=== PATIENT | female | born 1955 | race Caucasian/White ===

== ENCOUNTER 2016-07-02 12:37 | Observation (INO) | payer BC ==
[2016-07-02] MEDS ORDERED: METOCLOPRAMIDE 5 MG/ML 2 ML VIAL IVP STA (13:13)
[2016-07-02] MEDS ORDERED: SODIUM CHLORIDE 0.9% 500 ML IV STA (13:13)
[2016-07-02] MEDS ORDERED: SODIUM CHLORIDE 0.9% 1,000 ML IV STA (13:13)
[2016-07-02] MEDS ORDERED: HYDROmorphone 1 MG/ML 1 ML SYRINGE IVP STA (13:13)
--- NOTE | 2016-07-02 13:25 | ED ---
General Adult HPI - General Chief complaint: Headache Stated complaint: Headache Time Seen by Provider: 07/02/16 13:03 Source: patient, family, RN notes reviewed, old records reviewed Mode of arrival: wheelchair Limitations: no limitations - History of Present Illness Initial comments: If complaint and history of present illness a 16-year-old female with complaint of nausea vomiting headache for 2 days. A lot of pain to the left mastoid region. She reports she has had surgery on that ear in the past. States the headache started at the same time ears started hurting. No drainage. Denies fever. She does have mildly increased headache when she flexes her neck. Patient states she is to have migraine headaches 30 years ago but none since then. No injuries. - Related Data Home Medications Medication Instructions Recorded Confirmed Lisinopril-Hctz 10-12.5 mg 1 tab PO DAILY 11/24/14 07/02/16 [Zestoretic 10-12.5] Previous Rx's Medication Instructions Recorded Atorvastatin [Lipitor] 80 mg PO HS #30 tab 04/26/16 Metoprolol Succinate (ER) [Toprol 25 mg PO DAILY #30 tab.er.24h 04/26/16 XL] Allergies Allergy/AdvReac Type Severity Reaction Status Date / Time Iodinated Contrast Media - Allergy Severe Anaphylaxis Verified 07/02/16 13:27 Oral and [Iodinated Contrast Media - IV Dye] Review of Systems ROS Statement: Those systems with pertinent positive or pertinent negative responses have been documented in the HPI. Review of systems. Photophobia with headache and significant discomfort to the left mastoid region. No shortness of breath or difficulty breathing nausea and vomiting with the headache. No diarrhea. No neuro deficits but being dizzy with the headache and movement. All systems reviewed Past medical problems significant for coronary disease with cardiac catheterization but no stents placed. Hypertension, osteoarthritis, sleep apnea , she reports is ALLERGIC to iodine contrast but has had it after being pretreated. Surgeries glucose ectopy, left ear surgery several times. Hysterectomy, arthroscopic surgery to the knees. Family history father had throat cancer. She does not smoke does not drink. ROS Other: All systems not noted in ROS Statement are negative. Past Medical History Past Medical History: Coronary Artery Disease (CAD), Hypertension, Osteoarthritis (OA), Sleep Apnea/CPAP/BIPAP Additional Past Medical History / Comment(s): States she is allergic to smoke, also states she has 50% heart blockage. History of Any Multi-Drug Resistant Organisms: None Reported Past Surgical History: Cholecystectomy, Ear Surgery, Heart Catheterization, Hysterectomy, Orthopedic Surgery Additional Past Surgical History / Comment(s): R knee surgery, colonoscopy. Past Anesthesia/Blood Transfusion Reactions: Postoperative Nausea & Vomiting ( PONV) Past Psychological History: No Psychological Hx Reported Smoking Status: Never smoker Past Alcohol Use History: None Reported Past Drug Use History: None Reported - Past Family History Father Family Medical History: Cancer Additional Family Medical History / Comment(s): Throat Mother Family Medical History: Liver Disease General Exam - General Exam Comments Initial Comments: General: The patient is awake and alert, appears uncomfortable because of painheadache and left mastoid any which started 2 days ago. Nausea vomiting and dizziness with movement. Vital signs shows temperature 97.8 pulse 98 her story rate 18 pulse ox 99% room air blood pressure 100/52Eye: Pupils are equal, round and reactive to light, extra-ocular movements are intact ; there is normal conjunctiva bilaterally. No signs of icterus. Patient does have photophobia with her headache. Ears, nose, mouth and throat: There are moist mucous membranes and no oral lesions. Left mastoid pain. No evidence of any bruising to the skin. Neck: The neck is supple, there is no tenderness or JVD. Patient has pain to the left mastoid area and left ear. Left and right ear examined no evidence of any drainage or infection. Tenderness with palpation of the left mastoid. Cardiovascular: There is a regular rate and rhythm. No murmur, rub or gallop is appreciated. Respiratory: Lungs are clear to auscultation, respirations are non-labored, breath sounds are equal. No wheezes, stridor, rales, or rhonchi. Gastrointestinal: Soft, non-distended, non-tender abdomen without masses or organomegaly noted. There is no rebound or guarding present. No CVA tenderness. Bowel sounds are unremarkable. Back: There is no tenderness to palpation in the midline. There is no obvious deformity. No rashes noted. Musculoskeletal: Normal ROM, no tenderness, There is no pedal edema. There is no calf tenderness or swelling. Sensation intact. Pulses equal bilaterally 2+. Neurological: CN II-XII intact, There are no obvious motor or sensory deficits. Coordination appears grossly intact. Speech is normal. no focal or lateralizing deficits. She does have migraine type headache with photophobia. Nausea and vomiting. Skin: Skin is warm and dry and no rashes or lesions are noted. Limitations: no limitations Course Vital Signs 07/02/16 07/02/16 12:58 14:53 Temperature 97.8 F Pulse Rate 98 91 Respiratory 18 18 Rate Blood Pressure 100/52 90/48 O2 Sat by Pulse 99 95 Oximetry Medical Decision Making - Medical Decision Making Medical decision making; patient's white count is 4.6 hemoglobin 12 hematocrit of 36, potassium 4.1 with a BUN 30 creatinine 1.7 and GFR of only 30. Glucose is 118. Patient states she is feeling better with IV fluids and pain medication. Patient had dedicated CAT scan of the mastoid air cells because of left ear pain and previous surgery and area discomfort behind the left ear. The radiologist's final impression is no evidence of a CP angle mass lesion on this noncontrast study as read by Dr. Stone CT of the brain was done as well entire report was reviewed his final impression is no acute intracranial abnormality. Mild, chronic white matter ischemic change. Chronic mucoperiosteal thickening involving the anterior ethmoidal air cells. As read by Dr. Stone - Lab Data Result diagrams: 07/02/16 13:40 07/02/16 13:40 Lab Results 07/02/16 07/02/16 Range/Units 13:40 13:40 WBC 4.6 (3.8-10.6) k/uL RBC 3.95 (3.80-5.40) m/uL Hgb 12.1 (11.4-16.0) gm/dL Hct 36.6 (34.0-46.0) % MCV 92.6 (80.0-100.0) fL MCH 30.7 (25.0-35.0) pg MCHC 33.1 (31.0-37.0) g/dL RDW 13.6 (11.5-15.5) % Plt Count 198 (150-450) k/uL Neutrophils % 55 % Lymphocytes % 30 % Monocytes % 7 % Eosinophils % 4 % Basophils % 1 % Neutrophils # 2.5 (1.3-7.7) k/uL Lymphocytes # 1.4 (1.0-4.8) k/uL Monocytes # 0.3 (0-1.0) k/uL Eosinophils # 0.2 (0-0.7) k/uL Basophils # 0.0 (0-0.2) k/uL Sodium 142 (137-145) mmol/L Potassium 4.1 (3.5-5.1) mmol/L Chloride 103 (98-107) mmol/L Carbon Dioxide 25 (22-30) mmol/L Anion Gap 14 mmol/L BUN 30 H (7-17) mg/dL Creatinine 1.74 H (0.52-1.04) mg/dL Est GFR (MDRD) Af Amer 36 (>60 ml/min/1.73 sqM) Est GFR (MDRD) Non-Af 30 (>60 ml/min/1.73 sqM) Glucose 118 H (74-99) mg/dL Calcium 9.7 (8.4-10.2) mg/dL Total Bilirubin 0.7 (0.2-1.3) mg/dL AST 38 H (14-36) U/L ALT 48 (9-52) U/L Alkaline Phosphatase 68 (38-126) U/L Total Protein 7.1 (6.3-8.2) g/dL Albumin 4.1 (3.5-5.0) g/dL Disposition Clinical Impression: Status migrainosus Disposition: ADMITTED IP TO THIS [facility] Condition: Stable
--- NOTE | 2016-07-02 14:06 | CT ---
EXAMINATION TYPE: CT brain wo con DATE OF EXAM: 07/02/2016 1:58 PM COMPARISON: NONE HISTORY: Severe WORRELL, Lt ear pain CT DLP: 1222.3 mGycm Automated exposure control for dose reduction was used. FINDINGS: Central structures are midline. There is no evidence of hydrocephalus. There is mild, diffuse periven tricular white matter lucency, compatible with chronic white matter ischemic change. There is no acut e focal lesion, mass effect or midline shift identified. I do not see evidence of intracranial blood There is chronic mucoperiosteal thickening involving the anterior ethmoidal air cells. No depressed s kull fracture is seen. IMPRESSION: 1. NO ACUTE INTRACRANIAL ABNORMALITY. 2. MILD, CHRONIC WHITE MATTER ISCHEMIC CHANGE. 3. CHRONIC MUCOPERIOSTEAL THICKENING INVOLVING THE ANTERIOR ETHMOIDAL AIR CELLS.
[2016-07-02 14:10] LABS: Basophils % (A) 1 %; CH 31.5; CHCM 34.2; Eosinophils # (A) 0.2 k/uL (0-0.7); Eosinophils % (A) 4 %; HCT 36.6 % (34.0-46.0); HDW 3.14; HGB 12.1 gm/dL (11.4-16.0); Luc # (Auto) 0.19; Luc % (Auto) 4; Lymphocytes # (A) 1.4 k/uL (1.0-4.8); Lymphocytes % (A) 30 %; MCH 30.7 pg (25.0-35.0); MCHC 33.1 g/dL (31.0-37.0); MCV 92.6 fL (80.0-100.0); Mean Platelet Volume 7.9; Monocytes # (A) 0.3 k/uL (0-1.0); Monocytes % (A) 7 %; Neutrophils # (A) 2.5 k/uL (1.3-7.7); Neutrophils % (A) 55 %; RBC 3.95 m/uL (3.80-5.40); RDW 13.6 % (11.5-15.5); WBC 4.6 k/uL (3.8-10.6); WBC (Perox) 4.89
--- NOTE | 2016-07-02 14:10 | CT ---
EXAMINATION TYPE: CT lac wo con DATE OF EXAM: 07/02/2016 1:58 PM COMPARISON: NONE HISTORY: Severe WORRELL, Lt ear pain CT DLP: 1222.3mGycm Automated exposure control for dose reduction was used. FINDINGS: Visualized portions of the paranasal sinuses and mastoids are clear. Middle and inner ear s tructures appear normal. There is no widening of the porus acusticus on either side. No bony destruct rosemarie lesion is seen. No soft tissue CP angle mass lesion is identified on this noncontrast study. IMPRESSION: NO EVIDENCE OF A CP ANGLE MASS LESION ON THIS NONCONTRAST STUDY.
[2016-07-02 14:31] LABS: Calcium 9.7 mg/dL (8.4-10.2); Potassium 4.1 mmol/L (3.5-5.1); Total Bilirubin 0.7 mg/dL (0.2-1.3); Total Protein 7.1 g/dL (6.3-8.2)
[2016-07-02] MEDS ORDERED: ONDANSETRON 4 MG/2 ML VIAL IVP PRN (16:06)
[2016-07-02] MEDS ORDERED: NALOXONE 0.4 MG/ML 1 ML VIAL IV PRN (16:06)
[2016-07-02] MEDS ORDERED: HYDROmorphone 1 MG/ML 1 ML SYRINGE IV PRN (16:06)
[2016-07-02] MEDS: SODIUM CHLORIDE 0.9% 1,000 ML IV SCH (17:06)
[2016-07-02] MEDS: ACETAMINOPHEN TAB 325 MG TAB PO PRN (18:26)
[2016-07-03 07:21] LABS: Basophils % (A) 1 %; CH 31.2; CHCM 33.3; Eosinophils # (A) 0.3 k/uL (0-0.7); Eosinophils % (A) 6 %; HCT 34.3 % (34.0-46.0); HDW 3.21; HGB 11.3 gm/dL (11.4-16.0); Luc # (Auto) 0.12; Luc % (Auto) 3; Lymphocytes # (A) 1.9 k/uL (1.0-4.8); Lymphocytes % (A) 43 %; MCH 31.2 pg (25.0-35.0); MCHC 33.1 g/dL (31.0-37.0); MCV 94.3 fL (80.0-100.0); Mean Platelet Volume 7.5; Monocytes # (A) 0.2 k/uL (0-1.0); Monocytes % (A) 5 %; Neutrophils # (A) 1.9 k/uL (1.3-7.7); Neutrophils % (A) 43 %; RBC 3.63 m/uL (3.80-5.40); RDW 13.6 % (11.5-15.5); WBC 4.4 k/uL (3.8-10.6); WBC (Perox) 4.34
[2016-07-03 07:38] LABS: Calcium 8.9 mg/dL (8.4-10.2); Potassium 3.8 mmol/L (3.5-5.1); Total Bilirubin 0.5 mg/dL (0.2-1.3); Total Protein 6.4 g/dL (6.3-8.2)
[2016-07-03 08:42] VITALS: RESP 16
[2016-07-03] MEDS ORDERED: PANTOPRAZOLE 40 MG/10 ML VIAL IV SCH (09:00)
[2016-07-03] MEDS ORDERED: LISINOPRIL-HCTZ 10-12.5 MG 1 EACH TAB PO SCH (09:00)
[2016-07-03] MEDS ORDERED: METOPROLOL SUCCINATE (ER) 25 MG TAB.ER.24H PO SCH (09:00)
--- NOTE | 2016-07-03 09:59 | P.NPCON ---
History of Present Illness - Reason for Consult acute renal failure - Chief Complaint worrell - History of Present Illness came in with severe WORRELL Left occipital radiating to front of head. Associated with n/v x 3 days. Last migrane was 30 years ago. Imaging negative. Creat was 1.7 and has been getting IVFs and creat improved to 1.2. Her baseline is 1.0. Migranes are better. Review of Systems All systems: negative Constitutional: Reports as per HPI Past Medical History Past Medical History: Coronary Artery Disease (CAD), Deep Vein Thrombosis (DVT) , GERD/Reflux, Hyperlipidemia, Hypertension, Osteoarthritis (OA), Sleep Apnea/ CPAP/BIPAP Additional Past Medical History / Comment(s): States she is allergic to smoke, also states she has 50% heart blockage.stress test , diverticular disease ,kidney stone, pt stated decreased appetite,has lost approx 50# over last 4 months. History of Any Multi-Drug Resistant Organisms: None Reported Past Surgical History: Cholecystectomy, Ear Surgery, Heart Catheterization, Hysterectomy, Orthopedic Surgery Additional Past Surgical History / Comment(s): R knee surgery, colonoscopy. Past Anesthesia/Blood Transfusion Reactions: Postoperative Nausea & Vomiting ( PONV) Past Psychological History: No Psychological Hx Reported Smoking Status: Never smoker Past Alcohol Use History: None Reported Past Drug Use History: None Reported - Past Family History Father Family Medical History: Cancer Additional Family Medical History / Comment(s): Throat Mother Family Medical History: Liver Disease Medications and Allergies Home Medications Medication Instructions Recorded Confirmed Type Lisinopril-Hctz 10-12.5 mg 1 tab PO DAILY 11/24/14 07/02/16 History [Zestoretic 10-12.5] Allergies Allergy/AdvReac Type Severity Reaction Status Date / Time Iodinated Contrast Media - Allergy Severe Anaphylaxis Verified 07/02/16 13:27 Oral and [Iodinated Contrast Media - IV Dye] Physical Exam Vitals: Vital Signs Temp Pulse Pulse Resp BP BP BP 07/03/16 07:50 98.2 F 54 L 16 113/57 07/03/16 04:00 97.9 F 85 18 97/61 07/03/16 00:00 18 07/02/16 21:30 94/53 07/02/16 20:00 18 07/02/16 19:45 98.5 F 94 18 78/52 83/51 07/02/16 18:00 98.2 F 96 18 94/40 07/02/16 17:42 97.6 F 88 20 105/56 07/02/16 17:07 98 18 97/68 Pulse Ox 07/03/16 07:50 97 07/03/16 04:00 97 07/03/16 00:00 07/02/16 21:30 07/02/16 20:00 07/02/16 19:45 94 L 07/02/16 18:00 99 07/02/16 17:42 95 07/02/16 17:07 95 Intake and Output 07/02/16 07/03/16 07/03/16 22:59 06:59 14:59 Intake Total 500 Balance 500 Intake: Amount of Fluid Infused ( 500 ml) Other: # Voids 1 Weight 87.9 kg - Constitutional General appearance: cooperative, no acute distress - Respiratory Respiratory: bilateral: CTA - Cardiovascular Rhythm: regular Heart sounds: normal: S1, S2 leg Peripheral Edema: bilateral: None - Gastrointestinal General gastrointestinal: soft Results - Lab Results Most recent lab results Calcium 8.9 mg/dL (8.4-10.2) 07/03/16 06:28 07/03/16 06:28 07/03/16 06:28 Assessment and Plan Plan: 1. Nonoliguric LARISSA due to volume depletion --improving. 2. Acute Migranes 3. HTN Plan: 1. OK for discharge. 2. OK to continue lisinopril/HCTZ
[2016-07-03] MEDS: ACETAMINOPHEN TAB 325 MG TAB PO PRN (10:19)
[2016-07-03 15:34] VITALS: BMI 37.8
[2016-07-03] MEDS ORDERED: guaiFENesin SYRUP 100MG/5ML 200 MG/10 ML CUP PO PRN (16:50)
[2016-07-03 17:02] VITALS: BP 103/62; PULSE 75; TEMP 99.1
[2016-07-03] MEDS: SODIUM CHLORIDE 0.9% 1,000 ML IV SCH (17:17)
--- NOTE | 2016-07-04 13:12 | HP ---
DATE OF ADMISSION: Migraine headache about 30 years ago, came to the hospital with complaints of headache, along with nausea and vomiting for the past 2 days. Patient apparently has been congested and nasal congestion as well. No associated fever or chills. No recent illness. Patient denied any sick contacts at home. No recent travel. Patient, otherwise, denied any complaints of chest pain, short of breath. Headache is mainly in the frontal area. Patient does have some photophobia when she came to the hospital. No ( ) observed as per the patient. Denied any recent illnesses. Patient did have migraine headaches about 30 years ago but since then she is not taking any medications now. Patient does high blood pressure medications. Patient was also found to have acute kidney injury, most likely prerenal with elevated creatinine level to 1.7 which improved with IV hydration. Nephrology has been consulted as well. Otherwise, the patient symptomatically improved today. REVIEW OF SYSTEMS: CONSTITUTIONAL: No fever. No chills. No weakness or malaise. RESPIRATORY: No cough or sputum production. Patient does have chest condition. No short of breath. CARDIOVASCULAR: No chest pain. No leg swelling. ABDOMEN: No nausea, vomiting or abdominal pain. GENITOURINARY: Negative. ENDOCRINE: Negative. NEUROLOGIC: Patient does have frontal headache, no neck stiffness. No numbness, tingling, no weakness. PSYCHIATRIC: Negative. SKIN: Negative. MUSCULOSKELETAL: Negative. All other all other 14-point review of systems negative except as above. PAST MEDICAL HISTORY: Coronary artery disease, hypertension, osteoarthritis, sleep apnea on CPAP. Patient is allergic to SMOKE, states that she has a 50% heart blockage. PAST SURGICAL HISTORY: Cardiac catheterization, ( ) cholecystectomy, ear surgery, hysterectomy, right knee surgery, colonoscopy. SOCIAL HISTORY: Never a smoker. Denied any alcohol. Denied any drugs or IVDU. FAMILY HISTORY: Father had throat cancer and mother had liver disease. Allergies include IODINATED CONTRAST. HOME MEDICATION: 1. Atorvastatin. 2. Metoprolol. 3. Lisinopril-hydrochlorothiazide. PHYSICAL EXAMINATION: A 60-year-old female lying in bed comfortably. Awake, alert, oriented x3, appears to be in no apparent distress. VITALS: Blood pressure is 97/61, pulse is 85, respirations 18, temperature afebrile, pulse ox 97% on room air. HEENT: Atraumatic, normocephalic. Neck is supple. No JVD. CVS EXAM: S1, S2 heard. No murmurs, no gallop, no rub. LUNGS: Bilateral air entry is present, no wheeze, no crackles. Abdomen is soft, nontender, bowel sounds present. NEURO: Patient is awake, alert, oriented x3. No focal deficits. Cranial nerves are grossly intact. EXTREMITIES: No edema. Pulses are palpable bilaterally, no clubbing or cyanosis. PSYCHIATRIC: Cooperative. LABORATORY DATA: WBC 4.6, hemoglobin 12.1, platelets of 198. Sodium 142, potassium 4.1, chloride 103, bicarb is 25. BUN 30, creatinine 1.74. GFR is 36, AST 38, ALT is 48, total protein is 7.1, albumin 4.1. Internal artery canal CT, no evidence of CP angle mass lesion on this noncontrast study. CT head no acute intracranial abnormality, mild chronic white matter ischemic change. Chronic mucoperiosteal thickening involving anterior ethmoidal air cells. IMPRESSION: 1. Headache most likely sinus headache, unlikely migrainous headache at this time. 2. Acute kidney injury, most likely prerenal. 3. Acute on chronic kidney disease stage III. 4. Hypertension. 5. History of migraine headache 30 years ago. 6. Morbid obesity with a body mass index of 37.8. 7. Deep venous thrombosis prophylaxis. DISCUSSION AND PLAN: A 60-year-old female admitted to the hospital with headache, nausea, vomiting. Will continue with the same medication for nausea, vomiting, will continue with IV fluids and continue with the pain management for headache. Patient will be given nasal decongestants and follow up closely. Nephrology has been consulted for evaluation for acute kidney injury. Will continue current management and further recommendations based on the clinical course.
--- NOTE | 2016-07-05 10:16 | DS ---
DATE OF ADMISSION: 07/02/2016 DATE OF DISCHARGE: 07/03/2016 DISCHARGE DIAGNOSES: 1. Sinus headache, improved at this time. 2. Intractable nausea and vomiting, improved now. 3. Acute kidney injury. 4. Acute on chronic kidney disease Stage III. 5. Hypertension. Blood pressure is controlled at this time. 6. History of migraine headaches ( ) years ago. 7. Morbid obesity with body mass index of 37.8. HOSPITAL COURSE: Ms. Smalls is a 60-year-old female with known history of hypertension, was admitted to the hospital with headache. Patient did have work-up including CT head in ( ) auditory canal CT showed no evidence of acute changes or mass noted. Patient was ( ) for nausea and vomiting. Patient was continued on nasal decongestants. The patient symptomatically improved today. Able to tolerate p.o. diet and headache is much improved now. No nausea or vomiting at this time. The patient was seen by nephrology for acute on chronic kidney disease. The patient hydrated well and renal functions improved with creatinine improved from 1.7 to 1.2. Since the patient is clinically improved as well, patient will be discharged home and follow with primary care physician as an outpatient. Patient was taking hydrochlorothiazide and Lisinopril combination. Hydrochlorothiazide will be discontinued at this time and follow with primary care physician. We will continue with Lisinopril only. Discharge physical examination: 60 -year-old female lying in bed comfortably, awake, alert, oriented, x3. Appears to be in no apparent distress. VITAL SIGNS: Blood pressure is 103/62, pulse is 75, respiratory rate 16, temperature afebrile, pulse ox 97% on room air. LABORATORY DATA: Reviewed. Discharge physical examination done. Discharge medications include: 1. Atorvastatin 80 mg p.o. at bedtime. 2. Metoprolol Toprol-XL 20 mg p.o. daily. 3. Lisinopril 10 mg p.o. daily. The patient will be discharge home in stable condition. Activity as tolerated. Heart healthy diet. Follow with Dr. Frederic North in one to two days.
== END 2016-07-03 19:00 | disposition home or self-care (01) ==
LOC: EC 12:37 → 3OBS 16:06
PROVIDERS: ADMIT Family Medicine; ATTEND Family Medicine
DX: R51 Headache (principal); I12.9 Hypertensive chronic kidney disease with stage 1 through stage 4 chronic kidney disease, or unspecified chronic kidney disease; N18.3 Chronic kidney disease, stage 3 (moderate); N17.9 Acute kidney failure, unspecified; E86.9 Volume depletion, unspecified; E66.01 Morbid (severe) obesity due to excess calories; Z68.37 Body mass index [BMI] 37.0-37.9, adult; R09.81 Nasal congestion; R11.2 Nausea with vomiting, unspecified; M19.90 Unspecified osteoarthritis, unspecified site; G47.30 Sleep apnea, unspecified; K21.9 Gastro-esophageal reflux disease without esophagitis; I25.10 Atherosclerotic heart disease of native coronary artery without angina pectoris; Z86.718 Personal history of other venous thrombosis and embolism; Z79.899 Other long term (current) drug therapy; Z91.041 Radiographic dye allergy status; Z99.89 Dependence on other enabling machines and devices; Z80.8 Family history of malignant neoplasm of other organs or systems
CPT/HCPCS: 36415; 80053 ×2; 85025 ×2; 70450; 70480; 99285; 96374; 96375; 96361 ×3; G0378 ×2; J2765; J1170; C9113

== ENCOUNTER → 2016-08-13 | Outpatient (CLI) | payer BC ==
--- NOTE | 2016-08-13 14:23 | XR ---
EXAMINATION TYPE: XR cervical spine comp DATE OF EXAM: 08/13/2016 1:50 PM COMPARISON: NONE HISTORY: Osteoarthritis. Left-sided head and neck TECHNIQUE: 5 view cervical spine FINDINGS: Foramen are patent. Prevertebral space is normal. Disc heights are preserved. Vertebral bod y heights are preserved. Tip of the odontoid is limited due to overlying occiput. IMPRESSION: 1. Cervical spine is visualized appears normal
== END ==
LOC: RADXRMAIN 13:37
PROVIDERS: ATTEND Otolaryngology
DX: M47.812 Spondylosis without myelopathy or radiculopathy, cervical region (principal)
CPT/HCPCS: 72050

== ENCOUNTER → 2017-04-28 | Outpatient (CLI) | payer BC | END | disposition home or self-care (01) | LOC: LABPAT 12:45 | PROVIDERS: ATTEND Orthopaedic Surgery | DX: Z01.812 Encounter for preprocedural laboratory examination (principal) | CPT/HCPCS: 87070 ==

== ENCOUNTER 2017-08-08 19:18 | Emergency (ER) | payer BC ==
[2017-08-08] MEDS ORDERED: IBUPROFEN 600 MG TAB PO STA (20:13)
[2017-08-08] MEDS ORDERED: ACETAMINOPHEN TAB 500 MG TAB PO STA (20:13)
[2017-08-08 20:43] LABS: Basophils # (A) 0.1 k/uL (0-0.2); Basophils % (A) 1 %; Eosinophils # (A) 0.4 k/uL (0-0.7); Eosinophils % (A) 5 %; HCT 36.1 % (34.0-46.0); Lymphocytes # (A) 2.5 k/uL (1.0-4.8); Lymphocytes % (A) 33 %; MCH 30.2 pg (25.0-35.0); MCHC 33.4 g/dL (31.0-37.0); MCV 90.4 fL (80.0-100.0); Mean Platelet Volume 7.8; Monocytes # (A) 0.5 k/uL (0-1.0); Monocytes % (A) 6 %; Neutrophils # (A) 4.2 k/uL (1.3-7.7); Neutrophils % (A) 54 %; Platelet Count 248 k/uL (150-450); RBC 3.99 m/uL (3.80-5.40); WBC 7.7 k/uL (3.8-10.6)
--- NOTE | 2017-08-08 20:44 | ED ---
General Adult HPI - General Chief complaint: Recheck/Abnormal Lab/Rx Stated complaint: poss infection Time Seen by Provider: 08/08/17 19:40 Source: patient, RN notes reviewed Mode of arrival: wheelchair Limitations: no limitations - History of Present Illness Initial comments: This is a 61-year-old female presents emergency department stating that she had a knee replacement in May. Patient comes in today because she states her right knee is bent much worse painful than normal over the last week she states it is so in full when she tries to move it. Patient states earlier in the day she felt as though her right knee was very hot though wasn't red. Patient states currently she feels like the temperature is gone down. Patient also complains of a sore throat. Patient denies any difficulty breathing shortness of breath per patient denies any cough. Patient denies any chest pain or palpitations per patient denies headache patient denies numbness weakness. Patient denies any abdominal pain patient denies nausea vomiting diarrhea. Patient denies any fevers or chills. - Related Data Home Medications Medication Instructions Recorded Confirmed Celecoxib [CeleBREX] 200 mg PO DAILY 05/13/17 05/25/17 Furosemide [Lasix] 20 mg PO DAILY 05/13/17 05/25/17 Lisinopril-Hctz 10-12.5 mg 1 tab PO QAM 05/13/17 05/25/17 [Zestoretic 10-12.5] traMADol HCL [Ultram] 50 mg PO Q6HR PRN 05/13/17 05/25/17 HYDROcodone/APAP 7.5-325MG [[place] 1 - 2 tab PO Q6HR PRN 05/25/17 05/25/17 7.5] Previous Rx's Medication Instructions Recorded Aspirin 325 mg PO BID #60 tab 05/17/17 Docusate [Colace] 100 mg PO DAILY #30 capsule 05/17/17 Famotidine [Pepcid] 20 mg PO DAILY #30 tablet 05/17/17 Lactulose 20 gm PO DAILY 2 Days 05/25/17 Allergies Allergy/AdvReac Type Severity Reaction Status Date / Time Iodinated Contrast- Oral and Allergy Severe Anaphylaxis Verified 08/08/17 19:47 IV Dye [Iodinated Contrast Media - IV Dye] Review of Systems ROS Statement: Those systems with pertinent positive or pertinent negative responses have been documented in the HPI. ROS Other: All systems not noted in ROS Statement are negative. Past Medical History Past Medical History: Coronary Artery Disease (CAD), Deep Vein Thrombosis (DVT) , GERD/Reflux, Hyperlipidemia, Hypertension, Osteoarthritis (OA), Sleep Apnea/ CPAP/BIPAP Additional Past Medical History / Comment(s): no cpap, diverticular disease, kidney stone,no cpap History of Any Multi-Drug Resistant Organisms: None Reported Past Surgical History: Cholecystectomy, Ear Surgery, Heart Catheterization, Hysterectomy, Orthopedic Surgery Additional Past Surgical History / Comment(s): R knee surgery, colonoscopy. Past Anesthesia/Blood Transfusion Reactions: Postoperative Nausea & Vomiting ( PONV) Past Psychological History: No Psychological Hx Reported Smoking Status: Never smoker Past Alcohol Use History: None Reported Past Drug Use History: None Reported - Past Family History Father Family Medical History: Cancer Additional Family Medical History / Comment(s): Throat,brain Mother Family Medical History: Liver Disease General Exam - General Exam Comments Initial Comments: GENERAL: Patient is well-developed and well-nourished. Patient is nontoxic and well- hydrated and is in no acute distress. ENT: Neck is soft and supple. No significant lymphadenopathy is noted. Oropharynx is clear. Moist mucous membranes. Neck has full range of motion without eliciting any pain. EYES: The sclera were anicteric and conjunctiva were pink and moist. Extraocular movements were intact and pupils were equal round and reactive to light. Eyelids were unremarkable. PULMONARY: Unlabored respirations. Good breath sounds bilaterally. No audible rales rhonchi or wheezing was noted. CARDIOVASCULAR: There is a regular rate and rhythm without any murmurs gallops or rubs. Femoral pulses are equal bilaterally ABDOMEN: Soft and nontender with normal bowel sounds. No palpable organomegaly was noted. There is no palpable pulsatile mass. SKIN: Skin is clear with no lesions or rashes and otherwise unremarkable. NEUROLOGIC: Patient is alert and oriented x3. Cranial nerves II through XII are grossly intact. Motor and sensory are also intact. Normal speech, volume and content. Symmetrical smile. Cerebellar exam grossly intact. MUSCULOSKELETAL: Normal extremities with adequate strength and full range of motion. No lower extremity swelling or edema. No calf tenderness. LYMPHATICS: No significant lymphadenopathy is noted PSYCHIATRIC: Normal psychiatric evaluation. Normal interpersonal interactions appears functionally intact in deals appropriately with others. No signs of depression. No signs of anxiety. No delusions. No hallucinations. Limitations: no limitations Course Vital Signs 08/08/17 08/08/17 08/08/17 19:42 20:30 21:36 Temperature 98.4 F 99.2 F Pulse Rate 97 98 Respiratory 16 18 Rate Blood Pressure 124/60 119/59 O2 Sat by Pulse 97 99 Oximetry Medical Decision Making - Medical Decision Making EKG shows sinus tachycardia 102 bpm LA interval is 138 QRSs 84 QT interval 352 QTC is 458. Patient's EKG shows no ST segment elevation or depression. X-ray of the knee shows no acute abnormality. - Lab Data Result diagrams: 08/08/17 20:32 08/08/17 20:32 Lab Results 08/08/17 08/08/17 08/08/17 Range/Units 20:32 20:32 20:32 WBC 7.7 (3.8-10.6) k/uL RBC 3.99 (3.80-5.40) m/uL Hgb 12.0 (11.4-16.0) gm/dL Hct 36.1 (34.0-46.0) % MCV 90.4 (80.0-100.0) fL MCH 30.2 (25.0-35.0) pg MCHC 33.4 (31.0-37.0) g/dL RDW 14.0 (11.5-15.5) % Plt Count 248 (150-450) k/uL Neutrophils % 54 % Lymphocytes % 33 % Monocytes % 6 % Eosinophils % 5 % Basophils % 1 % Neutrophils # 4.2 (1.3-7.7) k/uL Lymphocytes # 2.5 (1.0-4.8) k/uL Monocytes # 0.5 (0-1.0) k/uL Eosinophils # 0.4 (0-0.7) k/uL Basophils # 0.1 (0-0.2) k/uL PT (9.0-12.0) sec INR (<1.2) APTT (22.0-30.0) sec Sodium 140 (137-145) mmol/L Potassium 3.7 (3.5-5.1) mmol/L Chloride 101 (98-107) mmol/L Carbon Dioxide 27 (22-30) mmol/L Anion Gap 12 mmol/L BUN 23 H (7-17) mg/dL Creatinine 1.30 H (0.52-1.04) mg/dL Est GFR (MDRD) Af Amer 50 (>60 ml/min/1.73 sqM) Est GFR (MDRD) Non-Af 42 (>60 ml/min/1.73 sqM) Glucose 174 H (74-99) mg/dL Plasma Lactic Acid Woody 1.7 (0.7-2.0) mmol/L Calcium 10.4 H (8.4-10.2) mg/dL Total Bilirubin 0.5 (0.2-1.3) mg/dL AST 24 (14-36) U/L ALT 22 (9-52) U/L Alkaline Phosphatase 73 (38-126) U/L Total Protein 7.4 (6.3-8.2) g/dL Albumin 4.4 (3.5-5.0) g/dL Urine Color Urine Appearance (Clear) Urine pH (5.0-8.0) Ur Specific [place] (1.001-1.035) Urine Protein (Negative) Urine Glucose (UA) (Negative) Urine Ketones (Negative) Urine Blood (Negative) Urine Nitrite (Negative) Urine Bilirubin (Negative) Urine Urobilinogen (<2.0) mg/dL Ur Leukocyte Esterase (Negative) Urine RBC (0-5) /hpf Urine WBC (0-5) /hpf Ur Squamous Epith Cells (0-4) /hpf Urine Bacteria (None) /hpf Hyaline Casts (0-2) /lpf Urine Mucus (None) /hpf Group A Strep Rapid (Negative) 08/08/17 08/08/17 08/08/17 Range/Units 20:32 20:33 21:33 WBC (3.8-10.6) k/uL RBC (3.80-5.40) m/uL Hgb (11.4-16.0) gm/dL Hct (34.0-46.0) % MCV (80.0-100.0) fL MCH (25.0-35.0) pg MCHC (31.0-37.0) g/dL RDW (11.5-15.5) % Plt Count (150-450) k/uL Neutrophils % % Lymphocytes % % Monocytes % % Eosinophils % % Basophils % % Neutrophils # (1.3-7.7) k/uL Lymphocytes # (1.0-4.8) k/uL Monocytes # (0-1.0) k/uL Eosinophils # (0-0.7) k/uL Basophils # (0-0.2) k/uL PT 10.5 (9.0-12.0) sec INR 1.1 (<1.2) APTT 24.0 (22.0-30.0) sec Sodium (137-145) mmol/L Potassium (3.5-5.1) mmol/L Chloride (98-107) mmol/L Carbon Dioxide (22-30) mmol/L Anion Gap mmol/L BUN (7-17) mg/dL Creatinine (0.52-1.04) mg/dL Est GFR (MDRD) Af Amer (>60 ml/min/1.73 sqM) Est GFR (MDRD) Non-Af (>60 ml/min/1.73 sqM) Glucose (74-99) mg/dL Plasma Lactic Acid Woody (0.7-2.0) mmol/L Calcium (8.4-10.2) mg/dL Total Bilirubin (0.2-1.3) mg/dL AST (14-36) U/L ALT (9-52) U/L Alkaline Phosphatase (38-126) U/L Total Protein (6.3-8.2) g/dL Albumin (3.5-5.0) g/dL Urine Color Yellow Urine Appearance Cloudy H (Clear) Urine pH 5.0 (5.0-8.0) Ur Specific [place] 1.015 (1.001-1.035) Urine Protein Negative (Negative) Urine Glucose (UA) Negative (Negative) Urine Ketones Negative (Negative) Urine Blood Negative (Negative) Urine Nitrite Negative (Negative) Urine Bilirubin Negative (Negative) Urine Urobilinogen <2.0 (<2.0) mg/dL Ur Leukocyte Esterase Large H (Negative) Urine RBC 2 (0-5) /hpf Urine WBC 36 H (0-5) /hpf Ur Squamous Epith Cells 19 H (0-4) /hpf Urine Bacteria Rare H (None) /hpf Hyaline Casts 26 H (0-2) /lpf Urine Mucus Occasional H (None) /hpf Group A Strep Rapid Negative (Negative) Disposition Clinical Impression: Right knee pain Disposition: HOME SELF-CARE Condition: Good Referrals: Bar Vázquez MD [STAFF PHYSICIAN] - 1-2 days Time of Disposition: 22:23
[2017-08-08 20:51] LABS: INR 1.1 (<1.2); Prothrombin Time 10.5 sec (9.0-12.0)
[2017-08-08 20:56] LABS: Albumin 4.4 g/dL (3.5-5.0); Calcium 10.4 mg/dL (8.4-10.2); Potassium 3.7 mmol/L (3.5-5.1); Total Bilirubin 0.5 mg/dL (0.2-1.3); Total Protein 7.4 g/dL (6.3-8.2)
--- NOTE | 2017-08-08 21:00 | XR ---
EXAMINATION TYPE: XR knee complete RT DATE OF EXAM: 08/08/2017 COMPARISON: 05/16/2017 HISTORY: Knee pain TECHNIQUE: 3 views FINDINGS: There is a right knee prosthesis. Components are in anatomic position. I see no fracture. T here is subcutaneous edema anteriorly. IMPRESSION: Anterior soft tissue swelling. No fracture. No change in position of the prosthesis mark red to last exam.
[2017-08-08 21:51] LABS: Appearance,Urine Cloudy (Clear); Bacteria,Urine Rare /hpf; Bilirubin,Urine Negative (Negative); Blood,Urine Negative (Negative); Color,Urine Yellow; Glucose,Urine (UA) Negative (Negative); Hyaline Casts,Urine 26 /lpf (0-2); Ketones,Urine Negative (Negative); Leukocyte Esterase,Urine Large (Negative); Mucus,Urine Occasional /hpf; Nitrite,Urine Negative (Negative); Protein,Urine Negative (Negative); RBC,Urine 2 /hpf (0-5); Specific Gravity,Urine 1.015 (1.001-1.035); Squamous Epithelial Cell,Urine 19 /hpf (0-4); Urobilinogen,Urine <2.0 mg/dL (<2.0); WBC,Urine 36 /hpf (0-5)
[2017-08-08 22:48] VITALS: BP 109/55; PULSE 100; RESP 16; TEMP 98.6
== END 2017-08-08 22:48 | disposition home or self-care (01) ==
LOC: EC 19:18
DX: M25.561 Pain in right knee (principal); I25.10 Atherosclerotic heart disease of native coronary artery without angina pectoris; I10 Essential (primary) hypertension; M19.90 Unspecified osteoarthritis, unspecified site; G47.30 Sleep apnea, unspecified; Z99.89 Dependence on other enabling machines and devices; Z79.899 Other long term (current) drug therapy; Z91.041 Radiographic dye allergy status; Z96.651 Presence of right artificial knee joint
CPT/HCPCS: 36415; 80053; 81001; 83605; 85025; 85610; 85730; 87040; 87081; 87086; 87430; 93005; 99284

== ENCOUNTER 2017-08-15 14:32 | Inpatient (IN) | payer BC ==
[2017-08-12 11:03] VITALS: BMI 46.8
--- NOTE | 2017-08-14 14:19 | HP ---
HISTORY AND PHYSICAL REASON FOR ADMISSION: Surgery scheduled for 08/15/2017 HISTORY OF PRESENT ILLNESS: Shalonda Smalls is a 61-year-old patient who had previously undergone right total knee arthroplasty on 05/16/2017. She was doing well, but a couple weeks ago she slipped on some ice injuring the knee. She was seen in the office recently and there was a clinical suspicion for patellar tendon rupture as well as abnormal radiographs. I recommended open repair of the probable patellar tendon rupture. I discussed the procedure, risks, complications, benefits, and recovery all in simple layman's terms. Patient agreed to the procedure. Consent was obtained. She had previously been cleared for her total knee arthroplasty by Dr. North. PAST MEDICAL HISTORY: Hypertension, osteoarthritis. PAST SURGICAL HISTORY: Knee arthroscopy, right total knee arthroplasty, hysterectomy. MEDICATIONS ARE: Furosemide, lisinopril, Celebrex. ALLERGIES: IV DYE. SOCIAL HISTORY: Patient denies tobacco use. PHYSICAL EXAMINATION: Physical evaluation of the right knee shows a well-healed anterior incision. Range of motion is -15 to 90 degrees. There is no effusion appreciated. The previous incision is well healed with no evidence an infective process. Her collateral ligaments are stable. Homans and John are negative. Her distal neurovascular exam is intact. Right knee radiographs revealed stable appearing total knee arthroplasty. The patella appears to be an or elevated position. She had previous labs done, which appeared normal. IMPRESSION: 1. Right knee patellar tendon rupture. 2. History of right total knee arthroplasty. 3. Hypertension. PLAN: Right knee patellar tendon repair. Surgery scheduled for 08/15/2017. MMODL / IJN: [id number] /
[~2017-08-15 14:32] MED LIST: ACETAMINOPHEN TAB 500 MG TAB PO ONE; LIDOCAINE 1% 20 ML VIAL (10MG/ML) FOR IV START INTRADERMA PRN; MELOXICAM 7.5 MG TAB PO ONE; MORPHINE SULFATE 2 MG/ML SYRINGE IV PRN; ONDANSETRON 4 MG/2 ML VIAL IVP ONE; TRANEXAMIC ACID 1,000 MG in SODIUM CHLORIDE 0.9% 50 ML IVPB ONE; ceFAZolin IN SWFI 2 GM/20 ML SYRINGE IVP ONE
[2017-08-15] MEDS: LACTATED RINGERS 1,000 ML IV SCH (15:39)
[2017-08-15] MEDS ORDERED: MIDAZOLAM 2 MG/2 ML VIAL IV ONE (15:51)
[2017-08-15] MEDS ORDERED: ROPIVACAINE 246.25 MG, EPINEPHrine 0.5 MG, KETOROLAC 30 MG, cloNIDine HCL/PF 80 MCG, WA... MISCELLANE ONE ×5 (16:18)
[2017-08-15] MEDS ORDERED: fentaNYL (PF) 50 MCG/ML 2 ML AMP IV ONE (16:36)
[2017-08-15] MEDS ORDERED: SUCCINYLCHOLINE CHLORIDE 100 MG/5 ML SYR IV ONE (16:55)
[2017-08-15] MEDS ORDERED: LIDOCAINE 1% INJ 10MG/ML (20 ML MDV) ONE (16:55)
[2017-08-15] MEDS ORDERED: HYDROmorphone (PF) 1 MG/ML ONE (16:55)
[2017-08-15] MEDS ORDERED: PROPOFOL 10 MG/ML 20 ML VIAL IV ONE (16:55)
[2017-08-15] MEDS ORDERED: KETAMINE 10 MG/ML 20 ML VIAL ONE (16:55)
[2017-08-15] MEDS ORDERED: fentaNYL (PF) 50 MCG/ML 2 ML AMP ONE (16:55)
[2017-08-15] MEDS ORDERED: MIDAZOLAM 2 MG/2 ML VIAL ONE (16:55)
[2017-08-15] MEDS ORDERED: ceFAZolin 3,000 MG in SODIUM CHLORIDE 0.9% IRRIGATIO 3,000 ML IRRIGATION ONE (17:24)
[2017-08-15] MEDS ORDERED: MORPHINE SULFATE 4 MG/ML SYRINGE IVP PRN ×2 (18:07)
[2017-08-15] MEDS ORDERED: ONDANSETRON 4 MG/2 ML VIAL IVP PRN (18:07)
[2017-08-15] MEDS ORDERED: NALOXONE 0.4 MG/ML 1 ML VIAL IV PRN (18:07)
[2017-08-15] MEDS ORDERED: MAGNESIUM HYDROXIDE 2,400 MG/10 ML CUP PO PRN (18:07)
[2017-08-15] MEDS ORDERED: HYDROcodone/APAP 7.5-325MG 1 EACH TAB PO PRN (18:07)
[2017-08-15] MEDS ORDERED: traMADol 50 MG TAB PO PRN (18:07)
[2017-08-15] MEDS ORDERED: ACETAMINOPHEN TAB 325 MG TAB PO PRN (18:07)
--- NOTE | 2017-08-15 18:09 | P.OP ---
Date of Procedure: 08/15/17 Preoperative Diagnosis: Right knee patellar tendon tear Postoperative Diagnosis: Right knee medial retinacular/capsular tear Procedure(s) Performed: Repair right knee medial retinacular/capsular tear Implants: None Anesthesia: phuong GONZALEZ Surgeon: Felice Zendejas [employer] Specialist #1: Jon Logan Estimated Blood Loss (ml): 25 Pathology: none sent Condition: stable Disposition: PACU Indications for Procedure: 61-year-old patient seen with a right knee injury after previously having undergone total knee arthroplasty. Clinically was suspicious for a patellar tendon tear. I recommended repair. Patient was agreeable and consent was obtained. Operative Findings: see description of procedure Description of Procedure: The patient was taken to the operative suite. The patient underwent a general anesthetic by the department of anesthesia. A well-padded tourniquet placed proximal right lower extremity. The patient received preoperative IV antibiotics. The right lower extremity was now prepped and draped in the normal sterile orthopedic fashion. The tourniquet was insufflated to 300. An incision was made over the previous cicatrix sharply through skin. I dissected down to the capsule. I immediately noted a defect/tear in the medial retinaculum/capsule. We evacuated some synovial fluid. We examine the patellar tendon and it appeared intact. We now irrigated the wound and joint with pulse lavage mechanical irrigation. We now repaired that medial retinacular/capsular tear with Ethibond. This was reinforced with Vicryl suture. The knee was taken through range of motion with a good stable medial capsular/retinacular repair noted. We again irrigated the wound with pulse lavage mechanical irrigation. We infiltrated the subcutaneous soft tissues with local analgesic. The subcu cutaneous soft tissues and our repair with 2-0 Vicryl in layers. The skin was approximated with skin gemma followed by Dermabond. Sterile dressings were applied. Tourniquet was released with immediate capillary refill of all digits noted. We applied a sterile web bone Joshua bandage. The patient was awakened, transferred to a bed and recovery stable condition. Jaspreet HACKETT assisted with the procedure.
[2017-08-15] MEDS: HYDROcodone/APAP 7.5-325MG 1 EACH TAB PO PRN (20:24)
[2017-08-15] MEDS ORDERED: SENNOSIDES-DOCUSATE SODIUM 1 EACH TAB PO SCH (21:00)
[2017-08-15] MEDS: ceFAZolin IN SWFI 2 GM/20 ML SYRINGE IVP SCH (23:18)
[2017-08-16] MEDS: HYDROcodone/APAP 7.5-325MG 1 EACH TAB PO PRN ×3 (02:03→13:02)
[2017-08-16 07:19] LABS: Basophils % (A) 0 %; Eosinophils % (A) 0 %; HCT 32.9 % (34.0-46.0); HGB 10.8 gm/dL (11.4-16.0); Lymphocytes # (A) 0.9 k/uL (1.0-4.8); Lymphocytes % (A) 11 %; MCHC 32.9 g/dL (31.0-37.0); MCV 91.2 fL (80.0-100.0); Mean Platelet Volume 8.2; Monocytes # (A) 0.2 k/uL (0-1.0); Monocytes % (A) 3 %; Neutrophils # (A) 6.8 k/uL (1.3-7.7); Neutrophils % (A) 86 %; Platelet Count 209 k/uL (150-450); RBC 3.61 m/uL (3.80-5.40); RDW 13.6 % (11.5-15.5)
[2017-08-16] MEDS ORDERED: FAMOTIDINE 20 MG TAB PO SCH (09:00)
[2017-08-16] MEDS ORDERED: ENOXAPARIN 30 MG/0.3 ML SYRINGE SQ SCH (09:00)
[2017-08-16] MEDS: LACTATED RINGERS 1,000 ML IV SCH (09:08)
[2017-08-16] MEDS: ceFAZolin IN SWFI 2 GM/20 ML SYRINGE IVP SCH (09:09)
--- NOTE | 2017-08-16 10:26 | P.CONS ---
History of Present Illness - Reason for Consult Consult date: 08/16/17 Medical management - Chief Complaint s/p right knee patellar tendon rupture repair - History of Present Illness 61-year-old female who originally underwent right total knee arthroplasty on 05/16/2017. The patient did not have any complications postoperatively until she slipped and fell on the ice. She was seen by her orthopedic surgeon and was found to have suspicion for patellar tendon rupture. The patient underwent elective open repair of patellar tendon rupture of the right knee. Dr. North was consulted for medical management. The patient is a history of osteoarthritis, right total knee arthroplasty, hyperlipidemia, hypertension, and gastroesophageal reflux disease. The patient has a history of obstructive sleep apnea but does not wear a CPAP due to severe claustrophobia. The patient was seen and examined at the bedside on rounds with Dr. North. Patient is awake and alert. She states her pain is tolerable. Denies shortness of breath or chest pain. Tolerating oral intake. She is afebrile. Blood pressure is stable with a last reading of 117/72. She remains on 3 L nasal cannula with oxygen saturations greater than 92%. Review of Systems GENERAL: Patient denies fever. Denies chills. EYES: Denies blurred vision. Denies vision changes. Denies eye pain. EARS, NOSE, MOUTH, & THROAT: Denies headache. Denies sore throat. Denies ear pain. RESPIRATORY: Denies cough. Denies shortness of breath. Denies sputum production. Denies hemoptysis. CARDIOVASCULAR: Denies chest pain or pressure. Denies palpitations. Denies arrhythmias. GASTROINTESTINAL: Denies abdominal pain. Denies diarrhea. Denies constipation. Denies nausea. Denies vomiting. Denies heartburn. Denies blood in the stool. GENITOURINARY: Denies urinary frequency. Denies burning. Denies dysuria. Denies cloudy urine. Denies blood in the urine. MUSCULOSKELETAL: Denies myalgias. Denies joint swelling. Denies decreased range of motion beyond patients baseline. INTEGUMENTARY: Denies pruitis. Denies rash. PSYCHIATRIC: Denies suicidal or homicial ideations. ENDOCRINE: Denies weight change. Denies polydipsia. Denies polyuria. HEMATOLOGIC: Denies bleeding disorders. Past Medical History Past Medical History: Deep Vein Thrombosis (DVT), GERD/Reflux, Hyperlipidemia, Hypertension, Osteoarthritis (OA), Sleep Apnea/CPAP/BIPAP Additional Past Medical History / Comment(s): no cpap, diverticular disease, HX kidney stone, History of Any Multi-Drug Resistant Organisms: None Reported Past Surgical History: Cholecystectomy, Ear Surgery, Heart Catheterization, Hysterectomy, Joint Replacement, Orthopedic Surgery Additional Past Surgical History / Comment(s): RT TOTAL KNEE, R knee SCOPE, LEFT EAR PATCH colonoscopy. Past Anesthesia/Blood Transfusion Reactions: Postoperative Nausea & Vomiting ( PONV) Past Psychological History: No Psychological Hx Reported Smoking Status: Never smoker Past Alcohol Use History: None Reported Past Drug Use History: None Reported - Past Family History Father Family Medical History: Cancer Additional Family Medical History / Comment(s): Throat,brain Mother Family Medical History: Liver Disease Medications and Allergies Home Medications Medication Instructions Recorded Confirmed Type Furosemide [Lasix] 20 mg PO DAILY 05/13/17 08/15/17 History Lisinopril-Hctz 10-12.5 mg 1 tab PO QAM 05/13/17 08/15/17 History [Zestoretic 10-12.5] Allergies Allergy/AdvReac Type Severity Reaction Status Date / Time Iodinated Contrast- Oral and Allergy Severe Anaphylaxis Verified 08/15/17 15:07 IV Dye [Iodinated Contrast Media - IV Dye] [id number] Reductase Allergy THROAT Verified 08/15/17 15:07 Inhibitor Swelling hydrocodone [From [place]] AdvReac Nausea & Verified 08/15/17 15:07 Vomiting Physical Exam Vitals: Vital Signs Temp Pulse Pulse Pulse Resp BP BP 08/16/17 08:51 96 F L 100 16 117/72 08/16/17 01:27 97.8 F 99 19 136/64 08/15/17 20:30 114 H 100/64 08/15/17 20:15 116 H 104/61 08/15/17 20:00 114 H 105/63 08/15/17 19:45 118 H 103/64 08/15/17 19:30 113 H 114/70 08/15/17 19:15 111 H 111/74 08/15/17 19:00 98.0 F 115 H 17 110/78 08/15/17 18:50 116 H 18 146/65 08/15/17 18:35 117 H 18 136/58 08/15/17 18:20 115 H 18 140/58 08/15/17 18:05 96.8 F L 109 H 18 149/75 08/15/17 15:18 98.3 F 99 16 141/65 Pulse Ox 08/16/17 08:51 96 08/16/17 01:27 97 08/15/17 20:30 08/15/17 20:15 08/15/17 20:00 08/15/17 19:45 08/15/17 19:30 08/15/17 19:15 08/15/17 19:00 97 08/15/17 18:50 94 L 08/15/17 18:35 95 08/15/17 18:20 96 08/15/17 18:05 98 08/15/17 15:18 96 Intake and Output 08/15/17 08/16/17 08/16/17 22:59 06:59 14:59 Intake Total 801 320 220 Output Total 25 Balance 776 320 220 Intake: IV 801 Intake, IV Titration 320 Amount Lactated Ringers 1,000 ml 320 @ 40 mls/hr IV .Q24H AMPARO Rx#:[id number] Oral 220 Output: Estimated Blood Loss 25 Other: Voiding Method Toilet # Voids 1 2 GENERAL: This is a 61-year-old female in no apparent distress at the time of examination. Pleasant and cooperative. HEENT: Head is atraumatic, normocephalic. Pupils are equal, round, and reactive to light. Sclerae anicteric. Conjunctivae are clear. Mucus membranes of the mouth are moist. Neck is supple. RESPIRATORY: Clear to ausculation, diminished at the bases. No wheezes, rales, or rhonchi. No use of accessory muscles. Patient maintaining oxygen saturation greater than 92% on 3 L nasal cannula. No chest wall tenderness is noted on palpation or with deep breathing. CARDIOVASCULAR: Regular rate and rhythm. S1 and S2 noted. No systolic or diastolic murmur auscultated. No JVD noted. No S3 or S4 noted. GASTROINTESTINAL: No distention noted. Abdomen soft and round. Normal active bowel sounds auscultated x 4 quadrants. No pain or tenderness noted upon palpation. INTEGUMENTARY: Dressing to right knee noted. Clean dry and intact. No drainage noted. No cyanosis. No jaundice. No rashes noted. No cellulitis noted. EXTREMITIES: 2+ peripheral pulses. Bilateral trace lower extremity edema. No calf tenderness noted. NEUROLOGIC: Cranial nerves II-XII intact. PSYCHIATRIC: Awake, alert, and oriented X 3. Appropriate affect. Intact judgement and insight. Results CBC & Chem 7: 08/16/17 06:29 Labs: Abnormal Lab Results - Last 24 Hours (Table) 08/16/17 Range/Units 06:29 RBC 3.61 L (3.80-5.40) m/uL Hgb 10.8 L (11.4-16.0) gm/dL Hct 32.9 L (34.0-46.0) % Lymphocytes # 0.9 L (1.0-4.8) k/uL Assessment and Plan Plan: ASSESSMENT: S/P right knee patellar tendon repair, POD #1 Osteoarthritis, s/p right total knee arthroplasty in May 2017 Hypoxia, requiring supplemental oxygen via nasal cannula at 3 L History of sleep apnea, patient unable to wear CPAP secondary to severe claustrophobia Essential hypertension Hyperlipidemia Morbid obesity: BMI 46.9 PLAN: Continue postoperative care per orthopedics Patient is requesting home oxygen since she is unable to tolerate CPAP and states that she has worn home oxygen in the past Perform home oxygen assessment Wean oxygen as tolerated Home meds as appropriate Pain control Activity as tolerated Incentive spirometer 10 times hour while awake Monitor labs GI prophylaxis: Pepcid 20 mg by mouth daily DVT prophylaxis: Lovenox 30 mg subcu every 12 hours Monitor vital signs and address as appropriate Patient is cleared for discharge from a medical standpoint when cleared with orthopedics Patient may require home oxygen at the time of discharge depending on home oxygen assessment Nurse practitioner note has been reviewed by physician. Signing provider agrees with the documented findings, assessment, and plan of care.
--- NOTE | 2017-08-16 10:53 | P.PN ---
Subjective Progress Note Date: 08/16/17 Principal diagnosis: Status post open repair medial retinacular right knee Patient seen today resting in her hospital bed, she appears comfortable. She has ambulated well with physical therapy, her pain is well-controlled. She denies any headaches, lightheadedness, chest pain or shortness of breath. Objective - Vital Signs Vital signs: Vital Signs Temp 96 F L 08/16/17 08:51 Pulse 100 08/16/17 08:51 Resp 16 08/16/17 08:51 BP 117/72 08/16/17 08:51 Pulse Ox 96 08/16/17 08:51 Intake & Output 08/15/17 08/16/17 08/16/17 18:59 06:59 18:59 Intake Total 801 320 220 Output Total 25 Balance 776 320 220 Intake: IV 801 Intake, IV Titration 320 Amount Lactated Ringers 1,000 ml 320 @ 40 mls/hr IV .Q24H AMPARO Rx#:[id number] Oral 220 Output: Estimated Blood Loss 25 Other: Voiding Method Toilet # Voids 2 - Exam Right lower extremity: Incision is clean, dry, and intact. The gemma are in good condition. There is minimal soft tissue swelling and ecchymosis surrounding the medial and lateral aspects of the incision. Calf is soft, no tenderness with palpation. Plantar flexion, dorsiflexion, EHL, FHL are intact. Sensory exam to light touch throughout the extremity is intact, dorsal pedis pulses 2+. - Labs CBC & Chem 7: 08/16/17 06:29 Labs: Abnormal Lab Results - Last 24 Hours (Table) 08/16/17 Range/Units 06:29 RBC 3.61 L (3.80-5.40) m/uL Hgb 10.8 L (11.4-16.0) gm/dL Hct 32.9 L (34.0-46.0) % Lymphocytes # 0.9 L (1.0-4.8) k/uL Assessment and Plan Plan: Assessment: 1. Postop day #1 status post open repair medial retinacular tear right knee Plan: 1. Pain control, we'll discharge home on oral medication 2. GI and DVT prophylaxis, discharged home on aspirin 325 mg twice a day and absent 20 mg 3. Patient's history of constipation, we'll discharge on Colace and milk of magnesia 4. Medical recommendations 5. Home therapy and nursing after discharge 6. Discharge planning: Patient will likely be discharged home today Time with Patient: Less than 30
--- NOTE | 2017-08-16 10:59 | P.DS ---
Providers Date of admission: 08/15/17 14:32 Expected date of discharge: 08/16/17 Attending physician: Felice Zendejas Consults: 08/15/17 18:11 Consult Physician Routine Consulting Provider: Frederic North Reason/Comments: Medical Management Do you want consulting provider notified?: Yes Primary care physician: Frederic North [facility] Course: Date of admission: 08/15/2017 Date of discharge: 08/16/2017 Admission diagnosis: Status post open repair right knee medial retinacular tear Discharge diagnosis: Same Attending physician: Dr. Zendejas Surgical procedures: Open repair right knee medial retinacular tear Brief history: Patient is a 61-year-old female who is a history of a previous right total knee arthroplasty done in May [address] Zendejas. Patient had been seen in the outpatient setting with regards to increasing pain and swelling in the right knee and difficulty with extension. There is concern over injury to the right knee patellar tendon, she is booked for a elective repair of the right patellar tendon. Hospital course: Details of patient's surgery can be found in operative report. Patient tolerated the procedure well and was subsequently transported to orthopedic floor. Patient's orthopeidc and medical care was provided daily. Patient had daily laboratory tests performed for evaluation of overall blood counts. Patient had daily physical therapy to include strengthening range of motion as well as education with walker ambulation. Patient was treated with Lovenox for their postoperative DVT prophylaxis during their inpatient stay. Patient was noted to have a relatively uneventful postoperative course. Patient reported satisfactory pain control with oral pain medications by postoperative day 0. Patient showed satisfactory progress with physical therapy. Patient moved steadily through the program and had no difficulty meeting the goals by postoperative day 1. Given patient's otherwise satisfactory course and having met physical therapy goals, plan is to discharge patient home on postoperative day 1. Discharge condition/disposition: Patient will be discharged home in stable condition. Discharge medications: Instructions are given on resumption of patient's normal daily medications per primary care recommendation, in addition patient will be prescribed Baker 7.5mg/325mg, Milk of Magnesia 400mg/5mL, aspirin 325mg, pepcid 20mg. Discharge instructions: 1. Wound care and infection precautions, keep incision dry and covered while showering, no lotions, creams, moisturizers. No soaking, tubs, pools, hottubs. Do not scrub over the incision. 2. Weight-bear as tolerated with walker / cane until follow-up. 3. Ice and elevate when necessary. Do not exceed 20 minutes per hour with ice pack. 4. Utilize compression sleeve until seen at first follow up appointment. 5. Visiting nursing care. 6. Home physical therapy. 7. Pain meds and anticoagulants per prescription. 8. Pain medication has potential to cause constipation. Increase oral fluid and fiber intake. Contact primary care provider if you have not had a bowel movement within 48 hours after discharge 9. No anti-inflammatory medication until discussed at first post operative visit, this including Motrin, Aleve, Mobic, Diclofenac. 10. Follow up in office at 2 weeks postop with Jaspreet Logan PA-C 11. Follow up with your primary care doctor 7-10 days after discharge. 12. Contact [facility] with any questions, . Procedures: Open repair medial retinacular tear right knee Patient Condition at Discharge: Good Plan - Discharge Summary Discharge Rx Participant: No New Discharge Prescriptions: New Magnesium Hydroxide [Milk of Magnesia] 400 mg PO Q6HR 14 Days #500 ml Aspirin 325 mg PO BID #30 tab Famotidine [Pepcid] 20 mg PO DAILY #30 tablet HYDROcodone/APAP 7.5-325MG [Baker 7.5] 1 each PO Q6HR PRN #40 tab PRN Reason: Pain No Action Lisinopril-Hctz 10-12.5 mg [Zestoretic 10-12.5] 1 tab PO QAM Furosemide [Lasix] 20 mg PO DAILY Discharge Medication List Furosemide [Lasix] 20 mg PO DAILY 05/13/17 [History] Lisinopril-Hctz 10-12.5 mg [Zestoretic 10-12.5] 1 tab PO QAM 05/13/17 [History] Aspirin 325 mg PO BID #30 tab 08/16/17 [Rx] Famotidine [Pepcid] 20 mg PO DAILY #30 tablet 08/16/17 [Rx] HYDROcodone/APAP 7.5-325MG [Baker 7.5] 1 each PO Q6HR PRN #40 tab 08/16/17 [Rx] Magnesium Hydroxide [Milk of Magnesia] 400 mg PO Q6HR 14 Days #500 ml 08/16/17 [ Rx] Follow up Appointment(s)/Referral(s): Frederic North DO [Primary Care Provider] - 09/01/17 1:40 pm Jon Logan PAC [PHYSICIAN PAYROLL EXAMINER] - 08/31/17 2:10 pm Activity/Diet/Wound Care/Special Instructions: Orthopedic Discharge Instructions: 1. Wound care and infection precautions, keep incision dry and covered while showering, no lotions, creams, moisturizers. No soaking, pools, hot tubs. Do not scrub over incision. 2. Weight-bear as tolerated with walker / cane until follow-up. 3. Ice and elevate when necessary. Do not exceed 20 minutes per hour with ice pack. 4. Utilize compression sleeve until seen at first follow up appointment. 5. Visiting nursing care. 6. Home physical therapy. 7. Pain meds and anticoagulants per prescription. 8. Pain medication has potential to cause constipation. Increase oral fluid and fiber intake. Contact primary care provider if you have not had a bowel movement within 48 hours after discharge. 9. No anti-inflammatory medication until discussed at first post operative visit, this including Motrin, Aleve, Mobic, Diclofenac. 10. Follow up in office at 2 weeks postop with Jaspreet Logan PA-C 11. Follow up with your primary care doctor 7-10 days after discharge. 12. Contact [facility] with any questions, . Discharge Disposition: HOME WITH HOME HEALTH SERVICES
[2017-08-16 14:33] VITALS: BP 111/71; PULSE 85; RESP 15; TEMP 98.2
== END 2017-08-16 16:53 | disposition home health service (06) | DRG 502 ==
LOC: 2ORMAIN 14:32 → 3SUR 18:00
PROVIDERS: ADMIT Orthopaedic Surgery; ATTEND Orthopaedic Surgery
PROC: 0LQQ0ZZ Repair Right Knee Tendon, Open Approach (ICD-10-PCS; principal; 2017-08-15 18:30)
DX: S76.111A Strain of right quadriceps muscle, fascia and tendon, initial encounter (principal); E66.01 Morbid (severe) obesity due to excess calories; E78.5 Hyperlipidemia, unspecified; F40.240 Claustrophobia; G47.33 Obstructive sleep apnea (adult) (pediatric); I10 Essential (primary) hypertension; K21.9 Gastro-esophageal reflux disease without esophagitis; Z96.651 Presence of right artificial knee joint; M19.90 Unspecified osteoarthritis, unspecified site; Z90.710 Acquired absence of both cervix and uterus; Z88.5 Allergy status to narcotic agent; Z91.041 Radiographic dye allergy status; W00.0XXA Fall on same level due to ice and snow, initial encounter; R09.02 Hypoxemia
CPT/HCPCS: 85025

== ENCOUNTER 2017-11-25 21:01 | Observation (INO) | payer BC ==
[2017-11-25] MEDS ORDERED: KETOROLAC 60 MG/2 ML VIAL IVP STA (21:21)
--- NOTE | 2017-11-25 21:24 | ED ---
General Adult HPI - General Chief complaint: Abdominal Pain Stated complaint: Abd pain Time Seen by Provider: 11/25/17 21:01 Source: patient, RN notes reviewed Mode of arrival: wheelchair Limitations: no limitations - History of Present Illness Initial comments: This is a 61-year-old female presents emergency Department with a past medical history significant for diverticulitis. Patient comes in today stating she's been having abdominal pain in the middle of her abdomen for a week. Patient states she got much worse today. Patient states she's also experiencing some bilateral back pain in the area of her kidneys. Patient denies any nausea or vomiting. Patient states she is eating some. Patient states she has had some episodes of diarrhea however. Patient denies any fever or chills. Patient denies any significant abdominal surgeries. Patient denies any chest pain difficulty breathing or shortness of breath. Patient denies any recent cough. Patient denies headache patient denies numbness weakness patient denies lightheadedness dizziness or near syncopal episode. - Related Data Home Medications Medication Instructions Recorded Confirmed Furosemide [Lasix] 20 mg PO DAILY 05/13/17 11/25/17 Lisinopril-Hctz 10-12.5 mg 1 tab PO QAM 05/13/17 11/25/17 [Zestoretic 10-12.5] Acetaminophen Tab [Tylenol Tab] 500 - 1,000 mg PO Q6HR PRN 11/25/17 11/25/17 Allergies Allergy/AdvReac Type Severity Reaction Status Date / Time Iodinated Contrast- Oral and Allergy Severe Anaphylaxis Verified 11/25/17 22:36 IV Dye [Iodinated Contrast Media - IV Dye] Mgvyfpc-Nye-Xjx Reductase Allergy THROAT Verified 11/25/17 22:36 Inhibitor Swelling hydrocodone [From [place]] AdvReac Nausea & Verified 11/25/17 22:36 Vomiting Review of Systems ROS Statement: Those systems with pertinent positive or pertinent negative responses have been documented in the HPI. ROS Other: All systems not noted in ROS Statement are negative. Past Medical History Past Medical History: Deep Vein Thrombosis (DVT), GERD/Reflux, Hyperlipidemia, Hypertension, Osteoarthritis (OA), Sleep Apnea/CPAP/BIPAP Additional Past Medical History / Comment(s): no cpap, diverticular disease, HX kidney stone, History of Any Multi-Drug Resistant Organisms: None Reported Past Surgical History: Cholecystectomy, Ear Surgery, Heart Catheterization, Hysterectomy, Joint Replacement, Orthopedic Surgery Additional Past Surgical History / Comment(s): RT TOTAL KNEE, R knee SCOPE, left knee. LEFT EAR PATCH colonoscopy. Past Anesthesia/Blood Transfusion Reactions: Postoperative Nausea & Vomiting ( PONV) Past Psychological History: No Psychological Hx Reported Smoking Status: Never smoker Past Alcohol Use History: None Reported Past Drug Use History: None Reported - Past Family History Father Family Medical History: Cancer Additional Family Medical History / Comment(s): Throat,brain Mother Family Medical History: Liver Disease General Exam - General Exam Comments Initial Comments: GENERAL: Patient is well-developed and well-nourished. Patient is nontoxic and well- hydrated and is in mild distress. ENT: Neck is soft and supple. No significant lymphadenopathy is noted. Oropharynx is clear. Moist mucous membranes. Neck has full range of motion without eliciting any pain. EYES: The sclera were anicteric and conjunctiva were pink and moist. Extraocular movements were intact and pupils were equal round and reactive to light. Eyelids were unremarkable. PULMONARY: Unlabored respirations. Good breath sounds bilaterally. No audible rales rhonchi or wheezing was noted. CARDIOVASCULAR: There is a regular rate and rhythm without any murmurs gallops or rubs. ABDOMEN: Patient has some slight tenderness in the epigastric area no rebound or guarding.. No palpable organomegaly was noted. There is no palpable pulsatile mass. SKIN: Skin is clear with no lesions or rashes and otherwise unremarkable. NEUROLOGIC: Patient is alert and oriented x3. Cranial nerves II through XII are grossly intact. Motor and sensory are also intact. Normal speech, volume and content. Symmetrical smile. MUSCULOSKELETAL: Normal extremities with adequate strength and full range of motion. No lower extremity swelling or edema. No calf tenderness. Patient has minimal CVA tenderness PSYCHIATRIC: Normal psychiatric evaluation. Limitations: no limitations Course Vital Signs 11/25/17 11/25/17 11/26/17 21:12 22:13 00:00 Temperature 98.8 F 98.1 F Pulse Rate 88 73 78 Respiratory 20 34 H 18 Rate Blood Pressure 129/83 137/63 O2 Sat by Pulse 99 94 L 98 Oximetry Medical Decision Making - Medical Decision Making CAT scan of the abdomen showed no findings that would explain the patient's pain. I went back into reevaluate the patient she continued to have left upper epigastric abdominal pain there were no signs of rebound or guarding I spoke with the [facility] hospitalist and admitted the patient to them and consult to Dr. Alfonso - Lab Data Result diagrams: 11/25/17 22:15 11/25/17 22:15 Lab Results 11/25/17 11/25/17 11/25/17 Range/Units 21:58 22:15 22:15 WBC 7.8 (3.8-10.6) k/uL RBC 4.14 (3.80-5.40) m/uL Hgb 12.7 (11.4-16.0) gm/dL Hct 37.5 (34.0-46.0) % MCV 90.4 (80.0-100.0) fL MCH 30.6 (25.0-35.0) pg MCHC 33.9 (31.0-37.0) g/dL RDW 13.6 (11.5-15.5) % Plt Count 192 (150-450) k/uL Neutrophils % 58 % Lymphocytes % 33 % Monocytes % 5 % Eosinophils % 3 % Basophils % 0 % Neutrophils # 4.5 (1.3-7.7) k/uL Lymphocytes # 2.6 (1.0-4.8) k/uL Monocytes # 0.4 (0-1.0) k/uL Eosinophils # 0.2 (0-0.7) k/uL Basophils # 0.0 (0-0.2) k/uL Sodium 140 (137-145) mmol/L Potassium 4.1 (3.5-5.1) mmol/L Chloride 104 (98-107) mmol/L Carbon Dioxide 25 (22-30) mmol/L Anion Gap 11 mmol/L BUN 36 H (7-17) mg/dL Creatinine 1.40 H (0.52-1.04) mg/dL Est GFR (CKD-EPI)AfAm 47 (>60 ml/min/1.73 sqM) Est GFR (CKD-EPI)NonAf 41 (>60 ml/min/1.73 sqM) Glucose 153 H (74-99) mg/dL Calcium 9.5 (8.4-10.2) mg/dL Total Bilirubin 0.4 (0.2-1.3) mg/dL AST 17 (14-36) U/L ALT 27 (9-52) U/L Alkaline Phosphatase 88 (38-126) U/L Total Protein 6.6 (6.3-8.2) g/dL Albumin 4.2 (3.5-5.0) g/dL Amylase 70 (30-110) U/L Lipase 210 (23-300) U/L Urine Color Light Yellow Urine Appearance Clear (Clear) Urine pH 5.0 (5.0-8.0) Ur Specific [place] 1.011 (1.001-1.035) Urine Protein Negative (Negative) Urine Glucose (UA) Negative (Negative) Urine Ketones Negative (Negative) Urine Blood Negative (Negative) Urine Nitrite Negative (Negative) Urine Bilirubin Negative (Negative) Urine Urobilinogen <2.0 (<2.0) mg/dL Ur Leukocyte Esterase Large H (Negative) Urine RBC 1 (0-5) /hpf Urine WBC 18 H (0-5) /hpf Ur Squamous Epith Cells 5 H (0-4) /hpf Amorphous Sediment Rare H (None) /hpf Hyaline Casts 7 H (0-2) /lpf Urine Mucus Rare H (None) /hpf Disposition Clinical Impression: Abdominal pain Disposition: ADMITTED IP TO THIS HOSP Referrals: Frederic North DO [Primary Care Provider] - 1-2 days Time of Disposition: 00:40
[2017-11-25 22:19] LABS: Basophils % (A) 0 %; Eosinophils # (A) 0.2 k/uL (0-0.7); Eosinophils % (A) 3 %; HCT 37.5 % (34.0-46.0); HGB 12.7 gm/dL (11.4-16.0); Lymphocytes # (A) 2.6 k/uL (1.0-4.8); Lymphocytes % (A) 33 %; MCH 30.6 pg (25.0-35.0); MCHC 33.9 g/dL (31.0-37.0); MCV 90.4 fL (80.0-100.0); Mean Platelet Volume 8.1; Monocytes # (A) 0.4 k/uL (0-1.0); Monocytes % (A) 5 %; Neutrophils # (A) 4.5 k/uL (1.3-7.7); Neutrophils % (A) 58 %; Platelet Count 192 k/uL (150-450); RBC 4.14 m/uL (3.80-5.40); RDW 13.6 % (11.5-15.5); WBC 7.8 k/uL (3.8-10.6)
[2017-11-25 22:31] LABS: Albumin 4.2 g/dL (3.5-5.0); Calcium 9.5 mg/dL (8.4-10.2); Potassium 4.1 mmol/L (3.5-5.1); Total Bilirubin 0.4 mg/dL (0.2-1.3); Total Protein 6.6 g/dL (6.3-8.2)
[2017-11-25 22:35] LABS: Amorphous Sediment,Urine Rare /hpf; Appearance,Urine Clear (Clear); Bilirubin,Urine Negative (Negative); Blood,Urine Negative (Negative); Color,Urine Light Yellow; Glucose,Urine (UA) Negative (Negative); Hyaline Casts,Urine 7 /lpf (0-2); Ketones,Urine Negative (Negative); Leukocyte Esterase,Urine Large (Negative); Mucus,Urine Rare /hpf; Nitrite,Urine Negative (Negative); Protein,Urine Negative (Negative); RBC,Urine 1 /hpf (0-5); Specific Gravity,Urine 1.011 (1.001-1.035); Squamous Epithelial Cell,Urine 5 /hpf (0-4); Urobilinogen,Urine <2.0 mg/dL (<2.0); WBC,Urine 18 /hpf (0-5)
--- NOTE | 2017-11-26 00:27 | CT ---
EXAMINATION TYPE: CT abdomen pelvis wo con DATE OF EXAM: 11/25/2017 COMPARISON: 04/24/2016 HISTORY: Right flank pain, Mid abd pain, back pain, r/o stones CT DLP: 871.00 mGycm Automated exposure control for dose reduction was used. TECHNIQUE: Helical acquisition of images was performed from the lung bases through the pelvis. FINDINGS: Lung bases are clear. There is no pleural effusion. There is no pericardial effusion. Heart size is n ormal. Liver spleen pancreas appear normal. There are clips from cholecystectomy. Bile ducts are not dilated . There is no adrenal mass. Kidneys have normal size and contour. There is a 1 cm calculus in the low er pole right kidney. Ureters are not dilated. Bladder distends smoothly. There are a few sigmoid div erticula. There is no sign of diverticulitis. There is no ascites. I see no intestinal wall thickenin g. There is no retroperitoneal adenopathy. Bony structures are intact. Hysterectomy is noted. There i s low-density rounded 2.5 cm area in the left adnexal region consistent with left ovary. IMPRESSION: RIGHT RENAL CALCULUS. NO SIGN OF RENAL OBSTRUCTION. MILD SIGMOID DIVERTICULOSIS. LEFT OVARY AND CYST. NO SIGN OF ACUTE ABDOMEN AND PELVIS. NO ADVERSE CHANGE COMPARED TO OLD EXAM.
[2017-11-26] MEDS ORDERED: SODIUM CHLORIDE 0.9% 1,000 ML IV ONE (00:40)
[2017-11-26] MEDS: MORPHINE SULFATE 2 MG/ML SYRINGE IVP PRN ×5 (00:59→22:07)
[2017-11-26 01:37] VITALS: BMI 92.1
--- NOTE | 2017-11-26 09:38 | P.GSCN ---
History of Present Illness Consult date: 11/26/17 Reason for Consult: Epigastric abdominal pain History of present illness: This is a 61-year-old female who is admitted through the emergency room with complaints of severe epigastric abdominal pain. She states pain is mainly in the epigastric. There is no radiation to her back. She's had a previous cholecystectomy. Her CAT scan was essentially normal. Past Medical History Past Medical History: Deep Vein Thrombosis (DVT), GERD/Reflux, Hyperlipidemia, Hypertension, Osteoarthritis (OA), Sleep Apnea/CPAP/BIPAP Additional Past Medical History / Comment(s): no cpap, diverticular disease, HX kidney stone, History of Any Multi-Drug Resistant Organisms: None Reported Past Surgical History: Cholecystectomy, Ear Surgery, Heart Catheterization, Hysterectomy, Joint Replacement, Orthopedic Surgery Additional Past Surgical History / Comment(s): RT TOTAL KNEE, R knee SCOPE, left knee. LEFT EAR PATCH colonoscopy. Past Anesthesia/Blood Transfusion Reactions: Postoperative Nausea & Vomiting ( PONV) Past Psychological History: No Psychological Hx Reported Smoking Status: Never smoker Past Alcohol Use History: None Reported Past Drug Use History: None Reported - Past Family History Father Family Medical History: Cancer Additional Family Medical History / Comment(s): Throat,brain Mother Family Medical History: Liver Disease Medications and Allergies Home Medications Medication Instructions Recorded Confirmed Type Furosemide [Lasix] 20 mg PO DAILY 05/13/17 11/25/17 History Lisinopril-Hctz 10-12.5 mg 1 tab PO QAM 05/13/17 11/25/17 History [Zestoretic 10-12.5] Acetaminophen Tab [Tylenol Tab] 500 - 1,000 mg PO Q6HR PRN 11/25/17 11/25/17 History Allergies Allergy/AdvReac Type Severity Reaction Status Date / Time Iodinated Contrast- Oral and Allergy Severe Anaphylaxis Verified 11/25/17 22:36 IV Dye [Iodinated Contrast Media - IV Dye] Fkyhzuk-Jjp-Kdz Reductase Allergy THROAT Verified 11/25/17 22:36 Inhibitor Swelling hydrocodone [From [place]] AdvReac Nausea & Verified 11/25/17 22:36 Vomiting Surgical - Exam Vital Signs Temp Pulse Resp BP Pulse Ox 98.8 F 88 20 129/83 99 11/25/17 21:12 11/25/17 21:12 11/25/17 21:12 11/25/17 21:12 11/25/17 21:12 - General well developed, no distress - Eyes PERRL - ENT normal pinna - Neck no masses - Respiratory normal expansion - Cardiovascular Rhythm: regular - Abdomen Mild epigastric tenderness. There is no rebound or guarding. Abdomen: soft Results - Labs 11/25/17 22:15 11/25/17 22:15 Abnormal Lab Results - Last 24 Hours (Table) 11/25/17 11/25/17 Range/Units 21:58 22:15 BUN 36 H (7-17) mg/dL Creatinine 1.40 H (0.52-1.04) mg/dL Glucose 153 H (74-99) mg/dL Ur Leukocyte Esterase Large H (Negative) Urine WBC 18 H (0-5) /hpf Ur Squamous Epith Cells 5 H (0-4) /hpf Amorphous Sediment Rare H (None) /hpf Hyaline Casts 7 H (0-2) /lpf Urine Mucus Rare H (None) /hpf Diabetes panel 11/25/17 Range/Units 22:15 Sodium 140 (137-145) mmol/L Potassium 4.1 (3.5-5.1) mmol/L Chloride 104 (98-107) mmol/L Carbon Dioxide 25 (22-30) mmol/L BUN 36 H (7-17) mg/dL Creatinine 1.40 H (0.52-1.04) mg/dL Glucose 153 H (74-99) mg/dL Calcium 9.5 (8.4-10.2) mg/dL AST 17 (14-36) U/L ALT 27 (9-52) U/L Alkaline Phosphatase 88 (38-126) U/L Total Protein 6.6 (6.3-8.2) g/dL Albumin 4.2 (3.5-5.0) g/dL Calcium panel 11/25/17 Range/Units 22:15 Calcium 9.5 (8.4-10.2) mg/dL Albumin 4.2 (3.5-5.0) g/dL Pituitary panel 11/25/17 Range/Units 22:15 Sodium 140 (137-145) mmol/L Potassium 4.1 (3.5-5.1) mmol/L Chloride 104 (98-107) mmol/L Carbon Dioxide 25 (22-30) mmol/L BUN 36 H (7-17) mg/dL Creatinine 1.40 H (0.52-1.04) mg/dL Glucose 153 H (74-99) mg/dL Calcium 9.5 (8.4-10.2) mg/dL Adrenal panel 11/25/17 Range/Units 22:15 Sodium 140 (137-145) mmol/L Potassium 4.1 (3.5-5.1) mmol/L Chloride 104 (98-107) mmol/L Carbon Dioxide 25 (22-30) mmol/L BUN 36 H (7-17) mg/dL Creatinine 1.40 H (0.52-1.04) mg/dL Glucose 153 H (74-99) mg/dL Calcium 9.5 (8.4-10.2) mg/dL Total Bilirubin 0.4 (0.2-1.3) mg/dL AST 17 (14-36) U/L ALT 27 (9-52) U/L Alkaline Phosphatase 88 (38-126) U/L Total Protein 6.6 (6.3-8.2) g/dL Albumin 4.2 (3.5-5.0) g/dL Assessment and Plan Assessment: Severe epigastric pain. Patient also has gastritis. She'll be scheduled for EGD in the a.m.
[2017-11-26] MEDS: PANTOPRAZOLE 40 MG/10 ML VIAL IVP SCH ×2 (14:19→22:02)
--- NOTE | 2017-11-26 16:05 | P.HPIM ---
History of Present Illness 61-year-old female presents emergency Department with a past medical history significant for diverticulitis. Patient comes in today stating she's been having abdominal pain in the middle of her abdomen for a week. Patient states she got much worse today. Patient states she's also experiencing some bilateral back pain in the area of her kidneys. Patient denies any nausea or vomiting. Patient states she is eating some. Patient states she has had some episodes of diarrhea however. Patient denies any fever or chills. Patient denies any significant abdominal surgeries. Patient denies any chest pain difficulty breathing or shortness of breath. Patient denies any recent cough. Patient denies headache patient denies numbness weakness patient denies lightheadedness dizziness or near syncopal episode. Patient's pain is 9/10 in severity. Next Patient was evaluated by general surgery and he wanted an upper GI endoscopy. Patient had a cholecystectomy in the past. Patient was started on Protonix discontinue nonsteroidal anti-inflammatory medications. Review of Systems REVIEW OF SYSTEMS: CONSTITUTIONAL: No fever, no malaise, no fatigue. HEENT: No recent visual problems or hearing problems. Denied any sore throat. CARDIOVASCULAR: No chest pain, orthopnea, PND, no palpitations, no syncope. PULMONARY: No shortness of breath, no cough, no hemoptysis. GASTROINTESTINAL: As mentioned in HPI NEUROLOGICAL: No headaches, no weakness, no numbness. HEMATOLOGICAL: Denies any bleeding or petechiae. GENITOURINARY: Denies any burning micturition, frequency, or urgency. MUSCULOSKELETAL/RHEUMATOLOGICAL: Denies any joint pain, swelling, or any muscle pain. ENDOCRINE: Denies any polyuria or polydipsia. The rest of the 14-point review of systems is negative. Past Medical History Past Medical History: Deep Vein Thrombosis (DVT), GERD/Reflux, Hyperlipidemia, Hypertension, Osteoarthritis (OA), Sleep Apnea/CPAP/BIPAP Additional Past Medical History / Comment(s): no cpap, diverticular disease, HX kidney stone, History of Any Multi-Drug Resistant Organisms: None Reported Past Surgical History: Cholecystectomy, Ear Surgery, Heart Catheterization, Hysterectomy, Joint Replacement, Orthopedic Surgery Additional Past Surgical History / Comment(s): RT TOTAL KNEE, R knee SCOPE, left knee. LEFT EAR PATCH colonoscopy. Past Anesthesia/Blood Transfusion Reactions: Postoperative Nausea & Vomiting ( PONV) Past Psychological History: No Psychological Hx Reported Smoking Status: Never smoker Past Alcohol Use History: None Reported Past Drug Use History: None Reported - Past Family History Father Family Medical History: Cancer Additional Family Medical History / Comment(s): Throat,brain Mother Family Medical History: Liver Disease Medications and Allergies Home Medications Medication Instructions Recorded Confirmed Type Furosemide [Lasix] 20 mg PO DAILY 05/13/17 11/26/17 History Lisinopril-Hctz 10-12.5 mg 1 tab PO QAM 05/13/17 11/26/17 History [Zestoretic 10-12.5] Acetaminophen Tab [Tylenol Tab] 500 - 1,000 mg PO Q6HR PRN 11/25/17 11/26/17 History Allergies Allergy/AdvReac Type Severity Reaction Status Date / Time Iodinated Contrast- Oral and Allergy Severe Anaphylaxis Verified 11/26/17 12:05 IV Dye [Iodinated Contrast Media - IV Dye] Myzzpfb-Qfd-Tex Reductase Allergy THROAT Verified 11/26/17 12:05 Inhibitor Swelling hydrocodone [From [place]] AdvReac Nausea & Verified 11/26/17 12:05 Vomiting Physical Exam Vitals: Vital Signs Temp Pulse Pulse Resp BP BP BP 11/26/17 15:00 98.4 F 77 20 119/62 11/26/17 08:00 77 17 11/26/17 06:20 97.1 F L 77 17 118/56 11/26/17 01:48 97.9 F 80 18 136/76 11/26/17 01:07 98.4 F 11/26/17 01:03 85 21 135/70 11/26/17 00:00 98.1 F 78 18 137/63 11/25/17 22:13 73 34 H 11/25/17 21:12 98.8 F 88 20 129/83 Pulse Ox 11/26/17 15:00 95 11/26/17 08:00 11/26/17 06:20 96 11/26/17 01:48 99 11/26/17 01:07 11/26/17 01:03 98 11/26/17 00:00 98 11/25/17 22:13 94 L 11/25/17 21:12 99 Intake and Output 11/26/17 11/26/17 11/26/17 06:59 14:59 22:59 Intake Total 0 320 Balance 0 320 Intake: Oral 0 320 Other: # Voids 1 2 Weight 214 kg Results CBC & Chem 7: 11/25/17 22:15 11/25/17 22:15 Labs: Abnormal Lab Results - Last 24 Hours (Table) 11/25/17 11/25/17 Range/Units 21:58 22:15 BUN 36 H (7-17) mg/dL Creatinine 1.40 H (0.52-1.04) mg/dL Glucose 153 H (74-99) mg/dL Ur Leukocyte Esterase Large H (Negative) Urine WBC 18 H (0-5) /hpf Ur Squamous Epith Cells 5 H (0-4) /hpf Amorphous Sediment Rare H (None) /hpf Hyaline Casts 7 H (0-2) /lpf Urine Mucus Rare H (None) /hpf Thrombosis Risk Factor Assmnt - Choose All That Apply Any of the Below Risk Factors Present?: Yes Each Factor Represents 1 point: Obesity (BMI >25) Other Risk Factors: Yes Each Risk Factor Represents 2 Points: Age 61-74 years Other congenital or acquired thrombophilia - If yes, enter type in comment: No Thrombosis Risk Factor Assessment Total Risk Factor Score: 3 Thrombosis Risk Factor Assessment Level: Moderate Risk Assessment and Plan Plan: -Epigastric abdominal pain probably secondary to peptic ulcer disease, patient was started on Protonix will undergo upper GI endoscopy. -Acute renal failure on chronic kidney disease stage II: Acute renal failure is probably secondary to lisinopril and diuretic combination which will be held and will monitor kidney function tomorrow -Hypertension hold off antihypertensive medications for above-mentioned reason -Hyperlipidemia: Patient does not appear to be in any medications for that -History of DVT in the past not on anti-correlation presently -Sleep apnea: Continue with CPAP machine
[2017-11-27] MEDS: HEPARIN SODIUM,PORCINE 5,000 UNIT/ML 1 ML VIAL SQ SCH ×2 (00:41→08:04)
[2017-11-27 01:26] VITALS: PULSE 84
[2017-11-27] MEDS: MORPHINE SULFATE 2 MG/ML SYRINGE IVP PRN ×2 (03:43→10:30)
[2017-11-27 04:57] LABS: Calcium 8.6 mg/dL (8.4-10.2)
[2017-11-27 07:26] VITALS: BP 124/63; RESP 18; TEMP 98.2
[2017-11-27] MEDS: PANTOPRAZOLE 40 MG/10 ML VIAL IVP SCH (08:04)
[2017-11-27] MEDS ORDERED: IV FLUID CONTINUATION 500 ML IV ONE (09:04)
[2017-11-27] MEDS ORDERED: LIDOCAINE 1% INJ 10MG/ML (20 ML MDV) ONE ×2 (09:40)
[2017-11-27] MEDS ORDERED: PROPOFOL 10 MG/ML 20 ML VIAL IV ONE ×2 (09:40)
--- NOTE | 2017-11-27 09:59 | P.OP ---
Date of Procedure: 11/27/17 Preoperative Diagnosis: Epigastric pain Postoperative Diagnosis: Gastritis Esophagitis Procedure(s) Performed: EGD Anesthesia: MAC Surgeon: Morgan Alfonso Pathology: other (Antrum, esophagus) Condition: stable Disposition: PACU Description of Procedure: The patient's placed on the operative table in the supine position. She received IV sedation. The gastric was placed oropharynx passed in the esophagus and into the stomach. The scope was then placed through the pylorus. The first and second portion of the duodenum appeared normal. Scope was then brought back the antrum and this appeared mildly inflamed. A biopsies performed. The scope was then retroflexed and the remainder stomach appeared normal. The GE junction was at 39 cm. There is no significant hiatal hernia. The distal esophagus appeared inflamed with evidence of esophagitis and a biopsy was performed. The proximal esophagus appeared normal. Scope was withdrawn for patient.
--- NOTE | 2017-11-27 10:01 | P.PN ---
Progress Note - Text Progress Note Date: 11/27/17 Patient went EGD this a.m. She's had an evidence of esophagitis. Biopsies were performed. The patient is stable for discharge. She'll follow-up as of 1 week. She is placed on Carafate and omeprazole.
--- NOTE | 2017-11-27 12:53 | P.DS ---
Providers Date of admission: 11/26/17 00:40 Attending physician: Hussein Najera Consults: 11/26/17 00:40 Consult Physician Urgent Consulting Provider: Morgan Alfonso Consult Reason/Comments: Abdominal pain Do you want consulting provider notified?: Yes Primary care physician: Frederic North Hospital Course: Patient is admitted with abdominal pain found to have esophagitis and patient is being discharged on her omeprazole and simethicone and the patient will follow Dr. North as an outpatient. Patient blood pressure is stable without the her diuretic therapy and GET inhibitor and kidney function did improve without these medications because of which these medications will be discontinued can be restarted as an outpatient if needed. PHYSICAL EXAMINATION: GENERAL: The patient is alert and oriented x3, not in any acute distress. Well developed, well nourished. HEENT: Pupils are round and equally reacting to light. EOMI. No scleral icterus. No conjunctival pallor. Normocephalic, atraumatic. No pharyngeal erythema. No thyromegaly. CARDIOVASCULAR: S1 and S2 present. No murmurs, rubs, or gallops. PULMONARY: Chest is clear to auscultation, no wheezing or crackles. ABDOMEN: Soft, nontender, nondistended, normoactive bowel sounds. No palpable organomegaly. MUSCULOSKELETAL: No joint swelling or deformity. EXTREMITIES: No cyanosis, clubbing, or pedal edema. NEUROLOGICAL: Gross neurological examination did not reveal any focal deficits. SKIN: No rashes. For rest of her chronic medical problems and hospitalization course please refer to my HPI from yesterday Plan - Discharge Summary New Discharge Prescriptions: New Omeprazole 40 mg PO DAILY #60 capsule. Sucralfate [Carafate] 1 gm PO BID #60 tablet Discontinued Lisinopril-Hctz 10-12.5 mg [Zestoretic 10-12.5] 1 tab PO QAM Furosemide [Lasix] 20 mg PO DAILY No Action Acetaminophen Tab [Tylenol Tab] 500 - 1,000 mg PO Q6HR PRN PRN Reason: Pain Discharge Medication List Acetaminophen Tab [Tylenol Tab] 500 - 1,000 mg PO Q6HR PRN 11/25/17 [History] Omeprazole 40 mg PO DAILY #60 capsule. 11/27/17 [Rx] Sucralfate [Carafate] 1 gm PO BID #60 tablet 11/27/17 [Rx] Follow up Appointment(s)/Referral(s): Frederic North DO [Primary Care Provider] - 3 Days (please call for appointment, office closed.) Morgan Alfonso MD [STAFF PHYSICIAN] - 1 Week (please call for appointment, office closed.) Patient Instructions/Handouts: Esophagitis (DC) Activity/Diet/Wound Care/Special Instructions: regular diet activity as tolerated Discharge Disposition: HOME SELF-CARE
== END 2017-11-27 13:45 | disposition home or self-care (01) ==
LOC: EC 21:01 → 4MS4W 11-26 00:40
PROVIDERS: ADMIT Hospitalist; ATTEND Hospitalist
DX: K21.0 Gastro-esophageal reflux disease with esophagitis (principal); K29.50 Unspecified chronic gastritis without bleeding; I12.9 Hypertensive chronic kidney disease with stage 1 through stage 4 chronic kidney disease, or unspecified chronic kidney disease; N18.2 Chronic kidney disease, stage 2 (mild); N17.9 Acute kidney failure, unspecified; G47.30 Sleep apnea, unspecified; Z86.718 Personal history of other venous thrombosis and embolism; Z88.5 Allergy status to narcotic agent; Z91.041 Radiographic dye allergy status; M54.9 Dorsalgia, unspecified; Z90.49 Acquired absence of other specified parts of digestive tract; Z99.89 Dependence on other enabling machines and devices; E78.5 Hyperlipidemia, unspecified; Z90.710 Acquired absence of both cervix and uterus; Z79.899 Other long term (current) drug therapy
CPT/HCPCS: 96376 ×2; 96361 ×2; 96372; 96375 ×2; 96374; 99285; 36415; 93005; 88305; 80053; 80048; 82150; 83690; 84484 ×2; 85025; 81001; 88312; 74176; 43239; G0378 ×2; J1644; J2001; J1885; J2270 ×2; J2704; C9113 ×2

== ENCOUNTER 2018-03-02 10:37 | Emergency (ER) | payer BC ==
[2018-03-02 11:01] VITALS: RESP 18
[2018-03-02] MEDS ORDERED: ONDANSETRON 4 MG/2 ML VIAL IVP STA (11:22)
[2018-03-02] MEDS ORDERED: Acetaminophen-Codeine 300-30mg TAB PO STA (11:22)
[2018-03-02] MEDS ORDERED: SODIUM CHLORIDE 0.9% 1,000 ML IV ONE (11:22)
[2018-03-02 11:38] LABS: Appearance,Urine Cloudy (Clear); Bilirubin,Urine Negative (Negative); Blood,Urine Negative (Negative); Color,Urine Yellow; Glucose,Urine (UA) Negative (Negative); Hyaline Casts,Urine 2 /lpf (0-2); Ketones,Urine Negative (Negative); Leukocyte Esterase,Urine Negative (Negative); Mucus,Urine Rare /hpf; Nitrite,Urine Negative (Negative); PH, Urine 5.5 (5.0-8.0); Protein,Urine Negative (Negative); Specific Gravity,Urine 1.022 (1.001-1.035); Squamous Epithelial Cell,Urine 9 /hpf (0-4); Urobilinogen,Urine <2.0 mg/dL (<2.0)
--- NOTE | 2018-03-02 11:45 | ED ---
Abdominal Pain HPI - General Chief Complaint: Abdominal Pain Stated Complaint: Bladder infection Time Seen by Provider: 03/02/18 11:14 Source: patient, RN notes reviewed Mode of arrival: ambulatory Limitations: no limitations - History of Present Illness Initial Comments: 62-year-old female presents emergency Department chief complaint of abdominal pain, left flank pain. Patient states started last couple days. Patient states she feels like she has a urinary tract infection or kidney infection. Though she is concern as she's had recent renal failure. Patient states that she's had some nausea no vomiting no diarrhea no constipation. She states pain radiates from her flank down her left leg and into her abdomen. - Related Data Home Medications Medication Instructions Recorded Confirmed Furosemide [Lasix] 20 mg PO DAILY 03/02/18 03/02/18 Lisinopril-Hctz 10-12.5 mg 1 tab PO DAILY 03/02/18 03/02/18 [Zestoretic 10-12.5] Losartan-Hctz 50-12.5 mg [Hyzaar 1 tab PO DAILY 03/02/18 03/02/18 50-12.5] Montelukast [Singulair] 10 mg PO DAILY 03/02/18 03/02/18 Ranitidine HCl 150 mg PO DAILY 03/02/18 03/02/18 Previous Rx's Medication Instructions Recorded Sucralfate [Carafate] 1 gm PO BID #60 tablet 11/27/17 Allergies Allergy/AdvReac Type Severity Reaction Status Date / Time Iodinated Contrast- Oral and Allergy Severe Anaphylaxis Verified 03/02/18 11:29 IV Dye [Iodinated Contrast Media - IV Dye] [id number] Reductase Allergy THROAT Verified 03/02/18 11:29 Inhibitor Swelling hydrocodone [From [place]] AdvReac Nausea & Verified 03/02/18 11:29 Vomiting Review of Systems ROS Statement: Those systems with pertinent positive or pertinent negative responses have been documented in the HPI. ROS Other: All systems not noted in ROS Statement are negative. Past Medical History Past Medical History: Deep Vein Thrombosis (DVT), GERD/Reflux, Hyperlipidemia, Hypertension, Osteoarthritis (OA), Sleep Apnea/CPAP/BIPAP Additional Past Medical History / Comment(s): no cpap, diverticular disease, HX kidney stone, History of Any Multi-Drug Resistant Organisms: None Reported Past Surgical History: Cholecystectomy, Ear Surgery, Heart Catheterization, Hysterectomy, Joint Replacement, Orthopedic Surgery Additional Past Surgical History / Comment(s): RT TOTAL KNEE, R knee SCOPE, left knee. LEFT EAR PATCH colonoscopy. Past Anesthesia/Blood Transfusion Reactions: Postoperative Nausea & Vomiting ( PONV) Past Psychological History: No Psychological Hx Reported Smoking Status: Never smoker Past Alcohol Use History: None Reported Past Drug Use History: None Reported - Past Family History Father Family Medical History: Cancer Additional Family Medical History / Comment(s): Throat,brain Mother Family Medical History: Liver Disease General Exam Limitations: no limitations General appearance: alert, in no apparent distress Head exam: Present: atraumatic, normocephalic, normal inspection Neck exam: Present: normal inspection, full ROM. Absent: tenderness, meningismus, lymphadenopathy Respiratory exam: Present: normal lung sounds bilaterally. Absent: respiratory distress, wheezes, rales, rhonchi, stridor Cardiovascular Exam: Present: regular rate, normal rhythm, normal heart sounds. Absent: systolic murmur, diastolic murmur, rubs, gallop, clicks GI/Abdominal exam: Present: soft, tenderness (Moderate suprapubic tenderness, left-sided abdominal tenderness), normal bowel sounds. Absent: distended, guarding, rebound, rigid Back exam: Present: CVA tenderness (L). Absent: CVA tenderness (R) Skin exam: Present: warm, dry, intact, normal color. Absent: rash Course Vital Signs 03/02/18 10:56 Temperature 98.2 F Pulse Rate 91 Respiratory 18 Rate Blood Pressure 132/77 O2 Sat by Pulse 98 Oximetry Medical Decision Making - Medical Decision Making 62-year-old female presented emergency department for abdominal pain, flank pain back pain. Patient had lab work, CT which shows no acute abnormality. Patient's pain may relate to her back pain. Patient will be given pain medication with close follow-up. There is no evidence of urinary tract infection or evidence of diverticulitis. Return parameters were discussed. - Lab Data Result diagrams: 03/02/18 11:59 03/02/18 11:59 Lab Results 03/02/18 03/02/18 03/02/18 Range/Units 11:00 11:59 11:59 WBC 5.4 (3.8-10.6) k/uL RBC 4.01 (3.80-5.40) m/uL Hgb 12.0 (11.4-16.0) gm/dL Hct 36.8 (34.0-46.0) % MCV 91.9 (80.0-100.0) fL MCH 29.9 (25.0-35.0) pg MCHC 32.5 (31.0-37.0) g/dL RDW 13.6 (11.5-15.5) % Plt Count 167 (150-450) k/uL Neutrophils % 58 % Lymphocytes % 32 % Monocytes % 5 % Eosinophils % 4 % Basophils % 0 % Neutrophils # 3.1 (1.3-7.7) k/uL Lymphocytes # 1.7 (1.0-4.8) k/uL Monocytes # 0.3 (0-1.0) k/uL Eosinophils # 0.2 (0-0.7) k/uL Basophils # 0.0 (0-0.2) k/uL Sodium 143 (137-145) mmol/L Potassium 4.1 (3.5-5.1) mmol/L Chloride 107 (98-107) mmol/L Carbon Dioxide 27 (22-30) mmol/L Anion Gap 9 mmol/L BUN 16 (7-17) mg/dL Creatinine 0.90 (0.52-1.04) mg/dL Est GFR (CKD-EPI)AfAm 80 (>60 ml/min/1.73 sqM) Est GFR (CKD-EPI)NonAf 69 (>60 ml/min/1.73 sqM) Glucose 137 H (74-99) mg/dL Calcium 9.2 (8.4-10.2) mg/dL Total Bilirubin 0.6 (0.2-1.3) mg/dL AST 21 (14-36) U/L ALT 21 (9-52) U/L Alkaline Phosphatase 65 (38-126) U/L Total Protein 6.4 (6.3-8.2) g/dL Albumin 3.8 (3.5-5.0) g/dL Lipase 72 (23-300) U/L Urine Color Yellow Urine Appearance Cloudy H (Clear) Urine pH 5.5 (5.0-8.0) Ur Specific [place] 1.022 (1.001-1.035) Urine Protein Negative (Negative) Urine Glucose (UA) Negative (Negative) Urine Ketones Negative (Negative) Urine Blood Negative (Negative) Urine Nitrite Negative (Negative) Urine Bilirubin Negative (Negative) Urine Urobilinogen <2.0 (<2.0) mg/dL Ur Leukocyte Esterase Negative (Negative) Ur Squamous Epith Cells 9 H (0-4) /hpf Hyaline Casts 2 (0-2) /lpf Urine Mucus Rare H (None) /hpf Disposition Clinical Impression: Abdominal pain, Back pain Disposition: HOME SELF-CARE Condition: Stable Instructions: Abdominal Pain (ED), Back Pain (ED) Additional Instructions: Please return to the Emergency Department if symptoms worsen or any other concerns. Is patient prescribed a controlled substance at d/c from ED?: No Referrals: None,Stated [REFERRING] - 1-2 days Time of Disposition: 13:12
[2018-03-02 12:23] LABS: Basophils % (A) 0 %; Eosinophils # (A) 0.2 k/uL (0-0.7); Eosinophils % (A) 4 %; HCT 36.8 % (34.0-46.0); Lymphocytes # (A) 1.7 k/uL (1.0-4.8); Lymphocytes % (A) 32 %; MCH 29.9 pg (25.0-35.0); MCHC 32.5 g/dL (31.0-37.0); MCV 91.9 fL (80.0-100.0); Mean Platelet Volume 7.9; Monocytes # (A) 0.3 k/uL (0-1.0); Monocytes % (A) 5 %; Neutrophils # (A) 3.1 k/uL (1.3-7.7); Neutrophils % (A) 58 %; Platelet Count 167 k/uL (150-450); RBC 4.01 m/uL (3.80-5.40); RDW 13.6 % (11.5-15.5); WBC 5.4 k/uL (3.8-10.6)
[2018-03-02 12:37] LABS: Albumin 3.8 g/dL (3.5-5.0); Calcium 9.2 mg/dL (8.4-10.2); Potassium 4.1 mmol/L (3.5-5.1); Total Bilirubin 0.6 mg/dL (0.2-1.3); Total Protein 6.4 g/dL (6.3-8.2)
--- NOTE | 2018-03-02 13:08 | CT ---
EXAMINATION TYPE: CT abdomen pelvis wo con DATE OF EXAM: 03/02/2018 HISTORY: pain not further specified. CT DLP: 1016 mGycm. Automated Exposure Control for Dose Reduction was Utilized. TECHNIQUE: CT scan of the abdomen and pelvis is performed without oral or IV contrast. COMPARISON: CT abdomen and pelvis November 25, 2017 FINDINGS: Within the limitations of a non-contrast study, the following observations are made. LUNG BASES: Coronary artery calcification is redemonstrated which is noted marker for coronary artery disease. There is patchy right basilar linear scarring and/or atelectasis. LIVER/GB: Cholecystectomy clips are redemonstrated. Visualized liver remains diffusely hypodense rela tive to spleen consistent with fatty infiltration. PANCREAS: No significant abnormality is seen. SPLEEN: No significant abnormality is seen. ADRENALS: No significant abnormality is seen. KIDNEYS: There is redemonstration of 9 mm calculus lower pole level right kidney coronal image 56. No hydronephrosis or obstructing ureter calculi are seen bilaterally. No intraluminal calculi are seen in poorly distended bladder. BOWEL: There is low-lying cecum into the right pelvis redemonstrated. There are scattered colonic div erticula most prominent in the sigmoid colon. There is no CT evidence for acute diverticulitis. There is no suspicious small or large bowel dilatation. Surgical clips anterior left pelvis are redemonstr ated. GENITAL ORGANS: Uterus is surgically absent. There are persistent 2 adjacent low dense lesions in the left adnexal region of left ovary, largest measures 2.3 x 2.1 cm axial image 106. These are diminish ed in size from older study April 23, 2016 and older study 2011. This is still abnormal finding in postmenopausal female and at minimum annual ultrasound surveillance to document stability is advised . LYMPH NODES: No greater than 1cm abdominal or pelvic lymph nodes are appreciated. Prominent but subce ntimeter left periaortic vessel probable tortuous draining left ovarian vein is redemonstrated not si gnificantly changed from older studies. OSSEOUS STRUCTURES: There is multilevel spurring in the visualized thoracic spine. There is facet art hropathy in the lower lumbar spine. There is mild multilevel anterior spurring in the lumbar spine. OTHER: Mild calcified plaque of aorta extending into branch vessels is redemonstrated. IMPRESSION: No new or acute finding is seen to account for patient's symptoms.
[2018-03-02] MEDS ORDERED: ACET/COD 300 MG/30 MG STARTER PACK 6 TAB BTL PO STA (13:12)
[2018-03-02] MEDS ORDERED: ONDANSETRON 4 MG ODT STARTER PACK 2 TAB BTL PO STA (13:12)
[2018-03-02 13:35] VITALS: BP 134/87; PULSE 87; TEMP 98.7
== END 2018-03-02 13:34 | disposition home or self-care (01) ==
LOC: EC 10:37
DX: M54.9 Dorsalgia, unspecified (principal); R10.32 Left lower quadrant pain; R11.0 Nausea; K21.9 Gastro-esophageal reflux disease without esophagitis; I10 Essential (primary) hypertension; G47.30 Sleep apnea, unspecified; Z99.89 Dependence on other enabling machines and devices; Z90.49 Acquired absence of other specified parts of digestive tract; Z90.710 Acquired absence of both cervix and uterus; Z95.818 Presence of other cardiac implants and grafts; Z96.651 Presence of right artificial knee joint; Z87.19 Personal history of other diseases of the digestive system; Z87.442 Personal history of urinary calculi; Z79.899 Other long term (current) drug therapy; Z91.041 Radiographic dye allergy status; Z88.8 Allergy status to other drugs, medicaments and biological substances; Z88.5 Allergy status to narcotic agent
CPT/HCPCS: 36415; 74176; 80053; 81001; 83690; 85025; 87040; 87086; 96361; 96374; 99284

== ENCOUNTER 2018-09-07 09:26 | Inpatient (IN) | payer BC, OTHER ==
[2018-09-07 12:58] LABS: Basophils % (A) 0 %; Eosinophils # (A) 0.1 k/uL (0-0.7); Eosinophils % (A) 1 %; HCT 37.4 % (34.0-46.0); HGB 12.3 gm/dL (11.4-16.0); Lymphocytes # (A) 1.9 k/uL (1.0-4.8); Lymphocytes % (A) 15 %; MCH 29.2 pg (25.0-35.0); MCHC 32.8 g/dL (31.0-37.0); Mean Platelet Volume 7.9; Monocytes # (A) 0.6 k/uL (0-1.0); Monocytes % (A) 5 %; Neutrophils # (A) 10.4 k/uL (1.3-7.7); Neutrophils % (A) 79 %; Platelet Count 205 k/uL (150-450); RDW 13.9 % (11.5-15.5); WBC 13.1 k/uL (3.8-10.6)
[2018-09-07 13:09] LABS: Albumin 3.9 g/dL (3.5-5.0); Calcium 9.9 mg/dL (8.4-10.2); Potassium 4.2 mmol/L (3.5-5.1); Total Bilirubin 0.5 mg/dL (0.2-1.3); Total Protein 6.5 g/dL (6.3-8.2)
--- NOTE | 2018-09-07 13:42 | ECHOF ---
Referral Reason:dyspnea MEASUREMENTS -------- HEIGHT: 152.4 cm WEIGHT: 95.7 kg BP: RVIDd: 3.0 cm (< 3.3) IVSd: 1.2 cm (0.6 - 1.1) LVIDd: 4.3 cm (3.9 - 5.3) LVPWd: 1.2 cm (0.6 - 1.1) IVSs: 1.7 cm LVIDs: 2.9 cm LVPWs: 1.7 cm LA Diam: 4.2 cm (2.7 - 3.8) LAESV Index (A-L): 19.53 ml/m Ao Diam: 3.2 cm (2.0 - 3.7) AV Cusp: 2.0 cm (1.5 - 2.6) MV EXCURSION: 13.189 mm (> 18.000) MV EF SLOPE: 56 mm/s (70 - 150) EPSS: 0.4 cm MV E Héctor: 0.89 m/s MV DecT: 269 ms MV A Héctor: 1.04 m/s MV E/A Ratio: 0.86 AV maxP.16 mmHg AV maxP.16 mmHg AV meanP.10 mmHg RAP: 5.00 mmHg RVSP: 29.24 mmHg FINDINGS -------- Sinus rhythm. This was a technically adequate study. The left ventricular size is normal. There is borderline concentric left ventricular hypertrophy. Overall left ventricular systolic function is normal with, an EF between 60 - 65 %. The right ventricle is normal in size. Normal LA size by volume 22+/-6 ml/m2. The right atrium is normal in size. There is mild aortic valve sclerosis. The mitral valve leaflets are mildly thickened. Mild mitral regurgitation is present. Mild tricuspid regurgitation present. Right ventricular systolic pressure is normal at < 35 mmHg. The pulmonic valve was not well visualized. The aortic root size is normal. IVC Not well visulized. There is no pericardial effusion. CONCLUSIONS -------- 1. Sinus rhythm. 2. This was a technically adequate study. 3. The left ventricular size is normal. 4. There is borderline concentric left ventricular hypertrophy. 5. Overall left ventricular systolic function is normal with, an EF between 60 - 65 %. 6. The right ventricle is normal in size. 7. Normal LA size by volume 22+/-6 ml/m2. 8. The right atrium is normal in size. 9. There is mild aortic valve sclerosis. 10. The mitral valve leaflets are mildly thickened. 11. Mild mitral regurgitation is present. 12. Mild tricuspid regurgitation present. 13. Right ventricular systolic pressure is normal at < 35 mmHg. 14. The pulmonic valve was not well visualized. 15. The aortic root size is normal. 16. IVC Not well visulized. 17. There is no pericardial effusion. DEPUTY SHERIFF LIEUTENANT: Reina Reno RDCS
--- NOTE | 2018-09-07 14:16 | XR ---
EXAMINATION TYPE: XR chest 2V DATE OF EXAM: 09/07/2018 COMPARISON: 04/24/2016 HISTORY: 62 year-old female COPD, difficulty breathing, shortness of breath. TECHNIQUE: Frontal and lateral views FINDINGS: Heart normal size. Aorta and pulmonary vasculature are within normal limits. Mild central peribronchi al cuffing. No consolidation or pleural effusion. IMPRESSION: Mild central peribronchial cuffing could reflect bronchitis or asthma. Otherwise, no acute process se en.
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
--- NOTE | 2018-09-07 16:17 | CT ---
EXAMINATION TYPE: CT chest wo con DATE OF EXAM: 09/07/2018 COMPARISON: 02/23/2012 HISTORY: 62-year-old female Shortness of breath, cough and wheezing. TECHNIQUE: Contiguous axial scanning of the chest without IV contrast. Coronal and sagittal reconstru ctions performed. CT DLP: 484.7 mGycm Automated exposure control for dose reduction was used. FINDINGS: Heart normal size with trace anterior basilar pericardial fluid. Coronary vessel calcifications are p resent. Aorta normal caliber with conventional arch vessel branching anatomy. Stable few scattered nonenlarged mediastinal lymph nodes. No thoracic lymphadenopathy by CT size crit eria. There may be very mild generalized bronchial wall thickening. Some minimal strandy atelectasis at the lung bases. No consolidation or pleural effusion Visualized upper abdomen shows cholecystectomy clips. Tiny inferior splenule. Endplate spondylosis mid to lower thoracic spine. IMPRESSION: 1. VERY MILD DIFFUSE BRONCHIAL WALL THICKENING COULD REFLECT BRONCHITIS OR ASTHMA. 2. CAD. 3. OTHERWISE, NO ACUTE PULMONARY PROCESS SEEN.
[2018-09-07] MEDS: HYDROcodone/APAP 5-325MG 1 EACH TAB PO PRN ×2 (16:25→22:19)
[2018-09-07] MEDS: methylPREDNISolone SOD SUCCI 125 MG/2 ML VIAL IV SCH ×2 (16:27→23:28)
[2018-09-07] MEDS: HEPARIN SODIUM,PORCINE 5,000 UNIT/ML 1 ML VIAL SQ SCH ×2 (16:27→23:28)
[2018-09-07] MEDS: SODIUM CHLORIDE 0.9% 1,000 ML IV SCH (16:31)
[2018-09-07] MEDS: IPRATROPIUM-ALBUTEROL 3 ML NEB INHALATION SCH ×2 (16:32→21:18)
[2018-09-07 17:14] LABS: Glucose,Whole Blood 169 mg/dL (75-99)
--- NOTE | 2018-09-07 17:40 | CT ---
EXAMINATION TYPE: CT soft tissue neck wo con DATE OF EXAM: 09/07/2018 HISTORY: Left sided neck pain and swelling. BB placed on region of interest. COMPARISON: 05/02/2013 CT DLP: 539.7 mGycm. Automated Exposure Control for Dose Reduction was Utilized. TECHNIQUE: Exam performed with oral contrast from the aortic arch to the mid orbits. FINDINGS: There is normal branching pattern of the great vessels on the aortic arch. Thyroid gland is small and symmetric. There is no mediastinal adenopathy. Epiglottis appears normal. Prevertebral soft tissues appear normal. The trachea appears normal. There is no evidence of pharyngeal mass. Exam is limited s lightly by artifact from the dental work. There is no evidence of a tongue mass. There is some thicke gillian of the soft palate that is probably normal variation. The parotid glands are symmetric. The submandibular salivary glands are fairly symmetric. There is a BB placed on the skin at the area of concern on the left side of the anterior neck that is at the level of the vocal cords and glottis. I see no discrete neck mass. Soft tissues are symmetric . I see no cervical adenopathy. Mandibular ring is intact. Maxilla is intact. Visualized orbits appear normal. The cervical vertebra have fairly normal spacing and alignment. Posterior elements are intact. The sk ull base is intact. I see no bony destructive process. IMPRESSION: There is some thickening of the posterior soft palate that is a change compared to old exam and narro wing of the nasopharyngeal airway. A mass in this location cannot be entirely excluded. This could be further evaluated with laryngoscopy. No neck mass identified in the area of concern on the left side of the neck.
[2018-09-07] MEDS ORDERED: traMADol 50 MG TAB PO SCH (18:00)
[2018-09-07] MEDS: INSULIN ASPART (NovoLOG) 100 UNIT/ML VIAL SQ SCH ×2 (18:23→21:12)
[2018-09-07] MEDS: SUCRALFATE 1 GM TAB PO SCH (18:26)
[2018-09-07 19:49] LABS: Appearance,Urine Clear (Clear); Bilirubin,Urine Negative (Negative); Blood,Urine Negative (Negative); Color,Urine Yellow; Glucose,Urine (UA) 1+ (Negative); Ketones,Urine Negative (Negative); Leukocyte Esterase,Urine Negative (Negative); Nitrite,Urine Negative (Negative); Protein,Urine Negative (Negative); Specific Gravity,Urine 1.022 (1.001-1.035); Urobilinogen,Urine <2.0 mg/dL (<2.0)
[2018-09-07 20:44] LABS: Glucose,Whole Blood 189 mg/dL (75-99)
[2018-09-07] MEDS: MONTELUKAST 10 MG TAB PO SCH (21:12)
[2018-09-07] MEDS: BUDESONIDE 0.5 MG/2 ML NEBU INHALATION SCH (21:18)
[2018-09-07] MEDS: traMADol 50 MG TAB PO PRN (23:31)
--- NOTE | 2018-09-07 23:43 | HP ---
HISTORY AND PHYSICAL CHIEF COMPLAINT: This is a 62-year-old white female who was admitted to the hospital due to shortness of breath, cough, congestion, failed antibiotics with steroids as an outpatient as well as updraft treatments, including Ventolin. She has a history of allergies, 3 cats at her house, seasonal allergies. No difficulty with breathing before, except with exertion. She gets extremely short of breath. REVIEW OF SYSTEMS: Fourteen-point review of systems. She is complaining of neck pain, swelling and shortness of breath through her neck area, history of asthma, DVT, GERD, hypertension, osteoarthritis, renal disease, sleep apnea, type 2 diabetes mellitus, esophagitis, colitis, colon polyps, migraines, obstructive sleep apnea, noncompliant with CPAP, right kidney stones, chronic kidney disease, stage II, vertigo. SURGERIES: 1. Appendectomy. 2. Cholecystectomy. 3. Heart catheterization. 4. Hysterectomy. 5. Joint replacement. 6. Orthopedic surgery. 7. Tonsillectomy. 8. Right knee arthroscopy. FAMILY HISTORY: Cancer. Father was an alcoholic. Mother with liver disease, alcoholic. HOME MEDICINES: 1. Glucotrol. 2. Norvasc. 3. Augmentin. 4. Carafate. 5. Ventolin HFA. 6. Medrol Dosepak. 7. Ventolin HFA. 8. Tramadol. ALLERGIES: 1. IODINE. 2. STATINS. 3. NORCO. PHYSICAL EXAMINATION: VITAL SIGNS: Temperature 98, pulse 82, respiratory rate 16 to 18, blood pressure 160s over 80s, oxygen 96%. Lungs are diminished. No rales or rhonchi. Scattered wheeze. GENERAL: Alert and oriented x3. CARDIOVASCULAR: S1, S2. EXTREMITIES: Trace edema. LABS: White count 13.1. ASSESSMENT: 1. Asthma exacerbation, acute. 2. Acute hypoxemic respiratory distress. 3. Questionable neck mass. 4. Obstructive sleep apnea. 5. Hypertension. 6. Uncontrolled gastroesophageal reflux disease. 7. Dyslipidemia. 8. Failed outpatient treatments. Continue with IV steroids, updraft, empiric antibiotics. CT of the chest and neck will be done. Solu-Medrol taper. Continue Rocephin and Zithromax. MMODL / IJN: [id number] /
[2018-09-08] MEDS: HYDROcodone/APAP 5-325MG 1 EACH TAB PO PRN ×2 (04:50→19:32)
[2018-09-08] MEDS: SODIUM CHLORIDE 0.9% 1,000 ML IV SCH ×2 (05:07→18:00)
[2018-09-08 06:59] LABS: Glucose,Whole Blood 268 mg/dL (75-99)
[2018-09-08] MEDS: BUDESONIDE 0.5 MG/2 ML NEBU INHALATION SCH ×2 (07:51→19:29)
[2018-09-08] MEDS: IPRATROPIUM-ALBUTEROL 3 ML NEB INHALATION SCH ×4 (07:51→19:29)
[2018-09-08 08:19] LABS: Basophils % (A) 0 %; Eosinophils # (A) 0.1 k/uL (0-0.7); Eosinophils % (A) 1 %; HCT 36.8 % (34.0-46.0); HGB 12.2 gm/dL (11.4-16.0); Lymphocytes # (A) 0.9 k/uL (1.0-4.8); Lymphocytes % (A) 11 %; MCH 30.2 pg (25.0-35.0); MCHC 33.1 g/dL (31.0-37.0); MCV 91.3 fL (80.0-100.0); Mean Platelet Volume 8.4; Monocytes # (A) 0.2 k/uL (0-1.0); Monocytes % (A) 2 %; Neutrophils % (A) 86 %; Platelet Count 201 k/uL (150-450); RBC 4.03 m/uL (3.80-5.40); RDW 14.5 % (11.5-15.5); WBC 8.1 k/uL (3.8-10.6)
[2018-09-08] MEDS: INSULIN ASPART (NovoLOG) 100 UNIT/ML VIAL SQ SCH ×4 (08:20→21:19)
[2018-09-08] MEDS: SUCRALFATE 1 GM TAB PO SCH ×2 (08:22→17:59)
[2018-09-08] MEDS: HEPARIN SODIUM,PORCINE 5,000 UNIT/ML 1 ML VIAL SQ SCH ×3 (08:23→23:57)
[2018-09-08] MEDS: glipiZIDE 5 MG TAB PO SCH (08:24)
[2018-09-08] MEDS: methylPREDNISolone SOD SUCCI 125 MG/2 ML VIAL IV SCH (08:24)
[2018-09-08 08:42] LABS: Albumin 3.9 g/dL (3.5-5.0); Calcium 9.1 mg/dL (8.4-10.2); Potassium 4.4 mmol/L (3.5-5.1); Total Bilirubin 0.4 mg/dL (0.2-1.3); Total Protein 6.4 g/dL (6.3-8.2)
[2018-09-08] MEDS: traMADol 50 MG TAB PO PRN ×2 (08:55→23:57)
[2018-09-08] MEDS ORDERED: glipiZIDE 5 MG TAB PO SCH (09:00)
[2018-09-08] MEDS ORDERED: AZITHROMYCIN 500 MG in SODIUM CHLORIDE 0.9% 250 ML IVPB SCH (09:00)
[2018-09-08 09:48] VITALS: BMI 41.2
[2018-09-08] MEDS: PANTOPRAZOLE 40 MG TABLET PO SCH (10:03)
[2018-09-08] MEDS: amLODIPine 5 MG TAB PO SCH (10:04)
[2018-09-08] MEDS ORDERED: RACEPINEPHRINE 2.25% NEB 0.5 ML NEBU INHALATION STA (10:27)
[2018-09-08] MEDS ORDERED: FAMOTIDINE 20 MG/2 ML VIAL IV STA (10:27)
[2018-09-08] MEDS ORDERED: diphenhydrAMINE 50 MG/ML 1 ML VIAL IVP STA (10:27)
[2018-09-08] MEDS: ALPRAZolam 0.25 MG TAB PO PRN ×2 (11:45→21:18)
[2018-09-08 11:57] LABS: Glucose,Whole Blood 253 mg/dL (75-99)
--- NOTE | 2018-09-08 15:54 | P.PN ---
Subjective Progress Note Date: 09/08/18 09/08/2017: Patient seen and examined. Patient states that when she received her breathing treatments this morning she felt like her throat was closing up. The patient received a racemic epinephrine updraft, Benadryl, Pepcid. She states she feels much better now. The patient did have a CT of the chest and neck which showed some thickening of the posterior soft palate with narrowing of the nasopharyngeal airway, mass cannot be excluded. CT of the chest shows peribronchial thickening consistent with bronchitis or asthma, coronary artery disease, no acute pulmonary process. Objective - Vital Signs Vital signs: Vital Signs Temp 97.9 F 09/08/18 13:09 Pulse 105 H 09/08/18 13:09 Resp 16 09/08/18 13:09 BP 122/74 09/08/18 13:09 Pulse Ox 94 L 09/08/18 13:09 Intake & Output 09/07/18 09/08/18 09/08/18 18:59 06:59 18:59 Intake Total 540 600 Balance 540 600 Weight 95.708 kg 95.708 kg Intake: Oral 540 600 Other: Voiding Method Toilet # Voids 1 1 2 - Exam Gen.: Patient is alert and oriented 3, no acute distress, obese Cardiovascular: Regular rate and rhythm, S1/S2 Lungs: Diminished breath sounds bilaterally no wheezes rales or rhonchi Abdomen: Soft nontender nondistended positive bowel sounds Extremities: Trace edema - Labs CBC & Chem 7: 09/08/18 07:09 09/08/18 07:09 Labs: Abnormal Lab Results - Last 24 Hours (Table) 09/07/18 09/07/18 09/07/18 Range/Units 17:12 19:33 20:34 Lymphocytes # (1.0-4.8) k/uL Glucose (74-99) mg/dL POC Glucose (mg/dL) 169 H 189 H (75-99) mg/dL Urine Glucose (UA) 1+ H (Negative) 09/08/18 09/08/18 09/08/18 Range/Units 06:58 07:09 07:09 Lymphocytes # 0.9 L (1.0-4.8) k/uL Glucose 267 H (74-99) mg/dL POC Glucose (mg/dL) 268 H (75-99) mg/dL Urine Glucose (UA) (Negative) 09/08/18 Range/Units 11:56 Lymphocytes # (1.0-4.8) k/uL Glucose (74-99) mg/dL POC Glucose (mg/dL) 253 H (75-99) mg/dL Urine Glucose (UA) (Negative) Microbiology - Last 24 Hours (Table) 09/07/18 19:33 Urine Culture - Preliminary Urine,Voided Assessment and Plan Assessment: Acute exacerbation of asthma, unknown type, new diagnosis Lifelong never smoker History of peripheral eosinophilia, likely masked this admission due to steroids Seasonal and environmental allergies Obesity, question obstructive sleep apnea Hypertension uncontrolled History of DVT GERD Dyslipidemia O2 to maintain saturation greater than or equal to 90%, patient currently on room air Pulmicort and duo nebs Singulair Pending IgE, hypersensitivity and allergy panel is Incentive spirometry and pulmonary hygiene Outpatient pulmonary function test and pulmonary follow-up CT of the chest reviewed Solumedrol taper Agree with ENT evaluation Monitor peak flows ABX: Azithro and Rocephin GI and DVT prophylaxis
[2018-09-08 16:58] LABS: Glucose,Whole Blood 315 mg/dL (75-99)
[2018-09-08] MEDS: methylPREDNISolone SOD SUCCI 40 MG/ML 1 ML VIAL IV SCH (17:59)
[2018-09-08 20:23] LABS: Glucose,Whole Blood 301 mg/dL (75-99)
[2018-09-08] MEDS: MONTELUKAST 10 MG TAB PO SCH (21:18)
[2018-09-09] MEDS: methylPREDNISolone SOD SUCCI 40 MG/ML 1 ML VIAL IV SCH (00:12)
[2018-09-09 01:56] LABS: Glucose,Whole Blood 223 mg/dL (75-99)
[2018-09-09] MEDS: SODIUM CHLORIDE 0.9% 1,000 ML IV SCH ×2 (02:17→17:27)
--- NOTE | 2018-09-09 02:36 | P.PN ---
Subjective Progress Note Date: 09/09/18 09/09/2018: Patient seen and examined. Patient is sleeping and has witnessed apnea. This is discussed with the patient and she will need outpatient pulmonary function test as well as polysomnogram. The patient had breathing treatments after her episode yesterday of feeling like her throat was closing u p. She states that she was able to tolerate the breathing treatments and she has not since had that feeling. ENT has been consulted due to abnormal CT neck. Objective - Vital Signs Vital signs: Vital Signs Temp 97.4 F L 09/08/18 20:51 Pulse 70 09/08/18 22:50 Resp 18 09/08/18 20:51 BP 157/66 09/08/18 22:50 Pulse Ox 97 09/08/18 20:51 Intake & Output 09/08/18 09/08/18 09/09/18 06:59 18:59 06:59 Intake Total 540 600 Balance 540 600 Weight 95.708 kg Intake: Oral 540 600 Other: Voiding Method Toilet # Voids 1 2 - Exam Gen.: Patient is alert and oriented 3, no acute distress, obese Cardiovascular: Regular rate and rhythm, S1/S2 Lungs: Diminished breath sounds bilaterally no wheezes rales or rhonchi Abdomen: Soft nontender nondistended positive bowel sounds Extremities: Trace edema - Labs CBC & Chem 7: 09/08/18 07:09 09/08/18 07:09 Labs: Abnormal Lab Results - Last 24 Hours (Table) 09/08/18 09/08/18 09/08/18 Range/Units 06:58 07:09 07:09 Lymphocytes # 0.9 L (1.0-4.8) k/uL Glucose 267 H (74-99) mg/dL POC Glucose (mg/dL) 268 H (75-99) mg/dL 09/08/18 09/08/18 09/08/18 Range/Units 11:56 16:57 20:22 Lymphocytes # (1.0-4.8) k/uL Glucose (74-99) mg/dL POC Glucose (mg/dL) 253 H 315 H 301 H (75-99) mg/dL 09/09/18 Range/Units 01:52 Lymphocytes # (1.0-4.8) k/uL Glucose (74-99) mg/dL POC Glucose (mg/dL) 223 H (75-99) mg/dL Microbiology - Last 24 Hours (Table) 09/07/18 19:33 Urine Culture - Final Urine,Voided Assessment and Plan Assessment: Acute exacerbation of asthma, unknown type, new diagnosis Lifelong never smoker History of peripheral eosinophilia, likely masked this admission due to steroids Seasonal and environmental allergies Obesity, question obstructive sleep apnea Hypertension uncontrolled History of DVT GERD Dyslipidemia Witness apnea Abnormal CT neck with thickening of the posterior soft palate and narrowing of the nasopharyngeal airway O2 to maintain saturation greater than or equal to 90%, patient currently on room air Pulmicort and duo nebs Singulair Pending IgE, hypersensitivity and allergy panel is Incentive spirometry and pulmonary hygiene Outpatient pulmonary function test and pulmonary follow-up, outpatient PSG CT of the chest reviewed Change to PO Prednisone taper Agree with ENT evaluation Monitor peak flows ABX: Azithro and Rocephin GI and DVT prophylaxis Discharge planning
[2018-09-09] MEDS: HYDROcodone/APAP 5-325MG 1 EACH TAB PO PRN ×2 (05:17→12:12)
[2018-09-09 06:51] LABS: Glucose,Whole Blood 260 mg/dL (75-99)
[2018-09-09] MEDS: BUDESONIDE 0.5 MG/2 ML NEBU INHALATION SCH ×2 (07:23→20:57)
[2018-09-09] MEDS: IPRATROPIUM-ALBUTEROL 3 ML NEB INHALATION SCH ×4 (07:23→20:57)
[2018-09-09] MEDS: traMADol 50 MG TAB PO PRN ×3 (08:36→23:25)
[2018-09-09] MEDS: predniSONE 20 MG TAB PO SCH (08:36)
[2018-09-09] MEDS: ALPRAZolam 0.25 MG TAB PO PRN ×2 (08:36→21:50)
[2018-09-09] MEDS: PANTOPRAZOLE 40 MG TABLET PO SCH (08:36)
[2018-09-09] MEDS: HEPARIN SODIUM,PORCINE 5,000 UNIT/ML 1 ML VIAL SQ SCH ×3 (08:38→23:29)
[2018-09-09] MEDS: SUCRALFATE 1 GM TAB PO SCH ×2 (08:39→17:23)
[2018-09-09] MEDS: AZITHROMYCIN 500 MG TAB PO SCH (08:39)
[2018-09-09] MEDS: glipiZIDE 5 MG TAB PO SCH (08:39)
[2018-09-09] MEDS: amLODIPine 5 MG TAB PO SCH (08:39)
[2018-09-09] MEDS: INSULIN ASPART (NovoLOG) 100 UNIT/ML VIAL SQ SCH ×4 (08:40→21:50)
[2018-09-09 11:33] LABS: Glucose,Whole Blood 202 mg/dL (75-99)
[2018-09-09 16:59] LABS: Glucose,Whole Blood 220 mg/dL (75-99)
[2018-09-09 20:44] LABS: Glucose,Whole Blood 210 mg/dL (75-99)
[2018-09-09] MEDS: MONTELUKAST 10 MG TAB PO SCH (21:48)
--- NOTE | 2018-09-09 23:00 | PN ---
PROGRESS NOTE SUBJECTIVE: This is a 62-year-old white female with COPD exacerbation, tracheobronchitis, asthma exacerbation, acute hypoxemic respiratory distress, anxiety; much improved with Xanax to go along with her updraft treatments and antibiotics. She has improved, possible discharge home tomorrow. Cardiovascular: S1-S2. Lungs: Scattered rhonchi and wheeze. Hematology: Negative Homans. Psych: Fair mood and affect. ASSESSMENT: COPD/asthma exacerbation, tracheobronchitis, acute hypoxemic respiratory distress. Continue current treatments. Follow up next 24-48 hours for possible discharge. Follow up with Ear, Nose, and Throat doctor as an outpatient for possible posterior pharyngeal obstruction. MMODL / IJN: [id number] /
[2018-09-10 06:57] LABS: Glucose,Whole Blood 106 mg/dL (75-99)
[2018-09-10] MEDS: IPRATROPIUM-ALBUTEROL 3 ML NEB INHALATION SCH ×4 (07:13→20:32)
[2018-09-10] MEDS: BUDESONIDE 0.5 MG/2 ML NEBU INHALATION SCH ×2 (07:13→20:32)
[2018-09-10] MEDS: amLODIPine 5 MG TAB PO SCH (07:44)
[2018-09-10] MEDS: PANTOPRAZOLE 40 MG TABLET PO SCH (07:44)
[2018-09-10] MEDS: predniSONE 20 MG TAB PO SCH (07:44)
[2018-09-10] MEDS: ALPRAZolam 0.25 MG TAB PO PRN ×2 (07:45→23:00)
[2018-09-10] MEDS: traMADol 50 MG TAB PO PRN ×3 (07:45→20:42)
[2018-09-10] MEDS: HEPARIN SODIUM,PORCINE 5,000 UNIT/ML 1 ML VIAL SQ SCH ×3 (07:45→23:50)
[2018-09-10] MEDS: SUCRALFATE 1 GM TAB PO SCH ×2 (07:48→17:19)
[2018-09-10] MEDS: AZITHROMYCIN 500 MG TAB PO SCH (07:49)
[2018-09-10] MEDS: glipiZIDE 5 MG TAB PO SCH (07:49)
[2018-09-10] MEDS: INSULIN ASPART (NovoLOG) 100 UNIT/ML VIAL SQ SCH ×4 (07:49→21:53)
[2018-09-10] MEDS: SODIUM CHLORIDE 0.9% 1,000 ML IV SCH ×2 (07:49→19:27)
[2018-09-10 11:25] LABS: Glucose,Whole Blood 57 mg/dL (75-99)
[2018-09-10 11:46] LABS: Glucose,Whole Blood 87 mg/dL (75-99)
[2018-09-10 17:11] LABS: Glucose,Whole Blood 109 mg/dL (75-99)
[2018-09-10 20:09] LABS: Glucose,Whole Blood 86 mg/dL (75-99)
--- NOTE | 2018-09-10 20:37 | PN ---
PROGRESS NOTE DATE OF SERVICE: September 10, 2018. She is less short of breath. Her sugars continue to remain high. PHYSICAL EXAMINATION: Respiratory rate is 17, pulse rate of 92, temperature 98.1, blood pressure 147/68, O2 saturation on room air is 97%. HEENT: Unremarkable. Chest reveals expiratory wheeze. Cardiovascular system is S1, S2. Abdomen is soft. There is no pedal edema. Sugar is 210 last night, 109 this morning. IMPRESSION: 1. Asthma with chronic obstructive pulmonary disease with acute exacerbation. 2. Elevated blood sugars in part due to steroids. 3. Obesity, possible obstructive sleep apnea. Increase activity level. Follow sugars closely. Keep her on systemic steroids. Await allergen and allergy associated labs on her. MMODL / IJN: [id number] /
[2018-09-10] MEDS: MONTELUKAST 10 MG TAB PO SCH (21:57)
[2018-09-11 07:06] LABS: Glucose,Whole Blood 93 mg/dL (75-99)
[2018-09-11] MEDS: INSULIN ASPART (NovoLOG) 100 UNIT/ML VIAL SQ SCH ×2 (08:02→11:24)
[2018-09-11] MEDS: ALPRAZolam 0.25 MG TAB PO PRN (08:07)
[2018-09-11] MEDS: SUCRALFATE 1 GM TAB PO SCH (08:07)
[2018-09-11] MEDS: PANTOPRAZOLE 40 MG TABLET PO SCH (08:07)
[2018-09-11] MEDS: AZITHROMYCIN 500 MG TAB PO SCH (08:07)
[2018-09-11] MEDS: predniSONE 20 MG TAB PO SCH (08:07)
[2018-09-11] MEDS: glipiZIDE 5 MG TAB PO SCH (08:07)
[2018-09-11] MEDS: amLODIPine 5 MG TAB PO SCH (08:07)
[2018-09-11] MEDS: HEPARIN SODIUM,PORCINE 5,000 UNIT/ML 1 ML VIAL SQ SCH (08:09)
[2018-09-11] MEDS: IPRATROPIUM-ALBUTEROL 3 ML NEB INHALATION SCH ×2 (08:53→13:04)
[2018-09-11] MEDS: BUDESONIDE 0.5 MG/2 ML NEBU INHALATION SCH (08:53)
[2018-09-11] MEDS: traMADol 50 MG TAB PO PRN (10:25)
[2018-09-11 11:18] LABS: Glucose,Whole Blood 103 mg/dL (75-99)
[2018-09-11] MEDS: SODIUM CHLORIDE 0.9% 1,000 ML IV SCH (11:26)
[2018-09-11 11:32] VITALS: BP 157/82; RESP 18; TEMP 97.7
[2018-09-11 13:09] VITALS: PULSE 84
--- NOTE | 2018-09-11 16:00 | PN ---
PROGRESS NOTE DATE OF SERVICE: 09/11/2018 Patient is a 62-year-old female who is seen sitting up in bed, is awake and alert, does feel better. Does state that her breathing has somewhat improved. Patient is planning to go home later on today. Patient is hemodynamically stable, afebrile, in no acute distress. PHYSICAL EXAMINATION: VITAL SIGNS: Temperature 97.7, heart rate 84, respiratory rate 18, blood pressure 157/82, oxygen saturation 95% on room air. HEENT: Head is normocephalic, atraumatic. Neck is supple. Trachea is midline. LUNGS: Decreased breath sounds. No clear rales or wheezes. HEART: S1 and S2 are heard. Not tachycardic. ABDOMEN: Soft. Bowel sounds are positive. Patient with trace pedal edema bilaterally. NEUROLOGIC: Patient is awake, alert and oriented. No new labs to review. No new imaging to review. IMPRESSION: 1. Asthma with chronic obstructive pulmonary disease with acute exacerbation. 2. Hyperglycemia related to steroid use. 3. Obesity; possible obstructive sleep apnea. PLAN: Continue current medications, which have been reviewed. Continue oral steroids on a tapering dose. Patient should follow up in the pulmonary clinic for further workup of asthma and COPD, including PFT and possible sleep study for obstructive sleep apnea. Plan was shared with the patient with understanding verbalized. MMODL / IJN: [id number] /
[2018-09-13 17:55] LABS: Alternaria Alternata IgG 10.5 mcg/mL (< 13.6); Aspergillus fumigatus IgG Not detected (Not detected); Aureobasidium pullulans IgG 11.3 mcg/mL (< 13.6); Cladosporium herbarium IgG 18.3 mcg/mL (< 14.7); Phoma ssp. IgG 9.1 mcg/mL (< 6.6); Saccaharomospora viridis Not detected (Not detected); Saccaharopoly. rectivirgula Not detected (Not detected)
[2018-09-14 14:56] LABS: Alt. alternata IgE Class CLASS 0; Alternaria alternata IgE <0.35 kU/L (<0.35); Asperg. fumagatus IgE <0.35 kU/L (<0.35); Asperg. fumagatus IgE Class CLASS 0; Bermuda Grass IgE <0.35 kU/L (<0.35); Birch(Com.Silvr) IgE <0.35 kU/L (<0.35); Birch(Com.Silvr) IgE Class CLASS 0; Cat Epith & Dander IgE <0.35 kU/L (<0.35); Cat Epith & Dander IgE Class CLASS 0; Clad herbarum IgE <0.35 kU/L (<0.35); Cockroach IgE <0.35 kU/L (<0.35); Cottonwood IgE <0.35 kU/L (<0.35); Dermato. Pteronyssinus IgE <0.35 kU/L (<0.35); Dermato. farinae IgE <0.35 kU/L (<0.35); Dermato. farinae IgE Class CLASS 0; Dog Dander IgE <0.35 kU/L (<0.35); Elm IgE <0.35 kU/L (<0.35); Maple (Box Elder) IgE <0.35 kU/L (<0.35); Maple (Box Elder) IgE Class CLASS 0; Mountain Cedar IgE <0.35 kU/L (<0.35); Mountain Cedar IgE Class CLASS 0; Mouse Urine IgE Class CLASS 0; Nettle IgE <0.35 kU/L (<0.35); Nettle IgE Class CLASS 0; Oak IgE <0.35 kU/L (<0.35); Penicillium notatum IgE Class CLASS 0; Rough Marshelder IgE <0.35 kU/L (<0.35); Rough Marshelder IgE Class CLASS 0; Timothy Grass IgE <0.35 kU/L (<0.35); White Ash IgE Class CLASS 0
== END 2018-09-11 16:20 | disposition home or self-care (01) | DRG 202 ==
LOC: 3NMEDONC 10:38
PROVIDERS: ADMIT Family Medicine; ATTEND Family Medicine
DX: J45.901 Unspecified asthma with (acute) exacerbation (principal); J44.1 Chronic obstructive pulmonary disease with (acute) exacerbation; Z68.41 Body mass index [BMI] 40.0-44.9, adult; R09.02 Hypoxemia; E11.65 Type 2 diabetes mellitus with hyperglycemia; E66.9 Obesity, unspecified; E78.5 Hyperlipidemia, unspecified; F41.9 Anxiety disorder, unspecified; G47.33 Obstructive sleep apnea (adult) (pediatric); I10 Essential (primary) hypertension; K21.9 Gastro-esophageal reflux disease without esophagitis; T38.0X5A Adverse effect of glucocorticoids and synthetic analogues, initial encounter; Z79.84 Long term (current) use of oral hypoglycemic drugs; Z79.899 Other long term (current) drug therapy; Z81.1 Family history of alcohol abuse and dependence; Z80.8 Family history of malignant neoplasm of other organs or systems; Z86.010 Personal history of colon polyps; Z86.718 Personal history of other venous thrombosis and embolism; Z87.11 Personal history of peptic ulcer disease; Z90.710 Acquired absence of both cervix and uterus; Z96.651 Presence of right artificial knee joint; Z88.5 Allergy status to narcotic agent; Z88.8 Allergy status to other drugs, medicaments and biological substances; Z91.041 Radiographic dye allergy status; I12.9 Hypertensive chronic kidney disease with stage 1 through stage 4 chronic kidney disease, or unspecified chronic kidney disease; E11.22 Type 2 diabetes mellitus with diabetic chronic kidney disease; N18.2 Chronic kidney disease, stage 2 (mild); M16.0 Bilateral primary osteoarthritis of hip; M17.0 Bilateral primary osteoarthritis of knee; R06.03 Acute respiratory distress; Z91.19 Patient's noncompliance with other medical treatment and regimen; G43.909 Migraine, unspecified, not intractable, without status migrainosus; Z87.442 Personal history of urinary calculi; H66.92 Otitis media, unspecified, left ear; D72.1 Eosinophilia
CPT/HCPCS: 70490; 71046; 71250; 80053; 81003; 82103; 82785; 83880; 84484; 85025; 85379; 86001; 86003; 86606; 86609; 87086; 93005; 93306; 94640

== ENCOUNTER → 2019-01-01 | Day surgery (SDC) | payer OTHER ==
[2018-12-29 11:35] VITALS: BMI 46.8
--- NOTE | 2018-12-31 11:26 | HP ---
HISTORY AND PHYSICAL REASON FOR ADMISSION: Surgery 01/01/2019 HISTORY OF PRESENT ILLNESS: Shalonda Smalls is a 63-year-old patient seen with persistent right knee adhesions and stiffness after previously having undergone right total knee arthroplasty. After options were discussed, she elected to proceed with manipulation under anesthesia right knee with steroid injection. Consent was obtained. PAST MEDICAL HISTORY: Hypertension, ijr-jnrsqkw-umdudkesp diabetes, asthma. PAST SURGICAL HISTORY: Hysterectomy, total knee arthroplasty. MEDICATIONS: Amlodipine, glipizide, tramadol, Ventolin. ALLERGIES: IV DYE. SOCIAL HISTORY: She denies current tobacco use. PHYSICAL EXAMINATION: Evaluation of the right knee: She has a well-healed anterior incision. Range of motion is -7/8 to 100 degrees. Her ligaments are stable. Hip rotation is without pain. Distal neurovascular exam is intact. RADIOGRAPHS: Radiographs of the right knee revealed a stable appearing total knee arthroplasty. IMPRESSION: 1. Right knee adhesions. 2. History of right total knee arthroplasty. 3. Hypertension. 4. Asthma. 5. Dhd-jikpqjp-qefpqndxr diabetes. PLAN: Manipulation under anesthesia right knee with steroid injection. Surgery scheduled 01/01/2019. MMODL / IJN: [id number] /
[~2019-01-01] MED LIST changes: -ACETAMINOPHEN TAB 500 MG TAB PO ONE; +HYDROcodone/APAP 7.5-325MG 1 EACH TAB PO ONE; +HYDROmorphone 1 MG/ML 1 ML SYRINGE IVP ONE; +LACTATED RINGERS 1,000 ML IV SCH; +LIDOCAINE 1% INJ 10MG/ML (20 ML MDV) ONE; -MELOXICAM 7.5 MG TAB PO ONE; +MIDAZOLAM 2 MG/2 ML VIAL ONE; -MORPHINE SULFATE 2 MG/ML SYRINGE IV PRN; -ONDANSETRON 4 MG/2 ML VIAL IVP ONE; +PROPOFOL 10 MG/ML 20 ML VIAL IV ONE; +Pre Op ABX Message 1 EACH MISC MISCELLANE ONE; -TRANEXAMIC ACID 1,000 MG in SODIUM CHLORIDE 0.9% 50 ML IVPB ONE; +ceFAZolin 1,000 MG VIAL IVPB ONE; -ceFAZolin IN SWFI 2 GM/20 ML SYRINGE IVP ONE; +fentaNYL (PF) 50 MCG/ML 2 ML AMP ONE
[2019-01-01 09:12] LABS: Glucose,Whole Blood 151 mg/dL (75-99)
[2019-01-01 09:13] VITALS: TEMP 97.7
--- NOTE | 2019-01-01 10:38 | P.OP ---
Date of Procedure: 01/01/19 Preoperative Diagnosis: Right knee adhesions Postoperative Diagnosis: Right knee adhesions Procedure(s) Performed: Manipulation under anesthesia right knee with steroid injection Anesthesia: MAC, local Surgeon: Felice Zendejas Estimated Blood Loss (ml): 0 Pathology: none sent Condition: stable Disposition: PACU Indications for Procedure: 63-year-old patient seen with persistent right knee adhesions after previously having undergone total knee arthroplasty. After having options regarding treatment discussed, she elected to proceed with manipulation under anesthesia right knee with intra-articular steroid injection Operative Findings: She description of procedure Description of Procedure: Patient was taken to monitored anesthesia area. The patient received preoperative IV antibiotics. The patient underwent IV sedation by the department of anesthesia. Once sufficient anesthesia was noted I performed a manipulation of the right knee achieving -3 extension and 130 of flexion with audible tearing of the adhesions. The superior lateral aspect of the right knee was prepped and draped in the normal sterile orthopedic fashion. I injected a mixture 1 mL Depo-Medrol and 3 mL quarter percent Marcaine intra-articular under sterile technique. The knee was again taken through range of motion. Sterile Band-Aid was applied. The patient was awakened having tolerated procedure well.
[2019-01-01 11:03] VITALS: RESP 16
[2019-01-01 11:38] VITALS: BP 138/81; PULSE 86
== END | disposition home or self-care (01) ==
LOC: OR 08:33
PROVIDERS: ATTEND Orthopaedic Surgery
DX: T84.89XA Other specified complication of internal orthopedic prosthetic devices, implants and grafts, initial encounter (principal); M25.661 Stiffness of right knee, not elsewhere classified; Z96.651 Presence of right artificial knee joint; I10 Essential (primary) hypertension; E11.9 Type 2 diabetes mellitus without complications; J44.9 Chronic obstructive pulmonary disease, unspecified; K21.9 Gastro-esophageal reflux disease without esophagitis; Z87.11 Personal history of peptic ulcer disease; Z90.710 Acquired absence of both cervix and uterus; Z79.84 Long term (current) use of oral hypoglycemic drugs; Z79.899 Other long term (current) drug therapy; Z79.891 Long term (current) use of opiate analgesic; Z91.041 Radiographic dye allergy status
CPT/HCPCS: 27570; J2250; J0690; J2001; J3010; J1170; J2704

== ENCOUNTER 2019-01-16 11:49 | Emergency (ER) | payer OTHER ==
[2019-01-16] MEDS ORDERED: MORPHINE SULFATE 4 MG/ML SYRINGE IV STA (12:22)
[2019-01-16] MEDS ORDERED: SODIUM CHLORIDE 0.9% 1,000 ML IV STA (12:22)
[2019-01-16 12:46] LABS: Basophils % (A) 1 %; Eosinophils # (A) 0.2 k/uL (0-0.7); Eosinophils % (A) 2 %; HCT 39.8 % (34.0-46.0); HGB 13.4 gm/dL (11.4-16.0); Lymphocytes # (A) 1.8 k/uL (1.0-4.8); Lymphocytes % (A) 28 %; MCH 30.6 pg (25.0-35.0); MCHC 33.8 g/dL (31.0-37.0); MCV 90.5 fL (80.0-100.0); Mean Platelet Volume 8.3; Monocytes # (A) 0.3 k/uL (0-1.0); Monocytes % (A) 5 %; Neutrophils % (A) 62 %; Platelet Count 200 k/uL (150-450); RBC 4.39 m/uL (3.80-5.40); RDW 15.1 % (11.5-15.5); WBC 6.4 k/uL (3.8-10.6)
[2019-01-16 12:58] LABS: Albumin 4.1 g/dL (3.5-5.0); Calcium 9.9 mg/dL (8.4-10.2); Potassium 3.6 mmol/L (3.5-5.1); Total Bilirubin 0.8 mg/dL (0.2-1.3); Total Protein 6.9 g/dL (6.3-8.2)
[2019-01-16 13:01] LABS: Appearance,Urine Cloudy (Clear); Bacteria,Urine Rare /hpf; Bilirubin,Urine Negative (Negative); Blood,Urine Trace (Negative); Color,Urine Yellow; Glucose,Urine (UA) Negative (Negative); Ketones,Urine Negative (Negative); Leukocyte Esterase,Urine Small (Negative); Mucus,Urine Occasional /hpf; Nitrite,Urine Negative (Negative); Protein,Urine Negative (Negative); RBC,Urine 2 /hpf (0-5); Specific Gravity,Urine 1.023 (1.001-1.035); Squamous Epithelial Cell,Urine 7 /hpf (0-4); Urobilinogen,Urine <2.0 mg/dL (<2.0); WBC,Urine 4 /hpf (0-5)
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
--- NOTE | 2019-01-16 13:35 | XR ---
EXAMINATION TYPE: XR KUB DATE OF EXAM: 01/16/2019 1:27 PM CLINICAL HISTORY: Abdominal pain TECHNIQUE: Single supine KUB image of the abdomen is obtained. COMPARISON: 05/25/2017 FINDINGS: No dilated large or small bowel is seen. Postsurgical change of in the left hemipelvis. Sta ble calculus overlying the right renal shadow exam of no additional suspicious calculi in the abdomen or pelvis. Cholecystectomy clips are partially visualized. Osseous structures appear intact. IMPRESSION: Nonobstructive bowel gas pattern. Stable right renal calculus in comparison to exam of 2017.
[2019-01-16] MEDS ORDERED: HYDROmorphone 1 MG/ML 1 ML SYRINGE IVP STA (14:31)
[2019-01-16] MEDS ORDERED: DIAZEPAM 5 MG/ML 2 ML INJ IVP STA (14:31)
[2019-01-16 15:52] VITALS: BP 136/63; PULSE 71; RESP 16; TEMP 98.3
== END 2019-01-16 15:51 | disposition home or self-care (01) ==
LOC: EC 11:49
DX: M62.830 Muscle spasm of back (principal); J45.909 Unspecified asthma, uncomplicated; I12.9 Hypertensive chronic kidney disease with stage 1 through stage 4 chronic kidney disease, or unspecified chronic kidney disease; E11.22 Type 2 diabetes mellitus with diabetic chronic kidney disease; N18.2 Chronic kidney disease, stage 2 (mild); M19.90 Unspecified osteoarthritis, unspecified site; G47.33 Obstructive sleep apnea (adult) (pediatric); Z99.89 Dependence on other enabling machines and devices; Z95.818 Presence of other cardiac implants and grafts; Z96.651 Presence of right artificial knee joint; Z79.84 Long term (current) use of oral hypoglycemic drugs; Z79.899 Other long term (current) drug therapy; Z91.041 Radiographic dye allergy status; Z88.8 Allergy status to other drugs, medicaments and biological substances
CPT/HCPCS: 36415; 80053; 82150; 83690; 85025; 81001; 87086; 74018; 99284; 96374; 96375 ×2; 96361; J2270; J3360; J1170

== ENCOUNTER → 2019-03-06 | Outpatient (CLI) | payer OTHER ==
--- NOTE | 2019-03-08 10:50 | MM ---
Reason for exam: screening (asymptomatic). Last mammogram was performed 3 years and 10 months ago. History: Patient is postmenopausal. Took estrogen for 18 years. Physical Findings: A clinical breast exam by your physician is recommended on an annual basis and results should be correlated with mammographic findings. MG Screening Mammo w CAD Bilateral CC and MLO view(s) were taken. Prior study comparison: May 16, 2015, bilateral MG 3d diag mammo w/cad ANDRAE. February 15, 2012, [facility] DIGITAL LEFT BREAST MAMMOGRAM w/CAD. There are benign appearing vascular calcifications bilaterally. There is no discrete abnormality. ASSESSMENT: Benign, BI-RAD 2 RECOMMENDATION: Routine screening mammogram of both breasts in 1 year.
== END | disposition home or self-care (01) ==
LOC: RADMAMWWP 07:32
PROVIDERS: ATTEND Family Medicine
DX: Z12.31 Encounter for screening mammogram for malignant neoplasm of breast (principal)
CPT/HCPCS: 77067

== ENCOUNTER 2019-06-07 11:38 | Emergency (ER) | payer OTHER ==
[2019-06-07] MEDS ORDERED: HYDROcodone/APAP 10-325MG 1 EACH TAB PO ONE (13:09)
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
--- NOTE | 2019-06-07 14:03 | XR ---
EXAMINATION TYPE: XR lumbar spine 2 or 3V DATE OF EXAM: 06/07/2019 Comparison: 09/09/2013 Clinical History: 63-year-old female lumbar back pain Findings: 5 lumbar type vertebral bodies. Cholecystectomy clips. Ymaa-kw-gvisjnxh endplate spondylosis especial ly L2-L4 levels. Facet arthropathy throughout. Vertebral body heights are preserved. Trace grade 1 re trolisthesis at L2-L3 unchanged from 2013. Impression: Mild to moderate degenerative disc disease L2-L4 levels. Facet arthropathy throughout. Unchanged trac e grade 1 retrolisthesis at L2-L3. No vertebral compression collapse.
--- NOTE | 2019-06-07 14:05 | XR ---
EXAMINATION TYPE: AP view pelvis and 2 views right hip DATE OF EXAM: 06/07/2019 COMPARISON: NONE HISTORY: 63 year-old female right hip pain with movement and palpation FINDINGS: Mild degenerative change at the hips. SI joints appear symmetric and intact as does the pubic symphys is. There is osteopenia but no displaced fracture seen. IMPRESSION: Mild bilateral hip OA. There is osteopenia without displaced fracture seen.
[2019-06-07 14:53] VITALS: BP 136/70; PULSE 94; RESP 17; TEMP 98.3
== END 2019-06-07 14:53 | disposition home or self-care (01) ==
LOC: EC 11:38
DX: M25.551 Pain in right hip (principal); M54.5 Low back pain; J45.909 Unspecified asthma, uncomplicated; N18.2 Chronic kidney disease, stage 2 (mild); E11.22 Type 2 diabetes mellitus with diabetic chronic kidney disease; I12.9 Hypertensive chronic kidney disease with stage 1 through stage 4 chronic kidney disease, or unspecified chronic kidney disease; M19.90 Unspecified osteoarthritis, unspecified site; Z88.8 Allergy status to other drugs, medicaments and biological substances; Z91.041 Radiographic dye allergy status; Z79.84 Long term (current) use of oral hypoglycemic drugs; Z79.899 Other long term (current) drug therapy; Z87.11 Personal history of peptic ulcer disease; Z86.010 Personal history of colon polyps; Z96.651 Presence of right artificial knee joint; Z98.890 Other specified postprocedural states; W54.1XXA Struck by dog, initial encounter
CPT/HCPCS: 72100; 73502; 99283

== ENCOUNTER → 2019-06-18 | Outpatient (CLI) | payer OTHER ==
--- NOTE | 2019-06-18 13:07 | XR ---
EXAMINATION TYPE: XR chest 2V DATE OF EXAM: 06/18/2019 COMPARISON: 09/07/2018 HISTORY: 63 year-old female shortness of breath and dyspnea, congestion. TECHNIQUE: Frontal and lateral views FINDINGS: The cardiomediastinal silhouette, aorta, and pulmonary vasculature are within normal limits. Mild int erstitial prominence is unchanged. No consolidation or pleural effusion. IMPRESSION: Chronic changes without acute cardiopulmonary process.
== END | disposition home or self-care (01) ==
LOC: RADXRMAIN 11:51
PROVIDERS: ATTEND Family Medicine
DX: R06.00 Dyspnea, unspecified (principal)
CPT/HCPCS: 71046

== ENCOUNTER → 2019-06-19 | Outpatient (CLI) | payer OTHER | END | disposition home or self-care (01) | LOC: CPPFTMAIN 13:01 | PROVIDERS: ATTEND Family Medicine | DX: R06.00 Dyspnea, unspecified (principal) | CPT/HCPCS: 94060; 94726; 94729 ==

== ENCOUNTER → 2019-07-18 | Day surgery (SDC) | payer OTHER ==
[2019-07-16 11:07] VITALS: BMI 39.6
[~2019-07-18] MED LIST changes: +ALPRAZolam 0.25 MG TAB PO PRN; +ALPRAZolam 0.5 MG TAB PO PRN; +ASPIRIN 325 MG TAB PO ONE; -HYDROcodone/APAP 7.5-325MG 1 EACH TAB PO ONE; +HYDROmorphone 0.5 MG/0.5 ML SYRINGE IVP STA; +HYDROmorphone 1 MG/ML 1 ML SYRINGE ONE; +IOPAMIDOL-370 125ML BTL INJ ONE; -LACTATED RINGERS 1,000 ML IV SCH; -LIDOCAINE 1% 20 ML VIAL (10MG/ML) FOR IV START INTRADERMA PRN; +LIDOCAINE 1% INJ 10MG/ML (20 ML MDV) SQ ONE; +MIDAZOLAM 2 MG/2 ML VIAL IVP ONE; -MIDAZOLAM 2 MG/2 ML VIAL ONE; +NITROGLYCERIN SL TABS 0.4 MG TAB SUBLINGUAL PRN; -PROPOFOL 10 MG/ML 20 ML VIAL IV ONE; -Pre Op ABX Message 1 EACH MISC MISCELLANE ONE; +RX INFO: IV CONTRAST WAS GIVEN 1 EACH MISC MISCELLANE PRN; +SODIUM CHLORIDE 0.9% 1,000 ML IV SCH; +SODIUM CHLORIDE 0.9% 1,000 ML in EMPTY BAG 1 BAG IV ONE; -ceFAZolin 1,000 MG VIAL IVPB ONE; +fentaNYL (PF) 50 MCG/ML 2 ML AMP IVP ONE
[2019-07-18 10:03] LABS: Glucose,Whole Blood 161 mg/dL (75-99)
[2019-07-18 10:05] VITALS: RESP 18; TEMP 97.8
[2019-07-18 15:39] VITALS: PULSE 61
[2019-07-18 17:29] VITALS: BP 137/80
--- NOTE | 2019-07-18 18:41 | CC ---
CARDIAC CATHETERIZATION REPORT INDICATION: Unstable angina. REFERRING PHYSICIAN: Dr. Tavo Lisa. PROCEDURE NOTE: After obtaining informed consent, left heart catheterization, coronary angiogram are performed via the right femoral artery using standard [place] catheters. The patient tolerated the procedure well without any obvious immediate complications. A femoral angiogram was performed and Angio-Seal was deployed for hemostasis. Patient received moderate conscious sedation. Total sedation time was 15 minutes. FINDINGS: HEMODYNAMICS: Left ventricular end-diastolic pressure is 18 mm. There is no significant gradient across the aortic valve. LEFT VENTRICULOGRAM: Left ventriculogram is not performed. ANGIOGRAPHIC DATA: LEFT MAIN CORONARY ARTERY: Left main coronary artery is a normal-sized vessel appears calcified but is free of significant stenosis. Divides into left anterior descending coronary artery and circumflex coronary artery. Both the LAD and circ appears calcified. There is a mild atherosclerotic heart in the proximal part of the LAD. CIRCUMFLEX CORONARY ARTERY: Circumflex coronary artery is a codominant vessel and is free of significant stenosis. RIGHT CORONARY ARTERY: Right coronary artery is a codominant system and is free of stenosis. CONCLUSION: Mild nonobstructive coronary artery disease involving LAD. PLAN: I reviewed angiographic data with the patient and told her that her symptoms are noncardiac in origin and her management is going to be in the form of risk factor modification. SHE IS ALLERGIC TO STATIN. I asked her to take an aspirin and continue the Cozaar along with the medications for diabetes that she is currently on. MMODL / IJN: [id number] /
--- NOTE | 2019-07-18 18:44 | LTR ---
DATE OF SERVICE: 07/18/[address] Lisa I performed cardiac catheterization on Shalonda Smalls. A detailed cardiac catheterization note is enclosed for your records. In brief, the cardiac catheterization reveals mild nonobstructive coronary artery disease involving LAD and patient's management is going to be in the form of risk factor modification and optimal medical therapy. Thank you for giving us the privilege to participate in the care of this pleasant lady. Sincerely, JOSÉ / CORTEZN: [id number] /
== END ==
LOC: CATHCVL 09:28
PROVIDERS: ATTEND Internal Medicine Cardiovascular Disease
DX: I25.110 Atherosclerotic heart disease of native coronary artery with unstable angina pectoris (principal); E11.9 Type 2 diabetes mellitus without complications; I10 Essential (primary) hypertension; M19.90 Unspecified osteoarthritis, unspecified site; Z79.2 Long term (current) use of antibiotics; Z79.84 Long term (current) use of oral hypoglycemic drugs; Z79.899 Other long term (current) drug therapy; Z91.048 Other nonmedicinal substance allergy status; Z90.710 Acquired absence of both cervix and uterus; Z90.49 Acquired absence of other specified parts of digestive tract; Z90.89 Acquired absence of other organs
CPT/HCPCS: 93458; C1769 ×2; C1760; C1894; J2250; J2001; J3010; J1170; Q9967

== ENCOUNTER 2019-07-20 18:41 | Inpatient (IN) | payer OTHER ==
[2019-07-20] MEDS ORDERED: MORPHINE SULFATE 4 MG/ML SYRINGE IV STA (19:11)
[2019-07-20] MEDS ORDERED: ASPIRIN 81 MG PO STA (19:11)
[2019-07-20] MEDS ORDERED: ONDANSETRON 4 MG/2 ML VIAL IVP STA ×2 (19:11→21:36)
[2019-07-20] MEDS ORDERED: PANTOPRAZOLE 40 MG/10 ML VIAL IVP STA (19:11)
[2019-07-20] MEDS ORDERED: SODIUM CHLORIDE 0.9% 1,000 ML IV STA (19:11)
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
[2019-07-20 20:02] LABS: Basophils # (A) 0.3 k/uL (0-0.2); Basophils % (A) 3 %; Eosinophils # (A) 0.2 k/uL (0-0.7); Eosinophils % (A) 2 %; HCT 41.6 % (34.0-46.0); HGB 13.6 gm/dL (11.4-16.0); Lymphocytes # (A) 2.4 k/uL (1.0-4.8); Lymphocytes % (A) 26 %; MCHC 32.7 g/dL (31.0-37.0); MCV 88.8 fL (80.0-100.0); Monocytes # (A) 0.6 k/uL (0-1.0); Monocytes % (A) 7 %; Neutrophils # (A) 5.7 k/uL (1.3-7.7); Neutrophils % (A) 62 %; Platelet Count 172 k/uL (150-450); RBC 4.69 m/uL (3.80-5.40); WBC 9.3 k/uL (3.8-10.6)
[2019-07-20 20:19] LABS: Calcium 9.4 mg/dL (8.4-10.2); Magnesium 1.7 mg/dL (1.6-2.3); Potassium 3.1 mmol/L (3.5-5.1); Total Bilirubin 0.7 mg/dL (0.2-1.3); Total Protein 6.5 g/dL (6.3-8.2)
[2019-07-20] MEDS ORDERED: diphenhydrAMINE 50 MG/ML 1 ML VIAL IVP STA (20:28)
[2019-07-20] MEDS ORDERED: HYDROmorphone 1 MG/ML 1 ML SYRINGE IVP STA (20:28)
[2019-07-20] MEDS ORDERED: FAMOTIDINE 20 MG TAB PO STA (20:29)
[2019-07-20] MEDS ORDERED: methylPREDNISolone SOD SUCCI 125 MG/2 ML VIAL IV STA (20:29)
[2019-07-20 21:10] LABS: Partial Thromboplastin Time 23.3 sec (22.0-30.0); Prothrombin Time 10.6 sec (9.0-12.0)
[2019-07-20 21:18] LABS: D-Dimer 0.74 mg/L FEU (<0.60)
--- NOTE | 2019-07-20 21:23 | CT ---
EXAMINATION TYPE: CT abdomen pelvis w con DATE OF EXAM: 07/20/2019 COMPARISON: 03/02/2018 HISTORY: abdominal pain, blood in stool CT DLP: 1354 mGycm Automated exposure control for dose reduction was used. CONTRAST: Performed with IV Contrast, patient injected with 80cc mL of Isovue 300. Multiple axial sections were obtained from the diaphragm to the pelvis with intravenous contrast. Lung bases are clear. There is no pleural effusion. Liver and spleen appear normal. Bile ducts are no t dilated. There is no pancreatic mass. There are clips from cholecystectomy. There is no adrenal mass. Stomach is intact. Kidneys show satisfactory contrast opacification. There is 7 mm calculus right kidney. There is no hydronephrosis. Ureters are not dilated. No retroperitonea l adenopathy. Bladder distends smoothly. There is no inguinal hernia. There are scattered sigmoid div erticula. There is no sign of diverticulitis. There is no evidence of a pelvic mass. Cecum is low in the pelvis. Appendix is not definitely seen. T here is no sign of thickened appendix. There is no mesenteric edema. There is no ascites or free air. Lumbar vertebra have normal alignment. There is no compression fracture. Bony pelvis is intact. Ther e is no evidence of a bowel obstruction. IMPRESSION: Mild sigmoid diverticulosis. No sign of diverticulitis. Nonobstructing right renal calculus no change compared to old exam.
[2019-07-20] MEDS ORDERED: DEXTROSE 50% SYRINGE 50 ML IVP STA (21:35)
[2019-07-20 21:44] LABS: Glucose,Whole Blood 78 mg/dL (75-99)
[2019-07-20] MEDS ORDERED: POTASSIUM CHLORIDE 20 MEQ in WATER FOR INJECTION 1 100ML.BAG IVPB ONE (22:00)
[2019-07-20 23:26] LABS: Appearance,Urine Clear (Clear); Bacteria,Urine Rare /hpf; Bilirubin,Urine Negative (Negative); Blood,Urine Negative (Negative); Color,Urine Yellow; Glucose,Urine (UA) Negative (Negative); Ketones,Urine Negative (Negative); Leukocyte Esterase,Urine Moderate (Negative); Mucus,Urine Rare /hpf; Nitrite,Urine Negative (Negative); PH, Urine 5.5 (5.0-8.0); Protein,Urine Negative (Negative); RBC,Urine <1 /hpf (0-5); Squamous Epithelial Cell,Urine <1 /hpf (0-4); Urobilinogen,Urine <2.0 mg/dL (<2.0); WBC,Urine 7 /hpf (0-5)
[2019-07-20 23:27] LABS: Specific Gravity,Urine >1.050 (1.001-1.035)
[2019-07-21] MEDS ORDERED: HYDROmorphone 1 MG/ML 1 ML SYRINGE IVP STA (00:24)
[2019-07-21] MEDS ORDERED: NALOXONE 0.4 MG/ML 1 ML VIAL IV PRN (01:21)
[2019-07-21] MEDS: SODIUM CHLORIDE 0.9% 1,000 ML IV SCH ×2 (02:00→11:30)
[2019-07-21] MEDS: HYDROmorphone 1 MG/ML 1 ML SYRINGE IVP PRN ×5 (02:38→21:45)
[2019-07-21 02:41] LABS: Glucose,Whole Blood 214 mg/dL (75-99)
[2019-07-21 05:58] LABS: Glucose,Whole Blood 234 mg/dL (75-99)
[2019-07-21 12:17] LABS: Glucose,Whole Blood 143 mg/dL (75-99)
[2019-07-21] MEDS ORDERED: PANTOPRAZOLE 40 MG/10 ML VIAL IVP SCH (14:45)
[2019-07-21 15:04] LABS: Basophils # (A) 0.1 k/uL (0-0.2); Basophils % (A) 1 %; Eosinophils # (A) 0.1 k/uL (0-0.7); Eosinophils % (A) 1 %; HCT 38.8 % (34.0-46.0); HGB 12.6 gm/dL (11.4-16.0); Lymphocytes % (A) 12 %; MCH 29.5 pg (25.0-35.0); MCHC 32.4 g/dL (31.0-37.0); MCV 90.9 fL (80.0-100.0); Mean Platelet Volume 8.3; Monocytes # (A) 0.3 k/uL (0-1.0); Monocytes % (A) 4 %; Neutrophils # (A) 6.6 k/uL (1.3-7.7); Neutrophils % (A) 81 %; Platelet Count 188 k/uL (150-450); RBC 4.27 m/uL (3.80-5.40); RDW 13.9 % (11.5-15.5); WBC 8.2 k/uL (3.8-10.6)
[2019-07-21 17:03] LABS: Glucose,Whole Blood 139 mg/dL (75-99)
[2019-07-21] MEDS: diphenhydrAMINE 50 MG/ML 1 ML VIAL IVP PRN (18:31)
[2019-07-21 20:54] LABS: Glucose,Whole Blood 147 mg/dL (75-99)
[2019-07-21] MEDS ORDERED: SUCRALFATE 1 GM TAB PO SCH (21:00)
[2019-07-21] MEDS: FAMOTIDINE 20 MG/2 ML VIAL IV SCH (21:44)
[2019-07-22] MEDS: SODIUM CHLORIDE 0.9% 1,000 ML IV SCH ×3 (01:16→17:59)
[2019-07-22] MEDS: HYDROmorphone 1 MG/ML 1 ML SYRINGE IVP PRN ×2 (02:17→21:41)
[2019-07-22 05:40] LABS: Glucose,Whole Blood 148 mg/dL (75-99)
[2019-07-22 07:39] LABS: Calcium 8.5 mg/dL (8.4-10.2); Potassium 4.2 mmol/L (3.5-5.1)
[2019-07-22] MEDS: FAMOTIDINE 20 MG/2 ML VIAL IV SCH ×2 (08:49→21:47)
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
[2019-07-22] MEDS: HYDROmorphone 0.5 MG/0.5 ML SYRINGE IVP PRN ×2 (10:47→17:58)
[2019-07-22] MEDS: LOSARTAN 50 MG TAB PO SCH (10:47)
[2019-07-22 12:28] LABS: Glucose,Whole Blood 90 mg/dL (75-99)
[2019-07-22] MEDS: INSULIN ASPART (NovoLOG) 100 UNIT/ML VIAL SQ SCH ×3 (12:43→21:39)
--- NOTE | 2019-07-22 13:00 | CONS ---
CONSULTATION DATE OF SERVICE: July 22, 2019. REASON FOR CONSULTATION: Abdominal pain. No nausea, vomiting, and rectal bleeding. HISTORY OF PRESENT ILLNESS: The patient is a 63-year-old pleasant white female who came into the emergency room yesterday complaining of diffuse abdominal pain, chest pain, rectal bleeding for the last few days duration. The patient has been having ongoing chronic abdominal pain almost a year. She describes the pain mostly in the epigastric area in the left lower quadrant area and occasionally in the periumbilical area. Symptoms are worse with eating. She has occasional nausea and vomiting. Last week she was admitted to the hospital with chest pain, underwent cardiac catheterization and was diagnosed with mild occlusive in the LAD. She was discharged home. For the last 3 days, she started noticing bright red blood per rectum. She had about 3 bowel movements 2 days ago that were bright red blood in nature. Yesterday, had 2 of them and today she had one episode. She came to the emergency room yesterday, had a CT of the abdomen and pelvis which showed mild sigmoid diverticulosis and nonobstructing renal calculi. She had an EGD and colonoscopy more than 5 years ago. PAST MEDICAL HISTORY: Significant for anxiety, degenerative joint disease, diabetes mellitus or hypertension. MEDICATIONS: At home, Cozaar, hydrochlorothiazide, Glucotrol, Carafate, Xanax, Ultram. PAST SURGICAL HISTORY: Appendectomy, cholecystectomy, cardiac catheterization, left knee arthroscopy. SOCIAL HISTORY: No smoking or alcohol use. FAMILY HISTORY: Father had brain cancer. Mother had liver disease. REVIEW OF SYSTEMS: CARDIOPULMONARY: She does have chest pain, but no shortness of breath. GENITOURINARY: No dysuria or hematuria. MUSCULOSKELETAL: Chronic back pain. NEUROLOGY: Unremarkable. PSYCHIATRIC anxiety. ENT/vision unremarkable. CONSTITUTIONAL: Weight loss of 60 pounds. No fever, chills, night sweats. HEMATOLOGY unremarkable. ENDOCRINE unremarkable. PHYSICAL EXAMINATION: She appears comfortable. No apparent distress. Vital signs stable. Blood pressure is 169/72, pulse 88, temperature 98.1. HEENT examination unremarkable. Conjunctivae pink. Sclerae anicteric. Oral cavity no lesions. NECK: No JVD or lymph node enlargement. CHEST: Clear to auscultation. HEART: Regular rate and rhythm. ABDOMEN: Soft. There was mild diffuse tenderness all over the abdomen. EXTREMITIES: No pedal edema. SKIN no rashes. NEUROLOGIC: Alert and oriented x3. No focal deficits. LABS: Done at the time of admission to the hospital: WBC 8.2, hemoglobin 12.6, platelets normal. Basic metabolic panel is within normal limits. BUN and creatinine are 22 and 0.92 respectively. AST, ALT, T-bilirubin and alkaline phosphatase are normal. Amylase and lipase are normal. Stool occult blood was positive. IMPRESSION: 1. This is a lady who presents to the hospital with diffuse abdominal pain mostly in the epigastric area, left lower quadrant abdominal area associated with nausea, vomiting, and intermittent rectal bleeding for the last few days duration. The abdominal pain has been ongoing for more than a year. CT of the abdomen was unremarkable other than sigmoid diverticulosis. 2. History of anxiety. 3. Coronary artery disease. 4. Hypertension and diabetes mellitus. RECOMMENDATIONS: we will proceed with an EGD and colonoscopy tomorrow. I discussed with the patient risks, benefits, and complications of the procedure and she is agreeable to it. In the meantime, she will be on clear liquid diet today. Continue with Protonix 40 mg daily and repeat CBC in the morning. Thank you for this consultation. MMODL / IJN: [id number] /
[2019-07-22] MEDS ORDERED: PEG 3350-NA SULF,BICARB,CL/KCL 4,000 ML BOTTLE PO ONE (16:00)
--- NOTE | 2019-07-22 17:26 | P.PN ---
Subjective Progress Note Date: 07/22/19 Principal diagnosis: Chest pain rule out acute coronary syndrome Abdominal pain/GI bleed Hypokalemia 63-year-old female patient with history of known coronary artery disease and di verticulosis who presents to ED with chest and abdominal pain along with rectal bleed; patient did have heart catheterization performed 2 days ago at which time she was diagnosed with mild occlusive blockage in the LAD 07/22/2019 Patient is seen and evaluated in room at bedside; continues to complain of epigastric pain; CT of abdomen and pelvis has been unremarkable except for mild sigmoid diverticulosis and nonobstructing renal calculi; patient remains on IV Protonix 40 mg every 12 hours; last EGD and colonoscopy was more than 5 years ago; patient has been evaluated by GI and recommendations are to proceed with EGD and colonoscopy tomorrow morning; we will continue to monitor CBC and type crossmatch and transfuse his hemoglobin is less than 8 Objective - Vital Signs Vital signs: Vital Signs Temp 98.1 F 07/22/19 08:00 Pulse 80 07/22/19 08:00 Resp 18 07/22/19 08:00 BP 169/72 07/22/19 08:00 Pulse Ox 95 07/22/19 08:00 Intake & Output 07/21/19 07/22/19 07/22/19 18:59 06:59 18:59 Intake Total 1717 1200 0 Output Total 100 Balance 1717 1100 0 Weight 93.9 kg Intake: Intake, IV Titration 800 800 Amount Sodium Chloride 0.9% 1, 800 800 000 ml @ 100 mls/hr IV . Q10H [facility] Rx#:[id number] Oral 917 400 0 Output: Urine 100 Other: Voiding Method Toilet Toilet Toilet - Exam - Constitutional General appearance: Present: average body habitus, cooperative, no acute di stress - EENT Eyes: Present: anicteric sclerae, EOMI, PERRLA, normal appearance ENT: Present: hearing grossly normal, normal oropharynx Ears: bilateral: normal - Neck Neck: Present: normal ROM. Absent: lymphadenopathy, rigidity, thyromegaly Carotids: negative: bruit present Thyroid: bilateral: normal size, negative: enlarged, nodule - Respiratory Respiratory: bilateral: CTA, negative: rales, rhonchi, wheezing - Cardiovascular Rhythm: regular Heart sounds: normal: S1, S2 Abnormal Heart Sounds: Absent: systolic murmur, diastolic murmur - Gastrointestinal General gastrointestinal: Present: normal bowel sounds, soft. Absent: distended, organomegaly, tenderness - Genitourinary Genitourinary Comment(s): deferred - Integumentary Integumentary: Present: normal turgor. Absent: jaundiced, rash, ulcer - Neurologic Neurologic: Present: CNII-XII intact. Absent: focal deficits - Musculoskeletal Musculoskeletal: Present: gait normal, strength equal bilaterally - Psychiatric Psychiatric: Present: A&O x's 3, appropriate affect, intact judgment & insight - Labs CBC & Chem 7: 07/21/19 14:49 07/22/19 06:29 Labs: Abnormal Lab Results - Last 24 Hours (Table) 07/21/19 07/21/19 07/21/19 Range/Units 12:08 17:02 20:53 Chloride (98-107) mmol/L BUN (7-17) mg/dL Glucose (74-99) mg/dL POC Glucose (mg/dL) 143 H 139 H 147 H (75-99) mg/dL 07/22/19 07/22/19 Range/Units 05:39 06:29 Chloride 109 H (98-107) mmol/L BUN 22 H (7-17) mg/dL Glucose 121 H (74-99) mg/dL POC Glucose (mg/dL) 148 H (75-99) mg/dL Assessment and Plan Assessment: 1. Chest pain rule out acute coronary syndrome; patient is status post recent cardiac catheterization - we will trend troponin every 43; monitor EKG; patient had recent cardiac catheterization done with apical; we will hold off on repeating echo and consult cardiology for further recommendations 2. GI bleed; Monitor H&H every 12 hours; Protonix 40 mg IV daily; monitor strict occult blood; we will hold off on aspirin; consult cardiology 3. Hypokalemia; Supplemented in ED; we will monitor electrolytes closely and supplement as needed 4. Hypertension; Patient's blood pressures have been softer; we will hold off on losartan 50 mg daily and hydrochlorothiazide 12.5 mg daily; monitor blood pressure closely and restart home medications once blood pressures improved 5. Diabetes mellitus type 2; Hold home dose of glipizide 5 mg by mouth daily at bedtime; we will monitor Accu-Cheks every before meals and at bedtime with insulin sliding scale DVT prophylaxis SCDs CODE STATUS; full code
[2019-07-22 17:56] LABS: Glucose,Whole Blood 73 mg/dL (75-99)
[2019-07-22 21:44] LABS: Glucose,Whole Blood 85 mg/dL (75-99)
[2019-07-23] MEDS: HYDROmorphone 1 MG/ML 1 ML SYRINGE IVP PRN ×3 (01:15→09:01)
[2019-07-23] MEDS: SODIUM CHLORIDE 0.9% 1,000 ML IV SCH ×2 (05:22→12:58)
[2019-07-23 07:15] LABS: Glucose,Whole Blood 82 mg/dL (75-99)
[2019-07-23] MEDS: INSULIN ASPART (NovoLOG) 100 UNIT/ML VIAL SQ SCH ×2 (07:26→11:48)
[2019-07-23 08:27] LABS: Basophils % (A) 1 %; Eosinophils # (A) 0.1 k/uL (0-0.7); Eosinophils % (A) 3 %; HCT 35.2 % (34.0-46.0); HGB 11.6 gm/dL (11.4-16.0); Lymphocytes # (A) 1.6 k/uL (1.0-4.8); Lymphocytes % (A) 32 %; MCH 30.3 pg (25.0-35.0); MCHC 32.9 g/dL (31.0-37.0); MCV 92.1 fL (80.0-100.0); Mean Platelet Volume 8.2; Monocytes # (A) 0.3 k/uL (0-1.0); Monocytes % (A) 6 %; Neutrophils # (A) 2.9 k/uL (1.3-7.7); Neutrophils % (A) 58 %; Platelet Count 143 k/uL (150-450); RBC 3.82 m/uL (3.80-5.40); RDW 14.2 % (11.5-15.5); WBC 5.1 k/uL (3.8-10.6)
[2019-07-23 08:47] LABS: African American GFR (CKD) >90 (>60 ml/min/1.73 sqM); Anion Gap 4 mmol/L; Blood Urea Nitrogen 15 mg/dL (7-17); Calcium 8.2 mg/dL (8.4-10.2); Carbon Dioxide 24 mmol/L (22-30); Chloride 107 mmol/L (98-107); Glucose 82 mg/dL (74-99); Non-African American GFR(CKD) 78 (>60 ml/min/1.73 sqM); Potassium 3.6 mmol/L (3.5-5.1); Sodium 135 mmol/L (137-145)
[2019-07-23] MEDS: LOSARTAN 50 MG TAB PO SCH (09:00)
[2019-07-23] MEDS ORDERED: HYDROCHLOROTHIAZIDE 12.5 MG CAP PO SCH (09:00)
[2019-07-23] MEDS: diphenhydrAMINE 50 MG/ML 1 ML VIAL IVP PRN (09:01)
[2019-07-23] MEDS: FAMOTIDINE 20 MG/2 ML VIAL IV SCH (09:01)
[2019-07-23] MEDS ORDERED: PROPOFOL 10 MG/ML 20 ML VIAL IV ONE (12:10)
[2019-07-23] MEDS ORDERED: LIDOCAINE 1% INJ 10MG/ML (20 ML MDV) ONE (12:10)
[2019-07-23] MEDS ORDERED: IV FLUID CONTINUATION 1,000 ML IV ONE (12:13)
[2019-07-23] MEDS ORDERED: PANTOPRAZOLE 40 MG TABLET PO SCH (12:30)
--- NOTE | 2019-07-23 12:32 | P.PCN ---
Date of Procedure: 07/23/19 Description of Procedure: BRIEF HISTORY: Patient is a 63-year-old female with a history of abdominal pain chronically over the past year. Describes pain diffusely across her abdomen in the epigastric region, left upper quadrant and with associated nausea and vomiting. She is also had some intermittent rectal bleeding. She previously had EGD and colonoscopy 5 years ago. She had computed tomography scan of the abdomen which was unremarkable other than sigmoid diverticulosis. Hemoglobin has remained stable. PROCEDURE PERFORMED: Esophagogastroduodenoscopy with biopsy. PREOPERATIVE DIAGNOSIS: Abdominal pain, epigastric abdominal pain, blood per rectum. ESTIMATED BLOOD LOSS: Minimal. IV sedation per anesthesia. PROCEDURE: After informed consent was obtained, the patient was brought into the endoscopy unit. IV sedation was administered by Anesthesia under continuous monitoring. Initially the Olympus GIF-190 video endoscope was inserted into the mouth. Esophagus intubated without any difficulty. It was gradually advanced into the stomach and duodenum and carefully examined. The bulb and the second part of the duodenum appeared normal, with biopsies taken to rule out celiac sprue. The scope at this time was withdrawn to the stomach, adequately insufflated with air, and upon careful examination, mucosa of the antrum, body, cardia and the fundus appeared normal, except for some mild erythema in the antrum and body suggestive of mild gastritis. The scope was then withdrawn into the esophagus. The GE junction was located at 40 cm from the incisors. The esophagus appeared normal. There were no erosions or ulcerations seen and the patient tolerated the procedure well. IMPRESSION: 1. Mild gastritis antrum body, biopsied . 2. Biopsies of the duodenum and GE junction. 3. No other pathology to explain patient's symptoms of persistent epigastric abdominal pain. RECOMMENDATIONS: The findings of this examination were discussed with the patient. Okay for full liquid diet, and to advance as tolerated. Protonix daily added to medical regimen. Dicyclomine [id number] also added, and can be switched to as needed when pain improved. Patient refused to do bowel prep and has had a normal hemoglobin, recommendations are that the patient follow up after discharge for colonoscopy which has been discussed with her at length. Okay for discharge when otherwise medically stable.
--- NOTE | 2019-07-23 12:53 | CONS ---
CONSULTATION CHIEF COMPLAINT: Chest pain. HISTORY OF PRESENT ILLNESS: Shalonda is a 63-year-old lady with history of diabetes, hypertension who was in the hospital just a week ago when she presented with symptoms of unstable angina, underwent cardiac catheterization that did not reveal significant obstructive coronary artery disease. She comes back in complaining of upper abdominal pain and vague chest pain. I have been consulted for chest discomfort. Her predominant symptom really is abdominal pain and her chest pain is sharp, atypical and nondescript. EKG on this admission showed sinus rhythm with nonspecific ST-T wave changes and poor R-wave progression. Cardiac enzymes have been negative. PAST MEDICAL HISTORY: Significant for mild nonobstructive CAD, hypertension, diabetes. MEDICATIONS: Medications at home include Xanax, hydrochlorothiazide, Cozaar 50 daily, Glucotrol, and tramadol. ALLERGIES: TO STATINS AND IV DYE. FAMILY HISTORY: Negative for premature coronary artery disease. SOCIAL HISTORY: Denies current smoking. REVIEW OF SYSTEMS: HEENT is unremarkable. CARDIOVASCULAR: As described above. RESPIRATORY as described above. GI negative. Genitourinary: Negative. ALLERGY/IMMUNOLOGY: Negative. SKIN negative. MUSCULOSKELETAL significant for arthritis. PSYCHOSOCIAL negative. ENDOCRINE negative. CONSTITUTIONAL negative. ONCOLOGICAL negative. COMMUNITY EDUCATOR negative. Rest of the system review is not relevant. PHYSICAL EXAMINATION: On exam, patient is afebrile. Vital signs are stable. There is no jugular venous distention. Carotid upstroke is normal. There is no bruit. Chest exam reveals good air entry bilaterally. Heart exam reveals first and second heart sounds. No gallop. Has a systolic murmur at the left lower sternal border. Abdomen is soft. Exam of the extremities did not reveal any edema. Peripheral pulses are felt. LAB: Show a creatinine of 0.9, hemoglobin is 12.6, platelet count is 188. ASSESSMENT: 1. Chest pain, atypical. 2. Abdominal pain, workup in progress. 3. Status post recent cardiac cath. The patient is doing well from cardiac standpoint. A CT scan of the abdomen showed a concern for diverticulitis, but was otherwise normal. Her groin is free of bleeding or hematoma. No further cardiac workup at this time and whenever the GI workup is done, she can be discharged home. She does not need telemetry. We will see the patient on an as-needed basis. MMODL / IJN: [id number] /
[2019-07-23] MEDS ORDERED: DICYCLOMINE 20 MG TAB PO SCH (13:00)
[2019-07-23 13:56] VITALS: BP 167/81; RESP 16; TEMP 97.7
[2019-07-23 14:59] VITALS: PULSE 85
[2019-07-23] MEDS ORDERED: ALPRAZolam 0.25 MG TAB PO PRN (15:02)
[2019-07-23] MEDS ORDERED: traMADol 50 MG TAB PO PRN (15:03)
[2019-07-23] MEDS ORDERED: Potassium Replacement Protocol 1 EACH MISC MISCELLANE PRN (16:08)
--- NOTE | 2019-07-23 16:24 | P.DS ---
Providers Date of admission: 07/23/19 09:36 Expected date of discharge: 07/23/19 Attending physician: Tavo Lisa Consults: 07/21/19 14:27 Consult Physician Routine Consulting Provider: Musa Chavez Consult Reason/Comments: chest pain Do you want consulting provider notified?: Yes 07/21/19 14:28 Consult Physician Routine Consulting Provider: Trang Chavez Consult Reason/Comments: GIB Do you want consulting provider notified?: Yes Primary care physician: [facility] Course: Final Diagnoses Chest pain, atypical as per cardiology in a patient with recent cardiac catheterization Abdominal pain, mild gastritis as per EGD. Biopsies obtained. Patient declined a colonoscopy at this time. Recommend outpatient colonoscopy. Peptic ulcer disease Diabetes mellitus Gastroesophageal reflux disease Hypertension Chronic kidney disease, stage II Obstructive sleep apnea does not use CPAP at home Anxiety Hospital course: This is a 63-year-old female admitted with chest pain, abdominal pain and multiple other medical issues. Evaluated by both cardiology and GI. Completed EGD reporting mild gastritis, with biopsies obtained, declined colonoscopy at this time. Bentyl and Protonix added to med regime as per GI. Significant clinical improvement. Cleared by GI for discharge. 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 States they have an appointment with the oncologist tomorrow regarding her 's diagnoses and that she needs to be discharged tonight. Patient being discharged home in a stable condition with guarded prognosis. The impression and plan of care has been dictated as directed. : I performed a history and examination of this patient, discussed the same with the dictator. I agree with the dictator's note ,documented as a scribe. Any additional findings or plans will be noted. Patient Condition at Discharge: Stable Plan - Discharge Summary Discharge Rx Participant: Yes New Discharge Prescriptions: New Dicyclomine [Bentyl] 20 mg PO QID #40 tab Pantoprazole [Protonix] 40 mg PO AC-BRKFST #30 tablet.dr Dumont traMADol HCL [Ultram] 50 mg PO TID PRN PRN Reason: Pain Sucralfate [Carafate] 1 gm PO BID ALPRAZolam [Xanax] 0.25 mg PO BID PRN PRN Reason: Anxiety glipiZIDE [Glucotrol] 5 mg PO HS Losartan [Cozaar] 50 mg PO DAILY Hydrochlorothiazide 12.5 mg PO DAILY Discharge Medication List traMADol HCL [Ultram] 50 mg PO TID PRN 09/07/18 [History] ALPRAZolam [Xanax] 0.25 mg PO BID PRN 12/29/18 [History] Sucralfate [Carafate] 1 gm PO BID 12/29/18 [History] glipiZIDE [Glucotrol] 5 mg PO HS 01/16/19 [History] Hydrochlorothiazide 12.5 mg PO DAILY 07/16/19 [History] Losartan [Cozaar] 50 mg PO DAILY 07/16/19 [History] Dicyclomine [Bentyl] 20 mg PO QID #40 tab 07/23/19 [Rx] Pantoprazole [Protonix] 40 mg PO AC-BRKFST #30 tablet. 07/23/19 [Rx] Follow up Appointment(s)/Referral(s): Tavo Lisa MD [Primary Care Provider] - 07/26/19 9:30 am (`) Cyrus Estrella MD [STAFF PHYSICIAN] - 08/09/19 1:30 pm Activity/Diet/Wound Care/Special Instructions: Liquid diet until symptoms resolve
[2019-07-23] MEDS ORDERED: glipiZIDE 5 MG TAB PO SCH (21:00)
== END 2019-07-23 16:53 | disposition home or self-care (01) | DRG 379 ==
LOC: EC 18:41 → 3SCARD 07-21 01:01 → 6NMEDSUR 07-22 13:53 → OBSVTOIN 07-23 09:36
PROVIDERS: ADMIT Family Medicine; ATTEND Family Medicine
PROC: 0DB98ZX Excision of Duodenum, Via Natural or Artificial Opening Endoscopic, Diagnostic (ICD-10-PCS; principal; 2019-07-23 08:35)
DX: K29.71 Gastritis, unspecified, with bleeding (principal); E11.22 Type 2 diabetes mellitus with diabetic chronic kidney disease; E87.6 Hypokalemia; F41.9 Anxiety disorder, unspecified; E66.9 Obesity, unspecified; G47.33 Obstructive sleep apnea (adult) (pediatric); G89.29 Other chronic pain; I12.9 Hypertensive chronic kidney disease with stage 1 through stage 4 chronic kidney disease, or unspecified chronic kidney disease; I25.10 Atherosclerotic heart disease of native coronary artery without angina pectoris; J45.909 Unspecified asthma, uncomplicated; K21.9 Gastro-esophageal reflux disease without esophagitis; K57.30 Diverticulosis of large intestine without perforation or abscess without bleeding; N18.2 Chronic kidney disease, stage 2 (mild); N20.0 Calculus of kidney; G43.909 Migraine, unspecified, not intractable, without status migrainosus; K64.9 Unspecified hemorrhoids; M19.90 Unspecified osteoarthritis, unspecified site; R07.89 Other chest pain; Z79.84 Long term (current) use of oral hypoglycemic drugs; Z79.899 Other long term (current) drug therapy; Z96.651 Presence of right artificial knee joint; Z90.710 Acquired absence of both cervix and uterus; Z87.442 Personal history of urinary calculi; Z87.11 Personal history of peptic ulcer disease; Z86.010 Personal history of colon polyps; Z90.49 Acquired absence of other specified parts of digestive tract; Z88.8 Allergy status to other drugs, medicaments and biological substances; Z86.718 Personal history of other venous thrombosis and embolism; Z87.820 Personal history of traumatic brain injury; Z91.041 Radiographic dye allergy status; Z68.39 Body mass index [BMI] 39.0-39.9, adult; Z81.1 Family history of alcohol abuse and dependence; Z83.79 Family history of other diseases of the digestive system; Z80.8 Family history of malignant neoplasm of other organs or systems
CPT/HCPCS: 36415; 43239; 74177; 80048; 80053; 81001; 82150; 82272; 83605; 83690; 83735; 84484; 85025; 85379; 85610; 85730; 88305; 93005

== ENCOUNTER → 2020-03-26 | Outpatient (CLI) | payer OTHER ==
--- NOTE | 2020-03-27 11:19 | MM ---
Reason for exam: screening (asymptomatic). Last mammogram was performed 1 year and 1 month ago. History: Patient is postmenopausal. Took estrogen for 18 years. Physical Findings: A clinical breast exam by your physician is recommended on an annual basis and results should be correlated with mammographic findings. MG Screening Mammo w CAD Bilateral CC and MLO view(s) were taken. Prior study comparison: March 06, 2019, bilateral MG screening mammo w CAD. May 16, 2015, bilateral MG 3d diag mammo w/cad ANDRAE. There are scattered fibroglandular densities. There are benign appearing vascular calcifications bilaterally. No significant changes when compared with prior studies. ASSESSMENT: Benign, BI-RAD 2 RECOMMENDATION: Routine screening mammogram of both breasts in 1 year.
== END | disposition home or self-care (01) ==
LOC: RADMAMWWP 07:20
PROVIDERS: ATTEND Family Medicine
DX: Z12.31 Encounter for screening mammogram for malignant neoplasm of breast (principal)
CPT/HCPCS: 77067

== ENCOUNTER → 2020-09-23 | Outpatient (CLI) | payer OTHER ==
--- NOTE | 2020-09-23 17:51 | XR ---
EXAMINATION TYPE: XR lumbar spine 2 or 3V DATE OF EXAM: 09/23/2020 COMPARISON: 06/07/2019 HISTORY: Back pain TECHNIQUE: 3 views FINDINGS: Lumbar vertebra have normal alignment. There is mild narrowing and spur formation at L2-3 a nd L3-4. The abdominal aorta is atheromatous. Posterior elements are intact. There is no compression fracture. Sacroiliac joints are intact. IMPRESSION: Mild spondylotic changes. No significant change compared to old exam. No fracture.
--- NOTE | 2020-09-23 17:52 | XR ---
EXAMINATION TYPE: XR wrist complete RT DATE OF EXAM: 09/23/2020 COMPARISON: NONE HISTORY: Pain TECHNIQUE: 4 views FINDINGS: There is some spurring at the radiocarpal joint. There is spurring at the scaphoid trapeziu m joint and the first carpometacarpal joint. I see no fracture nor dislocation. There are no erosions . IMPRESSION: Mild osteoarthritis. No fracture seen.
== END | disposition home or self-care (01) ==
LOC: RADXRMAIN 16:45
PROVIDERS: ATTEND Family Medicine
DX: M19.031 Primary osteoarthritis, right wrist (principal); M47.816 Spondylosis without myelopathy or radiculopathy, lumbar region
CPT/HCPCS: 72100

== ENCOUNTER 2020-09-28 08:47 | Emergency (ER) | payer OTHER ==
[2020-09-28 08:55] VITALS: BP 147/100; PULSE 87; RESP 20; TEMP 98
[2020-09-28] MEDS ORDERED: diazePAM 2 MG TAB PO STA (09:14)
[2020-09-28] MEDS ORDERED: KETOROLAC 15 MG/ML 1 ML VIAL IM STA (09:14)
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
== END 2020-09-28 09:43 | disposition home or self-care (01) ==
LOC: EC 08:47
DX: M54.42 Lumbago with sciatica, left side (principal); E11.9 Type 2 diabetes mellitus without complications; J45.909 Unspecified asthma, uncomplicated; K21.9 Gastro-esophageal reflux disease without esophagitis; G47.30 Sleep apnea, unspecified; I12.9 Hypertensive chronic kidney disease with stage 1 through stage 4 chronic kidney disease, or unspecified chronic kidney disease; N18.9 Chronic kidney disease, unspecified; M19.90 Unspecified osteoarthritis, unspecified site; F41.9 Anxiety disorder, unspecified; Z86.718 Personal history of other venous thrombosis and embolism; Z96.651 Presence of right artificial knee joint; Z79.899 Other long term (current) drug therapy; Z79.84 Long term (current) use of oral hypoglycemic drugs; Z91.041 Radiographic dye allergy status; Z88.8 Allergy status to other drugs, medicaments and biological substances
CPT/HCPCS: 99283; 96372; J1885

== ENCOUNTER 2020-10-17 08:57 | Emergency (ER) | payer OTHER ==
[2020-10-17 09:05] VITALS: RESP 18; TEMP 98.2
[2020-10-17] MEDS ORDERED: HYDROmorphone 1 MG/ML 1 ML SYRINGE IM STA (09:37)
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
--- NOTE | 2020-10-17 10:34 | US ---
EXAMINATION TYPE: US venous doppler duplex LE LT DATE OF EXAM: 10/17/2020 10:23 AM COMPARISON: Left lower extremity venous ultrasound February 26, 2012 CLINICAL HISTORY: pain. Pain SIDE PERFORMED: Left TECHNIQUE: The lower extremity deep venous system is examined utilizing real time linear array sonog caroline with graded compression, doppler sonography and color-flow sonography. VESSELS IMAGED: Common Femoral Vein Deep Femoral Vein Greater Saphenous Vein * Femoral Vein Popliteal Vein Small Saphenous Vein * Proximal Calf Veins (* superficial vessels) Left Leg: Negative for DVT Grayscale, color doppler, spectral doppler imaging performed of the deep veins of the left lower extr emity. There is normal flow, compressibility, vascular waveforms. IMPRESSION: No ultrasound evidence for acute DVT in the left lower extremity. No significant change f rom prior.
--- NOTE | 2020-10-17 11:24 | XR ---
EXAMINATION TYPE: XR lumbosacral spine min 4V DATE OF EXAM: 10/17/2020 CLINICAL HISTORY: Back pain down into left leg. TECHNIQUE: Frontal, lateral, and oblique images of the lumbar spine are obtained. COMPARISON: Lumbar spine x-ray September 23, 2020 FINDINGS: There are 5 lumbar type vertebral bodies redemonstrated. The lumbar spine shows straighte snow alignment without evidence of acute fracture or dislocation. Mild to moderate disc space narrowin g and anterior spurring L2-L3 and L3-L4 levels. Vertebral body heights are maintained. The oblique i mages appear within normal limits. Mild vascular calcification overlying the aorta. Cholecystectomy c lips noted. Stable 1.1 cm lower pole right renal calculus at L2-L3 disc space level. IMPRESSION: As above.
[2020-10-17 11:30] VITALS: BP 142/82; PULSE 96
[2020-10-17] MEDS ORDERED: DIAZEPAM 5 MG/ML 2 ML INJ IM STA (11:35)
[2020-10-17] MEDS ORDERED: HYDROcodone/APAP 5-325MG 1 EACH TAB PO STA (11:35)
== END 2020-10-17 12:10 | disposition home or self-care (01) ==
LOC: EC 08:57
DX: M54.17 Radiculopathy, lumbosacral region (principal); M79.662 Pain in left lower leg; J45.909 Unspecified asthma, uncomplicated; E11.22 Type 2 diabetes mellitus with diabetic chronic kidney disease; I12.9 Hypertensive chronic kidney disease with stage 1 through stage 4 chronic kidney disease, or unspecified chronic kidney disease; N18.2 Chronic kidney disease, stage 2 (mild); M19.90 Unspecified osteoarthritis, unspecified site; G47.33 Obstructive sleep apnea (adult) (pediatric); G43.909 Migraine, unspecified, not intractable, without status migrainosus; F41.9 Anxiety disorder, unspecified; Z79.84 Long term (current) use of oral hypoglycemic drugs; Z79.899 Other long term (current) drug therapy; Z86.718 Personal history of other venous thrombosis and embolism
CPT/HCPCS: 72110; 93971; 99284; 96372 ×2; J3360; J1170; 99283

== ENCOUNTER 2020-11-09 21:14 | Emergency (ER) | payer OTHER ==
[2020-11-09 21:20] VITALS: TEMP 97.9
[2020-11-09] MEDS ORDERED: KETOROLAC 15 MG/ML 1 ML VIAL IM STA (21:30)
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
[2020-11-09 21:53] LABS: Appearance,Urine Clear (Clear); Bilirubin,Urine Negative (Negative); Blood,Urine Negative (Negative); Color,Urine Yellow; Glucose,Urine (UA) 3+ (Negative); Hyaline Casts,Urine 3 /lpf (0-2); Ketones,Urine Negative (Negative); Leukocyte Esterase,Urine Large (Negative); Mucus,Urine Rare /hpf; Nitrite,Urine Negative (Negative); PH, Urine 5.5 (5.0-8.0); Protein,Urine Negative (Negative); RBC,Urine 1 /hpf (0-5); Specific Gravity,Urine 1.022 (1.001-1.035); Squamous Epithelial Cell,Urine <1 /hpf (0-4); Urobilinogen,Urine <2.0 mg/dL (<2.0); WBC,Urine 17 /hpf (0-5)
[2020-11-09] MEDS ORDERED: HYDROmorphone 1 MG/ML 1 ML SYRINGE IM STA (22:07)
--- NOTE | 2020-11-09 23:25 | CT ---
EXAMINATION TYPE: CT lumbar spine wo con DATE OF EXAM: 11/09/2020 COMPARISON: CT abdomen 03/02/2018 HISTORY: back pain CT DLP: 948.7 mGycm Automated exposure control for dose reduction was used. Images obtained from the level of T12-S3 vertebra without contrast. There is normal alignment of the lumbar vertebra. There is mild spurring of the endplates anteriorly at L2-3 and L3-4. There is no compression fracture. Posterior elements are intact. I see no focal bon e destruction. Abdominal aorta is atheromatous. There is no lumbar paraspinal mass. There is some mil d hypertrophic facet arthropathy and minimal lateral recess stenosis at L4-5. There is evidence of a large broad-based posterior disc herniation at L3-4 with narrowing of the spinal canal. There is mode rate spinal stenosis at L3-4. There is mild posterior left side disc herniation at L2-3. There is 1 c m calculus lower pole of the right kidney. Unchanged. The sacroiliac joints are intact. I see no bony destructive process. Sacrum appears intact. IMPRESSION: Multilevel spondylotic changes. There is some spinal stenosis at L3-4 and L4-5. This appears worse at L3-4 compared to old exam. There is posterior lateral left side disc herniation at L2-3 similar to o ld exam. No fracture. No acute bony abnormality.
[2020-11-09] MEDS ORDERED: ACET/COD 300 MG/30 MG STARTER PACK 6 TAB BTL PO STA (23:55)
[2020-11-09] MEDS ORDERED: CEPHALEXIN 500MG STARTER PACK 4 CAP BTL PO STA (23:56)
[2020-11-10 00:32] VITALS: BP 154/67; PULSE 74; RESP 18
== END 2020-11-10 00:32 | disposition home or self-care (01) ==
LOC: EC 21:14
DX: M54.9 Dorsalgia, unspecified (principal); N39.0 Urinary tract infection, site not specified; E11.22 Type 2 diabetes mellitus with diabetic chronic kidney disease; I12.9 Hypertensive chronic kidney disease with stage 1 through stage 4 chronic kidney disease, or unspecified chronic kidney disease; J45.909 Unspecified asthma, uncomplicated; N18.2 Chronic kidney disease, stage 2 (mild); Z88.8 Allergy status to other drugs, medicaments and biological substances; Z87.442 Personal history of urinary calculi; Z91.041 Radiographic dye allergy status; Z79.84 Long term (current) use of oral hypoglycemic drugs; Z79.899 Other long term (current) drug therapy
CPT/HCPCS: 99284 ×2; 96372; 51798; 81001; 87086; 72131; J1170; J1885; 99283

== ENCOUNTER 2020-11-19 21:16 | Emergency (ER) | payer OTHER ==
[2020-11-19 21:25] VITALS: RESP 18; TEMP 98.4
[2020-11-19] MEDS ORDERED: SODIUM CHLORIDE 0.9% 500 ML 500 ML IV STA (21:40)
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
--- NOTE | 2020-11-19 22:02 | CT ---
EXAMINATION TYPE: CT brain wo con DATE OF EXAM: 11/19/2020 COMPARISON: 07/02/2016 HISTORY: Left arm weakness, headache and confusion. CT DLP: 1056.4 mGycm Automated exposure control for dose reduction was used. Ventricles and sulci appear normal. There is no mass effect nor midline shift. There is no sign of in tracranial hemorrhage. Calvarium is intact. IMPRESSION: Negative unenhanced head CT scan.
[2020-11-19 22:05] LABS: Basophils % (A) 1 %; Eosinophils # (A) 0.2 k/uL (0-0.7); Eosinophils % (A) 4 %; HCT 36.8 % (34.0-46.0); HGB 12.8 gm/dL (11.4-16.0); Lymphocytes % (A) 36 %; MCH 31.8 pg (25.0-35.0); MCHC 34.9 g/dL (31.0-37.0); MCV 91.3 fL (80.0-100.0); Mean Platelet Volume 8.3; Monocytes # (A) 0.3 k/uL (0-1.0); Monocytes % (A) 6 %; Neutrophils # (A) 2.9 k/uL (1.3-7.7); Neutrophils % (A) 53 %; Platelet Count 199 k/uL (150-450); RBC 4.03 m/uL (3.80-5.40); WBC 5.5 k/uL (3.8-10.6)
--- NOTE | 2020-11-19 22:08 | XR ---
EXAMINATION TYPE: XR chest 2V DATE OF EXAM: 11/19/2020 COMPARISON: 06/18/2019 HISTORY: Altered mental status TECHNIQUE: FINDINGS: Heart and mediastinum are normal. Lungs are clear. Diaphragm is normal. Bony thorax is inta ct. IMPRESSION: Normal chest. No change.
[2020-11-19 22:15] LABS: Partial Thromboplastin Time 24.4 sec (22.0-30.0); Prothrombin Time 10.8 sec (9.0-12.0)
[2020-11-19 22:31] LABS: Calcium 9.8 mg/dL (8.4-10.2); Potassium 3.4 mmol/L (3.5-5.1); Total Bilirubin 0.5 mg/dL (0.2-1.3); Total Protein 6.5 g/dL (6.3-8.2)
[2020-11-19 23:47] LABS: Appearance,Urine Cloudy (Clear); Bilirubin,Urine Negative (Negative); Blood,Urine Negative (Negative); Color,Urine Yellow; Glucose,Urine (UA) Negative (Negative); Hyaline Casts,Urine 1 /lpf (0-2); Ketones,Urine Negative (Negative); Leukocyte Esterase,Urine Large (Negative); Mucus,Urine Occasional /hpf; Nitrite,Urine Negative (Negative); Protein,Urine Negative (Negative); RBC,Urine 8 /hpf (0-5); Specific Gravity,Urine 1.023 (1.001-1.035); Squamous Epithelial Cell,Urine 5 /hpf (0-4); Urobilinogen,Urine <2.0 mg/dL (<2.0); WBC,Urine 117 /hpf (0-5)
[2020-11-20 00:10] VITALS: BP 123/68; PULSE 88
[2020-11-20] MEDS ORDERED: ASPIRIN 81 MG PO STA (00:38)
[2020-11-20] MEDS ORDERED: cefTRIAXone IN SWFI 1,000 MG/10 ML SYRINGE IVP STA (00:38)
== END 2020-11-20 00:55 | disposition home or self-care (01) ==
LOC: EC 21:16
DX: N39.0 Urinary tract infection, site not specified (principal); R41.0 Disorientation, unspecified; R53.1 Weakness; R51.9 Headache, unspecified; I12.9 Hypertensive chronic kidney disease with stage 1 through stage 4 chronic kidney disease, or unspecified chronic kidney disease; E11.22 Type 2 diabetes mellitus with diabetic chronic kidney disease; N18.2 Chronic kidney disease, stage 2 (mild); J45.909 Unspecified asthma, uncomplicated; M19.90 Unspecified osteoarthritis, unspecified site; K21.9 Gastro-esophageal reflux disease without esophagitis; F41.9 Anxiety disorder, unspecified; G47.33 Obstructive sleep apnea (adult) (pediatric); Z86.718 Personal history of other venous thrombosis and embolism; Z87.11 Personal history of peptic ulcer disease; Z87.442 Personal history of urinary calculi; Z79.82 Long term (current) use of aspirin; Z79.84 Long term (current) use of oral hypoglycemic drugs; Z79.1 Long term (current) use of non-steroidal anti-inflammatories (NSAID); Z79.899 Other long term (current) drug therapy; Z96.651 Presence of right artificial knee joint
CPT/HCPCS: 36415; 80053; 83605; 84484; 85025; 85610; 85730; 81001; 87086; 71046; 70450; 99285; 96374; J0696

== ENCOUNTER → 2020-11-20 | Outpatient (CLI) | payer OTHER ==
--- NOTE | 2020-11-20 08:53 | MR ---
EXAMINATION TYPE: MR lumbar spine wo con DATE OF EXAM: 11/20/2020 COMPARISON: CT lumbar spine November 09, 2020 HISTORY: Low back pain into left leg for 3 months per patient. TECHNIQUE: Multiplanar, multisequence imaging of the lumbar spine is performed without IV contrast. FINDINGS: Sagittal images of the lumbar spine show vertebral body heights to remain satisfactory. Sli ght grade 1 retrolisthesis L2 on L3 and to lesser degree L3 on L4 redemonstrated. Multilevel disc morenita iccation. And mild to moderate disc space narrowing and anterior spurring L2-L3 and L3-L4 levels The conus medullaris is normal in position and signal ending at mid L1 level. The bone marrow signal in tensity is within normal limits. Axial images show T12-L1 and L1-L2 levels to appear within normal limits. Axial images at L2-L3 level show spondylolisthesis with mild/moderate broad-based posterior disc prot rusion mildly effacing the anterior thecal sac, there is mild bilateral anterior inferior neural fora noah narrowing. Axial images at L3-L4 level shows spondylolisthesis with moderate broad disc bulge and focal left par acentral/foraminal disc protrusion component, this effaces the lateral recess in the central left L4 nerve seen best on axial image 12. [id number] bilateral inferior neural foraminal narrowing. Axial images at the L4-L5 level show mild/moderate facet arthropathy bilaterally. There is smaller le ss focal left paracentral disc protrusion effacing the lateral recess. Spinal canal preserved. Patent bilateral neural foramina. Axial images at L5-S1 level mild/moderate facet arthropathy bilaterally. Tiny central disc protrusion without spinal canal is preserved as is increased epidural fat at this level. Patent bilateral neura l foramina. Paraspinal muscle bulk is maintained. IMPRESSION: Multilevel degenerative changes in the lumbar spine greatest at L3-L4 level with encroach ment on the central left L4 nerve thought Present. Findings correlate with patient's symptoms. Furthe r details as discussed above.
== END | disposition home or self-care (01) ==
LOC: RADMRIMAIN 07:36
PROVIDERS: ATTEND Orthopaedic Surgery
DX: M47.816 Spondylosis without myelopathy or radiculopathy, lumbar region (principal); M51.27 Other intervertebral disc displacement, lumbosacral region; M43.16 Spondylolisthesis, lumbar region
CPT/HCPCS: 72148

== ENCOUNTER 2020-11-24 18:29 | Emergency (ER) | payer OTHER ==
[2020-11-24 18:43] VITALS: TEMP 98.5
[2020-11-24] MEDS ORDERED: MORPHINE SULFATE 4 MG/ML SYRINGE IVP STA (18:54)
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
[2020-11-24 19:20] LABS: Basophils % (A) 1 %; Eosinophils # (A) 0.2 k/uL (0-0.7); Eosinophils % (A) 4 %; HCT 37.8 % (34.0-46.0); HGB 13.3 gm/dL (11.4-16.0); Lymphocytes # (A) 1.3 k/uL (1.0-4.8); Lymphocytes % (A) 26 %; MCH 31.8 pg (25.0-35.0); MCHC 35.2 g/dL (31.0-37.0); MCV 90.2 fL (80.0-100.0); Mean Platelet Volume 7.7; Monocytes # (A) 0.3 k/uL (0-1.0); Monocytes % (A) 6 %; Neutrophils # (A) 3.1 k/uL (1.3-7.7); Neutrophils % (A) 62 %; Platelet Count 191 k/uL (150-450); RDW 14.2 % (11.5-15.5); WBC 4.9 k/uL (3.8-10.6)
[2020-11-24 19:39] LABS: Albumin 4.2 g/dL (3.5-5.0); Calcium 9.7 mg/dL (8.4-10.2); Potassium 3.1 mmol/L (3.5-5.1); Total Bilirubin 0.9 mg/dL (0.2-1.3); Total Protein 6.8 g/dL (6.3-8.2)
[2020-11-24 20:13] LABS: Appearance,Urine Clear (Clear); Color,Urine Yellow
[2020-11-24 20:14] LABS: Bilirubin,Urine Negative (Negative); Blood,Urine Negative (Negative); Glucose,Urine (UA) Negative (Negative); Ketones,Urine 1+ (Negative); Nitrite,Urine Negative (Negative); PH, Urine 5.5 (5.0-8.0); Protein,Urine Negative (Negative); Specific Gravity,Urine >1.030 (1.001-1.035); Urobilinogen,Urine <2.0 mg/dL (<2.0)
[2020-11-24 20:15] LABS: Leukocyte Esterase,Urine Large (Negative)
--- NOTE | 2020-11-24 20:23 | XR ---
EXAMINATION TYPE: XR lumbar spine 2 or 3V DATE OF EXAM: 11/24/2020 COMPARISON: 10/17/2020 HISTORY: Low back pain TECHNIQUE: 3 views lumbar spine FINDINGS: 5 lumbar-type vertebral bodies. Pedicles are intact. Disc space narrowing is present at L3- 4 and L2-3. Spondylosis is present t2-3 and L3-4. IMPRESSION: 1. Degenerative disc changes present at L2-3 and L3-4. 2. Findings are stable from comparison.
[2020-11-24 20:29] LABS: Bacteria,Urine Rare /hpf; Hyaline Casts,Urine 11 /lpf (0-2); Mucus,Urine Occasional /hpf; RBC,Urine 2 /hpf (0-5); Squamous Epithelial Cell,Urine 6 /hpf (0-4); WBC,Urine 60 /hpf (0-5)
[2020-11-24] MEDS ORDERED: POTASSIUM CHLORIDE ER 20 MEQ TAB.ER PO STA (20:31)
[2020-11-24 21:27] VITALS: BP 137/64; PULSE 90; RESP 16
== END 2020-11-24 21:26 | disposition home or self-care (01) ==
LOC: EC 18:29
DX: N39.0 Urinary tract infection, site not specified (principal); M54.42 Lumbago with sciatica, left side; I12.9 Hypertensive chronic kidney disease with stage 1 through stage 4 chronic kidney disease, or unspecified chronic kidney disease; E11.22 Type 2 diabetes mellitus with diabetic chronic kidney disease; N18.2 Chronic kidney disease, stage 2 (mild); J45.909 Unspecified asthma, uncomplicated; K21.9 Gastro-esophageal reflux disease without esophagitis; G43.909 Migraine, unspecified, not intractable, without status migrainosus; M19.90 Unspecified osteoarthritis, unspecified site; G47.33 Obstructive sleep apnea (adult) (pediatric); F41.9 Anxiety disorder, unspecified; Z86.711 Personal history of pulmonary embolism; Z86.718 Personal history of other venous thrombosis and embolism; Z79.82 Long term (current) use of aspirin; Z79.84 Long term (current) use of oral hypoglycemic drugs
CPT/HCPCS: 36415; 80053; 85025; 81001; 87086; 72100; 99283; 96374; J2270

== ENCOUNTER 2020-11-28 13:13 | Inpatient (IN) | payer MEDICARE, OTHER ==
[2020-11-28 16:37] LABS: Glucose,Whole Blood 157 mg/dL (75-99)
[2020-11-28] MEDS: methylPREDNISolone SOD SUCCI 40 MG/ML 1 ML VIAL IV SCH (18:00)
[2020-11-28] MEDS: HYDROmorphone 0.5 MG/0.5 ML SYRINGE IVP PRN ×2 (18:02→22:30)
[2020-11-28 18:15] LABS: HCT 38.2 % (34.0-46.0); HGB 12.6 gm/dL (11.4-16.0); MCH 30.7 pg (25.0-35.0); MCHC 33.1 g/dL (31.0-37.0); Mean Platelet Volume 7.8; Platelet Count 211 k/uL (150-450); RBC 4.11 m/uL (3.80-5.40); RDW 14.8 % (11.5-15.5); WBC 5.8 k/uL (3.8-10.6)
[2020-11-28] MEDS: SODIUM CHLORIDE 0.9% 1,000 ML IV SCH (18:25)
--- NOTE | 2020-11-28 18:27 | CT ---
EXAMINATION TYPE: CT brain wo con DATE OF EXAM: 11/28/2020 COMPARISON: 11/19/2020 HISTORY: Left sided weakness. CT DLP: 1043.4 mGycm Automated exposure control for dose reduction was used. Ventricles have normal size. There is no mass effect nor midline shift. There is no sign of intracran ial hemorrhage. Skull base is intact. There is normal aeration of the right side mastoid sinus. There is incomplete aeration left mastoid sinus. Calvarium is intact. IMPRESSION: Negative unenhanced head CT scan. No change.
[2020-11-28] MEDS ORDERED: LORATADINE 10 MG TAB PO PRN (20:27)
[2020-11-28] MEDS ORDERED: ALPRAZolam 0.25 MG TAB PO PRN (20:27)
[2020-11-28 20:30] LABS: Glucose,Whole Blood 122 mg/dL (75-99)
[2020-11-28] MEDS: GABAPENTIN 100 MG CAP PO SCH (20:49)
[2020-11-28] MEDS: CYCLOBENZAPRINE 10 MG TAB PO SCH (20:49)
[2020-11-28 22:10] LABS: Appearance,Urine Cloudy (Clear); Bacteria,Urine Rare /hpf; Bilirubin,Urine Negative (Negative); Blood,Urine Negative (Negative); Color,Urine Yellow; Glucose,Urine (UA) Negative (Negative); Ketones,Urine Negative (Negative); Leukocyte Esterase,Urine Large (Negative); Mucus,Urine Rare /hpf; Nitrite,Urine Negative (Negative); Protein,Urine Trace (Negative); RBC,Urine 2 /hpf (0-5); Specific Gravity,Urine 1.015 (1.001-1.035); Squamous Epithelial Cell,Urine 4 /hpf (0-4); Urobilinogen,Urine <2.0 mg/dL (<2.0); WBC,Urine 55 /hpf (0-5)
[2020-11-29] MEDS: methylPREDNISolone SOD SUCCI 40 MG/ML 1 ML VIAL IV SCH ×3 (02:38→17:10)
[2020-11-29 04:28] LABS: African American GFR (CKD) 28.1 (60.0-200.0); Albumin 4.3 g/dL (3.80-4.90); Albumin/Globulin Ratio 2.05 (1.60-3.17); Anion Gap 11.8 mmol/L (4.00-12.00); BUN/Creat Ratio 16.67 Ratio (12.00-20.00); Calcium 9.3 mg/dL (8.7-10.3); Carbon Dioxide 25.2 mmol/L (21.6-31.8); Globulin 2.1 g/dL (1.6-3.3); Non-African American GFR(CKD) 24.3 (60.0-200.0); Potassium 3.5 mmol/L (3.5-5.5); Total Bilirubin 0.8 mg/dL (0.2-1.2); Total Protein 6.4 g/dL (6.2-8.2)
[2020-11-29 06:56] LABS: Glucose,Whole Blood 346 mg/dL (75-99)
[2020-11-29] MEDS: CYCLOBENZAPRINE 10 MG TAB PO SCH ×2 (07:10→20:27)
[2020-11-29] MEDS: MONTELUKAST 10 MG TAB PO SCH (07:10)
[2020-11-29] MEDS: GLIMEPIRIDE 1 MG TAB PO SCH (07:10)
[2020-11-29] MEDS: GABAPENTIN 100 MG CAP PO SCH (07:10)
[2020-11-29] MEDS: ASPIRIN 81 MG PO SCH (07:10)
[2020-11-29] MEDS: LOSARTAN 50 MG TAB PO SCH (07:10)
[2020-11-29] MEDS: hydroCHLOROthiazide 12.5 MG CAP PO SCH (07:10)
[2020-11-29] MEDS: SODIUM CHLORIDE 0.9% 1,000 ML IV SCH ×2 (09:04→17:12)
--- NOTE | 2020-11-29 11:17 | HP ---
HISTORY AND PHYSICAL HISTORY: A 64-year-old white female with altered mental status in and out of severe confusion where she does not know where she is at, failing two antibiotics for UTI with a lot of burning back pain, dysuria, frequency, urgency, urinary hesitancy, was admitted for possible dehydration, urosepsis. She has also had severe lumbar radiculopathy. She is failing physical therapy, Dr. Bowers is saying possibly back surgery in the future. We are waiting to start on Rocephin, rehydrating, with worsening acute tubular necrosis and acute renal insufficiency and fluid rehydration. MEDICATIONS: Home medicines Xanax 0.25 b.i.d. p.r.n., aspirin 81 mg daily, Rocephin 1 g every 24 hours, Flexeril 10 b.i.d., Neurontin 100 t.i.d., Amaryl 1 mg a.c. breakfast, HydroDIURIL 12.5 mg daily, [place] 5/325 every 8 hours p.r.n., Claritin 10 mg daily, Cozaar 50 daily, Solu-Medrol 40 IV q.8, Singulair 10 mg daily. PHYSICAL EXAM: She appears weak and disheveled. SKIN: Dry skin turgor dry. Dry mucous membranes. Poor skin turgor. CARDIOVASCULAR: S1, S2. LUNGS: Mild wheeze x4. HEMATOLOGY: Negative Homans. PSYCH: Flat mood and affect. MUSCULOSKELETAL: She has limited motion of her left leg. Positive straight leg raising test to 30 degrees right leg, 45-50 degree straight leg raise test with palpation lumbar spinal muscles. ENDOCRINE: BMI is over 40. ASSESSMENT: 1. Suspect severe dehydration. 2. Acute tubular necrosis. 3. UTI with sepsis. 4. Retractable lumbar sciatica. PLAN: Await neurology to see her for further confusion secondary to possible dehydration UTI, delirium versus possible TIA. We will see how she does overnight. Prognosis guarded. Neurology consult. Urine culture pending. Start Rocephin for antibiotics. MMODL / IJN: [id number] /
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
[2020-11-29 11:57] LABS: Glucose,Whole Blood 392 mg/dL (75-99)
--- NOTE | 2020-11-29 12:08 | US ---
EXAMINATION TYPE: US renals and bladder DATE OF EXAM: 11/29/2020 COMPARISON: CT 2019. MRI lumbar spine November 20, 2020. CT lumbar spine November 09, 2020 CLINICAL HISTORY: crf. Exam done portable. EXAM MEASUREMENTS: Right Kidney: 10.7 x 5.4 x 4.7 cm Left Kidney: 10.2 x 5.1 x 4.1 cm Right Kidney: No hydronephrosis or masses seen Left Kidney: No hydronephrosis or masses seen Bladder: wnl Bilateral Jets seen: no Suboptimal study due to body habitus. Kidneys symmetric and normal in size. No gross hydronephrosis. Known 9 mm nonobstructing calculus lower pole right kidney on recent CT Not clearly seen on ultrasound images saved. IMPRESSION: As above. Suboptimal study. No hydronephrosis noted bilaterally.
[2020-11-29] MEDS: INSULIN ASPART (NovoLOG) 100 UNIT/ML VIAL SQ SCH ×3 (12:53→20:22)
[2020-11-29 16:37] LABS: Glucose,Whole Blood 387 mg/dL (75-99)
[2020-11-29] MEDS ORDERED: INSULIN ASPART (NovoLOG) 100 UNIT/ML VIAL SQ SCH (17:30)
[2020-11-29 20:13] LABS: Glucose,Whole Blood 402 mg/dL (75-99)
[2020-11-29] MEDS ORDERED: INSULIN ASPART (NovoLOG) 100 UNIT/ML VIAL SQ ONE (20:21)
[2020-11-29] MEDS: GABAPENTIN 300 MG CAP PO SCH (20:28)
[2020-11-29] MEDS: HYDROmorphone 0.5 MG/0.5 ML SYRINGE IVP PRN (20:36)
[2020-11-30] MEDS: methylPREDNISolone SOD SUCCI 40 MG/ML 1 ML VIAL IV SCH ×3 (01:17→16:44)
[2020-11-30 06:49] LABS: Glucose,Whole Blood 256 mg/dL (75-99)
[2020-11-30] MEDS: MONTELUKAST 10 MG TAB PO SCH (07:01)
[2020-11-30] MEDS: GABAPENTIN 300 MG CAP PO SCH (07:01)
[2020-11-30] MEDS: CYCLOBENZAPRINE 10 MG TAB PO SCH ×2 (07:01→20:39)
[2020-11-30] MEDS: LOSARTAN 50 MG TAB PO SCH (07:01)
[2020-11-30] MEDS: ASPIRIN 81 MG PO SCH (07:01)
[2020-11-30] MEDS: GLIMEPIRIDE 1 MG TAB PO SCH (07:02)
[2020-11-30] MEDS: hydroCHLOROthiazide 12.5 MG CAP PO SCH (07:02)
[2020-11-30] MEDS: INSULIN ASPART (NovoLOG) 100 UNIT/ML VIAL SQ SCH ×4 (07:02→20:30)
[2020-11-30] MEDS: HYDROcodone/APAP 5-325MG 1 EACH TAB PO PRN (07:04)
[2020-11-30 11:38] LABS: Glucose,Whole Blood 253 mg/dL (75-99)
[2020-11-30] MEDS: SODIUM CHLORIDE 0.9% 1,000 ML IV SCH (12:12)
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
[2020-11-30] MEDS ORDERED: DEXAMETHASONE SOD PHOSPHATE 4 MG/ML 1 ML VIAL IV PRN (15:10)
[2020-11-30 16:33] LABS: Glucose,Whole Blood 334 mg/dL (75-99)
[2020-11-30 20:26] LABS: Glucose,Whole Blood 403 mg/dL (75-99)
[2020-11-30] MEDS ORDERED: INSULIN ASPART (NovoLOG) 100 UNIT/ML VIAL SQ ONE (20:28)
--- NOTE | 2020-11-30 21:18 | XR ---
EXAMINATION TYPE: XR chest 1V DATE OF EXAM: 11/30/2020 COMPARISON: 11/19/2020. HISTORY: Difficulty breathing. TECHNIQUE: Single frontal view of the chest is obtained. FINDINGS: There is new small right basilar platelike opacity. No pleural effusion, or pneumothorax s een. The cardiac silhouette size is within normal limits. The osseous structures are intact. IMPRESSION: Right basilar atelectasis versus developing infiltrate.
--- NOTE | 2020-12-01 00:24 | CT ---
EXAMINATION TYPE: CT chest wo con DATE OF EXAM: 11/30/2020 COMPARISON: 09/07/2018 HISTORY: sob CT DLP: 424.20 mGycm Automated exposure control for dose reduction was used. Images obtained from the thoracic inlet to the diaphragm without contrast. There is some mild atelectasis at the lung bases and more on the right side. There is no pleural effu farheen. There is no pericardial effusion. Heart size is normal. There is some coronary artery calcifica tion. There are no hilar masses. There is no mediastinal adenopathy. There is no pneumothorax. There is no evidence of a pulmonary mass. There is some spurring in the thoracic spine. There is no compression fracture. Upper abdominal soft tissues are intact. There are clips from cholecystectomy. IMPRESSION: Mild atelectasis at the lung bases. No suspicious pulmonary mass. No pneumothorax.
[2020-12-01] MEDS: SODIUM CHLORIDE 0.9% 1,000 ML IV SCH ×2 (01:05→12:19)
[2020-12-01] MEDS: GABAPENTIN 300 MG CAP PO SCH ×3 (01:05→22:59)
[2020-12-01] MEDS: HYDROcodone/APAP 5-325MG 1 EACH TAB PO PRN (05:13)
[2020-12-01 06:49] LABS: Glucose,Whole Blood 161 mg/dL (75-99)
[2020-12-01] MEDS: IPRATROPIUM-ALBUTEROL 3 ML NEB INHALATION PRN ×3 (07:26→15:12)
[2020-12-01] MEDS: hydroCHLOROthiazide 12.5 MG CAP PO SCH (07:47)
[2020-12-01] MEDS: INSULIN ASPART (NovoLOG) 100 UNIT/ML VIAL SQ SCH ×4 (07:47→20:46)
[2020-12-01] MEDS: GLIMEPIRIDE 1 MG TAB PO SCH (07:47)
[2020-12-01] MEDS: ASPIRIN 81 MG PO SCH ×2 (07:47→20:46)
[2020-12-01] MEDS: LOSARTAN 50 MG TAB PO SCH (07:48)
[2020-12-01] MEDS: MONTELUKAST 10 MG TAB PO SCH (07:48)
[2020-12-01] MEDS: CYCLOBENZAPRINE 10 MG TAB PO SCH ×2 (07:48→20:46)
--- NOTE | 2020-12-01 08:08 | P.PN ---
Subjective Progress Note Date: 12/01/20 Patient seen and examined she is having a breathing treatment this morning. She states is difficult to breathe her longer having issues area complains of pain in her left lower extremity still she has not been out of bed. She denies any bowel or bladder issues denies any perineal numbness or tingling at this time. States is painful to move her left leg. She is no pain with passive motion which she does have positive tension signs. Objective - Vital Signs Vital signs: Vital Signs Temp 97.8 F 12/01/20 07:06 Pulse 102 H 12/01/20 07:40 Resp 14 12/01/20 07:06 BP 152/126 12/01/20 07:06 Pulse Ox 98 12/01/20 07:30 Intake & Output 11/30/20 12/01/20 12/01/20 18:59 06:59 18:59 Intake Total 1000 Balance 1000 Intake: Intake, IV Titration 800 Amount Sodium Chloride 0.9% 1, 750 000 ml @ 75 mls/hr IV . [id number] AMPARO Rx#:[id number] cefTRIAXone 1 gm In 50 Sodium Chloride 0.9% 50 ml @ 100 mls/hr IVPB Q24H AMPARO Rx#:[id number] Oral 200 Other: Voiding Method Bedside Commode # Voids 4 3 - Exam Patient is alert and oriented 3 appears well-nourished well-hydrated is in no acute distress. They does not appear septic. On exam the patient has no tenderness to palpation of her thoracic or lumbar spine. There is no edema or ballottement sign. Lower extremities with 5 out of 5 strength in all major muscle groups. Left lower extremity does have strength and she is able to move it however does increase her pain. She has 4+ out of 5 strength in hip flexion secondary to this pain. Knee flexion extension is still maintained as well as dorsiflexion plantar flexion. Upper extremities show 5/5 strength in all major muscle groups. There is FROM that is painless of the b/l UE and LE in all major joints. They are intact to light touch sensation in L2 to S1 nerve distribution. DTR 2/4 all Patient has palpable dorsalis pedis was posterior tibial pulses. Compartments are soft and compressible. Patient shows a negative Homans, Mathur's, negative Babinski's negative clonus bilaterally. negative straight leg raise bilaterally. No tensioning signs. Cranial nerves II through XII are grossly intact. Overall alignment is well-maintained in the sagittal coronal planes. She does not positive straight leg raise on the left with pain in tensioning. - Labs CBC & Chem 7: 11/28/20 17:50 11/28/20 17:50 Labs: Abnormal Lab Results - Last 24 Hours (Table) 11/30/20 11/30/20 11/30/20 Range/Units 11:36 16:31 20:16 D-Dimer (<0.60) mg/L FEU POC Glucose (mg/dL) 253 H 334 H 403 H (75-99) mg/dL 11/30/20 12/01/20 Range/Units 21:31 06:47 D-Dimer 2.88 H (<0.60) mg/L FEU POC Glucose (mg/dL) 161 H (75-99) mg/dL Microbiology - Last 24 Hours (Table) 11/28/20 21:47 Urine Culture - Final Urine,Voided Assessment and Plan Assessment: 64-year-old female low back pain UTI with sepsis shortness of breath and respiratory failure Left lower extremity radiculopathy L3-L4 stenosis foraminal and centrally secondary to disc bulge L4-L5 left foraminal stenosis Plan: -Appreciate applications development consultant and team management. -Activity: Ambulate QID, OOB all meals, up and about, limit lifting bending twisting to less than 5 lbs. Use walker or cane if needed for stability. -Daily PT/OT, increase ambulation strength and balance. -Pain control: Will increase gabapentin -Meds: [reviewed] -GI ppx: senna, Miralax -DC garcia when up and about, bedside commode if needed -DVT PPX: Teds and SCDs -Hygiene: Shower daily. -We will consult anesthesia services for MARY ELLEN L3-L4 -Encourage IS 10x/hr -Continue with supportive care and symptomatically treatment. Patient is a poor surgical candidate at this time due to her UTI sepsis and respiratory failure -Dispo: [Pending]
--- NOTE | 2020-12-01 12:05 | PN ---
PROGRESS NOTE DATE OF SERVICE: 11/30/2020. A 64-year-old white female came with UTI with sepsis, dehydration, lumbar disc disease with inability to ambulate and some delirium. She had a CT of the chest for elevated D-dimer, was negative for any pulmonary mass. Treated with IV antibiotics. She is feeling better as the days go on, rehydrated and treating for infection. Await for possible epidural shot prior to discharge. Cardiovascular S1, S2. Lungs clear. GI soft. Hematology negative Homans. ASSESSMENT: 1. History retractable back pain. 2. UTI. 3. Lumbar radiculopathy. 4. Elevated D-dimer. 5. COPD exacerbation. 6. Elevated blood sugars. She is up in bed. She is painful to move her left leg. She is seen by Dr. Alvarez who hopefully will do an epidural shot. Blood pressures been well elevated. Pulse 102, blood pressure 150s/120s, temp 97.8, O2 98, BUN 35, creatinine 2.1. Possible Anesthesia Services epidural shot prior to discharge. Continue with diabetic medication but continue current treatments. Follow up after epidural shot. MMODL / IJN: [id number] /
[2020-12-01 12:06] LABS: Glucose,Whole Blood 212 mg/dL (75-99)
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
[2020-12-01 16:57] LABS: Glucose,Whole Blood 229 mg/dL (75-99)
--- NOTE | 2020-12-01 17:24 | PN ---
PROGRESS NOTE 64-year-old white female, still complaining of severe pain discussed UTI is mostly improving. She is supposed to get an epidural tomorrow and some physical therapy to see if she can walk. Otherwise, she will have to go to rehab center. Her sugars have been high due to steroids. We cut down on her steroids. She is on Accu-Chek protocol, started on 20 Lantus. Cardiovascular: S1-S2. Lungs clear. GI soft. Musculoskeletal: Tenderness to palpation lumbar spine. Straight leg raise test positive 45 degrees on the left. ASSESSMENT: 1. Lumbar radiculopathy. 2. Uncontrolled diabetes mellitus. 3. Hypertension. 4. Chronic obstructive pulmonary disease. Prognosis guarded. Epidural shot in the morning and the PT/OT. Control diabetes. Possible discharge home. Treat her asthma and COPD. Please see further orders. MMODL / IJN: [id number] /
[2020-12-01 20:25] LABS: Glucose,Whole Blood 309 mg/dL (75-99)
[2020-12-02] MEDS: HYDROcodone/APAP 5-325MG 1 EACH TAB PO PRN (01:07)
[2020-12-02] MEDS: SODIUM CHLORIDE 0.9% 1,000 ML IV SCH ×2 (04:06→16:08)
[2020-12-02 07:23] LABS: Glucose,Whole Blood 84 mg/dL (75-99)
[2020-12-02] MEDS: IPRATROPIUM-ALBUTEROL 3 ML NEB INHALATION PRN ×3 (07:40→19:49)
[2020-12-02] MEDS: LOSARTAN 50 MG TAB PO SCH (08:43)
[2020-12-02] MEDS: hydroCHLOROthiazide 12.5 MG CAP PO SCH (08:43)
[2020-12-02] MEDS: INSULIN DETEMIR (LEVEMIR) 100 UNIT/ML SYR SQ SCH (08:47)
[2020-12-02] MEDS: INSULIN ASPART (NovoLOG) 100 UNIT/ML VIAL SQ SCH ×4 (08:49→21:28)
[2020-12-02] MEDS: GLIMEPIRIDE 1 MG TAB PO SCH (08:49)
[2020-12-02] MEDS: MONTELUKAST 10 MG TAB PO SCH (08:51)
[2020-12-02] MEDS: GABAPENTIN 300 MG CAP PO SCH ×2 (08:51→21:28)
[2020-12-02] MEDS: CYCLOBENZAPRINE 10 MG TAB PO SCH ×2 (08:51→21:28)
[2020-12-02] MEDS ORDERED: LACTATED RINGERS 1,000 ML IV ONE (10:50)
[2020-12-02] MEDS ORDERED: TRIAMCINOLONE ACETONIDE 40 MG/ML 1 ML VIAL ONE (11:19)
[2020-12-02] MEDS ORDERED: fentaNYL (PF) 50 MCG/ML 2 ML AMP ONE (11:19)
--- NOTE | 2020-12-02 11:37 | P.PCN ---
Date of Procedure: 12/02/20 Surgeon: Bart Murcia Pathology: none sent Condition: stable Disposition: PACU Description of Procedure: 1-Lumbar radiculopathy 2- Lumber Degenerative Disc Diseases. POSTOPERATIVE DIAGNOSIS: 1-Lumbar radiculopathy 2-Lumbar Degenerative Disc Diseases 3-myofascial pain PROCEDURE 1. Lumbar epidural steroid injection under fluoroscopic guidance at the L4-5 level in the left paramedian approach. 2-trigger point injection in the lumbar paravertebral musculature bilaterally ANESTHESIA: Local with 1% lidocaine; and IV moderate conscious sedation with fentanyl EBL: Minimal PROCEDURE INDICATION: The patient with low back pain and radiculitis symptoms unresponsive to conservative treatment. Fluoroscopy was used to optimize visualization of the needle placement and to maximize safety. PROCEDURE DESCRIPTION / TECHNIQUE: The patient was seen and identified in the preoperative area. Risks, benefits, complications including but not limited to infections ,bleeding ,allergic reaction to the medications ,nerve damage and not complete pain relief , and alternatives were discussed with the patient. The patient agreed to proceed with the procedure and signed the consent. IV was started, and vital signs were stable. No contrast dye was used today due to the patient is ALLERGIC to it with hives. Patient was taken to the OR and time out was completed. The patient was placed in the prone position on procedure table and a pillow was placed under the abdomen to reduce lumbar lordosis. The lumbosacral area was prepped and draped in the usual sterile fashion with ChloraPrep.Patient was closely monitored during the procedure. Conscious sedation was used during the procedure to decrease patients anxiety. Vital signs were monitered during the entire procedure. Using anterior-posterior fluoroscopy, the L4-5 interlaminar space was identified and the skin over this site was marked and then infiltrated with 1% lidocaine subcutaneously. Subsequently, a 20-gauge Tuohy epidural needle was inserted and advanced toward the epidural space using the Loss of resistance to air technique and guided by AP and lateral fluoroscopy. The correct needle position in the epidural space was verified with the injection of 1 mL of the water soluble contrast dye Omnipaque 180 contrast and observing an excellent epidurogram with the epidural spread of the dye, after negative aspiration for blood and CSF and in the absence of paresthesias. Again after negative aspiration, a 4 ml mixture containing 40 mg of Kenalog and 3 ml of preservative free Normal Saline, and 2 ml of preservative free ropivacaine 0.5% solution was injected and a washout of epidurogram was seen. Needle was withdrawn intact, skin was cleansed, and bandages were applied. patient tolerated procedure well and was transferred to PACU in stable condition.A copy of the needle placement picture was saved to the fluoroscopy machine. Trigger point injection: Skin was prepped with alcohol swabs and then 25-gauge 1-1/2 inch needle was used to go through the skin and into the paravertebral musculature on both sides of the spine and injected 1 mL of ropivacaine 0.5% at 1points on each side of the spine with total of 2 mils injected. COMPLICATIONS: None DISPOSITION / PLANS: The patient was placed in a supine position and transferred to the recovery area in a stable condition for observation. There was no evidence of lower extremity motor or sensory deficit after the procedure. Patient was discharged from the recovery room after meeting discharge criteria. Home discharge instructions were given to the patient by the staff. The patient was reexamined prior to discharge. The patient will schedule a follow up in the clinic in 2-4 weeks.
--- NOTE | 2020-12-02 11:45 | FL ---
EXAMINATION TYPE: FL guided pain mgmt statistic DATE OF EXAM: 12/02/2020 HISTORY: Pain 2 images to PACS 5sec fluoro time
[2020-12-02 12:04] LABS: Glucose,Whole Blood 74 mg/dL (75-99)
--- NOTE | 2020-12-02 15:53 | P.PN ---
Subjective Progress Note Date: 12/02/20 We are covering for Dr. Lisa This is a 64-year-old female who was recently admitted with acute urinary tract infection along with lumbar radiculopathy and is being closely monitored. She has been maintained on IV ceftriaxone with negative cultures and will discontinue IV antibiotics. Discussed with pharmacy. Patient also being evaluated by orthopedics along with pain management and is scheduled to receive an epidural injection today with Dr. Shah. Patient continues to be short of breath and lethargic and does have history of COPD with acute exacerbation. She will continue with breathing inhalational treatments and is being started on BiPAP per respiratory. Patient denies any chest pains or palpitations. No reports of nausea or vomiting and patient tolerating diet. Patient was on high- dose steroids and recommend to continue monitoring Accu-Cheks before meals and at bedtime and as needed as blood sugars were elevated. Blood sugars have been on the lower side today as patient was nothing by mouth and long-acting and sliding scale were held. Review of systems: Constitutional: No reports of fatigue, fever, or chills Cardiovascular: No reports of chest pain or palpitations Respiratory: reports of shortness of breath with cough GI: No reports of nausea, vomiting, or diarrhea : No reports of dysuria or retention Neurovascular: reports generalized weakness All medications have been reviewed Active Medications Hydrocodone Bitart/Acetaminophen (Hydrocodone/Apap 5-325mg 1 Each Tab) 1 each PO Q8H PRN PRN Reason: Pain Last Admin: 12/02/20 01:07 Dose: 1 each Documented by: Albuterol/Ipratropium (Ipratropium-Albuterol 3 Ml Neb) 3 ml INHALATION RT-QID PRN PRN Reason: Shortness Of Breath Or Wheezing Last Admin: 12/02/20 07:40 Dose: 3 ml Documented by: Alprazolam (Alprazolam 0.25 Mg Tab) 0.25 mg PO BID PRN PRN Reason: Anxiety Aspirin (Aspirin 81 Mg) 81 mg PO [facility] Last Admin: 12/01/20 20:46 Dose: 81 mg Documented by: Cyclobenzaprine HCl (Cyclobenzaprine 10 Mg Tab) 10 mg PO BID [facility] Last Admin: 12/02/20 08:51 Dose: Not Given Documented by: Dexamethasone Sodium Phosphate (Dexamethasone Sod Phosphate 4 Mg/Ml 1 Ml Vial) 4 mg IV Q6HR PRN PRN Reason: Nausea And Vomiting Gabapentin (Gabapentin 300 Mg Cap) 300 mg PO BID [facility] Last Admin: 12/02/20 08:51 Dose: Not Given Documented by: Glimepiride (Glimepiride 1 Mg Tab) 1 mg PO [id number] [facility] Last Admin: 12/02/20 08:49 Dose: Not Given Documented by: Hydrochlorothiazide (Hydrochlorothiazide 12.5 Mg Cap) 12.5 mg PO DAILY [facility] Last Admin: 12/02/20 08:43 Dose: 12.5 mg Documented by: Hydromorphone HCl (Hydromorphone 0.5 Mg/0.5 Ml Syringe) 0.5 mg IVP Q4HR PRN PRN Reason: Pain Last Admin: 11/29/20 20:36 Dose: 0.5 mg Documented by: Sodium Chloride (Saline 0.9%) 1,000 mls @ 75 mls/hr IV .[id number] [facility] Last Admin: 12/02/20 04:06 Dose: Not Given Documented by: Ceftriaxone Sodium 1 gm/ (Sodium Chloride) 50 mls @ 100 mls/hr IVPB Q24H [facility] Last Admin: 12/01/20 23:58 Dose: 100 mls/hr Documented by: Insulin Aspart (Insulin Aspart (Novolog) 100 Unit/Ml Vial) 0 unit SQ ACHS [facility]; Protocol Last Admin: 12/02/20 12:48 Dose: Not Given Documented by: Insulin Detemir (Insulin Detemir (Levemir) 100 Unit/Ml Syr) 20 unit SQ DAILY@0700 [facility] Last Admin: 12/02/20 08:47 Dose: Not Given Documented by: Loratadine (Loratadine 10 Mg Tab) 10 mg PO DAILY PRN PRN Reason: Allergy Symptoms Losartan Potassium (Losartan 50 Mg Tab) 50 mg PO DAILY [facility] Last Admin: 12/02/20 08:43 Dose: 50 mg Documented by: Montelukast Sodium (Montelukast 10 Mg Tab) 10 mg PO DAILY [facility] Last Admin: 12/02/20 08:51 Dose: Not Given Documented by: Objective - Vital Signs Vital signs: Vital Signs Temp 97.7 F 12/02/20 10:44 Pulse 92 12/02/20 10:44 Resp 18 12/02/20 10:44 BP 143/71 12/02/20 10:44 Pulse Ox 96 12/02/20 10:44 Intake & Output 12/01/20 12/02/20 12/02/20 18:59 06:59 18:59 Intake Total 50 50 Balance 50 50 Intake: IV 50 Intake, IV Titration 50 Amount cefTRIAXone 1 gm In 50 Sodium Chloride 0.9% 50 ml @ 100 mls/hr IVPB Q24H [facility] Rx#:[id number] Other: Voiding Method Bedside Commode # Voids 3 1 - Exam Gen: This is a 64-year-old female lying in bed lethargic although arousable. Well-developed, well-nourished, obese. Temp is 97.7F, pulse is 92, respirations are 18, blood pressure is 143/71, oxygen saturation is 96% on room air. HEENT: Head is atraumatic, normocephalic. Pupils equal, round. Sclerae is anicteric. NECK: Supple. No JVD. No lymphadenopathy. No thyromegaly. LUNGS: Diminished breath sounds bilaterally with some scattered rhonchi noted No intercostal retractions. HEART: S1, S2 are muffled ABDOMEN: Soft. Bowel sounds are present. No masses. No tenderness. EXTREMITIES: No pedal edema. No calf tenderness. NEUROLOGICAL: Patient is lethargic although arousable and oriented x3. Cranial nerves 2 through 12 are grossly intact. - Labs CBC & Chem 7: 11/28/20 17:50 11/28/20 17:50 Labs: Abnormal Lab Results - Last 24 Hours (Table) 12/01/20 12/01/20 12/01/20 Range/Units 12:05 16:56 20:23 POC Glucose (mg/dL) 212 H 229 H 309 H (75-99) mg/dL Assessment and Plan Assessment: Lumbar radiculopathy status post epidural injections with pain management High-dose steroids Uncontrolled diabetes mellitus Hypertension Chronic obstructive pulmonary disease History of DVT Gastroesophageal reflux disease History of osteoarthritis History of sleep apnea requiring CPAP outpatient Recommendations and discussion: Recommend to continue with current medications and current management. Discussed with Pharmacy as patient has received adequate dosing of IV antibiotic therapy and urine cultures reveal no growth and will discontinue IV ceftriaxone. Patient received epidural injections with pain management today and quite lethargic status post procedure although arousable. Respiratory starting BiPAP as she does have a history of COPD along with sleep apnea and will continue to monitor closely. PT/OT to reevaluate the patient tomorrow to determine if patient will require rehab for continued PT/OT therapy or home with home care. Case management and social work following. Patient is afebrile. Recommend continue with breathing inhalational treatments and also recommend to continue to monitor blood sugars before meals and at bedtime and as needed as blood sugars have been on the lower side today possibly due to patient being nothing by mouth for epidural injections this morning. Encourage oral intake and will add incentive spirometer as well. Prognosis is guarded.
--- NOTE | 2020-12-02 16:06 | P.PN ---
Subjective Progress Note Date: 12/02/20 Principal diagnosis: Left lower extremity radiculopathy Patient was seen at bedside this afternoon. Patient says she is feeling a little better as she had recently been given injection from pain management in her back. She says this did help with her pain. Patient denies any chest pain, fever, shortness of breath, nausea, vomiting, change in vision. Patient denies any saddle anesthesia. Patient denies loss of bowel/bladder control. Objective - Vital Signs Vital signs: Vital Signs Temp 98.0 F 12/02/20 14:00 Pulse 100 12/02/20 15:50 Resp 17 12/02/20 14:00 BP 146/74 12/02/20 14:00 Pulse Ox 90 L 12/02/20 14:00 Intake & Output 12/01/20 12/02/20 12/02/20 18:59 06:59 18:59 Intake Total 50 50 Balance 50 50 Intake: IV 50 Intake, IV Titration 50 Amount cefTRIAXone 1 gm In 50 Sodium Chloride 0.9% 50 ml @ 100 mls/hr IVPB Q24H [facility] Rx#:[id number] Other: Voiding Method Bedside Commode # Voids 3 1 - Exam Inspection: Scarring over the right knee evident of previous right total knee arthroplasty. Rest exam negative Palpation: Significant tenderness to palpation along the midline lumbar spine. Mild tenderness to palpation of lower thoracic spine. Rest of exam negative Sensation: Sensation intact throughout bilateral upper and lower extremities. Sensation equal, symmetric throughout exam. Range of motion: Full range of motion bilateral upper extremities. Full range of motion of right leg. Limited flexion of left hip due to significant pain while elevating left leg Full range of motion in flexion and extension of left knee Motor: Bilateral upper extremities 5/5 in ui engineer strength elbow flexion extension and resisted external and internal rotation of shoulder. Right leg 5 out of 5 in resisted knee flexion, extension and hip flexion extension. Left leg: Plantar flexion 4/5; knee flexion/extension 4/5; hip flexion/extension 4/5 Neurovascular status/tensioning signs: Negative Homans bilaterally. Negative clonus upon dorsiflexing feet. Negative Seth's bilaterally. Cap refill below 3 seconds bilaterally and digits of foot and hand. Dorsalis pedis pulses present, intact, 2+. Radial pulse present, intact, 2+ bilaterally. - Labs CBC & Chem 7: 11/28/20 17:50 11/28/20 17:50 Labs: Abnormal Lab Results - Last 24 Hours (Table) 12/01/20 12/01/20 12/02/20 Range/Units 16:56 20:23 12:02 POC Glucose (mg/dL) 229 H 309 H 74 L (75-99) mg/dL Assessment and Plan Assessment: 1. Low back pain 2. Left lower extremity radiculopathy 3. Multiple medical comorbidities Plan: 1. Low back pain; left lower extremity radiculopathy - pain management has given lumbar MARY ELLEN at L4 to L5. Patient has gotten some relief from pain. At this time there is no urgent surgical intervention needed. We recommend patient to follow-up in the outpatient setting with us in about 2 weeks. At this time patient is orthopedically stable and stable for discharge from an orthopedic standpoint. 2. Appreciate medical management 3. Multiple medical comorbidities 4. Pain management - stable at this time. On Kingsley and gabapentin. 5. GI prophylaxis/DVT prophylaxis - aspirin 6. PT/OT - weightbearing as tolerated with walker for assistance. Up and out of bed during all meals Time with Patient: Less than 30
[2020-12-02 16:41] LABS: Glucose,Whole Blood 113 mg/dL (75-99)
[2020-12-02 20:34] LABS: Glucose,Whole Blood 256 mg/dL (75-99)
[2020-12-02] MEDS: ASPIRIN 81 MG PO SCH (21:28)
[2020-12-03] MEDS: SODIUM CHLORIDE 0.9% 1,000 ML IV SCH ×2 (04:19→19:46)
[2020-12-03 07:21] LABS: Glucose,Whole Blood 187 mg/dL (75-99)
[2020-12-03] MEDS: INSULIN ASPART (NovoLOG) 100 UNIT/ML VIAL SQ SCH ×4 (08:16→21:05)
[2020-12-03] MEDS: INSULIN DETEMIR (LEVEMIR) 100 UNIT/ML SYR SQ SCH (08:16)
[2020-12-03] MEDS: MONTELUKAST 10 MG TAB PO SCH (08:16)
[2020-12-03] MEDS: CYCLOBENZAPRINE 10 MG TAB PO SCH (08:16)
[2020-12-03] MEDS: hydroCHLOROthiazide 12.5 MG CAP PO SCH (08:16)
[2020-12-03] MEDS: LOSARTAN 50 MG TAB PO SCH (08:16)
[2020-12-03] MEDS: GABAPENTIN 300 MG CAP PO SCH ×2 (08:16→21:05)
[2020-12-03] MEDS: GLIMEPIRIDE 1 MG TAB PO SCH ×2 (08:19→21:06)
[2020-12-03 09:03] LABS: Basophils % (A) 0 %; Eosinophils # (A) 0.1 k/uL (0-0.7); Eosinophils % (A) 1 %; HCT 39.6 % (34.0-46.0); HGB 13.5 gm/dL (11.4-16.0); Lymphocytes # (A) 1.6 k/uL (1.0-4.8); Lymphocytes % (A) 16 %; MCH 31.1 pg (25.0-35.0); MCV 91.4 fL (80.0-100.0); Mean Platelet Volume 7.9; Monocytes # (A) 0.4 k/uL (0-1.0); Monocytes % (A) 4 %; Neutrophils # (A) 7.6 k/uL (1.3-7.7); Neutrophils % (A) 78 %; Platelet Count 210 k/uL (150-450); RBC 4.33 m/uL (3.80-5.40); WBC 9.7 k/uL (3.8-10.6)
[2020-12-03 09:12] LABS: African American GFR (CKD) 51 (>60 ml/min/1.73 sqM); Anion Gap 8 mmol/L; Blood Urea Nitrogen 37 mg/dL (7-17); Calcium 9.2 mg/dL (8.4-10.2); Carbon Dioxide 28 mmol/L (22-30); Chloride 105 mmol/L (98-107); Glucose 192 mg/dL (74-99); Magnesium 1.9 mg/dL (1.6-2.3); Non-African American GFR(CKD) 45 (>60 ml/min/1.73 sqM); Potassium 4.4 mmol/L (3.5-5.1); Sodium 141 mmol/L (137-145)
[2020-12-03 11:36] LABS: Glucose,Whole Blood 238 mg/dL (75-99)
[2020-12-03 12:00] LABS: Glucose,Whole Blood 234 mg/dL (75-99)
--- NOTE | 2020-12-03 12:31 | CT ---
EXAMINATION TYPE: CODE STROKE: CT brain wo contr DATE OF EXAM: 12/03/2020 COMPARISON: None INDICATION: Code stroke DLP: 1139.4 mGycm, Automated exposure control for dose reduction was used. CONTRAST: None CT of the brain is performed utilizing 3 mm thick sections through the posterior fossa and 3 mm thick sections through the remaining calvarium. Study is performed within 24 hours of arrival to the hosp ital. No abnormal hyperdensity is present to suggest an acute intracranial hemorrhage. No mass lesion is evident. No acute infarcts are evident. Ventricles and sulci are appropriate for the patient age. Paranasal sinuses and mastoid air cells within the [id number] are clear. IMPRESSIONS: 1. No acute intracranial process. If symptoms persist, MRI could be performed.
[2020-12-03 13:00] LABS: Basophils % (A) 0 %; Eosinophils # (A) 0.1 k/uL (0-0.7); Eosinophils % (A) 1 %; HCT 36.9 % (34.0-46.0); HGB 12.7 gm/dL (11.4-16.0); Lymphocytes # (A) 1.3 k/uL (1.0-4.8); Lymphocytes % (A) 16 %; MCH 31.6 pg (25.0-35.0); MCHC 34.3 g/dL (31.0-37.0); MCV 91.9 fL (80.0-100.0); Mean Platelet Volume 7.9; Monocytes # (A) 0.4 k/uL (0-1.0); Monocytes % (A) 5 %; Neutrophils # (A) 6.3 k/uL (1.3-7.7); Neutrophils % (A) 77 %; Platelet Count 180 k/uL (150-450); RBC 4.02 m/uL (3.80-5.40); RDW 14.2 % (11.5-15.5); WBC 8.2 k/uL (3.8-10.6)
[2020-12-03 13:07] LABS: INR 1.1 (<1.2); Partial Thromboplastin Time 22.5 sec (22.0-30.0); Prothrombin Time 11.5 sec (9.0-12.0)
[2020-12-03 13:20] LABS: ALT 23 U/L (4-34); AST 22 U/L (14-36); African American GFR (CKD) 49 (>60 ml/min/1.73 sqM); Albumin 3.6 g/dL (3.5-5.0); Albumin/Globulin Ratio 1.5; Alkaline Phosphatase 57 U/L (38-126); Anion Gap 7 mmol/L; Blood Urea Nitrogen 38 mg/dL (7-17); Calcium 9.1 mg/dL (8.4-10.2); Carbon Dioxide 30 mmol/L (22-30); Chloride 105 mmol/L (98-107); Globulin 2.4 g/dL; Glucose 212 mg/dL (74-99); Non-African American GFR(CKD) 42 (>60 ml/min/1.73 sqM); Potassium 3.9 mmol/L (3.5-5.1); Sodium 142 mmol/L (137-145); Total Bilirubin 0.5 mg/dL (0.2-1.3)
[2020-12-03 13:34] LABS: Creatine Kinase 44 U/L (30-135)
[2020-12-03 13:47] LABS: Creatine Kinase MB 2.1 ng/mL (0.0-2.4); Troponin I <0.012 ng/mL (0.000-0.034)
--- NOTE | 2020-12-03 15:14 | P.PN ---
Subjective Progress Note Date: 12/03/20 We are covering for Dr. Lisa This is a 64-year-old female who was recently admitted with acute urinary tract infection along with lumbar radiculopathy and is being closely monitored. She has been maintained on IV ceftriaxone with negative cultures and will discontinue IV antibiotics. Discussed with pharmacy. Patient also being evaluated by orthopedics along with pain management and is scheduled to receive an epidural injection today with Dr. Shah. Patient continues to be short of breath and lethargic and does have history of COPD with acute exacerbation. She will continue with breathing inhalational treatments and is being started on BiPAP per respiratory. Patient denies any chest pains or palpitations. No reports of nausea or vomiting and patient tolerating diet. Patient was on high- dose steroids and recommend to continue monitoring Accu-Cheks before meals and at bedtime and as needed as blood sugars were elevated. Blood sugars have been on the lower side today as patient was nothing by mouth and long-acting and sliding scale were held. 12/03/2020 Patient is seen this morning continues to be lethargic although arousable and follows asleep multiple times throughout conversation. Patient continues to have some lower back discomfort although states is slightly improved since the epidural injections yesterday. Patient using CPAP at night and will need outpatient follow-up with the [facility] to receive adequate sized facemask as she recently has just got new dentures and her old mask does not fit properly. Patient is on Flexeril, Xanax, Neurontin, [place], and Dilaudid as needed and will decrease these medications as she is continued to be extremely lethargic. Patient will follow-up with pain management outpatient. Upon attempting to discharge the patient nursing staff states the patient was having slight altered mental status with visual disturbances and claiming she did not know where she was or how to use her telephone. Code stroke was called. Neurology following and ordered a stat MRI is pending. CT of the brain is negative for any acute intracranial process with no mass lesion or acute infarcts evident. Review of systems: Constitutional: No reports of fatigue, fever, or chills Cardiovascular: No reports of chest pain or palpitations Respiratory: reports of shortness of breath with cough GI: No reports of nausea, vomiting, or diarrhea : No reports of dysuria or retention Neurovascular: reports generalized weakness, reported dizziness the nursing staff with visual disturbances All medications have been reviewed Objective - Vital Signs Vital signs: Vital Signs Temp 98.5 F 12/03/20 07:49 Pulse 102 H 12/03/20 08:00 Resp 18 12/03/20 08:00 BP 124/85 12/03/20 07:49 Pulse Ox 94 L 12/03/20 07:49 Intake & Output 12/02/20 12/03/20 12/03/20 18:59 06:59 18:59 Intake Total 50 480 Balance 50 480 Intake: IV 50 Oral 480 Other: Voiding Method Bedside Commode Bedside Commode Toilet # Voids 2 1 - Exam Gen: This is a 64-year-old female lying in the chair lethargic although arousable. Well-developed, well-nourished, obese HEENT: Head is atraumatic, normocephalic. Pupils equal, round. Sclerae is anicteric. NECK: Supple. No JVD. No lymphadenopathy. No thyromegaly. LUNGS: Diminished breath sounds bilaterally with some scattered rhonchi noted No intercostal retractions. HEART: S1, S2 are muffled ABDOMEN: Soft. Bowel sounds are present. No masses. No tenderness. EXTREMITIES: No pedal edema. No calf tenderness. NEUROLOGICAL: Patient is lethargic although arousable and oriented x3. Cranial nerves 2 through 12 are grossly intact. - Labs CBC & Chem 7: 12/03/20 12:28 12/03/20 12:28 Labs: Abnormal Lab Results - Last 24 Hours (Table) 12/02/20 12/02/20 12/03/20 Range/Units 16:39 20:33 07:20 BUN (7-17) mg/dL Creatinine (0.52-1.04) mg/dL Glucose (74-99) mg/dL POC Glucose (mg/dL) 113 H 256 H 187 H (75-99) mg/dL 12/03/20 12/03/20 12/03/20 Range/Units 08:40 11:35 11:58 BUN 37 H (7-17) mg/dL Creatinine 1.28 H (0.52-1.04) mg/dL Glucose 192 H (74-99) mg/dL POC Glucose (mg/dL) 238 H 234 H (75-99) mg/dL Assessment and Plan Assessment: Lumbar radiculopathy status post epidural injections with pain management Visual disturbances and acute altered mental status with dizziness with possible TIA High-dose steroids Uncontrolled diabetes mellitus Hypertension Chronic obstructive pulmonary disease History of DVT Gastroesophageal reflux disease History of osteoarthritis History of sleep apnea requiring CPAP outpatient Recommendations and discussion: Recommend to continue with current medications and current management. Patient received epidural injections with pain management yesterday and continues to be lethargic throughout most the day and during conversation falling asleep multiple times. Continue CPAP. PT/OT reevaluated the patient today with no difficulties and safe to return home with spouse. Patient had an episode of visual disturbance and altered mental status and code stroke was called and CT was negative and neurology evaluated the patient ordered MRI which is pending. Patient is afebrile. Recommend continue with breathing inhalational treatments and also recommend to continue to monitor blood sugars before meals and at bedtime and as needed. Limit narcotic use as patient continues to be extremely lethargic and falls asleep multiple times during conversation. Encourage oral intake and will add incentive spirometer as well. Prognosis is guarded. Possible discharge in 24 hours
[2020-12-03] MEDS ORDERED: CYCLOBENZAPRINE 5 MG TAB PO PRN (15:15)
--- NOTE | 2020-12-03 15:36 | MR ---
EXAMINATION TYPE: MR brain wo con DATE OF EXAM: 12/03/2020 COMPARISON: CT brain 12/03/2020 HISTORY: Blurry vision, left sided weakness. Rule out stroke. CONTRAST: Performed utilizing mL intravenous gadolinium contrast. TECHNIQUE: Multiplanar, multiecho imaging on a 3.0 Sofia magnet is performed through the brain. Stud y is performed within 24 hours of arrival to the hospital. The craniovertebral junction is normal. The pituitary is normal. Diffusion-weighted imaging is performed. No abnormal hyperintensity is present to suggest an acute i ntracranial infarct or acute ischemic change. There is some diffuse periventricular white matter hyperintensity on inversion recovery sequences. N o corresponding abnormality on diffusion-weighted imaging is evident. Findings nonspecific and can be related to some mild ischemic type change Ventricles and sulci are appropriate for the patient age. IMPRESSIONS: 1. No suspicious abnormality to account for patient symptoms. No acute infarcts identified. 2. Some mild diffuse white matter changes may be present bilaterally
--- NOTE | 2020-12-03 15:46 | P.PN ---
Subjective Progress Note Date: 12/03/20 Principal diagnosis: Left lower extremity radiculopathy Patient was seen at bedside this afternoon. Patient seems to be extremely lethargic throughout the encounter. However, patient says she is feeling a little better as she had recently been given injection from pain management in her back. She says this did help with her pain. Patient says she still is having pain and points to the left buttock region. She says she did get up with physical therapy and walk to the hallway earlier today and she says she's been up to chair. Patient denies any chest pain, fever, shortness of breath, nausea, vomiting, change in vision. Patient denies any saddle anesthesia. Patient den ies loss of bowel/bladder control. Objective - Vital Signs Vital signs: Vital Signs Temp 96.6 F L 12/03/20 14:00 Pulse 105 H 12/03/20 14:00 Resp 18 12/03/20 14:00 BP 121/74 12/03/20 14:00 Pulse Ox 92 L 12/03/20 14:00 Intake & Output 12/02/20 12/03/20 12/03/20 18:59 06:59 18:59 Intake Total 50 480 Balance 50 480 Intake: IV 50 Oral 480 Other: Voiding Method Bedside Commode Bedside Commode Toilet # Voids 2 1 - Exam Inspection: Scarring over the right knee evident of previous right total knee arthroplasty. Rest exam negative Palpation: Significant tenderness to palpation along the midline lumbar spine. Mild tenderness to palpation of lower thoracic spine. Rest of exam negative Sensation: Sensation intact throughout bilateral upper and lower extremities. Sensation equal, symmetric throughout exam. Range of motion: Full range of motion bilateral upper extremities. Full range of motion of right leg. Limited flexion of left hip due to significant pain while elevating left leg Full range of motion in flexion and extension of left knee Motor: Bilateral upper extremities 5/5 in steel estimator strength elbow flexion extension and resisted external and internal rotation of shoulder. Right leg 5 out of 5 in resisted knee flexion, extension and hip flexion extension. Left leg: Plantar flexion 4/5; knee flexion/extension 4/5; hip flexion/extension 4/5 Neurovascular status/tensioning signs: Negative Homans bilaterally. Negative clonus upon dorsiflexing feet. Negative Seth's bilaterally. Cap refill below 3 seconds bilaterally and digits of foot and hand. Dorsalis pedis pulses present, intact, 2+. Radial pulse present, intact, 2+ bilaterally. - Labs CBC & Chem 7: 12/03/20 12:28 12/03/20 12:28 Labs: Abnormal Lab Results - Last 24 Hours (Table) 12/02/20 12/02/20 12/03/20 Range/Units 16:39 20:33 07:20 BUN (7-17) mg/dL Creatinine (0.52-1.04) mg/dL Glucose (74-99) mg/dL POC Glucose (mg/dL) 113 H 256 H 187 H (75-99) mg/dL Total Protein (6.3-8.2) g/dL 12/03/20 12/03/20 12/03/20 Range/Units 08:40 11:35 11:58 BUN 37 H (7-17) mg/dL Creatinine 1.28 H (0.52-1.04) mg/dL Glucose 192 H (74-99) mg/dL POC Glucose (mg/dL) 238 H 234 H (75-99) mg/dL Total Protein (6.3-8.2) g/dL 12/03/20 Range/Units 12:28 BUN 38 H (7-17) mg/dL Creatinine 1.33 H (0.52-1.04) mg/dL Glucose 212 H (74-99) mg/dL POC Glucose (mg/dL) (75-99) mg/dL Total Protein 6.0 L (6.3-8.2) g/dL Assessment and Plan Assessment: 1. Low back pain 2. Left lower extremity radiculopathy 3. Multiple medical comorbidities Plan: 1. Low back pain; left lower extremity radiculopathy - pain management has given lumbar MARY ELLEN at L4 to L5. Patient has gotten some relief from pain. At this time there is no urgent surgical intervention needed. We recommend patient to follow-up in the outpatient setting with us in about 1 week. At this time patient is orthopedically stable and stable for discharge from an orthopedic standpoint. 2. Appreciate medical management 3. Multiple medical comorbidities 4. Pain management - stable at this time. On [place]. 5. GI prophylaxis/DVT prophylaxis - aspirin 6. PT/OT - weightbearing as tolerated with walker for assistance. Up and out of bed during all meals Time with Patient: Less than 30
[2020-12-03 16:53] LABS: Glucose,Whole Blood 107 mg/dL (75-99)
--- NOTE | 2020-12-03 17:27 | P.PN ---
Subjective Progress Note Date: 12/03/20 The patient was seen at bedside and per the patient nurse and she stated that the at 11:45 in the morning today the patient complained that she could not see out of both eyes having blurry vision and having difficulty calling her daughter. As a result stroke code was activated and it was possibly felt the NIH was 13 and per the patient's nurse she had generalized weakness but patient complained mostly of left leg. Per the patient's nurse her symptoms has been improving. No IV TPA and the stroke attending recommended MRI of the brain. Upon seeing the patient and she was sleeping and she was snoring heavily. She has sleep apnea and not using CPAP since does not fit and refusing to using it the hospital. During her hospital stay yesterday she received epidural for her lower back pain. She continues to have left leg pain and that's limited that because of the hip and lower back pain. MR the brain is reported as no suspicious abnormality to account for the patient's symptoms. No acute infarct identified. Some mild diffuse white matter changes may be present bilaterally. Objective - Vital Signs Vital signs: Vital Signs Temp 96.6 F L 12/03/20 14:00 Pulse 105 H 12/03/20 14:00 Resp 18 12/03/20 14:00 BP 121/74 12/03/20 14:00 Pulse Ox 92 L 12/03/20 14:00 Intake & Output 12/02/20 12/03/20 12/03/20 18:59 06:59 18:59 Intake Total 50 480 Balance 50 480 Intake: IV 50 Oral 480 Other: Voiding Method Bedside Commode Bedside Commode Toilet # Voids 2 1 - Exam GENERAL: The patient is lying in bed and is not in acute distress. She was severely snoring. NEUROLOGICAL: Higher mental function: The patient is drowsy but awakeable to voice, She is oriented to self, place and time. Patient is following simple commands. No aphasia and no neglect. Cranial nerves: The pupils are round, equal and reactive to light and acc ommodation. Visual rowe are full to confrontation throughout. Extraocular movement is intact no nystagmus is noted. Facial sensation is normal to touch throughout. The facial strength is normal throughout. Hearing is mildly bilaterally to hand rub. Mild dysarthria is noted. Motor: Gait is deferred because of her pain. The strength in the left lower extremity proximally is lift above gravity but is limited because of pain. Otherwise lifting all extremities above gravity without difficulty and drift. Normal tone and bulk. Cerebellum: Normal finger to nose bilaterally. Sensation: Sensation is tender to touch over anterior thigh region. Otherwise normal to touch throughout. Reflexes (right/left): 2+ throughout upper while 1+ in lowers. Plantars are mute bilaterally. - Labs CBC & Chem 7: 12/03/20 12:28 12/03/20 12:28 Labs: Abnormal Lab Results - Last 24 Hours (Table) 12/02/20 12/03/20 12/03/20 Range/Units 20:33 07:20 08:40 BUN 37 H (7-17) mg/dL Creatinine 1.28 H (0.52-1.04) mg/dL Glucose 192 H (74-99) mg/dL POC Glucose (mg/dL) 256 H 187 H (75-99) mg/dL Total Protein (6.3-8.2) g/dL 12/03/20 12/03/20 12/03/20 Range/Units 11:35 11:58 12:28 BUN 38 H (7-17) mg/dL Creatinine 1.33 H (0.52-1.04) mg/dL Glucose 212 H (74-99) mg/dL POC Glucose (mg/dL) 238 H 234 H (75-99) mg/dL Total Protein 6.0 L (6.3-8.2) g/dL 12/03/20 Range/Units 16:52 BUN (7-17) mg/dL Creatinine (0.52-1.04) mg/dL Glucose (74-99) mg/dL POC Glucose (mg/dL) 107 H (75-99) mg/dL Total Protein (6.3-8.2) g/dL Assessment and Plan Assessment: This is a 64-year-old woman who has been having left lower back pain rating down the anterior thigh all the way to the left large toe and the onset started after picking up her grandchild. She had multiple ED visit as result of her back pain. * Transient episode of blurry vision, confusion, slurring speech: Seems T ransient ischemic attack. Other possibility is encephalopathy, metabolic, medication use and component Seems severe obstructive sleep apnea and not using CPAP machine. * Left Lumbar radiculopathy (L4 and L5 region). presented to the ED multiple times for this (MRI Lumbar shows degenerative changes in the lumbar spine greatest at the L3-L4 level with encroachments on the cervical left L4 nerve) who received epidural injection yesterday. * Altered mental status due to metabolic encephalopathy (acute on chronic kidney insuffiency), septic encephalopathy (from recurrent UTI) and medication effect * Recurrent UTI * Diabetes mellitus * Acute on chronic Kidney insuffiency * Hypertension * History of DVT * Sleep apnea * Osteoarthritis of hips and knees Plan: Patient had MRI of the lumbar spine on 11/20/2020 and it's reported as multilevel degenerative changes in the lumbar spine greatest at the L3-L4 level with encroachments on the cervical left L4 nerve throughout. Findings correlate with the patient's symptoms. Prior Vitamin B12 is 702 in the TSH is 2.92 which is considered within normal limits. MR the brain is reported as no suspicious abnormality to account for the patient's symptoms. No acute infarct identified. Some mild diffuse white matter changes may be present bilaterally. * Patient is on aspirin 81 and this to be continued. Patient is a little ALLER GIC to statins therefore I'll not place the patient on any statins. * I ordered repeat TSH, vitamin B12 and folate level. I also ordered lipid panel. Ordered 2D echo. * Orthopedic team is on board. * Physical therapy and occupational therapy are consulted. * Recommend EMG with [facility] as outpatient. * On Gabapentin 300mg bid. Will consider tapering it since more sleepy. * Please avoid opiates, narcotics or twice a date of that would affect the patient's mentation. * Upon discharge the patient needs to follow-up with a neurologist as outpatient with 1-2 weeks (She stated she has an appointment Dr. Lugo to her knowledge). * Will defer the rest of medical management to the primary team. The plan is discussed with the patient's nurse. Matt Chavarria MD Neuro-Hospitalist Time with Patient: Less than 30
[2020-12-03] MEDS: IPRATROPIUM-ALBUTEROL 3 ML NEB INHALATION PRN (19:40)
[2020-12-03 20:27] LABS: Glucose,Whole Blood 179 mg/dL (75-99)
[2020-12-03] MEDS: ASPIRIN 81 MG PO SCH (21:05)
[2020-12-04 05:29] LABS: Chol/HDL Ratio 3.78; LDL Cholesterol,Calculated 99.4 mg/dL (0.0-131.0); VLDL Calculation 28.6 mg/dL (5.00-40.00)
[2020-12-04 06:47] LABS: African American GFR (CKD) 74 (>60 ml/min/1.73 sqM); Anion Gap 6 mmol/L; Blood Urea Nitrogen 38 mg/dL (7-17); Calcium 8.7 mg/dL (8.4-10.2); Carbon Dioxide 28 mmol/L (22-30); Chloride 103 mmol/L (98-107); Glucose 109 mg/dL (74-99); Non-African American GFR(CKD) 64 (>60 ml/min/1.73 sqM); Sodium 137 mmol/L (137-145)
[2020-12-04 06:49] LABS: Potassium 3.8 mmol/L (3.5-5.1)
[2020-12-04 07:07] LABS: Glucose,Whole Blood 104 mg/dL (75-99)
[2020-12-04] MEDS: SODIUM CHLORIDE 0.9% 1,000 ML IV SCH (07:09)
[2020-12-04] MEDS: INSULIN ASPART (NovoLOG) 100 UNIT/ML VIAL SQ SCH ×2 (07:10→12:35)
[2020-12-04] MEDS: MONTELUKAST 10 MG TAB PO SCH (07:21)
[2020-12-04] MEDS: LOSARTAN 50 MG TAB PO SCH (07:22)
[2020-12-04] MEDS: GABAPENTIN 300 MG CAP PO SCH (07:22)
[2020-12-04] MEDS: GLIMEPIRIDE 1 MG TAB PO SCH (07:22)
[2020-12-04] MEDS: INSULIN DETEMIR (LEVEMIR) 100 UNIT/ML SYR SQ SCH (07:23)
[2020-12-04 08:18] VITALS: BP 135/72; PULSE 95; RESP 18; TEMP 97.3
[2020-12-04 08:43] LABS: Folate, Serum 5.6 ng/mL
[2020-12-04 11:32] LABS: Glucose,Whole Blood 67 mg/dL (75-99)
[2020-12-04 12:08] LABS: Glucose,Whole Blood 89 mg/dL (75-99)
--- NOTE | 2020-12-04 12:11 | ECHOF ---
Referral Reason:stroke MEASUREMENTS -------- HEIGHT: 152.4 cm WEIGHT: 103.9 kg BP: 121/80 RVIDd: 2.8 cm (< 3.3) IVSd: 1.2 cm (0.6 - 1.1) LVIDd: 4.1 cm (3.9 - 5.3) LVPWd: 1.2 cm (0.6 - 1.1) IVSs: 1.7 cm LVIDs: 2.7 cm LVPWs: 1.8 cm LA Diam: 3.3 cm (2.7 - 3.8) Ao Diam: 3.2 cm (2.0 - 3.7) AV Cusp: 2.1 cm (1.5 - 2.6) MV EXCURSION: 13.362 mm (> 18.000) MV EF SLOPE: 61 mm/s (70 - 150) EPSS: 0.2 cm MV E Héctor: 0.55 m/s MV DecT: 229 ms MV A Héctor: 0.76 m/s MV E/A Ratio: 0.72 RAP: 5.00 mmHg RVSP: 24.64 mmHg FINDINGS -------- Sinus rhythm. This was a technically adequate study. The left ventricular size is normal. There is borderline concentric left ventricular hypertrophy. Overall left ventricular systolic function is normal with, an EF between 60 - 65 %. The right ventricle is normal in size. The left atrial size is normal. The right atrium is normal in size. The aortic valve is trileaflet, and appears structurally normal. No aortic stenosis or regurgitation. Mild mitral annular calcification present. Mild tricuspid regurgitation present. Right ventricular systolic pressure is normal at < 35 mmHg. The pulmonic valve was not well visualized. The aortic root size is normal. IVC Not well visulized. There is no pericardial effusion. CONCLUSIONS -------- 1. The left ventricular size is normal. 2. There is borderline concentric left ventricular hypertrophy. 3. Overall left ventricular systolic function is normal with, an EF between 60 - 65 %. 4. Mild mitral annular calcification present. 5. Mild tricuspid regurgitation present. 6. There is no pericardial effusion. BARREL CLEANER: Reina Reno [facility]
[2020-12-04 14:27] VITALS: BMI 44.7
--- NOTE | 2020-12-04 16:02 | P.DS ---
Providers Date of admission: 11/28/20 14:55 Expected date of discharge: 12/04/20 Attending physician: Tavo Lisa Consults: 11/28/20 17:38 Consult Physician Routine Consulting Provider: Aleena Moore Consult Reason/Comments: SCIATICA, LEFT SIDE WEAKNESS Do you want consulting provider notified?: Yes 11/29/20 11:39 Consult Physician Routine Consulting Provider: Vikram Alvarez Consult Reason/Comments: Lumbar radiculopathy. Known to you Do you want consulting provider notified?: Yes 11/30/20 20:26 Consult to Anesthesia Routine Consulting Provider: Anesthesia,Services Consult Reason/Comments: Lumbar epidural injection 12/01/20 08:08 Consult Physician Routine Consulting Provider: Pierce Shah Consult Reason/Comments: L3-4 MARY ELLEN Do you want consulting provider notified?: Yes Primary care physician: [facility] Course: Final diagnosis Lumbar radiculopathy status post epidural injections with pain management Visual disturbances and acute altered mental status with dizziness with possible TIA High-dose steroids Uncontrolled diabetes mellitus Hypertension Chronic obstructive pulmonary disease History of DVT Gastroesophageal reflux disease History of osteoarthritis History of sleep apnea requiring CPAP outpatient Discharge disposition Patient is being discharged in a stable condition with guarded prognosis to home. Patient will follow-up with Dr. Olivares in the outpatient setting upon discharge. Patient is to follow-up with orthopedics and pain management in the outpatient setting. Total time taken is greater than 35 minutes. Hospital course We are covering for Dr. Lisa This is a 64-year-old female who was recently admitted with acute urinary tract infection along with lumbar radiculopathy and is being closely monitored. She has been maintained on IV ceftriaxone with negative cultures and will discontinue IV antibiotics. Discussed with pharmacy. Patient also being evaluated by orthopedics along with pain management and is scheduled to receive an epidural injection today with Dr. Shah. Patient continues to be short of breath and lethargic and does have history of COPD with acute exacerbation. She will continue with breathing inhalational treatments and is being started on BiPAP per respiratory. Patient denies any chest pains or palpitations. No reports of nausea or vomiting and patient tolerating diet. Patient was on high- dose steroids and recommend to continue monitoring Accu-Cheks before meals and at bedtime and as needed as blood sugars were elevated. Blood sugars have been on the lower side today as patient was nothing by mouth and long-acting and sliding scale were held. 12/03/2020 Patient is seen this morning continues to be lethargic although arousable and follows asleep multiple times throughout conversation. Patient continues to have some lower back discomfort although states is slightly improved since the epidural injections yesterday. Patient using CPAP at night and will need outpatient follow-up with the [facility] to receive adequate sized facemask as she recently has just got new dentures and her old mask does not fit properly. Patient is on Flexeril, Xanax, Neurontin, Swisher, and Dilaudid as needed and will decrease these medications as she is continued to be extremely lethargic. Patient will follow-up with pain management out patient. Upon attempting to discharge the patient nursing staff states the patient was having slight altered mental status with visual disturbances and claiming she did not know where she was or how to use her telephone. Code stroke was called. Neurology following and ordered a stat MRI is pending. CT of the brain is negative for any acute intracranial process with no mass lesion or acute infarcts evident. 12/04/2020 Patient is seen and evaluated in follow-up this morning with no acute overnight issues. Patient continues to be lethargic although more arousable today. Patient was awake all morning eating breakfast and playing games on her phone and states she became more drowsy after taking her morning medications which included gabapentin and will decrease the dose that she continues to be drowsy throughout most of the day. Patient underwent MRI which was negative and also instructed the patient to closely follow up with neurology this week. Patient worked with physical therapy and was able to walk over 80 feet with standby assistance. Started the patient to follow-up with orthopedics in the next 1-2 weeks to discuss possible surgical intervention along with pain management as she is on multiple narcotics needing adjustments. Patient to follow-up with [facility] as well to get a proper fitting CPAP mask. To follow-up with primary care provider by Tuesday. Currently no reports of chest pain, shortness of breath, or palpitations. Patient is afebrile. No reports of nausea or vomiting and patient is tolerating diet. Patient will be discharged home today. On exam vital signs are stable. Cardio S1, S2 are muffled. Respiratory system shows diminished breath sounds at the bases with no wheezing or rhonchi noted. Abdomen is soft and obese, and nontender. Nervous system shows no focal deficits. Please refer to medication reconciliation sheet for a list of medications. Patient Condition at Discharge: Fair Plan - Discharge Summary Discharge Rx Participant: No New Discharge Prescriptions: New Cyclobenzaprine [Flexeril] 5 mg PO BID PRN tab PRN Reason: Spasms Continue traMADol HCL [Ultram] 50 mg PO BID ALPRAZolam [Xanax] 0.25 mg PO BID PRN PRN Reason: Anxiety Losartan [Cozaar] 50 mg PO DAILY Montelukast [Singulair] 10 mg PO DAILY Glimepiride [Amaryl] 1 mg PO AC-BRKFST Loratadine 10 mg PO DAILY PRN PRN Reason: Allergy Symptoms HYDROcodone/APAP 5-325MG [Swisher 5-325] 1 tab PO Q8H PRN PRN Reason: Pain Aspirin EC [Ecotrin Low Dose] 81 mg PO DAILY #30 tablet. Changed Gabapentin [Neurontin] 100 mg PO BID #0 Discontinued Hydrochlorothiazide [hydroCHLOROthiazide] 12.5 mg PO DAILY Cephalexin [Keflex] 500 mg PO BID 7 Days #14 cap Nitrofurantoin Monohyd/M-Cryst [Macrobid] 100 mg PO Q12HR #14 cap Ciprofloxacin HCl 500 mg PO BID 5 Days #10 tab Ibuprofen [Motrin] 600 mg PO DAILY PRN PRN Reason: Pain Cyclobenzaprine [Flexeril] 10 mg PO BID Discharge Medication List traMADol HCL [Ultram] 50 mg PO BID 09/07/18 [History] ALPRAZolam [Xanax] 0.25 mg PO BID PRN 12/29/18 [History] Losartan [Cozaar] 50 mg PO DAILY 07/16/19 [History] Glimepiride [Amaryl] 1 mg PO AC-BRKFST 10/17/20 [History] HYDROcodone/APAP 5-325MG [Swisher 5-325] 1 tab PO Q8H PRN 10/17/20 [History] Montelukast [Singulair] 10 mg PO DAILY 10/17/20 [History] Loratadine 10 mg PO DAILY PRN 11/19/20 [History] Aspirin EC [Ecotrin Low Dose] 81 mg PO DAILY #30 tablet. 11/20/20 [Rx] Cyclobenzaprine [Flexeril] 5 mg PO BID PRN tab 12/04/20 [Rx] Gabapentin [Neurontin] 100 mg PO BID #0 12/04/20 [Rx] Follow up Appointment(s)/Referral(s): Tavo Lisa MD [Primary Care Provider] - 12/10/20 8:45 am Pierce Shah MD [STAFF PHYSICIAN] - 1 Week Violet Lugo MD [Medical Doctor] - 1 Week Vikram Alvarez DO [Doctor of Osteopathic Medicine] - 12/19/20 8:30 am Ambulatory/Diagnostic Orders: Basic Metabolic Panel [LAB.AMB] Time Frame: 3 Days, Location: None Selected Patient Instructions/Handouts: Urinary Tract Infection in Women (DC) Activity/Diet/Wound Care/Special Instructions: Activity Limited until follow-up Follow-up with primary care provider early next week Follow-up with orthopedics in 1-2 weeks outpatient Follow-up with pain management in one week outpatient Recommend repeat labs in 2-3 days Continue current diet Work with [facility] about receiving proper fitting CPAP mask as soon as possible Discharge/Stand Alone Forms: Anes Pain/[place] Instructions Discharge Disposition: HOME SELF-CARE
--- NOTE | 2020-12-04 17:13 | P.PN ---
Subjective Progress Note Date: 12/04/20 Patient was seen at bedside and she feels she is back to baseline. Denies of any neurological deficits. She continues to snore very heavily and not use a CPAP machine. Per the patient nurse no further neurological deficits. Objective - Vital Signs Vital signs: Vital Signs Temp 97.3 F L 12/04/20 08:00 Pulse 95 12/04/20 08:00 Resp 18 12/04/20 08:00 BP 135/72 12/04/20 08:00 Pulse Ox 93 L 12/04/20 08:00 Intake & Output 12/03/20 12/04/20 12/04/20 18:59 06:59 18:59 Intake Total 480 Balance 480 Weight 103.873 kg Intake: Oral 480 Other: Voiding Method Toilet Toilet # Voids 2 1 1 - Exam GENERAL: The patient is lying in bed and is not in acute distress. She was severely snoring. NEUROLOGICAL: Higher mental function: The patient is awake, oriented to self, place and time. Patient is following simple commands. No aphasia and no neglect. Cranial nerves: The pupils are round, equal and reactive to light and accommodation. Visual rowe are full to confrontation throughout. Extraocular movement is intact no nystagmus is noted. Facial sensation is normal to touch throughout. The facial strength is normal throughout. Hearing is mildly bilaterally to hand rub. Slight hoarse voice (she said that is her baseline). Motor: Gait is deferred because of her pain. The strength in the left lower extremity proximally is lift above gravity but is limited because of pain. Otherwise lifting all extremities above gravity without difficulty and drift. Normal tone and bulk. Cerebellum: Normal finger to nose bilaterally. Sensation: Sensation is tender to touch over anterior thigh region. Otherwise normal to touch throughout. Reflexes (right/left): 2+ throughout upper while 1+ in lowers. Plantars are mute bilaterally. - Labs CBC & Chem 7: 12/03/20 12:28 12/04/20 06:10 Labs: Abnormal Lab Results - Last 24 Hours (Table) 12/03/20 12/03/20 12/04/20 Range/Units 17:09 20:26 06:10 BUN 38 H (7-17) mg/dL Glucose 109 H (74-99) mg/dL POC Glucose (mg/dL) 179 H (75-99) mg/dL TSH 0.330 L (0.350-5.500) uIU/mL 12/04/20 12/04/20 Range/Units 07:05 11:31 BUN (7-17) mg/dL Glucose (74-99) mg/dL POC Glucose (mg/dL) 104 H 67 L (75-99) mg/dL TSH (0.350-5.500) uIU/mL Assessment and Plan Assessment: This is a 64-year-old woman who has been having left lower back pain rating down the anterior thigh all the way to the left large toe and the onset started after picking up her grandchild. She had multiple ED visit as result of her back pain. * Transient episode of ?blurry vision, confusion, slurring speech: Possibly Transient ischemic attack. Other possibility is encephalopathy, metabolic, medication use and component Seems severe obstructive sleep apnea and not using CPAP machine. * Left Lumbar radiculopathy (L4 and L5 region). presented to the ED multiple times for this (MRI Lumbar shows degenerative changes in the lumbar spine greatest at the L3-L4 level with encroachments on the cervical left L4 nerve) who received epidural injection yesterday. * Altered mental status due to metabolic encephalopathy (acute on chronic kidney insuffiency), septic encephalopathy (from recurrent UTI) and medication effect * Recurrent UTI * Diabetes mellitus * Acute on chronic Kidney insuffiency * Hypertension * History of DVT * Sleep apnea * Osteoarthritis of hips and knees Plan: Patient had MRI of the lumbar spine on 11/20/2020 and it's reported as multilevel degenerative changes in the lumbar spine greatest at the L3-L4 level with encroachments on the cervical left L4 nerve throughout. Findings correlate with the patient's symptoms. Prior Vitamin B12 is 702 in the TSH is 2.92 which is considered within normal limits. MR the brain is reported as no suspicious abnormality to account for the patient's symptoms. No acute infarct identified. Some mild diffuse white matter changes may be present bilaterally. 2-D echo was reported as borderline consider ventricular hypertrophy. Ejection fraction of 60-65%. Repeat the vitamin B12 is 420, folate is 5.6, TSH is 0.330 and a free T4 is 1.30. * Patient is on aspirin 81 and this to be continued. Patient is a little ALLERGIC to statins therefore I'll not place the patient on any statins. * Orthopedic team is on board. * Recommend repeating the vitamin B12 and folate levels as outpatient since there is a discrepancy in accurate levels on two different times. * Physical therapy and occupational therapy are consulted. * Recommend EMG with [facility] as outpatient. * On Gabapentin 300mg bid. Will consider tapering it if she continues to be more sleepy. * Please avoid opiates, narcotics or twice a date of that would affect the patient's mentation. * Upon discharge the patient needs to follow-up with a neurologist as outpatient with 1-2 weeks (She stated she has an appointment Dr. Lugo to her knowledge). * Will defer the rest of medical management to the primary team. There is no further neurological work-up. The plan is discussed with the patient's nurse. Matt Chavarria MD Neuro-Hospitalist Time with Patient: Less than 30
== END 2020-12-04 15:35 | disposition home or self-care (01) | DRG 871 ==
LOC: 4SSUR 14:55
PROVIDERS: ADMIT Family Medicine; ATTEND Family Medicine
PROC: 3E0S33Z Introduction of Anti-inflammatory into Epidural Space, Percutaneous Approach (ICD-10-PCS; principal; 2020-12-02 11:30)
PROC: 3E0S3BZ Introduction of Anesthetic Agent into Epidural Space, Percutaneous Approach (ICD-10-PCS; principal; 2020-12-02 11:30)
PROC: 3E023BZ Introduction of Anesthetic Agent into Muscle, Percutaneous Approach (ICD-10-PCS; principal; 2020-12-02 11:30)
PROC: 5A09457 Assistance with Respiratory Ventilation, 24-96 Consecutive Hours, Continuous Positive Airway Pressure (ICD-10-PCS; 2020-12-04)
DX: A41.9 Sepsis, unspecified organism (principal); G93.41 Metabolic encephalopathy; N17.0 Acute kidney failure with tubular necrosis; J44.1 Chronic obstructive pulmonary disease with (acute) exacerbation; N39.0 Urinary tract infection, site not specified; Z68.41 Body mass index [BMI] 40.0-44.9, adult; G45.9 Transient cerebral ischemic attack, unspecified; E11.22 Type 2 diabetes mellitus with diabetic chronic kidney disease; E11.65 Type 2 diabetes mellitus with hyperglycemia; R65.20 Severe sepsis without septic shock; E66.01 Morbid (severe) obesity due to excess calories; I12.9 Hypertensive chronic kidney disease with stage 1 through stage 4 chronic kidney disease, or unspecified chronic kidney disease; N18.2 Chronic kidney disease, stage 2 (mild); E86.0 Dehydration; M51.16 Intervertebral disc disorders with radiculopathy, lumbar region; M48.061 Spinal stenosis, lumbar region without neurogenic claudication; M43.16 Spondylolisthesis, lumbar region; M47.26 Other spondylosis with radiculopathy, lumbar region; M79.18 Myalgia, other site; G47.33 Obstructive sleep apnea (adult) (pediatric); M26.609 Unspecified temporomandibular joint disorder, unspecified side; M16.0 Bilateral primary osteoarthritis of hip; M17.0 Bilateral primary osteoarthritis of knee; F41.9 Anxiety disorder, unspecified; K21.9 Gastro-esophageal reflux disease without esophagitis; T38.0X5A Adverse effect of glucocorticoids and synthetic analogues, initial encounter; N39.41 Urge incontinence; Z79.82 Long term (current) use of aspirin; Z79.84 Long term (current) use of oral hypoglycemic drugs; Z79.891 Long term (current) use of opiate analgesic; Z79.899 Other long term (current) drug therapy; Z86.718 Personal history of other venous thrombosis and embolism; Z87.11 Personal history of peptic ulcer disease; Z87.442 Personal history of urinary calculi; Z86.69 Personal history of other diseases of the nervous system and sense organs; Z87.820 Personal history of traumatic brain injury; Z90.49 Acquired absence of other specified parts of digestive tract; Z87.19 Personal history of other diseases of the digestive system; Z87.42 Personal history of other diseases of the female genital tract; Z90.710 Acquired absence of both cervix and uterus; Z90.89 Acquired absence of other organs; Z96.651 Presence of right artificial knee joint; Z87.440 Personal history of urinary (tract) infections; Z98.890 Other specified postprocedural states; Z71.3 Dietary counseling and surveillance; Z91.041 Radiographic dye allergy status; Z88.8 Allergy status to other drugs, medicaments and biological substances; Z80.8 Family history of malignant neoplasm of other organs or systems; Z81.1 Family history of alcohol abuse and dependence; Z83.79 Family history of other diseases of the digestive system
CPT/HCPCS: 20552; 62323; 70450; 70551; 71045; 71250; 76770; 80048; 80053; 80061; 81001; 82550; 82553; 82607; 82746; 83605; 83735; 84439; 84443; 84484; 85025; 85027; 85379; 85610; 85730; 87086; 93306; 94640; 94660; 94760

== ENCOUNTER → 2020-12-22 | Outpatient (CLI) | payer OTHER ==
--- NOTE | 2020-12-22 15:01 | US ---
EXAMINATION TYPE: US bladder DATE OF EXAM: 12/22/2020 COMPARISON: NONE CLINICAL HISTORY: R33.9 Urinary retention. patient cannot feel the urgency to void but she also does not void a large amount when she does. EXAM MEASUREMENTS: Post Void Residual Volume: 23 mL Normal Post Void Residual (less than 50ml): yes Prevoid urinary bladder is small in volume at 131 mL. Bilateral ureteral jets were not seen. IMPRESSION: Post void residual volume 23 mL.
== END | disposition home or self-care (01) ==
LOC: RADUSWWP 13:12
PROVIDERS: ATTEND Orthopaedic Surgery
DX: R33.9 Retention of urine, unspecified (principal)
CPT/HCPCS: 76857

== ENCOUNTER → 2020-12-22 | Outpatient (CLI) | payer OTHER | END | disposition home or self-care (01) | LOC: LABPAT 13:14 | PROVIDERS: ATTEND Orthopaedic Surgery | DX: Z01.812 Encounter for preprocedural laboratory examination (principal); M48.061 Spinal stenosis, lumbar region without neurogenic claudication; Z22.322 Carrier or suspected carrier of Methicillin resistant Staphylococcus aureus | CPT/HCPCS: 36415; 86850; 86900; 86901; 87070 ==

== ENCOUNTER 2020-12-30 06:31 | Inpatient (IN) | payer MEDICARE, OTHER ==
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
[2020-12-29 11:39] VITALS: BMI 41.0
[~2020-12-30 06:31] MED LIST changes: +ACETAMINOPHEN TAB 500 MG TAB PO PRN; -ALPRAZolam 0.25 MG TAB PO PRN; -ALPRAZolam 0.5 MG TAB PO PRN; -ASPIRIN 325 MG TAB PO ONE; +GABAPENTIN 300 MG CAP PO PRN; -HYDROmorphone 0.5 MG/0.5 ML SYRINGE IVP STA; -HYDROmorphone 1 MG/ML 1 ML SYRINGE IVP ONE; -HYDROmorphone 1 MG/ML 1 ML SYRINGE ONE; -IOPAMIDOL-370 125ML BTL INJ ONE; -LIDOCAINE 1% INJ 10MG/ML (20 ML MDV) ONE; -LIDOCAINE 1% INJ 10MG/ML (20 ML MDV) SQ ONE; -MIDAZOLAM 2 MG/2 ML VIAL IVP ONE; -NITROGLYCERIN SL TABS 0.4 MG TAB SUBLINGUAL PRN; +ONDANSETRON 4 MG/2 ML VIAL IVP PRN; -RX INFO: IV CONTRAST WAS GIVEN 1 EACH MISC MISCELLANE PRN; -SODIUM CHLORIDE 0.9% 1,000 ML IV SCH; -SODIUM CHLORIDE 0.9% 1,000 ML in EMPTY BAG 1 BAG IV ONE; +TRANEXAMIC ACID 1,000 MG in SODIUM CHLORIDE 0.9% 100 ML IVPB PRN; +VANCOMYCIN 1,500 MG in SODIUM CHLORIDE 0.9% 250 ML IVPB PRN; -fentaNYL (PF) 50 MCG/ML 2 ML AMP IVP ONE; -fentaNYL (PF) 50 MCG/ML 2 ML AMP ONE
[2020-12-30] MEDS ORDERED: LIDOCAINE 1% (10MG/ML) FOR IV START INTRADERMA ONE (07:00)
[2020-12-30] MEDS ORDERED: MIDAZOLAM 2 MG/2 ML VIAL IV PRN (07:00)
[2020-12-30] MEDS ORDERED: HYDROmorphone 0.5 MG/0.5 ML SYRINGE IVP PRN (07:00)
[2020-12-30] MEDS: LACTATED RINGERS 1,000 ML IV SCH (07:15)
[2020-12-30 07:24] LABS: Glucose,Whole Blood 148 mg/dL (75-99)
[2020-12-30] MEDS ORDERED: NEOSTIGMINE 1 MG/ML 10 ML VIAL ONE (07:25)
[2020-12-30] MEDS ORDERED: fentaNYL (PF) 50 MCG/ML 2 ML AMP ONE (07:25)
[2020-12-30] MEDS ORDERED: SODIUM CHLORIDE 0.9% 100 ML BAG ONE (07:25)
[2020-12-30] MEDS ORDERED: MIDAZOLAM 2 MG/2 ML VIAL ONE (07:25)
[2020-12-30] MEDS ORDERED: TRANEXAMIC ACID 1,000 MG/10 ML VIAL ONE (07:25)
[2020-12-30] MEDS ORDERED: PHENYLEPHRINE-0.9% NACL SYG 1,000 MCG/10 ML SYRINGE ONE (07:25)
[2020-12-30] MEDS ORDERED: KETOROLAC 15 MG/ML 1 ML VIAL ONE (07:25)
[2020-12-30] MEDS ORDERED: ROCURONIUM 10 MG/ML (5 ML VIAL) IV ONE (07:25)
[2020-12-30] MEDS ORDERED: GLYCOPYRROLATE 0.2 MG/ML 2 ML VIAL ONE (07:25)
[2020-12-30] MEDS ORDERED: SUCCINYLCHOLINE CHLORIDE 100 MG/5 ML SYR IV ONE (07:25)
[2020-12-30] MEDS ORDERED: KETAMINE 10 MG/ML 20 ML VIAL ONE (07:25)
[2020-12-30] MEDS ORDERED: PROPOFOL 10 MG/ML 20 ML VIAL IV ONE (07:25)
[2020-12-30] MEDS ORDERED: LIDOCAINE 1% INJ 10MG/ML (20 ML MDV) ONE (07:25)
[2020-12-30] MEDS ORDERED: GELATIN SPONGE,ABSORB (LARGE) 1 EACH SPONGE TOPICAL ONE (07:30)
[2020-12-30] MEDS ORDERED: VANCOMYCIN 1,000 MG VIAL MISCELLANE ONE (07:30)
[2020-12-30] MEDS ORDERED: BUPIVACAINE (PF) 0.25% 30 ML VIAL SQ ONE (07:30)
[2020-12-30] MEDS ORDERED: THROMBIN (BOVINE) 5,000 UNIT VIAL TOPICAL ONE (07:30)
[2020-12-30] MEDS ORDERED: ceFAZolin 3,000 MG in SODIUM CHLORIDE 0.9% IRRIGATIO 3,000 ML IRRIGATION ONE (08:51)
[2020-12-30] MEDS ORDERED: LACTATED RINGERS 1,000 ML IV ONE (09:42)
--- NOTE | 2020-12-30 11:03 | FL ---
Fluoroscopy INDICATION: Pain FINDINGS: Fluoroscopy time: 6 seconds. Images obtained: 6. IMPRESSIONS: 1. Documentation of fluoroscopy.
[2020-12-30 11:08] LABS: Glucose,Whole Blood 158 mg/dL (75-99)
[2020-12-30] MEDS ORDERED: CYCLOBENZAPRINE 10 MG TAB PO PRN (11:27)
[2020-12-30] MEDS ORDERED: ONDANSETRON 4 MG/2 ML VIAL IVP PRN (11:27)
[2020-12-30] MEDS ORDERED: VANCOMYCIN IV PER PHARMACY 1 EACH MISC MISCELLANE PRN (11:29)
--- NOTE | 2020-12-30 11:31 | P.PN ---
Progress Note - Text Progress Note Date: 12/30/20 Post op: Pt s/e. Doing OK. Still sleepy. Pain controlled. Drain in place. Moving all 4 ext. No issues. VSS at this time. TF to floor per anesthesia and PACU team.
[2020-12-30] MEDS: LABETALOL SYRINGE 5 MG/ML IVP ONE ×2 (12:39→14:46)
--- NOTE | 2020-12-30 14:57 | OP ---
OPERATIVE REPORT DATE OF SERVICE: 12/30/2020 PREOPERATIVE DIAGNOSES: 1. L3 through L5 stenosis with L3-L4 disk herniation and L4-L5 disk herniation. 2. Spondylosis L3 to S1. 3. Morbid obesity. 4. Complex medical patient. POSTOPERATIVE DIAGNOSES: 1. L3 through L5 stenosis with L3-L4 disk herniation and L4-L5 disk herniation. 2. Spondylosis L3 to S1. 3. Morbid obesity. 4. Complex medical patient. PROCEDURES PERFORMED: 1. Bilateral laminectomy with partial medial facetectomy and foraminotomy, L3 to L5. 2. Microdiskectomy L3-L4 and L4-L5. 3. Use of intraoperative microscope. 4. Use of intraoperative fluoroscopy. ANESTHESIA: General endotracheal intubation. BLOOD LOSS: 100 cc. FLUIDS: 2000 LR. COMPLICATIONS: None. DISPOSITION: Stable to PACU. INDICATION FOR PROCEDURE: This 66-year-old female who was recently hospitalized for UTI and possible CVA, followed up for her low back pain, her left lower extremity pain and weakness. She was worked up in the hospital at the time for her back pain but she did not have surgery secondary to her medical state. She did undergo an MARY ELLEN in the hospital, which did help some of her symptoms but they are gradually coming back and she has continued to have weakness in her left lower extremity. She presented with this continuous pain and low back pain. Following her discharge to the hospital she did state she had an incidence of bowel and bladder incontinence, but that has only happened once and not again. She states that her bowel movements, however, feel somewhat incomplete and that when she voids she feels that there is still some left in her bladder. She denies any perineal numbness or tingling. She denies any other bowel or bladder symptoms other than what is stated. She again continues to have left lower extremity pain and ambulates with a cane secondary to the weakness. The patient was seen and examined in the preoperative area and all preop protocols followed. The patient was given a weight based dose of vancomycin. She was given tranexamic acid. We discussed the risks and benefits of the procedure including risk of bleeding, infection, damage to surrounding tissue, risk of reoperation, risk of anesthesia up to and including . She was willing to assume these risks and all the risks of surgery as outlined in the risk review. She was willing to proceed with the procedure. The site was marked. She was cleared by anesthesia and she was ready to proceed. OPERATIVE REPORT: The patient was transferred to the operative suite by the department of anesthesia. She was then drifted off to sleep by the department of anesthesia and general endotracheal intubation was performed. Once adequate anesthesia had been obtained, the patient was transferred very carefully from her hospital bed to a prone position on a [employer] table. Her arms were placed up and out in the 90/90 position. We paid special attention to her wrists, elbows, axilla, chest, hips, thighs, knees, and ankles as well as genitalia to make sure that they were properly padded. Prior to the flip a Pete was placed. This was done by the nursing staff and was atraumatic. Once in the flipped position we confirmed that the patient could ventilate and that her lines were running. Her arms were again placed in the up and out position in the 90/90 position. The table was placed in some reverse Trendelenburg to decrease intraabdominal pressure. We then used intraoperative fluoroscopy for bio marking of the patient. We bio marked the areas from L3 to L5 for our incision posterior midline. This was then outlined with a 1000 drapes and cleaned with alcohol. Once in position and all parties in agreement, the patient's lumbar spine was prepped and draped in the normal sterile fashion. Time-out was performed and all parties in agreement with the procedure to be performed. A skin incision was made after infiltration with 1% Marcaine without epinephrine over the previously by marked area of her lumbar spine. This midline incision was taken down with electrocautery with meticulous hemostasis to the lumbar fascia. This was identified and cleaned with a Jefferson. A midline fasciotomy was then made over the spinous process of L3 through L5. This was then taken subperiosteal down over the lamina into the facet joints. The facet capsules were taken care not to disrupt the capsules of the facets and the facet joints. We then used electrocautery to clean the area and magda off our laminotomy sites. A Milaca was then placed at the pars of L3 and a lateral fluoroscopic image was taken to confirm our levels. This was then saved. We then proceeded with laminectomy first with a rongeur removing the spinous processes of L3 through the top of L5. We then performed bilateral laminotomies of L3, L4 and the top of L5 to achieve a bilateral laminectomy from L3 to L5. Once in the lamina was loose, we then cleaned this with a 2-0 up-biting curette. The 2-0 up-biting curette was then used to remove the ligamentum flavum and a rongeur was used to remove the "lobster tail" of bone. Meticulous hemostasis was then performed with FloSeal and patties. The dura was inspected and there was no injury. We then proceeded to widen our laminotomies and laminectomies slightly in order to visualize the lateral aspect of the dura and to perform foraminotomies from an inside-out approach of L3-4 and L4-5 bilaterally. Once this was accomplished we then turned our attention to the L3- 4 disk space where there was a large disk herniation that protruded into the foramen. We carefully teased the dura off of this which was extremely scarred on to the disk herniation, and we removed the portions of this that we could that were protruding in this area causing impingement on the exiting nerve root. Meticulous hemostasis was again performed with electrocautery bipolar as well as FloSeal and patties. Once this was accomplished, a Abbott ball probe was passed through the foramen from L3 to L5 and they were free and there was plenty of room for the nerves to exit. The dura had been decompressed completely in this area. We then took a lateral fluoroscopic image to confirm our decompressed levels. We then irrigated the wound copiously with first 3 L of sterile saline with antibiotic irrigation followed by 3 L of normal sterile saline irrigation. Once this was accomplished, meticulous hemostasis again performed using FloSeal and patties. We then placed Surgicel over the exposed dura. A drain was then placed deep to the fascia on the right-hand side and sewn in place. We then proceeded with fascial closure with first #1 Vicryl in a simple fashion followed by a running unidirectional Stratafix. 0 Vicryl was placed in the deep Camper's and No layers to allow for approximation and decrease space. We then placed 2-0 Vicryl in the subcu region followed by 2-0 nylon in a horizontal mattress fashion. The wound edges approximated very well. The drain was connected and was holding good suction. Before closure vancomycin was placed deep within the wound. Once the wound was closed it was then clean sterilely and dressed with an Aquacel dressing as well as Tegaderms and drain sponge. The patient was then transferred back to her bed atraumatically and the drain continued to hold suction. She was then extubated by the department of anesthesia having tolerated the procedure very well with no complications. She was then transferred to postoperative care unit in stable condition. JOSÉ / MINOR: [id number] / MTDD
[2020-12-30] MEDS: 0.9% NACL WITH KCL 20 MEQ/L 1,000 ML IV SCH ×2 (15:32→23:14)
[2020-12-30] MEDS: ACETAMINOPHEN TAB 500 MG TAB PO SCH ×2 (15:32→20:48)
[2020-12-30] MEDS: GABAPENTIN 300 MG CAP PO SCH ×2 (15:32→20:49)
[2020-12-30] MEDS: KETOROLAC 15 MG/ML 1 ML VIAL IVP SCH ×2 (17:03→23:12)
[2020-12-30] MEDS: HYDROmorphone 0.5 MG/0.5 ML SYRINGE IVP PRN (21:01)
[2020-12-30] MEDS ORDERED: LORATADINE 10 MG TAB PO PRN (23:41)
[2020-12-31] MEDS: methylPREDNISolone SOD SUCCI 40 MG/ML 1 ML VIAL IV SCH ×3 (01:43→16:26)
[2020-12-31] MEDS: ACETAMINOPHEN TAB 500 MG TAB PO SCH ×4 (01:44→21:08)
[2020-12-31] MEDS ORDERED: VANCOMYCIN 1,500 MG in SODIUM CHLORIDE 0.9% 250 ML IVPB SCH (02:00)
[2020-12-31] MEDS: KETOROLAC 15 MG/ML 1 ML VIAL IVP SCH ×3 (05:52→16:26)
[2020-12-31] MEDS: HYDROmorphone 0.5 MG/0.5 ML SYRINGE IVP PRN ×3 (06:18→13:20)
--- NOTE | 2020-12-31 06:41 | CONS ---
CONSULTATION A 65-year-old white female for medical consult, status post lumbar surgery, Dr. Alvarez. The patient was saturating 88 postoperative with a high blood pressure in the 190 systolic, was given some medication. Her oxygen level went from 89 to 99 on 2 L postop. She is holding my hand, giving appropriate answers after surgery at this time. REVIEW OF SYSTEMS: Fourteen-point review of systems negative except for mentioned in HPI. MEDICATIONS: Reviewed. Orthopedic notes reviewed PHYSICAL EXAMINATION: Temperature 99.3, pulse 96, blood pressure 123/79, O2 is 98 on BiPAP, FiO2 40%. CARDIOVASCULAR: S1, S2. LUNGS: Clear. Decreased breath sounds. Hematology negative Homans. Psych fair mood and affect. ASSESSMENT: 1. Status post lumbar surgery. 2. Chronic neuropathy. 3. Chronic pain syndrome. Vancomycin is being given. Continue to wean her and restart home medications. Please see further orders. Possible chest x-ray will be done and breathing treatments will be done. She has history of COPD, nicotine addiction, possible postop hypoxemia. Please see further orders. MMODL / IJN: [id number] /
--- NOTE | 2020-12-31 06:54 | XR ---
EXAMINATION TYPE: XR chest 1V portable DATE OF EXAM: 12/31/2020 COMPARISON: 11/30/2020 HISTORY: Shortness of breath TECHNIQUE: Frontal and lateral views of the chest are obtained. FINDINGS: Scattered senescent parenchymal changes noted. Hyperinflation compatible with COPD. No evidence for infiltrate. No evidence for atelectasis. Heart size is stable. Mediastinal structures are stable and grossly unremarkable. No evidence for hilar prominence. Degenerative changes dorsal spine. IMPRESSION: 1. No evidence for acute pulmonary disease.
[2020-12-31] MEDS: LACTATED RINGERS 1,000 ML IV SCH (06:58)
[2020-12-31] MEDS: INSULIN ASPART (NovoLOG) 100 UNIT/ML VIAL SQ SCH ×4 (08:18→21:09)
[2020-12-31] MEDS: POTASSIUM CHLORIDE ER 10 MEQ TAB.ER.PRT PO SCH (08:26)
[2020-12-31] MEDS: LOSARTAN 50 MG TAB PO SCH (08:27)
[2020-12-31] MEDS: GABAPENTIN 300 MG CAP PO SCH ×3 (08:27→21:08)
[2020-12-31] MEDS: BUMETANIDE 0.5 MG TABLET PO SCH (08:28)
[2020-12-31] MEDS: IPRATROPIUM-ALBUTEROL 3 ML NEB INHALATION SCH ×4 (08:37→20:08)
--- NOTE | 2020-12-31 11:22 | P.PN ---
Subjective Progress Note Date: 12/31/20 Principal diagnosis: L3-L5 stenosis; L3-L4 disc hernation; L4-L5 disc herniation Spondylosis L3-S1 Patient seen at bedside this morning. Patient is lying semirecumbent in bed. Patient has SCDs on bilaterally. Patient not on any O2 this morning. Patient says she has not had bladder movement since surgery. She says will usually urinate every morning upon waking, however, she has not urinated since surgery yesterday. patient does say over the past couple days her urine has been whitish in color. She denies any odor to this urine. Patient says both legs do feel weak. However, she does say some numbness/tingling is resolving in the right leg. The left leg still seems to be numb and tingling to her. Patient denies chest pain, fever, shortness of breath, nausea, vomiting, loss of bowel control. Objective - Vital Signs Vital signs: Vital Signs Temp 98.8 F 12/31/20 06:55 Pulse 96 12/31/20 06:55 Resp 17 12/31/20 06:55 BP 124/71 12/31/20 06:55 Pulse Ox 93 L 12/31/20 06:55 Intake & Output 12/30/20 12/31/20 12/31/20 18:59 06:59 18:59 Intake Total 2000 Output Total 150 Balance 1851 Intake: IV 2000 Output: Urine 50 Estimated Blood Loss 100 Other: Voiding Method External Catheter # Voids 0 - Exam SHAMA drain in place with minimal serosanguineous drainage. Patient able to wiggle toes bilaterally. Patient is not able to lift legs off of bed due to weakness in legs post-surgery. However patient does mention that there is resolving numbness/tingling in the right leg. Sensation is symmetric, equal and intact bilaterally in lower extremities. Negative Homans bilaterally. Negative Seth's bilaterally. Negative clonus upon dorsiflexing feet bilaterally. There is some suprapubic tenderness on palpation. - Labs Labs: Abnormal Lab Results - Last 24 Hours (Table) 12/30/20 Range/Units 11:06 POC Glucose (mg/dL) 158 H (75-99) mg/dL Assessment and Plan Assessment: Postoperative day #1 1. L3-L5 stenosis; L3-L4 disc hernation; L4-L5 disc herniation 2. Spondylosis L3-S1 Plan: 1. L3-L5 stenosis; L3-L4 disc hernation; L4-L5 disc herniation; Spondylosis L3- S1 - surgery performed yesterday, 12/30/2020. Bilateral laminectomy with partial medial facetectomy and foraminotomy, L3 to L5. Microdiscectomy L3 to L4 and L4-L5. Patient stable this morning. numbness/tingling in right leg is resolving. Left leg sterile presenting with numbness/tingling. Bilateral legs are weak. We will continue follow patient while in hospital 2. Appreciate medical management 3. Pain management - stable at this time 4. GI ppx 5. PT/OT - weightbearing as tolerated with assistance needed 6. Encourage incentive spirometer use 7. Urinary retention - repeat bladder scan; 0.4 mg Flomax ordered 8. Discharge planning Time with Patient: Less than 30
[2020-12-31 11:27] LABS: Glucose,Whole Blood 357 mg/dL (75-99)
[2020-12-31] MEDS: TAMSULOSIN 0.4 MG CAP.ER.24H PO SCH (12:17)
[2020-12-31 13:15] LABS: HCT 35.1 % (37.2-46.3); MCH 30.7 pg (27.0-32.0); MCHC 31.3 g/dL (32.0-37.0); Mean Platelet Volume 11.6 fL (9.5-12.2); Platelet Count 171 X 10*3/uL (140-440); RBC 3.58 X 10*6/uL (4.10-5.20); RDW 13.2 % (11.5-14.5); WBC 7.26 X 10*3/uL (4.50-10.00)
[2020-12-31 15:09] LABS: Basophils # (A) 0.03 X 10*3/uL (0.00-0.10); Basophils % (A) 0.4 %; Eosinophils # (A) 0.02 X 10*3/uL (0.04-0.35); Eosinophils % (A) 0.3 %; Lymphocytes # (A) 0.54 X 10*3/uL (0.90-5.00); Lymphocytes % (A) 7.4 %; Monocytes # (A) 0.12 X 10*3/uL (0.20-1.00); Monocytes % (A) 1.7 %; Neutrophils # (A) 6.53 X 10*3/uL (1.80-7.70); Neutrophils % (A) 89.9 %
[2020-12-31 15:28] LABS: Albumin 3.8 g/dL (3.80-4.90); Albumin/Globulin Ratio 1.73 (1.60-3.17); Anion Gap 12.3 mmol/L (4.00-12.00); BUN/Creat Ratio 13.53 Ratio (12.00-20.00); Calcium 8.9 mg/dL (8.7-10.3); Carbon Dioxide 22.7 mmol/L (21.6-31.8); Globulin 2.2 g/dL (1.6-3.3); Non-African American GFR(CKD) 31.1 (60.0-200.0); Total Bilirubin 0.6 mg/dL (0.2-1.2)
[2020-12-31] MEDS: 0.9% NACL WITH KCL 20 MEQ/L 1,000 ML IV SCH (16:27)
[2020-12-31 16:30] LABS: Glucose,Whole Blood 283 mg/dL (75-99)
[2020-12-31 20:41] LABS: Glucose,Whole Blood 266 mg/dL (75-99)
[2020-12-31] MEDS: ASPIRIN 81 MG PO SCH (21:08)
[2020-12-31] MEDS: MONTELUKAST 10 MG TAB PO SCH (21:08)
[2021-01-01] MEDS: KETOROLAC 15 MG/ML 1 ML VIAL IVP SCH ×5 (00:39→21:57)
[2021-01-01] MEDS: 0.9% NACL WITH KCL 20 MEQ/L 1,000 ML IV SCH ×2 (00:39→17:48)
[2021-01-01] MEDS: methylPREDNISolone SOD SUCCI 40 MG/ML 1 ML VIAL IV SCH ×3 (00:39→16:30)
[2021-01-01] MEDS: ACETAMINOPHEN TAB 500 MG TAB PO SCH ×4 (01:58→21:59)
--- NOTE | 2021-01-01 02:50 | PN ---
PROGRESS NOTE Status post L3-L5 stenosis with lumbar laminectomy. The patient is breathing normal now. She is in the high 90s on room air. Cardiovascular: S1, S2. Lungs clear. GI soft. Hematology negative Homans. Urinary retention 650 in the Pete on a bladder scan. She will have to have a Pete put in for a couple days. Started on Flomax for urinary retention. Continue current breathing treatments. Lungs clear. GI soft. Hematology negative Homans. Psych: Fair mood and affect. Neurologic: Alert and orient x3. ASSESSMENT: 1. Status post lumbar laminectomy. 2. Urinary retention. 3. Chronic obstructive pulmonary disease. 4. Hypertension. Continue current treatments, Flomax, Pete catheter. Prognosis guarded. MMODL / IJN: [id number] /
[2021-01-01] MEDS: LACTATED RINGERS 1,000 ML IV SCH (05:48)
[2021-01-01] MEDS: VANCOMYCIN 1,500 MG in SODIUM CHLORIDE 0.9% 250 ML IVPB SCH (05:48)
[2021-01-01 07:05] LABS: Glucose,Whole Blood 261 mg/dL (75-99)
[2021-01-01 07:29] LABS: African American GFR (CKD) 36 (>60 ml/min/1.73 sqM); Anion Gap 6 mmol/L; Blood Urea Nitrogen 33 mg/dL (7-17); Calcium 9.1 mg/dL (8.4-10.2); Carbon Dioxide 24 mmol/L (22-30); Chloride 108 mmol/L (98-107); Glucose 232 mg/dL (74-99); Non-African American GFR(CKD) 31 (>60 ml/min/1.73 sqM); Potassium 5.2 mmol/L (3.5-5.1); Sodium 138 mmol/L (137-145)
[2021-01-01] MEDS: IPRATROPIUM-ALBUTEROL 3 ML NEB INHALATION SCH ×4 (07:31→20:09)
[2021-01-01] MEDS: INSULIN ASPART (NovoLOG) 100 UNIT/ML VIAL SQ SCH ×3 (07:39→17:48)
[2021-01-01] MEDS: GABAPENTIN 300 MG CAP PO SCH ×3 (08:51→21:59)
[2021-01-01] MEDS: TAMSULOSIN 0.4 MG CAP.ER.24H PO SCH (08:52)
[2021-01-01] MEDS: LOSARTAN 50 MG TAB PO SCH (08:56)
[2021-01-01] MEDS: BUMETANIDE 0.5 MG TABLET PO SCH (08:57)
[2021-01-01] MEDS: POTASSIUM CHLORIDE ER 10 MEQ TAB.ER.PRT PO SCH (09:05)
--- NOTE | 2021-01-01 09:51 | P.PN ---
Subjective Progress Note Date: 01/01/21 Principal diagnosis: Lumbar stenosis Patient seen and examined this morning she is doing fairly well. She was up in the chair yesterday for a brief period of time. She still having some weakness in her left lower extremity however it seems to be improving she states that the pain in her legs is much better than it was preoperatively. She denies any bowel or bladder issues denies any perineal numbness or tingling. PT is in the room and they are planning on getting her up again and working on ambulation as well as to the chair. Her drain is in place and will likely be removed later today. Objective - Vital Signs Vital signs: Vital Signs Temp 99.3 F 01/01/21 07:03 Pulse 98 01/01/21 07:44 Resp 17 01/01/21 07:03 BP 137/70 01/01/21 07:03 Pulse Ox 94 L 01/01/21 07:03 Intake & Output 12/31/20 01/01/21 01/01/21 18:59 06:59 18:59 Output Total 1375 400 Balance -1375 -400 Weight 96.9 kg Output: Drainage 0 Back 0 Urine 1375 400 Uretheral (Garcia) 525 Other: Voiding Method External Catheter - Exam Patient is alert and oriented 3 appears well-nourished well-hydrated is in no acute distress. They does not appear septic. On exam the patient has no tenderness to palpation of her thoracic or lumbar spine. There is no edema or ballottement sign. Lower extremities with 4 out of 5 strength in all major muscle groups. She does have 3-4 minus strength in hip flexion on the left she has 4 minus strength in dorsiflexion on the left. Upper extremities show 5/5 strength in all major muscle groups. There is FROM that is painless of the b/l UE and LE in all major joints. They are intact to light touch sensation in L2 to S1 nerve distribution as well as C5 to T1. Patient has palpable dorsalis pedis was posterior tibial pulses. Compartments are soft and compressible. Patient shows a negative Homans, Mathur's, negative Babinski's negative clonus bilaterally. negative straight leg raise bilaterally. No tensioning signs. Cranial nerves II through XII are grossly intact. Overall alignment is well-maintained in the sagittal coronal planes. Incision clean dry and intact dressing clean dry and intact drain is in place will be removed today. No output. No erythema or ecchymosis or edema no drainage - Labs CBC & Chem 7: 12/31/20 06:46 01/01/21 05:20 Labs: Abnormal Lab Results - Last 24 Hours (Table) 12/31/20 12/31/20 12/31/20 Range/Units 06:46 06:46 11:24 RBC 3.58 L (4.10-5.20) X 10*6/uL Hgb 11.0 L (12.0-15.0) g/dL Hct 35.1 L (37.2-46.3) % MCV 98.0 H (80.0-97.0) fL MCHC 31.3 L (32.0-37.0) g/dL Lymphocytes # 0.54 L (0.90-5.00) X 10*3/uL Monocytes # 0.12 L (0.20-1.00) X 10*3/uL Eosinophils # 0.02 L (0.04-0.35) X 10*3/uL Potassium (3.5-5.1) mmol/L Chloride (98-107) mmol/L Anion Gap 12.30 H (4.00-12.00) mmol/L BUN (7-17) mg/dL Creatinine 1.7 H (0.6-1.5) mg/dL Est GFR (CKD-EPI)AfAm 36.0 L (60.0-200.0) Est GFR (CKD-EPI)NonAf 31.1 L (60.0-200.0) Glucose 229 H (70-110) mg/dL POC Glucose (mg/dL) 357 H (75-99) mg/dL AST 41 H (13-35) U/L Total Protein 6.0 L (6.2-8.2) g/dL 12/31/20 12/31/20 01/01/21 Range/Units 16:27 20:39 05:20 RBC (4.10-5.20) X 10*6/uL Hgb (12.0-15.0) g/dL Hct (37.2-46.3) % MCV (80.0-97.0) fL MCHC (32.0-37.0) g/dL Lymphocytes # (0.90-5.00) X 10*3/uL Monocytes # (0.20-1.00) X 10*3/uL Eosinophils # (0.04-0.35) X 10*3/uL Potassium 5.2 H (3.5-5.1) mmol/L Chloride 108 H (98-107) mmol/L Anion Gap (4.00-12.00) mmol/L BUN 33 H (7-17) mg/dL Creatinine 1.72 H (0.6-1.5) mg/dL Est GFR (CKD-EPI)AfAm (60.0-200.0) Est GFR (CKD-EPI)NonAf (60.0-200.0) Glucose 232 H (70-110) mg/dL POC Glucose (mg/dL) 283 H 266 H (75-99) mg/dL AST (13-35) U/L Total Protein (6.2-8.2) g/dL 01/01/21 Range/Units 06:48 RBC (4.10-5.20) X 10*6/uL Hgb (12.0-15.0) g/dL Hct (37.2-46.3) % MCV (80.0-97.0) fL MCHC (32.0-37.0) g/dL Lymphocytes # (0.90-5.00) X 10*3/uL Monocytes # (0.20-1.00) X 10*3/uL Eosinophils # (0.04-0.35) X 10*3/uL Potassium (3.5-5.1) mmol/L Chloride (98-107) mmol/L Anion Gap (4.00-12.00) mmol/L BUN (7-17) mg/dL Creatinine (0.6-1.5) mg/dL Est GFR (CKD-EPI)AfAm (60.0-200.0) Est GFR (CKD-EPI)NonAf (60.0-200.0) Glucose (70-110) mg/dL POC Glucose (mg/dL) 261 H (75-99) mg/dL AST (13-35) U/L Total Protein (6.2-8.2) g/dL Assessment and Plan Assessment: 65-year-old female postop day 2 L3 to 5 laminectomy decompression 1. L3-4 severe stenosis 2.L4-5 Moderate stenosis 3. L3-4 HNP 4. LLE weakness 5. LLE radiculopathy 6. Intermittent bowel bladder issues 7. Morbid obesity I outlined the natural course history without intervention and various interventional options. Plan: -Appreciate it solutions sales consultant and team management. -Activity: Ambulate QID, OOB all meals, up and about, limit lifting bending twisting to less than 5 lbs. Use walker or cane if needed for stability. -Daily PT/OT, increase ambulation strength and balance. -No braces needed -Pain control: [Adequate at this time] -Meds: [reviewed] -GI ppx: senna, Miralax -DC garcia when up and about, bedside commode if needed -DVT PPX: [OK to restart Heparin -Hygiene: Shower today. Maintain dressing clean and dry. Meticulous cleaning after BMs away from incision site -Drains: Will be discontinued today -Encourage IS 10x/hr -Dispo: [facility]RESSA likely tomorrow
[2021-01-01 10:26] LABS: Glucose,Whole Blood 241 mg/dL (75-99)
[2021-01-01 11:32] LABS: Glucose,Whole Blood 248 mg/dL (75-99)
--- NOTE | 2021-01-01 13:32 | CDI ---
Documentation Clarification Form Date: 01/01/2021 01:19:38 PM From: Lindsey SimonTapiaDESIREE collins, CCDS Admit Date: 12/31/2020 02:45:00 PM Patient Name: Shalonda Smalls Visit Number: [id number] Discharge Date: ATTENTION: The Clinical Documentation Specialists (CDI) and [facility] Coding Staff appreciate your assistance in clarifying documentation. Please respond to the clarification below the line at the bottom and electronically sign. The CDI & [facility] Coding staff will review the response and follow-up if needed. Please note: Queries are made part of the Legal Health Record. If you have any questions, please contact the author of this message via ITS. Dr. Vikram Alvarez: Per the 12/31 Orthopedic Surgeon Progress Note: Some POUR noted and Pete replaced due to high PVR. She was started on Flomax and we will get Urology Consult as well. Urine Retention, started on Flomax. Additional clarification is requested regarding the relationship, if any, that exists between the diagnosis and the procedure. Patients Admitting Diagnosis per the 12/30 Operative Note: L3 through L5 Stenosis with L3-L4 disk herniation & L4-L5 disk herniation. Spondylosis L3 to S1. Morbid Obesity. Per the 12/29 H/P: Leg weakness and bladder retention. Post-Operative Diagnosis: L3 through L5 stenosis with L3-L4 disk herniation and L4-L5 disk herniation. Spondylosis L3 to S1. Morbid obesity. Complex medical patient. Procedure performed 12/30: Bilateral laminectomy with partial medial facetectomy and foraminotomy, L3 to L5. Microdiskectomy L3-L4 and L4-L5. Use of intraoperative microscope. Use of intraoperative fluoroscopy. History/Risk Factors per the 12/29 H/P: Leg weakness, bladder retention, Low back pain, Morbid Obesity w/BMI 44.72. Recent admit with UTI and possible CVA. Asthma, DM II, DVT, GERD, Hypertension, Osteoarthritis, CKD II, ANDREW, PUD, Colitis, Benign colon polyp, Migraines, Kidney Stones, Vertigo. Clinical Indicators: Presented 12/30 for elective back surgery as above. Per physician documentation in 12/31 Progress Note & Nursing Note on 12/31: Pete catheter placed for Retention. 01/01 Medical Management Progress Note: Urinary retention 650 in the Pete on a bladder scan. Treatment: Pete catheter replaced, Flomax ordered: 0.4 mg po: scheduled. Consults: Pending Urology Consult. What relationship, if any, exists between the diagnosis of Urinary Retention and the procedure: [ ] Urinary Retention is a complication of surgical procedure [ ] Urinary Retention is an expected outcome of the surgical procedure [ ] Urinary Retention is related to patients co-morbid condition(s) of (please specify: ) & is not a complication of the procedure [ ] Other please specify: [ ] Unable to determine (Template Last Revised: August 2020) Urinary retention is related to the patient's comorbid conditions including her previous history of urinary retention which was likely exacerbated post procedure. It is hard to determine whether or not this was directly related to the procedure as the patient does have a history of this. It was treated appropriately however with Pete placement Flomax and urology consult. MATEO
[2021-01-01 16:19] LABS: Glucose,Whole Blood 444 mg/dL (75-99)
[2021-01-01] MEDS ORDERED: INSULIN REGULAR BOLUS (FROM DRIP BAG) IV ONE ×2 (16:51→17:00)
[2021-01-01 17:34] LABS: Glucose,Whole Blood 372 mg/dL (75-99)
[2021-01-01] MEDS: INSULIN REGULAR 100 UNIT in SODIUM CHLORIDE 0.9% 100 ML IV SCH ×2 (17:38→21:18)
[2021-01-01 19:05] LABS: Glucose,Whole Blood 336 mg/dL (75-99)
[2021-01-01 19:35] LABS: Glucose,Whole Blood 360 mg/dL (75-99)
[2021-01-01 20:12] LABS: Glucose,Whole Blood 441 mg/dL (75-99)
[2021-01-01 20:39] LABS: Glucose,Whole Blood 274 mg/dL (75-99)
[2021-01-01 21:13] LABS: Glucose,Whole Blood 229 mg/dL (75-99)
[2021-01-01 21:40] LABS: Glucose,Whole Blood 207 mg/dL (75-99)
[2021-01-01] MEDS: MONTELUKAST 10 MG TAB PO SCH (21:59)
[2021-01-01] MEDS: ASPIRIN 81 MG PO SCH (21:59)
[2021-01-01 23:57] LABS: Glucose,Whole Blood 168 mg/dL (75-99)
[2021-01-02] MEDS: methylPREDNISolone SOD SUCCI 40 MG/ML 1 ML VIAL IV SCH ×2 (00:40→10:57)
[2021-01-02 01:33] LABS: Glucose,Whole Blood 149 mg/dL (75-99)
[2021-01-02] MEDS: ACETAMINOPHEN TAB 500 MG TAB PO SCH ×4 (01:51→21:17)
[2021-01-02 03:32] LABS: Glucose,Whole Blood 164 mg/dL (75-99)
[2021-01-02] MEDS ORDERED: VANCOMYCIN TROUGH DUE 1 EACH MISC MISCELLANE ONE (05:00)
[2021-01-02] MEDS: KETOROLAC 15 MG/ML 1 ML VIAL IVP SCH ×4 (05:11→22:52)
[2021-01-02 05:24] LABS: Glucose,Whole Blood 147 mg/dL (75-99)
--- NOTE | 2021-01-02 06:34 | PN ---
PROGRESS NOTE The patient is a 65-year-old, status post lumbar laminectomy. Breathing better saturating in the high 90s on room air. Cardiovascular S1, S2. Lungs clear. GI is soft. Hematology negative Homans. ASSESSMENT: 1. Status post lumbar laminectomy. 2. Chronic obstructive pulmonary disease. 3. Hypertension. 4. Neuropathy. Continue current treatment. PT OT. Possibly go to rehab at [facility] tomorrow. MMODL / IJN: [id number] /
[2021-01-02 06:55] LABS: Glucose,Whole Blood 187 mg/dL (75-99)
[2021-01-02] MEDS: IPRATROPIUM-ALBUTEROL 3 ML NEB INHALATION SCH ×4 (07:16→21:17)
[2021-01-02 07:44] LABS: Glucose,Whole Blood 199 mg/dL (75-99)
[2021-01-02 08:56] LABS: Glucose,Whole Blood 187 mg/dL (75-99)
--- NOTE | 2021-01-02 09:26 | P.PN ---
Subjective Principal diagnosis: L3-L5 stenosis; L3-L4 disc hernation; L4-L5 disc herniation Spondylosis L3-S1 Patient seen at bedside this morning. Patient is lying semirecumbent in bed. Patient has SCDs on bilaterally. Patient not on any O2 this morning. Patient says she is feeling nauseous this morning. She says she did have bowel movement about 5:30 this morning. She says she is regaining some strength in her lower legs. She says the numbness/tingling is getting better and both legs and she is happy because she is able to move her left foot with minimal numbness/tingling. Patient denies chest pain, fever, shortness of breath, nausea, vomiting, loss of bowel control. Objective - Vital Signs Vital signs: Vital Signs Temp 98.0 F 01/02/21 08:18 Pulse 111 H 01/02/21 08:18 Resp 17 01/02/21 08:18 BP 141/78 01/02/21 08:18 Pulse Ox 97 01/02/21 08:18 Intake & Output 01/01/21 01/02/21 01/02/21 18:59 06:59 18:59 Intake Total 111.806 5.976 Output Total 1600 1350 Balance -1600 -1238.194 5.976 Intake: Intake, IV Titration 111.806 5.976 Amount Insulin Regular 100 unit 111.806 5.976 In Sodium Chloride 0.9% 100 ml @ Titrate IV .Q0M [facility] Rx#:[id number] Output: Urine 1600 1350 Other: Voiding Method Indwelling Catheter Indwelling Catheter # Voids 0 - Exam Patient able to wiggle toes bilaterally. Dressing is clean, dry, intact. Patient is able to elevate right leg off bed about 25. Patient is able to elevate left leg off bed about 10. Sensation is symmetric, equal and intact bilaterally in lower extremities. Negative Homans bilaterally. Negative Seth's bilaterally. Negative clonus upon dorsiflexing feet bilaterally. DP pulses intact, 2+. - Labs CBC & Chem 7: 12/31/20 06:46 01/02/21 05:59 Labs: Abnormal Lab Results - Last 24 Hours (Table) 01/01/21 01/01/21 01/01/21 Range/Units 10:24 11:25 16:11 Creatinine (0.52-1.04) mg/dL POC Glucose (mg/dL) 241 H 248 H 444 H (75-99) mg/dL 01/01/21 01/01/21 01/01/21 Range/Units 17:32 19:03 19:33 Creatinine (0.52-1.04) mg/dL POC Glucose (mg/dL) 372 H 336 H 360 H (75-99) mg/dL 01/01/21 01/01/21 01/01/21 Range/Units 20:10 20:36 21:10 Creatinine (0.52-1.04) mg/dL POC Glucose (mg/dL) 441 H 274 H 229 H (75-99) mg/dL 01/01/21 01/01/21 01/02/21 Range/Units 21:37 23:55 01:31 Creatinine (0.52-1.04) mg/dL POC Glucose (mg/dL) 207 H 168 H 149 H (75-99) mg/dL 01/02/21 01/02/21 01/02/21 Range/Units 03:31 05:22 05:59 Creatinine 1.75 H (0.52-1.04) mg/dL POC Glucose (mg/dL) 164 H 147 H (75-99) mg/dL 01/02/21 01/02/21 Range/Units 06:41 07:43 Creatinine (0.52-1.04) mg/dL POC Glucose (mg/dL) 187 H 199 H (75-99) mg/dL Assessment and Plan Assessment: Postoperative day #3 1. L3-L5 stenosis; L3-L4 disc hernation; L4-L5 disc herniation 2. Spondylosis L3-S1 Plan: 1. L3-L5 stenosis; L3-L4 disc hernation; L4-L5 disc herniation; Spondylosis L3- S1 - surgery performed 12/30/2020. Bilateral laminectomy with partial medial facetectomy and foraminotomy, L3 to L5. Microdiscectomy L3 to L4 and L4- L5. Patient stable this morning. numbness/tingling in legs is resolving. Planning to discharge to [facility] today 2. Appreciate medical management 3. Pain management - stable at this time. Going to [facility] with Gabapentin, Flexeril, Oxycodone. 4. GI ppx - going to rehab with [facility] 5. PT/OT - weightbearing as tolerated with assistance needed 6. Encourage incentive spirometer use 7. Discharge planning - planning to discharge to [facility] rehab today. Time with Patient: Less than 30
[2021-01-02] MEDS: INSULIN ASPART (NovoLOG) 100 UNIT/ML VIAL SQ SCH ×4 (09:37→21:19)
[2021-01-02] MEDS: LACTATED RINGERS 1,000 ML IV SCH (09:37)
[2021-01-02] MEDS: VANCOMYCIN 1,500 MG in SODIUM CHLORIDE 0.9% 250 ML IVPB SCH (09:41)
[2021-01-02] MEDS: TAMSULOSIN 0.4 MG CAP.ER.24H PO SCH (10:13)
[2021-01-02] MEDS: GABAPENTIN 300 MG CAP PO SCH ×3 (10:14→21:18)
[2021-01-02] MEDS: BUMETANIDE 0.5 MG TABLET PO SCH (10:16)
[2021-01-02] MEDS: POTASSIUM CHLORIDE ER 10 MEQ TAB.ER.PRT PO SCH (10:17)
[2021-01-02] MEDS: LOSARTAN 50 MG TAB PO SCH (10:20)
--- NOTE | 2021-01-02 10:23 | P.DS ---
Providers Date of admission: 12/31/20 14:45 Expected date of discharge: 01/02/21 Attending physician: Vikram Alvarez, Consults: 12/30/20 14:23 Consult Physician Routine Consulting Provider: Tavo Lisa Reason/Comments: medical management Do you want consulting provider notified?: Yes 01/01/21 09:32 Consult Physician Routine Consulting Provider: Dion Cervantes Consult Reason/Comments: urinary retention Do you want consulting provider notified?: Yes Primary care physician: Tavo Lisa [facility] Course: Date of admission: 11/30/2020 Date of discharge: 12/03/2020 Admission diagnosis: L3-L5 stenosis; L3-L4 disc hernation; L4-L5 disc herniation Spondylosis L3-S1 Discharge diagnosis: Same Attending physician: Dr. Alvarez Surgical procedures: Bilateral laminectomy with partial medial facetectomy and foraminotomy, L3 to L5. Microdiscectomy L3 to L4 and L4-L5 Brief history: Patient is a 65-year-old female with a history of chronic back pain, bilateral leg weakness, radiculopathy. At this point patient has failed conservative treatment measures and has opted to proceed with a elective Bilateral laminectomy with partial medial facetectomy and foraminotomy, L3 to L5. Microdiscectomy L3 to L4 and L4-L5. Hospital course: Details of patient's surgery can be found in operative report. Patient tolerated the procedure well and was subsequently transported to orthopedic floor. Patient's orthopeidc and medical care was provided daily. Patient had daily laboratory tests performed for evaluation of overall blood counts. Patient had daily physical therapy to include strengthening range of motion as well as education with walker ambulation. Patient was noted to have a relatively uneventful postoperative course. Patient reported satisfactory pain control with oral pain medications by postoperative day 3. Patient showed satisfactory progress with physical therapy. Patient moved steadily through the program and had no difficulty meeting the goals by postoperative day 3. Given patient's otherwise satisfactory course and having met physical therapy goals, plan is to discharge patient to [facility] rehab on postoperative day 3. Discharge condition/disposition: Patient will be discharged to [facility] rehab in stable condition. Discharge medications: Instructions are given on resumption of patient's normal daily medications per primary care recommendation, in addition patient will be prescribed gabapentin; senna; Flexeril; oxycodone. Spine Discharge and Recovery Instructions Medications: See medication list All medication refills should be obtained through your primary care doctor or your clinic spine surgeon. Please discuss prescription refills at your follow up appointment. Do not call the hospital for medication refills. Dressing: Leave your dressing in place for a total of 5 days post operatively. Then you may remove your dressing and leave open to air. Keep the area clean and if not able to keep area clean, then cover with sterile gauze and tape. Showering: You may shower 3 days after your procedure allowing soap and water to run over incision. Do not scrub. Do not soak. Blot dry. Follow up: Please confirm a follow up appointment with your surgeon 3 weeks post operative ly. Please make an appointment to follow up with your PCP in 1-2 weeks after surgery for evaluation 3 phase, 3-week plan POST OP WEEKS 1-3 1. Lifting/carrying/pushing/pulling limited to less than 5 pounds. 2. Do not sit for longer than 15 minutes at one time. Get up and walk around. Prolonged sitting is NOT advised. If you lay down, see if you can tolerate laying down on you front (belly side) 3. Walk for periods of 15 minutes = 1 mile but no longer; do it multiple times times each day. 4. Ice your low back after activity. POST OP WEEKS 3-6 1. Lifting limited to less than 20 pounds. 2. Do not sit for longer than 30 minutes at a time. Frequently change positions. Use a sit-to stand workstation or take frequent breaks from sitting if you have returned to work. 3. Walk for 30 minutes each day. If possible, do these three or more times a day POST OP WEEKS 6+ At your 6-week appointment we will give you a physical therapy referral to focus on a core stabilization and strengthening program. You should also work on leg & buttock strengthening, hamstring & quadriceps stretching, and continue a low impact aerobic activity program such as swimming, walking, or riding a stationary bicycle. During the initial 6 weeks after your surgery, you are at the highest risk of re-injuring your spine. You should generally avoid BLTs (bending, lifting and twisting combination motions) and follow the above guidelines to reduce the chance of reinjury. You can anticipate post op appointments in our office at approximately 3 weeks and 6 weeks after your surgery. INCISION CARE: If your incision is not draining you do NOT need to cover it with a dressing. Keep your incision clean, dry and intact. In most cases, we apply skin glue, gemma or sutures to the incision at the time of surgery. This will be like a crust or have the appearance of a scab and will fall off in time on its own. The stitches or gemma need to be removed at 3 weeks post op appointment. You may begin to shower 3 days after surgery (this allows the glue to elizabeth well). However, please avoid scrubbing the incision site or peeling off any of the skin glue. This will ensure optimal healing of your incision. Also, during this time avoid soaking the incision area in water - this includes swimming pools, hot tubs or baths. No ointments, lotions or oils on the incision until your surgeon allows. Leave gemma, sutures or glue in place. Neurological dysfunction that comes on suddenly can also be a sign of a stroke. Below some common symptoms of a stroke are listed: B - balance difficulty such as sudden onset walking or leaning to one side - NEW E - eye problem such as sudden double vision or trouble seeing on one side - NEW F - Facial weakness or numbness on one side - NEW A - Arm or leg weakness or numbness on one side - NEW S - Slurred speech or difficulty with word finding - NEW T - Time is BRAIN! Call 911 as soon as you recognize these symptoms Diet: Consume a regular diet rich in vegetables and lean protein such as chicken or fish. You should consume in a ratio of approximately 20% fats|40% carbohydrates|40%protein. Vegetables, sweet potatoes, brown rice or quinoa are examples of good carbohydrates. Chips, white bread, cookies and sweets/sugar are examples of bad carbohydrates. Limit your bad carbs, go wild with good carbs. "Life's Simple 7" Guidelines as per [place] [employer] These will help you reclaim your life after surgery and overhauler helper in your recovery, keeping in mind your restrictions. (1) Get Active. Physical activity can help people lose weight, control high b lood pressure and cholesterol, feel emotionally better, and sleep better. (2) Control Cholesterol. Avoid a diet high in saturated fat, trans fat, & cholesterol. Limit whole milk & cream, ice cream, butter, egg yolks, processed meats (like sausage and hot dogs), and fatty meats. Choose healthy foods that are low in saturated fat, trans fat and cholesterol which include: Fruits and vegetables, fiber rich grain products (like whole grain pasta and brown rice), lean meat such as chicken, fish, nuts, seeds, and legumes. (3) Eat Better. Eat small portions. Shop at the grocery with a list and do not stray from it. Tips for a healthy diet include: Limit sodium intake to less than 1500mg daily, avoid prepackaged, processed, and fast foods, choose a diet rich in fruits, vegetables, and whole grain, high fiber foods, and limit saturated & cholesterol in your diet. (4) Manage Blood Pressure. If you have high blood pressure, you should have a cuff at home so that you can check your blood pressure regularly. Be sure you have a good cuff. An arm one is generally better than a wrist one. Bring the cuff to a doctor's appointment to validate that the measurements that your cuff are taking are accurate. Take your blood pressure twice daily when you are sitting down and relaxing. Record the numbers in a log and bring this log with you to your doctors' appointments. (5) Lose Weight if your BMI is above 25. A healthy BMI is between 19-25. To calculate Your BMI, you may use a Standard BMI Calculator on the NIH BMI website: <www.nhlbi.nih.gov/guidelines/obesity/BMI/bmicalc.htm>. Weigh oneself daily. If you are overweight, set a goal to lose weight. A pound a week loss if needed is a good target. (6) Reduce Blood Sugar. Limit foods and liquids with "added sugars." (Added sugars include sucrose, fructose, glucose, maltose, dextrose, high fructose corn syrup, corn syrup, concentrated fruit juice and honey). (7) Stop Smoking. If you smoke, quitting smoking is one of the best things that you can do for your health. Smoking increases your risk of heart attack, stroke, and peripheral vascular disease, which is a build-up of plaque in your arteries. Please discard all the cigarettes and lighters in your house. Have a plan for what you will do when you have the urge to smoke. Direct and second- hand smoke shortens your life as well as the lives of your family, friends and others around you. For your health and the health of those around you, please consider quitting! Proper Bending Body Mechanics: Maintain a wide stance with one foot slightly in front of the other. Keep your back straight. Bend utilizing the strength in your hips and knees. Do not bend at the waist. Maintain the lifted object at your waist-level close to your body. Avoid lifting weight that causes immediately pain or pain anywhere in the body afterwards. Smoking/Nicotine If there was ever one thing that you could do to increase your overall health, decrease your risk of cardiovascular problems by about 39% the second you make the choice, it is to STOP SMOKING. Your body's most instant gratification is the second you stop smoking. We have all heard the studies, read the articles but it is true, smoking is extremely bad for your overall health, and moreover it is detrimental to your bone health. Nicotine, IN ANY FORM, kills bone cells, prevents your body from healing fractures, and significantly prolongs healing after surgery. In spine surgery specifically, it increases your risk of not healing your bones to create a fusion and increases your risk of having a revision surgery due to this up to 60%. I know it is hard. I know it feels impossible. But there are ways. Take control of your life. We are here to help you through it. And when you are ready, ask us and we can direct you to help if you desire. Use the START Plan to Quit Smoking (please visit the Helpguide.org website listed below for more information): S = Set a quit date. Choose a date within the next 2 weeks, so you have enough time to prepare without losing your motivation to quit. If you mainly smoke at work, quit on the weekend, so you have a few days to adjust to the change. T = Tell family, friends, and co-workers that you plan to quit. Let your friends and family in on your plan to quit smoking and tell them you need their support and encouragement to stop. Look for a quit raffi who wants to stop smoking as well. You can help each other get through the rough times. A = Anticipate and plan for the challenges you'll face while quitting. Most people who begin smoking again do so within the first 3 months. You can help yourself make it through by preparing ahead for common challenges, such as nicotine withdrawal and cigarette cravings. R = Remove cigarettes and other tobacco products from your home, car, and work. Throw away all your cigarettes (no emergency pack!), lighters, ashtrays, and matches. Wash your clothes and freshen up anything that smells like smoke. Shampoo your car, clean your drapes and carpet, and steam your furniture. T = Talk to your doctor about getting help to quit. Your doctor can prescribe medication to help with withdrawal and suggest other alternatives. If you can't see a doctor, you can get many products over the counter at your local pharmacy or grocery store, including the nicotine patch, nicotine lozenges, and nicotine gum. Resources for Quitting Smoking: <https://www.[place].gov/document s/[facility]/Quit_Tobacco_Resources_for_patients_313480_7.pdf> Supplementation: Take recommended dosages of Vitamin D and Calcium to help fortify your bones and help them to heal. See your health maintenance packet for dosages and recommended levels. DVT/VTE prophylaxis: You will be given compression stockings from the hospital. Wear these daily for the first two weeks after surgery. You may take them off at night. You may be prescribed a medication to help thin your blood. Take this as directed. If you are not prescribed this medication, early and frequent ambulation has been shown to be the best prophylaxis to deep vein thrombosis and sequelae related to this event. Assessment: 1. L3-L5 stenosis; L3-L4 disc hernation; L4-L5 disc herniation 2. Spondylosis L3-S1 Procedures: Bilateral laminectomy with partial medial facetectomy and foraminotomy, L3 to L5. Microdiscectomy L3 to L4 and L4-L5 Patient Condition at Discharge: Good Plan - Discharge Summary Discharge Rx Participant: No New Discharge Prescriptions: No Action traMADol HCL [Ultram] 50 mg PO BID Losartan [Cozaar] 50 mg PO DAILY Montelukast [Singulair] 10 mg PO HS Glimepiride [Amaryl] 1 mg PO BID Loratadine 10 mg PO DAILY PRN PRN Reason: Allergy Symptoms Gabapentin [Neurontin] 300 mg PO HS HYDROcodone/APAP 5-325MG [[place] 5-325] 1 tab PO BID PRN PRN Reason: Pain Bumetanide [BUMEX] 0.5 mg PO DAILY Potassium Chloride [K-Tab ER] 8 meq PO DAILY Aspirin EC [Ecotrin Low Dose] 81 mg PO HS Discharge Medication List traMADol HCL [Ultram] 50 mg PO BID 09/07/18 [History] Losartan [Cozaar] 50 mg PO DAILY 07/16/19 [History] Glimepiride [Amaryl] 1 mg PO BID 10/17/20 [History] HYDROcodone/APAP 5-325MG [[place] 5-325] 1 tab PO BID PRN 10/17/20 [History] Montelukast [Singulair] 10 mg PO HS 10/17/20 [History] Loratadine 10 mg PO DAILY PRN 11/19/20 [History] Aspirin EC [Ecotrin Low Dose] 81 mg PO HS 12/29/20 [History] Bumetanide [BUMEX] 0.5 mg PO DAILY 12/29/20 [History] Gabapentin [Neurontin] 300 mg PO HS 12/29/20 [History] Potassium Chloride [K-Tab ER] 8 meq PO DAILY 12/29/20 [History] Follow up Appointment(s)/Referral(s): Vikram Alvarez DO [Doctor of Osteopathic Medicine] - 2 Weeks Activity/Diet/Wound Care/Special Instructions: Spine Discharge and Recovery Instructions Date of Surgery:12/30/2020 Diagnosis: 1. L3-L5 stenosis; L3-L4 disc hernation; L4-L5 disc herniation 2. Spondylosis L3-S1 Procedure: Bilateral laminectomy with partial medial facetectomy and foraminotomy, L3 to L5. Microdiscectomy L3 to L4 and L4-L5 Medications: See medication list All medication refills should be obtained through your primary care doctor or your clinic spine surgeon. Please discuss prescription refills at your follow up appointment. Do not call the hospital for medication refills. Dressing: Leave your dressing in place for a total of 5 days post operatively. Then you may remove your dressing and leave open to air. Keep the area clean and if not able to keep area clean, then cover with sterile gauze and tape. Showering: You may shower 3 days after your procedure allowing soap and water to run over incision. Do not scrub. Do not soak. Blot dry. Follow up: Please confirm a follow up appointment with your surgeon 3 weeks post operatively. Please make an appointment to follow up with your PCP in 1-2 weeks after surgery for evaluation 3 phase, 3-week plan POST OP WEEKS 1-3 1. Lifting/carrying/pushing/pulling limited to less than 5 pounds. 2. Do not sit for longer than 15 minutes at one time. Get up and walk around. Prolonged sitting is NOT advised. If you lay down, see if you can tolerate laying down on you front (belly side) 3. Walk for periods of 15 minutes = 1 mile but no longer; do it multiple times times each day. 4. Ice your low back after activity. POST OP WEEKS 3-6 1. Lifting limited to less than 20 pounds. 2. Do not sit for longer than 30 minutes at a time. Frequently change positions. Use a sit-to stand workstation or take frequent breaks from sitting if you have returned to work. 3. Walk for 30 minutes each day. If possible, do these three or more times a day POST OP WEEKS 6+ At your 6-week appointment we will give you a physical therapy referral to focus on a core stabilization and strengthening program. You should also work on leg & buttock strengthening, hamstring & quadriceps stretching, and continue a low impact aerobic activity program such as swimming, walking, or riding a stationary bicycle. During the initial 6 weeks after your surgery, you are at the highest risk of re-injuring your spine. You should generally avoid BLTs (bending, lifting and twisting combination motions) and follow the above guidelines to reduce the chance of reinjury. You can anticipate post op appointments in our office at approximately 3 weeks and 6 weeks after your surgery. INCISION CARE: If your incision is not draining you do NOT need to cover it with a dressing. Keep your incision clean, dry and intact. In most cases, we apply skin glue, gemma or sutures to the incision at the time of surgery. This will be like a crust or have the appearance of a scab and will fall off in time on its own. The stitches or gemma need to be removed at 3 weeks post op appointment. You may begin to shower 3 days after surgery (this allows the glue to elizabeth well). However, please avoid scrubbing the incision site or peeling off any of the skin glue. This will ensure optimal healing of your incision. Also, during this time avoid soaking the incision area in water - this includes swimming pools, hot tubs or baths. No ointments, lotions or oils on the incision until your surgeon allows. Leave gemma, sutures or glue in place. Neurological dysfunction that comes on suddenly can also be a sign of a stroke. Below some common symptoms of a stroke are listed: B - balance difficulty such as sudden onset walking or leaning to one side - NEW E - eye problem such as sudden double vision or trouble seeing on one side - NEW F - Facial weakness or numbness on one side - NEW A - Arm or leg weakness or numbness on one side - NEW S - Slurred speech or difficulty with word finding - NEW T - Time is BRAIN! Call 911 as soon as you recognize these symptoms Diet: Consume a regular diet rich in vegetables and lean protein such as chicken or fish. You should consume in a ratio of approximately 20% fats|40% carbohydrates|40%protein. Vegetables, sweet potatoes, brown rice or quinoa are examples of good carbohydrates. Chips, white bread, cookies and sweets/sugar are examples of bad carbohydrates. Limit your bad carbs, go wild with good carbs. "Life's Simple 7" Guidelines as per [place] [employer] These will help you reclaim your life after surgery and overhauler helper in your recovery, keeping in mind your restrictions. (1) Get Active. Physical activity can help people lose weight, control high blood pressure and cholesterol, feel emotionally better, and sleep better. (2) Control Cholesterol. Avoid a diet high in saturated fat, trans fat, & cholesterol. Limit whole milk & cream, ice cream, butter, egg yolks, processed meats (like sausage and hot dogs), and fatty meats. Choose healthy foods that are low in saturated fat, trans fat and cholesterol which include: Fruits and vegetables, fiber rich grain products (like whole grain pasta and brown rice), lean meat such as chicken, fish, nuts, seeds, and legumes. (3) Eat Better. Eat small portions. Shop at the grocery with a list and do not stray from it. Tips for a healthy diet include: Limit sodium intake to less than 1500mg daily, avoid prepackaged, processed, and fast foods, choose a diet rich in fruits, vegetables, and whole grain, high fiber foods, and limit saturated & cholesterol in your diet. (4) Manage Blood Pressure. If you have high blood pressure, you should have a cuff at home so that you can check your blood pressure regularly. Be sure you have a good cuff. An arm one is generally better than a wrist one. Bring the cuff to a doctor's appointment to validate that the measurements that your cuff are taking are accurate. Take your blood pressure twice daily when you are sitting down and relaxing. Record the numbers in a log and bring this log with you to your doctors' appointments. (5) Lose Weight if your BMI is above 25. A healthy BMI is between 19-25. To calculate Your BMI, you may use a Standard BMI Calculator on the NIH BMI website: <www.nhlbi.nih.gov/guidelines/obesity/BMI/bmicalc.htm>. Weigh oneself daily. If you are overweight, set a goal to lose weight. A pound a week loss if needed is a good target. (6) Reduce Blood Sugar. Limit foods and liquids with "added sugars." (Added sugars include sucrose, fructose, glucose, maltose, dextrose, high fructose corn syrup, corn syrup, concentrated fruit juice and honey). (7) Stop Smoking. If you smoke, quitting smoking is one of the best things that you can do for your health. Smoking increases your risk of heart attack, stroke, and peripheral vascular disease, which is a build-up of plaque in your arteries. Please discard all the cigarettes and lighters in your house. Have a plan for what you will do when you have the urge to smoke. Direct and second- hand smoke shortens your life as well as the lives of your family, friends and o thers around you. For your health and the health of those around you, please consider quitting! Proper Bending Body Mechanics: Maintain a wide stance with one foot slightly in front of the other. Keep your back straight. Bend utilizing the strength in your hips and knees. Do not bend at the waist. Maintain the lifted object at your waist-level close to your body. Avoid lifting weight that causes immediately pain or pain anywhere in the body afterwards. Smoking/Nicotine If there was ever one thing that you could do to increase your overall health, decrease your risk of cardiovascular problems by about 39% the second you make the choice, it is to STOP SMOKING. Your body's most instant gratification is the second you stop smoking. We have all heard the studies, read the articles but it is true, smoking is extremely bad for your overall health, and moreover it is detrimental to your bone health. Nicotine, IN ANY FORM, kills bone cells, prevents your body from healing fractures, and significantly prolongs healing after surgery. In spine surgery specifically, it increases your risk of not healing your bones to create a fusion and increases your risk of having a revision surgery due to this up to 60%. I know it is hard. I know it feels impossible. But there are ways. Take control of your life. We are here to help you through it. And when you are ready, ask us and we can direct you to help if you desire. Use the START Plan to Quit Smoking (please visit the Helpguide.org website listed below for more information): S = Set a quit date. Choose a date within the next 2 weeks, so you have enough time to prepare without losing your motivation to quit. If you mainly smoke at work, quit on the weekend, so you have a few days to adjust to the change. T = Tell family, friends, and co-workers that you plan to quit. Let your friends and family in on your plan to quit smoking and tell them you need their support and encouragement to stop. Look for a quit raffi who wants to stop smoking as well. You can help each other get through the rough times. A = Anticipate and plan for the challenges you'll face while quitting. Most people who begin smoking again do so within the first 3 months. You can help yourself make it through by preparing ahead for common challenges, such as nicotine withdrawal and cigarette cravings. R = Remove cigarettes and other tobacco products from your home, car, and work. Throw away all your cigarettes (no emergency pack!), lighters, ashtrays, and matches. Wash your clothes and freshen up anything that smells like smoke. Shampoo your car, clean your drapes and carpet, and steam your furniture. T = Talk to your doctor about getting help to quit. Your doctor can prescribe medication to help with withdrawal and suggest other alternatives. If you can't see a doctor, you can get many products over the counter at your local pharmacy or grocery store, including the nicotine patch, nicotine lozenges, and nicotine gum. Resources for Quitting Smoking: <https://www.[place].gov/documents/[facility]/Quit_Tobacco_Resources_for_ patients_313480_7.pdf> Supplementation: Take recommended dosages of Vitamin D and Calcium to help fortify your bones and help them to heal. See your health maintenance packet for dosages and recommended levels. DVT/VTE prophylaxis: You will be given compression stockings from the hospital. Wear these daily for the first two weeks after surgery. You may take them off at night. You may be prescribed a medication to help thin your blood. Take this as directed. If you are not prescribed this medication, early and frequent ambulation has been shown to be the best prophylaxis to deep vein thrombosis and sequelae related to this event. Discharge Disposition: TRANSFER TO SNF/ECF
[2021-01-02 10:59] LABS: Glucose,Whole Blood 172 mg/dL (75-99)
[2021-01-02 13:41] LABS: Glucose,Whole Blood 161 mg/dL (75-99)
[2021-01-02 15:33] LABS: Glucose,Whole Blood 242 mg/dL (75-99)
[2021-01-02] MEDS: 0.9% NACL WITH KCL 20 MEQ/L 1,000 ML IV SCH ×2 (15:46→16:24)
[2021-01-02 16:41] LABS: Glucose,Whole Blood 230 mg/dL (75-99)
[2021-01-02] MEDS ORDERED: VANCOMYCIN 1,500 MG in SODIUM CHLORIDE 0.9% 250 ML IVPB SCH (18:00)
[2021-01-02 20:39] LABS: Glucose,Whole Blood 278 mg/dL (75-99)
[2021-01-02] MEDS: MONTELUKAST 10 MG TAB PO SCH (21:17)
[2021-01-02] MEDS: ASPIRIN 81 MG PO SCH (21:18)
[2021-01-03] MEDS: ACETAMINOPHEN TAB 500 MG TAB PO SCH ×3 (02:28→13:20)
[2021-01-03] MEDS: LACTATED RINGERS 1,000 ML IV SCH (06:01)
[2021-01-03] MEDS: KETOROLAC 15 MG/ML 1 ML VIAL IVP SCH ×2 (06:02→10:00)
--- NOTE | 2021-01-03 06:47 | PN ---
PROGRESS NOTE This is a 65-year-old white female with abdominal pain, possible constipation. Weaned off the insulin drip. Accu-Chek protocol. Get her off steroids which raised her sugar. She is status post lumbar laminectomy. Wait for [place] tomorrow. Cardiovascular S1-S2. Lungs are clear. GI is diffuse tenderness, mild. Hematologic negative Homans. ASSESSMENT: 1. Chronic obstructive pulmonary disease. 2. Status post lumbar laminectomy. 3. Hypertension. 4. . Continue current treatments. Possible rehab placement tomorrow. MMODL / IJN: [id number] /
[2021-01-03 06:55] LABS: Glucose,Whole Blood 141 mg/dL (75-99)
[2021-01-03 07:57] VITALS: BP 166/87; RESP 20; TEMP 98.6
[2021-01-03] MEDS: INSULIN ASPART (NovoLOG) 100 UNIT/ML VIAL SQ SCH ×2 (08:07→12:25)
[2021-01-03] MEDS: LOSARTAN 50 MG TAB PO SCH (08:07)
[2021-01-03] MEDS: BUMETANIDE 0.5 MG TABLET PO SCH (08:07)
[2021-01-03] MEDS: POTASSIUM CHLORIDE ER 10 MEQ TAB.ER.PRT PO SCH (08:07)
[2021-01-03] MEDS: 0.9% NACL WITH KCL 20 MEQ/L 1,000 ML IV SCH (08:07)
[2021-01-03] MEDS: TAMSULOSIN 0.4 MG CAP.ER.24H PO SCH (08:07)
[2021-01-03] MEDS: GABAPENTIN 300 MG CAP PO SCH (08:07)
[2021-01-03] MEDS: IPRATROPIUM-ALBUTEROL 3 ML NEB INHALATION SCH ×2 (08:49→12:32)
--- NOTE | 2021-01-03 10:48 | P.PN ---
Progress Note - Text Progress Note Date: 01/03/21 Patient seen and examined doing well no issues on discharge paperwork has been done and she was just waiting on a cobra test in the bed for her rehab. They plan on getting her there today. She is ready to go. She has been up in the chair walking however with much assistance her left lower extremity is still slightly weak however she is able to move in dorsiflexion plantar flexion EHL FHL hip flexion extension E flexion-extension without really any issues is just slightly weak at this time. She states that the pain in her left lower extremity is much better than it used to be. Her incision is clean dry and intact her dressing can be removed and reinforced as needed. Would favor bharat devora in 2 days anyways. Her medications as well as discharge instructions are completed. She is orthopedically stable for discharge to [facility].
[2021-01-03 11:30] LABS: Glucose,Whole Blood 145 mg/dL (75-99)
--- NOTE | 2021-01-03 11:55 | P.GSCN ---
History of Present Illness Consult date: 01/03/21 Reason for Consult: Postop urinary retention Requesting physician: Vikram Alvarez History of present illness: The patient is a 65-year-old white female who underwent a L3-5 decompressive laminectomy on 12/30/2020. Postoperative postvoid residuals were elevated, so a Pete catheter was placed with return of 525 mL. I am consulted for this reason. The patient is a vague historian. She underwent ESWL for a kidney stone many years ago. She states that she was treated for her first UTI approximately 3 weeks ago. She reports preoperatively not being able to determine when she needs to void. She was also experiencing urge incontinence. She denied nocturia and nocturnal enuresis. Review of Systems - Constitutional Denies chills, Denies fever - Genitourinary Genitourinary: Reports as per HPI Past Medical History Past Medical History: Asthma, Coronary Artery Disease (CAD), COPD, Diabetes Mellitus, Deep Vein Thrombosis (DVT), GERD/Reflux, Hyperlipidemia, Hypertension, Musculoskeletal Disorder, Osteoarthritis (OA), Renal Disease, Sleep Apnea/CPAP/BIPAP Additional Past Medical History / Comment(s): PUD, colitis, benign colon polyps, DVT L leg, migraines, ANDREW - uses cpap. kidney stones, CKD stage II, vertigo, recurrent L ear infections/ruptured eardrum, TMJ, mild CAD, back prob - NT Lt arm, leg. Edema BLE. History of Any Multi-Drug Resistant Organisms: None Reported Past Surgical History: Appendectomy, Cholecystectomy, Ear Surgery, Heart Catheterization, Hysterectomy, Joint Replacement, Orthopedic Surgery, Tonsillectomy Additional Past Surgical History / Comment(s): R/L knee arthroscopies, L ear patch/graft, EGD, colonoscopy/polypectomy, throat abscess. Right knee replacement Past Anesthesia/Blood Transfusion Reactions: Postoperative Nausea & Vomiting (PONV) Smoking Status: Never smoker - Past Family History Father Family Medical History: Cancer Additional Family Medical History / Comment(s): Throat, brain cancer. Father was an alcoholic. Mother Family Medical History: Liver Disease Additional Family Medical History / Comment(s): Mother is . She was an alcoholic. Medications and Allergies Home Medications Medication Instructions Recorded Confirmed Type Losartan [Cozaar] 50 mg PO DAILY 07/16/19 12/30/20 History Glimepiride [Amaryl] 1 mg PO BID 10/17/20 12/30/20 History Montelukast [Singulair] 10 mg PO HS 10/17/20 12/30/20 History Loratadine 10 mg PO DAILY PRN 11/19/20 12/30/20 History Aspirin EC [Ecotrin Low Dose] 81 mg PO HS 12/29/20 12/29/20 History Bumetanide [BUMEX] 0.5 mg PO DAILY 12/29/20 12/30/20 History Gabapentin [Neurontin] 300 mg PO HS 12/29/20 12/30/20 History Potassium Chloride [K-Tab ER] 8 meq PO DAILY 12/29/20 12/30/20 History Cyclobenzaprine [Flexeril] 10 mg PO BID #30 tab 01/02/21 Rx Gabapentin 300 mg PO TID #42 cap 01/02/21 Rx Sennosides/Docusate Sodium [Senna 1 each PO DAILY #20 capsule 01/02/21 Rx Plus 8.6-50 mg Softgel] oxyCODONE HCL [OxyIR] 5 mg PO Q6H PRN #28 tab 01/02/21 Rx Allergies Allergy/AdvReac Type Severity Reaction Status Date / Time Iodinated Contrast Media Allergy Severe Anaphylaxis Verified 11/28/20 18:36 [Iodinated Contrast Media - IV Dye] iodine Allergy Anaphylaxis Verified 11/28/20 18:36 Fwexahe-Yvc-Vrr Reductase Allergy THROAT Verified 11/28/20 18:36 Inhibitor Swelling Surgical - Exam Vital Signs Temp Pulse Resp BP Pulse Ox 98.0 F 88 18 137/63 93 L 12/30/20 06:57 12/30/20 06:57 12/30/20 06:57 12/30/20 06:57 12/30/20 06:57 - General well developed, well nourished, no distress - Respiratory normal respiratory effort - Abdomen Abdomen: soft, non tender, no guarding, no rigid, no rebound - Psychiatric oriented to time, oriented to person, oriented to place, speech is normal, memory intact Results - Labs 12/31/20 06:46 01/03/21 05:28 Abnormal Lab Results - Last 24 Hours (Table) 01/02/21 01/02/21 01/02/21 Range/Units 08:53 10:57 13:38 Creatinine (0.52-1.04) mg/dL POC Glucose (mg/dL) 187 H 172 H 161 H (75-99) mg/dL 01/02/21 01/02/21 01/02/21 Range/Units 15:31 16:35 20:38 Creatinine (0.52-1.04) mg/dL POC Glucose (mg/dL) 242 H 230 H 278 H (75-99) mg/dL 01/03/21 01/03/21 Range/Units 05:28 06:48 Creatinine 1.63 H (0.52-1.04) mg/dL POC Glucose (mg/dL) 141 H (75-99) mg/dL Diabetes panel 01/03/21 Range/Units 05:28 Creatinine 1.63 H (0.52-1.04) mg/dL Pituitary panel 01/03/21 Range/Units 05:28 Creatinine 1.63 H (0.52-1.04) mg/dL Adrenal panel 01/03/21 Range/Units 05:28 Creatinine 1.63 H (0.52-1.04) mg/dL Assessment and Plan (1) Retention of urine, unspecified Current Visit: Yes Status: Acute Code(s): R33.9 - RETENTION OF URINE, UNSPECIFIED SNOMED Code(s): 705637263 Plan: Postoperative urinary retention. The patient, as stated, is a vague historian but was clearly experiencing voiding difficulty preoperatively. She is being discharged to [facility] for rehab, and I have suggested that the Pete catheter remain in place. She was given my card and was advised to contact my office when she is ambulatory to schedule urodynamic testing to evaluate her bladder function. Please notify me if I can be of any further assistance. Time with Patient: Greater than 30
[2021-01-03 12:43] VITALS: PULSE 86
== END 2021-01-03 13:36 | DRG 519 ==
LOC: OR 06:31 → 4SSUR 10:27 → OR 12-31 14:45 → 4SSUR 12-31 14:45
PROVIDERS: ADMIT Orthopaedic Surgery; ATTEND Orthopaedic Surgery
PROC: 0SB20ZZ Excision of Lumbar Vertebral Disc, Open Approach (ICD-10-PCS; principal; 2020-12-31)
DX: M51.16 Intervertebral disc disorders with radiculopathy, lumbar region (principal); Z68.41 Body mass index [BMI] 40.0-44.9, adult; E66.01 Morbid (severe) obesity due to excess calories; E11.22 Type 2 diabetes mellitus with diabetic chronic kidney disease; E11.40 Type 2 diabetes mellitus with diabetic neuropathy, unspecified; J44.9 Chronic obstructive pulmonary disease, unspecified; Z20.822 Contact with and (suspected) exposure to COVID-19; M47.26 Other spondylosis with radiculopathy, lumbar region; M48.061 Spinal stenosis, lumbar region without neurogenic claudication; M47.27 Other spondylosis with radiculopathy, lumbosacral region; E78.5 Hyperlipidemia, unspecified; I12.9 Hypertensive chronic kidney disease with stage 1 through stage 4 chronic kidney disease, or unspecified chronic kidney disease; N18.2 Chronic kidney disease, stage 2 (mild); R33.9 Retention of urine, unspecified; N39.41 Urge incontinence; G47.33 Obstructive sleep apnea (adult) (pediatric); I25.10 Atherosclerotic heart disease of native coronary artery without angina pectoris; G89.4 Chronic pain syndrome; K21.9 Gastro-esophageal reflux disease without esophagitis; M19.90 Unspecified osteoarthritis, unspecified site; M26.609 Unspecified temporomandibular joint disorder, unspecified side; Z79.82 Long term (current) use of aspirin; Z79.84 Long term (current) use of oral hypoglycemic drugs; Z79.899 Other long term (current) drug therapy; Z86.718 Personal history of other venous thrombosis and embolism; Z87.11 Personal history of peptic ulcer disease; Z86.010 Personal history of colon polyps; Z87.442 Personal history of urinary calculi; Z86.69 Personal history of other diseases of the nervous system and sense organs; Z87.820 Personal history of traumatic brain injury; Z90.49 Acquired absence of other specified parts of digestive tract; Z87.19 Personal history of other diseases of the digestive system; Z90.710 Acquired absence of both cervix and uterus; Z96.651 Presence of right artificial knee joint; Z86.59 Personal history of other mental and behavioral disorders; Z87.42 Personal history of other diseases of the female genital tract; Z87.891 Personal history of nicotine dependence; Z87.448 Personal history of other diseases of urinary system; Z87.440 Personal history of urinary (tract) infections; Z98.890 Other specified postprocedural states; Z88.8 Allergy status to other drugs, medicaments and biological substances; Z91.041 Radiographic dye allergy status; Z80.8 Family history of malignant neoplasm of other organs or systems; Z81.1 Family history of alcohol abuse and dependence; Z83.79 Family history of other diseases of the digestive system
CPT/HCPCS: 36415; 71045; 72020; 80048; 80053; 80202; 82565; 85025; 86850; 86900; 86901; 87635; 94640; 94660

== ENCOUNTER 2021-01-14 12:27 | Inpatient (IN) | payer MEDICARE, OTHER ==
[2021-01-14] MEDS ORDERED: IBUPROFEN 600 MG TAB PO STA (12:41)
[2021-01-14] MEDS ORDERED: ACETAMINOPHEN TAB 500 MG TAB PO STA (12:41)
--- NOTE | 2021-01-14 12:46 | ED ---
General Adult HPI - General Chief complaint: Back Pain/Injury Stated complaint: Post Op Complications Time Seen by Provider: 01/14/21 12:30 Source: patient, RN notes reviewed, old records reviewed Mode of arrival: ambulatory Limitations: no limitations - History of Present Illness Initial comments: This is a 65-year-old female presents emergency Department with a recent past medical history of a laminectomy about 2 weeks ago. Patient states her since his surgery she has been unable to him tonight and the pain in her back is excruciating. Patient states earlier today during physical therapy they try to get her up to walk on paralumbar the pain was so great going down her left leg she was unable to. Patient states they informed her that she would be going to the hospital because of her lack of progression and increased pain. Patient also was diagnosed yesterday with urinary tract infection. Patient denies any fever chills or she knows of. Patient denies any difficulty breathing or chest pain. Patient states she feels as though her upper extremities are also weak bilaterally even though her surgery was in the low lumbar area. - Related Data Home Medications Medication Instructions Recorded Confirmed Losartan [Cozaar] 50 mg PO DAILY@0800 07/16/19 01/14/21 Glimepiride [Amaryl] 1 mg PO BID@0800,1700 10/17/20 01/14/21 Montelukast [Singulair] 10 mg PO HS 10/17/20 01/14/21 Loratadine 10 mg PO DAILY PRN 11/19/20 01/14/21 Aspirin EC [Ecotrin Low Dose] 81 mg PO HS 12/29/20 01/14/21 Bumetanide [BUMEX] 0.5 mg PO DAILY@0800 12/29/20 01/14/21 Potassium Chloride [K-Tab ER] 8 meq PO DAILY@1700 12/29/20 01/14/21 Cyclobenzaprine [Flexeril] 10 mg PO BID@0800,1700 01/14/21 01/14/21 Gabapentin 300 mg PO TID@0600,1400,2200 01/14/21 01/14/21 Magnesium Hydroxide [Milk of 7,200 mg PO Q48H PRN 01/14/21 01/14/21 Magnesia Concentrate] Na Phos,M-B/Na Phos,Di-Ba [Fleet 133 ml RECTAL DAILY PRN 01/14/21 01/14/21 Adult] Sennosides/Docusate Sodium [Senna 1 cap PO DAILY@0800 01/14/21 01/14/21 Plus 8.6-50 mg Softgel] bisacodyL [Bisacodyl] 10 mg RECTAL DAILY PRN 01/14/21 01/14/21 oxyCODONE HCL [OxyIR] 5 mg PO Q6H PRN 01/14/21 01/14/21 Allergies Allergy/AdvReac Type Severity Reaction Status Date / Time Iodinated Contrast Media Allergy Severe Anaphylaxis Verified 01/14/21 16:23 [Iodinated Contrast Media - IV Dye] iodine Allergy Anaphylaxis Verified 01/14/21 16:23 Icmyyth-Qky-Vxa Reductase Allergy Anaphylaxis Verified 01/14/21 16:23 Inhibitor Review of Systems ROS Statement: Those systems with pertinent positive or pertinent negative responses have been documented in the HPI. ROS Other: All systems not noted in ROS Statement are negative. Past Medical History Past Medical History: Asthma, Coronary Artery Disease (CAD), COPD, Diabetes Mellitus, Deep Vein Thrombosis (DVT), GERD/Reflux, Hyperlipidemia, Hypertension, Musculoskeletal Disorder, Osteoarthritis (OA), Renal Disease, Sleep Apnea/CPAP/BIPAP Additional Past Medical History / Comment(s): PUD, colitis, benign colon polyps, DVT L leg, migraines, ANDREW - uses cpap. kidney stones, CKD stage II, vertigo, recurrent L ear infections/ruptured eardrum, TMJ, mild CAD, back prob - NT Lt arm, leg. Edema BLE. History of Any Multi-Drug Resistant Organisms: None Reported Past Surgical History: Appendectomy, Cholecystectomy, Ear Surgery, Heart Catheterization, Hysterectomy, Joint Replacement, Orthopedic Surgery, Tonsillectomy Additional Past Surgical History / Comment(s): R/L knee arthroscopies, L ear patch/graft, EGD, colonoscopy/polypectomy, throat abscess. Right knee replacement Past Anesthesia/Blood Transfusion Reactions: Postoperative Nausea & Vomiting (PONV) Past Psychological History: Anxiety Smoking Status: Never smoker Past Alcohol Use History: None Reported Past Drug Use History: None Reported - Past Family History Father Family Medical History: Cancer Additional Family Medical History / Comment(s): Throat, brain cancer. Father was an alcoholic. Mother Family Medical History: Liver Disease Additional Family Medical History / Comment(s): Mother is . She was an alcoholic. General Exam - General Exam Comments Initial Comments: GENERAL: Patient is well-developed and well-nourished. Patient is nontoxic and well- hydrated and is in moderate distress EYES: The sclera were anicteric and conjunctiva were pink and moist. Extraocular movements were intact and pupils were equal round and reactive to light. Eyelids were unremarkable. PULMONARY: Unlabored respirations. Good breath sounds bilaterally. No audible rales rhonchi or wheezing was noted. CARDIOVASCULAR: There is a regular rate and rhythm without any murmurs gallops or rubs. ABDOMEN: Soft and nontender with normal bowel sounds. No palpable organomegaly was noted. There is no palpable pulsatile mass. SKIN: Skin is clear with no lesions or rashes and otherwise unremarkable. NEUROLOGIC: Patient is alert and oriented x3. Cranial nerves II through XII are grossly intact. She was left leg was significantly weaker when trying to bend her knee or with dorsi and plantar flexion. Normal speech, volume and content. Symmetrical smile. His straight leg test was positive at about 20 on the left leg and 40 on the right leg. MUSCULOSKELETAL: Normal extremities with adequate strength and full range of motion. LYMPHATICS: No significant lymphadenopathy is noted PSYCHIATRIC: Normal psychiatric evaluation. Limitations: no limitations Course Vital Signs 01/14/21 01/14/21 01/14/21 12:30 13:09 13:30 Temperature 100.3 F H Pulse Rate 102 H 98 Respiratory 18 Rate Blood Pressure 126/71 105/66 O2 Sat by Pulse 95 91 L 96 Oximetry 01/14/21 15:30 Temperature Pulse Rate 92 Respiratory Rate Blood Pressure O2 Sat by Pulse 94 L Oximetry Medical Decision Making - Medical Decision Making EKG shows normal sinus rhythm at 96 bpm UT interval is 158 QRSs 112 QT interval 366 QTC is 462. Patient's EKG shows no ST segment elevation or depression. Dr. Alvarez came to the emergency department to see the patient he did not believe the low-grade fever was due to the surgery he felt the surgical site looked good and he did not believe the patient this point time he had any further evaluation for the recent surgery and he felt from his perspective the patient could [facility] to the [facility] Patient did have urinary tract infectious I started the patient Rocephin here also patient had a drop in hemoglobin from her last stay so I spoke with Dr. Lisa he agreed to admit the patient and the patient I followed the hemoglobin and I treated the urinary tract infection. - Lab Data Result diagrams: 01/14/21 15:44 01/14/21 15:44 Lab Results 01/14/21 01/14/21 01/14/21 Range/Units 12:54 15:44 15:44 WBC 8.1 (3.8-10.6) k/uL RBC 2.78 L (3.80-5.40) m/uL Hgb 9.1 L D (11.4-16.0) gm/dL Hct 26.2 L (34.0-46.0) % MCV 94.2 (80.0-100.0) fL MCH 32.9 (25.0-35.0) pg MCHC 34.9 (31.0-37.0) g/dL RDW 13.0 (11.5-15.5) % Plt Count 209 (150-450) k/uL MPV 8.5 Neutrophils % 66 % Lymphocytes % 20 % Monocytes % 7 % Eosinophils % 5 % Basophils % 1 % Neutrophils # 5.3 (1.3-7.7) k/uL Lymphocytes # 1.6 (1.0-4.8) k/uL Monocytes # 0.5 (0-1.0) k/uL Eosinophils # 0.4 (0-0.7) k/uL Basophils # 0.0 (0-0.2) k/uL PT (9.0-12.0) sec INR (<1.2) APTT (22.0-30.0) sec Sodium (137-145) mmol/L Potassium (3.5-5.1) mmol/L Chloride (98-107) mmol/L Carbon Dioxide (22-30) mmol/L Anion Gap mmol/L BUN (7-17) mg/dL Creatinine (0.52-1.04) mg/dL Est GFR (CKD-EPI)AfAm (>60 ml/min/1.73 sqM) Est GFR (CKD-EPI)NonAf (>60 ml/min/1.73 sqM) Glucose (74-99) mg/dL Plasma Lactic Acid Woody 0.7 (0.7-2.0) mmol/L Calcium (8.4-10.2) mg/dL Total Bilirubin (0.2-1.3) mg/dL AST (14-36) U/L ALT (4-34) U/L Alkaline Phosphatase (38-126) U/L Total Protein (6.3-8.2) g/dL Albumin (3.5-5.0) g/dL Urine Color Yellow Urine Appearance Cloudy H (Clear) Urine pH 5.5 (5.0-8.0) Ur Specific Altus 1.008 (1.001-1.035) Urine Protein Trace H (Negative) Urine Glucose (UA) Negative (Negative) Urine Ketones Negative (Negative) Urine Blood Large H (Negative) Urine Nitrite Positive H (Negative) Urine Bilirubin Negative (Negative) Urine Urobilinogen <2.0 (<2.0) mg/dL Ur Leukocyte Esterase Large H (Negative) Urine RBC 7 H (0-5) /hpf Urine WBC 64 H (0-5) /hpf Urine WBC Clumps Few H (None) /hpf Urine Bacteria Occasional H (None) /hpf Urine Mucus Rare H (None) /hpf 01/14/21 01/14/21 Range/Units 15:44 15:44 WBC (3.8-10.6) k/uL RBC (3.80-5.40) m/uL Hgb (11.4-16.0) gm/dL Hct (34.0-46.0) % MCV (80.0-100.0) fL MCH (25.0-35.0) pg MCHC (31.0-37.0) g/dL RDW (11.5-15.5) % Plt Count (150-450) k/uL MPV Neutrophils % % Lymphocytes % % Monocytes % % Eosinophils % % Basophils % % Neutrophils # (1.3-7.7) k/uL Lymphocytes # (1.0-4.8) k/uL Monocytes # (0-1.0) k/uL Eosinophils # (0-0.7) k/uL Basophils # (0-0.2) k/uL PT 11.0 (9.0-12.0) sec INR 1.0 (<1.2) APTT 25.8 (22.0-30.0) sec Sodium 134 L (137-145) mmol/L Potassium 3.7 (3.5-5.1) mmol/L Chloride 102 (98-107) mmol/L Carbon Dioxide 26 (22-30) mmol/L Anion Gap 6 mmol/L BUN 23 H (7-17) mg/dL Creatinine 1.35 H (0.52-1.04) mg/dL Est GFR (CKD-EPI)AfAm 48 (>60 ml/min/1.73 sqM) Est GFR (CKD-EPI)NonAf 41 (>60 ml/min/1.73 sqM) Glucose 117 H (74-99) mg/dL Plasma Lactic Acid Woody (0.7-2.0) mmol/L Calcium 8.9 (8.4-10.2) mg/dL Total Bilirubin 0.3 (0.2-1.3) mg/dL AST 19 (14-36) U/L ALT 15 (4-34) U/L Alkaline Phosphatase 59 (38-126) U/L Total Protein 5.6 L (6.3-8.2) g/dL Albumin 3.1 L (3.5-5.0) g/dL Urine Color Urine Appearance (Clear) Urine pH (5.0-8.0) Ur Specific Altus (1.001-1.035) Urine Protein (Negative) Urine Glucose (UA) (Negative) Urine Ketones (Negative) Urine Blood (Negative) Urine Nitrite (Negative) Urine Bilirubin (Negative) Urine Urobilinogen (<2.0) mg/dL Ur Leukocyte Esterase (Negative) Urine RBC (0-5) /hpf Urine WBC (0-5) /hpf Urine WBC Clumps (None) /hpf Urine Bacteria (None) /hpf Urine Mucus (None) /hpf Disposition Clinical Impression: Urinary tract infection, Anemia Disposition: ADMITTED IP TO THIS HOSP Referrals: Tavo Lisa MD [Primary Care Provider] - 1-2 days Time of Disposition: 16:43
[2021-01-14] MEDS: SODIUM CHLORIDE 0.9% 500 ML 500 ML IV SCH (13:21)
--- NOTE | 2021-01-14 14:16 | XR ---
EXAMINATION TYPE: XR chest 1V portable DATE OF EXAM: 01/14/2021 Comparison: 12/31/2020 Clinical History: 65-year-old female Fever Findings: Heart normal size. Aorta and pulmonary vasculature are within normal limits. Mild interstitial promin ence is unchanged. No consolidation or pleural effusion. Impression: Chronic changes. No acute cardiopulmonary process.
--- NOTE | 2021-01-14 14:55 | P.CNOR ---
History of Present Illness - HPI Consult date: 01/14/21 History of present illness: 65-year-old female presents from her care facility and subacute rehab for evaluation after adequate they state is failure to progress. Patient had a laminectomy L3 to L5 on 12/30/2020. She recovered in the hospital and then was sent to subacute rehab after this. She has been there ever since. We were message by the care facilities physician who stated that the patient was failing to move forward in her therapy that she is having upper and lower extremity weakness that she was exhibiting strokelike symptoms that she had a urinary tract infection and was uroseptic with fevers and chills. He stated at this point that he was given a sent her back to the emergency room for evaluation. The patient arrived at the emergency department was evaluated by the emergency department physicians who contacted myself. I was able to personally go and see the patient in the emergency department today. Upon evaluation the patient is lying in her bed she is comfortable at this time she states some pain in her back. She complains of pain in her left lower extremity as well. She is able to answer all questions appropriately with no evidence of any mental distortion at this time. She states that she has been doing okay over her care facility however she does not like it there. She states that they dropped her twice since she has been there. She continues to have a Pete catheter in place and she has not had her trial voids as scheduled. She states she has had several bowel movements since surgery. She denies any perineal numbness or tingling she denies any bowel or bladder incontinence at this time. She does also have a Pete she does complain of left lower extremity weakness which was present after surgery. She states that it is hard for her to move her ankle however in bed she is able to roll over or under her own power with her legs. She states no numbness or tingling in her legs but more pain it seems. Eyes any fevers or chills she denies any shortness of breath or chest pain at this time. Review of Systems 14 points review of systems completed and as stated in HPI, all other systems reviewed are negative. Past Medical History Past Medical History: Asthma, Coronary Artery Disease (CAD), COPD, Diabetes Mellitus, Deep Vein Thrombosis (DVT), GERD/Reflux, Hyperlipidemia, Hypertension, Musculoskeletal Disorder, Osteoarthritis (OA), Renal Disease, Sleep Apnea/CPAP/BIPAP Additional Past Medical History / Comment(s): PUD, colitis, benign colon polyps, DVT L leg, migraines, ANDREW - uses cpap. kidney stones, CKD stage II, vertigo, recurrent L ear infections/ruptured eardrum, TMJ, mild CAD, back prob - NT Lt arm, leg. Edema BLE. History of Any Multi-Drug Resistant Organisms: None Reported Past Surgical History: Appendectomy, Cholecystectomy, Ear Surgery, Heart Catheterization, Hysterectomy, Joint Replacement, Orthopedic Surgery, Tonsillectomy Additional Past Surgical History / Comment(s): R/L knee arthroscopies, L ear patch/graft, EGD, colonoscopy/polypectomy, throat abscess. Right knee replacement Past Anesthesia/Blood Transfusion Reactions: Postoperative Nausea & Vomiting (PONV) Past Psychological History: Anxiety Smoking Status: Never smoker Past Alcohol Use History: None Reported Past Drug Use History: None Reported - Past Family History Father Family Medical History: Cancer Additional Family Medical History / Comment(s): Throat, brain cancer. Father w as an alcoholic. Mother Family Medical History: Liver Disease Additional Family Medical History / Comment(s): Mother is . She was an alcoholic. Medications and Allergies Home Medications Medication Instructions Recorded Confirmed Type Losartan [Cozaar] 50 mg PO DAILY 07/16/19 12/30/20 History Glimepiride [Amaryl] 1 mg PO BID 10/17/20 12/30/20 History Montelukast [Singulair] 10 mg PO HS 10/17/20 12/30/20 History Loratadine 10 mg PO DAILY PRN 11/19/20 12/30/20 History Aspirin EC [Ecotrin Low Dose] 81 mg PO HS 12/29/20 12/29/20 History Bumetanide [BUMEX] 0.5 mg PO DAILY 12/29/20 12/30/20 History Gabapentin [Neurontin] 300 mg PO HS 12/29/20 12/30/20 History Potassium Chloride [K-Tab ER] 8 meq PO DAILY 12/29/20 12/30/20 History Cyclobenzaprine [Flexeril] 10 mg PO BID #30 tab 01/02/21 Rx Gabapentin 300 mg PO TID #42 cap 01/02/21 Rx Sennosides/Docusate Sodium [Senna 1 each PO DAILY #20 capsule 01/02/21 Rx Plus 8.6-50 mg Softgel] oxyCODONE HCL [OxyIR] 5 mg PO Q6H PRN #28 tab 01/02/21 Rx Allergies Allergy/AdvReac Type Severity Reaction Status Date / Time Iodinated Contrast Media Allergy Severe Anaphylaxis Verified 01/14/21 12:30 [Iodinated Contrast Media - IV Dye] iodine Allergy Anaphylaxis Verified 01/14/21 12:30 [id number]-Scb-Vwu Reductase Allergy THROAT Verified 01/14/21 12:30 Inhibitor Swelling Physical Examination Osteopathic Statement: *. No significant issues noted on an osteopathic structural exam other than those noted in the History and Physical/Consult. PHYSICAL EXAMINATION: Vitals: Stable at this time there was one record of 100.4 Fahrenheit fever General: Awake, alert, appropriate for age, in no acute distress. HEENT: No unusual neck masses around region of lateral neck triangle, thyroid, supraclavicular groove. Heart: Regular rate and rhythm, normal S1, S2 and no murmur/gallop. Lungs: Clear to auscultation bilaterally with no use of accessory muscles. Extremities: Skin warm and dry without no acute lesions, coloration, temperature, skin intact, no tenderness or erythema. Integument: Hairy patches: Absent Dorsal skin dimples: Absent Cafe au lait spots: Absent Surgical incisions: Her posterior midline lumbar incision is well-healed at this time sutures are still in place. There is no erythema or ecchymosis or edema there is no purulence there is no drainage there is no tenderness to palpation around this area. There is no evidence of infection in this area and it is well healing at this time Palpation: There is no tenderness to palpation around the incision there is no fluctuance felt. There is no tenderness to palpation of her cervical thoracic or lumbar spine midline or paralumbar at this time.] POSTURAL and MUSCULO-SKELETAL EVALUATION: Neck ROM: Unrestricted in six directions Lumbar ROM: Unrestricted in six directions Shoulder ROM: Symmetric in abduction, ER/IR Hip ROM: Symmetric in abduction, adduction, ER/IR Knee ROM: Symmetric and intact in Flexion / extension Hands: Normal appearing structure L and R Feet: Normal appearing structure L and R VASCULAR STATUS : Wrist Pulses: 2/4 bilateral radial and ulnar Pedal Pulses: 2/4 bilateral DP and PT Color: Normal Edema: None NEUROLOGIC EXAMINATION: Mental Status: Awake and alert, fully oriented, with normal attention, concentration and memory, and fluent, appropriate speech. Cranial Nerves: I: Olfactory not tested. II: Visual acuity normal, no visual field deficit noted with confrontation. III,IV: Normal pupillary reflexes & intact extraocular movements without nystagmus. V,: Intact symmetrical facial sensation. VII: Intact symmetrical facial motor movement VIII: Hearing intact. IX,X: Intact gag, swallow, & normal voice. XI: Sternocleidomastoid, trapezius function intact. XII: Tongue midline with normal movements. Special Tests: L'hermitte's Sign: Absent Spurling'Sign: Absent Bilateral Cubital percussion test: Absent Bilateral Frank-Tinel sign - Carpal region: Absent Bilateral Straight Leg Raising: Absent Bilateral Motor Exam (0-5/5, N/T) STRENGTH UPPER EXTREMITY Shoulder Abd (Not part of GERALD Motor score): RIGHT 4+ LEFT 4+ Elbow Flexors: RIGHT 4+ LEFT 4+ Elbow Extensor: RIGHT 4+ LEFT 4+ Wrrist Dorsiflexors: RIGHT 4+ LEFT 4+ Finger Abductor: RIGHT 4+ LEFT 4+ Funeral Director/Embalmer/Owner: RIGHT 4+ LEFT 4+ LOWER EXTREMITY Hip Flexor (Not part of GERALD Motor Score): RIGHT 4+ LEFT 4- Knee Flexor: RIGHT 4+ LEFT 4+ Knee Extensor: RIGHT 4+ LEFT 4- Ankle Dorsiflexion: RIGHT 4+ LEFT 2 Ankle Plantarflexion: RIGHT 4+ LEFT 4+ EHL: RIGHT 4+ LEFT 3 FHL: RIGHT 4+ LEFT 4+ The patient does have a degree of weakness overall however this is likely sec ondary to her medical stay deconditioning as well as current medical state. The patient has left lower extremity weakness in dorsiflexion and EHL however this been present since before surgery. I do not feel it has gotten significantly worse since after surgery. She is able to fire EHL as well as tibialis anterior tibialis anterior is weak EHL is stronger on the left-hand side. When prompted the patient can roll to the side and without any help and under her own power with really no issues. REFLEXES Biecp: RIGHT 2 LEFT 2 Tricep: RIGHT 2 LEFT 2 Brachioradialis: RIGHT 2 LEFT 2 Patellar: RIGHT 2 LEFT 2 Achilles: RIGHT 2 LEFT 2 No hyperreflexia noted Pathological Reflexes Mathur's: RIGHT Absent LEFT Absent Babinski: RIGHT Absent LEFT Absent Clonus: RIGHT None LEFT None No myelopathy signs noted SENSORY Joint Position: Intact bilaterally Vibration Intact bilaterally Pain and LT sense Intact C5-T1 and L2-S1 Dermatomal deficit mild L5 dermatomal deficit on the left-hand side still able to feel pressure however fine touch is difficult and she has some tingling to the touch in this area. Gait and Functional Evaluation: Ambulatory aids: Walker Romberg's test: Intact bilaterally. Hand and finger dexterity intact bilaterally. Disdiadochokinesis examination negative bilaterally. Results Laboratory results pending at this time Assessment and Plan Assessment: 65-year-old female status post L3 L5 laminectomy decompression and discectomy on 12/30/2020 with left lower extremity weakness and left foot drop, chronic in nature. Multiple medical comorbidities Complex medical patient with history of CVA TIA Left lower extremity radiculopathy Plan: I personally evaluated the patient and discussed with her her clinical signs and symptoms. At this time the patient does not appear to have any sort of infective process going on from her lumbar spine. The incision is healing very well no evidence of erythema or purulence drainage or other infective processes. The patient is not exhibiting any upper motor neuron signs which would suggest myelopathy or acute changes in her strength of her upper extremities or lower extremities. Most of the changes that she is experiencing are chronic in nature. She does have weakness in her left lower extremity she had weakness in her left lower skin preoperatively and I do not feel that her strength is changed significantly since postoperatively on her evaluations. She does have a footdrop on the left-hand side her dorsiflexion is weak. We would recommend an AFO for this and she was provided a prescription for this. I discussed at length with the emergency department physician and the patient at this time I do not feel that she needs to be admitted for our evaluation as her changes are more chronic in nature and postoperative. We will see what her labs show as far as her possible UTI. I would favor heard having trialed voids sooner than later as this needs to be set up with her care facility as they have not done this with her as of yet she states that she has had a Pete this whole time. She needs to follow-up with urology for this. She stated that if she can get some pain control she feels that she can actually go home and she has help at home with her her daughter and grandchildren. She states she would like to check out of her care facility at some point in soon. I encouraged her to heed their warnings and to have them help her get stronger before she leaves however she is not progressing there than maybe she would progress better at home with home care but she needs to make sure to discuss this with them and to set it up with them before she leaves. We did change her dressing and put a new OptiForm dressing on her wound. She can remove this after 3 days and then she does not need anything over the incision as it is well healing. This is simply for protection at this time. I discussed this plan of care with Dr. Olea in the emergency department as well as with the patient. She is comfortable with this at this time. No emergent orthopedic surgical needs. Time with Patient: Greater than 30
[2021-01-14 16:03] LABS: Partial Thromboplastin Time 25.8 sec (22.0-30.0)
[2021-01-14 16:07] LABS: Basophils % (A) 1 %; Eosinophils # (A) 0.4 k/uL (0-0.7); Eosinophils % (A) 5 %; HCT 26.2 % (34.0-46.0); Lymphocytes # (A) 1.6 k/uL (1.0-4.8); Lymphocytes % (A) 20 %; MCH 32.9 pg (25.0-35.0); MCHC 34.9 g/dL (31.0-37.0); MCV 94.2 fL (80.0-100.0); Mean Platelet Volume 8.5; Monocytes # (A) 0.5 k/uL (0-1.0); Monocytes % (A) 7 %; Neutrophils # (A) 5.3 k/uL (1.3-7.7); Neutrophils % (A) 66 %; Platelet Count 209 k/uL (150-450); RBC 2.78 m/uL (3.80-5.40); WBC 8.1 k/uL (3.8-10.6)
[2021-01-14 16:08] LABS: Albumin 3.1 g/dL (3.5-5.0); Calcium 8.9 mg/dL (8.4-10.2); HGB 9.1 gm/dL (11.4-16.0); Potassium 3.7 mmol/L (3.5-5.1); Total Bilirubin 0.3 mg/dL (0.2-1.3); Total Protein 5.6 g/dL (6.3-8.2)
[2021-01-14 16:18] LABS: Appearance,Urine Cloudy (Clear); Bacteria,Urine Occasional /hpf; Bilirubin,Urine Negative (Negative); Blood,Urine Large (Negative); Color,Urine Yellow; Glucose,Urine (UA) Negative (Negative); Ketones,Urine Negative (Negative); Leukocyte Esterase,Urine Large (Negative); Mucus,Urine Rare /hpf; Nitrite,Urine Positive (Negative); PH, Urine 5.5 (5.0-8.0); Protein,Urine Trace (Negative); RBC,Urine 7 /hpf (0-5); Specific Gravity,Urine 1.008 (1.001-1.035); Urobilinogen,Urine <2.0 mg/dL (<2.0); WBC,Urine 64 /hpf (0-5)
[2021-01-14] MEDS ORDERED: HYDROmorphone 0.5 MG/0.5 ML SYRINGE IVP STA ×2 (16:31→16:38)
[2021-01-14] MEDS ORDERED: cefTRIAXone IN SWFI 1,000 MG/10 ML SYRINGE IVP STA (16:43)
[2021-01-14] MEDS ORDERED: SODIUM CHLORIDE 0.9% 1,000 ML IV ONE (16:44)
[2021-01-14] MEDS: HYDROmorphone 0.5 MG/0.5 ML SYRINGE IVP PRN (19:58)
[2021-01-14] MEDS ORDERED: LORATADINE 10 MG TAB PO PRN (21:27)
[2021-01-14] MEDS ORDERED: bisacodyL 10 MG SUPP RECTAL PRN (22:00)
[2021-01-14] MEDS: ASPIRIN 81 MG PO SCH (22:52)
[2021-01-14] MEDS: GLIMEPIRIDE 1 MG TAB PO SCH (22:53)
[2021-01-14] MEDS: MONTELUKAST 10 MG TAB PO SCH (22:53)
[2021-01-14] MEDS: POTASSIUM CHLORIDE ER 10 MEQ TAB.ER.PRT PO SCH (22:53)
[2021-01-14] MEDS: GABAPENTIN 300 MG CAP PO SCH (22:53)
[2021-01-14] MEDS: CYCLOBENZAPRINE 10 MG TAB PO SCH (22:53)
[2021-01-15] MEDS: HYDROmorphone 0.5 MG/0.5 ML SYRINGE IVP PRN ×2 (04:13→13:53)
[2021-01-15] MEDS: GABAPENTIN 300 MG CAP PO SCH ×3 (06:00→19:18)
[2021-01-15 07:32] LABS: Glucose,Whole Blood 88 mg/dL (75-99)
--- NOTE | 2021-01-15 07:48 | P.PN ---
Subjective Progress Note Date: 01/15/21 Principal diagnosis: 65-year-old female status post L3 L5 laminectomy decompression and discectomy on 12/30/2020 with left lower extremity weakness and left foot drop, chronic in na ture. Multiple medical comorbidities Complex medical patient with history of CVA TIA Left lower extremity radiculopathy Patient was seen at bedside this morning. Patient says she is feeling about the same as she was yesterday when we saw her in the emergency room. She is still feeling some weakness in her left leg on plantar flexion. She is able to move her legs and turn to her side in bed with ease. Patient denies chest pain, fever, shortness breath, nausea, vomiting, change in vision, loss of bowel/bladder control. Objective - Vital Signs Vital signs: Vital Signs Temp 97.7 F 01/15/21 01:31 Pulse 90 01/15/21 01:31 Resp 16 01/15/21 01:31 BP 128/77 01/15/21 01:31 Pulse Ox 97 01/15/21 07:34 Intake & Output 01/14/21 01/15/21 01/15/21 18:59 06:59 18:59 Output Total 1000 Balance -1000 Weight 96.162 kg 96.162 kg Output: Urine 1000 Other: Voiding Method Indwelling Catheter - Exam Focused: Lumbar spine incision is clean, dry, intact. Dressing was changed yesterday. Negative for ecchymosis, erythema, ukcers. Negative for any fluctuance/purulence. Sutures are in good place Weakness 2/5 in dorsiflexion of the left foot. Patient is able to elevate legs bilaterally Neurovascular: Refill under 3 seconds bilaterally and hands. Radial pulses intact, 2+. DP pulses intact, 2+. Special tests: Negative Seth's bilaterally. Negative Homans bilaterally. Negative clonus upon dorsiflexing feet bilaterally. - Labs CBC & Chem 7: 01/14/21 15:44 01/14/21 15:44 Labs: Abnormal Lab Results - Last 24 Hours (Table) 01/14/21 01/14/21 01/14/21 Range/Units 12:54 15:44 15:44 RBC 2.78 L (3.80-5.40) m/uL Hgb 9.1 L D (11.4-16.0) gm/dL Hct 26.2 L (34.0-46.0) % Sodium 134 L (137-145) mmol/L BUN 23 H (7-17) mg/dL Creatinine 1.35 H (0.52-1.04) mg/dL Glucose 117 H (74-99) mg/dL Total Protein 5.6 L (6.3-8.2) g/dL Albumin 3.1 L (3.5-5.0) g/dL Urine Appearance Cloudy H (Clear) Urine Protein Trace H (Negative) Urine Blood Large H (Negative) Urine Nitrite Positive H (Negative) Ur Leukocyte Esterase Large H (Negative) Urine RBC 7 H (0-5) /hpf Urine WBC 64 H (0-5) /hpf Urine WBC Clumps Few H (None) /hpf Urine Bacteria Occasional H (None) /hpf Urine Mucus Rare H (None) /hpf Microbiology - Last 24 Hours (Table) 01/14/21 12:42 Urine Culture - Preliminary Urine,Voided Assessment and Plan Assessment: 65-year-old female status post L3 L5 laminectomy decompression and discectomy on 12/30/2020 with left lower extremity weakness and left foot drop, chronic in nature. Multiple medical comorbidities Complex medical patient with history of CVA TIA Left lower extremity radiculopathy Plan: 1. left lower extremity weakness and left foot drop, chronic - AFO brace has been ordered. At this time after discussion with my attending, there is no urgent orthopedic surgical intervention needed. We'll continue to follow patient while in hospital 2. Appreciate medical management 3. Pain management - stable at this time 4. GI prophylaxis/DVT prophylaxis 5. PT/OT - weightbearing as tolerated /with walker for assistance Time with Patient: Less than 30
[2021-01-15] MEDS ORDERED: MAGNESIUM HYDROXIDE 2,400 MG/10 ML CUP PO PRN (08:00)
[2021-01-15] MEDS ORDERED: NA PHOS,M-B/NA PHOS,DI-BA 133 ML ENEMA RECTAL PRN (09:00)
[2021-01-15] MEDS: LOSARTAN 50 MG TAB PO SCH (09:07)
[2021-01-15] MEDS: CYCLOBENZAPRINE 10 MG TAB PO SCH ×2 (09:07→16:49)
[2021-01-15] MEDS: SENNOSIDES-DOCUSATE SODIUM 1 EACH TAB PO SCH (09:07)
[2021-01-15] MEDS: BUMETANIDE 0.5 MG TABLET PO SCH (09:08)
[2021-01-15] MEDS: GLIMEPIRIDE 1 MG TAB PO SCH ×2 (09:08→16:49)
[2021-01-15 11:35] LABS: Glucose,Whole Blood 83 mg/dL (75-99)
[2021-01-15 16:44] LABS: Glucose,Whole Blood 105 mg/dL (75-99)
[2021-01-15] MEDS: POTASSIUM CHLORIDE ER 10 MEQ TAB.ER.PRT PO SCH (16:49)
--- NOTE | 2021-01-15 18:23 | HP ---
HISTORY AND PHYSICAL HISTORY OF PRESENT ILLNESS: She came complaining of progressive weakness, unable to move her arms and legs, was treated for UTI with possible urosepsis, admitted to the hospital. She is status post laminectomy L3-L5 on 12/12/2020. She was having physical therapy at [facility]. They though she was having upper and lower extremity weakness, extremities, stroke-like symptoms and when they sent her to the hospital, she was found to have a UTI, urosepsis, fever, chills for which she was admitted to the hospital at this time. PAST MEDICAL HISTORY: Asthma, coronary artery disease, diabetes mellitus, DVT, GERD, dyslipidemia, hypertension, musculoskeletal disorder, osteoarthritis, renal disease, sleep apnea. PAST SURGICAL HISTORY: Bilateral knee arthroscopies, left ear patch, EGD, colonoscopy, polypectomy, throat abscess, right knee replacement. FAMILY HISTORY: Father cancer, . Mother liver disease. MEDICATIONS: Home medicines: Cozaar 50 daily, Amaryl 1 mg b.i.d., Singulair 10 mg daily, loratadine 10 mg daily, Ecotrin 81 mg daily, Bumex 0.5 daily, Neurontin 300 daily, potassium chloride 8 mEq daily, Flexeril 10 mg b.i.d., gabapentin 300 t.i.d., Oxy IR 5 mg q.6h p.r.n. ALLERGIES: TO IODINE, STATINS. PHYSICAL EXAM: T-max 100.4. PSYCH: Alert oriented x3. HEENT: Normocephalic, atraumatic. CARDIOVASCULAR: Regular rate and rhythm. LUNGS: Clear. EXTREMITIES: No cyanosis, clubbing, edema. Her lumbar incision is well healed. No erythema, ecchymosis over this area. Extremities are 2/4 strength. ASSESSMENT: 1. Status post L3-L5 laminectomy. 2. Urinary tract infection. 3. Possible urosepsis. 4. History of prior cerebrovascular accident, transient ischemic attack. 5. No signs of infection from the wound. saw her and does not think her weakness is any different from when she was admitted to the hospital. She is going to get AFO brace, treat her UTI, possible discharge her back to the alf. Prognosis guarded. MMODL / IJN: [id number] /
--- NOTE | 2021-01-15 18:43 | CONS ---
01/15/2021 CONSULTATION REASON FOR CONSULTATION: Fever and UTI. HISTORY OF PRESENT ILLNESS: The patient is a 65-year-old female who is status post laminectomy L2- L5 on January 08, 2021. Postoperatively, the patient did have evidence of urinary retention requiring Pete catheter placed, which apparently was supposed to be discontinued. However, the patient did not have any weaning trials done. The patient was subsequently sent to the [facility] for rehabilitation. The patient has been brought to the [facility] ER yesterday for evaluation of weakness and the patient having more lumbar area pain going down her left leg. The patient describes the pain to be more of a dull aching to sharp intensity, almost 5-6 out of 10, no radiation. The patient also noticed to have UTI diagnosed by the [facility] physician and was started on antibiotic. However, not sure what the antibiotic. The patient on presentation to hospital, denies any fever or any chills. However, she did have a low- grade fever of 100.3 on presentation to the hospital. The patient was not tachycardic. She did have a normal white count. The patient did have mildly elevated BUN and creatinine. Did have a positive UA. The patient was started on Rocephin and has been admitted to the hospital. Infectious Disease was consulted for further management of antibiotic therapy. The patient did have a chest x-ray that was negative for any acute cardiopulmonary process. REVIEW OF SYSTEMS: Positive points have been mentioned in HPI. Rest of systems are negative. PAST MEDICAL HISTORY: Asthma, coronary artery disease, COPD, diabetes mellitus, DVT, GERD, hypertension, hyperlipidemia, renal insufficiency. PAST SURGICAL HISTORY: Appendectomy, cholecystectomy, heart catheterization, tonsillectomy, recent laminectomy. SOCIAL HISTORY: Denies smoking, drinking or drug use. FAMILY HISTORY: Father with history of throat and brain cancer. Mother with history of lung and liver disease from alcoholism. ALLERGIES: TO IODINATED CONTRAST DYE AND STATINS. MEDICATIONS: Include the patient is currently on aspirin, Dulcolax, Rocephin 2 grams daily, Flexeril, Neurontin, Amaryl, Dilaudid, Claritin, Cozaar, Singulair, Oxy, K-Dur, Senokot. PHYSICAL EXAMINATION: Her blood pressure is 118/74 with a pulse of 90, temperature 98.3, T-max 100.4. She is 97% on 2 L nasal cannula. General description is an elderly female up in the chair in no distress. No tachypnea or accessory muscles of respiration use. HEENT: Examination shows slight pallor. No scleral icterus. Oral mucosal membranes dry. NECK: Trachea central. No thyromegaly. LUNGS: Unlabored breathing, decreased breath sounds in the base. No wheeze or crackles. HEART S1, S2. Regular rate and rhythm. ABDOMEN: Soft, no tenderness. EXTREMITIES: No edema of the feet. SKIN examination: The lumbar incision is currently clean. No swelling. No redness. No drainage. NEUROLOGIC: The patient is awake, alert and oriented times three. Mood and affect normal. LAB DATA: Hemoglobin 9.1, white count 8.1. BUN of 23, creatinine 1.35. Liver enzymes were normal. Urine was positive. DIAGNOSTIC IMPRESSION AND PLAN: Patient admitted to the hospital with weakness, more pain to the low back area in this patient who did have a recent history of lumbar laminectomy. The patient did have a positive UA and low-grade fever, concern for possible catheter associated urinary tract infection, likely from enteric Gram-negative pathogen. Lumbar incision currently looks clean and no signs of infection . PLAN: 1. Change Pete catheter. Obtain urine culture from new Pete. 2. Rocephin 2 g to continue. 3. We will follow on clinical condition and culture to further adjust medication if needed. Thank you for this consultation. We will follow this patient along with you. MMODL / IJN: [id number] / MTDD
[2021-01-15] MEDS: ASPIRIN 81 MG PO SCH (19:18)
[2021-01-15] MEDS: MONTELUKAST 10 MG TAB PO SCH (19:18)
[2021-01-15 20:16] LABS: Glucose,Whole Blood 94 mg/dL (75-99)
[2021-01-16] MEDS: HYDROmorphone 0.5 MG/0.5 ML SYRINGE IVP PRN ×2 (00:46→23:21)
[2021-01-16] MEDS: GABAPENTIN 300 MG CAP PO SCH ×3 (05:48→21:30)
[2021-01-16 07:12] LABS: Glucose,Whole Blood 80 mg/dL (75-99)
[2021-01-16] MEDS: CYCLOBENZAPRINE 10 MG TAB PO SCH ×2 (08:23→17:00)
[2021-01-16] MEDS: LOSARTAN 50 MG TAB PO SCH (08:23)
[2021-01-16] MEDS: GLIMEPIRIDE 1 MG TAB PO SCH ×2 (08:23→17:00)
[2021-01-16] MEDS: BUMETANIDE 0.5 MG TABLET PO SCH (08:23)
[2021-01-16] MEDS: SENNOSIDES-DOCUSATE SODIUM 1 EACH TAB PO SCH (08:23)
--- NOTE | 2021-01-16 10:47 | P.CNNES ---
History of Present Illness Consult date: 01/16/21 Requesting physician: Tavo Lisa Reason for Consult: weakness History of Present Illness: This is a 65-year-old woman with medical history of laminectomy of L3 to L5 on 12/30/2020, questionable transient ischemic attack for blurry vision in November 2020, diabetes mellitus, chronic kidney insufficiency, hypertension, history of DVT, sleep apnea, osteoarthritis of the hips and knees presented the to the emergency department because of generalized weakness, and a concern of strokes because of her weakness of upper and lower extremity weakness. Patient was found to have urosepsis during this hospital stay. Neurology is consulted for weakness. According to the patient nurse since the patient had been in rehab after her lower back surgery she had episodes of falls and has some confusion. Patient has chronic left foot drop. Regarding the confusion the or the nurse she stated that she has urosepsis, she is on Dilaudid and she is on the Flexeril. As well as her hemoglobin is 9.1 which is below her baseline usually it ranges between 11-13. Patient is on gabapentin 300 mg 1 tablet twice a day, Dilaudid 0.5 Tushar 1 tablet every 6 hours as needed, oxycodone on 5 mg every 6 hours as needed, Flexeril 10 mg 1 tablet twice a day scheduled. Upon seeing the patient's she stated that the she is having the pain over the left anterior thigh otherwise she denies of any other weakness numbness, visual disturbance, headache, difficulty getting her words out. I personally saw the patient last on 12/04/2020 because of lower back pain. I felt her transient episode blurry vision or confusion slurring the speech was possible transient ischemic attack and other possibilities metabolic, medication and component of severe obstructive sleep apnea and not using the CPAP machine. I felt her altered mental status was due to metabolic encephalopathy as well as septic which she had urinated tract infection as well as medication. Patient had MRI of the brain did not show any acute stroke. It shows some mild diffuse white matter changes may be present bilaterally. She had stroke workup which was negative. Vitamin B12 was 702 in the repeated was 420 which is normal the thyroid was normal and the folate level was within normal limits. The echocardiogram ejection fraction was 60-65%. Patient was on aspirin 81mg and that can be on statin since she is ALLERGIC to it. Please refer to my previous note for further details. Some other workup in the hospital consisted of: On initial presentation the patient the blood pressure is 126/71, heart rate of 102, temperature of 100.3 Fahrenheit oral, pulse ox of 95% room air. Otherwise the patient has not had any further elevated temperature. Patient white blood cell on presentation is 8.1 which is considered within normal limits. Hemoglobin on presentation is 9.1 as stated above and it's below her the normal baseline. Chemistry panel is the sodium is 134 slightly low creatinine is 1.35 which is elevated. Glucose is 117 which is just slightly low but not remarkable. Otherwise rest of the chemistry panel is within normal limits. The calcium is 8.9, AST of 19 and ALTs of 15. Urinalysis is positive for urinary tract infection. The urine culture is p ositive for gram-negative bacilli. She has getting ceftriaxone and infection disease is on board. Review of Systems Review of system: The 12 point system was reviewed and apparent positive and negative per HPI. Past Medical History Past Medical History: Asthma, Coronary Artery Disease (CAD), COPD, Diabetes Marisol itus, Deep Vein Thrombosis (DVT), GERD/Reflux, Hyperlipidemia, Hypertension, Musculoskeletal Disorder, Osteoarthritis (OA), Renal Disease, Sleep Apnea/CPAP/BIPAP Additional Past Medical History / Comment(s): PUD, colitis, benign colon polyps, DVT L leg, migraines, ANDREW - uses cpap. kidney stones, CKD stage II, vertigo, recurrent L ear infections/ruptured eardrum, TMJ, mild CAD, back prob - NT Lt arm, leg. Edema BLE. History of Any Multi-Drug Resistant Organisms: None Reported Past Surgical History: Appendectomy, Cholecystectomy, Ear Surgery, Heart Catheterization, Hysterectomy, Joint Replacement, Orthopedic Surgery, T onsillectomy Additional Past Surgical History / Comment(s): R/L knee arthroscopies, L ear patch/graft, EGD, colonoscopy/polypectomy, throat abscess. Right knee replacement Past Anesthesia/Blood Transfusion Reactions: Postoperative Nausea & Vomiting ( PONV) Past Psychological History: Anxiety Additional Psychological History / Comment(s): Spouse has cancer Smoking Status: Never smoker Past Alcohol Use History: None Reported Past Drug Use History: None Reported - Past Family History Father Family Medical History: Cancer Additional Family Medical History / Comment(s): Throat, brain cancer. Father was an alcoholic. Mother Family Medical History: Liver Disease Additional Family Medical History / Comment(s): Mother is . She was an alcoholic. Medications and Allergies Home Medications Medication Instructions Recorded Confirmed Type Losartan [Cozaar] 50 mg PO DAILY@0800 07/16/19 01/14/21 History Glimepiride [Amaryl] 1 mg PO BID@0800,1700 10/17/20 01/14/21 History Montelukast [Singulair] 10 mg PO HS 10/17/20 01/14/21 History Loratadine 10 mg PO DAILY PRN 11/19/20 01/14/21 History Aspirin EC [Ecotrin Low Dose] 81 mg PO HS 12/29/20 01/14/21 History Bumetanide [BUMEX] 0.5 mg PO DAILY@0800 12/29/20 01/14/21 History Potassium Chloride [K-Tab ER] 8 meq PO DAILY@1700 12/29/20 01/14/21 History Cyclobenzaprine [Flexeril] 10 mg PO BID@0800,1700 01/14/21 01/14/21 History Gabapentin 300 mg PO TID@0600,1400,2200 01/14/21 01/14/21 History Magnesium Hydroxide [Milk of 7,200 mg PO Q48H PRN 01/14/21 01/14/21 History Magnesia Concentrate] Na Phos,M-B/Na Phos,Di-Ba [Fleet 133 ml RECTAL DAILY PRN 01/14/21 01/14/21 History Adult] Sennosides/Docusate Sodium [Senna 1 cap PO DAILY@0800 01/14/21 01/14/21 History Plus 8.6-50 mg Softgel] bisacodyL [Bisacodyl] 10 mg RECTAL DAILY PRN 01/14/21 01/14/21 History oxyCODONE HCL [OxyIR] 5 mg PO Q6H PRN 01/14/21 01/14/21 History Allergies Allergy/AdvReac Type Severity Reaction Status Date / Time Iodinated Contrast Media Allergy Severe Anaphylaxis Verified 01/14/21 16:23 [Iodinated Contrast Media - IV Dye] iodine Allergy Anaphylaxis Verified 01/14/21 16:23 [id number] Reductase Allergy Anaphylaxis Verified 01/14/21 16:23 Inhibitor Physical Examination - Vital Signs Vital Signs: Vital Signs Temp Pulse Resp BP Pulse Ox 01/16/21 08:00 98 F 95 18 129/85 94 L 01/16/21 02:00 98.1 F 98 18 128/76 93 L 01/15/21 19:02 98.7 F 98 16 102/70 98 01/15/21 13:35 98.3 F 91 10 L 118/74 97 01/15/21 09:08 89 10 L Intake and Output 01/15/21 01/16/21 01/16/21 22:59 06:59 14:59 Intake Total 950 Output Total 450 650 Balance 500 -650 Intake: Intake, IV Titration 950 Amount Sodium Chloride 0.9% 1, 900 000 ml @ 75 mls/hr IV . [id number] ONE Rx#:[id number] cefTRIAXone 2 gm In 50 Sodium Chloride 0.9% 50 ml @ 100 mls/hr IVPB Q24HR [facility] Rx#:[id number] Output: Urine 450 650 Uretheral (Pete) 25 Other: Voiding Method Indwelling Catheter GENERAL: The patient is lying in bed and is moderate distress acute distress. CHEST: The heart rate is regular rate rhythm. No murmurs to auscultation. No carotid bruit bilaterally.. LUNG: Clear to auscultation bilaterally no wheezing noted throughout. Not labored breathing. ABDOMEN/GI: Bowel sounds present in all 4 quadrants. No tenderness to palpation throughout. NEUROLOGICAL: Higher mental function: The patient is awake, alert, oriented to self, place. She correctly stated the year is 2020 but month is December. She is able to name objects correctly (pen, watch). Patient is following commands. No aphasia and no neglect. Cranial nerves: The pupils are round, equal and reactive to light and accommodation. Visual rowe are full to confrontation throughout. Extraocular movement is intact no nystagmus is noted. Facial sensation is normal to touch throughout. The facial strength is normal throughout. Hearing is normal bilaterally to hand rub. Tongue is midline and moved [id number] without any difficulty. No dysarthria is noted. Shoulder shrug is normal bilaterally. Motor: The strength in the left lower extremity is limited because of pain but is able to somewhat bend her knee and with lift her thigh she was able to extend her knee, had left foot plantar flexion 2-3 while dorsiflexion is 0/5. Otherwise 5/5 throughout. Normal tone and bulk. Cerebellum: Normal finger to nose. Could not do heel to cyr since her back pain. Sensation: Sensation is decreased to touch over the left lower extremity. Otherwise normal. . Reflexes (right/left): 2+ in uppers. While lowers are 0-1 bilaterally. Plantars are downgoing bilaterally. Results - Laboratory Findings CBC and BMP: 01/14/21 15:44 01/14/21 15:44 Abnormal Lab Findings: Abnormal Labs 01/14/21 01/14/21 01/14/21 12:54 15:44 15:44 RBC 2.78 L Hgb 9.1 L D Hct 26.2 L Sodium 134 L BUN 23 H Creatinine 1.35 H Glucose 117 H POC Glucose (mg/dL) Total Protein 5.6 L Albumin 3.1 L Urine Appearance Cloudy H Urine Protein Trace H Urine Blood Large H Urine Nitrite Positive H Ur Leukocyte Esterase Large H Urine RBC 7 H Urine WBC 64 H Urine WBC Clumps Few H Urine Bacteria Occasional H Urine Mucus Rare H 01/15/21 16:43 RBC Hgb Hct Sodium BUN Creatinine Glucose POC Glucose (mg/dL) 105 H Total Protein Albumin Urine Appearance Urine Protein Urine Blood Urine Nitrite Ur Leukocyte Esterase Urine RBC Urine WBC Urine WBC Clumps Urine Bacteria Urine Mucus Assessment and Plan Assessment: Patient altered mental status and generalized weakness is due to septic encpehalopathy-urosepsis, anemia and medication effect (opiates/narcotics)--mentation improved. This is not acute stroke. Laminectomy of L3 to L5 on 12/30/2020 with current examination having left lower extremity pain (mostly proximally) patient has chronic lower extremity/back pain. History of left drop and per Orthopedic team (chronic) Acute anemia Acute on chronic kidney insufficiency History of old transient ischemic attack and November 2020 for blurry vision, slurred speech Diabetes mellitus Hypertension History of sleep apnea Plan: * A CT head and EEG are not needed from neurological stand point since this is not acute ischemia or seizure. * Initially ordered MRI Lumbar spine w/o (cannot get w/ since allergic to contrast and has acute on chronic kidney insufficiency) but upon speaking with Orthopedic team they stated it will show post-surgical changes and this can hold. I will defer decision of getting MRI Lumbar spine to Orthopedic team. * Continue aspirin 81 mg and patient can be on statin since is ALLERGIC. * Please avoid any narcotic/opiate and any sick sedative drugs that can affect the patient neurological examination. * PT and OT are consulted * Orthopedic team is on board. * Infection disease on board. * We'll defer the rest of the medical management to the primary team. * Upon discharge recommend the patient follow up with a neurologist within 12 weeks and recommend EMG with nerve conduction as an outpatient. The plan is discussed with the patient's nurse. Thank you for the consultation. There is no further neurological work-up. Neurology will sign off. Please reconsult if needed. Matt Chavarria M.D. Neuro-Hospitalist Time with Patient: Greater than 30
[2021-01-16] MEDS ORDERED: diazePAM 2 MG TAB PO STA (11:19)
[2021-01-16 11:46] LABS: Glucose,Whole Blood 85 mg/dL (75-99)
--- NOTE | 2021-01-16 13:35 | P.PN ---
Subjective Progress Note Date: 01/16/21 Principal diagnosis: Left lower extremity weakness, recent L3-L5 laminectomy with decompression, urinary tract infection Patient was examined today at bedside, Dr. Alvarez was available to the patient. Patient is resting in bed, she seems rather comfortable at this time. Patient states that she is having a lot of pain in the left lower extremity, she was somewhat of a poor historian when asked to describe the pain was located. She points down the anterior aspect of the leg and also trending into her left foot. Patient's been at rehab since her recent surgery, she underwent an L3-L5 laminectomy and decompression by Dr. Alvarez about 2 weeks ago. At rehab she was having a lot of difficulty with ambulation over the last day or so, and she was recently diagnosed with a urinary tract infection. Patient currently denies any headaches, lightheadedness, chest pain, shortness of breath. She denies any numbness or tingling of the lower extremities at this time. She denies any loss of bowel or bladder function. She denies any genital or peroneal numbness or tingling. Objective - Vital Signs Vital signs: Vital Signs Temp 98 F 01/16/21 08:00 Pulse 95 01/16/21 08:00 Resp 18 01/16/21 08:00 BP 129/85 01/16/21 08:00 Pulse Ox 94 L 01/16/21 08:00 Intake & Output 01/15/21 01/16/21 01/16/21 18:59 06:59 18:59 Intake Total 950 Output Total 1850 650 Balance -900 -650 Intake: Intake, IV Titration 950 Amount Sodium Chloride 0.9% 1, 900 000 ml @ 75 mls/hr IV . [id number] ONE Rx#:[id number] cefTRIAXone 2 gm In 50 Sodium Chloride 0.9% 50 ml @ 100 mls/hr IVPB Q24HR [facility] Rx#:[id number] Output: Urine 1850 650 Uretheral (Pete) 25 Other: Voiding Method Indwelling Catheter Indwelling Catheter Indwelling Catheter # Voids 800 # Bowel Movements 1 - Exam Gen: AOx3, NAD VSS stable at this time Integument: Incision is well healing, sutures are all in good position and condition. There is no erythema noted. There are no areas of fluctuance. Palpation: Patient has minimal tenderness with palpation of the lower lumbar spine both midline and paraspinal region. She is nontender with palpation throughout the cervical thoracic spine ROM: Range of motion all major muscle groups in the right lower extremity intact Range of motion in all major muscle groups of the left lower extremity are intact Sensory Exam: Senory exam to light touch is intact C5-T1 Senosry exam to light touch is intact L2-S1 Motor: 4 out of 5 strength is appreciated in the right lower extremity with hip flexion, knee extension, knee flexion, plantarflexion, dorsiflexion, EHL, FHL 4/5 strength is appreciated in the left lower extremity with hip flexion, extension, knee flexion, plantar flexion, FHL 3/5 strength is appreciated the left lower extremity with EHL, 2 out of 5 strength is appreciated with dorsiflexion Reflexes: 2/4 in all UE and LE Negative Seth's bilaterally, negative Babinski bilaterally Negative clonus right side, positive clonus noted left side for 5 beats - Labs CBC & Chem 7: 01/14/21 15:44 01/14/21 15:44 Labs: Abnormal Lab Results - Last 24 Hours (Table) 01/15/21 Range/Units 16:43 POC Glucose (mg/dL) 105 H (75-99) mg/dL Microbiology - Last 24 Hours (Table) 01/14/21 12:42 Urine Culture - Preliminary Urine,Voided Gram Neg Bacilli 01/14/21 12:54 Blood Culture - Preliminary Blood No Growth after 24 hours 01/14/21 15:44 Blood Culture - Preliminary Blood No Growth after 24 hours Assessment and Plan Assessment: Left lower extremity weakness History of L3-L5 lumbar laminectomy with decompression UTI Multiple medical comorbidities Plan: Dr. Alvarez was available today to examine the patient and discuss further treatment. At this time no emergent orthopedic surgical intervention teddy mmended at this time Recommend continuation of all oral medications as he's been taking, this to in clude Flexeril, gabapentin and her oral pain medication. I did order 4 mg of IV Decadron every 6 hours to aid in symptoms Dr. Alvarez did speak with Dr. Chavarria regarding the patient. There is little concern if any for stroke at this time. A discussed the initial MRI order of the lumbar spine, and with her recent surgery and the way the patient's presenting with physical exam findings, this would likely present no acute process of infection. MRI was canceled at this time. Recommend weight-bear as tolerated with walker, recommend use of the AFO brace when ambulating PT/OT evaluation GI and DVT prophylaxis per primary medical service Will continue to follow during inpatient stay Time with Patient: Less than 30
[2021-01-16] MEDS: DEXAMETHASONE SOD PHOSPHATE 4 MG/ML 1 ML VIAL IV SCH ×3 (14:05→23:20)
[2021-01-16 16:55] LABS: Glucose,Whole Blood 153 mg/dL (75-99)
[2021-01-16] MEDS: POTASSIUM CHLORIDE ER 10 MEQ TAB.ER.PRT PO SCH (17:00)
[2021-01-16] MEDS: MONTELUKAST 10 MG TAB PO SCH (21:30)
[2021-01-16] MEDS: ASPIRIN 81 MG PO SCH (21:30)
[2021-01-16 22:03] LABS: Glucose,Whole Blood 413 mg/dL (75-99)
[2021-01-16] MEDS ORDERED: INSULIN ASPART (NovoLOG) 100 UNIT/ML VIAL SQ ONE (22:23)
--- NOTE | 2021-01-16 23:48 | PN ---
PROGRESS NOTE DATE OF SERVICE: 01/16/2021 REASON FOR FOLLOWUP: Catheter associated urinary tract infection. INTERVAL HISTORY: Patient is afebrile. The patient is breathing comfortably. The patient denies having any chest pain. No shortness of breath or cough. No abdominal pain or worsening pain to the back area. No diarrhea. PHYSICAL EXAMINATION: Blood pressure 136/89 with a pulse of 90, temperature 98.2. She is 91% on room air. General description is an elderly female lying in bed in no distress. Respiratory system: Unlabored breathing, clear to auscultation anteriorly. Heart S1, S2. Regular rate and rhythm. LABS: Urine has been finalized with E coli sensitive pathogen. DIAGNOSTIC IMPRESSION AND PLAN: Patient with E coli urinary tract infection, catheter associated. The patient Pete has been changed. Patient at this time to continue with IV Rocephin, transition to oral antibiotic on discharge, continue supportive care. MMODL / IJN: [id number] /
[2021-01-17] MEDS: GABAPENTIN 300 MG CAP PO SCH ×3 (05:31→21:37)
[2021-01-17] MEDS: DEXAMETHASONE SOD PHOSPHATE 4 MG/ML 1 ML VIAL IV SCH ×3 (05:31→21:38)
[2021-01-17 06:58] LABS: Glucose,Whole Blood 271 mg/dL (75-99)
[2021-01-17] MEDS: SENNOSIDES-DOCUSATE SODIUM 1 EACH TAB PO SCH (08:01)
[2021-01-17] MEDS: LOSARTAN 50 MG TAB PO SCH (08:01)
[2021-01-17] MEDS: INSULIN ASPART (NovoLOG) 100 UNIT/ML VIAL SQ SCH ×4 (08:02→21:35)
[2021-01-17] MEDS: CYCLOBENZAPRINE 10 MG TAB PO SCH ×2 (08:02→17:53)
[2021-01-17] MEDS: BUMETANIDE 0.5 MG TABLET PO SCH (08:02)
[2021-01-17] MEDS: GLIMEPIRIDE 1 MG TAB PO SCH ×2 (08:03→19:15)
[2021-01-17 11:52] LABS: Basophils # (A) 0.02 X 10*3/uL (0.00-0.10); Basophils % (A) 0.3 %; Eosinophils # (A) 0.18 X 10*3/uL (0.04-0.35); Eosinophils % (A) 2.7 %; HGB 9.3 g/dL (12.0-15.0); Lymphocytes # (A) 0.98 X 10*3/uL (0.90-5.00); Lymphocytes % (A) 14.8 %; MCH 30.9 pg (27.0-32.0); MCHC 33.2 g/dL (32.0-37.0); Mean Platelet Volume 10.9 fL (9.5-12.2); Monocytes # (A) 0.09 X 10*3/uL (0.20-1.00); Monocytes % (A) 1.4 %; Neutrophils # (A) 5.27 X 10*3/uL (1.80-7.70); Neutrophils % (A) 79.9 %; Platelet Count 259 X 10*3/uL (140-440); RBC 3.01 X 10*6/uL (4.10-5.20); RDW 12.3 % (11.5-14.5)
[2021-01-17 11:55] LABS: Glucose,Whole Blood 318 mg/dL (75-99)
[2021-01-17 12:07] LABS: African American GFR (CKD) 54.9 (60.0-200.0); Albumin 3.9 g/dL (3.80-4.90); Albumin/Globulin Ratio 1.56 (1.60-3.17); Anion Gap 9.4 mmol/L (4.00-12.00); Calcium 9.4 mg/dL (8.7-10.3); Carbon Dioxide 24.6 mmol/L (21.6-31.8); Globulin 2.5 g/dL (1.6-3.3); Non-African American GFR(CKD) 47.4 (60.0-200.0); Potassium 4.3 mmol/L (3.5-5.5); Total Bilirubin 0.3 mg/dL (0.3-1.2); Total Protein 6.4 g/dL (6.2-8.2)
[2021-01-17] MEDS: INSULIN DETEMIR (LEVEMIR) 100 UNIT/ML SYR SQ SCH (14:02)
--- NOTE | 2021-01-17 14:38 | P.PN ---
Subjective Progress Note Date: 01/17/21 pt s/e. she is doing better today. States pain in leg is much better. States she has been up to chair and to bed and for a small walk around room. She has her AFO in room now. Denies any new numbness/tingling. Denies any f/c/sob/cp at this time. Objective - Vital Signs Vital signs: Vital Signs Temp 97.8 F 01/17/21 08:00 Pulse 96 01/17/21 08:00 Resp 18 01/17/21 08:00 BP 146/82 01/17/21 08:00 Pulse Ox 94 L 01/17/21 08:00 Intake & Output 01/16/21 01/17/21 01/17/21 18:59 06:59 18:59 Intake Total 540 1080 Output Total 1000 900 Balance -460 -900 1080 Intake: Oral 540 1080 Output: Urine 1000 900 Other: Voiding Method Indwelling Catheter Indwelling Catheter Indwelling Catheter # Voids 800 - Exam Gen: AOx3, NAD VSS stable at this time Integument: Incision is well healing, sutures are all in good position and condition. There is no erythema noted. There are no areas of fluctuance. Palpation: Patient has minimal tenderness with palpation of the lower lumbar spine both midline and paraspinal region. She is nontender with palpation throughout the cervical thoracic spine ROM: Range of motion all major muscle groups in the right lower extremity intact Range of motion in all major muscle groups of the left lower extremity are intact Sensory Exam: Senory exam to light touch is intact C5-T1 Senosry exam to light touch is intact L2-S1 Motor: 4 out of 5 strength is appreciated in the right lower extremity with hip flexion, knee extension, knee flexion, plantarflexion, dorsiflexion, EHL, FHL 4/5 strength is appreciated in the left lower extremity with hip flexion, extension, knee flexion, plantar flexion, FHL 3/5 strength is appreciated the left lower extremity with EHL, 2 out of 5 strength is appreciated with dorsiflexion Reflexes: 2/4 in all UE and LE Negative Seth's bilaterally, negative Babinski bilaterally Negative clonus right side, positive clonus noted left side for 5 beats - Labs CBC & Chem 7: 01/17/21 07:17 01/17/21 07:17 Labs: Abnormal Lab Results - Last 24 Hours (Table) 01/16/21 01/16/21 01/17/21 Range/Units 16:53 21:51 06:55 RBC (4.10-5.20) X 10*6/uL Hgb (12.0-15.0) g/dL Hct (37.2-46.3) % Immature Gran # (0.00-0.04) X 10*3/uL Monocytes # (0.20-1.00) X 10*3/uL Est GFR (CKD-EPI)AfAm (60.0-200.0) Est GFR (CKD-EPI)NonAf (60.0-200.0) Glucose (70-110) mg/dL POC Glucose (mg/dL) 153 H 413 H 271 H (75-99) mg/dL Albumin/Globulin Ratio (1.60-3.17) g/dL 01/17/21 01/17/21 01/17/21 Range/Units 07:17 07:17 11:52 RBC 3.01 L (4.10-5.20) X 10*6/uL Hgb 9.3 L (12.0-15.0) g/dL Hct 28.0 L (37.2-46.3) % Immature Gran # 0.06 H (0.00-0.04) X 10*3/uL Monocytes # 0.09 L (0.20-1.00) X 10*3/uL Est GFR (CKD-EPI)AfAm 54.9 L (60.0-200.0) Est GFR (CKD-EPI)NonAf 47.4 L (60.0-200.0) Glucose 239 H (70-110) mg/dL POC Glucose (mg/dL) 318 H (75-99) mg/dL Albumin/Globulin Ratio 1.56 L (1.60-3.17) g/dL Microbiology - Last 24 Hours (Table) 01/14/21 12:42 Urine Culture - Final Urine,Voided Escherichia coli 01/14/21 12:54 Blood Culture - Preliminary Blood No Growth after 48 hours 01/14/21 15:44 Blood Culture - Preliminary Blood No Growth after 48 hours Assessment and Plan Assessment: 65-year-old female status post L3 L5 laminectomy decompression and discectomy on 12/30/2020 with left lower extremity weakness and left foot drop, chronic in nature. Multiple medical comorbidities Complex medical patient with history of CVA TIA Left lower extremity radiculopathy Plan: Cont with incrased activity as tolerated. Pain control GI/DVT ppx Cont with PT/OT AFO when up and about Walker for ambulation Remove stitches tomorrow
--- NOTE | 2021-01-17 16:50 | P.PN ---
Progress Note - Text Progress Note Date: 01/17/21 Presenting complaint: Lower back pain Interval history: I'm rounding today for Dr. Tavo Lisa On December 30/2021 patient underwent bilateral laminectomy with medial facetectomy, foraminotomy L3-L5, by Dr. Alvarez. Patient now presents with weakness in the left leg numbness below the left knee and pain with lower back. January 17: Sitting up in a chair. Back pain is better controlled. Has not really walked. [facility] not [facility] and was to go home. Before by PT OT. Had a BM. Review of systems: Was done for constitutional, cardiovascular, GI, pulmonary. relevant finding as above Active Medications Aspirin (Aspirin 81 Mg) 81 mg PO HS [facility] Last Admin: 01/16/21 21:30 Dose: 81 mg Documented by: Bisacodyl (Bisacodyl 10 Mg Supp) 10 mg RECTAL DAILY PRN PRN Reason: Constipation Bumetanide (Bumetanide 0.5 Mg Tablet) 0.5 mg PO DAILY@0800 [facility] Last Admin: 01/17/21 08:02 Dose: 0.5 mg Documented by: Cyclobenzaprine HCl (Cyclobenzaprine 10 Mg Tab) 10 mg PO BID@0800,1700 [facility] Last Admin: 01/17/21 08:02 Dose: 10 mg Documented by: Dexamethasone Sodium Phosphate (Dexamethasone Sod Phosphate 4 Mg/Ml 1 Ml Vial) 4 mg IV Q6HR [facility] Last Admin: 01/17/21 12:49 Dose: 4 mg Documented by: Gabapentin (Gabapentin 300 Mg Cap) 300 mg PO TID@0600,1400,2200 [facility] Last Admin: 01/17/21 14:02 Dose: 300 mg Documented by: Glimepiride (Glimepiride 1 Mg Tab) 1 mg PO BID@0800,1700 [facility] Last Admin: 01/17/21 08:03 Dose: 1 mg Documented by: Hydromorphone HCl (Hydromorphone 0.5 Mg/0.5 Ml Syringe) 0.5 mg IVP Q6HR PRN PRN Reason: Pain Last Admin: 01/16/21 23:21 Dose: 0.5 mg Documented by: Ceftriaxone Sodium 2 gm/ (Sodium Chloride) 50 mls @ 100 mls/hr IVPB Q24HR [facility] Last Admin: 01/17/21 08:02 Dose: 100 mls/hr Documented by: Insulin Aspart (Insulin Aspart (Novolog) 100 Unit/Ml Vial) [address] [facility]; Protocol Last Admin: 01/17/21 12:49 Dose: 5 unit Documented by: Insulin Detemir (Insulin Detemir (Levemir) 100 Unit/Ml Syr) 20 unit SQ DAILY@0700 [facility] Last Admin: 01/17/21 14:02 Dose: 20 unit Documented by: Loratadine (Loratadine 10 Mg Tab) 10 mg PO DAILY PRN PRN Reason: Allergy Symptoms Losartan Potassium (Losartan 50 Mg Tab) 50 mg PO DAILY@0800 [facility] Last Admin: 01/17/21 08:01 Dose: 50 mg Documented by: Magnesium Hydroxide (Magnesium Hydroxide 2,400 Mg/10 Ml Cup) 2,400 mg PO Q48H PRN PRN Reason: Constipation Montelukast Sodium (Montelukast 10 Mg Tab) 10 mg PO [facility] Last Admin: 01/16/21 21:30 Dose: 10 mg Documented by: Oxycodone HCl (Oxycodone Hcl 5 Mg Tab) 5 mg PO Q6H PRN PRN Reason: Moderate to Severe Pain Last Admin: 01/17/21 14:02 Dose: 5 mg Documented by: Potassium Chloride (Potassium Chloride Er 10 Meq Tab.Er.Prt) 10 meq PO DAILY@1700 [facility] Last Admin: 01/16/21 17:00 Dose: 10 meq Documented by: Senna/Docusate Sodium (Sennosides-Docusate Sodium 1 Each Tab) 1 each PO DAILY@0800 [facility] Last Admin: 01/17/21 08:01 Dose: 1 each Documented by: Sodium Biphosphate/Sodium Phosphate (Na Phos,M-B/Na Phos,Di-Ba 133 Ml Enema) 133 ml RECTAL DAILY PRN PRN Reason: Chest Pain On examination: VITAL SIGNS: 97.9, 87, 18, 111/71, 96% room air GENERAL APPEARANCE: BMI 41.4, sitting up in a reclining chair. HEENT: Normal external appearance of nose and ear. Oral cavity normal EYES: Pupils equal. Conjunctiva normal. NECK: JVD not raised. Mass not palpable. RESPIRATORY: Respiratory effort normal. Lungs clear to auscultation. CARDIOVASCULAR: First and second sounds normal. No edema. ABDOMEN: Soft. Liver and spleen not palpable. No tenderness. No mass palpable. MUSCULAR skeletal: Decreased range of motion left leg. PSYCHIATRY: Alert and oriented x3. Mood and affect normal. INVESTIGATIONS, reviewed in the clinical context: WBC 6.6 hemoglobin 9.3 potassium 4.3 creatinine 1.2 Accu-Cheks 318 Assessment and plan: -Increased lower back pain and left leg radiculopathy some weakness following L3 L5 surgery. Patient started IV Decadron 4 mg every 6. We will cut back to every 12 today. Causing significant hypoglycemia. -Diabetes mellitus type 2, uncontrolled with hyperglycemia secondary to steroids Continue with oral hypoglycemic. Accu-Cheks. Had Levemir -Obstructive sleep apnea Continue CPAP -Morbid obesity BMI 41.4 Weight loss measures and follow-up with PCP -GERD -Hyperlipidemia Diet controlled. 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 Cutback Solu-Medrol to every 12. Patient was to go home. Did tell her she is not stable for discharge yet. PTOT's working with the patient. Supervising increase in activity.
--- NOTE | 2021-01-17 16:55 | PN ---
PROGRESS NOTE DATE OF SERVICE: 01/17/2021 REASON FOR FOLLOWUP: Catheter associated urinary tract infection. INTERVAL HISTORY: The patient is afebrile. The patient is breathing comfortably. The patient denies having any chest pain. No shortness of breath or cough. No abdominal pain or diarrhea. PHYSICAL EXAMINATION: Blood pressure 111/71 with a pulse of 87, temperature 97.9. She is 96% on room air. General description is an elderly female lying in bed in no distress. Respiratory system: Unlabored breathing, clear to auscultation anteriorly. Heart S1, S2. Regular rate and rhythm. Abdomen soft, no tenderness. Extremities: No edema of the feet. LABS: Hemoglobin is 9.1, white count 6.0, BUN of 18, creatinine is 1.2. DIAGNOSTIC IMPRESSION AND PLAN: Patient with E coli urinary tract infection, catheter associated. Pete catheter has been changed already. The patient is covered with Rocephin, to continue. Transition to oral antibiotic on discharge and monitor clinical course closely. MMODL / IJN: [id number] /
[2021-01-17 17:26] LABS: Glucose,Whole Blood 289 mg/dL (75-99)
[2021-01-17] MEDS: POTASSIUM CHLORIDE ER 10 MEQ TAB.ER.PRT PO SCH (17:53)
[2021-01-17] MEDS: ENOXAPARIN 40 MG/0.4 ML SYRINGE SQ SCH (17:53)
[2021-01-17] MEDS: diazePAM 5 MG TAB PO PRN (19:15)
[2021-01-17 20:36] LABS: Glucose,Whole Blood 340 mg/dL (75-99)
[2021-01-17] MEDS: MONTELUKAST 10 MG TAB PO SCH (21:37)
[2021-01-17] MEDS: ASPIRIN 81 MG PO SCH (21:44)
[2021-01-18] MEDS: HYDROmorphone 0.5 MG/0.5 ML SYRINGE IVP PRN (00:08)
[2021-01-18] MEDS: GABAPENTIN 300 MG CAP PO SCH ×3 (05:24→20:49)
[2021-01-18 06:46] LABS: Glucose,Whole Blood 239 mg/dL (75-99)
[2021-01-18] MEDS: LOSARTAN 50 MG TAB PO SCH (08:02)
[2021-01-18] MEDS: INSULIN DETEMIR (LEVEMIR) 100 UNIT/ML SYR SQ SCH (08:02)
[2021-01-18] MEDS: CYCLOBENZAPRINE 10 MG TAB PO SCH ×2 (08:02→17:21)
[2021-01-18] MEDS: SENNOSIDES-DOCUSATE SODIUM 1 EACH TAB PO SCH (08:02)
[2021-01-18] MEDS: ENOXAPARIN 40 MG/0.4 ML SYRINGE SQ SCH (08:03)
[2021-01-18] MEDS: INSULIN ASPART (NovoLOG) 100 UNIT/ML VIAL SQ SCH ×4 (08:03→21:03)
[2021-01-18] MEDS: GLIMEPIRIDE 1 MG TAB PO SCH ×2 (08:03→17:20)
[2021-01-18] MEDS: DEXAMETHASONE SOD PHOSPHATE 4 MG/ML 1 ML VIAL IV SCH ×2 (08:04→20:50)
[2021-01-18] MEDS: BUMETANIDE 0.5 MG TABLET PO SCH (08:04)
[2021-01-18] MEDS: diazePAM 5 MG TAB PO PRN ×2 (08:12→20:49)
[2021-01-18 11:24] LABS: Glucose,Whole Blood 252 mg/dL (75-99)
--- NOTE | 2021-01-18 11:45 | P.PN ---
Subjective Progress Note Date: 01/18/21 Patient seen and examined. Resting comfortably no new complaints today. She has been up in the chair. Nursing at bedside states that she is doing fairly well. She discussed her dose of medication. She plans on going to rehab soon. Objective - Vital Signs Vital signs: Vital Signs Temp 97.8 F 01/18/21 08:00 Pulse 73 01/18/21 08:00 Resp 19 01/18/21 08:00 BP 126/80 01/18/21 08:00 Pulse Ox 92 L 01/18/21 08:00 Intake & Output 01/17/21 01/18/21 01/18/21 18:59 06:59 18:59 Intake Total 1080 540 Output Total 1000 Balance 1080 -1000 540 Intake: Oral 1080 540 Output: Urine 1000 Other: Voiding Method Indwelling Catheter # Voids 3 - Exam Exam is stable today and no changes Gen: AOx3, NAD VSS stable at this time Integument: Incision is well healing, sutures are all in good position and condition. There is no erythema noted. There are no areas of fluctuance. Palpation: Patient has minimal tenderness with palpation of the lower lumbar spine both midline and paraspinal region. She is nontender with palpation throughout the cervical thoracic spine ROM: Range of motion all major muscle groups in the right lower extremity intact Range of motion in all major muscle groups of the left lower extremity are intact Sensory Exam: Senory exam to light touch is intact C5-T1 Senosry exam to light touch is intact L2-S1 Motor: 4 out of 5 strength is appreciated in the right lower extremity with hip flexion, knee extension, knee flexion, plantarflexion, dorsiflexion, EHL, FHL 4/5 strength is appreciated in the left lower extremity with hip flexion, extension, knee flexion, plantar flexion, FHL 3/5 strength is appreciated the left lower extremity with EHL, 2 out of 5 strength is appreciated with dorsiflexion Reflexes: 2/4 in all UE and LE Negative Seth's bilaterally, negative Babinski bilaterally Negative clonus right side, positive clonus noted left side for 5 beats - Labs CBC & Chem 7: 01/17/21 07:17 01/17/21 07:17 Labs: Abnormal Lab Results - Last 24 Hours (Table) 08/07/21 08/07/21 08/07/21 Range/Units 07:17 07:17 11:52 RBC 3.01 L (4.10-5.20) X 10*6/uL Hgb 9.3 L (12.0-15.0) g/dL Hct 28.0 L (37.2-46.3) % Immature Gran # 0.06 H (0.00-0.04) X 10*3/uL Monocytes # 0.09 L (0.20-1.00) X 10*3/uL Est GFR (CKD-EPI)AfAm 54.9 L (60.0-200.0) Est GFR (CKD-EPI)NonAf 47.4 L (60.0-200.0) Glucose 239 H (70-110) mg/dL POC Glucose (mg/dL) 318 H (75-99) mg/dL Albumin/Globulin Ratio 1.56 L (1.60-3.17) g/dL 01/17/21 01/17/21 01/18/21 Range/Units 17:24 20:29 06:45 RBC (4.10-5.20) X 10*6/uL Hgb (12.0-15.0) g/dL Hct (37.2-46.3) % Immature Gran # (0.00-0.04) X 10*3/uL Monocytes # (0.20-1.00) X 10*3/uL Est GFR (CKD-EPI)AfAm (60.0-200.0) Est GFR (CKD-EPI)NonAf (60.0-200.0) Glucose (70-110) mg/dL POC Glucose (mg/dL) 289 H 340 H 239 H (75-99) mg/dL Albumin/Globulin Ratio (1.60-3.17) g/dL 01/18/21 Range/Units 11:22 RBC (4.10-5.20) X 10*6/uL Hgb (12.0-15.0) g/dL Hct (37.2-46.3) % Immature Gran # (0.00-0.04) X 10*3/uL Monocytes # (0.20-1.00) X 10*3/uL Est GFR (CKD-EPI)AfAm (60.0-200.0) Est GFR (CKD-EPI)NonAf (60.0-200.0) Glucose (70-110) mg/dL POC Glucose (mg/dL) 252 H (75-99) mg/dL Albumin/Globulin Ratio (1.60-3.17) g/dL Microbiology - Last 24 Hours (Table) 01/14/21 12:54 Blood Culture - Preliminary Blood No Growth after 72 hours 01/14/21 15:44 Blood Culture - Preliminary Blood No Growth after 72 hours Assessment and Plan Assessment: 65-year-old female status post L3 L5 laminectomy decompression and discectomy on 12/30/2020 with left lower extremity weakness and left foot drop, chronic in nature. Multiple medical comorbidities Complex medical patient with history of CVA TIA Left lower extremity radiculopathy Plan: Cont with incrased activity as tolerated. Pain control GI/DVT ppx Cont with PT/OT AFO when up and about Walker for ambulation Remove stitches tomorrow
--- NOTE | 2021-01-18 16:40 | P.PN ---
Progress Note - Text Progress Note Date: 01/18/21 Presenting complaint: Lower back pain Interval history: I'm rounding today for Dr. Tavo Lisa On December 30/2021 patient underwent bilateral laminectomy with medial facetectomy, foraminotomy L3-L5, by Dr. Alvarez. Patient now presents with weakness in the left leg numbness below the left knee and pain with lower back. January 17: Sitting up in a chair. Back pain is better controlled. Has not really walked. Does not want to return to the [facility] and was to go home. Following PT OT. Had a BM. January 18: No new issues. Weakness of the left leg. Oral intake good. Review of systems: Was done for constitutional, cardiovascular, GI, pulmonary. relevant finding as above Active Medications Aspirin (Aspirin 81 Mg) 81 mg PO HS [facility] Last Admin: 01/17/21 21:44 Dose: 81 mg Documented by: Bisacodyl (Bisacodyl 10 Mg Supp) 10 mg RECTAL DAILY PRN PRN Reason: Constipation Bumetanide (Bumetanide 0.5 Mg Tablet) 0.5 mg PO DAILY@0800 [facility] Last Admin: 01/18/21 08:04 Dose: 0.5 mg Documented by: Cyclobenzaprine HCl (Cyclobenzaprine 10 Mg Tab) 10 mg PO BID@0800,1700 [facility] Last Admin: 01/18/21 08:02 Dose: 10 mg Documented by: Dexamethasone Sodium Phosphate (Dexamethasone Sod Phosphate 4 Mg/Ml 1 Ml Vial) 4 mg IV Q12H [facility] Last Admin: 01/18/21 08:04 Dose: 4 mg Documented by: Diazepam (Diazepam 5 Mg Tab) 5 mg PO BID PRN PRN Reason: Anxiety Last Admin: 01/18/21 08:12 Dose: 5 mg Documented by: Enoxaparin Sodium (Enoxaparin 40 Mg/0.4 Ml Syringe) 40 mg SQ DAILY [facility] Last Admin: 01/18/21 08:03 Dose: 40 mg Documented by: Gabapentin (Gabapentin 300 Mg Cap) 300 mg PO TID@0600,1400,2200 [facility] Last Admin: 01/18/21 12:48 Dose: 300 mg Documented by: Glimepiride (Glimepiride 1 Mg Tab) 1 mg PO BID@0800,1700 [facility] Last Admin: 01/18/21 08:03 Dose: 1 mg Documented by: Hydromorphone HCl (Hydromorphone 0.5 Mg/0.5 Ml Syringe) 0.5 mg IVP Q6HR PRN PRN Reason: Pain Last Admin: 01/18/21 00:08 Dose: 0.5 mg Documented by: Ceftriaxone Sodium 2 gm/ (Sodium Chloride) 50 mls @ 100 mls/hr IVPB Q24HR [facility] Last Admin: 01/18/21 08:03 Dose: 100 mls/hr Documented by: Insulin Aspart (Insulin Aspart (Novolog) 100 Unit/Ml Vial) [address] [facility]; Protocol Last Admin: 01/18/21 12:48 Dose: 4 unit Documented by: Insulin Detemir (Insulin Detemir (Levemir) 100 Unit/Ml Syr) 20 unit SQ DAILY@0700 [facility] Last Admin: 01/18/21 08:02 Dose: 20 unit Documented by: Loratadine (Loratadine 10 Mg Tab) 10 mg PO DAILY PRN PRN Reason: Allergy Symptoms Losartan Potassium (Losartan 50 Mg Tab) 50 mg PO DAILY@0800 [facility] Last Admin: 01/18/21 08:02 Dose: 50 mg Documented by: Magnesium Hydroxide (Magnesium Hydroxide 2,400 Mg/10 Ml Cup) 2,400 mg PO Q48H PRN PRN Reason: Constipation Montelukast Sodium (Montelukast 10 Mg Tab) 10 mg PO [facility] Last Admin: 01/17/21 21:37 Dose: 10 mg Documented by: Oxycodone HCl (Oxycodone Hcl 5 Mg Tab) 5 mg PO Q6H PRN PRN Reason: Moderate to Severe Pain Last Admin: 01/18/21 10:30 Dose: 5 mg Documented by: Potassium Chloride (Potassium Chloride Er 10 Meq Tab.Er.Prt) 10 meq PO DAILY@1700 [facility] Last Admin: 01/17/21 17:53 Dose: 10 meq Documented by: Senna/Docusate Sodium (Sennosides-Docusate Sodium 1 Each Tab) 1 each PO DAILY@0800 [facility] Last Admin: 01/18/21 08:02 Dose: 1 each Documented by: Sodium Biphosphate/Sodium Phosphate (Na Phos,M-B/Na Phos,Di-Ba 133 Ml Enema) 133 ml RECTAL DAILY PRN PRN Reason: Chest Pain On examination: VITAL SIGNS: 98.2, then 10, 17, and 15 x 73, 96% GENERAL APPEARANCE: up in a reclining chair. HEENT: Normal external appearance of nose and ear. Oral cavity normal EYES: Pupils equal. Conjunctiva normal. NECK: JVD not raised. Mass not palpable. RESPIRATORY: Respiratory effort normal. Lungs clear to auscultation. CARDIOVASCULAR: First and second sounds normal. No edema. ABDOMEN: Soft. Liver and spleen not palpable. No tenderness. No mass palpable. MUSCULAR skeletal: Decreased range of motion left leg. PSYCHIATRY: Alert and oriented x3. Mood and affect normal. INVESTIGATIONS, reviewed in the clinical context: WBC 6.6 hemoglobin 9.3 potassium 4.3 creatinine 1.2 Accu-Cheks 318 Assessment and plan: -Increased lower back pain and left leg radiculopathy some weakness following L3 L5 surgery. Patient started IV Decadron 4 mg every 6. We will cut back to every 12 today. Causing significant hypoglycemia. -Diabetes mellitus type 2, uncontrolled with hyperglycemia secondary to steroids Continue with oral hypoglycemic. Accu-Cheks. Had Levemir -Obstructive sleep apnea Continue CPAP -Morbid obesity BMI 41.4 Weight loss measures and follow-up with PCP -GERD -Hyperlipidemia Diet controlled. 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 Discussed with patient. Recheck with orthopedics if patient can be switched over to oral steroids. PTOT and liaison planner determine if patient can go home versus rehab. Patient is more inclined to go home.
[2021-01-18 16:59] LABS: Glucose,Whole Blood 225 mg/dL (75-99)
[2021-01-18] MEDS: POTASSIUM CHLORIDE ER 10 MEQ TAB.ER.PRT PO SCH (17:21)
[2021-01-18] MEDS: ASPIRIN 81 MG PO SCH (20:49)
[2021-01-18] MEDS: MONTELUKAST 10 MG TAB PO SCH (20:49)
[2021-01-18 20:55] LABS: Glucose,Whole Blood 237 mg/dL (75-99)
[2021-01-19] MEDS: GABAPENTIN 300 MG CAP PO SCH ×2 (05:35→12:40)
--- NOTE | 2021-01-19 06:25 | PN ---
PROGRESS NOTE DATE OF SERVICE: 01/18/2021. REASON FOR FOLLOWUP: E. coli catheter associated urinary tract infection. INTERVAL HISTORY: Patient is afebrile. The patient is breathing comfortably. No chest pain, shortness of breath or cough. No nausea, vomiting, abdominal pain and no diarrhea. PHYSICAL EXAMINATION: Blood pressure 134/89 with a pulse of 87, temperature 98.3, she is 95% on room air. General description is an elderly female lying in bed in no distress. Respiratory system: Unlabored breathing. Clear to auscultation anteriorly. Heart S1, S2. Regular rate and rhythm. Abdomen: Soft, no tenderness. LABS: No new labs have been obtained today. DIAGNOSTIC IMPRESSION AND PLAN: Patient with E coli catheter associated urinary tract infection. Patient's Pete catheter has been changed. Patient is covered with Rocephin, transition to oral Ceftin on discharge and close outpatient followup. MMODL / IJN: [id number] /
[2021-01-19 06:47] LABS: Glucose,Whole Blood 180 mg/dL (75-99)
[2021-01-19 07:50] VITALS: BP 158/78; PULSE 69; RESP 17; TEMP 98.8
[2021-01-19] MEDS: LOSARTAN 50 MG TAB PO SCH (08:47)
[2021-01-19] MEDS: DEXAMETHASONE SOD PHOSPHATE 4 MG/ML 1 ML VIAL IV SCH (08:47)
[2021-01-19] MEDS: CYCLOBENZAPRINE 10 MG TAB PO SCH (08:47)
[2021-01-19] MEDS: BUMETANIDE 0.5 MG TABLET PO SCH (08:47)
[2021-01-19] MEDS: diazePAM 5 MG TAB PO PRN (08:47)
[2021-01-19] MEDS: SENNOSIDES-DOCUSATE SODIUM 1 EACH TAB PO SCH (08:47)
[2021-01-19] MEDS: ENOXAPARIN 40 MG/0.4 ML SYRINGE SQ SCH (08:47)
[2021-01-19] MEDS: GLIMEPIRIDE 1 MG TAB PO SCH (08:47)
[2021-01-19] MEDS: INSULIN ASPART (NovoLOG) 100 UNIT/ML VIAL SQ SCH ×2 (08:48→12:40)
[2021-01-19] MEDS: INSULIN DETEMIR (LEVEMIR) 100 UNIT/ML SYR SQ SCH (08:49)
[2021-01-19 11:12] LABS: Glucose,Whole Blood 267 mg/dL (75-99)
--- NOTE | 2021-01-19 13:33 | PN ---
PROGRESS NOTE DATE OF SERVICE: 01/19/2021 REASON FOR FOLLOWUP: Catheter associated urinary tract infection. INTERVAL HISTORY: Patient is afebrile. The patient is breathing comfortably. The patient denies having any chest pain, shortness of breath or cough. No nausea, vomiting. No abdominal pain or diarrhea. PHYSICAL EXAMINATION: Blood pressure 158/78 with a pulse of 69, temperature 98.8. She is 97% on room air. General description is an elderly female lying in bed in no distress. Respiratory system: Unlabored breathing, clear to auscultation anteriorly. Heart S1, S2. Regular rate and rhythm. Abdomen soft, no tenderness. LABS: No new labs have been obtained today. Blood culture negative. DIAGNOSTIC IMPRESSION AND PLAN: Patient with an E coli catheter associated urinary tract infection. Patient's Pete catheter has been changed. Plan is to finish therapy with oral Ceftin and close outpatient followup. MMODL / IJN: [id number] /
--- NOTE | 2021-01-19 14:39 | P.PN ---
Subjective Progress Note Date: 01/19/21 Principal diagnosis: 65-year-old female status post L3 L5 laminectomy decompression and discectomy on 12/30/2020 with left lower extremity weakness and left foot drop, chronic in na ture. Multiple medical comorbidities Complex medical patient with history of CVA TIA Left lower extremity radiculopathy Patient was seen at bedside this morning. Patient says she is feeling better than she had over the weekend. She says she is ready to go home for rehab. She says she is feeling stronger and air left foot on dorsiflexion however, She is still feeling some weakness in her left leg on dorsiflexion. She is able to move her legs and turn to her side in bed with ease. Patient denies chest pain, fever, shortness breath, nausea, vomiting, change in vision, loss of bowel/bladd er control. Objective - Vital Signs Vital signs: Vital Signs Temp 98.8 F 01/19/21 07:49 Pulse 69 01/19/21 07:49 Resp 17 01/19/21 07:49 BP 158/78 01/19/21 07:49 Pulse Ox 97 01/19/21 07:49 Intake & Output 01/18/21 01/19/21 01/19/21 18:59 06:59 18:59 Intake Total 1080 600 600 Output Total 650 Balance 1080 -50 600 Intake: Oral 1080 600 600 Output: Urine 650 Other: Voiding Method Indwelling Catheter Indwelling Catheter - Exam Focused: Lumbar spine incision is clean, dry, intact. Dressing was changed yesterday. Negative for ecchymosis, erythema, ukcers. Negative for any fluctuance/purulence. Sutures are in good place. Sutures removed Weakness 3/5 in dorsiflexion of the left foot. Patient is able to elevate legs bilaterally Neurovascular: Refill under 3 seconds bilaterally and hands. Radial pulses intact, 2+. DP pulses intact, 2+. Special tests: Negative Seth's bilaterally. Negative Homans bilaterally. - Labs CBC & Chem 7: 01/17/21 07:17 01/17/21 07:17 Labs: Abnormal Lab Results - Last 24 Hours (Table) 01/18/21 01/18/21 01/19/21 Range/Units 16:57 20:53 06:44 POC Glucose (mg/dL) 225 H 237 H 180 H (75-99) mg/dL 01/19/21 Range/Units 11:10 POC Glucose (mg/dL) 267 H (75-99) mg/dL Microbiology - Last 24 Hours (Table) 01/14/21 12:54 Blood Culture - Preliminary Blood No Growth after 96 hours 01/14/21 15:44 Blood Culture - Preliminary Blood No Growth after 96 hours Assessment and Plan Assessment: 65-year-old female status post L3 L5 laminectomy decompression and discectomy on 12/30/2020 with left lower extremity weakness and left foot drop, chronic in nature. Multiple medical comorbidities Complex medical patient with history of CVA TIA Left lower extremity radiculopathy Plan: 1. left lower extremity weakness and left foot drop, chronic - Patient has been using AFO brace. We'll continue to follow patient while in hospital 2. Appreciate medical management 3. Pain management - stable at this time 4. GI prophylaxis/DVT prophylaxis 5. PT/OT - weightbearing as tolerated /with walker for assistance Time with Patient: Less than 30
--- NOTE | 2021-03-11 15:12 | CDI ---
Documentation Clarification Form Date: 03/11/2021 02:34:13 PM From: Charissa Friedman Rn, CCDS Admit Date: 01/16/2021 08:54:00 AM Patient Name: Shalonda Smalls Visit Number: [id number] Discharge Date: 01/19/2021 03:08:00 PM ATTENTION: The Clinical Documentation Specialists (CDI) and [facility] Coding Staff appreciate your assistance in clarifying documentation. Please respond to the clarification below the line at the bottom and electronically sign. The CDI & [facility] Coding staff will review the response and follow-up if needed. Please note: Queries are made part of the Legal Health Record. If you have any questions, please contact the author of this message via ITS. Dr. Tavo Lisa The patient has had a recent positive COVID-19 test result 01/19 at 1442 and requires acknowledgment and documentation in the medical record. Hx: From a [facility], UTI with Sepsis, CVA, COPD, DVT, HTN, PUD, CKD stage 2 Clinical Indicators: Documented infection: Catheter related UTI Documented end Organ Damage: Metabolic encephalopathy, Acute on chronic kidney disease stage 2 Treatment No Covid directed treatment or RX found Please clarify the current status of the patients COVID-19 infection in the discharge summary such as: [ ] COVID-19 current active infection during this admission (please specify if condition was POA or NOT POA and all Covid associated conditions.) [ ] Other explanation of clinical findings (please specify): [ ] Clinically unable to determine the current status of the patients COVID- 19 infection [ ] Unknown MTDD
--- NOTE | 2021-03-14 14:17 | PN ---
PROGRESS NOTE ADDENDUM TO HER DIAGNOSIS: COVID-19, probably there on admission. Not sure if she caught it at the hospital or not. I would say probably not prior to admission and it was the source of her delirium and some encephalopathy while with at the hospital, active infection with COVID pneumonia probably while she was admitted. JOSÉ / MINOR: [id number] /
== END 2021-01-19 15:08 | DRG 698 ==
LOC: EC 12:27 → 6NMEDSUR 16:54 → 4SSUR 20:08 → OBSVTOIN 01-16 08:54
PROVIDERS: ADMIT Family Medicine; ATTEND Family Medicine
DX: T83.518A Infection and inflammatory reaction due to other urinary catheter, initial encounter (principal); G93.41 Metabolic encephalopathy; U07.1 COVID-19; J12.82 Pneumonia due to coronavirus disease 2019; Z68.41 Body mass index [BMI] 40.0-44.9, adult; N39.0 Urinary tract infection, site not specified; N17.9 Acute kidney failure, unspecified; Z79.4 Long term (current) use of insulin; Z79.899 Other long term (current) drug therapy; Z80.8 Family history of malignant neoplasm of other organs or systems; Z81.1 Family history of alcohol abuse and dependence; Z86.718 Personal history of other venous thrombosis and embolism; Z86.73 Personal history of transient ischemic attack (TIA), and cerebral infarction without residual deficits; Y84.6 Urinary catheterization as the cause of abnormal reaction of the patient, or of later complication, without mention of misadventure at the time of the procedure; Z87.11 Personal history of peptic ulcer disease; T38.0X5A Adverse effect of glucocorticoids and synthetic analogues, initial encounter; Z96.651 Presence of right artificial knee joint; Z90.710 Acquired absence of both cervix and uterus; Z88.8 Allergy status to other drugs, medicaments and biological substances; Z87.442 Personal history of urinary calculi; Z87.19 Personal history of other diseases of the digestive system; N18.2 Chronic kidney disease, stage 2 (mild); M54.10 Radiculopathy, site unspecified; M21.372 Foot drop, left foot; M17.0 Bilateral primary osteoarthritis of knee; M16.0 Bilateral primary osteoarthritis of hip; K21.9 Gastro-esophageal reflux disease without esophagitis; J44.9 Chronic obstructive pulmonary disease, unspecified; I25.10 Atherosclerotic heart disease of native coronary artery without angina pectoris; I12.9 Hypertensive chronic kidney disease with stage 1 through stage 4 chronic kidney disease, or unspecified chronic kidney disease; G47.33 Obstructive sleep apnea (adult) (pediatric); E78.5 Hyperlipidemia, unspecified; E66.01 Morbid (severe) obesity due to excess calories; E11.65 Type 2 diabetes mellitus with hyperglycemia; E11.649 Type 2 diabetes mellitus with hypoglycemia without coma; E11.22 Type 2 diabetes mellitus with diabetic chronic kidney disease; D64.9 Anemia, unspecified; B96.20 Unspecified Escherichia coli [E. coli] as the cause of diseases classified elsewhere; F41.9 Anxiety disorder, unspecified; G43.909 Migraine, unspecified, not intractable, without status migrainosus; K52.9 Noninfective gastroenteritis and colitis, unspecified; M19.90 Unspecified osteoarthritis, unspecified site; M54.5 Low back pain; Z79.84 Long term (current) use of oral hypoglycemic drugs
CPT/HCPCS: 36415; 71045; 80053; 81001; 83605; 85025; 85610; 85730; 87040; 87077; 87086; 87186; 87635; 93005; 94660; 94760; 96365; 96375; 99285

== ENCOUNTER 2021-01-19 16:21 | Observation (INO) | payer MEDICARE, OTHER ==
--- NOTE | 2021-01-19 19:24 | ED ---
General Adult HPI - General Chief complaint: Upper Respiratory Infection Stated complaint: revisit - Covid+ Time Seen by Provider: 01/19/21 17:30 Source: patient, RN notes reviewed, old records reviewed Mode of arrival: wheelchair Limitations: no limitations - History of Present Illness Initial comments: This is a 65-year-old female who was in the hospital for a back surgery. Patient was discharged today to go back to the [facility] however prior to discharge they did a COVID swab on her incentive before the results were back. Results came back positive. Patient was brought back immediately before she was admitted to the [facility]. Patient states she is asymptomatic. Patient denies any loss of taste or smell. Patient denies any difficulty breathing shortness of breath or cough. Patient denies any chest pain. Patient denies any diarrhea. Patient denies any abdominal pain. - Related Data Home Medications Medication Instructions Recorded Confirmed Losartan [Cozaar] 50 mg PO DAILY@0800 07/16/19 01/14/21 Glimepiride [Amaryl] 1 mg PO BID@0800,1700 10/17/20 01/14/21 Montelukast [Singulair] 10 mg PO HS 10/17/20 01/14/21 Loratadine 10 mg PO DAILY PRN 11/19/20 01/14/21 Aspirin EC [Ecotrin Low Dose] 81 mg PO HS 12/29/20 01/14/21 Bumetanide [BUMEX] 0.5 mg PO DAILY@0800 12/29/20 01/14/21 Potassium Chloride [K-Tab ER] 8 meq PO DAILY@1700 12/29/20 01/14/21 Cyclobenzaprine [Flexeril] 10 mg PO BID@0800,1700 01/14/21 01/14/21 Magnesium Hydroxide [Milk of 7,200 mg PO Q48H PRN 01/14/21 01/14/21 Magnesia Concentrate] Na Phos,M-B/Na Phos,Di-Ba [Fleet 133 ml RECTAL DAILY PRN 01/14/21 01/14/21 Adult] Sennosides/Docusate Sodium [Senna 1 cap PO DAILY@0800 01/14/21 01/14/21 Plus 8.6-50 mg Softgel] bisacodyL [Bisacodyl] 10 mg RECTAL DAILY PRN 01/14/21 01/14/21 Previous Rx's Medication Instructions Recorded Diazepam [Valium] 5 mg PO BID PRN 3 Days #6 tab 01/19/21 Enoxaparin [Lovenox] 40 mg SQ DAILY syringe 01/19/21 Gabapentin 300 mg PO TID@0600,1400,2200 #9 cap 01/19/21 INSULIN ASPART (NovoLOG) [NovoLOG 0 unit SQ ACHS vial 01/19/21 (formulary)] Insulin Detemir (Levemir) [Levemir] 20 unit SQ DAILY@0700 syr 01/19/21 oxyCODONE HCL [OxyIR] 5 mg PO Q6H PRN #12 tab 01/19/21 Allergies Allergy/AdvReac Type Severity Reaction Status Date / Time Iodinated Contrast Media Allergy Severe Anaphylaxis Verified 01/19/21 17:37 [Iodinated Contrast Media - IV Dye] iodine Allergy Anaphylaxis Verified 01/19/21 17:37 [id number] Reductase Allergy Anaphylaxis Verified 01/19/21 17:37 Inhibitor Review of Systems ROS Statement: Those systems with pertinent positive or pertinent negative responses have been documented in the HPI. ROS Other: All systems not noted in ROS Statement are negative. Past Medical History Past Medical History: Asthma, Coronary Artery Disease (CAD), COPD, Diabetes Mellitus, Deep Vein Thrombosis (DVT), GERD/Reflux, Hyperlipidemia, Hypertension, Musculoskeletal Disorder, Osteoarthritis (OA), Renal Disease, Sleep Apnea/CPAP/BIPAP Additional Past Medical History / Comment(s): PUD, colitis, benign colon polyps, DVT L leg, migraines, ANDREW - uses cpap. kidney stones, CKD stage II, vertigo, recurrent L ear infections/ruptured eardrum, TMJ, mild CAD, back prob - NT Lt arm, leg. Edema BLE. covid + 01/19/2021 History of Any Multi-Drug Resistant Organisms: None Reported Past Surgical History: Appendectomy, Cholecystectomy, Ear Surgery, Heart Catheterization, Hysterectomy, Joint Replacement, Orthopedic Surgery, Tonsillectomy Additional Past Surgical History / Comment(s): R/L knee arthroscopies, L ear patch/graft, EGD, colonoscopy/polypectomy, throat abscess. Right knee replacement, back surgery, Past Anesthesia/Blood Transfusion Reactions: Postoperative Nausea & Vomiting (PONV) Past Psychological History: Anxiety Smoking Status: Never smoker Past Alcohol Use History: None Reported Past Drug Use History: None Reported - Past Family History Father Family Medical History: Cancer Additional Family Medical History / Comment(s): Throat, brain cancer. Father was an alcoholic. Mother Family Medical History: Liver Disease Additional Family Medical History / Comment(s): Mother is . She was an alcoholic. General Exam - General Exam Comments Initial Comments: GENERAL: Patient is well-developed and well-nourished. Patient is nontoxic and well- hydrated and is in no acute distress. ENT: Neck is soft and supple. No significant lymphadenopathy is noted. Oropharynx is clear. Moist mucous membranes. Neck has full range of motion without eliciting any pain. EYES: The sclera were anicteric and conjunctiva were pink and moist. Extraocular movements were intact and pupils were equal round and reactive to light. Eyelids were unremarkable. PULMONARY: Unlabored respirations. Good breath sounds bilaterally. No audible rales rhonchi or wheezing was noted. CARDIOVASCULAR: There is a regular rate and rhythm without any murmurs gallops or rubs. ABDOMEN: Soft and nontender with normal bowel sounds. SKIN: Skin is clear with no lesions or rashes and otherwise unremarkable. NEUROLOGIC: Patient is alert and oriented x3. Cranial nerves II through XII are grossly intact. Motor and sensory are also intact. Normal speech, volume and content. Symmetrical smile. MUSCULOSKELETAL: Normal extremities with adequate strength and full range of motion. No lower extremity swelling or edema. No calf tenderness. LYMPHATICS: No significant lymphadenopathy is noted PSYCHIATRIC: Normal psychiatric evaluation. Limitations: no limitations Course Vital Signs 01/19/21 17:32 Temperature 98.6 F Pulse Rate 78 Respiratory 18 Rate Blood Pressure 136/84 O2 Sat by Pulse 97 Oximetry Disposition Clinical Impression: COVID-19 Disposition: ADMITTED IP TO THIS HOSP Referrals: Tavo Lisa MD [Primary Care Provider] - 1-2 days Time of Disposition: 19:24
[2021-01-19] MEDS ORDERED: SODIUM CHLORIDE 0.9% 50 ML IVPB ONE (19:30)
[2021-01-19] MEDS ORDERED: CASIRIVIMAB (REGN10933) (EUA) 600 MG, IMDEVIMAB (REGN10987) (EUA) 600 MG in SODIUM CHLO... IVPB ONE (19:45)
[2021-01-19] MEDS ORDERED: HYDROmorphone 0.5 MG/0.5 ML SYRINGE IVP STA (21:06)
--- NOTE | 2021-01-19 22:08 | XR ---
EXAMINATION TYPE: XR chest 2V DATE OF EXAM: 01/19/2021 COMPARISON: 01/14/2021 HISTORY: Difficulty breathing TECHNIQUE: 2 views FINDINGS: There is no heart failure nor confluent pneumonic infiltrate. Costophrenic angles are clear . Bony thorax is intact. IMPRESSION: No active cardiopulmonary disease. Normal heart. No change.
[2021-01-19] MEDS ORDERED: bisacodyL 10 MG SUPP RECTAL PRN (23:22)
[2021-01-19] MEDS ORDERED: diazePAM 5 MG TAB PO PRN (23:22)
[2021-01-19] MEDS ORDERED: LORATADINE 10 MG TAB PO PRN (23:22)
[2021-01-19] MEDS ORDERED: MAGNESIUM HYDROXIDE 2,400 MG/10 ML CUP PO PRN (23:22)
[2021-01-19] MEDS ORDERED: NA PHOS,M-B/NA PHOS,DI-BA 133 ML ENEMA RECTAL PRN (23:22)
[2021-01-19] MEDS ORDERED: AZITHROMYCIN 500 MG in SODIUM CHLORIDE 0.9% 250 ML IVPB SCH (23:30)
[2021-01-20] MEDS: DEXAMETHASONE SOD PHOSPHATE 10 MG/ML 1 ML VIAL IV SCH ×2 (02:09→08:53)
[2021-01-20] MEDS ORDERED: GABAPENTIN 300 MG CAP PO SCH (06:00)
[2021-01-20] MEDS ORDERED: INSULIN DETEMIR (LEVEMIR) 100 UNIT/ML SYR SQ SCH (07:00)
[2021-01-20 07:04] VITALS: RESP 18
[2021-01-20] MEDS ORDERED: BUMETANIDE 0.5 MG TABLET PO SCH (08:00)
[2021-01-20] MEDS ORDERED: SENNOSIDES-DOCUSATE SODIUM 1 EACH TAB PO SCH (08:00)
[2021-01-20] MEDS ORDERED: GLIMEPIRIDE 1 MG TAB PO SCH (08:00)
[2021-01-20] MEDS ORDERED: LOSARTAN 50 MG TAB PO SCH (08:00)
--- NOTE | 2021-01-20 08:49 | P.CNPUL ---
History of Present Illness Consult date: 01/20/21 Reason for consult: pneumonia, other Chief complaint: covid infection History of present illness: This is a 65-year-old female with the history of back pain and problems associated with that, patient underwent back surgery and was discharged to extended care facility prior to discharge: Weight swab was done results were not available at the time of discharge however they came back positive while she was just [facility], [facility] patient seen and evaluated examined the ER on specific questioning she denies any chest pain shortness of breath denies any headache denies any fever or chills, no history of loss of taste or smell denies any diarrhea or abdominal pain, patient has been vaccinated for COVID-19 pneumonia with J&J, left-sided pending, chest x-ray unremarkable, patient has been started on Decadron in the emergency department, patient has been given a dose of monoclonal antibody Review of Systems All systems: negative Past Medical History Past Medical History: Asthma, Coronary Artery Disease (CAD), COPD, Diabetes Mellitus, Deep Vein Thrombosis (DVT), GERD/Reflux, Hyperlipidemia, Hypertension, Musculoskeletal Disorder, Osteoarthritis (OA), Renal Disease, Sleep Apnea/CPAP/BIPAP Additional Past Medical History / Comment(s): PUD, colitis, benign colon polyps, DVT L leg, migraines, ANDREW - uses cpap. kidney stones, CKD stage II, vertigo, recurrent L ear infections/ruptured eardrum, TMJ, mild CAD, back prob - NT Lt arm, leg. Edema BLE. covid + 01/19/2021 History of Any Multi-Drug Resistant Organisms: None Reported Past Surgical History: Appendectomy, Cholecystectomy, Ear Surgery, Heart Catheterization, Hysterectomy, Joint Replacement, Orthopedic Surgery, Tonsillectomy Additional Past Surgical History / Comment(s): R/L knee arthroscopies, L ear patch/graft, EGD, colonoscopy/polypectomy, throat abscess. Right knee replacement, back surgery, Past Anesthesia/Blood Transfusion Reactions: Postoperative Nausea & Vomiting (PONV) Past Psychological History: Anxiety Smoking Status: Never smoker Past Alcohol Use History: None Reported Past Drug Use History: None Reported - Past Family History Father Family Medical History: Cancer Additional Family Medical History / Comment(s): Throat, brain cancer. Father was an alcoholic. Mother Family Medical History: Liver Disease Additional Family Medical History / Comment(s): Mother is . She was an alcoholic. Medications and Allergies Home Medications Medication Instructions Recorded Confirmed Type Losartan [Cozaar] 50 mg PO DAILY@0800 07/16/19 01/19/21 History Glimepiride [Amaryl] 1 mg PO BID@0800,1700 10/17/20 01/19/21 History Montelukast [Singulair] 10 mg PO HS 10/17/20 01/19/21 History Loratadine 10 mg PO DAILY PRN 11/19/20 01/19/21 History Aspirin EC [Ecotrin Low Dose] 81 mg PO HS 12/29/20 01/19/21 History Bumetanide [BUMEX] 0.5 mg PO DAILY@0800 12/29/20 01/19/21 History Potassium Chloride [K-Tab ER] 8 meq PO DAILY@1700 12/29/20 01/19/21 History Cyclobenzaprine [Flexeril] 10 mg PO BID@0800,1700 01/14/21 01/19/21 History Magnesium Hydroxide [Milk of 7,200 mg PO Q48H PRN 01/14/21 01/19/21 History Magnesia Concentrate] Na Phos,M-B/Na Phos,Di-Ba [Fleet 133 ml RECTAL DAILY PRN 01/14/21 01/19/21 History Adult] Sennosides/Docusate Sodium [Senna 1 cap PO DAILY@0800 01/14/21 01/19/21 History Plus 8.6-50 mg Softgel] bisacodyL [Bisacodyl] 10 mg RECTAL DAILY PRN 01/14/21 01/19/21 History Diazepam [Valium] 5 mg PO BID PRN 3 Days #6 tab 01/19/21 01/19/21 Rx Enoxaparin [Lovenox] 40 mg SQ DAILY syringe 01/19/21 01/19/21 Rx Gabapentin 300 mg PO TID@0600,1400,2200 #9 cap 01/19/21 01/19/21 Rx INSULIN ASPART (NovoLOG) [NovoLOG See Protocol SQ ACHS 01/19/21 01/19/21 History (formulary)] Insulin Detemir (Levemir) [Levemir] 20 unit SQ DAILY@0700 syr 01/19/21 01/19/21 Rx oxyCODONE HCL [OxyIR] 5 mg PO Q6H PRN #12 tab 01/19/21 01/19/21 Rx Allergies Allergy/AdvReac Type Severity Reaction Status Date / Time Iodinated Contrast Media Allergy Severe Anaphylaxis Verified 01/19/21 21:38 [Iodinated Contrast Media - IV Dye] iodine Allergy Anaphylaxis Verified 01/19/21 21:38 Wozjnnl-Vjc-Mif Reductase Allergy Anaphylaxis Verified 01/19/21 21:38 Inhibitor Physical Exam Vitals: Vital Signs Temp Pulse Resp BP Pulse Ox 01/20/21 07:02 97.1 F L 64 18 164/86 97 01/20/21 04:00 88 16 128/79 98 01/19/21 22:13 95 20 146/84 97 01/19/21 17:37 18 01/19/21 17:32 98.6 F 78 18 136/84 97 Intake and Output 01/19/21 01/20/21 01/20/21 22:59 06:59 14:59 Other: Weight 50.802 kg - Constitutional General appearance: average body habitus, cooperative, disheveled - EENT Eyes: PERRLA Ears: bilateral: normal - Neck Neck: normal ROM Carotids: bilateral: upstroke normal Thyroid: bilateral: normal size - Respiratory Respiratory: bilateral: CTA - Cardiovascular Rhythm: regular Heart sounds: normal: S1, S2 - Gastrointestinal General gastrointestinal: normal bowel sounds, soft - Integumentary Integumentary: normal turgor - Musculoskeletal Musculoskeletal: gait normal, generalized weakness, strength equal bilaterally - Psychiatric Psychiatric: A&O x's 3, appropriate affect, intact judgment & insight Results - Diagnostic Findings Chest x-ray: report reviewed, image reviewed (Finding as noted above) Assessment and Plan Assessment: COVID-19 infection status post monoclonal antibody Type 2 diabetes mellitus Hypertension hypertensive cardiovascular disease Status post monoclonal antibody Plan: Patient has been admitted medications and has been resumed patient on burst and antibiotics will follow clinical course closely repeat chest x-ray tomorrow
--- NOTE | 2021-01-20 08:55 | HP ---
HISTORY AND PHYSICAL HISTORY OF PRESENT ILLNESS: 65-year-old white female admitted with Covid-19, back from the [facility] because positive for Covid. Results are positive. Came back to [facility]. They were unable to keep her there. She denies any symptoms. No loss of taste or smell. No chest pain, shortness of breath, abdominal pain. She is 2 person assist due to severe lumbar radiculopathy. HOME MEDICATIONS: Cozaar 50 daily, Amaryl 1 mg b.i.d., Singulair 10 mg daily, loratadine 10 mg daily, aspirin 81 mg daily, Bumex 0.5 mg daily, Klor-Con 8 mEq daily, Flexeril 10 mg b.i.d., milk of magnesia, fleets enema p.r.n., senna p.r.n., bisacodyl p.r.n. ALLERGIES: IODINE. STATINS. PAST MEDICAL HISTORY: Asthma, coronary artery disease, diabetes mellitus, COPD, DVT, GERD, hypertension, musculoskeletal disorder, renal disease, osteoarthritis, sleep apnea, benign colon polyps, migraine, coronary artery disease. Ear infections. SURGERIES: Appendectomy cholecystectomy, ear surgery, heart catheterization, hysterectomy, joint replacement orthopedic surgery, tonsillectomy. FAMILY HISTORY: Father cancer brain. Father was alcoholic. Mother, liver disease, alcoholic. EXAM: Well-developed, well-nourished. ENT: External ear canals within normal limits. Pupils equal, round, reactive. LUNGS: Clear. CARDIOVASCULAR: S1, S2. ABDOMEN: Soft. EXTREMITIES: Negative Homans. NEUROLOGIC: Cranial nerves are intact. PSYCH: Fair mood and affect. ASSESSMENT: 1. Covid 19. 2. Chronic obstructive pulmonary disease. 3. Status post lumbar radiculopathy. Prognosis guarded. Continue with PT, OT, Decadron, azithromycin, zinc. Prognosis guarded, Lovenox subcu. MMODL / IJN: [id number] /
[2021-01-20] MEDS ORDERED: ENOXAPARIN 40 MG/0.4 ML SYRINGE SQ SCH (09:00)
[2021-01-20 09:38] LABS: Basophils # (A) 0.02 X 10*3/uL (0.00-0.10); Basophils % (A) 0.2 %; Eosinophils # (A) 0.03 X 10*3/uL (0.04-0.35); Eosinophils % (A) 0.3 %; HCT 31.4 % (37.2-46.3); Lymphocytes # (A) 1.48 X 10*3/uL (0.90-5.00); Lymphocytes % (A) 14.6 %; MCH 30.4 pg (27.0-32.0); MCHC 31.8 g/dL (32.0-37.0); MCV 95.4 fL (80.0-97.0); Mean Platelet Volume 10.6 fL (9.5-12.2); Monocytes # (A) 0.63 X 10*3/uL (0.20-1.00); Monocytes % (A) 6.2 %; Neutrophils # (A) 7.63 X 10*3/uL (1.80-7.70); Neutrophils % (A) 75.2 %; Platelet Count 286 X 10*3/uL (140-440); RBC 3.29 X 10*6/uL (4.10-5.20); RDW 12.9 % (11.5-14.5); WBC 10.14 X 10*3/uL (4.50-10.00)
[2021-01-20 11:44] VITALS: BP 142/70; PULSE 66; TEMP 98
[2021-01-20 13:04] LABS: African American GFR (CKD) 54.9 (60.0-200.0); Albumin 3.8 g/dL (3.80-4.90); Albumin/Globulin Ratio 1.52 (1.60-3.17); Calcium 8.8 mg/dL (8.7-10.3); Globulin 2.5 g/dL (1.6-3.3); Non-African American GFR(CKD) 47.4 (60.0-200.0); Total Bilirubin 0.2 mg/dL (0.3-1.2); Total Protein 6.3 g/dL (6.2-8.2)
[2021-01-20] MEDS ORDERED: POTASSIUM CHLORIDE ER 10 MEQ TAB.ER.PRT PO SCH (17:00)
[2021-01-20] MEDS ORDERED: ASPIRIN 81 MG PO SCH (21:00)
[2021-01-20] MEDS ORDERED: MONTELUKAST 10 MG TAB PO SCH (21:00)
[2021-01-21] MEDS ORDERED: AZITHROMYCIN 500 MG TAB PO SCH (06:00)
== END 2021-01-20 11:41 ==
LOC: EC 16:21 → 4SSUR 19:24
PROVIDERS: ADMIT Family Medicine; ATTEND Family Medicine
DX: U07.1 COVID-19 (principal); M54.16 Radiculopathy, lumbar region; I25.10 Atherosclerotic heart disease of native coronary artery without angina pectoris; M17.0 Bilateral primary osteoarthritis of knee; M16.0 Bilateral primary osteoarthritis of hip; K21.9 Gastro-esophageal reflux disease without esophagitis; I13.10 Hypertensive heart and chronic kidney disease without heart failure, with stage 1 through stage 4 chronic kidney disease, or unspecified chronic kidney disease; E11.22 Type 2 diabetes mellitus with diabetic chronic kidney disease; N18.2 Chronic kidney disease, stage 2 (mild); M19.90 Unspecified osteoarthritis, unspecified site; F41.9 Anxiety disorder, unspecified; M54.9 Dorsalgia, unspecified; J44.9 Chronic obstructive pulmonary disease, unspecified; E78.5 Hyperlipidemia, unspecified; G47.33 Obstructive sleep apnea (adult) (pediatric); Z79.899 Other long term (current) drug therapy; Z79.4 Long term (current) use of insulin; Z79.82 Long term (current) use of aspirin; Z91.041 Radiographic dye allergy status; Z88.8 Allergy status to other drugs, medicaments and biological substances; Z90.710 Acquired absence of both cervix and uterus; Z90.49 Acquired absence of other specified parts of digestive tract; Z96.651 Presence of right artificial knee joint; Z87.19 Personal history of other diseases of the digestive system; Z87.442 Personal history of urinary calculi; Z87.11 Personal history of peptic ulcer disease; Z98.890 Other specified postprocedural states; Z86.73 Personal history of transient ischemic attack (TIA), and cerebral infarction without residual deficits; Z86.718 Personal history of other venous thrombosis and embolism; Z86.14 Personal history of Methicillin resistant Staphylococcus aureus infection; Z81.1 Family history of alcohol abuse and dependence; Z80.8 Family history of malignant neoplasm of other organs or systems; Z80.1 Family history of malignant neoplasm of trachea, bronchus and lung
CPT/HCPCS: 99285; 96376; 96365; 96366 ×2; 96367; 96375 ×2; 96368; 80053; 85025; 71046; G0378 ×2; J1100; J0456; J1170; Q0243

== ENCOUNTER 2021-02-02 05:14 | Inpatient (IN) | payer MEDICARE, OTHER ==
--- NOTE | 2021-02-02 05:38 | ED ---
Back Pain HPI - General Chief Complaint: Back Pain/Injury Stated Complaint: Fall, Back Pain Time Seen by Provider: 02/02/21 05:15 Source: EMS, RN notes reviewed, old records reviewed Mode of arrival: EMS Limitations: no limitations - History of Present Illness Initial Comments: This is a 65-year-old female to the emergency department for evaluation. Ebenezer moreno presents today for evaluation regards to acute on chronic severe back pain. Patient has a complicated recent medical history including back surgery 1 month ago and has not succeeded for her. Patient is presenting today for pain. She left her extended care facility to be with her dying including family and was unable to return. Patient tried to go home was unable to ambulate and bear weight on her feet and does not have the facilities to make that a possible living arrangement for self. Even with the help of her sons MD Complaint: back pain, fall -: hour(s) Similar Symptoms Previously: Yes Place: home Radiation: buttocks, left leg, right leg Severity: severe Severity scale (1-10): 10 Quality: sharp Consistency: constant Improves With: none Worsens With: movement, walking Associated Symptoms: denies other symptoms - Related Data Home Medications Medication Instructions Recorded Confirmed Losartan [Cozaar] 50 mg PO DAILY@0800 07/16/19 01/19/21 Glimepiride [Amaryl] 1 mg PO BID@0800,1700 10/17/20 01/19/21 Montelukast [Singulair] 10 mg PO HS 10/17/20 01/19/21 Loratadine 10 mg PO DAILY PRN 11/19/20 01/19/21 Aspirin EC [Ecotrin Low Dose] 81 mg PO 12/29/20 01/19/21 Bumetanide [BUMEX] 0.5 mg PO DAILY@0800 12/29/20 01/19/21 Potassium Chloride [K-Tab ER] 8 meq PO DAILY@1700 12/29/20 01/19/21 Cyclobenzaprine [Flexeril] 10 mg PO BID@0800,1700 01/14/21 01/19/21 Magnesium Hydroxide [Milk of 7,200 mg PO Q48H PRN 01/14/21 01/19/21 Magnesia Concentrate] Na Phos,M-B/Na Phos,Di-Ba [Fleet 133 ml RECTAL DAILY PRN 01/14/21 01/19/21 Adult] Sennosides/Docusate Sodium [Senna 1 cap PO DAILY@0800 01/14/21 01/19/21 Plus 8.6-50 mg Softgel] bisacodyL 10 mg RECTAL DAILY PRN 01/14/21 01/19/21 INSULIN ASPART (NovoLOG) [NovoLOG See Protocol SQ ACHS 01/19/21 01/19/21 (formulary)] Previous Rx's Medication Instructions Recorded Diazepam [Valium] 5 mg PO BID PRN 3 Days #6 tab 01/19/21 Enoxaparin [Lovenox] 40 mg SQ DAILY syringe 01/19/21 Gabapentin 300 mg PO TID@0600,1400,2200 #9 cap 01/19/21 Insulin Detemir (Levemir) [Levemir] 20 unit SQ DAILY@0700 syr 01/19/21 oxyCODONE HCL [OxyIR] 5 mg PO Q6H PRN #12 tab 01/19/21 Allergies Allergy/AdvReac Type Severity Reaction Status Date / Time Iodinated Contrast Media Allergy Severe Anaphylaxis Verified 02/02/21 05:22 [Iodinated Contrast Media - IV Dye] iodine Allergy Anaphylaxis Verified 02/02/21 05:22 Imgpwyi-Frm-Blo Reductase Allergy Anaphylaxis Verified 02/02/21 05:22 Inhibitor Review of Systems ROS Statement: Those systems with pertinent positive or pertinent negative responses have been documented in the HPI. ROS Other: All systems not noted in ROS Statement are negative. Past Medical History Past Medical History: Asthma, Coronary Artery Disease (CAD), COPD, Diabetes Mellitus, Deep Vein Thrombosis (DVT), GERD/Reflux, Hyperlipidemia, Hypertension, Musculoskeletal Disorder, Osteoarthritis (OA), Renal Disease, Sleep Apnea/CPAP/BIPAP Additional Past Medical History / Comment(s): PUD, colitis, benign colon polyps, DVT L leg, migraines, ANDREW - uses cpap. kidney stones, CKD stage II, vertigo, recurrent L ear infections/ruptured eardrum, TMJ, mild CAD, back prob - NT Lt arm, leg. Edema BLE. covid + 01/19/2021 History of Any Multi-Drug Resistant Organisms: None Reported Past Surgical History: Appendectomy, Cholecystectomy, Ear Surgery, Heart Catheterization, Hysterectomy, Joint Replacement, Orthopedic Surgery, Tonsillectomy Additional Past Surgical History / Comment(s): R/L knee arthroscopies, L ear patch/graft, EGD, colonoscopy/polypectomy, throat abscess. Right knee replacement, back surgery, Past Anesthesia/Blood Transfusion Reactions: Postoperative Nausea & Vomiting (PONV) Past Psychological History: Anxiety Smoking Status: Never smoker Past Alcohol Use History: None Reported Past Drug Use History: None Reported - Past Family History Father Family Medical History: Cancer Additional Family Medical History / Comment(s): Throat, brain cancer. Father was an alcoholic. Mother Family Medical History: Liver Disease Additional Family Medical History / Comment(s): Mother is . She was an alcoholic. General Exam General appearance: alert, anxious, in distress Head exam: Present: atraumatic, normocephalic, normal inspection Eye exam: Present: normal appearance, PERRL, EOMI. Absent: scleral icterus, conjunctival injection, periorbital swelling ENT exam: Present: normal exam, mucous membranes moist Neck exam: Present: normal inspection. Absent: tenderness, meningismus, lymphadenopathy Respiratory exam: Present: normal lung sounds bilaterally. Absent: respiratory distress, wheezes, rales, rhonchi, stridor Cardiovascular Exam: Present: regular rate, normal rhythm, normal heart sounds. Absent: systolic murmur, diastolic murmur, rubs, gallop, clicks GI/Abdominal exam: Present: soft, normal bowel sounds. Absent: distended, tende rness, guarding, rebound, rigid Extremities exam: Present: normal inspection, full ROM, normal capillary refill. Absent: tenderness, pedal edema, joint swelling, calf tenderness Back exam: Present: normal inspection Neurological exam: Present: alert, oriented X3, CN II-XII intact Psychiatric exam: Present: normal affect, normal mood Skin exam: Present: warm, dry, intact, normal color. Absent: rash Course Vital Signs 02/02/21 05:18 Temperature 98.9 F Pulse Rate 109 H Respiratory 19 Rate Blood Pressure 111/85 O2 Sat by Pulse 96 Oximetry - Reevaluation(s) Reevaluation #1: 02/02/21 05:47 Medical record is reviewed Reevaluation #2: 02/02/21 06:47 Patient has adequate pain control currently Reevaluation #3: 02/02/21 06:48 Patient is informed of results and questions are answered Medical Decision Making - Medical Decision Making 65 female to be admitted for pain control of acute on chronic back pain emotional support and possible placement issues unfit to live by herself Disposition Clinical Impression: Lumbar stenosis, Mechanical back pain, Mid back pain, Intractable back pain Disposition: ADMITTED IP TO THIS HOSP Condition: Fair Is patient prescribed a controlled substance at d/c from ED?: No Referrals: Tavo Lisa MD [Primary Care Provider] - 1-2 days
[2021-02-02] MEDS ORDERED: SODIUM CHLORIDE 0.9% 1,000 ML IV STA (05:42)
[2021-02-02] MEDS ORDERED: LORazepam 2 MG/ML INJ IV STA (05:43)
[2021-02-02] MEDS ORDERED: KETOROLAC 15 MG/ML 1 ML VIAL IVP STA (05:43)
[2021-02-02] MEDS ORDERED: diphenhydrAMINE 50 MG/ML 1 ML VIAL IVP PRN (05:43)
[2021-02-02] MEDS ORDERED: HYDROmorphone 1 MG/ML 1 ML SYRINGE IVP STA (05:43)
[2021-02-02] MEDS ORDERED: LORazepam 2 MG/ML INJ IV PRN (05:43)
[2021-02-02 06:15] LABS: Basophils % (A) 1 %; Eosinophils # (A) 0.4 k/uL (0-0.7); Eosinophils % (A) 6 %; HGB 10.8 gm/dL (11.4-16.0); Hypochromasia Slight; Lymphocytes # (A) 1.2 k/uL (1.0-4.8); Lymphocytes % (A) 17 %; MCH 31.1 pg (25.0-35.0); MCHC 32.7 g/dL (31.0-37.0); MCV 94.9 fL (80.0-100.0); Monocytes # (A) 0.5 k/uL (0-1.0); Monocytes % (A) 8 %; Neutrophils # (A) 4.6 k/uL (1.3-7.7); Neutrophils % (A) 66 %; Platelet Count 208 k/uL (150-450); Poikilocytosis Slight; RBC 3.48 m/uL (3.80-5.40); RDW 14.4 % (11.5-15.5); WBC 6.9 k/uL (3.8-10.6)
[2021-02-02 06:32] LABS: Calcium 9.9 mg/dL (8.4-10.2); Total Bilirubin 0.8 mg/dL (0.2-1.3)
[2021-02-02 06:37] LABS: Magnesium 1.6 mg/dL (1.6-2.3); Phosphorus 4.2 mg/dL (2.5-4.5); Potassium 4.7 mmol/L (3.5-5.1)
[2021-02-02 06:38] LABS: Albumin 3.7 g/dL (3.5-5.0); Total Protein 6.5 g/dL (6.3-8.2)
[2021-02-02] MEDS ORDERED: guaiFENesin SYRUP 100MG/5ML 200 MG/10 ML CUP PO PRN (12:07)
[2021-02-02] MEDS ORDERED: LORATADINE 10 MG TAB PO PRN (12:07)
[2021-02-02] MEDS: HYDROmorphone 1 MG/ML 1 ML SYRINGE IVP PRN (16:24)
--- NOTE | 2021-02-02 16:56 | P.CNPUL ---
History of Present Illness Consult date: 02/02/21 Reason for consult: COPD Chief complaint: Back pain History of present illness: This is a 65-year-old female with history of chronic back pain history of recent COVID-19 pneumonia, patient has been recently positive a she came into the hospital to visit as he was made comfort care due to severe back pain and decided to stay in the hospital, currently patient is being evaluated for back pain with a history of recent surgery, past medical history significant for COPD, recent COVID-19 infection, hypertension hypertensive cardiovascular disease, type 2 diabetes mellitus, congestive heart failure related to diastolic heart failure chronic, chronic back pain, insulin-requiring type 2 diabetes mellitus,, patient denies any chest pain shortness of breath denies any cough or sputum production denies any fever or chills, denies any diarrhea and loose stool, denies any other bladder related problem, in emergency department CBC within normal limit, sodium was 136 BUN/creatinine 21.9, sugar is 193, chest x- ray are not done Review of Systems All systems: negative Past Medical History Past Medical History: Asthma, Coronary Artery Disease (CAD), COPD, Diabetes Mellitus, Deep Vein Thrombosis (DVT), GERD/Reflux, Hyperlipidemia, Hypertension, Musculoskeletal Disorder, Osteoarthritis (OA), Renal Disease, Sleep Apnea/CPAP/BIPAP Additional Past Medical History / Comment(s): PUD, colitis, benign colon polyps, DVT L leg, migraines, ANDREW - uses cpap. kidney stones, CKD stage II, vertigo, recurrent L ear infections/ruptured eardrum, TMJ, mild CAD, back prob - NT Lt arm, leg. Edema BLE. covid + 01/19/2021 History of Any Multi-Drug Resistant Organisms: None Reported Past Surgical History: Appendectomy, Cholecystectomy, Ear Surgery, Heart Catheterization, Hysterectomy, Joint Replacement, Orthopedic Surgery, Tonsillectomy Additional Past Surgical History / Comment(s): R/L knee arthroscopies, L ear patch/graft, EGD, colonoscopy/polypectomy, throat abscess. Right knee replacement, back surgery, Past Anesthesia/Blood Transfusion Reactions: Postoperative Nausea & Vomiting (PONV) Past Psychological History: Anxiety Smoking Status: Never smoker Past Alcohol Use History: None Reported Past Drug Use History: None Reported - Past Family History Father Family Medical History: Cancer Additional Family Medical History / Comment(s): Throat, brain cancer. Father was an alcoholic. Mother Family Medical History: Liver Disease Additional Family Medical History / Comment(s): Mother is . She was an alcoholic. Medications and Allergies Home Medications Medication Instructions Recorded Confirmed Type Losartan [Cozaar] 50 mg PO DAILY 07/16/19 02/02/21 History Glimepiride [Amaryl] 1 mg PO BID 10/17/20 02/02/21 History Montelukast [Singulair] 10 mg PO HS 10/17/20 02/02/21 History Loratadine 10 mg PO DAILY PRN 11/19/20 02/02/21 History Aspirin EC [Ecotrin Low Dose] 81 mg PO HS 12/29/20 02/02/21 History Bumetanide [BUMEX] 0.5 mg PO DAILY 12/29/20 02/02/21 History Potassium Chloride [K-Tab ER] 8 meq PO DAILY 12/29/20 02/02/21 History Cyclobenzaprine [Flexeril] 10 mg PO BID 01/14/21 02/02/21 History Sennosides/Docusate Sodium [Senna 1 cap PO DAILY 01/14/21 02/02/21 History Plus 8.6-50 mg Softgel] Enoxaparin [Lovenox] 40 mg SQ DAILY syringe 01/19/21 02/02/21 Rx INSULIN ASPART (NovoLOG) [NovoLOG See Protocol SQ ACHS 01/19/21 02/02/21 History (formulary)] oxyCODONE HCL [OxyIR] 5 mg PO Q6H PRN #12 tab 01/19/21 02/02/21 Rx Gabapentin 300 mg PO TID 02/02/21 02/02/21 History Insulin Detemir (Levemir) [Levemir] 20 unit SQ DAILY 02/02/21 02/02/21 History guaiFENesin [guaiFENesin Oral 100 mg PO Q4H PRN 02/02/21 02/02/21 History Solution] Allergies Allergy/AdvReac Type Severity Reaction Status Date / Time Iodinated Contrast Media Allergy Severe Anaphylaxis Verified 02/02/21 10:14 [Iodinated Contrast Media - IV Dye] iodine Allergy Anaphylaxis Verified 02/02/21 10:14 Ozwkuvq-Ozx-Lyc Reductase Allergy Anaphylaxis Verified 02/02/21 10:14 Inhibitor Physical Exam Vitals: Vital Signs Temp Pulse Resp BP Pulse Ox 02/02/21 16:00 96 20 130/64 99 02/02/21 12:00 98 20 112/76 98 02/02/21 08:04 112 H 18 146/68 97 02/02/21 05:18 98.9 F 109 H 19 111/85 96 Intake and Output 02/02/21 02/02/21 02/02/21 06:59 14:59 22:59 Other: Weight 95.254 kg - Constitutional General appearance: average body habitus, mild distress - EENT Eyes: EOMI, PERRLA ENT: hearing grossly normal Ears: bilateral: normal - Neck Carotids: bilateral: upstroke normal Thyroid: bilateral: normal size - Respiratory Respiratory: bilateral: CTA - Cardiovascular Rhythm: regular Heart sounds: normal: S1, S2 - Gastrointestinal General gastrointestinal: normal bowel sounds, soft - Integumentary Integumentary: normal - Neurologic Neurologic: CNII-XII intact - Musculoskeletal Musculoskeletal: generalized weakness, strength equal bilaterally - Psychiatric Psychiatric: A&O x's 3, appropriate affect, intact judgment & insight Results - Laboratory Findings CBC and BMP: 02/02/21 06:00 02/02/21 06:00 Abnormal lab findings: Abnormal Labs 02/02/21 02/02/21 06:00 06:00 RBC 3.48 L Hgb 10.8 L Hct 33.0 L Sodium 136 L Carbon Dioxide 21 L BUN 21 H Glucose 193 H Assessment and Plan Assessment: Baseline COPD appear not to be an exacerbation Back pain chronic in nature awaiting further evaluation Recent COVID-19 infection Recent back surgery Type 2 diabetes mellitus Hypertension hypertensive cardiovascular disease Plan: Continue back pain management and pain meds and Bronchodilators as needed We'll order a chest x-ray Further recommendations pending plan of care as per clinical response of the patient Time with Patient: Greater than 30
--- NOTE | 2021-02-02 18:21 | XR ---
EXAMINATION TYPE: XR chest 1V DATE OF EXAM: 02/02/2021 COMPARISON: 01/19/2021 HISTORY: Difficulty breathing TECHNIQUE: 2 views FINDINGS: Heart and mediastinum are normal. There is a 1 cm poorly marginated area of increased densi ty over the left upper lobe laterally. This is superimposed on the scapula. There is no pleural effus ion there is slight elevation of the right diaphragm. There are no hilar masses. There is small linea r density left lung base. IMPRESSION: There is subsegmental atelectasis left lung base. Slight elevated right diaphragm. Small infiltrate left upper lobe. Lung abnormalities essentially new compared to old exam.
[2021-02-02] MEDS: GABAPENTIN 300 MG CAP PO SCH ×2 (19:08→22:15)
[2021-02-02] MEDS: IPRATROPIUM-ALBUTEROL 3 ML NEB INHALATION SCH (19:43)
[2021-02-02] MEDS ORDERED: CYCLOBENZAPRINE 10 MG TAB PO SCH (21:00)
[2021-02-02 21:02] LABS: Glucose,Whole Blood 204 mg/dL (75-99)
[2021-02-02] MEDS: MONTELUKAST 10 MG TAB PO SCH (22:15)
[2021-02-02] MEDS: ASPIRIN 81 MG PO SCH (22:15)
[2021-02-02] MEDS: GLIMEPIRIDE 1 MG TAB PO SCH (22:15)
[2021-02-03] MEDS: AZITHROMYCIN 500 MG in SODIUM CHLORIDE 0.9% 250 ML IVPB SCH ×2 (00:39→22:57)
--- NOTE | 2021-02-03 02:56 | HP ---
HISTORY AND PHYSICAL HISTORY OF PRESENT ILLNESS: 65-year-old white female, chronic back pain, recent Covid 19 pneumonia. She came to the hospital. She was in the residential for the back pain. She signed out AMA because her was dying in the Hospital. She fell getting out of a car. She is complaining of left hip pain, COPD, Covid 19, cardiovascular disease, diabetes mellitus, congestive heart failure, diastolic heart failure, type 2 diabetes mellitus. Denies any diarrhea and loose stool. She was admitted. Sodium was 136, BUN and creatinine was 21 and 0.9, sugar 193. Chest x-ray is negative. REVIEW OF SYMPTOMS: 14 point review of system is negative. PAST MEDICAL HISTORY: Coronary artery disease, asthma, COPD, diabetes mellitus, DVT, GERD, hypertension, dyslipidemia, osteoarthritis, renal disease, sleep apnea, colitis, benign polyps, DVT of the leg, chronic kidney disease, vertigo. PAST SURGICAL HISTORY: Appendectomy, cholecystectomy, ear surgery, heart catheterization, joint replacement, orthopedic surgery, tonsillectomy. FAMILY HISTORY: Father with cancer, brain, cancer of the throat. Father alcoholic. Mother liver disease. HOME MEDICATIONS: Cozaar 50 daily, Amaryl 1 mg b.i.d., singular 10 mg daily, loratadine 10 mg daily, aspirin 81 mg daily, potassium chloride 8 mEq daily, Oxy IR 5 mg q.6h p.r.n., gabapentin 300 t.i.d., insulin 20 units daily, Levemir, Flexeril 10 mg b.i.d. PHYSICAL EXAMINATION: Vital signs: Pulse is 112 to 90s, respiratory 18-20, temp 98.9, blood pressure 110 to 140 over 60s to 70s, O2 96 to 98%. Cardiovascular S1, S2. GI soft. Hematology negative Homans. Psych: Fair mood and affect. Neurologic: Alert and orient x3. Ophthalmologic: Pupils equal, round, reactive. Integument: No rash. Labs reviewed. ASSESSMENT: 1. Baseline chronic obstructive pulmonary disease. 2. Chronic thoracic back pain, hip pain. 3. Covid 19 infection. 4. Recent back surgery. 5. Type 2 diabetes mellitus. 6. Hypertensive heart disease, possible diastolic heart failure with increased edema. We will rehydrate her, get diuretics, work on bronchodilators. Prognosis is guarded. MMODL / IJN: [id number] /
[2021-02-03] MEDS: IPRATROPIUM-ALBUTEROL 3 ML NEB INHALATION SCH ×4 (07:30→20:38)
[2021-02-03] MEDS: GABAPENTIN 300 MG CAP PO SCH ×3 (07:38→22:57)
[2021-02-03] MEDS: POTASSIUM CHLORIDE ER 10 MEQ TAB.ER.PRT PO SCH (07:39)
[2021-02-03] MEDS: GLIMEPIRIDE 1 MG TAB PO SCH ×2 (07:39→22:57)
[2021-02-03] MEDS: SENNOSIDES-DOCUSATE SODIUM 1 EACH TAB PO SCH (07:39)
[2021-02-03] MEDS: ENOXAPARIN 40 MG/0.4 ML SYRINGE SQ SCH (07:41)
[2021-02-03] MEDS: BUMETANIDE 1 MG TAB PO SCH ×2 (07:41→17:46)
[2021-02-03] MEDS: INSULIN DETEMIR (LEVEMIR) 100 UNIT/ML SYR SQ SCH (07:42)
[2021-02-03 07:44] LABS: Glucose,Whole Blood 118 mg/dL (75-99)
[2021-02-03] MEDS: LOSARTAN 50 MG TAB PO SCH (07:44)
[2021-02-03] MEDS ORDERED: BUMETANIDE 0.5 MG TABLET PO SCH (09:00)
[2021-02-03 09:19] LABS: Glucose,Whole Blood 121 mg/dL (75-99)
[2021-02-03 09:27] LABS: Basophils # (A) 0.03 X 10*3/uL (0.00-0.10); Basophils % (A) 0.4 %; Eosinophils # (A) 0.42 X 10*3/uL (0.04-0.35); Eosinophils % (A) 6.1 %; HGB 9.3 g/dL (12.0-15.0); Lymphocytes # (A) 1.47 X 10*3/uL (0.90-5.00); Lymphocytes % (A) 21.5 %; MCH 30.1 pg (27.0-32.0); MCV 97.1 fL (80.0-97.0); Mean Platelet Volume 11.2 fL (9.5-12.2); Monocytes # (A) 0.62 X 10*3/uL (0.20-1.00); Monocytes % (A) 9.1 %; Neutrophils # (A) 4.27 X 10*3/uL (1.80-7.70); Neutrophils % (A) 62.3 %; Platelet Count 198 X 10*3/uL (140-440); RBC 3.09 X 10*6/uL (4.10-5.20); RDW 13.3 % (11.5-14.5); WBC 6.85 X 10*3/uL (4.50-10.00)
--- NOTE | 2021-02-03 10:09 | CT ---
EXAMINATION TYPE: CT brain wo con for TPA DATE OF EXAM: 02/03/2021 COMPARISON: 11/28/2020 HISTORY: TIA CT DLP: [address] of the brain was performed. The ventricles, basal cisterns and sulci overlying the cerebral convexities demonstrate mild enlargem ent. There is no evidence for intracranial hemorrhage or sulcal effacement. There is decreased attenuation about the periventricular white matter and deep white matter of both c erebral hemispheres, compatible with chronic small vessel ischemia. Differential diagnosis does inclu de demyelination. No mass effects are seen.No midline shift. Osseous calvarium is intact. If symptoms persist consider MRI. IMPRESSION: 1. Age related atrophic and chronic small vessel ischemic change without acute intracranial process s een at this time.
--- NOTE | 2021-02-03 10:21 | CT ---
EXAMINATION TYPE: CT hip LT wo con DATE OF EXAM: 02/03/2021 COMPARISON: None HISTORY: Lt hip CT DLP: 347 mGycm Automated exposure control for dose reduction was used. Unenhanced CT of the left hip was performed w ith bone and soft tissue window settings submitted. Images are reviewed in the axial coronal and sagi ttal planes. FINDINGS: There is no evidence for displaced or impacted fracture of the left hip. No evidence for dislocation. No osseous lesion evident. Visualized pelvis is grossly unremarkable. Soft tissues are within normal limits. IMPRESSION: NO EVIDENCE FOR DISPLACED FRACTURE OR DISLOCATION.
--- NOTE | 2021-02-03 11:12 | CDI ---
Documentation Clarification Form Date: 02/03/2021 10:54:57 AM From: Evette Reyna RN CCDS Admit Date: 02/02/2021 02:30:00 PM Patient Name: Shalonda Smalls Visit Number: [id number] Discharge Date: ATTENTION: The Clinical Documentation Specialists (CDI) and [facility] Coding Staff appreciate your assistance in clarifying documentation. Please respond to the clarification below the line at the bottom and electronically sign. The CDI & [facility] Coding staff will review the response and follow-up if needed. Please note: Queries are made part of the Legal Health Record. If you have any questions, please contact the author of this message via ITS. Dr. Tavo Lisa Your patient has the documented diagnosis of unspecified CHF 02/02, H&P. Additional information regarding the acuity of CHF is requested. History/Risk Factors: 65-year-old female presents to the ED after she fell out of a car, having left hip pain. Medical history: COPD, COVID 19, CAD, DM and CHF. 02/02 H&P. Clinical Indicators: 02/02, H&P Hypertensive heart disease, possible diastolic heart failure with increased edema. VS/Pulse OX: 02/02 B/P 111/85; HR 109; Temp 98.9 F Oral; RR 19; SpO2 96% ra Echocardiogram Results: 12/01/2020 Borderline concentric left ventricular hypertrophy. Overall left ventricular systolic function is normal with, an EF 60-65%. Mild mitral annular calcification. Mild tricuspid regurgitation. Chest X Ray: 02/02 Subsegmental atelectasis left lung base. Slight elevated right diaphragm. Small infiltrate left upper lobe. Treatment: 02/03 to current Bumex 1mg PO BID AMPARO. In your professional opinion, can you please clarify the [acuity and type] of CHF if known? [ ] Chronic Diastolic Heart Failure (preserved EF) [ ] Acute on Chronic Diastolic Heart Failure (preserved EF) [ ] Other, please specify [ ] Unable to determine (Template Last Revised: July 2020) MTDD
--- NOTE | 2021-02-03 11:12 | US ---
EXAMINATION TYPE: US carotid duplex BILAT DATE OF EXAM: 02/03/2021 COMPARISON: NONE CLINICAL HISTORY: Acute stroke. EXAM MEASUREMENTS: RIGHT: Peak Systolic Velocity (PSV) cm/sec ----- Right CCA: 120.0 ----- Right ICA: 121.0 ----- Right ECA: 106.0 ICA/CCA ratio: 1.01 RIGHT: End Diastole cm/sec ----- Right CCA: 33.8 ----- Right ICA: 40.9 ----- Right ECA: 16.2 LEFT: Peak Systolic Velocity (PSV) cm/sec ----- Left CCA: 125.0 ----- Left ICA: 125.0 ----- Left ECA: 125.0 ICA/CCA ratio: 1.00 LEFT: End Diastole cm/sec ----- Left CCA: 31.2 ----- Left ICA: 27.3 ----- Left ECA: 11.0 VERTEBRALS (direction of flow): Right Vertebral: Antegrade Left Vertebral: Antegrade Rhythm: Normal No significant stenosis seen. IMPRESSION: No evidence for hemodynamically significant stenosis. NASCET criteria was used in interpretation of this exam? Criteria for Assigning % of Stenosis / Diameter reduction (Estimation based on the indirect measurements of the internal carotid artery velocities (ICA PSV). 1. Normal (no stenosis)=ICA PSV < 125 cm/s: ratio < 2.0: ICA EDV<40 cm/s. 2. Less than 50% stenosis=ICA PSV < 125 cm/s: ratio < 2.0: ICA EDV<40 cm/s. 3. 50 to 69% stenosis=ICA PSV of 125 to 230 cm/s: ration 2.0 ? 4.0: ICA EDV 40-100 cm/s. 4. Greater than 70% stenosis to near occlusion= ICA PSV > 230 cm/s: ratio > 4.0: ICA EDV > 100 cm/s. 5. Near occlusion= ICA PSV velocities may be low or undetectable: variable ratio and ICA EDV. 6. Total occlusion=unable to detect flow.
[2021-02-03 11:14] LABS: Basophils % (A) 1 %; Eosinophils # (A) 0.4 k/uL (0-0.7); Eosinophils % (A) 6 %; HCT 30.9 % (34.0-46.0); HGB 10.1 gm/dL (11.4-16.0); Hypochromasia Slight; Lymphocytes # (A) 1.2 k/uL (1.0-4.8); Lymphocytes % (A) 19 %; MCH 31.1 pg (25.0-35.0); MCHC 32.8 g/dL (31.0-37.0); MCV 94.8 fL (80.0-100.0); Mean Platelet Volume 8.2; Monocytes # (A) 0.4 k/uL (0-1.0); Monocytes % (A) 5 %; Neutrophils # (A) 4.3 k/uL (1.3-7.7); Neutrophils % (A) 67 %; Platelet Count 200 k/uL (150-450); Poikilocytosis Slight; RBC 3.26 m/uL (3.80-5.40); RDW 14.2 % (11.5-15.5); WBC 6.4 k/uL (3.8-10.6)
[2021-02-03 11:28] LABS: ALT 18 U/L (4-34); AST 21 U/L (14-36); African American GFR (CKD) 74 (>60 ml/min/1.73 sqM); Albumin 3.2 g/dL (3.5-5.0); Albumin/Globulin Ratio 1.2; Alkaline Phosphatase 87 U/L (38-126); Anion Gap 7 mmol/L; Blood Urea Nitrogen 25 mg/dL (7-17); Calcium 9.5 mg/dL (8.4-10.2); Carbon Dioxide 27 mmol/L (22-30); Chloride 103 mmol/L (98-107); Globulin 2.7 g/dL; Glucose 114 mg/dL (74-99); Non-African American GFR(CKD) 64 (>60 ml/min/1.73 sqM); Potassium 4.1 mmol/L (3.5-5.1); Sodium 137 mmol/L (137-145); Total Bilirubin 0.7 mg/dL (0.2-1.3); Total Protein 5.9 g/dL (6.3-8.2)
--- NOTE | 2021-02-03 11:37 | P.CNNES ---
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 Patient has acute on chronic severe back pain. Patient has recent medical history including back surgery a month ago. Patient left her extended care facility to be with her dying including family and was unable to return to the rehab facility. Patient tried to go home was unable to ambulate and bear her weight on her feet. Patient states that they were trying to get her out of the car and she fell. Therefore she was brought to the hospital. Patient was admitted for pain control of acute on chronic back pain, emotional support and possible placement issues. Patient had a stroke code activated today, when she was noted to have left-sided weakness. I spoke to the nurse, who states that when she came this morning, patient was sleeping. Patient does have obstructive sleep apnea, was not using her CPAP machine here in the hospital. When the nurse returned back to check on her and to give medication, patient was lethargic, slurring her words, and was not able to get up with significant left leg weakness. She was not able to hold her trunk and was falling back. The nurse also noticed some possible left-sided arm drift and some sensory change. Because of constellation of the symptoms, stroke code was initiated. Stat computed tomography scan of the head was done, which revealed age-related atrophic and chronic small vessel ischemic changes without acute intracranial process. CTA could not be performed because of iodinated contrast media ALLERGY. Patient also ALLERGY to statins it appears. Stat carotid Doppler was performed, which revealed no significant stenosis, with antegrade flow in both vertebral arteries. Patient seen by me, has no focal deficits. Her left leg weakness is likely from back surgery. Patient admits to having headache involving bifrontal region which she believes is from sinus problem. Patient states that she has felt a few times. She believes that she does not have a stroke. Patient states that she was able to take 8 steps and transfer to bed, but not able to do that at this point. She cannot move her left leg, has to manually move it. Patient had been seen by Dr. Matt Chavarria in the past. The last time in November 2020 she had an episode of blurred vision, confusion, slurred speech. Possible TIA was suspected. Other possibility included encephalopathy, metabolic, medication use and from severe obstructive sleep apnea not using CPAP machine. Patient does have diabetes, hypertension, history of DVT. Patient had an MRI of the brain without contrast recently on 12/03/2020 which showed no suspicious abnormality to account for patient's symptoms. No acute infarcts. Some mild diffuse white matter changes may be present. Patient was placed on aspirin regimen. At present patient is also on Lovenox 40 mg subcu daily for DVT prophy laxis. Review of Systems As above in detail. Has chronic back pain. Has some shortness of breath. No double vision, loss of vision. No slurred speech at this time. No facial droop. No chest pain. Patient has arthritis, back pain. Leg weakness. No problems with control of urine. Past Medical History Past Medical History: Asthma, Coronary Artery Disease (CAD), COPD, Diabetes Mellitus, Deep Vein Thrombosis (DVT), GERD/Reflux, Hyperlipidemia, Hypertension, Musculoskeletal Disorder, Osteoarthritis (OA), Renal Disease, Sleep Apnea/CPAP/BIPAP Additional Past Medical History / Comment(s): PUD, colitis, benign colon polyps, DVT L leg, migraines, ANDREW - uses cpap. kidney stones, CKD stage II, vertigo, recurrent L ear infections/ruptured eardrum, TMJ, mild CAD, back prob - NT Lt arm, leg. Edema BLE. covid + 01/19/2021 History of Any Multi-Drug Resistant Organisms: None Reported Past Surgical History: Appendectomy, Cholecystectomy, Ear Surgery, Heart Catheterization, Hysterectomy, Joint Replacement, Orthopedic Surgery, Tonsillectomy Additional Past Surgical History / Comment(s): R/L knee arthroscopies, L ear patch/graft, EGD, colonoscopy/polypectomy, throat abscess. Right knee replacement, back surgery, Past Anesthesia/Blood Transfusion Reactions: Postoperative Nausea & Vomiting (PONV) Past Psychological History: Anxiety Smoking Status: Never smoker Past Alcohol Use History: None Reported Past Drug Use History: None Reported - Past Family History Father Family Medical History: Cancer Additional Family Medical History / Comment(s): Throat, brain cancer. Father was an alcoholic. Mother Family Medical History: Liver Disease Additional Family Medical History / Comment(s): Mother is . She was an alcoholic. Medications and Allergies Home Medications Medication Instructions Recorded Confirmed Type Losartan [Cozaar] 50 mg PO DAILY 07/16/19 02/02/21 History Glimepiride [Amaryl] 1 mg PO BID 10/17/20 02/02/21 History Montelukast [Singulair] 10 mg PO HS 10/17/20 02/02/21 History Loratadine 10 mg PO DAILY PRN 11/19/20 02/02/21 History Aspirin EC [Ecotrin Low Dose] 81 mg PO HS 12/29/20 02/02/21 History Bumetanide [BUMEX] 0.5 mg PO DAILY 12/29/20 02/02/21 History Potassium Chloride [K-Tab ER] 8 meq PO DAILY 12/29/20 02/02/21 History Cyclobenzaprine [Flexeril] 10 mg PO BID 01/14/21 02/02/21 History Sennosides/Docusate Sodium [Senna 1 cap PO DAILY 01/14/21 02/02/21 History Plus 8.6-50 mg Softgel] Enoxaparin [Lovenox] 40 mg SQ DAILY syringe 01/19/21 02/02/21 Rx INSULIN ASPART (NovoLOG) [NovoLOG See Protocol SQ ACHS 01/19/21 02/02/21 History (formulary)] oxyCODONE HCL [OxyIR] 5 mg PO Q6H PRN #12 tab 01/19/21 02/02/21 Rx Gabapentin 300 mg PO TID 02/02/21 02/02/21 History Insulin Detemir (Levemir) [Levemir] 20 unit SQ DAILY 02/02/21 02/02/21 History guaiFENesin [guaiFENesin Oral 100 mg PO Q4H PRN 02/02/21 02/02/21 History Solution] Allergies Allergy/AdvReac Type Severity Reaction Status Date / Time Iodinated Contrast Media Allergy Severe Anaphylaxis Verified 02/02/21 10:14 [Iodinated Contrast Media - IV Dye] iodine Allergy Anaphylaxis Verified 02/02/21 10:14 Chtpeir-Ygm-Cte Reductase Allergy Anaphylaxis Verified 02/02/21 10:14 Inhibitor Physical Examination - Vital Signs Vital Signs: Vital Signs Temp Pulse Pulse Resp BP BP Pulse Ox 02/03/21 07:40 104 H 02/03/21 07:30 104 H 02/03/21 07:00 98.6 F 77 16 120/76 97 02/03/21 02:00 97.7 F 97 16 92/63 97 02/02/21 21:11 97.6 F 103 H 18 89/56 94 L 02/02/21 19:54 102 H 02/02/21 19:43 110 H 02/02/21 16:00 96 20 130/64 99 02/02/21 12:00 98 20 112/76 98 Intake and Output 02/02/21 02/03/21 02/03/21 22:59 06:59 14:59 Other: Voiding Method Toilet # Voids 1 1 On examination patient is an elderly female, in no acute distress. She is slightly groggy. She is fully oriented. She knows it is January 2021 and that she is in [place] in [place]. She states the current president is "idiot", the "puppet".. She was able to tell it is Mr. Mehta. Speech is mildly slurred, probably obturation of dry mouth, and her baseline speech because of relatively large tongue, with high Mallampati score from sleep apnea. Patient was able to name all objects, repeat. No aphasia and no dysarthria. Attention, concentration and fund of knowledge is adequate. On cranial examination, pupils are round and reacting to light, visual rowe are full on confrontation, extraocular muscles are intact with no nystagmus. Face is symmetric, tongue protrudes to the midline. Palatal elevation and sensation normal, hearing and shoulder shrug normal, facial sensation normal. Shoulder shrug normal. On muscle strength testing, there is no pronator drift and the strength is normal in arms distally and proximally. In the lower extremities, her hip flexion is about 3+ to 4 on the right, cannot perform on the left because of pain. Ankle is normal on the right, she has a footdrop on the left. Deep tendon reflexes are 1 in the upper limbs, 0 in the lower limbs and plantars downgoing. Sensory to touch is equal with no neglect on double simultaneous stimulation in the arms and legs. Cerebellar function showed no ataxia for [id number] testing. No dysdiadochokinesia. Tone and bulk of muscles normal. Gait not checked. On general examination, there is no carotid bruit or murmur, S1-S2 audible. Abdomen is soft nontender. Chest is clear. Peripheral pulses are present. No edema. Results - Laboratory Findings CBC and BMP: 02/03/21 10:38 02/03/21 10:38 Abnormal Lab Findings: Abnormal Labs 02/02/21 02/02/21 02/02/21 06:00 06:00 21:01 RBC 3.48 L Hgb 10.8 L Hct 33.0 L MCV MCHC Eosinophils # Sodium 136 L Carbon Dioxide 21 L BUN 21 H Glucose 193 H POC Glucose (mg/dL) 204 H 02/03/21 02/03/21 02/03/21 06:17 07:42 09:15 RBC 3.09 L Hgb 9.3 L Hct 30.0 L MCV 97.1 H MCHC 31.0 L Eosinophils # 0.42 H Sodium Carbon Dioxide BUN Glucose POC Glucose (mg/dL) 118 H 121 H Assessment and Plan Assessment: * Episode of possible TIA, versus lethargic state due to waking up from sleep, with sleep apnea not using CPAP machine. Current NIH stroke scale is 3, mainly related to left leg weakness. Her left leg weakness is significant, but probably related to her back surgery and radiculopathy. * Diabetes * Hypertension * Obesity * Sleep apnea, on CPAP machine. Plan: * MRI of the brain, rule out acute stroke. MRA of the head, rule out intracranial vascular stenosis. * Carotid Doppler was performed, which revealed no significant stenosis with antegrade flow in both vertebral arteries. * 2-D echo from 12/04/2020 shows normal left-ventricular size. Borderline concentric LVH. EF between 60-65%. Mild mitral annular calcification. * MRI of the lumbar spine from 11/20/2020 shows multilevel degenerative changes in the lumbar spine, greatest at L3 L4 level with encroachment on the central left L4 nerve though present. Findings correlate with patient's symptoms. * Patient feels her left leg is getting weaker. Agree with initiating consultation with orthopedics spine. * Suggest starting telemetry monitoring. * Hemoglobin A1c 6.3 on 01/05/2021 * Lipid panel with cholesterol 174, LDL 99.4, HDL 46 and triglycerides 143. * B12 420, folate 5.6, on replacement. * We will follow.
[2021-02-03 11:48] LABS: INR 1.1 (<1.2); Partial Thromboplastin Time 28.2 sec (22.0-30.0); Prothrombin Time 11.3 sec (9.0-12.0)
[2021-02-03 12:02] LABS: Glucose,Whole Blood 98 mg/dL (75-99)
[2021-02-03 14:09] LABS: Appearance,Urine Clear (Clear); Bilirubin,Urine Negative (Negative); Blood,Urine Negative (Negative); Color,Urine Yellow; Glucose,Urine (UA) Negative (Negative); Ketones,Urine Negative (Negative); Leukocyte Esterase,Urine Negative (Negative); Nitrite,Urine Negative (Negative); Protein,Urine Negative (Negative); Specific Gravity,Urine 1.017 (1.001-1.035); Urobilinogen,Urine <2.0 mg/dL (<2.0)
--- NOTE | 2021-02-03 14:36 | MR ---
EXAMINATION TYPE: MR brain wo con DATE OF EXAM: 02/03/2021 2:27 PM COMPARISON: 12/03/2020 HISTORY: Recurrent CVA, weakness FINDINGS: The ventricles, basal cisterns and sulci overlying the cerebral convexities are mildly enlarged. There is evidence of mild periventricular white matter ischemic demyelination. Remote deep white matter insults are also noted. No acute edema is seen on diffusion weighted imaging. There is no evidence for midline shift or mass effect. Acute intracranial hemorrhage or extra-axial collection is not evident. The paranasal sinuses and mastoid air cells are well-aerated. IMPRESSION: Age-related atrophic and chronic small vessel ischemic change. No acute intracranial process at this time.
--- NOTE | 2021-02-03 14:39 | MR ---
EXAMINATION TYPE: MR angio head wo con DATE OF EXAM: 02/03/2021 2:27 PM COMPARISON: NONE HISTORY: Recurrent CVA, weakness Three-dimensional [id number] intracranial MRA was performed with multiple intensity projection im ages submitted and source data reviewed at the workstation. The vertebrobasilar system as well as intracranial portions of the internal carotid arteries and thei r major tributaries are patent. I do not see evidence for sizable aneurysm or vascular malformation. IMPRESSION: Normal study.
--- NOTE | 2021-02-03 15:54 | P.CNOR ---
History of Present Illness - [facility] Consult date: 02/03/21 Consult reason: low back pain History of present illness: Miss Hicks is well-known to me she presents with complaints of left lower extremity pain as well as low back pain. She recently had surgery in the form of a laminectomy was performed. She has had weakness since before surgery as well as after surgery and her left lower extremity and this continues. She is also having some radiculopathy related to this. She remains of some hip pain as well. Of note said leaving her is passed through had a long standing history of cancer and she is very sad about this understandably. She is having other symptoms are now no bowel or bladder issues no peroneal numbness or tingling. She has good strength in her right lower extremity. She has good strength in her left lower extremity except for dorsiflexion and EHL which are weak and have been. There is really no other changes at this time. Review of Systems 14 points review of systems completed and as stated in HPI, all other systems reviewed are negative. Past Medical History Past Medical History: Asthma, Coronary Artery Disease (CAD), COPD, Diabetes Mellitus, Deep Vein Thrombosis (DVT), GERD/Reflux, Hyperlipidemia, Hypertension, Musculoskeletal Disorder, Osteoarthritis (OA), Renal Disease, Sleep Apnea/CPAP/BIPAP Additional Past Medical History / Comment(s): PUD, colitis, benign colon polyps, DVT L leg, migraines, ANDREW - uses cpap. kidney stones, CKD stage II, vertigo, recurrent L ear infections/ruptured eardrum, TMJ, mild CAD, back prob - NT Lt arm, leg. Edema BLE. covid + 01/19/2021 History of Any Multi-Drug Resistant Organisms: None Reported Past Surgical History: Appendectomy, Cholecystectomy, Ear Surgery, Heart Catheterization, Hysterectomy, Joint Replacement, Orthopedic Surgery, Tonsillectomy Additional Past Surgical History / Comment(s): R/L knee arthroscopies, L ear patch/graft, EGD, colonoscopy/polypectomy, throat abscess. Right knee replacement, back surgery, Past Anesthesia/Blood Transfusion Reactions: Postoperative Nausea & Vomiting (PONV) Past Psychological History: Anxiety Smoking Status: Never smoker Past Alcohol Use History: None Reported Past Drug Use History: None Reported - Past Family History Father Family Medical History: Cancer Additional Family Medical History / Comment(s): Throat, brain cancer. Father was an alcoholic. Mother Family Medical History: Liver Disease Additional Family Medical History / Comment(s): Mother is . She was an alcoholic. Medications and Allergies Home Medications Medication Instructions Recorded Confirmed Type Losartan [Cozaar] 50 mg PO DAILY 07/16/19 02/02/21 History Glimepiride [Amaryl] 1 mg PO BID 10/17/20 02/02/21 History Montelukast [Singulair] 10 mg PO HS 10/17/20 02/02/21 History Loratadine 10 mg PO DAILY PRN 11/19/20 02/02/21 History Aspirin EC [Ecotrin Low Dose] 81 mg PO HS 12/29/20 02/02/21 History Bumetanide [BUMEX] 0.5 mg PO DAILY 12/29/20 02/02/21 History Potassium Chloride [K-Tab ER] 8 meq PO DAILY 12/29/20 02/02/21 History Cyclobenzaprine [Flexeril] 10 mg PO BID 01/14/21 02/02/21 History Sennosides/Docusate Sodium [Senna 1 cap PO DAILY 01/14/21 02/02/21 History Plus 8.6-50 mg Softgel] Enoxaparin [Lovenox] 40 mg SQ DAILY syringe 01/19/21 02/02/21 Rx INSULIN ASPART (NovoLOG) [NovoLOG See Protocol SQ ACHS 01/19/21 02/02/21 History (formulary)] oxyCODONE HCL [OxyIR] 5 mg PO Q6H PRN #12 tab 01/19/21 02/02/21 Rx Gabapentin 300 mg PO TID 02/02/21 02/02/21 History Insulin Detemir (Levemir) [Levemir] 20 unit SQ DAILY 02/02/21 02/02/21 History guaiFENesin [guaiFENesin Oral 100 mg PO Q4H PRN 02/02/21 02/02/21 History Solution] Allergies Allergy/AdvReac Type Severity Reaction Status Date / Time Iodinated Contrast Media Allergy Severe Anaphylaxis Verified 02/02/21 10:14 [Iodinated Contrast Media - IV Dye] iodine Allergy Anaphylaxis Verified 02/02/21 10:14 [id number] Reductase Allergy Anaphylaxis Verified 02/02/21 10:14 Inhibitor Physical Examination Osteopathic Statement: *. No significant issues noted on an osteopathic structural exam other than those noted in the History and Physical/Consult. PHYSICAL EXAMINATION: Vitals: Stable at this time there was one record of 100.4 Fahrenheit fever General: Awake, alert, appropriate for age, in no acute distress. HEENT: No unusual neck masses around region of lateral neck triangle, thyroid, supraclavicular groove. Heart: Regular rate and rhythm, normal S1, S2 and no murmur/gallop. Lungs: Clear to auscultation bilaterally with no use of accessory muscles. Extremities: Skin warm and dry without no acute lesions, coloration, temperature, skin intact, no tenderness or erythema. Integument: Hairy patches: Absent Dorsal skin dimples: Absent Cafe au lait spots: Absent Surgical incisions: Her posterior midline lumbar incision is well-healed at this time. Palpation: There is no tenderness to palpation around the incision there is no fluctuance felt. There is no tenderness to palpation of her cervical thoracic or lumbar spine midline or paralumbar at this time.] POSTURAL and MUSCULO-SKELETAL EVALUATION: Neck ROM: Unrestricted in six directions Lumbar ROM: Unrestricted in six directions Shoulder ROM: Symmetric in abduction, ER/IR Hip ROM: Symmetric in abduction, adduction, ER/IR Knee ROM: Symmetric and intact in Flexion / extension Hands: Normal appearing structure L and R Feet: Normal appearing structure L and R VASCULAR STATUS : Wrist Pulses: 2/4 bilateral radial and ulnar Pedal Pulses: 2/4 bilateral DP and PT Color: Normal Edema: None NEUROLOGIC EXAMINATION: Mental Status: Awake and alert, fully oriented, with normal attention, concentration and memory, and fluent, appropriate speech. Cranial Nerves: I: Olfactory not tested. II: Visual acuity normal, no visual field deficit noted with confrontation. III,IV: Normal pupillary reflexes & intact extraocular movements without nystagmus. V,: Intact symmetrical facial sensation. VII: Intact symmetrical facial motor movement VIII: Hearing intact. IX,X: Intact gag, swallow, & normal voice. XI: Sternocleidomastoid, trapezius function intact. XII: Tongue midline with normal movements. Special Tests: L'hermitte's Sign: Absent Spurling'Sign: Absent Bilateral Cubital percussion test: Absent Bilateral Frank-Tinel sign - Carpal region: Absent Bilateral Straight Leg Raising: Absent Bilateral Motor Exam (0-5/5, N/T) STRENGTH UPPER EXTREMITY Shoulder Abd (Not part of GERALD Motor score): RIGHT 4+ LEFT 4+ Elbow Flexors: RIGHT 4+ LEFT 4+ Elbow Extensor: RIGHT 4+ LEFT 4+ Wrrist Dorsiflexors: RIGHT 4+ LEFT 4+ Finger Abductor: RIGHT 4+ LEFT 4+ Health Workers: RIGHT 4+ LEFT 4+ LOWER EXTREMITY Hip Flexor (Not part of GERALD Motor Score): RIGHT 4+ LEFT 4- Knee Flexor: RIGHT 4+ LEFT 4+ Knee Extensor: RIGHT 4+ LEFT 4- Ankle Dorsiflexion: RIGHT 4+ LEFT 2 Ankle Plantarflexion: RIGHT 4+ LEFT 4+ EHL: RIGHT 4+ LEFT 2 FHL: RIGHT 4+ LEFT 4+ The patient does have a degree of weakness overall however this is likely secondary to her medical stay deconditioning as well as current medical state. The patient has left lower extremity weakness in dorsiflexion and EHL however this been present since before surgery. I do not feel it has gotten significantly worse since after surgery. She is able to fire EHL as well as tibialis anterior tibialis anterior is weak EHL is stronger on the left-hand side. When prompted the patient can roll to the side and without any help and under her own power with really no issues. REFLEXES Biecp: RIGHT 2 LEFT 2 Tricep: RIGHT 2 LEFT 2 Brachioradialis: RIGHT 2 LEFT 2 Patellar: RIGHT 2 LEFT 2 Achilles: RIGHT 2 LEFT 2 No hyperreflexia noted Pathological Reflexes Mathur's: RIGHT Absent LEFT Absent Babinski: RIGHT Absent LEFT Absent Clonus: RIGHT None LEFT None No myelopathy signs noted SENSORY Joint Position: Intact bilaterally Vibration Intact bilaterally Pain and LT sense Intact C5-T1 and L2-S1 Dermatomal deficit mild L5 dermatomal deficit on the left-hand side still able to feel pressure however fine touch is difficult and she has some tingling to the touch in this area. Gait and Functional Evaluation: Ambulatory aids: Walker Romberg's test: Intact bilaterally. Hand and finger dexterity intact bilaterally. Disdiadochokinesis examination negative bilaterally. Results No new imaging for spine at this time. - Labs Labs: Abnormal Lab Results - Last 24 Hours (Table) 02/02/21 02/03/21 02/03/21 Range/Units 21:01 06:17 07:42 RBC 3.09 L (4.10-5.20) X 10*6/uL Hgb 9.3 L (12.0-15.0) g/dL Hct 30.0 L (37.2-46.3) % MCV 97.1 H (80.0-97.0) fL MCHC 31.0 L (32.0-37.0) g/dL Eosinophils # 0.42 H (0.04-0.35) X 10*3/uL BUN (7-17) mg/dL Glucose (74-99) mg/dL POC Glucose (mg/dL) 204 H 118 H (75-99) mg/dL Total Protein (6.3-8.2) g/dL Albumin (3.5-5.0) g/dL 02/03/21 02/03/21 02/03/21 Range/Units 09:15 10:38 10:38 RBC 3.26 L (4.10-5.20) X 10*6/uL Hgb 10.1 L (12.0-15.0) g/dL Hct 30.9 L (37.2-46.3) % MCV (80.0-97.0) fL MCHC (32.0-37.0) g/dL Eosinophils # (0.04-0.35) X 10*3/uL BUN 25 H (7-17) mg/dL Glucose 114 H (74-99) mg/dL POC Glucose (mg/dL) 121 H (75-99) mg/dL Total Protein 5.9 L (6.3-8.2) g/dL Albumin 3.2 L (3.5-5.0) g/dL H & H 02/02/21 02/03/21 02/03/21 Range/Units 06:00 06:17 10:38 Hgb 10.8 L 9.3 L 10.1 L (11.4-16.0) gm/dL Hct 33.0 L 30.0 L 30.9 L (34.0-46.0) % Coagulation 02/03/21 Range/Units 10:38 INR 1.1 (<1.2) Result Diagrams: 02/03/21 10:38 02/03/21 10:38 Assessment and Plan Assessment: 1. 65 yo female s/p lumbar laminectomy with continued LLE weakness 2. Possible TIA 3. Complex medical history, history of recent family loss Plan: -Appreciate rewards consultant and team management. -Activity: Ambulate QID, OOB all meals, up and about, limit lifting bending twisting to less than 5 lbs. Use walker or cane if needed for stability. -Daily PT/OT, increase ambulation strength and balance. -Pain control: [Adequate at this time] -Meds: [reviewed] -GI ppx: senna, Miralax -DVT PPX: Per primary -Hygiene: Daily showers -Encourage IS 10x/hr -No orthopedic surgical intervention warranted at this time. Defer primary management to medical team as well as neurology
--- NOTE | 2021-02-03 16:38 | P.PN ---
Subjective Progress Note Date: 02/03/21 Principal diagnosis: Baseline COPD appear not to be an exacerbation Back pain chronic in nature awaiting further evaluation Recent COVID-19 infection Recent back surgery Type 2 diabetes mellitus Hypertension hypertensive cardiovascular disease 02/03/2021, patient seen eval examined during the rounds, back pain slightly stable orthotics have been evaluating the patient, patient had extensive imaging studies including head CT which is normal, brain MRI some age-related atrophic changes were seen no acute intracranial process identified, cataract duplex is negative for significant stenosis, mild subsegmental atelectasis seen elevated right diaphragm infiltration upper lobe F site Objective - Vital Signs Vital signs: Vital Signs Temp 98.2 F 02/03/21 14:48 Pulse 102 H 02/03/21 14:48 Resp 18 02/03/21 14:48 BP 119/80 02/03/21 14:48 Pulse Ox 97 02/03/21 14:48 Intake & Output 02/02/21 02/03/21 02/03/21 18:59 06:59 18:59 Output Total 900 Balance -900 Output: Urine 900 Other: Voiding Method Toilet Bedpan # Voids 1 - Exam - Constitutional General appearance: average body habitus, mild distress - EENT Eyes: EOMI, PERRLA ENT: hearing grossly normal Ears: bilateral: normal - Neck Carotids: bilateral: upstroke normal Thyroid: bilateral: normal size - Respiratory Respiratory: bilateral: CTA - Cardiovascular Rhythm: regular Heart sounds: normal: S1, S2 - Gastrointestinal General gastrointestinal: normal bowel sounds, soft - Integumentary Integumentary: normal - Neurologic Neurologic: CNII-XII intact - Musculoskeletal Musculoskeletal: generalized weakness, strength equal bilaterally - Psychiatric Psychiatric: A&O x's 3, appropriate affect, intact judgment & insight - Labs CBC & Chem 7: 02/03/21 10:38 02/03/21 10:38 Labs: Abnormal Lab Results - Last 24 Hours (Table) 02/02/21 02/03/21 02/03/21 Range/Units 21:01 06:17 07:42 RBC 3.09 L (4.10-5.20) X 10*6/uL Hgb 9.3 L (12.0-15.0) g/dL Hct 30.0 L (37.2-46.3) % MCV 97.1 H (80.0-97.0) fL MCHC 31.0 L (32.0-37.0) g/dL Eosinophils # 0.42 H (0.04-0.35) X 10*3/uL BUN (7-17) mg/dL Glucose (74-99) mg/dL POC Glucose (mg/dL) 204 H 118 H (75-99) mg/dL Total Protein (6.3-8.2) g/dL Albumin (3.5-5.0) g/dL 02/03/21 02/03/21 02/03/21 Range/Units 09:15 10:38 10:38 RBC 3.26 L (4.10-5.20) X 10*6/uL Hgb 10.1 L (12.0-15.0) g/dL Hct 30.9 L (37.2-46.3) % MCV (80.0-97.0) fL MCHC (32.0-37.0) g/dL Eosinophils # (0.04-0.35) X 10*3/uL BUN 25 H (7-17) mg/dL Glucose 114 H (74-99) mg/dL POC Glucose (mg/dL) 121 H (75-99) mg/dL Total Protein 5.9 L (6.3-8.2) g/dL Albumin 3.2 L (3.5-5.0) g/dL Assessment and Plan Assessment: Left upper lobe pneumonia Baseline COPD appear not to be an exacerbation Back pain chronic in nature awaiting further evaluation Recent COVID-19 infection Recent back surgery Type 2 diabetes mellitus Hypertension hypertensive cardiovascular disease Plan: Patient on bronchodilator and Zithromax follow closely Continue back pain management and pain meds and Bronchodilators as needed Reviewed chest x-ray Further recommendations pending plan of care as per clinical response of the patient Time with Patient: Greater than 30
--- NOTE | 2021-02-03 17:21 | CONS ---
CONSULTATION HISTORY OF PRESENT ILLNESS: I was asked to see the patient mainly because of concern that she may have atrial fibrillation. This lady was admitted to the hospital because of having had a fall at home. About a month ago she had a back surgery and was recovering in rehab, then went home to see her who was not doing well and then had difficulty moving around and had a fall and was brought into the hospital. While she was here, the nurse noted that her left upper extremity was somewhat weaker and she was having some slurred speech and a CODE STROKE was called. She was seen and evaluated by Dr. Moore from Neurology and it appears that there is no clear-cut neurological deficit. She has weakness in both her lower extremities, but that has been there since her surgery. I do not appreciate any left upper extremity weakness. There is a question of TIA, but patient appears to be more lethargic than anything else. She has underlying sleep apnea as well. She has diabetes, hypertension, hyperlipidemia. On evaluating on clinical axis, her rhythm has been sinus throughout. There is no evidence of any atrial fibrillation. She is resting comfortably. Answers questions. Complains of weakness in both lower extremities since her back surgery that was performed about a month ago. Patient is well oriented. Does not have any weakness of left upper extremity on my brief examination. She does not have facial droop either. On questioning, she has no evidence of any prior myocardial infarction or CVA. She does have diabetes, insulin-requiring and had a recent echocardiogram about 2 months ago, which was unremarkable and LV systolic function was normal. PAST MEDICAL HISTORY: Past medical history is remarkable for hypertension, diabetes, hyperlipidemia, laminectomy of the lumbar spine about a month ago with some weakness in both lower extremities. She is status post appendectomy and cholecystectomy. She had a cardiac catheterization performed in 2019 with mild disease in LAD, but no other significant disease. MEDICATIONS: Medications at home include: Insulin, glimepiride, Flexeril, Bumex, aspirin, oxycodone, losartan 50 mg daily and also takes subcu heparin at home. EXAMINATION: Blood pressure is normal at 120/70, pulse rate is 70 per minute, sinus. HEENT unremarkable. Fundus was not examined by me. NECK is supple. There is no JVD. I do not hear a carotid bruit. HEART exam reveals S1, S2. No significant murmurs. Clear LUNGS. ABDOMEN is soft, nontender. Lower EXTREMITIES reveal diminished pulses. CENTRAL NERVOUS SYSTEM assessment was not performed in detail, but there are no focal deficits in the left upper extremity or lower extremity. Both legs are weak and she is lethargic. EKG has been ordered. Echo has been ordered to be repeated. No evidence to suggest any atrial fibrillation so far. IMPRESSION: 1. Questionable transient ischemic attack. 2. History of back surgery. 3. Lethargy. 4. Diabetes. 5. Hypertension. 6. History of chronic back pain with back surgery about a month ago. RECOMMENDATIONS: I am recommending an echo and EKG. Continue telemetry. Based on clinical course, we will make further recommendations. Await further evaluation from Neurology. MRI is pending at this time. CT scan is unremarkable and there is no evidence of any significant disease in carotid arteries based on the Doppler. We will continue to follow. MMPRABHUL / IJN: [id number] /
--- NOTE | 2021-02-03 17:37 | PN ---
PROGRESS NOTE ADDENDUM: Chronic diastolic heart failure with preserved ejection fraction. MMPRABHUL / IJN: [id number] /
[2021-02-03 17:45] LABS: Glucose,Whole Blood 172 mg/dL (75-99)
[2021-02-03] MEDS: FOLIC ACID 1 MG TAB PO SCH (17:45)
[2021-02-03 17:48] LABS: Albumin 3.7 g/dL (3.80-4.90); Albumin/Globulin Ratio 1.85 (1.60-3.17); Anion Gap 9.6 mmol/L (4.00-12.00); BUN/Creat Ratio 24.55 Ratio (12.00-20.00); Calcium 9.3 mg/dL (8.7-10.3); Carbon Dioxide 26.4 mmol/L (21.6-31.8); Non-African American GFR(CKD) 52.6 (60.0-200.0); Potassium 4.3 mmol/L (3.5-5.5); Total Bilirubin 0.7 mg/dL (0.3-1.2); Total Protein 5.7 g/dL (6.2-8.2)
[2021-02-03 22:42] LABS: Glucose,Whole Blood 112 mg/dL (75-99)
[2021-02-03] MEDS: MONTELUKAST 10 MG TAB PO SCH (22:57)
[2021-02-03] MEDS: ASPIRIN 81 MG PO SCH (22:57)
--- NOTE | 2021-02-04 06:58 | PN ---
PROGRESS NOTE 65-year-old white female, COPD. She slid to the floor today and with a near fall. She had recent Covid 19 infection. She had some encephalopathy since then, recent back surgery, type 2 diabetes mellitus, hypertensive cardiovascular disease. They did A- team on her. MRI/MRA were normal. She is acting stable at this time. Her leg swelling is decreased on increased Bumex. Cardiovascular: S1-S2, lungs clear. Psych: Alert and oriented x3. She has had debridement. LABORATORY DATA: Labs reviewed. ASSESSMENT: 1. Left upper lobe pneumonia. 2. Chronic obstructive pulmonary disease. 3. Status post lumbar surgery. 4. Covid 19 infection with encephalopathy. 5. Recent back surgery. 6. Type 2 diabetes mellitus. 7. Hypertensive cardiovascular disease. 8. Protein calorie malnutrition. 9. Gait imbalance. Continue current treatments per Orthopedics, bronchodilators, Azithromycin for pneumonia, PT/OT, possible rehab center placement. MMODL / IJN: [id number] /
[2021-02-04 07:16] LABS: Glucose,Whole Blood 88 mg/dL (75-99)
[2021-02-04] MEDS: IPRATROPIUM-ALBUTEROL 3 ML NEB INHALATION SCH ×4 (07:30→21:10)
--- NOTE | 2021-02-04 07:45 | ECHOF ---
Referral Reason:LV function? Thrombus, CVA MEASUREMENTS -------- HEIGHT: 152.4 cm WEIGHT: 95.3 kg BP: RVIDd: 2.8 cm (< 3.3) IVSd: 1.4 cm (0.6 - 1.1) LVIDd: 3.8 cm (3.9 - 5.3) LVPWd: 1.3 cm (0.6 - 1.1) IVSs: 1.8 cm LVIDs: 2.5 cm LVPWs: 1.7 cm LA Diam: 3.2 cm (2.7 - 3.8) Ao Diam: 3.2 cm (2.0 - 3.7) AV Cusp: 2.5 cm (1.5 - 2.6) MV EXCURSION: 14.230 mm (> 18.000) MV EF SLOPE: 38 mm/s (70 - 150) EPSS: 0.2 cm MV E Héctor: 0.61 m/s MV DecT: 359 ms MV A Héctor: 0.77 m/s MV E/A Ratio: 0.78 RAP: 5.00 mmHg RVSP: 27.00 mmHg FINDINGS -------- Sinus rhythm. This was a technically adequate study. The left ventricular size is normal. There is moderate concentric left ventricular hypertrophy. O verall left ventricular systolic function is normal with, an EF between 60 - 65 %. The right ventricle is normal in size. The left atrium is normal in size. The right atrium is normal in size. Interatrial and interventricular septum intact. The aortic valve is trileaflet, and appears structurally normal. No aortic stenosis or regurgitation. Mild mitral annular calcification present. Mild tricuspid regurgitation present. Right ventricular systolic pressure is normal at < 35 mmHg. Trace/mild (physiologic) pulmonic regurgitation. The aortic root size is normal. Normal inferior vena cava with normal inspiratory collapse consistent with estimated right atrial pre ssure of 5 mmHg. There is no pericardial effusion. CONCLUSIONS -------- 1. The left ventricular size is normal. 2. There is moderate concentric left ventricular hypertrophy. 3. Overall left ventricular systolic function is normal with, an EF between 60 - 65 %. 4. The aortic valve is trileaflet, and appears structurally normal. No aortic stenosis or regurgitati on. 5. Mild mitral annular calcification present. 6. Mild tricuspid regurgitation present. 7. Trace/mild (physiologic) pulmonic regurgitation. 8. There is no pericardial effusion. RICE DRIER: Reina Reno RDCS
--- NOTE | 2021-02-04 08:27 | P.PN ---
Subjective Progress Note Date: 02/04/21 Pt s/e. Resting comfortably. No issues overnight. No new symptoms at this time in her back. Objective - Vital Signs Vital signs: Vital Signs Temp 98.3 F 02/04/21 07:00 Pulse 98 02/04/21 07:00 Resp 16 02/04/21 07:00 BP 132/75 02/04/21 07:00 Pulse Ox 95 02/04/21 07:00 Intake & Output 02/03/21 02/04/21 02/04/21 18:59 06:59 18:59 Output Total 900 871 Balance -900 -871 Output: Urine 900 600 Uretheral (Pete) 600 Post Void Residual 271 Other: Voiding Method Bedpan Diaper Self-Catheterization External Catheter # Voids 0 - Exam Exam is stable. No changes today. PHYSICAL EXAMINATION: Vitals: Stable at this time there was one record of 100.4 Fahrenheit fever General: Awake, alert, appropriate for age, in no acute distress. HEENT: No unusual neck masses around region of lateral neck triangle, thyroid, supraclavicular groove. Heart: Regular rate and rhythm, normal S1, S2 and no murmur/gallop. Lungs: Clear to auscultation bilaterally with no use of accessory muscles. Extremities: Skin warm and dry without no acute lesions, coloration, temperature, skin intact, no tenderness or erythema. Integument: Hairy patches: Absent Dorsal skin dimples: Absent Cafe au lait spots: Absent Surgical incisions: Her posterior midline lumbar incision is well-healed at this time. Palpation: There is no tenderness to palpation around the incision there is no fluctuance felt. There is no tenderness to palpation of her cervical thoracic or lumbar spine midline or paralumbar at this time.] POSTURAL and MUSCULO-SKELETAL EVALUATION: Neck ROM: Unrestricted in six directions Lumbar ROM: Unrestricted in six directions Shoulder ROM: Symmetric in abduction, ER/IR Hip ROM: Symmetric in abduction, adduction, ER/IR Knee ROM: Symmetric and intact in Flexion / extension Hands: Normal appearing structure L and R Feet: Normal appearing structure L and R VASCULAR STATUS : Wrist Pulses: 2/4 bilateral radial and ulnar Pedal Pulses: 2/4 bilateral DP and PT Color: Normal Edema: None NEUROLOGIC EXAMINATION: Mental Status: Awake and alert, fully oriented, with normal attention, concentration and memory, and fluent, appropriate speech. Cranial Nerves: I: Olfactory not tested. II: Visual acuity normal, no visual field deficit noted with confrontation. III,IV: Normal pupillary reflexes & intact extraocular movements without nystagmus. V,: Intact symmetrical facial sensation. VII: Intact symmetrical facial motor movement VIII: Hearing intact. IX,X: Intact gag, swallow, & normal voice. XI: Sternocleidomastoid, trapezius function intact. XII: Tongue midline with normal movements. Special Tests: L'hermitte's Sign: Absent Spurling'Sign: Absent Bilateral Cubital percussion test: Absent Bilateral Frank-Tinel sign - Carpal region: Absent Bilateral Straight Leg Raising: Absent Bilateral Motor Exam (0-5/5, N/T) STRENGTH UPPER EXTREMITY Shoulder Abd (Not part of GERALD Motor score): RIGHT 4+ LEFT 4+ Elbow Flexors: RIGHT 4+ LEFT 4+ Elbow Extensor: RIGHT 4+ LEFT 4+ Wrrist Dorsiflexors: RIGHT 4+ LEFT 4+ Finger Abductor: RIGHT 4+ LEFT 4+ Steel Placer: RIGHT 4+ LEFT 4+ LOWER EXTREMITY Hip Flexor (Not part of GERALD Motor Score): RIGHT 4+ LEFT 4- Knee Flexor: RIGHT 4+ LEFT 4+ Knee Extensor: RIGHT 4+ LEFT 4- Ankle Dorsiflexion: RIGHT 4+ LEFT 2 Ankle Plantarflexion: RIGHT 4+ LEFT 4+ EHL: RIGHT 4+ LEFT 2 FHL: RIGHT 4+ LEFT 4+ The patient does have a degree of weakness overall however this is likely secondary to her medical stay deconditioning as well as current medical state. The patient has left lower extremity weakness in dorsiflexion and EHL however this been present since before surgery. I do not feel it has gotten signif icantly worse since after surgery. She is able to fire EHL as well as tibialis anterior tibialis anterior is weak EHL is stronger on the left-hand side. When prompted the patient can roll to the side and without any help and under her own power with really no issues. REFLEXES Biecp: RIGHT 2 LEFT 2 Tricep: RIGHT 2 LEFT 2 Brachioradialis: RIGHT 2 LEFT 2 Patellar: RIGHT 2 LEFT 2 Achilles: RIGHT 2 LEFT 2 No hyperreflexia noted Pathological Reflexes Mathur's: RIGHT Absent LEFT Absent Babinski: RIGHT Absent LEFT Absent Clonus: RIGHT None LEFT None No myelopathy signs noted SENSORY Joint Position: Intact bilaterally Vibration Intact bilaterally Pain and LT sense Intact C5-T1 and L2-S1 Dermatomal deficit mild L5 dermatomal deficit on the left-hand side still able to feel pressure however fine touch is difficult and she has some tingling to the touch in this area. Gait and Functional Evaluation: Ambulatory aids: Walker Romberg's test: Intact bilaterally. Hand and finger dexterity intact bilaterally. Disdiadochokinesis examination negative bilaterally. - Labs CBC & Chem 7: 02/03/21 10:38 02/03/21 10:38 Labs: Abnormal Lab Results - Last 24 Hours (Table) 02/03/21 02/03/21 02/03/21 Range/Units 06:17 06:17 09:15 RBC 3.09 L (4.10-5.20) X 10*6/uL Hgb 9.3 L (12.0-15.0) g/dL Hct 30.0 L (37.2-46.3) % MCV 97.1 H (80.0-97.0) fL MCHC 31.0 L (32.0-37.0) g/dL Eosinophils # 0.42 H (0.04-0.35) X 10*3/uL BUN (7-17) mg/dL Est GFR (CKD-EPI)NonAf 52.6 L (60.0-200.0) BUN/Creatinine Ratio 24.55 H (12.00-20.00) Ratio Glucose 126 H (70-110) mg/dL POC Glucose (mg/dL) 121 H (75-99) mg/dL Total Protein 5.7 L (6.2-8.2) g/dL Albumin 3.70 L (3.80-4.90) g/dL 02/03/21 02/03/21 02/03/21 Range/Units 10:38 10:38 17:42 RBC 3.26 L (4.10-5.20) X 10*6/uL Hgb 10.1 L (12.0-15.0) g/dL Hct 30.9 L (37.2-46.3) % MCV (80.0-97.0) fL MCHC (32.0-37.0) g/dL Eosinophils # (0.04-0.35) X 10*3/uL BUN 25 H (7-17) mg/dL Est GFR (CKD-EPI)NonAf (60.0-200.0) BUN/Creatinine Ratio (12.00-20.00) Ratio Glucose 114 H (70-110) mg/dL POC Glucose (mg/dL) 172 H (75-99) mg/dL Total Protein 5.9 L (6.2-8.2) g/dL Albumin 3.2 L (3.80-4.90) g/dL 02/03/21 Range/Units 22:41 RBC (4.10-5.20) X 10*6/uL Hgb (12.0-15.0) g/dL Hct (37.2-46.3) % MCV (80.0-97.0) fL MCHC (32.0-37.0) g/dL Eosinophils # (0.04-0.35) X 10*3/uL BUN (7-17) mg/dL Est GFR (CKD-EPI)NonAf (60.0-200.0) BUN/Creatinine Ratio (12.00-20.00) Ratio Glucose (70-110) mg/dL POC Glucose (mg/dL) 112 H (75-99) mg/dL Total Protein (6.2-8.2) g/dL Albumin (3.80-4.90) g/dL Assessment and Plan Assessment: 1. 65 yo female s/p lumbar laminectomy with continued LLE weakness 2. Possible TIA 3. Complex medical history, history of recent family loss Plan: -Appreciate economics consultant and team management. -Activity: Ambulate QID, OOB all meals, up and about, limit lifting bending twisting to less than 5 lbs. Use walker or cane if needed for stability. -Daily PT/OT, increase ambulation strength and balance. -Pain control: [Adequate at this time] -Meds: [reviewed] -GI ppx: senna, Miralax -DVT PPX: Per primary -Hygiene: Daily showers -Encourage IS 10x/hr -No orthopedic surgical intervention warranted at this time. Defer primary management to medical team as well as neurology
[2021-02-04] MEDS: GABAPENTIN 300 MG CAP PO SCH ×3 (09:08→22:05)
[2021-02-04] MEDS: BUMETANIDE 1 MG TAB PO SCH ×2 (09:09→16:49)
[2021-02-04] MEDS: GLIMEPIRIDE 1 MG TAB PO SCH ×2 (09:09→22:05)
[2021-02-04] MEDS: FOLIC ACID 1 MG TAB PO SCH (09:09)
[2021-02-04] MEDS: LOSARTAN 50 MG TAB PO SCH (09:09)
[2021-02-04] MEDS: POTASSIUM CHLORIDE ER 10 MEQ TAB.ER.PRT PO SCH (09:09)
[2021-02-04] MEDS: INSULIN DETEMIR (LEVEMIR) 100 UNIT/ML SYR SQ SCH (09:09)
[2021-02-04] MEDS: ENOXAPARIN 40 MG/0.4 ML SYRINGE SQ SCH (09:09)
[2021-02-04] MEDS: SENNOSIDES-DOCUSATE SODIUM 1 EACH TAB PO SCH (09:09)
--- NOTE | 2021-02-04 09:46 | P.PN ---
Subjective Progress Note Date: 02/04/21 Principal diagnosis: Baseline COPD appear not to be an exacerbation Back pain chronic in nature awaiting further evaluation Recent COVID-19 infection Recent back surgery Type 2 diabetes mellitus Hypertension hypertensive cardiovascular disease 02/04/2021, patient seen eval examined on 2 L breathing comfortably patient remains on antibiotics and bronchodilators, temperature spike 100.4 complaining of lower extremity weakness 02/03/2021, patient seen eval examined during the rounds, back pain slightly stable orthotics have been evaluating the patient, patient had extensive imaging studies including head CT which is normal, brain MRI some age-related atrophic changes were seen no acute intracranial process identified, cataract duplex is negative for significant stenosis, mild subsegmental atelectasis seen elevated right diaphragm infiltration upper lobe F site Objective - Vital Signs Vital signs: Vital Signs Temp 98.3 F 02/04/21 07:00 Pulse 98 02/04/21 07:00 Resp 16 02/04/21 07:00 BP 132/75 02/04/21 07:00 Pulse Ox 95 02/04/21 07:00 Intake & Output 02/03/21 02/04/21 02/04/21 18:59 06:59 18:59 Output Total 900 871 Balance -900 -871 Output: Urine 900 600 Uretheral (Pete) 600 Post Void Residual 271 Other: Voiding Method Bedpan Diaper Self-Catheterization External Catheter # Voids 0 - Exam - Constitutional General appearance: average body habitus, mild distress - EENT Eyes: EOMI, PERRLA ENT: hearing grossly normal Ears: bilateral: normal - Neck Carotids: bilateral: upstroke normal Thyroid: bilateral: normal size - Respiratory Respiratory: bilateral: CTA - Cardiovascular Rhythm: regular Heart sounds: normal: S1, S2 - Gastrointestinal General gastrointestinal: normal bowel sounds, soft - Integumentary Integumentary: normal - Neurologic Neurologic: CNII-XII intact - Musculoskeletal Musculoskeletal: generalized weakness, strength equal bilaterally - Psychiatric Psychiatric: A&O x's 3, appropriate affect, intact judgment & insight - Labs CBC & Chem 7: 02/03/21 10:38 02/03/21 10:38 Labs: Abnormal Lab Results - Last 24 Hours (Table) 02/03/21 02/03/21 02/03/21 Range/Units 06:17 10:38 10:38 RBC 3.26 L (3.80-5.40) m/uL Hgb 10.1 L (11.4-16.0) gm/dL Hct 30.9 L (34.0-46.0) % BUN 25 H (7-17) mg/dL Est GFR (CKD-EPI)NonAf 52.6 L (60.0-200.0) BUN/Creatinine Ratio 24.55 H (12.00-20.00) Ratio Glucose 126 H 114 H (70-110) mg/dL POC Glucose (mg/dL) (75-99) mg/dL Total Protein 5.7 L 5.9 L (6.2-8.2) g/dL Albumin 3.70 L 3.2 L (3.80-4.90) g/dL 02/03/21 02/03/21 Range/Units 17:42 22:41 RBC (3.80-5.40) m/uL Hgb (11.4-16.0) gm/dL Hct (34.0-46.0) % BUN (7-17) mg/dL Est GFR (CKD-EPI)NonAf (60.0-200.0) BUN/Creatinine Ratio (12.00-20.00) Ratio Glucose (70-110) mg/dL POC Glucose (mg/dL) 172 H 112 H (75-99) mg/dL Total Protein (6.2-8.2) g/dL Albumin (3.80-4.90) g/dL Assessment and Plan Assessment: Left upper lobe pneumonia Baseline COPD appear not to be an exacerbation Back pain chronic in nature awaiting further evaluation Recent COVID-19 infection Recent back surgery Type 2 diabetes mellitus Hypertension hypertensive cardiovascular disease Plan: Patient on bronchodilator and Zithromax follow closely Continue back pain management and pain meds and Bronchodilators as needed Reviewed chest x-ray Further recommendations pending plan of care as per clinical response of the patient Time with Patient: Greater than 30
--- NOTE | 2021-02-04 11:12 | P.PN ---
Subjective This is a pleasant 65-year-old female past medical history significant for hypertension, diabetes, dyslipidemia, chronic back pain status post laminectomy last month. She has seen and examined resting comfortably lying flat in bed in no acute distress. She continues to complain of ongoing lower extremity weakness. She has had no symptoms of chest discomfort or shortness of breath. Telemetry tracings have been unremarkable for an arrhythmia. Blood pressure 132/75 heart rate 98 afebrile maintaining oxygen saturation on nasal cannula. Echocardiogram obtained reveals preserved LV systolic function with ejection fraction 60-65%. GENERAL: Well-appearing, well-nourished and in no acute distress. NECK: Supple without JVD or thyromegaly. LUNGS: Breath sounds clear to auscultation bilaterally. Respiration equal and unlabored. No wheezes, rales or rhonchi. HEART: Regular rate and rhythm without murmurs, rubs or gallops. S1 and S2 heard. EXTREMITIES: Normal range of motion, no edema. No clubbing or cyanosis. Peripheral pulses intact. ASSESSMENT Questionable TIA Lower extremity weakness Hypertension Dyslipidemia Diabetes mellitus Chronic back bun status post laminectomy PLAN Patient is stable from a cardiac perspective. Evidence of underlying arrhythmia. Ongoing medical management, we will follow along as needed. Nurse Practitioner note has been reviewed, I agree with a documented findings and plan of care. Patient was seen and examined. Objective - Vital Signs Vital signs: Vital Signs Temp 98.3 F 02/04/21 07:00 Pulse 98 02/04/21 08:00 Resp 18 02/04/21 08:00 BP 132/75 02/04/21 07:00 Pulse Ox 95 02/04/21 07:00 Intake & Output 02/03/21 02/04/21 02/04/21 18:59 06:59 18:59 Output Total 900 871 Balance -900 -871 Output: Urine 900 600 Uretheral (Pete) 600 Post Void Residual 271 Other: Voiding Method Bedpan Diaper Diaper Self-Catheterization Self-Catheterization External Catheter External Catheter # Voids 0 - Labs CBC & Chem 7: 02/03/21 10:38 02/03/21 10:38 Labs: Abnormal Lab Results - Last 24 Hours (Table) 02/03/21 02/03/21 02/03/21 Range/Units 06:17 10:38 10:38 RBC 3.26 L (3.80-5.40) m/uL Hgb 10.1 L (11.4-16.0) gm/dL Hct 30.9 L (34.0-46.0) % BUN 25 H (7-17) mg/dL Est GFR (CKD-EPI)NonAf 52.6 L (60.0-200.0) BUN/Creatinine Ratio 24.55 H (12.00-20.00) Ratio Glucose 126 H 114 H (70-110) mg/dL POC Glucose (mg/dL) (75-99) mg/dL Total Protein 5.7 L 5.9 L (6.2-8.2) g/dL Albumin 3.70 L 3.2 L (3.80-4.90) g/dL 02/03/21 02/03/21 Range/Units 17:42 22:41 RBC (3.80-5.40) m/uL Hgb (11.4-16.0) gm/dL Hct (34.0-46.0) % BUN (7-17) mg/dL Est GFR (CKD-EPI)NonAf (60.0-200.0) BUN/Creatinine Ratio (12.00-20.00) Ratio Glucose (70-110) mg/dL POC Glucose (mg/dL) 172 H 112 H (75-99) mg/dL Total Protein (6.2-8.2) g/dL Albumin (3.80-4.90) g/dL
[2021-02-04 13:04] LABS: Glucose,Whole Blood 106 mg/dL (75-99)
--- NOTE | 2021-02-04 16:13 | P.PN ---
Subjective Progress Note Date: 02/04/21 Patient was seen for a follow-up. Patient still complains of leg weakness. States she went to the bathroom, and her foot gave out and she sat on the floor. He did not hurt herself. Patient states she has been diagnosed with pneumonia, started on antibiotics. No new concerns otherwise. Objective - Vital Signs Vital signs: Vital Signs Temp 97.8 F 02/04/21 15:00 Pulse 101 H 02/04/21 15:00 Resp 18 02/04/21 15:00 BP 106/65 02/04/21 15:00 Pulse Ox 90 L 02/04/21 15:00 Intake & Output 02/03/21 02/04/21 02/04/21 18:59 06:59 18:59 Output Total 900 871 Balance -900 -871 Output: Urine 900 600 Uretheral (Pete) 600 Post Void Residual 271 Other: Voiding Method Bedpan Diaper Diaper Self-Catheterization Self-Catheterization External Catheter External Catheter # Voids 0 3 - Exam Patient's mental status, speech and language functions are normal. Cranial nerves are normal. Muscle strength is no drift and the strength is normal in arms and right leg. Her left leg is weak, particularly distally in the ankle. Sensations are equal. No ataxia for [id number]. Patient still has some myoclonic/metabolic jerks of outstretched hands. - Labs CBC & Chem 7: 02/03/21 10:38 02/03/21 10:38 Labs: Abnormal Lab Results - Last 24 Hours (Table) 02/03/21 02/03/21 02/03/21 Range/Units 06:17 17:42 22:41 Est GFR (CKD-EPI)NonAf 52.6 L (60.0-200.0) BUN/Creatinine Ratio 24.55 H (12.00-20.00) Ratio Glucose 126 H (70-110) mg/dL POC Glucose (mg/dL) 172 H 112 H (75-99) mg/dL Total Protein 5.7 L (6.2-8.2) g/dL Albumin 3.70 L (3.80-4.90) g/dL 02/04/21 Range/Units 13:02 Est GFR (CKD-EPI)NonAf (60.0-200.0) BUN/Creatinine Ratio (12.00-20.00) Ratio Glucose (70-110) mg/dL POC Glucose (mg/dL) 106 H (75-99) mg/dL Total Protein (6.2-8.2) g/dL Albumin (3.80-4.90) g/dL Assessment and Plan Assessment: * Episode of possible TIA, versus lethargic state due to waking up from sleep, with sleep apnea not using CPAP machine. Current NIH stroke scale is 3, mainly related to left leg weakness. Her left leg weakness is significant, but probably related to her back surgery and radiculopathy. * Diabetes * Hypertension * Obesity * Sleep apnea, on CPAP machine. Plan: * MRI of the brain revealed age-related atrophic and chronic small vessel ischemic change. No acute intracranial process. * MRA of the head was normal, with no intracranial vascular stenosis or aneurysm reported. * Carotid Doppler was performed, which revealed no significant stenosis with antegrade flow in both vertebral arteries. * 2-D echo from 12/04/2020 shows normal left-ventricular size. Borderline concentric LVH. EF between 60-65%. Mild mitral annular calcification. * MRI of the lumbar spine from 11/20/2020 shows multilevel degenerative changes in the lumbar spine, greatest at L3 L4 level with encroachment on the central left L4 nerve though present. Findings correlate with patient's symptoms. * Patient feels her left leg is getting weaker. Orthopedic spine following closely. * Suggest starting telemetry monitoring. * Hemoglobin A1c 6.3 on 01/05/2021 * Lipid panel with cholesterol 174, LDL 99.4, HDL 46 and triglycerides 143. Patient ALLERGIC to statins. Lipids are fairly well controlled. * B12 420, folate 5.6, on replacement. * Continue aspirin 81 mg daily. * Neurology will sign off. Please reconsult neurology if any other concerns.
--- NOTE | 2021-02-04 16:26 | CDI ---
Documentation Clarification Form Date: 02/04/2021 04:00:28 PM From: Evette Reyna RN CCDS Admit Date: 02/02/2021 02:30:00 PM Patient Name: Shalonda Smalls Visit Number: [id number] Discharge Date: ATTENTION: The Clinical Documentation Specialists (CDI) and [facility] Coding Staff appreciate your assistance in clarifying documentation. Please respond to the clarification below the line at the bottom and electronically sign. The CDI & [facility] Coding staff will review the response and follow-up if needed. Please note: Queries are made part of the Legal Health Record. If you have any questions, please contact the author of this message via ITS. Dr. Tavo Lisa Protein calorie malnutrition is documented 02/03, Medicine progress note. Additional clarification regarding the severity of malnutrition is requested. History/Risk Factors: 65-year-old female presents to the ED via EMS with left hip and back pain. Recent admission to [facility]. Medical History: Recent COVID 19, CHF, DM2 and Recent Laminectomy. The patient was admitted to [facility] for rehabilitation and left AMA because was dying. 02/02, H&P. Clinical Indicators: Protein calorie malnutrition Gait imbalance, recent COVID 19.02/03, medicine progress note Current BMI: 41.0kg/ Treatment: Regular diet Please clarify the type of malnutrition, if known: [ ] Mild Protein-Calorie Malnutrition [ ] Moderate Protein-Calorie Malnutrition [ ] Other condition, please specify [ ] Unable to Determine (Template Last Revised: August 2020) MTDD
[2021-02-04 17:49] LABS: Glucose,Whole Blood 140 mg/dL (75-99)
[2021-02-04] MEDS ORDERED: AZITHROMYCIN 500 MG TAB PO SCH (21:00)
[2021-02-04] MEDS: ASPIRIN 81 MG PO SCH (22:05)
[2021-02-04] MEDS: MONTELUKAST 10 MG TAB PO SCH (22:05)
[2021-02-04 23:00] LABS: Glucose,Whole Blood 100 mg/dL (75-99)
[2021-02-05] MEDS: HYDROmorphone 1 MG/ML 1 ML SYRINGE IVP PRN (01:38)
[2021-02-05 07:09] LABS: Glucose,Whole Blood 149 mg/dL (75-99)
--- NOTE | 2021-02-05 07:19 | PN ---
PROGRESS NOTE 65-year-old white female, irretractable pain, depression, anxiety, up, unhappy because her , being treated for pneumonia. Cardiovascular: S1, S2. Lungs clear. GI soft. Psych is depressed. Musculoskeletal: Limited motion of the legs. ASSESSMENT: 1. Status post lumbar surgery. 2. Frequent falls. 3. Hip contusion. 4. Hospital acquired pneumonia. Continue with treatment for pneumonia, PT/OT, possible long term placement. MMODL / IJN: [id number] /
[2021-02-05] MEDS: INSULIN DETEMIR (LEVEMIR) 100 UNIT/ML SYR SQ SCH (08:55)
[2021-02-05] MEDS: POTASSIUM CHLORIDE ER 10 MEQ TAB.ER.PRT PO SCH (08:55)
[2021-02-05] MEDS: ENOXAPARIN 40 MG/0.4 ML SYRINGE SQ SCH (08:55)
[2021-02-05] MEDS: GABAPENTIN 300 MG CAP PO SCH ×3 (08:55→20:29)
[2021-02-05] MEDS: FOLIC ACID 1 MG TAB PO SCH (08:55)
[2021-02-05] MEDS: GLIMEPIRIDE 1 MG TAB PO SCH ×2 (08:55→20:29)
[2021-02-05] MEDS: BUMETANIDE 1 MG TAB PO SCH ×2 (08:55→15:15)
[2021-02-05] MEDS: SENNOSIDES-DOCUSATE SODIUM 1 EACH TAB PO SCH (08:56)
--- NOTE | 2021-02-05 08:59 | P.PN ---
Subjective Progress Note Date: 02/05/21 Pt s/e resting comfortably, no new complaints. Was up in chair yesterday with assist. Denies any new numbness/tingling. Denies any f/c/sob/cp at this time. Still having some labored breathing, but seems better today. Denies any other issues. Objective - Vital Signs Vital signs: Vital Signs Temp 98.5 F 02/05/21 07:00 Pulse 129 H 02/05/21 07:00 Resp 21 02/05/21 07:00 BP 118/67 02/05/21 07:00 Pulse Ox 91 L 02/05/21 07:00 Intake & Output 02/04/21 02/05/21 02/05/21 18:59 06:59 18:59 Other: Voiding Method Diaper Self-Catheterization External Catheter # Voids 3 1 # Bowel Movements 1 - Exam Exam remains stable today, no new findings no new focal deficits. PHYSICAL EXAMINATION: Vitals: Stable at this time there was one record of 100.4 Fahrenheit fever General: Awake, alert, appropriate for age, in no acute distress. HEENT: No unusual neck masses around region of lateral neck triangle, thyroid, supraclavicular groove. Heart: Regular rate and rhythm, normal S1, S2 and no murmur/gallop. Lungs: Clear to auscultation bilaterally with no use of accessory muscles. Extremities: Skin warm and dry without no acute lesions, coloration, temperature, skin intact, no tenderness or erythema. Integument: Hairy patches: Absent Dorsal skin dimples: Absent Cafe au lait spots: Absent Surgical incisions: Her posterior midline lumbar incision is well-healed at this time. Palpation: There is no tenderness to palpation around the incision there is no fluctuance felt. There is no tenderness to palpation of her cervical thoracic or lumbar spine midline or paralumbar at this time.] POSTURAL and MUSCULO-SKELETAL EVALUATION: Neck ROM: Unrestricted in six directions Lumbar ROM: Unrestricted in six directions Shoulder ROM: Symmetric in abduction, ER/IR Hip ROM: Symmetric in abduction, adduction, ER/IR Knee ROM: Symmetric and intact in Flexion / extension Hands: Normal appearing structure L and R Feet: Normal appearing structure L and R VASCULAR STATUS : Wrist Pulses: 2/4 bilateral radial and ulnar Pedal Pulses: 2/4 bilateral DP and PT Color: Normal Edema: None NEUROLOGIC EXAMINATION: Mental Status: Awake and alert, fully oriented, with normal attention, concentration and memory, and fluent, appropriate speech. Cranial Nerves: I: Olfactory not tested. II: Visual acuity normal, no visual field deficit noted with confrontation. III,IV: Normal pupillary reflexes & intact extraocular movements without nystagmus. V,: Intact symmetrical facial sensation. VII: Intact symmetrical facial motor movement VIII: Hearing intact. IX,X: Intact gag, swallow, & normal voice. XI: Sternocleidomastoid, trapezius function intact. XII: Tongue midline with normal movements. Special Tests: L'hermitte's Sign: Absent Spurling'Sign: Absent Bilateral Cubital percussion test: Absent Bilateral Frank-Tinel sign - Carpal region: Absent Bilateral Straight Leg Raising: Absent Bilateral Motor Exam (0-5/5, N/T) STRENGTH UPPER EXTREMITY Shoulder Abd (Not part of GERALD Motor score): RIGHT 4+ LEFT 4+ Elbow Flexors: RIGHT 4+ LEFT 4+ Elbow Extensor: RIGHT 4+ LEFT 4+ Wrrist Dorsiflexors: RIGHT 4+ LEFT 4+ Finger Abductor: RIGHT 4+ LEFT 4+ Registered Dietitian: RIGHT 4+ LEFT 4+ LOWER EXTREMITY Hip Flexor (Not part of GERALD Motor Score): RIGHT 4+ LEFT 4- Knee Flexor: RIGHT 4+ LEFT 4+ Knee Extensor: RIGHT 4+ LEFT 4- Ankle Dorsiflexion: RIGHT 4+ LEFT 2 Ankle Plantarflexion: RIGHT 4+ LEFT 4+ EHL: RIGHT 4+ LEFT 2 FHL: RIGHT 4+ LEFT 4+ The patient does have a degree of weakness overall however this is likely secondary to her medical stay deconditioning as well as current medical state. The patient has left lower extremity weakness in dorsiflexion and EHL however this been present since before surgery. I do not feel it has gotten significantly worse since after surgery. She is able to fire EHL as well as tibialis anterior tibialis anterior is weak EHL is stronger on the left-hand side. When prompted the patient can roll to the side and without any help and under her own power with really no issues. REFLEXES Biecp: RIGHT 2 LEFT 2 Tricep: RIGHT 2 LEFT 2 Brachioradialis: RIGHT 2 LEFT 2 Patellar: RIGHT 2 LEFT 2 Achilles: RIGHT 2 LEFT 2 No hyperreflexia noted Pathological Reflexes Mathur's: RIGHT Absent LEFT Absent Babinski: RIGHT Absent LEFT Absent Clonus: RIGHT None LEFT None No myelopathy signs noted SENSORY Joint Position: Intact bilaterally Vibration Intact bilaterally Pain and LT sense Intact C5-T1 and L2-S1 Dermatomal deficit mild L5 dermatomal deficit on the left-hand side still able to feel pressure however fine touch is difficult and she has some tingling to the touch in this area. Gait and Functional Evaluation: Ambulatory aids: Walker Romberg's test: Intact bilaterally. Hand and finger dexterity intact bilaterally. Disdiadochokinesis examination negative bilaterally. - Labs CBC & Chem 7: 02/03/21 10:38 02/03/21 10:38 Labs: Abnormal Lab Results - Last 24 Hours (Table) 02/04/21 02/04/21 02/04/21 Range/Units 13:02 17:47 22:59 POC Glucose (mg/dL) 106 H 140 H 100 H (75-99) mg/dL 02/05/21 Range/Units 07:08 POC Glucose (mg/dL) 149 H (75-99) mg/dL Assessment and Plan Assessment: 1. 65 yo female s/p lumbar laminectomy with continued LLE weakness 2. Possible TIA 3. Complex medical history, history of recent family loss Plan: -Appreciate field consultant and team management. -Activity: Ambulate QID, OOB all meals, up and about, limit lifting bending twisting to less than 5 lbs. Use walker or cane if needed for stability. -Daily PT/OT, increase ambulation strength and balance. -Pain control: [Adequate at this time] -Meds: [reviewed] -GI ppx: senna, Miralax -DVT PPX: Per primary -Hygiene: Daily showers -Encourage IS 10x/hr -No orthopedic surgical intervention warranted at this time. Defer primary management to medical team as well as neurology
--- NOTE | 2021-02-05 09:00 | P.PN ---
Subjective Progress Note Date: 02/05/21 Principal diagnosis: Baseline COPD appear not to be an exacerbation Back pain chronic in nature awaiting further evaluation Recent COVID-19 infection Recent back surgery Type 2 diabetes mellitus Hypertension hypertensive cardiovascular disease 02/05/2021, patient seen eval reexamined during the rounds labs reviewed medications reviewed care plan discussed, respiratory status remained stable and continued to improve and denies any chest pain or shortness of breath however lower extremity weakness continue been there for last PT OT to evaluate this patient as well with spine surgery has been following, patient is afebrile now heart rate is slightly fast saturation is 91-94% on 2 L oxygen 02/04/2021, patient seen eval examined on 2 L breathing comfortably patient rem ains on antibiotics and bronchodilators, temperature spike 100.4 complaining of lower extremity weakness 02/03/2021, patient seen eval examined during the rounds, back pain slightly stable orthotics have been evaluating the patient, patient had extensive imaging studies including head CT which is normal, brain MRI some age-related atrophic changes were seen no acute intracranial process identified, cataract duplex is negative for significant stenosis, mild subsegmental atelectasis seen elevated right diaphragm infiltration upper lobe F site Objective - Vital Signs Vital signs: Vital Signs Temp 98.5 F 02/05/21 07:00 Pulse 129 H 02/05/21 07:00 Resp 21 02/05/21 07:00 BP 118/67 02/05/21 07:00 Pulse Ox 91 L 02/05/21 07:00 Intake & Output 02/04/21 02/05/21 02/05/21 18:59 06:59 18:59 Other: Voiding Method Diaper Self-Catheterization External Catheter # Voids 3 1 # Bowel Movements 1 - Exam - Constitutional General appearance: average body habitus, mild distress - EENT Eyes: EOMI, PERRLA ENT: hearing grossly normal Ears: bilateral: normal - Neck Carotids: bilateral: upstroke normal Thyroid: bilateral: normal size - Respiratory Respiratory: bilateral: CTA - Cardiovascular Rhythm: regular Heart sounds: normal: S1, S2 - Gastrointestinal General gastrointestinal: normal bowel sounds, soft - Integumentary Integumentary: normal - Neurologic Neurologic: CNII-XII intact - Musculoskeletal Musculoskeletal: generalized weakness, strength equal bilaterally - Psychiatric Psychiatric: A&O x's 3, appropriate affect, intact judgment & insight - Labs CBC & Chem 7: 02/03/21 10:38 02/03/21 10:38 Labs: Abnormal Lab Results - Last 24 Hours (Table) 02/04/21 02/04/21 02/04/21 Range/Units 13:02 17:47 22:59 POC Glucose (mg/dL) 106 H 140 H 100 H (75-99) mg/dL 02/05/21 Range/Units 07:08 POC Glucose (mg/dL) 149 H (75-99) mg/dL Assessment and Plan Assessment: Left upper lobe pneumonia Baseline COPD appear not to be an exacerbation Back pain chronic in nature awaiting further evaluation Recent COVID-19 infection Recent back surgery Type 2 diabetes mellitus Hypertension hypertensive cardiovascular disease Plan: Patient on bronchodilator and Zithromax follow closely Continue back pain management and pain meds and Bronchodilators as needed Reviewed chest x-ray Further recommendations pending plan of care as per clinical response of the patient Time with Patient: Greater than 30
[2021-02-05] MEDS: IPRATROPIUM-ALBUTEROL 3 ML NEB INHALATION SCH ×4 (09:05→20:58)
[2021-02-05 12:03] LABS: Glucose,Whole Blood 141 mg/dL (75-99)
[2021-02-05] MEDS: LOSARTAN 50 MG TAB PO SCH (12:13)
[2021-02-05] MEDS: TAMSULOSIN 0.4 MG CAP.ER.24H PO SCH (15:15)
[2021-02-05 16:01] LABS: Basophils % (A) 1 %; Eosinophils # (A) 0.6 k/uL (0-0.7); Eosinophils % (A) 11 %; HCT 28.4 % (34.0-46.0); HGB 9.6 gm/dL (11.4-16.0); Lymphocytes # (A) 1.4 k/uL (1.0-4.8); Lymphocytes % (A) 27 %; MCH 31.8 pg (25.0-35.0); MCHC 33.6 g/dL (31.0-37.0); MCV 94.4 fL (80.0-100.0); Mean Platelet Volume 8.4; Monocytes # (A) 0.3 k/uL (0-1.0); Monocytes % (A) 5 %; Neutrophils % (A) 55 %; Platelet Count 193 k/uL (150-450); Poikilocytosis Slight; RBC 3.01 m/uL (3.80-5.40); RDW 14.5 % (11.5-15.5); WBC 5.4 k/uL (3.8-10.6)
--- NOTE | 2021-02-05 16:05 | XR ---
EXAMINATION TYPE: XR chest 1V portable DATE OF EXAM: 02/05/2021 Comparison: 02/02/2021 Clinical History: 65-year-old female fever Findings: Heart upper limits of normal in size. Patchy peripheral interstitial densities on the left. Pulmonary vasculature within normal limits. No pleural effusion. Impression: Some patchy interstitial densities in the periphery of the left lung. Correlate to exclude early atyp ical pneumonia.
[2021-02-05] MEDS: ACETAMINOPHEN TAB 325 MG TAB PO PRN (16:24)
[2021-02-05 17:24] LABS: Glucose,Whole Blood 156 mg/dL (75-99)
[2021-02-05] MEDS: PIPERACILLIN-TAZOBACTAM 3.375 GM in SODIUM CHLORIDE 0.9% 100 ML IVPB SCH (19:20)
--- NOTE | 2021-02-05 19:42 | PN ---
PROGRESS NOTE Mild protein-calorie malnutrition. MMODL / IJN: [id number] /
[2021-02-05 20:28] LABS: Glucose,Whole Blood 167 mg/dL (75-99)
[2021-02-05] MEDS: MONTELUKAST 10 MG TAB PO SCH (20:29)
[2021-02-05] MEDS: AZITHROMYCIN 500 MG TAB PO SCH (20:29)
[2021-02-05] MEDS: ASPIRIN 81 MG PO SCH (20:29)
[2021-02-06] MEDS: PIPERACILLIN-TAZOBACTAM 3.375 GM in SODIUM CHLORIDE 0.9% 100 ML IVPB SCH ×3 (03:37→20:59)
[2021-02-06 07:36] LABS: Glucose,Whole Blood 105 mg/dL (75-99)
[2021-02-06] MEDS: IPRATROPIUM-ALBUTEROL 3 ML NEB INHALATION SCH ×4 (08:32→19:53)
--- NOTE | 2021-02-06 09:00 | PN ---
PROGRESS NOTE The patient is feeling little bit better today. He had a low-grade fever, though, switched antibiotics IV Zosyn and azithromycin to treat for pneumonia. A chest x-ray on Mrs. Smalls showed patchy interstitial densities particularly of the left lung for atypical pneumonias. We switched antibiotics. Mentally she is improving, her vital signs are better. She had tachycardia this morning at which time I gave her extra beta arlene, but this was not given despite being ordered. Pulse currently is in the 70s, temp 97.7, respiratory 18-20, blood pressure 101/65, 93 on 2 L. Cardiovascular S1, S2. Lungs scattered wheeze x4. Psych alert oriented x3. Musculoskeletal some tenderness to palpation over the left hip, lumbar spine. ASSESSMENT: Status post lumbar laminectomy, left lower lobe pneumonia, acute hypoxemic respiratory failure, bronchospasm, generalized weakness, delirium. Continue current treatment, switched antibiotics to azithromycin, Zosyn. PROGNOSIS: Guarded. Possible discharge home once the pneumonia clears up, or back to the rehab center for physical therapy. MMODL / IJN: [id number] /
--- NOTE | 2021-02-06 10:00 | P.PN ---
Subjective This is a pleasant 65-year-old female past medical history significant for hypertension, diabetes, dyslipidemia, chronic back pain status post laminectomy last month. She has seen and examined resting comfortably lying flat in bed in no acute distress. She continues to complain of ongoing lower extremity weakness. She has had no symptoms of chest discomfort or shortness of breath. Telemetry tracings have been unremarkable for an arrhythmia. Blood pressure 132/75 heart rate 98 afebrile maintaining oxygen saturation on nasal cannula. Echocardiogram obtained reveals preserved LV systolic function with ejection fraction 60-65%. 02/06/2021 We have been asked to re-evaluate the patient this morning due to a complaint of chest pain. She states her chest hurts over the left breath when she is coughing. The pain is reproducible on palpation as well. She is lethargic at the time of our exam but does arouse when spoken too. She has been receiving both dilaudid and oxycodone for pain control. Blood pressure 130/75 heart rate 72 afebrile and maintaining oxygen saturation on nasal cannula. Repeat EKG requested revealing no acute changes from previous EKG on admission. Laboratory data reviewed, STAT troponin negative. Chest xray yesterday reveals possible atypical pneumonia on the left. GENERAL: Well-appearing, well-nourished and in no acute distress. NECK: Supple without JVD or thyromegaly. LUNGS: Breath sounds clear to auscultation bilaterally. Respiration equal and unlabored. No wheezes, rales or rhonchi. HEART: Regular rate and rhythm without murmurs, rubs or gallops. S1 and S2 heard. EXTREMITIES: Normal range of motion, no edema. No clubbing or cyanosis. Peripheral pulses intact. ASSESSMENT Questionable TIA Possible pneumonia Chest pain, pleuritic Lower extremity weakness Hypertension Dyslipidemia Diabetes mellitus Chronic back bun status post laminectomy PLAN Pain is atypical for angina. Reproducible with cough and palpation. Not suggestive of cardiac pain. No further cardiac work-up. Ongoing medical management, we will follow along as needed. Nurse Practitioner note has been reviewed, I agree with a documented findings and plan of care. Patient was seen and examined. Objective - Vital Signs Vital signs: Vital Signs Temp 98.6 F 02/06/21 07:00 Pulse 72 02/06/21 08:41 Resp 20 02/06/21 07:00 BP 130/75 02/06/21 07:00 Pulse Ox 96 02/06/21 07:00 Intake & Output 02/05/21 02/06/21 02/06/21 18:59 06:59 18:59 Intake Total 420 Output Total 900 800 Balance -480 -800 Intake: Oral 420 Output: Urine 900 800 Straight 900 Other: Voiding Method Diaper Diaper External Catheter External Catheter # Bowel Movements 1 - Labs CBC & Chem 7: 02/05/21 15:50 02/03/21 10:38 Labs: Abnormal Lab Results - Last 24 Hours (Table) 02/05/21 02/05/21 02/05/21 Range/Units 12:00 15:50 17:22 RBC 3.01 L (3.80-5.40) m/uL Hgb 9.6 L (11.4-16.0) gm/dL Hct 28.4 L (34.0-46.0) % POC Glucose (mg/dL) 141 H 156 H (75-99) mg/dL 02/05/21 02/06/21 Range/Units 20:27 07:07 RBC (3.80-5.40) m/uL Hgb (11.4-16.0) gm/dL Hct (34.0-46.0) % POC Glucose (mg/dL) 167 H 105 H (75-99) mg/dL Microbiology - Last 24 Hours (Table) 02/05/21 18:05 Urine Culture - Preliminary Urine,Catheterized
[2021-02-06] MEDS: ENOXAPARIN 40 MG/0.4 ML SYRINGE SQ SCH (10:21)
[2021-02-06] MEDS: INSULIN DETEMIR (LEVEMIR) 100 UNIT/ML SYR SQ SCH (10:21)
[2021-02-06] MEDS: SENNOSIDES-DOCUSATE SODIUM 1 EACH TAB PO SCH (10:21)
[2021-02-06] MEDS: LOSARTAN 25 MG TAB PO SCH (10:22)
[2021-02-06] MEDS: GABAPENTIN 300 MG CAP PO SCH ×3 (10:22→20:59)
[2021-02-06] MEDS: FOLIC ACID 1 MG TAB PO SCH (10:22)
[2021-02-06] MEDS: POTASSIUM CHLORIDE ER 10 MEQ TAB.ER.PRT PO SCH (10:22)
[2021-02-06] MEDS: GLIMEPIRIDE 1 MG TAB PO SCH ×2 (10:23→20:59)
[2021-02-06] MEDS: BUMETANIDE 1 MG TAB PO SCH ×2 (10:23→15:57)
--- NOTE | 2021-02-06 12:22 | P.PN ---
Subjective Progress Note Date: 02/06/21 Pt s/e. Resting comfortably. No new issues. Nursing states no other issues overnight. Objective - Vital Signs Vital signs: Vital Signs Temp 98.6 F 02/06/21 07:00 Pulse 72 02/06/21 08:41 Resp 20 02/06/21 08:00 BP 130/75 02/06/21 07:00 Pulse Ox 96 02/06/21 07:00 Intake & Output 02/05/21 02/06/21 02/06/21 18:59 06:59 18:59 Intake Total 420 Output Total 900 800 Balance -480 -800 Intake: Oral 420 Output: Urine 900 800 Straight 900 Other: Voiding Method Diaper Diaper External Catheter External Catheter External Catheter # Bowel Movements 1 - Exam No new exam findings today. Continues to have DF weakness in Lt. PHYSICAL EXAMINATION: Vitals: Stable at this time there was one record of 100.4 Fahrenheit fever General: Awake, alert, appropriate for age, in no acute distress. HEENT: No unusual neck masses around region of lateral neck triangle, thyroid, supraclavicular groove. Heart: Regular rate and rhythm, normal S1, S2 and no murmur/gallop. Lungs: Clear to auscultation bilaterally with no use of accessory muscles. Extremities: Skin warm and dry without no acute lesions, coloration, temperature, skin intact, no tenderness or erythema. Integument: Hairy patches: Absent Dorsal skin dimples: Absent Cafe au lait spots: Absent Surgical incisions: Her posterior midline lumbar incision is well-healed at this time. Palpation: There is no tenderness to palpation around the incision there is no flu ctuance felt. There is no tenderness to palpation of her cervical thoracic or lumbar spine midline or paralumbar at this time.] POSTURAL and MUSCULO-SKELETAL EVALUATION: Neck ROM: Unrestricted in six directions Lumbar ROM: Unrestricted in six directions Shoulder ROM: Symmetric in abduction, ER/IR Hip ROM: Symmetric in abduction, adduction, ER/IR Knee ROM: Symmetric and intact in Flexion / extension Hands: Normal appearing structure L and R Feet: Normal appearing structure L and R VASCULAR STATUS : Wrist Pulses: 2/4 bilateral radial and ulnar Pedal Pulses: 2/4 bilateral DP and PT Color: Normal Edema: None NEUROLOGIC EXAMINATION: Mental Status: Awake and alert, fully oriented, with normal attention, con centration and memory, and fluent, appropriate speech. Cranial Nerves: I: Olfactory not tested. II: Visual acuity normal, no visual field deficit noted with confrontation. III,IV: Normal pupillary reflexes & intact extraocular movements without nystagmus. V,: Intact symmetrical facial sensation. VII: Intact symmetrical facial motor movement VIII: Hearing intact. IX,X: Intact gag, swallow, & normal voice. XI: Sternocleidomastoid, trapezius function intact. XII: Tongue midline with normal movements. Special Tests: L'hermitte's Sign: Absent Spurling'Sign: Absent Bilateral Cubital percussion test: Absent Bilateral Frank-Tinel sign - Carpal region: Absent Bilateral Straight Leg Raising: Absent Bilateral Motor Exam (0-5/5, N/T) STRENGTH UPPER EXTREMITY Shoulder Abd (Not part of GERALD Motor score): RIGHT 4+ LEFT 4+ Elbow Flexors: RIGHT 4+ LEFT 4+ Elbow Extensor: RIGHT 4+ LEFT 4+ Wrrist Dorsiflexors: RIGHT 4+ LEFT 4+ Finger Abductor: RIGHT 4+ LEFT 4+ Bobbin Sorter: RIGHT 4+ LEFT 4+ LOWER EXTREMITY Hip Flexor (Not part of GERALD Motor Score): RIGHT 4+ LEFT 4- Knee Flexor: RIGHT 4+ LEFT 4+ Knee Extensor: RIGHT 4+ LEFT 4- Ankle Dorsiflexion: RIGHT 4+ LEFT 2 Ankle Plantarflexion: RIGHT 4+ LEFT 4+ EHL: RIGHT 4+ LEFT 2 FHL: RIGHT 4+ LEFT 4+ The patient does have a degree of weakness overall however this is likely secondary to her medical stay deconditioning as well as current medical state. The patient has left lower extremity weakness in dorsiflexion and EHL however this been present since before surgery. I do not feel it has gotten significantly worse since after surgery. She is able to fire EHL as well as tibialis anterior tibialis anterior is weak EHL is stronger on the left-hand side. When prompted the patient can roll to the side and without any help and under her own power with really no issues. REFLEXES Biecp: RIGHT 2 LEFT 2 Tricep: RIGHT 2 LEFT 2 Brachioradialis: RIGHT 2 LEFT 2 Patellar: RIGHT 2 LEFT 2 Achilles: RIGHT 2 LEFT 2 No hyperreflexia noted Pathological Reflexes Mathur's: RIGHT Absent LEFT Absent Babinski: RIGHT Absent LEFT Absent Clonus: RIGHT None LEFT None No myelopathy signs noted SENSORY Joint Position: Intact bilaterally Vibration Intact bilaterally Pain and LT sense Intact C5-T1 and L2-S1 Dermatomal deficit mild L5 dermatomal deficit on the left-hand side still able to feel pressure however fine touch is difficult and she has some tingling to the touch in this area. Gait and Functional Evaluation: Ambulatory aids: Walker Romberg's test: Intact bilaterally. Hand and finger dexterity intact bilaterally. Disdiadochokinesis examination negative bilaterally. - Labs CBC & Chem 7: 02/05/21 15:50 02/03/21 10:38 Labs: Abnormal Lab Results - Last 24 Hours (Table) 02/05/21 02/05/21 02/05/21 Range/Units 15:50 17:22 20:27 RBC 3.01 L (3.80-5.40) m/uL Hgb 9.6 L (11.4-16.0) gm/dL Hct 28.4 L (34.0-46.0) % POC Glucose (mg/dL) 156 H 167 H (75-99) mg/dL 02/06/21 Range/Units 07:07 RBC (3.80-5.40) m/uL Hgb (11.4-16.0) gm/dL Hct (34.0-46.0) % POC Glucose (mg/dL) 105 H (75-99) mg/dL Microbiology - Last 24 Hours (Table) 02/05/21 18:05 Urine Culture - Preliminary Urine,Catheterized Assessment and Plan Assessment: 1. 65 yo female s/p lumbar laminectomy with continued LLE weakness 2. Possible TIA 3. Complex medical history, history of recent family loss Plan: -Appreciate recruiting consultant and team management. -Activity: Ambulate QID, OOB all meals, up and about, limit lifting bending twisting to less than 5 lbs. Use walker or cane if needed for stability. -Daily PT/OT, increase ambulation strength and balance. -Pain control: [Adequate at this time] -Meds: [reviewed] -GI ppx: senna, Miralax -DVT PPX: Per primary -Hygiene: Daily showers -Encourage IS 10x/hr -No orthopedic surgical intervention Follow up in 2 weeks in office.
[2021-02-06 12:27] LABS: Glucose,Whole Blood 114 mg/dL (75-99)
--- NOTE | 2021-02-06 16:29 | P.PN ---
Subjective Progress Note Date: 02/06/21 Principal diagnosis: Pneumonia Baseline COPD appear not to be an exacerbation Back pain chronic in nature awaiting further evaluation Recent COVID-19 infection Recent back surgery Type 2 diabetes mellitus Hypertension hypertensive cardiovascular disease 02/06/2021, patient seen eval examined during rounds. Medications the Patient Has a Spiking Fever Yesterday However Today He Is Afebrile, S x-ray performed the February 05 shows a patchy infiltrate on the midlung rowe, currently patient is on Zosyn 02/05/2021, patient seen eval reexamined during the rounds labs reviewed medications reviewed care plan discussed, respiratory status remained stable and continued to improve and denies any chest pain or shortness of breath however lower extremity weakness continue been there for last PT OT to evaluate this patient as well with spine surgery has been following, patient is afebrile now heart rate is slightly fast saturation is 91-94% on 2 L oxygen 02/04/2021, patient seen eval examined on 2 L breathing comfortably patient remains on antibiotics and bronchodilators, temperature spike 100.4 complaining of lower extremity weakness 02/03/2021, patient seen eval examined during the rounds, back pain slightly stable orthotics have been evaluating the patient, patient had extensive imaging studies including head CT which is normal, brain MRI some age-related atrophic changes were seen no acute intracranial process identified, cataract duplex is negative for significant stenosis, mild subsegmental atelectasis seen elevated right diaphragm infiltration upper lobe F site Objective - Vital Signs Vital signs: Vital Signs Temp 98.1 F 02/06/21 15:00 Pulse 100 02/06/21 15:42 Resp 21 02/06/21 15:00 BP 133/61 02/06/21 15:00 Pulse Ox 95 02/06/21 15:00 Intake & Output 02/05/21 02/06/21 02/06/21 18:59 06:59 18:59 Intake Total 420 417 Output Total 900 800 Balance -480 -800 417 Intake: Oral 420 417 Output: Urine 900 800 Straight 900 Other: Voiding Method Diaper Diaper External Catheter External Catheter External Catheter # Bowel Movements 1 - Exam - Constitutional General appearance: average body habitus, mild distress - EENT Eyes: EOMI, PERRLA ENT: hearing grossly normal Ears: bilateral: normal - Neck Carotids: bilateral: upstroke normal Thyroid: bilateral: normal size - Respiratory Respiratory: bilateral: CTA - Cardiovascular Rhythm: regular Heart sounds: normal: S1, S2 - Gastrointestinal General gastrointestinal: normal bowel sounds, soft - Integumentary Integumentary: normal - Neurologic Neurologic: CNII-XII intact - Musculoskeletal Musculoskeletal: generalized weakness, strength equal bilaterally - Psychiatric Psychiatric: A&O x's 3, appropriate affect, intact judgment & insight - Labs CBC & Chem 7: 02/05/21 15:50 02/03/21 10:38 Labs: Abnormal Lab Results - Last 24 Hours (Table) 02/05/21 02/05/21 02/06/21 Range/Units 17:22 20:27 07:07 POC Glucose (mg/dL) 156 H 167 H 105 H (75-99) mg/dL 02/06/21 Range/Units 12:25 POC Glucose (mg/dL) 114 H (75-99) mg/dL Microbiology - Last 24 Hours (Table) 02/05/21 18:05 Urine Culture - Preliminary Urine,Catheterized Assessment and Plan Assessment: Left upper lobe pneumonia Baseline COPD appear not to be an exacerbation Back pain chronic in nature awaiting further evaluation Recent COVID-19 infection Recent back surgery Type 2 diabetes mellitus Hypertension hypertensive cardiovascular disease Very depressed due to recent demise of her spouse Plan: Continue Zosyn Patient on bronchodilator and Zithromax follow closely Continue back pain management and pain meds and Bronchodilators as needed Reviewed chest x-ray Further recommendations pending plan of care as per clinical response of the patient Time with Patient: Greater than 30
--- NOTE | 2021-02-06 17:28 | PN ---
PROGRESS NOTE 65-year-old white female having left-sided chest pain today. She has a left lower lobe pneumonia. It is more of a pleuritic pain, worse with coughing. I suspect this is from her left lower lobe pneumonia with pleuritic type pain but Cardiology is consulted since she had tachycardia yesterday but is improved. She has lower extremity weakness. PLAN: Cardiology says pain is atypical for angina. Reproducible with cough and palpation is suggestive of pleuritic pain due to left lower lobe pneumonia. Continue current treatments, PT/OT. Dr. Alvarez saw her, cleared her for her back, possibly need to be placed in the rehab center. Awaiting discharge care plan with the patient and family. Continued left lower extremity weakness, possible TIA, which I highly doubt. Recent memory loss. Continue with PT, OT, and back to the rehab center. JOSÉ / CORTEZN: [id number] /
[2021-02-06 17:29] LABS: Glucose,Whole Blood 168 mg/dL (75-99)
[2021-02-06] MEDS: TAMSULOSIN 0.4 MG CAP.ER.24H PO SCH (18:13)
[2021-02-06 20:24] LABS: Glucose,Whole Blood 199 mg/dL (75-99)
[2021-02-06] MEDS: ASPIRIN 81 MG PO SCH (20:59)
[2021-02-06] MEDS: MONTELUKAST 10 MG TAB PO SCH (20:59)
[2021-02-06] MEDS: AZITHROMYCIN 500 MG TAB PO SCH (20:59)
[2021-02-07] MEDS: PIPERACILLIN-TAZOBACTAM 3.375 GM in SODIUM CHLORIDE 0.9% 100 ML IVPB SCH ×3 (03:38→20:34)
[2021-02-07 07:01] LABS: ALT 12 U/L (4-34); AST 19 U/L (14-36); African American GFR (CKD) 73 (>60 ml/min/1.73 sqM); Albumin 3.2 g/dL (3.5-5.0); Albumin/Globulin Ratio 1.3; Alkaline Phosphatase 62 U/L (38-126); Anion Gap 7 mmol/L; Blood Urea Nitrogen 15 mg/dL (7-17); Carbon Dioxide 30 mmol/L (22-30); Chloride 102 mmol/L (98-107); Globulin 2.4 g/dL; Glucose 69 mg/dL (74-99); Non-African American GFR(CKD) 63 (>60 ml/min/1.73 sqM); Potassium 3.1 mmol/L (3.5-5.1); Sodium 139 mmol/L (137-145); Total Bilirubin 0.4 mg/dL (0.2-1.3); Total Protein 5.6 g/dL (6.3-8.2)
[2021-02-07 07:13] LABS: Glucose,Whole Blood 84 mg/dL (75-99)
[2021-02-07] MEDS: GABAPENTIN 300 MG CAP PO SCH ×3 (08:08→20:34)
[2021-02-07] MEDS: SENNOSIDES-DOCUSATE SODIUM 1 EACH TAB PO SCH (08:08)
[2021-02-07] MEDS: POTASSIUM CHLORIDE ER 10 MEQ TAB.ER.PRT PO SCH (08:08)
[2021-02-07] MEDS: LOSARTAN 25 MG TAB PO SCH (08:08)
[2021-02-07] MEDS: INSULIN DETEMIR (LEVEMIR) 100 UNIT/ML SYR SQ SCH (08:08)
[2021-02-07] MEDS: FOLIC ACID 1 MG TAB PO SCH (08:08)
[2021-02-07] MEDS: BUMETANIDE 1 MG TAB PO SCH ×2 (08:09→16:32)
[2021-02-07] MEDS: GLIMEPIRIDE 1 MG TAB PO SCH ×2 (08:09→20:35)
[2021-02-07] MEDS: ENOXAPARIN 40 MG/0.4 ML SYRINGE SQ SCH (08:11)
[2021-02-07] MEDS: IPRATROPIUM-ALBUTEROL 3 ML NEB INHALATION SCH ×4 (08:34→19:13)
[2021-02-07 08:51] LABS: Basophils # (A) 0.03 X 10*3/uL (0.00-0.10); Basophils % (A) 0.6 %; Eosinophils # (A) 0.57 X 10*3/uL (0.04-0.35); Eosinophils % (A) 11.2 %; HGB 8.8 g/dL (12.0-15.0); Lymphocytes # (A) 1.86 X 10*3/uL (0.90-5.00); Lymphocytes % (A) 36.5 %; MCHC 32.6 g/dL (32.0-37.0); MCV 95.1 fL (80.0-97.0); Mean Platelet Volume 10.6 fL (9.5-12.2); Monocytes # (A) 0.34 X 10*3/uL (0.20-1.00); Monocytes % (A) 6.7 %; Neutrophils # (A) 2.26 X 10*3/uL (1.80-7.70); Neutrophils % (A) 44.2 %; Platelet Count 179 X 10*3/uL (140-440); RBC 2.84 X 10*6/uL (4.10-5.20); RDW 13.2 % (11.5-14.5)
--- NOTE | 2021-02-07 12:05 | PN ---
PROGRESS NOTE A 65-year-old white female seen by Cardiology and stabilized. She is given physical therapy for the left leg immobility status post back surgery, recent Covid 19 infection with some encephalopathy, COPD, chronic back pain, hypertension, improving left lower lobe pneumonia causing some pleuritic-type chest pain which is improving with IV Zosyn and azithromycin. PHYSICAL EXAMINATION: Temperature 98.1, pulse 100, respiratory 18 to 21, blood pressure 130s over 50s O2 95. Cardiovascular S1-S2. Lungs scattered wheeze x4. GI soft. Integument normal. Neurologic cranial nerves are intact. Psych fair mood and affect. ASSESSMENT: 1. Left upper lobe pneumonia. 2. Baseline COPD. 3. Chronic back pain. 4. Recent Covid 19 infection. 5. Recent back surgery. 6. Type 2 diabetes mellitus. 7. Hypertensive cardiovascular disease. 8. Very depressed. PLAN: Continue Zosyn, bronchodilators, back pain management. Treat for pneumonia. Continue with the treatments for pneumonia. We will see how she does by Tuesday and possibly rehab center will be needed. MMODL / IJN: [id number] /
[2021-02-07 12:31] LABS: Glucose,Whole Blood 154 mg/dL (75-99)
[2021-02-07] MEDS: ESCITALOPRAM 10 MG TAB PO SCH (13:16)
--- NOTE | 2021-02-07 15:17 | P.PN ---
Subjective Progress Note Date: 02/06/21 Patient was seen for a follow-up. Patient is laying comfortably in the bed. Offers no new complaints. Patient states her left leg is still weak. She usually uses leg brace. No further focal symptoms. Denies headache. Patient states that she is being treated for pneumonia. No new concerns otherwise. Objective - Vital Signs Vital signs: Vital Signs Temp 98.1 F 02/06/21 15:00 Pulse 100 02/06/21 15:42 Resp 21 02/06/21 15:00 BP 133/61 02/06/21 15:00 Pulse Ox 95 02/06/21 15:00 Intake & Output 02/05/21 02/06/21 02/06/21 18:59 06:59 18:59 Intake Total 420 517 Output Total 900 800 Balance -480 -800 517 Intake: IV 100 Piperacillin-Tazobactam 3 100 .375 gm In Sodium Chloride 0.9% 100 ml @ 25 mls/hr IVPB Q8H [facility] Rx#: [id number] Oral 420 417 Output: Urine 900 800 Straight 900 Other: Voiding Method Diaper Diaper External Catheter External Catheter External Catheter # Bowel Movements 1 - Exam Patient's mental status, speech and language functions are normal. Cranial nerves are normal. Muscle strength, there is no drift and the strength is normal in arms and right leg. Her left leg is weak, particularly distally in the ankle, with the foot drop. Patient can lift her right leg off the bed easily, but cannot lift the left leg off the bed. Sensations are equal. No ataxia for [id number]. - Labs CBC & Chem 7: 02/07/21 06:16 02/07/21 06:16 Labs: Abnormal Lab Results - Last 24 Hours (Table) 02/05/21 02/05/21 02/06/21 Range/Units 17:22 20:27 07:07 POC Glucose (mg/dL) 156 H 167 H 105 H (75-99) mg/dL 02/06/21 Range/Units 12:25 POC Glucose (mg/dL) 114 H (75-99) mg/dL Microbiology - Last 24 Hours (Table) 02/05/21 18:05 Urine Culture - Preliminary Urine,Catheterized Assessment and Plan Assessment: * Episode of possible TIA, versus lethargic state due to waking up from sleep, with sleep apnea not using CPAP machine. Current NIH stroke scale is 3, mainly related to left leg weakness. Her left leg weakness is significant, but probably related to her back surgery and radiculopathy. * Diabetes * Hypertension * Obesity * Sleep apnea, on CPAP machine. Plan: * MRI of the brain revealed age-related atrophic and chronic small vessel ischemic change. No acute intracranial process. * MRA of the head was normal, with no intracranial vascular stenosis or aneurysm reported. * Carotid Doppler was performed, which revealed no significant stenosis with ant egrade flow in both vertebral arteries. * 2-D echo from 12/04/2020 shows normal left-ventricular size. Borderline concentric LVH. EF between 60-65%. Mild mitral annular calcification. * MRI of the lumbar spine from 11/20/2020 shows multilevel degenerative changes in the lumbar spine, greatest at L3 L4 level with encroachment on the central left L4 nerve though present. Findings correlate with patient's symptoms. * Patient feels her left leg is getting weaker. Orthopedic spine following closely. * Hemoglobin A1c 6.3 on 01/05/2021 * Lipid panel with cholesterol 174, LDL 99.4, HDL 46 and triglycerides 143. Patient ALLERGIC to statins. Lipids are fairly well controlled. * B12 420, folate 5.6, on replacement. * Continue aspirin 81 mg daily. * Recommend EMG and nerve conduction of left lower extremity as outpatient. * Neurology will sign off. Please reconsult neurology if any other concerns.
[2021-02-07] MEDS: TAMSULOSIN 0.4 MG CAP.ER.24H PO SCH (16:32)
[2021-02-07 17:33] LABS: Glucose,Whole Blood 222 mg/dL (75-99)
[2021-02-07] MEDS: ASPIRIN 81 MG PO SCH (20:34)
[2021-02-07] MEDS: MONTELUKAST 10 MG TAB PO SCH (20:34)
[2021-02-07] MEDS: AZITHROMYCIN 500 MG TAB PO SCH (20:35)
[2021-02-07 21:06] LABS: Glucose,Whole Blood 249 mg/dL (75-99)
--- NOTE | 2021-02-08 01:10 | P.PN ---
Subjective Progress Note Date: 02/08/21 Principal diagnosis: Pneumonia Baseline COPD appear not to be an exacerbation Back pain chronic in nature awaiting further evaluation Recent COVID-19 infection Recent back surgery Type 2 diabetes mellitus Hypertension hypertensive cardiovascular disease 02/08/2021, patient seen eval examined during the rounds labs reviewed medications reviewed history status slightly better on 2 L oxygen, less cough congestion is present, urine culture results negative for growth has been seen, she has been continued on IV Zosyn for pneumonia tolerating well has been afebrile now is still on 2 L oxygen 02/06/2021, patient seen eval examined during rounds. Medications the Patient Has a Spiking Fever Yesterday However Today He Is Afebrile, S x-ray performed the February 05 shows a patchy infiltrate on the midlung rowe, currently patient is on Zosyn 02/05/2021, patient seen eval reexamined during the rounds labs reviewed medications reviewed care plan discussed, respiratory status remained stable and continued to improve and denies any chest pain or shortness of breath however lower extremity weakness continue been there for last PT OT to evaluate this patient as well with spine surgery has been following, patient is afebrile now heart rate is slightly fast saturation is 91-94% on 2 L oxygen 02/04/2021, patient seen eval examined on 2 L breathing comfortably patient re torrey on antibiotics and bronchodilators, temperature spike 100.4 complaining of lower extremity weakness 02/03/2021, patient seen eval examined during the rounds, back pain slightly stable orthotics have been evaluating the patient, patient had extensive imaging studies including head CT which is normal, brain MRI some age-related atrophic changes were seen no acute intracranial process identified, cataract duplex is negative for significant stenosis, mild subsegmental atelectasis seen elevated right diaphragm infiltration upper lobe F site Objective - Vital Signs Vital signs: Vital Signs Temp 98.0 F 02/07/21 18:59 Pulse 99 02/07/21 19:24 Resp 17 02/07/21 18:59 BP 112/68 02/07/21 18:59 Pulse Ox 94 L 02/07/21 18:59 Intake & Output 02/07/21 02/07/21 02/08/21 06:59 18:59 06:59 Intake Total 540 Output Total 1300 1400 Balance -760 -1400 Intake: Oral 540 Output: Urine 1300 1400 Other: Voiding Method Indwelling Catheter Indwelling Catheter # Voids 1 0 - Exam - Constitutional General appearance: average body habitus, mild distress - EENT Eyes: EOMI, PERRLA ENT: hearing grossly normal Ears: bilateral: normal - Neck Carotids: bilateral: upstroke normal Thyroid: bilateral: normal size - Respiratory Respiratory: bilateral: CTA - Cardiovascular Rhythm: regular Heart sounds: normal: S1, S2 - Gastrointestinal General gastrointestinal: normal bowel sounds, soft - Integumentary Integumentary: normal - Neurologic Neurologic: CNII-XII intact - Musculoskeletal Musculoskeletal: generalized weakness, strength equal bilaterally - Psychiatric Psychiatric: A&O x's 3, appropriate affect, intact judgment & insight - Labs CBC & Chem 7: 02/07/21 06:16 02/07/21 06:16 Labs: Abnormal Lab Results - Last 24 Hours (Table) 02/07/21 02/07/21 02/07/21 Range/Units 06:16 06:16 12:30 RBC 2.84 L (4.10-5.20) X 10*6/uL Hgb 8.8 L (12.0-15.0) g/dL Hct 27.0 L (37.2-46.3) % Eosinophils # 0.57 H (0.04-0.35) X 10*3/uL Potassium 3.1 L (3.5-5.1) mmol/L Glucose 69 L (74-99) mg/dL POC Glucose (mg/dL) 154 H (75-99) mg/dL Total Protein 5.6 L (6.3-8.2) g/dL Albumin 3.2 L (3.5-5.0) g/dL 02/07/21 02/07/21 Range/Units 17:32 21:05 RBC (4.10-5.20) X 10*6/uL Hgb (12.0-15.0) g/dL Hct (37.2-46.3) % Eosinophils # (0.04-0.35) X 10*3/uL Potassium (3.5-5.1) mmol/L Glucose (74-99) mg/dL POC Glucose (mg/dL) 222 H 249 H (75-99) mg/dL Total Protein (6.3-8.2) g/dL Albumin (3.5-5.0) g/dL Assessment and Plan Assessment: Left upper lobe pneumonia Baseline COPD appear not to be an exacerbation Back pain chronic in nature awaiting further evaluation Recent COVID-19 infection Recent back surgery Type 2 diabetes mellitus Hypertension hypertensive cardiovascular disease Very depressed due to recent demise of her spouse Plan: Continue Zosyn Patient on bronchodilator and Zithromax follow closely Continue back pain management and pain meds and Bronchodilators as needed Reviewed chest x-ray Further recommendations pending plan of care as per clinical response of the patient Time with Patient: Greater than 30
[2021-02-08] MEDS: PIPERACILLIN-TAZOBACTAM 3.375 GM in SODIUM CHLORIDE 0.9% 100 ML IVPB SCH ×3 (03:50→20:05)
[2021-02-08 07:27] LABS: Glucose,Whole Blood 116 mg/dL (75-99)
[2021-02-08] MEDS: GABAPENTIN 300 MG CAP PO SCH ×3 (07:33→20:06)
[2021-02-08] MEDS: LOSARTAN 25 MG TAB PO SCH (07:33)
[2021-02-08] MEDS: POTASSIUM CHLORIDE ER 10 MEQ TAB.ER.PRT PO SCH (07:33)
[2021-02-08] MEDS: ENOXAPARIN 40 MG/0.4 ML SYRINGE SQ SCH (07:33)
[2021-02-08] MEDS: SENNOSIDES-DOCUSATE SODIUM 1 EACH TAB PO SCH (07:33)
[2021-02-08] MEDS: ESCITALOPRAM 10 MG TAB PO SCH (07:34)
[2021-02-08] MEDS: GLIMEPIRIDE 1 MG TAB PO SCH ×2 (07:34→20:05)
[2021-02-08] MEDS: BUMETANIDE 1 MG TAB PO SCH ×2 (07:34→17:23)
[2021-02-08] MEDS: FOLIC ACID 1 MG TAB PO SCH (07:35)
[2021-02-08] MEDS: INSULIN DETEMIR (LEVEMIR) 100 UNIT/ML SYR SQ SCH (07:35)
[2021-02-08] MEDS: IPRATROPIUM-ALBUTEROL 3 ML NEB INHALATION SCH ×4 (07:55→19:49)
[2021-02-08 12:13] LABS: Glucose,Whole Blood 201 mg/dL (75-99)
[2021-02-08 17:07] LABS: Glucose,Whole Blood 165 mg/dL (75-99)
[2021-02-08] MEDS: TAMSULOSIN 0.4 MG CAP.ER.24H PO SCH (17:23)
[2021-02-08] MEDS: AZITHROMYCIN 500 MG TAB PO SCH (20:05)
[2021-02-08] MEDS: ASPIRIN 81 MG PO SCH (20:05)
[2021-02-08] MEDS: MONTELUKAST 10 MG TAB PO SCH (20:06)
[2021-02-08 20:23] LABS: Glucose,Whole Blood 183 mg/dL (75-99)
[2021-02-09] MEDS: PIPERACILLIN-TAZOBACTAM 3.375 GM in SODIUM CHLORIDE 0.9% 100 ML IVPB SCH ×3 (02:58→21:06)
[2021-02-09 07:13] LABS: Glucose,Whole Blood 83 mg/dL (75-99)
[2021-02-09] MEDS: GABAPENTIN 300 MG CAP PO SCH ×3 (08:03→20:49)
[2021-02-09] MEDS: FOLIC ACID 1 MG TAB PO SCH (08:03)
[2021-02-09] MEDS: POTASSIUM CHLORIDE ER 10 MEQ TAB.ER.PRT PO SCH (08:03)
[2021-02-09] MEDS: LOSARTAN 25 MG TAB PO SCH (08:03)
[2021-02-09] MEDS: SENNOSIDES-DOCUSATE SODIUM 1 EACH TAB PO SCH (08:03)
[2021-02-09] MEDS: ESCITALOPRAM 10 MG TAB PO SCH (08:04)
[2021-02-09] MEDS: GLIMEPIRIDE 1 MG TAB PO SCH ×2 (08:04→20:48)
[2021-02-09] MEDS: ENOXAPARIN 40 MG/0.4 ML SYRINGE SQ SCH (08:04)
[2021-02-09] MEDS: BUMETANIDE 1 MG TAB PO SCH ×2 (08:04→16:12)
[2021-02-09] MEDS: INSULIN DETEMIR (LEVEMIR) 100 UNIT/ML SYR SQ SCH (08:05)
[2021-02-09] MEDS: IPRATROPIUM-ALBUTEROL 3 ML NEB INHALATION SCH ×4 (09:30→19:08)
[2021-02-09 12:07] LABS: Glucose,Whole Blood 210 mg/dL (75-99)
[2021-02-09 14:35] VITALS: BMI 41.0
--- NOTE | 2021-02-09 15:32 | P.PN ---
Subjective Progress Note Date: 02/09/21 Patient seen this morning. Resting comfortably in no acute events overnight. No issues over the weekend. She continues to have some back and left lower extremity pain. No acute changes. No acute bowel or bladder issues. Objective - Vital Signs Vital signs: Vital Signs Temp 98.6 F 02/09/21 07:00 Pulse 68 02/09/21 15:16 Resp 18 02/09/21 14:00 BP 117/81 02/09/21 07:00 Pulse Ox 95 02/09/21 11:04 Intake & Output 02/08/21 02/09/21 02/09/21 18:59 06:59 18:59 Intake Total 350 118 Output Total 350 Balance 0 118 Weight 95.254 kg Intake: Oral 350 118 Output: Urine 350 Other: Voiding Method Indwelling Catheter Indwelling Catheter Indwelling Catheter # Voids 1 1 1 - Exam Exam is stable today. PHYSICAL EXAMINATION: Vitals: Stable at this time there was one record of 100.4 Fahrenheit fever General: Awake, alert, appropriate for age, in no acute distress. HEENT: No unusual neck masses around region of lateral neck triangle, thyroid, supraclavicular groove. Heart: Regular rate and rhythm, normal S1, S2 and no murmur/gallop. Lungs: Clear to auscultation bilaterally with no use of accessory muscles. Extremities: Skin warm and dry without no acute lesions, coloration, temperature, skin intact, no tenderness or erythema. Integument: Hairy patches: Absent Dorsal skin dimples: Absent Cafe au lait spots: Absent Surgical incisions: Her posterior midline lumbar incision is well-healed at this time. Palpation: There is no tenderness to palpation around the incision there is no fluctuance felt. There is no tenderness to palpation of her cervical thoracic or lumbar spine midline or paralumbar at this time.] POSTURAL and MUSCULO-SKELETAL EVALUATION: Neck ROM: Unrestricted in six directions Lumbar ROM: Unrestricted in six directions Shoulder ROM: Symmetric in abduction, ER/IR Hip ROM: Symmetric in abduction, adduction, ER/IR Knee ROM: Symmetric and intact in Flexion / extension Hands: Normal appearing structure L and R Feet: Normal appearing structure L and R VASCULAR STATUS : Wrist Pulses: 2/4 bilateral radial and ulnar Pedal Pulses: 2/4 bilateral DP and PT Color: Normal Edema: None NEUROLOGIC EXAMINATION: Mental Status: Awake and alert, fully oriented, with normal attention, concentration and memory, and fluent, appropriate speech. Cranial Nerves: I: Olfactory not tested. II: Visual acuity normal, no visual field deficit noted with confrontation. III,IV: Normal pupillary reflexes & intact extraocular movements without nystagmus. V,: Intact symmetrical facial sensation. VII: Intact symmetrical facial motor movement VIII: Hearing intact. IX,X: Intact gag, swallow, & normal voice. XI: Sternocleidomastoid, trapezius function intact. XII: Tongue midline with normal movements. Special Tests: L'hermitte's Sign: Absent Spurling'Sign: Absent Bilateral Cubital percussion test: Absent Bilateral Frank-Tinel sign - Carpal region: Absent Bilateral Straight Leg Raising: Absent Bilateral Motor Exam (0-5/5, N/T) STRENGTH UPPER EXTREMITY Shoulder Abd (Not part of GERALD Motor score): RIGHT 4+ LEFT 4+ Elbow Flexors: RIGHT 4+ LEFT 4+ Elbow Extensor: RIGHT 4+ LEFT 4+ Wrrist Dorsiflexors: RIGHT 4+ LEFT 4+ Finger Abductor: RIGHT 4+ LEFT 4+ Store Product Demonstrator: RIGHT 4+ LEFT 4+ LOWER EXTREMITY Hip Flexor (Not part of GERALD Motor Score): RIGHT 4+ LEFT 4- Knee Flexor: RIGHT 4+ LEFT 4+ Knee Extensor: RIGHT 4+ LEFT 4- Ankle Dorsiflexion: RIGHT 4+ LEFT 2 Ankle Plantarflexion: RIGHT 4+ LEFT 4+ EHL: RIGHT 4+ LEFT 2 FHL: RIGHT 4+ LEFT 4+ The patient does have a degree of weakness overall however this is likely secondary to her medical stay deconditioning as well as current medical state. The patient has left lower extremity weakness in dorsiflexion and EHL however this been present since before surgery. I do not feel it has gotten significantly worse since after surgery. She is able to fire EHL as well as tibialis anterior tibialis anterior is weak EHL is stronger on the left-hand side. When prompted the patient can roll to the side and without any help and under her own power with really no issues. REFLEXES Biecp: RIGHT 2 LEFT 2 Tricep: RIGHT 2 LEFT 2 Brachioradialis: RIGHT 2 LEFT 2 Patellar: RIGHT 2 LEFT 2 Achilles: RIGHT 2 LEFT 2 No hyperreflexia noted Pathological Reflexes Mathur's: RIGHT Absent LEFT Absent Babinski: RIGHT Absent LEFT Absent Clonus: RIGHT None LEFT None No myelopathy signs noted SENSORY Joint Position: Intact bilaterally Vibration Intact bilaterally Pain and LT sense Intact C5-T1 and L2-S1 Dermatomal deficit mild L5 dermatomal deficit on the left-hand side still able to feel pressure however fine touch is difficult and she has some tingling to the touch in this area. Gait and Functional Evaluation: Ambulatory aids: Walker Romberg's test: Intact bilaterally. Hand and finger dexterity intact bilaterally. Disdiadochokinesis examination negative bilaterally. - Labs CBC & Chem 7: 02/07/21 06:16 02/07/21 06:16 Labs: Abnormal Lab Results - Last 24 Hours (Table) 02/08/21 02/08/21 02/09/21 Range/Units 17:06 20:21 11:56 POC Glucose (mg/dL) 165 H 183 H 210 H (75-99) mg/dL Assessment and Plan Assessment: 1. 65 yo female s/p lumbar laminectomy with continued LLE weakness 2. Possible TIA 3. Complex medical history, history of recent family loss Plan: -Appreciate plan consultant and team management. -Activity: Ambulate QID, OOB all meals, up and about, limit lifting bending twisting to less than 5 lbs. Use walker or cane if needed for stability. -Daily PT/OT, increase ambulation strength and balance. -Pain control: [Adequate at this time] -Meds: [reviewed] -GI ppx: senna, Miralax -DVT PPX: Per primary -Hygiene: Daily showers -Encourage IS 10x/hr -No orthopedic surgical intervention Follow up in 2 weeks in office.
[2021-02-09] MEDS: TAMSULOSIN 0.4 MG CAP.ER.24H PO SCH (16:14)
--- NOTE | 2021-02-09 16:47 | P.PN ---
Subjective Progress Note Date: 02/09/21 Principal diagnosis: Pneumonia Baseline COPD appear not to be an exacerbation Back pain chronic in nature awaiting further evaluation Recent COVID-19 infection Recent back surgery Type 2 diabetes mellitus Hypertension hypertensive cardiovascular disease 02/09/2021, patient seen eval examined during the rounds labs reviewed medications reviewed, patient remains sad intermittent cries, hemodynamic status stable patient currently on room air breathing comfortably 02/08/2021, patient seen eval examined during the rounds labs reviewed medications reviewed history status slightly better on 2 L oxygen, less cough congestion is present, urine culture results negative for growth has been seen, she has been continued on IV Zosyn for pneumonia tolerating well has been afebri le now is still on 2 L oxygen 02/06/2021, patient seen eval examined during rounds. Medications the Patient Has a Spiking Fever Yesterday However Today He Is Afebrile, S x-ray performed the February 05 shows a patchy infiltrate on the midlung rowe, currently patient is on Zosyn 02/05/2021, patient seen eval reexamined during the rounds labs reviewed medications reviewed care plan discussed, respiratory status remained stable and continued to improve and denies any chest pain or shortness of breath however lower extremity weakness continue been there for last PT OT to evaluate this patient as well with spine surgery has been following, patient is afebrile now heart rate is slightly fast saturation is 91-94% on 2 L oxygen 02/04/2021, patient seen eval examined on 2 L breathing comfortably patient remains on antibiotics and bronchodilators, temperature spike 100.4 complaining of lower extremity weakness 02/03/2021, patient seen eval examined during the rounds, back pain slightly stable orthotics have been evaluating the patient, patient had extensive imaging studies including head CT which is normal, brain MRI some age-related atrophic changes were seen no acute intracranial process identified, cataract duplex is negative for significant stenosis, mild subsegmental atelectasis seen elevated right diaphragm infiltration upper lobe F site Objective - Vital Signs Vital signs: Vital Signs Temp 98.6 F 02/09/21 15:00 Pulse 68 02/09/21 15:16 Resp 16 02/09/21 15:00 BP 122/62 02/09/21 15:00 Pulse Ox 92 L 02/09/21 15:00 Intake & Output 02/08/21 02/09/21 02/09/21 18:59 06:59 18:59 Intake Total 350 118 Output Total 350 300 Balance 0 -182 Weight 95.254 kg Intake: Oral 350 118 Output: Urine 350 300 Other: Voiding Method Indwelling Catheter Indwelling Catheter Indwelling Catheter # Voids 1 1 1 - Exam - Constitutional General appearance: average body habitus, mild distress - EENT Eyes: EOMI, PERRLA ENT: hearing grossly normal Ears: bilateral: normal - Neck Carotids: bilateral: upstroke normal Thyroid: bilateral: normal size - Respiratory Respiratory: bilateral: CTA - Cardiovascular Rhythm: regular Heart sounds: normal: S1, S2 - Gastrointestinal General gastrointestinal: normal bowel sounds, soft - Integumentary Integumentary: normal - Neurologic Neurologic: CNII-XII intact - Musculoskeletal Musculoskeletal: generalized weakness, strength equal bilaterally - Psychiatric Psychiatric: A&O x's 3, appropriate affect, intact judgment & insight - Labs CBC & Chem 7: 02/07/21 06:16 02/07/21 06:16 Labs: Abnormal Lab Results - Last 24 Hours (Table) 02/08/21 02/08/21 02/09/21 Range/Units 17:06 20:21 11:56 POC Glucose (mg/dL) 165 H 183 H 210 H (75-99) mg/dL Assessment and Plan Assessment: Left upper lobe pneumonia Baseline COPD appear not to be an exacerbation Back pain chronic in nature awaiting further evaluation Recent COVID-19 infection Recent back surgery Type 2 diabetes mellitus Hypertension hypertensive cardiovascular disease Very depressed due to recent demise of her spouse Plan: Continue Zosyn, can be switched to oral Patient on bronchodilator and Zithromax follow closely Continue back pain management and pain meds and Bronchodilators as needed Reviewed chest x-ray Further recommendations pending plan of care as per clinical response of the patient Time with Patient: Greater than 30
[2021-02-09 17:19] LABS: Glucose,Whole Blood 120 mg/dL (75-99)
--- NOTE | 2021-02-09 19:08 | PN ---
PROGRESS NOTE DATE OF SERVICE: 02/08/2021 65-year-old white female with left lower lobe pneumonia. She has responded to IV Zosyn and azithromycin. She is down to 2 L of oxygen. Her breathing is improving. Urine culture results for growth have been seen. Continue on IV Zosyn for pneumonia. Cardiovascular: S1, S2. Lungs clear. GI soft. Hematology: Negative Homans. Psych: Fair mood and affect. ASSESSMENT: 1. Left upper lobe pneumonia. 2. Baseline chronic obstructive pulmonary disease. 3. Chronic back pain. 4. Recent COVID-19 infection with some encephalopathy. 5. Recent back surgery. 6. Type 2 diabetes mellitus. 7. Hypertensive heart disease. 8. Very depressed. I started her on Lexapro 20 mg daily, possibly switch to oral antibiotics and go to rehab center in the next 24 to 48 hours. Continue with PT OT.. JOSÉ / MINOR: [id number] /
[2021-02-09 20:39] LABS: Glucose,Whole Blood 174 mg/dL (75-99)
[2021-02-09] MEDS: MONTELUKAST 10 MG TAB PO SCH (20:49)
[2021-02-09] MEDS: ASPIRIN 81 MG PO SCH (20:49)
[2021-02-09] MEDS: AZITHROMYCIN 500 MG TAB PO SCH (20:49)
[2021-02-10 07:19] LABS: Glucose,Whole Blood 74 mg/dL (75-99)
[2021-02-10] MEDS: IPRATROPIUM-ALBUTEROL 3 ML NEB INHALATION SCH ×4 (08:25→20:10)
[2021-02-10] MEDS: ESCITALOPRAM 10 MG TAB PO SCH (09:07)
[2021-02-10] MEDS: ENOXAPARIN 40 MG/0.4 ML SYRINGE SQ SCH (09:07)
[2021-02-10] MEDS: POTASSIUM CHLORIDE ER 10 MEQ TAB.ER.PRT PO SCH (09:07)
[2021-02-10] MEDS: FOLIC ACID 1 MG TAB PO SCH (09:07)
[2021-02-10] MEDS: BUMETANIDE 1 MG TAB PO SCH ×2 (09:07→15:30)
[2021-02-10] MEDS: GABAPENTIN 300 MG CAP PO SCH ×3 (09:08→20:40)
[2021-02-10] MEDS: GLIMEPIRIDE 1 MG TAB PO SCH ×2 (09:08→20:39)
[2021-02-10] MEDS: SENNOSIDES-DOCUSATE SODIUM 1 EACH TAB PO SCH (09:08)
[2021-02-10] MEDS: LOSARTAN 25 MG TAB PO SCH (09:08)
--- NOTE | 2021-02-10 09:14 | P.PN ---
Subjective Progress Note Date: 02/10/21 Principal diagnosis: Pneumonia Baseline COPD appear not to be an exacerbation Back pain chronic in nature awaiting further evaluation Recent COVID-19 infection Recent back surgery Type 2 diabetes mellitus Hypertension hypertensive cardiovascular disease 02/10/2021, patient seen eval examined during rounds labs reviewed medications reviewed, patient has been on bronchodilators along with oral antibiotics tolerating well, continued to be on insulin as well, still intermittently broke into tears started crying, vitals are stable temperature is 97.9 blood pressure and 60/66 respiratory rate is 18, saturation is 97% on 2 L nasal cannula, patient has been using CPAP machine at nighttime seems to be helping her 02/09/2021, patient seen eval examined during the rounds labs reviewed medications reviewed, patient remains sad intermittent cries, hemodynamic status stable patient currently on room air breathing comfortably 02/08/2021, patient seen eval examined during the rounds labs reviewed medications reviewed history status slightly better on 2 L oxygen, less cough congestion is present, urine culture results negative for growth has been seen, she has been continued on IV Zosyn for pneumonia tolerating well has been afebrile now is still on 2 L oxygen 02/06/2021, patient seen eval examined during rounds. Medications the Patient Has a Spiking Fever Yesterday However Today He Is Afebrile, S x-ray performed the February 05 shows a patchy infiltrate on the midlung rowe, currently patient is on Zosyn 02/05/2021, patient seen eval reexamined during the rounds labs reviewed medications reviewed care plan discussed, respiratory status remained stable and continued to improve and denies any chest pain or shortness of breath however lower extremity weakness continue been there for last PT OT to evaluate this patient as well with spine surgery has been following, patient is afebrile now heart rate is slightly fast saturation is 91-94% on 2 L oxygen 02/04/2021, patient seen eval examined on 2 L breathing comfortably patient remains on antibiotics and bronchodilators, temperature spike 100.4 complaining of lower extremity weakness 02/03/2021, patient seen eval examined during the rounds, back pain slightly stable orthotics have been evaluating the patient, patient had extensive imaging studies including head CT which is normal, brain MRI some age-related atrophic changes were seen no acute intracranial process identified, cataract duplex is negative for significant stenosis, mild subsegmental atelectasis seen elevated right diaphragm infiltration upper lobe F site Objective - Vital Signs Vital signs: Vital Signs Temp 97.9 F 02/10/21 07:00 Pulse 90 02/10/21 08:39 Resp 18 02/10/21 07:00 BP 116/66 02/10/21 07:00 Pulse Ox 97 02/10/21 08:29 Intake & Output 02/09/21 02/10/21 02/10/21 18:59 06:59 18:59 Intake Total 118 Output Total 300 Balance -182 Weight 95.254 kg Intake: Oral 118 Output: Urine 300 Other: Voiding Method Indwelling Catheter # Voids 1 1 - Exam - Constitutional General appearance: average body habitus, mild distress - EENT Eyes: EOMI, PERRLA ENT: hearing grossly normal Ears: bilateral: normal - Neck Carotids: bilateral: upstroke normal Thyroid: bilateral: normal size - Respiratory Respiratory: bilateral: CTA - Cardiovascular Rhythm: regular Heart sounds: normal: S1, S2 - Gastrointestinal General gastrointestinal: normal bowel sounds, soft - Integumentary Integumentary: normal - Neurologic Neurologic: CNII-XII intact - Musculoskeletal Musculoskeletal: generalized weakness, strength equal bilaterally - Psychiatric Psychiatric: A&O x's 3, appropriate affect, intact judgment & insight - Labs CBC & Chem 7: 02/07/21 06:16 02/07/21 06:16 Labs: Abnormal Lab Results - Last 24 Hours (Table) 02/09/21 02/09/21 02/09/21 Range/Units 11:56 17:17 20:37 POC Glucose (mg/dL) 210 H 120 H 174 H (75-99) mg/dL 02/10/21 Range/Units 07:02 POC Glucose (mg/dL) 74 L (75-99) mg/dL Assessment and Plan Assessment: Left upper lobe pneumonia Baseline COPD appear not to be an exacerbation Back pain chronic in nature awaiting further evaluation Recent COVID-19 infection Recent back surgery Type 2 diabetes mellitus Hypertension hypertensive cardiovascular disease Very depressed due to recent demise of her spouse Plan: Continue Zithromax Patient on bronchodilator Supplemental oxygen as needed Continue back pain management and pain meds and physical therapy Further recommendations pending plan of care as per clinical response of the patient Time with Patient: Greater than 30
[2021-02-10 12:20] LABS: Glucose,Whole Blood 129 mg/dL (75-99)
[2021-02-10] MEDS: INSULIN DETEMIR (LEVEMIR) 100 UNIT/ML SYR SQ SCH (13:02)
[2021-02-10] MEDS: TAMSULOSIN 0.4 MG CAP.ER.24H PO SCH (15:30)
[2021-02-10 17:50] LABS: Glucose,Whole Blood 131 mg/dL (75-99)
--- NOTE | 2021-02-10 19:44 | DS ---
DISCHARGE SUMMARY DISCHARGE DIAGNOSIS: 1. back pain. 2. Lumbar stenosis. 3. Mechanical back pain. 4. Mid back pain. 5. Left upper lobe pneumonia. 6. Encephalopathy secondary to acute hypoxemic respiratory distress secondary to pneumonia. 7. Covid encephalopathy. 8. Recent lumbar surgery. 9. Left leg hemiparesis. DISCHARGE MEDICINES: 1. Cozaar 25 mg daily. 2. Flomax 0.4 mg daily. 3. Folic acid 1 mg daily. 4. Potassium chloride 10 mEq daily. 5. Bumex 1 mg b.i.d. 6. DuoNeb updraft q.i.d. 7. Lexapro 10 mg daily. 8. Azithromycin 500 mg daily for 5 days. 9. Singulair 10 mg daily. 10.Amaryl 1 mg b.i.d. 11.Loratadine 10 mg daily. 12.Senna 1 tablet daily. 13.Oxycodone HCL 5 mg q.6 hours. 14.Gabapentin 300 t.i.d. 15.Aspirin 81 mg daily. 16.Lovenox 40 mg subcutaneously daily. 17.Accu-Chek protocol. 18.Levemir 20 units daily. CONDITION: Stable. PROGNOSIS: Guarded. Ambulate as tolerated. White female as mentioned above came into the hospital with left upper lobe pneumonia, altered mental status secondary to encephalopathy due to left upper lobe pneumonia, was treated with multiple antibiotics, improved with Zosyn and azithromycin, switched to azithromycin on discharge. Physical therapy, status post lumbar surgery showed her legs improving. She was also going through some bereavement with her just dying. She was started on Lexapro 10 mg a day for depression, which is improving. Patient will continue with this medicine and follow up with Dr. Lisa in the long term. Follow with pneumonia and physical therapy on her left leg and her gait imbalance prior to going home. Diet will be as tolerated. Condition stable. Prognosis guarded. MMODL / IJN: [id number] /
[2021-02-10] MEDS: MONTELUKAST 10 MG TAB PO SCH (20:39)
[2021-02-10] MEDS: ASPIRIN 81 MG PO SCH (20:39)
[2021-02-10] MEDS: AZITHROMYCIN 500 MG TAB PO SCH (20:40)
[2021-02-10 20:49] LABS: Glucose,Whole Blood 187 mg/dL (75-99)
[2021-02-11 07:53] LABS: Glucose,Whole Blood 80 mg/dL (75-99)
[2021-02-11 08:39] VITALS: RESP 16
[2021-02-11] MEDS: IPRATROPIUM-ALBUTEROL 3 ML NEB INHALATION SCH ×2 (09:20→12:09)
[2021-02-11] MEDS: FOLIC ACID 1 MG TAB PO SCH (09:41)
[2021-02-11] MEDS: GABAPENTIN 300 MG CAP PO SCH (09:41)
[2021-02-11] MEDS: POTASSIUM CHLORIDE ER 10 MEQ TAB.ER.PRT PO SCH (09:41)
[2021-02-11] MEDS: LOSARTAN 25 MG TAB PO SCH (09:41)
[2021-02-11] MEDS: ENOXAPARIN 40 MG/0.4 ML SYRINGE SQ SCH (09:42)
[2021-02-11] MEDS: SENNOSIDES-DOCUSATE SODIUM 1 EACH TAB PO SCH (09:42)
[2021-02-11] MEDS: INSULIN DETEMIR (LEVEMIR) 100 UNIT/ML SYR SQ SCH (09:54)
[2021-02-11] MEDS: ESCITALOPRAM 10 MG TAB PO SCH (09:55)
[2021-02-11] MEDS: GLIMEPIRIDE 1 MG TAB PO SCH (09:56)
[2021-02-11] MEDS: BUMETANIDE 1 MG TAB PO SCH (09:56)
[2021-02-11] MEDS: ACETAMINOPHEN TAB 325 MG TAB PO PRN ×2 (10:04→14:30)
[2021-02-11 12:22] LABS: Glucose,Whole Blood 114 mg/dL (75-99)
[2021-02-11 15:20] VITALS: BP 125/63; PULSE 96; TEMP 98.4
--- NOTE | 2021-02-11 17:28 | PN ---
PROGRESS NOTE White female is kept one more night as she has found a new group home to go to, [facility] [place]. Home medicines were went over with the nurses and the patient. Cardiovascular: S1-S2. Lungs clear. Psych: Fair mood and affect. Neurologic: Alert and orient x3. Musculoskeletal: Limited motion due to left leg pain and swelling. ASSESSMENT: 1. Pneumonia, left lower lobe. 2. Acute hypoxemic respiratory failure. 3. Status post lumbar surgery. 4. Insulin-dependent diabetes mellitus. 5. Hypertension. 6. Dyslipidemia. 7. Urinary retention, improved with Flomax. Prognosis guarded. Follow up in the group home. MMODL / IJN: [id number] /
== END 2021-02-11 15:04 | DRG 193 ==
LOC: EC 05:14 → 1SOBS 05:43 → 6NMEDSUR 14:25 → OBSVTOIN 14:30 → 6NMEDSUR 18:12
PROVIDERS: ADMIT Family Medicine; ATTEND Family Medicine
DX: J18.9 Pneumonia, unspecified organism (principal); J96.01 Acute respiratory failure with hypoxia; G93.41 Metabolic encephalopathy; I50.32 Chronic diastolic (congestive) heart failure; I13.0 Hypertensive heart and chronic kidney disease with heart failure and stage 1 through stage 4 chronic kidney disease, or unspecified chronic kidney disease; J44.0 Chronic obstructive pulmonary disease with (acute) lower respiratory infection; E44.1 Mild protein-calorie malnutrition; G81.94 Hemiplegia, unspecified affecting left nondominant side; M25.552 Pain in left hip; Z86.16 Personal history of COVID-19; E11.22 Type 2 diabetes mellitus with diabetic chronic kidney disease; N18.2 Chronic kidney disease, stage 2 (mild); M54.6 Pain in thoracic spine; J44.9 Chronic obstructive pulmonary disease, unspecified; F32.9 Major depressive disorder, single episode, unspecified; E78.5 Hyperlipidemia, unspecified; G47.33 Obstructive sleep apnea (adult) (pediatric); E66.9 Obesity, unspecified; K52.9 Noninfective gastroenteritis and colitis, unspecified; M19.90 Unspecified osteoarthritis, unspecified site; N28.9 Disorder of kidney and ureter, unspecified; M54.16 Radiculopathy, lumbar region; R29.6 Repeated falls; M48.061 Spinal stenosis, lumbar region without neurogenic claudication; F41.9 Anxiety disorder, unspecified; Y95 Nosocomial condition; S70.00XA Contusion of unspecified hip, initial encounter; R42 Dizziness and giddiness; J98.01 Acute bronchospasm; G89.29 Other chronic pain; I25.10 Atherosclerotic heart disease of native coronary artery without angina pectoris; H72.90 Unspecified perforation of tympanic membrane, unspecified ear; R41.0 Disorientation, unspecified; V48.4XXA Person boarding or alighting a car injured in noncollision transport accident, initial encounter; Y92.009 Unspecified place in unspecified non-institutional (private) residence as the place of occurrence of the external cause; G43.909 Migraine, unspecified, not intractable, without status migrainosus; Z87.11 Personal history of peptic ulcer disease; Z87.19 Personal history of other diseases of the digestive system; Z87.442 Personal history of urinary calculi; Z88.8 Allergy status to other drugs, medicaments and biological substances; Z90.49 Acquired absence of other specified parts of digestive tract; Z86.010 Personal history of colon polyps; Z99.89 Dependence on other enabling machines and devices; Z81.1 Family history of alcohol abuse and dependence; Z80.8 Family history of malignant neoplasm of other organs or systems; Z83.79 Family history of other diseases of the digestive system; Z98.890 Other specified postprocedural states; Z90.89 Acquired absence of other organs; Z90.710 Acquired absence of both cervix and uterus; Z63.4 Disappearance and death of family member; Z79.4 Long term (current) use of insulin; Z79.82 Long term (current) use of aspirin; Z79.899 Other long term (current) drug therapy; Z86.718 Personal history of other venous thrombosis and embolism; Z91.041 Radiographic dye allergy status; Z96.651 Presence of right artificial knee joint
CPT/HCPCS: 70450; 70544; 70551; 71045; 80053; 81003; 83605; 83735; 84100; 84484; 85025; 85610; 85730; 87086; 93306; 93880; 94640; 94760; 99284

== ENCOUNTER → 2021-08-06 | Outpatient (CLI) | payer MEDICARE, OTHER ==
--- NOTE | 2021-08-06 16:26 | MR ---
EXAMINATION TYPE: MR lumbar spine wo con DATE OF EXAM: 08/06/2021 COMPARISON: Prior lumbar MRI dated 11/20/2020 HISTORY: LBP, BLE radiculopathy, prior surgery. TECHNIQUE: Multiplanar, multisequence images of the lumbar spine were acquired without IV contrast. T11-T12 shows a posterior disc herniation contacting the anterior cervical cord as on prior, sagittal image 9, axial image #33, possible mass effect on the cord at this level. Nerve sheaths diverticulum is present on the left at this level. L1-L2: Normal disc appearance without desiccation. No herniation, protrusion or disc bulging. No ca nal stenosis is present. Foramina are patent bilaterally. L2-L3: Posterior broad-based disc bulge is noted effacing the anterior thecal sac as on prior. Minima l encroachment on the inferior neural foramina is similar to prior exam. L3-L4: Left posterior paracentral disc herniation causing anterolateral mass effect on the thecal sac , encroachment on the lateral recess is again noted circumferential extension of endplate disc comple x encroaches on the inferior aspect of the foramina similar to prior. There is likely encroachment on the left L4 nerve root as on prior. L4-L5: Marked facet arthropathy changes are present. No evident foraminal encroachment. Small left po sterior paracentral disc protrusion at the level of the lateral recess shows a similar appearance. L5-S1: No interval change. No significant foraminal encroachment. Facet arthropathy changes are prese nt. Minimal posterior disc protrusion is stable. Lumbar segments show preserved height, stable alignment, minimal retrolisthesis grade 1 L2-3. Postop changes are present status post posterior laminectomies L3-L5. No paraspinal masses are identified. Conus medullaris has a normal appearance. Multilevel spondylosis is present, there is loss of disc h eight signal greatest at L2-3, L3-4. No significant spinal stenosis. IMPRESSION: Degenerative disc disease at multiple levels as described. Multilevel facet arthropathy. Interval demar hannah.
== END | disposition home or self-care (01) ==
LOC: RADMRIMAIN 15:22
PROVIDERS: ATTEND Orthopaedic Surgery
DX: M51.16 Intervertebral disc disorders with radiculopathy, lumbar region (principal); M47.26 Other spondylosis with radiculopathy, lumbar region
CPT/HCPCS: 72148

== ENCOUNTER 2021-08-29 11:57 | Emergency (ER) | payer MEDICARE, OTHER ==
[2021-08-29] MEDS ORDERED: HYDROmorphone 1 MG/ML 1 ML SYRINGE IM STA (12:37)
--- NOTE | 2021-08-29 13:16 | XR ---
EXAMINATION TYPE: XR knee complete LT DATE OF EXAM: 08/29/2021 CLINICAL HISTORY: Pain after fall injury. TECHNIQUE: Three views of the left knee are obtained. COMPARISON: None. FINDINGS: There is no acute fracture/dislocation evident in the left knee. Meniscal calcification. A t least moderate-compartment joint space loss greatest medial tibiofemoral compartment with mild to m oderate spurring patellofemoral and medial tibiofemoral compartments. Overlying soft tissue is unrema rkable. IMPRESSION: There is no acute fracture or dislocation in the left knee.
--- NOTE | 2021-08-29 13:17 | XR ---
EXAMINATION TYPE: XR ankle complete LT, XR foot complete LT DATE OF EXAM: 08/29/2021 CLINICAL HISTORY: Pain after fall injury TECHNIQUE: Frontal, lateral and oblique images of the left ankle and foot are obtained. COMPARISON: None. FINDINGS: Osseous structures are somewhat demineralized. There is no acute fracture/dislocation evid ent in the left ankle. The ankle mortise appears within normal limits. The overlying soft tissue ap pears unremarkable. There is no acute fracture or dislocation evident in the left foot. The joint spaces in the left kendra t are preserved. Overlying soft tissue is unremarkable. IMPRESSION: There is no acute fracture or dislocation in the left ankle or foot.
[2021-08-29] MEDS ORDERED: ACET/COD 300 MG/30 MG STARTER PACK 6 TAB BTL PO STA (13:27)
--- NOTE | 2021-08-29 13:29 | ED ---
Lower Extremity Injury HPI - General Chief Complaint: Extremity Injury, Lower Stated Complaint: left foot injury Time Seen by Provider: 08/29/21 12:27 Source: patient, RN notes reviewed Mode of arrival: wheelchair Limitations: no limitations - History of Present Illness Initial Comments: This is a 65-year-old female presents emergency department with chief complaint of trip and fall. Patient states she has left foot drop states this is caused by her back fusion. Patient states that she got up and walk without her brace that she drank her toe causing her to fall she winds of toe pain, left knee pain, syncope pain. No injury no loss conscious to other injuries noted. - Related Data Home Medications Medication Instructions Recorded Confirmed Glimepiride [Amaryl] 1 mg PO BID 10/17/20 02/02/21 Montelukast [Singulair] 10 mg PO HS 10/17/20 02/02/21 Loratadine 10 mg PO DAILY PRN 11/19/20 02/02/21 Aspirin EC [Ecotrin Low Dose] 81 mg PO HS 12/29/20 02/02/21 Sennosides/Docusate Sodium [Senna 1 cap PO DAILY 01/14/21 02/02/21 Plus 8.6-50 mg Softgel] INSULIN ASPART (NovoLOG) [NovoLOG See Protocol SQ ACHS 01/19/21 02/02/21 (formulary)] Insulin Detemir (Levemir) [Levemir] 20 unit SQ DAILY 02/02/21 02/02/21 Previous Rx's Medication Instructions Recorded Enoxaparin [Lovenox] 40 mg SQ DAILY syringe 01/19/21 Azithromycin [Zithromax] 500 mg PO HS 5 Days #5 tab 02/10/21 Bumetanide [BUMEX] 1 mg PO BID@0900,1600 tab 02/10/21 Escitalopram [Lexapro] 10 mg PO DAILY tab 02/10/21 Folic Acid 1 mg PO DAILY tab 02/10/21 Ipratropium-Albuterol Nebulize 3 ml INHALATION RT-QID ml 02/10/21 [Duoneb 0.5 mg-3 mg/3 ml Soln] Losartan [Cozaar] 25 mg PO DAILY tab 02/10/21 Potassium Chloride ER [K-Dur 10] 10 meq PO DAILY 02/10/21 Tamsulosin [Flomax] 0.4 mg PO PC-SUPPER 02/10/21 Gabapentin 300 mg PO TID #9 cap 02/11/21 oxyCODONE HCL [OxyIR] 5 mg PO Q6H PRN #12 tab 02/11/21 Allergies Allergy/AdvReac Type Severity Reaction Status Date / Time Iodinated Contrast Media Allergy Severe Anaphylaxis Verified 08/29/21 12:20 [Iodinated Contrast Media - IV Dye] iodine Allergy Anaphylaxis Verified 08/29/21 12:20 [place]-[id number]-ZsT Reductase Allergy Anaphylaxis Verified 08/29/21 12:20 Inhibitor [Wzrsssf-Lqx-Idz Reductase Inhibitor] Review of Systems ROS Statement: Those systems with pertinent positive or pertinent negative responses have been documented in the HPI. ROS Other: All systems not noted in ROS Statement are negative. Past Medical History Past Medical History: Asthma, Coronary Artery Disease (CAD), COPD, Diabetes Mellitus, Deep Vein Thrombosis (DVT), GERD/Reflux, Hyperlipidemia, Hypertension, Musculoskeletal Disorder, Osteoarthritis (OA), Renal Disease, Sleep Apnea/CPAP/BIPAP Additional Past Medical History / Comment(s): PUD, colitis, benign colon polyps, DVT L leg, migraines, ANDREW - uses cpap. kidney stones, CKD stage II, vertigo, recurrent L ear infections/ruptured eardrum, TMJ, mild CAD, back prob - NT Lt arm, leg. Edema BLE. covid + 01/19/2021 History of Any Multi-Drug Resistant Organisms: None Reported Past Surgical History: Appendectomy, Cholecystectomy, Ear Surgery, Heart Catheterization, Hysterectomy, Joint Replacement, Orthopedic Surgery, Tonsillectomy Additional Past Surgical History / Comment(s): R/L knee arthroscopies, L ear patch/graft, EGD, colonoscopy/polypectomy, throat abscess. Right knee replacement, back surgery, Past Anesthesia/Blood Transfusion Reactions: Postoperative Nausea & Vomiting (PONV) Past Psychological History: Anxiety Smoking Status: Never smoker Past Alcohol Use History: None Reported Past Drug Use History: None Reported - Past Family History Father Family Medical History: Cancer Additional Family Medical History / Comment(s): Throat, brain cancer. Father was an alcoholic. Mother Family Medical History: Liver Disease Additional Family Medical History / Comment(s): Mother is . She was an alcoholic. General Exam Limitations: no limitations General appearance: alert, in no apparent distress Head exam: Present: atraumatic, normocephalic, normal inspection Eye exam: Present: normal appearance, PERRL, EOMI. Absent: scleral icterus, conjunctival injection, periorbital swelling ENT exam: Present: normal exam, normal oropharynx, mucous membranes moist Neck exam: Present: normal inspection, full ROM. Absent: tenderness, meningismus, lymphadenopathy Respiratory exam: Present: normal lung sounds bilaterally. Absent: respiratory distress, wheezes, rales, rhonchi, stridor Cardiovascular Exam: Present: regular rate, normal rhythm, normal heart sounds. Absent: systolic murmur, diastolic murmur, rubs, gallop, clicks Extremities exam: Present: other (Left knee mild tenderness, swelling, left ankle tenderness left foot tenderness primarily over the first MTP region with ecchymosis noted neurovascular intact) Course Vital Signs 08/29/21 08/29/21 12:18 14:03 Temperature 98.6 F 98 F Pulse Rate 74 78 Respiratory 18 16 Rate Blood Pressure 108/63 128/78 O2 Sat by Pulse 95 98 Oximetry Medical Decision Making - Medical Decision Making X-ray does not reveal any significant findings, dry changes, no fracture. Disposition Clinical Impression: Contusion of left foot, Left knee sprain Disposition: HOME SELF-CARE Condition: Stable Instructions (If sedation given, give patient instructions): Knee Sprain (ED), Foot Contusion (ED) Additional Instructions: Please return to the Er for any concerns Is patient prescribed a controlled substance at d/c from ED?: No Referrals: Tavo Lisa MD [Primary Care Provider] - 1-2 days Time of Disposition: 13:29
[2021-08-29 14:03] VITALS: BP 128/78; PULSE 78; RESP 16; TEMP 98
== END 2021-08-29 14:03 | disposition home or self-care (01) ==
LOC: EC 11:57
DX: S83.92XA Sprain of unspecified site of left knee, initial encounter (principal); S90.32XA Contusion of left foot, initial encounter; J44.9 Chronic obstructive pulmonary disease, unspecified; I12.9 Hypertensive chronic kidney disease with stage 1 through stage 4 chronic kidney disease, or unspecified chronic kidney disease; N18.2 Chronic kidney disease, stage 2 (mild); E11.22 Type 2 diabetes mellitus with diabetic chronic kidney disease; Z91.040 Latex allergy status; Z88.8 Allergy status to other drugs, medicaments and biological substances; Z79.899 Other long term (current) drug therapy; Z79.4 Long term (current) use of insulin; Z79.82 Long term (current) use of aspirin; Z86.16 Personal history of COVID-19; Z79.84 Long term (current) use of oral hypoglycemic drugs; W01.0XXA Fall on same level from slipping, tripping and stumbling without subsequent striking against object, initial encounter
CPT/HCPCS: 73562; 73610; 73630; 99283; 96372; J1170

== ENCOUNTER 2021-09-04 14:56 | Emergency (ER) | payer MEDICARE, OTHER ==
--- NOTE | 2021-09-04 15:55 | ED ---
General Adult HPI - General Chief complaint: Fall Stated complaint: Fall/head injury Time Seen by Provider: 09/04/21 15:46 Source: patient Mode of arrival: wheelchair Limitations: no limitations - History of Present Illness Initial comments: Patient presents to the ED (patient states that her grandson drove her here) stating that she accidentally spilled some hot Ramen noodles on herself 3 days ago, which caused her to jump and accidentally fall down. Patient states that she landed on her left knee and left hip at that time. Patient also states that she hit the back of her head on the ground at that time, but she denies LOC. Patient states that she has been having left knee, left hip and head pain since then. Patient denies suffering any weaver. Patient denies anticoagulant medication use. Patient states that she has been ambulatory since her injury, but she states that it hurts at times to ambulate on her left leg. Patient denies any other injury or site of pain, focal numbness/weakness/neuro deficit, neck/back pain, upper extremity pain, chest pain, dyspnea, dizziness, abdominal pain, nausea or vomiting, or any other symptoms or complaints. - Related Data Home Medications Medication Instructions Recorded Confirmed Glimepiride [Amaryl] 1 mg PO BID 10/17/20 09/04/21 Montelukast [Singulair] 10 mg PO HS 10/17/20 09/04/21 ARIPiprazole [Abilify] 2 mg PO HS 09/04/21 09/04/21 Bumetanide [BUMEX] 1 mg PO BID 09/04/21 09/04/21 Escitalopram [Lexapro] 20 mg PO HS 09/04/21 09/04/21 Meloxicam 15 mg PO HS 09/04/21 09/04/21 Potassium Chloride ER [K-Dur 20] 20 meq PO HS 09/04/21 09/04/21 Tamsulosin [Flomax] 0.4 mg PO HS 09/04/21 09/04/21 atenoloL [Tenormin] 25 mg PO BID 09/04/21 09/04/21 Previous Rx's Medication Instructions Recorded Gabapentin 300 mg PO TID #9 cap 02/11/21 Allergies Allergy/AdvReac Type Severity Reaction Status Date / Time Iodinated Contrast Media Allergy Severe Anaphylaxis Verified 09/04/21 16:47 [Iodinated Contrast Media - IV Dye] iodine Allergy Anaphylaxis Verified 09/04/21 16:47 Iqzjvbf-MWJ-OwJ Reductase Allergy Anaphylaxis Verified 09/04/21 16:47 Inhibitor [Pecjysh-Lte-Mas Reductase Inhibitor] Review of Systems ROS Statement: Those systems with pertinent positive or pertinent negative responses have been documented in the HPI. ROS Other: All systems not noted in ROS Statement are negative. Past Medical History Past Medical History: Asthma, Coronary Artery Disease (CAD), COPD, Diabetes Mellitus, Deep Vein Thrombosis (DVT), GERD/Reflux, Hyperlipidemia, Hypertension, Musculoskeletal Disorder, Osteoarthritis (OA), Renal Disease, Sleep Apnea/CPAP/BIPAP Additional Past Medical History / Comment(s): PUD, colitis, benign colon polyps, DVT L leg, migraines, ANDREW - uses cpap. kidney stones, CKD stage II, vertigo, recurrent L ear infections/ruptured eardrum, TMJ, mild CAD, back prob - NT Lt arm, leg. Edema BLE. covid + 01/19/2021 History of Any Multi-Drug Resistant Organisms: None Reported Past Surgical History: Appendectomy, Cholecystectomy, Ear Surgery, Heart Catheterization, Hysterectomy, Joint Replacement, Orthopedic Surgery, Tonsillectomy Additional Past Surgical History / Comment(s): R/L knee arthroscopies, L ear patch/graft, EGD, colonoscopy/polypectomy, throat abscess. Right knee replacement, back surgery, Past Anesthesia/Blood Transfusion Reactions: Postoperative Nausea & Vomiting (PONV) Past Psychological History: Anxiety Smoking Status: Never smoker Past Alcohol Use History: None Reported Past Drug Use History: None Reported - Past Family History Father Family Medical History: Cancer Additional Family Medical History / Comment(s): Throat, brain cancer. Father was an alcoholic. Mother Family Medical History: Liver Disease Additional Family Medical History / Comment(s): Mother is . She was an alcoholic. General Exam Limitations: no limitations General appearance: alert, in no apparent distress Head exam: Present: atraumatic, normocephalic Eye exam: Present: normal appearance, PERRL, EOMI ENT exam: Present: mucous membranes moist Neck exam: Present: normal inspection, other (Trachea is in midline). Absent: tenderness Respiratory exam: Present: normal lung sounds bilaterally. Absent: respiratory distress, wheezes, rales, rhonchi, stridor Cardiovascular Exam: Present: regular rate, normal rhythm, normal heart sounds, other (Normal radial pulses bilaterally; normal left dorsalis pedis pulse) GI/Abdominal exam: Present: soft. Absent: distended, tenderness, guarding Extremities exam: Present: other (Left lateral hip tenderness; left anterior knee tenderness; pelvis is stable and nontender; no deformity or joint laxity is appreciated). Absent: pedal edema, calf tenderness Back exam: Present: normal inspection. Absent: tenderness Neurological exam: Present: alert, oriented X3, CN II-XII intact. Absent: motor sensory deficit Psychiatric exam: Present: normal affect, normal mood Skin exam: Present: warm, dry, intact, normal color Course Vital Signs 09/04/21 14:57 Temperature 98.9 F Pulse Rate 105 H Respiratory 18 Rate Blood Pressure 115/68 O2 Sat by Pulse 94 L Oximetry - Reevaluation(s) Reevaluation #1: 09/04/21 18:15 Patient remains alert and breathing comfortably. Patient is aware of her negative imaging studies, and she feels comfortable being discharged home at this time. Patient was counseled about head injuries and lower extremity contusions. Patient was clearly explained return and follow-up instructions, and she was instructed to follow up closely with her primary care provider. Patient feels comfortable with this plan. Medical Decision Making - Medical Decision Making Patient's imaging studies are negative for acute findings. Patient remains alert and breathing comfortably in the ED. I do not suspect an emergent medical condition at this time. Will discharge patient home at this time. - Radiology Data Noncontrast head CT: No acute intracranial process. Left hip x-rays: No acute osseous pathology. Mild osteoarthritic changes with o sandeep hanging acetabulum which could suggest pincher impingement. Left knee x-rays: No acute osseous pathology. Moderate tricompartmental osteoarthritic changes, not significantly changed from prior. Meniscal chondrocalcinosis. Left foot x-rays: No evidence of acute fracture. Scattered mild osteophytic changes throughout the foot. Disposition Clinical Impression: Fall, Contusion of left knee, Contusion of left hip, Head injury Disposition: HOME SELF-CARE Condition: Stable Instructions (If sedation given, give patient instructions): Fall Prevention (ED), Contusion in Adults (ED), Head Injury (ED) Additional Instructions: Return to the ER immediately should you develop new or worsening pain, feeling dizzy or faint, shortness of breath, or new or worsening symptoms. Follow up closely with your primary care provider. Is patient prescribed a controlled substance at d/c from ED?: No Referrals: Tavo Lisa MD [Primary Care Provider] - 1-2 days Time of Disposition: 18:16
--- NOTE | 2021-09-04 16:23 | XR ---
EXAMINATION TYPE: XR knee complete LT DATE OF EXAM: 09/04/2021 4:09 PM INDICATION: Patient age:Female; 65 years old; Reason for study: pain; COMPARISON: Right knee 08/29/2021 TECHNIQUE: The Left knee(s) was examined in 3 projections. FINDINGS: Chondrocalcinosis is present. Tricompartmental osteoarthritic changes with osteophyte form ation. No evidence of any acute osseous pathology. Mild joint space narrowing suggested. , No signifi cant soft tissue swelling. No joint effusion identified. IMPRESSION: 1. No acute osseous pathology. 2. Moderate tricompartmental osteoarthritic changes, not significantly changed from prior. 3. Meniscal chondrocalcinosis.
--- NOTE | 2021-09-04 16:44 | XR ---
EXAMINATION TYPE: XR Hip Complete LT DATE OF EXAM: 09/04/2021 4:09 PM INDICATION: Patient age:Female; 65 years old; Reason for study: pain; COMPARISON: CT left hip 02/03/2021 TECHNIQUE: The left hip was examined in the frontal and lateral projections FINDINGS: No evidence of any acute osseous pathology, joint dislocation, or soft tissue swelling. Mil d degenerative changes are seen involving the acetabulum. IMPRESSION: 1. No acute osseous pathology. 2. Mild osteoarthritic changes with overhanging acetabulum which could suggest pincher impingement.
--- NOTE | 2021-09-04 16:47 | XR ---
EXAMINATION TYPE: XR foot complete LT DATE OF EXAM: 09/04/2021 4:10 PM INDICATION: Patient age:Female; 65 years old; Reason for study: Left foot pain; COMPARISON: Foot radiographs 08/29/2021. TECHNIQUE: The left foot was examined in the AP, oblique, and lateral projections. FINDINGS: No evidence of any acute osseous pathology. No evidence of soft tissue swelling. Joints are preserve d. Os peroneum is noted. Scattered degenerative changes are seen throughout the joints of the foot. IMPRESSION: 1. No evidence of acute fracture. 2. Scattered mild osteophytic changes throughout the foot.
--- NOTE | 2021-09-04 16:57 | CT ---
EXAMINATION TYPE: CT brain wo con CT DLP: 1129.4 mGycm, Automated exposure control for dose reduction was used. DATE OF EXAM: 09/04/2021 4:38 PM COMPARISON: MRI brain 02/03/2021. CLINICAL INDICATION:Female, 65 years old with history of head injury, WORRELL, Head injury. No LOC TECHNIQUE: Brain: Multiple axial CT images of the brain were obtained without IV contrast. FINDINGS: Brain: Extra-axial spaces: No abnormal extra-axial fluid collections. Ventricular system: Within normal limits Cerebral parenchyma: No acute intraparenchymal hemorrhage or mass effect. The anderson-white junction is well differentiated. Cerebellum: Unremarkable. Mass effect: No evidence of midline shift. Intracranial vasculature: Atherosclerotic calcifications of the intracranial vessels. Soft tissues: Normal. Calvarium/osseous structures: No depressed skull fracture. Paranasal sinuses and mastoid air cells: Mild scattered paranasal sinus disease. Right aubrie bullosa . Antrostomy changes bilaterally. Visualized orbits: Orbital contents are intact. IMPRESSION: No acute intracranial process.
[2021-09-04 18:20] VITALS: PULSE 78; RESP 16
[2021-09-04] MEDS ORDERED: HYDROcodone/APAP 5-325MG 1 EACH TAB PO STA (18:49)
[2021-09-04 19:21] VITALS: BP 122/78; TEMP 98.4
== END 2021-09-04 19:20 | disposition home or self-care (01) ==
LOC: EC 14:56
DX: S80.02XA Contusion of left knee, initial encounter (principal); S70.02XA Contusion of left hip, initial encounter; S09.90XA Unspecified injury of head, initial encounter; E11.22 Type 2 diabetes mellitus with diabetic chronic kidney disease; I12.9 Hypertensive chronic kidney disease with stage 1 through stage 4 chronic kidney disease, or unspecified chronic kidney disease; N18.2 Chronic kidney disease, stage 2 (mild); J44.9 Chronic obstructive pulmonary disease, unspecified; I25.10 Atherosclerotic heart disease of native coronary artery without angina pectoris; E78.5 Hyperlipidemia, unspecified; K21.9 Gastro-esophageal reflux disease without esophagitis; M19.90 Unspecified osteoarthritis, unspecified site; F41.9 Anxiety disorder, unspecified; Z79.84 Long term (current) use of oral hypoglycemic drugs; Z79.899 Other long term (current) drug therapy; W01.0XXA Fall on same level from slipping, tripping and stumbling without subsequent striking against object, initial encounter
CPT/HCPCS: 70450; 73502; 99284

== ENCOUNTER → 2021-10-22 | Outpatient (CLI) | payer MEDICARE, OTHER ==
--- NOTE | 2021-10-23 05:26 | XR ---
EXAMINATION TYPE: XR ankle complete RT DATE OF EXAM: 10/22/2021 COMPARISON: None available INDICATION: Severe pain after stepping in a hole TECHNIQUE: Standard 3 views of the right ankle FINDINGS: No definite acute fracture line identified. Preserved ankle mortise with a smooth talar dome. No siza ble ankle joint effusion. Tiny posterior calcaneal enthesophytosis at the insertion of the Achilles t endon with inferior calcaneal spur. IMPRESSION: No definite acute fracture or dislocation identified.
== END | disposition home or self-care (01) ==
LOC: RADXRMAIN 13:01
PROVIDERS: ATTEND Family Medicine
DX: M25.571 Pain in right ankle and joints of right foot (principal)

== ENCOUNTER → 2021-11-11 | Outpatient (CLI) | payer MEDICARE ==
--- NOTE | 2021-11-11 12:54 | CT ---
EXAMINATION TYPE: CT lumbar spine wo con DATE OF EXAM: 11/11/2021 COMPARISON: 11/09/2020 HISTORY: Lumbar spondylosis CT DLP: 1225.9 mGycm CONTRAST: None TECHNIQUE: CT of the lumbar spine is performed on a spiral scan at 3 mm thick sections. Reconstructed images are performed in the coronal and sagittal planes. FINDINGS: Sacroiliac joint vacuum phenomenon is present. T12-L1: No focal disc herniation or significant disc bulge is evident. No spinal canal stenosis or neural foraminal stenosis is present. L1-L2: No focal disc herniation or significant disc bulge is evident. No spinal canal stenosis or n eural foraminal stenosis is present L2-L3: Broad-based disc bulge is present with moderate anterior thecal sac compression. No AP spinal canal stenosis is present. Moderate bilateral foraminal stenosis is present. L3-L4: There is narrowing of the disc height. No significant disc bulge is evident. No spinal canal s tenosis or neural foraminal stenosis present. Laminectomies at L3 and L4 present. L4-L5: Mild disc bulge is present with anterior thecal sac flattening. Ligamentum flavum laxity is pr esent. There is been a laminectomy. AP spinal canal stenosis is not identified. Facet hypertrophy i s present. L5-S1: No focal disc herniation or significant disc bulge is evident. No spinal canal stenosis or n eural foraminal stenosis is present. Facet hypertrophy is present. Vertebral alignment appears normal. Previous disc bulges L3-4 and L4-5 are not evident on the current exam. IMPRESSION: Post laminectomy L3 and L4. 2. Disc bulge L4-5 with anterior thecal sac flattening. Broad-based disc bulge at L2-3 also has moder ate anterior thecal sac impression.
== END | disposition home or self-care (01) ==
LOC: RADCTMAIN 07:01
PROVIDERS: ATTEND Orthopaedic Surgery
DX: M51.26 Other intervertebral disc displacement, lumbar region (principal); M96.1 Postlaminectomy syndrome, not elsewhere classified
CPT/HCPCS: 72131

== ENCOUNTER 2022-02-25 13:39 | Emergency (ER) | payer MEDICARE, OTHER ==
--- NOTE | 2022-02-25 15:44 | XR ---
EXAMINATION TYPE: XR knee complete LT DATE OF EXAM: 02/25/2022 COMPARISON: 09/04/2021 HISTORY: 66-year-old female pain after fall TECHNIQUE: AP, oblique, and lateral views FINDINGS: Redemonstrated meniscal chondrocalcinosis. Redemonstrated moderate narrowing of medial compartment ca rtilage and joint space. Tricompartmental degenerative spurring. Mild joint space narrowing lateral c ompartment on this nonweightbearing view. Trace knee joint effusion. Extensor mechanism appears intac t. There is osteopenia. No acute fracture, subluxation, or dislocation is seen. IMPRESSION: Redemonstrated tricompartmental osteoarthrosis, moderate in the medial compartment. Trace knee joint effusion may be reactive. No acute osseous abnormality seen.
[2022-02-25] MEDS ORDERED: ACETAMINOPHEN TAB 500 MG TAB PO STA (19:09)
[2022-02-25] MEDS ORDERED: SODIUM CHLORIDE 0.9% 1,000 ML IV STA (19:09)
[2022-02-25] MEDS ORDERED: traMADol 50 MG TAB PO STA (19:11)
--- NOTE | 2022-02-25 19:17 | ED ---
General Adult HPI - General Chief complaint: Extremity Injury, Lower Stated complaint: fall, knee pain Time Seen by Provider: 02/25/22 19:03 Source: patient, RN notes reviewed Mode of arrival: wheelchair Limitations: no limitations - History of Present Illness Initial comments: This is a pleasant 66-year-old female presents to emergency department after a fall. Patient states she felt lightheaded and then fell to her left landing on her left side. She injured her left knee and hit her left parietal scalp on pavement. She did not lose consciousness. She is denying any nausea or vomiting but complains of a rather severe headache. Denying any vision or hearing disturbance. Patient had no vertiginous symptoms. Denied any preceding chest pain or abdominal pain. There were no symptoms of syncope. Patient not on blood thinners. Patient was unable get up on her own. Patient arrived via EMS. Patient also complaining of some mild pain in her lower back and right chest wall after the injury. LIGHTHEADEDNESS, no fever or chills, no changes in vision or hearing, no sore throat or difficulty with speech, no neck pain, no chest pain or shortness of breath, no abdominal pain, no nausea or vomiting, no changes in urination or bowel movements, no numbness or tingling, no skin rashes or lesions. Past medical, surgical, social, and family history reviewed. - Related Data Home Medications Medication Instructions Recorded Confirmed Glimepiride [Amaryl] 1 mg PO BID 10/17/20 09/04/21 Montelukast [Singulair] 10 mg PO HS 10/17/20 09/04/21 ARIPiprazole [Abilify] 2 mg PO HS 09/04/21 09/04/21 Bumetanide [BUMEX] 1 mg PO BID 09/04/21 09/04/21 Escitalopram [Lexapro] 20 mg PO HS 09/04/21 09/04/21 Meloxicam 15 mg PO HS 09/04/21 09/04/21 Potassium Chloride ER [K-Dur 20] 20 meq PO HS 09/04/21 09/04/21 Tamsulosin [Flomax] 0.4 mg PO HS 09/04/21 09/04/21 atenoloL [Tenormin] 25 mg PO BID 09/04/21 09/04/21 Previous Rx's Medication Instructions Recorded Gabapentin 300 mg PO TID #9 cap 02/11/21 Nitrofurantoin Monohyd/M-Cryst 100 mg PO Q12HR #14 cap 02/25/22 [Macrobid] Allergies Allergy/AdvReac Type Severity Reaction Status Date / Time Iodinated Contrast Media Allergy Severe Anaphylaxis Verified 02/25/22 14:57 [Iodinated Contrast Media - IV Dye] iodine Allergy Anaphylaxis Verified 02/25/22 14:57 Jswhjxe-FDI-UaH Reductase Allergy Anaphylaxis Verified 02/25/22 14:57 Inhibitor [Ewrmphu-Gxd-Gud Reductase Inhibitor] Review of Systems ROS Statement: Those systems with pertinent positive or pertinent negative responses have been documented in the HPI. ROS Other: All systems not noted in ROS Statement are negative. Past Medical History Past Medical History: Asthma, Coronary Artery Disease (CAD), COPD, Diabetes Mellitus, Deep Vein Thrombosis (DVT), GERD/Reflux, Hyperlipidemia, Hypertension, Musculoskeletal Disorder, Osteoarthritis (OA), Renal Disease, Sleep Apnea/CPAP/ BIPAP Additional Past Medical History / Comment(s): PUD, colitis, benign colon polyps, DVT L leg, migraines, ANDREW - uses cpap. kidney stones, CKD stage II, vertigo, recurrent L ear infections/ruptured eardrum, TMJ, mild CAD, back prob - NT Lt arm, leg. Edema BLE. covid + 01/19/2021 History of Any Multi-Drug Resistant Organisms: None Reported Past Surgical History: Appendectomy, Cholecystectomy, Ear Surgery, Heart Catheterization, Hysterectomy, Joint Replacement, Orthopedic Surgery, Tonsillectomy Additional Past Surgical History / Comment(s): R/L knee arthroscopies, L ear patch/graft, EGD, colonoscopy/polypectomy, throat abscess. Right knee replacement, back surgery, Past Anesthesia/Blood Transfusion Reactions: Postoperative Nausea & Vomiting (PONV) Past Psychological History: Anxiety Smoking Status: Never smoker Past Alcohol Use History: None Reported Past Drug Use History: None Reported - Past Family History Father Family Medical History: Cancer Additional Family Medical History / Comment(s): Throat, brain cancer. Father was an alcoholic. Mother Family Medical History: Liver Disease Additional Family Medical History / Comment(s): Mother is . She was an alcoholic. General Exam - General Exam Comments Initial Comments: Vital signs reviewed, patient does not appear to be ill or toxic. No overt evidence of head trauma. Cranial nerves II through XII are intact. No focal deficits. Alert and oriented 4, cerebellar testing is normal Limitations: no limitations General appearance: alert, in distress, obese Head exam: Present: atraumatic, normocephalic, normal inspection Eye exam: Present: normal appearance, PERRL, EOMI. Absent: scleral icterus, conjunctival injection, periorbital swelling ENT exam: Present: normal exam, mucous membranes moist Neck exam: Present: normal inspection, tenderness (Patient has some tenderness to posterior neck. However no bony point tenderness. Range of motion essentially full but creates some pain.). Absent: meningismus, full ROM, lymphadenopathy Respiratory exam: Present: normal lung sounds bilaterally, chest wall tenderness (Minimal tenderness to the right chest wall, no crepitus, no break in skin integrity). Absent: respiratory distress, wheezes, rales, rhonchi, stridor, accessory muscle use, decreased breath sounds, prolonged expiratory Cardiovascular Exam: Present: regular rate, normal rhythm, normal heart sounds. Absent: systolic murmur, diastolic murmur, rubs, gallop, clicks GI/Abdominal exam: Present: soft, normal bowel sounds. Absent: distended, tenderness, guarding, rebound, rigid Extremities exam: Present: normal inspection, full ROM, normal capillary refill. Absent: tenderness, pedal edema, joint swelling, calf tenderness Back exam: Present: normal inspection, tenderness, paraspinal tenderness, vertebral tenderness (Patient has mild lumbar paraspinal tenderness with some tenderness in midline. No erythema. No crepitus. No rash or lesion). Absent: full ROM (Range was not fully tested as the patient is initially seen in the triage gage.), muscle spasm, rash noted Neurological exam: Present: alert, oriented X3, CN II-XII intact. Absent: altered, motor sensory deficit Psychiatric exam: Present: normal affect, normal mood Skin exam: Present: warm, dry, intact, normal color. Absent: rash, cyanosis, diaphoretic Course Vital Signs 02/25/22 14:49 Temperature 98.0 F Pulse Rate 74 Respiratory 18 Rate Blood Pressure 140/124 O2 Sat by Pulse 95 Oximetry - Reevaluation(s) Reevaluation #1: 02/25/22 22:13 Medical record is reviewed Symptoms are improved here in the emergency department Patient is informed of results and questions answered Patient in no distress Patient's imaging shows no evidence of acute process. Possible redemonstrated left knee effusion. Normal CT of the brain and cervical spine as far as for acute processes. Reevaluation #2: 02/26/22 01:27 Due to staffing issues patient spent an extended period of time in the waiting room. Patient was given first dose of antibiotic for urinary tract infection. All other testing was essentially normal. EKG Findings - EKG Comments: EKG Findings:: EKG done at 2030 and read by the ED attending physician reveals sinus rhythm with a left anterior fascicular block by computer interpretation. Assessment pulmonary disease. Left axis deviation. Normal intervals. Rate is 70. No acute ST or T wave changes. When compared to the previous study no significant change. Medical Decision Making - Medical Decision Making Patient requires a computed tomography scan of the head due to her age of 66 years. Patient also has some neck tenderness. Patient had lightheadedness prior to symptomology. No loss of consciousness, no blood thinners, we'll do a general cardiac workup. It sounds like the patient and relates with a cane normally. This may certainly be the patient's baseline as she is prone to some lightheadedness at times. Patient had no preceding symptomology such as chest pain, no preceding headache. No focal neurologic deficits. Patient informed of all findings. Patient informed of urinary tract infection. Macrobid 100 mg twice a day for 7 days ordered. Urine culture was sent. Patient follow-up with her regular physician. She will plan discussed. All questions answered. Patient was told to return to the ER for any signs or symptoms worsen. Told to return immediately if any other problems arise. All questions answered. Treatment plan discussed. Patient in agreement Every effort has been made to ensure accuracy of this dictation. However, due to the limitations of electronic medical records and dictation devices, errors in charting still occur. The case was discussed in detail with ED attending physician. Presentation, findings, treatment plan discussed in detail. Supervising physician Dr. Lomeli - Lab Data Result diagrams: 02/26/22 00:15 02/26/22 00:15 Lab Results 02/25/22 02/26/22 02/26/22 Range/Units 20:27 00:15 00:15 WBC 10.0 (3.8-10.6) k/uL RBC 4.98 (3.80-5.40) m/uL Hgb 14.5 (11.4-16.0) gm/dL Hct 45.2 (34.0-46.0) % MCV 90.9 (80.0-100.0) fL MCH 29.1 (25.0-35.0) pg MCHC 32.0 (31.0-37.0) g/dL RDW 13.8 (11.5-15.5) % Plt Count 204 (150-450) k/uL MPV 8.8 Neutrophils % 56 % Lymphocytes % 33 % Monocytes % 6 % Eosinophils % 4 % Basophils % 1 % Neutrophils # 5.7 (1.3-7.7) k/uL Lymphocytes # 3.3 (1.0-4.8) k/uL Monocytes # 0.6 (0-1.0) k/uL Eosinophils # 0.4 (0-0.7) k/uL Basophils # 0.1 (0-0.2) k/uL Sodium 142 (137-145) mmol/L Potassium 3.9 (3.5-5.1) mmol/L Chloride 107 (98-107) mmol/L Carbon Dioxide 25 (22-30) mmol/L Anion Gap 10 mmol/L BUN 15 (7-17) mg/dL Creatinine 0.81 (0.52-1.04) mg/dL Est GFR (CKD-EPI)AfAm 88 (>60 ml/min/1.73 sqM) Est GFR (CKD-EPI)NonAf 76 (>60 ml/min/1.73 sqM) Glucose 80 (74-99) mg/dL Calcium 8.9 (8.4-10.2) mg/dL Magnesium 1.9 (1.6-2.3) mg/dL Total Bilirubin 0.7 (0.2-1.3) mg/dL AST 27 (14-36) U/L ALT 15 (4-34) U/L Alkaline Phosphatase 72 (38-126) U/L Troponin I (0.000-0.034) ng/mL Total Protein 6.4 (6.3-8.2) g/dL Albumin 3.9 (3.5-5.0) g/dL Urine Color Yellow Urine Appearance Cloudy H (Clear) Urine pH 6.5 (5.0-8.0) Ur Specific [place] 1.025 (1.001-1.035) Urine Protein Trace H (Negative) Urine Glucose (UA) Negative (Negative) Urine Ketones Negative (Negative) Urine Blood Negative (Negative) Urine Nitrite Negative (Negative) Urine Bilirubin Negative (Negative) Urine Urobilinogen <2.0 (<2.0) mg/dL Ur Leukocyte Esterase Large H (Negative) Urine RBC 5 (0-5) /hpf Urine WBC 34 H (0-5) /hpf Ur Squamous Epith Cells 2 (0-4) /hpf Urine Mucus Occasional H (None) /hpf 02/26/22 Range/Units 00:15 WBC (3.8-10.6) k/uL RBC (3.80-5.40) m/uL Hgb (11.4-16.0) gm/dL Hct (34.0-46.0) % MCV (80.0-100.0) fL MCH (25.0-35.0) pg MCHC (31.0-37.0) g/dL RDW (11.5-15.5) % Plt Count (150-450) k/uL MPV Neutrophils % % Lymphocytes % % Monocytes % % Eosinophils % % Basophils % % Neutrophils # (1.3-7.7) k/uL Lymphocytes # (1.0-4.8) k/uL Monocytes # (0-1.0) k/uL Eosinophils # (0-0.7) k/uL Basophils # (0-0.2) k/uL Sodium (137-145) mmol/L Potassium (3.5-5.1) mmol/L Chloride (98-107) mmol/L Carbon Dioxide (22-30) mmol/L Anion Gap mmol/L BUN (7-17) mg/dL Creatinine (0.52-1.04) mg/dL Est GFR (CKD-EPI)AfAm (>60 ml/min/1.73 sqM) Est GFR (CKD-EPI)NonAf (>60 ml/min/1.73 sqM) Glucose (74-99) mg/dL Calcium (8.4-10.2) mg/dL Magnesium (1.6-2.3) mg/dL Total Bilirubin (0.2-1.3) mg/dL AST (14-36) U/L ALT (4-34) U/L Alkaline Phosphatase (38-126) U/L Troponin I <0.012 (0.000-0.034) ng/mL Total Protein (6.3-8.2) g/dL Albumin (3.5-5.0) g/dL Urine Color Urine Appearance (Clear) Urine pH (5.0-8.0) Ur Specific [place] (1.001-1.035) Urine Protein (Negative) Urine Glucose (UA) (Negative) Urine Ketones (Negative) Urine Blood (Negative) Urine Nitrite (Negative) Urine Bilirubin (Negative) Urine Urobilinogen (<2.0) mg/dL Ur Leukocyte Esterase (Negative) Urine RBC (0-5) /hpf Urine WBC (0-5) /hpf Ur Squamous Epith Cells (0-4) /hpf Urine Mucus (None) /hpf Disposition Clinical Impression: Urinary tract infection, Lightheadedness, Closed head injury, Contusion of left knee, Low back strain Disposition: HOME SELF-CARE Condition: Stable Instructions (If sedation given, give patient instructions): Knee Sprain (ED), Urinary Tract Infection in Women (ED), Head Injury (ED), Low Back Strain (ED) Additional Instructions: Take the antibiotic as directed. Call at 8 AM in the morning to make a follow- up appointment with your regular doctor. Review the head injury instructions. Follow-up with your regular physician as directed. Return to the ER immediately if any symptoms worsen, new symptoms arise, or any other problems develop. Prescriptions: Nitrofurantoin Monohyd/M-Cryst [Macrobid] 100 mg PO Q12HR #14 cap Is patient prescribed a controlled substance at d/c from ED?: No Referrals: None,Stated [REFERRING] - 1-2 days
--- NOTE | 2022-02-25 20:22 | CT ---
EXAMINATION TYPE: CT cervical spine wo con DATE OF EXAM: 02/25/2022 COMPARISON: None available HISTORY: pain after fall CT DLP: 497.4 mGycm Automated exposure control for dose reduction was used. TECHNIQUE: CT scan of the cervical spine is obtained without contrast, axial images are obtained, sa gittal and coronal reformatted images are also reviewed. FINDINGS: Cervical spine is visualized in its entirety from C1 through upper thoracic levels, demonst rates satisfactory alignment without evidence of acute fracture or dislocation. There is mild cervica l spondylosis. Prevertebral soft tissue appears within normal limits. The C1-C2 articulation is with in normal limits on the coronal images. IMPRESSION: No acute abnormality of the cervical spine.
--- NOTE | 2022-02-25 20:23 | XR ---
EXAMINATION TYPE: XR chest 1V portable DATE OF EXAM: 02/25/2022 COMPARISON: NONE HISTORY: Dizziness TECHNIQUE: Single frontal view of the chest is obtained. FINDINGS: There is no focal air space opacity, pleural effusion, or pneumothorax seen. The cardiac silhouette size is within normal limits. The osseous structures are intact. IMPRESSION: No acute process.
--- NOTE | 2022-02-25 20:25 | XR ---
Result: History: Low back pain status post fall. Comparison: None available. Technique: Frontal and lateral views of the lumbar spine. Findings: The bone mineralization is normal. Images of the lumbar spine demonstrate 5 lumbar-type vertebrae. There is no acute fracture or sublux ation. The vertebral body heights are preserved. There is moderate to severe disc height narrowing a t L2-L3 with grade 1 retrolisthesis. There is also moderate disc height narrowing at L3-L4. There is moderate facet arthropathy in the lower lumbar spine. Cholecystectomy clips seen. Impression: Degenerative changes without acute osseous abnormality.
[2022-02-25 21:08] LABS: Appearance,Urine Cloudy (Clear); Bilirubin,Urine Negative (Negative); Blood,Urine Negative (Negative); Color,Urine Yellow; Glucose,Urine (UA) Negative (Negative); Ketones,Urine Negative (Negative); Leukocyte Esterase,Urine Large (Negative); Mucus,Urine Occasional /hpf; Nitrite,Urine Negative (Negative); PH, Urine 6.5 (5.0-8.0); Protein,Urine Trace (Negative); RBC,Urine 5 /hpf (0-5); Specific Gravity,Urine 1.025 (1.001-1.035); Squamous Epithelial Cell,Urine 2 /hpf (0-4); Urobilinogen,Urine <2.0 mg/dL (<2.0); WBC,Urine 34 /hpf (0-5)
--- NOTE | 2022-02-25 22:09 | CT ---
EXAMINATION TYPE: CT brain wo con DATE OF EXAM: 02/25/2022 COMPARISON: 09/04/2021 HISTORY: head injury CT DLP: 1185.4 mGycm Automated exposure control for dose reduction was used. Ventricles have normal size. There is no mass effect or midline shift. No sign of intracranial hemorr phyllis. The calvarium is intact. Skull base is intact. IMPRESSION: Negative unenhanced head CT scan. No change.
[2022-02-25] MEDS ORDERED: NITROFURANTOIN MONOHYD/M-CRYST 100 MG CAP PO STA (22:14)
[2022-02-26 00:37] LABS: Basophils # (A) 0.1 k/uL (0-0.2); Basophils % (A) 1 %; Eosinophils # (A) 0.4 k/uL (0-0.7); Eosinophils % (A) 4 %; HCT 45.2 % (34.0-46.0); HGB 14.5 gm/dL (11.4-16.0); Lymphocytes # (A) 3.3 k/uL (1.0-4.8); Lymphocytes % (A) 33 %; MCH 29.1 pg (25.0-35.0); MCV 90.9 fL (80.0-100.0); Mean Platelet Volume 8.8; Monocytes # (A) 0.6 k/uL (0-1.0); Monocytes % (A) 6 %; Neutrophils # (A) 5.7 k/uL (1.3-7.7); Neutrophils % (A) 56 %; Platelet Count 204 k/uL (150-450); RBC 4.98 m/uL (3.80-5.40); RDW 13.8 % (11.5-15.5)
[2022-02-26 00:50] LABS: Albumin 3.9 g/dL (3.5-5.0); Calcium 8.9 mg/dL (8.4-10.2); Magnesium 1.9 mg/dL (1.6-2.3); Potassium 3.9 mmol/L (3.5-5.1); Total Bilirubin 0.7 mg/dL (0.2-1.3); Total Protein 6.4 g/dL (6.3-8.2)
[2022-02-26 01:46] VITALS: BP 126/71; PULSE 81; RESP 16
[2022-02-26 01:48] VITALS: TEMP 98.3
== END 2022-02-26 02:19 | disposition home or self-care (01) ==
LOC: EC 13:39
DX: S09.90XA Unspecified injury of head, initial encounter (principal); S80.02XA Contusion of left knee, initial encounter; S39.012A Strain of muscle, fascia and tendon of lower back, initial encounter; N39.0 Urinary tract infection, site not specified; R42 Dizziness and giddiness; J45.909 Unspecified asthma, uncomplicated; I25.10 Atherosclerotic heart disease of native coronary artery without angina pectoris; J44.9 Chronic obstructive pulmonary disease, unspecified; I82.409 Acute embolism and thrombosis of unspecified deep veins of unspecified lower extremity; K21.9 Gastro-esophageal reflux disease without esophagitis; E78.5 Hyperlipidemia, unspecified; G47.33 Obstructive sleep apnea (adult) (pediatric); F41.9 Anxiety disorder, unspecified; E11.22 Type 2 diabetes mellitus with diabetic chronic kidney disease; I12.9 Hypertensive chronic kidney disease with stage 1 through stage 4 chronic kidney disease, or unspecified chronic kidney disease; N18.2 Chronic kidney disease, stage 2 (mild); Z91.041 Radiographic dye allergy status; Z88.8 Allergy status to other drugs, medicaments and biological substances; Z79.899 Other long term (current) drug therapy; Z79.810 Long term (current) use of selective estrogen receptor modulators (SERMs); W18.30XA Fall on same level, unspecified, initial encounter; Z86.16 Personal history of COVID-19
CPT/HCPCS: 36415; 70450; 71045; 72100; 72125; 80053; 81001; 83735; 84484; 85025; 87086; 93005; 99284

== ENCOUNTER → 2022-03-05 | Outpatient (CLI) | payer MEDICARE, OTHER ==
--- NOTE | 2022-03-05 10:01 | CT ---
EXAMINATION TYPE: CT lumbar spine wo con DATE OF EXAM: 03/05/2022 9:46 AM COMPARISON: 11/11/2021 HISTORY: M47.26 Spondylosis with stenosis Automated exposure control for dose reduction was used. Unenhanced CT of the lumbar spine was performed. Bone and soft tissue window settings are submitted as well as coronal and sagittal reconstructions. L1-L2: Normal disc space height. No disc herniation protrusion or central stenosis. No facet joint arthropathy. No evidence for foraminal encroachment. L2-L3: There is vacuum disc noted with severe degenerative disc space narrowing. Broad-based posterio r disc bulge noted with effacement of the ventral thecal sac with mild stenosis present. Bilateral fo raminal encroachment mild in degree. Ventral spondylosis. L3-L4: Decompressive laminectomy change seen. Mild degenerative disc space narrowing noted. No defini te recurrent or residual disease. Normal postoperative alignment. L4-L5: Decompressive laminectomy change seen. Mild degenerative disc space narrowing noted. No defini te recurrent or residual disease. Normal postoperative alignment. L5-S1: Normal disc space height. No disc herniation protrusion or central stenosis. No facet joint arthropathy. No evidence for foraminal encroachment. IMPRESSION: 1. Degenerative disc disease with posterior disc bulge at L2-3 and mild central stenosis seen. 2. Decompressive laminectomy at L3-4 and L4-5 without evidence for recurrent or residual disease.
== END | disposition home or self-care (01) ==
LOC: RADCTMAIN 09:08
PROVIDERS: ATTEND Orthopaedic Surgery
DX: M48.061 Spinal stenosis, lumbar region without neurogenic claudication (principal); M51.16 Intervertebral disc disorders with radiculopathy, lumbar region
CPT/HCPCS: 72131

== ENCOUNTER → 2022-03-08 | Outpatient (CLI) | payer MEDICARE, OTHER | END | disposition home or self-care (01) | LOC: LABPAT 12:25 | PROVIDERS: ATTEND Orthopaedic Surgery | DX: Z01.812 Encounter for preprocedural laboratory examination (principal); M48.061 Spinal stenosis, lumbar region without neurogenic claudication; M47.816 Spondylosis without myelopathy or radiculopathy, lumbar region; Z22.322 Carrier or suspected carrier of Methicillin resistant Staphylococcus aureus | CPT/HCPCS: 87070 ==

== ENCOUNTER 2022-04-23 10:29 | Inpatient (IN) | payer MEDICARE, OTHER ==
[2022-04-21 09:32] VITALS: BMI 41.0
[~2022-04-23 10:29] MED LIST changes: -ONDANSETRON 4 MG/2 ML VIAL IVP PRN; -TRANEXAMIC ACID 1,000 MG in SODIUM CHLORIDE 0.9% 100 ML IVPB PRN; +TRANEXAMIC ACID IN NACL,ISO-OS 1,000 MG in SALINE 1 100ML.BAG IVPB PRN; -VANCOMYCIN 1,500 MG in SODIUM CHLORIDE 0.9% 250 ML IVPB PRN
[2022-04-23 11:04] LABS: Glucose,Whole Blood 83 mg/dL (70-110)
[2022-04-23] MEDS ORDERED: LACTATED RINGERS 1,000 ML IV ONE ×3 (11:06→16:05)
[2022-04-23] MEDS ORDERED: ACETAMINOPHEN TAB 500 MG TAB ONE (11:19)
[2022-04-23] MEDS: ONDANSETRON 4 MG/2 ML VIAL IVP PRN ×2 (11:20→16:57)
[2022-04-23] MEDS: MIDAZOLAM 2 MG/2 ML VIAL IV PRN ×2 (11:50→12:19)
[2022-04-23] MEDS: LACTATED RINGERS 1,000 ML IV SCH ×3 (12:21→19:57)
--- NOTE | 2022-04-23 12:26 | P.HPOR ---
History of Present Illness H&P Date: 04/23/22 Chief Complaint: Low back and LLE pain .D:Date: 03/03/22 : 09:49am .T:Title: [facility] Date of :[birth year] R14 Allergies: Age: 66 year Height: 5' Weight: 225 lbs BP:126/74 BMI: 43.94 kg/m2 VAS: 8 CHIEF COMPLAINT: S/P L3-L5 Laminectomy DOS:12/30/2020 SUBJECTIVE: Patient presents today for a follow up appointment regarding her lumbar spine pain. The patient reports low back pain that radiates into her lower extremities. She notes weakness. The patient states that her lumbar spine pain has increased since her fall. Patient denies any lasting improvements to her symptoms with all conservative modalities trialed thus far and wishes to discuss operative intervention. Patient continues to deny any f/c/sob/cp, no incision concerns, no bladder or bowel retention/incontinence, no perineal numbness/ti ngling, and ambulates with the use of her wheeled walker. HISTORY: HPI: The patient was last seen in the office on 11/16/2021. Since the time of the last appointment the patient reports that she has seen no improvements to her symptoms. Patient reports continued debility and cannot complete most of her daily functions due to the severity of her symptoms. Patient reports continued pain about the low back radiating into the left lower extremity with weakness and has had continued weakness. Overall she notes that she is still a significant fall risk but denies having any falls since the time of her last appointment. She has continued to use her walker and AFO brace with improvements to her stability. Otherwise she notes that she has recently been put on Prednisone by her PCP, Dr. Lisa, and has found some mild relief of her symptoms with this. Patient denies any lasting improvements to her symptoms with all conservative modalities trialed thus far and wishes to discuss operative intervention. Patient continues to deny any f/c/sob/cp, no incision concerns, no bladder or bowel retention/incontinence, no perineal numbness/tingling, and ambulates with the use of her wheeled walker. Patient last returned to the office on 11/06/2021 for a recheck of her lumbar spine and to review her MRI obtained after the time of the last appointment. Since the time of the last appointment the patient reports no notable changes to her symptoms. She continues to complain of severe low back pain and left lower extremity weakness and radiculopathy. Patient also continues to complain of bladder incontinence as well which has worsened since a FFS on 07/23/2021. She is aware that she needs to urinate but cannot control the flow, she does note that she is currently taking water pills as well prescribed through her PCP Dr. Lisa. She notes that she has fallen frequently over the years and notes that she has been a fall risk for some time now. Overall she notes continued debility due to the severity of her symptoms. Otherwise she reports trialing no new treatment modalities since the time of the last appointment, noting that she has continued with her previously listed medications. Patient denies any significant improvements with all conservative modalities. She denies any f/c/sob/cp, no bowel retention/incontinence, no perineal numbness/tingling, and ambulating with the use of her left AFO brace and a wheeled walker. Patient last presented to the office on 07/23/2021 for a recheck of her lumbar spine. Since the time of the last appointment the patient reports that her pain has decreased but she has seen continued left lower extremity weakness with left foot drop. She has been more ambulatory despite this but this having continued issues with this. Additionally she has seen an increase in bladder incontinence, noting that she has not had good control recently. Patient denies any known mechanism of this onset. She has been doing home exercises with good improvements to her strength but is overall continuing to have radiculopathic symptoms. Otherwise she denies any perineal numbness/tingling, and ambulates with the use of a wheeled walker. Patient last presented to the office on 04/20/2021 for a follow up evaluation of her low back. Since the time of the patients last appointment she notes that she has had an increase in pain. This has comes after sustaining 2 falls recently (date not specified). Since this she has noticed in increase 1 week ago in low back pain as well as bilateral lower extremity radiculopathy, left worse than right. With this she notes that she has had a left foot drop which is increasingly concerning her. Along with the pain, she notes left lower extremity numbness that is worse in the morning but improves throughout the day. 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 Regarding treatments, she notes that she is taking Ibuprofen PRN with mild relief of her symptoms. Otherwise she notes that she discontinued the Gabapentin she was given 1 week ago. This correlates with her recent increase in radiculopathic symptoms. Otherwise, the patient denies any bladder or bowel issues, perineal numbness/tingling, and presents to the office with the use of a wheelchair. Patient last presented on 02/23/2021 for a follow up appointment regarding being S/P L3-L5 laminectomy. To review, at the time of the last appointment she was a resident at [facility] and doing okay. She did test positive for COVID and subsequently got pneumonia after this. Since this she notes that she has made strides regarding her recovery. The patient states that since the last appointment she has been discharged and is at home. Patient notes improvements to her pain and improvements to her left lower extremity radiculopathy. She still notes continued bilateral lower extremity weakness and left lower extremity "tingling" but Shalonda states improvements regarding strength and numbness about the left lower extremities compared to previous visits. Otherwise the patient is doing well and presents to the office in a wheelchair and accompanied by her granddaughter. The patient's past medical history; past surgical history; family history; medicines; allergies and social history have been reviewed and are as stated elsewhere in the chart. 14 points review of systems completed and as stated in HPI, all other systems reviewed are negative. PHYSICAL EXAM: Patient is alert and oriented 3 appears well-nourished well-hydrated is in no acute distress. They does not appear septic. On exam the patient has no tenderness to palpation of her thoracic or lumbar spine. There is no edema or ballottement sign. Lower extremities with 4 out of 5 strength in all major muscle groups except for Left foot in DF and EHL where she has 3/5 strength. She is able to fire TA and EHL however they are still weak. She is able to walk however, and some of her weakness seems projectional as when she is distracted she can do more. Pt has been wearing her AFO brace as well. Upper extremities show 4/5 strength in all major muscle groups. no focal deficits, weakness secondary to her overall medical state There is FROM that is painless of the b/l UE and LE in all major joints. They are intact to light touch sensation in L2 to S1 nerve distribution as well as the C5-T1 distribution. DTRs 2/4 all upper and lower Patient has palpable dorsalis pedis was posterior tibial pulses. Compartments are soft and compressible. Patient shows a negative Homans, Mathur's, negative Babinski's negative clonus bilaterally. negative straight leg raise bilaterally. No tensioning signs. Cranial nerves II through XII are grossly intact. Overall alignment is well-maintained in the sagittal coronal planes. Lumbar back: Incisions look good, no sign of infection Patient is weightbearing in the office today with a wheeled walker No pain or tenderness to palpation about the surgical sites Good strength about the left lower extremity upon testing. Positive drop foot about the left lower extremity RADIOGRAPHS: MRI from 08/06/2021 of the lumbar spine: IMages reviewed show post surgical changes with laminectomy from L3-L5 effective decompression. There is disc height loss L2-3 and L3-4. There is likely recurrent HNP left paracentral at L3-4 which is causing foraminal stenosis. There is no severe central stenosis. This disc extends far lateral in this area. There is L2-3 HNP that is left paracentral as well w/o far lateral extension and does cause some mild foraminal stenosis, no severe central stenosis. No lesions. No fractures. flattening of the normal lumbar lordosis secondary to disc collapse and spondylosis. No fracture. CT scan without contrast from 11/11/2021 of the lumbar spine: Images Reviewed in office with the patient. L1-2 Maintained alignment, Disc height VB height. L2-3 Spondylosis, segmental kyphosis with disc height collapse and bulge noted L3-4 s/p laminectomy posteriorly. Anterior disc shows spondylosis as well as facet hypertrophy and overgrowth L4-5 Spondylosis. S/p laminectomy posteriorly. Facet overgrowth L5-S1 s/p laminectomy, partial, spondylosis, some retrolisthesis, mild, disc bulging related, facet hypertrophy, mild. Alignment: PI: NA LL: 30 Coronal alignment: Maintained Fracture: None Lesion: None Large body habitus on CT noted. ASSESSMENT: 1. S/P L3-L5 Laminectomy 2. Continued weakness LLE with DF/EHL 3. Recurrent L3-4 Left paracentral disc herniation 4. T11-T12 HNP with stenosis 5. LLE weakness 6. Right ankle fx 7. LLE radiculopathy 8. L2-L4 spondylosis with stenosis PLAN: All options were reviewed today, we decided the best course of action would be: - Continue with the use of the AFO brace for continued support -Advised patient to continue with supplements, health maintenance, and home exercise programs. Patient expressed understanding and will continue with these modalities. -We reviewed her advanced imaging, physical examination, and severe debility I discussed treatment options with the patient, including operative and non- operative options, and they have elected to proceed with the following surgical procedure: lumbar L2-L4 Revision Decompression and Fusion The indications, risks, benefits, and alternatives to surgery were discussed with the patient at length. Specifically (but not limited to) the risks of infection, stiffness, recurrence of symptoms, need for revision surgery, local numbness, neurovascular injury, and blood clots were discussed. The patient's questions were answered. The decision to proceed was made. Consent will be obtained for the procedure. - Follow up 1 week pre-op -Ambulate daily -Take medications as directed -Ice and rest for pain and swelling control. - Continue with activities as tolerated. No lifting, bending, twisting no lifting greater than 30 lbs. Wear back brace as needed. Take pain medications and post op medications as needed and as directed Ice and rest for pain and swelling control. Surgical Procedure Risk Review Shalonda Smalls is a 66 year old female presenting for evaluation of sudden onset of low back , leg pain and inability to ambulate. She recently now has had a fall related to this and continues to have back and leg pain that is now worsened. It was my pleasure to have seen and examined Ms. Smalls. In our visit today we have had a chance to go over subjective complaints, physical examination findings and treatments, including the natural course history without intervention and various interventional options. The imaging demonstrates . MRI from 08/06/2021 of the lumbar spine: IMages reviewed show post surgical changes with laminectomy from L3-L5 effective decompression. There is disc height loss L2-3 and L3-4. There is likely recurrent HNP left paracentral at L3-4 which is causing foraminal stenosis. There is no severe central stenosis. This disc extends far lateral in this area. There is L2-3 HNP that is left paracentral as well w/o far lateral extension and does cause some mild foraminal stenosis, no severe central stenosis. No lesions. No fractures. flattening of the normal lumbar lordosis secondary to disc collapse and spondylosis. No fracture. CT scan without contrast from 11/11/2021 of the lumbar spine: Images Reviewed in office with the patient. L1-2 Maintained alignment, Disc height VB height. L2-3 Spondylosis, segmental kyphosis with disc height collapse and bulge noted L3-4 s/p laminectomy posteriorly. Anterior disc shows spondylosis as well as facet hypertrophy and overgrowth L4-5 Spondylosis. S/p laminectomy posteriorly. Facet overgrowth L5-S1 s/p laminectomy, partial, spondylosis, some retrolisthesis, mild, disc bulging related, facet hypertrophy, mild. Alignment: PI: NA LL: 30 Coronal alignment: Maintained Fracture: None Lesion: None Large body habitus on CT noted. On physical exam, Ms. Smalls demonstrates . Foot drop on the LLE, LLE weakness, paresthesias. Low back pain, limited motion secondary to pain as well as inability recently to ambulate due to pain in her back and knee I explained to the patient that as her condition progresses it could cause continued sx, worsening sx or debility. At this time, based on the patients imaging and physical exam, I recommend surgery in the form or a: L2-S1 decompression and fusion . I discussed the risk and benefits of this procedure at length with Ms. Smalls. The patient and her sisteragreed to consider pursuing the procedure mentioned above. Plan: 1. L2-S1 decompression and fusion 2. Follow up with PCP for surgical clearance 3. Review of surgical risks and benefits as well as an educational packet on the proposed surgical procedure. Risks: All surgical procedures come with inherent risks, including those related to positioning, anesthesia, intraoperative findings, and postoperative complications. It is important to understand that surgery does not come with any guarantee of a successful outcome as complications and adverse events are always possible. The patient was given a handout in office today discussing the surgical procedure and risks associated with the intervention, both of which were discussed with the patient. These risks include but are not limited to the following: ? Experiencing same, different or even worse symptoms in back, neck, arms, or legs compared to before surgery. ? Requiring further surgery or other forms of treatment presently or at some time in the future at same or other levels of the intended spine surgery. ? On an extreme but fortunately relatively rare basis severe complication such as blindness, stroke, heart attack, temporary and/or permanent nerve injury, paralysis, coma, or may occur, sometimes without known explanation. ? Surgical complications may include but are not limited to risk of infection, fluid accumulation in the surgical dissection site, including a se sayra or hematoma, that requires additional surgery, wound drainage, bleeding, new numbness or weakness, vision changes/loss, spinal fluid leakage, non-healing and/or infected incision, headaches, difficulty or inability to swallow, hoarseness, hemopneumothorax, pneumothorax, impotence, retrograde ejaculation, vaginal dryness; injury to nerves, spinal cord, blood vessels, lymphatics or other vital organs (i.e., bowel injury, injury to the great vessels); heterotopic bone formation; complications related to the hardware such as screws, rods, cages including misplaced hardware, device failure, in strumentation at the wrong spine level, hardware fracture/breakage, or hardware loosening; vertebral failure of the spinal column above or below the newly placed hardware; retained surgical instrumentations or devices and the need for further surgery. ? Medical risks of the planned spine surgery include but are not limited to generalized Infections to the whole body or local areas outside of the surgical site (sepsis), heart attack, bleeding, anaphylaxis, meningitis, seizure, epilepsy, hearing loss, burn link, laceration of the head or other areas of the body, bruising, hypersensitivity of the skin, bladder over distension; allergic reaction; shoulder injury related to positioning; fat, blood and air clots to other areas of the body like heart, lungs, brain; failure of internal organs such as lungs, kidneys, liver and excessive bleeding. If blood transfusions are necessary, note that transfusions may cause intolerance reactions such as anaphylaxis or other complex reactions. Despite best efforts, the results of spine surgery might not heal in terms of bone, soft tissues such as skin, fascia, ligaments, and joints. Additionally, in order to achieve best possible results, spine surgery may be carried out beyond the initially planned levels and involve decompression, fusion including insertion of hardware at levels other than the original intended area of surgical interest change some portions of the procedure in order to ensure the best possible outcomes. With spine surgery and spinal fusion, there are different off label uses of instrumentation (devices, implants and hardware) as well as biological substances (bone morphogenic proteins, demineralized bone matrix) as well as using extra bone from allograft sources (i.e. cadaver bone) or autograft (iliac crest bone, ribs, or the spine itself). The patient has been given information about these practices and their inherent risks and benefits. [facility] Physician Assistants are medically trained surgical providers who function in the outpatient, inpatient, and operating room setting under the direct supervision of the attending surgeon.They assist in the operating room with direct supervision of the attending surgeons. The patient has had a chance to review all the listed information, has been given print outs detailing this information, and has had all his/her questions answered to their satisfaction. It was my pleasure to have seen and examined Ms. Smalls. In our visit today we have had a chance to go over my understanding of our patient's current condition, the natural course history without intervention and various interventional options. Questions were invited and answered, and the patient wishes to proceed as outlined above. I have seen and examined the patient for 25 minutes and we have spent more than 50% of the time in repeat and detailed counseling about the patient's condition, its natural course history with out and as much as can be predicted with surgery and re-review of various surgical treatment options. In conclusion,Ms. Smalls and her spouse/partner requested we proceed with the above suggested surgery and are willing to accept risks and limitations of the suggested surgery as nature of the disease process and our best attempts at treatment for the condition. Thank you again for allowing us to be part of your patient's care. Please don't hesitate to contact me if you have any further questions. Signed and authenticated by: Vikram Alvarez DO [facility] [address] [address] Attestation: In our visit today Ms. Smalls and I have had a chance to go over my understanding of the patient's current condition, the natural course history without intervention and various interventional options. Questions were invited and answered, and the patient wishes to proceed as outlined above. I will be sure to keep you updated afterMs. mSalls returns here for further follow-up. Thank you again for your referral. Please do not hesitate to contact me if you have any further questions. The above note was initiated by Zoie Pérez, physician recording judicial assistant for Dr. Vikram Alvarez. This note has been reviewed by Dr. Alvarez, who has made his personal changes and impressions for this document. CC: Tavo Lisa M.D. #Orders: CT Scan # SIGNED BY Vikram Alvarez (GOO)03/03/2022 10:54A Past Medical History Past Medical History: Asthma, Coronary Artery Disease (CAD), COPD, Diabetes Mellitus, Deep Vein Thrombosis (DVT), GERD/Reflux, Hyperlipidemia, Hypertension, Myocardial Infarction (LA), Musculoskeletal Disorder, Osteoarthritis (OA), Renal Disease, Sleep Apnea/CPAP/BIPAP Additional Past Medical History / Comment(s): Colitis, hx benign colon polyps, peptic ulcer disease. Hx DVT left leg. Migraines. CPAP use. Hx kidney stones, CKD stage II. Vertigo, recurrent left ear infections/ruptured eardrum. TMJ. Chronic back pain, numbness and tingling in left arm and leg. Edema bilateral lower extremities. Hx Covid + 01/19/2021. Hx LA 12 yrs ago, "showed up on EKG". "Trouble hearing out of right ear if lying on that ear". Last Myocardial Infarction Date:: 2009 History of Any Multi-Drug Resistant Organisms: None Reported Past Surgical History: Appendectomy, Back Surgery, Cholecystectomy, Ear Surgery, Heart Catheterization, Hysterectomy, Joint Replacement, Orthopedic Surgery, Tonsillectomy Additional Past Surgical History / Comment(s): Bilateral knee arthroscopies, left ear patch/graft, EGD, colonoscopy/polypectomy, throat abscess, right knee replacement, bilateral cataracts removed. Past Anesthesia/Blood Transfusion Reactions: Postoperative Nausea & Vomiting (PONV) Past Psychological History: Anxiety Smoking Status: Never smoker Past Alcohol Use History: None Reported Past Drug Use History: None Reported - Past Family History Sister(s) Family Medical History: Cancer Father Family Medical History: Cancer Additional Family Medical History / Comment(s): Throat and brain cancer. Father was an alcoholic. Mother Family Medical History: Liver Disease Additional Family Medical History / Comment(s): Mother is . She was an alcoholic. Medications and Allergies Home Medications Medication Instructions Recorded Confirmed Type Glimepiride [Amaryl] 1 mg PO BID 10/17/20 04/23/22 History Montelukast [Singulair] 10 mg PO HS 10/17/20 04/23/22 History Gabapentin 300 mg PO TID #9 cap 02/11/21 04/23/22 Rx Aspirin [Adult Low Dose Aspirin EC] 81 mg PO DAILY 04/21/22 04/23/22 History Loratadine [Claritin] 10 mg PO DAILY 04/21/22 04/23/22 History Magnesium Oxide 400 mg PO DAILY 04/21/22 04/23/22 History atenoloL [Tenormin] 50 mg PO BID 04/21/22 04/23/22 History diazePAM [Diazepam] 2 mg PO BID 04/21/22 04/23/22 History Allergies Allergy/AdvReac Type Severity Reaction Status Date / Time Iodinated Contrast Media Allergy Severe Anaphylaxis Verified 04/23/22 10:44 [Iodinated Contrast Media - IV Dye] iodine Allergy Anaphylaxis Verified 04/23/22 10:44 Kcgsupi-NBE-JjM Reductase Allergy Anaphylaxis Verified 04/23/22 10:44 Inhibitor [Tuojmwh-Aid-Gwo Reductase Inhibitor] Physical Examination Osteopathic Statement: *. No significant issues noted on an osteopathic structural exam other than those noted in the History and Physical/Consult.
[2022-04-23 12:42] LABS: Glucose,Whole Blood 73 mg/dL (70-110)
[2022-04-23] MEDS ORDERED: DEXTROSE 50% SYRINGE 50 ML IVP ONE (12:48)
[2022-04-23] MEDS ORDERED: NEOSTIGMINE 1 MG/ML 10 ML VIAL ONE (12:50)
[2022-04-23] MEDS ORDERED: PROPOFOL 10 MG/ML 20 ML VIAL IV ONE (12:50)
[2022-04-23] MEDS ORDERED: ROCURONIUM 10 MG/ML (5 ML VIAL) IV ONE (12:50)
[2022-04-23] MEDS ORDERED: GLYCOPYRROLATE 0.2 MG/ML 2 ML VIAL ONE (12:50)
[2022-04-23] MEDS ORDERED: SUCCINYLCHOLINE CHLORIDE 200 MG/10 ML VIAL IV ONE (12:50)
[2022-04-23] MEDS ORDERED: ePHEDrine 50 MG/ML 1 ML VIAL ONE (12:50)
[2022-04-23] MEDS ORDERED: fentaNYL (PF) 50 MCG/ML 2 ML AMP ONE (12:50)
[2022-04-23] MEDS ORDERED: LIDOCAINE 2% INJ 20 MG/ML (2 ML VIAL) ONE (12:50)
[2022-04-23] MEDS ORDERED: MIDAZOLAM 2 MG/2 ML VIAL ONE (12:50)
[2022-04-23] MEDS ORDERED: TRANEXAMIC ACID IN NACL,ISO-OS 1,000 MG/100 ML BAG ONE (12:50)
[2022-04-23] MEDS ORDERED: WATER FOR INJECTION, STERILE 10 ML VIAL IV ONE (12:50)
[2022-04-23] MEDS ORDERED: THROMBIN (BOVINE) 5,000 UNIT VIAL TOPICAL ONE (12:55)
[2022-04-23] MEDS ORDERED: GENTAMICIN 40 MG/ML 2 ML VIAL IRRIGATION ONE (12:55)
[2022-04-23] MEDS ORDERED: GELATIN SPONGE,ABSORB (LARGE) 1 EACH SPONGE TOPICAL ONE (12:55)
[2022-04-23] MEDS ORDERED: BUPIVACAIN-EPI 0.25%-1:200,000 30 ML VIAL SQ ONE (12:55)
[2022-04-23] MEDS ORDERED: ceFAZolin 3,000 MG in SODIUM CHLORIDE 0.9% IRRIGATIO 3,000 ML IRRIGATION ONE (13:59)
[2022-04-23] MEDS ORDERED: VANCOMYCIN 1,000 MG VIAL MISCELLANE ONE (14:08)
[2022-04-23] MEDS ORDERED: TOBRAMYCIN SULFATE 1.2 GM VIAL MISCELLANE ONE (14:09)
[2022-04-23 14:39] LABS: Glucose,Whole Blood 85 mg/dL (70-110)
--- NOTE | 2022-04-23 16:22 | XR ---
Fluoroscopy INDICATION: Pain FINDINGS: Fluoroscopy time: 1 minute and 34 seconds. Images obtained: 7. IMPRESSIONS: 1. Documentation of fluoroscopy.
--- NOTE | 2022-04-23 16:31 | FL ---
Fluoroscopy INDICATION: Pain FINDINGS: Fluoroscopy time: 34 seconds. Images obtained: 7. IMPRESSIONS: 1. Documentation of fluoroscopy.
[2022-04-23 17:00] LABS: Glucose,Whole Blood 109 mg/dL (70-110)
[2022-04-23] MEDS: HYDROmorphone 0.5 MG/0.5 ML SYRINGE IVP PRN ×2 (17:05→17:46)
[2022-04-23] MEDS ORDERED: HYDROmorphone 0.5 MG/0.5 ML SYRINGE IVP PRN (17:07)
[2022-04-23] MEDS ORDERED: bisacodyL 10 MG SUPP RECTAL PRN (17:07)
[2022-04-23] MEDS ORDERED: NA PHOS,M-B/NA PHOS,DI-BA 133 ML ENEMA RECTAL PRN (17:07)
[2022-04-23] MEDS ORDERED: MAGNESIUM HYDROXIDE 2,400 MG/10 ML CUP PO PRN (17:07)
[2022-04-23] MEDS ORDERED: MAG HYDROX/AL HYDROX/SIMETH 30 ML CUP PO PRN (17:07)
[2022-04-23] MEDS ORDERED: HYDROcodone/APAP 10-325MG 1 EACH TAB PO PRN (17:07)
[2022-04-23] MEDS ORDERED: ONDANSETRON 4 MG/2 ML VIAL IVP PRN (17:07)
[2022-04-23] MEDS ORDERED: HYDROmorphone 1 MG/ML 1 ML SYRINGE IVP PRN (17:07)
[2022-04-23] MEDS ORDERED: hydrALAZINE HCL 20 MG/ML 1 ML VIAL IVP ONE ×2 (17:31→17:56)
[2022-04-23] MEDS: ACETAMINOPHEN TAB 325 MG TAB PO SCH (19:15)
[2022-04-23 20:33] LABS: Glucose,Whole Blood 165 mg/dL (70-110)
[2022-04-23] MEDS: CYCLOBENZAPRINE 5 MG TAB PO SCH (21:04)
[2022-04-23] MEDS: HYDROcodone/APAP 7.5-325MG 1 EACH TAB PO PRN (21:04)
[2022-04-23] MEDS: GABAPENTIN 300 MG CAP PO SCH (21:05)
--- NOTE | 2022-04-23 23:17 | CT ---
EXAMINATION TYPE: CT lumbar spine wo con DATE OF EXAM: 04/23/2022 COMPARISON: 03/05/2022 HISTORY: post op lumbar fusion CT DLP: 1639.50 mGycm Automated exposure control for dose reduction was used. Images obtained from the level of T12-S3 vertebra with no contrast. The lumbar vertebrae have normal alignment. There is some degenerative disc space narrowing at L2-3 a nd L3-4 with spurring. There is metal artifact from posterior fusion surgery from L2 to L4. There is multilevel laminectomy defect. There is no lumbar paraspinal mass. Sacroiliac joints are intact. Ther e is disc prosthesis at L3-4 and L2-3. There are posterior skin gemma. No evidence of a significant posterior fluid collection. IMPRESSION: Posterior fusion surgery. No pathologic fluid collection. No complicating process seen.
[2022-04-24] MEDS: ACETAMINOPHEN TAB 325 MG TAB PO SCH ×4 (00:41→18:16)
[2022-04-24] MEDS ORDERED: NALOXONE 0.4 MG/ML 1 ML VIAL ONE (04:25)
[2022-04-24] MEDS ORDERED: NALOXONE 0.4 MG/ML 1 ML VIAL IVP STA (04:26)
[2022-04-24 04:28] LABS: Glucose,Whole Blood 220 mg/dL (70-110)
[2022-04-24] MEDS ORDERED: FUROSEMIDE 10 MG/ML 4 ML VIAL IV STA (04:33)
--- NOTE | 2022-04-24 05:10 | XR ---
EXAMINATION TYPE: XR chest 1V portable DATE OF EXAM: 04/24/2022 COMPARISON: 02/25/2022 HISTORY: Respiratory distress TECHNIQUE: FINDINGS: There is some mild coarse interstitial infiltrate left lower lobe. The right lung is fairly clear. Heart size is normal. No heart failure. Bony thorax is intact. IMPRESSION: There is a left-sided interstitial pneumonia which is mostly new compared to the old exam . Normal heart.
[2022-04-24] MEDS ORDERED: methylPREDNISolone SOD SUCCI 125 MG/2 ML VIAL IV STA (07:11)
[2022-04-24 07:24] LABS: Glucose,Whole Blood 152 mg/dL (70-110)
[2022-04-24 08:41] LABS: Basophils # (A) 0.06 X 10*3/uL (0.00-0.10); Basophils % (A) 0.4 %; Eosinophils # (A) 0.12 X 10*3/uL (0.04-0.35); Eosinophils % (A) 0.7 %; HCT 38.4 % (37.2-46.3); HGB 12.1 g/dL (12.0-15.0); Immature Grans, Automated 1.1 %; Lymphocytes # (A) 2.79 X 10*3/uL (0.90-5.00); Lymphocytes % (A) 16.4 %; MCH 30.8 pg (27.0-32.0); MCHC 31.5 g/dL (32.0-37.0); MCV 97.7 fL (80.0-97.0); Mean Platelet Volume 12.2 fL (9.5-12.2); Monocytes # (A) 1.02 X 10*3/uL (0.20-1.00); NRBC Per 100 WBC 0 /100 WBCS (0.0-0.0); Neutrophils # (A) 12.82 X 10*3/uL (1.80-7.70); Neutrophils % (A) 75.4 %; Platelet Count 282 X 10*3/uL (140-440); RBC 3.93 X 10*6/uL (4.10-5.20); RDW 13.9 % (11.5-14.5)
[2022-04-24] MEDS: CYCLOBENZAPRINE 5 MG TAB PO SCH ×2 (08:41→20:31)
[2022-04-24] MEDS: GABAPENTIN 300 MG CAP PO SCH ×3 (08:41→20:31)
[2022-04-24] MEDS ORDERED: DEXAMETHASONE SOD PHOSPHATE 4 MG/ML 1 ML VIAL IVP SCH (09:00)
--- NOTE | 2022-04-24 09:09 | P.CNPUL ---
History of Present Illness Consult date: 04/24/22 Reason for consult: dyspnea, cough, hypoxemia, obstructive sleep apnea Chief complaint: Shortness of breath History of present illness: Patient admitted electively for L2 to L5 revision patient for severe low back pain, patient has a prior L3 to L5 laminectomy has a past medical history of hypertension and diabetes asthma and sleepers disorder breathing and sleep apnea, preop stress test was stable no stress-induced ischemia was seen EKG revealed normal sinus rhythm left anterior fascicular block, postoperatively p atient started having issues associated with pain increased blood pressure restless in agitation was given 5 mg of hydralazine her chest x-ray shows left- sided interstitial pneumonia involving left lower lobe. Patient did good overnight with BiPAP 05/18 with 40% oxygen. Labs are significant for white cell count of 70,000 hemoglobin and hematocrit 12/38 and platelet count of 282, d- dimer is mildly elevated 0.89, patient is on Solu-Medrol 40 IV every 8 Review of Systems All systems: negative Past Medical History Past Medical History: Asthma, Coronary Artery Disease (CAD), COPD, Diabetes Mellitus, Deep Vein Thrombosis (DVT), GERD/Reflux, Hyperlipidemia, Hypertension, Myocardial Infarction (AL), Musculoskeletal Disorder, Osteoarthritis (OA), Renal Disease, Sleep Apnea/CPAP/BIPAP Additional Past Medical History / Comment(s): Colitis, hx benign colon polyps, peptic ulcer disease. Hx DVT left leg. Migraines. CPAP use. Hx kidney stones, CKD stage II. Vertigo, recurrent left ear infections/ruptured eardrum. TMJ. Chronic back pain, numbness and tingling in left arm and leg. Edema bilateral lower extremities. Hx Covid + 01/19/2021. Hx AL 12 yrs ago, "showed up on EKG". "Trouble hearing out of right ear if lying on that ear". Last Myocardial Infarction Date:: 2009 History of Any Multi-Drug Resistant Organisms: None Reported Past Surgical History: Appendectomy, Back Surgery, Cholecystectomy, Ear Surgery, Heart Catheterization, Hysterectomy, Joint Replacement, Orthopedic Surgery, Tonsillectomy Additional Past Surgical History / Comment(s): Bilateral knee arthroscopies, left ear patch/graft, EGD, colonoscopy/polypectomy, throat abscess, right knee replacement, bilateral cataracts removed. Past Anesthesia/Blood Transfusion Reactions: Postoperative Nausea & Vomiting (PONV) Past Psychological History: Anxiety Smoking Status: Never smoker Past Alcohol Use History: None Reported Past Drug Use History: None Reported - Past Family History Sister(s) Family Medical History: Cancer Father Family Medical History: Cancer Additional Family Medical History / Comment(s): Throat and brain cancer. Father was an alcoholic. Mother Family Medical History: Liver Disease Additional Family Medical History / Comment(s): Mother is . She was an alcoholic. Medications and Allergies Home Medications Medication Instructions Recorded Confirmed Type Glimepiride [Amaryl] 1 mg PO BID 10/17/20 04/23/22 History Montelukast [Singulair] 10 mg PO HS 10/17/20 04/23/22 History Gabapentin 300 mg PO TID #9 cap 02/11/21 04/23/22 Rx Aspirin [Adult Low Dose Aspirin EC] 81 mg PO DAILY 04/21/22 04/23/22 History Loratadine [Claritin] 10 mg PO DAILY 04/21/22 04/23/22 History Magnesium Oxide 400 mg PO DAILY 04/21/22 04/23/22 History atenoloL [Tenormin] 50 mg PO BID 04/21/22 04/23/22 History diazePAM [Diazepam] 2 mg PO BID 04/21/22 04/23/22 History Allergies Allergy/AdvReac Type Severity Reaction Status Date / Time Iodinated Contrast Media Allergy Severe Anaphylaxis Verified 04/23/22 10:44 [Iodinated Contrast Media - IV Dye] iodine Allergy Anaphylaxis Verified 04/23/22 10:44 Ugvgmdo-EFS-WtI Reductase Allergy Anaphylaxis Verified 04/23/22 10:44 Inhibitor [Bvnhzsc-Ldv-Edy Reductase Inhibitor] Physical Exam Vitals: Vital Signs Temp Pulse Pulse Pulse Resp BP BP 04/24/22 08:05 04/24/22 06:01 73 18 130/71 04/24/22 05:00 98.1 F 78 18 130/71 04/24/22 04:42 04/24/22 04:41 04/24/22 04:30 10 L 04/23/22 23:06 97.7 F 64 20 126/76 04/23/22 19:44 04/23/22 19:07 80 16 135/78 04/23/22 18:15 64 16 169/76 04/23/22 18:00 65 16 177/81 04/23/22 17:45 49 L 16 191/83 04/23/22 17:35 47 L 16 173/81 04/23/22 17:30 47 L 16 187/63 04/23/22 17:15 48 L 16 187/63 04/23/22 17:00 53 L 16 184/78 04/23/22 16:49 96.9 F L 59 L 16 187/87 04/23/22 12:22 62 16 175/81 04/23/22 11:04 97.5 F L 67 15 150/65 Pulse Ox FiO2 04/24/22 08:05 40 04/24/22 06:01 97 04/24/22 05:00 99 04/24/22 04:42 40 04/24/22 04:41 40 04/24/22 04:30 04/23/22 23:06 99 04/23/22 19:44 98 04/23/22 19:07 97 04/23/22 18:15 96 04/23/22 18:00 100 04/23/22 17:45 100 04/23/22 17:35 100 04/23/22 17:30 100 04/23/22 17:15 100 04/23/22 17:00 95 04/23/22 16:49 97 04/23/22 12:22 100 04/23/22 11:04 96 Intake and Output 04/23/22 04/24/22 04/24/22 22:59 06:59 14:59 Intake Total 900 Output Total 475 805 Balance 425 -805 Intake: IV 900 Output: Drainage 305 Back 305 Urine 225 500 Estimated Blood Loss 250 Other: Voiding Method Indwelling Catheter - Constitutional General appearance: average body habitus, cooperative, disheveled - EENT Eyes: EOMI, PERRLA Ears: bilateral: normal - Neck Neck: normal ROM Carotids: bilateral: upstroke normal Thyroid: bilateral: normal size - Respiratory Respiratory: bilateral: CTA - Cardiovascular Rhythm: regular Heart sounds: normal: S1, S2 - Gastrointestinal General gastrointestinal: normal bowel sounds - Neurologic Neurologic: CNII-XII intact - Musculoskeletal Musculoskeletal: gait normal, generalized weakness, strength equal bilaterally - Psychiatric Psychiatric: A&O x's 3, appropriate affect, intact judgment & insight Results - Laboratory Findings CBC and BMP: 04/24/22 04:29 PT/INR, D-dimer D-Dimer 0.89 mg/L FEU (<0.60) H 04/24/22 07:17 Abnormal lab findings: Abnormal Labs 04/23/22 04/24/22 04/24/22 20:32 04:26 04:29 WBC 17.00 H RBC 3.93 L MCV 97.7 H MCHC 31.5 L Immature Gran # 0.19 H Neutrophils # 12.82 H Monocytes # 1.02 H D-Dimer POC Glucose (mg/dL) 165 H 220 H 04/24/22 04/24/22 07:17 07:22 WBC RBC MCV MCHC Immature Gran # Neutrophils # Monocytes # D-Dimer 0.89 H POC Glucose (mg/dL) 152 H - Diagnostic Findings Chest x-ray: report reviewed, image reviewed Assessment and Plan Assessment: Left lower lobe pneumonia aspiration likely Acute hypoxic respiratory failure secondary due to pneumonia Sleep disorder breathing and sleep apnea has been on CPAP machine at home 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
[2022-04-24 09:10] LABS: Anion Gap 9.8 mmol/L (10.00-18.00); BUN/Creat Ratio 19.7 Ratio (12.00-20.00); Blood Urea Nitrogen 19.7 mg/dL (9.0-27.0); Calcium 9.1 mg/dL (8.7-10.3); Carbon Dioxide 23.2 mmol/L (20.0-27.5); Non-African American GFR(CKD) 58.7 (60.0-200.0); Potassium 5.3 mmol/L (3.5-5.5)
[2022-04-24 11:13] LABS: Glucose,Whole Blood 166 mg/dL (70-110)
[2022-04-24] MEDS: PIPERACILLIN-TAZOBACTAM 3.375 GM in SODIUM CHLORIDE 0.9% 100 ML IVPB SCH ×2 (11:36→18:27)
--- NOTE | 2022-04-24 12:53 | US ---
EXAMINATION TYPE: US venous doppler duplex LE BI DATE OF EXAM: 04/24/2022 12:40 PM COMPARISON: NONE CLINICAL HISTORY: dvt. Pain SIDE PERFORMED: Bilateral TECHNIQUE: The lower extremity deep venous system is examined utilizing real time linear array sonog caroline with graded compression, doppler sonography and color-flow sonography. VESSELS IMAGED: Common Femoral Vein Deep Femoral Vein Greater Saphenous Vein * Femoral Vein Popliteal Vein Small Saphenous Vein * Proximal Calf Veins (* superficial vessels) Right Leg: Negative for DVT Left Leg: Negative for DVT IMPRESSION: No evidence for DVT.
[2022-04-24] MEDS ORDERED: traMADol 50 MG TAB PO PRN (13:45)
--- NOTE | 2022-04-24 13:54 | P.PN ---
Subjective Progress Note Date: 04/24/22 Principal diagnosis: Status post revision L2-L4 posterior lateral interbody fusion Patient was examined today at bedside, she is resting in her hospital bed. Patient was placed on BiPAP overnight due to a respiratory issue, pulmonology is following. Patient normally uses a CPAP at night, she states that she wasn't using it initially last night. Patient was able to get to the side of the bed this morning with therapy with assistance. She states that there is generalized pain but not too severe. They have limited the narcotics due to the pulmonary issue. Currently denies any headaches, chest pain, general peroneal numbness, bilateral lower extremity numbness or tingling Objective - Vital Signs Vital signs: Vital Signs Temp 99.9 F H 04/24/22 11:37 Pulse 77 04/24/22 11:37 Resp 13 04/24/22 11:37 BP 104/59 04/24/22 11:37 Pulse Ox 94 L 04/24/22 11:37 FiO2 40 04/24/22 08:05 Intake & Output 04/23/22 04/24/22 04/24/22 18:59 06:59 18:59 Intake Total 3251 Output Total 893 588 1245 Balance 2776 -805 -1200 Weight 94.9 kg Intake: IV 3251 Output: Drainage 305 Back 305 Urine 483 713 5591 Estimated Blood Loss 250 Other: Voiding Method Indwelling Catheter - Exam Gen: AOx3, NAD VSS stable at this time Integument: Postop bandage is in good position and condition, placed serosanguineous drainage and drain noted Palpation: Mild tenderness with palpation of the lower lumbar spine ROM: Full range of motion all major muscle groups of bilateral upper extremities. Full range of motion in all major muscle bilateral lower extremity is, she does have limitations with dorsiflexion and EHL on the left foot are well known history of foot drop Sensory Exam: Senory exam to light touch is intact C5-T1 Senosry exam to light touch is intact L2-S1 Motor: Lower extremities with 4 out of 5 strength in all major muscle groups except for Left foot in DF and EHL where she has 3/5 strength. She is able to fire TA and EHL however they are still weak. Upper extremities show 4/5 strength in all major muscle groups. no focal deficits, weakness secondary to her overall medical state Reflexes: 2/4 in all UE and LE Negative clonus, Seth's, Babinski bilaterally - Labs CBC & Chem 7: 04/24/22 04:29 04/24/22 04:29 Labs: Abnormal Lab Results - Last 24 Hours (Table) 04/23/22 04/24/22 04/24/22 Range/Units 20:32 04:26 04:29 WBC 17.00 H (4.50-10.00) X 10*3/uL RBC 3.93 L (4.10-5.20) X 10*6/uL MCV 97.7 H (80.0-97.0) fL MCHC 31.5 L (32.0-37.0) g/dL Immature Gran # 0.19 H (0.00-0.04) X 10*3/uL Neutrophils # 12.82 H (1.80-7.70) X 10*3/uL Monocytes # 1.02 H (0.20-1.00) X 10*3/uL D-Dimer (<0.60) mg/L FEU Anion Gap (10.00-18.00) mmol/L Est GFR (CKD-EPI)NonAf (60.0-200.0) Glucose (70-110) mg/dL POC Glucose (mg/dL) 165 H 220 H (70-110) mg/dL 04/24/22 04/24/22 04/24/22 Range/Units 04:29 07:17 07:22 WBC (4.50-10.00) X 10*3/uL RBC (4.10-5.20) X 10*6/uL MCV (80.0-97.0) fL MCHC (32.0-37.0) g/dL Immature Gran # (0.00-0.04) X 10*3/uL Neutrophils # (1.80-7.70) X 10*3/uL Monocytes # (0.20-1.00) X 10*3/uL D-Dimer 0.89 H (<0.60) mg/L FEU Anion Gap 9.80 L (10.00-18.00) mmol/L Est GFR (CKD-EPI)NonAf 58.7 L (60.0-200.0) Glucose 226 H (70-110) mg/dL POC Glucose (mg/dL) 152 H (70-110) mg/dL 04/24/ Range/Units 11:12 WBC (4.50-10.00) X 10*3/uL RBC (4.10-5.20) X 10*6/uL MCV (80.0-97.0) fL MCHC (32.0-37.0) g/dL Immature Gran # (0.00-0.04) X 10*3/uL Neutrophils # (1.80-7.70) X 10*3/uL Monocytes # (0.20-1.00) X 10*3/uL D-Dimer (<0.60) mg/L FEU Anion Gap (10.00-18.00) mmol/L Est GFR (CKD-EPI)NonAf (60.0-200.0) Glucose (70-110) mg/dL POC Glucose (mg/dL) 166 H (70-110) mg/dL Assessment and Plan Assessment: Postoperative day #1 status post revision L2-L4 decompression with posterior lateral interbody fusion Sleep apnea Recent respiratory distress Other medical comorbidities Plan: Pain control, discussed with patient we will limit some of the narcotics really help with her overall O2 status and breathing. We'll taper up on the medications as need be DVT prophylaxis, utilized MARYANN hose and compression stockings. Heparin also fine at this time Wound care, continue to monitor both dressing and drain, we'll likely change dressing when we remove drain in the next 2-3 days Weight-bear as tolerated with walker,PT and OT evaluation Other medical specialty recommendations appreciated Continue to follow patient during inpatient stay
[2022-04-24] MEDS ORDERED: GABAPENTIN 300 MG CAP PO SCH (16:00)
[2022-04-24] MEDS: HYDROcodone/APAP 5-325MG 1 EACH TAB PO PRN ×2 (16:05→22:25)
[2022-04-24] MEDS: methylPREDNISolone SOD SUCCI 40 MG/ML 1 ML VIAL IV SCH ×2 (16:07→22:25)
[2022-04-24 17:21] LABS: Glucose,Whole Blood 290 mg/dL (70-110)
[2022-04-24] MEDS ORDERED: DEXTROSE 50% SYRINGE 50 ML IVP PRN ×2 (18:35)
[2022-04-24] MEDS: INSULIN ASPART (NovoLOG) 100 UNIT/ML VIAL SQ SCH (18:56)
[2022-04-24 20:21] LABS: Glucose,Whole Blood 313 mg/dL (70-110)
[2022-04-24] MEDS: MONTELUKAST 10 MG TAB PO SCH (20:31)
[2022-04-24] MEDS: atenoloL 50 MG TAB PO SCH (20:31)
[2022-04-25] MEDS: ACETAMINOPHEN TAB 325 MG TAB PO SCH ×5 (00:30→23:58)
[2022-04-25] MEDS: PIPERACILLIN-TAZOBACTAM 3.375 GM in SODIUM CHLORIDE 0.9% 100 ML IVPB SCH ×3 (01:26→18:44)
[2022-04-25] MEDS: HYDROcodone/APAP 5-325MG 1 EACH TAB PO PRN ×2 (05:13→10:23)
[2022-04-25] MEDS: LACTATED RINGERS 1,000 ML IV SCH (06:32)
[2022-04-25 07:20] LABS: Glucose,Whole Blood 201 mg/dL (70-110)
[2022-04-25] MEDS: GABAPENTIN 300 MG CAP PO SCH ×3 (08:20→22:48)
[2022-04-25] MEDS: INSULIN ASPART (NovoLOG) 100 UNIT/ML VIAL SQ SCH ×4 (08:20→20:31)
[2022-04-25] MEDS: CYCLOBENZAPRINE 5 MG TAB PO SCH ×2 (08:20→20:31)
[2022-04-25] MEDS: MAGNESIUM OXIDE 400 MG TAB PO SCH (08:20)
[2022-04-25] MEDS: LORATADINE 10 MG TAB PO SCH (08:20)
[2022-04-25] MEDS: atenoloL 50 MG TAB PO SCH ×2 (08:20→20:31)
[2022-04-25] MEDS: ASPIRIN 81 MG PO SCH (08:20)
[2022-04-25] MEDS: methylPREDNISolone SOD SUCCI 40 MG/ML 1 ML VIAL IV SCH ×3 (08:20→22:48)
[2022-04-25] MEDS: SENNOSIDES-DOCUSATE SODIUM 1 EACH TAB PO PRN (10:24)
[2022-04-25 11:16] LABS: Glucose,Whole Blood 212 mg/dL (70-110)
--- NOTE | 2022-04-25 12:26 | PN ---
PROGRESS NOTE SUBJECTIVE: The patient is doing better today status post treatment for aspiration pneumonia, on CPAP at night, now she is on 4 L oxygen sat in the mid 90s. Her V/Q scan has not been done. OBJECTIVE: VITAL SIGNS: Temp 99, pulse 77, respiratory rate 12 to 16, blood pressure is 110 over 60s to 80s. CARDIOVASCULAR: S1, S2. LUNGS: Transmitted upper sounds. HEMATOLOGY: Negative for Homans. PSYCH: Fair mood and affect. She is more alert. EXTREMITIES: Movement in her legs bilaterally. LABORATORY DATA: White count 17, hemoglobin 12.1, sodium 141, potassium 5.3, BUN and creatinine are 19 and 1. Postoperative day 1, posterior lumbar, posterior lateral interbody fusion of L2-L4, sleep apnea, hypoxic respiratory distress, aspiration pneumonia, metabolic encephalopathy. She is improved. Continue with broad-spectrum antibiotics. Continue PT, OT, possibly rehab placement. MMODL / IJN: [id number] /
--- NOTE | 2022-04-25 12:55 | CONS ---
CONSULTATION HISTORY: A 66-year-old white female status post lumbar fusion per Dr. Alvarez, had respiratory distress. They reversed her with Narcan and with treatment for aspiration pneumonia with IV antibiotics. All labs and consult were reviewed. Vital signs were reviewed. Medical care reviewed. She is sitting up. She is lethargic, but she is giving appropriate answers. She is able to move her legs. PHYSICAL EXAMINATION: CARDIOVASCULAR: S1, S2. LUNGS: Scattered rhonchi and wheeze. HEMATOLOGY: Negative for Homans. ASSESSMENT: 1. Status post lumbar fusion. 2. Aspiration pneumonia. 3. Altered mental status secondary to pneumonia, anesthesia and pain medicine. 4. Metabolic encephalopathy secondary to the above, continue broad-spectrum antibiotics. 5. Rule out DVT. Please see further orders. Continue with IV Zosyn. MMODL / IJN: [id number] /
--- NOTE | 2022-04-25 13:25 | P.PN ---
Subjective Progress Note Date: 04/25/22 Principal diagnosis: Status post revision L2-L4 posterior lateral interbody fusion Patient was examined today at bedside, she is resting in her hospital bed. Patient is doing a lot better today, she is more awake and alert. She is moving the extremities better at this time. She still has not been out of bed at this time, urinary catheter remains in place. She does note some increasing pain today, we have cut back to narcotics. Currently denies any headaches, chest pain, general peroneal numbness, bilateral lower extremity numbness or tingling Objective - Vital Signs Vital signs: Vital Signs Temp 97.9 F 04/25/22 11:36 Pulse 64 04/25/22 11:36 Resp 14 04/25/22 11:36 BP 126/66 04/25/22 11:36 Pulse Ox 96 04/25/22 11:36 FiO2 40 04/25/22 03:31 Intake & Output 04/24/22 04/25/22 04/25/22 18:59 06:59 18:59 Output Total 1280 1060 40 Balance -1280 -1060 -40 Output: Drainage 80 60 40 Back 80 60 40 Urine 1200 1000 Other: Voiding Method Indwelling Catheter Indwelling Catheter - Exam Gen: AOx3, NAD VSS stable at this time Integument: Postop bandage is in good position and condition, placed serosanguineous drainage and drain noted Palpation: Mild tenderness with palpation of the lower lumbar spine ROM: Full range of motion all major muscle groups of bilateral upper extremities. Full range of motion in all major muscle bilateral lower extremity is, she does have limitations with dorsiflexion and EHL on the left foot are well known history of foot drop Sensory Exam: Senory exam to light touch is intact C5-T1 Senosry exam to light touch is intact L2-S1 Motor: Lower extremities with 4/5 strength in all major muscle groups except for Left foot in DF and EHL where she has 3/5 strength. She is able to fire TA and EHL however they are still weak. Upper extremities show 4/5 strength in all major muscle groups. no focal deficits, weakness secondary to her overall medical state Reflexes: 2/4 in all UE and LE Negative clonus, Seth's, Babinski bilaterally - Labs CBC & Chem 7: 04/24/22 04:29 04/24/22 04:29 Labs: Abnormal Lab Results - Last 24 Hours (Table) 04/24/22 04/24/22 04/25/22 Range/Units 17:20 20:19 06:25 POC Glucose (mg/dL) 290 H 313 H (70-110) mg/dL Hemoglobin A1c 6.5 H (0.0-6.0) % 04/25/22 04/25/22 Range/Units 07:18 11:14 POC Glucose (mg/dL) 201 H 212 H (70-110) mg/dL Hemoglobin A1c (0.0-6.0) % Assessment and Plan Assessment: Postoperative day #2 status post revision L2-L4 decompression with posterior lateral interbody fusion Sleep apnea Recent respiratory distress Other medical comorbidities Plan: Pain control, patient seems to be more awake and alert with the lower dose of narcotics. Discussed the patient we will continue to try to limit the narcotics to help with her overall medical state. DVT prophylaxis, utilized MARYANN hose and compression stockings. Heparin also fine at this time Wound care, continue to monitor both dressing and drain possibly remove the drain tomorrow morning and change dressing Discontinue urinary catheter today Weight-bear as tolerated with walker,PT and OT evaluation Other medical specialty recommendations appreciated Discussion with the patient today regarding her ambulatory status that she needs to get up out of bed with the use of a walker. Her goal today is to get the patient chair. Continue to follow patient during inpatient stay Time with Patient: Less than 30
[2022-04-25 17:05] LABS: Glucose,Whole Blood 248 mg/dL (70-110)
[2022-04-25] MEDS: HYDROcodone/APAP 7.5-325MG 1 EACH TAB PO PRN ×2 (17:22→22:48)
[2022-04-25 20:15] LABS: Glucose,Whole Blood 274 mg/dL (70-110)
[2022-04-25] MEDS: MONTELUKAST 10 MG TAB PO SCH (20:31)
[2022-04-26] MEDS: PIPERACILLIN-TAZOBACTAM 3.375 GM in SODIUM CHLORIDE 0.9% 100 ML IVPB SCH ×3 (02:32→17:43)
[2022-04-26] MEDS: LACTATED RINGERS 1,000 ML IV SCH (05:33)
[2022-04-26] MEDS: ACETAMINOPHEN TAB 325 MG TAB PO SCH ×3 (06:04→17:43)
[2022-04-26] MEDS: methylPREDNISolone SOD SUCCI 40 MG/ML 1 ML VIAL IV SCH ×3 (06:11→23:52)
[2022-04-26] MEDS: HYDROcodone/APAP 7.5-325MG 1 EACH TAB PO PRN ×2 (06:12→13:29)
[2022-04-26 07:28] LABS: Glucose,Whole Blood 178 mg/dL (70-110)
--- NOTE | 2022-04-26 08:10 | P.PN ---
Subjective Progress Note Date: 04/26/22 Principal diagnosis: Status post revision L2-L4 posterior lateral inter-body fusion Patient seen and examined at bedside. Patient is resting in bed. She reports that she has been ambulatory within room to restroom with no difficulty utilizing the walker. She states she is voiding without difficulty and just started passing gas, no BM. She states her pain is controlled on current regimen. Surgical dressing CDI with drain present, this will be discontinued at lunchtime. Patient is trying to decide if she should be going home with homecare vs rehab, explained to patient she needs to be safe and to follow instructions with PT/OT. She currently denies any fever/chills, nausea/vomiting, or chest pain. She denies any numbness or tingling to bilateral lower extremities. Objective - Vital Signs Vital signs: Vital Signs Temp 98.2 F 04/26/22 04:10 Pulse 66 04/26/22 04:10 Resp 18 04/26/22 04:10 BP 159/69 04/26/22 04:10 Pulse Ox 97 04/26/22 04:10 FiO2 40 04/26/22 04:52 Intake & Output 04/25/22 04/26/22 04/26/22 18:59 06:59 18:59 Intake Total 700 Output Total 550 685 Balance -550 15 Intake: Intake, IV Titration 100 Amount Piperacillin-Tazobactam 3 100 .375 gm In Sodium Chloride 0.9% 100 ml @ 25 mls/hr IVPB Q8H COUNT INCLUDES THE [facility] Rx#: [id number] Oral 600 Output: Drainage 75 85 Back 75 85 Urine 475 600 Other: Voiding Method Indwelling Catheter # Voids 1 - Exam Physical Examination General: The patient is awake and alert, in no acute distress Skin: Skin is warm and dry with no obvious rashes or lesions. Hairy patches absent, no dorsal skin dimples, no cafe au lait spots, surgical incision to lumbar region. Hemovac present. Eye: Pupils are equal, round and reactive to light, extra-ocular movements are intact; there is normal conjunctiva bilaterally. Neck: The neck is supple, there is no tenderness and ROM intact. Cardiovascular: There is a regular rate and rhythm. No murmur, rub or gallop is appreciated. Respiratory: Lungs are clear to auscultation, respirations are non-labored, breath sounds are equal. Gastrointestinal: Soft, non-distended, non-tender abdomen . Back: There is no tenderness to palpation in the midline, paralumbar, parathoracic or buttocks region. There is no obvious deformity . Musculoskeletal: ROM limited secondary to pain and stiffness from surgical procedure. Muscle strength in all major muscle groups 4/5 in bilateral upper extremities. 4/5 in bilateral lower extremities, she does have limitations with dorsiflexion and EHL on the left foot are well known history of foot drop. Neurological: CN 2-12 intact. There are no obvious motor or sensory deficits. Movement and coordination equal and intact. Sensory exam to light touch intact C5-T1 and intact from L2-S1. Reflexes 2/4 in bilateral upper and lower extremities. Negative Hoffmans, babinski, and clonus signs. Psychiatric: Cooperative, appropriate mood & affect, normal judgment. - Labs CBC & Chem 7: 04/24/22 04:29 04/24/22 04:29 Labs: Abnormal Lab Results - Last 24 Hours (Table) 04/25/22 04/25/22 04/25/22 Range/Units 06:25 11:14 17:04 POC Glucose (mg/dL) 212 H 248 H (70-110) mg/dL Hemoglobin A1c 6.5 H (0.0-6.0) % 04/25/22 04/26/22 Range/Units 20:13 07:26 POC Glucose (mg/dL) 274 H 178 H (70-110) mg/dL Hemoglobin A1c (0.0-6.0) % Assessment and Plan Assessment: Post-Op day 3: revision L2-L4 posterior lateral inter-body fusion Plan: Plan: -Appreciate bus info consultant and team management. -Activity: Ambulate QID, OOB all meals, up and about, limit lifting bending twisting to less than 5 lbs. Use walker or cane if needed for stability. -Daily PT/OT, increase ambulation strength and balance. -Brace when up and about, not needed in bed or chair -Pain control: Adequate at this time -Meds: reviewed -GI ppx: senna, Miralax -DVT PPX: Heparin, scds, teds -Hygiene: Shower today. Maintain dressing clean and dry. Meticulous cleaning after BMs away from the incision site -Drains: Maintain for now, will d/c later today. -Encourage IS 10x/hr -Dispo: Anticipate discharge home with homecare vs rehab *I reviewed and discussed this case with my attending Dr. Alvarez, whom has reviewed this chart and films and is in agreement with assessment and plan of care as outlined above. I have personally seen and examined the patient, performed the documentation and the assessment and plan as written. Number of minutes spent on the visit:20m.
[2022-04-26] MEDS: ASPIRIN 81 MG PO SCH (09:13)
[2022-04-26] MEDS: INSULIN ASPART (NovoLOG) 100 UNIT/ML VIAL SQ SCH ×4 (09:13→20:29)
[2022-04-26] MEDS: GABAPENTIN 300 MG CAP PO SCH ×3 (09:14→20:29)
[2022-04-26] MEDS: MAGNESIUM OXIDE 400 MG TAB PO SCH (09:14)
[2022-04-26] MEDS: LORATADINE 10 MG TAB PO SCH (09:14)
[2022-04-26] MEDS: CYCLOBENZAPRINE 5 MG TAB PO SCH ×2 (09:14→20:29)
[2022-04-26] MEDS: atenoloL 50 MG TAB PO SCH ×2 (09:14→20:29)
[2022-04-26 09:17] LABS: Basophils # (A) 0.01 X 10*3/uL (0.00-0.10); Basophils % (A) 0.1 %; Eosinophils # (A) 0 X 10*3/uL (0.04-0.35); Eosinophils % (A) 0 %; HGB 10.1 g/dL (12.0-15.0); Immature Grans, Automated 0.9 %; Lymphocytes % (A) 11.4 %; MCHC 32.6 g/dL (32.0-37.0); Mean Platelet Volume 11.9 fL (9.5-12.2); Monocytes % (A) 3.1 %; NRBC Per 100 WBC 0 /100 WBCS (0.0-0.0); Neutrophils # (A) 8.19 X 10*3/uL (1.80-7.70); Neutrophils % (A) 84.5 %; Platelet Count 170 X 10*3/uL (140-440); RBC 3.37 X 10*6/uL (4.10-5.20); RDW 13.6 % (11.5-14.5); WBC 9.69 X 10*3/uL (4.50-10.00)
[2022-04-26 09:43] LABS: African American GFR (CKD) 60.6 (60.0-200.0); Albumin 3.4 g/dL (3.8-4.9); Albumin/Globulin Ratio 1.7 (1.60-3.17); Anion Gap 7.4 mmol/L (10.00-18.00); BUN/Creat Ratio 23.82 Ratio (12.00-20.00); Blood Urea Nitrogen 26.2 mg/dL (9.0-27.0); Calcium 9.5 mg/dL (8.7-10.3); Carbon Dioxide 27.6 mmol/L (20.0-27.5); Non-African American GFR(CKD) 52.3 (60.0-200.0); Potassium 4.7 mmol/L (3.5-5.5); Total Bilirubin 0.2 mg/dL (0.30-1.20); Total Protein 5.4 g/dL (6.2-8.2)
[2022-04-26 12:07] LABS: Glucose,Whole Blood 249 mg/dL (70-110)
--- NOTE | 2022-04-26 12:58 | NM ---
EXAMINATION TYPE: NM pul perfusion DATE OF EXAM: 04/26/2022 COMPARISON: 04/25/2016. HISTORY: 66-year-old female shortness of breath, pulmonary embolus Technique: Following administration of 5.14 mCi Tc 99m MAA. Images obtained post injection. FINDINGS: There is normal perfusion seen throughout both lungs. No discrete perfusion defect. Similar appearanc e compared to 2015. IMPRESSION: Very low probability for pulmonary embolus.
[2022-04-26 17:46] LABS: Glucose,Whole Blood 215 mg/dL (70-110)
[2022-04-26 20:24] LABS: Glucose,Whole Blood 289 mg/dL (70-110)
[2022-04-26] MEDS: MONTELUKAST 10 MG TAB PO SCH (20:29)
--- NOTE | 2022-04-26 21:25 | PN ---
PROGRESS NOTE SUBJECTIVE: A white female. She had a V/Q scan, which showed low probability for PE. She has been treated for postop community-acquired pneumonia. She is deciding whether she wants to go to rehab or not. She denies any numbness or tingling to her lower extremities. OBJECTIVE: VITAL SIGNS: Blood pressure 150s over 60s, O2 of 97% on room air, temp 98.2, pulse 66, respiratory rate 18. HEART: S1, S2. LUNGS: Essentially mild wheeze. GI: Soft. EXTREMITIES: No cyanosis, clubbing, or edema. She has can move her legs. HEENT: Pupils equal, round, reactive. NEUROLOGIC: Cranial nerves are intact. LABORATORY DATA: White count is now normal. Labs reviewed. She is improving. ASSESSMENT: Status post L2-L4 posterior lateral interbody fusion, healthcare acquired pneumonia versus aspiration pneumonia, diabetes mellitus, chronic obstructive pulmonary disease, asthma, hypertension. Continue current medications. Possible discharge home or to a jail in the next day or 2. She appears to be improving medically. MMODL / IJN: [id number] /
[2022-04-26] MEDS: HYDROcodone/APAP 5-325MG 1 EACH TAB PO PRN (22:21)
[2022-04-27] MEDS: ACETAMINOPHEN TAB 325 MG TAB PO SCH ×5 (01:09→23:43)
[2022-04-27] MEDS: LACTATED RINGERS 1,000 ML IV SCH (01:10)
[2022-04-27] MEDS: PIPERACILLIN-TAZOBACTAM 3.375 GM in SODIUM CHLORIDE 0.9% 100 ML IVPB SCH ×3 (02:16→17:55)
[2022-04-27] MEDS: methylPREDNISolone SOD SUCCI 40 MG/ML 1 ML VIAL IV SCH ×2 (06:10→15:49)
--- NOTE | 2022-04-27 06:50 | P.PN ---
Progress Note - Text Progress Note Date: 04/27/22 Patient seen and examined, I reviewed the note, discussed the case with the PHOTO RETOUCHER first hand and agree with the assessment and plan of Ana Richter NP. Please see my notes below for any additional recommendations. patient seen and examined she is resting comfortably she is using CPAP at night. She denies fevers chills shortness of breath or chest pain she complains of back pain. States no leg pain at this time. Denies any other symptoms. Garcia is in place. She has not had a bowel movement yet. Physical Exam: -Patient is alert and oriented 3 appears well-nourished well-hydrated is in no acute distress. They do not appear septic. -There is TTP About the incision [-Incision is CDI, no EEE, no drainage] -Upper extremities show 4+ out of 5 strength in all major muscle groups. normal deconditioning -Lower extremities with 4+ out of 5 strength in all major muscle groups left lower extremity exhibits foot drop still -There is [FROM] that is [painless] of the b/l UE and LE in all major joints. [log roll] [SLR] [EXCEPT] -They are intact to light touch sensation in C5 to T1 and L2 to S1 nerve distribution. -DTR [2]/4 all upper and lower extremities -Patient has palpable distal pulses all 4 ext -Compartments are soft and compressible. -Patient shows a negative Prasanna's [-Neg Hoffmans b/l] [-Neg Clonus b/l] [-Neg babinski b/l] Cranial nerves II through XII are grossly intact. 66-year-old female postoperative day 4 from a revision decompression fusion L2 L4 plan: -Appreciate commercial sales consultant and team management. -Activity: Ambulate QID, OOB all meals, up and about, limit lifting bending twisting to less than 5 lbs. Use walker or cane if needed for stability. -Daily PT/OT, increase ambulation strength and balance. -[Brace when up and about, not needed in bed or chair] -Pain control: [Adequate at this time] -Meds: [reviewed] -GI ppx: senna, Miralax -DC garcia when up and about, bedside commode if needed -DVT PPX: [OK to restart Heparin tonight] -Hygiene: Shower today. Maintain dressing clean and dry. Meticulous cleaning after BMs away from incision site -Drains: [Maintain for now. Record output] -Encourage IS 10x/hr -Dispo: [Pending]
[2022-04-27 07:27] LABS: Glucose,Whole Blood 125 mg/dL (70-110)
[2022-04-27] MEDS: INSULIN ASPART (NovoLOG) 100 UNIT/ML VIAL SQ SCH ×4 (07:53→21:33)
[2022-04-27] MEDS: ASPIRIN 81 MG PO SCH (08:28)
[2022-04-27] MEDS: MAGNESIUM OXIDE 400 MG TAB PO SCH (08:29)
[2022-04-27] MEDS: CYCLOBENZAPRINE 5 MG TAB PO SCH ×2 (08:29→21:33)
[2022-04-27] MEDS: LORATADINE 10 MG TAB PO SCH (08:29)
[2022-04-27] MEDS: atenoloL 50 MG TAB PO SCH ×2 (08:29→21:33)
[2022-04-27] MEDS: GABAPENTIN 300 MG CAP PO SCH ×3 (08:29→21:33)
[2022-04-27] MEDS: HYDROcodone/APAP 7.5-325MG 1 EACH TAB PO PRN ×2 (08:29→15:50)
[2022-04-27] MEDS: SENNOSIDES-DOCUSATE SODIUM 1 EACH TAB PO PRN (08:35)
[2022-04-27 11:19] LABS: Glucose,Whole Blood 129 mg/dL (70-110)
[2022-04-27 17:16] LABS: Glucose,Whole Blood 154 mg/dL (70-110)
--- NOTE | 2022-04-27 19:07 | P.PN ---
Progress Note - Text Progress Note Date: 04/27/22 Patient is need of a LSO brace due to recent lumbar surgery. Prescription has been placed in chart. Patient to wear brace when up and about, not needed when sitting in chair or in bed.
[2022-04-27 20:36] LABS: Glucose,Whole Blood 247 mg/dL (70-110)
[2022-04-27] MEDS: MONTELUKAST 10 MG TAB PO SCH (21:33)
[2022-04-28] MEDS: LACTATED RINGERS 1,000 ML IV SCH (02:36)
[2022-04-28] MEDS: PIPERACILLIN-TAZOBACTAM 3.375 GM in SODIUM CHLORIDE 0.9% 100 ML IVPB SCH ×3 (02:36→17:58)
[2022-04-28] MEDS: ACETAMINOPHEN TAB 325 MG TAB PO SCH ×3 (06:45→17:53)
--- NOTE | 2022-04-28 07:01 | PN ---
PROGRESS NOTE SUBJECTIVE: A 66-year-old white female remains on Solu-Medrol for her back. We are going to cut it down to try to get her on oral steroids prior to discharge. She is feeling better at this time. She is on IV Zosyn for aspiration pneumonia. She continues to improve. Sugars are mid 200s. Hemoglobin is 10.1, white count was 9.69. ASSESSMENT: Aspiration pneumonia, status post lumbar fusion, multiple medical problems. Switch to oral steroids. Possible discharge to the rehab center next day or 2 for more physical therapy. MMODL / IJN: [id number] /
[2022-04-28 07:15] LABS: Glucose,Whole Blood 109 mg/dL (70-110)
--- NOTE | 2022-04-28 08:38 | P.OP ---
Date of Procedure: 04/23/22 Preoperative Diagnosis: 1. L2-4 spondylosis with stenosis 2. LLE weakness 3. Low back pain, mechanical 4. s/p L3-5 decompression Postoperative Diagnosis: 1. L2-4 spondylosis with stenosis 2. LLE weakness 3. Low back pain, mechanical 4. s/p L3-5 decompression Procedure(s) Performed: 1. L2-3 and L3-4 posteriolateral and interbody fusion (45116, 31355) 2. Insertion of biomechanical device [id number] 3. L2-3 and L3-4 bilateral laminectomy, complete facetectomy and foraminotomy (25109, 00184) 4. Segmental instrumentation L2-4 87094 Use of IONM Implants: -[place] Jay[place] and screw system [place] -GLobus Sable and Banana cage x1 each -iFactor -MagnatOs -Autograft -Allograft Anesthesia: LISA Surgeon: Vikram Alvarez Rail Filler #1: Jon Logan (Was present and assisted with all aspects of the case from positioning to closure and dressing placement) Estimated Blood Loss (ml): 250 IV fluids (ml): 1,800 Urine output (ml): 350 Pathology: none sent Condition: stable Disposition: PACU Indications for Procedure: Shalonda Smalls is a 66 year old female presenting for evaluation of sudden onset of low back , leg pain and inability to ambulate. She recently now has had a fall related to this and continues to have back and leg pain that is now worsened. It was my pleasure to have seen and examined Ms. Smalls. In our visit today we have had a chance to go over subjective complaints, physical examination findings and treatments, including the natural course history without intervention and various interventional options. The imaging demonstrates . MRI from 08/06/2021 of the lumbar spine: IMages reviewed show post surgical changes with laminectomy from L3-L5 effective decompression. There is disc height loss L2-3 and L3-4. There is likely recurrent HNP left paracentral at L3-4 which is causing foraminal stenosis. There is no severe central stenosis. This disc extends far lateral in this area. There is L2-3 HNP that is left paracentral as well w/o far lateral extension and does cause some mild foraminal stenosis, no severe central stenosis. No lesions. No fractures. flattening of the normal lumbar lordosis secondary to disc collapse and spondylosis. No fracture. CT scan without contrast from 11/11/2021 of the lumbar spine: Images Reviewed in office with the patient. L1-2 Maintained alignment, Disc height VB height. L2-3 Spondylosis, segmental kyphosis with disc height collapse and bulge noted L3-4 s/p laminectomy posteriorly. Anterior disc shows spondylosis as well as facet hypertrophy and overgrowth L4-5 Spondylosis. S/p laminectomy posteriorly. Facet overgrowth L5-S1 s/p laminectomy, partial, spondylosis, some retrolisthesis, mild, disc bulging related, facet hypertrophy, mild. Alignment: PI: NA LL: 30 Coronal alignment: Maintained Fracture: None Lesion: None Large body habitus on CT noted. On physical exam, Ms. Smalls demonstrates . Foot drop on the LLE, LLE weakness, paresthesias. Low back pain, limited motion secondary to pain as well as inability recently to ambulate due to pain in her back and knee I explained to the patient that as her condition progresses it could cause continued sx, worsening sx or debility. At this time, based on the patients imaging and physical exam, I recommend surgery in the form or a: L2-S1 decompression and fusion . I discussed the risk and benefits of this procedure at length with Ms. mSalls. The patient and her sisteragreed to consider pursuing the procedure mentioned above. Plan: 1. L2-L4 decompression and fusion Description of Procedure: The patient was seen and examined in the preoperative area. All preoperative protocols were followed. Informed consent was obtained risks and benefits of the procedure were discussed at length. Risks including bleeding infection damage to the surrounding tissue and risk of reoperation were discussed with the patient. Risk of anesthesia up to and including was a discussed with the patient. These are outlined in the risk review. They were willing to accept these risks and all of the risks of surgery. The patient was given a weight- based dose of antibiotics in the form of 2 g Ancef. The patient was seen and evaluated by the anesthesia team who deemed them fit for surgery. The site was marked, the patient was willing to proceed with the procedure. The patient was transferred to the operative suite by the Department of anesthesia. They were then drifted off to sleep by the department anesthesia and GETA was performed. The patient tolerated this well. [Pete catheter was placed by nursing staff, atraumatically]. Once confirmation of lines and ventilation the patient was transferred to a [prone Rikcy table very carefully]. All bony prominences including wrists, elbows, axilla, chest, hips, and thighs, and feet were padded very well. Special attention was paid to the genitalia and these were padded accordingly. SCDs were placed on bilateral lower extremities and were connected. Arms were well padded and placed [on arm boards up and out in the 90/90 position]. Once in position, again we confirmed good ventilation capabilities and that lines were running appropriately. The patient's lumbar spine was then exposed. 1010s were placed outlining the incision site. Standard alcohol was used to clean the incision site and allowed to dry. C-arm was used to biomark the patient and confirm level for incision which was marked with a skin marker. Operative briefing was performed with all teams and everyone in agreement to proceed. The patient was then prepped and draped in a normal sterile fashion. Timeout was then performed and all parties were in agreement with the procedure to be performed. skin incision was made over the previous eval marked area in line with the previous skin incision made. Dissection was taken down until the fascia was identified. This was then split midline. Spinous processes of L1 through L5 were palpated. We then connected between these as there was midline defect from her previous laminectomy. Once this was identified we took the dissection out laterally subperiosteally over L2 through L4 identifying facet joints at each level as well as the midline defect. We dissected out over transverse processes which were identified and then decorticated with high-speed bur L2 through L4. Once this was accomplished and there was good excursion you are able to proceed with hardware placement. Screws were then placed bilaterally into pedicles L2- L3 and L4 respectively using a freehand technique. High-speed bur was used with lateral fluoroscopy to obtain a starting point once this was obtained a pedicle finder was then passed into the vertebral body and the screw length was then measured using a feeler probe this also ensured within the 4 boo of the pedicle. Screws measured it was then placed under lateral fluoroscopic imaging. We repeated this at L2 to 3 as well as L4 AP imaging confirmed screws to be in good position. once this was accomplished and then proceeded with placement of interbody cages. Bilateral laminectomy complete facetectomy and foraminotomies were performed at L2-3 and L3 4. L3 4 we accessed the disc space using an osteotome protecting neural elements after meticulous hemostasis. We then performed a complete discectomy at L3-L4 using teena and curettes down biting pituitary and bear claws. Once we had good bleeding end plates and a complete discectomy a globus Altera Cage was selected the cages then impacted into position under lateral fluoroscopy once in position was expanded and achieved good reduction of lordosis and height. We then back filled the cage DBM and I factor as well as packs the disc space with autograft and allograft. Surgicel was placed over this. Meticulous hemostasis performed. We then proceeded to interbody at the L2-L3 level. Disc space was accessed after mobilization of neural elements and protection. Osteotome was placed into the disc space followed by sequential teena. Once we achieved the height sikh we wan belle with teena a globus Sabal cage was selected. This was then impacted into position under lateral fluoroscopy. Prior to this we had placed anteriorly within the disc space autograft allograft and I factor. Once cages and position was expanded and then back filled with DBM. The cage was stable. Therefore meticulous hemostasis and irrigated the area thoroughly. We then sized and selected rods for the area but them accordingly and placed them once they are placed setscrews were placed and were final tightened. We then selected 2 cross-links and place these final tightened them. We then copiously irrigated the wound with 3 L of Ancef irrigation 3 L of gentamicin irrigation and 3 L of normal sterile saline. We then placed negative cross and bone graft in the posterior lateral gutters and impacted into position. Surgicel was placed on the dura. 2 g of vancomycin powder placed deep. Deep drain was placed and we then proceeded with closure. Layered closure consisted of #1 PDS in the deep fascial layer followed by 0 Vicryl in the deep subcu layer 2-0 Vicryl was placed in the superficial subcu layer and skin gemma placed in the skin. The wound edges approximated very well. The wound was then cleaned with alcohol and dried and dressed sterilely with an operative foam dressing 4 x 4 and Tegaderm. The drain was sewn into position. The patient was transferred back to their hospital bed atraumatically. [Drain continued to hold suction and were in good position]. Patient was then awakened and extubated by the department of anesthesia having tolerated the procedure very well with no complications. They were transferred to the postoperative care unit in stable condition.
[2022-04-28] MEDS: CYCLOBENZAPRINE 5 MG TAB PO SCH ×2 (09:00→20:24)
[2022-04-28] MEDS: LORATADINE 10 MG TAB PO SCH (09:00)
[2022-04-28] MEDS: predniSONE 20 MG TAB PO SCH (09:00)
[2022-04-28] MEDS: GABAPENTIN 300 MG CAP PO SCH ×3 (09:00→20:25)
[2022-04-28] MEDS: MAGNESIUM OXIDE 400 MG TAB PO SCH (09:00)
[2022-04-28] MEDS: INSULIN ASPART (NovoLOG) 100 UNIT/ML VIAL SQ SCH ×4 (09:00→20:28)
[2022-04-28] MEDS: atenoloL 50 MG TAB PO SCH ×2 (09:00→20:24)
[2022-04-28] MEDS: ASPIRIN 81 MG PO SCH (09:01)
[2022-04-28] MEDS: HYDROcodone/APAP 5-325MG 1 EACH TAB PO PRN (09:02)
--- NOTE | 2022-04-28 09:05 | P.PN ---
Subjective Progress Note Date: 04/28/22 Principal diagnosis: Status post revision L2-L4 posterior lateral inter-body fusion Patient seen and examined at bedside. Patient is resting in bed. Patient has been working with PT and sitting up in chair. She is tolerating this well. Surgical dressing CDI. She currently denies any fever/chills, nausea/vomiting, or chest pain. She denies any numbness or tingling to bilateral lower extremities. Objective - Vital Signs Vital signs: Vital Signs Temp 98.6 F 04/28/22 05:12 Pulse 64 04/28/22 05:12 Resp 16 04/28/22 05:12 BP 179/89 04/28/22 05:12 Pulse Ox 99 04/28/22 05:12 FiO2 40 04/28/22 03:11 Intake & Output 04/27/22 04/28/22 04/28/22 18:59 06:59 18:59 Intake Total 100 Balance 100 Intake: Intake, IV Titration 100 Amount Piperacillin-Tazobactam 3 100 .375 gm In Sodium Chloride 0.9% 100 ml @ 25 mls/hr IVPB Q8H [facility] Rx#: [id number] Other: Voiding Method Bedside Commode Bedside Commode # Voids 1 - Exam Physical Examination General: The patient is awake and alert, in no acute distress Skin: Skin is warm and dry with no obvious rashes or lesions. Hairy patches absent, no dorsal skin dimples, no cafe au lait spots, surgical incision to lumbar region, dressing CDI Eye: Pupils are equal, round and reactive to light, extra-ocular movements are intact; there is normal conjunctiva bilaterally. Neck: The neck is supple, there is no tenderness and ROM intact. Cardiovascular: There is a regular rate and rhythm. No murmur, rub or gallop is appreciated. Respiratory: Lungs are clear to auscultation, respirations are non-labored, breath sounds are equal. Gastrointestinal: Soft, non-distended, non-tender abdomen . Back: There is no tenderness to palpation in the midline, paralumbar, parathora cic or buttocks region. There is no obvious deformity . Musculoskeletal: ROM limited secondary to pain and stiffness from surgical procedure. Muscle strength in all major muscle groups 4/5 in bilateral upper extremities. 4/5 in bilateral lower extremities, she does have limitations with dorsiflexion and EHL on the left foot are well known history of foot drop. Neurological: CN 2-12 intact. There are no obvious motor or sensory deficits. Movement and coordination equal and intact. Sensory exam to light touch intact C5-T1 and intact from L2-S1. Reflexes 2/4 in bilateral upper and lower extrem ities. Negative Hoffmans, babinski, and clonus signs. Psychiatric: Cooperative, appropriate mood & affect, normal judgment. - Labs CBC & Chem 7: 04/26/22 06:11 04/26/22 06:11 Labs: Abnormal Lab Results - Last 24 Hours (Table) 04/27/22 04/27/22 04/27/22 Range/Units 11:17 17:15 20:35 POC Glucose (mg/dL) 129 H 154 H 247 H (70-110) mg/dL Assessment and Plan Assessment: Post-Op day 5: revision L2-L4 posterior lateral inter-body fusion Plan: -Appreciate professional housing consultant and team management. -Activity: Ambulate QID, OOB all meals, up and about, limit lifting bending twisting to less than 5 lbs. Use walker or cane if needed for stability. -Daily PT/OT, increase ambulation strength and balance. -Brace when up and about, not needed in bed or chair, script left in chart. -Pain control: Adequate at this time -Meds: reviewed -GI ppx: senna, Miralax -DVT PPX: Heparin, scds, teds -Hygiene: Shower today. Maintain dressing clean and dry. Meticulous cleaning after BMs away from the incision site -Encourage IS 10x/hr -Dispo: Anticipate discharge home with homecare vs rehab *I reviewed and discussed this case with my attending Dr. Alvarez, whom has reviewed this chart and films and is in agreement with assessment and plan of care as outlined above. I have personally seen and examined the patient, performed the documentation and the assessment and plan as written. Number of minutes spent on the visit: 20m.
[2022-04-28 11:05] LABS: Glucose,Whole Blood 115 mg/dL (70-110)
[2022-04-28] MEDS: HYDROcodone/APAP 7.5-325MG 1 EACH TAB PO PRN (14:38)
[2022-04-28 17:14] LABS: Glucose,Whole Blood 291 mg/dL (70-110)
[2022-04-28] MEDS: MONTELUKAST 10 MG TAB PO SCH (20:24)
[2022-04-28 20:25] LABS: Glucose,Whole Blood 206 mg/dL (70-110)
[2022-04-29] MEDS: ACETAMINOPHEN TAB 325 MG TAB PO SCH ×4 (00:36→17:26)
[2022-04-29] MEDS: HYDROcodone/APAP 7.5-325MG 1 EACH TAB PO PRN ×3 (00:37→17:40)
--- NOTE | 2022-04-29 01:48 | PN ---
PROGRESS NOTE SUBJECTIVE: She actually is doing better today. She got up and walked to the commode or bathroom. Status post lumbar fusion. She is going to need rehab placement. Waiting for rehab placement. OBJECTIVE: CARDIOVASCULAR: S1, S2. LUNGS: Clear. GI: Soft. HEMATOLOGY: Negative for Homans. PSYCH: Fair mood and affect. VITAL SIGNS: Reviewed. Temperature 97.5, pulse 60s, respiratory rate 14 to 16, blood pressure , 97% on room air. ASSESSMENT AND PLAN: Status post lumbar fusion, chronic obstructive pulmonary disease, metabolic encephalopathy , hypertension, hypothyroidism. Continue current treatment. Possible discharge home tomorrow to rehab center. wait for rehab placement. MMODL / IJN: [id number] /
[2022-04-29] MEDS: PIPERACILLIN-TAZOBACTAM 3.375 GM in SODIUM CHLORIDE 0.9% 100 ML IVPB SCH ×3 (02:36→17:28)
[2022-04-29] MEDS: LACTATED RINGERS 1,000 ML IV SCH (06:19)
[2022-04-29 07:15] LABS: Glucose,Whole Blood 98 mg/dL (70-110)
--- NOTE | 2022-04-29 08:48 | P.PN ---
Subjective Progress Note Date: 04/29/22 Principal diagnosis: Status post revision L2-L4 posterior lateral inter-body fusion Patient seen and examined at bedside. Patient is resting in bed, with eyes closed. Attempted to wake patient, she seems lethargic this morning. Patient has been working with PT and sitting up in chair for meals. Awaiting LSO brace to be delivered. She currently denies any fever/chills, nausea/vomiting, or chest pain. She denies any numbness or tingling to bilateral lower extremities. Objective - Vital Signs Vital signs: Vital Signs Temp 98.7 F 04/29/22 05:00 Pulse 60 04/29/22 05:00 Resp 20 04/29/22 05:00 BP 178/76 04/29/22 05:00 Pulse Ox 94 L 04/29/22 05:00 FiO2 40 04/28/22 22:55 Intake & Output 04/28/22 04/29/22 04/29/22 18:59 06:59 18:59 Intake Total 100 590 Output Total 300 Balance 100 290 Intake: IV 100 Piperacillin-Tazobactam 3 100 .375 gm In Sodium Chloride 0.9% 100 ml @ 25 mls/hr IVPB Q8H [facility] Rx#: [id number] Oral 590 Output: Urine 300 Other: Voiding Method Bedside Commode Bedside Commode # Voids 1 2 - Exam Physical Examination General: The patient is awake and alert, in no acute distress Skin: Skin is warm and dry with no obvious rashes or lesions. Hairy patches absent, no dorsal skin dimples, no cafe au lait spots, surgical incision to lumbar region, dressing CDI Eye: Pupils are equal, round and reactive to light, extra-ocular movements are intact; there is normal conjunctiva bilaterally. Neck: The neck is supple, there is no tenderness and ROM intact. Cardiovascular: There is a regular rate and rhythm. No murmur, rub or gallop is appreciated. Respiratory: Lungs are clear to auscultation, respirations are non-labored, breath sounds are equal. Gastrointestinal: Soft, non-distended, non-tender abdomen . Back: There is no tenderness to palpation in the midline, paralumbar, parathoracic or buttocks region. There is no obvious deformity . Musculoskeletal: ROM limited secondary to pain and stiffness from surgical procedure. Muscle strength in all major muscle groups 4/5 in bilateral upper extremities. 4/5 in bilateral lower extremities, she does have limitations with dorsiflexion and EHL on the left foot are well known history of foot drop. Neurological: CN 2-12 intact. There are no obvious motor or sensory deficits. Movement and coordination equal and intact. Sensory exam to light touch intact C5-T1 and intact from L2-S1. Reflexes 2/4 in bilateral upper and lower extremities. Negative Hoffmans, babinski, and clonus signs. Psychiatric: Cooperative, appropriate mood & affect, normal judgment. - Labs CBC & Chem 7: 04/26/22 06:11 04/26/22 06:11 Labs: Abnormal Lab Results - Last 24 Hours (Table) 04/28/22 04/28/22 04/28/22 Range/Units 11:03 17:13 20:23 POC Glucose (mg/dL) 115 H 291 H 206 H (70-110) mg/dL Assessment and Plan Assessment: Post-Op day 6: revision L2-L4 posterior lateral inter-body fusion Plan: -Appreciate it solutions sales consultant and team management. -Activity: Ambulate QID, OOB all meals, up and about, limit lifting bending twisting to less than 5 lbs. Use walker or cane if needed for stability. -Daily PT/OT, increase ambulation strength and balance. -Brace when up and about, not needed in bed or chair -Pain control: Adequate at this time -Meds: reviewed -GI ppx: senna, Miralax -DVT PPX: Heparin, scds, teds -Hygiene: Shower today. Maintain dressing clean and dry. Meticulous cleaning after BMs away from the incision site -Encourage IS 10x/hr -Dispo: Anticipate discharge home with homecare vs rehab *I reviewed and discussed this case with my attending Dr. Alvarez, whom has reviewed this chart and films and is in agreement with assessment and plan of care as outlined above. I have personally seen and examined the patient, performed the documentation and the assessment and plan as written. Number of minutes spent on the visit: 20m.
[2022-04-29] MEDS: INSULIN ASPART (NovoLOG) 100 UNIT/ML VIAL SQ SCH ×4 (09:47→20:29)
[2022-04-29] MEDS: predniSONE 20 MG TAB PO SCH (09:57)
[2022-04-29] MEDS: atenoloL 50 MG TAB PO SCH ×2 (09:57→20:30)
[2022-04-29] MEDS: LORATADINE 10 MG TAB PO SCH (09:58)
[2022-04-29] MEDS: CYCLOBENZAPRINE 5 MG TAB PO SCH ×2 (09:58→20:30)
[2022-04-29] MEDS: ASPIRIN 81 MG PO SCH (09:58)
[2022-04-29] MEDS: MAGNESIUM OXIDE 400 MG TAB PO SCH (09:58)
[2022-04-29] MEDS: GABAPENTIN 300 MG CAP PO SCH ×3 (09:58→20:30)
[2022-04-29 10:39] LABS: Basophils # (A) 0.02 X 10*3/uL (0.00-0.10); Basophils % (A) 0.3 %; Eosinophils # (A) 0.18 X 10*3/uL (0.04-0.35); Eosinophils % (A) 2.7 %; HCT 33.1 % (37.2-46.3); HGB 10.6 g/dL (12.0-15.0); Immature Grans, Automated 1.8 %; Lymphocytes # (A) 2.62 X 10*3/uL (0.90-5.00); Lymphocytes % (A) 38.8 %; MCH 29.6 pg (27.0-32.0); MCV 92.5 fL (80.0-97.0); Mean Platelet Volume 10.9 fL (9.5-12.2); Monocytes # (A) 0.49 X 10*3/uL (0.20-1.00); Monocytes % (A) 7.3 %; NRBC Per 100 WBC 0 /100 WBCS (0.0-0.0); Neutrophils # (A) 3.32 X 10*3/uL (1.80-7.70); Neutrophils % (A) 49.1 %; Platelet Count 178 X 10*3/uL (140-440); RBC 3.58 X 10*6/uL (4.10-5.20); RDW 13.3 % (11.5-14.5); WBC 6.75 X 10*3/uL (4.50-10.00)
[2022-04-29 11:06] LABS: African American GFR (CKD) 77.2 (60.0-200.0); Albumin 3.3 g/dL (3.8-4.9); Albumin/Globulin Ratio 1.65 (1.60-3.17); Anion Gap 7.6 mmol/L (10.00-18.00); BUN/Creat Ratio 20.33 Ratio (12.00-20.00); Blood Urea Nitrogen 18.3 mg/dL (9.0-27.0); Calcium 9.5 mg/dL (8.7-10.3); Carbon Dioxide 32.4 mmol/L (20.0-27.5); Non-African American GFR(CKD) 66.6 (60.0-200.0); Potassium 3.9 mmol/L (3.5-5.5); Total Bilirubin 0.4 mg/dL (0.30-1.20); Total Protein 5.3 g/dL (6.2-8.2)
[2022-04-29 12:09] LABS: Glucose,Whole Blood 130 mg/dL (70-110)
--- NOTE | 2022-04-29 13:56 | P.DS ---
Providers Date of admission: 04/25/22 13:00 Expected date of discharge: 04/29/22 Attending physician: Vikram Alvarez, Consults: 04/24/22 05:19 Consult Physician Routine Consulting Provider: Tavo Lisa Reason/Comments: medical management Do you want consulting provider notified?: Yes 04/24/22 05:53 Consult Physician Routine Consulting Provider: Terry Powers Consult Reason/Comments: bipap Do you want consulting provider notified?: Yes, Notify in am [facility] Course: Date of admission: 04/23/2022 Date of discharge: 04/29/2022 Admission diagnosis: 1. L2-4 spondylosis with stenosis 2. LLE weakness 3. Low back pain, mechanical 4. s/p L3-5 decompression Discharge diagnosis: Same Attending physician: Dr. Alvarez Surgical procedures: L2-3 and L3-4 posteriolateral and interbody fusion; L2-3 and L3-4 bilateral laminectomy, complete facetectomy and foraminotomy Brief history: Patient is a 66-year-old female with a history of L2-L4 spondylosis with stenosis; left large any weakness; low back pain. At this point patient has failed conservative treatment measures and has opted to proceed with a elective L2-3 and L3-4 posteriolateral and interbody fusion; L2-3 and L3-4 bilateral laminectomy, complete facetectomy and foraminotomy. Hospital course: Details of patient's surgery can be found in operative report. Patient tolerated the procedure well and was subsequently transported to orthopedic floor. Patient's orthopeidc and medical care was provided daily. Patient had daily laboratory tests performed for evaluation of overall blood counts. Patient had daily physical therapy to include strengthening range of motion as well as education with walker ambulation. Patient was noted to have a relatively uneventful postoperative course. Patient reported satisfactory pain control with oral pain medications by postoperative day 6. Patient showed satisfactory progress with physical therapy. Patient moved steadily through the program and had no difficulty meeting the goals by postoperative day 6. Given patient's otherwise satisfactory course and having met physical therapy goals, plan is to discharge patient to rehab on postoperative day 6. Discharge condition/disposition: Patient will be discharged to rehab in stable condition. Discharge medications: Instructions are given on resumption of patient's normal daily medications per primary care recommendation, in addition patient will be prescribed Dryden; gabapentin; Flexeril; there is a; senna. Spine Discharge and Recovery Instructions Date of Surgery: 04/23/2022 Diagnosis: 1. L2-4 spondylosis with stenosis 2. LLE weakness 3. Low back pain, mechanical 4. s/p L3-5 decompression Procedure: L2-3 and L3-4 posteriolateral and interbody fusion; L2-3 and L3-4 bilateral laminectomy, complete facetectomy and foraminotomy Medications: See medication list All medication refills should be obtained through your primary care doctor or your clinic spine surgeon. Please discuss prescription refills at your follow up appointment. Do not call the hospital for medication refills. Dressing: Leave your dressing in place for a total of 5 days post operatively. Then you may remove your dressing and leave open to air. Keep the area clean and if not able to keep area clean, then cover with sterile gauze and tape. Showering: You may shower 3 days after your procedure allowing soap and water to run over incision. Do not scrub. Do not soak. Blot dry. Follow up: Please confirm a follow up appointment with your surgeon 3 weeks post operatively. Please make an appointment to follow up with your PCP in 1-2 weeks after lr rgery for evaluation 3 phase, 3-week plan POST OP WEEKS 1-3 1. Lifting/carrying/pushing/pulling limited to less than 5 pounds. 2. Do not sit for longer than 15 minutes at one time. Get up and walk around. Prolonged sitting is NOT advised. If you lay down, see if you can tolerate laying down on you front (belly side) 3. Walk for periods of 15 minutes = 1 mile but no longer; do it multiple times times each day. 4. Ice your low back after activity. POST OP WEEKS 3-6 1. Lifting limited to less than 20 pounds. 2. Do not sit for longer than 30 minutes at a time. Frequently change positions. Use a sit-to stand workstation or take frequent breaks from sitting if you have returned to work. 3. Walk for 30 minutes each day. If possible, do these three or more times a day POST OP WEEKS 6+ At your 6-week appointment we will give you a physical therapy referral to focus on a core stabilization and strengthening program. You should also work on leg & buttock strengthening, hamstring & quadriceps stretching, and continue a low impact aerobic activity program such as swimming, walking, or riding a stationary bicycle. During the initial 6 weeks after your surgery, you are at the highest risk of re-injuring your spine. You should generally avoid BLTs (bending, lifting and twisting combination motions) and follow the above guidelines to reduce the chance of reinjury. You can anticipate post op appointments in our office at approximately 3 weeks and 6 weeks after your surgery. INCISION CARE: If your incision is not draining you do NOT need to cover it with a dressing. Keep your incision clean, dry and intact. In most cases, we apply skin glue, gemma or sutures to the incision at the time of surgery. This will be like a crust or have the appearance of a scab and will fall off in time on its own. The stitches or gemma need to be removed at 3 weeks post op appointment. You may begin to shower 3 days after surgery (this allows the glue to elizabeth well). However, please avoid scrubbing the incision site or peeling off any of the skin glue. This will ensure optimal healing of your incision. Also, during this time avoid soaking the incision area in water - this includes swimming pools, hot tubs or baths. No ointments, lotions or oils on the incision until your surgeon allows. Leave gemma, sutures or glue in place. Neurological dysfunction that comes on suddenly can also be a sign of a stroke. Below some common symptoms of a stroke are listed: B - balance difficulty such as sudden onset walking or leaning to one side - NEW E - eye problem such as sudden double vision or trouble seeing on one side - NEW F - Facial weakness or numbness on one side - NEW A - Arm or leg weakness or numbness on one side - NEW S - Slurred speech or difficulty with word finding - NEW T - Time is BRAIN! Call 911 as soon as you recognize these symptoms Diet: Consume a regular diet rich in vegetables and lean protein such as chicken or fish. You should consume in a ratio of approximately 20% fats|40% carbohydrates|40%protein. Vegetables, sweet potatoes, brown rice or quinoa are examples of good carbohydrates. Chips, white bread, cookies and sweets/sugar are examples of bad carbohydrates. Limit your bad carbs, go wild with good carbs. "Life's Simple 7" Guidelines as per [place] [employer] These will help you reclaim your life after surgery and hot tar roofer helper in your recovery, keeping in mind your restrictions. (1) Get Active. Physical activity can help people lose weight, control high blood pressure and cholesterol, feel emotionally better, and sleep better. (2) Control Cholesterol. Avoid a diet high in saturated fat, trans fat, & cholesterol. Limit whole milk & cream, ice cream, butter, egg yolks, processed meats (like sausage and hot dogs), and fatty meats. Choose healthy foods that are low in saturated fat, trans fat and cholesterol which include: Fruits and vegetables, fiber rich grain products (like whole grain pasta and brown rice), lean meat such as chicken, fish, nuts, seeds, and legumes. (3) Eat Better. Eat small portions. Shop at the grocery with a list and do not stray from it. Tips for a healthy diet include: Limit sodium intake to less than 1500mg daily, avoid prepackaged, processed, and fast foods, choose a diet rich in fruits, vegetables, and whole grain, high fiber foods, and limit saturated & cholesterol in your diet. (4) Manage Blood Pressure. If you have high blood pressure, you should have a cuff at home so that you can check your blood pressure regularly. Be sure you have a good cuff. An arm one is generally better than a wrist one. Bring the cuff to a doctor's appointment to validate that the measurements that your cuff are taking are accurate. Take your blood pressure twice daily when you are sitting down and relaxing. Record the numbers in a log and bring this log with you to your doctors' appointments. (5) Lose Weight if your BMI is above 25. A healthy BMI is between 19-25. To calculate Your BMI, you may use a Standard BMI Calculator on the NIH BMI website: <www.nhlbi.nih.gov/guidelines/obesity/BMI/bmicalc.htm>. Weigh oneself daily. If you are overweight, set a goal to lose weight. A pound a week loss if needed is a good target. (6) Reduce Blood Sugar. Limit foods and liquids with "added sugars." (Added sugars include sucrose, fructose, glucose, maltose, dextrose, high fructose corn syrup, corn syrup, concentrated fruit juice and honey). (7) Stop Smoking. If you smoke, quitting smoking is one of the best things that you can do for your health. Smoking increases your risk of heart attack, stroke, and peripheral vascular disease, which is a build-up of plaque in your arteries. Please discard all the cigarettes and lighters in your house. Have a plan for what you will do when you have the urge to smoke. Direct and second- hand smoke shortens your life as well as the lives of your family, friends and others around you. For your health and the health of those around you, please consider quitting! Proper Bending Body Mechanics: Maintain a wide stance with one foot slightly in front of the other. Keep your back straight. Bend utilizing the strength in your hips and knees. Do not bend at the waist. Maintain the lifted object at your waist-level close to your body. Avoid lifting weight that causes immediately pain or pain anywhere in the body afterwards. Smoking/Nicotine If there was ever one thing that you could do to increase your overall health, decrease your risk of cardiovascular problems by about 39% the second you make the choice, it is to STOP SMOKING. Your body's most instant gratification is the second you stop smoking. We have all heard the studies, read the articles but it is true, smoking is extremely bad for your overall health, and moreover it is detrimental to your bone health. Nicotine, IN ANY FORM, kills bone cells, prevents your body from healing fractures, and significantly prolongs healing after surgery. In spine surgery specifically, it increases your risk of not healing your bones to create a fusion and increases your risk of having a revision surgery due to this up to 60%. I know it is hard. I know it feels impossible. But there are ways. Take control of your life. We are here to help you through it. And when you are ready, ask us and we can direct you to help if you desire. Use the START Plan to Quit Smoking (please visit the [email or web address] website listed below for more information): S = Set a quit date. Choose a date within the next 2 weeks, so you have enough time to prepare without losing your motivation to quit. If you mainly smoke at work, quit on the weekend, so you have a few days to adjust to the change. T = Tell family, friends, and co-workers that you plan to quit. Let your friends and family in on your plan to quit smoking and tell them you need their support and encouragement to stop. Look for a quit raffi who wants to stop smoking as well. You can help each other get through the rough times. A = Anticipate and plan for the challenges you'll face while quitting. Most people who begin smoking again do so within the first 3 months. You can help yourself make it through by preparing ahead for common challenges, such as nicotine withdrawal and cigarette cravings. R = Remove cigarettes and other tobacco products from your home, car, and work. Throw away all your cigarettes (no emergency pack!), lighters, ashtrays, and matches. Wash your clothes and freshen up anything that smells like smoke. Shampoo your car, clean your drapes and carpet, and steam your furniture. T = Talk to your doctor about getting help to quit. Your doctor can prescribe medication to help with withdrawal and suggest other alternatives. If you can't see a doctor, you can get many products over the counter at your local pharmacy or grocery store, including the nicotine patch, nicotine lozenges, and nicotine gum. Resources for Quitting Smoking: <https://www.[place].gov/documents/[facility]/Quit_Tobacco_Resources_for_patients_313 480_7.pdf> Supplementation: Take recommended dosages of Vitamin D and Calcium to help fortify your bones and help them to heal. See your health maintenance packet for dosages and recommended levels. DVT/VTE prophylaxis: You will be given compression stockings from the hospital. Wear these daily for the first two weeks after surgery. You may take them off at night. You may be prescribed a medication to help thin your blood. Take this as directed. If you are not prescribed this medication, early and frequent ambulation has been shown to be the best prophylaxis to deep vein thrombosis and sequelae related to this event. Assessment: 1. L2-4 spondylosis with stenosis 2. LLE weakness 3. Low back pain, mechanical 4. s/p L3-5 decompression Procedures: - L2-3 and L3-4 posteriolateral and interbody fusion - L2-3 and L3-4 bilateral laminectomy, complete facetectomy and foraminotomy Patient Condition at Discharge: Good Plan - Discharge Summary Discharge Rx Participant: Yes New Discharge Prescriptions: New Sennosides/Docusate Sodium [Senna Plus 8.6-50 mg Tablet] 1 each PO DAILY #20 tablet cefaDROXiL [Duricef] 500 mg PO Q12HR 5 Days #10 cap Cyclobenzaprine [Flexeril] 5 mg PO BID #20 tablet Gabapentin 300 mg PO TID #24 cap HYDROcodone/APAP 7.5-325MG [Dryden 7.5] 1 each PO Q6HR PRN #28 tab PRN Reason: Pain No Action Montelukast [Singulair] 10 mg PO HS Glimepiride [Amaryl] 1 mg PO BID Gabapentin 300 mg PO TID #9 cap atenoloL [Tenormin] 50 mg PO BID Magnesium Oxide 400 mg PO DAILY Aspirin [Adult Low Dose Aspirin EC] 81 mg PO DAILY Loratadine [Claritin] 10 mg PO DAILY diazePAM [Diazepam] 2 mg PO BID Discharge Medication List Glimepiride [Amaryl] 1 mg PO BID 10/17/20 [History] Montelukast [Singulair] 10 mg PO HS 10/17/20 [History] Gabapentin 300 mg PO TID #9 cap 02/11/21 [Rx] Aspirin [Adult Low Dose Aspirin EC] 81 mg PO DAILY 04/21/22 [History] Loratadine [Claritin] 10 mg PO DAILY 04/21/22 [History] Magnesium Oxide 400 mg PO DAILY 04/21/22 [History] atenoloL [Tenormin] 50 mg PO BID 04/21/22 [History] diazePAM [Diazepam] 2 mg PO BID 04/21/22 [History] Cyclobenzaprine [Flexeril] 5 mg PO BID #20 tablet 04/29/22 [Rx] Gabapentin 300 mg PO TID #24 cap 04/29/22 [Rx] HYDROcodone/APAP 7.5-325MG [Dryden 7.5] 1 each PO Q6HR PRN #28 tab 04/29/22 [Rx] Sennosides/Docusate Sodium [Senna Plus 8.6-50 mg Tablet] 1 each PO DAILY #20 tablet 04/29/22 [Rx] cefaDROXiL [Duricef] 500 mg PO Q12HR 5 Days #10 cap 04/29/22 [Rx] Follow up Appointment(s)/Referral(s): Vikram Alvarez DO [Doctor of Osteopathic Medicine] - 2 Weeks Johanny Lopez [NON-STAFF] - 1 Week Activity/Diet/Wound Care/Special Instructions: LSO Back brace ordered - and your insurance company requires an authorization process, the process was started on 04/26/22 - the process can take up to 5 days, if you do not get your brace in the hospital call [facility] and make arrangements to get brace fitted. Spine Discharge and Recovery Instructions Date of Surgery: 04/23/2022 Diagnosis: 1. L2-4 spondylosis with stenosis 2. LLE weakness 3. Low back pain, mechanical 4. s/p L3-5 decompression Procedure: L2-3 and L3-4 posteriolateral and interbody fusion; L2-3 and L3-4 bilateral laminectomy, complete facetectomy and foraminotomy Medications: See medication list All medication refills should be obtained through your primary care doctor or your clinic spine surgeon. Please discuss prescription refills at your follow up appointment. Do not call the hospital for medication refills. Dressing: Leave your dressing in place for a total of 5 days post operatively. Then you may remove your dressing and leave open to air. Keep the area clean and if not able to keep area clean, then cover with sterile gauze and tape. Showering: You may shower 3 days after your procedure allowing soap and water to run over incision. Do not scrub. Do not soak. Blot dry. Follow up: Please confirm a follow up appointment with your surgeon 3 weeks post operatively. Please make an appointment to follow up with your PCP in 1-2 weeks after surgery for evaluation 3 phase, 3-week plan POST OP WEEKS 1-3 1. Lifting/carrying/pushing/pulling limited to less than 5 pounds. 2. Do not sit for longer than 15 minutes at one time. Get up and walk around. Prolonged sitting is NOT advised. If you lay down, see if you can tolerate laying down on you front (belly side) 3. Walk for periods of 15 minutes = 1 mile but no longer; do it multiple times times each day. 4. Ice your low back after activity. POST OP WEEKS 3-6 1. Lifting limited to less than 20 pounds. 2. Do not sit for longer than 30 minutes at a time. Frequently change positions. Use a sit-to stand workstation or take frequent breaks from sitting if you have returned to work. 3. Walk for 30 minutes each day. If possible, do these three or more times a day POST OP WEEKS 6+ At your 6-week appointment we will give you a physical therapy referral to focus on a core stabilization and strengthening program. You should also work on leg & buttock strengthening, hamstring & quadriceps stretching, and continue a low impact aerobic activity program such as swimming, walking, or riding a stationary bicycle. During the initial 6 weeks after your surgery, you are at the highest risk of re-injuring your spine. You should generally avoid BLTs (bending, lifting and twisting combination motions) and follow the above guidelines to reduce the chance of reinjury. You can anticipate post op appointments in our office at approximately 3 weeks and 6 weeks after your surgery. INCISION CARE: If your incision is not draining you do NOT need to cover it with a dressing. Keep your incision clean, dry and intact. In most cases, we apply skin glue, gemma or sutures to the incision at the time of surgery. This will be like a crust or have the appearance of a scab and will fall off in time on its own. The stitches or gemma need to be removed at 3 weeks post op appointment. You may begin to shower 3 days after surgery (this allows the glue to elizabeth well). However, please avoid scrubbing the incision site or peeling off any of the skin glue. This will ensure optimal healing of your incision. Also, during this time avoid soaking the incision area in water - this includes swimming pools, hot tubs or baths. No ointments, lotions or oils on the incision until your surgeon allows. Leave gemma, sutures or glue in place. Neurological dysfunction that comes on suddenly can also be a sign of a stroke. Below some common symptoms of a stroke are listed: B - balance difficulty such as sudden onset walking or leaning to one side - NEW E - eye problem such as sudden double vision or trouble seeing on one side - NEW F - Facial weakness or numbness on one side - NEW A - Arm or leg weakness or numbness on one side - NEW S - Slurred speech or difficulty with word finding - NEW T - Time is BRAIN! Call 911 as soon as you recognize these symptoms Diet: Consume a regular diet rich in vegetables and lean protein such as chicken or fish. You should consume in a ratio of approximately 20% fats|40% carbohydrates|40%protein. Vegetables, sweet potatoes, brown rice or quinoa are examples of good carbohydrates. Chips, white bread, cookies and sweets/sugar are examples of bad carbohydrates. Limit your bad carbs, go wild with good carbs. "Life's Simple 7" Guidelines as per [place] [employer] These will help you reclaim your life after surgery and hot tar roofer helper in your recovery, keeping in mind your restrictions. (1) Get Active. Physical activity can help people lose weight, control high blood pressure and cholesterol, feel emotionally better, and sleep better. (2) Control Cholesterol. Avoid a diet high in saturated fat, trans fat, & cholesterol. Limit whole milk & cream, ice cream, butter, egg yolks, processed meats (like sausage and hot dogs), and fatty meats. Choose healthy foods that are low in saturated fat, trans fat and cholesterol which include: Fruits and vegetables, fiber rich grain products (like whole grain pasta and brown rice), lean meat such as chicken, fish, nuts, seeds, and legumes. (3) Eat Better. Eat small portions. Shop at the grocery with a list and do not stray from it. Tips for a healthy diet include: Limit sodium intake to less than 1500mg daily, avoid prepackaged, processed, and fast foods, choose a diet rich in fruits, vegetables, and whole grain, high fiber foods, and limit saturated & cholesterol in your diet. (4) Manage Blood Pressure. If you have high blood pressure, you should have a cuff at home so that you can check your blood pressure regularly. Be sure you have a good cuff. An arm one is generally better than a wrist one. Bring the cuff to a doctor's appointment to validate that the measurements that your cuff are taking are accurate. Take your blood pressure twice daily when you are sitting down and relaxing. Record the numbers in a log and bring this log with you to your doctors' appointments. (5) Lose Weight if your BMI is above 25. A healthy BMI is between 19-25. To calculate Your BMI, you may use a Standard BMI Calculator on the NIH BMI website: <www.nhlbi.nih.gov/guidelines/obesity/BMI/bmicalc.htm>. Weigh oneself daily. If you are overweight, set a goal to lose weight. A pound a week loss if needed is a good target. (6) Reduce Blood Sugar. Limit foods and liquids with "added sugars." (Added sugars include sucrose, fructose, glucose, maltose, dextrose, high fructose corn syrup, corn syrup, concentrated fruit juice and honey). (7) Stop Smoking. If you smoke, quitting smoking is one of the best things that you can do for your health. Smoking increases your risk of heart attack, stroke, and peripheral vascular disease, which is a build-up of plaque in your arteries. Please discard all the cigarettes and lighters in your house. Have a plan for what you will do when you have the urge to smoke. Direct and second- hand smoke shortens your life as well as the lives of your family, friends and others around you. For your health and the health of those around you, please consider quitting! Proper Bending Body Mechanics: Maintain a wide stance with one foot slightly in front of the other. Keep your back straight. Bend utilizing the strength in your hips and knees. Do not bend at the waist. Maintain the lifted object at your waist-level close to your body. Avoid lifting weight that causes immediately pain or pain anywhere in the body afterwards. Smoking/Nicotine If there was ever one thing that you could do to increase your overall health, decrease your risk of cardiovascular problems by about 39% the second you make the choice, it is to STOP SMOKING. Your body's most instant gratification is the second you stop smoking. We have all heard the studies, read the articles but it is true, smoking is extremely bad for your overall health, and moreover it is detrimental to your bone health. Nicotine, IN ANY FORM, kills bone cells, prevents your body from healing fractures, and significantly prolongs healing after surgery. In spine surgery specifically, it increases your risk of not healing your bones to create a fusion and increases your risk of having a revision surgery due to this up to 60%. I know it is hard. I know it feels impossible. But there are ways. Take control of your life. We are here to help you through it. And when you are ready, ask us and we can direct you to help if you desire. Use the START Plan to Quit Smoking (please visit the [employer] website listed below for more information): S = Set a quit date. Choose a date within the next 2 weeks, so you have enough time to prepare without losing your motivation to quit. If you mainly smoke at work, quit on the weekend, so you have a few days to adjust to the change. T = Tell family, friends, and co-workers that you plan to quit. Let your friends and family in on your plan to quit smoking and tell them you need their support and encouragement to stop. Look for a quit raffi who wants to stop smoking as well. You can help each other get through the rough times. A = Anticipate and plan for the challenges you'll face while quitting. Most people who begin smoking again do so within the first 3 months. You can help yourself make it through by preparing ahead for common challenges, such as nicotine withdrawal and cigarette cravings. R = Remove cigarettes and other tobacco products from your home, car, and work. Throw away all your cigarettes (no emergency pack!), lighters, ashtrays, and matches. Wash your clothes and freshen up anything that smells like smoke. Shampoo your car, clean your drapes and carpet, and steam your furniture. T = Talk to your doctor about getting help to quit. Your doctor can prescribe medication to help with withdrawal and suggest other alternatives. If you can't see a doctor, you can get many products over the counter at your local pharmacy or grocery store, including the nicotine patch, nicotine lozenges, and nicotine gum. Resources for Quitting Smoking: <https://www.[place].gov/documents/[facility]/Quit_Tobacco_Resources_for_patients_313 480_7.pdf> Supplementation: Take recommended dosages of Vitamin D and Calcium to help fortify your bones and help them to heal. See your health maintenance packet for dosages and recommended levels. DVT/VTE prophylaxis: You will be given compression stockings from the hospital. Wear these daily for the first two weeks after surgery. You may take them off at night. You may be prescribed a medication to help thin your blood. Take this as directed. If you are not prescribed this medication, early and frequent ambulation has been shown to be the best prophylaxis to deep vein thrombosis and sequelae related to this event. Discharge Disposition: TRANSFER TO SNF/ECF
--- NOTE | 2022-04-29 13:56 | P.PN ---
Progress Note - Text Progress Note Date: 04/29/22 Date of Surgery: 04/23/2022 Diagnosis: 1. L2-4 spondylosis with stenosis 2. LLE weakness 3. Low back pain, mechanical 4. s/p L3-5 decompression Procedure: L2-3 and L3-4 posteriolateral and interbody fusion; L2-3 and L3-4 bilateral laminectomy, complete facetectomy and foraminotomy Prescription for back brace ordered. It is okay for the patient to work with physical therapy without the brace until it arrives
[2022-04-29 17:22] LABS: Glucose,Whole Blood 188 mg/dL (70-110)
[2022-04-29 20:10] LABS: Glucose,Whole Blood 223 mg/dL (70-110)
[2022-04-29] MEDS: SENNOSIDES-DOCUSATE SODIUM 1 EACH TAB PO PRN (20:29)
[2022-04-29] MEDS: MONTELUKAST 10 MG TAB PO SCH (20:30)
[2022-04-30] MEDS: ACETAMINOPHEN TAB 325 MG TAB PO SCH ×2 (01:10→05:44)
[2022-04-30] MEDS: PIPERACILLIN-TAZOBACTAM 3.375 GM in SODIUM CHLORIDE 0.9% 100 ML IVPB SCH ×2 (01:11→12:15)
--- NOTE | 2022-04-30 04:28 | PN ---
PROGRESS NOTE SUBJECTIVE: A 66-year-old white female status post lumbar fusion, aspiration pneumonia, abdominal pain, anemia, asthma. She is up walking to the door and back. She is going to go to rehab center tomorrow. taken care of. OBJECTIVE: VITAL SIGNS: Stable, afebrile. CARDIOVASCULAR: S1, S2. LUNGS: Transmitted upper sounds. HEMATOLOGY: Negative Homans. PSYCH: Fair mood and affect. ASSESSMENT: Status post lumbar fusion, neuropathy, aspiration pneumonia, constipation postop lumbar fusion PT, OT, send to rehab tomorrow under Dr. Lisa's service. MMODL / IJN: [id number] /
[2022-04-30 04:43] VITALS: RESP 16; TEMP 98.8
[2022-04-30] MEDS: HYDROcodone/APAP 7.5-325MG 1 EACH TAB PO PRN (04:49)
[2022-04-30 05:41] VITALS: BP 154/84; PULSE 64
[2022-04-30 07:31] LABS: Glucose,Whole Blood 99 mg/dL (70-110)
[2022-04-30] MEDS: INSULIN ASPART (NovoLOG) 100 UNIT/ML VIAL SQ SCH (08:05)
[2022-04-30] MEDS: LACTATED RINGERS 1,000 ML IV SCH (08:05)
[2022-04-30] MEDS: GABAPENTIN 300 MG CAP PO SCH (08:50)
[2022-04-30] MEDS: atenoloL 50 MG TAB PO SCH (08:50)
[2022-04-30] MEDS: MAGNESIUM OXIDE 400 MG TAB PO SCH (08:50)
[2022-04-30] MEDS: predniSONE 20 MG TAB PO SCH (08:50)
[2022-04-30] MEDS: CYCLOBENZAPRINE 5 MG TAB PO SCH (08:50)
[2022-04-30] MEDS: ASPIRIN 81 MG PO SCH (08:50)
[2022-04-30] MEDS: LORATADINE 10 MG TAB PO SCH (08:51)
--- NOTE | 2022-05-03 15:55 | CDI ---
Documentation Clarification Form Date: 05/03/2022 03:42:00 PM From: Yeny Painter Phone: Admit Date: 04/25/2022 01:00:00 PM Patient Name: Shalonda Smalls Visit Number: [id number] Discharge Date: 04/30/2022 01:05:00 PM ATTENTION: The Clinical Documentation Specialists (CDI) and [facility] Coding Staff appreciate your assistance in clarifying documentation. Please respond to the clarification below the line at the bottom and electronically sign. The CDI & [facility] Coding staff will review the response and follow-up if needed. Please note: Queries are made part of the Legal Health Record. If you have any questions, please contact the author of this message via ITS. Dr. Vikram Alvarez Unspecified anemia is documented per Progress Note 04/29/22. Additional specificity regarding the type and acuity of anemia is requested. History/Risk Factors: 66yo F, L2-4 spondylosis with stenosis & radiculopathy, COPD, HTN, DMII w CKD II, Hx peptic ulcer disease Clinical indicators: Hemoglobin: 12.1 04/24/22 10.1 04/26/22 10.6 04/29/21 Hematocrit: 38.4 04/24/22 31.0 04/26/22 33.1 04/29/22 Treatment: She is up walking to the door and back. She is going to go to rehab center tomorrow. taken care of. Please clarify the type(s) and acuity (ies) of anemia: [ ] Acute blood loss anemia [ ] Acute on chronic blood loss anemia [ ] Anemia of chronic kidney disease [ ] Unable to determine [ ] Other, please specify (Template Last Revised: July 2020) Unable to determine Query Medicine Provider EMILYD
--- NOTE | 2022-05-04 17:06 | CDI ---
Documentation Clarification Form Date: 05/04/2022 05:03 PM From: Yeny Painter Phone: Admit Date: 04/25/2022 01:00:00 PM Patient Name: Shalonda Smalls Visit Number: [id number] Discharge Date: 04/30/2022 01:05:00 PM ATTENTION: The Clinical Documentation Specialists (CDI) and [facility] Coding Staff appreciate your assistance in clarifying documentation. Please respond to the clarification below the line at the bottom and electronically sign. The CDI & [facility] Coding staff will review the response and follow-up if needed. Please note: Queries are made part of the Legal Health Record. If you have any questions, please contact the author of this message via ITS. Dr. Tavo Lisa Unspecified anemia is documented per Progress Note 04/29/22. Additional specificity regarding the type and acuity of anemia is requested. History/Risk Factors: 66yo F, L2-4 spondylosis with stenosis & radiculopathy, COPD, HTN, DMII w CKD II, Hx peptic ulcer disease Clinical indicators: Hemoglobin: 12.1 04/24/22 10.1 04/26/22 10.6 04/29/21 Hematocrit: 38.4 04/24/22 31.0 04/26/22 33.1 04/29/22 Treatment: She is up walking to the door and back. She is going to go to rehab center tomorrow. taken care of. Please clarify the type(s) and acuity (ies) of anemia: [ ] Acute blood loss anemia [ ] Acute on chronic blood loss anemia [ ] Anemia of chronic kidney disease [ ] Unable to determine [ ] Other, please specify (Template Last Revised: July 2020) MTDD
--- NOTE | 2022-05-10 07:33 | PN ---
PROGRESS NOTE Acute on chronic blood loss anemia. DICTATION ENDS HERE MMODL / IJN: [id number] /
== END 2022-04-30 13:05 | DRG 981 ==
LOC: OR 10:29 → 5NMEDONC 17:33 → OR 04-25 13:00 → 5NMEDONC 04-25 13:00
PROVIDERS: ADMIT Orthopaedic Surgery; ATTEND Orthopaedic Surgery
PROC: 01NB0ZZ Release Lumbar Nerve, Open Approach (ICD-10-PCS; 2022-04-23)
PROC: 0SG1071 Fusion of 2 or more Lumbar Vertebral Joints with Autologous Tissue Substitute, Posterior Approach, Posterior Column, Open Approach (ICD-10-PCS; principal; 2022-04-23 12:30)
PROC: 5A09357 Assistance with Respiratory Ventilation, Less than 24 Consecutive Hours, Continuous Positive Airway Pressure (ICD-10-PCS; 2022-04-24)
DX: J69.0 Pneumonitis due to inhalation of food and vomit (principal); G93.41 Metabolic encephalopathy; J96.01 Acute respiratory failure with hypoxia; J44.0 Chronic obstructive pulmonary disease with (acute) lower respiratory infection; D62 Acute posthemorrhagic anemia; I13.10 Hypertensive heart and chronic kidney disease without heart failure, with stage 1 through stage 4 chronic kidney disease, or unspecified chronic kidney disease; E11.22 Type 2 diabetes mellitus with diabetic chronic kidney disease; E03.9 Hypothyroidism, unspecified; M51.24 Other intervertebral disc displacement, thoracic region; M47.26 Other spondylosis with radiculopathy, lumbar region; J84.9 Interstitial pulmonary disease, unspecified; E78.5 Hyperlipidemia, unspecified; M48.061 Spinal stenosis, lumbar region without neurogenic claudication; M40.209 Unspecified kyphosis, site unspecified; M51.16 Intervertebral disc disorders with radiculopathy, lumbar region; R32 Unspecified urinary incontinence; M21.372 Foot drop, left foot; R29.6 Repeated falls; S82.891A Other fracture of right lower leg, initial encounter for closed fracture; I25.10 Atherosclerotic heart disease of native coronary artery without angina pectoris; N18.2 Chronic kidney disease, stage 2 (mild); R53.81 Other malaise; G47.30 Sleep apnea, unspecified; K59.00 Constipation, unspecified; G62.9 Polyneuropathy, unspecified; G89.29 Other chronic pain; R60.0 Localized edema; Y95 Nosocomial condition; Z96.651 Presence of right artificial knee joint; Z86.16 Personal history of COVID-19; Z87.01 Personal history of pneumonia (recurrent); Z91.81 History of falling; Z79.82 Long term (current) use of aspirin; Z79.84 Long term (current) use of oral hypoglycemic drugs; Z79.899 Other long term (current) drug therapy; Z86.718 Personal history of other venous thrombosis and embolism; I25.2 Old myocardial infarction; Z91.041 Radiographic dye allergy status; Z88.8 Allergy status to other drugs, medicaments and biological substances
CPT/HCPCS: 71045; 72100; 72131; 78580; 80048; 80053; 85025; 85379; 86850; 86900; 86901; 87635; 93005; 93970; 94660; 94760

== ENCOUNTER → 2022-06-10 | Outpatient (CLI) | payer MEDICARE, OTHER ==
--- NOTE | 2022-06-10 14:39 | CT ---
EXAMINATION TYPE: CT lumbar spine wo con CT DLP: 1334.3 mGycm, Automated exposure control for dose reduction was used. DATE OF EXAM: 06/10/2022 2:18 PM COMPARISON: 04/23/2022. CLINICAL INDICATION:Female, 66 years old with history of M54.50 LOW BACK PAIN, pain. pt had surgery t o lower back recently and fell 06/05 TECHNIQUE: Multiple axial images were obtained from the midportion of T11 through the sacroiliac lena nts. Soft tissue and bone windows in coronal and sagittal planes were obtained and reviewed. Contrast used: none. Oral contrast used: none. FINDINGS: Alignment: There are 5 lumbar type vertebral bodies within normal alignment. Bone: There is a curvilinear lucency through the L2 superior posterior vertebral body with 22 mm disp lacement no evidence of retropulsion or significant spinal canal or neural foraminal stenosis. Post s urgical changes to the lumbar spine including L2-L4 with discectomy at L2-L3 and L3-L4. Hardware appe ars intact. There is laminectomy changes from L2 to L4. Discs: T12-L1: No spinal canal or neural foraminal stenosis is identified. L1-L2: No spinal canal or neural foraminal stenosis is identified. L2-L3: Post surgical changes which limits evaluation. No gross spinal canal or neural foraminal steno sis identified. L3-L4: Post surgical changes which limits evaluation. No gross spinal canal or neural foraminal steno sis identified. L4-L5: Post surgical changes which limits evaluation. No gross spinal canal or neural foraminal sten osis identified. L5-S1: No spinal canal or neural foraminal stenosis is identified. Other: None IMPRESSION: Acute fracture of the L2 vertebral body superior/posterior corner. 1 to 2 mm displacement. No evidenc e for significant spinal canal stenosis. New from 04/23/2022.
== END | disposition home or self-care (01) ==
LOC: RADCTMAIN 13:56
PROVIDERS: ATTEND Orthopaedic Surgery
DX: S32.029A Unspecified fracture of second lumbar vertebra, initial encounter for closed fracture (principal); R29.6 Repeated falls
CPT/HCPCS: 72131

== ENCOUNTER 2022-06-17 13:35 | Inpatient (IN) | payer MEDICARE, OTHER ==
[2022-06-17] MEDS ORDERED: SODIUM CHLORIDE 0.9% 1,000 ML IV ONE (13:44)
[2022-06-17 13:49] LABS: Glucose,Whole Blood 103 mg/dL (70-110)
[2022-06-17] MEDS ORDERED: diphenhydrAMINE 50 MG/ML 1 ML VIAL IVP STA (13:50)
[2022-06-17] MEDS ORDERED: FAMOTIDINE 20 MG/2 ML VIAL IV STA (13:50)
[2022-06-17] MEDS ORDERED: methylPREDNISolone SOD SUCCI 125 MG/2 ML VIAL IV STA (13:50)
[2022-06-17 14:26] LABS: Basophils % (A) 1 %; Eosinophils # (A) 0.3 k/uL (0-0.7); Eosinophils % (A) 5 %; HCT 34.4 % (34.0-46.0); Lymphocytes # (A) 1.7 k/uL (1.0-4.8); Lymphocytes % (A) 33 %; MCH 32.1 pg (25.0-35.0); MCHC 34.9 g/dL (31.0-37.0); Mean Platelet Volume 8.7; Monocytes # (A) 0.3 k/uL (0-1.0); Monocytes % (A) 6 %; Neutrophils # (A) 2.7 k/uL (1.3-7.7); Neutrophils % (A) 53 %; Platelet Count 194 k/uL (150-450); Poikilocytosis Slight; RBC 3.74 m/uL (3.80-5.40); RDW 14.8 % (11.5-15.5); WBC 5.1 k/uL (3.8-10.6)
[2022-06-17 14:27] LABS: MCV 92.1 fL (80.0-100.0)
[2022-06-17 14:57] LABS: Partial Thromboplastin Time 25.4 sec (22.0-30.0); Prothrombin Time 10.9 sec (9.0-12.0)
[2022-06-17 15:12] LABS: ALT 18 U/L (4-34); AST 21 U/L (14-36); African American GFR (CKD) >90 (>60 ml/min/1.73 sqM); Albumin 3.4 g/dL (3.5-5.0); Alcohol <10 mg/dL; Alkaline Phosphatase 80 U/L (38-126); Anion Gap 6 mmol/L; Blood Urea Nitrogen 17 mg/dL (7-17); Calcium 8.7 mg/dL (8.4-10.2); Carbon Dioxide 26 mmol/L (22-30); Chloride 109 mmol/L (98-107); Glucose 91 mg/dL (74-99); Non-African American GFR(CKD) 83 (>60 ml/min/1.73 sqM); Potassium 3.8 mmol/L (3.5-5.1); Sodium 141 mmol/L (137-145); Total Bilirubin 0.9 mg/dL (0.2-1.3); Total Protein 5.8 g/dL (6.3-8.2)
[2022-06-17 15:13] LABS: Lactic Acid, Venous 1.4 mmol/L (0.7-2.0)
[2022-06-17] MEDS ORDERED: MORPHINE SULFATE 4 MG/ML SYRINGE IVP STA (15:25)
--- NOTE | 2022-06-17 16:04 | XR ---
EXAMINATION TYPE: XR chest 2V DATE OF EXAM: 06/17/2022 4:00 PM COMPARISON: Chest radiographs from 04/24/2022 TECHNIQUE: XR chest 2V Frontal and lateral views of the chest. CLINICAL INDICATION:Female, 66 years old with history of altered mental status; FINDINGS: Lungs/Pleura: There is no evidence of pleural effusion, focal consolidation, or pneumothorax. Pulmonary vascularity: Unremarkable. Heart/mediastinum: Cardiomediastinal silhouette is unremarkable. Musculoskeletal: No acute osseous pathology. IMPRESSION: No acute cardiopulmonary disease/process.
--- NOTE | 2022-06-17 16:07 | CT ---
EXAMINATION TYPE: CT brain wo con CT DLP: 1854 mGycm, Automated exposure control for dose reduction was used. DATE OF EXAM: 06/17/2022 4:00 PM COMPARISON: CT brain 02/25/2022 CLINICAL INDICATION:Female, 66 years old with history of altered mental status, gen weak, AMS TECHNIQUE: Brain: Multiple axial CT images of the brain were obtained without IV contrast. Coronal and sagittal reformats reviewed. FINDINGS: Brain: Extra-axial spaces: No abnormal extra-axial fluid collections. Ventricular system: Within normal limits Cerebral parenchyma: No acute intraparenchymal hemorrhage or mass effect. The anderson-white junction is well differentiated. Cerebellum: Unremarkable. Mass effect: No evidence of midline shift. Intracranial vasculature: unremarkable Soft tissues: Normal. Calvarium/osseous structures: No depressed skull fracture. Paranasal sinuses and mastoid air cells: Mild scattered paranasal sinus disease. Visualized orbits: Bilateral aphakia IMPRESSION: No acute intracranial process or significant change from prior.
--- NOTE | 2022-06-17 16:23 | CT ---
EXAMINATION TYPE: CT abdomen pelvis w con CT DLP: 1255.4 mGycm, Automated exposure control for dose reduction was used. DATE OF EXAM: 06/17/2022 4:00 PM COMPARISON: CT abdomen pelvis most recent from 04/24/2016. CLINICAL INDICATION:Female, 66 years old with history of abd pain; Pain TECHNIQUE: Standard CT of the abdomen and pelvis following the administration of 100 cc of Isovue 3 70 IV contrast material. Coronal and sagittal reformats were performed. FINDINGS: LOWER CHEST: Respiratory motion artifact evaluation. Mild cardiomegaly. ABDOMEN LIVER: Unremarkable GALLBLADDER AND BILE DUCTS: The gallbladder is surgically absent. No biliary ductal dilatation. PANCREAS: Unremarkable. SPLEEN: Unremarkable. ADRENAL GLANDS: Unremarkable. KIDNEYS AND URETERS: No hydronephrosis. Contrast is demonstrated within both collecting systems and e valuation for renal calculus. Bilateral subcentimeter hypodense foci which likely represent cysts. Th e kidneys enhance symmetrically. PELVIS BLADDER: Layering contrast identified from prior study. No filling defect. REPRODUCTIVE: The uterus is surgically absent. Stable left adnexal cystic lesion measuring up to 3 cm dating back to 2015 and considered benign (series 201, image 76). ABDOMEN & PELVIS STOMACH AND BOWEL: Stomach and duodenum are unremarkable. No focal wall thickening. The appendix is not definitively visualized however there is no significant inflammatory changes within the right low er quadrant. No evidence of bowel obstruction. PERITONEUM: No evidence of pneumoperitoneum or free fluid. VASCULATURE: Mild atherosclerotic calcifications are present throughout the abdominal aorta and its b ranches. No evidence of aortic aneurysm. MUSCULOSKELETAL: No acute osseous abnormalities . Postsurgical changes from lumbar fusion/laminectomi es. LYMPH NODES: No gross evidence for lymphadenopathy. SOFT TISSUE/ABDOMINAL WALL: Unremarkable IMPRESSION: 1. No acute dominant/pelvic process. 2. Stable left adnexal cystic lesion measuring up to 3 cm dating back to 2015 and considered benign.
--- NOTE | 2022-06-17 16:30 | CT ---
EXAMINATION TYPE: CT angio head neck CT DLP: 1854 mGycm, Automated exposure control for dose reduction was used. DATE OF EXAM: 06/17/2022 4:15 PM COMPARISON: CT brain 06/17/2022 MRA HEAD 02/03/2021. CLINICAL INDICATION:Female, 66 years old with history of AMS, weakness; PHH, AMS TECHNIQUE: Axially acquired helical CT angiogram of the head and neck was obtained with contrast util izing 75 cc of Isovue-370 administered intravenously. Axial images are supplemented with 3D reconstru ctions which were post-processed at an independent workstation. NASCET criteria used. FINDINGS: CTA HEAD: No evidence of acute intracranial hemorrhage, mass effect, or midline shift. The ventricles, sulci, a nd cisterns are unremarkable. The visualized portions of the internal carotid arteries, middle cerebral arteries, anterior cerebral arteries, and posterior cerebral arteries are patent. The basilar and vertebral arteries are patent. CTA NECK: Right Carotid System: The common carotid artery and external carotid artery are patent. The carotid bifurcation demonstrate s mild atherosclerotic calcification without evidence of hemodynamically significant stenosis. The re maining portions of the internal carotid artery demonstrate normal size without significant narrowing . Left Carotid System: The common carotid artery and external carotid artery are patent. The carotid bifurcation demonstrate s no evidence of hemodynamically significant stenosis. The remaining portions of the internal carotid artery demonstrate normal size without significant narrowing. Vertebral arteries are patent without evidence hemodynamically significant stenosis. There is a three-vessel aortic arch. The origins of the great vessels are patent. No evidence of hemo dynamically significant stenosis. Multifocal patchy airspace opacities throughout the lungs. IMPRESSION: 1. No evidence of dissection of the cervical internal carotid arteries or vertebral arteries or any e vidence of significant stenosis at the carotid bifurcations. 2. No evidence of high-grade stenosis or intracranial aneurysm. 3. Multifocal patchy airspace opacities throughout the lungs which may represent pulmonary edema vers us pneumonia.
[2022-06-17] MEDS ORDERED: bisacodyL 10 MG SUPP RECTAL PRN (17:36)
[2022-06-17] MEDS ORDERED: CYCLOBENZAPRINE 5 MG TAB PO PRN (17:36)
[2022-06-17] MEDS ORDERED: DEXTROSE 50% SYRINGE 50 ML IVP PRN (17:37)
[2022-06-17] MEDS ORDERED: ASPIRIN 325 MG TAB PO STA (18:23)
[2022-06-17] MEDS: AZITHROMYCIN 500 MG in SODIUM CHLORIDE 0.9% 250 ML IVPB SCH (19:22)
--- NOTE | 2022-06-17 21:32 | ED ---
General Adult HPI - General Chief complaint: Neuro Symptoms/Deficit Stated complaint: Poss Stroke Time Seen by Provider: 06/17/22 13:44 Source: patient, family, EMS, RN notes reviewed, old records reviewed Mode of arrival: EMS Limitations: no limitations - History of Present Illness Initial comments: Patient is a 66-year-old female with past medical history remarkable for prior strokes, CAD, COPD, diabetes, hypertension who presents emergency Department complaining of altered mental status, weakness, as well as increased work of breathing for the last 5 days. Yesterday patient noticed symptoms Somewhat worse. At some mild right-sided facial droop per home health nurse as well as slurred speech. Symptoms started around lunchtime yesterday. She is also having difficulty spoon feeding herself with the right hand. Endorses some increased work of breathing. Denies any chest pain. Does endorse a productive cough. Endorses nonspecific abdominal pain. Denies nausea or vomiting. No lower extremity edema that is worse baseline. No fevers, sick contacts. No other acute complaints at this time. Presents for further evaluation at this ti ca. Is not on blood thinners. Denies falls. - Related Data Home Medications Medication Instructions Recorded Confirmed Montelukast [Singulair] 10 mg PO HS 10/17/20 06/17/22 Aspirin [Adult Low Dose Aspirin EC] 81 mg PO DAILY 04/21/22 06/17/22 Loratadine [Claritin] 10 mg PO DAILY 04/21/22 06/17/22 Magnesium Oxide 400 mg PO DAILY 04/21/22 06/17/22 atenoloL [Tenormin] 50 mg PO BID 04/21/22 06/17/22 Cyclobenzaprine [Flexeril] 5 mg PO BID PRN 06/17/22 06/17/22 HYDROcodone/APAP 7.5-325MG [Franklin 1 tab PO Q6HR PRN 06/17/22 06/17/22 7.5] INSULIN ASPART (NovoLOG) [NovoLOG See Protocol SQ ACHS 06/17/22 06/17/22 (formulary)] Sennosides/Docusate Sodium [Senna 1 tab PO DAILY PRN 06/17/22 06/17/22 Plus 8.6-50 mg Tablet] Previous Rx's Medication Instructions Recorded Gabapentin [Neurontin] 300 mg PO TID cap 04/29/22 Mag Hydrox/Al Hydrox/Simeth 30 ml PO Q4HR PRN ml 04/29/22 [Maalox] bisacodyL [Dulcolax] 10 mg RECTAL DAILY PRN suppositor 04/29/22 Allergies Allergy/AdvReac Type Severity Reaction Status Date / Time Iodinated Contrast Media Allergy Severe Anaphylaxis Verified 06/17/22 16:30 [Iodinated Contrast Media - IV Dye] iodine Allergy Anaphylaxis Verified 06/17/22 16:30 Lynczag-JFX-ZbO Reductase Allergy Anaphylaxis Verified 06/17/22 16:30 Inhibitor [Ctgciww-Yke-Owq Reductase Inhibitor] Review of Systems ROS Statement: Those systems with pertinent positive or pertinent negative responses have been documented in the HPI. Review of Systems: CONST: Denies fever EYES: Denies blurry vision ENT: Denies nasal congestion C/V: Denies Chest pain RESP: Endorses cough GI: Endorses nonspecific abdominal pain : Denies dysuria SKIN: Denies rash. MSK: Denies joint pain. NEURO: Endorses generalized weakness ROS Other: All systems not noted in ROS Statement are negative. Past Medical History Past Medical History: Asthma, Coronary Artery Disease (CAD), COPD, Diabetes Mellitus, Deep Vein Thrombosis (DVT), GERD/Reflux, Hyperlipidemia, Hypertension, Musculoskeletal Disorder, Osteoarthritis (OA), Renal Disease, Sleep Apnea/CPAP/BIPAP Additional Past Medical History / Comment(s): PUD, colitis, benign colon polyps, DVT L leg, migraines, ANDREW - uses cpap. kidney stones, CKD stage II, vertigo, recurrent L ear infections/ruptured eardrum, TMJ, mild CAD, back prob - NT Lt arm, leg. Edema BLE. covid + 01/19/2021 Last Myocardial Infarction Date:: 2009 History of Any Multi-Drug Resistant Organisms: None Reported Past Surgical History: Appendectomy, Cholecystectomy, Ear Surgery, Heart Catheterization, Hysterectomy, Joint Replacement, Orthopedic Surgery, Tonsillectomy Additional Past Surgical History / Comment(s): R/L knee arthroscopies, L ear patch/graft, EGD, colonoscopy/polypectomy, throat abscess. Right knee replacement, back surgery, Past Anesthesia/Blood Transfusion Reactions: Postoperative Nausea & Vomiting (PONV) Past Psychological History: Anxiety Smoking Status: Never smoker Past Alcohol Use History: None Reported Past Drug Use History: None Reported - Past Family History Sister(s) Family Medical History: Cancer Father Family Medical History: Cancer Additional Family Medical History / Comment(s): Throat and brain cancer. Father was an alcoholic. Mother Family Medical History: Liver Disease Additional Family Medical History / Comment(s): Mother is . She was an alcoholic. General Exam - General Exam Comments Initial Comments: General: Appears weak. Audible nasal congestion. HEAD: Normal with no signs of head trauma. EYES: PERRLA, EOMI, conjunctiva normal, no discharge. ENT: Hearing grossly intact, normal oropharynx. RESPIRATORY: Somewhat rhonchorous breath sounds bilaterally. Hypoxia present when sleeping. Likely a component of sleep apnea. C/V: Regular rate and rhythm. S1 and S2 auscultated, no edema, peripheral pulses 2+ and intact throughout ABD: Abdomen is soft, nondistended. Mildly tender to palpation in the epigastric region. No guarding. No peritoneal signs. No rebound tenderness. EXT: Normal range of motion, no obvious deformity SKIN: No rashes or lesions observed on exposed skin. NEURO: Alert and oriented 4. NIH of 2 for right upper extremity weakness as well as for depression the ataxia. Last known well was at baseline 5 days ago, in terms of the ataxia over 24 hours ago. No other focal deficits at this time. Chronic lower extremity weakness from chronic back pain. No bowel or urinary incontinence. No saddle anesthesias. Limitations: no limitations Course Vital Signs 06/17/22 06/17/22 06/17/22 13:39 14:00 15:00 Temperature 97.9 F Pulse Rate 66 69 Respiratory 13 20 Rate Blood Pressure 126/76 O2 Sat by Pulse 94 L 100 Oximetry 06/17/22 06/17/22 16:00 21:20 Temperature Pulse Rate 69 Respiratory 22 Rate Blood Pressure 173/79 106/83 O2 Sat by Pulse 100 Oximetry Medical Decision Making - Medical Decision Making Was pt. sent in by a medical professional or institution (, PA, SHOP DIRECTOR, urgent care, hospital, or penitentiary...) When possible be specific @ -Home health nurse sent the patient in. Did you speak to anyone other than the patient for history (EMS, parent, family, police, friend...)? What history was obtained from this source @ -Yes, patient's daughter. Provided timeline of patient's symptoms. Did you review nursing and triage notes (agree or disagree)? Why? @ -I reviewed and agree with nursing and triage notes Were old charts reviewed (outside hosp., previous admission, EMS record, old EKG, old radiological studies, urgent care reports/EKG's, penitentiary records)? Report findings @ -Yes, prior EKGs, admissions. Differential Diagnosis (chest pain, altered mental status, abdominal pain women, abdominal pain men, vaginal bleeding, weakness, fever, dyspnea, syncope, headache, dizziness, GI bleed, back pain, seizure, CVA, palpatations, mental health)? @ -Differential Altered Mental Status: Hypoglycemia, DKA, hypercapnia, ETOH, overdose, CO poisoning, trauma, myxedema coma, HTN encephalopathy, infection, encephalitis, psychosis, intercranial hemorrhage, hepatic encephalopathy, meningitis, CVA, this is not meant to be an all-inclusive list EKG interpreted by me (3pts min.). @ -As above X-rays interpreted by me (1pt min.). @ -Chest x-ray reveals Possible bilateral infiltrates, radiology reads it is no acute cardiopulmonary process. CT interpreted by me (1pt min.). @ -T brain revealed no evidence of acute intracranial process. CT angiogram of the head and neck revealed no acute significant stenosis or occlusion. CT abdomen and pelvis with contrast revealed no acute intra-abdominal process. There does appear to be possible respiratory infiltrates and bilateral lower lung rowe. U/S interpreted by me (1pt. min.). @ -None done What testing was considered but not performed or refused? (CT, X-rays, U/S, labs)? Why? @ -None What meds were considered but not given or refused? Why? @ -None Did you discuss the management of the patient with other professionals (professionals i.e. , PA, SHOP DIRECTOR, lab, RT, psych nurse, director of social media marketing, milk receiver, teacher, chief knowledge officer, behavioral health case manager)? Give summary @ -No Was smoking cessation discussed for >3mins.? @ -No Was critical care preformed (if so, how long)? @ -No Were there social determinants of health that impacted care today? How? (Homelessness, low income, unemployed, alcoholism, drug addiction, transportation, low edu. Level, literacy, decrease access to med. care, senior care, rehab)? @ -No Was there de-escalation of care discussed even if they declined (Discuss DNR or withdrawal of care, Hospice)? DNR status @ -No What co-morbidities impacted this encounter? (DM, HTN, Smoking, COPD, CAD, Cancer, CVA, ARF, Chemo, Hep., AIDS, mental health diagnosis, sleep apnea, morbid obesity)? @ -COPD, morbid obesity Was patient admitted / discharged? Hospital course, mention meds given and route, prescriptions, significant lab abnormalities, going to OR and other pertinent info. @ -Based on the patient's presentation and physical exam, patient has had neuro symptoms for the last greater than 24 hours. Has had altered mental status for the last 5 days. We'll obtain altered mental status workup. Appears to be having a respiratory illness as well. Vital signs within acceptable limits. NIH is 2 with last known well greater than 24 hours ago. Primary concern is right upper extremity ataxia which appears acute starting yesterday at lunch. Imaging was unremarkable. EKG was unremarkable. Laboratory studies was remarkable for negative troponin, BNP within normal limits. UDS and urinalysis are still pending at this time. Covid, flu, RSV negative. On reevaluation, patient's symptoms remained minimally changed/improved. I did discuss the workup with her. I like to start her on antibiotics at this time. She was in agreement this plan. She'll be given an aspirin 325 mg over concern for possible stroke. She is placed on Rocephin as well as azithromycin. We will restart home medications. I would like to admitted to the hospital for evaluation by neurology. Urinalysis is still pending. There were no agreement this plan. TPA was not administered for this patient as risks far outweigh the benefits his last known well was greater than [address] Chavarria of neurology was consulted. I spoke with the admitting physician, Dr. Lisa who was in agreement with the admission. Patient was admitted in stable condition. Undiagnosed new problem with uncertain prognosis? @ -No Drug Therapy requiring intensive monitoring for toxicity (Heparin, Nitro, Insulin, Cardizem)? @ -No Were any procedures done? @ -No Diagnosis/symptom? @ -Acute neurological deficits the right upper extremity Acute, or Chronic, or Acute on Chronic? @ -Acute Uncomplicated (without systemic symptoms) or Complicated (systemic symptoms)? @ -Uncomplicated Side effects of treatment? @ -No Exacerbation, Progression, or Severe Exacerbation? @ -No Poses a threat to life or bodily function? How? (Chest pain, USA, SD, pneumonia, PE, COPD, DKA, ARF, appy, cholecystitis, CVA, Diverticulitis, Homicidal, Suicidal, threat to staff... and all critical care pts) @ -Yes, could result in significant morbidity and mortality. Diagnosis/symptom? @ -Community acquired pneumonia Acute, or Chronic, or Acute on Chronic? @ -Acute Uncomplicated (without systemic symptoms) or Complicated (systemic symptoms)? @ -Complicated Side effects of treatment? @ -none Exacerbation, Progression, or Severe Exacerbation] @ -no Poses a threat to life or bodily function? @ -Yes. Worsening status could result in significant morbidity or mortality. Diagnosis/symptom? @ -Weakness Acute, or Chronic, or Acute on Chronic? @ -Acute Uncomplicated (without systemic symptoms) or Complicated (systemic symptoms)? @ -Complicated Side effects of treatment? @ -none Exacerbation, Progression, or Severe Exacerbation] @ -no Poses a threat to life or bodily function? @ -no - Lab Data Result diagrams: 06/17/22 13:56 06/17/22 13:56 Lab Results 06/17/22 06/17/22 06/17/22 Range/Units 13:44 13:56 13:56 WBC 5.1 (3.8-10.6) k/uL RBC 3.74 L (3.80-5.40) m/uL Hgb 12.0 (11.4-16.0) gm/dL Hct 34.4 (34.0-46.0) % MCV 92.1 D (80.0-100.0) fL MCH 32.1 (25.0-35.0) pg MCHC 34.9 (31.0-37.0) g/dL RDW 14.8 (11.5-15.5) % Plt Count 194 (150-450) k/uL MPV 8.7 Neutrophils % 53 % Lymphocytes % 33 % Monocytes % 6 % Eosinophils % 5 % Basophils % 1 % Neutrophils # 2.7 (1.3-7.7) k/uL Lymphocytes # 1.7 (1.0-4.8) k/uL Monocytes # 0.3 (0-1.0) k/uL Eosinophils # 0.3 (0-0.7) k/uL Basophils # 0.0 (0-0.2) k/uL Poikilocytosis Slight PT (9.0-12.0) sec INR (<1.2) APTT (22.0-30.0) sec Sodium 141 (137-145) mmol/L Potassium 3.8 (3.5-5.1) mmol/L Chloride 109 H (98-107) mmol/L Carbon Dioxide 26 (22-30) mmol/L Anion Gap 6 mmol/L BUN 17 (7-17) mg/dL Creatinine 0.75 (0.52-1.04) mg/dL Est GFR (CKD-EPI)AfAm >90 (>60 ml/min/1.73 sqM) Est GFR (CKD-EPI)NonAf 83 (>60 ml/min/1.73 sqM) Glucose 91 (74-99) mg/dL POC Glucose (mg/dL) 103 (70-110) mg/dL POC Glu Picking Tech ID [place], [place] Plasma Lactic Acid Woody (0.7-2.0) mmol/L Calcium 8.7 (8.4-10.2) mg/dL Total Bilirubin 0.9 (0.2-1.3) mg/dL AST 21 (14-36) U/L ALT 18 (4-34) U/L Alkaline Phosphatase 80 (38-126) U/L Ammonia (<30) umol/L Troponin I (0.000-0.034) ng/mL NT-Pro-B Natriuret Pep pg/mL Total Protein 5.8 L (6.3-8.2) g/dL Albumin 3.4 L (3.5-5.0) g/dL Serum Alcohol <10 mg/dL Influenza Type A (PCR) (Not Detectd) Influenza Type B (PCR) (Not Detectd) RSV (PCR) (Not Detectd) SARS-CoV-2 (PCR) (Not Detectd) 06/17/22 06/17/22 06/17/22 Range/Units 13:56 14:04 14:04 WBC (3.8-10.6) k/uL RBC (3.80-5.40) m/uL Hgb (11.4-16.0) gm/dL Hct (34.0-46.0) % MCV (80.0-100.0) fL MCH (25.0-35.0) pg MCHC (31.0-37.0) g/dL RDW (11.5-15.5) % Plt Count (150-450) k/uL MPV Neutrophils % % Lymphocytes % % Monocytes % % Eosinophils % % Basophils % % Neutrophils # (1.3-7.7) k/uL Lymphocytes # (1.0-4.8) k/uL Monocytes # (0-1.0) k/uL Eosinophils # (0-0.7) k/uL Basophils # (0-0.2) k/uL Poikilocytosis PT 10.9 (9.0-12.0) sec INR 1.0 (<1.2) APTT 25.4 (22.0-30.0) sec Sodium (137-145) mmol/L Potassium (3.5-5.1) mmol/L Chloride (98-107) mmol/L Carbon Dioxide (22-30) mmol/L Anion Gap mmol/L BUN (7-17) mg/dL Creatinine (0.52-1.04) mg/dL Est GFR (CKD-EPI)AfAm (>60 ml/min/1.73 sqM) Est GFR (CKD-EPI)NonAf (>60 ml/min/1.73 sqM) Glucose (74-99) mg/dL POC Glucose (mg/dL) (70-110) mg/dL POC Glu Picking Tech ID Plasma Lactic Acid Woody 1.4 (0.7-2.0) mmol/L Calcium (8.4-10.2) mg/dL Total Bilirubin (0.2-1.3) mg/dL AST (14-36) U/L ALT (4-34) U/L Alkaline Phosphatase (38-126) U/L Ammonia <9 (<30) umol/L Troponin I (0.000-0.034) ng/mL NT-Pro-B Natriuret Pep 187 pg/mL Total Protein (6.3-8.2) g/dL Albumin (3.5-5.0) g/dL Serum Alcohol mg/dL Influenza Type A (PCR) (Not Detectd) Influenza Type B (PCR) (Not Detectd) RSV (PCR) (Not Detectd) SARS-CoV-2 (PCR) (Not Detectd) 06/17/22 06/17/22 Range/Units 14:04 14:24 WBC (3.8-10.6) k/uL RBC (3.80-5.40) m/uL Hgb (11.4-16.0) gm/dL Hct (34.0-46.0) % MCV (80.0-100.0) fL MCH (25.0-35.0) pg MCHC (31.0-37.0) g/dL RDW (11.5-15.5) % Plt Count (150-450) k/uL MPV Neutrophils % % Lymphocytes % % Monocytes % % Eosinophils % % Basophils % % Neutrophils # (1.3-7.7) k/uL Lymphocytes # (1.0-4.8) k/uL Monocytes # (0-1.0) k/uL Eosinophils # (0-0.7) k/uL Basophils # (0-0.2) k/uL Poikilocytosis PT (9.0-12.0) sec INR (<1.2) APTT (22.0-30.0) sec Sodium (137-145) mmol/L Potassium (3.5-5.1) mmol/L Chloride (98-107) mmol/L Carbon Dioxide (22-30) mmol/L Anion Gap mmol/L BUN (7-17) mg/dL Creatinine (0.52-1.04) mg/dL Est GFR (CKD-EPI)AfAm (>60 ml/min/1.73 sqM) Est GFR (CKD-EPI)NonAf (>60 ml/min/1.73 sqM) Glucose (74-99) mg/dL POC Glucose (mg/dL) (70-110) mg/dL POC Glu Picking Tech ID Plasma Lactic Acid Woody (0.7-2.0) mmol/L Calcium (8.4-10.2) mg/dL Total Bilirubin (0.2-1.3) mg/dL AST (14-36) U/L ALT (4-34) U/L Alkaline Phosphatase (38-126) U/L Ammonia (<30) umol/L Troponin I <0.012 (0.000-0.034) ng/mL NT-Pro-B Natriuret Pep pg/mL Total Protein (6.3-8.2) g/dL Albumin (3.5-5.0) g/dL Serum Alcohol mg/dL Influenza Type A (PCR) Not Detected (Not Detectd) Influenza Type B (PCR) Not Detected (Not Detectd) RSV (PCR) Not Detected (Not Detectd) SARS-CoV-2 (PCR) Not Detected (Not Detectd) - EKG Data -: EKG Interpreted by Me EKG Comments: 12-lead Electrocardiogram Interpretation Note EKG was reviewed and interpreted by myself. 12-lead ECG performed at 1340 is interpreted by me as revealing normal sinus rhythm at a rate of 66 beats per minute. Left axis deviation. UT interval is 145 ms, QRS duration is 110 ms, QTc is 423 ms.. There were no ST or T wave abnormalities to suggest myocardial ischemia or injury. R wave progression across the precordium was satisfactory. By my interpretation this EKG is non-diagnostic for acute ischemia. No significant change when compared with EKG from April 2022. Disposition Clinical Impression: Neurological deficit present, Weakness, Community acquired pneumonia, Altered mental status Disposition: ADMITTED IP TO THIS HOSP Condition: Stable Time of Disposition: 17:15
[2022-06-17] MEDS: atenoloL 50 MG TAB PO SCH (21:51)
[2022-06-17] MEDS: GABAPENTIN 300 MG CAP PO SCH (21:52)
[2022-06-17] MEDS: MONTELUKAST 10 MG TAB PO SCH (21:52)
[2022-06-17] MEDS: HYDROcodone/APAP 7.5-325MG 1 EACH TAB PO PRN (21:52)
[2022-06-18] MEDS: HEPARIN SODIUM,PORCINE/PF 5,000 UNIT/0.5 ML SYRINGE SQ SCH ×3 (00:06→17:20)
[2022-06-18] MEDS ORDERED: DEXAMETHASONE SOD PHOSPHATE 10 MG/ML 1 ML VIAL IVP STA (00:58)
[2022-06-18] MEDS ORDERED: RACEPINEPHRINE 2.25% NEB 0.5 ML NEBU INHALATION STA (00:58)
[2022-06-18 01:22] LABS: ABG Base Excess -1.2 mmol/L; ABG HCO3 27 mmol/L (21-25); ABG Oxygen Saturation 96.5 % (94-97); ABG PCO2 69 mmHg (35-45); ABG PO2 91 mmHg (83-108); ABG TCO2 29 mmol/L (19-24); Allen Test Performed? Yes
[2022-06-18] MEDS ORDERED: NALOXONE 0.4 MG/ML 1 ML VIAL IV PRN (01:39)
[2022-06-18] MEDS ORDERED: ETOMIDATE 2 MG/ML 10 ML VIAL IVP STA (01:45)
--- NOTE | 2022-06-18 01:45 | XR ---
EXAMINATION TYPE: XR chest 1V portable DATE OF EXAM: 06/18/2022 COMPARISON: Yesterday HISTORY: Short of breath TECHNIQUE: FINDINGS: There is pulmonary vascular congestion. There is poor inspiration. There is mild elevation of the right diaphragm. There are chest leads. IMPRESSION: There is some pulmonary interstitial edema and poor inspiration which is a change compare d to the old exam and could be acute heart failure.
[2022-06-18] MEDS ORDERED: SUCCINYLCHOLINE CHLORIDE 200 MG/10 ML VIAL IV STA (02:22)
[2022-06-18 02:24] LABS: ABG Base Excess -0.8 mmol/L; ABG HCO3 25 mmol/L (21-25); ABG PCO2 47 mmHg (35-45); ABG PH 7.33 (7.35-7.45); ABG PO2 286 mmHg (83-108); ABG TCO2 27 mmol/L (19-24); Allen Test Performed? Yes
[2022-06-18 02:40] LABS: Glucose,Whole Blood 291 mg/dL (70-110)
--- NOTE | 2022-06-18 03:00 | XR ---
EXAMINATION TYPE: XR chest 1V portable DATE OF EXAM: 06/18/2022 COMPARISON: 06/18/2022 HISTORY: Check tube placement TECHNIQUE: FINDINGS: The endotracheal tube is 3.5 cm from the evelyn. There is some mild pulmonary interstitial edema. There is more noticeable pulmonary interstitial and airspace density in the left lower lobe. T here are chest leads. There are no hilar masses. Mediastinum is normal. IMPRESSION: Endotracheal tube in good position. There is improvement in the pulmonary airspace edema compared to exam one hour ago.
--- NOTE | 2022-06-18 03:35 | XR ---
EXAMINATION TYPE: XR chest 1V portable DATE OF EXAM: 06/18/2022 COMPARISON: NONE HISTORY: Tube placement TECHNIQUE: 2 views FINDINGS: Endotracheal tube is 2.5 cm from the evelyn. There is nasogastric tube in the stomach. There is some minimal infiltrate atelectasis left lung base. There are chest leads. Bony thorax is in tact. IMPRESSION: Interstitial and airspace infiltrate in the left lower lobe without change. No obvious he art failure. Endotracheal tube in good position.
--- NOTE | 2022-06-18 04:14 | P.EN ---
A- team: Indication: Altered mental status, shortness of breath Arrived on Scene to find: Patient with hypoxia and apneic episodes Vital signs reviewed: BP 168/105, pulse 83, SpO2 95% on 4 L nasal cannula oxygen Patient seen and examined at bedside. Patient with upper airway compromise, waxing and waning levels of consciousness, with apneic episodes. General: Lethargic appearing female, mild to moderate respiratory distress, [appears at stated age] Derm: [warm], [dry] Head: [atraumatic], [normocephalic], [symmetric] Eyes: [EOMI], [no lid lag], [anicteric sclera] Mouth: [no lip lesion], [mucus membranes moist] Cardiovascular: [S1S2 reg], [no murmur], [positive posterior tibial pulse bilateral], Lungs: [CTA bilateral], [no rhonchi, no rales] , [no accessory muscle use] Abdominal: [soft], [ nontender to palpation], [no guarding], [no appreciable organomegaly] Ext: [no gross muscle atrophy], [no edema], [no contractures] Neuro: [no focal neuro deficits], patient moving all extremities, Psych: Lethargic, not answering any questions, although following directions Assessment: Upper airway compromise with altered mentation and respiratory distress, unclear etiology -Low suspicion for angioedema -Although patient was maintaining her SpO2, she continued to have upper airway collapse causing stridor -ABG revealed mild hypercapnea with CXR with possible CHF -Code stroke was initially activated due to concerns for central apnea -Case was discussed in detail with neuro pelletizer tender on-call who recommended that this was unlikely to be an acute CVA -Case subsequently discussed with pelletizer tender who was in agreement with intubating the patient if needed for airway protection Plan: The patient was subsequently intubated by the ED provider and transferred to the ICU Primary team was notified Disposition: Transferred to medical ICU A Total of 45 minutes of critical care time was spent on the complex care of this patient.
[2022-06-18 04:16] LABS: Chloride 108 mmol/L (98-107)
[2022-06-18 04:17] LABS: African American GFR (CKD) >90 (>60 ml/min/1.73 sqM); Anion Gap 7 mmol/L; Blood Urea Nitrogen 21 mg/dL (7-17); Calcium 8.6 mg/dL (8.4-10.2); Carbon Dioxide 24 mmol/L (22-30); Glucose 264 mg/dL (74-99); Magnesium 1.8 mg/dL (1.6-2.3); Non-African American GFR(CKD) 83 (>60 ml/min/1.73 sqM); Potassium 4.8 mmol/L (3.5-5.1); Sodium 139 mmol/L (137-145)
[2022-06-18 04:38] LABS: Appearance,Urine Clear (Clear); Bacteria,Urine Rare /hpf; Bilirubin,Urine Negative (Negative); Blood,Urine Negative (Negative); Color,Urine Yellow; Glucose,Urine (UA) 2+ (Negative); Hyaline Casts,Urine 1 /lpf (0-2); Leukocyte Esterase,Urine Negative (Negative); Mucus,Urine Few /hpf; Nitrite,Urine Negative (Negative); PH, Urine 5.5 (5.0-8.0); Protein,Urine 1+ (Negative); RBC,Urine 2 /hpf (0-5); Squamous Epithelial Cell,Urine <1 /hpf (0-4); Urobilinogen,Urine <2.0 mg/dL (<2.0); WBC,Urine 1 /hpf (0-5)
[2022-06-18 04:40] LABS: Amphetamine Screen,Urine Not Detected (NotDetected); Barbiturate Screen,Urine Not Detected (NotDetected); Benzodiazepines Screen,Urine Detected (NotDetected); Cocaine Screen,Urine Not Detected (NotDetected); Methadone Screen, Urine Not Detected (NotDetected); Opiate Screen,Urine Detected (NotDetected); Oxycodone Screen, Urine Not Detected (NotDetected); Phencyclidine Screen,Urine Not Detected (NotDetected); Tricyclic Antidepressant,Urine Detected (NotDetected); Urn Cannabinoid Scrn Not Detected (NotDetected)
[2022-06-18 04:44] LABS: Basophils % (A) 0 %; Eosinophils % (A) 0 %; HCT 33.7 % (34.0-46.0); HGB 11.2 gm/dL (11.4-16.0); Hypochromasia Slight; Lymphocytes # (A) 0.7 k/uL (1.0-4.8); Lymphocytes % (A) 13 %; MCH 30.9 pg (25.0-35.0); MCHC 33.1 g/dL (31.0-37.0); MCV 93.2 fL (80.0-100.0); Mean Platelet Volume 8.9; Monocytes # (A) 0.1 k/uL (0-1.0); Monocytes % (A) 2 %; Neutrophils # (A) 4.3 k/uL (1.3-7.7); Neutrophils % (A) 84 %; Platelet Count 224 k/uL (150-450); Poikilocytosis Slight; RBC 3.61 m/uL (3.80-5.40); RDW 14.7 % (11.5-15.5); WBC 5.1 k/uL (3.8-10.6)
[2022-06-18 06:23] LABS: Glucose,Whole Blood 265 mg/dL (70-110)
[2022-06-18 06:45] LABS: Specific Gravity,Urine >1.050 (1.001-1.035)
[2022-06-18 06:48] LABS: Ketones,Urine 2+ (Negative)
[2022-06-18 07:29] LABS: Glucose,Whole Blood 262 mg/dL (70-110)
--- NOTE | 2022-06-18 07:40 | P.CNPUL ---
History of Present Illness Consult date: 06/18/22 Reason for consult: dyspnea History of present illness: 66-year-old female patient who came into the emergency department yesterday because of altered mental status. The patient was also having shortness of breath for the past 5 days. Apparently, her symptoms got worse on the day of admission. The patient had mild right sided facial droop per home health nurse as well as slurred speech. Symptoms started at around noon yesterday. She also had difficulties in feeding herself and she was unable to use her right hand. Based on that, the patient was brought into the emergency department. In the ED, her mentation was altered and she had an NIH of 2 and her last known mental status assessment was more than 24 hours ago. Her cardiac rhythm was sinus. Her labs are unremarkable. Urine drug screen was positive for opiates and benzodiazepines. Her Covid 19 testing flu and RSV were negative. At that point, a CAT scan of the brain was done and it showed no acute abnormalities. This was discussed with neurology after the CT angiogram. The CT angiogram showed no evidence of any dissection or any high-grade stenosis within the bra in. There was some multifocal patchy airspace opacity throughout the lungs as noted in the CT angiogram. The case was discussed with neurology. The patient was not found to be a candidate for TPA administration. While in the emergency, the patient's stroke was evaluated by our nursing staff. She was apparently following simple commands. Nevertheless, her rest or status was worse and she was having more labored breathing and air and she was quite limited bilaterally. At that point, a blood gas was done that showed a pH of 7.19 with a pCO2 of 69 and pO2 of 91. There was a concern that the patient was unable to protect her airways and for that reason the, the patient was intubated and placed on a mechanical ventilator. Post intubation chest x-ray shows adequate positioning of the orotracheal tube. The patient has also and orogastric tube in place. No significant airspace disease or opacities seen on the chest x-ray. The lung volumes are essentially small. Some limited bibasilar pulmonary infiltrates cannot be completely excluded. This morning, the patient is on propofol at 20 mg/kg/m pH is calm and comfortable and hemodynamically stable. She is on assist-control mode of mechanical ventilation at the rate of 18 with a tidal volume of 350 and FiO2 of 50% with a PEEP of 5. Most recent blood gas from this morning shows a a pH of 7.33 with a pCO2 of 47 and pO2 of 286 and this was done on FiO2 of 100% post intubation. Rest of the labs that essentially within normal limits. Her UA was positive for glucose, +2 ketones and negative for infection. Her proBNP level was 187. Troponins were all negative. WBC count was at 5.1 with a hemoglobin of 11.2. Currently on IV fluids at 20 mL an hour. Pete catheter is in place. An output is adequate.the patient also has a history of L2-L4 spondylosis with stenosis; left large any weakness; low back pain. At this point patient has failed conservative treatment measures and has opted to proceed with a elective L2-3 and L3-4 posteriolateral and interbody fusion; L2-3 and L3-4 bilateral laminectomy, complete facetectomy and foraminotomy. She has other comorbidities including coronary artery disease, diabetes mellitus, previous history of CVA which was not seen on the CAT scan of the brain, COPD, obstructive sleep apnea/asthma, previous history of DVTs and osteoarthritis. She was also infected with Covid 19 back in . Review of Systems ROS unobtainable: due to endotracheal tube Past Medical History Past Medical History: Asthma, Coronary Artery Disease (CAD), COPD, Diabetes Mellitus, Deep Vein Thrombosis (DVT), GERD/Reflux, Hyperlipidemia, Hypertension, Musculoskeletal Disorder, Osteoarthritis (OA), Renal Disease, Sleep Apnea/CPAP/BIPAP Additional Past Medical History / Comment(s): PUD, colitis, benign colon polyps, DVT L leg, migraines, ANDREW - uses cpap. kidney stones, CKD stage II, vertigo, recurrent L ear infections/ruptured eardrum, TMJ, mild CAD, back prob - NT Lt arm, leg. Edema BLE. covid + 01/19/2021 Last Myocardial Infarction Date:: 2009 History of Any Multi-Drug Resistant Organisms: None Reported Past Surgical History: Appendectomy, Cholecystectomy, Ear Surgery, Heart Catheterization, Hysterectomy, Joint Replacement, Orthopedic Surgery, Tonsillectomy Additional Past Surgical History / Comment(s): R/L knee arthroscopies, L ear patch/graft, EGD, colonoscopy/polypectomy, throat abscess. Right knee replacement, back surgery, Past Anesthesia/Blood Transfusion Reactions: Postoperative Nausea & Vomiting (PONV) Past Psychological History: Anxiety Smoking Status: Never smoker Past Alcohol Use History: None Reported Past Drug Use History: None Reported - Past Family History Sister(s) Family Medical History: Cancer Father Family Medical History: Cancer Additional Family Medical History / Comment(s): Throat and brain cancer. Father was an alcoholic. Mother Family Medical History: Liver Disease Additional Family Medical History / Comment(s): Mother is . She was an alcoholic. Medications and Allergies Home Medications Medication Instructions Recorded Confirmed Type Montelukast [Singulair] 10 mg PO HS 10/17/20 06/17/22 History Aspirin [Adult Low Dose Aspirin EC] 81 mg PO DAILY 04/21/22 06/17/22 History Loratadine [Claritin] 10 mg PO DAILY 04/21/22 06/17/22 History Magnesium Oxide 400 mg PO DAILY 04/21/22 06/17/22 History atenoloL [Tenormin] 50 mg PO BID 04/21/22 06/17/22 History Gabapentin [Neurontin] 300 mg PO TID cap 04/29/22 06/17/22 Rx Mag Hydrox/Al Hydrox/Simeth 30 ml PO Q4HR PRN ml 04/29/22 06/17/22 Rx [Maalox] bisacodyL [Dulcolax] 10 mg RECTAL DAILY PRN suppositor 04/29/22 06/17/22 Rx Cyclobenzaprine [Flexeril] 5 mg PO BID PRN 06/17/22 06/17/22 History HYDROcodone/APAP 7.5-325MG [[place] 1 tab PO Q6HR PRN 06/17/22 06/17/22 History 7.5] INSULIN ASPART (NovoLOG) [NovoLOG See Protocol SQ ACHS 06/17/22 06/17/22 History (formulary)] Sennosides/Docusate Sodium [Senna 1 tab PO DAILY PRN 06/17/22 06/17/22 History Plus 8.6-50 mg Tablet] Allergies Allergy/AdvReac Type Severity Reaction Status Date / Time Iodinated Contrast Media Allergy Severe Anaphylaxis Verified 06/17/22 16:30 [Iodinated Contrast Media - IV Dye] iodine Allergy Anaphylaxis Verified 06/17/22 16:30 [id number]-[id number] Reductase Allergy Anaphylaxis Verified 06/17/22 16:30 Inhibitor [Wgtbwzq-Ypw-Rfb Reductase Inhibitor] Physical Exam Vitals: Vital Signs Temp Pulse Resp BP Pulse Ox FiO2 06/18/22 06:00 55 L 16 106/58 93 L 06/18/22 05:00 57 L 16 108/58 93 L 06/18/22 04:00 59 L 16 113/60 93 L 50 06/18/22 03:13 50 06/18/22 03:00 97.8 F 62 16 152/83 94 L 50 06/18/22 01:43 100 06/18/22 01:00 78 10 L 110/55 85 L 06/17/22 21:20 74 106/83 95 06/17/22 16:00 69 22 173/79 100 06/17/22 15:00 69 20 100 06/17/22 14:00 97.9 F 06/17/22 13:39 66 13 126/76 94 L Intake and Output 06/17/22 06/18/22 06/18/22 22:59 06:59 14:59 Intake Total 28.287 Output Total 217 Balance -188.713 Intake: IV 20 0.9 @ KVO 20 Intake, IV Titration 8.287 Amount propofoL 1,000 mg In 8.287 Empty Bag 1 bag @ 15 MCG/ KG/MIN 8.287 mls/hr IV . Q12H5M [facility] Rx#:[id number] Output: Urine 217 Other: Voiding Method Indwelling Catheter Gen. appearance the patient is calm and comfortable and she is currently adequately sedated, intubated on a mechanical ventilator with an orotracheal and orogastric tube being both in place. No tachycardia. She is quite successful mechanical ventilator at this point in time. Head exam was generally normal. There was no scleral icterus or corneal arcus. Mucous membranes were moist. Neck was supple and without jugular venous distension, thyromegaly, or carotid bruits. Carotids were easily palpable bilaterally. There was no adenopathy. Lungs were clear to auscultation and percussion, and with normal diaphragmatic excursion. No wheezes or rales were noted. Cardiac exam revealed the PMI to be normally situated and sized. The rhythm was regular and no extrasystoles were noted during several minutes of auscultation. The first and second heart sounds were normal and physiologic splitting of the second heart sound was noted. There were no murmurs, rubs, clicks, or gallops. Abdominal exam revealed normal bowel sounds. The abdomen was soft, non-tender, and without masses, organomegaly, or appreciable enlargement of the abdominal a christina. Examination of the extremities revealed easily palpable radial, femoral and pedal pulses. There was no cyanosis, clubbing or edema. Examination of the skin revealed no evidence of significant rashes, suspicious appearing nevi or other concerning lesions. Neurologically the patient is sedated. No seizure activity has been noted. Pupils are equal and reactive to light. No facial asymmetry. She grimaces to deep painful stimulation. Sensory and motor functions cannot be adequately assessed. There is a positive cough and a gag reflex at this point in time. No facial asymmetry. Results - Laboratory Findings CBC and BMP: 06/18/22 03:33 06/18/22 03:33 ABG WBC 5.1 k/uL (3.8-10.6) 06/18/22 03:33 RBC 3.61 m/uL (3.80-5.40) L 06/18/22 03:33 Hgb 11.2 gm/dL (11.4-16.0) L 06/18/22 03:33 Hct 33.7 % (34.0-46.0) L 06/18/22 03:33 MCV 93.2 fL (80.0-100.0) 06/18/22 03:33 MCH 30.9 pg (25.0-35.0) 06/18/22 03:33 MCHC 33.1 g/dL (31.0-37.0) 06/18/22 03:33 RDW 14.7 % (11.5-15.5) 06/18/22 03:33 Plt Count 224 k/uL (150-450) 06/18/22 03: MPV 8.9 06/18/22 03:33 Neutrophils % 84 % 06/18/22 03:33 Lymphocytes % 13 % 06/18/22 03:33 Monocytes % 2 % 06/18/22 03:33 Eosinophils % 0 % 06/18/22 03:33 Basophils % 0 % 06/18/22 03:33 Neutrophils # 4.3 k/uL (1.3-7.7) 06/18/22 03:33 Lymphocytes # 0.7 k/uL (1.0-4.8) L 06/18/22 03:33 Monocytes # 0.1 k/uL (0-1.0) 06/18/22 03:33 Eosinophils # 0.0 k/uL (0-0.7) 06/18/22 03:33 Basophils # 0.0 k/uL (0-0.2) 06/18/22 03:33 Hypochromasia Slight 06/18/22 03:33 Poikilocytosis Slight 06/18/22 03:33 PT 10.9 sec (9.0-12.0) 06/17/22 14:04 INR 1.0 (<1.2) 06/17/22 14:04 APTT 25.4 sec (22.0-30.0) 06/17/22 14:04 Sample Site Left Brachial 06/18/22 02:20 ABG pH 7.33 (7.35-7.45) L 06/18/22 02:20 ABG pCO2 47 mmHg (35-45) H 06/18/22 02:20 ABG pO2 286 mmHg (83-108) H 06/18/22 02:20 ABG HCO3 25 mmol/L (21-25) 06/18/22 02:20 ABG Total CO2 27 mmol/L (19-24) H 06/18/22 02:20 ABG O2 Saturation 100.0 % (94-97) H 06/18/22 02:20 ABG Base Excess -0.8 mmol/L 06/18/22 02:20 Jonnathan Test Yes 06/18/22 02:20 FiO2 100 % 06/18/22 02:20 Sodium 139 mmol/L (137-145) 06/18/22 03:33 Potassium 4.8 mmol/L (3.5-5.1) 06/18/22 03:33 Chloride 108 mmol/L (98-107) H 06/18/22 03:33 Carbon Dioxide 24 mmol/L (22-30) 06/18/22 03:33 Anion Gap 7 mmol/L 06/18/22 03:33 BUN 21 mg/dL (7-17) H 06/18/22 03:33 Creatinine 0.76 mg/dL (0.52-1.04) 06/18/22 03:33 Est GFR (CKD-EPI)AfAm >90 (>60 ml/min/1.73 sqM) 06/18/22 03:33 Est GFR (CKD-EPI)NonAf 83 (>60 ml/min/1.73 sqM) 06/18/22 03:33 Glucose 264 mg/dL (74-99) H 06/18/22 03:33 POC Glucose (mg/dL) 265 mg/dL (70-110) H 06/18/22 06:21 POC Glu Health Data Analyst MARGUERITE Melchor Renteria 06/18/22 06:[address] Glu mg/dL 151 06/17/22 18:00 Hemoglobin A1c 6.9 % (0.0-6.0) H 06/17/22 18:00 Plasma Lactic Acid Woody 1.4 mmol/L (0.7-2.0) 06/17/22 14:04 Calcium 8.6 mg/dL (8.4-10.2) 06/18/22 03:33 Magnesium 1.8 mg/dL (1.6-2.3) 06/18/22 03:33 Total Bilirubin 0.9 mg/dL (0.2-1.3) 06/17/22 13:56 AST 21 U/L (14-36) 06/17/22 13:56 ALT 18 U/L (4-34) 06/17/22 13:56 Alkaline Phosphatase 80 U/L (38-126) 06/17/22 13:56 Ammonia <9 umol/L (<30) 06/17/22 14:04 Troponin I <0.012 ng/mL (0.000-0.034) 06/17/22 20:32 NT-Pro-B Natriuret Pep 187 pg/mL 06/17/22 13:56 Total Protein 5.8 g/dL (6.3-8.2) L 06/17/22 13:56 Albumin 3.4 g/dL (3.5-5.0) L 06/17/22 13:56 Urine Color Yellow 06/18/22 03:50 Urine Appearance Clear (Clear) 06/18/22 03:50 Urine pH 5.5 (5.0-8.0) 06/18/22 03:50 Ur Specific [place] >1.050 (1.001-1.035) H 06/18/22 03:50 Urine Protein 1+ (Negative) H 06/18/22 03:50 Urine Glucose (UA) 2+ (Negative) H 06/18/22 03:50 Urine Ketones 2+ (Negative) H 06/18/22 03:50 Urine Blood Negative (Negative) 06/18/22 03:50 Urine Nitrite Negative (Negative) 06/18/22 03:50 Urine Bilirubin Negative (Negative) 06/18/22 03:50 Urine Urobilinogen <2.0 mg/dL (<2.0) 06/18/22 03:50 Ur Leukocyte Esterase Negative (Negative) 06/18/22 03:50 Urine RBC 2 /hpf (0-5) 06/18/22 03:50 Urine WBC 1 /hpf (0-5) 06/18/22 03:50 Ur Squamous Epith Cells <1 /hpf (0-4) 06/18/22 03:50 Urine Bacteria Rare /hpf (None) H 06/18/22 03:50 Hyaline Casts 1 /lpf (0-2) 06/18/22 03:50 Urine Mucus Few /hpf (None) H 06/18/22 03:50 Urine Opiates Screen Detected (NotDetected) H 06/18/22 03:50 Ur Oxycodone Screen Not Detected (NotDetected) 06/18/22 03:50 Urine Methadone Screen Not Detected (NotDetected) 06/18/22 03:50 Ur Propoxyphene Screen Not Detected (NotDetected) 06/18/22 03:50 Ur Barbiturates Screen Not Detected (NotDetected) 06/18/22 03:50 U Tricyclic Antidepress Detected (NotDetected) H 06/18/22 03:50 Ur Phencyclidine Scrn Not Detected (NotDetected) 06/18/22 03:50 Ur Amphetamines Screen Not Detected (NotDetected) 06/18/22 03:50 U Methamphetamines Scrn Not Detected (NotDetected) 06/18/22 03:50 U Benzodiazepines Scrn Detected (NotDetected) H 06/18/22 03:50 Urine Cocaine Screen Not Detected (NotDetected) 06/18/22 03:50 U Marijuana (THC) Screen Not Detected (NotDetected) 06/18/22 03:50 Serum Alcohol <10 mg/dL 06/17/22 13:56 Influenza Type A (PCR) Not Detected (Not Detectd) 06/17/22 14:24 Influenza Type B (PCR) Not Detected (Not Detectd) 06/17/22 14:24 RSV (PCR) Not Detected (Not Detectd) 06/17/22 14:24 SARS-CoV-2 (PCR) Not Detected (Not Detectd) 06/17/22 14:24 PT/INR, D-dimer PT 10.9 sec (9.0-12.0) 06/17/22 14:04 INR 1.0 (<1.2) 06/17/22 14:04 Abnormal lab findings: Abnormal Labs 06/17/22 06/17/22 06/17/22 13:56 13:56 18:00 RBC 3.74 L Hgb Hct Lymphocytes # ABG pH ABG pCO2 ABG pO2 ABG HCO3 ABG Total CO2 ABG O2 Saturation Chloride 109 H BUN Glucose POC Glucose (mg/dL) Hemoglobin A1c 6.9 H Total Protein 5.8 L Albumin 3.4 L Ur Specific [place] Urine Protein Urine Glucose (UA) Urine Ketones Urine Bacteria Urine Mucus Urine Opiates Screen U Tricyclic Antidepress U Benzodiazepines Scrn 06/18/22 06/18/22 06/18/22 01:18 02:20 02:38 RBC Hgb Hct Lymphocytes # ABG pH 7.20 L 7.33 L ABG pCO2 69 H 47 H ABG pO2 286 H ABG HCO3 27 H ABG Total CO2 29 H 27 H ABG O2 Saturation 100.0 H Chloride BUN Glucose POC Glucose (mg/dL) 291 H Hemoglobin A1c Total Protein Albumin Ur Specific [place] Urine Protein Urine Glucose (UA) Urine Ketones Urine Bacteria Urine Mucus Urine Opiates Screen U Tricyclic Antidepress U Benzodiazepines Scrn 06/18/22 06/18/22 06/18/22 03:33 03:33 03:50 RBC 3.61 L Hgb 11.2 L Hct 33.7 L Lymphocytes # 0.7 L ABG pH ABG pCO2 ABG pO2 ABG HCO3 ABG Total CO2 ABG O2 Saturation Chloride 108 H BUN 21 H Glucose 264 H POC Glucose (mg/dL) Hemoglobin A1c Total Protein Albumin Ur Specific [place] >1.050 H Urine Protein 1+ H Urine Glucose (UA) 2+ H Urine Ketones 2+ H Urine Bacteria Rare H Urine Mucus Few H Urine Opiates Screen Detected H U Tricyclic Antidepress Detected H U Benzodiazepines Scrn Detected H 06/18/22 06:21 RBC Hgb Hct Lymphocytes # ABG pH ABG pCO2 ABG pO2 ABG HCO3 ABG Total CO2 ABG O2 Saturation Chloride BUN Glucose POC Glucose (mg/dL) 265 H Hemoglobin A1c Total Protein Albumin Ur Specific [place] Urine Protein Urine Glucose (UA) Urine Ketones Urine Bacteria Urine Mucus Urine Opiates Screen U Tricyclic Antidepress U Benzodiazepines Scrn - Diagnostic Findings Chest x-ray: image reviewed Assessment and Plan Plan: Altered mental status, under investigation. The exact cause is not clear. There was concern that the patient may have had a stroke as there was description of a facial droop and right arm weakness. Nevertheless, the exact timing was not accurately documented and the patient had a CAT scan of the brain and a CT angiogram that were negative and the patient did not receive any thrombolytics. Possibility of hypercapnic respiratory failure and CO2 narcosis need to be considered especially with a history of obstructive sleep apnea and narcotic intake. Her blood gas was consistent with acute respiratory acidosis in the emergency department. Currently intubated on a mechanical ventilator. Intubation was done to protect her airways Acute hypoxic/hypercapnic respiratory failure, currently intubated on mechanical ventilator. History of obstructive sleep apnea History of lumbar spine surgery with multilevel fusion performed in April 2022 maintained on narcotics on outpatient basis and the patient was receiving [place] 7.5 and her urine drug screen is positive for opiates and benzodiazepines. Diabetes mellitus COPD Previous history of CVA Severe degenerative arthritis and chronic back pain Obesity Coronary artery disease Previous history of DVT Hyperlipidemia Hypertension Colonic polyps Previous history of Covid 19 infection back in Plan Continue ventilator support, no changes IV fluids with normal saline at rate of 75 mL an hour Give the patient has sedation holiday and assess the mental status Repeat a 24-hour CAT scan of the brain Obtain a neurology consultation Avoid narcotic medications for now Continue empiric Antibiotic coverage although there is no clear indication for an underlying pneumonia Heparin subcu portably prophylaxis Resume all medication including a NovoLog size, coverage We'll continue to follow Time with Patient: Greater than 30
[2022-06-18] MEDS: PANTOPRAZOLE 40 MG/10 ML VIAL IVP SCH (08:34)
[2022-06-18] MEDS: ASPIRIN 81 MG PO SCH (08:34)
[2022-06-18] MEDS: GABAPENTIN 300 MG CAP PO SCH ×3 (08:34→21:53)
[2022-06-18] MEDS: MAGNESIUM OXIDE 400 MG TAB PO SCH (08:34)
[2022-06-18] MEDS: LORATADINE 10 MG TAB PO SCH (08:34)
[2022-06-18] MEDS: CHLORHEXIDINE GLUCONATE 15 ML CUP MUCOUS MEM SCH ×2 (08:34→21:53)
[2022-06-18 09:28] LABS: Chol/HDL Ratio 5.87 Ratio; LDL Cholesterol,Calculated 156.2 mg/dL (0.0-131.0)
[2022-06-18 11:41] LABS: Glucose,Whole Blood 221 mg/dL (70-110)
[2022-06-18] MEDS: INSULIN ASPART (NovoLOG) 100 UNIT/ML VIAL SQ SCH ×3 (12:04→17:18)
[2022-06-18] MEDS: atenoloL 50 MG TAB PO SCH ×2 (12:04→21:58)
--- NOTE | 2022-06-18 12:16 | P.CNNES ---
History of Present Illness Consult date: 06/18/22 Requesting physician: Robinson Monge Reason for Consult: neuro deficits, concern for cva History of Present Illness: This is a 66-year-old old stroke without any residual deficit, coronary artery disease, diabetes, hypertension who presented emergency department because of shortness of breath, right facial weakness and some slurred speech. Some of the history is obtained from the patient daughter was at bedside as well as the medical record. According to the daughter is seems the patient has been having of facial droop and some slurred speech and unsure exactly time of onset but per the ED note it stated that happened yesterday around lunchtime and was having difficulty feeding herself with the right hand with increased shortness of breath. Anterior and she was having cough. Patient is not on any blood thinner. Patient is on aspirin 81 mg daily at home. According to the daughter patient has a history of old stroke in the past and it was discovered on imaging but she did not have any residual weakness. Also during his hospital visit and per the ED is seems that the she was having confusion but was having worsening respiratory distress. According to the daughter the patient does not smoke or use alcohol or any illicit drug use. In the 2 medical record the seems that the patient had the recent back surgery in April 2022 over the lumbar area and the patient is on [place] 7.5 mg 1 tablet every 6 hours, Flexeril 5 mg 1 tablet twice a day, gabapentin 300 mg 1 tablet 3 times a day Because of her worsening shortness of breath the patient was intubated and placed on the sedation or airway protection. Then was transferred to ICU. Some of the workup during this hospital visit consisted of: Patient is afebrile. Serum glucose is 91. Ammonia level is less than 9. Hemoglobin A1c 6.9 Lipid panel: Triglyceride is 115, cholesterol is 216, LDL is 156 and HDL is 36. Urine drug screen is positive for opiates, tricyclic and benzoyl. Rest is noninfected and serum alcohol was less than 10 Navarro virus PCR was not detected RSV is not detected Influenza A/B PCR was not detected CT of the head is reported as no acute intracranial process or significant change from prior. CT angiography of the head and neck was reported as no evidence of dissection of the cervical internal carotid arteries or vertebral arteries or any evidence of significant stenosis at the carotid bifurcation. No evidence of high-grade stenosis or intracranial aneurysm. Multifocal patchy airspace opacity throughout the lung which may represent pulmonary edema versus pneumonia. Her NIH stroke scale ED is 2. No IV TPA since the last normal state is more than 24 hours. According to the ED the patient has right upper extremity ataxia which appears acute Review of Systems Review of system is limited by the prone positive and negative as per HPI. Past Medical History Past Medical History: Asthma, Coronary Artery Disease (CAD), COPD, Diabetes Marisol itus, Deep Vein Thrombosis (DVT), GERD/Reflux, Hyperlipidemia, Hypertension, Musculoskeletal Disorder, Osteoarthritis (OA), Renal Disease, Sleep Apnea/CPAP/BIPAP Additional Past Medical History / Comment(s): PUD, colitis, benign colon polyps, DVT L leg, migraines, ANDREW - uses cpap. kidney stones, CKD stage II, vertigo, recurrent L ear infections/ruptured eardrum, TMJ, mild CAD, back prob - NT Lt arm, leg. Edema BLE. covid + 01/19/2021 Last Myocardial Infarction Date:: 2009 History of Any Multi-Drug Resistant Organisms: None Reported Past Surgical History: Appendectomy, Cholecystectomy, Ear Surgery, Heart Catheterization, Hysterectomy, Joint Replacement, Orthopedic Surgery, Tonsillectomy Additional Past Surgical History / Comment(s): R/L knee arthroscopies, L ear patch/graft, EGD, colonoscopy/polypectomy, throat abscess. Right knee replacement, back surgery, Past Anesthesia/Blood Transfusion Reactions: Postoperative Nausea & Vomiting (PONV) Past Psychological History: Anxiety Smoking Status: Never smoker Past Alcohol Use History: None Reported Past Drug Use History: None Reported - Past Family History Sister(s) Family Medical History: Cancer Father Family Medical History: Cancer Additional Family Medical History / Comment(s): Throat and brain cancer. Father was an alcoholic. Mother Family Medical History: Liver Disease Additional Family Medical History / Comment(s): Mother is . She was an alcoholic. Medications and Allergies Home Medications Medication Instructions Recorded Confirmed Type Montelukast [Singulair] 10 mg PO HS 10/17/20 06/17/22 History Aspirin [Adult Low Dose Aspirin EC] 81 mg PO DAILY 04/21/22 06/17/22 History Loratadine [Claritin] 10 mg PO DAILY 04/21/22 06/17/22 History Magnesium Oxide 400 mg PO DAILY 04/21/22 06/17/22 History atenoloL [Tenormin] 50 mg PO BID 04/21/22 06/17/22 History Gabapentin [Neurontin] 300 mg PO TID cap 04/29/22 06/17/22 Rx Mag Hydrox/Al Hydrox/Simeth 30 ml PO Q4HR PRN ml 04/29/22 06/17/22 Rx [Maalox] bisacodyL [Dulcolax] 10 mg RECTAL DAILY PRN suppositor 04/29/22 06/17/22 Rx Cyclobenzaprine [Flexeril] 5 mg PO BID PRN 06/17/22 06/17/22 History HYDROcodone/APAP 7.5-325MG [[place] 1 tab PO Q6HR PRN 06/17/22 06/17/22 History 7.5] INSULIN ASPART (NovoLOG) [NovoLOG See Protocol SQ ACHS 06/17/22 06/17/22 History (formulary)] Sennosides/Docusate Sodium [Senna 1 tab PO DAILY PRN 06/17/22 06/17/22 History Plus 8.6-50 mg Tablet] Allergies Allergy/AdvReac Type Severity Reaction Status Date / Time Iodinated Contrast Media Allergy Severe Anaphylaxis Verified 06/17/22 16:30 [Iodinated Contrast Media - IV Dye] iodine Allergy Anaphylaxis Verified 06/17/22 16:30 Stmvzgp-[id number]-FrQ Reductase Allergy Anaphylaxis Verified 06/17/22 16:30 Inhibitor [Ykuxnfd-Umi-Ovq Reductase Inhibitor] Physical Examination - Vital Signs Vital Signs: Vital Signs Temp Pulse Resp BP Pulse Ox FiO2 06/18/22 11:00 55 L 16 95/49 95 50 06/18/22 10:00 58 L 16 160/127 95 50 06/18/22 09:49 50 06/18/22 09:00 97.5 F L 63 12 112/57 97 50 06/18/22 08:00 54 L 16 106/55 94 L 50 06/18/22 07:00 55 L 16 94 L 06/18/22 06:00 55 L 16 106/58 93 L 06/18/22 05:00 57 L 16 108/58 93 L 06/18/22 04:00 59 L 16 113/60 93 L 50 06/18/22 03:13 50 06/18/22 03:00 97.8 F 62 16 152/83 94 L 50 06/18/22 01:43 100 06/18/22 01:00 78 10 L 110/55 85 L 06/17/22 21:20 74 106/83 95 06/17/22 16:00 69 22 173/79 100 06/17/22 15:00 69 20 100 06/17/22 14:00 97.9 F 06/17/22 13:39 66 13 126/76 94 L Intake and Output 06/17/22 06/18/22 06/18/22 22:59 06:59 14:59 Intake Total 38.287 336.713 Output Total 247 160 Balance -208.713 176.713 Intake: IV 30 245 0.9 @ KVO 30 245 Intake, IV Titration 8.287 91.713 Amount propofoL 1,000 mg In 8.287 91.713 Empty Bag 1 bag @ 15 MCG/ KG/MIN 8.287 mls/hr IV . Q12H5M [facility] Rx#:[id number] Output: Urine 247 160 Other: Voiding Method Indwelling Catheter GENERAL: The patient is lying in bed and is not in acute distress. CHEST: The heart rate is regular rate rhythm. No murmurs to auscultation. LUNG: Clear to auscultation bilaterally no wheezing noted throughout. Not labored breathing. Intubated on ventilator. ABDOMEN/GI: Bowel sounds present in all 4 quadrants. No tenderness to palpation throughout. NEUROLOGICAL: Limited because of her condition. She is intubated on vent and is on IV Propofol 40mcg/kg/min. Higher mental function: Patient is comatose. GCS 6 (E1, VT1, M4). Not following command. Cranial nerves: The pupils are round, equal and reactive to light. Primary gaze is midline. No facial weakness. Intact gag/cough reflex. Is breathing over the vent. Rest is limited. Motor: The strength is hard to assess because of her condition. But withdrawing to uppers (mostly more Left > right withdrawaling). Decrease tone throughout. Normal bulk. Cerebellum: Unable to assess. Sensation: Unable to assess light touch. Reflexes (right/left): 1+ Plantars are mute bilaterally. Results - Laboratory Findings CBC and BMP: 06/18/22 03:33 06/18/22 03:33 Abnormal Lab Findings: Abnormal Labs 06/17/22 06/17/22 06/17/22 13:56 13:56 18:00 RBC 3.74 L Hgb Hct Lymphocytes # ABG pH ABG pCO2 ABG pO2 ABG HCO3 ABG Total CO2 ABG O2 Saturation Chloride 109 H BUN Glucose POC Glucose (mg/dL) Hemoglobin A1c 6.9 H Total Protein 5.8 L Albumin 3.4 L Cholesterol LDL Cholesterol, Calc HDL Cholesterol Ur Specific [place] Urine Protein Urine Glucose (UA) Urine Ketones Urine Bacteria Urine Mucus Urine Opiates Screen U Tricyclic Antidepress U Benzodiazepines Scrn 06/18/22 06/18/22 06/18/22 01:09 01:18 02:20 RBC Hgb Hct Lymphocytes # ABG pH 7.20 L 7.33 L ABG pCO2 69 H 47 H ABG pO2 286 H ABG HCO3 27 H ABG Total CO2 29 H 27 H ABG O2 Saturation 100.0 H Chloride BUN Glucose POC Glucose (mg/dL) 262 H Hemoglobin A1c Total Protein Albumin Cholesterol LDL Cholesterol, Calc HDL Cholesterol Ur Specific [place] Urine Protein Urine Glucose (UA) Urine Ketones Urine Bacteria Urine Mucus Urine Opiates Screen U Tricyclic Antidepress U Benzodiazepines Scrn 06/18/22 06/18/22 06/18/22 02:38 03:33 03:33 RBC 3.61 L Hgb 11.2 L Hct 33.7 L Lymphocytes # 0.7 L ABG pH ABG pCO2 ABG pO2 ABG HCO3 ABG Total CO2 ABG O2 Saturation Chloride BUN Glucose POC Glucose (mg/dL) 291 H Hemoglobin A1c Total Protein Albumin Cholesterol 216.00 H LDL Cholesterol, Calc 156.2 H HDL Cholesterol 36.80 L Ur Specific [place] Urine Protein Urine Glucose (UA) Urine Ketones Urine Bacteria Urine Mucus Urine Opiates Screen U Tricyclic Antidepress U Benzodiazepines Scrn 06/18/22 06/18/22 06/18/22 03:33 03:50 06:21 RBC Hgb Hct Lymphocytes # ABG pH ABG pCO2 ABG pO2 ABG HCO3 ABG Total CO2 ABG O2 Saturation Chloride 108 H BUN 21 H Glucose 264 H POC Glucose (mg/dL) 265 H Hemoglobin A1c Total Protein Albumin Cholesterol LDL Cholesterol, Calc HDL Cholesterol Ur Specific [place] >1.050 H Urine Protein 1+ H Urine Glucose (UA) 2+ H Urine Ketones 2+ H Urine Bacteria Rare H Urine Mucus Few H Urine Opiates Screen Detected H U Tricyclic Antidepress Detected H U Benzodiazepines Scrn Detected H 06/18/22 11:39 RBC Hgb Hct Lymphocytes # ABG pH ABG pCO2 ABG pO2 ABG HCO3 ABG Total CO2 ABG O2 Saturation Chloride BUN Glucose POC Glucose (mg/dL) 221 H Hemoglobin A1c Total Protein Albumin Cholesterol LDL Cholesterol, Calc HDL Cholesterol Ur Specific [place] Urine Protein Urine Glucose (UA) Urine Ketones Urine Bacteria Urine Mucus Urine Opiates Screen U Tricyclic Antidepress U Benzodiazepines Scrn Assessment and Plan Assessment: Acute right facial droop and slurred speech: Per ED he had ataxia of right upper. Probable Acute ischemic stroke Encephalopathy of unknown etiology. Possibly due to stroke versus hypercapnic respiratory failure. Also possibly due to medication effect narcotic/ Also due to component of sedation (Propofol) Acute hypercapneic Respiratory failure as a result patient is intubated on mechanical ventilatory History of lumbar spine surgery status post a fusion in April 2022. Diabetes mellitus History of chronic lower back pain status post lumbar fusion in April 2022 Previous history of stroke without residual weakness History of coronary artery disease She of obstructive sleep apnea Hypertension Hyperlipidemia Previous history of DVT Plan: I agree with a repeat CT of the head today. Once the patient was extubated recommend MRI the brain to rule out any acute or subacute ischemia 2-D echo was ordered and is pending Continue aspirin 81 mg daily (home dose). Will consider adding Plavix 75mg daily if patient imaging reveal stroke. Patient is not on any statins since the wilbert ent has ALLERGIES to statins according to the chart. I ordered TSH. I will pursue with a routine EEG. Continue neuro checks On cardiac monitoring PT OT and [employer] WALL[employer]ARD INSPECTOR are consulted Avoid any necrotic as much as possible. We'll defer the rest of the medical management to primary team For DVT prophylaxis the patient is on subcu heparin 5000 units every 8 hours Plan was discussed with the patient's daughter was at bedside as well as the patient nurse. Thank you for the consultation Time with Patient: Greater than 30
[2022-06-18 17:00] LABS: Glucose,Whole Blood 184 mg/dL (70-110)
--- NOTE | 2022-06-18 17:10 | CA ---
Transthoracic Echo Report Name: Shalonda Smalls Age: 66 Gender: F : 1955 Exam Date: 06/18/2022 15:32 Exam Location: [facility] Ht (in): 66 Wt (lb): 203 Ordering Physician: Robinson Monge MD Attending/Referring Phys: Sales Order Specialist Katt Ch RDCS Procedure CPT: Indications: dyspnea Cardiac Hx: Technical Quality: Fair Contrast 1: Total Dose (mL): Contrast 2: Total Dose (mL): MEASUREMENTS (Male / Female) Normal Values 2D ECHO LV Diastolic Diameter PLAX 3.4 cm 4.2 - 5.9 / 3.9 - 5.3 cm LV Systolic Diameter PLAX 2.6 cm IVS Diastolic Thickness 1.5 cm 0.6 - 1.0 / 0.6 - 0.9 cm LVPW Diastolic Thickness 1.7 cm 0.6 - 1.0 / 0.6 - 0.9 cm LV Relative Wall Thickness 0.9 RV Internal Dim ED PLAX 2.9 cm LA Volume 41.2 cm??? 18 - 58 / 22 - 52 cm??? M-MODE Aortic Root Diameter MM 3.2 cm LA Systolic Diameter MM 3.9 cm LA Ao Ratio MM 1.2 AV Cusp Separation MM 1.9 cm DOPPLER AV Peak Velocity 166.0 cm/s AV Peak Gradient 11.0 mmHg AV Mean Velocity 115.4 cm/s AV Mean Gradient 5.9 mmHg AV Velocity Time Integral 40.0 cm AI Peak Velocity 335.8 cm/s AI Peak Gradient 45.1 mmHg AI Pressure Half Time 665.9 ms LVOT Peak Velocity 97.4 cm/s LVOT Peak Gradient 3.8 mmHg LVOT Velocity Time Integral 22.9 cm MV Area PHT 2.3 cm??? Mitral E Point Velocity 60.1 cm/s Mitral A Point Velocity 85.6 cm/s Mitral E to A Ratio 0.7 MV Deceleration Time 333.6 ms TR Peak Velocity 235.5 cm/s TR Peak Gradient 22.2 mmHg Right Ventricular Systolic Press 27.1 mmHg FINDINGS Left Ventricle Moderately increased left ventricular wall thickness. Normal left ventricular systolic function with no obvious regional wall motion abnormalities. Left ventricular ejection fraction 55% Right Ventricle Normal right ventricular size. Right ventricular systolic pressure within normal limits. Right Atrium Normal right atrial size. Left Atrium Normal left atrial size. Mitral Valve Mild mitral regurgitation. Aortic Valve Mild aortic regurgitation. Tricuspid Valve Mild tricuspid regurgitation. Pulmonic Valve Trace pulmonic regurgitation. Pericardium No pericardial effusion. Aorta Normal size aortic root and proximal ascending aorta. CONCLUSIONS Left ventricular ejection fraction 55% Moderate increased left ventricular wall thickness RVSP 27 Mild mitral regurgitation Mild aortic regurgitation Mild tricuspid regurgitation No pericardial effusion Previewed by: Dr. Juan Luis Swanson DO (Electronically Signed) Final Date: 18 June 2022 17:09
--- NOTE | 2022-06-18 18:22 | CT ---
EXAMINATION TYPE: CT brain wo con DATE OF EXAM: 06/18/2022 COMPARISON: 06/17/2022 HISTORY: ams CT DLP: 1247.4 mGycm Automated exposure control for dose reduction was used. Ventricles have normal size. There is no mass effect nor midline shift. No sign of intracranial hemor rhage. The calvarium is intact. No evidence of cerebral edema. IMPRESSION: Negative CT scan of the brain. No change.
[2022-06-18] MEDS: AZITHROMYCIN 500 MG in SODIUM CHLORIDE 0.9% 250 ML IVPB SCH (18:26)
[2022-06-18] MEDS: MONTELUKAST 10 MG TAB PO SCH (21:53)
[2022-06-19] MEDS: HEPARIN SODIUM,PORCINE/PF 5,000 UNIT/0.5 ML SYRINGE SQ SCH ×3 (00:25→18:25)
[2022-06-19 05:59] LABS: ABG Base Excess 1.1 mmol/L; ABG HCO3 26 mmol/L (21-25); ABG Oxygen Saturation 99.4 % (94-97); ABG PCO2 41 mmHg (35-45); ABG PO2 111 mmHg (83-108); ABG TCO2 27 mmol/L (19-24); Allen Test Performed? Yes
--- NOTE | 2022-06-19 06:15 | HP ---
HISTORY AND PHYSICAL HISTORY OF PRESENT ILLNESS: A 66-year-old white female came to the emergency room with possible stroke-type symptoms for the past 24 to 48 hours. She was evaluated in the emergency room. Angiography CT of the brain showed patent common carotid system, no significant stenosis in the ER, patchy areas of opacities throughout the lungs, pulmonary edema versus pneumonia, treated with broad-spectrum antibiotics for pneumonia and altered mental status secondary to pneumonia versus TIA versus stroke. Pulmonary and Neurology were consulted. HOME MEDICATIONS: 1. Singulair 10 mg daily. 2. Aspirin 81 mg daily. 3. Claritin 10 mg daily. 4. Mag oxide 400 daily. 5. Tenormin 50 b.i.d. 6. Flexeril 5 t.i.d. 7. NovoLog before meals and at bedtime. 8. [place] 7.5 every 6 p.r.n. 9. Senna p.r.n. ALLERGIES: Iodine, statins. REVIEW OF SYSTEMS: A 14-point review of systems garbled speech, weakness, fatigue, generalized weakness, cough, congestion, shortness of breath. PAST MEDICAL HISTORY: Asthma, coronary artery disease, diabetes mellitus, COPD, DVT, GERD, hypertension, dyslipidemia, osteoarthritis, renal disease, sleep apnea, migraines, vertigo. PAST SURGICAL HISTORY: Appendectomy, cholecystectomy, heart catheterization, hysterectomy, joint replacement, orthopedic surgery, tonsillectomy. FAMILY HISTORY: Father cancer of the brain and throat. Mother, liver disease. PHYSICAL EXAMINATION: VITAL SIGNS: Temperature 97.9, pulse 66 to 69, respiratory rate 13 to 16, blood pressure 120s over 70s, O2 of 94 to 100. CARDIOVASCULAR: S1, S2. LUNGS: Scattered rhonchi and wheeze. HEMATOLOGY: Negative Homans. PSYCH: Altered mental status. Pleasantly confused. She mumbles a lot of her answers. MUSCULOSKELETAL: She has 3 to 4/5 extremity range of motion. I do not see any focal weakness. No facial slurring or atrophy or paresthesias seen. SKIN: No rash, excoriation, bruising. CARDIOVASCULAR: S1, S2. LUNGS: Scattered rhonchi and wheeze. Satting was like 94% on room air. EXTREMITIES: 2+ edema. Negative Homans. ASSESSMENT: Probable bilateral pneumonia, altered mental status, metabolic encephalopathy, rule out cerebrovascular accident versus transient ischemic attack. Prognosis guarded. I have evaluated her in the emergency room on 06/17/2022 in the ER. MMMONAE / MINOR: [id number] /
--- NOTE | 2022-06-19 06:17 | XR ---
EXAMINATION TYPE: XR chest 1V portable DATE OF EXAM: 06/19/2022 CLINICAL HISTORY: Difficulty breathing progress study. TECHNIQUE: Single AP portable semiupright view of the chest is obtained. COMPARISON: Chest x-ray from one day earlier and older studies. FINDINGS: Stable endotracheal and orogastric tubes. Low lung volumes redemonstrated. Persistent left greater than right bibasilar opacities. Cardiac silh ouette size stable and upper limits of normal. Multilevel spurring in the spine redemonstrated. IMPRESSION: Low lung volumes with left greater than right bibasilar acute infiltrate and/or atelectas is redemonstrated. No significant change from one day earlier.
[2022-06-19 07:02] LABS: Glucose,Whole Blood 130 mg/dL (70-110)
[2022-06-19] MEDS: INSULIN ASPART (NovoLOG) 100 UNIT/ML VIAL SQ SCH ×3 (07:02→16:37)
[2022-06-19 07:50] LABS: Basophils % (A) 0 %; Eosinophils % (A) 1 %; HCT 30.2 % (34.0-46.0); HGB 10.2 gm/dL (11.4-16.0); Hypochromasia Moderate; Lymphocytes # (A) 1.1 k/uL (1.0-4.8); Lymphocytes % (A) 19 %; MCH 32.4 pg (25.0-35.0); MCHC 33.9 g/dL (31.0-37.0); MCV 95.6 fL (80.0-100.0); Monocytes # (A) 0.5 k/uL (0-1.0); Monocytes % (A) 10 %; Neutrophils # (A) 3.8 k/uL (1.3-7.7); Neutrophils % (A) 69 %; Platelet Count 181 k/uL (150-450); Poikilocytosis Slight; RBC 3.16 m/uL (3.80-5.40); RDW 14.4 % (11.5-15.5); WBC 5.5 k/uL (3.8-10.6)
--- NOTE | 2022-06-19 07:57 | P.PN ---
Subjective Progress Note Date: 06/19/22 66-year-old female patient who came into the emergency department yesterday bec ause of altered mental status. The patient was also having shortness of breath for the past 5 days. Apparently, her symptoms got worse on the day of admission. The patient had mild right sided facial droop per home health nurse as well as slurred speech. Symptoms started at around noon yesterday. She also had difficulties in feeding herself and she was unable to use her right hand. Based on that, the patient was brought into the emergency department. In the ED, her mentation was altered and she had an NIH of 2 and her last known mental status assessment was more than 24 hours ago. Her cardiac rhythm was sinus. Her labs are unremarkable. Urine drug screen was positive for opiates and benzodiazepines. Her Covid 19 testing flu and RSV were negative. At that point, a CAT scan of the brain was done and it showed no acute abnormalities. This was discussed with neurology after the CT angiogram. The CT angiogram showed no evidence of any dissection or any high-grade stenosis within the brain. There was some multifocal patchy airspace opacity throughout the lungs as noted in the CT angiogram. The case was discussed with neurology. The patient was not found to be a candidate for TPA administration. While in the emergency, the patient's stroke was evaluated by our nursing staff. She was apparently following simple commands. Nevertheless, her rest or status was worse and she was having more labored breathing and air and she was quite limited bilaterally. At that point, a blood gas was done that showed a pH of 7.19 with a pCO2 of 69 and pO2 of 91. There was a concern that the patient was unable to protect her airways and for that reason the, the patient was intubated and placed on a mechanical ventilator. Post intubation chest x-ray shows adequate positioning of the orotracheal tube. The patient has also and orogastric tube in place. No significant airspace disease or opacities seen on the chest x-ray. The lung volumes are essentially small. Some limited bibasilar pulmonary infiltrates cannot be completely excluded. This morning, the patient is on propofol at 20 mg/kg/m pH is calm and comfortable and hemodynamically stable. She is on assist-control mode of mechanical ventilation at the rate of 18 with a tidal volume of 350 and FiO2 of 50% with a PEEP of 5. Most recent blood gas from this morning shows a a pH of 7.33 with a pCO2 of 47 and pO2 of 286 and this was done on FiO2 of 100% post intubation. Rest of the labs that essentially within normal limits. Her UA was positive for glucose, +2 ketones and negative for infection. Her proBNP level was 187. Troponins were all negative. WBC count was at 5.1 with a hemoglobin of 11.2. Currently on IV fluids at 20 mL an hour. Pete catheter is in place. An output is adequate.the patient also has a history of L2-L4 spondylosis with stenosis; left large any weakness; low back pain. At this point patient has failed conservative treatment measures and has opted to proceed with a elective L2-3 and L3-4 posteriolateral and interbody fusion; L2-3 and L3-4 bilateral laminectomy, complete facetectomy and foraminotomy. She has other comorbidities including coronary artery disease, diabetes mellitus, previous history of CVA which was not seen on the CAT scan of the brain, COPD, obstructive sleep apnea/asthma, previous history of DVTs and osteoarthritis. She was also infected with Covid 19 back in . On 06/19/2022, the patient is still intubated on a mechanical ventilator. Note that I give the patient agrees sedation holiday yesterday. I was informed by the nursing staff that the patient didn't arouse and she was not following any commands and she was not purposeful. At that point, the holiday was discontinued and the patient was placed again on propofol and she is currently on 45 mcg/kg/m of propofol infusion. She is resting comfortably in bed. She is on assist-control mechanical ventilation and currently she is on a rate of 16, tidal volume of 350, FiO2 of 50% and a PEEP of 5. Current pulse ox is 99%. The blood gas from today showed a pH of 7.4 with a pCO2 of 41 and pO2 111 and this was on FiO2 of 50%. Repeat chest x-ray from today shows adequate expansion of both lungs. ET tube is in a good location. Lung volumes are low and there may be some right basilar atelectasis/infiltrate. Essentially, no major interval change compared to yesterday. Meanwhile, repeat CAT scan of the brain was done yesterday and the patient was seen by neurology. CAT scan of the brain was negative and neurology consultation was appreciated and based on their opinion, the encephalopathy caused remains unclear. Stroke cannot be completely ruled out. Seizure is felt to be less likely. The patient was kept on aspirin and EEG was ordered. The echocardiogram was also completed yesterday and the patient had a preserved LV function, moderate LV wall thickness, no significant valvular abnormalities. Right ventricular systolic pressure was around 27 mmHg. Labs from today are still pending. Objective - Vital Signs Vital signs: Vital Signs Temp 97.6 F 06/18/22 16:00 Pulse 51 L 06/19/22 07:00 Resp 16 06/19/22 07:00 BP 125/53 06/19/22 07:00 Pulse Ox 98 06/19/22 07:00 FiO2 50 06/19/22 07:08 Intake & Output 06/18/22 06/19/22 06/19/22 18:59 06:59 18:59 Intake Total 985.824 4009.715 Output Total 370 495 Balance 569.335 736.715 Weight 92.079 kg Intake: IV 770 900 0.9 @ 75 770 900 Intake, IV Titration 169.335 331.715 Amount propofoL 1,000 mg In 169.335 331.715 Empty Bag 1 bag @ 15 MCG/ KG/MIN 8.287 mls/hr IV . Q12H5M [facility] Rx#:[id number] Output: Urine 370 495 Other: Voiding Method Indwelling Catheter Indwelling Catheter - Exam Gen. appearance the patient is calm and comfortable and she is currently adequately sedated, intubated on a mechanical ventilator with an orotracheal and orogastric tube being both in place. No tachycardia. She is quite successful mechanical ventilator at this point in time. Head exam was generally normal. There was no scleral icterus or corneal arcus. Mucous membranes were moist. Neck was supple and without jugular venous distension, thyromegaly, or carotid bruits. Carotids were easily palpable bilaterally. There was no adenopathy. Lungs were clear to auscultation and percussion, and with normal diaphragmatic excursion. No wheezes or rales were noted. Cardiac exam revealed the PMI to be normally situated and sized. The rhythm was regular and no extrasystoles were noted during several minutes of auscultation. The first and second heart sounds were normal and physiologic splitting of the second heart sound was noted. There were no murmurs, rubs, clicks, or gallops. Abdominal exam revealed normal bowel sounds. The abdomen was soft, non-tender, and without masses, organomegaly, or appreciable enlargement of the abdominal aorta. Examination of the extremities revealed easily palpable radial, femoral and pedal pulses. There was no cyanosis, clubbing or edema. Examination of the skin revealed no evidence of significant rashes, suspicious appearing nevi or other concerning lesions. Neurologically the patient is sedated. No seizure activity has been noted. Pupils are equal and reactive to light. No facial asymmetry. She grimaces to deep painful stimulation. Sensory and motor functions cannot be adequately assessed. There is a positive cough and a gag reflex at this point in time. No facial asymmetry. - Labs CBC & Chem 7: 06/18/22 03:33 06/18/22 03:33 Labs: Abnormal Lab Results - Last 24 Hours (Table) 06/18/22 06/18/22 06/18/22 Range/Units 03:33 11:39 16:59 ABG pO2 (83-108) mmHg ABG HCO3 (21-25) mmol/L ABG Total CO2 (19-24) mmol/L ABG O2 Saturation (94-97) % POC Glucose (mg/dL) 221 H 184 H (70-110) mg/dL Cholesterol 216.00 H (0.00-200.00) mg/dL LDL Cholesterol, Calc 156.2 H (0.0-131.0) mg/dL HDL Cholesterol 36.80 L (40.00-60.00) mg/dL 06/19/22 06/19/22 Range/Units 05:54 07:00 ABG pO2 111 H (83-108) mmHg ABG HCO3 26 H (21-25) mmol/L ABG Total CO2 27 H (19-24) mmol/L ABG O2 Saturation 99.4 H (94-97) % POC Glucose (mg/dL) 130 H (70-110) mg/dL Cholesterol (0.00-200.00) mg/dL LDL Cholesterol, Calc (0.0-131.0) mg/dL HDL Cholesterol (40.00-60.00) mg/dL Microbiology - Last 24 Hours (Table) 06/17/22 14:04 Blood Culture - Preliminary Blood No Growth after 24 hours 06/17/22 14:21 Blood Culture - Preliminary Blood No Growth after 24 hours Assessment and Plan Plan: Altered mental status, under investigation. The exact cause is not clear. There was concern that the patient may have had a stroke as there was description of a facial droop and right arm weakness. Nevertheless, the exact timing was not accurately documented and the patient had a CAT scan of the brain and a CT angiogram that were negative and the patient did not receive any thrombolytics. Possibility of hypercapnic respiratory failure and CO2 narcosis need to be considered especially with a history of obstructive sleep apnea and narcotic intake. Her blood gas was consistent with acute respiratory acidosis in the emergency department. Currently intubated on a mechanical ventilator. Intubation was done to protect her airways Acute hypoxic/hypercapnic respiratory failure, currently intubated on mechanical ventilator. History of obstructive sleep apnea History of lumbar spine surgery with multilevel fusion performed in April 2022 maintained on narcotics on outpatient basis and the patient was receiving Donnelly 7.5 and her urine drug screen is positive for opiates and benzodiazepines. Diabetes mellitus COPD Previous history of CVA Severe degenerative arthritis and chronic back pain Obesity Coronary artery disease Previous history of DVT Hyperlipidemia Hypertension Colonic polyps Previous history of Covid 19 infection back in Plan Continue ventilator support, and dropped FiO2 down to 40% IV fluids with normal saline at rate of 75 mL an hour Give the patient another sedation holiday and assess the mental status Repeat a 24-hour CAT scan of the brain showed no acute abnormalities Obtain a neurology consultation is appreciated Avoid narcotic medications for now Continue empiric Antibiotic coverage although there is no clear indication for an underlying pneumonia Heparin subcu portably prophylaxis Resume all medication including a NovoLog size, coverage We'll continue to follow May potentially extubate the patient as long as the patient arouses adequately and she is able to give us adequate weaning parameters and she is able to pass spontaneous breathing trial. She has remained hemodynamically stable over the past 24 hours. Awaiting labs from today. Chest x-ray remains unchanged. No new onset neurological symptoms at this point in time. No witnessed seizure activity. We'll continue to follow. Critical care evaluation, more than 30 minutes Time with Patient: Greater than 30
[2022-06-19 08:07] LABS: ALT 15 U/L (4-34); AST 18 U/L (14-36); African American GFR (CKD) >90 (>60 ml/min/1.73 sqM); Albumin 2.8 g/dL (3.5-5.0); Alkaline Phosphatase 70 U/L (38-126); Anion Gap 4 mmol/L; Blood Urea Nitrogen 17 mg/dL (7-17); Calcium 8.5 mg/dL (8.4-10.2); Carbon Dioxide 25 mmol/L (22-30); Chloride 112 mmol/L (98-107); Glucose 109 mg/dL (74-99); Non-African American GFR(CKD) >90 (>60 ml/min/1.73 sqM); Potassium 3.7 mmol/L (3.5-5.1); Sodium 141 mmol/L (137-145); Total Bilirubin 0.3 mg/dL (0.2-1.3)
[2022-06-19] MEDS: PANTOPRAZOLE 40 MG/10 ML VIAL IVP SCH (08:08)
[2022-06-19] MEDS: CHLORHEXIDINE GLUCONATE 15 ML CUP MUCOUS MEM SCH (08:08)
[2022-06-19] MEDS: LORATADINE 10 MG TAB PO SCH (08:09)
[2022-06-19] MEDS: ASPIRIN 81 MG PO SCH (08:09)
[2022-06-19] MEDS: GABAPENTIN 300 MG CAP PO SCH ×3 (08:09→21:59)
[2022-06-19] MEDS: MAGNESIUM OXIDE 400 MG TAB PO SCH (08:09)
[2022-06-19] MEDS: atenoloL 50 MG TAB PO SCH ×2 (08:09→21:58)
--- NOTE | 2022-06-19 11:32 | P.PN ---
Subjective Progress Note Date: 06/19/22 The patient is seen at bedside and she is about the same. She continues to be intubated on ventilator. Objective - Vital Signs Vital signs: Vital Signs Temp 98.4 F 06/19/22 08:00 Pulse 65 06/19/22 11:00 Resp 15 06/19/22 11:00 BP 137/78 06/19/22 11:00 Pulse Ox 97 06/19/22 11:00 FiO2 40 06/19/22 11:00 Intake & Output 06/18/22 06/19/22 06/19/22 18:59 06:59 18:59 Intake Total 952.762 6618.715 432.135 Output Total 370 495 365 Balance 569.335 736.715 67.135 Weight 92.079 kg 95 kg Intake: IV 770 900 375 0.9 @ 75 770 900 375 Intake, IV Titration 169.335 331.715 57.135 Amount propofoL 1,000 mg In 169.335 331.715 57.135 Empty Bag 1 bag @ 15 MCG/ KG/MIN 8.287 mls/hr IV . Q12H5M [facility] Rx#:[id number] Output: Urine 370 495 365 Other: Voiding Method Indwelling Catheter Indwelling Catheter - Exam GENERAL: The patient is lying in bed and is not in acute distress. LUNG: Clear to auscultation bilaterally no wheezing noted throughout. Not labored breathing. Intubated on ventilator. NEUROLOGICAL: Limited because of her condition. She is intubated on vent and is on IV Propofol 35mcg/kg/min. Higher mental function: Patient is comatose. GCS 6 (E1, VT1, M4). Not follo wing command. Cranial nerves: The pupils are round, equal and reactive to light. Primary gaze is lowing downward. No facial weakness. Intact gag/cough reflex. Is breathing over the vent. Rest is limited. Motor: The strength is hard to assess because of her condition. But withdrawing lowers and appears symmetrical. Decrease tone throughout. Normal bulk. Cerebellum: Unable to assess. Sensation: Unable to assess light touch. Reflexes (right/left): 1+ Plantars are mute bilaterally. Some of the workup during this hospital visit consisted of: Patient is afebrile. Serum glucose is 91. Ammonia level is less than 9. Hemoglobin A1c 6.9 TSH: 0.940 Lipid panel: Triglyceride is 115, cholesterol is 216, LDL is 156 and HDL is 36. Urine drug screen is positive for opiates, tricyclic and benzoyl. Rest is noninfected and serum alcohol was less than 10 Navarro virus PCR was not detected RSV is not detected Influenza A/B PCR was not detected CT of the head is reported as no acute intracranial process or significant change from prior. CT angiography of the head and neck was reported as no evidence of dissection of the cervical internal carotid arteries or vertebral arteries or any evidence of significant stenosis at the carotid bifurcation. No evidence of high-grade stenosis or intracranial aneurysm. Multifocal patchy airspace opacity throughout the lung which may represent pulmonary edema versus pneumonia. Repeat CT head is negative CT scan of the brain. No change. 2-D echo was reported left ventricle ejection fraction 55. Moderately increased left ventricular wall thickness. - Labs CBC & Chem 7: 06/19/22 07:17 06/19/22 07:17 Labs: Abnormal Lab Results - Last 24 Hours (Table) 06/18/22 06/18/22 06/19/22 Range/Units 11:39 16:59 05:54 RBC (3.80-5.40) m/uL Hgb (11.4-16.0) gm/dL Hct (34.0-46.0) % ABG pO2 111 H (83-108) mmHg ABG HCO3 26 H (21-25) mmol/L ABG Total CO2 27 H (19-24) mmol/L ABG O2 Saturation 99.4 H (94-97) % Chloride (98-107) mmol/L Glucose (74-99) mg/dL POC Glucose (mg/dL) 221 H 184 H (70-110) mg/dL Total Protein (6.3-8.2) g/dL Albumin (3.5-5.0) g/dL 06/19/22 06/19/22 06/19/22 Range/Units 07:00 07:17 07:17 RBC 3.16 L (3.80-5.40) m/uL Hgb 10.2 L (11.4-16.0) gm/dL Hct 30.2 L (34.0-46.0) % ABG pO2 (83-108) mmHg ABG HCO3 (21-25) mmol/L ABG Total CO2 (19-24) mmol/L ABG O2 Saturation (94-97) % Chloride 112 H (98-107) mmol/L Glucose 109 H (74-99) mg/dL POC Glucose (mg/dL) 130 H (70-110) mg/dL Total Protein 5.0 L (6.3-8.2) g/dL Albumin 2.8 L (3.5-5.0) g/dL Microbiology - Last 24 Hours (Table) 06/17/22 14:04 Blood Culture - Preliminary Blood No Growth after 24 hours 06/17/22 14:21 Blood Culture - Preliminary Blood No Growth after 24 hours Assessment and Plan Assessment: Acute right facial droop and slurred speech: Per ED he had ataxia of right upper. Probable Acute ischemic stroke Encephalopathy of unknown etiology. Possibly due to stroke versus hypercapnic respiratory failure. Also possibly due to medication effect narcotic/ Also due to component of sedation (Propofol) Acute hypercapneic Respiratory failure as a result patient is intubated on mechanical ventilatory History of lumbar spine surgery status post a fusion in April 2022. Diabetes mellitus History of chronic lower back pain status post lumbar fusion in April 2022 Previous history of stroke without residual weakness History of coronary artery disease She of obstructive sleep apnea Hypertension Hyperlipidemia Previous history of DVT Plan: Once the patient was extubated recommend MRI the brain to rule out any acute or subacute ischemia Continue aspirin 81 mg daily (home dose). Will consider adding Plavix 75mg daily if patient imaging reveal stroke. Patient is not on any statins since the patient has ALLERGIES to statins according to the chart. I will pursue with a routine EEG. Continue neuro checks On cardiac monitoring PT OT and [employer] are consulted Avoid any necrotic as much as possible. We'll defer the rest of the medical management to primary team For DVT prophylaxis the patient is on subcu heparin 5000 units every 8 hours Will continue to follow. Time with Patient: Less than 30
[2022-06-19 12:09] LABS: Glucose,Whole Blood 76 mg/dL (70-110)
[2022-06-19 16:30] LABS: Glucose,Whole Blood 61 mg/dL (70-110)
--- NOTE | 2022-06-19 16:39 | EEG ---
ELECTROENCEPHALOGRAM REPORT CLINICAL HISTORY: This is a 66-year-old woman with altered mental status. The video EEG is obtained to evaluate for seizure and epileptiform activity. RELEVANT MEDICATION: Propofol. EEG TYPE: This is a routine 21-channel EEG performed with video using the 10/20 electrode placement system. DESCRIPTION: The patient is intubated on the ventilator. The background consists of diffuse low-to- moderate voltage of 6 to 7 Hz activity alternating with diffuse nonrhythmic delta activity. There is no physiological stage II sleep architecture seen. There is no focal slowing. Interictal and ictal are none. ACTIVATION PROCEDURE: Photic stimulation and hyperventilation are not performed. CLINICAL INTERPRETATION: This is an abnormal routine EEG. The background slowing is suggestive of moderate encephalopathy. Otherwise, there is no focal slowing, epileptiform discharges, or seizure on the EEG. Clinical correlation is recommended. JOSÉ / MINOR: [id number] /
[2022-06-19] MEDS: DEXTROSE 50% SYRINGE 50 ML IVP PRN (16:40)
[2022-06-19 17:11] LABS: Glucose,Whole Blood 117 mg/dL (70-110)
[2022-06-19] MEDS: AZITHROMYCIN 500 MG in SODIUM CHLORIDE 0.9% 250 ML IVPB SCH (18:26)
[2022-06-19] MEDS: MONTELUKAST 10 MG TAB PO SCH (21:58)
[2022-06-19] MEDS ORDERED: ZIPRASIDONE 20 MG VIAL IM ONE (22:56)
[2022-06-20] MEDS: HEPARIN SODIUM,PORCINE/PF 5,000 UNIT/0.5 ML SYRINGE SQ SCH ×4 (02:31→16:37)
[2022-06-20 06:07] LABS: Basophils % (A) 0 %; Eosinophils # (A) 0.1 k/uL (0-0.7); Eosinophils % (A) 1 %; HCT 30.7 % (34.0-46.0); HGB 10.5 gm/dL (11.4-16.0); Hypochromasia Slight; Lymphocytes # (A) 1.6 k/uL (1.0-4.8); Lymphocytes % (A) 31 %; MCH 31.8 pg (25.0-35.0); MCHC 34.1 g/dL (31.0-37.0); MCV 93.5 fL (80.0-100.0); Mean Platelet Volume 8.3; Monocytes # (A) 0.4 k/uL (0-1.0); Monocytes % (A) 7 %; Neutrophils # (A) 3.1 k/uL (1.3-7.7); Neutrophils % (A) 59 %; Platelet Count 202 k/uL (150-450); Poikilocytosis Slight; RBC 3.29 m/uL (3.80-5.40); RDW 14.8 % (11.5-15.5); WBC 5.2 k/uL (3.8-10.6)
[2022-06-20 06:22] LABS: Calcium 8.3 mg/dL (8.4-10.2); Potassium 3.2 mmol/L (3.5-5.1)
[2022-06-20] MEDS ORDERED: Potassium Replacement Protocol 1 EACH MISC MISCELLANE PRN (07:52)
[2022-06-20] MEDS: INSULIN ASPART (NovoLOG) 100 UNIT/ML VIAL SQ SCH ×3 (08:12→16:54)
--- NOTE | 2022-06-20 08:38 | P.PN ---
Subjective Progress Note Date: 06/20/22 66-year-old female patient who came into the emergency department yesterday bec ause of altered mental status. The patient was also having shortness of breath for the past 5 days. Apparently, her symptoms got worse on the day of admission. The patient had mild right sided facial droop per home health nurse as well as slurred speech. Symptoms started at around noon yesterday. She also had difficulties in feeding herself and she was unable to use her right hand. Based on that, the patient was brought into the emergency department. In the ED, her mentation was altered and she had an NIH of 2 and her last known mental status assessment was more than 24 hours ago. Her cardiac rhythm was sinus. Her labs are unremarkable. Urine drug screen was positive for opiates and benzodiazepines. Her Covid 19 testing flu and RSV were negative. At that point, a CAT scan of the brain was done and it showed no acute abnormalities. This was discussed with neurology after the CT angiogram. The CT angiogram showed no evidence of any dissection or any high-grade stenosis within the brain. There was some multifocal patchy airspace opacity throughout the lungs as noted in the CT angiogram. The case was discussed with neurology. The patient was not found to be a candidate for TPA administration. While in the emergency, the patient's stroke was evaluated by our nursing staff. She was apparently following simple commands. Nevertheless, her rest or status was worse and she was having more labored breathing and air and she was quite limited bilaterally. At that point, a blood gas was done that showed a pH of 7.19 with a pCO2 of 69 and pO2 of 91. There was a concern that the patient was unable to protect her airways and for that reason the, the patient was intubated and placed on a mechanical ventilator. Post intubation chest x-ray shows adequate positioning of the orotracheal tube. The patient has also and orogastric tube in place. No significant airspace disease or opacities seen on the chest x-ray. The lung volumes are essentially small. Some limited bibasilar pulmonary infiltrates cannot be completely excluded. This morning, the patient is on propofol at 20 mg/kg/m pH is calm and comfortable and hemodynamically stable. She is on assist-control mode of mechanical ventilation at the rate of 18 with a tidal volume of 350 and FiO2 of 50% with a PEEP of 5. Most recent blood gas from this morning shows a a pH of 7.33 with a pCO2 of 47 and pO2 of 286 and this was done on FiO2 of 100% post intubation. Rest of the labs that essentially within normal limits. Her UA was positive for glucose, +2 ketones and negative for infection. Her proBNP level was 187. Troponins were all negative. WBC count was at 5.1 with a hemoglobin of 11.2. Currently on IV fluids at 20 mL an hour. Pete catheter is in place. An output is adequate.the patient also has a history of L2-L4 spondylosis with stenosis; left large any weakness; low back pain. At this point patient has failed conservative treatment measures and has opted to proceed with a elective L2-3 and L3-4 posteriolateral and interbody fusion; L2-3 and L3-4 bilateral laminectomy, complete facetectomy and foraminotomy. She has other comorbidities including coronary artery disease, diabetes mellitus, previous history of CVA which was not seen on the CAT scan of the brain, COPD, obstructive sleep apnea/asthma, previous history of DVTs and osteoarthritis. She was also infected with Covid 19 back in . On 06/19/2022, the patient is still intubated on a mechanical ventilator. Note that I give the patient agrees sedation holiday yesterday. I was informed by the nursing staff that the patient didn't arouse and she was not following any commands and she was not purposeful. At that point, the holiday was discontinued and the patient was placed again on propofol and she is currently on 45 mcg/kg/m of propofol infusion. She is resting comfortably in bed. She is on assist-control mechanical ventilation and currently she is on a rate of 16, tidal volume of 350, FiO2 of 50% and a PEEP of 5. Current pulse ox is 99%. The blood gas from today showed a pH of 7.4 with a pCO2 of 41 and pO2 111 and this was on FiO2 of 50%. Repeat chest x-ray from today shows adequate expansion of both lungs. ET tube is in a good location. Lung volumes are low and there may be some right basilar atelectasis/infiltrate. Essentially, no major interval change compared to yesterday. Meanwhile, repeat CAT scan of the brain was done yesterday and the patient was seen by neurology. CAT scan of the brain was negative and neurology consultation was appreciated and based on their opinion, the encephalopathy caused remains unclear. Stroke cannot be completely ruled out. Seizure is felt to be less likely. The patient was kept on aspirin and EEG was ordered. The echocardiogram was also completed yesterday and the patient had a preserved LV function, moderate LV wall thickness, no significant valvular abnormalities. Right ventricular systolic pressure was around 27 mmHg. Labs from today are still pending. On 06/20/2022, the patient is extubated and the patient is currently on oxygen at 4 L. we were able to gradually wean her off sedation yesterday and the patient arouse. following that, she was able to go through a small to his breathing trial and the patient was extubated to nasal cannula. she was initially confused postextubation. She was also agitated and combative. Based on that, she was given Geodon to control her agitation. This morning, she is not agitated. She has relaxed. She is answering some questions although she is not absolutely appropriate. Her breathing is nonlabored. She has a congested cough. Unable to bring up much sputum. She has a white cell count of 5.2 with a hemoglobin of 10.5 and a platelet count of 202. Sodium is at 146, BUN is at 12 with a creatinine of 0.8 and the serum bicarb is at 27. Blood cultures have been negative. Sputum cultures were negative. The patient's pro-calcitonin level was at 0.07. The chest x-ray from yesterday showed smaller lung volumes along with some atelectatic changes in lung bases bilaterally. Based on her altered mentation, the patient was seen by neurology. Their recommendations was to eggs acute and MRI of the brain at the later stage. He also made recommendations to continue aspirin. EEG was also done yesterday that showed background slowing and moderate encephalopathy. No seizure activity was noted. I think so she is on IV fluids and currently she is on normal saline at rate of 75 mL an hour. Pete catheter is in place. She has adequate urine output. Objective - Vital Signs Vital signs: Vital Signs Temp 98 F 06/20/22 00:00 Pulse 79 06/20/22 08:00 Resp 16 06/20/22 08:00 BP 156/88 06/20/22 08:00 Pulse Ox 98 06/20/22 08:00 FiO2 40 06/19/22 13:00 Intake & Output 06/19/22 06/20/22 06/20/22 18:59 06:59 18:59 Intake Total 1000.000 675 Output Total 695 1075 125 Balance 305.000 -400 -125 Intake: IV 900 675 0.9 @ 75 900 675 Intake, IV Titration 100.000 Amount propofoL 1,000 mg In 100.000 Empty Bag 1 bag @ 15 MCG/ KG/MIN 8.287 mls/hr IV . Q12H5M [facility] Rx#:[id number] Output: Urine 695 1075 125 Other: Voiding Method Indwelling Catheter Indwelling Catheter - Exam Gen. appearance the patient is calm and comfortable , lethargic, confused, and the patient is currently on 6 L of O2 nasal cannula. Breathing is nonlabored. Head exam was generally normal. There was no scleral icterus or corneal arcus. Mucous membranes were moist. Neck was supple and without jugular venous distension, thyromegaly, or carotid bruits. Carotids were easily palpable bilaterally. There was no adenopathy. Lungs were clear to auscultation and percussion, and with normal diaphragmatic excursion. No wheezes or rales were noted. Cardiac exam revealed the PMI to be normally situated and sized. The rhythm was regular and no extrasystoles were noted during several minutes of auscultation. The first and second heart sounds were normal and physiologic splitting of the second heart sound was noted. There were no murmurs, rubs, clicks, or gallops. Abdominal exam revealed normal bowel sounds. The abdomen was soft, non-tender, and without masses, organomegaly, or appreciable enlargement of the abdominal aorta. Examination of the extremities revealed easily palpable radial, femoral and pedal pulses. There was no cyanosis, clubbing or edema. Examination of the skin revealed no evidence of significant rashes, suspicious appearing nevi or other concerning lesions. Neurologically the patient is sedated. Alert and oriented 1. Withdrawing and moving all 4 extremities. No focal neurological deficits. She has underlying confusion and the mental status is still altered. At times, she gets agitated and the patient was given Geodon overnight. - Labs CBC & Chem 7: 06/20/22 05:37 06/20/22 05:37 Labs: Abnormal Lab Results - Last 24 Hours (Table) 06/19/22 06/19/22 06/20/22 Range/Units 16:29 17:09 05:37 RBC 3.29 L (3.80-5.40) m/uL Hgb 10.5 L (11.4-16.0) gm/dL Hct 30.7 L (34.0-46.0) % Sodium (137-145) mmol/L Potassium (3.5-5.1) mmol/L Chloride (98-107) mmol/L Glucose (74-99) mg/dL POC Glucose (mg/dL) 61 L 117 H (70-110) mg/dL Calcium (8.4-10.2) mg/dL 06/20/22 Range/Units 05:37 RBC (3.80-5.40) m/uL Hgb (11.4-16.0) gm/dL Hct (34.0-46.0) % Sodium 146 H (137-145) mmol/L Potassium 3.2 L (3.5-5.1) mmol/L Chloride 117 H (98-107) mmol/L Glucose 71 L (74-99) mg/dL POC Glucose (mg/dL) (70-110) mg/dL Calcium 8.3 L (8.4-10.2) mg/dL Microbiology - Last 24 Hours (Table) 06/17/22 14:04 Blood Culture - Preliminary Blood No Growth after 48 hours 06/17/22 14:21 Blood Culture - Preliminary Blood No Growth after 48 hours 06/19/22 01:31 Sputum Culture - Preliminary Sputum Assessment and Plan Plan: Altered mental status, under investigation. The exact cause is not clear. There was concern that the patient may have had a stroke as there was description of a facial droop and right arm weakness. Nevertheless, the exact timing was not accurately documented and the patient had a CAT scan of the brain and a CT angiogram that were negative and the patient did not receive any thrombolytics. Possibility of hypercapnic respiratory failure and CO2 narcosis need to be considered especially with a history of obstructive sleep apnea and narcotic intake. Her blood gas was consistent with acute respiratory acidosis in the emergency department. Currently intubated on a mechanical ventilator. Intubation was done to protect her airways . Subsequently, the patient was weaned off the mechanical ventilator. The patient was extubated yesterday and the patient is currently on 6 L of O2 nasal cannula. Neurology is on the case. EEG of the brain was showing slowing without any seizure activity. Acute on chronic hypoxic/hypercapnic respiratory failure, currently extubated 5 L of oxygen by nasal cannula sugars sugars of. History of obstructive sleep apnea History of lumbar spine surgery with multilevel fusion performed in April 2022 maintained on narcotics on outpatient basis and the patient was receiving Streeter 7.5 and her urine drug screen is positive for opiates and benzodiazepines. Diabetes mellitus COPD Previous history of CVA Severe degenerative arthritis and chronic back pain Obesity Coronary artery disease Previous history of DVT Hyperlipidemia Hypertension Colonic polyps Previous history of Covid 19 infection back in [id number] Plan DuoNeb nebulized treatments 4 times a day and when necessary Keep nothing by mouth Monitor mental status IV fluids with half normal saline at rate of 75 mL an hour neurology consultation is appreciated Avoid narcotic medications for now Continue empiric Antibiotic coverage although there is no clear indication for an underlying pneumonia Obtain a follow-up chest x-ray today ABG today to evaluate her acid-base status Heparin subcu portably prophylaxis Resume all medication including a NovoLog size, coverage We'll continue to follow
[2022-06-20] MEDS: MAGNESIUM OXIDE 400 MG TAB PO SCH (10:05)
[2022-06-20] MEDS: ASPIRIN 81 MG PO SCH (10:05)
[2022-06-20] MEDS: LORATADINE 10 MG TAB PO SCH (10:05)
[2022-06-20] MEDS: GABAPENTIN 300 MG CAP PO SCH ×3 (10:05→20:46)
[2022-06-20] MEDS: POTASSIUM CHLORIDE 10 MEQ in WATER FOR INJECTION 1 100ML.BAG IVPB SCH ×6 (10:17→21:20)
[2022-06-20] MEDS: PANTOPRAZOLE 40 MG/10 ML VIAL IVP SCH (10:17)
[2022-06-20 11:08] LABS: ABG Base Excess 2.2 mmol/L; ABG HCO3 27 mmol/L (21-25); ABG Oxygen Saturation 95.9 % (94-97); ABG PCO2 48 mmHg (35-45); ABG PH 7.37 (7.35-7.45); ABG PO2 71 mmHg (83-108); ABG TCO2 29 mmol/L (19-24); Allen Test Performed? Yes
--- NOTE | 2022-06-20 11:12 | P.PN ---
Subjective Progress Note Date: 06/20/22 The patient was extubated and the she was drowsy upon seeing your. But according to the nurse she was moving her extremities equally without any focal deficit. Objective - Vital Signs Vital signs: Vital Signs Temp 98.9 F 06/20/22 08:35 Pulse 74 06/20/22 10:00 Resp 13 06/20/22 10:00 BP 155/74 06/20/22 10:00 Pulse Ox 90 L 06/20/22 10:00 FiO2 40 06/19/22 13:00 Intake & Output 06/19/22 06/20/22 06/20/22 18:59 06:59 18:59 Intake Total 1000.000 675 150 Output Total 695 1075 225 Balance 305.000 -400 -75 Intake: IV 900 675 150 0.9 @ 75 900 675 150 Intake, IV Titration 100.000 Amount propofoL 1,000 mg In 100.000 Empty Bag 1 bag @ 15 MCG/ KG/MIN 8.287 mls/hr IV . Q12H5M [facility] Rx#:[id number] Output: Urine 695 1075 225 Other: Voiding Method Indwelling Catheter Indwelling Catheter Indwelling Catheter - Exam GENERAL: The patient is lying in bed and is not in acute distress. NEUROLOGICAL: Limited because of her condition. Higher mental function: Patient is moderate drowsiness but intermitently awakeable to voice. Is oriented to self. Is following simple commands. Cranial nerves: The pupils are round, equal and reactive to light. Could not assess visual field or EOM because of cooperation. No facial weakness. No dysarthria. Motor: The strength is 5/5 over bilateral uppers. Is moving her legs sided to side equally. Normal bulk. Cerebellum: Unable to assess. Sensation: Unable to assess light touch. Reflexes (right/left): 1+ Plantars are mute bilaterally. Some of the workup during this hospital visit consisted of: Patient is afebrile. Serum glucose is 91. Ammonia level is less than 9. Hemoglobin A1c 6.9 TSH: 0.940 Lipid panel: Triglyceride is 115, cholesterol is 216, LDL is 156 and HDL is 36. Urine drug screen is positive for opiates, tricyclic and benzoyl. Rest is noninfected and serum alcohol was less than 10 Navarro virus PCR was not detected RSV is not detected Influenza A/B PCR was not detected CT of the head is reported as no acute intracranial process or significant change from prior. CT angiography of the head and neck was reported as no evidence of dissection of the cervical internal carotid arteries or vertebral arteries or any evidence of significant stenosis at the carotid bifurcation. No evidence of high-grade stenosis or intracranial aneurysm. Multifocal patchy airspace opacity throughout the lung which may represent pulmonary edema versus pneumonia. Repeat CT head is negative CT scan of the brain. No change. 2-D echo was reported left ventricle ejection fraction 55. Moderately increased left ventricular wall thickness. Routine EEG is abnormal. The back of slowing suggestive of moderate encephalopathy. Otherwise there is no focal slowing, epileptiform discharges or seizure on the EEG. - Labs CBC & Chem 7: 06/20/22 05:37 06/20/22 05:37 Labs: Abnormal Lab Results - Last 24 Hours (Table) 06/19/22 06/19/22 06/20/22 Range/Units 16:29 17:09 05:37 RBC 3.29 L (3.80-5.40) m/uL Hgb 10.5 L (11.4-16.0) gm/dL Hct 30.7 L (34.0-46.0) % Sodium (137-145) mmol/L Potassium (3.5-5.1) mmol/L Chloride (98-107) mmol/L Glucose (74-99) mg/dL POC Glucose (mg/dL) 61 L 117 H (70-110) mg/dL Calcium (8.4-10.2) mg/dL 06/20/22 Range/Units 05:37 RBC (3.80-5.40) m/uL Hgb (11.4-16.0) gm/dL Hct (34.0-46.0) % Sodium 146 H (137-145) mmol/L Potassium 3.2 L (3.5-5.1) mmol/L Chloride 117 H (98-107) mmol/L Glucose 71 L (74-99) mg/dL POC Glucose (mg/dL) (70-110) mg/dL Calcium 8.3 L (8.4-10.2) mg/dL Microbiology - Last 24 Hours (Table) 06/19/22 01:31 Gram Stain - Preliminary Sputum Sputum Culture - Preliminary 06/17/22 14:04 Blood Culture - Preliminary Blood No Growth after 48 hours 06/17/22 14:21 Blood Culture - Preliminary Blood No Growth after 48 hours Assessment and Plan Assessment: Acute right facial droop and slurred speech (upon presentation to facility that is reported): Per ED he had ataxia of right upper. Probable ?Acute ischemic stroke vs TIA. On my examination no focal deficit Encephalopathy of unknown etiology. Possibly due to stroke versus hypercapnic respiratory failure. Also possibly due to medication effect narcotic---improving Acute hypercapneic Respiratory failure as a result patient is intubated on mechanical ventilatory History of lumbar spine surgery status post a fusion in April 2022. Diabetes mellitus History of chronic lower back pain status post lumbar fusion in April 2022 Previous history of stroke without residual weakness History of coronary artery disease She of obstructive sleep apnea Hypertension Hyperlipidemia Previous history of DVT Plan: Ordered MRI the brain to rule out any acute or subacute ischemia Continue aspirin 81 mg daily (home dose). Will consider adding Plavix 75mg daily if patient imaging reveal stroke. Patient is not on any statins since the patient has ALLERGIES to statins according to the chart. Continue neuro checks On cardiac monitoring PT OT and NURSE ESTHETICIAN are consulted Avoid any necrotic as much as possible. We'll defer the rest of the medical management to primary team For DVT prophylaxis the patient is on subcu heparin 5000 units every 8 hours The plan is discussed with the patient's nurse. Will continue to follow. Dr. Moore will start neurology service tomorrow A.M. Time with Patient: Less than 30
[2022-06-20 11:28] LABS: Glucose,Whole Blood 71 mg/dL (70-110)
[2022-06-20] MEDS ORDERED: SODIUM CHLORIDE 0.45% 1,000 ML IV SCH (11:30)
[2022-06-20] MEDS: atenoloL 50 MG TAB PO SCH ×2 (13:33→20:46)
[2022-06-20 16:43] LABS: Glucose,Whole Blood 68 mg/dL (70-110)
[2022-06-20] MEDS: DEXTROSE 50% SYRINGE 50 ML IVP PRN (16:50)
[2022-06-20] MEDS: DEXTROSE 5%-0.45% NACL 1,000 ML IV SCH (16:53)
--- NOTE | 2022-06-20 20:37 | PN ---
PROGRESS NOTE DATE OF SERVICE: 06/19/2022 SUBJECTIVE: Shalonda Smalls was examined in ICU on 06/19/2022. A 66-year-old white female. She has been extubated on 4 L of oxygen. She did not have oxygen on when I have seen her. I told her to keep her oxygen off. She had some behavioral psychotic type issues last night from maybe being hypoxemic, not keeping her oxygen on. We gave her 1 dose of Geodon, which helped her last night. She remains on broad-spectrum antibiotics for bilateral pneumonia. She has been extubated. She is alert, giving more appropriate answers. She has less slurred speech today, being evaluated for possible ischemic stroke. MRI is pending. Temp 98.3, blood pressure 140s to 160s over 70s to 80s, respiratory rate 12 to 16, pulse 70 to 75. CARDIOVASCULAR: S1, S2. LUNGS: Scattered wheeze. PSYCH: She is more clear of voice. MUSCULOSKELETAL: She can move 4 extremities. No signs of facial asymmetry. ASSESSMENT: Possible ischemic stroke versus metabolic encephalopathy due to possible aspiration pneumonia, history of chronic obstructive pulmonary disease, nicotine addiction, degenerative disk disease, obesity, multiple severe anxiety. Prognosis extremely guarded. Continue to wean off vent. Broad-spectrum antibiotics. Psych medications p.r.n. only. MMODL / IJN: [id number] /
[2022-06-20] MEDS: MONTELUKAST 10 MG TAB PO SCH (20:46)
[2022-06-21] MEDS: POTASSIUM CHLORIDE ER 20 MEQ TAB.ER PO SCH ×4 (00:17→10:00)
[2022-06-21] MEDS: HEPARIN SODIUM,PORCINE/PF 5,000 UNIT/0.5 ML SYRINGE SQ SCH ×4 (00:17→23:15)
[2022-06-21] MEDS: hydrALAZINE HCL 20 MG/ML 1 ML VIAL IVP PRN ×2 (00:32→06:37)
[2022-06-21] MEDS: DEXTROSE 5%-0.45% NACL 1,000 ML IV SCH ×2 (05:54→15:27)
[2022-06-21 06:38] LABS: Basophils % (A) 1 %; Eosinophils # (A) 0.2 k/uL (0-0.7); Eosinophils % (A) 4 %; HGB 11.2 gm/dL (11.4-16.0); Hypochromasia Slight; Lymphocytes # (A) 1.8 k/uL (1.0-4.8); Lymphocytes % (A) 32 %; MCH 31.6 pg (25.0-35.0); MCHC 33.8 g/dL (31.0-37.0); MCV 93.4 fL (80.0-100.0); Mean Platelet Volume 8.2; Monocytes # (A) 0.4 k/uL (0-1.0); Monocytes % (A) 7 %; Neutrophils # (A) 3.2 k/uL (1.3-7.7); Neutrophils % (A) 56 %; Platelet Count 199 k/uL (150-450); Poikilocytosis Slight; RBC 3.54 m/uL (3.80-5.40); RDW 14.6 % (11.5-15.5); WBC 5.7 k/uL (3.8-10.6)
[2022-06-21 06:46] LABS: Glucose,Whole Blood 103 mg/dL (70-110)
[2022-06-21 07:03] LABS: African American GFR (CKD) >90 (>60 ml/min/1.73 sqM); Anion Gap 2 mmol/L; Blood Urea Nitrogen 7 mg/dL (7-17); Calcium 8.2 mg/dL (8.4-10.2); Carbon Dioxide 27 mmol/L (22-30); Chloride 112 mmol/L (98-107); Glucose 95 mg/dL (74-99); Non-African American GFR(CKD) >90 (>60 ml/min/1.73 sqM); Potassium 3.5 mmol/L (3.5-5.1); Sodium 141 mmol/L (137-145)
[2022-06-21] MEDS: INSULIN ASPART (NovoLOG) 100 UNIT/ML VIAL SQ SCH ×3 (07:56→17:04)
[2022-06-21] MEDS: ASPIRIN 81 MG PO SCH (09:57)
[2022-06-21] MEDS: MAGNESIUM OXIDE 400 MG TAB PO SCH (09:57)
[2022-06-21] MEDS: LORATADINE 10 MG TAB PO SCH (09:57)
[2022-06-21] MEDS: PANTOPRAZOLE 40 MG/10 ML VIAL IVP SCH (09:57)
[2022-06-21] MEDS: GABAPENTIN 300 MG CAP PO SCH ×3 (09:57→23:15)
[2022-06-21] MEDS: atenoloL 50 MG TAB PO SCH ×2 (10:02→20:15)
[2022-06-21] MEDS: POTASSIUM CHLORIDE 10 MEQ in WATER FOR INJECTION 1 100ML.BAG IVPB SCH (11:08)
[2022-06-21 11:22] LABS: Glucose,Whole Blood 110 mg/dL (70-110)
[2022-06-21] MEDS ORDERED: IPRATROPIUM-ALBUTEROL 3 ML NEB INHALATION PRN (13:36)
--- NOTE | 2022-06-21 13:36 | P.PN ---
Subjective Progress Note Date: 06/21/22 Principal diagnosis: Acute on chronic hypoxic and hypercapnic respiratory failure secondary to acute exacerbation of COPD and underlying obstructive sleep apnea syndrome. Possible TIA/CVA 66-year-old female patient who came into the emergency department yesterday because of altered mental status. The patient was also having shortness of breath for the past 5 days. Apparently, her symptoms got worse on the day of admission. The patient had mild right sided facial droop per home health nurse as well as slurred speech. Symptoms started at around noon yesterday. She also had difficulties in feeding herself and she was unable to use her right hand. Based on that, the patient was brought into the emergency department. In the ED, her mentation was altered and she had an NIH of 2 and her last known mental status assessment was more than 24 hours ago. Her cardiac rhythm was sinus. Her labs are unremarkable. Urine drug screen was positive for opiates and benzodiazepines. Her Covid 19 testing flu and RSV were negative. At that point, a CAT scan of the brain was done and it showed no acute abnormalities. This was discussed with neurology after the CT angiogram. The CT angiogram showed no evidence of any dissection or any high-grade stenosis within the brai n. There was some multifocal patchy airspace opacity throughout the lungs as noted in the CT angiogram. The case was discussed with neurology. The patient was not found to be a candidate for TPA administration. While in the emergency, the patient's stroke was evaluated by our nursing staff. She was apparently following simple commands. Nevertheless, her rest or status was worse and she was having more labored breathing and air and she was quite limited bilaterally. At that point, a blood gas was done that showed a pH of 7.19 with a pCO2 of 69 and pO2 of 91. There was a concern that the patient was unable to protect her airways and for that reason the, the patient was intubated and placed on a mechanical ventilator. Post intubation chest x-ray shows adequate positioning of the orotracheal tube. The patient has also and orogastric tube in place. No significant airspace disease or opacities seen on the chest x-ray. The lung volumes are essentially small. Some limited bibasilar pulmonary infiltrates cannot be completely excluded. This morning, the patient is on propofol at 20 mg/kg/m pH is calm and comfortable and hemodynamically stable. She is on assist-control mode of mechanical ventilation at the rate of 18 with a tidal volume of 350 and FiO2 of 50% with a PEEP of 5. Most recent blood gas from this morning shows a a pH of 7.33 with a pCO2 of 47 and pO2 of 286 and this was done on FiO2 of 100% post intubation. Rest of the labs that essentially within normal limits. Her UA was positive for glucose, +2 ketones and negative for infection. Her proBNP level was 187. Troponins were all negative. WBC count was at 5.1 with a hemoglobin of 11.2. Currently on IV fluids at 20 mL an hour. Pete catheter is in place. An output is adequate.the patient also has a history of L2-L4 spondylosis with stenosis; left large any weakness; low back pain. At this point patient has failed conservative treatment measures and has opted to proceed with a elective L2-3 and L3-4 posteriolateral and interbody fusion; L2-3 and L3-4 bilateral laminectomy, complete facetectomy and foraminotomy. She has other comorbidities including coronary artery disease, diabetes mellitus, previous history of CVA which was not seen on the CAT scan of the brain, COPD, obstructive sleep apnea/asthma, previous history of DVTs and osteoarthritis. She was also infected with Covid 19 back in . On 06/19/2022, the patient is still intubated on a mechanical ventilator. Note that I give the patient agrees sedation holiday yesterday. I was informed by the nursing staff that the patient didn't arouse and she was not following any commands and she was not purposeful. At that point, the holiday was discontinued and the patient was placed again on propofol and she is currently on 45 mcg/kg/m of propofol infusion. She is resting comfortably in bed. She is on assist-control mechanical ventilation and currently she is on a rate of 16, tidal volume of 350, FiO2 of 50% and a PEEP of 5. Current pulse ox is 99%. The blood gas from today showed a pH of 7.4 with a pCO2 of 41 and pO2 111 and this was on FiO2 of 50%. Repeat chest x-ray from today shows adequate expansion of both lungs. ET tube is in a good location. Lung volumes are low and there may be some right basilar atelectasis/infiltrate. Essentially, no major interval change compared to yesterday. Meanwhile, repeat CAT scan of the brain was done yesterday and the patient was seen by neurology. CAT scan of the brain was negative and neurology consultation was appreciated and based on their opinion, the encephalopathy caused remains unclear. Stroke cannot be completely ruled out. Seizure is felt to be less likely. The patient was kept on aspirin and EEG was ordered. The echocardiogram was also completed yesterday and the patient had a preserved LV function, moderate LV wall thickness, no significant valvular abnormalities. Right ventricular systolic pressure was around 27 mmHg. Labs from today are still pending. On 06/20/2022, the patient is extubated and the patient is currently on oxygen at 4 L. we were able to gradually wean her off sedation yesterday and the patient arouse. following that, she was able to go through a small to his breathing trial and the patient was extubated to nasal cannula. she was initially confused postextubation. She was also agitated and combative. Based on that, she was given Geodon to control her agitation. This morning, she is not agitated. She has relaxed. She is answering some questions although she is not absolutely appropriate. Her breathing is nonlabored. She has a congested cough. Unable to bring up much sputum. She has a white cell count of 5.2 with a hemoglobin of 10.5 and a platelet count of 202. Sodium is at 146, BUN is at 12 with a creatinine of 0.8 and the serum bicarb is at 27. Blood cultures have been negative. Sputum cultures were negative. The patient's pro-calcitonin level was at 0.07. The chest x-ray from yesterday showed smaller lung volumes along with some atelectatic changes in lung bases bilaterally. Based on her altered mentation, the patient was seen by neurology. Their recommendations was to eggs acute and MRI of the brain at the later stage. He also made recommendations to continue aspirin. EEG was also done yesterday that showed background slowing and moderate encephalopathy. No seizure activity was noted. I think so she is on IV fluids and currently she is on normal saline at rate of 75 mL an hour. Pete catheter is in place. She has adequate urine output. Reevaluated today on 06/21/2022, patient remains in the ICU, she seems to be doing fairly well, she was extubated yesterday, she is now on 2 L nasal cannula, does not seem to be in any distress. She is not requiring any infusions. We will downgrade to transfer to a medical surgical floor, and we will continue her pre sent course of treatment/bronchodilators. And antibiotics. Chest x-ray showed bibasilar atelectasis Basic metabolic profile is normal. Sputum cultures and blood cultures are negative in the last 72 hours. She was seen by neurology on consultation for acute right facial droop and slurred speech, questioning the possibility of acute ischemic stroke or TIA. Today I did not see any neurological deficit. MRI is pending patient is mostly on aspirin as per neurology on the case Objective - Vital Signs Vital signs: Vital Signs Temp 98.7 F 06/21/22 08:00 Pulse 73 06/21/22 10:00 Resp 10 L 06/21/22 10:00 BP 139/69 06/21/22 10:00 Pulse Ox 96 06/21/22 10:00 FiO2 40 06/19/22 13:00 Intake & Output 06/20/22 06/21/22 06/21/22 18:59 06:59 18:59 Intake Total 925 1425 550 Output Total 1075 910 220 Balance -150 515 330 Weight 96.1 kg Intake: IV 925 825 310 0.9 @ 75 150 Dextrose 5%-0.45% NaCl 1, 225 825 300 000 ml @ 75 mls/hr IV . [id number] [facility] Rx#:[id number] Invasive Line 4 10 Potassium Chloride 10 meq 400 In Water For Injection 1 100ml.bag @ 100 mls/hr IVPB Q1HR [facility] Rx#: [id number] Sodium Chloride 0.45% 1, 150 000 ml @ 75 mls/hr IV . [id number] [facility] Rx#:[id number] Oral 600 240 Output: Urine 1075 910 220 Other: Voiding Method Indwelling Catheter Indwelling Catheter Indwelling Catheter - Exam Physical Exam: Revealed a 66-year-old female in no distress, on 2 L nasal cannula. Head: Atraumatic, normocephalic. HEENT:[Neck is supple.] [No neck masses.] [No thyromegaly.] [No JVD.] Chest: Diminished breath sounds at the bases no crackles or rhonchi or wheezes. Cardiac Exam: [Normal S1 and S2, no S3 gallop, no murmur.] Abdomen: [Soft, nontender, no megaly, no rebound, no guarding, normal bowel sounds.] Extremities: [No clubbing, no edema, no cyanosis.] Neurological Exam: [No focal neurologic deficit.] Alert and oriented 3. Psychiatric: Normal mood affect and normal mental status examination. Skin: No rashes - Labs CBC & Chem 7: 06/21/22 06:11 06/21/22 12:44 Labs: Abnormal Lab Results - Last 24 Hours (Table) 06/20/22 06/21/22 06/21/22 Range/Units 16:42 06:11 06:11 RBC 3.54 L (3.80-5.40) m/uL Hgb 11.2 L (11.4-16.0) gm/dL Hct 33.0 L (34.0-46.0) % Chloride 112 H (98-107) mmol/L POC Glucose (mg/dL) 68 L (70-110) mg/dL Calcium 8.2 L (8.4-10.2) mg/dL Microbiology - Last 24 Hours (Table) 06/17/22 14:04 Blood Culture - Preliminary Blood No Growth after 72 hours 06/17/22 14:21 Blood Culture - Preliminary Blood No Growth after 72 hours 06/19/22 01:31 Gram Stain - Preliminary Sputum Sputum Culture - Preliminary Assessment and Plan Assessment: Impression: Acute mental status change, possible acute ischemic CVA or TIA workup is in progress, neurologic findings have resolved, patient is scheduled to have an MRI, and she is being followed by neurology. Acute on chronic hypoxic respiratory failure with history of underlying COPD, suspect acute exacerbation of COPD patient was extubated yesterday uneventfully. History of obstructive sleep apnea syndrome Previous history of CVA Degenerative joint disease History of DVT Coronary arteriosclerosis Benign essential hypertension History of colonic polyps Positive drug screen on admission for opiates, benzodiazepines, and Tri-Cycllics Doubt bacterial pneumonia since pro calcitonin level on admission was 0.07 Recommendation: Continue present supportive care measures Continue incentive spirometry Continue GI and DVT prophylaxis Transfer patient out of the ICU to regular medical floor Neurology is considering MRI to be done today. Continue updrafts Discontinue antibiotics We will continue to follow Time with Patient: Less than 30
[2022-06-21] MEDS ORDERED: diazePAM 5 MG TAB PO ONE (16:00)
[2022-06-21 17:01] LABS: Glucose,Whole Blood 121 mg/dL (70-110)
--- NOTE | 2022-06-21 17:30 | MR ---
EXAMINATION TYPE: MR brain wo/w con DATE OF EXAM: 06/21/2022 COMPARISON: 02/03/2021 HISTORY: weakness right upper. stroke. CONTRAST: Standard multiplanar, multisequence MRI departmental protocol images were obtained without contrast a nd with 9.5 mL intravenous Gadavist gadolinium contrast. There is some cerebral cortical atrophy. There is no mass effect or midline shift. Diffusion images s how no acute infarct. There is some diffuse increased signal in the white matter of both cerebral hem ispheres on the FLAIR images. The brainstem is intact. No evidence of orbital mass. The sella turcica is normal. Corpus callosum is intact. There is normal enhancement of the venous sinuses. There is no pathologic enhancement IMPRESSION: Cerebral atrophy. White matter bilateral increased signal on the FLAIR images could relate to some mi crovascular ischemia and appears increased compared to old exam. No evidence of cortical infarct.
--- NOTE | 2022-06-21 18:41 | P.PN ---
Subjective Progress Note Date: 06/21/22 Patient initially seen by Dr. Matt Chavarria. Please refer to his note for details. Patient is a 66-year-old female, who has reported right facial droop, slurred speech and right upper extremity. Neurology was consulted rule out CVA. Patient is alert and awake. No distress. Her voice is slightly hoarse. Denies any headache. Serum glucose is 91. Ammonia level is less than 9. Hemoglobin A1c 6.9 TSH: 0.940 Lipid panel: Triglyceride is 115, cholesterol is 216, LDL is 156 and HDL is 36. Urine drug screen is positive for opiates, tricyclic and benzoyl. Rest is noninfected and serum alcohol was less than 10 Navarro virus PCR was not detected RSV is not detected Influenza A/B PCR was not detected CT of the head is reported as no acute intracranial process or significant change from prior. CT angiography of the head and neck was reported as no evidence of dissection of the cervical internal carotid arteries or vertebral arteries or any evidence of significant stenosis at the carotid bifurcation. No evidence of high-grade stenosis or intracranial aneurysm. Multifocal patchy airspace opacity t hroughout the lung which may represent pulmonary edema versus pneumonia. Repeat CT head is negative CT scan of the brain. No change. 2-D echo was reported left ventricle ejection fraction 55. Moderately increased left ventricular wall thickness. Left atrial size is normal. No obvious regional wall motion abnormalities. Routine EEG is abnormal. The back of slowing suggestive of moderate enceph alopathy. Otherwise there is no focal slowing, epileptiform discharges or seizure on the EEG. Objective - Vital Signs Vital signs: Vital Signs Temp 98.2 F 06/21/22 14:00 Pulse 77 06/21/22 14:00 Resp 18 06/21/22 14:00 BP 135/68 06/21/22 14:00 Pulse Ox 96 06/21/22 14:00 FiO2 40 06/19/22 13:00 Intake & Output 06/20/22 06/21/22 06/21/22 18:59 06:59 18:59 Intake Total 925 1425 790 Output Total 1075 910 220 Balance -150 515 570 Weight 96.1 kg Intake: IV 925 825 310 0.9 @ 75 150 Dextrose 5%-0.45% NaCl 1, 225 825 300 000 ml @ 75 mls/hr IV . [id number] [facility] Rx#:[id number] Invasive Line 4 10 Potassium Chloride 10 meq 400 In Water For Injection 1 100ml.bag @ 100 mls/hr IVPB Q1HR [facility] Rx#: [id number] Sodium Chloride 0.45% 1, 150 000 ml @ 75 mls/hr IV . [id number] [facility] Rx#:[id number] Oral 600 480 Output: Urine 1075 910 220 Other: Voiding Method Indwelling Catheter Indwelling Catheter Indwelling Catheter - Exam Patient is alert and awake. Speech is slightly hoarse, but no aphasia or dysarthria. No paraphasic errors. Patient knows it is June 2022 and that she is in [facility]. Cranial nerves significant for pupils equal round and reacting, visual rowe are full, extraocular muscles intact, face is symmetric and tongue protrudes the midline. Muscle strength is normal in the arms and legs, except left foot drop, which is related to her previous back surgery one year ago. She uses AFO. Sensations are equal. - Labs CBC & Chem 7: 06/21/22 06:11 06/21/22 12:44 Labs: Abnormal Lab Results - Last 24 Hours (Table) 06/21/22 06/21/22 06/21/22 Range/Units 06:11 06:11 17:00 RBC 3.54 L (3.80-5.40) m/uL Hgb 11.2 L (11.4-16.0) gm/dL Hct 33.0 L (34.0-46.0) % Chloride 112 H (98-107) mmol/L POC Glucose (mg/dL) 121 H (70-110) mg/dL Calcium 8.2 L (8.4-10.2) mg/dL Microbiology - Last 24 Hours (Table) 06/17/22 14:04 Blood Culture - Preliminary Blood No Growth after 96 hours 06/17/22 14:21 Blood Culture - Preliminary Blood No Growth after 96 hours 06/19/22 01:31 Gram Stain - Final Sputum Sputum Culture - Final Assessment and Plan Assessment: Possible TIA manifesting with acute right facial droop and slurred speech (upon presentation to facility that is reported): Per ED she had ataxia of right upper. MRI of the brain negative for any acute stroke. Encephalopathy of unknown etiology. Possibly due to stroke versus hypercapnic respiratory failure. Also possibly due to medication effect raji cotic---improving Acute hypercapneic Respiratory failure as a result patient is intubated on mechanical ventilatory History of lumbar spine surgery status post a fusion in April 2022. Diabetes mellitus History of chronic lower back pain status post lumbar fusion in April 2022 Previous history of stroke without residual weakness History of coronary artery disease She of obstructive sleep apnea Hypertension Hyperlipidemia Previous history of DVT History of left footdrop related to previous back surgery. Plan: MRI the brain showed no acute ischemic process. Revealed cerebral atrophy and white matter bilateral increased signal on FLAIR images could relate to some microvascular ischemia and appears increased compared to old exam. I personally reviewed MRI, I agree with the findings. Suggest switching from aspirin to Plavix, as patient has a possible TIA while on aspirin 81 mg daily (home dose). Patient does have multiple vascular risk fa ctors as mentioned below. Patient to be placed on DAP for 21 days, then stop aspirin and continue Plavix indefinitely. Lipid panel with cholesterol 216, LDL 156, HDL 36 and triglycerides 115. Patient does have hyperlipidemia. Patient is not on any statins since the patient has ALLERGIES to statins according to the chart. Hemoglobin A1c 6.9 Continue neuro checks On cardiac monitoring PT OT and PACK OPERATOR are consulted Avoid any narcotic as much as possible. We'll defer the rest of the medical management to primary team For DVT prophylaxis the patient is on subcu heparin 5000 units every 8 hours Neurologically, no other workup indicated. Neurologically clear.
[2022-06-21] MEDS: MONTELUKAST 10 MG TAB PO SCH (20:15)
[2022-06-21 21:00] LABS: Glucose,Whole Blood 142 mg/dL (70-110)
--- NOTE | 2022-06-22 03:16 | PN ---
PROGRESS NOTE The patient had a brain MRI today. We are awaiting report. . She is admitted with hypoxemic respiratory failure, has been weaned off the vent. She is extubated. She has given the appropriate answers last night and today. She has some mild right facial droop and slurred speech. MRI is pending. Vital signs were reviewed. She is weaning oxygen as tolerated. She gets a little of dementia type of psychotic behavior at night, Ativan helps with this as well as possibly some Geodon. Her breathing is improving daily. Speech improving daily. White count is 5.7, hemoglobin 11.2. ASSESSMENT: Acute mental status changes, possible acute ischemic cerebrovascular accident, transient ischemic attack, chronic obstructive pulmonary disease exacerbation, sleep apnea, cerebrovascular accident, degenerative joint disease, history of deep venous thrombosis, coronary arthrosclerosis, benign essential hypertension, history of colon polyps. Wean oxygen as tolerated. Waiting for MRI. Prognosis guarded. Please see further orders. MMODL / IJN: [id number] /
[2022-06-22 07:10] LABS: Glucose,Whole Blood 111 mg/dL (70-110)
[2022-06-22] MEDS: INSULIN ASPART (NovoLOG) 100 UNIT/ML VIAL SQ SCH ×3 (07:57→17:08)
[2022-06-22] MEDS: HEPARIN SODIUM,PORCINE/PF 5,000 UNIT/0.5 ML SYRINGE SQ SCH ×3 (09:00→23:48)
[2022-06-22] MEDS: hydrALAZINE HCL 20 MG/ML 1 ML VIAL IVP PRN (09:00)
[2022-06-22] MEDS: PANTOPRAZOLE 40 MG/10 ML VIAL IVP SCH (09:01)
[2022-06-22] MEDS: GABAPENTIN 300 MG CAP PO SCH ×3 (09:01→21:07)
[2022-06-22] MEDS: LORATADINE 10 MG TAB PO SCH (09:01)
[2022-06-22] MEDS: MAGNESIUM OXIDE 400 MG TAB PO SCH (09:01)
[2022-06-22] MEDS: atenoloL 50 MG TAB PO SCH ×2 (09:01→21:08)
[2022-06-22] MEDS: ASPIRIN 81 MG PO SCH (09:01)
[2022-06-22 11:11] LABS: Glucose,Whole Blood 118 mg/dL (70-110)
[2022-06-22] MEDS: CLOPIDOGREL 75 MG TAB PO SCH (12:56)
--- NOTE | 2022-06-22 13:01 | P.PN ---
Subjective Progress Note Date: 06/22/22 Principal diagnosis: altered mental status, acute on chronic hypoxic hypercapnic respiratory failure, COPD exacerbation, possible TIA 66-year-old female patient who came into the emergency department yesterday because of altered mental status. The patient was also having shortness of breath for the past 5 days. Apparently, her symptoms got worse on the day of admission. The patient had mild right sided facial droop per home health nurse as well as slurred speech. Symptoms started at around noon yesterday. She also had difficulties in feeding herself and she was unable to use her right hand. Based on that, the patient was brought into the emergency department. In the ED, her mentation was altered and she had an NIH of 2 and her last known mental status assessment was more than 24 hours ago. Her cardiac rhythm was sinus. Her labs are unremarkable. Urine drug screen was positive for opiates and benzodiazepines. Her Covid 19 testing flu and RSV were negative. At that point, a CAT scan of the brain was done and it showed no acute abnormalities. This was discussed with neurology after the CT angiogram. The CT angiogram showed no evidence of any dissection or any high-grade stenosis within the brain. There was some multifocal patchy airspace opacity throughout the lungs as noted in the CT angiogram. The case was discussed with neurology. The patie nt was not found to be a candidate for TPA administration. While in the emergency, the patient's stroke was evaluated by our nursing staff. She was apparently following simple commands. Nevertheless, her rest or status was worse and she was having more labored breathing and air and she was quite limited bilaterally. At that point, a blood gas was done that showed a pH of 7.19 with a pCO2 of 69 and pO2 of 91. There was a concern that the patient was unable to protect her airways and for that reason the, the patient was intubated and placed on a mechanical ventilator. Post intubation chest x-ray shows adequate positioning of the orotracheal tube. The patient has also and orogastric tube in place. No significant airspace disease or opacities seen on the chest x-ray. The lung volumes are essentially small. Some limited bibasilar pulmonary infiltrates cannot be completely excluded. This morning, the patient is on propofol at 20 mg/kg/m pH is calm and comfortable and hemodynamically stable. She is on assist-control mode of mechanical ventilation at the rate of 18 with a tidal volume of 350 and FiO2 of 50% with a PEEP of 5. Most recent blood gas from this morning shows a a pH of 7.33 with a pCO2 of 47 and pO2 of 286 and this was done on FiO2 of 100% post intubation. Rest of the labs that essentially within normal limits. Her UA was positive for glucose, +2 ketones and negative for infection. Her proBNP level was 187. Troponins were all negative. WBC count was at 5.1 with a hemoglobin of 11.2. Currently on IV fluids at 20 mL an hour. Pete catheter is in place. An output is adequate.the patient also has a history of L2-L4 spondylosis with stenosis; left large any weakness; low back pain. At this point patient has failed conservative treatment measures and has opted to proceed with a elective L2-3 and L3-4 posteriolateral and interbody fusion; L2-3 and L3-4 bilateral laminectomy, complete facetectomy and foraminotomy. She has other comorbidities including coronary artery disease, diabetes mellitus, previous history of CVA which was not seen on the CAT scan of the brain, COPD, obstructive sleep apnea/asthma, previous history of DVTs and osteoarthritis. She was also infected with Covid 19 back in . On 06/19/2022, the patient is still intubated on a mechanical ventilator. Note that I give the patient agrees sedation holiday yesterday. I was informed by the nursing staff that the patient didn't arouse and she was not following any commands and she was not purposeful. At that point, the holiday was discontinued and the patient was placed again on propofol and she is currently on 45 mcg/kg/m of propofol infusion. She is resting comfortably in bed. She is on assist-control mechanical ventilation and currently she is on a rate of 16, tidal volume of 350, FiO2 of 50% and a PEEP of 5. Current pulse ox is 99%. The blood gas from today showed a pH of 7.4 with a pCO2 of 41 and pO2 111 and this was on FiO2 of 50%. Repeat chest x-ray from today shows adequate expansion of both lungs. ET tube is in a good location. Lung volumes are low and there may be some right basilar atelectasis/infiltrate. Essentially, no major interval change compared to yesterday. Meanwhile, repeat CAT scan of the brain was done yesterday and the patient was seen by neurology. CAT scan of the brain was negative and neurology consultation was appreciated and based on their opinion, the encephalopathy caused remains unclear. Stroke cannot be completely ruled out. Seizure is felt to be less likely. The patient was kept on aspirin and EEG was ordered. The echocardiogram was also completed yesterday and the patient had a preserved LV function, moderate LV wall thickness, no significant valvular abnormalities. Right ventricular systolic pressure was around 27 mmHg. Labs from today are still pending. On 06/20/2022, the patient is extubated and the patient is currently on oxygen at 4 L. we were able to gradually wean her off sedation yesterday and the patient arouse. following that, she was able to go through a small to his br eathing trial and the patient was extubated to nasal cannula. she was initially confused postextubation. She was also agitated and combative. Based on that, she was given Geodon to control her agitation. This morning, she is not agitated. She has relaxed. She is answering some questions although she is not absolutely appropriate. Her breathing is nonlabored. She has a congested cough. Unable to bring up much sputum. She has a white cell count of 5.2 with a hemoglobin of 10.5 and a platelet count of 202. Sodium is at 146, BUN is at 12 with a creatinine of 0.8 and the serum bicarb is at 27. Blood cultures have been negative. Sputum cultures were negative. The patient's pro-calcitonin level was at 0.07. The chest x-ray from yesterday showed smaller lung volumes along with some atelectatic changes in lung bases bilaterally. Based on her altered mentation, the patient was seen by neurology. Their recommendations was to eggs acute and MRI of the brain at the later stage. He also made recommendations to continue aspirin. EEG was also done yesterday that showed background slowing and moderate encephalopathy. No seizure activity was noted. I think so she is on IV fluids and currently she is on normal saline at rate of 75 mL an hour. Pete catheter is in place. She has adequate urine output. Reevaluated today on 06/21/2022, patient remains in the ICU, she seems to be doing fairly well, she was extubated yesterday, she is now on 2 L nasal cannula, does not seem to be in any distress. She is not requiring any infusions. We will downgrade to transfer to a medical surgical floor, and we will continue her present course of treatment/bronchodilators. And antibiotics. Chest x-ray showed bibasilar atelectasis Basic metabolic profile is normal. Sputum cultures and blood cultures are negative in the last 72 hours. She was seen by neurology on consultation for acute right facial droop and slurred speech, questioning the possibility of acute ischemic stroke or TIA. Today I did not see any neurological deficit. MRI is pending patient is mostly on aspirin as per neurology on the case I'm evaluating this patient today on 06/22/2022 on a general medical floor. Patient is sitting up in bed, in no acute distress, on 2 L nasal cannula. She is still confused. MRI of the brain from yesterday showed some cerebral atrophy with the white matter bilaterally increased on the FLAIR images which could relate to some microvascular ischemia and appears increased compared to old exam. There is no evidence of cortical infarct. No new chest x-ray to review today. Patient's CBC from yesterday shows a WBC count of 5.7, hemoglobin 11.2, hematocrit 33, platelets 199,000. BMP from yesterday was stable with a sodium of 141, potassium 4.2, chloride 112, serum CO2 27, BUN 7, creatinine 0.67, glucose 95. Patient has completed her course of Rocephin and remains afebrile. She has not required any when necessary narcotics since June 17. She is maintained on DuoNeb inhalation and Singulair. She is receiving Protonix for GI prophylaxis and heparin for DVT prophylaxis. Vital signs remained hemodynamically stable. Objective - Vital Signs Vital signs: Vital Signs Temp 97.3 F L 06/22/22 07:10 Pulse 73 06/22/22 08:20 Resp 20 06/22/22 08:20 BP 188/79 06/22/22 07:10 Pulse Ox 97 06/22/22 07:10 FiO2 40 06/19/22 13:00 Intake & Output 06/21/22 06/22/22 06/22/22 18:59 06:59 18:59 Intake Total 790 Output Total 220 1200 Balance 570 -1200 Weight 96.1 kg Intake: IV 310 Dextrose 5%-0.45% NaCl 1, 300 000 ml @ 75 mls/hr IV . [id number] AMPARO Rx#:[id number] Invasive Line 4 10 Oral 480 Output: Urine 220 1200 Other: Voiding Method Indwelling Catheter Indwelling Catheter Indwelling Catheter # Bowel Movements 1 - Exam Physical Exam: Revealed a 66-year-old female in no distress, on 2 L nasal cannula. Head: Atraumatic, normocephalic. HEENT:[Neck is supple.] [No neck masses.] [No thyromegaly.] [No JVD.] Chest: Diminished breath sounds at the bases no crackles or rhonchi or wheezes. No conversational dyspnea or accessory muscle use Cardiac Exam: [Normal S1 and S2, no S3 gallop, no murmur.] Abdomen: [Soft, nontender, no megaly, no rebound, no guarding, normal bowel sounds.] Extremities: [No clubbing, no edema, no cyanosis.] Neurological Exam: She continues to have some short-term memory loss Psychiatric: Normal mood affect and normal mental status examination. Skin: No rashes - Labs CBC & Chem 7: 06/21/22 06:11 06/21/22 12:44 Labs: Abnormal Lab Results - Last 24 Hours (Table) 06/21/22 06/21/22 06/22/22 Range/Units 17:00 20:55 07:08 POC Glucose (mg/dL) 121 H 142 H 111 H (70-110) mg/dL 06/22/22 Range/Units 11:10 POC Glucose (mg/dL) 118 H (70-110) mg/dL Microbiology - Last 24 Hours (Table) 06/17/22 14:04 Blood Culture - Preliminary Blood No Growth after 96 hours 06/17/22 14:21 Blood Culture - Preliminary Blood No Growth after 96 hours 06/19/22 01:31 Gram Stain - Final Sputum Sputum Culture - Final Assessment and Plan Assessment: Acute mental status change, possible acute ischemic CVA or TIA workup is in progress, neurologic findings have resolved, patient is scheduled to have an MRI, and she is being followed by neurology. Acute on chronic hypoxic respiratory failure with history of underlying COPD, suspect acute exacerbation of COPD patient was extubated June 19, uneventfully. On 2 L nasal cannula. History of obstructive sleep apnea syndrome Previous history of CVA Degenerative joint disease History of DVT Coronary arteriosclerosis Benign essential hypertension History of colonic polyps Positive drug screen on admission for opiates, benzodiazepines, and Tri-Cycllics Doubt bacterial pneumonia since pro calcitonin level on admission was 0.07 Plan: Patient's medications, labs were reviewed Continue supplemental oxygen to maintain attention saturation 92% or greater Continue to encourage incentive spirometer Continue GI and DVT prophylaxis Neurology is following Continue DuoNeb inhalations He will continue to follow I have personally seen and examined the patient, performed the documentation and the assessment and plan as written. Number of minutes spent on the visit: 10 Time with Patient: Less than 30
[2022-06-22 17:08] LABS: Glucose,Whole Blood 146 mg/dL (70-110)
[2022-06-22 20:13] LABS: Glucose,Whole Blood 150 mg/dL (70-110)
[2022-06-22] MEDS: MONTELUKAST 10 MG TAB PO SCH (21:08)
[2022-06-23 07:23] LABS: Glucose,Whole Blood 130 mg/dL (70-110)
[2022-06-23] MEDS: INSULIN ASPART (NovoLOG) 100 UNIT/ML VIAL SQ SCH ×3 (07:34→17:46)
[2022-06-23] MEDS: atenoloL 50 MG TAB PO SCH ×2 (08:03→21:11)
[2022-06-23] MEDS: MAGNESIUM OXIDE 400 MG TAB PO SCH (08:03)
[2022-06-23] MEDS: PANTOPRAZOLE 40 MG/10 ML VIAL IVP SCH (08:03)
[2022-06-23] MEDS: LORATADINE 10 MG TAB PO SCH (08:03)
[2022-06-23] MEDS: HEPARIN SODIUM,PORCINE/PF 5,000 UNIT/0.5 ML SYRINGE SQ SCH ×3 (08:04→23:37)
[2022-06-23] MEDS: GABAPENTIN 300 MG CAP PO SCH ×3 (08:04→21:11)
[2022-06-23] MEDS: CLOPIDOGREL 75 MG TAB PO SCH (08:04)
[2022-06-23] MEDS: ASPIRIN 81 MG PO SCH (08:04)
[2022-06-23 10:36] VITALS: BMI 34.2
[2022-06-23 11:27] LABS: Glucose,Whole Blood 160 mg/dL (70-110)
--- NOTE | 2022-06-23 12:25 | P.PN ---
Subjective Progress Note Date: 06/22/22 06/22/2021: Patient is laying comfortably in the bed. Offers no complaints. 06/21/2021: Patient initially seen by Dr. Matt Chavarria. Please refer to his note for details. Patient is a 66-year-old female, who has reported right facial droop, slurred speech and right upper extremity. Neurology was consulted rule out CVA. Patient is alert and awake. No distress. Her voice is slightly hoarse. Denies any headache. Serum glucose is 91. Ammonia level is less than 9. Hemoglobin A1c 6.9 TSH: 0.940 Lipid panel: Triglyceride is 115, cholesterol is 216, LDL is 156 and HDL is 36. Urine drug screen is positive for opiates, tricyclic and benzoyl. Rest is noninfected and serum alcohol was less than 10 Navarro virus PCR was not detected RSV is not detected Influenza A/B PCR was not detected CT of the head is reported as no acute intracranial process or significant change from prior. CT angiography of the head and neck was reported as no evidence of dissection of the cervical internal carotid arteries or vertebral arteries or any evidence of significant stenosis at the carotid bifurcation. No evidence of high-grade stenosis or intracranial aneurysm. Multifocal patchy airspace opacity throughout the lung which may represent pulmonary edema versus pneumonia. Repeat CT head is negative CT scan of the brain. No change. 2-D echo was reported left ventricle ejection fraction 55. Moderately increased left ventricular wall thickness. Left atrial size is normal. No obvious regional wall motion abnormalities. Routine EEG is abnormal. The back of slowing suggestive of moderate encephalopathy. Otherwise there is no focal slowing, epileptiform discharges or seizure on the EEG. Objective - Vital Signs Vital signs: Vital Signs Temp 98.4 F 06/22/22 12:57 Pulse 71 06/22/22 12:57 Resp 18 06/22/22 12:57 BP 131/77 06/22/22 12:57 Pulse Ox 95 06/22/22 12:57 FiO2 40 06/19/22 13:00 Intake & Output 06/21/22 06/22/22 06/22/22 18:59 06:59 18:59 Intake Total 790 Output Total 220 1200 700 Balance 570 -1200 -700 Weight 96.1 kg Intake: IV 310 Dextrose 5%-0.45% NaCl 1, 300 000 ml @ 75 mls/hr IV . [id number] AMPARO Rx#:[id number] Invasive Line 4 10 Oral 480 Output: Urine 220 1200 700 Other: Voiding Method Indwelling Catheter Indwelling Catheter Indwelling Catheter # Bowel Movements 1 - Exam Patient is alert and awake. Speech is slightly hoarse, but no aphasia or dysarthria. No paraphasic errors. Patient knows it is June 2022 and that she is in [facility]. Cranial nerves significant for pupils equal round and reacting, visual rowe are full, extraocular muscles intact, face is symmetric and tongue protrudes the midline. Muscle strength is normal in the arms and legs, except left foot drop, which is related to her previous back surgery one year ago. She uses AFO. Sensations are equal. - Labs CBC & Chem 7: 06/21/22 06:11 06/21/22 12:44 Labs: Abnormal Lab Results - Last 24 Hours (Table) 06/21/22 06/22/22 06/22/22 Range/Units 20:55 07:08 11:10 POC Glucose (mg/dL) 142 H 111 H 118 H (70-110) mg/dL 06/22/22 Range/Units 17:05 POC Glucose (mg/dL) 146 H (70-110) mg/dL Microbiology - Last 24 Hours (Table) 06/17/22 14:21 Blood Culture - Preliminary Blood No Growth after 120 hours 06/17/22 14:04 Blood Culture - Preliminary Blood No Growth after 120 hours 06/19/22 01:31 Gram Stain - Final Sputum Sputum Culture - Final Assessment and Plan Assessment: Possible TIA manifesting with acute right facial droop and slurred speech (upon presentation to facility that is reported): Per ED she had ataxia of right upper. MRI of the brain negative for any acute stroke. Encephalopathy of unknown etiology. Possibly due to hypercapnic respiratory failure. Also possibly due to medication effect narcotic---improving Acute hypercapneic Respiratory failure. Status post extubation 06/19/2022. History of lumbar spine surgery status post a fusion in April 2022. Diabetes mellitus History of chronic lower back pain status post lumbar fusion in April 2022 Previous history of stroke without residual weakness History of coronary artery disease She of obstructive sleep apnea Hypertension Hyperlipidemia Previous history of DVT History of left footdrop related to previous back surgery. Plan: MRI the brain showed no acute ischemic process. Revealed cerebral atrophy and white matter bilateral increased signal on FLAIR images could relate to some microvascular ischemia and appears increased compared to old exam. I personally reviewed MRI, I agree with the findings. Suggest switching from aspirin to Plavix, as patient has a possible TIA while on aspirin 81 mg daily (home dose). Patient does have multiple vascular risk factors as mentioned below. Patient to be placed on DAPT for 21 days, then stop aspirin and continue Plavix indefinitely. Lipid panel with cholesterol 216, LDL 156, HDL 36 and triglycerides 115. Kayleigh ent does have hyperlipidemia. Patient is not on any statins since the patient has ALLERGIES to statins according to the chart. Hemoglobin A1c 6.9 Continue neuro checks PT OT and DRYING MACHINE BACK TENDER are consulted Avoid any narcotic as much as possible. We'll defer the rest of the medical management to primary team For DVT prophylaxis the patient is on subcu heparin 5000 units every 8 hours Neurologically, no other workup indicated. Neurologically clear.
--- NOTE | 2022-06-23 13:04 | P.PN ---
Subjective Progress Note Date: 06/23/22 Principal diagnosis: altered mental status, acute on chronic hypoxic hypercapnic respiratory failure, COPD exacerbation, possible TIA 66-year-old female patient who came into the emergency department yesterday because of altered mental status. The patient was also having shortness of breath for the past 5 days. Apparently, her symptoms got worse on the day of admission. The patient had mild right sided facial droop per home health nurse as well as slurred speech. Symptoms started at around noon yesterday. She also had difficulties in feeding herself and she was unable to use her right hand. Based on that, the patient was brought into the emergency department. In the ED, her mentation was altered and she had an NIH of 2 and her last known mental status assessment was more than 24 hours ago. Her cardiac rhythm was sinus. Her labs are unremarkable. Urine drug screen was positive for opiates and benzodiazepines. Her Covid 19 testing flu and RSV were negative. At that point, a CAT scan of the brain was done and it showed no acute abnormalities. This was discussed with neurology after the CT angiogram. The CT angiogram showed no evidence of any dissection or any high-grade stenosis within the brain. There was some multifocal patchy airspace opacity throughout the lungs as noted in the CT angiogram. The case was discussed with neurology. The patie nt was not found to be a candidate for TPA administration. While in the emergency, the patient's stroke was evaluated by our nursing staff. She was apparently following simple commands. Nevertheless, her rest or status was worse and she was having more labored breathing and air and she was quite limited bilaterally. At that point, a blood gas was done that showed a pH of 7.19 with a pCO2 of 69 and pO2 of 91. There was a concern that the patient was unable to protect her airways and for that reason the, the patient was intubated and placed on a mechanical ventilator. Post intubation chest x-ray shows adequate positioning of the orotracheal tube. The patient has also and orogastric tube in place. No significant airspace disease or opacities seen on the chest x-ray. The lung volumes are essentially small. Some limited bibasilar pulmonary infiltrates cannot be completely excluded. This morning, the patient is on propofol at 20 mg/kg/m pH is calm and comfortable and hemodynamically stable. She is on assist-control mode of mechanical ventilation at the rate of 18 with a tidal volume of 350 and FiO2 of 50% with a PEEP of 5. Most recent blood gas from this morning shows a a pH of 7.33 with a pCO2 of 47 and pO2 of 286 and this was done on FiO2 of 100% post intubation. Rest of the labs that essentially within normal limits. Her UA was positive for glucose, +2 ketones and negative for infection. Her proBNP level was 187. Troponins were all negative. WBC count was at 5.1 with a hemoglobin of 11.2. Currently on IV fluids at 20 mL an hour. Pete catheter is in place. An output is adequate.the patient also has a history of L2-L4 spondylosis with stenosis; left large any weakness; low back pain. At this point patient has failed conservative treatment measures and has opted to proceed with a elective L2-3 and L3-4 posteriolateral and interbody fusion; L2-3 and L3-4 bilateral laminectomy, complete facetectomy and foraminotomy. She has other comorbidities including coronary artery disease, diabetes mellitus, previous history of CVA which was not seen on the CAT scan of the brain, COPD, obstructive sleep apnea/asthma, previous history of DVTs and osteoarthritis. She was also infected with Covid 19 back in . On 06/19/2022, the patient is still intubated on a mechanical ventilator. Note that I give the patient agrees sedation holiday yesterday. I was informed by the nursing staff that the patient didn't arouse and she was not following any commands and she was not purposeful. At that point, the holiday was discontinued and the patient was placed again on propofol and she is currently on 45 mcg/kg/m of propofol infusion. She is resting comfortably in bed. She is on assist-control mechanical ventilation and currently she is on a rate of 16, tidal volume of 350, FiO2 of 50% and a PEEP of 5. Current pulse ox is 99%. The blood gas from today showed a pH of 7.4 with a pCO2 of 41 and pO2 111 and this was on FiO2 of 50%. Repeat chest x-ray from today shows adequate expansion of both lungs. ET tube is in a good location. Lung volumes are low and there may be some right basilar atelectasis/infiltrate. Essentially, no major interval change compared to yesterday. Meanwhile, repeat CAT scan of the brain was done yesterday and the patient was seen by neurology. CAT scan of the brain was negative and neurology consultation was appreciated and based on their opinion, the encephalopathy caused remains unclear. Stroke cannot be completely ruled out. Seizure is felt to be less likely. The patient was kept on aspirin and EEG was ordered. The echocardiogram was also completed yesterday and the patient had a preserved LV function, moderate LV wall thickness, no significant valvular abnormalities. Right ventricular systolic pressure was around 27 mmHg. Labs from today are still pending. On 06/20/2022, the patient is extubated and the patient is currently on oxygen at 4 L. we were able to gradually wean her off sedation yesterday and the patient arouse. following that, she was able to go through a small to his br eathing trial and the patient was extubated to nasal cannula. she was initially confused postextubation. She was also agitated and combative. Based on that, she was given Geodon to control her agitation. This morning, she is not agitated. She has relaxed. She is answering some questions although she is not absolutely appropriate. Her breathing is nonlabored. She has a congested cough. Unable to bring up much sputum. She has a white cell count of 5.2 with a hemoglobin of 10.5 and a platelet count of 202. Sodium is at 146, BUN is at 12 with a creatinine of 0.8 and the serum bicarb is at 27. Blood cultures have been negative. Sputum cultures were negative. The patient's pro-calcitonin level was at 0.07. The chest x-ray from yesterday showed smaller lung volumes along with some atelectatic changes in lung bases bilaterally. Based on her altered mentation, the patient was seen by neurology. Their recommendations was to eggs acute and MRI of the brain at the later stage. He also made recommendations to continue aspirin. EEG was also done yesterday that showed background slowing and moderate encephalopathy. No seizure activity was noted. I think so she is on IV fluids and currently she is on normal saline at rate of 75 mL an hour. Pete catheter is in place. She has adequate urine output. Reevaluated today on 06/21/2022, patient remains in the ICU, she seems to be doing fairly well, she was extubated yesterday, she is now on 2 L nasal cannula, does not seem to be in any distress. She is not requiring any infusions. We will downgrade to transfer to a medical surgical floor, and we will continue her present course of treatment/bronchodilators. And antibiotics. Chest x-ray showed bibasilar atelectasis Basic metabolic profile is normal. Sputum cultures and blood cultures are negative in the last 72 hours. She was seen by neurology on consultation for acute right facial droop and slurred speech, questioning the possibility of acute ischemic stroke or TIA. Today I did not see any neurological deficit. MRI is pending patient is mostly on aspirin as per neurology on the case I'm evaluating this patient today on 06/22/2022 on a general medical floor. Patient is sitting up in bed, in no acute distress, on 2 L nasal cannula. She is still confused. MRI of the brain from yesterday showed some cerebral atrophy with the white matter bilaterally increased on the FLAIR images which could relate to some microvascular ischemia and appears increased compared to old exam. There is no evidence of cortical infarct. No new chest x-ray to review today. Patient's CBC from yesterday shows a WBC count of 5.7, hemoglobin 11.2, hematocrit 33, platelets 199,000. BMP from yesterday was stable with a sodium of 141, potassium 4.2, chloride 112, serum CO2 27, BUN 7, creatinine 0.67, glucose 95. Patient has completed her course of Rocephin and remains afebrile. She has not required any when necessary narcotics since June 17. She is maintained on DuoNeb inhalation and Singulair. She is receiving Protonix for GI prophylaxis and heparin for DVT prophylaxis. Vital signs remained hemodynamically stable. I'm reevaluating this patient today on 06/23/2022 on the general medical floor. Patient is sitting up in bed, in no acute distress, on 3 L nasal cannula. she denies any pulmonary complaints. she is alert and oriented 3. she has been up ambulating in the room with a walker. no new chest x-ray to review today. no new labs to review today. she is maintained on DuoNeb inhalationand Singulair. She is also receiving heparin for DVT prophylaxis and Protonix for GI prophylaxis. Patient remains afebrile, and her vital signs are hemodynamically stable. Objective - Vital Signs Vital signs: Vital Signs Temp 97.7 F 06/23/22 07:15 Pulse 73 06/23/22 08:40 Resp 16 06/23/22 08:40 BP 160/84 06/23/22 07:15 Pulse Ox 94 L 06/23/22 07:37 FiO2 40 06/19/22 13:00 Intake & Output 06/22/22 06/23/22 06/23/22 18:59 06:59 18:59 Output Total 700 600 Balance -700 -600 Weight 96.1 kg Output: Urine 700 600 Other: Voiding Method Indwelling Catheter Indwelling Catheter Indwelling Catheter - Exam Physical Exam: a 66-year-old female, in no acute distress, on 3 L nasal cannula. Head: Atraumatic, normocephalic. HEENT:[Neck is supple.] [No neck masses.] [No thyromegaly.] [No JVD.] Chest: Diminished breath sounds at the bases; no crackles or rhonchi or wheezes. No conversational dyspnea or accessory muscle use Cardiac Exam: [Normal S1 and S2, no S3 gallop, no murmur.] Abdomen: [Soft, nontender, no megaly, no rebound, no guarding, normal bowel sounds.] Extremities: [No clubbing, no edema, no cyanosis.] Neurological Exam: alert and oriented 3 Psychiatric: Normal mood affect and normal mental status examination. Skin: No rashes - Labs CBC & Chem 7: 06/21/22 06:11 06/21/22 12:44 Labs: Abnormal Lab Results - Last 24 Hours (Table) 06/22/22 06/22/22 06/23/22 Range/Units 17:05 20:11 07:17 POC Glucose (mg/dL) 146 H 150 H 130 H (70-110) mg/dL 06/23/22 Range/Units 11:21 POC Glucose (mg/dL) 160 H (70-110) mg/dL Microbiology - Last 24 Hours (Table) 06/17/22 14:21 Blood Culture - Preliminary Blood No Growth after 120 hours 06/17/22 14:04 Blood Culture - Preliminary Blood No Growth after 120 hours Assessment and Plan Assessment: Acute mental status change, possible acute ischemic CVA or TIA workup is in progress, neurologic findings have resolved, patient is scheduled to have an MRI, and she is being followed by neurology. Acute on chronic hypoxic respiratory failure with history of underlying COPD, suspect acute exacerbation of COPD patient was extubated June 19, uneventfully. On 3 L nasal cannula. History of obstructive sleep apnea syndrome Previous history of CVA Degenerative joint disease History of DVT Coronary arteriosclerosis Benign essential hypertension History of colonic polyps Positive drug screen on admission for opiates, benzodiazepines, and Tri-Cycllics Doubt bacterial pneumonia since pro calcitonin level on admission was 0.07 Plan: Patient's medications were reviewed Continue supplemental oxygen to maintain attention saturation 92% or greater Continue to encourage incentive spirometer Continue GI and DVT prophylaxis Neurology is following Continue DuoNeb inhalations from a pulmonary standpoint, patient is cleared for discharge. I have personally seen and examined the patient, performed the documentation and the assessment and plan as written. Number of minutes spent on the visit: 10 Time with Patient: Less than 30
[2022-06-23] MEDS: PANTOPRAZOLE 40 MG TABLET PO SCH (16:15)
[2022-06-23 17:36] LABS: Glucose,Whole Blood 125 mg/dL (70-110)
--- NOTE | 2022-06-23 19:19 | DS ---
DISCHARGE SUMMARY DISCHARGE MEDICINES: 1. Loratadine 10 mg daily. 2. Cyclobenzaprine 5 mg b.i.d. 3. DuoNeb updrafts q.i.d. 4. Plavix 75 mg daily. 5. Atenolol 50 mg b.i.d. 6. Aspirin 81 mg daily. 7. Gabapentin 300 mg t.i.d. 8. [place] 7.5 every 6 hours p.r.n. 9. Dulcolax 10 mg p.r.n. rectally. 10.Mag oxide 400 daily. 11.Pantoprazole 40 b.i.d. 12.Accu-Chek before meals and at bedtime. 13.Montelukast 10 mg daily. CONDITION: Stable. PROGNOSIS: Guarded. Follow up with Dr. Lisa in [facility]. Ambulate with physical therapy. The patient was admitted to the hospital with altered mental status and respiratory failure when on the ventilator, unclear etiology. Metabolic encephalopathy with some kind of viral infection, most likely. She has chronic hypoxemia. She had a brain MRI as acute ischemic stroke was suspected. MRI shows cerebral atrophy, some microvascular ischemia. No evidence of an infarct. Suspect she has some metabolic encephalopathy from a viral infection versus viral pneumonia. Pulmonary saw her, weaned her off the vent over 2 to 3 days' time. The patient improved. She had chronic hypoxic and hypercapnic respiratory failure, COPD exacerbation, stroke was ruled out with metabolic encephalopathy. CTA of the brain shows no significant stenosis. She had a pCO2 of 69, PO2 of 91. She presently needs CPAP machine versus oxygen at the long term at all times, at least 2 L versus a CPAP machine. Chronic treatment for history of DVT, DJD, coronary arthrosclerosis, benign hypertension, colon polyps, depression, neuropathy, degenerative disk disease. Prognosis guarded. Follow up as an outpatient with Dr. Lisa. Please see further orders. MMODL / IJN: [id number] /
[2022-06-23 20:52] LABS: Glucose,Whole Blood 156 mg/dL (70-110)
[2022-06-23] MEDS: MONTELUKAST 10 MG TAB PO SCH (21:11)
[2022-06-23] MEDS: HYDROcodone/APAP 7.5-325MG 1 EACH TAB PO PRN (21:12)
[2022-06-24 06:36] LABS: Glucose,Whole Blood 125 mg/dL (70-110)
[2022-06-24] MEDS: INSULIN ASPART (NovoLOG) 100 UNIT/ML VIAL SQ SCH ×2 (07:01→11:43)
[2022-06-24] MEDS: PANTOPRAZOLE 40 MG TABLET PO SCH (07:04)
[2022-06-24] MEDS: MAGNESIUM OXIDE 400 MG TAB PO SCH (07:30)
[2022-06-24] MEDS: GABAPENTIN 300 MG CAP PO SCH (07:30)
[2022-06-24] MEDS: atenoloL 50 MG TAB PO SCH (07:30)
[2022-06-24] MEDS: CLOPIDOGREL 75 MG TAB PO SCH (07:30)
[2022-06-24] MEDS: HEPARIN SODIUM,PORCINE/PF 5,000 UNIT/0.5 ML SYRINGE SQ SCH (07:30)
[2022-06-24] MEDS: LORATADINE 10 MG TAB PO SCH (07:30)
[2022-06-24] MEDS: ASPIRIN 81 MG PO SCH (07:30)
[2022-06-24 08:03] VITALS: BP 133/85; PULSE 71; RESP 18; TEMP 97.6
[2022-06-24] MEDS: PANTOPRAZOLE 40 MG/10 ML VIAL IVP SCH (09:58)
[2022-06-24 11:04] LABS: Glucose,Whole Blood 137 mg/dL (70-110)
--- NOTE | 2022-06-24 12:49 | P.PN ---
Subjective Progress Note Date: 06/24/22 Principal diagnosis: altered mental status, acute on chronic hypoxic hypercapnic respiratory failure, COPD exacerbation, possible TIA 66-year-old female patient who came into the emergency department yesterday because of altered mental status. The patient was also having shortness of breath for the past 5 days. Apparently, her symptoms got worse on the day of admission. The patient had mild right sided facial droop per home health nurse as well as slurred speech. Symptoms started at around noon yesterday. She also had difficulties in feeding herself and she was unable to use her right hand. Based on that, the patient was brought into the emergency department. In the ED, her mentation was altered and she had an NIH of 2 and her last known mental status assessment was more than 24 hours ago. Her cardiac rhythm was sinus. Her labs are unremarkable. Urine drug screen was positive for opiates and benzodiazepines. Her Covid 19 testing flu and RSV were negative. At that point, a CAT scan of the brain was done and it showed no acute abnormalities. This was discussed with neurology after the CT angiogram. The CT angiogram showed no evidence of any dissection or any high-grade stenosis within the brain. There was some multifocal patchy airspace opacity throughout the lungs as noted in the CT angiogram. The case was discussed with neurology. The patie nt was not found to be a candidate for TPA administration. While in the emergency, the patient's stroke was evaluated by our nursing staff. She was apparently following simple commands. Nevertheless, her rest or status was worse and she was having more labored breathing and air and she was quite limited bilaterally. At that point, a blood gas was done that showed a pH of 7.19 with a pCO2 of 69 and pO2 of 91. There was a concern that the patient was unable to protect her airways and for that reason the, the patient was intubated and placed on a mechanical ventilator. Post intubation chest x-ray shows adequate positioning of the orotracheal tube. The patient has also and orogastric tube in place. No significant airspace disease or opacities seen on the chest x-ray. The lung volumes are essentially small. Some limited bibasilar pulmonary infiltrates cannot be completely excluded. This morning, the patient is on propofol at 20 mg/kg/m pH is calm and comfortable and hemodynamically stable. She is on assist-control mode of mechanical ventilation at the rate of 18 with a tidal volume of 350 and FiO2 of 50% with a PEEP of 5. Most recent blood gas from this morning shows a a pH of 7.33 with a pCO2 of 47 and pO2 of 286 and this was done on FiO2 of 100% post intubation. Rest of the labs that essentially within normal limits. Her UA was positive for glucose, +2 ketones and negative for infection. Her proBNP level was 187. Troponins were all negative. WBC count was at 5.1 with a hemoglobin of 11.2. Currently on IV fluids at 20 mL an hour. Pete catheter is in place. An output is adequate.the patient also has a history of L2-L4 spondylosis with stenosis; left large any weakness; low back pain. At this point patient has failed conservative treatment measures and has opted to proceed with a elective L2-3 and L3-4 posteriolateral and interbody fusion; L2-3 and L3-4 bilateral laminectomy, complete facetectomy and foraminotomy. She has other comorbidities including coronary artery disease, diabetes mellitus, previous history of CVA which was not seen on the CAT scan of the brain, COPD, obstructive sleep apnea/asthma, previous history of DVTs and osteoarthritis. She was also infected with Covid 19 back in . On 06/19/2022, the patient is still intubated on a mechanical ventilator. Note that I give the patient agrees sedation holiday yesterday. I was informed by the nursing staff that the patient didn't arouse and she was not following any commands and she was not purposeful. At that point, the holiday was discontinued and the patient was placed again on propofol and she is currently on 45 mcg/kg/m of propofol infusion. She is resting comfortably in bed. She is on assist-control mechanical ventilation and currently she is on a rate of 16, tidal volume of 350, FiO2 of 50% and a PEEP of 5. Current pulse ox is 99%. The blood gas from today showed a pH of 7.4 with a pCO2 of 41 and pO2 111 and this was on FiO2 of 50%. Repeat chest x-ray from today shows adequate expansion of both lungs. ET tube is in a good location. Lung volumes are low and there may be some right basilar atelectasis/infiltrate. Essentially, no major interval change compared to yesterday. Meanwhile, repeat CAT scan of the brain was done yesterday and the patient was seen by neurology. CAT scan of the brain was negative and neurology consultation was appreciated and based on their opinion, the encephalopathy caused remains unclear. Stroke cannot be completely ruled out. Seizure is felt to be less likely. The patient was kept on aspirin and EEG was ordered. The echocardiogram was also completed yesterday and the patient had a preserved LV function, moderate LV wall thickness, no significant valvular abnormalities. Right ventricular systolic pressure was around 27 mmHg. Labs from today are still pending. On 06/20/2022, the patient is extubated and the patient is currently on oxygen at 4 L. we were able to gradually wean her off sedation yesterday and the patient arouse. following that, she was able to go through a small to his br eathing trial and the patient was extubated to nasal cannula. she was initially confused postextubation. She was also agitated and combative. Based on that, she was given Geodon to control her agitation. This morning, she is not agitated. She has relaxed. She is answering some questions although she is not absolutely appropriate. Her breathing is nonlabored. She has a congested cough. Unable to bring up much sputum. She has a white cell count of 5.2 with a hemoglobin of 10.5 and a platelet count of 202. Sodium is at 146, BUN is at 12 with a creatinine of 0.8 and the serum bicarb is at 27. Blood cultures have been negative. Sputum cultures were negative. The patient's pro-calcitonin level was at 0.07. The chest x-ray from yesterday showed smaller lung volumes along with some atelectatic changes in lung bases bilaterally. Based on her altered mentation, the patient was seen by neurology. Their recommendations was to eggs acute and MRI of the brain at the later stage. He also made recommendations to continue aspirin. EEG was also done yesterday that showed background slowing and moderate encephalopathy. No seizure activity was noted. I think so she is on IV fluids and currently she is on normal saline at rate of 75 mL an hour. Pete catheter is in place. She has adequate urine output. Reevaluated today on 06/21/2022, patient remains in the ICU, she seems to be doing fairly well, she was extubated yesterday, she is now on 2 L nasal cannula, does not seem to be in any distress. She is not requiring any infusions. We will downgrade to transfer to a medical surgical floor, and we will continue her present course of treatment/bronchodilators. And antibiotics. Chest x-ray showed bibasilar atelectasis Basic metabolic profile is normal. Sputum cultures and blood cultures are negative in the last 72 hours. She was seen by neurology on consultation for acute right facial droop and slurred speech, questioning the possibility of acute ischemic stroke or TIA. Today I did not see any neurological deficit. MRI is pending patient is mostly on aspirin as per neurology on the case I'm evaluating this patient today on 06/22/2022 on a general medical floor. Patient is sitting up in bed, in no acute distress, on 2 L nasal cannula. She is still confused. MRI of the brain from yesterday showed some cerebral atrophy with the white matter bilaterally increased on the FLAIR images which could relate to some microvascular ischemia and appears increased compared to old exam. There is no evidence of cortical infarct. No new chest x-ray to review today. Patient's CBC from yesterday shows a WBC count of 5.7, hemoglobin 11.2, hematocrit 33, platelets 199,000. BMP from yesterday was stable with a sodium of 141, potassium 4.2, chloride 112, serum CO2 27, BUN 7, creatinine 0.67, glucose 95. Patient has completed her course of Rocephin and remains afebrile. She has not required any when necessary narcotics since June 17. She is maintained on DuoNeb inhalation and Singulair. She is receiving Protonix for GI prophylaxis and heparin for DVT prophylaxis. Vital signs remained hemodynamically stable. I'm reevaluating this patient today on 06/23/2022 on the general medical floor. Patient is sitting up in bed, in no acute distress, on 3 L nasal cannula. she denies any pulmonary complaints. she is alert and oriented 3. she has been up ambulating in the room with a walker. no new chest x-ray to review today. no new labs to review today. she is maintained on DuoNeb inhalationand Singulair. She is also receiving heparin for DVT prophylaxis and Protonix for GI prophylaxis. Patient remains afebrile, and her vital signs are hemodynamically stable. I'm reevaluating this patient today on 06/24/2022 in follow-up on a general medical floor. Patient is sitting up in bed, in no acute distress, on 3 L nasal cannula. She is alert and oriented in 3. She denies any shortness of breath, cough, fever, chest pain. She continues to increase activity, by walking in her room with a walker. No new x-ray to review today. No new labs to review today. She is maintained on DuoNeb inhalations and Singulair.. She remains afebrile. Vital signs remain stable. Patient may need help at home, upon discharge, porter sample case following. Objective - Vital Signs Vital signs: Vital Signs Temp 97.6 F 06/24/22 08:00 Pulse 71 06/24/22 08:00 Resp 18 06/24/22 08:00 BP 133/85 06/24/22 08:00 Pulse Ox 97 06/24/22 08:00 FiO2 40 06/19/22 13:00 Intake & Output 06/23/22 06/24/22 06/24/22 18:59 06:59 18:59 Intake Total 420 Output Total 600 Balance 420 -600 Weight 96.1 kg Intake: Oral 420 Output: Urine 600 Other: Voiding Method Indwelling Catheter Toilet Toilet # Voids 4 1 1 - Exam Physical Exam: a 66-year-old female, in no acute distress, on 3 L nasal cannula. Head: Atraumatic, normocephalic. HEENT:[Neck is supple.] [No neck masses.] [No thyromegaly.] [No JVD.] Chest: Diminished breath sounds at the bases; no crackles or rhonchi or wheezes. No conversational dyspnea or accessory muscle use Cardiac Exam: [Normal S1 and S2, no S3 gallop, no murmur.] Abdomen: [Soft, nontender, no megaly, no rebound, no guarding, normal bowel sounds.] Extremities: [No clubbing, no edema, no cyanosis.] Neurological Exam: alert and oriented 3 Psychiatric: Normal mood affect and normal mental status examination. Skin: No rashes - Labs CBC & Chem 7: 06/21/22 06:11 06/21/22 12:44 Labs: Abnormal Lab Results - Last 24 Hours (Table) 06/23/22 06/23/22 06/23/22 Range/Units 16:20 17:34 20:50 POC Glucose (mg/dL) 125 H 156 H (70-110) mg/dL Coronavirus (PCR) Detected A (Not Detectd) 06/24/22 06/24/22 Range/Units 06:34 11:02 POC Glucose (mg/dL) 125 H 137 H (70-110) mg/dL Coronavirus (PCR) (Not Detectd) Microbiology - Last 24 Hours (Table) 06/17/22 14:21 Blood Culture - Final Blood No Growth after 144 hours 06/17/22 14:04 Blood Culture - Final Blood No Growth after 144 hours Assessment and Plan Assessment: Acute mental status change, possible acute ischemic CVA or TIA workup is in progress, neurologic findings have resolved, patient is scheduled to have an MRI, and she is being followed by neurology. Acute on chronic hypoxic respiratory failure with history of underlying COPD, suspect acute exacerbation of COPD patient was extubated June 19, uneventfully. On 3 L nasal cannula. History of obstructive sleep apnea syndrome Previous history of CVA Degenerative joint disease History of DVT Coronary arteriosclerosis Benign essential hypertension History of colonic polyps Positive drug screen on admission for opiates, benzodiazepines, and Tri-Cycllics Doubt bacterial pneumonia since pro calcitonin level on admission was 0.07 Plan: Patient's medications were reviewed Continue supplemental oxygen to maintain attention saturation 92% or greater Continue to encourage incentive spirometer Continue GI and DVT prophylaxis Continue DuoNeb inhalations Needs home O2 evaluation from a pulmonary standpoint, patient is cleared for discharge. I have personally seen and examined the patient, performed the documentation and the assessment and plan as written. Number of minutes spent on the visit: 10 Time with Patient: Less than 30
[2022-06-24] MEDS: HYDROcodone/APAP 7.5-325MG 1 EACH TAB PO PRN (14:09)
== END 2022-06-24 15:02 | DRG 208 ==
LOC: EC 13:35 → 3SCARD 17:40 → 2SICU 06-18 01:45 → 5NMEDONC 06-21 21:10 → 4SSUR 06-23 18:09
PROVIDERS: ADMIT Family Medicine; ATTEND Family Medicine
PROC: 5A1945Z Respiratory Ventilation, 24-96 Consecutive Hours (ICD-10-PCS; principal; 2022-06-18)
PROC: 0BH18EZ Insertion of Endotracheal Airway into Trachea, Via Natural or Artificial Opening Endoscopic (ICD-10-PCS; 2022-06-18)
PROC: 0D9670Z Drainage of Stomach with Drainage Device, Via Natural or Artificial Opening (ICD-10-PCS; 2022-06-18)
DX: J44.1 Chronic obstructive pulmonary disease with (acute) exacerbation (principal); J96.21 Acute and chronic respiratory failure with hypoxia; J96.22 Acute and chronic respiratory failure with hypercapnia; G93.41 Metabolic encephalopathy; J18.9 Pneumonia, unspecified organism; G45.9 Transient cerebral ischemic attack, unspecified; F03.92 Unspecified dementia, unspecified severity, with psychotic disturbance; J44.0 Chronic obstructive pulmonary disease with (acute) lower respiratory infection; E11.22 Type 2 diabetes mellitus with diabetic chronic kidney disease; E11.40 Type 2 diabetes mellitus with diabetic neuropathy, unspecified; I12.9 Hypertensive chronic kidney disease with stage 1 through stage 4 chronic kidney disease, or unspecified chronic kidney disease; E66.9 Obesity, unspecified; F32.A Depression, unspecified; G31.9 Degenerative disease of nervous system, unspecified; Z68.34 Body mass index [BMI] 34.0-34.9, adult; I25.10 Atherosclerotic heart disease of native coronary artery without angina pectoris; R47.81 Slurred speech; R29.810 Facial weakness; E78.5 Hyperlipidemia, unspecified; G47.33 Obstructive sleep apnea (adult) (pediatric); M47.816 Spondylosis without myelopathy or radiculopathy, lumbar region; M48.061 Spinal stenosis, lumbar region without neurogenic claudication; M19.90 Unspecified osteoarthritis, unspecified site; G89.29 Other chronic pain; R63.30 Feeding difficulties, unspecified; R27.0 Ataxia, unspecified; M21.372 Foot drop, left foot; M51.36 Other intervertebral disc degeneration, lumbar region; R49.0 Dysphonia; Z96.651 Presence of right artificial knee joint; Z20.822 Contact with and (suspected) exposure to COVID-19; N18.2 Chronic kidney disease, stage 2 (mild); Z79.899 Other long term (current) drug therapy; Z79.82 Long term (current) use of aspirin; Z79.4 Long term (current) use of insulin; Z91.041 Radiographic dye allergy status; Z88.8 Allergy status to other drugs, medicaments and biological substances; Z87.11 Personal history of peptic ulcer disease; Z87.19 Personal history of other diseases of the digestive system; Z86.16 Personal history of COVID-19; I25.2 Old myocardial infarction; Z86.73 Personal history of transient ischemic attack (TIA), and cerebral infarction without residual deficits; Z86.718 Personal history of other venous thrombosis and embolism; Z98.1 Arthrodesis status
CPT/HCPCS: 36410; 36415; 36600; 70450; 70496; 70498; 70553; 71045; 71046; 74177; 76937; 80048; 80053; 80061; 80306; 80320; 81001; 82140; 82805; 83036; 83605; 83735; 83880; 84132; 84145; 84443; 84484; 85025; 85610; 85730; 87040; 87070; 87205; 87635; 87636; 93005; 93306; 94002; 94003; 94760; 95822; 96361; 96365; 96366; 96367; 96372; 96375; 99285

== ENCOUNTER 2023-05-20 20:03 | Inpatient (IN) | payer MEDICARE, OTHER ==
[2023-05-20] MEDS ORDERED: MORPHINE SULFATE 4 MG/ML SYRINGE IVP STA ×2 (21:55→23:18)
[2023-05-20] MEDS ORDERED: ONDANSETRON 4 MG/2 ML VIAL IVP STA (21:55)
[2023-05-20] MEDS ORDERED: SODIUM CHLORIDE 0.9% 1,000 ML IV ONE (21:55)
[2023-05-20 22:27] LABS: Basophils % (A) 0 %; Eosinophils # (A) 0.2 k/uL (0-0.7); Eosinophils % (A) 3 %; HCT 39.8 % (34.0-46.0); HGB 13.1 gm/dL (11.4-16.0); Lymphocytes # (A) 1.9 k/uL (1.0-4.8); Lymphocytes % (A) 24 %; MCH 31.5 pg (25.0-35.0); MCHC 32.8 g/dL (31.0-37.0); MCV 95.8 fL (80.0-100.0); Mean Platelet Volume 9.2; Monocytes # (A) 0.4 k/uL (0-1.0); Monocytes % (A) 5 %; Neutrophils # (A) 5.3 k/uL (1.3-7.7); Neutrophils % (A) 67 %; Platelet Count 137 k/uL (150-450); RBC 4.16 m/uL (3.80-5.40); RDW 13.6 % (11.5-15.5); WBC 7.9 k/uL (3.8-10.6)
[2023-05-20 22:36] LABS: ALT 24 U/L (4-34); AST 20 U/L (14-36); African American GFR (CKD) >90 (>60 ml/min/1.73 sqM); Alkaline Phosphatase 102 U/L (38-126); Anion Gap 10 mmol/L; Blood Urea Nitrogen 17 mg/dL (7-17); Calcium 9.2 mg/dL (8.4-10.2); Carbon Dioxide 27 mmol/L (22-30); Chloride 104 mmol/L (98-107); Glucose 256 mg/dL (74-99); Non-African American GFR(CKD) 82 (>60 ml/min/1.73 sqM); Potassium 3.6 mmol/L (3.5-5.1); Sodium 141 mmol/L (137-145); Total Bilirubin 0.6 mg/dL (0.2-1.3); Total Protein 6.5 g/dL (6.3-8.2)
[2023-05-21] MEDS ORDERED: SODIUM CHLORIDE 0.9% 1,000 ML IV ONE (00:13)
[2023-05-21] MEDS ORDERED: HYDROmorphone 0.5 MG/0.5 ML SYRINGE IVP STA (00:31)
--- NOTE | 2023-05-21 01:22 | US ---
EXAM: US Pelvis Transabdominal, Complete CLINICAL HISTORY: LLQ pain, Hx of ovarian cyst TECHNIQUE: Real-time complete transabdominal pelvic ultrasound with image documentation. COMPARISON: No relevant prior studies available. FINDINGS: Uterus/cervix: Absent. Right ovary: Absent. Left ovary: 3.2 x 2.4 x 2.3 cm cyst with vascular flow, likely ovarian. Adnexa: No free fluid or suspicious adnexal mass. IMPRESSION: Findings consistent with a prior hysterectomy and right nephrectomy. Left adnexal likely ovary containing a simple appearing cyst. No free fluid.
[2023-05-21 04:05] LABS: Appearance,Urine Clear (Clear); Color,Urine Yellow; Protein,Urine Negative (Negative); Specific Gravity,Urine 1.015 (1.001-1.035)
[2023-05-21 04:06] LABS: Bilirubin,Urine Negative (Negative); Blood,Urine Trace (Negative); Glucose,Urine (UA) 3+ (Negative); Ketones,Urine Negative (Negative); Leukocyte Esterase,Urine Negative (Negative); Nitrite,Urine Negative (Negative); Urobilinogen,Urine <2.0 mg/dL (<2.0)
[2023-05-21 04:08] LABS: Bacteria,Urine Rare /hpf; Mucus,Urine Occasional /hpf; RBC,Urine 2 /hpf (0-5); Squamous Epithelial Cell,Urine 3 /hpf (0-4); WBC,Urine 15 /hpf (0-5)
[2023-05-21] MEDS ORDERED: methylPREDNISolone SOD SUCCI 125 MG/2 ML VIAL IM ONE (04:35)
[2023-05-21] MEDS ORDERED: FAMOTIDINE 20 MG/2 ML VIAL IV STA (04:35)
[2023-05-21] MEDS ORDERED: diphenhydrAMINE 50 MG/ML 1 ML VIAL IVP STA (04:35)
--- NOTE | 2023-05-21 04:39 | ED ---
General Adult HPI - General Source: patient, RN notes reviewed Mode of arrival: ambulatory Limitations: no limitations <Tere Morfin - Last Filed: 05/21/23 04:35> <Bernabe Salgado - Last Filed: 05/21/23 07:36> <DamianvirgieTodd - Last Filed: 05/21/23 11:14> - General Chief complaint: Abdominal Pain Stated complaint: Abd pain Time Seen by Provider: 05/20/23 21:24 - History of Present Illness Initial comments: 67-year-old male with no significant past medical history presents emergency Department with chief complaint of left lower quadrant abdominal pain. She does report that she has a very of ovarian cysts. She reports that the pain is sharp, constant and worse with movement. She denies any fevers, chills, nausea or vomiting, vaginal bleeding, vaginal cramping or low back pain. Denies any injury or trauma. Denies any changes in stool or bowel habits. (Tere Morfin) - Related Data Home Medications Medication Instructions Recorded Confirmed Montelukast [Singulair] 10 mg PO HS 10/17/20 06/17/22 Aspirin [Adult Low Dose Aspirin EC] 81 mg PO DAILY 04/21/22 06/17/22 Loratadine [Claritin] 10 mg PO DAILY 04/21/22 06/17/22 Magnesium Oxide 400 mg PO DAILY 04/21/22 06/17/22 atenoloL [Tenormin] 50 mg PO BID 04/21/22 06/17/22 Cyclobenzaprine [Flexeril] 5 mg PO BID PRN 06/17/22 06/17/22 HYDROcodone/APAP 7.5-325MG [[place] 1 tab PO Q6HR PRN 06/17/22 06/17/22 7.5-325] INSULIN ASPART (NovoLOG) [NovoLOG See Protocol SQ ACHS 06/17/22 06/17/22 (formulary)] Sennosides/Docusate Sodium [[place] 1 tab PO DAILY PRN 06/17/22 06/17/22 Plus 8.6-50 mg Tablet] Previous Rx's Medication Instructions Recorded Gabapentin [Neurontin] 300 mg PO TID cap 04/29/22 Mag Hydrox/Al Hydrox/Simeth 30 ml PO Q4HR PRN ml 04/29/22 [Maalox] bisacodyL [Dulcolax] 10 mg RECTAL DAILY PRN suppositor 04/29/22 Clopidogrel [Plavix] 75 mg PO DAILY tab 06/23/22 INSULIN ASPART (NovoLOG) [NovoLOG 0 unit SQ AC-TID each 06/23/22 (formulary)] Ipratropium-Albuterol Nebulize 3 ml INHALATION RT-QID PRN each 06/23/22 [Duoneb 0.5 mg-3 mg/3 ml Soln] Allergies Allergy/AdvReac Type Severity Reaction Status Date / Time Iodinated Contrast Media Allergy Severe Anaphylaxis Verified 06/17/22 16:30 [Iodinated Contrast Media - IV Dye] iodine Allergy Anaphylaxis Verified 06/17/22 16:30 Hyjguez-DJO-VxS Reductase Allergy Anaphylaxis Verified 06/17/22 16:30 Inhibitor [Yhcqjqv-Uhj-Ktm Reductase Inhibitor] Review of Systems ROS Other: All systems not noted in ROS Statement are negative. <Tere Morfin - Last Filed: 05/21/23 04:35> ROS Other: All systems not noted in ROS Statement are negative. <Bernabe Salgado - Last Filed: 05/21/23 07:36> ROS Other: All systems not noted in ROS Statement are negative. <Todd Lomeli - Last Filed: 05/21/23 11:14> ROS Statement: Those systems with pertinent positive or pertinent negative responses have been documented in the HPI. Past Medical History Past Medical History: Asthma, Coronary Artery Disease (CAD), COPD, Diabetes Mellitus, Deep Vein Thrombosis (DVT), GERD/Reflux, Hyperlipidemia, Hypertension, Musculoskeletal Disorder, Osteoarthritis (OA), Renal Disease, Sleep Apnea/CPAP/BIPAP Additional Past Medical History / Comment(s): PUD, colitis, benign colon polyps, DVT L leg, migraines, ANDREW - uses cpap. kidney stones, CKD stage II, vertigo, recurrent L ear infections/ruptured eardrum, TMJ, mild CAD, back prob - NT Lt arm, leg. Edema BLE. covid + 01/19/2021 Last Myocardial Infarction Date:: 2009 History of Any Multi-Drug Resistant Organisms: None Reported Past Surgical History: Appendectomy, Cholecystectomy, Ear Surgery, Heart Catheterization, Hysterectomy, Joint Replacement, Orthopedic Surgery, Tonsillectomy Additional Past Surgical History / Comment(s): R/L knee arthroscopies, L ear patch/graft, EGD, colonoscopy/polypectomy, throat abscess. Right knee replacement, back surgery, Past Anesthesia/Blood Transfusion Reactions: Postoperative Nausea & Vomiting (PONV) Past Psychological History: Anxiety Smoking Status: Never smoker Past Alcohol Use History: None Reported Past Drug Use History: None Reported - Past Family History Sister(s) Family Medical History: Cancer Father Family Medical History: Cancer Additional Family Medical History / Comment(s): Throat and brain cancer. Father was an alcoholic. Mother Family Medical History: Liver Disease Additional Family Medical History / Comment(s): Mother is . She was an alcoholic. <Tere Morfin - Last Filed: 05/21/23 04:35> General Exam Limitations: no limitations <Tere Morfin - Last Filed: 05/21/23 04:35> - General Exam Comments Initial Comments: General: Alert, in no acute distress Head: atraumatic normocephalic. Eyes PERRL, EOMI intact, mucous membranes moist Respiratory: Lungs clear to auscultation bilaterally Cardiovascular: Heart rate regular rate and rhythm Abdominal: Soft without guarding or rebound, lower quadrant abdominal tenderness Extremities: Normal inspection with full range of motion and normal capillary refill Neuroogic: alert and oriented 3, CN II-XII intact, able to ambulate with steady gait Skin: warm dry and intact with normal color (Tere Morfin) Course <Tere Morfin - Last Filed: 05/21/23 04:35> Vital Signs 05/20/23 05/20/23 05/21/23 20:04 23:26 01:00 Temperature 98.5 F Pulse Rate 98 99 Respiratory 20 19 19 Rate Blood Pressure 152/70 171/83 172/93 O2 Sat by Pulse 94 L 90 L Oximetry 05/21/23 05/21/23 05/21/23 03:28 05:58 08:03 Temperature 98 F Pulse Rate 98 91 106 H Respiratory 19 19 18 Rate Blood Pressure 192/94 153/101 O2 Sat by Pulse 96 94 L 94 L Oximetry 05/21/23 09:24 Temperature Pulse Rate 111 H Respiratory 15 Rate Blood Pressure 184/94 O2 Sat by Pulse 88 L Oximetry - Reevaluation(s) Reevaluation #1: 05/21/23 00:03 reevaluated. Patient still complaining of persistent pain. Additional pain meds ordered (Tere Morfin) Reevaluation #2: 05/21/23 03:45 patient reevaluated. Patient still reports pain status post medications. Patient aware need for UA. (Tere Morfin) Reevaluation #3: 05/21/23 04:36 Case is discussed with Dr. Salgado who assumes care of patient pending CT result. (Tere Morfin) Medical Decision Making - Lab Data Result diagrams: 05/20/23 22:10 05/20/23 22:10 <Tere Morfin - Last Filed: 05/21/23 04:35> - Lab Data Result diagrams: 05/20/23 22:10 05/20/23 22:10 <Bernabe Salgado - Last Filed: 05/21/23 07:36> - Lab Data Result diagrams: 05/20/23 22:10 05/20/23 22:10 <Todd Lomeli - Last Filed: 05/21/23 11:14> - Medical Decision Making Was pt. sent in by a medical professional or institution (, PA, WRITING MANAGER, urgent care, hospital, or custodial...) When possible be specific @ -[No] Did you speak to anyone other than the patient for history (EMS, parent, family, police, friend...)? What history was obtained from this source @ -[No] Did you review nursing and triage notes (agree or disagree)? Why? @ -[I reviewed and agree with nursing and triage notes] Were old charts reviewed (outside hosp., previous admission, EMS record, old EKG, old radiological studies, urgent care reports/EKG's, custodial records)? Report findings @ -[No old charts were reviewed] Differential Diagnosis (chest pain, altered mental status, abdominal pain women, abdominal pain men, vaginal bleeding, weakness, fever, dyspnea, syncope, headache, dizziness, GI bleed, back pain, seizure, CVA, palpatations, mental health, musculoskeletal)? @ -[not applicable] EKG interpreted by me (3pts min.). @ -[As above] X-rays interpreted by me (1pt min.). @ -[None done] CT interpreted by me (1pt min.). @ -[None done] U/S interpreted by me (1pt. min.). @ Yes, 3 x 2 x 2 simple cyst on left ovary no evidence of torsion What testing was considered but not performed or refused? (CT, X-rays, U/S, labs)? Why? @ -[None] What meds were considered but not given or refused? Why? @ -[None] Did you discuss the management of the patient with other professionals (professionals i.e. , PA, WRITING MANAGER, lab, RT, psych nurse, socially responsible investment adviser, audio visual arts director, teacher, chief compliance officer, case finisher)? Give summary @ -[No] Was smoking cessation discussed for >3mins.? @ -[No] Was critical care preformed (if so, how long)? @ -[No] Were there social determinants of health that impacted care today? How? (Homelessness, low income, unemployed, alcoholism, drug addiction, transportation, low edu. Level, literacy, decrease access to med. care, halfway, rehab)? @ -[No] Was there de-escalation of care discussed even if they declined (Discuss DNR or withdrawal of care, Hospice)? DNR status @ -[No] What co-morbidities impacted this encounter? (DM, HTN, Smoking, COPD, CAD, Cancer, CVA, ARF, Chemo, Hep., AIDS, mental health diagnosis, sleep apnea, morbid obesity)? @ -[None] Was patient admitted / discharged? Hospital course, mention meds given and route, prescriptions, significant lab abnormalities, going to OR and other pertinent info. @ Physician pending. This is a 67-year-old female presents emergency Department with left lower quadrant abdominal pain. Patient had a thorough history and physical exam performed in the ED. Physical exam reveals moderate left lower quadrant abdominal tenderness. No rebound or guarding. Patient was given morphine and Dilaudid no symptomatically improvement. Ultrasound results unremarkable. Laboratory studies are unremarkable. Case is discussed with Dr. Salgado who assumes care of patient pending CT results. (Tere Morfin) Patient continues to be minimally responsive in the emergency department. Her workup for abdominal pain is unremarkable at this time. She had been given multiple doses of pain medication and Benadryl. She had snoring respirations and required more stimulus to usual to arouse. She had borderline hypoxia with an oxygenation around 90%. She does have history of COPD per she will be admitted for both observation and treatment of COPD exacerbation. Case [facility]. Lisa. [facility] - Lab Data Lab Results 05/20/23 05/20/23 05/21/23 Range/Units 22:10 22:10 03:45 WBC 7.9 (3.8-10.6) k/uL RBC 4.16 (3.80-5.40) m/uL Hgb 13.1 (11.4-16.0) gm/dL Hct 39.8 (34.0-46.0) % MCV 95.8 (80.0-100.0) fL MCH 31.5 (25.0-35.0) pg MCHC 32.8 (31.0-37.0) g/dL RDW 13.6 (11.5-15.5) % Plt Count 137 L (150-450) k/uL MPV 9.2 Neutrophils % 67 % Lymphocytes % 24 % Monocytes % 5 % Eosinophils % 3 % Basophils % 0 % Neutrophils # 5.3 (1.3-7.7) k/uL Lymphocytes # 1.9 (1.0-4.8) k/uL Monocytes # 0.4 (0-1.0) k/uL Eosinophils # 0.2 (0-0.7) k/uL Basophils # 0.0 (0-0.2) k/uL VBG pH (7.31-7.41) VBG pCO2 (37-51) mmHg VBG HCO3 (24-28) mmol/L Sodium 141 (137-145) mmol/L Potassium 3.6 (3.5-5.1) mmol/L Chloride 104 (98-107) mmol/L Carbon Dioxide 27 (22-30) mmol/L Anion Gap 10 mmol/L BUN 17 (7-17) mg/dL Creatinine 0.76 (0.52-1.04) mg/dL Est GFR (CKD-EPI)AfAm >90 (>60 ml/min/1.73 sqM) Est GFR (CKD-EPI)NonAf 82 (>60 ml/min/1.73 sqM) Glucose 256 H (74-99) mg/dL Calcium 9.2 (8.4-10.2) mg/dL Total Bilirubin 0.6 (0.2-1.3) mg/dL AST 20 (14-36) U/L ALT 24 (4-34) U/L Alkaline Phosphatase 102 (38-126) U/L Total Protein 6.5 (6.3-8.2) g/dL Albumin 4.0 (3.5-5.0) g/dL Urine Color Yellow Urine Appearance Clear (Clear) Urine pH 5.0 (5.0-8.0) Ur Specific [place] 1.015 (1.001-1.035) Urine Protein Negative (Negative) Urine Glucose (UA) 3+ (Negative) Urine Ketones Negative (Negative) Urine Blood Trace (Negative) Urine Nitrite Negative (Negative) Urine Bilirubin Negative (Negative) Urine Urobilinogen <2.0 (<2.0) mg/dL Ur Leukocyte Esterase Negative (Negative) Urine RBC 2 (0-5) /hpf Urine WBC 15 H (0-5) /hpf Ur Squamous Epith Cells 3 (0-4) /hpf Urine Bacteria Rare H (None) /hpf Urine Mucus Occasional H (None) /hpf 05/21/23 Range/Units 10:24 WBC (3.8-10.6) k/uL RBC (3.80-5.40) m/uL Hgb (11.4-16.0) gm/dL Hct (34.0-46.0) % MCV (80.0-100.0) fL MCH (25.0-35.0) pg MCHC (31.0-37.0) g/dL RDW (11.5-15.5) % Plt Count (150-450) k/uL MPV Neutrophils % % Lymphocytes % % Monocytes % % Eosinophils % % Basophils % % Neutrophils # (1.3-7.7) k/uL Lymphocytes # (1.0-4.8) k/uL Monocytes # (0-1.0) k/uL Eosinophils # (0-0.7) k/uL Basophils # (0-0.2) k/uL VBG pH 7.33 (7.31-7.41) VBG pCO2 46 (37-51) mmHg VBG HCO3 25 (24-28) mmol/L Sodium (137-145) mmol/L Potassium (3.5-5.1) mmol/L Chloride (98-107) mmol/L Carbon Dioxide (22-30) mmol/L Anion Gap mmol/L BUN (7-17) mg/dL Creatinine (0.52-1.04) mg/dL Est GFR (CKD-EPI)AfAm (>60 ml/min/1.73 sqM) Est GFR (CKD-EPI)NonAf (>60 ml/min/1.73 sqM) Glucose (74-99) mg/dL Calcium (8.4-10.2) mg/dL Total Bilirubin (0.2-1.3) mg/dL AST (14-36) U/L ALT (4-34) U/L Alkaline Phosphatase (38-126) U/L Total Protein (6.3-8.2) g/dL Albumin (3.5-5.0) g/dL Urine Color Urine Appearance (Clear) Urine pH (5.0-8.0) Ur Specific [place] (1.001-1.035) Urine Protein (Negative) Urine Glucose (UA) (Negative) Urine Ketones (Negative) Urine Blood (Negative) Urine Nitrite (Negative) Urine Bilirubin (Negative) Urine Urobilinogen (<2.0) mg/dL Ur Leukocyte Esterase (Negative) Urine RBC (0-5) /hpf Urine WBC (0-5) /hpf Ur Squamous Epith Cells (0-4) /hpf Urine Bacteria (None) /hpf Urine Mucus (None) /hpf Disposition <Tere Morfin - Last Filed: 05/21/23 04:35> Is patient prescribed a controlled substance at d/c from ED?: No <Bernabe Salgado - Last Filed: 05/21/23 07:36> Time of Disposition: 11:14 <Todd Lomeli - Last Filed: 05/21/23 11:14> Clinical Impression: Left lower quadrant abdominal pain, Ovarian cyst, left, COPD (chronic obstructive pulmonary disease) Disposition: ADMITTED IP TO THIS [facility] Condition: Stable Instructions (If sedation given, give patient instructions): Ovarian Cyst (ED), Abdominal Pain (ED) Referrals: Tavo Lisa MD [Primary Care Provider] - 1-2 days Rebel Chao MD [STAFF PHYSICIAN] - 1-2 days
[2023-05-21] MEDS ORDERED: MORPHINE SULFATE 4 MG/ML SYRINGE IV STA (05:29)
--- NOTE | 2023-05-21 06:11 | CT ---
EXAMINATION TYPE: CT abdomen pelvis w con DATE OF EXAM: 05/21/2023 HISTORY: Left lower quadrant abdominal pain CT DLP: 1380mGycm Automated Exposure Control for Dose Reduction was Utilized. CONTRAST: CT scan of the abdomen and pelvis is performed with IV Contrast, patient injected with 100 mL of Isov ue 300. COMPARISON: Prior CT June 17, 2022 FINDINGS: LUNG BASES: No significant abnormality is appreciated. LIVER/GB: Cholecystectomy clips are redemonstrated. Liver remains heterogeneously hypodense consisten t with fatty infiltrative hepatocellular disease. PANCREAS: No significant abnormality is seen. SPLEEN: No significant abnormality is seen. ADRENALS: No significant abnormality is seen. KIDNEYS: There is 9 mm nonobstructing calculus lower pole right kidney image 42. There is 2 to 3 mm n onobstructing calculus left kidney same image. Symmetric cortical medullary uptake and excretion with out hydronephrosis seen bilaterally. Occasional near 1 cm thin-walled cyst in both kidneys is seen. BOWEL: No abnormal small or large bowel dilatation. No diverticulosis or CT evidence for acute diver ticulitis. UTERUS/ADNEXA: Uterus is surgically absent. Left ovary has to adjacent thin-walled cysts in the left adnexa redemonstrated. They are stable in size and appearance measuring up to 2.2 cm. LYMPH NODES: No greater than 1cm abdominal or pelvic lymph nodes are appreciated. OSSEOUS STRUCTURES: Posterior decompression changes with posterior intrapedicular rods and screws L2- L4 level is redemonstrated. Metallic disc material at these levels is again seen. OTHER: No significant additional abnormality is seen. IMPRESSION: No significant new or acute finding is seen to account for patient's clinical symptoms. N onobstructing bilateral nephrolithiasis is noted.
[2023-05-21 10:39] LABS: VBG PH 7.33 (7.31-7.41)
--- NOTE | 2023-05-21 10:52 | XR ---
EXAMINATION TYPE: XR chest 1V portable DATE OF EXAM: 05/21/2023 Comparison: 06/19/2022 Clinical History: 67-year-old female shortness of breath, chris Findings: Heart normal size. Aorta and pulmonary vasculature within normal limits. The lung volumes and crowded vascular markings. There are patchy opacities at the periphery of the left base. Impression: Hypoventilatory changes. Some patchy atelectasis or early infiltrate at the left base.
[2023-05-21] MEDS ORDERED: NALOXONE 0.4 MG/ML 1 ML VIAL IVP PRN (11:11)
[2023-05-21] MEDS ORDERED: ACETAMINOPHEN TAB 325 MG TAB PO PRN (11:11)
[2023-05-21] MEDS ORDERED: IPRATROPIUM-ALBUTEROL 3 ML NEB INHALATION PRN ×2 (11:11→12:31)
[2023-05-21] MEDS ORDERED: SENNOSIDES-DOCUSATE SODIUM 1 EACH TAB PO PRN (12:31)
[2023-05-21] MEDS ORDERED: bisacodyL 10 MG SUPP RECTAL PRN (12:31)
[2023-05-21] MEDS ORDERED: MAG HYDROX/AL HYDROX/SIMETH 30 ML CUP PO PRN (12:31)
[2023-05-21] MEDS ORDERED: CYCLOBENZAPRINE 5 MG TAB PO PRN (12:31)
[2023-05-21] MEDS: SODIUM CHLORIDE 0.9% 1,000 ML IV SCH (13:12)
[2023-05-21] MEDS: AZITHROMYCIN 500 MG in SODIUM CHLORIDE 0.9% 250 ML IVPB SCH (13:13)
[2023-05-21] MEDS: IPRATROPIUM-ALBUTEROL 3 ML NEB INHALATION SCH ×3 (13:46→21:34)
--- NOTE | 2023-05-21 14:42 | CT ---
EXAMINATION TYPE: CT chest wo con DATE OF EXAM: 05/21/2023 COMPARISON: 11/30/2020 HISTORY: CAP CT DLP: 641.4 mGycm. Automated Exposure Control for Dose Reduction was Utilized. TECHNIQUE: CT scan of the thorax is performed without IV contrast. FINDINGS: The great vessels the chest are normal and there is no mediastinal, hilar or axillary adenopathy. There is mild cardiomegaly and a small pericardial effusion. There are partially consolidative and interstitial density Is no pleural effusion or pneumothorax. The osseous structures are intact. Limited scanning through the upper abdomen reveals cholecystectomy. No focal osseous lesions are seen. IMPRESSION: Bilateral lower lobe consolidative/airspace density and interstitial density consistent with pneumoni a. Clinical correlation short-term follow-up to resolution is recommended
[2023-05-21] MEDS: HYDROcodone/APAP 7.5-325MG 1 EACH TAB PO PRN ×2 (16:46→22:20)
[2023-05-21] MEDS: methylPREDNISolone SOD SUCCI 40 MG/ML 1 ML VIAL IV SCH ×2 (16:48→22:21)
[2023-05-21 18:21] LABS: Glucose,Whole Blood 367 mg/dL (70-110)
[2023-05-21] MEDS ORDERED: DEXTROSE 50% SYRINGE 50 ML IVP PRN ×2 (19:41)
[2023-05-21] MEDS ORDERED: NON FORMULARY DRUG (Losartan/Hydrochlorothiazide [Losartan-Hctz 100-25 Mg Tab] 1 EACH Tabl PO SCH (19:45)
[2023-05-21 20:36] LABS: Glucose,Whole Blood 308 mg/dL (70-110)
[2023-05-21] MEDS: atenoloL 50 MG TAB PO SCH (22:20)
[2023-05-21] MEDS: INSULIN ASPART (NovoLOG) 100 UNIT/ML VIAL SQ SCH (22:21)
[2023-05-21] MEDS: MONTELUKAST 10 MG TAB PO SCH (22:21)
[2023-05-22] MEDS: SODIUM CHLORIDE 0.9% 1,000 ML IV SCH ×2 (03:18→16:13)
[2023-05-22 06:13] LABS: Glucose,Whole Blood 331 mg/dL (70-110)
[2023-05-22] MEDS: HYDROcodone/APAP 7.5-325MG 1 EACH TAB PO PRN ×2 (06:27→20:39)
[2023-05-22] MEDS: INSULIN ASPART (NovoLOG) 100 UNIT/ML VIAL SQ SCH ×4 (06:28→20:40)
[2023-05-22] MEDS: HYDROmorphone 1 MG/ML 1 ML SYRINGE IVP PRN ×3 (08:26→18:42)
[2023-05-22] MEDS: LOSARTAN 50 MG TAB PO SCH (08:29)
[2023-05-22] MEDS: hydroCHLOROthiazide 25 MG TAB PO SCH (08:29)
[2023-05-22] MEDS: LORATADINE 10 MG TAB PO SCH (08:29)
[2023-05-22] MEDS: ASPIRIN 81 MG PO SCH (08:29)
[2023-05-22] MEDS: MAGNESIUM OXIDE 400 MG TAB PO SCH (08:29)
[2023-05-22] MEDS: atenoloL 50 MG TAB PO SCH ×2 (08:29→20:39)
[2023-05-22] MEDS: CLOPIDOGREL 75 MG TAB PO SCH (08:29)
[2023-05-22] MEDS: IPRATROPIUM-ALBUTEROL 3 ML NEB INHALATION SCH ×4 (08:30→20:39)
[2023-05-22] MEDS: methylPREDNISolone SOD SUCCI 40 MG/ML 1 ML VIAL IV SCH ×2 (08:30→16:20)
[2023-05-22] MEDS ORDERED: predniSONE 20 MG TAB PO SCH (09:00)
[2023-05-22] MEDS: AZITHROMYCIN 500 MG in SODIUM CHLORIDE 0.9% 250 ML IVPB SCH (09:22)
[2023-05-22 12:05] LABS: Glucose,Whole Blood 313 mg/dL (70-110)
--- NOTE | 2023-05-22 12:19 | P.GSCN ---
History of Present Illness Consult date: 05/22/23 Reason for Consult: Left lower quadrant pain History of present illness: Is a 67-year-old female who's had complete the left lower quadrant pain. Patient states that she has appears history of diverticulitis. She states her pain is similar to this. Past Medical History Past Medical History: Asthma, Coronary Artery Disease (CAD), COPD, Diabetes Mellitus, Deep Vein Thrombosis (DVT), GERD/Reflux, Hyperlipidemia, Hypertension, Musculoskeletal Disorder, Osteoarthritis (OA), Renal Disease, Sleep Apnea/ CPAP/BIPAP Additional Past Medical History / Comment(s): PUD, colitis, benign colon polyps, DVT L leg, migraines, ANDREW - uses cpap. kidney stones, CKD stage II, vertigo, recurrent L ear infections/ruptured eardrum, TMJ, mild CAD, back prob - NT Lt arm, leg. Edema BLE. covid + 01/19/2021 Last Myocardial Infarction Date:: 2009 History of Any Multi-Drug Resistant Organisms: None Reported Past Surgical History: Appendectomy, Cholecystectomy, Ear Surgery, Heart Catheterization, Hysterectomy, Joint Replacement, Orthopedic Surgery, Tonsillectomy Additional Past Surgical History / Comment(s): R/L knee arthroscopies, L ear patch/graft, EGD, colonoscopy/polypectomy, throat abscess. Right knee replacement, back surgery, Past Anesthesia/Blood Transfusion Reactions: Postoperative Nausea & Vomiting (PONV) Past Psychological History: Anxiety Additional Psychological History / Comment(s): Spouse has cancer Smoking Status: Never smoker Past Alcohol Use History: None Reported Past Drug Use History: None Reported - Past Family History Sister(s) Family Medical History: Cancer Father Family Medical History: Cancer Additional Family Medical History / Comment(s): Throat and brain cancer. Father was an alcoholic. Mother Family Medical History: Liver Disease Additional Family Medical History / Comment(s): Mother is . She was an alcoholic. Medications and Allergies Home Medications Medication Instructions Recorded Confirmed Type Montelukast [Singulair] 10 mg PO DAILY 10/17/20 05/21/23 History Aspirin [Adult Low Dose Aspirin EC] 81 mg PO DAILY 04/21/22 05/21/23 History Loratadine [Claritin] 10 mg PO DAILY 04/21/22 05/21/23 History Magnesium Oxide 400 mg PO DAILY 04/21/22 05/21/23 History Ipratropium-Albuterol Nebulize 3 ml INHALATION RT-QID PRN each 06/23/22 05/21/23 Rx [Duoneb 0.5 mg-3 mg/3 ml Soln] Albuterol Inhaler [Ventolin Hfa 1 - 2 puff INHALATION RT-Q6H PRN 05/21/23 12/03/05 History Inhaler] Budesonide 0.5 mg INHALATION RT-BID 05/21/23 05/21/23 History Dicyclomine [Bentyl] 10 mg PO TID 05/21/23 05/21/23 History Docusate [Colace] 100 mg PO DAILY 05/21/23 05/21/23 History FLUoxetine HCL [PROzac] 20 mg PO DAILY 05/21/23 05/21/23 History Gabapentin [Neurontin] 100 mg PO TID 05/21/23 05/21/23 History HYDROcodone/APAP 5-325MG [[place] 1 tab PO TID PRN 05/21/23 05/21/23 History 5-325] INSULIN ASPART (NovoLOG) [NovoLOG See Protocol SQ AC-TID 05/21/23 05/21/23 History (formulary)] Losartan/Hydrochlorothiazide 1 tab PO DAILY 05/21/23 05/21/23 History [Losartan-Hctz 100-25 mg Tab] Mirabegron [Myrbetriq] 50 mg PO DAILY 05/21/23 05/21/23 History Mirtazapine [Remeron] 15 mg PO HS 05/21/23 05/21/23 History Omeprazole 40 mg PO DAILY 05/21/23 05/21/23 History Allergies Allergy/AdvReac Type Severity Reaction Status Date / Time Iodinated Contrast Media Allergy Severe Anaphylaxis Verified 05/21/23 13:19 [Iodinated Contrast Media - IV Dye] iodine Allergy Anaphylaxis Verified 05/21/23 13:19 Emdygue-QHC-VsR Reductase Allergy Anaphylaxis Verified 05/21/23 13:19 Inhibitor [Adtqwri-Tju-Hcz Reductase Inhibitor] Surgical - Exam Vital Signs Temp Pulse Resp BP Pulse Ox 98.5 F 98 20 152/70 94 L 05/20/23 20:04 05/20/23 20:04 05/20/23 20:04 05/20/23 20:04 05/20/23 20:04 - General well developed, well nourished, no distress - Eyes PERRL - ENT normal pinna - Neck no masses - Respiratory normal expansion - Cardiovascular Rhythm: regular - Abdomen Abdomen: soft, non tender Results - Labs 05/20/23 22:10 05/20/23 22:10 Abnormal Lab Results - Last 24 Hours (Table) 05/21/23 05/21/23 05/21/23 Range/Units 12:50 12:50 18:20 D-Dimer 1.41 H (<0.60) mg/L FEU POC Glucose (mg/dL) 367 H (70-110) mg/dL Hemoglobin A1c (<=6.0) % Procalcitonin 0.12 H (0.02-0.09) ng/mL 05/21/23 05/22/23 05/22/23 Range/Units 20:34 03:33 06:09 D-Dimer (<0.60) mg/L FEU POC Glucose (mg/dL) 308 H 331 H (70-110) mg/dL Hemoglobin A1c 8.9 H (<=6.0) % Procalcitonin (0.02-0.09) ng/mL 05/22/23 Range/Units 12:03 D-Dimer (<0.60) mg/L FEU POC Glucose (mg/dL) 313 H (70-110) mg/dL Hemoglobin A1c (<=6.0) % Procalcitonin (0.02-0.09) ng/mL Diabetes panel 05/22/23 Range/Units 03:33 Hemoglobin A1c 8.9 H (<=6.0) % Assessment and Plan Plan: The patient is mildly tender left lower quadrant. Her computed tomography scan shows no evidence of active diverticulitis. If her pain persists she will need colonoscopy.
[2023-05-22] MEDS: NYSTATIN 100,000 UNIT/GM POWD 15 GM TOPICAL SCH ×2 (16:20→20:40)
[2023-05-22 17:08] LABS: Glucose,Whole Blood 363 mg/dL (70-110)
[2023-05-22] MEDS: PIPERACILLIN-TAZOBACTAM 3.375 GM in SODIUM CHLORIDE 0.9% 100 ML IVPB SCH (18:42)
[2023-05-22] MEDS: DAPAGLIFLOZIN PROPANEDIOL 10 MG TABLET PO SCH (18:50)
[2023-05-22 20:34] LABS: Glucose,Whole Blood 323 mg/dL (70-110)
[2023-05-22] MEDS: MONTELUKAST 10 MG TAB PO SCH (20:39)
--- NOTE | 2023-05-22 23:34 | HP ---
HISTORY AND PHYSICAL HISTORY OF PRESENT ILLNESS: The patient was examined in the emergency room on 05/21/2023. She came in with altered mental status, left lower quadrant abdominal pain, history of ovarian cysts, sharp pain, worse with movement. Denies fever, chills, cramping, associated with change in stool or bowel habits. She has a history of bad COPD, CHF related to cirrhosis. HOME MEDICINES: 1. Singulair 10 mg daily. 2. Aspirin 81 daily. 3. Claritin 10 daily. 4. Mag oxide 400 daily. 5. Tenormin 50 b.i.d. 6. Flexeril 5 b.i.d. 7. [place] 7.5 q.6. 8. NovoLog before meals and at bedtime. 9. Senna daily. REVIEW OF SYSTEMS: A 14-point review of systems otherwise negative. ALLERGIES: To iodine, statins. PAST MEDICAL HISTORY: Coronary artery disease, COPD, diabetes mellitus, DVT, GERD, dyslipidemia, hypertension, osteoarthritis, renal disease, sleep apnea, peptic ulcer disease, chronic kidney disease stage II, vertigo. SURGICAL HISTORY: Colonoscopy, polypectomy, throat abscess, right knee replacement, back surgery, knee arthroscopies. PAST PSYCH HISTORY: Anxiety. FAMILY HISTORY: Sister with cancer. Father with cancer of the throat and brain. Mother, liver disease. PHYSICAL EXAMINATION: VITAL SIGNS: Blood pressure is 150s to 170s over 70s to 80s, temp 98.5, pulse 98 to 99, O2 of 90% to 94% on room air. Blood pressure 160s to 170s over 70s to 80s. NEUROLOGIC: She is sleepy, lethargic, gives appropriate answers, but she falls back asleep. INTEGUMENT: Dry skin turgor, dry mucous membranes. CARDIOVASCULAR: S1, S2. LUNGS: Decreased breath sounds x4. HEMATOLOGY: Negative Homans. PSYCH: Fair mood and affect. ASSESSMENT: Left lower quadrant abdominal pain, unclear etiology. Get surgical consult. Chronic obstructive pulmonary disease and altered mental status, dehydration, prerenal azotemia, and hypertension acceleration. Home medications have been restarted. We will give her fluids. Hold her blood pressure medicines and start as needed. Rehydrate. Wait for surgical consult. Prognosis guarded. Please see further orders. MMODL / IJN: [id number] /
[2023-05-23] MEDS: PIPERACILLIN-TAZOBACTAM 3.375 GM in SODIUM CHLORIDE 0.9% 100 ML IVPB SCH ×4 (00:16→23:03)
[2023-05-23] MEDS: methylPREDNISolone SOD SUCCI 40 MG/ML 1 ML VIAL IV SCH ×4 (00:16→23:02)
[2023-05-23] MEDS: HYDROmorphone 1 MG/ML 1 ML SYRINGE IVP PRN (03:16)
[2023-05-23 06:40] LABS: Glucose,Whole Blood 216 mg/dL (70-110)
[2023-05-23] MEDS: SODIUM CHLORIDE 0.9% 1,000 ML IV SCH ×2 (06:45→17:27)
[2023-05-23] MEDS: HYDROcodone/APAP 7.5-325MG 1 EACH TAB PO PRN ×3 (06:47→20:11)
[2023-05-23] MEDS: INSULIN ASPART (NovoLOG) 100 UNIT/ML VIAL SQ SCH ×4 (06:48→20:12)
[2023-05-23] MEDS: AZITHROMYCIN 500 MG in SODIUM CHLORIDE 0.9% 250 ML IVPB SCH (08:19)
[2023-05-23] MEDS: ASPIRIN 81 MG PO SCH (08:22)
[2023-05-23] MEDS: atenoloL 50 MG TAB PO SCH ×2 (08:22→20:01)
[2023-05-23] MEDS: CLOPIDOGREL 75 MG TAB PO SCH (08:22)
[2023-05-23] MEDS: hydroCHLOROthiazide 25 MG TAB PO SCH (08:22)
[2023-05-23] MEDS: DAPAGLIFLOZIN PROPANEDIOL 10 MG TABLET PO SCH (08:22)
[2023-05-23] MEDS: LORATADINE 10 MG TAB PO SCH (08:22)
[2023-05-23] MEDS: MAGNESIUM OXIDE 400 MG TAB PO SCH (08:23)
[2023-05-23] MEDS: LOSARTAN 50 MG TAB PO SCH (08:23)
[2023-05-23] MEDS: NYSTATIN 100,000 UNIT/GM POWD 15 GM TOPICAL SCH ×3 (08:23→20:01)
[2023-05-23] MEDS: IPRATROPIUM-ALBUTEROL 3 ML NEB INHALATION SCH ×4 (09:01→19:35)
[2023-05-23 12:07] LABS: Glucose,Whole Blood 339 mg/dL (70-110)
--- NOTE | 2023-05-23 14:53 | P.PN ---
Subjective Progress Note Date: 05/23/23 CHIEF COMPLAINT: Left lower quadrant abdominal pain HISTORY OF PRESENT ILLNESS: Patient continues to report left lower quadrant abdominal pain. No evidence of diverticulitis computed tomography scan. She is having flatus. No bowel movement. She did have nausea earlier that's improved. No vomiting. She is being treated for pneumonia. Last colonoscopy several years ago. PHYSICAL EXAM: VITAL SIGNS: Reviewed. GENERAL: Well-developed in no acute distress. ABDOMEN: Soft. Nondistended. Tenderness to palpation left lower quadrant NEUROLOGIC: Alert and oriented. Cranial nerves II through XII grossly intact. ASSESSMENT: 1. Left lower quadrant abdominal pain PLAN: -Patient scheduled for colonoscopy on , 05/26/[address] argueta -Hold Plavix -Continue supportive care Physician Boner [employer] note has been reviewed by physician. Signing provider agrees with the documented findings, assessment, and plan of care. Objective - Vital Signs Vital signs: Vital Signs Temp 98.3 F 05/23/23 07:00 Pulse 76 05/23/23 12:20 Resp 16 05/23/23 07:00 BP 174/92 05/23/23 07:00 Pulse Ox 98 05/23/23 07:00 FiO2 Intake & Output 05/22/23 05/23/23 05/23/23 18:59 06:59 18:59 Other: Voiding Method Toilet Toilet # Voids 2 2 - Labs CBC & Chem 7: 05/20/23 22:10 05/20/23 22:10 Labs: Abnormal Lab Results - Last 24 Hours (Table) 05/22/23 05/22/23 05/23/23 Range/Units 17:06 20:32 06:39 POC Glucose (mg/dL) 363 H 323 H 216 H (70-110) mg/dL 05/23/23 Range/Units 12:06 POC Glucose (mg/dL) 339 H (70-110) mg/dL Microbiology - Last 24 Hours (Table) 05/21/23 13:05 Blood Culture - Preliminary Blood 05/21/23 12:50 Blood Culture - Preliminary Blood
[2023-05-23 17:33] LABS: Glucose,Whole Blood 283 mg/dL (70-110)
[2023-05-23] MEDS: GABAPENTIN 100 MG CAP PO SCH (20:01)
[2023-05-23] MEDS: MONTELUKAST 10 MG TAB PO SCH (20:01)
[2023-05-23 20:06] LABS: Glucose,Whole Blood 317 mg/dL (70-110)
--- NOTE | 2023-05-23 23:29 | PN ---
PROGRESS NOTE SUBJECTIVE: She feels better, but she is still weak. She has acute on chronic left lower quadrant abdominal pain. Surgery is working her up. OBJECTIVE: VITAL SIGNS: Blood pressure is high at 174/92, O2 of 90% on room air, temperature 98.3, pulse 74, respiratory rate 16 to 18. CARDIOVASCULAR: S1, S2. LUNGS: Scattered wheeze and rhonchi at the base. PSYCH: She has been more sleepy and lethargic lately than when I had seen her. She is alert, and oriented x3, but is more sleepy. ENDOCRINE: BMI is over 40. HEMATOLOGY: 2+ edema bilaterally. GI: There is tenderness to palpation in left lower quadrant. DIAGNOSTIC STUDIES: Abdominopelvic CT and chest CT even ordered. She has a small pericardial effusion, no cardiomegaly, partial consolidative with interstitial density positive for pneumonia. Get Pulmonary consult. Started on broad-spectrum antibiotics for community-acquired pneumonia, COPD exacerbation, and altered metabolic encephalopathy secondary to pneumonia. Continue current treatments. Get GI consult for surgery for left lower quadrant abdominal pain, which is why she came in with, which is worse. Wait for the recommendations. Please see further orders. PLAN: As mentioned above. Wait for Surgery consult. Start with broad-spectrum antibiotics. Pulmonary consult. MMODL / IJN: [id number] /
--- NOTE | 2023-05-23 23:37 | PN ---
PROGRESS NOTE SUBJECTIVE: Surgery has come to see this patient for abdominal pain. She has been treated for bilateral pneumonia, left lower quadrant pain. She is scheduled for colonoscopy on with Dr. Young. Plavix, supportive care. Unclear if she has severe diverticulitis, being treated for pneumonia, altered mental status secondary to encephalopathy, metabolic encephalopathy secondary to pneumonia. OBJECTIVE: VITAL SIGNS: Temperature 98, O2 of 93% on room air. She wears oxygen at night. Blood pressure is 150/73, pulse 61, respiratory rate 16 to 18. CARDIOVASCULAR: S1, S2. LUNGS: Scattered wheeze and rhonchi. HEMATOLOGY: 2 to 3+ edema. NEUROLOGIC: Cranial nerves intact. PSYCH: Fair mood and affect. PLAN: Continue current treatments. Hypertension controlled. Continue with breathing control. Blood cultures are pending. Continue current treatments for her breathing, etc. Workup for surgical pain at this time. Treat for bilateral pneumonia, bilateral antibiotics with 2 antibiotics. COPD, CHF will be treated in a typical fashion that she takes at home. Prognosis guarded. Please see further orders. MMODL / IJN: [id number] /
[2023-05-24] MEDS: HYDROmorphone 1 MG/ML 1 ML SYRINGE IVP PRN (03:52)
[2023-05-24 06:15] LABS: Glucose,Whole Blood 258 mg/dL (70-110)
[2023-05-24] MEDS: INSULIN ASPART (NovoLOG) 100 UNIT/ML VIAL SQ SCH ×4 (06:23→22:25)
[2023-05-24] MEDS: SODIUM CHLORIDE 0.9% 1,000 ML IV SCH ×2 (06:23→20:17)
[2023-05-24] MEDS: IPRATROPIUM-ALBUTEROL 3 ML NEB INHALATION SCH ×4 (08:16→20:46)
--- NOTE | 2023-05-24 09:27 | P.CNPUL ---
History of Present Illness Consult date: 05/23/23 Reason for consult: dyspnea, hypoxemia Chief complaint: Abdominal pain History of present illness: 67 year came into the left lower abdominal pain she does have a history of ovarian cyst she described pain being sharp and constant and worse with movement denies any fever or chills denies any nausea vomiting vaginal bleeding or cramping denies any low back pain denies injury or trauma. She does have a history of chronic intermittent asthma has been on the singular, hypertension and hypertensive cardiovascular disease, chronic pain syndrome, diabetes mellitus requiring insulin, peripheral neuropathy chronic constipation, patient has been on bronchodilator in the past as needed, coronary artery disease history of DVT, dyslipidemia, sleep apnea on CPAP, on arrival patient noted dry saturation 88%, chest x-ray suggestive of small lung volumes hypoventilation some patchy basilar atelectasis more so on the left side noted. Computed tomography scan of the chest bilateral lower lobe consolidation and infiltrate suggestive of pneumonia. radiographic images including ultrasound indicated above prior hysterectomy and right nephrectomy, labs include BUN/creatinine 13.1/39.8 platelet count 137 VBG 7.9 potassium is 3.6 sodium 141 BUN/creatinine 17/0.76 sugars 256, computed tomography scan of the non-pelvis lung bases no abnormality identified, status post cholecystectomy liver suggestive of fatty infiltration and hepatocellular disease nonobstructing calculi in the lower pole of the kidney. Currently patient is on pain management with Tylenol and as well as hydrocodone, bronchodilators with DuoNeb as needed and 4 times a day, patient is being continued on aspirin and atenolol hydrochlorothiazide declined for severe pain and pain Neurontin is being continued for neuropathy sliding scale insulin IV Solu-Medrol 40 mg every 8 patient is also on Zosyn and azithromycin has been discontinued Review of Systems All systems: negative Past Medical History Past Medical History: Asthma, Coronary Artery Disease (CAD), COPD, Diabetes Mellitus, Deep Vein Thrombosis (DVT), GERD/Reflux, Hyperlipidemia, Hypertension, Musculoskeletal Disorder, Osteoarthritis (OA), Renal Disease, Sleep Apnea/CPAP/BIPAP Additional Past Medical History / Comment(s): PUD, colitis, benign colon polyps, DVT L leg, migraines, ANDREW - uses cpap. kidney stones, CKD stage II, vertigo, recurrent L ear infections/ruptured eardrum, TMJ, mild CAD, back prob - NT Lt arm, leg. Edema BLE. covid + 01/19/2021 Last Myocardial Infarction Date:: 2009 History of Any Multi-Drug Resistant Organisms: None Reported Past Surgical History: Appendectomy, Cholecystectomy, Ear Surgery, Heart Catheterization, Hysterectomy, Joint Replacement, Orthopedic Surgery, Tonsillectomy Additional Past Surgical History / Comment(s): R/L knee arthroscopies, L ear patch/graft, EGD, colonoscopy/polypectomy, throat abscess. Right knee replacement, back surgery, Past Anesthesia/Blood Transfusion Reactions: Postoperative Nausea & Vomiting (PONV) Past Psychological History: Anxiety Additional Psychological History / Comment(s): Spouse has cancer Smoking Status: Never smoker Past Alcohol Use History: None Reported Past Drug Use History: None Reported - Past Family History Sister(s) Family Medical History: Cancer Father Family Medical History: Cancer Additional Family Medical History / Comment(s): Throat and brain cancer. Father was an alcoholic. Mother Family Medical History: Liver Disease Additional Family Medical History / Comment(s): Mother is . She was an alcoholic. Medications and Allergies Home Medications Medication Instructions Recorded Confirmed Type Montelukast [Singulair] 10 mg PO DAILY 10/17/20 05/21/23 History Aspirin [Adult Low Dose Aspirin EC] 81 mg PO DAILY 04/21/22 05/21/23 History Loratadine [Claritin] 10 mg PO DAILY 04/21/22 05/21/23 History Magnesium Oxide 400 mg PO DAILY 04/21/22 05/21/23 History Ipratropium-Albuterol Nebulize 3 ml INHALATION RT-QID PRN each 06/23/22 05/21/23 Rx [Duoneb 0.5 mg-3 mg/3 ml Soln] Albuterol Inhaler [Ventolin Hfa 1 - 2 puff INHALATION RT-Q6H PRN 05/21/23 05/21/23 History Inhaler] Budesonide 0.5 mg INHALATION RT-BID 05/21/23 05/21/23 History Dicyclomine [Bentyl] 10 mg PO TID 05/21/23 05/21/23 History Docusate [Colace] 100 mg PO DAILY 05/21/23 05/21/23 History FLUoxetine HCL [PROzac] 20 mg PO DAILY 05/21/23 05/21/23 History Gabapentin [Neurontin] 100 mg PO TID 05/21/23 05/21/23 History HYDROcodone/APAP 5-325MG [[place] 1 tab PO TID PRN 05/21/23 05/21/23 History 5-325] INSULIN ASPART (NovoLOG) [NovoLOG See Protocol SQ AC-TID 05/21/23 05/21/23 History (formulary)] Losartan/Hydrochlorothiazide 1 tab PO DAILY 05/21/23 05/21/23 History [Losartan-Hctz 100-25 mg Tab] Mirabegron [Myrbetriq] 50 mg PO DAILY 05/21/23 05/21/23 History Mirtazapine [Remeron] 15 mg PO HS 05/21/23 05/21/23 History Omeprazole 40 mg PO DAILY 05/21/23 05/21/23 History Allergies Allergy/AdvReac Type Severity Reaction Status Date / Time Iodinated Contrast Media Allergy Severe Anaphylaxis Verified 05/21/23 13:19 [Iodinated Contrast Media - IV Dye] iodine Allergy Anaphylaxis Verified 05/21/23 13:19 Puirwla-BKK-VjQ Reductase Allergy Anaphylaxis Verified 05/21/23 13:19 Inhibitor [Jatqzwp-Pfv-Tmb Reductase Inhibitor] Physical Exam Vitals: Vital Signs Temp Pulse Pulse Resp BP Pulse Ox 05/23/23 15:04 98.0 F 61 16 150/73 93 L 05/23/23 12:20 76 05/23/23 12:08 76 05/23/23 09:12 76 05/23/23 09:01 76 05/23/23 07:00 98.3 F 74 16 174/92 98 05/23/23 02:00 97.6 F 74 16 155/84 98 05/23/23 01:52 80 20 05/22/23 20:52 75 05/22/23 20:39 73 05/22/23 20:00 97.6 F 80 20 174/91 96 Intake and Output 05/23/23 05/23/23 05/23/23 06:59 14:59 22:59 Other: Voiding Method Toilet # Voids 2 - Constitutional General appearance: cooperative, disheveled, morbidly obese - EENT Eyes: EOMI, PERRLA ENT: normal oropharynx Ears: bilateral: normal - Neck Neck: normal ROM Carotids: bilateral: upstroke normal Thyroid: bilateral: normal size - Respiratory Respiratory: bilateral: CTA (Upper), diminished (At the bases posteriorly otherwise clear to auscultation) - Cardiovascular Rhythm: regular Heart sounds: normal: S1, S2 - Gastrointestinal General gastrointestinal: normal bowel sounds - Integumentary Integumentary: normal turgor - Neurologic Neurologic: CNII-XII intact - Musculoskeletal Musculoskeletal: gait normal, generalized weakness, strength equal bilaterally - Psychiatric Psychiatric: A&O x's 3, appropriate affect, intact judgment & insight Results - Laboratory Findings CBC and BMP: 05/20/23 22:10 05/20/23 22:10 PT/INR, D-dimer D-Dimer 1.41 mg/L FEU (<0.60) H 05/21/23 12:50 Abnormal lab findings: Abnormal Labs 05/20/23 05/20/23 05/21/23 22:10 22:10 03:45 Plt Count 137 L D-Dimer Glucose 256 H POC Glucose (mg/dL) Hemoglobin A1c Procalcitonin Urine WBC 15 H Urine Bacteria Rare H Urine Mucus Occasional H 05/21/23 05/21/23 05/21/23 12:50 12:50 18:20 Plt Count D-Dimer 1.41 H Glucose POC Glucose (mg/dL) 367 H Hemoglobin A1c Procalcitonin 0.12 H Urine WBC Urine Bacteria Urine Mucus 05/21/23 05/22/23 05/22/23 20:34 03:33 06:09 Plt Count D-Dimer Glucose POC Glucose (mg/dL) 308 H 331 H Hemoglobin A1c 8.9 H Procalcitonin Urine WBC Urine Bacteria Urine Mucus 05/22/23 05/22/23 05/22/23 12:03 17:06 20:32 Plt Count D-Dimer Glucose POC Glucose (mg/dL) 313 H 363 H 323 H Hemoglobin A1c Procalcitonin Urine WBC Urine Bacteria Urine Mucus 05/23/23 05/23/23 06:39 12:06 Plt Count D-Dimer Glucose POC Glucose (mg/dL) 216 H 339 H Hemoglobin A1c Procalcitonin Urine WBC Urine Bacteria Urine Mucus - Diagnostic Findings Chest x-ray: report reviewed, image reviewed CT scan - chest: report reviewed, image reviewed (Danielle treatment indicated above) Assessment and Plan Assessment: Acute hypoxic respiratory failure related to bilateral pneumonia Bilateral basal pneumonia community-acquired, patient has been adequately treated with Zithromax and Zosyn as mixed bacterial pneumonia highly likely Obesity hypoventilation syndrome on supplemental oxygen educated about deep breathing sense incentive spirometry Obstructive sleep apnea patient has been on CPAP will continue to monitor observe on that Type 2 diabetes mellitus with hyperglycemia uncontrolled, patient is on sliding scale insulin Peripheral neuropathy, on Neurontin Chronic pain syndrome patient is being continued on hydrocortisone Chronic intermittent asthma continue bronchodilator continue IV steroids however start tapering it down in next 24 hours Plan: As noted above Time with Patient: Greater than 30
--- NOTE | 2023-05-24 09:33 | P.PN ---
Subjective Progress Note Date: 05/24/23 Principal diagnosis: Acute hypoxic respiratory failure related to bilateral pneumonia Bilateral basal pneumonia community-acquired, Obesity hypoventilation syndrome Obstructive sleep apnea Type 2 diabetes mellitus with hyperglycemia uncontrolled, Peripheral neuropathy, Chronic pain syndrome Chronic intermittent asthma Upper abdominal pain for unclear etiology suspect may very well be related to bilateral basal pneumonia 05/24/2023, patient seen eval examined during the rounds slightly better able to use his CPAP machine throughout the night, patient is more alert and awake, intermittent cough is present still on 2 L oxygen saturation mid 90s he remains afebrile patient feel congested intermittent sputum is present but severity has improved the last few days pain in the abdomen has improved as well, at room air saturation is 91% on 4 L 98%. Blood glucose noted to be made 200 to low 300 range 67 year came into the left lower abdominal pain she does have a history of ovarian cyst she described pain being sharp and constant and worse with movement denies any fever or chills denies any nausea vomiting vaginal bleeding or cramping denies any low back pain denies injury or trauma. She does have a history of chronic intermittent asthma has been on the singular, hypertension and hypertensive cardiovascular disease, chronic pain syndrome, diabetes meño itus requiring insulin, peripheral neuropathy chronic constipation, patient has been on bronchodilator in the past as needed, coronary artery disease history of DVT, dyslipidemia, sleep apnea on CPAP, on arrival patient noted dry saturation 88%, chest x-ray suggestive of small lung volumes hypoventilation some patchy basilar atelectasis more so on the left side noted. Computed tomography scan of the chest bilateral lower lobe consolidation and infiltrate suggestive of pneumonia. radiographic images including ultrasound indicated above prior hysterectomy and right nephrectomy, labs include BUN/creatinine 13.1/39.8 platelet count 137 VBG 7.9 potassium is 3.6 sodium 141 BUN/creatinine 17/0.76 sugars 256, computed tomography scan of the non-pelvis lung bases no abnormality identified, status post cholecystectomy liver suggestive of fatty infiltration and hepatocellular disease nonobstructing calculi in the lower pole of the kidney. Currently patient is on pain management with Tylenol and as well as hydrocodone, bronchodilators with DuoNeb as needed and 4 times a day, patient is being continued on aspirin and atenolol hydrochlorothiazide declined for severe pain and pain Neurontin is being continued for neuropathy sliding scale insulin IV Solu-Medrol 40 mg every 8 patient is also on Zosyn and azithromycin has been discontinued Objective - Vital Signs Vital signs: Vital Signs Temp 97.8 F 05/24/23 08:27 Pulse 72 05/24/23 08:28 Resp 16 05/24/23 08:27 BP 196/82 05/24/23 02:00 Pulse Ox 91 L 05/24/23 08:27 FiO2 Intake & Output 05/23/23 05/24/23 05/24/23 18:59 06:59 18:59 Other: Voiding Method Toilet # Voids 2 2 4 # Bowel Movements 1 - Exam - Constitutional General appearance: cooperative, disheveled, morbidly obese - EENT Eyes: EOMI, PERRLA ENT: normal oropharynx Ears: bilateral: normal - Neck Neck: normal ROM Carotids: bilateral: upstroke normal Thyroid: bilateral: normal size - Respiratory Respiratory: bilateral: CTA (Upper), diminished (At the bases posteriorly otherwise clear to auscultation) - Cardiovascular Rhythm: regular Heart sounds: normal: S1, S2 - Gastrointestinal General gastrointestinal: normal bowel sounds - Integumentary Integumentary: normal turgor - Neurologic Neurologic: CNII-XII intact - Musculoskeletal Musculoskeletal: gait normal, generalized weakness, strength equal bilaterally - Psychiatric Psychiatric: A&O x's 3, appropriate affect, intact judgment & insight - Labs CBC & Chem 7: 05/20/23 22:10 05/20/23 22:10 Labs: Abnormal Lab Results - Last 24 Hours (Table) 05/23/23 05/23/23 05/23/23 Range/Units 12:06 17:31 20:05 POC Glucose (mg/dL) 339 H 283 H 317 H (70-110) mg/dL 05/24/23 Range/Units 06:14 POC Glucose (mg/dL) 258 H (70-110) mg/dL Microbiology - Last 24 Hours (Table) 05/21/23 13:05 Blood Culture - Preliminary Blood 05/21/23 12:50 Blood Culture - Preliminary Blood Assessment and Plan Assessment: Acute hypoxic respiratory failure related to bilateral pneumonia, on supplemental oxygen Bilateral basal pneumonia community-acquired, patient has been adequately treated with Zithromax and Zosyn as mixed bacterial pneumonia highly likely Obesity hypoventilation syndrome on supplemental oxygen educated about deep breathing sense incentive spirometry Obstructive sleep apnea patient has been on CPAP will continue to monitor observe on that Type 2 diabetes mellitus with hyperglycemia uncontrolled, patient is on sliding scale insulin Peripheral neuropathy, on Neurontin Chronic pain syndrome patient is being continued on hydrocortisone Chronic intermittent asthma continue bronchodilator continue IV steroids however start tapering it down in next 24 hours Plan: As noted above Time with Patient: Greater than 30
[2023-05-24] MEDS: DAPAGLIFLOZIN PROPANEDIOL 10 MG TABLET PO SCH (09:46)
[2023-05-24] MEDS: hydroCHLOROthiazide 25 MG TAB PO SCH (09:46)
[2023-05-24] MEDS: atenoloL 50 MG TAB PO SCH ×2 (09:46→20:17)
[2023-05-24] MEDS: methylPREDNISolone SOD SUCCI 40 MG/ML 1 ML VIAL IV SCH ×3 (09:46→22:26)
[2023-05-24] MEDS: PIPERACILLIN-TAZOBACTAM 3.375 GM in SODIUM CHLORIDE 0.9% 100 ML IVPB SCH ×3 (09:46→23:17)
[2023-05-24] MEDS: LOSARTAN 50 MG TAB PO SCH (09:46)
[2023-05-24] MEDS: LORATADINE 10 MG TAB PO SCH (09:46)
[2023-05-24] MEDS: GABAPENTIN 100 MG CAP PO SCH ×3 (09:47→20:17)
[2023-05-24] MEDS: NYSTATIN 100,000 UNIT/GM POWD 15 GM TOPICAL SCH ×3 (09:47→20:18)
[2023-05-24] MEDS: MAGNESIUM OXIDE 400 MG TAB PO SCH (09:47)
[2023-05-24] MEDS: ASPIRIN 81 MG PO SCH (09:47)
[2023-05-24 11:07] LABS: Basophils # (A) 0.01 X 10*3/uL (0.00-0.10); Basophils % (A) 0.1 %; Eosinophils # (A) 0 X 10*3/uL (0.04-0.35); Eosinophils % (A) 0 %; HCT 33.2 % (37.2-46.3); HGB 10.8 g/dL (12.0-15.0); Lymphocytes # (A) 0.88 X 10*3/uL (0.90-5.00); Lymphocytes % (A) 11.9 %; MCH 30.7 pg (27.0-32.0); MCHC 32.5 g/dL (32.0-37.0); MCV 94.3 FL (80.0-97.0); Mean Platelet Volume 11.9 FL (9.5-12.2); Monocytes # (A) 0.22 X 10*3/uL (0.20-1.00); NRBC Per 100 WBC 0 X 10*3/uL (0.00-0.01); Neutrophils # (A) 6.19 X 10*3/uL (1.80-7.70); Neutrophils % (A) 83.8 %; Platelet Count 129 X 10*3/uL (140-440); RBC 3.52 X 10*6/uL (4.10-5.20); RDW 13.3 % (11.5-14.5); WBC 7.39 X 10*3/uL (4.50-10.00)
[2023-05-24 11:23] LABS: ALT 55 U/L (8-44); AST 15 U/L (13-35); Albumin 3.8 g/dL (3.8-4.9); Albumin/Globulin Ratio 2.11 Ratio (1.60-3.17); Alkaline Phosphatase 73 U/L (41-126); BUN/Creat Ratio 20.64 Ratio (12.00-20.00); Blood Urea Nitrogen 22.7 mg/dL (9.0-27.0); Calcium 9.8 mg/dL (8.7-10.3); Carbon Dioxide 29.8 mmol/L (21.6-31.8); Chloride 103 mmol/L (96-109); Globulin 1.8 g/dL (1.6-3.3); Glucose 251 mg/dL (70-110); Potassium 4.1 mmol/L (3.5-5.5); Sodium 143 mmol/L (135-145); Total Bilirubin 0.5 mg/dL (0.3-1.2); Total Protein 5.6 g/dL (6.2-8.2)
[2023-05-24 12:21] LABS: Glucose,Whole Blood 294 mg/dL (70-110)
[2023-05-24] MEDS: HYDROcodone/APAP 7.5-325MG 1 EACH TAB PO PRN (13:46)
--- NOTE | 2023-05-24 16:22 | P.PN ---
Subjective Progress Note Date: 05/24/23 CHIEF COMPLAINT: Left lower quadrant abdominal pain HISTORY OF PRESENT ILLNESS: Patient continues to report left lower quadrant abdominal pain. No evidence of diverticulitis computed tomography scan. She is having flatus. No bowel movement. She denies any nausea or vomiting. Afebrile. WBC 7.39 Hgb 10.8 PHYSICAL EXAM: VITAL SIGNS: Reviewed. GENERAL: Well-developed in no acute distress. ABDOMEN: Soft. Nondistended. Tenderness to palpation left lower quadrant NEUROLOGIC: Alert and oriented. Cranial nerves II through XII grossly intact. ASSESSMENT: 1. Left lower quadrant abdominal pain 2. Pneumonia PLAN: -Patient scheduled for colonoscopy on , 05/26/[address] argueta -Hold Plavix -Continue supportive care -Start clear liquid diet in a.m. -Start GoLYTELY bowel prep in AM Physician Water Mangle Tender note has been reviewed by physician. Signing provider agrees with the documented findings, assessment, and plan of care. Objective - Vital Signs Vital signs: Vital Signs Temp 97.8 F 05/24/23 08:27 Pulse 72 05/24/23 12:16 Resp 16 05/24/23 08:27 BP 182/78 05/24/23 09:45 Pulse Ox 91 L 05/24/23 08:27 FiO2 Intake & Output 05/23/23 05/24/23 05/24/23 18:59 06:59 18:59 Other: Voiding Method Toilet Bedside Commode # Voids 2 2 4 # Bowel Movements 1 - Labs CBC & Chem 7: 05/24/23 06:27 05/24/23 06:27 Labs: Abnormal Lab Results - Last 24 Hours (Table) 05/23/23 05/23/23 05/24/23 Range/Units 17:31 20:05 06:14 RBC (4.10-5.20) X 10*6/uL Hgb (12.0-15.0) g/dL Hct (37.2-46.3) % Plt Count (140-440) X 10*3/uL Immature Gran # (0.00-0.04) X 10*3/uL Lymphocytes # (0.90-5.00) X 10*3/uL Eosinophils # (0.04-0.35) X 10*3/uL Est GFR (CKD-EPI) (>=60) BUN/Creatinine Ratio (12.00-20.00) Ratio Glucose (70-110) mg/dL POC Glucose (mg/dL) 283 H 317 H 258 H (70-110) mg/dL ALT (8-44) U/L Total Protein (6.2-8.2) g/dL 05/24/23 05/24/23 05/24/23 Range/Units 06:27 06:27 12:20 RBC 3.52 L (4.10-5.20) X 10*6/uL Hgb 10.8 L (12.0-15.0) g/dL Hct 33.2 L (37.2-46.3) % Plt Count 129 L (140-440) X 10*3/uL Immature Gran # 0.09 H (0.00-0.04) X 10*3/uL Lymphocytes # 0.88 L (0.90-5.00) X 10*3/uL Eosinophils # 0 L (0.04-0.35) X 10*3/uL Est GFR (CKD-EPI) 55 L (>=60) BUN/Creatinine Ratio 20.64 H (12.00-20.00) Ratio Glucose 251 H (70-110) mg/dL POC Glucose (mg/dL) 294 H (70-110) mg/dL ALT 55 H (8-44) U/L Total Protein 5.6 L (6.2-8.2) g/dL Microbiology - Last 24 Hours (Table) 05/21/23 13:05 Blood Culture - Preliminary Blood 05/21/23 12:50 Blood Culture - Preliminary Blood
[2023-05-24 17:14] LABS: Glucose,Whole Blood 306 mg/dL (70-110)
[2023-05-24] MEDS: MONTELUKAST 10 MG TAB PO SCH (20:17)
[2023-05-24 22:22] LABS: Glucose,Whole Blood 252 mg/dL (70-110)
[2023-05-25] MEDS: HYDROcodone/APAP 7.5-325MG 1 EACH TAB PO PRN ×3 (02:26→23:57)
--- NOTE | 2023-05-25 03:50 | PN ---
PROGRESS NOTE SUBJECTIVE: A 67-year-old white female with bilateral pneumonia. IV antibiotics have been given x2. Hemoglobin is 10.8, sodium 143, potassium 4.1, GFR 65. Sugars 200 to 300s. AST is 55. OBJECTIVE: VITAL SIGNS: Temperature 97.5, blood pressure is 150s to 180s. O2 saturating 98% to 95% on room air. CARDIOVASCULAR: S1, S2. LUNGS: Clear. GI: Soft. Hematology: Negative Homans. PSYCH: She is sleepy, lethargic. PLAN: She is going to get a colonoscopy on . Continue current treatment for bilateral pneumonia, oxygen as tolerated, steroids, antibiotics, IV updrafts. Prognosis guarded. Follow up in the next 24 to 48 hours. MMODL / IJN: [id number] /
[2023-05-25 05:42] LABS: Glucose,Whole Blood 238 mg/dL (70-110)
[2023-05-25] MEDS: INSULIN ASPART (NovoLOG) 100 UNIT/ML VIAL SQ SCH ×4 (05:45→21:35)
[2023-05-25] MEDS: IPRATROPIUM-ALBUTEROL 3 ML NEB INHALATION SCH ×4 (08:22→21:01)
[2023-05-25] MEDS: LORATADINE 10 MG TAB PO SCH (08:44)
[2023-05-25] MEDS: hydroCHLOROthiazide 25 MG TAB PO SCH (08:44)
[2023-05-25] MEDS: DAPAGLIFLOZIN PROPANEDIOL 10 MG TABLET PO SCH (08:44)
[2023-05-25] MEDS: MAGNESIUM OXIDE 400 MG TAB PO SCH (08:44)
[2023-05-25] MEDS: methylPREDNISolone SOD SUCCI 40 MG/ML 1 ML VIAL IV SCH ×3 (08:45→23:56)
[2023-05-25] MEDS: ASPIRIN 81 MG PO SCH (08:45)
[2023-05-25] MEDS: atenoloL 50 MG TAB PO SCH ×2 (08:45→21:02)
[2023-05-25] MEDS: LOSARTAN 50 MG TAB PO SCH (08:45)
[2023-05-25] MEDS: PIPERACILLIN-TAZOBACTAM 3.375 GM in SODIUM CHLORIDE 0.9% 100 ML IVPB SCH ×3 (08:45→23:56)
[2023-05-25] MEDS: SODIUM CHLORIDE 0.9% 1,000 ML IV SCH ×2 (08:46→23:57)
[2023-05-25] MEDS: NYSTATIN 100,000 UNIT/GM POWD 15 GM TOPICAL SCH ×3 (08:46→21:05)
[2023-05-25] MEDS: GABAPENTIN 100 MG CAP PO SCH ×3 (08:47→21:03)
[2023-05-25] MEDS ORDERED: PEG 3350 (236 GM/BTL) + LYTES 4,000 ML BOTTLE PO ONE (09:00)
[2023-05-25 12:18] LABS: Glucose,Whole Blood 250 mg/dL (70-110)
--- NOTE | 2023-05-25 16:14 | P.PN ---
Subjective Progress Note Date: 05/25/23 CHIEF COMPLAINT: Left lower quadrant abdominal pain HISTORY OF PRESENT ILLNESS: Patient continues to report left lower quadrant abdominal pain. No evidence of diverticulitis computed tomography scan. Afe brile. PHYSICAL EXAM: VITAL SIGNS: Reviewed. GENERAL: Well-developed in no acute distress. ABDOMEN: Soft. Nondistended. Tenderness to palpation left lower quadrant NEUROLOGIC: Alert and oriented. Cranial nerves II through XII grossly intact. ASSESSMENT: 1. Left lower quadrant abdominal pain 2. Pneumonia PLAN: -Patient scheduled for colonoscopy on , 05/26/[address] kendall Gould bowel prep today with clear liquid diet -Nothing by mouth after midnight -Hold Plavix Physician Attendant [place] note has been reviewed by physician. Signing provider agrees with the documented findings, assessment, and plan of care. Objective - Vital Signs Vital signs: Vital Signs Temp 97.6 F 05/25/23 02:00 Pulse 74 05/25/23 08:37 Resp 16 05/25/23 02:00 BP 183/79 05/25/23 02:00 Pulse Ox 96 05/25/23 08:24 FiO2 Intake & Output 05/24/23 05/25/23 05/25/23 18:59 06:59 18:59 Intake Total 118 Balance 118 Intake: Oral 118 Other: Voiding Method Bedside Commode Bedside Commode # Voids 2 1 - Labs CBC & Chem 7: 05/24/23 06:27 05/24/23 06:27 Labs: Abnormal Lab Results - Last 24 Hours (Table) 05/24/23 05/24/23 05/24/23 Range/Units 06:27 06:27 12:20 RBC 3.52 L (4.10-5.20) X 10*6/uL Hgb 10.8 L (12.0-15.0) g/dL Hct 33.2 L (37.2-46.3) % Plt Count 129 L (140-440) X 10*3/uL Immature Gran # 0.09 H (0.00-0.04) X 10*3/uL Lymphocytes # 0.88 L (0.90-5.00) X 10*3/uL Eosinophils # 0 L (0.04-0.35) X 10*3/uL Est GFR (CKD-EPI) 55 L (>=60) BUN/Creatinine Ratio 20.64 H (12.00-20.00) Ratio Glucose 251 H (70-110) mg/dL POC Glucose (mg/dL) 294 H (70-110) mg/dL ALT 55 H (8-44) U/L Total Protein 5.6 L (6.2-8.2) g/dL 05/24/23 05/24/23 05/25/23 Range/Units 17:12 22:20 05:41 RBC (4.10-5.20) X 10*6/uL Hgb (12.0-15.0) g/dL Hct (37.2-46.3) % Plt Count (140-440) X 10*3/uL Immature Gran # (0.00-0.04) X 10*3/uL Lymphocytes # (0.90-5.00) X 10*3/uL Eosinophils # (0.04-0.35) X 10*3/uL Est GFR (CKD-EPI) (>=60) BUN/Creatinine Ratio (12.00-20.00) Ratio Glucose (70-110) mg/dL POC Glucose (mg/dL) 306 H 252 H 238 H (70-110) mg/dL ALT (8-44) U/L Total Protein (6.2-8.2) g/dL Microbiology - Last 24 Hours (Table) 05/21/23 13:05 Blood Culture - Preliminary Blood 05/21/23 12:50 Blood Culture - Preliminary Blood
[2023-05-25 17:38] LABS: Glucose,Whole Blood 229 mg/dL (70-110)
[2023-05-25] MEDS: PANTOPRAZOLE 40 MG TABLET PO SCH (18:00)
[2023-05-25] MEDS: BUMETANIDE 1 MG TAB PO SCH (18:38)
[2023-05-25] MEDS: MONTELUKAST 10 MG TAB PO SCH (21:03)
[2023-05-25 21:11] LABS: Glucose,Whole Blood 168 mg/dL (70-110)
--- NOTE | 2023-05-25 22:31 | PN ---
PROGRESS NOTE SUBJECTIVE: A 67-year-old white female, came with COPD, chronic pain, acute hypoxemic respiratory failure. The patient is weak and fatigued. She is going to get scoped for colonoscopy tomorrow, is taking a prep today. OBJECTIVE: VITAL SIGNS: Temp 98, blood pressure is up to 182/82, O2 of 96% on room air, pulse 70, respiratory rate 16 to 18. CARDIOVASCULAR: S1, S2. GI: Has tenderness to palpation, left lower quadrant. HEMATOLOGIC: 2+ edema. ASSESSMENT: Left lower quadrant abdominal pain, bilateral pneumonia, acute hypoxemic respiratory failure secondary to pneumonia, community-acquired pneumonia, chronic obstructive pulmonary disease, asthma, generalized weakness, morbid obesity. Prognosis extremely guarded. Continue with IV antibiotics. PT, OT, colonoscopy tomorrow. Blood pressure control. Please see further orders. Possible discharge home with oral antibiotics when she clears from Surgery. MMODL / IJN: [id number] /
[2023-05-26] MEDS ORDERED: LACTATED RINGERS 1,000 ML IV SCH (05:44)
[2023-05-26] MEDS ORDERED: LIDOCAINE 1% (10MG/ML) FOR IV START INTRADERMA PRN (05:44)
[2023-05-26 06:11] LABS: Glucose,Whole Blood 213 mg/dL (70-110)
[2023-05-26 06:16] LABS: HCT 39.3 % (34.0-46.0); HGB 12.9 gm/dL (11.4-16.0); MCH 30.8 pg (25.0-35.0); MCHC 32.8 g/dL (31.0-37.0); MCV 93.9 fL (80.0-100.0); Mean Platelet Volume 9.4; Platelet Count 138 k/uL (150-450); RBC 4.19 m/uL (3.80-5.40); RDW 13.5 % (11.5-15.5); WBC 6.1 k/uL (3.8-10.6)
[2023-05-26] MEDS: PANTOPRAZOLE 40 MG TABLET PO SCH ×2 (06:19→18:01)
[2023-05-26 06:28] LABS: ALT 54 U/L (4-34); AST 31 U/L (14-36); African American GFR (CKD) 69 (>60 ml/min/1.73 sqM); Albumin 3.6 g/dL (3.5-5.0); Albumin/Globulin Ratio 1.6; Alkaline Phosphatase 67 U/L (38-126); Anion Gap 13 mmol/L; Blood Urea Nitrogen 24 mg/dL (7-17); Calcium 8.9 mg/dL (8.4-10.2); Carbon Dioxide 30 mmol/L (22-30); Chloride 95 mmol/L (98-107); Globulin 2.3 g/dL; Glucose 193 mg/dL (74-99); Non-African American GFR(CKD) 60 (>60 ml/min/1.73 sqM); Potassium 3.8 mmol/L (3.5-5.1); Sodium 138 mmol/L (137-145); Total Bilirubin 1.1 mg/dL (0.2-1.3); Total Protein 5.9 g/dL (6.3-8.2)
[2023-05-26] MEDS ORDERED: HYDROmorphone 0.5 MG/0.5 ML SYRINGE IVP PRN (07:00)
[2023-05-26] MEDS: IPRATROPIUM-ALBUTEROL 3 ML NEB INHALATION SCH ×3 (08:50→15:53)
[2023-05-26] MEDS: INSULIN ASPART (NovoLOG) 100 UNIT/ML VIAL SQ SCH ×3 (08:53→18:01)
[2023-05-26] MEDS: LORATADINE 10 MG TAB PO SCH (08:59)
[2023-05-26] MEDS: LOSARTAN 50 MG TAB PO SCH (08:59)
[2023-05-26] MEDS: atenoloL 50 MG TAB PO SCH (08:59)
[2023-05-26] MEDS: MAGNESIUM OXIDE 400 MG TAB PO SCH (08:59)
[2023-05-26] MEDS: methylPREDNISolone SOD SUCCI 40 MG/ML 1 ML VIAL IV SCH ×2 (08:59→16:14)
[2023-05-26] MEDS: PIPERACILLIN-TAZOBACTAM 3.375 GM in SODIUM CHLORIDE 0.9% 100 ML IVPB SCH ×2 (09:00→16:14)
[2023-05-26] MEDS: GABAPENTIN 100 MG CAP PO SCH ×2 (09:07→16:14)
[2023-05-26] MEDS: DAPAGLIFLOZIN PROPANEDIOL 10 MG TABLET PO SCH (09:07)
[2023-05-26] MEDS: NYSTATIN 100,000 UNIT/GM POWD 15 GM TOPICAL SCH ×2 (09:07→16:14)
[2023-05-26] MEDS ORDERED: LABETALOL 5 MG/ML VIAL MDV ONE (09:41)
[2023-05-26] MEDS ORDERED: PROPOFOL 10 MG/ML 20 ML VIAL IV ONE (09:41)
[2023-05-26] MEDS ORDERED: LIDOCAINE 1% INJ 10MG/ML (20 ML MDV) ONE (09:41)
[2023-05-26] MEDS ORDERED: IV FLUID CONTINUATION 900 ML IV ONE (09:42)
--- NOTE | 2023-05-26 10:01 | P.OP ---
Date of Procedure: 05/26/23 Preoperative Diagnosis: Left lower quadrant pain Postoperative Diagnosis: Mild diverticulosis Poor colon prep Anesthesia: MAC Surgeon: Morgan Alfonso Pathology: none sent Condition: stable Disposition: PACU Description of Procedure: Patient's placed on the endoscopy table in the lateral position. She received IV sedation. Digital rectal exam was performed. This revealed no abnormalities. The possible colonoscope was then placed patient anus and passed the colon. Scope was passed beyond the splenic flexure secondary to tortuosity the bowel and poor colon prep. This point scope withdrawn. There was scattered diverticuli seen descending and sigmoid colon. The scope was brought back the rectum this appeared normal. Scope withdrawn for patient.
[2023-05-26 11:55] LABS: Glucose,Whole Blood 218 mg/dL (70-110)
[2023-05-26] MEDS: ASPIRIN 81 MG PO SCH (12:25)
[2023-05-26] MEDS: BUMETANIDE 1 MG TAB PO SCH (12:25)
[2023-05-26] MEDS: SODIUM CHLORIDE 0.9% 1,000 ML IV SCH (12:25)
[2023-05-26 15:11] VITALS: BP 150/87; RESP 16; TEMP 98.4
[2023-05-26 16:24] VITALS: PULSE 72
[2023-05-26 17:40] LABS: Glucose,Whole Blood 317 mg/dL (70-110)
[2023-05-26] MEDS: HYDROcodone/APAP 7.5-325MG 1 EACH TAB PO PRN (18:09)
== END 2023-05-26 19:14 | disposition home or self-care (01) | DRG 193 ==
LOC: EC 20:03 → 6NMEDSUR 05-21 11:12 → OBSVTOIN 05-23 13:06
PROVIDERS: ADMIT Family Medicine; ATTEND Family Medicine
PROC: 0DJD8ZZ Inspection of Lower Intestinal Tract, Via Natural or Artificial Opening Endoscopic (ICD-10-PCS; principal; 2023-05-26 09:45)
DX: J15.9 Unspecified bacterial pneumonia (principal); G93.41 Metabolic encephalopathy; J96.01 Acute respiratory failure with hypoxia; E66.2 Morbid (severe) obesity with alveolar hypoventilation; I13.0 Hypertensive heart and chronic kidney disease with heart failure and stage 1 through stage 4 chronic kidney disease, or unspecified chronic kidney disease; J44.0 Chronic obstructive pulmonary disease with (acute) lower respiratory infection; J45.20 Mild intermittent asthma, uncomplicated; N18.2 Chronic kidney disease, stage 2 (mild); N83.202 Unspecified ovarian cyst, left side; E11.22 Type 2 diabetes mellitus with diabetic chronic kidney disease; E11.42 Type 2 diabetes mellitus with diabetic polyneuropathy; E11.65 Type 2 diabetes mellitus with hyperglycemia; E78.5 Hyperlipidemia, unspecified; G89.4 Chronic pain syndrome; I25.10 Atherosclerotic heart disease of native coronary artery without angina pectoris; E86.0 Dehydration; G43.909 Migraine, unspecified, not intractable, without status migrainosus; K74.60 Unspecified cirrhosis of liver; R10.32 Left lower quadrant pain; I25.2 Old myocardial infarction; K57.90 Diverticulosis of intestine, part unspecified, without perforation or abscess without bleeding; Z91.041 Radiographic dye allergy status; Z88.8 Allergy status to other drugs, medicaments and biological substances; Z79.4 Long term (current) use of insulin; Z79.02 Long term (current) use of antithrombotics/antiplatelets; Z79.899 Other long term (current) drug therapy; Z79.82 Long term (current) use of aspirin; Z86.16 Personal history of COVID-19; Z86.718 Personal history of other venous thrombosis and embolism; Z87.11 Personal history of peptic ulcer disease; Z87.19 Personal history of other diseases of the digestive system; Z87.442 Personal history of urinary calculi; Z90.710 Acquired absence of both cervix and uterus; Z90.5 Acquired absence of kidney; Z96.651 Presence of right artificial knee joint
CPT/HCPCS: 36415; 45378; 71045; 71250; 74177; 76856; 80053; 81001; 82803; 83036; 83880; 84145; 85025; 85027; 85379; 87040; 87635; 93976; 94640; 94760; 96361; 96365; 96372; 96375; 96376; 99285

== ENCOUNTER → 2023-07-18 | Outpatient (CLI) | payer MEDICARE ==
--- NOTE | 2023-07-18 15:08 | XR ---
EXAMINATION TYPE: XR foot complete LT, XR toes LT DATE OF EXAM: 07/18/2023 CLINICAL HISTORY: pain TECHNIQUE: Frontal, lateral and oblique images of the left foot are obtained. 3 views of the left gre at toe also submitted. COMPARISON: None. FINDINGS: There is no acute fracture/dislocation evident. Mild degenerative changes first metatarsal phalangeal joint. The overlying soft tissue appears unremarkable. IMPRESSION: There is no acute fracture or dislocation. ICD 10 NO FRACTURE, INITIAL EVALUATION
== END | disposition home or self-care (01) ==
LOC: RADXRMAIN 14:37
PROVIDERS: ATTEND Family Medicine
DX: M79.675 Pain in left toe(s) (principal)

== ENCOUNTER 2023-09-20 16:31 | Emergency (ER) | payer MEDICARE, OTHER ==
--- NOTE | 2023-09-20 17:00 | ED ---
General Adult HPI - General Stated complaint: Headache Time Seen by Provider: 09/20/23 16:45 Source: patient, RN notes reviewed - History of Present Illness Initial comments: 67-year-old female with chief complaint of headache and facial pressure maxillary pain over the last 4 weeks. Patient states that she has been on multiple different antibiotics and steroids without relief of symptoms. She states the pain is worsened with leaning forward and associated with feelings of lightheadedness. Patient had sinus reconstructive surgery a few years ago, but states she does not have contact with her ENT surgeon anymore. Denies fevers, cough, shortness of breath, lower extremity edema, chest pain or pressure. Patient's most recent antibiotic prescribed was penicillin, denies current steroid use. - Related Data Home Medications Medication Instructions Recorded Confirmed Montelukast [Singulair] 10 mg PO DAILY 10/17/20 05/21/23 Aspirin [Adult Low Dose Aspirin EC] 81 mg PO DAILY 04/21/22 05/21/23 Loratadine [Claritin] 10 mg PO DAILY 04/21/22 05/21/23 Magnesium Oxide 400 mg PO DAILY 04/21/22 05/21/23 Albuterol Inhaler [Ventolin Hfa 1 - 2 puff INHALATION RT-Q6H PRN 05/21/2303/05 Inhaler] Budesonide 0.5 mg INHALATION RT-BID 05/21/23 05/21/23 Docusate [Colace] 100 mg PO DAILY 05/21/23 05/21/23 FLUoxetine HCL [PROzac] 20 mg PO DAILY 05/21/23 05/21/23 Gabapentin [Neurontin] 100 mg PO TID 05/21/23 05/21/23 HYDROcodone/APAP 5-325MG [[place] 1 tab PO TID PRN 05/21/23 05/21/23 5-325] INSULIN ASPART (NovoLOG) [NovoLOG See Protocol SQ AC-TID 05/21/23 05/21/23 (formulary)] Losartan/Hydrochlorothiazide 1 tab PO DAILY 05/21/23 05/21/23 [Losartan-Hctz 100-25 mg Tab] Mirabegron [Myrbetriq] 50 mg PO DAILY 05/21/23 05/21/23 Mirtazapine [Remeron] 15 mg PO HS 05/21/23 05/21/23 Omeprazole 40 mg PO DAILY 05/21/23 05/21/23 Previous Rx's Medication Instructions Recorded Ipratropium-Albuterol Nebulize 3 ml INHALATION RT-QID PRN each 06/23/22 [Duoneb 0.5 mg-3 mg/3 ml Soln] Bumetanide [BUMEX] 1 mg PO DAILY 90 Days #90 tab 05/26/23 Dapagliflozin Propanediol [Farxiga] 10 mg PO DAILY 90 Days #90 tab 05/26/23 Nystatin 100,000 Unit/gm Powd 1 applic TOPICAL TID 30 Days #100 05/26/23 [Mycostatin Powder] each Pantoprazole [Protonix] 40 mg PO AC-BID 30 Days #60 tab 05/26/23 Sennosides-Docusate Sodium 1 each PO DAILY PRN tab 05/26/23 [Senokot-S] atenoloL [Tenormin] 50 mg PO BID 90 Days #180 tab 05/26/23 Amoxic-Pot Clav 875-125Mg 1 tab PO Q12HR #20 tab 09/20/23 [Augmentin 875-125] Azelastine HCl [Astelin Nasal 137 mcg NASAL BID 30 Days #1 each 09/20/23 [place]] Potassium Chloride ER [K-Dur 20] 20 meq PO DAILY #6 tab 09/20/23 Allergies Allergy/AdvReac Type Severity Reaction Status Date / Time Iodinated Contrast Media Allergy Severe Anaphylaxis Verified 05/21/23 13:19 [Iodinated Contrast Media - IV Dye] iodine Allergy Anaphylaxis Verified 05/21/23 13:19 Mrtocpi-LGN-AwW Reductase Allergy Anaphylaxis Verified 05/21/23 13:19 Inhibitor [Rswwmng-Xov-Csk Reductase Inhibitor] Review of Systems ROS Statement: Those systems with pertinent positive or pertinent negative responses have been documented in the HPI. ROS Other: All systems not noted in ROS Statement are negative. Past Medical History Past Medical History: Asthma, Coronary Artery Disease (CAD), COPD, Diabetes Mellitus, Deep Vein Thrombosis (DVT), GERD/Reflux, Hyperlipidemia, Hypertension, Musculoskeletal Disorder, Osteoarthritis (OA), Renal Disease, Sleep Apnea/CPAP/BIPAP Additional Past Medical History / Comment(s): PUD, colitis, benign colon polyps, DVT L leg, migraines, ANDREW - uses cpap. kidney stones, CKD stage II, vertigo, recurrent L ear infections/ruptured eardrum, TMJ, mild CAD, back prob - NT Lt a rm, leg. Edema BLE. covid + 01/19/2021 Last Myocardial Infarction Date:: 2009 History of Any Multi-Drug Resistant Organisms: None Reported Past Surgical History: Appendectomy, Cholecystectomy, Ear Surgery, Heart Catheterization, Hysterectomy, Joint Replacement, Orthopedic Surgery, Tonsillectomy Additional Past Surgical History / Comment(s): R/L knee arthroscopies, L ear patch/graft, EGD, colonoscopy/polypectomy, throat abscess. Right knee replacement, back surgery, Past Anesthesia/Blood Transfusion Reactions: Postoperative Nausea & Vomiting (PONV) Smoking Status: Never smoker - Past Family History Sister(s) Family Medical History: Cancer Father Family Medical History: Cancer Additional Family Medical History / Comment(s): Throat and brain cancer. Father was an alcoholic. Mother Family Medical History: Liver Disease Additional Family Medical History / Comment(s): Mother is . She was an alcoholic. General Exam - General Exam Comments Initial Comments: Visual Physical Exam Vital signs reviewed General: Well-appearing, nontoxic, no acute distress. Head: Normocephalic, atraumatic Eyes: PERRLA, EOMI ENT: Airway patent Chest: Nonlabored breathing Skin: No visual rash, normal skin tone Neuro: Alert and oriented 3 Musculoskeletal: No gross abnormalities General appearance: alert, in no apparent distress Head exam: Present: atraumatic, normocephalic, normal inspection Eye exam: Present: normal appearance, PERRL, EOMI. Absent: scleral icterus, conjunctival injection, periorbital swelling ENT exam: Present: normal exam, mucous membranes moist, other (Sinus pressure tenderness over the maxillary, ethmoid, and frontal) Expanded Mouth exam: Present: normal external inspection Teeth exam: Present: dental caries, fractured tooth #. Absent: normal inspection Throat exam: normal inspection. negative: tonsillar erythema, tonsillomegaly Neck exam: Present: normal inspection. Absent: tenderness, meningismus, lymphadenopathy Respiratory exam: Present: normal lung sounds bilaterally. Absent: respiratory distress, wheezes, rales, rhonchi, stridor Cardiovascular Exam: Present: regular rate, normal rhythm, normal heart sounds. Absent: systolic murmur, diastolic murmur, rubs, gallop, clicks GI/Abdominal exam: Present: soft, normal bowel sounds. Absent: distended, tenderness, guarding, rebound, rigid Extremities exam: Present: normal inspection, full ROM, normal capillary refill. Absent: tenderness, pedal edema, joint swelling, calf tenderness Back exam: Present: normal inspection Neurological exam: Present: alert, oriented X3, CN II-XII intact Psychiatric exam: Present: normal affect, normal mood Skin exam: Present: warm, dry, intact, normal color. Absent: rash Course Vital Signs 09/20/23 17:06 Temperature 98.7 F Pulse Rate 90 Respiratory 18 Rate Blood Pressure 174/78 O2 Sat by Pulse 96 Oximetry Medical Decision Making - Medical Decision Making Was pt. sent in by a medical professional or institution (, PA, FLOORING MACHINE FEEDER, urgent care, hospital, or correction...) When possible be specific @ -No Did you speak to anyone other than the patient for history (EMS, parent, family, police, friend...)? What history was obtained from this source @ -No Did you review nursing and triage notes (agree or disagree)? Why? @ -I reviewed and agree with nursing and triage notes Were old charts reviewed (outside hosp., previous admission, EMS record, old EKG, old radiological studies, urgent care reports/EKG's, correction records)? Report findings @ -No old charts were reviewed Differential Diagnosis (chest pain, altered mental status, abdominal pain women, abdominal pain men, vaginal bleeding, weakness, fever, dyspnea, syncope, headache, dizziness, GI bleed, back pain, seizure, CVA, palpatations, mental health, musculoskeletal)? @ -Not applicable differential Headache: Migraine, tension, cluster, carbon monoxide, central venous thrombosis, pension karma temporal arteritis, acute closure glaucoma, intercranial hemorrhage, mastoiditis, sinusitis, head injury, this is not meant to be an all-inclusive list. Interpreted by me (3pts min.). @ -completed at 1836 being sinus rhythm with a shortened VA interval, ventricular rate 78, VA interval 118, QTc 383. No acute signs of ischemia. X-rays interpreted by me (1pt min.). @ -None done CT interpreted by me (1pt min.). @] CT without contrast of the sinuses reveals postoperative changes without evidence of recurrent chronic or acute sinusitis Noncontrast of the brain reveals atrophic and chronic small vessel ischemic changes no evidence of acute intracranial process U/S interpreted b -[None raza me (1pt. min.). @ -None done What testing was considered but not performed or refused? (CT, X-rays, U/S, labs)? Why? @ -None What meds were considered but not given or refused? Why? @ -None Did you discuss the management of the patient with other professionals (professionals i.e. , PA, FLOORING MACHINE FEEDER, lab, RT, psych nurse, social sciences professor, artificial inseminator, teacher, casino surveillance officer, rn case manager hospice)? Give summary @ -No Was smoking cessation discussed for >3mins.? @ -No Was critical care preformed (if so, how long)? @ -No Were there social determinants of health that impacted care today? How? (Homelessness, low income, unemployed, alcoholism, drug addiction, transportation, low edu. Level, literacy, decrease access to med. care, snf, rehab)? @ -No Was there de-escalation of care discussed even if they declined (Discuss DNR or withdrawal of care, Hospice)? DNR status @ -No What co-morbidities impacted this encounter? (DM, HTN, Smoking, COPD, CAD, Cancer, CVA, ARF, Chemo, Hep., AIDS, mental health diagnosis, sleep apnea, morbid obesity)? @ -DM Was patient admitted / discharged? Hospital course, mention meds given and route, prescriptions, significant lab abnormalities, going to OR and other pertinent info. @ -Discharged. 67-year-old female is facial sinus pressure and headaches. On physical examination patient was found to have tenderness to palpation over the maxillary ethmoid and frontal sinuses. Patient was sent for CT of the brain and sinuses due to symptoms lasting for the last 4 weeks, no acute findings of bleeding. Basic laboratory results revealed a low potassium of 2.7 with no acute changes T waves or kidney function. Patient states that she has been hospitalized in the past for low potassium, patient denies any palpitations, dizziness, muscle weakness. EKG revealed a shortened VA interval, otherwise unchanged from previous. Patient was given oral supplement of potassium in addition to oral supplement of Mg due to a level of 1.4. Patient will be di scharged home on Augmentin, antihistamine nasal spray, and oral potassium supplementation. Discussed with patient to follow-up with your primary care provider within the next 2 to 3 days for evaluation of hypokalemia. Patient also given referral to ENT for further evaluation due to not having contact with her previous surgeon. I discussed this case with . Undiagnosed new problem with uncertain prognosis? @ -No Drug Therapy requiring intensive monitoring for toxicity (Heparin, Nitro, I nsulin, Cardizem)? @ -No Were any procedures done? @ -No Diagnosis/symptom? @ -bacterial sinusitis, hypokalemia, headache Acute, or Chronic, or Acute on Chronic? @ -acute Uncomplicated (without systemic symptoms) or Complicated (systemic symptoms)? @ -uncomplicated Side effects of treatment? @ -No Exacerbation, Progression, or Severe Exacerbation? @ -No Poses a threat to life or bodily function? How? (Chest pain, [place], NH, pneumonia, PE, COPD, DKA, ARF, appy, cholecystitis, CVA, Diverticulitis, Homicidal, Suicidal, threat to staff... and all critical care pts) @ -No - Lab Data Result diagrams: 09/20/23 17:23 09/20/23 17:23 Lab Results 09/20/23 09/20/23 09/20/23 Range/Units 17:23 17:23 17:23 WBC 6.9 (3.8-10.6) k/uL RBC 4.28 (3.80-5.40) m/uL Hgb 12.9 (11.4-16.0) gm/dL Hct 40.0 (34.0-46.0) % MCV 93.4 (80.0-100.0) fL MCH 30.2 (25.0-35.0) pg MCHC 32.3 (31.0-37.0) g/dL RDW 14.3 (11.5-15.5) % Plt Count 182 (150-450) k/uL MPV 9.1 Neutrophils % 61 % Lymphocytes % 28 % Monocytes % 6 % Eosinophils % 2 % Basophils % 1 % Neutrophils # 4.2 (1.3-7.7) k/uL Lymphocytes # 1.9 (1.0-4.8) k/uL Monocytes # 0.4 (0-1.0) k/uL Eosinophils # 0.2 (0-0.7) k/uL Basophils # 0.1 (0-0.2) k/uL Sodium 142 (137-145) mmol/L Potassium 2.7 L* (3.5-5.1) mmol/L Chloride 105 (98-107) mmol/L Carbon Dioxide 28 (22-30) mmol/L Anion Gap 9 mmol/L BUN 11 (7-17) mg/dL Creatinine 0.98 (0.52-1.04) mg/dL Est GFR (CKD-EPI)AfAm 69 (>60 ml/min/1.73 sqM) Est GFR (CKD-EPI)NonAf 60 (>60 ml/min/1.73 sqM) Glucose 279 H (74-99) mg/dL Calcium 9.4 (8.4-10.2) mg/dL Magnesium (1.6-2.3) mg/dL Total Bilirubin 0.5 (0.2-1.3) mg/dL AST 22 (14-36) U/L ALT 22 (4-34) U/L Alkaline Phosphatase 97 (38-126) U/L Total Protein 6.4 (6.3-8.2) g/dL Albumin 3.9 (3.5-5.0) g/dL Influenza Type A (PCR) Not Detected (Not Detectd) Influenza Type B (PCR) Not Detected (Not Detectd) RSV (PCR) Not Detected (Not Detectd) SARS-CoV-2 (PCR) Not Detected (Not Detectd) 09/20/23 Range/Units 17:23 WBC (3.8-10.6) k/uL RBC (3.80-5.40) m/uL Hgb (11.4-16.0) gm/dL Hct (34.0-46.0) % MCV (80.0-100.0) fL MCH (25.0-35.0) pg MCHC (31.0-37.0) g/dL RDW (11.5-15.5) % Plt Count (150-450) k/uL MPV Neutrophils % % Lymphocytes % % Monocytes % % Eosinophils % % Basophils % % Neutrophils # (1.3-7.7) k/uL Lymphocytes # (1.0-4.8) k/uL Monocytes # (0-1.0) k/uL Eosinophils # (0-0.7) k/uL Basophils # (0-0.2) k/uL Sodium (137-145) mmol/L Potassium (3.5-5.1) mmol/L Chloride (98-107) mmol/L Carbon Dioxide (22-30) mmol/L Anion Gap mmol/L BUN (7-17) mg/dL Creatinine (0.52-1.04) mg/dL Est GFR (CKD-EPI)AfAm (>60 ml/min/1.73 sqM) Est GFR (CKD-EPI)NonAf (>60 ml/min/1.73 sqM) Glucose (74-99) mg/dL Calcium (8.4-10.2) mg/dL Magnesium 1.4 L (1.6-2.3) mg/dL Total Bilirubin (0.2-1.3) mg/dL AST (14-36) U/L ALT (4-34) U/L Alkaline Phosphatase (38-126) U/L Total Protein (6.3-8.2) g/dL Albumin (3.5-5.0) g/dL Influenza Type A (PCR) (Not Detectd) Influenza Type B (PCR) (Not Detectd) RSV (PCR) (Not Detectd) SARS-CoV-2 (PCR) (Not Detectd) Disposition Clinical Impression: Sinusitis, Hypokalemia Narrative: Please return to the Emergency Department if symptoms worsen or any other concerns. Please eat potassium supplement for the next 3 days, and antibiotics and nasal spray as prescribed. Follow-up with your primary care provider within the next 3 days. Follow-up with ENT for further symptom management, referral provided. Disposition: HOME SELF-CARE Condition: Good Instructions (If sedation given, give patient instructions): Hypokalemia (ED) Prescriptions: Azelastine HCl [Astelin Nasal [place]] 137 mcg NASAL BID 30 Days #1 each Amoxic-Pot Clav 875-125Mg [Augmentin 875-125] 1 tab PO Q12HR #20 tab Potassium Chloride ER [K-Dur 20] 20 meq PO DAILY #6 tab Is patient prescribed a controlled substance at d/c from ED?: No Referrals: Tavo Lisa MD [Primary Care Provider] - 1-2 days Jose Tong MD [STAFF PHYSICIAN] - 1-2 days Time of Disposition: 20:01
--- NOTE | 2023-09-20 17:38 | CT ---
EXAMINATION TYPE: CT brain wo con DATE OF EXAM: 09/20/2023 COMPARISON: 06/18/22 HISTORY: headache CT DLP: 1134.[address] of the brain was performed. The ventricles, basal cisterns and sulci overlying the cerebral convexities demonstrate mild enlargem ent. There is no evidence for intracranial hemorrhage or sulcal effacement. There is decreased attenuation about the periventricular white matter and deep white matter of both c erebral hemispheres, compatible with chronic small vessel ischemia. Differential diagnosis does inclu de demyelination. No mass effects are seen.No midline shift. Osseous calvarium is intact. If symptoms persist consider MRI. IMPRESSION: 1. Age related atrophic and chronic small vessel ischemic change without acute intracranial process s een at this time.
--- NOTE | 2023-09-20 17:41 | CT ---
EXAMINATION TYPE: CT sinus wo con DATE OF EXAM: 09/20/2023 COMPARISON: None HISTORY: headache, sinus pressure CT DLP: 1134.4 (combined total) mGycm Unenhanced CT of the paranasal sinuses was performed in the axial and coronal planes. Bone and soft tissue settings are submitted. The paranasal sinuses demonstrate normal aeration and development. Postoperative changes of medial ma xillary antrectomy and partial ethmoidectomy. The paranasal sinuses are free of mucosal thickening or air fluid level. No evidence of obstruction. The nasal septum is midline. No bony destructive changes are seen within the field of view. IMPRESSION: Postoperative changes noted without evidence for recurrent chronic or acute sinusitis.
[2023-09-20 17:42] VITALS: TEMP 98.7
[2023-09-20 18:06] LABS: ALT 22 U/L (4-34); AST 22 U/L (14-36); African American GFR (CKD) 69 (>60 ml/min/1.73 sqM); Albumin 3.9 g/dL (3.5-5.0); Alkaline Phosphatase 97 U/L (38-126); Anion Gap 9 mmol/L; Blood Urea Nitrogen 11 mg/dL (7-17); Calcium 9.4 mg/dL (8.4-10.2); Carbon Dioxide 28 mmol/L (22-30); Chloride 105 mmol/L (98-107); Glucose 279 mg/dL (74-99); Non-African American GFR(CKD) 60 (>60 ml/min/1.73 sqM); Sodium 142 mmol/L (137-145); Total Bilirubin 0.5 mg/dL (0.2-1.3); Total Protein 6.4 g/dL (6.3-8.2)
[2023-09-20 18:10] LABS: Basophils # (A) 0.1 k/uL (0-0.2); Basophils % (A) 1 %; Eosinophils # (A) 0.2 k/uL (0-0.7); Eosinophils % (A) 2 %; HGB 12.9 gm/dL (11.4-16.0); Lymphocytes # (A) 1.9 k/uL (1.0-4.8); Lymphocytes % (A) 28 %; MCH 30.2 pg (25.0-35.0); MCHC 32.3 g/dL (31.0-37.0); MCV 93.4 fL (80.0-100.0); Mean Platelet Volume 9.1; Monocytes # (A) 0.4 k/uL (0-1.0); Monocytes % (A) 6 %; Neutrophils # (A) 4.2 k/uL (1.3-7.7); Neutrophils % (A) 61 %; Platelet Count 182 k/uL (150-450); RBC 4.28 m/uL (3.80-5.40); RDW 14.3 % (11.5-15.5); WBC 6.9 k/uL (3.8-10.6)
[2023-09-20 18:16] LABS: Potassium 2.7 mmol/L (3.5-5.1)
[2023-09-20] MEDS ORDERED: Potassium Replacement Protocol 1 EACH MISC MISCELLANE PRN (18:33)
[2023-09-20] MEDS: POTASSIUM CHLORIDE ER 20 MEQ TAB.ER PO ONE (18:57)
[2023-09-20] MEDS: MAGNESIUM OXIDE 400 MG TAB PO STA (19:51)
[2023-09-20 20:35] VITALS: BP 155/84; PULSE 80; RESP 16
== END 2023-09-20 20:20 | disposition home or self-care (01) ==
LOC: EC 16:31
DX: J32.8 Other chronic sinusitis (principal); E87.6 Hypokalemia; B96.89 Other specified bacterial agents as the cause of diseases classified elsewhere; E11.22 Type 2 diabetes mellitus with diabetic chronic kidney disease; N18.2 Chronic kidney disease, stage 2 (mild); Z79.4 Long term (current) use of insulin; Z91.041 Radiographic dye allergy status; Z88.8 Allergy status to other drugs, medicaments and biological substances
CPT/HCPCS: 36415; 70450; 70486; 80053; 83735; 85025; 87636; 93005; 99284

== ENCOUNTER 2023-09-26 14:00 | Emergency (ER) | payer MEDICARE, OTHER ==
[2023-09-26 14:07] VITALS: RESP 20
--- NOTE | 2023-09-26 14:42 | ED ---
Abdominal Pain HPI - General Chief Complaint: Abdominal Pain Stated Complaint: Vomiting,Abd Pain Time Seen by Provider: 09/26/23 14:23 Source: patient, RN notes reviewed Mode of arrival: wheelchair Limitations: no limitations - History of Present Illness Initial Comments: This is a 67-year-old female who presents to the emergency department for abdominal pain. Patient was evaluated here on 09/19 for a headache, which she states continues to persist. At that time she was told that she had very low potassium and magnesium. After discharge, states that she has been very nauseous and has thrown up several times. She also has abdominal pain and is concerned about the potassium and magnesium continuing to get lower. The abdominal pain is in the mid abdomen. Denies any fevers/chills or chest pain/shortness of breath. MD Complaint: abdominal pain - Related Data Home Medications Medication Instructions Recorded Confirmed Montelukast [Singulair] 10 mg PO DAILY 10/17/20 09/26/23 Aspirin [Adult Low Dose Aspirin EC] 81 mg PO DAILY 04/21/22 09/26/23 Docusate [Colace] 100 mg PO DAILY 05/21/23 09/26/23 Gabapentin [Neurontin] 100 mg PO TID 05/21/23 09/26/23 HYDROcodone/APAP 5-325MG [[place] 1 tab PO TID 05/21/23 09/26/23 5-325] INSULIN ASPART (NovoLOG) [NovoLOG See Protocol SQ AC-TID 05/21/23 09/26/23 (formulary)] Mirabegron [Myrbetriq] 50 mg PO DAILY 05/21/23 09/26/23 Omeprazole 40 mg PO DAILY 05/21/23 09/26/23 Azelastine HCl [Astelin Nasal 2 sprays NASAL BID 09/26/23 09/26/23 [place]] Fexofenadine HCl 180 mg PO DAILY 09/26/23 09/26/23 Fluticasone/Umeclidin/Vilanter 1 puff INHALATION RT-DAILY 09/26/23 09/26/23 [Trelegy Ellipta 200-62.5-25] Pantoprazole [Protonix] 40 mg PO BID 09/26/23 09/26/23 metFORMIN HCL [Glucophage] 500 mg PO BID 09/26/23 09/26/23 Previous Rx's Medication Instructions Recorded Bumetanide [BUMEX] 1 mg PO DAILY 90 Days #90 tab 05/26/23 Dapagliflozin Propanediol [Farxiga] 10 mg PO DAILY 90 Days #90 tab 05/26/23 atenoloL [Tenormin] 50 mg PO BID 90 Days #180 tab 05/26/23 Amoxic-Pot Clav 875-125Mg 1 tab PO Q12HR #20 tab 09/20/23 [Augmentin 875-125] Ondansetron Odt [Zofran Odt] 4 mg PO Q8HR PRN #20 tab 09/26/23 Allergies Allergy/AdvReac Type Severity Reaction Status Date / Time Iodinated Contrast Media Allergy Severe Anaphylaxis Verified 09/26/23 17:53 [Iodinated Contrast Media - IV Dye] iodine Allergy Anaphylaxis Verified 09/26/23 17:53 Kkvcrhe-CBQ-GxM Reductase Allergy Anaphylaxis Verified 09/26/23 17:53 Inhibitor [Ebnmcta-Mog-Ysm Reductase Inhibitor] Review of Systems ROS Statement: Those systems with pertinent positive or pertinent negative responses have been documented in the HPI. ROS Other: All systems not noted in ROS Statement are negative. Past Medical History Past Medical History: Asthma, Coronary Artery Disease (CAD), COPD, Diabetes Mellitus, Deep Vein Thrombosis (DVT), GERD/Reflux, Hyperlipidemia, Hypertension, Musculoskeletal Disorder, Osteoarthritis (OA), Renal Disease, Sleep Apnea/CPAP/BIPAP Additional Past Medical History / Comment(s): PUD, colitis, benign colon polyps, DVT L leg, migraines, ANDREW - uses cpap. kidney stones, CKD stage II, vertigo, recurrent L ear infections/ruptured eardrum, TMJ, mild CAD, back prob - NT Lt arm, leg. Edema BLE. covid + 01/19/2021 Last Myocardial Infarction Date:: 2009 History of Any Multi-Drug Resistant Organisms: None Reported Past Surgical History: Appendectomy, Cholecystectomy, Ear Surgery, Heart Catheterization, Hysterectomy, Joint Replacement, Orthopedic Surgery, Tonsillectomy Additional Past Surgical History / Comment(s): R/L knee arthroscopies, L ear patch/graft, EGD, colonoscopy/polypectomy, throat abscess. Right knee replacement, back surgery, Past Anesthesia/Blood Transfusion Reactions: Postoperative Nausea & Vomiting (PONV) Past Psychological History: Anxiety Smoking Status: Never smoker Past Alcohol Use History: None Reported Past Drug Use History: None Reported - Past Family History Sister(s) Family Medical History: Cancer Father Family Medical History: Cancer Additional Family Medical History / Comment(s): Throat and brain cancer. Father was an alcoholic. Mother Family Medical History: Liver Disease Additional Family Medical History / Comment(s): Mother is . She was an alcoholic. General Exam Limitations: no limitations General appearance: alert, in distress Head exam: Present: atraumatic, normocephalic, normal inspection Respiratory exam: Present: normal lung sounds bilaterally. Absent: respiratory distress, wheezes, rales, rhonchi, stridor Cardiovascular Exam: Present: regular rate, normal rhythm, normal heart sounds. Absent: systolic murmur, diastolic murmur, rubs, gallop, clicks GI/Abdominal exam: Present: soft, tenderness (generalized), normal bowel sounds. Absent: distended Neurological exam: Present: alert, oriented X3, CN II-XII intact Psychiatric exam: Present: normal affect, normal mood Skin exam: Present: warm, dry, intact, normal color. Absent: rash Course Vital Signs 09/26/23 09/26/23 09/26/23 14:01 15:19 18:05 Temperature 98 F 98.6 F Pulse Rate 92 88 86 Respiratory 20 20 20 Rate Blood Pressure 143/90 137/73 181/87 O2 Sat by Pulse 97 96 0 L Oximetry Medical Decision Making - Medical Decision Making This is a 67 year old female who presents to the emergency department for abdominal pain. Was pt. sent in by a medical professional or institution? @ -No Did you speak to anyone other than the patient for history? @ -No Did you review nursing and triage notes? @ -Yes, and I agree, it is accurate with regards to the patient's symptoms. Were old charts reviewed? @ -No Differential Diagnosis? @ -Differential Abdominal Pain Women: Appendicitis, Cholecystitis, diverticulosis, ischemic bowel, pancreatitis, hepatitis, UTI, gastroenteritis, AAA, incarcerated hernia, bowel obstruction, constipation, inflammatory bowel, hepatitis, peptic ulcer disease, splenic infarction, perforated viscus, vulvitis, ovarian torsion, PID, kidney stone, placenta abruption, this is not meant to be an all-inclusive list EKG interpreted by me (3pts min.)? @ -EKG interpreted by me demonstrating the following: Sinus rhythm. Ventricular rate 84 bpm, NE interval 119 ms, QRS duration 110 ms, QTc 438 ms. X-rays interpreted by me (1pt min.)? @ -Not obtained CT interpreted by me (1pt min.)? @ -CT scan of the abdomen and pelvis obtained. My interpretation identifies no evidence of bowel wall thickening or free air. U/S interpreted by me (1pt. min.)? @ -Not obtained What testing was considered but not performed? (CT, X-rays, U/S, labs)? Why? @ -None What meds were considered but not given? Why? @ -None Did you discuss the management of the patient with other professionals? @ -No Did you reconcile home meds? @ -No Was smoking cessation discussed for >3mins.? @ -No Was critical care preformed (if so, how long)? @ -No Were there social determinants of health that impacted care today? How? (Homelessness, low income, unemployed, alcoholism, drug addiction, transportation, low edu. Level, literacy, decrease access to med. care, care home, rehab)? @ -No Was there de-escalation of care discussed even if they declined? (Discuss DNR or withdrawal of care, Hospice)? @ -No What co-morbidities impacted this encounter? (DM, HTN, Smoking, COPD, CAD, Cancer, CVA, Hep., AIDS, mental health diagnosis, sleep apnea, morbid obesity)? @ -CAD, DM, HLD, HTN Was patient admitted / discharged? @ -Discharged. Lab work demonstrates mild hypomagnesemia with a magnesium of 1.5 and was otherwise unremarkable. Magnesium replaced with 400 mg of magnesium oxide. COVID, influenza, and RSV testing were negative. Patient unable to provide a urine sample prior to discharge. CT scan of the abdomen and pelvis demonstrates some patchy and nodular densities in the lower lungs. They advised consideration of mild aspiration or atypical pneumonia. Pneumonia would be unlikely given the normal blood work, lack of respiratory symptoms, and with the patient currently being on Augmentin. No other acute processes were identified. Patient symptoms were controlled in the emergency department and she was c omfortable with discharge home at that time. Prescription for Zofran provided with dosing instructions reviewed. She is advised to slowly advance her diet as tolerated and remain well-hydrated. Patient discharged home in stable condition and advised to follow-up with her primary care provider. Undiagnosed new problem with uncertain prognosis? @ -None Drug Therapy requiring intensive monitoring for toxicity (Heparin, Nitro, Insulin, Cardizem)? @ -None Were any procedures done? @ -None Diagnosis/symptom? @ -Abdominal pain, nausea and vomiting Acute, or Chronic, or Acute on Chronic? @ -Acute Uncomplicated (without systemic symptoms) or Complicated (systemic symptoms)? @ -Uncomplicated Side effects of treatment? @ -None Exacerbation, Progression, or Severe Exacerbation] @ -Not applicable Poses a threat to life or bodily function? @ -No Return precautions reviewed in depth, the patient is instructed to return to the emergency department with any new, worsening, or concerning symptoms. Patient verbalized understanding. This case was discussed in detail with the attending ED physician, Dr. Salgado. Presentation, findings, and treatment plan discussed in detail as well. - Lab Data Result diagrams: 09/26/23 15:10 09/26/23 15:10 Lab Results 09/26/23 09/26/23 09/26/23 Range/Units 15:10 15:10 15:10 WBC 5.3 (3.8-10.6) k/uL RBC 3.92 (3.80-5.40) m/uL Hgb 12.1 (11.4-16.0) gm/dL Hct 37.1 (34.0-46.0) % MCV 94.6 (80.0-100.0) fL MCH 30.8 (25.0-35.0) pg MCHC 32.5 (31.0-37.0) g/dL RDW 14.4 (11.5-15.5) % Plt Count 195 (150-450) k/uL MPV 8.9 Neutrophils % 62 % Lymphocytes % 26 % Monocytes % 6 % Eosinophils % 3 % Basophils % 1 % Neutrophils # 3.3 (1.3-7.7) k/uL Lymphocytes # 1.4 (1.0-4.8) k/uL Monocytes # 0.3 (0-1.0) k/uL Eosinophils # 0.2 (0-0.7) k/uL Basophils # 0.0 (0-0.2) k/uL Sodium 141 (137-145) mmol/L Potassium 3.6 (3.5-5.1) mmol/L Chloride 106 (98-107) mmol/L Carbon Dioxide 28 (22-30) mmol/L Anion Gap 7 mmol/L BUN 15 (7-17) mg/dL Creatinine 0.79 (0.52-1.04) mg/dL Est GFR (CKD-EPI)AfAm >90 (>60 ml/min/1.73 sqM) Est GFR (CKD-EPI)NonAf 78 (>60 ml/min/1.73 sqM) Glucose 190 H (74-99) mg/dL Plasma Lactic Acid Woody 1.8 (0.7-2.0) mmol/L Calcium 9.2 (8.4-10.2) mg/dL Phosphorus 2.5 (2.5-4.5) mg/dL Magnesium 1.5 L (1.6-2.3) mg/dL Total Bilirubin 0.7 (0.2-1.3) mg/dL AST 27 (14-36) U/L ALT 19 (4-34) U/L Alkaline Phosphatase 85 (38-126) U/L Total Protein 6.4 (6.3-8.2) g/dL Albumin 3.8 (3.5-5.0) g/dL Amylase 42 (30-110) U/L Lipase 88 (23-300) U/L Influenza Type A (PCR) (Not Detectd) Influenza Type B (PCR) (Not Detectd) RSV (PCR) (Not Detectd) SARS-CoV-2 (PCR) (Not Detectd) 09/26/23 Range/Units 15:10 WBC (3.8-10.6) k/uL RBC (3.80-5.40) m/uL Hgb (11.4-16.0) gm/dL Hct (34.0-46.0) % MCV (80.0-100.0) fL MCH (25.0-35.0) pg MCHC (31.0-37.0) g/dL RDW (11.5-15.5) % Plt Count (150-450) k/uL MPV Neutrophils % % Lymphocytes % % Monocytes % % Eosinophils % % Basophils % % Neutrophils # (1.3-7.7) k/uL Lymphocytes # (1.0-4.8) k/uL Monocytes # (0-1.0) k/uL Eosinophils # (0-0.7) k/uL Basophils # (0-0.2) k/uL Sodium (137-145) mmol/L Potassium (3.5-5.1) mmol/L Chloride (98-107) mmol/L Carbon Dioxide (22-30) mmol/L Anion Gap mmol/L BUN (7-17) mg/dL Creatinine (0.52-1.04) mg/dL Est GFR (CKD-EPI)AfAm (>60 ml/min/1.73 sqM) Est GFR (CKD-EPI)NonAf (>60 ml/min/1.73 sqM) Glucose (74-99) mg/dL Plasma Lactic Acid Woody (0.7-2.0) mmol/L Calcium (8.4-10.2) mg/dL Phosphorus (2.5-4.5) mg/dL Magnesium (1.6-2.3) mg/dL Total Bilirubin (0.2-1.3) mg/dL AST (14-36) U/L ALT (4-34) U/L Alkaline Phosphatase (38-126) U/L Total Protein (6.3-8.2) g/dL Albumin (3.5-5.0) g/dL Amylase (30-110) U/L Lipase (23-300) U/L Influenza Type A (PCR) Not Detected (Not Detectd) Influenza Type B (PCR) Not Detected (Not Detectd) RSV (PCR) Not Detected (Not Detectd) SARS-CoV-2 (PCR) Not Detected (Not Detectd) - Radiology Data Radiology results: report reviewed, image reviewed Disposition Clinical Impression: Abdominal pain, Nausea and vomiting Disposition: HOME SELF-CARE Instructions (If sedation given, give patient instructions): Acute Nausea and Vomiting (ED), Abdominal Pain (ED) Additional Instructions: Return to the emergency department with any new, worsening, or concerning symptoms. Take the Zofran up to every 8 hours as needed for nausea and vomiting. Slowly advance your diet as tolerated and remain well-hydrated. Follow up with your primary care provider in 1-2 days. Prescriptions: Ondansetron Odt [Zofran Odt] 4 mg PO Q8HR PRN #20 tab PRN Reason: Nausea And Vomiting Is patient prescribed a controlled substance at d/c from ED?: No Referrals: Tavo Lisa MD [Primary Care Provider] - 1-2 days Jose Tong MD [STAFF PHYSICIAN] - 1-2 days Time of Disposition: 17:45
[2023-09-26] MEDS: ONDANSETRON 4 MG/2 ML VIAL IVP STA ×2 (15:13→16:34)
[2023-09-26] MEDS: HYDROmorphone 1 MG/ML 1 ML SYRINGE IVP STA ×2 (15:16→16:38)
[2023-09-26] MEDS: SODIUM CHLORIDE 0.9% 1,000 ML IV STA (15:18)
[2023-09-26 15:29] LABS: Basophils % (A) 1 %; Eosinophils # (A) 0.2 k/uL (0-0.7); Eosinophils % (A) 3 %; HCT 37.1 % (34.0-46.0); HGB 12.1 gm/dL (11.4-16.0); Lymphocytes # (A) 1.4 k/uL (1.0-4.8); Lymphocytes % (A) 26 %; MCH 30.8 pg (25.0-35.0); MCHC 32.5 g/dL (31.0-37.0); MCV 94.6 fL (80.0-100.0); Mean Platelet Volume 8.9; Monocytes # (A) 0.3 k/uL (0-1.0); Monocytes % (A) 6 %; Neutrophils # (A) 3.3 k/uL (1.3-7.7); Neutrophils % (A) 62 %; Platelet Count 195 k/uL (150-450); RBC 3.92 m/uL (3.80-5.40); RDW 14.4 % (11.5-15.5); WBC 5.3 k/uL (3.8-10.6)
[2023-09-26 15:44] LABS: ALT 19 U/L (4-34); AST 27 U/L (14-36); African American GFR (CKD) >90 (>60 ml/min/1.73 sqM); Albumin 3.8 g/dL (3.5-5.0); Alkaline Phosphatase 85 U/L (38-126); Amylase 42 U/L (30-110); Anion Gap 7 mmol/L; Blood Urea Nitrogen 15 mg/dL (7-17); Calcium 9.2 mg/dL (8.4-10.2); Carbon Dioxide 28 mmol/L (22-30); Chloride 106 mmol/L (98-107); Glucose 190 mg/dL (74-99); Lipase 88 U/L (23-300); Magnesium 1.5 mg/dL (1.6-2.3); Non-African American GFR(CKD) 78 (>60 ml/min/1.73 sqM); Phosphorus 2.5 mg/dL (2.5-4.5); Potassium 3.6 mmol/L (3.5-5.1); Sodium 141 mmol/L (137-145); Total Bilirubin 0.7 mg/dL (0.2-1.3); Total Protein 6.4 g/dL (6.3-8.2)
--- NOTE | 2023-09-26 16:07 | CT ---
EXAMINATION TYPE: CT abdomen pelvis wo con DATE OF EXAM: 09/26/2023 COMPARISON: Abdomen and pelvis 05/21/2023 HISTORY: 67-year-old female c/o n/v and abd pain CT DLP: 727 mGycm. Automated exposure control for dose reduction was used. TECHNIQUE: Contiguous axial scanning of the abdomen and pelvis without IV contrast. Coronal and sagit nicholas reconstructions performed. FINDINGS: Heart normal size without pericardial effusion. Scattered coronary artery calcifications are present. Some scattered patchy nodular densities in the visualized lower lungs. No pleural effusion. Diminished attenuation of the hepatic parenchyma suggesting fatty infiltration. Cholecystectomy clips . Noncontrast appearance of the adrenal glands, left kidney, spleen, and pancreas show no gross abnorma l. 1.0 cm nonobstructing right renal stone. No dilated small bowel, free fluid, or free air. No mesenteric or retroperitoneal lymphadenopathy. Findings cecum. Appendix not clearly identified. Mild stool within the right side of the colon. Minim al sigmoid diverticulosis. No pericolonic inflammatory change. Bladder is collapsed. Uterus surgically absent. Stable 2.1 cm cystic area of the left ovary. Right ov sudheer not clearly seen. No abnormal fluid collection in the pelvis or pelvic lymphadenopathy. A couple surgical clips noted in the pelvis. [facility] in the lower thoracic spine. Patient status post L2-L4 posterior and interbody lumbar fusion wit h laminectomies. IMPRESSION: 1. A 1 cm nonobstructive right renal calculus. 2. Some scattered patchy and nodular densities in the visualized lower lungs. Consider mild aspirati on or atypical pneumonia. Follow-up CT chest in 2-3 months to assess for clearance. 3. Moderate to severe hepatic steatosis. Appropriate clinical management recommended. 4. Sigmoid diverticulosis without acute diverticulitis. 5. Stable 2.1 cm cystic lesion of the left ovary. Annual ultrasound surveillance follow-up recommend ed along with [facility] referral.
[2023-09-26] MEDS: MAGNESIUM OXIDE 400 MG TAB PO STA (16:34)
[2023-09-26] MEDS: ONDANSETRON 4 MG ODT STARTER PACK 2 TAB BTL PO STA (17:59)
[2023-09-26] MEDS: traMADol 50 MG STARTER PACK 3 TAB BTL PO STA (18:00)
[2023-09-26 18:08] VITALS: BP 181/87; PULSE 86; TEMP 98.6
== END 2023-09-26 18:06 | disposition home or self-care (01) ==
LOC: EC 14:00
DX: R11.2 Nausea with vomiting, unspecified (principal); R10.9 Unspecified abdominal pain; I25.10 Atherosclerotic heart disease of native coronary artery without angina pectoris; I12.9 Hypertensive chronic kidney disease with stage 1 through stage 4 chronic kidney disease, or unspecified chronic kidney disease; E11.22 Type 2 diabetes mellitus with diabetic chronic kidney disease; I44.4 Left anterior fascicular block; I25.2 Old myocardial infarction; N18.2 Chronic kidney disease, stage 2 (mild); Z91.041 Radiographic dye allergy status; Z79.82 Long term (current) use of aspirin; Z79.4 Long term (current) use of insulin; Z88.8 Allergy status to other drugs, medicaments and biological substances
CPT/HCPCS: 36415; 93005; 80053; 82150; 83605; 83690; 83735; 84100; 85025; 87636; 74176; 99285; 96374; 96375; 96376 ×2; 96361; J2405; J1170; S0119

== ENCOUNTER → 2023-09-29 | Outpatient (CLI) | payer MEDICARE, OTHER ==
[~2023-09-29] MED LIST changes: -ACETAMINOPHEN TAB 500 MG TAB PO PRN; -GABAPENTIN 300 MG CAP PO PRN; +REGADENOSON 0.4 MG/5 ML SYRINGE IV PRN; -TRANEXAMIC ACID IN NACL,ISO-OS 1,000 MG in SALINE 1 100ML.BAG IVPB PRN
--- NOTE | 2023-09-29 10:26 | CA ---
Lexiscan Nuclear Stress Test Report Name: Shalonda Smalls Exam Date: 09/29/2023 09:40 Exam Location: [facility] Ht (in): 61 Wt (lb): 197 BSA: 1.88 Ordering Phys: Tavo Lisa MD Referring Phys: Tavo Lisa MD Technologist: Abbe Banegas Age: 67 Gender: F : 1955 Procedure CPT: Indications: I50.30 CHF ICD-10 Codes: Patient History: Chest pain, hypertension, diabetes and pre op Medications: Meds past 24 hrs: Pretest Chest Pain: STRESS TEST Lexiscan Protocol Exercise Duration (min:sec): 01:[address] Depressions (mm): Angina Score: Stuart Score: Resting HR (bpm): 74 Peak HR (bpm): 87 Resting BP (mmHg): 143 / 66 Peak BP (mmHg): 140 / 60 MPHR: 153 Target HR: 130 % MPHR: 57 METS: 1.0 Total Dose: Peak Dose: Atropine: Double Product: 29355 BP Response: Stress Termination: Infusion complete Stress Symptoms: No chest pain or symptoms Stress Summary: ECG ANALYSIS Resting ECG: Sinus rhythm left axis deviation and intraventricular conduction delay and nonspecific ST-T wave changes Stress ECG: Patient was given intravenous Lexiscan as a protocol did not have chest pain or diagnostic ST segment depression CONCLUSIONS Inconclusive EKG portion of the stress test due to baseline EKG abnormalities Cardiolite portion of the stress test will be reported separately Dr. Musa Chavez MD (Electronically Signed) Final Date: 29 September 2023 10:26
--- NOTE | 2023-09-30 15:11 | NM ---
EXAMINATION TYPE: NM stress lexiscan cardiolite DATE OF EXAM: 09/29/2023 COMPARISON: NONE HISTORY: CHF TECHNIQUE: After the intravenous administration of 9.5 mCi Tc 99m Sestamibi - Cardiolite resting SPE CT images acquired 63 minutes post injection. At peak stress 25.2 mCi Tc 99m Sestamibi - Stress images obtained 49 minutes post injection The patient was stressed with 0.4mg Lexiscan. FINDINGS: There is a small fixed defect at the cardiac apex. This may be reversible. Wall motion is normal Ejection fraction is calculated to be 55 %. IMPRESSION: 1. Small defect at the cardiac apex. This appears fixed on SPECT imaging, may be reversible on Polar maps. Small amount of ischemia at the cardiac apex may be present. 2. Wall motion and ejection fraction appear normal
== END | disposition home or self-care (01) ==
LOC: RADNMMAIN 08:02
PROVIDERS: ATTEND Family Medicine
DX: Z01.810 Encounter for preprocedural cardiovascular examination (principal); R94.31 Abnormal electrocardiogram [ECG] [EKG]; I50.30 Unspecified diastolic (congestive) heart failure; I11.0 Hypertensive heart disease with heart failure; E11.9 Type 2 diabetes mellitus without complications; R07.9 Chest pain, unspecified
CPT/HCPCS: 93017; 78452; A9500; J2785

== ENCOUNTER → 2023-10-28 | Outpatient (CLI) | payer MEDICARE, OTHER ==
--- NOTE | 2023-10-28 12:49 | MR ---
EXAMINATION TYPE: MR lumbar spine wo con DATE OF EXAM: 10/28/2023 12:13 PM CLINICAL INDICATION:Female, 67 years old with history of M54.50, M21.372; PHH, Lower back pain, LLE r adiculopathy, hx surgery. COMPARISON: None TECHNIQUE: Multi planar, multi sequence imaging was performed utilizing: T1-weighted, T2-weighted, a nd turbo inversion recovery imaging of the lumbar spine. IV Contrast: cc . (None if empty) FINDINGS: Alignment: The lumbar vertebral bodies have preserved heights and alignment. Cord: The conus medullaris and the distal spinal cord appear unremarkable with regards to their signa l intensity and morphology. Bones/Discs: Postsurgical changes at L2, L3 and L4. Hardware limits evaluation. T12-L1: No evidence of significant spinal canal stenosis or neural foraminal stenosis. L1-L2: No evidence of significant spinal canal stenosis. Facet joint arthropathy mild bilateral neura l foraminal stenosis. L2-L3: Susceptibility artifact limits evaluation at this level the spinal canal and neural foramen ap pear patent. L3-L4: Susceptibility artifact limits evaluation at this level the spinal canal and neural foramen ap pear patent. L4-L5: Left foraminal/left central disc protrusion series 701 image 7 which abuts the forming nerves. The spinal canal is patent. Facet joint arthropathy with mild to moderate bilateral neural foraminal stenosis. L5-S1: The disc has a rounded posterior morphology without significant spinal canal stenosis. Facet j oint arthropathy with mild bilateral neural foraminal stenosis. No significant spinal canal or neural foraminal stenosis in the remainder of the visualized levels. Other findings: None. IMPRESSION: 1. L4-L5 foraminal /left central disc protrusion which effaces the forming nerves. 2. No definitive evidence of significant spinal canal stenosis. 3. Mild to moderate disc degeneration with associated osteoarthritic changes.
== END | disposition home or self-care (01) ==
LOC: RADMRIMAIN 09:54
PROVIDERS: ATTEND Orthopaedic Surgery
DX: M51.16 Intervertebral disc disorders with radiculopathy, lumbar region (principal); M47.26 Other spondylosis with radiculopathy, lumbar region; M21.372 Foot drop, left foot
CPT/HCPCS: 72148

== ENCOUNTER → 2024-02-27 | Outpatient (CLI) | payer MEDICARE, OTHER ==
[2024-02-27 10:03] VITALS: BP 127/75; PULSE 62; RESP 18
--- NOTE | 2024-02-27 15:09 | P.PAINPG ---
PQRS Measure Charge Sheet Comment: HISTORY OF PRESENT ILLNESS: A 68 yr old female w daughter at side as a referral from [facility] presents today w severe and chronic LBP > 1 yr secondary to radiculopathy, spondylosis and facet arthropathy without myelopathy for evaluation. Pt states pain level is provoked at 8 /10 in intensity, constant, localized in the lumbar spine, predominantly axial, sharp in character w occasional shooting pain towards the LLE. Pain is provoked by walking/ standing/ bending for periods > 3 min. Pain is alleviated by PT x 2 wks which ended in Aug 2023 which provoked pain, physician guided home stretches daily since Aug 2023, heat, ice, medications (Erbacon, Neurontin), use of a wheelchair for ambulatory assistance, repositioning and rest . PMH: OA, Asthma, CAD, [place] (2009), COPD, Diabetes Mellitus, DVT, GERD, PUD, Hyperlipidemia, HTN, CKD stage II, ANDREW, Nephrolithiasis, Anxiety PSH: Lumbar Surgery, Appendectomy, Cholecystectomy, L Ear Graft, Heart Catheterization, Hysterectomy, R Knee Replacement, BL Knee Arthroscopies, Tonsillectomy, EGD/ Colonoscopy SH: Negative x3 FH: Sis- CA. Fa- Esophageal CA/ Alcoholism. Mo- Liver Disease/ Alcoholism All: See list Meds: See list REVIEW OF ORGAN SYSTEMS: CONSTITUTIONAL: No fevers or chills. No recent weight l oss. NEUROLOGICAL: + numbness and tingling along the distal extremities. No seizure disorders or headaches. MUSCULOSKELETAL: + pain PSYCHIATRIC: Denies current depression or suicidal thoughts. Physical Examinations : Constitutional : Cooperative , not in acute distress . Neurologic : Cranial nerve II to XII intact. No focal neurological deficits. Psychiatric : alert & oriented x 3. Matching mood & appropriate affect. Judgment & insight intact. Musculoskeletal : Cervical Spine Motor strength in the deltoid and biceps: Normal right side. Normal Left side Motor strength biceps and the wrist extensors: Normal right side . Normal left side Motor strength in the triceps muscle: Normal right side. Normal left side Deep tendon reflexes: Normal at the biceps. Normal at Brachioradialis. Normal at triceps Vertebral body tenderness to deep palpation over Cervical facet loading test: positive bilaterally Spurling test: positive bilaterally Neck distraction test: positive bilaterally Seth sign: positive bilaterally Lumbar spine Motor strength lower extremities ,thigh and legs 5/5 Right side , 5/5 Left side Deep tendon reflexes : Normal Knee Jerk. Normal Ankle Jerk Vertebral body tenderness over L4 Blood Test positive L L4-L5 Lumbar facet Loading Test: positive Right / positive Left Range of motion of the lumbar spine Flexion 30 degrees, extension 10 degrees Straight Leg Raise test: Left/ Right positive at degrees Jeremy test: positive right / positive left. Severe tenderness over the Sacroiliac joint on the Right / Left sides Gaenslen test: positive bilaterally Seated flexion test: positive bilaterally. Sacral spine : Severe tenderness over the Sacroiliac joint: right side / left side Range of motion: Flexion of the lumbar spine <60 degrees Range of motion: Extension of the lumbar spine <20 degrees Gaenslen's Test positive Jeremy test: positive right side / left side Thigh Thrust Test Sacral Thrust Test Imaging: MRI non contrast lumbar spine from 10/28/23 reviewed Assessment/ Plan : Lumbar radiculopathy Recommendation of L TFESI L4-L5 #1. Risks, benefits of procedure discussed and patient verbalized understanding. Admits to anti- coagulant use or medical history of diabetes. Protocol for discontinuation/ continuation of medications marcelle procedure discussed. All questions answered. I have spent greater than 30 minutes on patient care today. Dr Shah was available by phone for the evaluation of this patient. The time was used to review the medical records including relevant urine studies and Prescription history (MAPs), review of the available imaging, evaluation and examination of the patient, coordination of care with the medical staff and if applicable referring physicians, as well as creation of the medical record - Pain Location Bilateral Back Non-Pharmacological Interventions: Position/Reposition, Sitting Pharmacological Interventions: PRN Medication, Scheduled Medication PQRS Narrative: Smoking Status Never smoker Home Medications: Ambulatory Orders Montelukast [Singulair] 10 mg PO DAILY 10/17/20 Aspirin [Adult Low Dose Aspirin EC] 81 mg PO DAILY 04/21/22 Docusate [Colace] 100 mg PO DAILY 05/21/23 Gabapentin [Neurontin] 100 mg PO TID 05/21/23 HYDROcodone/APAP 5-325MG [[place] 5-325] 1 tab PO TID 05/21/23 INSULIN ASPART (NovoLOG) [NovoLOG (formulary)] See Protocol SQ AC-TID 05/21/23 Mirabegron [Myrbetriq] 50 mg PO DAILY 05/21/23 Omeprazole 40 mg PO DAILY 05/21/23 Bumetanide [BUMEX] 1 mg PO DAILY 90 Days #90 tab 05/26/23 Dapagliflozin Propanediol [Farxiga] 10 mg PO DAILY 90 Days #90 tab 05/26/23 atenoloL [Tenormin] 50 mg PO BID 90 Days #180 tab 05/26/23 Amoxic-Pot Clav 875-125Mg [Augmentin 875-125] 1 tab PO Q12HR #20 tab 09/20/23 Azelastine HCl [Astelin Nasal [place]] 2 sprays NASAL BID 09/26/23 Fexofenadine HCl 180 mg PO DAILY 09/26/23 Fluticasone/Umeclidin/Vilanter [Trelegy Ellipta 200-62.5-25] 1 puff INHALATION RT-DAILY 09/26/23 Ondansetron Odt [Zofran Odt] 4 mg PO Q8HR PRN #20 tab 09/26/23 Pantoprazole [Protonix] 40 mg PO BID 09/26/23 metFORMIN HCL [Glucophage] 500 mg PO BID 09/26/23 diazePAM [Valium] 5 mg PO DAILY PRN 1 Days #2 tab 02/27/24 Controlled Substance Measures - Controlled Substance Measures Is patient prescribed a controlled substance at discharge?: Yes When asked, does pt state using other controlled substances?: Yes If prescribed controlled substance>3 days was MAPS reviewed?: Prescribed <3 Days
== END ==
LOC: PNWHC3 09:12
PROVIDERS: ATTEND Specialist
DX: M54.16 Radiculopathy, lumbar region
CPT/HCPCS: 99211

== ENCOUNTER → 2024-03-09 | Outpatient (CLI) | payer MEDICARE, OTHER ==
--- NOTE | 2024-03-09 19:59 | XR ---
EXAMINATION TYPE: XR shoulder complete LT DATE OF EXAM: 03/09/2024 5:49 PM CLINICAL INDICATION: Female, 68 years old with history of M25.512 LFT SHOULDER S42.002A LFT CLAVICLE, ; [facility] COMPARISON: Clavicle same day TECHNIQUE: XR shoulder complete LT; examined in AP, internally rotated and scapular Y projections. FINDINGS: No evidence of acute osseous pathology, joint dislocation, or soft tissue swelling. The remaining po rtions of the visualized chest are unremarkable. Degeneration changes of the acromion, distal clavic le with osteophyte formation. There is osteophyte formation of the glenoid and humeral head. There is joint space narrowing of glenohumeral joint. IMPRESSION: 1. No acute osseous pathology. 2. Mild shoulder osteoarthrosis. [facility], , 03/09/2024 7:57 PM
--- NOTE | 2024-03-09 20:00 | XR ---
EXAMINATION TYPE: XR clavicle LT DATE OF EXAM: 03/09/2024 5:49 PM CLINICAL INDICATION: Female, 68 years old with history of M25.512 LFT SHOULDER S42.002A LFT CLAVICLE TRAUMA; [facility] COMPARISON: Radiograph same day TECHNIQUE: XR clavicle LT examined in AP and cephalic tilt views . FINDINGS: No evidence of acute or chronic osseous pathology, joint dislocation or soft tissue swelling. IMPRESSION: Normal clavicle. [facility], , 03/09/2024 7:58 PM
== END | disposition home or self-care (01) ==
LOC: RADXRMAIN 17:13
PROVIDERS: ATTEND Family Medicine
DX: S42.002A Fracture of unspecified part of left clavicle, initial encounter for closed fracture (principal); M19.012 Primary osteoarthritis, left shoulder; X58.XXXA Exposure to other specified factors, initial encounter

== ENCOUNTER → 2024-03-20 | Day surgery (SDC) | payer MEDICARE, OTHER ==
[~2024-03-20] MED LIST changes: +LACTATED RINGERS 1,000 ML IV SCH; -REGADENOSON 0.4 MG/5 ML SYRINGE IV PRN; +methylPREDNISolone ACETATE 40 MG/ML 1 ML VIAL ONE
[2024-03-20 06:26] LABS: Glucose,Whole Blood 201 mg/dL (70-110)
[2024-03-20 06:34] VITALS: TEMP 97.1
--- NOTE | 2024-03-20 07:16 | P.PCN ---
Date of Procedure: 03/20/24 Procedure(s) Performed: PREOPERATIVE DIAGNOSIS: 1-Lumbar radiculopathy . 2-lumbar degenerative disc disease. 3-lumbar spondylosis with lumbar facet arthropathy without myelopathy POSTOPERATIVE DIAGNOSIS: 1-lumbar radiculopathy. 2-lumbar degenerative disc disease. 3-lumbar spondylosis with facet arthropathy without myelopathy PROCEDURE 1. Transforaminal epidural steroid injection under fluoroscopic guidance at left L4-5 level. (Fluoroscopy images stored on file in the radiology Department ) ANESTHESIA: Local with 1% lidocaine 3 ml. EBL: Minimal PROCEDURE INDICATION: The patient with low back pain and radiculopathy symptoms unresponsive to conservative treatment. PROCEDURE DESCRIPTION / TECHNIQUE: The patient was seen and identified in the preoperative area. Risks, benefits, complications, and alternatives were discussed with the patient. The patient agreed to proceed with the procedure and signed the consent. IV was started, and vital signs were stable. Patient was taken to the OR and time out was completed. The patient was placed in the prone position on procedure table and a pillow was placed under the abdomen to reduce lumbar lordosis. The lumbosacral area was prepped and draped in the usual sterile fashion. Critical pause was taken. Vital signs were closely monitored during the procedure. Using oblique fluoroscopy, the chin of the ``Sid dog at Left L4-5 level was identified, and the skin and deeper tissues just below was localized with 1% lidocaine. Subsequently, a 22-gauge 5-inch spinal needle was advanced under a tunneled view fluoroscopic guidance just underneath the chin of the ``Sid dog at the left L4-5 Under lateral fluoroscopy, the needle was then advanced to the posterior border of the interforaminal space. After negative aspiration of CSF and blood and with no paresthesias, Subsequently, 3 mL of block solution containing 40 mg Depo-Medrol and 2 mL of 0.9% normal saline PF was injected. Needle was removed . At the end of the procedure, skin was cleansed, and bandages were applied. COMPLICATIONS:none DISPOSITION / PLANS: The patient was placed in a supine position and transferred to the recovery area in a stable condition for observation. There was no evidence of lower extremity motor or sensory deficit after the procedure. Patient was discharged from the recovery room after meeting discharge criteria. Home discharge instructions were given to the patient by the staff. The patient was reexamined prior to discharge. note= Isovue was not injected because patient has allergy to iodinated contrast media
[2024-03-20 07:25] VITALS: RESP 16
[2024-03-20 07:40] VITALS: BP 151/84; PULSE 55
--- NOTE | 2024-03-20 09:41 | FL ---
Fluoroscopy History: TRANSFORAMINAL EPI STEROID INJ transforaminal epi steroid fl time 10.6 secs dap [id number] [facility], , 03/20/2024 9:39 AM
== END ==
LOC: ORPAIN 06:10
PROVIDERS: ATTEND Specialist
DX: M54.16 Radiculopathy, lumbar region
CPT/HCPCS: 64483

== ENCOUNTER 2024-04-03 17:44 | Inpatient (IN) | payer MEDICARE, OTHER ==
--- NOTE | 2024-04-03 19:00 | ED ---
General Adult HPI - General Chief complaint: Chest Pain Stated complaint: Chest pain, back pain, numbness Time Seen by Provider: 04/03/24 18:06 Source: patient, RN notes reviewed, old records reviewed Mode of arrival: ambulatory Limitations: no limitations - History of Present Illness Initial comments: This is a 68-year-old female who presents to the emergency department because about an hour prior to arrival she started having chest pain that radiated down her left arm. Patient also was mildly short of breath. Patient denies any back pain. Patient denies any abdominal pain patient has nausea vomiting or diarrhea. Patient has any fever chills or cough. - Related Data Home Medications Medication Instructions Recorded Confirmed Montelukast [Singulair] 10 mg PO HS 10/17/20 04/03/24 Aspirin [Adult Low Dose Aspirin EC] 81 mg PO DAILY 04/21/22 04/03/24 HYDROcodone/APAP 5-325MG [[place] 1 tab PO TID 05/21/23 04/03/24 5-325] Azelastine HCl [Astelin Nasal 2 sprays NASAL BID 09/26/23 04/03/24 [place]] Pantoprazole [Protonix] 40 mg PO BID 09/26/23 04/03/24 Dicyclomine [Bentyl] 10 mg PO TID 04/03/24 04/03/24 Gabapentin 300 mg PO TID 04/03/24 04/03/24 INSULIN LISPRO (humaLOG) [humaLOG] See Protocol SQ AC-TID 04/03/24 04/03/24 Insulin Glargine,Hum.rec.anlog 30 units SQ HS 04/03/24 04/03/24 [Lantus Solostar Pen] Previous Rx's Medication Instructions Recorded Bumetanide [BUMEX] 1 mg PO DAILY 90 Days #90 tab 05/26/23 atenoloL [Tenormin] 50 mg PO BID 90 Days #180 tab 05/26/23 Allergies Allergy/AdvReac Type Severity Reaction Status Date / Time Iodinated Contrast Media Allergy Severe Anaphylaxis Verified 04/03/24 19:10 [Iodinated Contrast Media - IV Dye] iodine Allergy Anaphylaxis Verified 04/03/24 19:10 Drdiafr-YYV-QoO Reductase Allergy Anaphylaxis Verified 04/03/24 19:10 Inhibitor [Utyeihd-Lil-Kal Reductase Inhibitor] Review of Systems ROS Statement: Those systems with pertinent positive or pertinent negative responses have been documented in the HPI. ROS Other: All systems not noted in ROS Statement are negative. Past Medical History Past Medical History: Asthma, Coronary Artery Disease (CAD), COPD, Diabetes Mellitus, Deep Vein Thrombosis (DVT), GERD/Reflux, Hyperlipidemia, Hypertension, Musculoskeletal Disorder, Osteoarthritis (OA), Renal Disease, Sleep Apnea/CPAP/BIPAP Additional Past Medical History / Comment(s): PUD, colitis, benign colon polyps, DVT L leg, migraines, ANDREW - uses cpap. kidney stones, CKD stage II, vertigo, recurrent L ear infections/ruptured eardrum, TMJ, mild CAD, back prob - NT Lt arm, leg. Edema BLE. covid + 01/19/2021 Last Myocardial Infarction Date:: 2009 History of Any Multi-Drug Resistant Organisms: None Reported Past Surgical History: Appendectomy, Cholecystectomy, Ear Surgery, Heart Catheterization, Hysterectomy, Joint Replacement, Orthopedic Surgery, Tonsillectomy Additional Past Surgical History / Comment(s): R/L knee arthroscopies, L ear patch/graft, EGD, colonoscopy/polypectomy, throat abscess. Right knee replacement, back surgery, Past Anesthesia/Blood Transfusion Reactions: Postoperative Nausea & Vomiting (PONV) Past Psychological History: Anxiety Smoking Status: Never smoker - Past Family History Sister(s) Family Medical History: Cancer Father Family Medical History: Cancer Additional Family Medical History / Comment(s): Throat and brain cancer. Father was an alcoholic. Mother Family Medical History: Liver Disease Additional Family Medical History / Comment(s): Mother is . She was an alcoholic. General Exam - General Exam Comments Initial Comments: GENERAL: Patient is well-developed and well-nourished. Patient is nontoxic and well- hydrated and is in mild distress. ENT: Neck is soft and supple. No significant lymphadenopathy is noted. Oropharynx is clear. Moist mucous membranes. Neck has full range of motion without eliciting any pain. EYES: The sclera were anicteric and conjunctiva were pink and moist. Extraocular movements were intact and pupils were equal round and reactive to light. Eyelids were unremarkable. PULMONARY: Unlabored respirations. Good breath sounds bilaterally. No audible rales rhonchi or wheezing was noted. CARDIOVASCULAR: There is a regular rate and rhythm without any murmurs gallops or rubs. ABDOMEN: Soft and nontender with normal bowel sounds. SKIN: Skin is clear with no lesions or rashes and otherwise unremarkable. NEUROLOGIC: Patient is alert and oriented x3. Cranial nerves II through XII are grossly intact. Motor and sensory are also intact. Normal speech, volume and content. Symmetrical smile. MUSCULOSKELETAL: Normal extremities with adequate strength and full range of motion. No lower extremity swelling or edema. No calf tenderness. LYMPHATICS: No significant lymphadenopathy is noted PSYCHIATRIC: Normal psychiatric evaluation. Limitations: no limitations Course Vital Signs 04/03/24 04/03/24 18:01 19:37 Temperature 98.6 F Pulse Rate 74 68 Respiratory 20 19 Rate Blood Pressure 139/85 140/74 O2 Sat by Pulse 94 L 94 L Oximetry Medical Decision Making - Medical Decision Making EKG is interpreted by myself. EKG shows a sinus rhythm at 69 bpm MI interval is 150 QRS is 118 QT interval is 380 QTc is 399. Patient's EKG shows no ST segment elevation. Was pt. sent in by a medical professional or institution (, PA, ACID PURIFICATION EQUIPMENT OPERATOR, urgent care, hospital, or [place] health [place] facility...) When possible be specific @ -No Did you speak to anyone other than the patient for history (EMS, parent, family, police, friend...)? What history was obtained from this source @ -Daughter gives quite a bit of the history Did you review nursing and triage notes (agree or disagree)? Why? @ -I reviewed and agree with nursing and triage notes Were old charts reviewed (outside hosp., previous admission, EMS record, old EKG, old radiological studies, urgent care reports/EKG's, [place] health [place] facility records)? Report findings @ -No old charts were reviewed Differential Diagnosis? @ -Differential Chest Pain: Stable Angina, Unstable Angina, STEMI, NSTEMI Aortic Dissection, Pneumothorax, Musculoskeletal, Esophageal Spasm GERD, Cholecystitis, Pancreatitis, Zoster, this is not meant to be an all-inclusive list. EKG interpreted by me (3pts min.). @ -As above X-rays interpreted by me (1pt min.). @ -Chest x-ray shows no acute normality. CT interpreted by me (1pt min.). @ -CT of the brain shows no acute abnormality. CT of the chest shows no aortic dissection no obvious pulmonary embolism. U/S interpreted by me (1pt. min.). @ -None done What testing was considered but not performed or refused? (CT, X-rays, U/S, labs)? Why? @ -None What meds were considered but not given or refused? Why? @ -None Did you discuss the management of the patient with other professionals (professionals i.e. , PA, ACID PURIFICATION EQUIPMENT OPERATOR, lab, RT, psych nurse, social sciences chair, leaf binner, teacher, staff air defense officer, case finishing machine adjuster)? Give summary @ -Patient is has an elevated troponin and I spoke with Dr. Lisa he agrees to admit the patient admit the patient. Was smoking cessation discussed for >3mins.? @ -No Was critical care preformed (if so, how long)? @ -35 minutes Were there social determinants of health that impacted care today? How? (Homelessness, low income, unemployed, alcoholism, drug addiction, transportation, low edu. Level, literacy, decrease access to med. care, assisted, rehab)? @ -No Was there de-escalation of care discussed even if they declined (Discuss DNR or withdrawal of care, Hospice)? DNR status @ -No What co-morbidities impacted this encounter? (DM, HTN, Smoking, COPD, CAD, Cancer, CVA, ARF, Chemo, Hep., AIDS, mental health diagnosis, sleep apnea, morbid obesity)? @ -None Was patient admitted / discharged? Hospital course, mention meds given and route, prescriptions, significant lab abnormalities, going to OR and other pertinent info. @ -Patient received aspirin Nitropaste in the emergency department was also started on heparin secondary to the elevated troponin. Patient also will have repeat troponin is done as an inpatient and I will consult cardiology. At 1 point time I went back in the room the patient was having some stuttering so I did CAT scan the patient's head so I returned to the room twice after that and she was no longer stuttering at all. Undiagnosed new problem with uncertain prognosis? @ -No Drug Therapy requiring intensive monitoring for toxicity (Heparin, Nitro, Insulin, Cardizem)? @ -No Were any procedures done? @ -No Diagnosis/symptom? @ -Chest pain Acute, or Chronic, or Acute on Chronic? @ -Acute Uncomplicated (without systemic symptoms) or Complicated (systemic symptoms)? @ -Complicated Side effects of treatment? @ -No Exacerbation, Progression, or Severe Exacerbation? @ -No Poses a threat to life or bodily function? How? (Chest pain, [place], [place], pneumonia, PE, COPD, DKA, ARF, appy, cholecystitis, CVA, Diverticulitis, Homicidal, Suicidal, threat to staff... and all critical care pts) @ -Yes this could lead to an TN and endorgan dysfunction Diagnosis/symptom? @ -Elevated troponin Acute, or Chronic, or Acute on Chronic? @ -Acute Uncomplicated (without systemic symptoms) or Complicated (systemic symptoms)? @ -Complicated Side effects of treatment? @ -None Exacerbation, Progression, or Severe Exacerbation] @ -No Poses a threat to life or bodily function? @ -Yes this can lead to an TN and endorgan dysfunction - Lab Data Result diagrams: 04/03/24 18:54 04/03/24 18:54 Lab Results 04/03/24 04/03/24 04/03/24 Range/Units 18:54 18:54 18:54 WBC 6.7 (3.8-10.6) k/uL RBC 4.03 (3.80-5.40) m/uL Hgb 12.4 (11.4-16.0) gm/dL Hct 37.3 (34.0-46.0) % MCV 92.6 (80.0-100.0) fL MCH 30.7 (25.0-35.0) pg MCHC 33.1 (31.0-37.0) g/dL RDW 14.6 (11.5-15.5) % Plt Count 167 (150-450) k/uL MPV 9.2 Neutrophils % 69 % Lymphocytes % 22 % Monocytes % 5 % Eosinophils % 3 % Basophils % 0 % Neutrophils # 4.6 (1.3-7.7) k/uL Lymphocytes # 1.5 (1.0-4.8) k/uL Monocytes # 0.3 (0-1.0) k/uL Eosinophils # 0.2 (0-0.7) k/uL Basophils # 0.0 (0-0.2) k/uL PT 10.7 (10.0-12.5) sec INR 1.0 (<1.2) APTT 25.0 (22.0-30.0) sec D-Dimer 1.66 H (<0.60) mg/L FEU Sodium 140 (137-145) mmol/L Potassium 3.7 (3.5-5.1) mmol/L Chloride 105 (98-107) mmol/L Carbon Dioxide 28 (22-30) mmol/L Anion Gap 7 mmol/L BUN 17 (7-17) mg/dL Creatinine 1.17 H (0.52-1.04) mg/dL Est GFR (CKD-EPI)AfAm 55 (>60 ml/min/1.73 sqM) Est GFR (CKD-EPI)NonAf 48 (>60 ml/min/1.73 sqM) Glucose 222 H (74-99) mg/dL Calcium 9.4 (8.4-10.2) mg/dL Magnesium 1.6 (1.6-2.3) mg/dL Total Bilirubin 0.6 (0.2-1.3) mg/dL AST 20 (14-36) U/L ALT 14 (4-34) U/L Alkaline Phosphatase 68 (38-126) U/L Troponin I (0.000-0.034) ng/mL Total Protein 6.4 (6.3-8.2) g/dL Albumin 4.0 (3.5-5.0) g/dL 04/03/24 Range/Units 18:54 WBC (3.8-10.6) k/uL RBC (3.80-5.40) m/uL Hgb (11.4-16.0) gm/dL Hct (34.0-46.0) % MCV (80.0-100.0) fL MCH (25.0-35.0) pg MCHC (31.0-37.0) g/dL RDW (11.5-15.5) % Plt Count (150-450) k/uL MPV Neutrophils % % Lymphocytes % % Monocytes % % Eosinophils % % Basophils % % Neutrophils # (1.3-7.7) k/uL Lymphocytes # (1.0-4.8) k/uL Monocytes # (0-1.0) k/uL Eosinophils # (0-0.7) k/uL Basophils # (0-0.2) k/uL PT (10.0-12.5) sec INR (<1.2) APTT (22.0-30.0) sec D-Dimer (<0.60) mg/L FEU Sodium (137-145) mmol/L Potassium (3.5-5.1) mmol/L Chloride (98-107) mmol/L Carbon Dioxide (22-30) mmol/L Anion Gap mmol/L BUN (7-17) mg/dL Creatinine (0.52-1.04) mg/dL Est GFR (CKD-EPI)AfAm (>60 ml/min/1.73 sqM) Est GFR (CKD-EPI)NonAf (>60 ml/min/1.73 sqM) Glucose (74-99) mg/dL Calcium (8.4-10.2) mg/dL Magnesium (1.6-2.3) mg/dL Total Bilirubin (0.2-1.3) mg/dL AST (14-36) U/L ALT (4-34) U/L Alkaline Phosphatase (38-126) U/L Troponin I 0.071 H* (0.000-0.034) ng/mL Total Protein (6.3-8.2) g/dL Albumin (3.5-5.0) g/dL Disposition Clinical Impression: Unstable angina, Elevated troponin Disposition: ADMITTED IP TO THIS HOSP Referrals: Tavo Lisa MD [Primary Care Provider] - 1-2 days Time of Disposition: 21:30
[2024-04-03 19:19] LABS: Basophils % (A) 0 %; Eosinophils # (A) 0.2 k/uL (0-0.7); Eosinophils % (A) 3 %; HCT 37.3 % (34.0-46.0); HGB 12.4 gm/dL (11.4-16.0); Lymphocytes # (A) 1.5 k/uL (1.0-4.8); Lymphocytes % (A) 22 %; MCH 30.7 pg (25.0-35.0); MCHC 33.1 g/dL (31.0-37.0); MCV 92.6 fL (80.0-100.0); Mean Platelet Volume 9.2; Monocytes # (A) 0.3 k/uL (0-1.0); Monocytes % (A) 5 %; Neutrophils # (A) 4.6 k/uL (1.3-7.7); Neutrophils % (A) 69 %; Platelet Count 167 k/uL (150-450); RBC 4.03 m/uL (3.80-5.40); RDW 14.6 % (11.5-15.5); WBC 6.7 k/uL (3.8-10.6)
[2024-04-03 19:27] LABS: Prothrombin Time 10.7 sec (10.0-12.5)
[2024-04-03 19:29] LABS: ALT 14 U/L (4-34); AST 20 U/L (14-36); African American GFR (CKD) 55 (>60 ml/min/1.73 sqM); Alkaline Phosphatase 68 U/L (38-126); Anion Gap 7 mmol/L; Blood Urea Nitrogen 17 mg/dL (7-17); Calcium 9.4 mg/dL (8.4-10.2); Carbon Dioxide 28 mmol/L (22-30); Chloride 105 mmol/L (98-107); Glucose 222 mg/dL (74-99); Magnesium 1.6 mg/dL (1.6-2.3); Non-African American GFR(CKD) 48 (>60 ml/min/1.73 sqM); Potassium 3.7 mmol/L (3.5-5.1); Sodium 140 mmol/L (137-145); Total Bilirubin 0.6 mg/dL (0.2-1.3); Total Protein 6.4 g/dL (6.3-8.2)
[2024-04-03] MEDS: LORazepam 2 MG/ML INJ IV STA (20:04)
--- NOTE | 2024-04-03 20:28 | XR ---
EXAMINATION TYPE: XR chest 2V DATE OF EXAM: 04/03/2024 8:25 PM CLINICAL INDICATION: Female, 68 years old with history of Chest Pain; [facility] COMPARISON: Chest radiographs from 05/21/2023 TECHNIQUE: XR chest 2V Frontal view of the chest. FINDINGS: Lungs/Pleura: There is no evidence of pleural effusion, focal consolidation, or pneumothorax. Pulmonary vascularity: Unremarkable. Heart/mediastinum: Cardiomediastinal silhouette is unremarkable. Musculoskeletal: No acute osseous pathology. Other findings: None IMPRESSION: No acute cardiopulmonary disease/process. [facility], , 04/03/2024 8:26 PM
[2024-04-03] MEDS: methylPREDNISolone SOD SUCCI 125 MG/2 ML VIAL IV STA (20:38)
[2024-04-03] MEDS: diphenhydrAMINE 50 MG/ML 1 ML VIAL IVP STA (20:39)
[2024-04-03] MEDS: FAMOTIDINE 20 MG/2 ML VIAL IV STA (20:39)
[2024-04-03] MEDS ORDERED: NITROGLYCERIN SL TABS 0.4 MG TAB SUBLINGUAL PRN (21:32)
--- NOTE | 2024-04-03 21:42 | CT ---
EXAMINATION TYPE: CT angio thor/abd pel aorta CT DLP: 3312.5 mGycm, Automated exposure control for dose reduction was used. DATE OF EXAM: 04/03/2024 9:30 PM COMPARISON: 09/26/2023. CLINICAL INDICATION: Female, 68 years old with history of Chest pain, elevated D-dimer; PHH, Positive dimer, chest pain TECHNIQUE: CT noncontrast chest abdomen pelvis followed by CT contrast angiogram chest abdomen pelvis. Multiple axial CT images of the chest, abdomen, and pelvis were obtained prior and to the administration of IV contrast. 3-D reformats and maximum intensity projection format were performed on a separate worksta tion. Contrast used:80 mL of Isovue 370 without and with IV Contrast, Oral contrast used: FINDINGS: ARTERIAL VASCULATURE: Ascending thoracic aorta and descending thoracic aorta are within normal limits for size. There is no evidence for intramural hematoma within the aorta on noncontrast imaging. Post contrast imaging demonstrates no evidence for dissection. The major vessels of the aortic arch are pa tent. The major vessels of the abdominal aorta are patent. Mild atherosclerotic changes of the thorac ic aorta. PULMONARY ARTERIAL VASCULATURE: Normal caliber. No evidence of filling defect to suggest pulmonary em bolus. VENOUS SYSTEM: Unremarkable. LUNGS/ PLEURA: The lung parenchyma appears unremarkable. Right interstitial lung markings along the pleura possibly on the basis of scarring. Finding seen back to us her stent from 09/26/2023. Lower mona g streaky AIRWAY: Patent and unremarkable. HEART: The heart is mildly increased in size..Atherosclerosis of the arterial vasculature. MEDIASTINUM: No gross evidence of adenopathy. MUSCULOSKELETAL: Moderate disc degeneration changes are present throughout the thoracolumbar spine. SOFT TISSUES/LYMPH NODES: Unremarkable. LOWER NECK: No significant findings. Abdomen: LIVER: Unremarkable GALLBLADDER AND BILE DUCTS: Gallbladder surgically absent. PANCREAS: Unremarkable. SPLEEN: Unremarkable. ADRENAL GLANDS: Unremarkable. KIDNEYS AND URETERS: Nonobstructing right renal 10 mm calculus. 4 mm left renal calculus. No hydronep hrosis. PELVIS BLADDER: Unremarkable REPRODUCTIVE: The uterus is surgically absent. ABDOMEN & PELVIS STOMACH AND BOWEL: No evidence of bowel obstruction. Scattered colonic diverticula. PERITONEUM/RETROPERITONEUM: No evidence of pneumoperitoneum or free fluid. MUSCULOSKELETAL: No acute osseous abnormalities, postsurgical changes to the spine with hardware in p lace hardware appears intact. LYMPH NODES: No gross evidence for lymphadenopathy. SOFT TISSUE/ABDOMINAL WALL: Unremarkable IMPRESSION: 1. No evidence for aortic dissection, aneurysm or occlusion. No evidence for pulmonary embolus and c entral pulmonary vasculature. 2. Increased interstitial lung markings most pronounced in the medial aspect of the right lower lobe correlate for chronic scarring versus sequela prior infection. 3. Mild cardiomegaly. 4. Moderate to severe coronary artery cusp patient's. 5. Colonic diverticulosis. [facility], Workstation: [id number], 04/03/2024 9:40 PM
--- NOTE | 2024-04-03 21:43 | CT ---
EXAMINATION TYPE: CT brain wo con CT DLP: 3312.5 mGycm, Automated exposure control for dose reduction was used. DATE OF EXAM: 04/03/2024 9:22 PM COMPARISON: 09/20/2023. CLINICAL INDICATION: Female, 68 years old with history of Occasional stuttering, Occassional stutter TECHNIQUE: Brain: Axial CT images of the brain were obtained with coronal and sagittal reformats created and rev iewed. Contrast used: None. Oral contrast used: None. FINDINGS: Brain: Extra-axial spaces: No abnormal extra-axial fluid collections. Ventricular system: Within normal limits Cerebral parenchyma: No acute intraparenchymal hemorrhage or mass effect. The anderson-white junction is well differentiated. Cerebellum: Unremarkable. Mass effect: No evidence of midline shift. Intracranial vasculature: Atherosclerotic calcifications of the intracranial vessels. Soft tissues: Normal. Calvarium/osseous structures: No depressed skull fracture. Paranasal sinuses and mastoid air cells: Mild scattered paranasal sinus disease. Visualized orbits: Bilateral aphakia IMPRESSION: 1. No acute intracranial process. 2. Nonspecific white matter changes, likely secondary to chronic small vessel ischemic disease. [facility], , 04/03/2024 9:41 PM
[2024-04-03] MEDS: HEPARIN SOD,PORK IN 0.45% NACL 25,000 UNIT in 0.45% NACL 1 250ML.BAG IV SCH (22:33)
[2024-04-03] MEDS: HEPARIN SODIUM 1,000 UN/ML (10ML VL) IV ONE (22:34)
[2024-04-03] MEDS: NITROGLYCERIN OINT 1 INCH/GM PACKET TOPICAL SCH (23:30)
[2024-04-04] MEDS: methylPREDNISolone SOD SUCCI 40 MG/ML 1 ML VIAL IV SCH (01:16)
[2024-04-04 03:41] LABS: Glucose,Whole Blood 423 mg/dL (70-110)
[2024-04-04 03:43] LABS: Partial Thromboplastin Time 73.8 sec (22.0-30.0); Prothrombin Time 11.2 sec (10.0-12.5)
[2024-04-04] MEDS ORDERED: INSULIN ASPART (NovoLOG) 100 UNIT/ML VIAL SQ PRN (04:02)
[2024-04-04] MEDS: IPRATROPIUM-ALBUTEROL 3 ML NEB INHALATION SCH ×2 (07:53→20:34)
[2024-04-04] MEDS: BUDESONIDE 0.5 MG/2 ML NEBU INHALATION SCH (07:53)
[2024-04-04] MEDS: ASPIRIN 325 MG TAB PO SCH (08:24)
[2024-04-04] MEDS: GABAPENTIN 300 MG CAP PO SCH (08:35)
[2024-04-04] MEDS: HYDROcodone/APAP 5-325MG 1 EACH TAB PO SCH (08:35)
[2024-04-04] MEDS: ASPIRIN 81 MG PO SCH (08:35)
[2024-04-04] MEDS: BUMETANIDE 1 MG TAB PO SCH (08:35)
[2024-04-04] MEDS: DICYCLOMINE 10 MG CAP PO SCH (08:36)
[2024-04-04] MEDS: atenoloL 50 MG TAB PO SCH (08:36)
[2024-04-04] MEDS: PANTOPRAZOLE 40 MG TABLET PO SCH (08:38)
[2024-04-04 08:46] LABS: Glucose,Whole Blood 399 mg/dL (70-110)
[2024-04-04] MEDS: AZELASTINE 137MCG/SPRAY NASAL SCH (08:46)
[2024-04-04] MEDS ORDERED: DEXTROSE 50% SYRINGE 50 ML IVP PRN ×2 (08:48)
[2024-04-04] MEDS: INSULIN ASPART (NovoLOG) 100 UNIT/ML VIAL SQ SCH (08:54)
[2024-04-04] MEDS: DAPAGLIFLOZIN PROPANEDIOL 10 MG TABLET PO SCH (10:10)
--- NOTE | 2024-04-04 10:40 | P.CRDCN ---
History of Present Illness Consult date: 04/04/24 Consult reason: chest pain History of present illness: This is a 68-year-old female patient seen in [address] Zeyad Chavez in the office with past medical history of diabetes, hypertension, hyperlipidemia, known to have nonobstructive coronary artery disease, history of DVT, obstructive sleep apnea on CPAP, chronic kidney disease stage II. We have been asked to evaluate the patient for unstable angina and elevated troponin. Patient gives history that for a couple of days she developed some chest pressure that was on the left upper area for at least 3 days. It is a pressure type sensation. Following that by about 1 day, patient developed problems with finding words and forgetting words, stuttering started yesterday. Blood pressure 135/71, heart rate 78, patient is seen today in the emergency center waiting for bed on the cardiac stepdown unit. Heparin drip has been started. EKG: Sinus rhythm with left axis deviation nonspecific ST changes Chest x-ray: No acute process CAT scan of the brain revealed no acute intracranial process. CT angio of the thorax and abdominal pelvis: No evidence of aortic dissection, aneurysm or occlusion. No evidence of pulmonary embolus. Increased interstitial lung markings most pronounced in the medial aspect of the right lower lobe correlate for chronic scarring versus sequela prior surgery. Mild cardiomegaly. Moderate to severe coronary atherosclerosis. Laboratory studies: CBC within normal limits. D-dimer 1.66. Sodium 140, potassium 3.7, BUN 17 creatinine 1.17. Troponin 0.071, 0.077, 0.068. Home cardiac medications: Aspirin 81 mg daily, atenolol 50 mg twice daily, Bumex 1 mg daily. Cardiac catheterization performed 07/18/2019 revealed mild nonobstructive coronary artery disease involving the LAD. Review Of Systems: At the time of my exam: CONSTITUTIONAL: Denies fever or chills. Reports forgetting words, stuttering. HEENT: Denies blurred vision, vision changes, or eye pain. Denies hemoptysis CARDIOVASCULAR: Denies chest pain. Denies orthopnea. Denies PND. Denies palpitat ions RESPIRATORY: Denies shortness of breath. GASTROINTESTINAL: Denies abdominal pain. Denies nausea or vomiting. HEMATOLOGIC: Denies bleeding disorders. GENITOURINARY: Denies any blood in urine. SKIN: Denies puritis. Denies rash. Physical examination: Gen: This is a 68-year-old female in no acute distress VS: reviewed HEENT: Head is atraumatic, normocephalic. Pupils equal, round. Sclerae is a nicteric. NECK: Supple. No JVD. LUNGS: Clear to auscultation. No wheezes or rhonchi. No intercostal retractions. HEART: Regular rate and rhythm. No murmur. ABDOMEN: Soft No tenderness. EXTREMITIES: No pedal edema. No calf tenderness. NEUROLOGICAL: Patient is awake, alert and oriented x3. Assessment: Atypical chest pain, troponins have a flat pattern. Neurological symptoms with forgetting words, stuttering Elevated D-dimer, negative for PE History of nonobstructive coronary artery disease in the LAD on cardiac catheterization from 2019 Diabetes Hypertension Hyperlipidemia history of DVT Obstructive sleep apnea on CPAP Chronic kidney disease stage II Anaphylactic reaction to statins Plan: Resume patient's home cardiac medications Aspirin 81 mg daily No statin due to anaphylactic reaction Continue heparin drip Obtain 2-D echocardiogram and Doppler study to assess cardiac structure and function Further recommendations to follow based upon clinical course Thank you kindly for this consultation. Nurse practitioner note has been reviewed, I agree with documented findings and plan of care. Patient was seen and examined. Past Medical History Past Medical History: Asthma, Coronary Artery Disease (CAD), COPD, Diabetes Mellitus, Deep Vein Thrombosis (DVT), GERD/Reflux, Hyperlipidemia, Hypertension, Musculoskeletal Disorder, Osteoarthritis (OA), Renal Disease, Sleep Apnea/CPAP/BIPAP Additional Past Medical History / Comment(s): PUD, colitis, benign colon polyps, DVT L leg, migraines, ANDREW - uses cpap. kidney stones, CKD stage II, vertigo, recurrent L ear infections/ruptured eardrum, TMJ, mild CAD, back prob - NT Lt arm, leg. Edema BLE. covid + 01/19/2021 Last Myocardial Infarction Date:: 2009 History of Any Multi-Drug Resistant Organisms: None Reported Past Surgical History: Appendectomy, Cholecystectomy, Ear Surgery, Heart Cathete rization, Hysterectomy, Joint Replacement, Orthopedic Surgery, Tonsillectomy Additional Past Surgical History / Comment(s): R/L knee arthroscopies, L ear patch/graft, EGD, colonoscopy/polypectomy, throat abscess. Right knee replacement, back surgery, Past Anesthesia/Blood Transfusion Reactions: Postoperative Nausea & Vomiting (PONV) Past Psychological History: Anxiety Smoking Status: Never smoker - Past Family History Sister(s) Family Medical History: Cancer Father Family Medical History: Cancer Additional Family Medical History / Comment(s): Throat and brain cancer. Father was an alcoholic. Mother Family Medical History: Liver Disease Additional Family Medical History / Comment(s): Mother is . She was an alcoholic. Medications and Allergies Home Medications Medication Instructions Recorded Confirmed Type Montelukast [Singulair] 10 mg PO HS 10/17/20 04/03/24 History Aspirin [Adult Low Dose Aspirin EC] 81 mg PO DAILY 04/21/22 04/03/24 History HYDROcodone/APAP 5-325MG [[place] 1 tab PO TID 05/21/23 04/03/24 History 5-325] Bumetanide [BUMEX] 1 mg PO DAILY 90 Days #90 tab 05/26/23 04/03/24 Rx atenoloL [Tenormin] 50 mg PO BID 90 Days #180 tab 05/26/23 04/03/24 Rx Azelastine HCl [Astelin Nasal 2 sprays NASAL BID 09/26/23 04/03/24 History [place]] Pantoprazole [Protonix] 40 mg PO BID 09/26/23 04/03/24 History Dicyclomine [Bentyl] 10 mg PO TID 04/03/24 04/03/24 History Gabapentin 300 mg PO TID 04/03/24 04/03/24 History INSULIN LISPRO (humaLOG) [humaLOG] See Protocol SQ AC-TID 04/03/24 04/03/24 History Insulin Glargine,Hum.rec.anlog 30 units SQ HS 04/03/24 04/03/24 History [Lantus Solostar Pen] Allergies Allergy/AdvReac Type Severity Reaction Status Date / Time Iodinated Contrast Media Allergy Severe Anaphylaxis Verified 04/03/24 19:10 [Iodinated Contrast Media - IV Dye] iodine Allergy Anaphylaxis Verified 04/03/24 19:10 Wpowrjc-UCS-SnZ Reductase Allergy Anaphylaxis Verified 04/03/24 19:10 Inhibitor [Hgmwvjb-Lom-Zei Reductase Inhibitor] Physical Exam Vitals: Vital Signs Temp Pulse Resp BP Pulse Ox 04/04/24 08:05 75 04/04/24 07:54 71 04/04/24 06:25 97.5 F L 75 18 135/71 96 04/03/24 23:26 98.1 F 70 18 141/78 96 04/03/24 21:52 98.2 F 70 18 157/75 93 L 04/03/24 19:37 68 19 140/74 94 L 04/03/24 18:01 98.6 F 74 20 139/85 94 L Intake and Output 04/03/24 04/04/24 04/04/24 22:59 06:59 14:59 Intake Total 53.79 Balance 53.79 Intake: Intake, IV Titration 53.79 Amount Heparin Sod,Pork in 0.45% 53.79 NaCl 25,000 unit In 0.45 % NaCl 1 250ml.bag @ 11. 63 UNITS/KG/HR 10.023 mls /hr IV .Q24H [facility] Rx#: [id number] Other: Weight 86.183 kg Results 04/03/24 18:54 04/03/24 18:54 Cardiac Enzymes 04/03/24 04/03/24 04/03/24 Range/Units 18:54 18:54 23:21 AST 20 (14-36) U/L Troponin I 0.071 H* 0.077 H* (0.000-0.034) ng/mL 04/04/24 Range/Units 00:53 AST (14-36) U/L Troponin I 0.068 H* (0.000-0.034) ng/mL Coagulation 04/03/24 04/04/24 Range/Units 18:54 02:55 PT 10.7 11.2 (10.0-12.5) sec APTT 25.0 73.8 H (22.0-30.0) sec CBC 04/03/24 Range/Units 18:54 WBC 6.7 (3.8-10.6) k/uL RBC 4.03 (3.80-5.40) m/uL Hgb 12.4 (11.4-16.0) gm/dL Hct 37.3 (34.0-46.0) % Plt Count 167 (150-450) k/uL Comprehensive Metabolic Panel 04/03/24 Range/Units 18:54 Sodium 140 (137-145) mmol/L Potassium 3.7 (3.5-5.1) mmol/L Chloride 105 (98-107) mmol/L Carbon Dioxide 28 (22-30) mmol/L BUN 17 (7-17) mg/dL Creatinine 1.17 H (0.52-1.04) mg/dL Glucose 222 H (74-99) mg/dL Calcium 9.4 (8.4-10.2) mg/dL AST 20 (14-36) U/L ALT 14 (4-34) U/L Alkaline Phosphatase 68 (38-126) U/L Total Protein 6.4 (6.3-8.2) g/dL Albumin 4.0 (3.5-5.0) g/dL Current Medications Generic Name Dose Route Start Last Admin Trade Name Freq PRN Reason Stop Dose Admin Hydrocodone Bitart/Acetaminophen 1 each 04/04/24 09:00 Hydrocodone/Apap 5-325mg 1 Each Tab PO TID [facility] Albuterol/Ipratropium 3 ml 04/04/24 08:00 04/04/24 07:53 Ipratropium-Albuterol 3 Ml Neb INHALATION 3 ml RT-QID [facility] Administration Aspirin 325 mg 04/04/24 09:00 Aspirin 325 Mg Tab PO DAILY [facility] Aspirin 81 mg 04/04/24 09:00 Aspirin 81 Mg PO DAILY [facility] Atenolol 50 mg 04/04/24 09:00 Atenolol 50 Mg Tab PO BID [facility] Azelastine HCl 2 spray 04/04/24 09:00 Azelastine 137mcg/[place] NASAL BID [facility] Budesonide 0.5 mg 04/04/24 08:00 04/04/24 07:53 Budesonide 0.5 Mg/2 Ml Nebu INHALATION 0.5 mg RT-BID [facility] Administration Bumetanide 1 mg 04/04/24 09:00 Bumetanide 1 Mg Tab PO DAILY [facility] Dicyclomine HCl 10 mg 04/04/24 09:00 Dicyclomine 10 Mg Cap PO TID [facility] Gabapentin 300 mg 04/04/24 09:00 Gabapentin 300 Mg Cap PO TID [facility] Heparin Sodium/Sodium Chloride 250 mls @ 10.023 mls/hr 04/03/24 21:45 04/04/24 03:55 25,000 unit/ Sodium Chloride IV 9.63 units/kg/hr .Q24H AMPARO 8.299 mls/hr Titration Protocol 11.63 UNITS/KG/HR Insulin Aspart 0 unit 04/04/24 04:02 Insulin Aspart (Novolog) 100 Unit/Ml Vial SQ 04/09/24 04:01 ACHS PRN Blood Sugar - High Protocol Insulin Detemir 30 unit 04/04/24 21:00 Insulin Detemir (Levemir) 100 Unit/Ml Syr SQ HS [facility] Methylprednisolone Sodium Succinate 40 mg 04/04/24 00:00 04/04/24 01:16 Methylprednisolone Sod Succi 40 Mg/Ml 1 Ml Vial IV 40 mg Q8HR AMPARO Administration Montelukast Sodium 10 mg 04/04/24 21:00 Montelukast 10 Mg Tab PO HS AMPARO Nitroglycerin 0.4 mg 04/03/24 21:32 Nitroglycerin Sl Tabs 0.4 Mg Tab SUBLINGUAL Q5M PRN Chest Pain Nitroglycerin 1 inch 04/04/24 00:00 04/04/24 06:26 Nitroglycerin Oint 1 Inch/Gm Packet TOPICAL 1 inch Q6HR AMPARO Administration Pantoprazole Sodium 40 mg 04/04/24 09:00 Pantoprazole 40 Mg Tablet PO BID [facility] Intake and Output 04/03/24 04/04/24 04/04/24 22:59 06:59 14:59 Intake Total 53.79 Balance 53.79 Intake: Intake, IV Titration 53.79 Amount Heparin Sod,Pork in 0.45% 53.79 NaCl 25,000 unit In 0.45 % NaCl 1 250ml.bag @ 11. 63 UNITS/KG/HR 10.023 mls /hr IV .Q24H [facility] Rx#: [id number] Other: Weight 86.183 kg 04/03/24 18:54 04/03/24 18:54
--- NOTE | 2024-04-04 10:46 | HP ---
HISTORY AND PHYSICAL HISTORY OF PRESENT ILLNESS: A 68-year-old white female, who was admitted to the hospital for altered mental status, pain radiating down her left arm, mildly short of breath. Denies any nausea, vomiting, diarrhea. Had a prior stroke, has severe COPD. HOME MEDICATIONS: 1. Singulair 10 mg daily. 2. Aspirin 81 daily. 3. [place] 5/325 t.i.d. 4. Astelin nasal spray daily. 5. Protonix 40 b.i.d. 6. 10 t.i.d. 7. Gabapentin 300 t.i.d. 8. Humalog a.c. and h.s. 9. Lantus 30 units at night. ALLERGIES: To iodine, statins. REVIEW OF SYSTEMS: Chronic fatigue, weakness, shortness of breath. The 14 point review of systems otherwise negative. PAST MEDICAL HISTORY: 1. Asthma. 2. Coronary artery disease. 3. COPD. 4. Diabetes mellitus. 5. DVT. 6. GERD. 7. Dyslipidemia. 8. Hypertension. 9. Osteoarthritis. 10.Renal disease. 11.Sleep apnea. 12.She has migraines. 13.She does not have her CPAP at home. PAST SURGICAL HISTORY: 1. Appendectomy. 2. Cholecystectomy. 3. Heart catheterization. 4. Eye surgery. 5. Hysterectomy. 6. Joint replacement. 7. Orthopedic surgery. 8. Tonsillectomy. 9. Bilateral knee arthroscopies. 10.History of anxiety. FAMILY HISTORY: Sister has cancer. Father, cancer. Mother, liver disease. PHYSICAL EXAMINATION: GENERAL: Well developed, well nourished. She appears in mild distress. NECK: Supple. Pupils equal, round, and reactive. LUNGS: Mild rales and wheeze. CARDIOVASCULAR: S1, S2. ABDOMEN: Soft. Nontender. SKIN: Warm and dry. NEUROLOGIC: Cranial nerves intact. MUSCULOSKELETAL: Normal range of motion. LYMPH: No lymphadenopathy. PSYCH: Fair mood and affect. VITAL SIGNS: Blood pressure 130 to 140s over 70s to 80s, O2 of 94 on room air, respiratory rate 18 to 20, . EKG shows sinus rhythm. Cardiology consult for non-STEMI, altered mental status. We will order a D-dimer, CTA of the chest. V/Q scan will be done. Diabetes control, COPD control, possibly workup for Parkinson's or something in that nature. Brain CT has been ordered. Prognosis guarded. MMODL / IJN: [id number] /
[2024-04-04 11:40] LABS: Glucose,Whole Blood 329 mg/dL (70-110)
[2024-04-04] MEDS: HEPARIN SODIUM 1,000 UN/ML (10ML VL) IV PRN (11:43)
[2024-04-04 12:46] LABS: Chol/HDL Ratio 4.17 Ratio; VLDL Calculation 15.98 mg/dL (5.00-40.00)
--- NOTE | 2024-04-04 15:56 | P.CNPUL ---
History of Present Illness Consult date: 04/04/24 Reason for consult: dyspnea, obstructive sleep apnea, other Chief complaint: Progressive confusion for last 3 days History of present illness: 68-year-old female who presented to the hospital with chest pain and left arm pain note that having some confusion as she cannot recall the name of her dog. Specific questioning denies any fever chills denies any headache photophobia lacrimation, denies any weakness in any part of the body, she has other active medical problems significant asthma COPD and sleep apnea patient has a CPAP machine as well. Chest x-ray unremarkable ECG normal sinus rhythm with right bundle branch block, CT scan of the chest no evidence of aortic dissection or aneurysm no PE, prominent interstitium seen right lower lobe cardiomegaly, diverticulosis. Acute intracranial process CT scan of the head labs include CBC within normal limit, chemistry BUN/creatinine 17/1.17, glucose was 222, troponin elevated 0.077, D-dimer is 1.66 down to 1.19 Past medical history significant for chronic asthmatic bronchitis, coronary artery disease, COPD, diabetes, DVT, dyslipidemia, hypertension hypertensive cardiovascular disease, obstructive sleep apnea chronic kidney disease Review of Systems All systems: negative Past Medical History Past Medical History: Asthma, Coronary Artery Disease (CAD), COPD, Diabetes Mellitus, Deep Vein Thrombosis (DVT), GERD/Reflux, Hyperlipidemia, Hypertension, Musculoskeletal Disorder, Osteoarthritis (OA), Renal Disease, Sleep Apnea/CPAP/BIPAP Additional Past Medical History / Comment(s): PUD, colitis, benign colon polyps, DVT L leg, migraines, ANDREW - uses cpap. kidney stones, CKD stage II, vertigo, recurrent L ear infections/ruptured eardrum, TMJ, mild CAD, back prob - NT Lt arm, leg. Edema BLE. covid + 01/19/2021 Last Myocardial Infarction Date:: 2009 History of Any Multi-Drug Resistant Organisms: None Reported Past Surgical History: Appendectomy, Cholecystectomy, Ear Surgery, Heart Catheterization, Hysterectomy, Joint Replacement, Orthopedic Surgery, Tonsillectomy Additional Past Surgical History / Comment(s): R/L knee arthroscopies, L ear patch/graft, EGD, colonoscopy/polypectomy, throat abscess. Right knee replacement, back surgery, Past Anesthesia/Blood Transfusion Reactions: Postoperative Nausea & Vomiting (PONV) Past Psychological History: Anxiety Smoking Status: Never smoker - Past Family History Sister(s) Family Medical History: Cancer Father Family Medical History: Cancer Additional Family Medical History / Comment(s): Throat and brain cancer. Father was an alcoholic. Mother Family Medical History: Liver Disease Additional Family Medical History / Comment(s): Mother is . She was an alcoholic. Medications and Allergies Home Medications Medication Instructions Recorded Confirmed Type Montelukast [Singulair] 10 mg PO HS 10/17/20 04/03/24 History Aspirin [Adult Low Dose Aspirin EC] 81 mg PO DAILY 04/21/22 04/03/24 History HYDROcodone/APAP 5-325MG [[place] 1 tab PO TID 05/21/23 04/03/24 History 5-325] Bumetanide [BUMEX] 1 mg PO DAILY 90 Days #90 tab 05/26/23 04/03/24 Rx atenoloL [Tenormin] 50 mg PO BID 90 Days #180 tab 05/26/23 04/03/24 Rx Azelastine HCl [Astelin Nasal 2 sprays NASAL BID 09/26/23 04/03/24 History [place]] Pantoprazole [Protonix] 40 mg PO BID 09/26/23 04/03/24 History Dicyclomine [Bentyl] 10 mg PO TID 04/03/24 04/03/24 History Gabapentin 300 mg PO TID 04/03/24 04/03/24 History INSULIN LISPRO (humaLOG) [humaLOG] See Protocol SQ AC-TID 04/03/24 04/03/24 History Insulin Glargine,Hum.rec.anlog 30 units SQ HS 04/03/24 04/03/24 History [Lantus Solostar Pen] Allergies Allergy/AdvReac Type Severity Reaction Status Date / Time Iodinated Contrast Media Allergy Severe Anaphylaxis Verified 04/03/24 19:10 [Iodinated Contrast Media - IV Dye] iodine Allergy Anaphylaxis Verified 04/03/24 19:10 Avzgvga-ZKK-RwD Reductase Allergy Anaphylaxis Verified 04/03/24 19:10 Inhibitor [Hrusxvx-Nqf-Plc Reductase Inhibitor] Physical Exam Vitals: Vital Signs Temp Pulse Resp BP Pulse Ox 04/04/24 12:25 63 04/04/24 12:15 61 04/04/24 11:46 87 18 145/73 98 04/04/24 10:11 74 18 135/71 100 04/04/24 08:31 74 18 135/71 94 L 04/04/24 08:05 75 04/04/24 07:54 71 04/04/24 06:25 97.5 F L 75 18 135/71 96 04/03/24 23:26 98.1 F 70 18 141/78 96 04/03/24 21:52 98.2 F 70 18 157/75 93 L 04/03/24 19:37 68 19 140/74 94 L 04/03/24 18:01 98.6 F 74 20 139/85 94 L Intake and Output 04/04/24 04/04/24 04/04/24 06:59 14:59 22:59 Intake Total 53.79 64.732 Balance 53.79 64.732 Intake: Intake, IV Titration 53.79 64.732 Amount Heparin Sod,Pork in 0.45% 53.79 64.732 NaCl 25,000 unit In 0.45 % NaCl 1 250ml.bag @ 11. 63 UNITS/KG/HR 10.023 mls /hr IV .[facility]H [facility] Rx#: [id number] - Constitutional General appearance: average body habitus, cooperative, disheveled - EENT Eyes: EOMI, PERRLA Ears: bilateral: normal - Neck Carotids: bilateral: upstroke normal Thyroid: bilateral: normal size - Respiratory Respiratory: right: rales - Cardiovascular Rhythm: regular Heart sounds: normal: S1, S2 - Gastrointestinal General gastrointestinal: normal bowel sounds - Integumentary Integumentary: normal turgor - Neurologic Neurologic: CNII-XII intact - Musculoskeletal Musculoskeletal: generalized weakness - Psychiatric Psychiatric: A&O x's 3, appropriate affect, intact judgment & insight Results - Laboratory Findings CBC and BMP: 04/03/24 18:54 04/03/24 18:54 PT/INR, D-dimer PT 11.2 sec (10.0-12.5) 04/04/24 02:55 INR 1.0 (<1.2) 04/04/24 02:55 D-Dimer 1.19 mg/L FEU (<0.60) H 04/04/24 00:53 Abnormal lab findings: Abnormal Labs 04/03/24 04/03/24 04/03/24 18:54 18:54 18:54 APTT D-Dimer 1.66 H Creatinine 1.17 H Glucose 222 H POC Glucose (mg/dL) Troponin I 0.071 H* Cholesterol LDL Cholesterol, Calc 04/03/24 04/04/24 04/04/24 23:21 00:53 00:53 APTT D-Dimer 1.19 H Creatinine Glucose POC Glucose (mg/dL) Troponin I 0.077 H* 0.068 H* Cholesterol LDL Cholesterol, Calc 04/04/24 04/04/24 04/04/24 02:55 02:55 03:39 APTT 73.8 H D-Dimer Creatinine Glucose POC Glucose (mg/dL) 423 H Troponin I Cholesterol 225.00 H LDL Cholesterol, Calc 155.0 H 04/04/24 04/04/24 04/04/24 08:41 10:43 11:33 APTT 38.9 H D-Dimer Creatinine Glucose POC Glucose (mg/dL) 399 H 329 H Troponin I Cholesterol LDL Cholesterol, Calc - Diagnostic Findings Chest x-ray: report reviewed, image reviewed CT scan - chest: report reviewed, image reviewed (Pending as noted above) Assessment and Plan Assessment: Altered mental status likely related to sepsis and right lower lobe pneumonia noted CT scan of the head negative Elevated D-dimer likely related to sepsis Right lower lobe pneumonia Sleep disordered breathing and sleep apnea Chronic persistent asthma mild to moderate intermittent type Chest pain and tightness, atypical chest pain, cardiovascular service following, patient is on IV heparin troponin elevated Kidney disease, monitor and trend urine output and renal functions closely Sleep disordered breathing and sleep apnea Plan: Will start patient on IV Rocephin and doxycycline On IV steroids Bronchodilators with inhaled corticosteroid aerosolized along with DuoNeb Continue CPAP machine from home Time with Patient: Greater than 30
[2024-04-04 17:06] LABS: Glucose,Whole Blood 297 mg/dL (70-110)
[2024-04-04] MEDS ORDERED: BUDESONIDE 0.5 MG/2 ML NEBU INHALATION SCH (20:00)
[2024-04-04 21:57] LABS: Glucose,Whole Blood 433 mg/dL (70-110)
[2024-04-04] MEDS: DOXYCYCLINE 100 MG CAP PO SCH (22:07)
[2024-04-04] MEDS: INSULIN DETEMIR (LEVEMIR) 100 UNIT/ML SYR SQ SCH (22:07)
[2024-04-04] MEDS: MONTELUKAST 10 MG TAB PO SCH (22:07)
[2024-04-04] MEDS: INSULIN ASPART (NovoLOG) 100 UNIT/ML VIAL SQ ONE (23:07)
[2024-04-05 07:56] LABS: Glucose,Whole Blood 254 mg/dL (70-110)
--- NOTE | 2024-04-05 08:52 | CA ---
Transthoracic Echo Report Name: Shalonda Smalls Age: 68 Gender: F : 1955 Exam Date: 04/04/2024 15:28 Exam Location: [facility] Ht (in): 60 Wt (lb): 190 Ordering Physician: Perla Rubalcava Attending/Referring Phys: [id number], [facility] [employer] Zoie Calvo RDCS Procedure CPT: Indications: LVF Cardiac Hx: Technical Quality: Technically difficult study Contrast 1: Definity Total Dose (mL): 2 Contrast 2: Total Dose (mL): MEASUREMENTS (Male / Female) Normal Values 2D ECHO LVOT Diameter 1.9 cm LA Volume 43.8 cm??? 18 - 58 / 22 - 52 cm??? LA Volume Index 22.4 cm???/m??? 16 - 28 cm???/m??? Ascending Aorta Diameter 3.2 cm DOPPLER AV Peak Velocity 157.1 cm/s AV Peak Gradient 9.9 mmHg AV Mean Velocity 110.5 cm/s AV Mean Gradient 5.4 mmHg AV Velocity Time Integral 31.8 cm LVOT Peak Velocity 115.8 cm/s LVOT Peak Gradient 5.4 mmHg LVOT Velocity Time Integral 22.8 cm LVOT Stroke Volume 65.6 cm??? LVOT Stroke Volume Index 35.9 ml/m??? LVOT Cardiac Index 2249.0 cm???/min???m??? AV Area Cont Eq vti 2.1 cm??? AV Area Cont Eq pk 2.1 cm??? MV Area PHT 3.5 cm??? Mitral E Point Velocity 68.1 cm/s Mitral A Point Velocity 95.9 cm/s Mitral E to A Ratio 0.7 MV Deceleration Time 219.2 ms TR Peak Velocity 228.5 cm/s TR Peak Gradient 20.9 mmHg Right Atrial Pressure 10.0 mmHg Pulmonary Artery Systolic Pressu 30.9 mmHg Right Ventricular Systolic Press 30.9 mmHg FINDINGS Left Ventricle Left ventricular ejection fraction is estimated at 55-60 %. Left ventricular cavity size normal. Left ventricular wall thickness normal. No obvious regional wall motion abnormalities. Right Ventricle Normal right ventricular size and function. Right ventricular systolic pressure within normal limits. Right Atrium Normal right atrial size. Left Atrium Normal left atrial size. Mitral Valve Mitral valve thickened. Mitral annular calcification. No evidence for mitral valve prolapse. No mitral stenosis. Mild mitral regurgitation. Aortic Valve Trileaflet aortic valve. Aortic valve sclerosis. No aortic valve stenosis or regurgitation. Tricuspid Valve Structurally normal tricuspid valve. No tricuspid stenosis. Mild tricuspid regurgitation. Pulmonic Valve Pulmonic valve not well visualized. No pulmonic stenosis. No pulmonic regurgitation. Pericardium No pericardial effusion. Prominent epicardial fat. Aorta Normal size aortic root and proximal ascending aorta. CONCLUSIONS Normal LV size and systolic function with mild concentric LVH. Mild mitral annular calcification and aortic sclerosis without restriction. There is mild mitral and tricuspid regurgitation. No significant pulmonary hypertension. No pericardial effusion. Probable fat pad Previewed by: Dr. Alirio Westfall MD (Electronically Signed) Final Date: 05 April 2024 08:52
[2024-04-05] MEDS: ASPIRIN 81 MG PO SCH (09:58)
--- NOTE | 2024-04-05 11:19 | P.PN ---
Subjective Progress Note Date: 04/05/24 Consult reason: chest pain History of present illness: This is a 68-year-old female patient seen in [address] Zeyad Chavez in the office with past medical history of diabetes, hypertension, hyperlipidemia, known to have nonobstructive coronary artery disease, history of DVT, obstructive sleep apnea on CPAP, chronic kidney disease stage II. We have been asked to evaluate the patient for unstable angina and elevated troponin. Patient gives history that for a couple of days she developed some chest pressure that was on the left upper area for at least 3 days. It is a pressure type sensation. Following that by about 1 day, patient developed problems with finding words and forgetting words, stuttering started yesterday. Blood pressure 135/71, heart rate 78, patient is seen today in the emergency center waiting for bed on the cardiac stepdown unit. Heparin drip has been started. EKG: Sinus rhythm with left axis deviation nonspecific ST changes Chest x-ray: No acute process CAT scan of the brain revealed no acute intracranial process. CT angio of the thorax and abdominal pelvis: No evidence of aortic dissection, aneurysm or occlusion. No evidence of pulmonary embolus. Increased interstitial lung markings most pronounced in the medial aspect of the right lower lobe correlate for chronic scarring versus sequela prior surgery. Mild cardiomegaly. Moderate to severe coronary atherosclerosis. Laboratory studies: CBC within normal limits. D-dimer 1.66. Sodium 140, potassium 3.7, BUN 17 creatinine 1.17. Troponin 0.071, 0.077, 0.068. Home cardiac medications: Aspirin 81 mg daily, atenolol 50 mg twice daily, Bumex 1 mg daily. Cardiac catheterization performed 07/18/2019 revealed mild nonobstructive coronary artery disease involving the LAD. 04/05 Patient is seen today and examined in the emergency center still waiting for a bed on the cardiac stepdown unit. Patient states that her speech is back to normal. She denies having any chest pain. She does have some achiness in her chest with movement. She does have tenderness in her chest wall. She has been maintained on IV heparin which will be discontinued today. Blood pressure 140/86, heart rate 66, pulse ox 96% on room air. Echocardiogram reveals EF of 55 to 60%, mild concentric left ventricular hypertrophy. Mild mitral annular calcification and aortic sclerosis without restriction. Mild mitral and tricuspid regurgitation. No significant pulmonary hypertension. No pericardial effusion. Probable fat pad. Physical examination: Gen: This is a 68-year-old female in no acute distress VS: reviewed HEENT: Head is atraumatic, normocephalic. Pupils equal, round. Sclerae is anicteric. NECK: Supple. No JVD. LUNGS: Clear to auscultation. No wheezes or rhonchi. No intercostal retractions. HEART: Regular rate and rhythm. No murmur. ABDOMEN: Soft No tenderness. EXTREMITIES: No pedal edema. No calf tenderness. NEUROLOGICAL: Patient is awake, alert and oriented x3. Assessment: Atypical chest pain, troponins have a flat pattern. Neurological symptoms with forgetting words, stuttering, resolved Elevated D-dimer, negative for PE History of nonobstructive coronary artery disease in the LAD on cardiac catheterization from 2019 Diabetes Hypertension Hyperlipidemia history of DVT Obstructive sleep apnea on CPAP Chronic kidney disease stage II Anaphylactic reaction to statins Plan: Continue patient on the following cardiac medications: Aspirin 81 mg daily, atenolol 50 mg twice daily, Bumex 1 mg daily oral, Farxiga 10 mg daily No statin due to anaphylactic reaction Discontinue heparin drip and discontinue Nitropaste May consider Lexiscan stress test on Tuesday if patient is still here. If patient is discharged before Tuesday, plan for follow-up in the office with Dr. Herring for outpatient Lexiscan stress test. Nurse practitioner note has been reviewed, I agree with documented findings and plan of care. Patient was seen and examined. Objective - Vital Signs Vital signs: Vital Signs Temp 97.9 F 04/05/24 07:18 Pulse 66 04/05/24 07:18 Resp 16 04/05/24 07:18 BP 140/86 04/05/24 07:18 Pulse Ox 96 04/05/24 07:18 FiO2 Intake & Output 04/04/24 04/05/24 04/05/24 18:59 06:59 18:59 Intake Total 64.732 131.762 Balance 64.732 131.762 Intake: Intake, IV Titration 64.732 131.762 Amount Heparin Sod,Pork in 0.45% 64.732 131.762 NaCl 25,000 unit In 0.45 % NaCl 1 250ml.bag @ 11. 63 UNITS/KG/HR 10.023 mls /hr IV .Q24H [facility] Rx#: [id number] - Labs CBC & Chem 7: 04/03/24 18:54 04/03/24 18:54 Labs: Abnormal Lab Results - Last 24 Hours (Table) 04/04/24 04/04/24 04/04/24 Range/Units 02:55 08:41 10:43 APTT 38.9 H (22.0-30.0) sec POC Glucose (mg/dL) 399 H (70-110) mg/dL Cholesterol 225.00 H (0.00-200.00) mg/dL LDL Cholesterol, Calc 155.0 H (0.0-131.0) mg/dL 04/04/24 04/04/24 04/04/24 Range/Units 11:33 17:05 17:48 APTT 72.5 H (22.0-30.0) sec POC Glucose (mg/dL) 329 H 297 H (70-110) mg/dL Cholesterol (0.00-200.00) mg/dL LDL Cholesterol, Calc (0.0-131.0) mg/dL 04/04/24 04/05/24 04/05/24 Range/Units 21:55 00:39 07:54 APTT 32.4 H (22.0-30.0) sec POC Glucose (mg/dL) 433 H 254 H (70-110) mg/dL Cholesterol (0.00-200.00) mg/dL LDL Cholesterol, Calc (0.0-131.0) mg/dL
[2024-04-05 12:40] LABS: Glucose,Whole Blood 265 mg/dL (70-110)
--- NOTE | 2024-04-05 13:37 | P.PN ---
Subjective Progress Note Date: 04/05/24 Principal diagnosis: Altered mental status likely related to sepsis and right lower lobe pneumonia noted CT scan of the head negative Elevated D-dimer likely related to sepsis Right lower lobe pneumonia Sleep disordered breathing and sleep apnea Chronic persistent asthma mild to moderate intermittent type Chest pain and tightness, atypical chest pain, cardiovascular service following, patient is on IV heparin troponin elevated Kidney disease, monitor and trend urine output and renal functions closely Sleep disordered breathing and sleep apnea April 05, 2024, patient seen eval examined during rounds still patient is in the ER holding area, patient has been using CPAP each night and as needed during the day, mental status improved more awake and alert. Afebrile with oxygen saturation 94%, blood pressure 160/82 saturation 94% on 2 L oxygen. Blood sugar in mid 200 range. Patient remains on bronchodilator inhaled corticosteroid broad-spectrum antibiotics and IV steroids tolerating well 68-year-old female who presented to the hospital with chest pain and left arm pain note that having some confusion as she cannot recall the name of her dog. Specific questioning denies any fever chills denies any headache photophobia lacrimation, denies any weakness in any part of the body, she has other active medical problems significant asthma COPD and sleep apnea patient has a CPAP machine as well. Chest x-ray unremarkable ECG normal sinus rhythm with right bu ndle branch block, CT scan of the chest no evidence of aortic dissection or aneurysm no PE, prominent interstitium seen right lower lobe cardiomegaly, diverticulosis. Acute intracranial process CT scan of the head labs include CBC within normal limit, chemistry BUN/creatinine 17/1.17, glucose was 222, troponin elevated 0.077, D-dimer is 1.66 down to 1.19 Past medical history significant for chronic asthmatic bronchitis, coronary artery disease, COPD, diabetes, DVT, dyslipidemia, hypertension hypertensive cardiovascular disease, obstructive sleep apnea chronic kidney disease Objective - Vital Signs Vital signs: Vital Signs Temp 97.9 F 04/05/24 07:18 Pulse 75 04/05/24 12:34 Resp 16 04/05/24 12:00 BP 160/82 04/05/24 12:00 Pulse Ox 94 L 04/05/24 12:00 FiO2 Intake & Output 04/04/24 04/05/24 04/05/24 18:59 06:59 18:59 Intake Total 64.732 131.762 Balance 64.732 131.762 Intake: Intake, IV Titration 64.732 131.762 Amount Heparin Sod,Pork in 0.45% 64.732 131.762 NaCl 25,000 unit In 0.45 % NaCl 1 250ml.bag @ 11. 63 UNITS/KG/HR 10.023 mls /hr IV .Q24H [facility]S [facility]CLUDE 234 BEDS AT [facility] Rx#: [id number] - Exam - Constitutional General appearance: average body habitus, cooperative, disheveled - EENT Eyes: EOMI, PERRLA Ears: bilateral: normal - Neck Carotids: bilateral: upstroke normal Thyroid: bilateral: normal size - Respiratory Respiratory: right: rales - Cardiovascular Rhythm: regular Heart sounds: normal: S1, S2 - Gastrointestinal General gastrointestinal: normal bowel sounds - Integumentary Integumentary: normal turgor - Neurologic Neurologic: CNII-XII intact - Musculoskeletal Musculoskeletal: generalized weakness - Psychiatric Psychiatric: A&O x's 3, appropriate affect, intact judgment & insight - Labs CBC & Chem 7: 04/03/24 18:54 04/03/24 18:54 Labs: Abnormal Lab Results - Last 24 Hours (Table) 04/04/24 04/04/24 04/04/24 Range/Units 17:05 17:48 21:55 APTT 72.5 H (22.0-30.0) sec POC Glucose (mg/dL) 297 H 433 H (70-110) mg/dL 04/05/24 04/05/24 04/05/24 Range/Units 00:39 07:54 12:38 APTT 32.4 H (22.0-30.0) sec POC Glucose (mg/dL) 254 H 265 H (70-110) mg/dL Assessment and Plan Assessment: Altered mental status likely related to sepsis and right lower lobe pneumonia noted CT scan of the head negative Elevated D-dimer likely related to sepsis Right lower lobe pneumonia Sleep disordered breathing and sleep apnea Chronic persistent asthma mild to moderate intermittent type Chest pain and tightness, atypical chest pain, cardiovascular service following, patient is on IV heparin troponin elevated Kidney disease, monitor and trend urine output and renal functions closely Sleep disordered breathing and sleep apnea Plan: Will continue patient on IV Rocephin and doxycycline On IV steroids, start tapering down next 24 to 48 hours Bronchodilators with inhaled corticosteroid aerosolized along with DuoNeb Continue CPAP machine from home Time with Patient: Greater than 30
[2024-04-05 17:08] LABS: Glucose,Whole Blood 269 mg/dL (70-110)
[2024-04-05 20:55] LABS: Glucose,Whole Blood 204 mg/dL (70-110)
[2024-04-06 06:18] LABS: Glucose,Whole Blood 294 mg/dL (70-110)
[2024-04-06] MEDS: amLODIPine 10 MG TAB PO SCH (10:43)
[2024-04-06 11:12] LABS: Glucose,Whole Blood 210 mg/dL (70-110)
--- NOTE | 2024-04-06 11:31 | P.PN ---
Subjective Progress Note Date: 04/06/24 Consult reason: chest pain History of present illness: This is a 68-year-old female patient seen in [address] Zeyad Chavez in the office with past medical history of diabetes, hypertension, hyperlipidemia, known to have nonobstructive coronary artery disease, history of DVT, obstructive sleep apnea on CPAP, chronic kidney disease stage II. We have been asked to evaluate the patient for unstable angina and elevated troponin. Patient gives history that for a couple of days she developed some chest pressure that was on the left upper area for at least 3 days. It is a pressure type sensation. Following that by about 1 day, patient developed problems with finding words and forgetting words, stuttering started yesterday. Blood pressure 135/71, heart rate 78, patient is seen today in the emergency center waiting for bed on the cardiac stepdown unit. Heparin drip has been started. EKG: Sinus rhythm with left axis deviation nonspecific ST changes Chest x-ray: No acute process CAT scan of the brain revealed no acute intracranial process. CT angio of the thorax and abdominal pelvis: No evidence of aortic dissection, aneurysm or occlusion. No evidence of pulmonary embolus. Increased interstitial lung markings most pronounced in the medial aspect of the right lower lobe correlate for chronic scarring versus sequela prior surgery. Mild cardiomegaly. Moderate to severe coronary atherosclerosis. Laboratory studies: CBC within normal limits. D-dimer 1.66. Sodium 140, potassium 3.7, BUN 17 creatinine 1.17. Troponin 0.071, 0.077, 0.068. Home cardiac medications: Aspirin 81 mg daily, atenolol 50 mg twice daily, Bumex 1 mg daily. Cardiac catheterization performed 07/18/2019 revealed mild nonobstructive coronary artery disease involving the LAD. 04/05 Patient is seen today and examined in the emergency center still waiting for a bed on the cardiac stepdown unit. Patient states that her speech is back to normal. She denies having any chest pain. She does have some achiness in her chest with movement. She does have tenderness in her chest wall. She has been maintained on IV heparin which will be discontinued today. Blood pressure 140/86, heart rate 66, pulse ox 96% on room air. Echocardiogram reveals EF of 55 to 60%, mild concentric left ventricular hypertrophy. Mild mitral annular calcification and aortic sclerosis without restriction. Mild mitral and tricuspid regurgitation. No significant pulmonary hypertension. No pericardial effusion. Probable fat pad. 04/06 Patient is seen today on the cardiac stepdown unit. She denies having any chest pain. She has been maintained on IV heparin which we will discontinue. No repeat lab work has been done which we will order stat today. Blood pressure readings have been elevated 164/89. Heart rate is in the 60s and 70s, pulse ox 99% on 3 L nasal cannula. Triglycerides 79.9, cholesterol 225, LDL 155. Physical examination: Gen: This is a 68-year-old female in no acute distress VS: reviewed HEENT: Head is atraumatic, normocephalic. Pupils equal, round. Sclerae is anicteric. NECK: Supple. No JVD. LUNGS: Clear to auscultation. No wheezes or rhonchi. No intercostal retractions. HEART: Regular rate and rhythm. No murmur. ABDOMEN: Soft No tenderness. EXTREMITIES: No pedal edema. No calf tenderness. NEUROLOGICAL: Patient is awake, alert and oriented x3. Assessment: Atypical chest pain, troponins have a flat pattern. Neurological symptoms with forgetting words, stuttering, resolved Elevated D-dimer, negative for PE History of nonobstructive coronary artery disease in the LAD on cardiac catheterization from 2019 Diabetes Hypertension, uncontrolled Hyperlipidemia history of DVT Obstructive sleep apnea on CPAP Chronic kidney disease stage II Anaphylactic reaction to statins Plan: Continue patient on the following cardiac medications: Aspirin 81 mg daily, atenolol 50 mg twice daily, Bumex 1 mg daily oral, Farxiga 10 mg daily No statin due to anaphylactic reaction Discontinue heparin drip and discontinue Nitropaste Stat BMP Add amlodipine for blood pressure control Consider adding GET inhibitor or ARB May consider Lexiscan stress test on Tuesday if patient is still here. If patient is discharged before Tuesday, plan for follow-up in the office with Dr. Herring for outpatient Lexiscan stress test. Nurse practitioner note has been reviewed, I agree with documented findings and plan of care. Patient was seen and examined. Objective - Vital Signs Vital signs: Vital Signs Temp 97.9 F 04/06/24 08:00 Pulse 72 04/06/24 11:08 Resp 18 04/06/24 11:07 BP 142/79 04/06/24 10:41 Pulse Ox 99 04/06/24 11:07 FiO2 Intake & Output 04/05/24 04/06/24 04/06/24 18:59 06:59 18:59 Intake Total 200 120 Balance 200 120 Weight 86.183 kg 87.2 kg Intake: IV 20 Invasive Line 1 10 Invasive Line 2 10 Oral 180 120 Other: Voiding Method Toilet Toilet Toilet # Voids 2 1 - Labs CBC & Chem 7: 04/03/24 18:54 04/03/24 18:54 Labs: Abnormal Lab Results - Last 24 Hours (Table) 04/05/24 04/05/24 04/05/24 Range/Units 12:38 17:07 20:52 POC Glucose (mg/dL) 265 H 269 H 204 H (70-110) mg/dL 04/06/24 04/06/24 Range/Units 06:13 11:10 POC Glucose (mg/dL) 294 H 210 H (70-110) mg/dL
[2024-04-06 11:34] LABS: African American GFR (CKD) 52 (>60 ml/min/1.73 sqM); Anion Gap 9 mmol/L; Blood Urea Nitrogen 31 mg/dL (7-17); Carbon Dioxide 23 mmol/L (22-30); Chloride 109 mmol/L (98-107); Glucose 202 mg/dL (74-99); Non-African American GFR(CKD) 45 (>60 ml/min/1.73 sqM); Potassium 4.1 mmol/L (3.5-5.1); Sodium 141 mmol/L (137-145)
[2024-04-06 16:21] LABS: Glucose,Whole Blood 334 mg/dL (70-110)
[2024-04-06 20:12] LABS: Glucose,Whole Blood 293 mg/dL (70-110)
--- NOTE | 2024-04-07 02:02 | PN ---
PROGRESS NOTE SUBJECTIVE: A 68-year-old white female, right lower lobe pneumonia, on IV antibiotics, azithromycin, DuoNeb, Bumex for CHF, acute on chronic diastolic, Bentyl for IBS. She is improving greatly. Sugars are a little high due to steroids. We will cut down her steroids. She remains on IV antibiotics. Prognosis guarded. Condition stable. OBJECTIVE: HEMATOLOGY: Negative Homans. GI: Soft. NEUROLOGIC: Cranial nerves intact. PLAN: Please see further orders. Prognosis guarded. Ambulate as tolerated. MMODL / IJN: [id number] /
[2024-04-07 06:17] LABS: Glucose,Whole Blood 266 mg/dL (70-110)
[2024-04-07] MEDS: predniSONE 20 MG TAB PO SCH (08:53)
[2024-04-07 11:09] LABS: Glucose,Whole Blood 251 mg/dL (70-110)
--- NOTE | 2024-04-07 12:33 | P.PN ---
Subjective Progress Note Date: 04/07/24 This is Kanu Payton NP, I'm dictating on behalf of Dr. Herring's H&P and A&P. Patient was interviewed and examined. Patient is a pleasant 68-year-old female who presented to the hospital with chest pain and elevated troponins. Patient reports that she is experiencing chest pain this morning, however is noted lying comfortably in bed reading a book. She otherwise denies any other complaints. GENERAL: Well-appearing, well-nourished and in no acute distress. NECK: Supple without JVD or thyromegaly. LUNGS: Breath sounds clear to auscultation bilaterally. Respiration equal and unlabored. No wheezes, rales or rhonchi. HEART: Regular rate and rhythm without murmurs, rubs or gallops. S1 and S2 h eard. EXTREMITIES: Normal range of motion, no edema. No clubbing or cyanosis. Peripheral pulses intact and strong. VITALS: Temp 98, pulse 68, respirations 18, blood pressure 138/68, O2 saturation 100% on room air TELEMETRY: Sinus mechanism LABS: Sodium 141, potassium 4.1, BUN 31, creatinine 1.24, calcium 9 IMPRESSION: 1. Atypical chest pain, flat troponins 2. Elevated D-dimer, negative for PE 3. History of nonobstructive coronary artery disease in the LAD 4. Diabetes 5. Uncontrolled hypertension 6. Hyperlipidemia 7. Obstructive sleep apnea 8. CKD stage II 9. Anaphylactic reaction to statins PLAN: Continue aspirin, atenolol, Bumex, and Farxiga. Continue amlodipine. Will schedule for Lexiscan stress test on Tuesday. Further recommendations based on patient's clinical course. Objective - Vital Signs Vital signs: Vital Signs Temp 98.0 F 04/07/24 12:00 Pulse 75 04/07/24 12:06 Resp 18 04/07/24 12:00 BP 138/68 04/07/24 12:00 Pulse Ox 100 04/07/24 12:00 FiO2 Intake & Output 04/06/24 04/07/24 04/07/24 18:59 06:59 18:59 Intake Total 740 120 Balance 740 120 Weight 87.2 kg Intake: IV 20 Invasive Line 1 10 Invasive Line 2 10 Oral 720 120 Other: Voiding Method Toilet Toilet Toilet # Voids 2 1 - Labs CBC & Chem 7: 04/03/24 18:54 04/06/24 10:34 Labs: Abnormal Lab Results - Last 24 Hours (Table) 04/06/24 04/06/24 04/07/24 Range/Units 16:14 20:08 06:14 POC Glucose (mg/dL) 334 H 293 H 266 H (70-110) mg/dL 04/07/24 Range/Units 11:07 POC Glucose (mg/dL) 251 H (70-110) mg/dL Microbiology - Last 24 Hours (Table) 04/05/24 09:00 Urine Culture - Final Urine,Voided Yeast
[2024-04-07 16:13] LABS: Glucose,Whole Blood 267 mg/dL (70-110)
[2024-04-07 20:19] LABS: Glucose,Whole Blood 238 mg/dL (70-110)
--- NOTE | 2024-04-07 22:20 | PN ---
PROGRESS NOTE SUBJECTIVE: The patient is improving with her pneumonia. breathing comfortably at 100% on room air, temperature 98, pulse 68, respirations 16, blood pressure . Sugars still 200s and 300s, switched to oral prednisone sugars going to high. OBJECTIVE: LUNGS: Scattered wheeze, rhonchi. PSYCH: Fair mood and affect. CARDIOVASCULAR: S1 and S2. ABDOMEN: Soft. HEMATOLOGY: Negative Homans. Echocardiogram was reviewed. 55% to 60% ejection fraction. Continue current treatment. Diuresis updrafts. Prognosis guarded. Possible discharge home in the next 24 to 48 hours. MMODL / IJN: [id number] /
[2024-04-08 06:16] LABS: Glucose,Whole Blood 164 mg/dL (70-110)
[2024-04-08] MEDS ORDERED: NITROGLYCERIN SL TABS 0.4 MG TAB SUBLINGUAL PRN (09:33)
[2024-04-08] MEDS ORDERED: ATORVASTATIN 80 MG TAB PO STA (09:33)
[2024-04-08] MEDS: ALPRAZolam 0.5 MG TAB PO PRN (10:42)
[2024-04-08] MEDS: FAMOTIDINE 20 MG TAB PO SCH (11:19)
--- NOTE | 2024-04-08 11:52 | P.PN ---
Subjective Progress Note Date: 04/08/24 This is Kanu Payton NP, I'm dictating on behalf of Dr. Herrign's H&P and A&P. Patient was interviewed and examined. Patient is a pleasant 68-year-old female who presented to the hospital with unstable angina and elevated troponins. Patient feels okay today. She is denying chest pain, heart palpitations, dizziness, near syncope, or lightheadedness. We were advised that the patient had a recent Lexiscan stress test in September of this year, which demonstrated possibly reversible apical ischemia. Due to these findings, a repeat Lexiscan is not needed. We will move forward and schedule the patient for a cardiac catheterization. Do not give order set atorvastatin due to anaphylactic reaction. Patient will need the precontrast protocol due to reactions to contrast dye prior to the procedure victorina orrow. GENERAL: Well-appearing, well-nourished and in no acute distress. NECK: Supple without JVD or thyromegaly. LUNGS: Breath sounds clear to auscultation bilaterally. Respiration equal and unlabored. No wheezes, rales or rhonchi. HEART: Regular rate and rhythm without murmurs, rubs or gallops. S1 and S2 heard. EXTREMITIES: Normal range of motion, no edema. No clubbing or cyanosis. Periph eral pulses intact and strong. VITALS: Temp 98.1, pulse 66, respirations 16, blood pressure 151/85, O2 saturation 90% on 3 L TELEMETRY: Sinus mechanism LABS: No new labs since 04/06/2024 IMPRESSION: 1. Atypical chest pain, flat troponins 2. Elevated D-dimer, negative for PE 3. History of nonobstructive coronary artery disease in the LAD 4. Diabetes 5. Uncontrolled hypertension 6. Hyperlipidemia 7. Obstructive sleep apnea 8. CKD stage II 9. Anaphylactic reaction to statins PLAN: Continue aspirin, atenolol, Bumex, and Farxiga. Continue amlodipine. Discontinue Lexiscan, scheduled for cardiac catheterization tomorrow. We were advised that the patient had a Lexiscan stress in September of this year that demonstrated a small amount of ischemia in the cardiac apex. Further recommendations based on patient's clinical course. Objective - Vital Signs Vital signs: Vital Signs Temp 97.8 F 04/08/24 10:00 Pulse 66 04/08/24 10:00 Resp 16 04/08/24 10:00 BP 151/85 04/08/24 10:00 Pulse Ox 98 04/08/24 10:00 FiO2 Intake & Output 04/07/24 04/08/24 04/08/24 18:59 06:59 18:59 Intake Total 360 Balance 360 Weight 86.7 kg Intake: Oral 360 Other: Voiding Method Toilet Toilet # Voids 4 1 2 - Labs CBC & Chem 7: 04/03/24 18:54 04/06/24 10:34 Labs: Abnormal Lab Results - Last 24 Hours (Table) 04/07/24 04/07/24 04/08/24 Range/Units 16:08 20:17 06:08 POC Glucose (mg/dL) 267 H 238 H 164 H (70-110) mg/dL Microbiology - Last 24 Hours (Table) 04/05/24 09:00 Urine Culture - Final Urine,Voided Armida glabrata
[2024-04-08 11:56] LABS: Glucose,Whole Blood 166 mg/dL (70-110)
--- NOTE | 2024-04-08 12:03 | P.PN ---
Subjective Progress Note Date: 04/08/24 Principal diagnosis: Altered mental status likely related to sepsis and right lower lobe pneumonia noted CT scan of the head negative Elevated D-dimer likely related to sepsis Right lower lobe pneumonia Sleep disordered breathing and sleep apnea Chronic persistent asthma mild to moderate intermittent type Chest pain and tightness, atypical chest pain, cardiovascular service following, patient is on IV heparin troponin elevated Kidney disease, monitor and trend urine output and renal functions closely Sleep disordered breathing and sleep apnea April 08, 2024, patient seen eval examined during rounds labs reviewed medications with care plan discussed, respiratory status overall stable however continue to require supplemental oxygen, patient continue to use old CPAP machine. Patient has been evaluated by cardiovascular service being planned for cardiac cath angiogram tomorrow. Patient has nasal stuffiness congestion, sinus tenderness, on IV Rocephin and doxycycline in addition patient has 2 infected teeth on the left side, will continue antibiotics along with oral prednisone. Patient is on IV heparin as well April 05, 2024, patient seen eval examined during rounds still patient is in the ER holding area, patient has been using CPAP each night and as needed during the day, mental status improved more awake and alert. Afebrile with oxygen saturation 94%, blood pressure 160/82 saturation 94% on 2 L oxygen. Blood sugar in mid 200 range. Patient remains on bronchodilator inhaled corticosteroid broad-spectrum antibiotics and IV steroids tolerating well 68-year-old female who presented to the hospital with chest pain and left arm pain note that having some confusion as she cannot recall the name of her dog. Specific questioning denies any fever chills denies any headache photophobia lacrimation, denies any weakness in any part of the body, she has other active medical problems significant asthma COPD and sleep apnea patient has a CPAP machine as well. Chest x-ray unremarkable ECG normal sinus rhythm with right bundle branch block, CT scan of the chest no evidence of aortic dissection or aneurysm no PE, prominent interstitium seen right lower lobe cardiomegaly, diverticulosis. Acute intracranial process CT scan of the head labs include CBC within normal limit, chemistry BUN/creatinine 17/1.17, glucose was 222, troponin elevated 0.077, D-dimer is 1.66 down to 1.19 Past medical history significant for chronic asthmatic bronchitis, coronary artery disease, COPD, diabetes, DVT, dyslipidemia, hypertension hypertensive cardiovascular disease, obstructive sleep apnea chronic kidney disease Objective - Vital Signs Vital signs: Vital Signs Temp 97.8 F 04/08/24 10:00 Pulse 66 04/08/24 10:00 Resp 16 04/08/24 10:00 BP 151/85 04/08/24 10:00 Pulse Ox 98 04/08/24 10:00 FiO2 Intake & Output 04/07/24 04/08/24 04/08/24 18:59 06:59 18:59 Intake Total 360 Balance 360 Weight 86.7 kg Intake: Oral 360 Other: Voiding Method Toilet Toilet # Voids 4 1 2 - Exam - Constitutional General appearance: average body habitus, cooperative, disheveled - EENT Eyes: EOMI, PERRLA Ears: bilateral: normal, positive tenderness left maxillary area and swelling left jaw - Neck Carotids: bilateral: upstroke normal Thyroid: bilateral: normal size - Respiratory Respiratory: right: rales - Cardiovascular Rhythm: regular Heart sounds: normal: S1, S2 - Gastrointestinal General gastrointestinal: normal bowel sounds - Integumentary Integumentary: normal turgor - Neurologic Neurologic: CNII-XII intact - Musculoskeletal Musculoskeletal: generalized weakness - Psychiatric Psychiatric: A&O x's 3, appropriate affect, intact judgment & insight - Labs CBC & Chem 7: 04/03/24 18:54 04/06/24 10:34 Labs: Abnormal Lab Results - Last 24 Hours (Table) 04/07/24 04/07/24 04/08/24 Range/Units 16:08 20:17 06:08 POC Glucose (mg/dL) 267 H 238 H 164 H (70-110) mg/dL 04/08/24 Range/Units 11:50 POC Glucose (mg/dL) 166 H (70-110) mg/dL Microbiology - Last 24 Hours (Table) 04/05/24 09:00 Urine Culture - Final Urine,Voided Armida glabrata Assessment and Plan Assessment: Acute on chronic sinusitis due to infected teeth, on broad-spectrum antibiotics likely will need extraction Unstable angina/coronary artery disease, on IV heparin cardiovascular services are following plan for cardiac catheter angiogram tomorrow Altered mental status likely related to sepsis and right lower lobe pneumonia noted CT scan of the head negative Elevated D-dimer likely related to sepsis Right lower lobe pneumonia Sleep disordered breathing and sleep apnea Chronic persistent asthma mild to moderate intermittent type Kidney disease, monitor and trend urine output and renal functions closely Sleep disordered breathing and sleep apnea Plan: Will continue patient on IV Rocephin and doxycycline On oral steroids, Bronchodilators with inhaled corticosteroid aerosolized along with DuoNeb Continue CPAP machine from home, will arrange new CPAP machine on outpatient basis patient likely will need new polysomnogram we will arrange it on outpatient basis as well Follow-up on cardiac cath angiogram results and reports Patient will likely need extraction Time with Patient: Greater than 30
[2024-04-08] MEDS: LORATADINE 10 MG TAB PO SCH (12:40)
[2024-04-08 16:38] LABS: Glucose,Whole Blood 289 mg/dL (70-110)
[2024-04-08 17:37] LABS: Basophils % (A) 0 %; Eosinophils # (A) 0.1 k/uL (0-0.7); Eosinophils % (A) 1 %; HGB 13.9 gm/dL (11.4-16.0); Hypochromasia Slight; Lymphocytes # (A) 1.3 k/uL (1.0-4.8); Lymphocytes % (A) 18 %; MCH 31.2 pg (25.0-35.0); MCV 94.6 fL (80.0-100.0); Mean Platelet Volume 8.6; Monocytes # (A) 0.3 k/uL (0-1.0); Monocytes % (A) 4 %; Neutrophils # (A) 5.5 k/uL (1.3-7.7); Neutrophils % (A) 77 %; Platelet Count 198 k/uL (150-450); RBC 4.44 m/uL (3.80-5.40); RDW 14.3 % (11.5-15.5); WBC 7.1 k/uL (3.8-10.6)
[2024-04-08 17:56] LABS: ALT 16 U/L (4-34); AST 20 U/L (14-36); African American GFR (CKD) 56 (>60 ml/min/1.73 sqM); Albumin 3.9 g/dL (3.5-5.0); Alkaline Phosphatase 74 U/L (38-126); Anion Gap 10 mmol/L; Blood Urea Nitrogen 33 mg/dL (7-17); Carbon Dioxide 20 mmol/L (22-30); Chloride 107 mmol/L (98-107); Glucose 311 mg/dL (74-99); Magnesium 1.9 mg/dL (1.6-2.3); Non-African American GFR(CKD) 49 (>60 ml/min/1.73 sqM); Potassium 4.5 mmol/L (3.5-5.1); Sodium 137 mmol/L (137-145); Total Bilirubin 0.5 mg/dL (0.2-1.3); Total Protein 6.4 g/dL (6.3-8.2)
[2024-04-08 20:09] LABS: Glucose,Whole Blood 229 mg/dL (70-110)
[2024-04-08] MEDS: AMOXIC-POT CLAV 875-125MG 1 EACH TAB PO SCH (21:36)
--- NOTE | 2024-04-09 02:44 | PN ---
PROGRESS NOTE A 68-year-old white female, came in with right lower lobe pneumonia, COPD exacerbation, tracheobronchitis, cough, congestion, and wheezing. PHYSICAL EXAMINATION: Lungs: Scattered rhonchi and wheeze. HEMATOLOGY: Negative Homans. GI: Soft. NEUROLOGIC: Cranial nerves intact. PSYCH: Fair mood and affect. Right lower lobe pneumonia, COPD exacerbation, multiple medical problems, most likely she can be possibly discharged home in the next 24 hours to go home. Follow up as an outpatient. MMODL / IJN: [id number] /
[2024-04-09] MEDS: SODIUM CHLORIDE 0.9% 1,000 ML IV SCH ×2 (04:22→19:43)
[2024-04-09] MEDS ORDERED: AMINOPHYLLINE 500 MG/20 ML VIAL IV PRN (06:00)
[2024-04-09] MEDS ORDERED: REGADENOSON 0.4 MG/5 ML SYRINGE IV PRN (06:00)
[2024-04-09] MEDS ORDERED: CAFFEINE CITRATE 60 MG/3 ML VIAL IV PRN (06:00)
[2024-04-09 06:12] LABS: Glucose,Whole Blood 173 mg/dL (70-110)
[2024-04-09] MEDS: ASPIRIN 325 MG TAB PO ONE (06:14)
[2024-04-09] MEDS ORDERED: HEPARIN SODIUM,PORCINE 10,000 UNIT in SODIUM CHLORIDE 0.9% 1,000 ML IRRIGATION PRN (07:00)
[2024-04-09] MEDS ORDERED: HEPARIN SODIUM,PORCINE (1 ML) 2,500 UNIT in SODIUM CHLORIDE 0.9% 250 ML IRRIGATION PRN (07:00)
[2024-04-09 08:47] LABS: HCT 37.1 % (34.0-46.0); HGB 11.9 gm/dL (11.4-16.0); MCH 29.9 pg (25.0-35.0); MCHC 32.2 g/dL (31.0-37.0); MCV 92.7 fL (80.0-100.0); Mean Platelet Volume 8.4; Platelet Count 164 k/uL (150-450); RDW 14.1 % (11.5-15.5)
[2024-04-09] MEDS: methylPREDNISolone 4 MG TAB TAPER PO SCH (08:47)
[2024-04-09 08:57] LABS: African American GFR (CKD) 51 (>60 ml/min/1.73 sqM); Anion Gap 2 mmol/L; Blood Urea Nitrogen 34 mg/dL (7-17); Calcium 8.7 mg/dL (8.4-10.2); Carbon Dioxide 27 mmol/L (22-30); Chloride 109 mmol/L (98-107); Glucose 180 mg/dL (74-99); Non-African American GFR(CKD) 44 (>60 ml/min/1.73 sqM); Potassium 4.3 mmol/L (3.5-5.1); Sodium 138 mmol/L (137-145)
[2024-04-09 11:11] LABS: Glucose,Whole Blood 181 mg/dL (70-110)
[2024-04-09 16:22] LABS: Glucose,Whole Blood 185 mg/dL (70-110)
--- NOTE | 2024-04-09 17:14 | P.PN ---
Subjective Progress Note Date: 04/09/24 Principal diagnosis: Altered mental status likely related to sepsis and right lower lobe pneumonia noted CT scan of the head negative Elevated D-dimer likely related to sepsis Right lower lobe pneumonia Sleep disordered breathing and sleep apnea Chronic persistent asthma mild to moderate intermittent type Chest pain and tightness, atypical chest pain, cardiovascular service following, patient is on IV heparin troponin elevated Kidney disease, monitor and trend urine output and renal functions closely Sleep disordered breathing and sleep apnea April 09, 2024, seen evaluate examined during rounds labs reviewed medications reviewed, facial congestion as well as cough improved on IV antibiotics and bronchodilators, patient is awaiting for cardiac catheter angiogram April 08, 2024, patient seen eval examined during rounds labs reviewed medications with care plan discussed, respiratory status overall stable however continue to require supplemental oxygen, patient continue to use old CPAP machine. Patient has been evaluated by cardiovascular service being planned for cardiac cath angiogram tomorrow. Patient has nasal stuffiness congestion, sinus tenderness, on IV Rocephin and doxycycline in addition patient has 2 infected teeth on the left side, will continue antibiotics along with oral prednisone. Patient is on IV heparin as well April 05, 2024, patient seen eval examined during rounds still patient is in the ER holding area, patient has been using CPAP each night and as needed during the day, mental status improved more awake and alert. Afebrile with oxygen saturation 94%, blood pressure 160/82 saturation 94% on 2 L oxygen. Blood sugar in mid 200 range. Patient remains on bronchodilator inhaled corticosteroid broad-spectrum antibiotics and IV steroids tolerating well 68-year-old female who presented to the hospital with chest pain and left arm pain note that having some confusion as she cannot recall the name of her dog. Specific questioning denies any fever chills denies any headache photophobia lacrimation, denies any weakness in any part of the body, she has other active medical problems significant asthma COPD and sleep apnea patient has a CPAP machine as well. Chest x-ray unremarkable ECG normal sinus rhythm with right bundle branch block, CT scan of the chest no evidence of aortic dissection or aneurysm no PE, prominent interstitium seen right lower lobe cardiomegaly, diverticulosis. Acute intracranial process CT scan of the head labs include CBC within normal limit, chemistry BUN/creatinine 17/1.17, glucose was 222, troponin elevated 0.077, D-dimer is 1.66 down to 1.19 Past medical history significant for chronic asthmatic bronchitis, coronary artery disease, COPD, diabetes, DVT, dyslipidemia, hypertension hypertensive cardiovascular disease, obstructive sleep apnea chronic kidney disease Objective - Vital Signs Vital signs: Vital Signs Temp 97.6 F 04/09/24 15:23 Pulse 72 04/09/24 15:27 Resp 17 04/09/24 15:23 BP 120/72 04/09/24 15:23 Pulse Ox 97 04/09/24 15:23 FiO2 Intake & Output 04/08/24 04/09/24 04/09/24 18:59 06:59 18:59 Intake Total 720 Balance 720 Weight 86.18 kg Intake: Oral 720 Other: Voiding Method Toilet Toilet Toilet # Voids 3 1 1 - Exam - Constitutional General appearance: average body habitus, cooperative, disheveled - EENT Eyes: EOMI, PERRLA Ears: bilateral: normal, positive tenderness left maxillary area and swelling left jaw - Neck Carotids: bilateral: upstroke normal Thyroid: bilateral: normal size - Respiratory Respiratory: right: rales - Cardiovascular Rhythm: regular Heart sounds: normal: S1, S2 - Gastrointestinal General gastrointestinal: normal bowel sounds - Integumentary Integumentary: normal turgor - Neurologic Neurologic: CNII-XII intact - Musculoskeletal Musculoskeletal: generalized weakness - Psychiatric Psychiatric: A&O x's 3, appropriate affect, intact judgment & insight - Labs CBC & Chem 7: 04/09/24 08:27 04/09/24 08:27 Labs: Abnormal Lab Results - Last 24 Hours (Table) 04/08/24 04/08/24 04/09/24 Range/Units 17:23 20:07 06:11 Chloride (98-107) mmol/L Carbon Dioxide 20 L (22-30) mmol/L BUN 33 H (7-17) mg/dL Creatinine 1.16 H (0.52-1.04) mg/dL Glucose 311 H (74-99) mg/dL POC Glucose (mg/dL) 229 H 173 H (70-110) mg/dL 04/09/24 04/09/24 04/09/24 Range/Units 08:27 11:10 16:16 Chloride 109 H (98-107) mmol/L Carbon Dioxide (22-30) mmol/L BUN 34 H (7-17) mg/dL Creatinine 1.26 H (0.52-1.04) mg/dL Glucose 180 H (74-99) mg/dL POC Glucose (mg/dL) 181 H 185 H (70-110) mg/dL Assessment and Plan Assessment: Acute on chronic sinusitis due to infected teeth, on broad-spectrum antibiotics likely will need extraction, swelling has improved we will continue Unstable angina/coronary artery disease, on IV heparin cardiovascular services are following plan for cardiac catheter angiogram later on today Altered mental status likely related to sepsis and right lower lobe pneumonia noted CT scan of the head negative, improved significantly Elevated D-dimer likely related to sepsis Right lower lobe pneumonia Sleep disordered breathing and sleep apnea Chronic persistent asthma mild to moderate intermittent type Kidney disease, monitor and trend urine output and renal functions closely Sleep disordered breathing and sleep apnea Plan: Will continue patient on IV Rocephin and doxycycline On oral steroids, Bronchodilators with inhaled corticosteroid aerosolized along with DuoNeb Continue CPAP machine from home, will arrange new CPAP machine on outpatient basis patient likely will need new polysomnogram we will arrange it on outpatient basis as well Follow-up on cardiac cath angiogram results and reports Patient will likely need extraction Time with Patient: Greater than 30
[2024-04-09] MEDS: methylPREDNISolone SOD SUCCI 125 MG/2 ML VIAL IV STA (17:18)
[2024-04-09] MEDS: IV FLUID CONTINUATION 1,000 ML IV ONE (17:40)
[2024-04-09] MEDS: MIDAZOLAM 2 MG/2 ML VIAL IVP ONE (18:08)
[2024-04-09] MEDS: LIDOCAINE 1% INJ 10MG/ML (20 ML MDV) SQ ONE (18:15)
[2024-04-09] MEDS: VERAPAMIL SYRINGE (5 MG/10 ML) INTRAARTER ONE (18:16)
[2024-04-09] MEDS: HEPARIN SODIUM 1,000 UN/ML (10ML VL) IV ONE (18:18)
[2024-04-09] MEDS: MORPHINE SULFATE 4 MG/ML SYRINGE IVP ONE (18:23)
[2024-04-09] MEDS: IOPAMIDOL-370 200ML BTL INJ ONE (18:28)
[2024-04-09] MEDS ORDERED: RX INFO: IV CONTRAST WAS GIVEN 1 EACH MISC MISCELLANE PRN (18:28)
[2024-04-09] MEDS: HEPARIN SODIUM,PORCINE 10,000 UNIT in SODIUM CHLORIDE 0.9% 1,000 ML IRRIGATION ONE (18:29)
[2024-04-09] MEDS: HEPARIN SODIUM,PORCINE (1 ML) 2,500 UNIT in SODIUM CHLORIDE 0.9% 250 ML IRRIGATION ONE (18:29)
[2024-04-09] MEDS ORDERED: HEPARIN SODIUM 1,000 UN/ML (10ML VL) IV PRN (18:34)
--- NOTE | 2024-04-09 18:34 | P.PCN ---
Date of Procedure: 04/09/24 Operative Findings: CARDIAC CATHETERIZATION PERFORMING PHYSICIAN: Manuel Agosto MD, RPVI PROCEDURE PERFORMED: 1. Selective right and left coronary angiogram 2. Left heart catheterization 3. Ultrasound-guided access of the right radial artery INDICATION: Acute non-ST ovation myocardial infarction COMPLICATION: None APPROACH: Right radial artery LEVEL OF SEDATION: Moderate with a sedation length of 10 minutes PROCEDURE DESCRIPTION: After obtaining an informed consent, the patient was brought to cardiac terrazzo laborer. Local anesthesia was performed using lidocaine subcutaneously. The right radial artery was cannulated using Seldinger technique, the guidewire passed easily, following that we advanced a 5-Kyrgyz sheath dilator assembly, the wire and dilator were removed and sheath was flushed. Following that, 2 mg of verapamil along with 5000 unit heparin were given. Selective right and left coronary angiogram using a 6-Kyrgyz JR4 and JL 3.5 catheters. Following that we did left heart catheterization using 6-Kyrgyz pigtail catheter. The procedure was completed there was no complication. SELECTIVE CORONARY ANGIOGRAM: The right coronary artery: Large-caliber vessel and a dominant vessel with mild disease only with no evidence of high-grade stenosis identified Left main: Has eccentric calcified plaque distally involving the proximal LCx and proximal LAD and the plaque appears to be in the range of 80% The left circumflex: Calcified with ostial disease which is the extension of the plaque in the left main and the disease appears to be in the range of 80% The left anterior descending artery: Has ostial disease also with the extension of the plaque from the left main and that lesion appears to be in the range of 70 to 80%. The mid LAD has mild to moderate diffuse disease with no evidence of high-grade stenosis identified HEMODYNAMICS: LVEDP was about 8 mmHg with no significant gradient across aortic valve CONCLUSION: 1. Critical disease involving the distal left main and ostial LCx and LAD with an eccentric plaque appears to be calcified approaching almost 80% 2. Normal left-sided filling pressure POSTPROCEDURE MANAGEMENT: Consult surgery further evaluation of CABG
[2024-04-09 20:05] LABS: Basophils % (A) 0 %; Eosinophils % (A) 0 %; HCT 38.8 % (34.0-46.0); HGB 12.5 gm/dL (11.4-16.0); Lymphocytes # (A) 0.9 k/uL (1.0-4.8); Lymphocytes % (A) 12 %; MCH 29.9 pg (25.0-35.0); MCHC 32.1 g/dL (31.0-37.0); MCV 93.1 fL (80.0-100.0); Mean Platelet Volume 8.9; Monocytes # (A) 0.2 k/uL (0-1.0); Monocytes % (A) 3 %; Neutrophils % (A) 84 %; Platelet Count 204 k/uL (150-450); RBC 4.17 m/uL (3.80-5.40); RDW 14.1 % (11.5-15.5); WBC 7.1 k/uL (3.8-10.6)
[2024-04-09 20:09] LABS: Glucose,Whole Blood 315 mg/dL (70-110)
[2024-04-09 20:13] LABS: INR 1.2 (<1.2); Partial Thromboplastin Time 92.3 sec (22.0-30.0); Prothrombin Time 12.3 sec (10.0-12.5)
[2024-04-10] MEDS: HEPARIN SODIUM 1,000 UN/ML (10ML VL) IV ONE (01:54)
[2024-04-10] MEDS: HEPARIN SOD,PORK IN 0.45% NACL 25,000 UNIT in 0.45% NACL 1 250ML.BAG IV SCH (01:55)
[2024-04-10 06:27] LABS: Glucose,Whole Blood 210 mg/dL (70-110)
[2024-04-10 06:44] LABS: Basophils % (A) 0 %; Eosinophils % (A) 0 %; HCT 36.7 % (34.0-46.0); HGB 11.8 gm/dL (11.4-16.0); Hypochromasia Slight; Lymphocytes # (A) 0.9 k/uL (1.0-4.8); Lymphocytes % (A) 13 %; MCH 30.2 pg (25.0-35.0); MCHC 32.1 g/dL (31.0-37.0); MCV 94.1 fL (80.0-100.0); Monocytes # (A) 0.3 k/uL (0-1.0); Monocytes % (A) 4 %; Neutrophils # (A) 5.8 k/uL (1.3-7.7); Neutrophils % (A) 82 %; Platelet Count 166 k/uL (150-450); WBC 7.1 k/uL (3.8-10.6)
[2024-04-10 06:52] LABS: INR 1.1 (<1.2); Prothrombin Time 12.2 sec (10.0-12.5)
[2024-04-10] MEDS: ASPIRIN 81 MG PO SCH (08:22)
[2024-04-10] MEDS: EZETIMIBE 10 MG TAB PO SCH (08:22)
--- NOTE | 2024-04-10 09:48 | CDI ---
Documentation Clarification Form Date: 04/10/2024 09:06:42 AM From: Aliya Castorena RN, CCDS Phone: [phone] Admit Date: 04/03/2024 09:34:00 PM Patient Name: Shalonda Smalls Visit Number: [id number] Discharge Date: ATTENTION: The Clinical Documentation Specialists (CDI) and [facility] Coding Staff appreciate your assistance in clarifying documentation. Please respond to the clarification below the line at the bottom and electronically sign. The CDI & [facility] Coding staff will review the response and follow-up if needed. Please note: Queries are made part of the Legal Health Record. If you have any questions, please contact the author of this message via ITS. Doctor: Tavo Lisa The patients principal diagnosis, the diagnosis that was chiefly responsible for the admission - has not been clearly identified and clarification is requested. The patient presented with chest pain and shortness of breath. History/Risk factors: Asthma, CAD, COPD, DM, DVT, GERD, HLD, renal disease and sleep apnea. Clinical Indicators: 04/03-04/10 WBC: 6.7-6.0-7.1 04/03-04/04 Troponins: 0.071-0.077-0.068 04/03-04/04 D-dimer: 1.66-1.19 04/03 CXR: No acute cardiopulmonary disease/process 04/03 CTA thoracic/abdominal/pelvic/aorta: no dissection, no PE, mild cardiomegaly, colonic diverticulosis 04/[address]: no acute process 04/03 EKG: SR, septal CT, probably old 04/04 Echo: Normal LV size and systolic function with mild concentric LVH 04/03 Admission Vital Signs: Temp 98.6, HR 74, RR 20, BP 139/85, pox 94% 04/10 Vital Signs: Temp 97.9, HR 72, RR 18, BP 130/68, pox 96% H&P: "Cardiology consult for non-STEMI, altered mental status." 04/04 Cardiology consult: "Atypical chest pain, troponins have a flat pattern. Continue heparin drip." 04/04 Pulmonary: "Altered mental status likely related to sepsis and right lower lobe pneumonia, noted CT scan of the head negative. Elevated D dimer likely related to sepsis. Right lower lobe pneumonia." 04/06 IM: "right lower lobe pneumonia, on IV antibiotics, Azithromycin, DuoNeb, Bumex for CHF, acute on chronic diastolic." 04/08 IM: "came in with right lower lobe pneumonia, COPD exacerbation, tracheobronchitis, cough, congestion, and wheezing." 04/09 Pulmonary: "Acute on chronic sinusitis due to infected teeth, on broad- spectrum antibiotics likely will need extraction, swelling has improved. Unstable angina/coronary artery disease, on IV heparin cardiovascular services are following plan for cardiac catheter angiogram later on today. Altered mental status likely related to sepsis and right lower lobe pneumonia." 04/09 Heart cath: Indication: Acute non-ST elevation myocardial infarction. Critical disease involving the distal left main and ostial LCx and LAD with an eccentric plaque appears to be calcified approaching almost 80%. Consult surgery for further evaluation of CABG." Treatment: A/A QID scheduled 04/04-current; ASA 81mg po daily; Bumex 1mg po daily 04/04-current; IV Rocephin 1gm Q24H 04/04-04/10; Vibramycin 100mg po BID 04/04-04/10; IV Heparin 4000 units x1 on 04/03 and 04/10; IV Heparin titrated 04/03-04/05; IV Heparin titrated currently; IV Solumedrol 125mg x1 on 04/03; IV Solumedrol 40mg Q8H 04/04-04/06; IV Solumedrol 125mg x1 on 04/09; cardiac catheterization on 04/09 In your professional opinion, can you please clarify which diagnosis, after study, was the reason chiefly responsible for the admission? [ ] NSTEMI [ ] COPD exacerbation [ ] Pneumonia [ ] Other, please specify [ ] Unable to determine MTDD
--- NOTE | 2024-04-10 10:02 | CDI ---
Documentation Clarification Form Date: 04/10/2024 09:48:53 AM From: Aliya Castorena RN, CCDS Phone: [phone] Admit Date: 04/03/2024 09:34:00 PM Patient Name: Shalonda Smalls Visit Number: [id number] Discharge Date: ATTENTION: The Clinical Documentation Specialists (CDI) and [facility] Coding Staff appreciate your assistance in clarifying documentation. Please respond to the clarification below the line at the bottom and electronically sign. The CDI & [facility] Coding staff will review the response and follow-up if needed. Please note: Queries are made part of the Legal Health Record. If you have any questions, please contact the author of this message via ITS. Doctor Tavo Lisa: Sepsis is documented by the Pulmonary energy consultant which may lack sufficient clinical evidence/support in the medical record. Additional clarification is requested. History/Risk Factors: Asthma, CAD, COPD, DM, DVT, GERD, HLD, renal disease and sleep apnea. The patient presented with chest pain and shortness of breath. Clinical Indicators: 04/03-04/10 WBC: 6.7-6.0-7.1 04/03-04/04 D-dimer: 1.66-1.19 04/03 CXR: No acute cardiopulmonary disease/process 04/03 Admission Vital Signs: Temp 98.6, HR 74, RR 20, BP 139/85, pox 94% 04/10 Vital Signs: Temp 97.9, HR 72, RR 18, BP 130/68, pox 96% H&P: "admitted to the hospital for altered mental status, pain radiating down her left arm, mildly short of breath. Has severe COPD." 04/04 Pulmonary consult: "Altered mental status likely related to sepsis and right lower lobe pneumonia. Noted CT scan of the head negative. Elevated D-dimer likely related to sepsis." 04/08 IM: "Right lower lobe pneumonia, COPD exacerbation, multiple medical problems, most likely she can be possibly discharged home in the next 24 hours to go home." Treatment: A/A QID scheduled 04/04-current; IV Rocephin 1gm Q24H 04/04-04/10; Vibramycin 100mg po BID 04/04-04/10; IV Solumedrol 125mg x1 on 04/03; IV Solumedrol 40mg Q8H 04/04-04/06; IV Solumedrol 125mg x1 on 04/09 Please clarify if Sepsis is a valid diagnosis? [ ] No, Sepsis is ruled out [ ] Yes, Sepsis is present as evidenced by (additional clinical support): [ ] Other (please specify diagnosis) [ ] Unable to determine MTDD
--- NOTE | 2024-04-10 10:21 | CDI ---
Documentation Clarification Form Date: 04/10/2024 10:02:30 AM From: Aliya Castorena RN, CCDS Phone: [phone] Admit Date: 04/03/2024 09:34:00 PM Patient Name: Shalonda Smalls Visit Number: [id number] Discharge Date: ATTENTION: The Clinical Documentation Specialists (CDI) and [facility] Coding Staff appreciate your assistance in clarifying documentation. Please respond to the clarification below the line at the bottom and electronically sign. The CDI & [facility] Coding staff will review the response and follow-up if needed. Please note: Queries are made part of the Legal Health Record. If you have any questions, please contact the author of this message via ITS. Doctor Tavo Lisa Your patient has the documented symptom of Altered Mental Status in the H&P and progress notes. Additional clarification regarding the etiology/cause of this symptom is requested. History/Risk Factors: Asthma, CAD, COPD, DM, DVT, GERD, HLD, renal disease and sleep apnea. The patient presented with chest pain, altered mental status and shortness of breath. Clinical Indicators: 04/03-04/10 WBC: 6.7-6.0-7.1 04/03-04/04 Troponins: 0.071-0.077-0.068 04/03-04/04 D-dimer: 1.66-1.19 04/03 CXR: No acute cardiopulmonary disease/process 04/03 CTA thoracic/abdominal/pelvic/aorta: no dissection, no PE, mild cardiomegaly, colonic diverticulosis 04/[address]: no acute process H&P: "admitted to the hospital for altered mental status, pain radiating down her left arm, mildly short of breath. Cardiology consult for non-STEMI, altered mental status." 04/04 Pulmonary consult: "Progressive confusion for last 3 days. Altered mental status likely related to sepsis and right lower lobe pneumonia noted CT scan of the head negative." 04/03 Admission Vital Signs: Temp 98.6, HR 74, RR 20, BP 139/85, pox 94% 04/10 Vital Signs: Temp 97.9, HR 72, RR 18, BP 130/68, pox 96% Treatment: A/A QID scheduled 04/04-current; ASA 81mg po daily; Bumex 1mg po daily 04/04-; IV Rocephin 1gm Q24H 04/04-04/10; Vibramycin 100mg po BID 04/04-04/10; IV Heparin 4000 units x1 on 04/03 and 04/10; IV Heparin titrated 04/03-04/05; IV Heparin titrated currently; IV Solumedrol 125mg x1 on 04/03; IV Solumedrol 40mg Q8H 04/04-04/06; IV Solumedrol 125mg x1 on 04/09; cardiac catheterization on 04/09 Please clarify the symptom of Altered Mental Status: [ ] Metabolic Encephalopathy [ ] Other condition (please specify) [ ] Unable to determine MTDD
--- NOTE | 2024-04-10 11:18 | P.GSCN ---
History of Present Illness Consult date: 04/10/24 Reason for Consult: Coronary artery disease with left main disease Requesting physician: Manuel Agosto History of present illness: This is a 68-year-old female who follows outpatient with Dr. Tavo Lisa for internal medicine. She has a previous medical history of mild nonobstructive coronary artery disease in the LAD from heart cath in 2019, hypertension, hyperlipidemia with anaphylactic reaction to statins, insulin-dependent diabetes, left lower extremity DVT, asthma/COPD, obstructive sleep apnea with home CPAP use, chronic kidney disease, left foot drop after back surgery, and chronic pain with chronic narcotic dependence. She presented to [facility] emergency room on April 03, 2024 with complaints of chest pain with radiation to her left arm associated with shortness of breath. The patient r eports the symptoms have been going on for probably about a month. In addition she complained of problems finding her words and forgetfulness. She denied any fever, nausea, vomiting, dizziness, or any other symptomatology. In the emergency room EKG demonstrated sinus rhythm with nonspecific ST changes. Chest x-ray demonstrated no acute cardiopulmonary process. She underwent a thoracic CT demonstrating no evidence of aortic dissection, aneurysm, pulmonary embolism. Brain CT demonstrated no acute process. Lab work was unremarkable except D- dimer 1.66, creatinine 1.17, and troponin elevation 0.077. She was ruled in for non-STEMI and admitted for evaluation and treatment with consultation placed to cardiology. Transthoracic echocardiogram was completed on April 04 demonstrating normal left ventricular systolic function with EF 55 to 60%, mild mitral and tricuspid regurgitation. Due to her elevated troponin she was recommended to undergo heart catheterization which was completed yesterday by Dr. Agosto revealing distal left main stenosis 80% involving the proximal LAD and circumflex also with 80% stenosis. The right coronary artery demonstrated only mild disease. Due to these findings consultation was placed to cardiothoracic surgery for surgical revascularization recommendations. Review of Systems Review of systems was completed and was negative except as noted - Cardiovascular Reports as per HPI, Reports chest pain, Reports shortness of breath - Neurological Reports as per HPI, Reports change in speech, Reports memory loss Past Medical History Past Medical History: Asthma, Coronary Artery Disease (CAD), Chest Pain / Angina, COPD, Diabetes Mellitus, Deep Vein Thrombosis (DVT), GERD/Reflux, Hyperlipidemia, Hypertension, Myocardial Infarction (HI), Musculoskeletal Disorder, Osteoarthritis (OA), Renal Disease, Sleep Apnea/CPAP/BIPAP Additional Past Medical History / Comment(s): PUD, colitis, benign colon polyps, DVT L leg, migraines, ANDREW - uses cpap. kidney stones, CKD stage II, vertigo, recurrent L ear infections/ruptured eardrum, TMJ, mild CAD, back prob - NT Lt arm, leg. Edema BLE. covid + 01/19/2021; left foot drop Last Myocardial Infarction Date:: 2009 History of Any Multi-Drug Resistant Organisms: None Reported Past Surgical History: Appendectomy, Cholecystectomy, Ear Surgery, Heart Catheterization, Hysterectomy, Joint Replacement, Orthopedic Surgery, Tonsillectomy Additional Past Surgical History / Comment(s): R/L knee arthroscopies, L ear patch/graft, EGD, colonoscopy/polypectomy, throat abscess. Right knee replacement, back surgery, Past Anesthesia/Blood Transfusion Reactions: Postoperative Nausea & Vomiting (PONV) Past Psychological History: Anxiety Additional Psychological History / Comment(s): Spouse has cancer Smoking Status: Never smoker Past Alcohol Use History: None Reported Past Drug Use History: None Reported - Past Family History Sister(s) History Unknown: Yes Family Medical History: Cancer Father History Unknown: Yes Family Medical History: Cancer Additional Family Medical History / Comment(s): Throat and brain cancer. Father was an alcoholic. Mother History Unknown: Yes Family Medical History: Liver Disease Additional Family Medical History / Comment(s): Mother is . She was an alcoholic. Medications and Allergies Home Medications Medication Instructions Recorded Confirmed Type Montelukast [Singulair] 10 mg PO HS 10/17/20 04/03/24 History Aspirin [Adult Low Dose Aspirin EC] 81 mg PO DAILY 04/21/22 04/03/24 History HYDROcodone/APAP 5-325MG [[place] 1 tab PO TID 05/21/23 04/03/24 History 5-325] Bumetanide [BUMEX] 1 mg PO DAILY 90 Days #90 tab 05/26/23 04/03/24 Rx atenoloL [Tenormin] 50 mg PO BID 90 Days #180 tab 05/26/23 04/03/24 Rx Azelastine HCl [Astelin Nasal 2 sprays NASAL BID 09/26/23 04/03/24 History [place]] Pantoprazole [Protonix] 40 mg PO BID 09/26/23 04/03/24 History Dicyclomine [Bentyl] 10 mg PO TID 04/03/24 04/03/24 History Gabapentin 300 mg PO TID 04/03/24 04/03/24 History INSULIN LISPRO (humaLOG) [humaLOG] See Protocol SQ AC-TID 04/03/24 04/03/24 History Insulin Glargine,Hum.rec.anlog 30 units SQ HS 04/03/24 04/03/24 History [Lantus Solostar Pen] Amoxic-Pot Clav 875-125Mg 1 each PO Q12HR 7 Days #14 tab 04/08/24 Rx [Augmentin 875-125] Budesonide [Pulmicort] 0.5 mg INHALATION RT-BID 30 Days 04/08/24 Rx #60 ml Dapagliflozin Propanediol [Farxiga] 10 mg PO DAILY 30 Days #30 tab 04/08/24 Rx INSULIN ASPART (NovoLOG) [NovoLOG 0 unit SQ ACHS each 04/08/24 Rx (formulary)] Ipratropium-Albuterol Nebulize 3 ml INHALATION RT-QID 30 Days 04/08/24 Rx [Duoneb 0.5 mg-3 mg/3 ml Soln] #120 each Loratadine [Claritin] 10 mg PO DAILY tab 04/08/24 Rx amLODIPine [Norvasc] 10 mg PO DAILY 30 Days #30 tab 04/08/24 Rx methylPREDNISolone Dose Pack 24 mg PO DAILY 5 Days #1 tab 04/08/24 Rx [Medrol Dose Pack] Allergies Allergy/AdvReac Type Severity Reaction Status Date / Time Iodinated Contrast Media Allergy Severe Anaphylaxis Verified 04/03/24 19:10 [Iodinated Contrast Media - IV Dye] iodine Allergy Anaphylaxis Verified 04/03/24 19:10 Cagprxq-CPU-IhP Reductase Allergy Anaphylaxis Verified 04/03/24 19:10 Inhibitor [Jdbzolk-Ymz-Hyi Reductase Inhibitor] Surgical - Exam Vital Signs Temp Pulse Resp BP Pulse Ox 98.6 F 74 20 139/85 94 L 04/03/24 18:01 04/03/24 18:01 04/03/24 18:01 04/03/24 18:01 04/03/24 18:01 CONSTITUTIONAL: Awake and alert, appears comfortable, cooperative, well-de veloped, well-nourished, no pain, no acute distress EYES: Pupils equal, round, reactive to light, normal ocular movement ENT: Moist mucous membranes without oral lesions present NECK: No masses, no bruits, trachea midline RESPIRATORY: Lungs sounds diminished bilaterally. Respirations even, non labored. Currently on 2 L nasal cannula with oxygen saturation 96%. Strong cough. No chest wall deformities. No clubbing or cyanosis present CARDIOVASCULAR: S1, S2 present. Regular rate and rhythm, sinus rhythm on telemetry. Palpable peripheral pulses bilaterally. Trace bilateral lower extre mity edema present. No calf pain or tenderness noted. No significant lower extremity varicosities noted GASTROINTESTINAL: Abdomen soft, nontender, nondistended without masses or organomegaly noted. There is no rebound or guarding present. Active bowel sounds present 4 quadrants. GENITOURINARY: Deferred INTEGUMENTARY: Skin is warm and dry with evidence of good perfusion. NEUROLOGIC: Cranial nerves II through XII intact, normal coordination, no obvious motor or sensory deficits, speech is normal MUSKULOSKELETAL: Able to move all extremities, strength equal bilaterally, normal posture, left-sided foot drop present PSYCHIATRIC: Alert and oriented to person place and time, appropriate affect, intact judgment and insight CLINICAL FRAILTY SCORE 5 Results - Labs 04/10/24 05:28 04/09/24 08:27 Abnormal Lab Results - Last 24 Hours (Table) 04/09/24 04/09/24 04/09/24 Range/Units 11:10 16:16 19:39 Lymphocytes # 0.9 L (1.0-4.8) k/uL INR (<1.2) APTT (22.0-30.0) sec POC Glucose (mg/dL) 181 H 185 H (70-110) mg/dL 04/09/24 04/09/24 04/10/24 Range/Units 19:39 20:07 05:28 Lymphocytes # 0.9 L (1.0-4.8) k/uL INR 1.2 H (<1.2) APTT 92.3 H (22.0-30.0) sec POC Glucose (mg/dL) 315 H (70-110) mg/dL 04/10/24 04/10/24 Range/Units 05:28 06:25 Lymphocytes # (1.0-4.8) k/uL INR (<1.2) APTT 110.8 H* (22.0-30.0) sec POC Glucose (mg/dL) 210 H (70-110) mg/dL - Imaging Chest x-ray: report reviewed, image reviewed CT scan - chest: report reviewed, image reviewed EKG: image reviewed Additional studies: Heart catheterization films reviewed with Dr. Mojica Assessment and Plan Assessment: Coronary artery disease with left main disease, non-STEMI this admission Chest pain, shortness of breath, secondary to above History of mild nonobstructive coronary artery disease in the LAD from heart cath in 2019 Hypertension Hyperlipidemia with anaphylactic reaction to statins, cholesterol 225, LDL 155 Insulin-dependent diabetes Left lower extremity DVT Asthma/COPD Obstructive sleep apnea with home CPAP use Chronic kidney disease Left foot drop after back surgery Chronic pain with chronic narcotic dependence Plan: The patient was seen and examined this morning sitting up in bed with her daughter present at the bedside. Chart/diagnostics were reviewed with Dr. Mojica. The usual perioperative course of open-heart surgery was discussed in detail with the patient and her daughter, risks and benefits were reviewed, all questions were answered. Preoperative testing was initiated, once completed we will calculate STS risk score and discuss with the patient. Recommend continuing aspirin, beta-arlene therapy. As patient has statin anaphylaxis reaction recommend continuing Zetia, may benefit from Repatha. Of note there is documentation from Dr. Lisa and Dr. Powers that patient has right lower lobe pneumonia as well as infected teeth needing extraction, she is currently on IV ceftriaxone, oral doxycycline and Augmentin as well as a Medrol Dosepak. Patient has remained afebrile, no leukocytosis present, chest x-ray demonstrates no acute cardiopulmonary process, patient may benefit from reduction in ant ibiotics. More recommendations to follow once Dr. Mojica has met with the patient after preoperative testing completed. Thank you Dr. Agosto for this consult, we will continue to follow along with you and make further recommendations as appropriate. I have personally seen and examined the patient, performed the documentation and the assessment and plan as written. Number of minutes spent on the visit: 30. JOSIAH Gabriel
[2024-04-10 11:19] LABS: Glucose,Whole Blood 184 mg/dL (70-110)
[2024-04-10] MEDS: LACTULOSE 20 GM/30 ML CUP PO PRN (11:24)
--- NOTE | 2024-04-10 12:14 | US ---
EXAMINATION TYPE: US vein mapping BILAT DATE OF EXAM: 04/10/2024 11:20 AM COMPARISON: NONE CLINICAL INDICATION: Female, 68 years old with history of preop cardiac surgery; PreOp TECHNIQUE: Grayscale and color Doppler imaging of the lower extremity venous system. SIDE PERFORMED: Bilateral FINDINGS: PATIENT HISTORY: Smoker: N/A Heart Disease: Yes Previous DVT: No Vascular Surgery: No Discoloration: No Hypertension: Yes Diabetes: N/A Paralysis: No Varicosities: No Edema: No DUPLEX FINDINGS: Greater Saphenous: Color flow seen Lesser Saphenous: Color flow seen Measurements in mm: Right Greater Saphenous: Groin: 5.6 x 5.1 mm High Thigh: 4.5 x 3.6 mm Mid Thigh: 3.5 x 3.2 mm Above Knee: 3.7 x 3.3 mm Knee: 4.8 x 3.3 mm Below Knee: 3.1 x 2.3 mm Mid Calf: 2.9 x 2.1 mm At Ankle: 2.4 x 2.0 mm Left Greater Saphenous: Groin: 7.7 x 6.0 mm High Thigh: 6.2 x 5.2 mm Mid Thigh: 5.7 x 4.4 mm Above Knee: 5.4 x 4.1 mm Knee: 4.1 x 4.6 mm Below Knee: 4.9 x 3.4 mm Mid Calf: 2.8 x 2.4 mm At Ankle: 2.8 x 2.0 mm IMPRESSION: 1. No evidence for occlusion. 2. GSV measurements listed above. 3. Performing surgeon to determine viability as conduit. [facility], , 04/10/2024 12:12 PM
--- NOTE | 2024-04-10 12:14 | US ---
EXAMINATION TYPE: Pre-Operative Non-Invasive Evaluation of the hand for Potential Radial Artery Apolinar , Measurements only DATE OF EXAM: 04/10/2024 11:20 AM CLINICAL INDICATION: Female, 68 years old with history of measurements only; TECHNIQUE:Grayscale and color Doppler imaging of the radial artery(s) SIDE PERFORMED: Left FINDINGS: Dominant hand: Right Duplex Findings: Radial Artery: Color flow seen Measurements in mm, transverse view: Left Radial: Proximal: 3.0 x 2.8 mm Mid: 2.4 x 2.3 mm Distal: 2.2 x 2.2 mm IMPRESSION: 1. No evidence for vascular occlusion. 2. Measurements as described above. [facility], , 04/10/2024 12:11 PM
--- NOTE | 2024-04-10 12:16 | US ---
EXAMINATION TYPE: US carotid duplex BILAT DATE OF EXAM: 04/10/2024 COMPARISON: CTA head and neck 06/17/2022 CLINICAL INDICATION: Female, 68 years old with history of preop cardiac surgery; Pre OP- HTN TECHNIQUE: Grayscale, color Doppler and spectral Doppler evaluation of the bilateral carotid systems and vertebral arteries. Indirect Doppler criteria was utilized. FINDINGS: EXAM MEASUREMENTS: RIGHT: Peak Systolic Velocity (PSV) cm/sec ----- Right CCA: 88.6 ----- Right ICA: 91.8 ----- Right ECA: 109.7 ICA/CCA ratio: 1.0 RIGHT: End Diastole cm/sec ----- Right CCA: 12.8 ----- Right ICA: 11.5 ----- Right ECA: 9.5 LEFT: Peak Systolic Velocity (PSV) cm/sec ----- Left CCA: 77.6 ----- Left ICA: 101.8 ----- Left ECA: 123.7 ICA/CCA ratio: 1.3 LEFT: End Diastole cm/sec ----- Left CCA: 13.8 ----- Left ICA: 25.9 ----- Left ECA: 10.7 VERTEBRALS (direction of flow): Right Vertebral: Antegrade Left Vertebral: Antegrade Rhythm: Normal ECHOCARDIOGRAPHY TECH NOTES: Small amount of plaque seen in bilateral bulbs. No elevated velocities IMPRESSION: No ultrasound evidence of hemodynamically significant stenosis of the bilateral visualized carotid ar terial systems. Criteria for Assigning % of Stenosis / Diameter reduction (Estimation based on the indirect measurements of the internal carotid artery velocities (ICA PSV). 1. Normal (no stenosis)=ICA PSV < 125 cm/s: ratio < 2.0: ICA EDV<40 cm/s. 2. Less than 50% stenosis=ICA PSV < 125 cm/s: ratio < 2.0: ICA EDV<40 cm/s. 3. 50 to 69% stenosis=ICA PSV of 125 to 230 cm/s: ration 2.0 ? 4.0: ICA EDV 40-100 cm/s. 4. Greater than 70% stenosis to near occlusion= ICA PSV > 230 cm/s: ratio > 4.0: ICA EDV > 100 cm/s. 5. Near occlusion= ICA PSV velocities may be low or undetectable: variable ratio and ICA EDV. 6. Total occlusion=unable to detect flow. [facility], , 04/10/2024 12:13 PM
--- NOTE | 2024-04-10 12:27 | US ---
EXAMINATION TYPE: US arterial LE single level DATE OF EXAM: 04/10/2024 12:13 PM CLINICAL INDICATION: Female, 68 years old with history of Ankle Brachial Index (ANNELIESE); Pre-OP CABG ANNELEISE TECHNIQUE: Systolic pressures were taken of the upper and lower extremity arteries with ankle-brachia l indices and toe brachial indices calculated bilaterally. FINDINGS: Doppler Waveforms: Right: Biphasic waveform femoral artery, biphasic waveform popliteal artery, monophasic waveform post erior tibial, triphasic waveform in dorsalis pedis. Left: Triphasic waveform femoral, biphasic waveform popliteal, biphasic waveform posterior tibial, tr iphasic waveform dorsalis pedis Brachial Artery systolic pressure: Right systolic pressure: Deferred due to cath site right wrist Left systolic pressure: 139 Posterior Tibial artery systolic pressure: Right: 180 Left: 174 Dorsalis Pedis artery systolic pressure: Right: 173 Left: 145 Ankle-Brachial Indices: Right: 1.3 Left: 1.3 (Vessel hardening > 1.4; Normal 0.9 - 1.4, Moderate 0.7 - 0.9, Severe 0.5-0.7) IMPRESSION: Normal ankle-brachial brachial indices bilaterally. [facility], , 04/10/2024 12:24 PM
--- NOTE | 2024-04-10 12:35 | P.PN ---
Subjective HISTORY OF PRESENT ILLNESS: This is a 68-year-old female patient seen in [address] Zeyad Chavez in the office with past medical history of diabetes, hypertension, hyperlipidemia, known to have nonobstructive coronary artery disease, history of DVT, obstructive sleep apnea on CPAP, chronic kidney disease stage II. We have been asked to evaluate the patient for unstable angina and elevated troponin. Patient gives history that for a couple of days she developed some chest pressure that was on the left upper area for at least 3 days. It is a pressure type sensation. Following that by about 1 day, patient developed problems with finding words and forgetting words, stuttering started yesterday. Blood pressure 135/71, heart rate 78, patient is seen today in the emergency center waiting for bed on the cardiac stepdown unit. Heparin drip has been started. EKG: Sinus rhythm with left axis deviation nonspecific ST changes Chest x-ray: No acute process CAT scan of the brain revealed no acute intracranial process. CT angio of the thorax and abdominal pelvis: No evidence of aortic dissection, aneurysm or occlusion. No evidence of pulmonary embolus. Increased interstitial lung markings most pronounced in the medial aspect of the right lower lobe correlate for chronic scarring versus sequela prior surgery. Mild cardiomegaly. Moderate to severe coronary atherosclerosis. Laboratory studies: CBC within normal limits. D-dimer 1.66. Sodium 140, potassium 3.7, BUN 17 creatinine 1.17. Troponin 0.071, 0.077, 0.068. Home cardiac medications: Aspirin 81 mg daily, atenolol 50 mg twice daily, Bumex 1 mg daily. Cardiac catheterization performed 07/18/2019 revealed mild nonobstructive coronary artery disease involving the LAD. 04/05 Patient is seen today and examined in the emergency center still waiting for a bed on the cardiac stepdown unit. Patient states that her speech is back to normal. She denies having any chest pain. She does have some achiness in her chest with movement. She does have tenderness in her chest wall. She has been maintained on IV heparin which will be discontinued today. Blood pressure 140/86, heart rate 66, pulse ox 96% on room air. Echocardiogram reveals EF of 55 to 60%, mild concentric left ventricular hypertrophy. Mild mitral annular calcification and aortic sclerosis without restriction. Mild mitral and tricuspid regurgitation. No significant pulmonary hypertension. No pericardial effusion. Probable fat pad. 04/06 Patient is seen today on the cardiac stepdown unit. She denies having any chest pain. She has been maintained on IV heparin which we will discontinue. No repeat lab work has been done which we will order stat today. Blood pressure readings have been elevated 164/89. Heart rate is in the 60s and 70s, pulse ox 99% on 3 L nasal cannula. Triglycerides 79.9, cholesterol 225, LDL 155. 04/10/2024 Patient is status post cardiac catheterization yesterday with Dr. Agosto revealing critical disease involving the distal left main and ostial circumflex and LAD with eccentric plaque appears to be calcified approaching almost 80% and normal left-sided filling pressures. Patient examined this morning at the bedside. Patient denies shortness of breath. She reports occasional episodes of chest discomfort this morning. She remains on IV heparin. Vital signs are stable. PHYSICAL EXAM: VITAL SIGNS: Reviewed. GENERAL: Well-developed in no acute distress. NECK: Supple. No JVD or thyromegaly LUNGS: Respirations even and unlabored. Lungs essentially clear to auscultation bilaterally. HEART: Regular rate and rhythm. S1 and S2 heard. EXTREMITIES: Normal range of motion. No clubbing or cyanosis. Peripheral pulses intact. No lower extremity edema ASSESSMENT: Chest pain, status post cardiac catheterization critical disease involving the distal left main and ostial circumflex and LAD with eccentric plaque appears to be calcified approaching almost 80% Neurological symptoms with forgetting words, stuttering, resolved Elevated D-dimer, negative for PE History of nonobstructive coronary artery disease in the LAD on cardiac catheterization from 2019 Diabetes Hypertension, uncontrolled on admission Hyperlipidemia History of DVT Obstructive sleep apnea on CPAP Chronic kidney disease stage II Anaphylactic reaction to statins PLAN: Continue current cardiac medications Patient with history of anaphylactic reaction to statin therapy Continue IV heparin Add Imdur [address] surgery consulted for evaluation. Await further input. Further recommendations pending patient course Nurse practitioner note has been reviewed by physician. Signing provider agrees with the documented findings, assessment, and plan of care documented by [facility] [employer] as a scribe. Objective - Vital Signs Vital signs: Vital Signs Temp 98.3 F 04/10/24 12:00 Pulse 70 04/10/24 12:00 Resp 19 04/10/24 12:00 BP 123/70 04/10/24 12:00 Pulse Ox 96 04/10/24 12:00 FiO2 Intake & Output 04/09/24 04/10/24 04/10/24 18:59 06:59 18:59 Intake Total 200 10 304.167 Balance 200 10 304.167 Weight 86 kg Intake: IV 200 10 10 Invasive Line 3 10 10 Intake, IV Titration 54.167 Amount Heparin Sod,Pork in 0.45% 54.167 NaCl 25,000 unit In 0.45 % NaCl 1 250ml.bag @ 11. 604 UNITS/KG/HR 10 mls/hr IV .Q24H AMPARO Rx#: [id number] Oral 0 240 Other: Voiding Method Toilet Toilet # Voids 1 1 2 - Labs CBC & Chem 7: 04/10/24 05:28 04/09/24 08:27 Labs: Abnormal Lab Results - Last 24 Hours (Table) 04/09/24 04/09/24 04/09/24 Range/Units 16:16 19:39 19:39 Lymphocytes # 0.9 L (1.0-4.8) k/uL INR 1.2 H (<1.2) APTT 92.3 H (22.0-30.0) sec POC Glucose (mg/dL) 185 H (70-110) mg/dL 04/09/24 04/10/24 04/10/24 Range/Units 20:07 05:28 05:28 Lymphocytes # 0.9 L (1.0-4.8) k/uL INR (<1.2) APTT 110.8 H* (22.0-30.0) sec POC Glucose (mg/dL) 315 H (70-110) mg/dL 04/10/24 04/10/24 Range/Units 06:25 11:16 Lymphocytes # (1.0-4.8) k/uL INR (<1.2) APTT (22.0-30.0) sec POC Glucose (mg/dL) 210 H 184 H (70-110) mg/dL
[2024-04-10 12:54] LABS: ALT 14 U/L (4-34); AST 16 U/L (14-36); African American GFR (CKD) 55 (>60 ml/min/1.73 sqM); Albumin 3.5 g/dL (3.5-5.0); Alkaline Phosphatase 67 U/L (38-126); Anion Gap 9 mmol/L; Blood Urea Nitrogen 32 mg/dL (7-17); Calcium 8.6 mg/dL (8.4-10.2); Carbon Dioxide 23 mmol/L (22-30); Chloride 107 mmol/L (98-107); Glucose 189 mg/dL (74-99); Magnesium 2.2 mg/dL (1.6-2.3); Non-African American GFR(CKD) 48 (>60 ml/min/1.73 sqM); Sodium 139 mmol/L (137-145); Total Bilirubin 0.4 mg/dL (0.2-1.3); Total Protein 5.9 g/dL (6.3-8.2)
[2024-04-10 14:39] VITALS: BMI 37.0
[2024-04-10 16:16] LABS: Glucose,Whole Blood 230 mg/dL (70-110)
--- NOTE | 2024-04-10 16:49 | PN ---
PROGRESS NOTE SUBJECTIVE: A 68-year-old white female, right lower lobe pneumonia, treated with IV antibiotics and updraft treatments. OBJECTIVE: CARDIOVASCULAR: S1, S2. LUNGS: Transmitted upper sounds. GI: Soft. HEMATOLOGY: Negative Homans. PSYCH: Fair mood and affect. PLAN: Get heart catheterization with possible bypass surgery for eccentric left distal main blockage. Prognosis guarded. Continue current treatment for coronary artery disease and right upper lobe pneumonia. Get consult for possible bypass surgery. MMODL / IJN: [id number] /
[2024-04-10 20:18] LABS: Glucose,Whole Blood 268 mg/dL (70-110)
--- NOTE | 2024-04-10 20:29 | P.PN ---
Subjective Progress Note Date: 04/10/24 Principal diagnosis: Coronary artery disease with critical stenosis in left main distal circumflex and LAD with calcified plaque 80% stenosis Altered mental status likely related to sepsis and right lower lobe pneumonia noted CT scan of the head negative Elevated D-dimer likely related to sepsis Right lower lobe pneumonia Sleep disordered breathing and sleep apnea Chronic persistent asthma mild to moderate intermittent type Chest pain and tightness, atypical chest pain, cardiovascular service following, patient is on IV heparin troponin elevated Kidney disease, monitor and trend urine output and renal functions closely Sleep disordered breathing and sleep apnea April 10, 2024, patient found to have critical stenosis of over 80%, significant stenosis seen in left main distal portion along with circumflex near ostium and LAD with eccentric plaques and calcified appearance CT surgery has been consulted awaiting their recommendation patient remains on heparin. Labs include CBC within normal limit PTT is 62 BUN/creatinine 32/1.18 overall stable sugars are mid 100 to mid 200 range April 09, 2024, seen evaluate examined during rounds labs reviewed medications reviewed, facial congestion as well as cough improved on IV antibiotics and bronchodilators, patient is awaiting for cardiac catheter angiogram April 08, 2024, patient seen eval examined during rounds labs reviewed medications with care plan discussed, respiratory status overall stable however continue to require supplemental oxygen, patient continue to use old CPAP machine. Patient has been evaluated by cardiovascular service being planned for cardiac cath angiogram tomorrow. Patient has nasal stuffiness congestion, sinus tenderness, on IV Rocephin and doxycycline in addition patient has 2 infected teeth on the left side, will continue antibiotics along with oral prednisone. Patient is on IV heparin as well April 05, 2024, patient seen eval examined during rounds still patient is in the ER holding area, patient has been using CPAP each night and as needed during the day, mental status improved more awake and alert. Afebrile with oxygen saturation 94%, blood pressure 160/82 saturation 94% on 2 L oxygen. Blood sugar in mid 200 range. Patient remains on bronchodilator inhaled corticosteroid broad-spectrum antibiotics and IV steroids tolerating well 68-year-old female who presented to the hospital with chest pain and left arm pain note that having some confusion as she cannot recall the name of her dog. Specific questioning denies any fever chills denies any headache photophobia lacrimation, denies any weakness in any part of the body, she has other active medical problems significant asthma COPD and sleep apnea patient has a CPAP machine as well. Chest x-ray unremarkable ECG normal sinus rhythm with right bundle branch block, CT scan of the chest no evidence of aortic dissection or aneurysm no PE, prominent interstitium seen right lower lobe cardiomegaly, diverticulosis. Acute intracranial process CT scan of the head labs include CBC within normal limit, chemistry BUN/creatinine 17/1.17, glucose was 222, troponin elevated 0.077, D-dimer is 1.66 down to 1.19 Past medical history significant for chronic asthmatic bronchitis, coronary artery disease, COPD, diabetes, DVT, dyslipidemia, hypertension hypertensive cardiovascular disease, obstructive sleep apnea chronic kidney disease Objective - Vital Signs Vital signs: Vital Signs Temp 98.1 F 04/10/24 19:45 Pulse 74 04/10/24 20:23 Resp 18 04/10/24 19:45 BP 126/59 04/10/24 19:45 Pulse Ox 98 04/10/24 19:45 FiO2 Intake & Output 04/10/24 04/10/24 04/11/24 06:59 18:59 06:59 Intake Total 10 554.167 Balance 10 554.167 Weight 86 kg 86 kg Intake: IV 10 20 Invasive Line 3 10 20 Intake, IV Titration 54.167 Amount Heparin Sod,Pork in 0.45% 54.167 NaCl 25,000 unit In 0.45 % NaCl 1 250ml.bag @ 11. 604 UNITS/KG/HR 10 mls/hr IV .Q24H AMPARO Rx#: [id number] Oral 0 480 Other: Voiding Method Toilet Toilet # Voids 1 2 - Exam - Constitutional General appearance: average body habitus, cooperative, disheveled - EENT Eyes: EOMI, PERRLA Ears: bilateral: normal, positive tenderness left maxillary area and swelling left jaw - Neck Carotids: bilateral: upstroke normal Thyroid: bilateral: normal size - Respiratory Respiratory: right: rales - Cardiovascular Rhythm: regular Heart sounds: normal: S1, S2 - Gastrointestinal General gastrointestinal: normal bowel sounds - Integumentary Integumentary: normal turgor - Neurologic Neurologic: CNII-XII intact - Musculoskeletal Musculoskeletal: generalized weakness - Psychiatric Psychiatric: A&O x's 3, appropriate affect, intact judgment & insight - Labs CBC & Chem 7: 04/10/24 05:28 04/10/24 11:17 Labs: Abnormal Lab Results - Last 24 Hours (Table) 04/10/24 04/10/24 04/10/24 Range/Units 05:28 05:28 06:25 Lymphocytes # 0.9 L (1.0-4.8) k/uL APTT 110.8 H* (22.0-30.0) sec BUN (7-17) mg/dL Creatinine (0.52-1.04) mg/dL Glucose (74-99) mg/dL POC Glucose (mg/dL) 210 H (70-110) mg/dL Hemoglobin A1c (<=6.0) % Total Protein (6.3-8.2) g/dL 04/10/24 04/10/24 04/10/24 Range/Units 11:16 11:17 11:17 Lymphocytes # (1.0-4.8) k/uL APTT (22.0-30.0) sec BUN 32 H (7-17) mg/dL Creatinine 1.18 H (0.52-1.04) mg/dL Glucose 189 H (74-99) mg/dL POC Glucose (mg/dL) 184 H (70-110) mg/dL Hemoglobin A1c 8.5 H (<=6.0) % Total Protein 5.9 L (6.3-8.2) g/dL 04/10/24 04/10/24 04/10/24 Range/Units 16:03 16:15 20:17 Lymphocytes # (1.0-4.8) k/uL APTT 62.2 H (22.0-30.0) sec BUN (7-17) mg/dL Creatinine (0.52-1.04) mg/dL Glucose (74-99) mg/dL POC Glucose (mg/dL) 230 H 268 H (70-110) mg/dL Hemoglobin A1c (<=6.0) % Total Protein (6.3-8.2) g/dL Assessment and Plan Assessment: Coronary artery disease with critical stenosis in left main distal circumflex and LAD with calcified plaque 80% stenosis Acute on chronic sinusitis due to infected teeth, on broad-spectrum antibiotics likely will need extraction, swelling has improved we will continue Unstable angina/coronary artery disease, on IV heparin cardiovascular services are following plan for cardiac catheter angiogram later on today Altered mental status likely related to sepsis and right lower lobe pneumonia noted CT scan of the head negative, improved significantly Elevated D-dimer likely related to sepsis Right lower lobe pneumonia Sleep disordered breathing and sleep apnea Chronic persistent asthma mild to moderate intermittent type Kidney disease, monitor and trend urine output and renal functions closely Sleep disordered breathing and sleep apnea Plan: Awaiting CT surgery recommendation and evaluation, patient remains on IV heparin Will continue patient on oral Augmentin however will discontinue IV Rocephin and doxycycline On oral steroids, with Medrol Dosepak Bronchodilators with inhaled corticosteroid aerosolized along with DuoNeb Continue CPAP machine from home, will arrange new CPAP machine on outpatient basis patient likely will need new polysomnogram we will arrange it on outpatient basis as well Follow-up on cardiac cath angiogram results and reports Patient will likely need extraction Time with Patient: Greater than 30
[2024-04-10 22:35] LABS: Hepatitis A Antibody IgM Nonreactive (Nonreactive); Hepatitis C IgG Antibody Nonreactive (Nonreactive)
[2024-04-10 22:36] LABS: Hepatitis B Core IgM Nonreactive (Nonreactive); Hepatitis B Surface Antigen Nonreactive (Nonreactive)
[2024-04-11 06:15] LABS: Glucose,Whole Blood 148 mg/dL (70-110)
[2024-04-11] MEDS: ISOSORBIDE MONONITRATE ER 30 MG TAB.ER.24H PO SCH (07:58)
--- NOTE | 2024-04-11 08:30 | P.PN ---
Subjective Progress Note Date: 04/11/24 Principal diagnosis: Coronary artery disease with critical stenosis in left main distal circumflex and LAD with calcified plaque 80% stenosis Altered mental status likely related to sepsis and right lower lobe pneumonia noted CT scan of the head negative Elevated D-dimer likely related to sepsis Right lower lobe pneumonia Sleep disordered breathing and sleep apnea Chronic persistent asthma mild to moderate intermittent type Chest pain and tightness, atypical chest pain, cardiovascular service following, patient is on IV heparin troponin elevated Kidney disease, monitor and trend urine output and renal functions closely Sleep disordered breathing and sleep apnea April 11, 2024, patient seen eval examined sitting upright on the bed, on supplemental oxygen, ongoing intermittent shortness of breath spasm, denies any chest pain currently, discussed with patient at length about finding of cardiac cath angiogram explained to her and daughter, awaiting further recommendation from cardiothoracic surgery, labs are not done will repeat labs blood sugar in mid 100 to mid 200 range, PTT in therapeutic range remains on IV heparin April 10, 2024, patient found to have critical stenosis of over 80%, significant stenosis seen in left main distal portion along with circumflex near ostium and LAD with eccentric plaques and calcified appearance CT surgery has been consulted awaiting their recommendation patient remains on heparin. Labs include CBC within normal limit PTT is 62 BUN/creatinine 32/1.18 overall stable sugars are mid 100 to mid 200 range April 09, 2024, seen evaluate examined during rounds labs reviewed medications reviewed, facial congestion as well as cough improved on IV antibiotics and bronchodilators, patient is awaiting for cardiac catheter angiogram April 08, 2024, patient seen eval examined during rounds labs reviewed medications with care plan discussed, respiratory status overall stable however continue to require supplemental oxygen, patient continue to use old CPAP machine. Patient has been evaluated by cardiovascular service being planned for cardiac cath angiogram tomorrow. Patient has nasal stuffiness congestion, sinus tenderness, on IV Rocephin and doxycycline in addition patient has 2 infected teeth on the left side, will continue antibiotics along with oral prednisone. Patient is on IV heparin as well April 05, 2024, patient seen eval examined during rounds still patient is in the ER holding area, patient has been using CPAP each night and as needed during the day, mental status improved more awake and alert. Afebrile with oxygen saturation 94%, blood pressure 160/82 saturation 94% on 2 L oxygen. Blood sugar in mid 200 range. Patient remains on bronchodilator inhaled corticosteroid broad-spectrum antibiotics and IV steroids tolerating well 68-year-old female who presented to the hospital with chest pain and left arm pain note that having some confusion as she cannot recall the name of her dog. Specific questioning denies any fever chills denies any headache photophobia lacrimation, denies any weakness in any part of the body, she has other active medical problems significant asthma COPD and sleep apnea patient has a CPAP machine as well. Chest x-ray unremarkable ECG normal sinus rhythm with right bundle branch block, CT scan of the chest no evidence of aortic dissection or aneurysm no PE, prominent interstitium seen right lower lobe cardiomegaly, diverticulosis. Acute intracranial process CT scan of the head labs include CBC within normal limit, chemistry BUN/creatinine 17/.17, glucose was 222, troponin elevated 0.077, D-dimer is 1.66 down to 1.19 Past medical history significant for chronic asthmatic bronchitis, coronary artery disease, COPD, diabetes, DVT, dyslipidemia, hypertension hypertensive cardiovascular disease, obstructive sleep apnea chronic kidney disease Objective - Vital Signs Vital signs: Vital Signs Temp 98.0 F 04/11/24 07:28 Pulse 63 04/11/24 07:28 Resp 16 04/11/24 07:28 BP 124/74 04/11/24 07:28 Pulse Ox 95 04/11/24 07:28 FiO2 Intake & Output 04/10/24 04/11/24 04/11/24 18:59 06:59 18:59 Intake Total 554.167 280.717 120 Balance 554.167 280.717 120 Weight 86 kg 87.5 kg Intake: IV 20 10 Invasive Line 3 20 10 Intake, IV Titration 54.167 152.717 Amount Heparin Sod,Pork in 0.45% 54.167 152.717 NaCl 25,000 unit In 0.45 % NaCl 1 250ml.bag @ 11. 604 UNITS/KG/HR 10 mls/hr IV .Q24H [facility] Rx#: [id number] Oral 480 118 120 Other: Voiding Method Toilet Toilet # Voids 2 1 # Bowel Movements 1 - Exam - Constitutional General appearance: average body habitus, cooperative, disheveled - EENT Eyes: EOMI, PERRLA Ears: bilateral: normal, positive tenderness left maxillary area and swelling left jaw - Neck Carotids: bilateral: upstroke normal Thyroid: bilateral: normal size - Respiratory Respiratory: right: rales - Cardiovascular Rhythm: regular Heart sounds: normal: S1, S2 - Gastrointestinal General gastrointestinal: normal bowel sounds - Integumentary Integumentary: normal turgor - Neurologic Neurologic: CNII-XII intact - Musculoskeletal Musculoskeletal: generalized weakness - Psychiatric Psychiatric: A&O x's 3, appropriate affect, intact judgment & insight - Labs CBC & Chem 7: 04/10/24 05:28 04/10/24 11:17 Labs: Abnormal Lab Results - Last 24 Hours (Table) 04/10/24 04/10/24 04/10/24 Range/Units 11:16 11:17 11:17 APTT (22.0-30.0) sec BUN 32 H (7-17) mg/dL Creatinine 1.18 H (0.52-1.04) mg/dL Glucose 189 H (74-99) mg/dL POC Glucose (mg/dL) 184 H (70-110) mg/dL Hemoglobin A1c 8.5 H (<=6.0) % Total Protein 5.9 L (6.3-8.2) g/dL 04/10/24 04/10/24 04/10/24 Range/Units 16:03 16:15 20:17 APTT 62.2 H (22.0-30.0) sec BUN (7-17) mg/dL Creatinine (0.52-1.04) mg/dL Glucose (74-99) mg/dL POC Glucose (mg/dL) 230 H 268 H (70-110) mg/dL Hemoglobin A1c (<=6.0) % Total Protein (6.3-8.2) g/dL 04/11/24 04/11/24 Range/Units 06:13 06:43 APTT 60.6 H (22.0-30.0) sec BUN (7-17) mg/dL Creatinine (0.52-1.04) mg/dL Glucose (74-99) mg/dL POC Glucose (mg/dL) 148 H (70-110) mg/dL Hemoglobin A1c (<=6.0) % Total Protein (6.3-8.2) g/dL Assessment and Plan Assessment: Coronary artery disease with critical stenosis in left main distal circumflex and LAD with calcified plaque 80% stenosis, cardiothoracic surgery is evaluating pending further recommendation Acute on chronic sinusitis due to infected teeth, on broad-spectrum antibiotics likely will need extraction, swelling has improved we will continue Unstable angina/coronary artery disease, on IV heparin cardiovascular services are following plan for cardiac catheter angiogram later on today Altered mental status likely related to sepsis and right lower lobe pneumonia noted CT scan of the head negative, improved significantly Elevated D-dimer likely related to sepsis Right lower lobe pneumonia Sleep disordered breathing and sleep apnea Chronic persistent asthma mild to moderate intermittent type Kidney disease, monitor and trend urine output and renal functions closely Sleep disordered breathing and sleep apnea Plan: Awaiting CT surgery recommendation and evaluation, patient remains on IV heparin repeat labs Will continue patient on oral Augmentin monitor observe off of IV Rocephin and doxycycline On oral steroids, with Medrol Dosepak Bronchodilators with inhaled corticosteroid aerosolized along with DuoNeb Continue CPAP machine from home, will arrange new CPAP machine on outpatient basis patient likely will need new polysomnogram we will arrange it on outpatient basis as well Follow-up on cardiac cath angiogram results and reports Patient will likely need extraction Time with Patient: Greater than 30
[2024-04-11 11:18] LABS: Glucose,Whole Blood 278 mg/dL (70-110)
--- NOTE | 2024-04-11 12:39 | P.PN ---
Subjective Progress Note Date: 04/11/24 Principal diagnosis: Coronary artery disease with left main disease. Past medical history significant for mild nonobstructive coronary artery disease in the LAD from heart cath in 2019, hypertension, hyperlipidemia with anaphylactic reaction to statins, insulin-dependent diabetes, left lower extremity DVT, asthma/COPD, obstructive sleep apnea with home CPAP use, chronic kidney disease, left foot drop after back surgery, and chronic pain with chronic narcotic dependence. The patient was seen and examined in follow-up today April 11, 2024 at her bedside on the third floor cardiac stepdown unit. She is currently laying in bed, is awake, alert, oriented x 3 and is in no acute apparent distress. Denies any complaints of shortness of breath chest pain or chest pressure at this time. Heparin drip remains infusing per protocol. She does report that she has chronic back pain which spasms when ambulating. The patient was concerned about doing a 5 m walk test, although participated with the 5 m walk test with time 1: 7.35 seconds, time 2: 11.84 seconds, and time 3: 11.40 seconds. The patient tolerated well, although was complaining of back pain during the 5 m walk test. Preoperative testing has been completed, and STS risk or has been calculated and discussed with the patient. She will be scheduled for off-pump myocardial vascularization surgery with left internal mammary artery, endoscopic greater saphenous vein harvest, endoscopic left radial artery harvest, exclusion left atrial appendage and intraoperative transesophageal echocardiogram to be com pleted tomorrow April [address] Can Mojica. She will be n.p.o. after midnight. A clinical frailty score was also calculated with a score equaling 5. The patient has a history of anaphylaxis to statins, but remains on Zetia. A carotid duplex was completed yesterday which shows no evidence of hemodynamically significant stenosis. Bedside FEV1 was also completed which showed a value of 1.92, 97% of predicted value. Objective - Vital Signs Vital signs: Vital Signs Temp 96.6 F L 04/11/24 10:49 Pulse 77 04/11/24 11:36 Resp 18 04/11/24 11:36 BP 107/61 04/11/24 10:49 Pulse Ox 96 04/11/24 10:49 FiO2 Intake & Output 04/10/24 04/11/24 04/11/24 18:59 06:59 18:59 Intake Total 554.167 280.717 130 Balance 554.167 280.717 130 Weight 86 kg 87.5 kg Intake: IV 20 10 10 Invasive Line 3 20 10 10 Intake, IV Titration 54.167 152.717 Amount Heparin Sod,Pork in 0.45% 54.167 152.717 NaCl 25,000 unit In 0.45 % NaCl 1 250ml.bag @ 11. 604 UNITS/KG/HR 10 mls/hr IV .Q24H [facility] Rx#: [id number] Oral 480 118 120 Other: Voiding Method Toilet Toilet # Voids 2 1 # Bowel Movements 1 - Exam CONSTITUTIONAL: Sitting up to the bedside chair in the intensive care unit, appears comfortable, cooperative, no apparent acute distress. HEENT: Neck is supple, no JVD, no lymphadenopathy. RESPIRATORY: Lungs sounds essentially clear throughout, diminished to his bilateral bases. Respirations are symmetrical and nonlabored. Currently on 3 L nasal cannula with oxygen saturations 96%. Able to achieve 1000 mL on her incentive spirometry. Strong cough. CARDIOVASCULAR: Regular rhythm and rate. S1 and S2 present, negative for S3, gallop or murmur. Palpable peripheral pulses bilaterally. No calf pain or tenderness noted. GASTROINTESTINAL: Abdomen soft, nontender, nondistended. Active bowel sounds present 4 quadrants. Tolerating diet. Passing flatus. No guarding or rigidity. GENITOURINARY: Continues to void. INTEGUMENTARY: Skin is warm and dry with no evidence of clubbing or cyanosis. NEUROLOGIC: Cranial nerves II through XII intact. MUSKULOSKELETAL: Able to move all extremities, strength equal bilaterally, generalized weakness. Chronic dropfoot to her left foot. PSYCHIATRIC: Alert and oriented to person place and time, appropriate affect, intact judgment and insight. - Allied health notes Allied health notes reviewed: nursing - Labs CBC & Chem 7: 04/10/24 05:28 04/10/24 11:17 Labs: Abnormal Lab Results - Last 24 Hours (Table) 04/10/24 04/10/24 04/10/24 Range/Units 11:17 11:17 16:03 APTT 62.2 H (22.0-30.0) sec BUN 32 H (7-17) mg/dL Creatinine 1.18 H (0.52-1.04) mg/dL Glucose 189 H (74-99) mg/dL POC Glucose (mg/dL) (70-110) mg/dL Hemoglobin A1c 8.5 H (<=6.0) % Total Protein 5.9 L (6.3-8.2) g/dL 04/10/24 04/10/24 04/11/24 Range/Units 16:15 20:17 06:13 APTT (22.0-30.0) sec BUN (7-17) mg/dL Creatinine (0.52-1.04) mg/dL Glucose (74-99) mg/dL POC Glucose (mg/dL) 230 H 268 H 148 H (70-110) mg/dL Hemoglobin A1c (<=6.0) % Total Protein (6.3-8.2) g/dL 04/11/24 04/11/24 Range/Units 06:43 11:13 APTT 60.6 H (22.0-30.0) sec BUN (7-17) mg/dL Creatinine (0.52-1.04) mg/dL Glucose (74-99) mg/dL POC Glucose (mg/dL) 278 H (70-110) mg/dL Hemoglobin A1c (<=6.0) % Total Protein (6.3-8.2) g/dL Assessment and Plan Assessment: Coronary artery disease with left main disease, non-STEMI this admission Chest pain, shortness of breath, secondary to above History of mild nonobstructive coronary artery disease in the LAD from heart cath in 2019 Hypertension Hyperlipidemia with anaphylactic reaction to statins, cholesterol 225, LDL 155 Insulin-dependent diabetes Left lower extremity DVT Asthma/COPD, with a preoperative FEV1 1.92 which is 97% of predicted value Obstructive sleep apnea with home CPAP use Chronic kidney disease Left foot drop after back surgery Chronic pain with chronic narcotic dependence Lifetime non-smoker Plan: Preoperative teaching has been reinforced with the patient. Encourage use of incentive spirometry 10 times every hour while awake. 5 m walk test with time 1: 7.35 seconds, time 2: 11.84 seconds, and time 3: 11.40 seconds. An STS risk or has been calculated and discussed with the patient. The patient is scheduled for off-pump myocardial revascularization surgery with left intramammary artery, endoscopic greater saphenous vein harvest, endoscopic left radial artery harvest, exclusion left atrial appendage and intraoperative transesophageal echocardiogram to be completed by Dr. Can prajapatiorrow April 12, 2024. N.p.o. after midnight. Discontinue heparin drip at 6 AM. No Lipitor, as it is contraindicated due to the patient's anaphylactic reaction with statins. Continue Zetia. Continue to maximize medical management with aspirin, statin and Zetia. A clinical frailty score was calculated yesterday, score equaling 5. The patient uses 2 L of oxygen as an outpatient, currently on 3 L nasal cannula. More recommendations to follow based on patient's clinical course. Time with Patient: Greater than 30
--- NOTE | 2024-04-11 12:44 | P.PN ---
Subjective HISTORY OF PRESENT ILLNESS: This is a 68-year-old female patient seen in [address] Zeyad Chavez in the office with past medical history of diabetes, hypertension, hyperlipidemia, known to have nonobstructive coronary artery disease, history of DVT, obstructive sleep apnea on CPAP, chronic kidney disease stage II. We have been asked to evaluate the patient for unstable angina and elevated troponin. Patient gives history that for a couple of days she developed some chest pressure that was on the left upper area for at least 3 days. It is a pressure type sensation. Following that by about 1 day, patient developed problems with finding words and forgetting words, stuttering started yesterday. Blood pressure 135/71, heart rate 78, patient is seen today in the emergency center waiting for bed on the cardiac stepdown unit. Heparin drip has been started. EKG: Sinus rhythm with left axis deviation nonspecific ST changes Chest x-ray: No acute process CAT scan of the brain revealed no acute intracranial process. CT angio of the thorax and abdominal pelvis: No evidence of aortic dissection, aneurysm or occlusion. No evidence of pulmonary embolus. Increased interstitial lung markings most pronounced in the medial aspect of the right lower lobe correlate for chronic scarring versus sequela prior surgery. Mild cardiomegaly. Moderate to severe coronary atherosclerosis. Laboratory studies: CBC within normal limits. D-dimer 1.66. Sodium 140, potassium 3.7, BUN 17 creatinine 1.17. Troponin 0.071, 0.077, 0.068. Home cardiac medications: Aspirin 81 mg daily, atenolol 50 mg twice daily, Bumex 1 mg daily. Cardiac catheterization performed 07/18/2019 revealed mild nonobstructive coronary artery disease involving the LAD. 04/05 Patient is seen today and examined in the emergency center still waiting for a bed on the cardiac stepdown unit. Patient states that her speech is back to normal. She denies having any chest pain. She does have some achiness in her chest with movement. She does have tenderness in her chest wall. She has been maintained on IV heparin which will be discontinued today. Blood pressure 140/86, heart rate 66, pulse ox 96% on room air. Echocardiogram reveals EF of 55 to 60%, mild concentric left ventricular hypertrophy. Mild mitral annular calcification and aortic sclerosis without restriction. Mild mitral and tricuspid regurgitation. No significant pulmonary hypertension. No pericardial effusion. Probable fat pad. 04/06 Patient is seen today on the cardiac stepdown unit. She denies having any chest pain. She has been maintained on IV heparin which we will discontinue. No repeat lab work has been done which we will order stat today. Blood pressure readings have been elevated 164/89. Heart rate is in the 60s and 70s, pulse ox 99% on 3 L nasal cannula. Triglycerides 79.9, cholesterol 225, LDL 155. 04/10/2024 Patient is status post cardiac catheterization yesterday with Dr. Agosto revealing critical disease involving the distal left main and ostial circumflex and LAD with eccentric plaque appears to be calcified approaching almost 80% and normal left-sided filling pressures. Patient examined this morning at the bedside. Patient denies shortness of breath. She reports occasional episodes of chest discomfort this morning. She remains on IV heparin. Vital signs are stable. 04/11/2024 Patient examined this morning at the bedside. Patient currently denies chest pain or pressure. She denies shortness of breath. She remains on IV heparin. Telemetry reveals sinus mechanism with heart rate in the 70s. PHYSICAL EXAM: VITAL SIGNS: Reviewed. GENERAL: Well-developed in no acute distress. NECK: Supple. No JVD or thyromegaly LUNGS: Respirations even and unlabored. Lungs essentially clear to auscultation bilaterally. HEART: Regular rate and rhythm. S1 and S2 heard. EXTREMITIES: Normal range of motion. No clubbing or cyanosis. Peripheral pulses intact. No lower extremity edema ASSESSMENT: Chest pain, status post cardiac catheterization critical disease involving the distal left main and ostial circumflex and LAD with eccentric plaque appears to be calcified approaching almost 80% Neurological symptoms with forgetting words, stuttering, resolved Elevated D-dimer, negative for PE History of nonobstructive coronary artery disease in the LAD on cardiac catheterization from 2019 Diabetes Hypertension, uncontrolled on admission Hyperlipidemia History of DVT Obstructive sleep apnea on CPAP Chronic kidney disease stage II Anaphylactic reaction to statins PLAN: Continue current cardiac medications Patient with history of anaphylactic reaction to statin therapy. Continue Zetia. Continue IV heparin Patient is scheduled for CABG tomorrow with CT surgery Further recommendations pending patient course Nurse practitioner note has been reviewed by physician. Signing provider agrees with the documented findings, assessment, and plan of care documented by PROF[employer]NAG[employer] as a scribe. Objective - Vital Signs Vital signs: Vital Signs Temp 96.6 F L 10/30/24 10:49 Pulse 77 04/11/24 11:36 Resp 18 04/11/24 11:36 BP 107/61 04/11/24 10:49 Pulse Ox 96 04/11/24 10:49 FiO2 Intake & Output 04/10/24 04/11/24 04/11/24 18:59 06:59 18:59 Intake Total 554.167 280.717 130 Balance 554.167 280.717 130 Weight 86 kg 87.5 kg Intake: IV 20 10 10 Invasive Line 3 20 10 10 Intake, IV Titration 54.167 152.717 Amount Heparin Sod,Pork in 0.45% 54.167 152.717 NaCl 25,000 unit In 0.45 % NaCl 1 250ml.bag @ 11. 604 UNITS/KG/HR 10 mls/hr IV .Q24H [facility] Rx#: [id number] Oral 480 118 120 Other: Voiding Method Toilet Toilet Toilet # Voids 2 1 # Bowel Movements 1 - Labs CBC & Chem 7: 04/10/24 05:28 04/10/24 11:17 Labs: Abnormal Lab Results - Last 24 Hours (Table) 04/10/24 04/10/24 04/10/24 Range/Units 11:17 11:17 16:03 APTT 62.2 H (22.0-30.0) sec BUN 32 H (7-17) mg/dL Creatinine 1.18 H (0.52-1.04) mg/dL Glucose 189 H (74-99) mg/dL POC Glucose (mg/dL) (70-110) mg/dL Hemoglobin A1c 8.5 H (<=6.0) % Total Protein 5.9 L (6.3-8.2) g/dL 04/10/24 04/10/24 04/11/24 Range/Units 16:15 20:17 06:13 APTT (22.0-30.0) sec BUN (7-17) mg/dL Creatinine (0.52-1.04) mg/dL Glucose (74-99) mg/dL POC Glucose (mg/dL) 230 H 268 H 148 H (70-110) mg/dL Hemoglobin A1c (<=6.0) % Total Protein (6.3-8.2) g/dL 04/11/24 04/11/24 Range/Units 06:43 11:13 APTT 60.6 H (22.0-30.0) sec BUN (7-17) mg/dL Creatinine (0.52-1.04) mg/dL Glucose (74-99) mg/dL POC Glucose (mg/dL) 278 H (70-110) mg/dL Hemoglobin A1c (<=6.0) % Total Protein (6.3-8.2) g/dL
[2024-04-11 16:10] LABS: Glucose,Whole Blood 370 mg/dL (70-110)
[2024-04-11] MEDS: INSULIN ASPART (NovoLOG) 100 UNIT/ML VIAL SQ SCH (17:00)
[2024-04-11 20:27] LABS: Glucose,Whole Blood 296 mg/dL (70-110)
[2024-04-11] MEDS: INSULIN DETEMIR (LEVEMIR) 100 UNIT/ML SYR SQ SCH (21:25)
[2024-04-12 00:15] LABS: Glucose,Whole Blood 139 mg/dL (70-110)
[2024-04-12 04:13] LABS: Glucose,Whole Blood 123 mg/dL (70-110)
[2024-04-12] MEDS ORDERED: INSULIN REGULAR 100 UNIT in SODIUM CHLORIDE 0.9% 100 ML IV SCH (05:00)
[2024-04-12] MEDS ORDERED: ATORVASTATIN 10 MG TAB PO ONE (05:00)
[2024-04-12] MEDS ORDERED: NOREPINEPHRINE 4 MG in SODIUM CHLORIDE 0.9% 250 ML IV SCH (05:00)
[2024-04-12] MEDS: METOPROLOL TARTRATE 12.5 MG TAB PO ONE (05:21)
[2024-04-12] MEDS: ASPIRIN 325 MG TAB PO ONE (05:21)
[2024-04-12 05:35] LABS: Glucose,Whole Blood 115 mg/dL (70-110)
[2024-04-12] MEDS: ALPRAZolam 0.25 MG TAB PO PRN (05:42)
[2024-04-12] MEDS ORDERED: CARDIOPLEGIC SOLN (K+ 16 MEQ/L 1,000 ML with SOD BICARB SYR 8.4% (1 MEQ/ML) 20 ML, LIDO... PERFUSION NR (06:00)
[2024-04-12] MEDS: IV FLUID CONTINUATION 1,000 ML IV ONE (06:30)
[2024-04-12] MEDS: LACTATED RINGERS 1,000 ML BAG IV STA (06:39)
[2024-04-12 06:49] LABS: Glucose,Whole Blood 111 mg/dL (70-110)
[2024-04-12] MEDS ORDERED: PHENYLEPHRINE 10 MG/ML VIAL ONE (07:45)
[2024-04-12] MEDS ORDERED: ALBUMIN HUMAN 5% (25gm) 500 ML VIAL IVPB ONE (07:45)
[2024-04-12] MEDS ORDERED: HEPARIN SODIUM,PORCINE 10,000 UNIT/ML 1 ML VIAL ONE (07:45)
[2024-04-12] MEDS ORDERED: PROPOFOL 10 MG/ML 20 ML VIAL IV ONE (07:45)
[2024-04-12] MEDS ORDERED: VECURONIUM 10 MG VIAL IV ONE (07:45)
[2024-04-12] MEDS ORDERED: fentaNYL (PF) 50 MCG/ML 50 ML VIAL ONE (07:45)
[2024-04-12] MEDS ORDERED: WATER FOR INJECTION, STERILE 10 ML VIAL IV ONE (07:45)
[2024-04-12] MEDS ORDERED: NITROGLYCERIN-D5W PMX 50 MG/250 ML BOTTLE IV ONE (07:45)
[2024-04-12] MEDS ORDERED: MIDAZOLAM HCL 10 MG/10 ML VIAL ONE (07:45)
[2024-04-12 08:49] LABS: ABG Base Excess -0.2 mmol/L; ABG Glucose Whole Blood 90 mg/dL (75-99); ABG HCO3 24 mmol/L (21-25); ABG Hematocrit 26 % (34.0-46.0); ABG Ionized Calcium 4.8 mg/dL (4.5-5.3); ABG Lactic Acid Whole Blood 1.3 mmol/L (0.5-1.6); ABG Oxygen Saturation 98.3 % (94-97); ABG PCO2 38 mmHg (35-45); ABG PH 7.41 (7.35-7.45); ABG PO2 95 mmHg (83-108); ABG Potassium Whole Blood 3.5 mmol/L (3.4-4.5); ABG Sodium Whole Blood 142 mmol/L (135-146); ABG TCO2 23 mmol/L (19-24)
[2024-04-12 08:54] LABS: ABG Base Excess -0.2 mmol/L; ABG Glucose Whole Blood 87 mg/dL (75-99); ABG HCO3 24 mmol/L (21-25); ABG Hematocrit 29 % (34.0-46.0); ABG Ionized Calcium 4.8 mg/dL (4.5-5.3); ABG Lactic Acid Whole Blood 1.2 mmol/L (0.5-1.6); ABG Oxygen Saturation 98.4 % (94-97); ABG PCO2 38 mmHg (35-45); ABG PH 7.41 (7.35-7.45); ABG PO2 101 mmHg (83-108); ABG Potassium Whole Blood 3.4 mmol/L (3.4-4.5); ABG Sodium Whole Blood 141 mmol/L (135-146); ABG TCO2 23 mmol/L (19-24)
[2024-04-12] MEDS: ceFAZolin 1,000 MG in SODIUM CHLORIDE 0.9% 1,000 ML IRRIGATION ONE (09:14)
[2024-04-12] MEDS: SODIUM CHLORIDE 0.9% 500 ML 500 ML with HEPARIN SODIUM,PORCINE (1 ML) 5,000 UNIT IV ONE (09:14)
[2024-04-12] MEDS: PAPAVERINE 360 MG in SODIUM CHLORIDE 0.9% 90 ML IV ONE (09:14)
[2024-04-12 09:56] LABS: ABG Base Excess -0.8 mmol/L; ABG Glucose Whole Blood 86 mg/dL (75-99); ABG HCO3 24 mmol/L (21-25); ABG Hematocrit 29 % (34.0-46.0); ABG Ionized Calcium 4.9 mg/dL (4.5-5.3); ABG Lactic Acid Whole Blood 1.4 mmol/L (0.5-1.6); ABG Oxygen Saturation 98.9 % (94-97); ABG PCO2 42 mmHg (35-45); ABG PH 7.37 (7.35-7.45); ABG PO2 152 mmHg (83-108); ABG Potassium Whole Blood 4.2 mmol/L (3.4-4.5); ABG Sodium Whole Blood 141 mmol/L (135-146); ABG TCO2 23 mmol/L (19-24)
[2024-04-12 10:57] LABS: ABG Base Excess -1.2 mmol/L; ABG Glucose Whole Blood 84 mg/dL (75-99); ABG HCO3 24 mmol/L (21-25); ABG Hematocrit 26 % (34.0-46.0); ABG Ionized Calcium 4.8 mg/dL (4.5-5.3); ABG Lactic Acid Whole Blood 1.1 mmol/L (0.5-1.6); ABG Oxygen Saturation 98.7 % (94-97); ABG PCO2 42 mmHg (35-45); ABG PH 7.36 (7.35-7.45); ABG PO2 125 mmHg (83-108); ABG Potassium Whole Blood 3.7 mmol/L (3.4-4.5); ABG Sodium Whole Blood 142 mmol/L (135-146); ABG TCO2 23 mmol/L (19-24)
[2024-04-12 11:33] LABS: ABG Base Excess -2.2 mmol/L; ABG Glucose Whole Blood 75 mg/dL (75-99); ABG HCO3 23 mmol/L (21-25); ABG Ionized Calcium 4.6 mg/dL (4.5-5.3); ABG Lactic Acid Whole Blood 1.1 mmol/L (0.5-1.6); ABG Oxygen Saturation 96.9 % (94-97); ABG PCO2 41 mmHg (35-45); ABG PH 7.36 (7.35-7.45); ABG PO2 78 mmHg (83-108); ABG Potassium Whole Blood 3.4 mmol/L (3.4-4.5); ABG Sodium Whole Blood 142 mmol/L (135-146); ABG TCO2 22 mmol/L (19-24); Allen Test Performed? Yes
[2024-04-12 11:42] LABS: ABG Hematocrit 24 % (34.0-46.0)
--- NOTE | 2024-04-12 11:56 | P.PN ---
Subjective Progress Note Date: 04/12/24 (Late entry note) Principal diagnosis: Coronary artery disease with critical stenosis in left main distal circumflex and LAD with calcified plaque 80% stenosis Altered mental status likely related to sepsis and right lower lobe pneumonia noted CT scan of the head negative Elevated D-dimer likely related to sepsis Right lower lobe pneumonia Sleep disordered breathing and sleep apnea Chronic persistent asthma mild to moderate intermittent type Chest pain and tightness, atypical chest pain, cardiovascular service following, patient is on IV heparin troponin elevated Kidney disease, monitor and trend urine output and renal functions closely Sleep disordered breathing and sleep apnea April 12, 2024, patient is being planned for surgery later on today with Age IV access established, patient is afebrile hemodynamically stable, blood sugar improved to 111 this morning with the escalation of long and short acting insulin and discontinuation of steroids April 11, 2024, patient seen eval examined sitting upright on the bed, on supplemental oxygen, ongoing intermittent shortness of breath spasm, denies any chest pain currently, discussed with patient at length about finding of cardiac cath angiogram explained to her and daughter, awaiting further recommendation from cardiothoracic surgery, labs are not done will repeat labs blood sugar in mid 100 to mid 200 range, PTT in therapeutic range remains on IV heparin April 10, 2024, patient found to have critical stenosis of over 80%, significant stenosis seen in left main distal portion along with circumflex near ostium and LAD with eccentric plaques and calcified appearance CT surgery has been consulted awaiting their recommendation patient remains on heparin. Labs include CBC within normal limit PTT is 62 BUN/creatinine 32/1.18 overall stable sugars are mid 100 to mid 200 range April 09, 2024, seen evaluate examined during rounds labs reviewed medications reviewed, facial congestion as well as cough improved on IV antibiotics and bronchodilators, patient is awaiting for cardiac catheter angiogram April 08, 2024, patient seen eval examined during rounds labs reviewed medications with care plan discussed, respiratory status overall stable however continue to require supplemental oxygen, patient continue to use old CPAP machine. Patient has been evaluated by cardiovascular service being planned for cardiac cath angiogram tomorrow. Patient has nasal stuffiness congestion, sinus tenderness, on IV Rocephin and doxycycline in addition patient has 2 infected teeth on the left side, will continue antibiotics along with oral prednisone. Patient is on IV heparin as well April 05, 2024, patient seen eval examined during rounds still patient is in the ER holding area, patient has been using CPAP each night and as needed during the day, mental status improved more awake and alert. Afebrile with oxygen saturation 94%, blood pressure 160/82 saturation 94% on 2 L oxygen. Blood sugar in mid 200 range. Patient remains on bronchodilator inhaled corticosteroid broad-spectrum antibiotics and IV steroids tolerating well 68-year-old female who presented to the hospital with chest pain and left arm pain note that having some confusion as she cannot recall the name of her dog. Specific questioning denies any fever chills denies any headache photophobia lacrimation, denies any weakness in any part of the body, she has other active medical problems significant asthma COPD and sleep apnea patient has a CPAP machine as well. Chest x-ray unremarkable ECG normal sinus rhythm with right bundle branch block, CT scan of the chest no evidence of aortic dissection or aneurysm no PE, prominent interstitium seen right lower lobe cardiomegaly, diverticulosis. Acute intracranial process CT scan of the head labs include CBC within normal limit, chemistry BUN/creatinine 17/1.17, glucose was 222, troponin elevated 0.077, D-dimer is 1.66 down to 1.19 Past medical history significant for chronic asthmatic bronchitis, coronary artery disease, COPD, diabetes, DVT, dyslipidemia, hypertension hypertensive cardiovascular disease, obstructive sleep apnea chronic kidney disease Objective - Vital Signs Vital signs: Vital Signs Temp 97.2 F L 04/12/24 06:12 Pulse 65 04/12/24 06:12 Resp 18 04/12/24 06:12 BP 115/59 04/12/24 06:12 Pulse Ox 95 04/12/24 06:12 FiO2 Intake & Output 04/11/24 04/12/24 04/12/24 18:59 06:59 18:59 Intake Total 380 0 3 Output Total 600 Balance 380 -600 3 Weight 88.2 kg Intake: IV 20 0 3 Invasive Line 3 20 Oral 360 Output: Urine 600 Other: Voiding Method Toilet Toilet # Voids 2 # Bowel Movements 1 - Exam - Constitutional General appearance: average body habitus, cooperative, disheveled - EENT Eyes: EOMI, PERRLA Ears: bilateral: normal, positive tenderness left maxillary area and swelling left jaw - Neck Carotids: bilateral: upstroke normal Thyroid: bilateral: normal size - Respiratory Respiratory: right: rales - Cardiovascular Rhythm: regular Heart sounds: normal: S1, S2 - Gastrointestinal General gastrointestinal: normal bowel sounds - Integumentary Integumentary: normal turgor - Neurologic Neurologic: CNII-XII intact - Musculoskeletal Musculoskeletal: generalized weakness - Psychiatric Psychiatric: A&O x's 3, appropriate affect, intact judgment & insight - Labs CBC & Chem 7: 04/10/24 05:28 04/10/24 11:17 Labs: Abnormal Lab Results - Last 24 Hours (Table) 04/11/24 04/11/24 04/11/24 Range/Units 11:22 16:03 20:01 ABG pO2 (83-108) mmHg ABG O2 Saturation (94-97) % ABG Hematocrit (34.0-46.0) % Hemoglobin (11.4-16.0) gm/dL POC Glucose (mg/dL) 370 H 296 H (70-110) mg/dL Crossmatch See Detail 04/12/24 04/12/24 04/12/24 Range/Units 00:10 04:05 05:34 ABG pO2 (83-108) mmHg ABG O2 Saturation (94-97) % ABG Hematocrit (34.0-46.0) % Hemoglobin (11.4-16.0) gm/dL POC Glucose (mg/dL) 139 H 123 H 115 H (70-110) mg/dL Crossmatch 04/12/24 04/12/24 04/12/24 Range/Units 06:47 08:55 08:59 ABG pO2 (83-108) mmHg ABG O2 Saturation 98.3 H 98.4 H (94-97) % ABG Hematocrit 26 L 29 L (34.0-46.0) % Hemoglobin 8.5 L 9.5 L (11.4-16.0) gm/dL POC Glucose (mg/dL) 111 H (70-110) mg/dL Crossmatch 04/12/24 04/12/24 04/12/24 Range/Units 10:02 11:03 11:39 ABG pO2 152 H 125 H 78 L (83-108) mmHg ABG O2 Saturation 98.9 H 98.7 H (94-97) % ABG Hematocrit 29 L 26 L 24 L (34.0-46.0) % Hemoglobin 9.5 L 8.4 L 7.7 L (11.4-16.0) gm/dL POC Glucose (mg/dL) (70-110) mg/dL Crossmatch Microbiology - Last 24 Hours (Table) 04/10/24 10:25 Nasal Screen MRSA/MSSA - Final Nasal Swab Assessment and Plan Assessment: Coronary artery disease with critical stenosis in left main distal circumflex and LAD with calcified plaque 80% stenosis, cardiothoracic surgery is evaluating pending further recommendation, surgery being planned later on today Uncontrolled diabetes and hyperglycemia, Lantus dose is escalated, patient placed on high intensity glucose control, steroids has been discontinued Acute on chronic sinusitis on antibiotics Unstable angina/coronary artery as above Altered mental status likely related to sepsis and right lower lobe pneumonia noted CT scan of the head negative, improved significantly Elevated D-dimer likely related to sepsis Right lower lobe pneumonia, off of antibiotics now Sleep disordered breathing and sleep apnea Chronic persistent asthma mild to moderate intermittent type Kidney disease, monitor and trend urine output and renal functions closely Sleep disordered breathing and sleep apnea Plan: Awaiting CT surgery recommendation and evaluation, patient remains on IV heparin repeat labs Will continue patient on oral Augmentin monitor observe off of IV Rocephin and doxycycline On oral steroids, with Medrol Dosepak Bronchodilators with inhaled corticosteroid aerosolized along with DuoNeb Continue CPAP machine from home, will arrange new CPAP machine on outpatient basis patient likely will need new polysomnogram we will arrange it on outpatient basis as well Follow-up on cardiac cath angiogram results and reports Patient will likely need extraction
[2024-04-12] MEDS ORDERED: ALBUMIN HUMAN 5% 250 ML in EMPTY BAG 1 BAG IVPB PRN (11:59)
[2024-04-12] MEDS ORDERED: Potassium Replacement Protocol 1 EACH MISC MISCELLANE PRN (11:59)
[2024-04-12] MEDS ORDERED: ONDANSETRON 4 MG/2 ML VIAL IVP PRN (11:59)
[2024-04-12] MEDS ORDERED: IPRATROPIUM-ALBUTEROL 3 ML NEB INHALATION PRN (11:59)
[2024-04-12] MEDS ORDERED: BENZOCAINE/MENTHOL LOZENG 1 EACH LOZENGE MUCOUS MEM PRN (11:59)
[2024-04-12] MEDS ORDERED: hydrALAZINE HCL 20 MG/ML 1 ML VIAL IVP PRN (11:59)
[2024-04-12] MEDS ORDERED: DEXTROSE 50% SYRINGE 50 ML IVP PRN ×2 (11:59)
[2024-04-12] MEDS ORDERED: Magnesium Replacement Protocol 1 EACH MISC MISCELLANE PRN (11:59)
--- NOTE | 2024-04-12 12:05 | P.OP ---
Date of Procedure: 04/12/24 Preoperative Diagnosis: Coronary artery disease, unstable angina Postoperative Diagnosis: Same Procedure(s) Performed: Off-pump CABG x 2 with CABRERA to LAD, left radial artery to obtuse marginal with endovascular harvest of the left radial artery and occlusion of the left atrial appendage with a 35 mm AtriCure clip Implants: 35 mm AtriCure clip Anesthesia: LISA Surgeon: Can Mojica Hydropulper Operator #1: Kentrell Kwok Hydropulper Operator #2: Lisa Zarate Estimated Blood Loss (ml): 300 IV fluids (ml): 1,500 Urine output (ml): 300 Pathology: none sent Condition: stable Disposition: ICU Indications for Procedure: 68-year-old female with morbid obesity presented with chest pain underwent cardiac catheterization and was found to have tight stenosis of the distal left main coronary artery. She continued to have intermittent chest pain at rest. She was boarded for CABG at the next available surgical time. Operative Findings: Arterial conduits were good. Coronary targets were also good. The left anterior descending had diffuse spotty plaques but had an excellent lumen. Description of Procedure: Patient was brought to the operating room and placed supine on the table. General anesthesia was induced. PEYTON probe was placed. PEYTON did not want to pass from the distal esophagus into the stomach and was not forced to do so. Preoperative monitoring lines have been placed in the preop holding area. The anterior torso bilateral lower extremities and left upper extremity were sterilely prepped and draped in standard fashion. Left radial artery was harvested with endovascular harvest technique. It was a good conduit although somewhat small at the wrist. The more proximal portion was what was used. It was prepared on the back table. Simultaneous sternotomy was performed. The left hemisternum was retracted upwards and the left internal mammary artery was harvested on a vascularized pedicle, left intact on its origin from the subclavian and divided distally. Left pleural space was drained with a 32 Khmer chest tube. Standard sternal retractor was placed. Pericardium was opened in the midline. The heart was exposed with pericardial sutures. The patient was systemically heparinized and ACT's were maintained greater than 250 during grafting. 35 mm AtriCure clip was applied at the base of the left atrial appendage. CABRERA was tunneled into the pericardium. The LAD was stabilized in its midportion and opened. Blood flow was controlled with a 1.5 mm flow- through, it was a 1.75 mm vessel. End-to-side anastomosis between the CABRERA and the LAD was performed with running 8-0 Prolene suture. On completion of the anastomosis, the flow through was removed effectively probing the proximal distal portion of the anastomosis. Suture was tied with good result and hemostasis and inflow open. ABDIRIZAK pedicle was tacked surrounding epicardium with 6-0 silk. The graft lay well with excellent length and no kinking or narrowing and an excellent lara. The lateral wall was exposed. Major marginal branch was dissected out and stabilized. It was opened and blood flow controlled with a 2 mm flow-through. It was a 2 mm vessel. End-to-side anastomosis between the left radial artery and the obtuse marginal coronary artery was performed with running 7-0 Prolene suture. On completion of the anastomosis the flow through was removed effectively probing the proximal and distal portion of the anastomosis. Suture was tied with good result and hemostasis. There was excellent backflow into the radial artery controlled with a bulldog clamp. The heart was lowered in anatomic position. Because the 1 end of the radial was very small it was decided to cut it a little shorter and use the larger portion and take it off the left internal mammary artery. Bulldog clamps were placed on the mammary artery proximally and distally. It was opened longitudinally as it entered the pericardial space. Side and anastomosis between the internal mammary artery and the left radial artery was performed with running 8-0 Prolene suture. On completion of the anastomosis it was de-aired by backbleeding and the suture was tied with good result and hemostasis and the inflow open. Good hemostasis was noted at all surgical sites. Heparin was reversed with protamine. After assuring good hemostasis, the mediastinum was irrigated with antibiotic solution and drained with a 36 Khmer chest tube. Sternum was reapproximated with 4 sternal wires and then secured with 3 plates each with 4 screws. Fascia was closed with 0 Ethibond. Subcutaneous and subcuticular layers were closed with layers of Vicryl suture. Skin glue and dry sterile dressings were applied and the patient was transferred to ICU in stable condition. No blood transfusions were required. She was on no inotropic support.
[2024-04-12] MEDS: IPRATROPIUM-ALBUTEROL 3 ML NEB INHALATION SCH ×2 (12:11→22:45)
[2024-04-12 12:15] LABS: Glucose,Whole Blood 73 mg/dL (70-110)
[2024-04-12] MEDS: CLEVIDIPINE BUTYRATE 25 MG in EMPTY BAG 1 BAG IV SCH (12:38)
[2024-04-12] MEDS: NITROGLYCERIN-D5W PMX 50 MG in DEXTROSE/WATER 1 250ML.BAG IV SCH (12:39)
[2024-04-12] MEDS: SODIUM CHLORIDE 0.9% 1,000 ML IV SCH (12:39)
[2024-04-12] MEDS: ACETAMINOPHEN IV (For NPO) 1,000 MG in EMPTY BAG 1 BAG IVPB SCH (12:41)
[2024-04-12 12:46] LABS: ABG Base Excess -2.6 mmol/L; ABG HCO3 23 mmol/L (21-25); ABG PCO2 44 mmHg (35-45); ABG PH 7.33 (7.35-7.45); ABG PO2 241 mmHg (83-108); ABG TCO2 25 mmol/L (19-24)
[2024-04-12 12:46] LABS: MCHC 33.2 g/dL (31.0-37.0); MCV 93.3 fL (80.0-100.0); Mean Platelet Volume 9.6; RBC 2.57 m/uL (3.80-5.40); RDW 14.2 % (11.5-15.5); WBC 5.7 k/uL (3.8-10.6)
[2024-04-12 12:48] LABS: Allen Test Performed? no
--- NOTE | 2024-04-12 12:50 | XR ---
EXAMINATION TYPE: XR chest 1V portable DATE OF EXAM: 04/12/2024 12:42 PM COMPARISON: CTA thoracoabdominal pelvis aorta 04/03/2024, chest [id number] TECHNIQUE: XR chest 1V portable Portable AP radiograph of the chest. CLINICAL INDICATION:Female, 68 years old with history of Post Operative Cardiac Surgery; FINDINGS: Patient is rotated which limits dilation. Lungs/Pleura: Possible small pleural effusion. No pneumothorax. Linear left basilar atelectasis. Pulmonary vascularity: Central pulmonary vascular congestion. Heart/mediastinum: Cardiomediastinal silhouette is enlarged. Postoperative changes are present in th e mediastinum. Musculoskeletal: Postsurgical changes of the sternum with median sternotomy wires and fixation clips. Other findings: None Lines/Tubes: Endotracheal tube with distal tip 1.0 cm above the evelyn Nasogastric tube with its distal tip and side-port projecting under the diaphragm and projecting over the gastric lumen. Left thoracotomy tube is present. Inferior approach mediastinal drainage catheter identified. Right IJ Rudyard-Nika catheter distal tip in the region of the main/right pulmonary artery. IMPRESSION: 1. Post cardiac surgical changes with mild pulmonary vascular congestion. No pneumothorax. Possible small left pleural effusion. 2. Support lines and tubes as described above. Recommend retraction of endotracheal tube approximate ly 2 cm. [facility], , 04/12/2024 12:48 PM
[2024-04-12 12:51] LABS: Ionized Calcium 4.6 mg/dL (4.5-5.3)
[2024-04-12 12:54] LABS: INR 1.4 (<1.2); Partial Thromboplastin Time 32.7 sec (22.0-30.0); Prothrombin Time 14.5 sec (10.0-12.5)
[2024-04-12 12:59] LABS: ALT 27 U/L (4-34); AST 25 U/L (14-36); African American GFR (CKD) 74 (>60 ml/min/1.73 sqM); Albumin 3.3 g/dL (3.5-5.0); Alkaline Phosphatase 31 U/L (38-126); Anion Gap 6 mmol/L; Blood Urea Nitrogen 25 mg/dL (7-17); Calcium 7.7 mg/dL (8.4-10.2); Carbon Dioxide 22 mmol/L (22-30); Chloride 112 mmol/L (98-107); Glucose 69 mg/dL (74-99); Magnesium 2.2 mg/dL (1.6-2.3); Non-African American GFR(CKD) 64 (>60 ml/min/1.73 sqM); Potassium 4.1 mmol/L (3.5-5.1); Sodium 140 mmol/L (137-145); Total Bilirubin 0.3 mg/dL (0.2-1.3); Total Protein 4.8 g/dL (6.3-8.2)
[2024-04-12 13:06] LABS: Platelet Count 97 k/uL (150-450)
[2024-04-12 13:09] LABS: Band Neutrophils % 2 %; Eosinophils # (M) 0.17 k/uL (0-0.7); Lymphocytes # (M) 1.71 k/uL (1.0-4.8); Metamyelocytes # (M) 0.17 k/uL (0); Metamyelocytes % 3 %; Monocytes # (M) 0.34 k/uL (0-1.0); Myelocytes # (M) 0.11 k/uL (0); Myelocytes % 2 %; Neutrophils % (M) 56 %; Nucleated Red Blood Cells 0 /100 WBC (0-0); Total Cells Counted 200
[2024-04-12 13:10] LABS: RBC Morphology Normal
[2024-04-12 13:19] LABS: Glucose,Whole Blood 75 mg/dL (70-110)
[2024-04-12] MEDS: AMIODARONE 360 MG in DEXTROSE 5% IN WATER 200 ML IV ONE (13:32)
[2024-04-12 14:17] LABS: Glucose,Whole Blood 79 mg/dL (70-110)
[2024-04-12 15:10] LABS: Glucose,Whole Blood 87 mg/dL (70-110)
[2024-04-12 15:16] LABS: Basophils # (A) 0.1 k/uL (0-0.2); Basophils % (A) 1 %; Eosinophils # (A) 0.2 k/uL (0-0.7); Eosinophils % (A) 2 %; HCT 24.4 % (34.0-46.0); HGB 7.9 gm/dL (11.4-16.0); Lymphocytes # (A) 2.4 k/uL (1.0-4.8); Lymphocytes % (A) 25 %; MCH 30.2 pg (25.0-35.0); MCHC 32.5 g/dL (31.0-37.0); MCV 92.9 fL (80.0-100.0); Mean Platelet Volume 10.7; Monocytes # (A) 0.5 k/uL (0-1.0); Monocytes % (A) 5 %; Neutrophils # (A) 6.6 k/uL (1.3-7.7); Neutrophils % (A) 68 %; Platelet Count 129 k/uL (150-450); RBC 2.63 m/uL (3.80-5.40); RDW 14.6 % (11.5-15.5); WBC 9.7 k/uL (3.8-10.6)
--- NOTE | 2024-04-12 15:17 | P.CNPUL ---
History of Present Illness Consult date: 04/12/24 Requesting physician: Can Mojica Reason for consult: other (Mechanical ventilator/critical care management) Chief complaint: Coronary artery disease, left main disease History of present illness: This is a 68-year-old female patient with a history of hypertension, hyperlipidemia, anaphylactic reaction to statins, diabetes mellitus, COPD, obstructive sleep apnea on home CPAP, chronic kidney disease, chronic pain syndrome she presented here to the hospital with chest pain and was found to have a non-ST segment elevation myocardial infarction. Catheterization on 04/09/2024 revealed critical disease involving the distal left main and ostial left circumflex and LAD with eccentric plaque appears to be calcified approaching almost 80%. Today she had undergone a off-pump coronary artery bypass grafting x 2 with a CABRERA to the LAD, left radial to the OM. She is seen in consultation shortly after her arrival to the intensive care unit. She is intubated on the mechanical ventilator and assist-control mode at a rate of 16, tidal volume 350, FiO2 60% and a PEEP of 10. Arterial blood gases revealed a PaO2 of 241, pCO2 44, pH 7.33. She is currently on a nitroglycerin drip at 5 mcg/min. Cleviprex drip at 1 mg/hr. Normal saline at 50 mL/h and propofol at 30 mcg/kg/min. Right IJ Buckner-Nika catheter in place. Cardiac output 5.9. Cardiac index 3.2. PA pressures 36/19. CVP 10. Mediastinal and left chest tubes are in place. Chest x-ray reveals postsurgical changes with mild p ulmonary vascular congestion. No pneumothorax. Small left pleural effusion. White count 5.7. Hemoglobin 8.0. Platelets 97,000. INR 1.4. Sodium 140. Potassium 4.1. Bicarb 22. BUN 25. Creatinine 0.93. Glucose 69. Albumin 3.3. AST 25. ALT 27. Review of Systems ROS unobtainable: due to endotracheal tube Past Medical History Past Medical History: Asthma, Coronary Artery Disease (CAD), Chest Pain / Angina, COPD, Diabetes Mellitus, Deep Vein Thrombosis (DVT), GERD/Reflux, Hyperlipidemia, Hypertension, Myocardial Infarction ([place]), Musculoskeletal Disorder, Osteoarthritis (OA), Renal Disease, Sleep Apnea/CPAP/BIPAP Additional Past Medical History / Comment(s): PUD, colitis, benign colon polyps, DVT L leg, migraines, ANDREW - uses cpap. kidney stones, CKD stage II, vertigo, recurrent L ear infections/ruptured eardrum, TMJ, mild CAD, back prob - NT Lt arm, leg. Edema BLE. covid + 01/19/2021; left foot drop Last Myocardial Infarction Date:: 2009 History of Any Multi-Drug Resistant Organisms: None Reported Past Surgical History: Appendectomy, Cholecystectomy, Ear Surgery, Heart Catheterization, Hysterectomy, Joint Replacement, Orthopedic Surgery, Tonsillectomy Additional Past Surgical History / Comment(s): R/L knee arthroscopies, L ear patch/graft, EGD, colonoscopy/polypectomy, throat abscess. Right knee replacement, back surgery, Past Anesthesia/Blood Transfusion Reactions: Postoperative Nausea & Vomiting (PONV) Past Psychological History: Anxiety Additional Psychological History / Comment(s): Spouse has cancer Smoking Status: Never smoker Past Alcohol Use History: None Reported Past Drug Use History: None Reported - Past Family History Sister(s) History Unknown: Yes Family Medical History: Cancer Father History Unknown: Yes Family Medical History: Cancer Additional Family Medical History / Comment(s): Throat and brain cancer. Father was an alcoholic. Mother History Unknown: Yes Family Medical History: Liver Disease Additional Family Medical History / Comment(s): Mother is . She was an alcoholic. Medications and Allergies Home Medications Medication Instructions Recorded Confirmed Type Montelukast [Singulair] 10 mg PO HS 10/17/20 04/03/24 History Aspirin [Adult Low Dose Aspirin EC] 81 mg PO DAILY 04/21/22 04/03/24 History HYDROcodone/APAP 5-325MG [[place] 1 tab PO TID 05/21/23 04/03/24 History 5-325] Bumetanide [BUMEX] 1 mg PO DAILY 90 Days #90 tab 05/26/23 04/03/24 Rx atenoloL [Tenormin] 50 mg PO BID 90 Days #180 tab 05/26/23 04/03/24 Rx Azelastine HCl [Astelin Nasal 2 sprays NASAL BID 09/26/23 04/03/24 History [place]] Pantoprazole [Protonix] 40 mg PO BID 09/26/23 04/03/24 History Dicyclomine [Bentyl] 10 mg PO TID 04/03/24 04/03/24 History Gabapentin 300 mg PO TID 04/03/24 04/03/24 History INSULIN LISPRO (humaLOG) [humaLOG] See Protocol SQ AC-TID 04/03/24 04/03/24 His tory Insulin Glargine,Hum.rec.anlog 30 units SQ HS 04/03/24 04/03/24 History [Lantus Solostar Pen] Amoxic-Pot Clav 875-125Mg 1 each PO Q12HR 7 Days #14 tab 04/08/24 Rx [Augmentin 875-125] Budesonide [Pulmicort] 0.5 mg INHALATION RT-BID 30 Days 04/08/24 Rx #60 ml Dapagliflozin Propanediol [Farxiga] 10 mg PO DAILY 30 Days #30 tab 04/08/24 Rx INSULIN ASPART (NovoLOG) [NovoLOG 0 unit SQ ACHS each 04/08/24 Rx (formulary)] Ipratropium-Albuterol Nebulize 3 ml INHALATION RT-QID 30 Days 04/08/24 Rx [Duoneb 0.5 mg-3 mg/3 ml Soln] #120 each Loratadine [Claritin] 10 mg PO DAILY tab 04/08/24 Rx amLODIPine [Norvasc] 10 mg PO DAILY 30 Days #30 tab 04/08/24 Rx methylPREDNISolone Dose Pack 24 mg PO DAILY 5 Days #1 tab 04/08/24 Rx [Medrol Dose Pack] Allergies Allergy/AdvReac Type Severity Reaction Status Date / Time Iodinated Contrast Media Allergy Severe Anaphylaxis Verified 04/03/24 19:10 [Iodinated Contrast Media - IV Dye] iodine Allergy Anaphylaxis Verified 04/03/24 19:10 Rrtocvr-UBK-XdK Reductase Allergy Anaphylaxis Verified 04/03/24 19:10 Inhibitor [Uzsflyv-Zdr-Wsl Reductase Inhibitor] Physical Exam Vitals: Vital Signs Temp Pulse Pulse Pulse Resp BP BP 04/12/24 14:00 96.4 F L 66 16 04/12/24 13:45 65 16 04/12/24 13:30 65 16 04/12/24 13:15 64 19 04/12/24 13:00 95.4 F L 64 16 04/12/24 12:48 04/12/24 12:45 62 16 04/12/24 12:30 61 16 04/12/24 12:15 77 16 04/12/24 12:12 04/12/24 06:12 97.2 F L 65 18 115/59 04/12/24 04:55 68 127/68 126/74 04/12/24 04:00 97.6 F 65 18 111/67 04/11/24 23:41 98.0 F 72 18 131/76 04/11/24 21:21 75 04/11/24 21:15 97.9 F 73 18 111/59 04/11/24 21:05 73 04/11/24 16:00 97.6 F 80 17 112/55 04/11/24 15:24 80 18 04/11/24 15:14 78 18 Pulse Ox FiO2 04/12/24 14:00 99 60 04/12/24 13:45 99 04/12/24 13:30 99 04/12/24 13:15 100 04/12/24 13:00 100 60 04/12/24 12:48 60 04/12/24 12:45 100 04/12/24 12:30 100 04/12/24 12:15 100 100 04/12/24 12:12 100 04/12/24 06:12 95 04/12/24 04:55 04/12/24 04:00 97 04/11/24 23:41 97 04/11/24 21:21 04/11/24 21:15 98 04/11/24 21:05 04/11/24 16:00 97 04/11/24 15:24 04/11/24 15:14 Intake and Output 04/12/24 04/12/24 04/12/24 06:59 14:59 22:59 Intake Total 0 307.924 Output Total 200 725 Balance -200 -417.076 Intake: IV 0 242 ACETAMINOPHEN IV (For NPO 50 ) 1,000 mg In Empty Bag 1 bag @ 400 mls/hr IVPB Q6HR [facility] Rx#:[id number] CO/CI 30 PA/ART/CVP 9 Sodium Chloride 0.9% 1, 150 000 ml @ 50 mls/hr IV . Q20H [facility] Rx#:[id number] Intake, IV Titration 65.924 Amount Clevidipine Butyrate 25 4.801 mg In Empty Bag 1 bag @ 1 MG/HR 2 mls/hr IV .Q24H [facility] Rx#:[id number] propofoL 1,000 mg In 61.123 Empty Bag 1 bag @ Titrate IV .Q0M [facility] Rx#: [id number] Output: Chest Tube Drainage 75 Chest Tube Left Lateral 25 Chest Chest Tube Mediastinal 50 Urine 200 350 Estimated Blood Loss 300 Other: Voiding Method Toilet Indwelling Catheter Weight 88.2 kg ABP, PAP, CO, CI - Last 8 Hours Arterial Blood Pressure 128/47 Arterial Blood Pressure 128/47 Arterial Blood Pressure 125/47 Arterial Blood Pressure 129/48 Arterial Blood Pressure 132/49 Arterial Blood Pressure 150/57 Arterial Blood Pressure 153/56 Arterial Blood Pressure 142/42 Pulmonary Artery Pressure 35/18 Pulmonary Artery Pressure 34/18 Pulmonary Artery Pressure 36/20 Pulmonary Artery Pressure 36/18 Pulmonary Artery Pressure 37/19 Pulmonary Artery Pressure 36/22 Pulmonary Artery Pressure 38/20 Pulmonary Artery Pressure 38/12 Cardiac Output 5.9 Cardiac Output 5.6 Cardiac Output 5.6 Cardiac Output 5.7 Cardiac Output 4.6 Cardiac Index 3.2 Cardiac Index 3 Cardiac Index 3 Cardiac Index 3.1 Cardiac Index 2.5 GENERAL EXAM: Intubated, sedated 68-year-old female patient on mechanical ventilator, in no apparent distress. HEAD: Normocephalic. EYES: Normal reaction of pupils, equal size. NOSE: Clear with pink turbinates. THROAT: Oral endotracheal and gastric tube secured in place. No erythema or exudates. NECK: Buckner-Nika catheter in place. No masses, no JVD. CHEST: Sternal dressing dry and intact. Heart hugger in place. Mediastinal and left pleural chest tubes in place. LUNGS: Equal air entry with no crackles, wheeze, rhonchi or dullness. CVS: S1 and S2 normal with no audible murmur, regular rhythm. ABDOMEN: No hepatosplenomegaly, normal bowel sounds, no guarding or rigidity. SPINE: No scoliosis or deformity SKIN: No rashes CENTRAL NERVOUS SYSTEM: Sedated, tone is normal in all 4 extremities. EXTREMITIES: JOSHUA wraps to the bilateral lower extremities. Joshua wrap to the left upper extremity. There is no peripheral edema. No clubbing, no cyanosis. Peripheral pulses are intact. Results - Laboratory Findings CBC and BMP: 04/12/24 12:15 04/12/24 12:15 ABG ABG pH 7.33 (7.35-7.45) L 04/12/24 12:44 ABG pCO2 44 mmHg (35-45) 04/12/24 12:44 ABG pO2 241 mmHg (83-108) H 04/12/24 12:44 ABG O2 Saturation 100.0 % (94-97) H 04/12/24 12:44 PT/INR, D-dimer PT 14.5 sec (10.0-12.5) H 04/12/24 12:15 INR 1.4 (<1.2) H 04/12/24 12:15 D-Dimer 1.19 mg/L FEU (<0.60) H 04/04/24 00:53 Abnormal lab findings: Abnormal Labs 04/03/24 04/03/24 04/03/24 18:54 18:54 18:54 RBC Hgb Hct Plt Count Lymphocytes # Metamyelocytes # (Man) Myelocytes # (Manual) PT INR APTT D-Dimer 1.66 H ABG pH ABG pO2 ABG Total CO2 ABG O2 Saturation ABG Hematocrit Hemoglobin Chloride Carbon Dioxide BUN Creatinine 1.17 H Glucose 222 H POC Glucose (mg/dL) Hemoglobin A1c Calcium Alkaline Phosphatase Troponin I 0.071 H* Total Protein Albumin Cholesterol LDL Cholesterol, Calc Crossmatch 04/03/24 04/04/24 04/04/24 23:21 00:53 00:53 RBC Hgb Hct Plt Count Lymphocytes # Metamyelocytes # (Man) Myelocytes # (Manual) PT INR APTT D-Dimer 1.19 H ABG pH ABG pO2 ABG Total CO2 ABG O2 Saturation ABG Hematocrit Hemoglobin Chloride Carbon Dioxide BUN Creatinine Glucose POC Glucose (mg/dL) Hemoglobin A1c Calcium Alkaline Phosphatase Troponin I 0.077 H* 0.068 H* Total Protein Albumin Cholesterol LDL Cholesterol, Calc Crossmatch 04/04/24 04/04/24 04/04/24 02:55 02:55 03:39 RBC Hgb Hct Plt Count Lymphocytes # Metamyelocytes # (Man) Myelocytes # (Manual) PT INR APTT 73.8 H D-Dimer ABG pH ABG pO2 ABG Total CO2 ABG O2 Saturation ABG Hematocrit Hemoglobin Chloride Carbon Dioxide BUN Creatinine Glucose POC Glucose (mg/dL) 423 H Hemoglobin A1c Calcium Alkaline Phosphatase Troponin I Total Protein Albumin Cholesterol 225.00 H LDL Cholesterol, Calc 155.0 H Crossmatch 10/04/04/24 04/04/24 08:41 10:43 11:33 RBC Hgb Hct Plt Count Lymphocytes # Metamyelocytes # (Man) Myelocytes # (Manual) PT INR APTT 38.9 H D-Dimer ABG pH ABG pO2 ABG Total CO2 ABG O2 Saturation ABG Hematocrit Hemoglobin Chloride Carbon Dioxide BUN Creatinine Glucose POC Glucose (mg/dL) 399 H 329 H Hemoglobin A1c Calcium Alkaline Phosphatase Troponin I Total Protein Albumin Cholesterol LDL Cholesterol, Calc Crossmatch 04/04/24 04/04/24 04/04/24 17:05 17:48 21:55 RBC Hgb Hct Plt Count Lymphocytes # Metamyelocytes # (Man) Myelocytes # (Manual) PT INR APTT 72.5 H D-Dimer ABG pH ABG pO2 ABG Total CO2 ABG O2 Saturation ABG Hematocrit Hemoglobin Chloride Carbon Dioxide BUN Creatinine Glucose POC Glucose (mg/dL) 297 H 433 H Hemoglobin A1c Calcium Alkaline Phosphatase Troponin I Total Protein Albumin Cholesterol LDL Cholesterol, Calc Crossmatch 04/05/24 04/05/24 04/05/24 00:39 07:54 12:38 RBC Hgb Hct Plt Count Lymphocytes # Metamyelocytes # (Man) Myelocytes # (Manual) PT INR APTT 32.4 H D-Dimer ABG pH ABG pO2 ABG Total CO2 ABG O2 Saturation ABG Hematocrit Hemoglobin Chloride Carbon Dioxide BUN Creatinine Glucose POC Glucose (mg/dL) 254 H 265 H Hemoglobin A1c Calcium Alkaline Phosphatase Troponin I Total Protein Albumin Cholesterol LDL Cholesterol, Calc Crossmatch 04/05/24 04/05/24 04/06/24 17:07 20:52 06:13 RBC Hgb Hct Plt Count Lymphocytes # Metamyelocytes # (Man) Myelocytes # (Manual) PT INR APTT D-Dimer ABG pH ABG pO2 ABG Total CO2 ABG O2 Saturation ABG Hematocrit Hemoglobin Chloride Carbon Dioxide BUN Creatinine Glucose POC Glucose (mg/dL) 269 H 204 H 294 H Hemoglobin A1c Calcium Alkaline Phosphatase Troponin I Total Protein Albumin Cholesterol LDL Cholesterol, Calc Crossmatch 04/06/24 04/06/24 04/06/24 10:34 11:10 16:14 RBC Hgb Hct Plt Count Lymphocytes # Metamyelocytes # (Man) Myelocytes # (Manual) PT INR APTT D-Dimer ABG pH ABG pO2 ABG Total CO2 ABG O2 Saturation ABG Hematocrit Hemoglobin Chloride 109 H Carbon Dioxide BUN 31 H Creatinine 1.24 H Glucose 202 H POC Glucose (mg/dL) 210 H 334 H Hemoglobin A1c Calcium Alkaline Phosphatase Troponin I Total Protein Albumin Cholesterol LDL Cholesterol, Calc Crossmatch 04/06/24 04/07/24 04/07/24 20:08 06:14 11:07 RBC Hgb Hct Plt Count Lymphocytes # Metamyelocytes # (Man) Myelocytes # (Manual) PT INR APTT D-Dimer ABG pH ABG pO2 ABG Total CO2 ABG O2 Saturation ABG Hematocrit Hemoglobin Chloride Carbon Dioxide BUN Creatinine Glucose POC Glucose (mg/dL) 293 H 266 H 251 H Hemoglobin A1c Calcium Alkaline Phosphatase Troponin I Total Protein Albumin Cholesterol LDL Cholesterol, Calc Crossmatch 04/07/24 04/07/24 04/08/24 16:08 20:17 06:08 RBC Hgb Hct Plt Count Lymphocytes # Metamyelocytes # (Man) Myelocytes # (Manual) PT INR APTT D-Dimer ABG pH ABG pO2 ABG Total CO2 ABG O2 Saturation ABG Hematocrit Hemoglobin Chloride Carbon Dioxide BUN Creatinine Glucose POC Glucose (mg/dL) 267 H 238 H 164 H Hemoglobin A1c Calcium Alkaline Phosphatase Troponin I Total Protein Albumin Cholesterol LDL Cholesterol, Calc Crossmatch 04/08/24 04/08/24 04/08/24 11:50 16:34 17:23 RBC Hgb Hct Plt Count Lymphocytes # Metamyelocytes # (Man) Myelocytes # (Manual) PT INR APTT D-Dimer ABG pH ABG pO2 ABG Total CO2 ABG O2 Saturation ABG Hematocrit Hemoglobin Chloride Carbon Dioxide 20 L BUN 33 H Creatinine 1.16 H Glucose 311 H POC Glucose (mg/dL) 166 H 289 H Hemoglobin A1c Calcium Alkaline Phosphatase Troponin I Total Protein Albumin Cholesterol LDL Cholesterol, Calc Crossmatch 04/08/24 04/09/24 04/09/24 20:07 06:11 08:27 RBC Hgb Hct Plt Count Lymphocytes # Metamyelocytes # (Man) Myelocytes # (Manual) PT INR APTT D-Dimer ABG pH ABG pO2 ABG Total CO2 ABG O2 Saturation ABG Hematocrit Hemoglobin Chloride 109 H Carbon Dioxide BUN 34 H Creatinine 1.26 H Glucose 180 H POC Glucose (mg/dL) 229 H 173 H Hemoglobin A1c Calcium Alkaline Phosphatase Troponin I Total Protein Albumin Cholesterol LDL Cholesterol, Calc Crossmatch 04/09/24 04/09/24 04/09/24 11:10 16:16 19:39 RBC Hgb Hct Plt Count Lymphocytes # 0.9 L Metamyelocytes # (Man) Myelocytes # (Manual) PT INR APTT D-Dimer ABG pH ABG pO2 ABG Total CO2 ABG O2 Saturation ABG Hematocrit Hemoglobin Chloride Carbon Dioxide BUN Creatinine Glucose POC Glucose (mg/dL) 181 H 185 H Hemoglobin A1c Calcium Alkaline Phosphatase Troponin I Total Protein Albumin Cholesterol LDL Cholesterol, Calc Crossmatch 04/09/24 04/09/24 04/10/24 19:39 20:07 05:28 RBC Hgb Hct Plt Count Lymphocytes # 0.9 L Metamyelocytes # (Man) Myelocytes # (Manual) PT INR 1.2 H APTT 92.3 H D-Dimer ABG pH ABG pO2 ABG Total CO2 ABG O2 Saturation ABG Hematocrit Hemoglobin Chloride Carbon Dioxide BUN Creatinine Glucose POC Glucose (mg/dL) 315 H Hemoglobin A1c Calcium Alkaline Phosphatase Troponin I Total Protein Albumin Cholesterol LDL Cholesterol, Calc Crossmatch 04/10/24 04/10/24 04/10/24 05:28 06:25 11:16 RBC Hgb Hct Plt Count Lymphocytes # Metamyelocytes # (Man) Myelocytes # (Manual) PT INR APTT 110.8 H* D-Dimer ABG pH ABG pO2 ABG Total CO2 ABG O2 Saturation ABG Hematocrit Hemoglobin Chloride Carbon Dioxide BUN Creatinine Glucose POC Glucose (mg/dL) 210 H 184 H Hemoglobin A1c Calcium Alkaline Phosphatase Troponin I Total Protein Albumin Cholesterol LDL Cholesterol, Calc Crossmatch 04/10/24 04/10/24 04/10/24 11:17 11:17 16:03 RBC Hgb Hct Plt Count Lymphocytes # Metamyelocytes # (Man) Myelocytes # (Manual) PT INR APTT 62.2 H D-Dimer ABG pH ABG pO2 ABG Total CO2 ABG O2 Saturation ABG Hematocrit Hemoglobin Chloride Carbon Dioxide BUN 32 H Creatinine 1.18 H Glucose 189 H POC Glucose (mg/dL) Hemoglobin A1c 8.5 H Calcium Alkaline Phosphatase Troponin I Total Protein 5.9 L Albumin Cholesterol LDL Cholesterol, Calc Crossmatch 04/10/24 04/10/24 04/11/24 16:15 20:17 06:13 RBC Hgb Hct Plt Count Lymphocytes # Metamyelocytes # (Man) Myelocytes # (Manual) PT INR APTT D-Dimer ABG pH ABG pO2 ABG Total CO2 ABG O2 Saturation ABG Hematocrit Hemoglobin Chloride Carbon Dioxide BUN Creatinine Glucose POC Glucose (mg/dL) 230 H 268 H 148 H Hemoglobin A1c Calcium Alkaline Phosphatase Troponin I Total Protein Albumin Cholesterol LDL Cholesterol, Calc Crossmatch 04/11/24 04/11/24 04/11/24 06:43 11:13 11:22 RBC Hgb Hct Plt Count Lymphocytes # Metamyelocytes # (Man) Myelocytes # (Manual) PT INR APTT 60.6 H D-Dimer ABG pH ABG pO2 ABG Total CO2 ABG O2 Saturation ABG Hematocrit Hemoglobin Chloride Carbon Dioxide BUN Creatinine Glucose POC Glucose (mg/dL) 278 H Hemoglobin A1c Calcium Alkaline Phosphatase Troponin I Total Protein Albumin Cholesterol LDL Cholesterol, Calc Crossmatch See Detail 04/11/24 04/11/24 04/12/24 16:03 20:01 00:10 RBC Hgb Hct Plt Count Lymphocytes # Metamyelocytes # (Man) Myelocytes # (Manual) PT INR APTT D-Dimer ABG pH ABG pO2 ABG Total CO2 ABG O2 Saturation ABG Hematocrit Hemoglobin Chloride Carbon Dioxide BUN Creatinine Glucose POC Glucose (mg/dL) 370 H 296 H 139 H Hemoglobin A1c Calcium Alkaline Phosphatase Troponin I Total Protein Albumin Cholesterol LDL Cholesterol, Calc Crossmatch 04/12/24 04/12/24 04/12/24 04:05 05:34 06:47 RBC Hgb Hct Plt Count Lymphocytes # Metamyelocytes # (Man) Myelocytes # (Manual) PT INR APTT D-Dimer ABG pH ABG pO2 ABG Total CO2 ABG O2 Saturation ABG Hematocrit Hemoglobin Chloride Carbon Dioxide BUN Creatinine Glucose POC Glucose (mg/dL) 123 H 115 H 111 H Hemoglobin A1c Calcium Alkaline Phosphatase Troponin I Total Protein Albumin Cholesterol LDL Cholesterol, Calc Crossmatch 04/12/24 04/12/24 04/12/24 08:55 08:59 10:02 RBC Hgb Hct Plt Count Lymphocytes # Metamyelocytes # (Man) Myelocytes # (Manual) PT INR APTT D-Dimer ABG pH ABG pO2 152 H ABG Total CO2 ABG O2 Saturation 98.3 H 98.4 H 98.9 H ABG Hematocrit 26 L 29 L 29 L Hemoglobin 8.5 L 9.5 L 9.5 L Chloride Carbon Dioxide BUN Creatinine Glucose POC Glucose (mg/dL) Hemoglobin A1c Calcium Alkaline Phosphatase Troponin I Total Protein Albumin Cholesterol LDL Cholesterol, Calc Crossmatch 04/12/24 04/12/24 04/12/24 11:03 11:39 12:15 RBC 2.57 L Hgb 8.0 L D Hct 24.0 L Plt Count 97 L Lymphocytes # Metamyelocytes # (Man) 0.17 H Myelocytes # (Manual) 0.11 H PT INR APTT D-Dimer ABG pH ABG pO2 125 H 78 L ABG Total CO2 ABG O2 Saturation 98.7 H ABG Hematocrit 26 L 24 L Hemoglobin 8.4 L 7.7 L Chloride Carbon Dioxide BUN Creatinine Glucose POC Glucose (mg/dL) Hemoglobin A1c Calcium Alkaline Phosphatase Troponin I Total Protein Albumin Cholesterol LDL Cholesterol, Calc Crossmatch 04/12/24 04/12/24 04/12/24 12:15 12:15 12:44 RBC Hgb Hct Plt Count Lymphocytes # Metamyelocytes # (Man) Myelocytes # (Manual) PT 14.5 H INR 1.4 H APTT 32.7 H D-Dimer ABG pH 7.33 L ABG pO2 241 H ABG Total CO2 25 H ABG O2 Saturation 100.0 H ABG Hematocrit Hemoglobin 7.9 L Chloride 112 H Carbon Dioxide BUN 25 H Creatinine Glucose 69 L POC Glucose (mg/dL) Hemoglobin A1c Calcium 7.7 L Alkaline Phosphatase 31 L Troponin I Total Protein 4.8 L Albumin 3.3 L Cholesterol LDL Cholesterol, Calc Crossmatch - Diagnostic Findings Chest x-ray: image reviewed Assessment and Plan Assessment: Non-ST segment elevation myocardial infarction, significant coronary artery disease. Status post coronary artery bypass grafting x 2 utilizing a CABRERA to the LAD, left radial artery to the OM1. Postoperative day #0 Mechanical ventilator management, expected outcome History of coronary artery disease Hypertension Hyperlipidemia Diabetes mellitus Chronic obstructive pulmonary disease Obstructive sleep apnea utilizing home CPAP Chronic kidney disease Chronic pain syndrome History of anaphylactic reaction to statins Plan: The patient was seen and evaluated Chest x-ray, ABGs, labs and medications reviewed Appropriate ventilator adjustments were made Plan for early extubation protocol as tolerated Plan to extubate to BiPAP due to severe obstructive sleep apnea Bronchodilators initiated Heparin for DVT prophylaxis Protonix for GI prophylaxis We will continue to follow and make further recommendations based on her clinical status I have personally seen and examined the patient, performed the documentation and the assessment and plan as written. Number of minutes spent on the visit: 20 Dictation was produced using Dragon dictation software. Please excuse any grammatical, word or spelling errors.
[2024-04-12] MEDS: DEXMEDETOMIDINE/0.9% NACL(PMX) 400 MCG in EMPTY BAG 1 BAG IV SCH (15:28)
[2024-04-12] MEDS: HEPARIN SODIUM,PORCINE 5,000 UNIT/ML 1 ML VIAL SQ SCH (15:58)
[2024-04-12 16:28] LABS: Glucose,Whole Blood 108 mg/dL (70-110)
[2024-04-12 17:55] LABS: Glucose,Whole Blood 97 mg/dL (70-110)
[2024-04-12 18:04] LABS: Basophils % (A) 0 %; Eosinophils # (A) 0.1 k/uL (0-0.7); Eosinophils % (A) 2 %; HCT 24.2 % (34.0-46.0); HGB 8.1 gm/dL (11.4-16.0); Lymphocytes # (A) 1.1 k/uL (1.0-4.8); Lymphocytes % (A) 16 %; MCH 31.2 pg (25.0-35.0); MCHC 33.6 g/dL (31.0-37.0); MCV 92.8 fL (80.0-100.0); Mean Platelet Volume 9.6; Monocytes # (A) 0.4 k/uL (0-1.0); Monocytes % (A) 6 %; Neutrophils # (A) 5.1 k/uL (1.3-7.7); Neutrophils % (A) 75 %; Platelet Count 112 k/uL (150-450); RBC 2.61 m/uL (3.80-5.40); RDW 14.2 % (11.5-15.5); WBC 6.8 k/uL (3.8-10.6)
[2024-04-12 18:19] LABS: ABG Base Excess -2.8 mmol/L; ABG HCO3 23 mmol/L (21-25); ABG Oxygen Saturation 98.6 % (94-97); ABG PCO2 41 mmHg (35-45); ABG PH 7.35 (7.35-7.45); ABG PO2 102 mmHg (83-108); ABG TCO2 24 mmol/L (19-24)
[2024-04-12 18:21] LABS: Allen Test Performed? no
[2024-04-12 19:27] LABS: Glucose,Whole Blood 117 mg/dL (70-110)
--- NOTE | 2024-04-12 19:57 | P.ANPRN ---
Procedure Note - Anesthesia - Invasive Line Right Arterial Line Time Out Performed: Yes Date of Procedure: 04/12/24 Time of Procedure: 07:27 Location of Patient: PreOp Preparation: Sterile Prep Central Line Location: Internal Jugular Ultrasound Used: No Purpose - Visualization and Identification of Vasculature: No Image Stored and Saved: No Narrative: Invasive line placement per sterile protocol utilized.
--- NOTE | 2024-04-12 19:58 | P.ANPRN ---
Procedure Note - Anesthesia - Invasive Line Right [place] Nika Time Out Performed: Yes Date of Procedure: 04/12/24 Time of Procedure: 07:34 Location of Patient: PreOp Preparation: Sterile Prep, Sterile Dressing Central Line Location: Internal Jugular Ultrasound Used: No Purpose - Visualization and Identification of Vasculature: No Image Stored and Saved: No Narrative: Invasive line placement per sterile protocol utilized.
[2024-04-12 20:15] LABS: Glucose,Whole Blood 113 mg/dL (70-110)
[2024-04-12] MEDS: AMIODARONE 450 MG in DEXTROSE 5% IN WATER 250 ML IV SCH (20:28)
[2024-04-12 22:09] LABS: Glucose,Whole Blood 113 mg/dL (70-110)
[2024-04-12] MEDS: SENNOSIDES-DOCUSATE SODIUM 1 EACH TAB PO SCH (22:20)
[2024-04-12 23:59] LABS: Glucose,Whole Blood 108 mg/dL (70-110)
[2024-04-13 02:06] LABS: Glucose,Whole Blood 104 mg/dL (70-110)
[2024-04-13 04:12] LABS: Basophils % (A) 0 %; Eosinophils # (A) 0.3 k/uL (0-0.7); Eosinophils % (A) 2 %; Lymphocytes # (A) 1.5 k/uL (1.0-4.8); Lymphocytes % (A) 15 %; MCH 31.2 pg (25.0-35.0); MCHC 33.5 g/dL (31.0-37.0); MCV 93.1 fL (80.0-100.0); Mean Platelet Volume 9.9; Monocytes # (A) 0.5 k/uL (0-1.0); Monocytes % (A) 5 %; Neutrophils # (A) 8.2 k/uL (1.3-7.7); Neutrophils % (A) 77 %; Platelet Count 156 k/uL (150-450); RBC 3.12 m/uL (3.80-5.40); RDW 14.2 % (11.5-15.5); WBC 10.5 k/uL (3.8-10.6)
[2024-04-13 04:24] LABS: Glucose,Whole Blood 102 mg/dL (70-110)
[2024-04-13 04:32] LABS: HGB 9.7 gm/dL (11.4-16.0)
[2024-04-13 04:33] LABS: Ionized Calcium 4.8 mg/dL (4.5-5.3)
[2024-04-13 04:53] LABS: ALT 28 U/L (4-34); AST 32 U/L (14-36); African American GFR (CKD) >90 (>60 ml/min/1.73 sqM); Alkaline Phosphatase 37 U/L (38-126); Anion Gap 2 mmol/L; Blood Urea Nitrogen 17 mg/dL (7-17); Carbon Dioxide 22 mmol/L (22-30); Chloride 110 mmol/L (98-107); Glucose 97 mg/dL (74-99); Magnesium 1.9 mg/dL (1.6-2.3); Non-African American GFR(CKD) 79 (>60 ml/min/1.73 sqM); Potassium 4.1 mmol/L (3.5-5.1); Sodium 134 mmol/L (137-145); Total Bilirubin 0.5 mg/dL (0.2-1.3); Total Protein 4.8 g/dL (6.3-8.2)
[2024-04-13] MEDS ORDERED: ACETAMINOPHEN TAB 325 MG TAB PO PRN (06:00)
[2024-04-13 06:09] LABS: Glucose,Whole Blood 123 mg/dL (70-110)
[2024-04-13] MEDS: INSULIN REGULAR 100 UNIT in SODIUM CHLORIDE 0.9% 100 ML IV SCH (06:23)
[2024-04-13] MEDS: METOCLOPRAMIDE 5 MG/ML 2 ML VIAL IVP PRN (06:31)
[2024-04-13] MEDS: MAGNESIUM SULFATE-D5W PMX 1 GM in DEXTROSE/WATER 1 100ML.BAG IVPB ONE (06:31)
[2024-04-13 06:52] LABS: Glucose,Whole Blood 117 mg/dL (70-110)
--- NOTE | 2024-04-13 07:35 | XR ---
EXAMINATION TYPE: XR chest 1V portable DATE OF EXAM: 04/13/2024 5:38 AM COMPARISON: 04/12/2024 CLINICAL INDICATION: Female, 68 years old with history of Post Operative Cardiac Surgery, , FINDINGS: Median sternotomy wires and plate and screw fixation with postoperative clips. Right IJ [place]-Nika cat heter tip at the right hilum. Consider pulling back slightly. Low lung volumes after extubation. Amado devora of NG tube. Mediastinal drain and left-sided chest tube are in place. Overlying external artifact along the periphery of the left chest. No appreciable pneumothorax. Interstitial opacities persist. Extensive retrocardiac and left basilar opacity also persists. Cholecystectomy clips. IMPRESSION: 1. Low lung volumes after extubation. 2. Ongoing pulmonary vascular congestion. 3. Ongoing extensive retrocardiac and left lower lung opacity, probably in large part postoperative a telectasis. [facility], , 04/13/2024 7:33 AM
--- NOTE | 2024-04-13 07:57 | P.PN ---
Subjective Progress Note Date: 04/13/24 The patient is a pleasant 68-year-old female patient was admitted to the hospital with a chest discomfort and ruled in for acute coronary event. She underwent a heart catheterization and that revealed severe disease involving the distal left main and also involving the ostial LCx and LAD. She was seen by the thoracic surgery team and she underwent CABG yesterday with CABRERA to LAD and radial artery to OM. April 13, 2024 This is postoperation day #1. The patient was extubated yesterday which she is hemodynamically stable but she is on nitro drip which I am anticipating the nitro drip will be stopped later on today. Otherwise she has been maintaining normal sinus mechanism. Blood pressure has been within normal limits. She is also on amiodarone drip which going to be stopped and started on amiodarone orally later on today as well. She is on dual antiplatelet therapy along with Zetia because she has a statin intolerance. The chest x-ray was reviewed. Examination is remarkable for regular rhythm with a distant heart sounds and clear breathing sounds bilaterally Assessment CAD and status post CABG as described above Statin intolerance Hypertension Dyslipidemia Obesity Plan Continue the current medical regimen Consider stop amiodarone IV and start the patient on amiodarone orally Consider stop the nitro drip later on today as well Continue dual antiplatelet therapy and Zetia Consider starting the patient on PCSK9 inhibitor as an outpatient Follow-up with the patient Objective - Vital Signs Vital signs: Vital Signs Temp 98.1 F 04/12/24 22:00 Pulse 73 04/13/24 07:00 Resp 18 04/13/24 07:00 BP 116/59 04/13/24 05:15 Pulse Ox 93 L 04/13/24 07:00 FiO2 50 04/13/24 04:58 Intake & Output 04/12/24 04/13/24 04/13/24 18:59 06:59 18:59 Intake Total 491.064 8094.3 Output Total 1195 2590 Balance -539.193 -1079.7 Weight 90.8 kg Intake: IV 558 1437 ACETAMINOPHEN IV (For NPO 50 300 ) 1,000 mg In Empty Bag 1 bag @ 400 mls/hr IVPB Q6HR [facility] Rx#:[id number] CO/CI 110 170 Magnesium Sulfate-D5w Pmx 100 1 gm In Dextrose/Water 1 100ml.bag @ 100 mls/hr IVPB ONCE ONE Rx#: [id number] PA/ART/CVP 45 117 Sodium Chloride 0.9% 1, 350 650 000 ml @ 20 mls/hr IV . Q24H [facility] Rx#:[id number] ceFAZolin 2 gm In Sodium 100 Chloride 0.9% 50 ml @ 100 mls/hr IVPB ONCE ONE Rx# :[id number] Intake, IV Titration 97.807 73.3 Amount Clevidipine Butyrate 25 18.668 73.3 mg In Empty Bag 1 bag @ 1 MG/HR 2 mls/hr IV .Q24H [facility] Rx#:[id number] Dexmedetomidine/0.9% NaCl 12.018 (Pmx) 400 mcg In Empty Bag 1 bag @ Titrate IV . Q0M [facility] Rx#:[id number] propofoL 1,000 mg In 67.121 Empty Bag 1 bag @ Titrate IV .Q0M [facility] Rx#: [id number] Output: Chest Tube Drainage 255 1065 Chest Tube Left Lateral 75 475 Chest Chest Tube Mediastinal 180 590 Urine 640 1525 Estimated Blood Loss 300 Other: Voiding Method Indwelling Catheter Indwelling Catheter ABP, PAP, CO, CI - Last Documented Arterial Blood Pressure 143/55 Pulmonary Artery Pressure 30/10 Cardiac Output 4 Cardiac Index 2.2 - Labs CBC & Chem 7: 04/13/24 04:05 04/13/24 04:05 Labs: Abnormal Lab Results - Last 24 Hours (Table) 04/11/24 04/12/24 04/12/24 Range/Units 11:22 08:55 08:59 RBC (3.80-5.40) m/uL Hgb (11.4-16.0) gm/dL Hct (34.0-46.0) % Plt Count (150-450) k/uL Neutrophils # (1.3-7.7) k/uL Metamyelocytes # (Man) (0) k/uL Myelocytes # (Manual) (0) k/uL PT (10.0-12.5) sec INR (<1.2) APTT (22.0-30.0) sec ABG pH (7.35-7.45) ABG pO2 (83-108) mmHg ABG Total CO2 (19-24) mmol/L ABG O2 Saturation 98.3 H 98.4 H (94-97) % ABG Hematocrit 26 L 29 L (34.0-46.0) % Hemoglobin 8.5 L 9.5 L (11.4-16.0) gm/dL Sodium (137-145) mmol/L Chloride (98-107) mmol/L BUN (7-17) mg/dL Glucose (74-99) mg/dL POC Glucose (mg/dL) (70-110) mg/dL Calcium (8.4-10.2) mg/dL Alkaline Phosphatase (38-126) U/L Total Protein (6.3-8.2) g/dL Albumin (3.5-5.0) g/dL Crossmatch See Detail 04/12/24 04/12/24 04/12/24 Range/Units 10:02 11:03 11:39 RBC (3.80-5.40) m/uL Hgb (11.4-16.0) gm/dL Hct (34.0-46.0) % Plt Count (150-450) k/uL Neutrophils # (1.3-7.7) k/uL Metamyelocytes # (Man) (0) k/uL Myelocytes # (Manual) (0) k/uL PT (10.0-12.5) sec INR (<1.2) APTT (22.0-30.0) sec ABG pH (7.35-7.45) ABG pO2 152 H 125 H 78 L (83-108) mmHg ABG Total CO2 (19-24) mmol/L ABG O2 Saturation 98.9 H 98.7 H (94-97) % ABG Hematocrit 29 L 26 L 24 L (34.0-46.0) % Hemoglobin 9.5 L 8.4 L 7.7 L (11.4-16.0) gm/dL Sodium (137-145) mmol/L Chloride (98-107) mmol/L BUN (7-17) mg/dL Glucose (74-99) mg/dL POC Glucose (mg/dL) (70-110) mg/dL Calcium (8.4-10.2) mg/dL Alkaline Phosphatase (38-126) U/L Total Protein (6.3-8.2) g/dL Albumin (3.5-5.0) g/dL Crossmatch 04/12/24 04/12/24 04/12/24 Range/Units 12:15 12:15 12:15 RBC 2.57 L (3.80-5.40) m/uL Hgb 8.0 L D (11.4-16.0) gm/dL Hct 24.0 L (34.0-46.0) % Plt Count 97 L (150-450) k/uL Neutrophils # (1.3-7.7) k/uL Metamyelocytes # (Man) 0.17 H (0) k/uL Myelocytes # (Manual) 0.11 H (0) k/uL PT 14.5 H (10.0-12.5) sec INR 1.4 H (<1.2) APTT 32.7 H (22.0-30.0) sec ABG pH (7.35-7.45) ABG pO2 (83-108) mmHg ABG Total CO2 (19-24) mmol/L ABG O2 Saturation (94-97) % ABG Hematocrit (34.0-46.0) % Hemoglobin (11.4-16.0) gm/dL Sodium (137-145) mmol/L Chloride 112 H (98-107) mmol/L BUN 25 H (7-17) mg/dL Glucose 69 L (74-99) mg/dL POC Glucose (mg/dL) (70-110) mg/dL Calcium 7.7 L (8.4-10.2) mg/dL Alkaline Phosphatase 31 L (38-126) U/L Total Protein 4.8 L (6.3-8.2) g/dL Albumin 3.3 L (3.5-5.0) g/dL Crossmatch 04/12/24 04/12/24 04/12/24 Range/Units 12:44 15:10 18:00 RBC 2.63 L 2.61 L (3.80-5.40) m/uL Hgb 7.9 L 8.1 L (11.4-16.0) gm/dL Hct 24.4 L 24.2 L (34.0-46.0) % Plt Count 129 L 112 L (150-450) k/uL Neutrophils # (1.3-7.7) k/uL Metamyelocytes # (Man) (0) k/uL Myelocytes # (Manual) (0) k/uL PT (10.0-12.5) sec INR (<1.2) APTT (22.0-30.0) sec ABG pH 7.33 L (7.35-7.45) ABG pO2 241 H (83-108) mmHg ABG Total CO2 25 H (19-24) mmol/L ABG O2 Saturation 100.0 H (94-97) % ABG Hematocrit (34.0-46.0) % Hemoglobin 7.9 L (11.4-16.0) gm/dL Sodium (137-145) mmol/L Chloride (98-107) mmol/L BUN (7-17) mg/dL Glucose (74-99) mg/dL POC Glucose (mg/dL) (70-110) mg/dL Calcium (8.4-10.2) mg/dL Alkaline Phosphatase (38-126) U/L Total Protein (6.3-8.2) g/dL Albumin (3.5-5.0) g/dL Crossmatch 04/12/24 04/12/24 04/12/24 Range/Units 18:15 19:15 20:04 RBC (3.80-5.40) m/uL Hgb (11.4-16.0) gm/dL Hct (34.0-46.0) % Plt Count (150-450) k/uL Neutrophils # (1.3-7.7) k/uL Metamyelocytes # (Man) (0) k/uL Myelocytes # (Manual) (0) k/uL PT (10.0-12.5) sec INR (<1.2) APTT (22.0-30.0) sec ABG pH (7.35-7.45) ABG pO2 (83-108) mmHg ABG Total CO2 (19-24) mmol/L ABG O2 Saturation 98.6 H (94-97) % ABG Hematocrit (34.0-46.0) % Hemoglobin 8.3 L (11.4-16.0) gm/dL Sodium (137-145) mmol/L Chloride (98-107) mmol/L BUN (7-17) mg/dL Glucose (74-99) mg/dL POC Glucose (mg/dL) 117 H 113 H (70-110) mg/dL Calcium (8.4-10.2) mg/dL Alkaline Phosphatase (38-126) U/L Total Protein (6.3-8.2) g/dL Albumin (3.5-5.0) g/dL Crossmatch 04/12/24 04/13/24 04/13/24 Range/Units 22:07 04:05 04:05 RBC 3.12 L (3.80-5.40) m/uL Hgb 9.7 L D (11.4-16.0) gm/dL Hct 29.0 L (34.0-46.0) % Plt Count (150-450) k/uL Neutrophils # 8.2 H (1.3-7.7) k/uL Metamyelocytes # (Man) (0) k/uL Myelocytes # (Manual) (0) k/uL PT (10.0-12.5) sec INR (<1.2) APTT (22.0-30.0) sec ABG pH (7.35-7.45) ABG pO2 (83-108) mmHg ABG Total CO2 (19-24) mmol/L ABG O2 Saturation (94-97) % ABG Hematocrit (34.0-46.0) % Hemoglobin (11.4-16.0) gm/dL Sodium 134 L (137-145) mmol/L Chloride 110 H (98-107) mmol/L BUN (7-17) mg/dL Glucose (74-99) mg/dL POC Glucose (mg/dL) 113 H (70-110) mg/dL Calcium 8.0 L (8.4-10.2) mg/dL Alkaline Phosphatase 37 L (38-126) U/L Total Protein 4.8 L (6.3-8.2) g/dL Albumin 3.0 L (3.5-5.0) g/dL Crossmatch 04/13/24 04/13/24 Range/Units 06:08 06:51 RBC (3.80-5.40) m/uL Hgb (11.4-16.0) gm/dL Hct (34.0-46.0) % Plt Count (150-450) k/uL Neutrophils # (1.3-7.7) k/uL Metamyelocytes # (Man) (0) k/uL Myelocytes # (Manual) (0) k/uL PT (10.0-12.5) sec INR (<1.2) APTT (22.0-30.0) sec ABG pH (7.35-7.45) ABG pO2 (83-108) mmHg ABG Total CO2 (19-24) mmol/L ABG O2 Saturation (94-97) % ABG Hematocrit (34.0-46.0) % Hemoglobin (11.4-16.0) gm/dL Sodium (137-145) mmol/L Chloride (98-107) mmol/L BUN (7-17) mg/dL Glucose (74-99) mg/dL POC Glucose (mg/dL) 123 H 117 H (70-110) mg/dL Calcium (8.4-10.2) mg/dL Alkaline Phosphatase (38-126) U/L Total Protein (6.3-8.2) g/dL Albumin (3.5-5.0) g/dL Crossmatch
[2024-04-13 08:19] LABS: Glucose,Whole Blood 131 mg/dL (70-110)
--- NOTE | 2024-04-13 08:23 | P.PN ---
Subjective Progress Note Date: 04/13/24 Principal diagnosis: Coronary artery disease with left main disease, non-STEMI this admission. History of mild nonobstructive coronary artery disease in the LAD from heart cath in 2019, hypertension, hyperlipidemia with anaphylactic reaction to statins, insulin-dependent diabetes, left lower extremity DVT, asthma/COPD, obstructive sleep apnea with home CPAP use, lifelong non-smoker, chronic kidney disease, left foot drop after back surgery, chronic pain with chronic narcotic dependence POD #1 off-pump CABG x 2 with CABRERA to LAD, left radial artery to obtuse marginal with endovascular harvest of the left radial artery and occlusion of the left atrial appendage with a 35 mm AtriCure clip Postoperative acute blood loss anemia, expected given hemodilution The patient was seen and examined this morning sitting up in recliner in the intensive care unit in no acute distress. She was successfully extubated to BiPAP last night at 18:35. Remains in sinus rhythm, hemodynamically stable. Just recently off Cleviprex which she was on all night for hypertension. Patient is very sleepy and dozes off quickly. Does complain of expected postoperative pain when asked although she dozes off quite easily. Remains on 3 L nasal cannula with oxygen saturation in the high 90s. Able to achieve 1000 mL on her incentive spirometry. Currently on IV amiodarone for A-fib prophylaxis, IV nitro for vessel spasm prophylaxis. Right internal jugular [place]/Cordis, right radial arterial line, mediastinal/left pleural chest tubes all remain. No other new concerns. Objective - Vital Signs Vital signs: Vital Signs Temp 98.1 F 04/12/24 22:00 Pulse 73 04/13/24 07:00 Resp 18 04/13/24 07:00 BP 116/59 04/13/24 05:15 Pulse Ox 93 L 04/13/24 07:00 FiO2 50 04/13/24 04:58 Intake & Output 04/12/24 04/13/24 04/13/24 18:59 06:59 18:59 Intake Total 203.239 2788.3 Output Total 1195 2590 Balance -539.193 -1079.7 Weight 90.8 kg Intake: IV 558 1437 ACETAMINOPHEN IV (For NPO 50 300 ) 1,000 mg In Empty Bag 1 bag @ 400 mls/hr IVPB Q6HR [facility] Rx#:[id number] CO/CI 110 170 Magnesium Sulfate-D5w Pmx 100 1 gm In Dextrose/Water 1 100ml.bag @ 100 mls/hr IVPB ONCE ONE Rx#: [id number] PA/ART/CVP 45 117 Sodium Chloride 0.9% 1, 350 650 000 ml @ 20 mls/hr IV . Q24H [facility] Rx#:[id number] ceFAZolin 2 gm In Sodium 100 Chloride 0.9% 50 ml @ 100 mls/hr IVPB ONCE ONE Rx# :[id number] Intake, IV Titration 97.807 73.3 Amount Clevidipine Butyrate 25 18.668 73.3 mg In Empty Bag 1 bag @ 1 MG/HR 2 mls/hr IV .Q24H [facility] Rx#:[id number] Dexmedetomidine/0.9% NaCl 12.018 (Pmx) 400 mcg In Empty Bag 1 bag @ Titrate IV . Q0M [facility] Rx#:[id number] propofoL 1,000 mg In 67.121 Empty Bag 1 bag @ Titrate IV .Q0M [facility] Rx#: [id number] Output: Chest Tube Drainage 255 1065 Chest Tube Left Lateral 75 475 Chest Chest Tube Mediastinal 180 590 Urine 640 1525 Estimated Blood Loss 300 Other: Voiding Method Indwelling Catheter Indwelling Catheter ABP, PAP, CO, CI - Last Documented Arterial Blood Pressure 143/55 Pulmonary Artery Pressure 30/10 Cardiac Output 4 Cardiac Index 2.2 - Exam CONSTITUTIONAL: Appears comfortable, sleepy, cooperative, no acute distress RESPIRATORY: Lungs sounds diminished bilaterally. Respirations even, nonlabored. Currently on 2 L nasal cannula with oxygen saturation 95%. Able to achieve 1000 mL on incentive spirometry. Strong cough. CARDIOVASCULAR: S1, S2 present. Regular rate and rhythm, sinus rhythm on telemetry. Sternum stable. Palpable peripheral pulses bilaterally. No edema present. No calf pain or tenderness noted. Heart hugger in place with patient demonstrating appropriate use. Antiembolism stockings, SCDs present. GASTROINTESTINAL: Abdomen soft, nontender, nondistended. Hypoactive bowel soun ds present 4 quadrants. Tolerating clear liquids. Denies flatus GENITOURINARY: Pete present draining clear, yellow urine. Output overnight 100-150 mL per hour INTEGUMENTARY: Skin is warm and dry with evidence of good perfusion. Anterior chest incision well approximated and covered with dry intact dressing. Left radial artery harvest site well approximated without redness or drainage. NEUROLOGIC: Cranial nerves II through XII intact MUSKULOSKELETAL: Able to move all extremities, strength equal bilaterally, left foot drop PSYCHIATRIC: Sleepy but does awaken and oriented to person place and time, appropriate affect, intact judgment and insight INVASIVE LINES AND TUBES: Mediastinal/left pleural chest tubes present and connected to wall suction, no air leaks present. Mediastinal tube with 380 mL serosanguineous drainage overnight, 750 mL since surgery. Left pleural chest tube with 300 mL serosanguineous drainage overnight, 550 mL since surgery. Right internal jugular [place]/Cordis, right radial arterial line present. Last CO/CI 4.0/2.2, PA 28/5, CVP 2. - Allied health notes Allied health notes reviewed: nursing - Labs CBC & Chem 7: 04/13/24 04:05 04/13/24 04:05 Labs: Abnormal Lab Results - Last 24 Hours (Table) 04/11/24 04/12/24 04/12/24 Range/Units 11:22 08:55 08:59 RBC (3.80-5.40) m/uL Hgb (11.4-16.0) gm/dL Hct (34.0-46.0) % Plt Count (150-450) k/uL Neutrophils # (1.3-7.7) k/uL Metamyelocytes # (Man) (0) k/uL Myelocytes # (Manual) (0) k/uL PT (10.0-12.5) sec INR (<1.2) APTT (22.0-30.0) sec ABG pH (7.35-7.45) ABG pO2 (83-108) mmHg ABG Total CO2 (19-24) mmol/L ABG O2 Saturation 98.3 H 98.4 H (94-97) % ABG Hematocrit 26 L 29 L (34.0-46.0) % Hemoglobin 8.5 L 9.5 L (11.4-16.0) gm/dL Sodium (137-145) mmol/L Chloride (98-107) mmol/L BUN (7-17) mg/dL Glucose (74-99) mg/dL POC Glucose (mg/dL) (70-110) mg/dL Calcium (8.4-10.2) mg/dL Alkaline Phosphatase (38-126) U/L Total Protein (6.3-8.2) g/dL Albumin (3.5-5.0) g/dL Crossmatch See Detail 04/12/24 04/12/24 04/12/24 Range/Units 10:02 11:03 11:39 RBC (3.80-5.40) m/uL Hgb (11.4-16.0) gm/dL Hct (34.0-46.0) % Plt Count (150-450) k/uL Neutrophils # (1.3-7.7) k/uL Metamyelocytes # (Man) (0) k/uL Myelocytes # (Manual) (0) k/uL PT (10.0-12.5) sec INR (<1.2) APTT (22.0-30.0) sec ABG pH (7.35-7.45) ABG pO2 152 H 125 H 78 L (83-108) mmHg ABG Total CO2 (19-24) mmol/L ABG O2 Saturation 98.9 H 98.7 H (94-97) % ABG Hematocrit 29 L 26 L 24 L (34.0-46.0) % Hemoglobin 9.5 L 8.4 L 7.7 L (11.4-16.0) gm/dL Sodium (137-145) mmol/L Chloride (98-107) mmol/L BUN (7-17) mg/dL Glucose (74-99) mg/dL POC Glucose (mg/dL) (70-110) mg/dL Calcium (8.4-10.2) mg/dL Alkaline Phosphatase (38-126) U/L Total Protein (6.3-8.2) g/dL Albumin (3.5-5.0) g/dL Crossmatch 04/12/24 04/12/24 04/12/24 Range/Units 12:15 12:15 12:15 RBC 2.57 L (3.80-5.40) m/uL Hgb 8.0 L D (11.4-16.0) gm/dL Hct 24.0 L (34.0-46.0) % Plt Count 97 L (150-450) k/uL Neutrophils # (1.3-7.7) k/uL Metamyelocytes # (Man) 0.17 H (0) k/uL Myelocytes # (Manual) 0.11 H (0) k/uL PT 14.5 H (10.0-12.5) sec INR 1.4 H (<1.2) APTT 32.7 H (22.0-30.0) sec ABG pH (7.35-7.45) ABG pO2 (83-108) mmHg ABG Total CO2 (19-24) mmol/L ABG O2 Saturation (94-97) % ABG Hematocrit (34.0-46.0) % Hemoglobin (11.4-16.0) gm/dL Sodium (137-145) mmol/L Chloride 112 H (98-107) mmol/L BUN 25 H (7-17) mg/dL Glucose 69 L (74-99) mg/dL POC Glucose (mg/dL) (70-110) mg/dL Calcium 7.7 L (8.4-10.2) mg/dL Alkaline Phosphatase 31 L (38-126) U/L Total Protein 4.8 L (6.3-8.2) g/dL Albumin 3.3 L (3.5-5.0) g/dL Crossmatch 04/12/24 04/12/24 04/12/24 Range/Units 12:44 15:10 18:00 RBC 2.63 L 2.61 L (3.80-5.40) m/uL Hgb 7.9 L 8.1 L (11.4-16.0) gm/dL Hct 24.4 L 24.2 L (34.0-46.0) % Plt Count 129 L 112 L (150-450) k/uL Neutrophils # (1.3-7.7) k/uL Metamyelocytes # (Man) (0) k/uL Myelocytes # (Manual) (0) k/uL PT (10.0-12.5) sec INR (<1.2) APTT (22.0-30.0) sec ABG pH 7.33 L (7.35-7.45) ABG pO2 241 H (83-108) mmHg ABG Total CO2 25 H (19-24) mmol/L ABG O2 Saturation 100.0 H (94-97) % ABG Hematocrit (34.0-46.0) % Hemoglobin 7.9 L (11.4-16.0) gm/dL Sodium (137-145) mmol/L Chloride (98-107) mmol/L BUN (7-17) mg/dL Glucose (74-99) mg/dL POC Glucose (mg/dL) (70-110) mg/dL Calcium (8.4-10.2) mg/dL Alkaline Phosphatase (38-126) U/L Total Protein (6.3-8.2) g/dL Albumin (3.5-5.0) g/dL Crossmatch 04/12/24 04/12/24 04/12/24 Range/Units 18:15 19:15 20:04 RBC (3.80-5.40) m/uL Hgb (11.4-16.0) gm/dL Hct (34.0-46.0) % Plt Count (150-450) k/uL Neutrophils # (1.3-7.7) k/uL Metamyelocytes # (Man) (0) k/uL Myelocytes # (Manual) (0) k/uL PT (10.0-12.5) sec INR (<1.2) APTT (22.0-30.0) sec ABG pH (7.35-7.45) ABG pO2 (83-108) mmHg ABG Total CO2 (19-24) mmol/L ABG O2 Saturation 98.6 H (94-97) % ABG Hematocrit (34.0-46.0) % Hemoglobin 8.3 L (11.4-16.0) gm/dL Sodium (137-145) mmol/L Chloride (98-107) mmol/L BUN (7-17) mg/dL Glucose (74-99) mg/dL POC Glucose (mg/dL) 117 H 113 H (70-110) mg/dL Calcium (8.4-10.2) mg/dL Alkaline Phosphatase (38-126) U/L Total Protein (6.3-8.2) g/dL Albumin (3.5-5.0) g/dL Crossmatch 04/12/24 04/13/24 04/13/24 Range/Units 22:07 04:05 04:05 RBC 3.12 L (3.80-5.40) m/uL Hgb 9.7 L D (11.4-16.0) gm/dL Hct 29.0 L (34.0-46.0) % Plt Count (150-450) k/uL Neutrophils # 8.2 H (1.3-7.7) k/uL Metamyelocytes # (Man) (0) k/uL Myelocytes # (Manual) (0) k/uL PT (10.0-12.5) sec INR (<1.2) APTT (22.0-30.0) sec ABG pH (7.35-7.45) ABG pO2 (83-108) mmHg ABG Total CO2 (19-24) mmol/L ABG O2 Saturation (94-97) % ABG Hematocrit (34.0-46.0) % Hemoglobin (11.4-16.0) gm/dL Sodium 134 L (137-145) mmol/L Chloride 110 H (98-107) mmol/L BUN (7-17) mg/dL Glucose (74-99) mg/dL POC Glucose (mg/dL) 113 H (70-110) mg/dL Calcium 8.0 L (8.4-10.2) mg/dL Alkaline Phosphatase 37 L (38-126) U/L Total Protein 4.8 L (6.3-8.2) g/dL Albumin 3.0 L (3.5-5.0) g/dL Crossmatch 04/13/24 04/13/24 Range/Units 06:08 06:51 RBC (3.80-5.40) m/uL Hgb (11.4-16.0) gm/dL Hct (34.0-46.0) % Plt Count (150-450) k/uL Neutrophils # (1.3-7.7) k/uL Metamyelocytes # (Man) (0) k/uL Myelocytes # (Manual) (0) k/uL PT (10.0-12.5) sec INR (<1.2) APTT (22.0-30.0) sec ABG pH (7.35-7.45) ABG pO2 (83-108) mmHg ABG Total CO2 (19-24) mmol/L ABG O2 Saturation (94-97) % ABG Hematocrit (34.0-46.0) % Hemoglobin (11.4-16.0) gm/dL Sodium (137-145) mmol/L Chloride (98-107) mmol/L BUN (7-17) mg/dL Glucose (74-99) mg/dL POC Glucose (mg/dL) 123 H 117 H (70-110) mg/dL Calcium (8.4-10.2) mg/dL Alkaline Phosphatase (38-126) U/L Total Protein (6.3-8.2) g/dL Albumin (3.5-5.0) g/dL Crossmatch - Imaging and Cardiology Chest x-ray: report reviewed, image reviewed Assessment and Plan Assessment: Coronary artery disease with left main disease, non-STEMI this admission Chest pain, shortness of breath, secondary to above History of mild nonobstructive coronary artery disease in the LAD from heart cath in 2019 Hypertension Hyperlipidemia with anaphylactic reaction to statins, cholesterol 225, LDL 155 Insulin-dependent diabetes, uncontrolled hyperglycemia with hemoglobin A1c 8.5% Left lower extremity DVT Asthma/COPD, patient is on home oxygen Lifelong non-smoker, preoperative FEV1 97% of predicted Obstructive sleep apnea with home CPAP use Chronic kidney disease Left foot drop after back surgery Chronic pain with chronic narcotic dependence Plan: Continue to maximize medical therapy with aspirin, Plavix, Zetia, beta-arlene therapy. Will increase beta-arlene therapy as tolerated Continue amiodarone for A-fib prophylaxis, will transition to oral. Patient has had no atrial fibrillation at this point Discontinue IV nitro. Will start oral calcium channel arlene for radial artery spasm prophylaxis Wean O2 as tolerated, encourage incentive spirometry use 10 times every hour while awake. Bronchodilators per pulmonology Increase activity, ambulate as tolerated. PT/OT/cardiac rehab consulted Will monitor daily labs and x-rays. Electrolyte replacement per protocol. No Lasix today GI/DVT prophylaxis Pain control per current medication regimen Insulin management per internal medicine. Patient needs tight blood sugar control to prevent infection. Prior to surgery blood sugars were uncontrolled with A1c 8.5%. Patient to remain on IV insulin for 48 hours, then may transition to subcutaneous per protocol Discontinue [place], likely will discontinue Cordis later today Discontinue arterial line Continue chest tubes for another 24 hours, monitor output Continue Pete catheter for another 24 hours, continue to monitor and record strict accurate intake and output More recommendations to follow as patient progresses
[2024-04-13] MEDS: KETOROLAC 15 MG/ML 1 ML VIAL IVP SCH (08:30)
[2024-04-13] MEDS: ALBUMIN HUMAN 5% 250 ML in EMPTY BAG 1 BAG IVPB ONE (08:53)
[2024-04-13] MEDS: PANTOPRAZOLE 40 MG/10 ML VIAL IVP SCH (08:59)
[2024-04-13] MEDS ORDERED: METOPROLOL TARTRATE 12.5 MG TAB PO SCH (09:00)
[2024-04-13] MEDS: AMIODARONE 200 MG TAB PO SCH (09:00)
[2024-04-13] MEDS: ASPIRIN 325 MG TAB PO SCH (09:11)
[2024-04-13] MEDS: CLOPIDOGREL 75 MG TAB PO SCH (09:11)
[2024-04-13] MEDS: METOPROLOL TARTRATE 25 MG TAB PO SCH (09:11)
[2024-04-13 10:17] LABS: Glucose,Whole Blood 145 mg/dL (70-110)
[2024-04-13 11:21] LABS: Glucose,Whole Blood 137 mg/dL (70-110)
--- NOTE | 2024-04-13 12:05 | P.PN ---
Subjective Progress Note Date: 04/13/24 This is a 68-year-old female patient with a history of hypertension, hyperlipidemia, anaphylactic reaction to statins, diabetes mellitus, COPD, obstructive sleep apnea on home CPAP, chronic kidney disease, chronic pain syndrome she presented here to the hospital with chest pain and was found to have a non-ST segment elevation myocardial infarction. Catheterization on 04/09/2024 revealed critical disease involving the distal left main and ostial left circumflex and LAD with eccentric plaque appears to be calcified approaching almost 80%. Today she had undergone a off-pump coronary artery bypass grafting x 2 with a CABRERA to the LAD, left radial to the OM. She is seen in consultation shortly after her arrival to the intensive care unit. She is intubated on the mechanical ventilator and assist-control mode at a rate of 16, tidal volume 350, FiO2 60% and a PEEP of 10. Arterial blood gases revealed a PaO2 of 241, pCO2 44, pH 7.33. She is currently on a nitroglycerin drip at 5 mcg/min. Cleviprex drip at 1 mg/hr. Normal saline at 50 mL/h and propofol at 30 mcg/kg/min. Right IJ Mcfarland-Nika catheter in place. Cardiac output 5.9. Cardiac index 3.2. PA pressures 36/19. CVP 10. Mediastinal and left chest tubes are in place. Chest x-ray reveals postsurgical changes with mild pulmonary vascular congestion. No pneumothorax. Small left pleural effusion. White count 5.7. Hemoglobin 8.0. Platelets 97,000. INR 1.4. Sodium 140. Potassium 4.1. Bicarb 22. BUN 25. Creatinine 0.93. Glucose 69. Albumin 3.3. AST 25. ALT 27. The patient is seen today April 13, 2024 in follow-up in the intensive care unit. Post operative day #1. She is currently up in a chair. Awake and alert in no acute distress. She drifts off to sleep easily. She does have a history of obstructive sleep apnea and utilizes CPAP at home. She was placed on BiPAP last evening 03/17 and 50% FiO2. 3 L/min per nasal cannula with O2 saturations in the 90s. Was 3.9. Cardiac index 2.1. PA pressures 28/12. CVP of 8. She has been afebrile. She remains on amiodarone at 0.5 mg/min. Normal saline at 50 mL/h. Insulin drip at 1 unit/h. Nitroglycerin drip at 5 mcg/min. Place. Chest x-ray reveals ongoing pulmonary vascular congestion. Left lower lung atelectasis. Is working with this incentive spirometer. Pulling approximately 1250 mL. Pain is well-managed. 134. Potassium 4.1. Bicarb 22. BUN 17. Creatinine 0.78. Glucose 97. She remains on heparin for DVT prophylaxis. Continued on bro nchodilators. Objective - Vital Signs Vital signs: Vital Signs Temp 98.8 F 04/13/24 08:00 Pulse 69 04/13/24 11:00 Resp 10 L 04/13/24 11:00 BP 99/62 04/13/24 11:00 Pulse Ox 99 04/13/24 11:00 FiO2 50 04/13/24 10:00 Intake & Output 04/12/24 04/13/24 04/13/24 18:59 06:59 18:59 Intake Total 040.495 3172.3 1029.285 Output Total 1195 2590 360 Balance -539.193 -1079.7 669.285 Weight 90.8 kg Intake: IV 558 1437 536 ACETAMINOPHEN IV (For NPO 50 300 ) 1,000 mg In Empty Bag 1 bag @ 400 mls/hr IVPB Q6HR [facility] Rx#:[id number] Albumin Human 5% 250 ml 250 In Empty Bag 1 bag @ 250 mls/hr IVPB ONCE ONE Rx#: [id number] CO/CI 110 170 20 Magnesium Sulfate-D5w Pmx 100 1 gm In Dextrose/Water 1 100ml.bag @ 100 mls/hr IVPB ONCE ONE Rx#: [id number] PA/ART/CVP 45 117 36 Sodium Chloride 0.9% 1, 350 650 180 000 ml @ 20 mls/hr IV . Q24H [facility] Rx#:[id number] ceFAZolin 2 gm In Sodium 100 50 Chloride 0.9% 50 ml @ 100 mls/hr IVPB ONCE ONE Rx# :[id number] Intake, IV Titration 97.807 73.3 253.285 Amount Amiodarone 450 mg In 248.894 Dextrose 5% in Water 250 ml @ 0.5 MG/MIN 16.667 mls/hr IV .Q15H [facility] Rx#: [id number] Clevidipine Butyrate 25 18.668 73.3 mg In Empty Bag 1 bag @ 1 MG/HR 2 mls/hr IV .Q24H [facility] Rx#:[id number] Dexmedetomidine/0.9% NaCl 12.018 (Pmx) 400 mcg In Empty Bag 1 bag @ Titrate IV . Q0M [facility] Rx#:[id number] Insulin Regular 100 unit 4.391 In Sodium Chloride 0.9% 100 ml @ Per Protocol IV .Q0M [facility] Rx#:[id number] propofoL 1,000 mg In 67.121 Empty Bag 1 bag @ Titrate IV .Q0M [facility] Rx#: [id number] Oral 240 Output: Chest Tube Drainage 255 1065 170 Chest Tube Left Lateral 75 475 50 Chest Chest Tube Mediastinal 180 590 120 Urine 640 1525 190 Estimated Blood Loss 300 Other: Voiding Method Indwelling Catheter Indwelling Catheter ABP, PAP, CO, CI - Last Documented Arterial Blood Pressure 122/46 Pulmonary Artery Pressure 28/12 Cardiac Output 3.9 Cardiac Index 2.1 - Exam GENERAL EXAM: Awake, alert 68-year-old female, up in a chair, on 3 L nasal cannula, in no apparent distress. HEAD: Normocephalic. EYES: Normal reaction of pupils, equal size. NOSE: Clear with pink turbinates. THROAT: No erythema or exudates. NECK: Right IJ cordis in place. No masses, no JVD. CHEST: Sternal dressing dry and intact. Heart hugger in place. Mediastinal and left pleural chest tubes in place. LUNGS: Equal air entry with no crackles, wheeze, rhonchi or dullness. CVS: S1 and S2 normal with no audible murmur, regular rhythm. ABDOMEN: No hepatosplenomegaly, normal bowel sounds, no guarding or rigidity. SPINE: No scoliosis or deformity SKIN: No rashes CENTRAL NERVOUS SYSTEM: No focal deficits, tone is normal in all 4 extremities. EXTREMITIES: JOSHUA wraps to the bilateral lower extremities. Josuha wrap to the left upper extremity. There is no peripheral edema. No clubbing, no cyanosis. Peripheral pulses are intact. - Labs CBC & Chem 7: 04/13/24 04:05 04/13/24 04:05 Labs: Abnormal Lab Results - Last 24 Hours (Table) 04/11/24 04/12/24 04/12/24 Range/Units 11:22 12:15 12:15 RBC 2.57 L (3.80-5.40) m/uL Hgb 8.0 L D (11.4-16.0) gm/dL Hct 24.0 L (34.0-46.0) % Plt Count 97 L (150-450) k/uL Neutrophils # (1.3-7.7) k/uL Metamyelocytes # (Man) 0.17 H (0) k/uL Myelocytes # (Manual) 0.11 H (0) k/uL PT 14.5 H (10.0-12.5) sec INR 1.4 H (<1.2) APTT 32.7 H (22.0-30.0) sec ABG pH (7.35-7.45) ABG pO2 (83-108) mmHg ABG Total CO2 (19-24) mmol/L ABG O2 Saturation (94-97) % Hemoglobin (11.4-16.0) gm/dL Sodium (137-145) mmol/L Chloride (98-107) mmol/L BUN (7-17) mg/dL Glucose (74-99) mg/dL POC Glucose (mg/dL) (70-110) mg/dL Calcium (8.4-10.2) mg/dL Alkaline Phosphatase (38-126) U/L Total Protein (6.3-8.2) g/dL Albumin (3.5-5.0) g/dL Crossmatch See Detail 04/12/24 04/12/24 04/12/24 Range/Units 12:15 12:44 15:10 RBC 2.63 L (3.80-5.40) m/uL Hgb 7.9 L (11.4-16.0) gm/dL Hct 24.4 L (34.0-46.0) % Plt Count 129 L (150-450) k/uL Neutrophils # (1.3-7.7) k/uL Metamyelocytes # (Man) (0) k/uL Myelocytes # (Manual) (0) k/uL PT (10.0-12.5) sec INR (<1.2) APTT (22.0-30.0) sec ABG pH 7.33 L (7.35-7.45) ABG pO2 241 H (83-108) mmHg ABG Total CO2 25 H (19-24) mmol/L ABG O2 Saturation 100.0 H (94-97) % Hemoglobin 7.9 L (11.4-16.0) gm/dL Sodium (137-145) mmol/L Chloride 112 H (98-107) mmol/L BUN 25 H (7-17) mg/dL Glucose 69 L (74-99) mg/dL POC Glucose (mg/dL) (70-110) mg/dL Calcium 7.7 L (8.4-10.2) mg/dL Alkaline Phosphatase 31 L (38-126) U/L Total Protein 4.8 L (6.3-8.2) g/dL Albumin 3.3 L (3.5-5.0) g/dL Crossmatch 04/12/24 04/12/24 04/12/24 Range/Units 18:00 18:15 19:15 RBC 2.61 L (3.80-5.40) m/uL Hgb 8.1 L (11.4-16.0) gm/dL Hct 24.2 L (34.0-46.0) % Plt Count 112 L (150-450) k/uL Neutrophils # (1.3-7.7) k/uL Metamyelocytes # (Man) (0) k/uL Myelocytes # (Manual) (0) k/uL PT (10.0-12.5) sec INR (<1.2) APTT (22.0-30.0) sec ABG pH (7.35-7.45) ABG pO2 (83-108) mmHg ABG Total CO2 (19-24) mmol/L ABG O2 Saturation 98.6 H (94-97) % Hemoglobin 8.3 L (11.4-16.0) gm/dL Sodium (137-145) mmol/L Chloride (98-107) mmol/L BUN (7-17) mg/dL Glucose (74-99) mg/dL POC Glucose (mg/dL) 117 H (70-110) mg/dL Calcium (8.4-10.2) mg/dL Alkaline Phosphatase (38-126) U/L Total Protein (6.3-8.2) g/dL Albumin (3.5-5.0) g/dL Crossmatch 04/12/24 04/12/24 04/13/24 Range/Units 20:04 22:07 04:05 RBC 3.12 L (3.80-5.40) m/uL Hgb 9.7 L D (11.4-16.0) gm/dL Hct 29.0 L (34.0-46.0) % Plt Count (150-450) k/uL Neutrophils # 8.2 H (1.3-7.7) k/uL Metamyelocytes # (Man) (0) k/uL Myelocytes # (Manual) (0) k/uL PT (10.0-12.5) sec INR (<1.2) APTT (22.0-30.0) sec ABG pH (7.35-7.45) ABG pO2 (83-108) mmHg ABG Total CO2 (19-24) mmol/L ABG O2 Saturation (94-97) % Hemoglobin (11.4-16.0) gm/dL Sodium (137-145) mmol/L Chloride (98-107) mmol/L BUN (7-17) mg/dL Glucose (74-99) mg/dL POC Glucose (mg/dL) 113 H 113 H (70-110) mg/dL Calcium (8.4-10.2) mg/dL Alkaline Phosphatase (38-126) U/L Total Protein (6.3-8.2) g/dL Albumin (3.5-5.0) g/dL Crossmatch 04/13/24 04/13/24 04/13/24 Range/Units 04:05 06:08 06:51 RBC (3.80-5.40) m/uL Hgb (11.4-16.0) gm/dL Hct (34.0-46.0) % Plt Count (150-450) k/uL Neutrophils # (1.3-7.7) k/uL Metamyelocytes # (Man) (0) k/uL Myelocytes # (Manual) (0) k/uL PT (10.0-12.5) sec INR (<1.2) APTT (22.0-30.0) sec ABG pH (7.35-7.45) ABG pO2 (83-108) mmHg ABG Total CO2 (19-24) mmol/L ABG O2 Saturation (94-97) % Hemoglobin (11.4-16.0) gm/dL Sodium 134 L (137-145) mmol/L Chloride 110 H (98-107) mmol/L BUN (7-17) mg/dL Glucose (74-99) mg/dL POC Glucose (mg/dL) 123 H 117 H (70-110) mg/dL Calcium 8.0 L (8.4-10.2) mg/dL Alkaline Phosphatase 37 L (38-126) U/L Total Protein 4.8 L (6.3-8.2) g/dL Albumin 3.0 L (3.5-5.0) g/dL Crossmatch 04/13/24 04/13/24 04/13/24 Range/Units 08:17 10:15 11:20 RBC (3.80-5.40) m/uL Hgb (11.4-16.0) gm/dL Hct (34.0-46.0) % Plt Count (150-450) k/uL Neutrophils # (1.3-7.7) k/uL Metamyelocytes # (Man) (0) k/uL Myelocytes # (Manual) (0) k/uL PT (10.0-12.5) sec INR (<1.2) APTT (22.0-30.0) sec ABG pH (7.35-7.45) ABG pO2 (83-108) mmHg ABG Total CO2 (19-24) mmol/L ABG O2 Saturation (94-97) % Hemoglobin (11.4-16.0) gm/dL Sodium (137-145) mmol/L Chloride (98-107) mmol/L BUN (7-17) mg/dL Glucose (74-99) mg/dL POC Glucose (mg/dL) 131 H 145 H 137 H (70-110) mg/dL Calcium (8.4-10.2) mg/dL Alkaline Phosphatase (38-126) U/L Total Protein (6.3-8.2) g/dL Albumin (3.5-5.0) g/dL Crossmatch Assessment and Plan Assessment: Non-ST segment elevation myocardial infarction, significant coronary artery disease. Status post coronary artery bypass grafting x 2 utilizing a CABRERA to the LAD, left radial artery to the OM1. Postoperative day #1 Mechanical ventilator management, expected outcome, extubated and on 3L nasal cannula History of coronary artery disease Hypertension Hyperlipidemia Diabetes mellitus Chronic obstructive pulmonary disease Obstructive sleep apnea utilizing home CPAP Chronic kidney disease Chronic pain syndrome History of anaphylactic reaction to statins Plan: The patient was seen and evaluated Chest x-ray, labs and medications reviewed Continue bronchodilators Continue to work well with the incentive spirometer Titrate down the FiO2 as tolerated Increase her activity as tolerated Heparin for DVT prophylaxis Protonix for GI prophylaxis We will continue to follow I have personally seen and examined the patient, performed the documentation and the assessment and plan as written. Number of minutes spent on the visit: 10 Dictation was produced using [employer] dictation software. Please excuse any grammatical, word or spelling errors.
[2024-04-13] MEDS: HYDROcodone/APAP 5-325MG 1 EACH TAB PO PRN (12:19)
[2024-04-13] MEDS: amLODIPine 5 MG TAB PO SCH (12:21)
[2024-04-13 12:57] LABS: Glucose,Whole Blood 171 mg/dL (70-110)
[2024-04-13 14:19] LABS: Glucose,Whole Blood 182 mg/dL (70-110)
[2024-04-13 16:00] LABS: Glucose,Whole Blood 176 mg/dL (70-110)
--- NOTE | 2024-04-13 17:25 | P.PN ---
Subjective Progress Note Date: 04/13/24 Principal diagnosis: Coronary artery disease with critical stenosis in left main distal circumflex and LAD with calcified plaque 80% stenosis Altered mental status likely related to sepsis and right lower lobe pneumonia noted CT scan of the head negative Elevated D-dimer likely related to sepsis Right lower lobe pneumonia Sleep disordered breathing and sleep apnea Chronic persistent asthma mild to moderate intermittent type Chest pain and tightness, atypical chest pain, cardiovascular service following, patient is on IV heparin troponin elevated Kidney disease, monitor and trend urine output and renal functions closely Sleep disordered breathing and sleep apnea April 13, 2024, patient seen evaluate examined in ICU patient is s/p CABG x 2 with CABRERA to LAD and left radial to obtuse marginal, patient is awake and alert successfully weaned and extubated sitting upright in the chair, [place]-Nika catheter has been removed as well, 2 chest tubes are present no airleak is present. Patient concerned about CPAP machine, felt that not allowed to use as per desire, discussed with the staff respiratory therapist to continue BiPAP machine each night and as needed during the day, patient is on 10 with 50% oxygen. Currently she is on 3 L nasal cannula. Labs reviewed chest x-ray reviewed subsegmental atelectasis present patient has a incentive spirometer recommended to continue deep breathing exercises incentive spirometry April 12, 2024, patient is being planned for surgery later on today with Age IV access established, patient is afebrile hemodynamically stable, blood sugar improved to 111 this morning with the escalation of long and short acting insul in and discontinuation of steroids April 11, 2024, patient seen eval examined sitting upright on the bed, on supplemental oxygen, ongoing intermittent shortness of breath spasm, denies any chest pain currently, discussed with patient at length about finding of cardiac cath angiogram explained to her and daughter, awaiting further recommendation from cardiothoracic surgery, labs are not done will repeat labs blood sugar in mid 100 to mid 200 range, PTT in therapeutic range remains on IV heparin April 10, 2024, patient found to have critical stenosis of over 80%, significant stenosis seen in left main distal portion along with circumflex near ostium and LAD with eccentric plaques and calcified appearance CT surgery has been consulted awaiting their recommendation patient remains on heparin. Labs include CBC within normal limit PTT is 62 BUN/creatinine 32/1.18 overall stable sugars are mid 100 to mid 200 range April 09, 2024, seen evaluate examined during rounds labs reviewed medications reviewed, facial congestion as well as cough improved on IV antibiotics and bronchodilators, patient is awaiting for cardiac catheter angiogram April 08, 2024, patient seen eval examined during rounds labs reviewed medications with care plan discussed, respiratory status overall stable however continue to require supplemental oxygen, patient continue to use old CPAP machine. Patient has been evaluated by cardiovascular service being planned for cardiac cath angiogram tomorrow. Patient has nasal stuffiness congestion, sinus tenderness, on IV Rocephin and doxycycline in addition patient has 2 infected teeth on the left side, will continue antibiotics along with oral prednisone. Patient is on IV heparin as well April 05, 2024, patient seen eval examined during rounds still patient is in the ER holding area, patient has been using CPAP each night and as needed during the day, mental status improved more awake and alert. Afebrile with oxygen saturation 94%, blood pressure 160/82 saturation 94% on 2 L oxygen. Blood sugar in mid 200 range. Patient remains on bronchodilator inhaled corticosteroid broad-spectrum antibiotics and IV steroids tolerating well 68-year-old female who presented to the hospital with chest pain and left arm pain note that having some confusion as she cannot recall the name of her dog. Specific questioning denies any fever chills denies any headache photophobia lacrimation, denies any weakness in any part of the body, she has other active medical problems significant asthma COPD and sleep apnea patient has a CPAP machine as well. Chest x-ray unremarkable ECG normal sinus rhythm with right bundle branch block, CT scan of the chest no evidence of aortic dissection or aneurysm no PE, prominent interstitium seen right lower lobe cardiomegaly, diverticulosis. Acute intracranial process CT scan of the head labs include CBC within normal limit, chemistry BUN/creatinine 17/1.17, glucose was 222, troponin elevated 0.077, D-dimer is 1.66 down to 1.19 Past medical history significant for chronic asthmatic bronchitis, coronary artery disease, COPD, diabetes, DVT, dyslipidemia, hypertension hypertensive cardiovascular disease, obstructive sleep apnea chronic kidney disease Objective - Vital Signs Vital signs: Vital Signs Temp 98.8 F 04/13/24 08:00 Pulse 74 04/13/24 10:00 Resp 23 04/13/24 10:00 BP 116/59 04/13/24 05:15 Pulse Ox 97 04/13/24 10:00 FiO2 50 04/13/24 10:00 Intake & Output 04/12/24 04/13/24 04/13/24 18:59 06:59 18:59 Intake Total 831.489 9051.3 779.191 Output Total 1195 2590 360 Balance -539.193 -1079.7 419.191 Weight 90.8 kg Intake: IV 558 1437 536 ACETAMINOPHEN IV (For NPO 50 300 ) 1,000 mg In Empty Bag 1 bag @ 400 mls/hr IVPB Q6HR [facility] Rx#:[id number] Albumin Human 5% 250 ml 250 In Empty Bag 1 bag @ 250 mls/hr IVPB ONCE ONE Rx#: [id number] CO/CI 110 170 20 Magnesium Sulfate-D5w Pmx 100 1 gm In Dextrose/Water 1 100ml.bag @ 100 mls/hr IVPB ONCE ONE Rx#: [id number] PA/ART/CVP 45 117 36 Sodium Chloride 0.9% 1, 350 650 180 000 ml @ 20 mls/hr IV . Q24H [facility] Rx#:[id number] ceFAZolin 2 gm In Sodium 100 50 Chloride 0.9% 50 ml @ 100 mls/hr IVPB ONCE ONE Rx# :[id number] Intake, IV Titration 97.807 73.3 3.191 Amount Clevidipine Butyrate 25 18.668 73.3 mg In Empty Bag 1 bag @ 1 MG/HR 2 mls/hr IV .Q24H [facility] Rx#:[id number] Dexmedetomidine/0.9% NaCl 12.018 (Pmx) 400 mcg In Empty Bag 1 bag @ Titrate IV . Q0M [facility] Rx#:[id number] Insulin Regular 100 unit 3.191 In Sodium Chloride 0.9% 100 ml @ Per Protocol IV .Q0M [facility] Rx#:[id number] propofoL 1,000 mg In 67.121 Empty Bag 1 bag @ Titrate IV .Q0M [facility] Rx#: [id number] Oral 240 Output: Chest Tube Drainage 255 1065 170 Chest Tube Left Lateral 75 475 50 Chest Chest Tube Mediastinal 180 590 120 Urine 640 1525 190 Estimated Blood Loss 300 Other: Voiding Method Indwelling Catheter Indwelling Catheter ABP, PAP, CO, CI - Last Documented Arterial Blood Pressure 122/46 Pulmonary Artery Pressure 28/12 Cardiac Output 3.9 Cardiac Index 2.1 - Exam - Constitutional General appearance: average body habitus, cooperative, disheveled - EENT Eyes: EOMI, PERRLA Ears: bilateral: normal, positive tenderness left maxillary area and swelling left jaw - Neck Carotids: bilateral: upstroke normal Thyroid: bilateral: normal size - Respiratory Respiratory: right: rales - Cardiovascular Rhythm: regular Heart sounds: normal: S1, S2 - Gastrointestinal General gastrointestinal: normal bowel sounds - Integumentary Integumentary: normal turgor - Neurologic Neurologic: CNII-XII intact - Musculoskeletal Musculoskeletal: generalized weakness - Psychiatric Psychiatric: A&O x's 3, appropriate affect, intact judgment & insight - Labs CBC & Chem 7: 04/13/24 04:05 04/13/24 04:05 Labs: Abnormal Lab Results - Last 24 Hours (Table) 04/11/24 04/12/24 04/12/24 Range/Units 11:22 11:39 12:15 RBC 2.57 L (3.80-5.40) m/uL Hgb 8.0 L D (11.4-16.0) gm/dL Hct 24.0 L (34.0-46.0) % Plt Count 97 L (150-450) k/uL Neutrophils # (1.3-7.7) k/uL Metamyelocytes # (Man) 0.17 H (0) k/uL Myelocytes # (Manual) 0.11 H (0) k/uL PT (10.0-12.5) sec INR (<1.2) APTT (22.0-30.0) sec ABG pH (7.35-7.45) ABG pO2 78 L (83-108) mmHg ABG Total CO2 (19-24) mmol/L ABG O2 Saturation (94-97) % ABG Hematocrit 24 L (34.0-46.0) % Hemoglobin 7.7 L (11.4-16.0) gm/dL Sodium (137-145) mmol/L Chloride (98-107) mmol/L BUN (7-17) mg/dL Glucose (74-99) mg/dL POC Glucose (mg/dL) (70-110) mg/dL Calcium (8.4-10.2) mg/dL Alkaline Phosphatase (38-126) U/L Total Protein (6.3-8.2) g/dL Albumin (3.5-5.0) g/dL Crossmatch See Detail 04/12/24 04/12/24 04/12/24 Range/Units 12:15 12:15 12:44 RBC (3.80-5.40) m/uL Hgb (11.4-16.0) gm/dL Hct (34.0-46.0) % Plt Count (150-450) k/uL Neutrophils # (1.3-7.7) k/uL Metamyelocytes # (Man) (0) k/uL Myelocytes # (Manual) (0) k/uL PT 14.5 H (10.0-12.5) sec INR 1.4 H (<1.2) APTT 32.7 H (22.0-30.0) sec ABG pH 7.33 L (7.35-7.45) ABG pO2 241 H (83-108) mmHg ABG Total CO2 25 H (19-24) mmol/L ABG O2 Saturation 100.0 H (94-97) % ABG Hematocrit (34.0-46.0) % Hemoglobin 7.9 L (11.4-16.0) gm/dL Sodium (137-145) mmol/L Chloride 112 H (98-107) mmol/L BUN 25 H (7-17) mg/dL Glucose 69 L (74-99) mg/dL POC Glucose (mg/dL) (70-110) mg/dL Calcium 7.7 L (8.4-10.2) mg/dL Alkaline Phosphatase 31 L (38-126) U/L Total Protein 4.8 L (6.3-8.2) g/dL Albumin 3.3 L (3.5-5.0) g/dL Crossmatch 04/12/24 04/12/24 04/12/24 Range/Units 15:10 18:00 18:15 RBC 2.63 L 2.61 L (3.80-5.40) m/uL Hgb 7.9 L 8.1 L (11.4-16.0) gm/dL Hct 24.4 L 24.2 L (34.0-46.0) % Plt Count 129 L 112 L (150-450) k/uL Neutrophils # (1.3-7.7) k/uL Metamyelocytes # (Man) (0) k/uL Myelocytes # (Manual) (0) k/uL PT (10.0-12.5) sec INR (<1.2) APTT (22.0-30.0) sec ABG pH (7.35-7.45) ABG pO2 (83-108) mmHg ABG Total CO2 (19-24) mmol/L ABG O2 Saturation 98.6 H (94-97) % ABG Hematocrit (34.0-46.0) % Hemoglobin 8.3 L (11.4-16.0) gm/dL Sodium (137-145) mmol/L Chloride (98-107) mmol/L BUN (7-17) mg/dL Glucose (74-99) mg/dL POC Glucose (mg/dL) (70-110) mg/dL Calcium (8.4-10.2) mg/dL Alkaline Phosphatase (38-126) U/L Total Protein (6.3-8.2) g/dL Albumin (3.5-5.0) g/dL Crossmatch 04/12/24 04/12/24 04/12/24 Range/Units 19:15 20:04 22:07 RBC (3.80-5.40) m/uL Hgb (11.4-16.0) gm/dL Hct (34.0-46.0) % Plt Count (150-450) k/uL Neutrophils # (1.3-7.7) k/uL Metamyelocytes # (Man) (0) k/uL Myelocytes # (Manual) (0) k/uL PT (10.0-12.5) sec INR (<1.2) APTT (22.0-30.0) sec ABG pH (7.35-7.45) ABG pO2 (83-108) mmHg ABG Total CO2 (19-24) mmol/L ABG O2 Saturation (94-97) % ABG Hematocrit (34.0-46.0) % Hemoglobin (11.4-16.0) gm/dL Sodium (137-145) mmol/L Chloride (98-107) mmol/L BUN (7-17) mg/dL Glucose (74-99) mg/dL POC Glucose (mg/dL) 117 H 113 H 113 H (70-110) mg/dL Calcium (8.4-10.2) mg/dL Alkaline Phosphatase (38-126) U/L Total Protein (6.3-8.2) g/dL Albumin (3.5-5.0) g/dL Crossmatch 04/13/24 04/13/24 04/13/24 Range/Units 04:05 04:05 06:08 RBC 3.12 L (3.80-5.40) m/uL Hgb 9.7 L D (11.4-16.0) gm/dL Hct 29.0 L (34.0-46.0) % Plt Count (150-450) k/uL Neutrophils # 8.2 H (1.3-7.7) k/uL Metamyelocytes # (Man) (0) k/uL Myelocytes # (Manual) (0) k/uL PT (10.0-12.5) sec INR (<1.2) APTT (22.0-30.0) sec ABG pH (7.35-7.45) ABG pO2 (83-108) mmHg ABG Total CO2 (19-24) mmol/L ABG O2 Saturation (94-97) % ABG Hematocrit (34.0-46.0) % Hemoglobin (11.4-16.0) gm/dL Sodium 134 L (137-145) mmol/L Chloride 110 H (98-107) mmol/L BUN (7-17) mg/dL Glucose (74-99) mg/dL POC Glucose (mg/dL) 123 H (70-110) mg/dL Calcium 8.0 L (8.4-10.2) mg/dL Alkaline Phosphatase 37 L (38-126) U/L Total Protein 4.8 L (6.3-8.2) g/dL Albumin 3.0 L (3.5-5.0) g/dL Crossmatch 04/13/24 04/13/24 04/13/24 Range/Units 06:51 08:17 10:15 RBC (3.80-5.40) m/uL Hgb (11.4-16.0) gm/dL Hct (34.0-46.0) % Plt Count (150-450) k/uL Neutrophils # (1.3-7.7) k/uL Metamyelocytes # (Man) (0) k/uL Myelocytes # (Manual) (0) k/uL PT (10.0-12.5) sec INR (<1.2) APTT (22.0-30.0) sec ABG pH (7.35-7.45) ABG pO2 (83-108) mmHg ABG Total CO2 (19-24) mmol/L ABG O2 Saturation (94-97) % ABG Hematocrit (34.0-46.0) % Hemoglobin (11.4-16.0) gm/dL Sodium (137-145) mmol/L Chloride (98-107) mmol/L BUN (7-17) mg/dL Glucose (74-99) mg/dL POC Glucose (mg/dL) 117 H 131 H 145 H (70-110) mg/dL Calcium (8.4-10.2) mg/dL Alkaline Phosphatase (38-126) U/L Total Protein (6.3-8.2) g/dL Albumin (3.5-5.0) g/dL Crossmatch Assessment and Plan Assessment: Coronary artery disease with critical stenosis in left main distal circumflex and LAD with calcified plaque 80% stenosis, cardiothoracic surgery is evaluating pending further recommendation, status post CABG x 2 with CABRERA to LAD and RA to circumflex Sleep disordered breathing and sleep apnea, continue BiPAP 10/5 each night and as needed during the day Uncontrolled diabetes and hyperglycemia, Lantus dose is escalated, patient placed on high intensity glucose control, steroids has been discontinued Acute on chronic sinusitis Unstable angina/coronary artery as above Altered mental status likely related to sepsis and right lower lobe pneumonia noted CT scan of the head negative, improved significantly Elevated D-dimer likely related to chronic inflammatory process Right lower lobe pneumonia, off of antibiotics now Sleep disordered breathing and sleep apnea Chronic persistent asthma mild to moderate intermittent type Kidney disease, monitor and trend urine output and renal functions closely Sleep disordered breathing and sleep apnea Plan: Awaiting CT surgery recommendation and evaluation, patient remains on IV heparin repeat labs Will continue patient on oral Augmentin monitor observe off of IV Rocephin and doxycycline On oral steroids, with Medrol Dosepak Bronchodilators with inhaled corticosteroid aerosolized along with DuoNeb Continue CPAP machine from home, will arrange new CPAP machine on outpatient basis patient likely will need new polysomnogram we will arrange it on outpatient basis as well Follow-up on cardiac cath angiogram results and reports Patient will likely need extraction Time with Patient: Greater than 30
[2024-04-13 17:28] LABS: Glucose,Whole Blood 146 mg/dL (70-110)
[2024-04-13 19:12] LABS: Glucose,Whole Blood 184 mg/dL (70-110)
[2024-04-13 19:57] LABS: Glucose,Whole Blood 171 mg/dL (70-110)
[2024-04-13 20:57] LABS: Glucose,Whole Blood 115 mg/dL (70-110)
[2024-04-13 21:50] LABS: Glucose,Whole Blood 134 mg/dL (70-110)
[2024-04-13 22:56] LABS: Glucose,Whole Blood 126 mg/dL (70-110)
[2024-04-14 00:02] LABS: Glucose,Whole Blood 143 mg/dL (70-110)
[2024-04-14 00:55] LABS: Glucose,Whole Blood 116 mg/dL (70-110)
[2024-04-14 01:57] LABS: Glucose,Whole Blood 100 mg/dL (70-110)
[2024-04-14 02:55] LABS: Glucose,Whole Blood 102 mg/dL (70-110)
[2024-04-14 03:57] LABS: Glucose,Whole Blood 112 mg/dL (70-110)
[2024-04-14 05:11] LABS: Glucose,Whole Blood 113 mg/dL (70-110)
[2024-04-14 05:35] LABS: Basophils % (A) 0 %; Eosinophils # (A) 0.2 k/uL (0-0.7); Eosinophils % (A) 2 %; HCT 27.4 % (34.0-46.0); HGB 8.8 gm/dL (11.4-16.0); Hypochromasia Slight; Lymphocytes # (A) 1.6 k/uL (1.0-4.8); Lymphocytes % (A) 17 %; MCH 30.8 pg (25.0-35.0); MCHC 32.3 g/dL (31.0-37.0); MCV 95.3 fL (80.0-100.0); Mean Platelet Volume 9.3; Monocytes # (A) 0.6 k/uL (0-1.0); Monocytes % (A) 7 %; Neutrophils # (A) 6.6 k/uL (1.3-7.7); Neutrophils % (A) 73 %; Platelet Count 101 k/uL (150-450); RBC 2.87 m/uL (3.80-5.40); RDW 14.4 % (11.5-15.5); WBC 9.1 k/uL (3.8-10.6)
[2024-04-14 05:56] LABS: Ionized Calcium 4.9 mg/dL (4.5-5.3)
[2024-04-14 06:17] LABS: Glucose,Whole Blood 162 mg/dL (70-110)
[2024-04-14] MEDS: PANTOPRAZOLE 40 MG TABLET PO SCH (06:23)
[2024-04-14 06:43] LABS: ALT 14 U/L (4-34); AST 25 U/L (14-36); African American GFR (CKD) 60 (>60 ml/min/1.73 sqM); Albumin 2.8 g/dL (3.5-5.0); Alkaline Phosphatase 43 U/L (38-126); Anion Gap 3 mmol/L; Blood Urea Nitrogen 14 mg/dL (7-17); Calcium 8.3 mg/dL (8.4-10.2); Carbon Dioxide 20 mmol/L (22-30); Chloride 109 mmol/L (98-107); Glucose 105 mg/dL (74-99); Magnesium 2.2 mg/dL (1.6-2.3); Non-African American GFR(CKD) 52 (>60 ml/min/1.73 sqM); Potassium 4.1 mmol/L (3.5-5.1); Sodium 132 mmol/L (137-145); Total Bilirubin 0.8 mg/dL (0.2-1.3); Total Protein 4.6 g/dL (6.3-8.2)
[2024-04-14] MEDS: ASCORBIC ACID 500 MG TAB PO SCH (06:48)
[2024-04-14] MEDS: FERROUS SULFATE 325 MG TAB PO SCH (06:48)
[2024-04-14 06:51] LABS: Glucose,Whole Blood 154 mg/dL (70-110)
--- NOTE | 2024-04-14 07:13 | XR ---
EXAMINATION TYPE: XR chest 1V portable DATE OF EXAM: 04/14/2024 5:27 AM COMPARISON: Chest radiographs from 04/13/2024 CLINICAL INDICATION: Female, 68 years old with history of Post Operative Cardiac Surgery; [facility] TECHNIQUE: XR chest 1V portable Frontal view of the chest. FINDINGS: Lungs/Pleura: Left Thoracotomy tube without visible pneumothorax. There is no evidence of pleural eff usion, focal consolidation, or pneumothorax. Pulmonary vascularity: Unremarkable. Heart/mediastinum: Cardiomediastinal silhouette is unremarkable. Left atrial appendage occlusion dima ce is present. Musculoskeletal: No acute osseous pathology. Midline sternotomy wires are noted. Other findings: None Mediastinal drainage tubes project over the heart. Removal [place]-Nika catheter. IMPRESSION: Postsurgical changes/tubes no evidence for acute process. [facility], , 04/14/2024 7:10 AM
--- NOTE | 2024-04-14 07:22 | P.PN ---
Subjective Progress Note Date: 04/14/24 Principal diagnosis: Coronary artery disease with left main disease, non-STEMI this admission. History of mild nonobstructive coronary artery disease in the LAD from heart cath in 2020, hypertension, hyperlipidemia with anaphylactic reaction to statins, insulin-dependent diabetes, left lower extremity DVT, asthma/COPD, obstructive sleep apnea with home CPAP use, lifelong non-smoker, chronic kidney disease, left foot drop after back surgery, chronic pain with chronic narcotic dependence POD #2 off-pump CABG x 2 with CABRERA to LAD, left radial artery to obtuse marginal with endovascular harvest of the left radial artery and occlusion of the left atrial appendage with a 35 mm AtriCure clip Postoperative acute blood loss anemia and thrombocytopenia, expected given hemodilution The patient was seen and examined this morning sitting up in recliner in the intensive care unit in no acute distress. Remains in sinus rhythm, hemodynamically stable. Much more alert and awake this morning, in good spirits. States expected postoperative pain tolerable on current medication regimen. Remains on 1 L nasal cannula with oxygen saturation in the high 90s, utilized BiPAP all night. Able to achieve 1500 mL on her incentive spirometry. Mediastinal/left pleural chest tubes remain. Patient did ambulate to the hallway yesterday with standby assist. Labs, chest x-ray reviewed. No other new concerns. Objective - Vital Signs Vital signs: Vital Signs Temp 99.3 F 04/14/24 04:00 Pulse 77 04/14/24 07:00 Resp 9 L 04/14/24 07:00 BP 108/95 04/14/24 07:00 Pulse Ox 96 04/14/24 07:00 FiO2 50 04/13/24 10:00 Intake & Output 04/13/24 04/14/24 04/14/24 18:59 06:59 18:59 Intake Total 1226.935 300.158 Output Total 855 1110 Balance 371.935 -809.842 Weight 90.5 kg Intake: IV 714 260 Albumin Human 5% 250 ml 250 In Empty Bag 1 bag @ 250 mls/hr IVPB ONCE ONE Rx#: [id number] CO/CI 20 PA/ART/CVP 54 Sodium Chloride 0.9% 1, 340 260 000 ml @ 20 mls/hr IV . Q24H COUNTS INCLUDE 234 BEDS AT THE [facility] Rx#:[id number] ceFAZolin 2 gm In Sodium 50 Chloride 0.9% 50 ml @ 100 mls/hr IVPB ONCE ONE Rx# :[id number] Intake, IV Titration 272.935 40.158 Amount Amiodarone 450 mg In 248.894 Dextrose 5% in Water 250 ml @ 0.5 MG/MIN 16.667 mls/hr IV .Q15H COUNTS INCLUDE 234 BEDS AT THE [facility] Rx#: [id number] Insulin Regular 100 unit 24.041 40.158 In Sodium Chloride 0.9% 100 ml @ Per Protocol IV .Q0M [facility] Rx#:[id number] Oral 240 Output: Chest Tube Drainage 340 200 Chest Tube Left Lateral 100 40 Chest Chest Tube Mediastinal 240 160 Urine 515 910 Other: Voiding Method Indwelling Catheter Indwelling Catheter ABP, PAP, CO, CI - Last Documented Arterial Blood Pressure 122/46 Pulmonary Artery Pressure 28/12 Cardiac Output 3.9 Cardiac Index 2.1 - Exam CONSTITUTIONAL: Appears comfortable, cooperative, no acute distress RESPIRATORY: Lungs sounds diminished in the bases bilaterally. Respirations even, nonlabored. Currently on 1 L nasal cannula with oxygen saturation 96%. Able to achieve 1500 mL on incentive spirometry. Strong loose cough. CARDIOVASCULAR: S1, S2 present. Regular rate and rhythm, sinus rhythm on telemetry. Sternum stable. Palpable peripheral pulses bilaterally. No edema present. No calf pain or tenderness noted. Heart hugger in place with patient demonstrating appropriate use. Antiembolism stockings, SCDs present. GASTROINTESTINAL: Abdomen soft, nontender, nondistended. Active bowel sounds present 4 quadrants. Tolerating diet. Denies flatus, positive belching GENITOURINARY: Pete present draining clear, yellow urine. Output overnight 50-100 mL per hour, 1345 mL in the last 24 hours INTEGUMENTARY: Skin is warm and dry with evidence of good perfusion. Anterior chest incision well approximated and covered with dry intact dressing. Left radial artery harvest site well approximated without redness or drainage. NEUROLOGIC: Cranial nerves II through XII intact MUSKULOSKELETAL: Able to move all extremities, strength equal bilaterally, left foot drop PSYCHIATRIC: Oriented to person place and time, appropriate affect, intact judgment and insight INVASIVE LINES AND TUBES: Mediastinal/left pleural chest tubes present and connected to wall suction, no air leaks present. Mediastinal tube with 120 mL serosanguineous drainage overnight, 450 mL in the last 24 hours. Left pleural chest tube with 30 mL serosanguineous drainage overnight, 150 mL in the last 24 hours. - Allied health notes Allied health notes reviewed: nursing - Labs CBC & Chem 7: 04/14/24 04:58 04/14/24 04:58 Labs: Abnormal Lab Results - Last 24 Hours (Table) 04/13/24 04/13/24 04/13/24 Range/Units 08:17 10:15 11:20 RBC (3.80-5.40) m/uL Hgb (11.4-16.0) gm/dL Hct (34.0-46.0) % Plt Count (150-450) k/uL Sodium (137-145) mmol/L Chloride (98-107) mmol/L Carbon Dioxide (22-30) mmol/L Creatinine (0.52-1.04) mg/dL Glucose (74-99) mg/dL POC Glucose (mg/dL) 131 H 145 H 137 H (70-110) mg/dL Calcium (8.4-10.2) mg/dL Total Protein (6.3-8.2) g/dL Albumin (3.5-5.0) g/dL 04/13/24 04/13/24 04/13/24 Range/Units 12:55 14:18 15:59 RBC (3.80-5.40) m/uL Hgb (11.4-16.0) gm/dL Hct (34.0-46.0) % Plt Count (150-450) k/uL Sodium (137-145) mmol/L Chloride (98-107) mmol/L Carbon Dioxide (22-30) mmol/L Creatinine (0.52-1.04) mg/dL Glucose (74-99) mg/dL POC Glucose (mg/dL) 171 H 182 H 176 H (70-110) mg/dL Calcium (8.4-10.2) mg/dL Total Protein (6.3-8.2) g/dL Albumin (3.5-5.0) g/dL 04/13/24 04/13/24 04/13/24 Range/Units 17:26 19:10 19:56 RBC (3.80-5.40) m/uL Hgb (11.4-16.0) gm/dL Hct (34.0-46.0) % Plt Count (150-450) k/uL Sodium (137-145) mmol/L Chloride (98-107) mmol/L Carbon Dioxide (22-30) mmol/L Creatinine (0.52-1.04) mg/dL Glucose (74-99) mg/dL POC Glucose (mg/dL) 146 H 184 H 171 H (70-110) mg/dL Calcium (8.4-10.2) mg/dL Total Protein (6.3-8.2) g/dL Albumin (3.5-5.0) g/dL 04/13/24 04/13/24 04/13/24 Range/Units 20:55 21:48 22:53 RBC (3.80-5.40) m/uL Hgb (11.4-16.0) gm/dL Hct (34.0-46.0) % Plt Count (150-450) k/uL Sodium (137-145) mmol/L Chloride (98-107) mmol/L Carbon Dioxide (22-30) mmol/L Creatinine (0.52-1.04) mg/dL Glucose (74-99) mg/dL POC Glucose (mg/dL) 115 H 134 H 126 H (70-110) mg/dL Calcium (8.4-10.2) mg/dL Total Protein (6.3-8.2) g/dL Albumin (3.5-5.0) g/dL 04/14/24 04/14/24 04/14/24 Range/Units 00:01 00:54 03:55 RBC (3.80-5.40) m/uL Hgb (11.4-16.0) gm/dL Hct (34.0-46.0) % Plt Count (150-450) k/uL Sodium (137-145) mmol/L Chloride (98-107) mmol/L Carbon Dioxide (22-30) mmol/L Creatinine (0.52-1.04) mg/dL Glucose (74-99) mg/dL POC Glucose (mg/dL) 143 H 116 H 112 H (70-110) mg/dL Calcium (8.4-10.2) mg/dL Total Protein (6.3-8.2) g/dL Albumin (3.5-5.0) g/dL 04/14/24 04/14/24 04/14/24 Range/Units 04:58 04:58 05:10 RBC 2.87 L (3.80-5.40) m/uL Hgb 8.8 L (11.4-16.0) gm/dL Hct 27.4 L (34.0-46.0) % Plt Count 101 L (150-450) k/uL Sodium 132 L (137-145) mmol/L Chloride 109 H (98-107) mmol/L Carbon Dioxide 20 L (22-30) mmol/L Creatinine 1.10 H (0.52-1.04) mg/dL Glucose 105 H (74-99) mg/dL POC Glucose (mg/dL) 113 H (70-110) mg/dL Calcium 8.3 L (8.4-10.2) mg/dL Total Protein 4.6 L (6.3-8.2) g/dL Albumin 2.8 L (3.5-5.0) g/dL 04/14/24 04/14/24 Range/Units 06:16 06:50 RBC (3.80-5.40) m/uL Hgb (11.4-16.0) gm/dL Hct (34.0-46.0) % Plt Count (150-450) k/uL Sodium (137-145) mmol/L Chloride (98-107) mmol/L Carbon Dioxide (22-30) mmol/L Creatinine (0.52-1.04) mg/dL Glucose (74-99) mg/dL POC Glucose (mg/dL) 162 H 154 H (70-110) mg/dL Calcium (8.4-10.2) mg/dL Total Protein (6.3-8.2) g/dL Albumin (3.5-5.0) g/dL - Imaging and Cardiology Chest x-ray: image reviewed Assessment and Plan Assessment: Coronary artery disease with left main disease, non-STEMI this admission Chest pain, shortness of breath, secondary to above Postoperative acute blood loss anemia and thrombocytopenia, expected given hemodilution History of mild nonobstructive coronary artery disease in the LAD from heart cath in 2019 Hypertension Hyperlipidemia with anaphylactic reaction to statins, cholesterol 225, LDL 155 Insulin-dependent diabetes, uncontrolled hyperglycemia with hemoglobin A1c 8.5% Left lower extremity DVT Asthma/COPD, patient is on home oxygen Lifelong non-smoker, preoperative FEV1 97% of predicted Obstructive sleep apnea with home CPAP use Chronic kidney disease Left foot drop after back surgery Chronic pain with chronic narcotic dependence Plan: Continue to maximize medical therapy with aspirin, Plavix, Zetia, beta-arlene therapy. Will increase beta-arlene therapy as tolerated Continue amiodarone for A-fib prophylaxis. Patient has had no atrial fibrillation at this point Continue oral calcium channel arlene for radial artery spasm prophylaxis Wean O2 as tolerated, encourage incentive spirometry use 10 times every hour while awake. Bronchodilators per pulmonology Increase activity, ambulate as tolerated. PT/OT/cardiac rehab consulted Will monitor daily labs and x-rays. Electrolyte replacement per protocol GI/DVT prophylaxis Pain control per current medication regimen. Toradol discontinued due to slight bump in creatinine with normal BUN Insulin management per internal medicine. Patient needs tight blood sugar control to prevent infection. Prior to surgery blood sugars were uncontrolled with A1c 8.5 Will discontinue left pleural chest tube, continue mediastinal chest tube for another 24 hours, monitor output Discontinue Pete, may bladder scan and straight cath for greater than 300 mL residual Continue to monitor and record strict accurate intake and output Daily weights Will place transfer orders for 3 S. cardiac stepdown unit, may transfer when bed available More recommendations to follow as patient progresses
--- NOTE | 2024-04-14 07:58 | P.PN ---
Subjective Progress Note Date: 04/14/24 The patient is a pleasant 68-year-old female patient was admitted to the hospital with a chest discomfort and ruled in for acute coronary event. She underwent a heart catheterization and that revealed severe disease involving the distal left main and also involving the ostial LCx and LAD. She was seen by the thoracic surgery team and she underwent CABG yesterday with CABRERA to LAD and radial artery to OM. April 13, 2024 This is postoperation day #1. The patient was extubated yesterday which she is hemodynamically stable but she is on nitro drip which I am anticipating the nitro drip will be stopped later on today. Otherwise she has been maintaining normal sinus mechanism. Blood pressure has been within normal limits. She is also on amiodarone drip which going to be stopped and started on amiodarone orally later on today as well. She is on dual antiplatelet therapy along with Zetia because she has a statin intolerance. The chest x-ray was reviewed. Examination is remarkable for regular rhythm with a distant heart sounds and clear breathing sounds bilaterally April 14, 2024 The patient was seen and evaluated this morning. She is overall doing well. The pressure appears to be slightly on the soft side and I would suggest decrease the dose of amlodipine to 2.5 mg p.o. daily. Otherwise she is on maximized medical treatment including dual antiplatelet therapy and statin. U rine output has been good. Overall the blood work was unremarkable as well. The examination is remarkable for regular rhythm with mild bilateral expiratory wheezing. Assessment CAD and status post CABG as described above Statin intolerance Hypertension Dyslipidemia Obesity Plan Continue the current medical regimen Consider decreasing the dose of amlodipine Follow-up with the patient Objective - Vital Signs Vital signs: Vital Signs Temp 99.3 F 04/14/24 04:00 Pulse 77 04/14/24 07:00 Resp 9 L 04/14/24 07:00 BP 108/95 04/14/24 07:00 Pulse Ox 96 04/14/24 07:00 FiO2 50 04/13/24 10:00 Intake & Output 04/13/24 04/14/24 04/14/24 18:59 06:59 18:59 Intake Total 1226.935 300.158 Output Total 855 1110 Balance 371.935 -809.842 Weight 90.5 kg Intake: IV 714 260 Albumin Human 5% 250 ml 250 In Empty Bag 1 bag @ 250 mls/hr IVPB ONCE ONE Rx#: [id number] CO/CI 20 PA/ART/CVP 54 Sodium Chloride 0.9% 1, 340 260 000 ml @ 20 mls/hr IV . Q24H [facility] Rx#:[id number] ceFAZolin 2 gm In Sodium 50 Chloride 0.9% 50 ml @ 100 mls/hr IVPB ONCE ONE Rx# :[id number] Intake, IV Titration 272.935 40.158 Amount Amiodarone 450 mg In 248.894 Dextrose 5% in Water 250 ml @ 0.5 MG/MIN 16.667 mls/hr IV .Q15H [facility] Rx#: [id number] Insulin Regular 100 unit 24.041 40.158 In Sodium Chloride 0.9% 100 ml @ Per Protocol IV .Q0M [facility] Rx#:[id number] Oral 240 Output: Chest Tube Drainage 340 200 Chest Tube Left Lateral 100 40 Chest Chest Tube Mediastinal 240 160 Urine 515 910 Other: Voiding Method Indwelling Catheter Indwelling Catheter ABP, PAP, CO, CI - Last Documented Arterial Blood Pressure 122/46 Pulmonary Artery Pressure 28/12 Cardiac Output 3.9 Cardiac Index 2.1 - Labs CBC & Chem 7: 04/14/24 04:58 04/14/24 04:58 Labs: Abnormal Lab Results - Last 24 Hours (Table) 04/13/24 04/13/24 04/13/24 Range/Units 08:17 10:15 11:20 RBC (3.80-5.40) m/uL Hgb (11.4-16.0) gm/dL Hct (34.0-46.0) % Plt Count (150-450) k/uL Sodium (137-145) mmol/L Chloride (98-107) mmol/L Carbon Dioxide (22-30) mmol/L Creatinine (0.52-1.04) mg/dL Glucose (74-99) mg/dL POC Glucose (mg/dL) 131 H 145 H 137 H (70-110) mg/dL Calcium (8.4-10.2) mg/dL Total Protein (6.3-8.2) g/dL Albumin (3.5-5.0) g/dL 04/13/24 04/13/24 04/13/24 Range/Units 12:55 14:18 15:59 RBC (3.80-5.40) m/uL Hgb (11.4-16.0) gm/dL Hct (34.0-46.0) % Plt Count (150-450) k/uL Sodium (137-145) mmol/L Chloride (98-107) mmol/L Carbon Dioxide (22-30) mmol/L Creatinine (0.52-1.04) mg/dL Glucose (74-99) mg/dL POC Glucose (mg/dL) 171 H 182 H 176 H (70-110) mg/dL Calcium (8.4-10.2) mg/dL Total Protein (6.3-8.2) g/dL Albumin (3.5-5.0) g/dL 04/13/24 04/13/24 04/13/24 Range/Units 17:26 19:10 19:56 RBC (3.80-5.40) m/uL Hgb (11.4-16.0) gm/dL Hct (34.0-46.0) % Plt Count (150-450) k/uL Sodium (137-145) mmol/L Chloride (98-107) mmol/L Carbon Dioxide (22-30) mmol/L Creatinine (0.52-1.04) mg/dL Glucose (74-99) mg/dL POC Glucose (mg/dL) 146 H 184 H 171 H (70-110) mg/dL Calcium (8.4-10.2) mg/dL Total Protein (6.3-8.2) g/dL Albumin (3.5-5.0) g/dL 04/13/24 04/13/24 04/13/24 Range/Units 20:55 21:48 22:53 RBC (3.80-5.40) m/uL Hgb (11.4-16.0) gm/dL Hct (34.0-46.0) % Plt Count (150-450) k/uL Sodium (137-145) mmol/L Chloride (98-107) mmol/L Carbon Dioxide (22-30) mmol/L Creatinine (0.52-1.04) mg/dL Glucose (74-99) mg/dL POC Glucose (mg/dL) 115 H 134 H 126 H (70-110) mg/dL Calcium (8.4-10.2) mg/dL Total Protein (6.3-8.2) g/dL Albumin (3.5-5.0) g/dL 04/14/24 04/14/24 04/14/24 Range/Units 00:01 00:54 03:55 RBC (3.80-5.40) m/uL Hgb (11.4-16.0) gm/dL Hct (34.0-46.0) % Plt Count (150-450) k/uL Sodium (137-145) mmol/L Chloride (98-107) mmol/L Carbon Dioxide (22-30) mmol/L Creatinine (0.52-1.04) mg/dL Glucose (74-99) mg/dL POC Glucose (mg/dL) 143 H 116 H 112 H (70-110) mg/dL Calcium (8.4-10.2) mg/dL Total Protein (6.3-8.2) g/dL Albumin (3.5-5.0) g/dL 04/14/24 04/14/24 04/14/24 Range/Units 04:58 04:58 05:10 RBC 2.87 L (3.80-5.40) m/uL Hgb 8.8 L (11.4-16.0) gm/dL Hct 27.4 L (34.0-46.0) % Plt Count 101 L (150-450) k/uL Sodium 132 L (137-145) mmol/L Chloride 109 H (98-107) mmol/L Carbon Dioxide 20 L (22-30) mmol/L Creatinine 1.10 H (0.52-1.04) mg/dL Glucose 105 H (74-99) mg/dL POC Glucose (mg/dL) 113 H (70-110) mg/dL Calcium 8.3 L (8.4-10.2) mg/dL Total Protein 4.6 L (6.3-8.2) g/dL Albumin 2.8 L (3.5-5.0) g/dL 04/14/24 04/14/24 Range/Units 06:16 06:50 RBC (3.80-5.40) m/uL Hgb (11.4-16.0) gm/dL Hct (34.0-46.0) % Plt Count (150-450) k/uL Sodium (137-145) mmol/L Chloride (98-107) mmol/L Carbon Dioxide (22-30) mmol/L Creatinine (0.52-1.04) mg/dL Glucose (74-99) mg/dL POC Glucose (mg/dL) 162 H 154 H (70-110) mg/dL Calcium (8.4-10.2) mg/dL Total Protein (6.3-8.2) g/dL Albumin (3.5-5.0) g/dL
[2024-04-14 08:37] LABS: Glucose,Whole Blood 164 mg/dL (70-110)
[2024-04-14 09:17] LABS: Glucose,Whole Blood 144 mg/dL (70-110)
[2024-04-14] MEDS ORDERED: DEXTROSE 50% SYRINGE 50 ML IVP PRN ×2 (10:29)
--- NOTE | 2024-04-14 11:44 | P.PN ---
Subjective Progress Note Date: 04/14/24 This is a 68-year-old female patient with a history of hypertension, hyperlipidemia, anaphylactic reaction to statins, diabetes mellitus, COPD, obstructive sleep apnea on home CPAP, chronic kidney disease, chronic pain syndrome she presented here to the hospital with chest pain and was found to have a non-ST segment elevation myocardial infarction. Catheterization on 04/09/2024 revealed critical disease involving the distal left main and ostial left circumflex and LAD with eccentric plaque appears to be calcified approaching almost 80%. Today she had undergone a off-pump coronary artery bypass grafting x 2 with a CABRERA to the LAD, left radial to the OM. She is seen in consultation shortly after her arrival to the intensive care unit. She is intubated on the mechanical ventilator and assist-control mode at a rate of 16, tidal volume 350, FiO2 60% and a PEEP of 10. Arterial blood gases revealed a PaO2 of 241, pCO2 44, pH 7.33. She is currently on a nitroglycerin drip at 5 mcg/min. Cleviprex drip at 1 mg/hr. Normal saline at 50 mL/h and propofol at 30 mcg/kg/min. Right IJ [place] catheter in place. Cardiac output 5.9. Cardiac index 3.2. PA pressures 36/19. CVP 10. Mediastinal and left chest tubes are in place. Chest x-ray reveals postsurgical changes with mild pulmonary vascular congestion. No pneumothorax. Small left pleural effusion. White count 5.7. Hemoglobin 8.0. Platelets 97,000. INR 1.4. Sodium 140. Potassium 4.1. Bicarb 22. BUN 25. Creatinine 0.93. Glucose 69. Albumin 3.3. AST 25. ALT 27. The patient is seen today April 13, 2024 in follow-up in the intensive care unit. Post operative day #1. She is currently up in a chair. Awake and alert in no acute distress. She drifts off to sleep easily. She does have a history of obstructive sleep apnea and utilizes CPAP at home. She was placed on BiPAP last evening 03/17 and 50% FiO2. 3 L/min per nasal cannula with O2 saturations in the 90s. Was 3.9. Cardiac index 2.1. PA pressures 28/12. CVP of 8. She has been afebrile. She remains on amiodarone at 0.5 mg/min. Normal saline at 50 mL/h. Insulin drip at 1 unit/h. Nitroglycerin drip at 5 mcg/min. Place. Chest x-ray reveals ongoing pulmonary vascular congestion. Left lower lung atelectasis. Is working with this incentive spirometer. Pulling approximately 1250 mL. Pain is well-managed. 134. Potassium 4.1. Bicarb 22. BUN 17. Creatinine 0.78. Glucose 97. She remains on heparin for DVT prophylaxis. Continued on bro nchodilators. The patient is seen today April 14, 2024 in follow-up in the intensive care unit. Postoperative day #2. She is awake and alert in no acute distress. Currently sitting up in a chair at the bedside. Maintaining good O2 saturations in the 90s on room air. Chest x-ray is showing improvement. She is working well with the incentive spirometer. She is continued on insulin currently at 7 units an hour. She remains on bronchodilators. Heparin for DVT prophylaxis. White count 9.1. Hemoglobin 8.8. Platelets 101. Sodium 132. Potassium 4.1. Bicarb 20. BUN 14. Creatinine 1.10. Glucose 105. Objective - Vital Signs Vital signs: Vital Signs Temp 98.9 F 04/14/24 08:00 Pulse 77 04/14/24 09:30 Resp 17 04/14/24 09:30 BP 96/55 04/14/24 09:30 Pulse Ox 94 L 04/14/24 09:30 FiO2 50 04/13/24 10:00 Intake & Output 04/13/24 04/14/24 04/14/24 18:59 06:59 18:59 Intake Total 1226.935 300.158 294.984 Output Total 855 1110 75 Balance 371.935 -809.842 219.984 Weight 90.5 kg Intake: IV 714 260 40 Albumin Human 5% 250 ml 250 In Empty Bag 1 bag @ 250 mls/hr IVPB ONCE ONE Rx#: [id number] CO/CI 20 PA/ART/CVP 54 Sodium Chloride 0.9% 1, 340 260 40 000 ml @ 20 mls/hr IV . Q24H [facility] Rx#:[id number] ceFAZolin 2 gm In Sodium 50 Chloride 0.9% 50 ml @ 100 mls/hr IVPB ONCE ONE Rx# :[id number] Intake, IV Titration 272.935 40.158 14.984 Amount Amiodarone 450 mg In 248.894 Dextrose 5% in Water 250 ml @ 0.5 MG/MIN 16.667 mls/hr IV .Q15H [facility] Rx#: [id number] Insulin Regular 100 unit 24.041 40.158 14.984 In Sodium Chloride 0.9% 100 ml @ Per Protocol IV .Q0M [facility] Rx#:[id number] Oral 240 240 Output: Chest Tube Drainage 340 200 Chest Tube Left Lateral 100 40 Chest Chest Tube Mediastinal 240 160 Urine 515 910 75 Other: Voiding Method Indwelling Catheter Indwelling Catheter ABP, PAP, CO, CI - Last Documented Arterial Blood Pressure 122/46 Pulmonary Artery Pressure 28/12 Cardiac Output 3.9 Cardiac Index 2.1 - Exam GENERAL EXAM: Awake, 68-year-old female, up in a chair, on room air, in no apparent distress. HEAD: Normocephalic. EYES: Normal reaction of pupils, equal size. NOSE: Clear with pink turbinates. THROAT: No erythema or exudates. NECK: No masses, no JVD. CHEST: Sternal dressing dry and intact. Heart hugger in place. Mediastinal and left pleural chest tubes in place. LUNGS: Equal air entry with no crackles, wheeze, rhonchi or dullness. CVS: S1 and S2 normal with no audible murmur, regular rhythm. ABDOMEN: No hepatosplenomegaly, normal bowel sounds, no guarding or rigidity. SPINE: No scoliosis or deformity SKIN: No rashes CENTRAL NERVOUS SYSTEM: No focal deficits, tone is normal in all 4 extremities. EXTREMITIES: GET wraps to the bilateral lower extremities. There is no peripheral edema. No clubbing, no cyanosis. Peripheral pulses are intact. - Labs CBC & Chem 7: 04/14/24 04:58 04/14/24 04:58 Labs: Abnormal Lab Results - Last 24 Hours (Table) 04/13/24 04/13/24 04/13/24 Range/Units 12:55 14:18 15:59 RBC (3.80-5.40) m/uL Hgb (11.4-16.0) gm/dL Hct (34.0-46.0) % Plt Count (150-450) k/uL Sodium (137-145) mmol/L Chloride (98-107) mmol/L Carbon Dioxide (22-30) mmol/L Creatinine (0.52-1.04) mg/dL Glucose (74-99) mg/dL POC Glucose (mg/dL) 171 H 182 H 176 H (70-110) mg/dL Calcium (8.4-10.2) mg/dL Total Protein (6.3-8.2) g/dL Albumin (3.5-5.0) g/dL 04/13/24 04/13/24 04/13/24 Range/Units 17:26 19:10 19:56 RBC (3.80-5.40) m/uL Hgb (11.4-16.0) gm/dL Hct (34.0-46.0) % Plt Count (150-450) k/uL Sodium (137-145) mmol/L Chloride (98-107) mmol/L Carbon Dioxide (22-30) mmol/L Creatinine (0.52-1.04) mg/dL Glucose (74-99) mg/dL POC Glucose (mg/dL) 146 H 184 H 171 H (70-110) mg/dL Calcium (8.4-10.2) mg/dL Total Protein (6.3-8.2) g/dL Albumin (3.5-5.0) g/dL 04/13/24 04/13/24 04/13/24 Range/Units 20:55 21:48 22:53 RBC (3.80-5.40) m/uL Hgb (11.4-16.0) gm/dL Hct (34.0-46.0) % Plt Count (150-450) k/uL Sodium (137-145) mmol/L Chloride (98-107) mmol/L Carbon Dioxide (22-30) mmol/L Creatinine (0.52-1.04) mg/dL Glucose (74-99) mg/dL POC Glucose (mg/dL) 115 H 134 H 126 H (70-110) mg/dL Calcium (8.4-10.2) mg/dL Total Protein (6.3-8.2) g/dL Albumin (3.5-5.0) g/dL 04/14/24 04/14/24 04/14/24 Range/Units 00:01 00:54 03:55 RBC (3.80-5.40) m/uL Hgb (11.4-16.0) gm/dL Hct (34.0-46.0) % Plt Count (150-450) k/uL Sodium (137-145) mmol/L Chloride (98-107) mmol/L Carbon Dioxide (22-30) mmol/L Creatinine (0.52-1.04) mg/dL Glucose (74-99) mg/dL POC Glucose (mg/dL) 143 H 116 H 112 H (70-110) mg/dL Calcium (8.4-10.2) mg/dL Total Protein (6.3-8.2) g/dL Albumin (3.5-5.0) g/dL 04/14/24 04/14/24 04/14/24 Range/Units 04:58 04:58 05:10 RBC 2.87 L (3.80-5.40) m/uL Hgb 8.8 L (11.4-16.0) gm/dL Hct 27.4 L (34.0-46.0) % Plt Count 101 L (150-450) k/uL Sodium 132 L (137-145) mmol/L Chloride 109 H (98-107) mmol/L Carbon Dioxide 20 L (22-30) mmol/L Creatinine 1.10 H (0.52-1.04) mg/dL Glucose 105 H (74-99) mg/dL POC Glucose (mg/dL) 113 H (70-110) mg/dL Calcium 8.3 L (8.4-10.2) mg/dL Total Protein 4.6 L (6.3-8.2) g/dL Albumin 2.8 L (3.5-5.0) g/dL 04/14/24 04/14/24 04/14/24 Range/Units 06:16 06:50 08:36 RBC (3.80-5.40) m/uL Hgb (11.4-16.0) gm/dL Hct (34.0-46.0) % Plt Count (150-450) k/uL Sodium (137-145) mmol/L Chloride (98-107) mmol/L Carbon Dioxide (22-30) mmol/L Creatinine (0.52-1.04) mg/dL Glucose (74-99) mg/dL POC Glucose (mg/dL) 162 H 154 H 164 H (70-110) mg/dL Calcium (8.4-10.2) mg/dL Total Protein (6.3-8.2) g/dL Albumin (3.5-5.0) g/dL 04/14/24 Range/Units 09:15 RBC (3.80-5.40) m/uL Hgb (11.4-16.0) gm/dL Hct (34.0-46.0) % Plt Count (150-450) k/uL Sodium (137-145) mmol/L Chloride (98-107) mmol/L Carbon Dioxide (22-30) mmol/L Creatinine (0.52-1.04) mg/dL Glucose (74-99) mg/dL POC Glucose (mg/dL) 144 H (70-110) mg/dL Calcium (8.4-10.2) mg/dL Total Protein (6.3-8.2) g/dL Albumin (3.5-5.0) g/dL Assessment and Plan Assessment: Non-ST segment elevation myocardial infarction, significant coronary artery disease. Status post coronary artery bypass grafting x 2 utilizing a CABRERA to the LAD, left radial artery to the OM1. Postoperative day #2 Mechanical ventilator management, expected outcome, extubated and on room air History of coronary artery disease Hypertension Hyperlipidemia Diabetes mellitus Chronic obstructive pulmonary disease Obstructive sleep apnea utilizing home CPAP Chronic kidney disease Chronic pain syndrome History of anaphylactic reaction to statins Plan: The patient was seen and evaluated Chest x-ray, labs and medications reviewed Currently stable and on room air Continue to work well with the incentive spirometer Increase her activity as tolerated Transferring to 3 S. once a bed is available I have personally seen and examined the patient, performed the documentation and the assessment and plan as written. Number of minutes spent on the visit: 10 Dictation was produced using [employer] dictation software. Please excuse any gram matical, word or spelling errors.
[2024-04-14 11:51] LABS: Glucose,Whole Blood 116 mg/dL (70-110)
[2024-04-14] MEDS: INSULIN ASPART (NovoLOG) 100 UNIT/ML VIAL SQ SCH (12:30)
[2024-04-14] MEDS: amLODIPine 2.5 MG TAB PO SCH (12:32)
--- NOTE | 2024-04-14 14:08 | PN ---
PROGRESS NOTE COPD exacerbation, NSTEMI, sepsis ruled out, metabolic encephalopathy secondary to pneumonia. MMODL / IJN: [id number] /
--- NOTE | 2024-04-14 14:32 | PN ---
PROGRESS NOTE SUBJECTIVE: Postop day #2, doing well. Blood pressures improved. Maximize medical therapy, dual antiplatelets and statin. Urine output has been good. OBJECTIVE: CARDIOVASCULAR: S1, S2. LUNGS: Transmitted upper sounds. Scattered wheeze. HEMATOLOGY: Negative Homans. ASSESSMENT: She is statin intolerant, status post coronary artery bypass graft, hypertension, chronic obstructive pulmonary disease, dyslipidemia, diabetes. Current medication regimen, amlodipine, continue with that. Keep her on breathing treatments, her oxygen, her insulin she takes at home. Prognosis guarded. MMODL / IJN: [id number] /
[2024-04-14 16:41] LABS: Glucose,Whole Blood 189 mg/dL (70-110)
[2024-04-14 19:43] LABS: Glucose,Whole Blood 192 mg/dL (70-110)
[2024-04-14] MEDS: INSULIN DETEMIR (LEVEMIR) 100 UNIT/ML SYR SQ SCH (20:02)
[2024-04-15] MEDS: DEXTROSE 5% IN WATER 100 ML with AMIODARONE 150 MG IV PRN (03:04)
[2024-04-15] MEDS: AMIODARONE 360 MG in DEXTROSE 5% IN WATER 200 ML IV ONE (03:30)
[2024-04-15 06:00] LABS: Basophils % (A) 0 %; Eosinophils # (A) 0.2 k/uL (0-0.7); Eosinophils % (A) 2 %; HCT 26.4 % (34.0-46.0); HGB 8.7 gm/dL (11.4-16.0); Lymphocytes # (A) 1.3 k/uL (1.0-4.8); Lymphocytes % (A) 15 %; MCV 94.1 fL (80.0-100.0); Mean Platelet Volume 10.3; Monocytes # (A) 0.4 k/uL (0-1.0); Monocytes % (A) 5 %; Neutrophils # (A) 6.5 k/uL (1.3-7.7); Neutrophils % (A) 76 %; Platelet Count 118 k/uL (150-450); RDW 14.9 % (11.5-15.5); WBC 8.6 k/uL (3.8-10.6)
[2024-04-15 06:13] LABS: ALT 12 U/L (4-34); AST 23 U/L (14-36); African American GFR (CKD) 74 (>60 ml/min/1.73 sqM); Albumin 2.8 g/dL (3.5-5.0); Alkaline Phosphatase 46 U/L (38-126); Anion Gap 5 mmol/L; Blood Urea Nitrogen 15 mg/dL (7-17); Calcium 8.5 mg/dL (8.4-10.2); Carbon Dioxide 17 mmol/L (22-30); Chloride 112 mmol/L (98-107); Glucose 190 mg/dL (74-99); Non-African American GFR(CKD) 64 (>60 ml/min/1.73 sqM); Potassium 4.4 mmol/L (3.5-5.1); Sodium 134 mmol/L (137-145); Total Bilirubin 0.8 mg/dL (0.2-1.3); Total Protein 4.9 g/dL (6.3-8.2)
[2024-04-15 06:15] LABS: Glucose,Whole Blood 233 mg/dL (70-110)
--- NOTE | 2024-04-15 07:14 | XR ---
EXAMINATION TYPE: XR chest 1V portable DATE OF EXAM: 04/15/2024 5:09 AM COMPARISON: Chest radiograph from one day prior. CLINICAL INDICATION: Female, 68 years old with history of Postcardiac surgery; [facility] TECHNIQUE: XR chest 1V portable Frontal view of the chest. FINDINGS: Lungs/Pleura: Low lung volumes.. There is no evidence of pleural effusion, focal consolidation, or pn eumothorax. Pulmonary vascularity: Unremarkable. Heart/mediastinum: Cardiomediastinal silhouette is prominent in size. Left atrial appendage occlusion device is present. Musculoskeletal: No acute osseous pathology. Midline sternotomy wires are noted. Other findings: None Mediastinal drainage tubes project over the heart. Removal of the left thoracotomy tube. IMPRESSION: Postsurgical changes/tube, umbilical, 2 on the left. Low lung volumes. [facility] Ines Tavarez, , 04/15/2024 7:12 AM
--- NOTE | 2024-04-15 07:43 | P.PN ---
Subjective Progress Note Date: 04/15/24 Principal diagnosis: Coronary artery disease with left main disease, non-STEMI this admission. History of mild nonobstructive coronary artery disease in the LAD from heart cath in 2020, hypertension, hyperlipidemia with anaphylactic reaction to statins, insulin-dependent diabetes, left lower extremity DVT, asthma/COPD, obstructive sleep apnea with home CPAP use, lifelong non-smoker, chronic kidney disease, left foot drop after back surgery, chronic pain with chronic narcotic dependence POD #3 off-pump CABG x 2 with CABRERA to LAD, left radial artery to obtuse marginal with endovascular harvest of the left radial artery and occlusion of the left atrial appendage with a 35 mm AtriCure clip Postoperative acute blood loss anemia and thrombocytopenia, expected given hemodilution Paroxysmal atrial fibrillation, known expected common occurrence after open heart surgery The patient was seen and examined this morning sitting up in recliner in the intensive care unit in no acute distress. Currently in sinus rhythm, hemodynamically stable. She did have an episode for about 4 hours overnight of atrial fibrillation, was restarted on IV amiodarone with conversion to sinus rhythm. Alert and awake this morning, states she did not sleep well last night due to multiple nightmares. States expected postoperative pain tolerable on current medication regimen. Remains on room air with oxygen saturation in the high 90s while inactive, does need oxygen for ambulation as her oxygen saturation dropped into the mid 80s without it. Able to achieve 1750 mL on her incentive spirometry. Mediastinal chest tube remains. Patient did ambulate to the hallway yesterday with standby assist. Labs, chest x-ray reviewed. No other new concerns. Objective - Vital Signs Vital signs: Vital Signs Temp 98.4 F 04/15/24 04:00 Pulse 110 H 04/15/24 04:00 Resp 17 04/15/24 04:00 BP 104/65 04/15/24 04:00 Pulse Ox 95 04/15/24 04:00 FiO2 50 04/13/24 10:00 Intake & Output 04/14/24 04/15/24 04/15/24 19:59 06:59 18:59 Intake Total Output Total Balance Weight Intake: IV Sodium Chloride 0.9% 1, 000 ml @ 20 mls/hr IV . Q24H [facility] Rx#:[id number] Intake, IV Titration Amount Insulin Regular 100 unit In Sodium Chloride 0.9% 100 ml @ Per Protocol IV .Q0M [facility] Rx#:[id number] Oral Output: Chest Tube Drainage Chest Tube Mediastinal Urine Other: Voiding Method # Voids ABP, PAP, CO, CI - Last Documented Arterial Blood Pressure 122/46 Pulmonary Artery Pressure 28/12 Cardiac Output 3.9 Cardiac Index 2.1 - Exam CONSTITUTIONAL: Appears comfortable, cooperative, no acute distress RESPIRATORY: Lungs sounds diminished in the bases bilaterally. Respirations even, nonlabored. Currently on room air with oxygen saturation 96%, saturation does drop into the low 80s without oxygen when ambulating. Able to achieve 1750 mL on incentive spirometry. Strong loose cough. CARDIOVASCULAR: S1, S2 present. Regular rate and rhythm, sinus rhythm on telemetry. Sternum stable. Palpable peripheral pulses bilaterally. Trace generalized edema present. No calf pain or tenderness noted. Heart hugger in place with patient demonstrating appropriate use. Antiembolism stockings, SCDs present. GASTROINTESTINAL: Abdomen soft, nontender, nondistended. Active bowel sounds present 4 quadrants. Tolerating diet. Denies flatus, positive belching GENITOURINARY: Pete discontinued yesterday, patient has voided. Urine output in the last 24 hours 1435 mL INTEGUMENTARY: Skin is warm and dry with evidence of good perfusion. Anterior chest incision well approximated and covered with dry intact dressing. Left radial artery harvest site well approximated without redness or drainage. NEUROLOGIC: Cranial nerves II through XII intact MUSKULOSKELETAL: Able to move all extremities, strength equal bilaterally, left foot drop PSYCHIATRIC: Oriented to person place and time, appropriate affect, intact judgment and insight INVASIVE LINES AND TUBES: Mediastinal chest tube present to waterseal, no air leaks present. Mediastinal tube with 120 mL serosanguineous drainage overnight, 200 mL in the last 24 hours - Allied health notes Allied health notes reviewed: nursing - Labs CBC & Chem 7: 04/15/24 05:17 04/15/24 05:17 Labs: Abnormal Lab Results - Last 24 Hours (Table) 04/14/24 04/14/24 04/14/24 Range/Units 08:36 09:15 11:49 RBC (3.80-5.40) m/uL Hgb (11.4-16.0) gm/dL Hct (34.0-46.0) % Plt Count (150-450) k/uL Sodium (137-145) mmol/L Chloride (98-107) mmol/L Carbon Dioxide (22-30) mmol/L Glucose (74-99) mg/dL POC Glucose (mg/dL) 164 H 144 H 116 H (70-110) mg/dL Total Protein (6.3-8.2) g/dL Albumin (3.5-5.0) g/dL 04/14/24 04/14/24 04/15/24 Range/Units 16:40 19:41 05:17 RBC 2.80 L (3.80-5.40) m/uL Hgb 8.7 L (11.4-16.0) gm/dL Hct 26.4 L (34.0-46.0) % Plt Count 118 L (150-450) k/uL Sodium (137-145) mmol/L Chloride (98-107) mmol/L Carbon Dioxide (22-30) mmol/L Glucose (74-99) mg/dL POC Glucose (mg/dL) 189 H 192 H (70-110) mg/dL Total Protein (6.3-8.2) g/dL Albumin (3.5-5.0) g/dL 04/15/24 04/15/24 Range/Units 05:17 06:14 RBC (3.80-5.40) m/uL Hgb (11.4-16.0) gm/dL Hct (34.0-46.0) % Plt Count (150-450) k/uL Sodium 134 L (137-145) mmol/L Chloride 112 H (98-107) mmol/L Carbon Dioxide 17 L (22-30) mmol/L Glucose 190 H (74-99) mg/dL POC Glucose (mg/dL) 233 H (70-110) mg/dL Total Protein 4.9 L (6.3-8.2) g/dL Albumin 2.8 L (3.5-5.0) g/dL - Imaging and Cardiology Chest x-ray: report reviewed, image reviewed Assessment and Plan Assessment: Coronary artery disease with left main disease, non-STEMI this admission Chest pain, shortness of breath, secondary to above Postoperative acute blood loss anemia and thrombocytopenia, expected given hemodilution Paroxysmal atrial fibrillation, known common occurrence after open heart surgery, currently sinus, status post left atrial appendage ligation History of mild nonobstructive coronary artery disease in the LAD from heart cath in 2020 Hypertension Hyperlipidemia with anaphylactic reaction to statins, cholesterol 225, LDL 155 Insulin-dependent diabetes, uncontrolled hyperglycemia with hemoglobin A1c 8.5% Left lower extremity DVT Asthma/COPD, patient is on home oxygen Lifelong non-smoker, preoperative FEV1 97% of predicted Obstructive sleep apnea with home CPAP use Chronic kidney disease Left foot drop after back surgery Chronic pain with chronic narcotic dependence Plan: Continue to maximize medical therapy with aspirin, Plavix, Zetia, beta-arlene therapy. Will increase beta-arlene therapy as tolerated Continue amiodarone for A-fib prophylaxis, will transition back to oral. No anticoagulation necessary unless patient goes in and out of A-fib or remains in A-fib greater than 24 hours Continue oral calcium channel arlene for radial artery spasm prophylaxis Use oxygen when ambulating otherwise continue on room air, encourage incentive spirometry use 10 times every hour while awake. Bronchodilators per pulmonology Increase activity, ambulate as tolerated. PT/OT/cardiac rehab following Will monitor daily labs and x-rays. Electrolyte replacement per protocol. Will give 20 mg IV push Lasix today GI/DVT prophylaxis Pain control per current medication regimen Insulin management per internal medicine. Patient needs tight blood sugar control to prevent infection. Prior to surgery blood sugars were uncontrolled with A1c 8.5 Will discontinue mediastinal chest tube Continue to monitor and record strict accurate intake and output Daily weights Shower daily starting tomorrow Transfer orders placed yesterday for 3 S. cardiac stepdown unit, no bed available, may transfer when bed available Discharge planning in progress, anticipate discharge to home with home care in the next 24 to 48 hours. Patient's sister is planning to come stay with the patient More recommendations to follow as patient progresses
[2024-04-15] MEDS: FUROSEMIDE 10 MG/ML 2 ML VIAL IV ONE (08:11)
[2024-04-15] MEDS: MAGNESIUM HYDROXIDE 2,400 MG/30 ML CUP PO PRN (08:11)
[2024-04-15] MEDS ORDERED: AMIODARONE 450 MG in DEXTROSE 5% IN WATER 250 ML IV SCH (09:15)
--- NOTE | 2024-04-15 09:17 | P.PN ---
Subjective Progress Note Date: 04/15/24 The patient is a pleasant 68-year-old female patient was admitted to the hospital with a chest discomfort and ruled in for acute coronary event. She underwent a heart catheterization and that revealed severe disease involving the distal left main and also involving the ostial LCx and LAD. She was seen by the thoracic surgery team and she underwent CABG yesterday with CABRERA to LAD and radial artery to OM. April 13, 2024 This is postoperation day #1. The patient was extubated yesterday which she is hemodynamically stable but she is on nitro drip which I am anticipating the nitro drip will be stopped later on today. Otherwise she has been maintaining normal sinus mechanism. Blood pressure has been within normal limits. She is also on amiodarone drip which going to be stopped and started on amiodarone orally later on today as well. She is on dual antiplatelet therapy along with Zetia because she has a statin intolerance. The chest x-ray was reviewed. Examination is remarkable for regular rhythm with a distant heart sounds and clear breathing sounds bilaterally April 14, 2024 The patient was seen and evaluated this morning. She is overall doing well. The pressure appears to be slightly on the soft side and I would suggest decrease the dose of amlodipine to 2.5 mg p.o. daily. Otherwise she is on maximized medical treatment including dual antiplatelet therapy and statin. U rine output has been good. Overall the blood work was unremarkable as well. The examination is remarkable for regular rhythm with mild bilateral expiratory wheezing. May 12, 2024 The patient was seen and evaluated this morning which she is doing overall well. She remains hemodynamically stable and maintaining normal sinus mechanism after brief episode of atrial fibrillation last night. She is slightly hypervolemic and she received 1 dose of IV Lasix earlier today which I would agree on. The physical examination is remarkable for stable vital signs with distant heart sounds and diminished breathing sounds bilaterally and mild bilateral lower extremities edema Assessment CAD and status post CABG as described above Statin intolerance Hypertension Dyslipidemia Obesity Plan Continue the current medical regimen Continue monitor the kidney function and electrolytes and hemoglobin Follow-up with the patient Objective - Vital Signs Vital signs: Vital Signs Temp 98.4 F 04/15/24 07:45 Pulse 74 04/15/24 07:45 Resp 12 04/15/24 07:45 BP 127/70 04/15/24 07:45 Pulse Ox 97 04/15/24 07:45 FiO2 50 04/13/24 10:00 Intake & Output 04/14/24 04/15/24 04/15/24 19:59 06:59 18:59 Intake Total Output Total Balance Weight Intake: IV Sodium Chloride 0.9% 1, 000 ml @ 20 mls/hr IV . Q24H [facility] Rx#:[id number] Intake, IV Titration Amount Insulin Regular 100 unit In Sodium Chloride 0.9% 100 ml @ Per Protocol IV .Q0M [facility] Rx#:[id number] Oral Output: Chest Tube Drainage Chest Tube Mediastinal Urine Other: Voiding Method # Voids ABP, PAP, CO, CI - Last Documented Arterial Blood Pressure 122/46 Pulmonary Artery Pressure 28/12 Cardiac Output 3.9 Cardiac Index 2.1 - Labs CBC & Chem 7: 04/15/24 05:17 04/15/24 05:17 Labs: Abnormal Lab Results - Last 24 Hours (Table) 04/14/24 04/14/24 04/14/24 Range/Units 11:49 16:40 19:41 RBC (3.80-5.40) m/uL Hgb (11.4-16.0) gm/dL Hct (34.0-46.0) % Plt Count (150-450) k/uL Sodium (137-145) mmol/L Chloride (98-107) mmol/L Carbon Dioxide (22-30) mmol/L Glucose (74-99) mg/dL POC Glucose (mg/dL) 116 H 189 H 192 H (70-110) mg/dL Total Protein (6.3-8.2) g/dL Albumin (3.5-5.0) g/dL 04/15/24 04/15/24 04/15/24 Range/Units 05:17 05:17 06:14 RBC 2.80 L (3.80-5.40) m/uL Hgb 8.7 L (11.4-16.0) gm/dL Hct 26.4 L (34.0-46.0) % Plt Count 118 L (150-450) k/uL Sodium 134 L (137-145) mmol/L Chloride 112 H (98-107) mmol/L Carbon Dioxide 17 L (22-30) mmol/L Glucose 190 H (74-99) mg/dL POC Glucose (mg/dL) 233 H (70-110) mg/dL Total Protein 4.9 L (6.3-8.2) g/dL Albumin 2.8 L (3.5-5.0) g/dL
--- NOTE | 2024-04-15 10:20 | P.PN ---
Subjective Progress Note Date: 04/15/24 Principal diagnosis: Coronary artery disease with critical stenosis in left main distal circumflex and LAD with calcified plaque 80% stenosis Altered mental status likely related to sepsis and right lower lobe pneumonia noted CT scan of the head negative Elevated D-dimer likely related to sepsis Right lower lobe pneumonia Sleep disordered breathing and sleep apnea Chronic persistent asthma mild to moderate intermittent type Chest pain and tightness, atypical chest pain, cardiovascular service following, patient is on IV heparin troponin elevated Kidney disease, monitor and trend urine output and renal functions closely Sleep disordered breathing and sleep apnea April 15, 2024, patient seen eval examined during rounds labs reviewed medications reviewed care plan discussed, patient continued to be on supplemental oxygen during the day and using BiPAP 10 and 5 as needed patient is afebrile hemodynamic status stable, blood pressure 120/70 respiratory rate is 12 -16 heart rate 74, her saturation 97% on 2 L nasal cannula,Chest x-ray done today reviewed postsurgical changes with lower lung volume labs done today hemoglobin hematocrit 8.7/26 WBC 8.6 chemistry reviewed sodium low 134 renal functions within normal limit. Patient edition did not sleep very well last night, patient went into A-fib with RVR, requiring amiodarone now switched to oral April 13, 2024, patient seen evaluate examined in ICU patient is s/p CABG x 2 with CABRERA to LAD and left radial to obtuse marginal, patient is awake and alert successfully weaned and extubated sitting upright in the chair, [place]-Nika catheter has been removed as well, 2 chest tubes are present no airleak is present. Patient concerned about CPAP machine, felt that not allowed to use as per desire, discussed with the staff respiratory therapist to continue BiPAP machine each night and as needed during the day, patient is on 10/5 with 50% oxygen. Currently she is on 3 L nasal cannula. Labs reviewed chest x-ray reviewed subsegmental atelectasis present patient has a incentive spirometer recommended to continue deep breathing exercises incentive spirometry April 12, 2024, patient is being planned for surgery later on today with Age IV access established, patient is afebrile hemodynamically stable, blood sugar improved to 111 this morning with the escalation of long and short acting insulin and discontinuation of steroids April 11, 2024, patient seen eval examined sitting upright on the bed, on supplemental oxygen, ongoing intermittent shortness of breath spasm, denies any chest pain currently, discussed with patient at length about finding of cardiac cath angiogram explained to her and daughter, awaiting further recommendation from cardiothoracic surgery, labs are not done will repeat labs blood sugar in mid 100 to mid 200 range, PTT in therapeutic range remains on IV heparin April 10, 2024, patient found to have critical stenosis of over 80%, significant stenosis seen in left main distal portion along with circumflex near ostium and LAD with eccentric plaques and calcified appearance CT surgery has been consulted awaiting their recommendation patient remains on heparin. Labs include CBC within normal limit PTT is 62 BUN/creatinine 32/1.18 overall stable sugars are mid 100 to mid 200 range April 09, 2024, seen evaluate examined during rounds labs reviewed medications reviewed, facial congestion as well as cough improved on IV antibiotics and bronchodilators, patient is awaiting for cardiac catheter angiogram April 08, 2024, patient seen eval examined during rounds labs reviewed medications with care plan discussed, respiratory status overall stable however continue to require supplemental oxygen, patient continue to use old CPAP mach ine. Patient has been evaluated by cardiovascular service being planned for cardiac cath angiogram tomorrow. Patient has nasal stuffiness congestion, sinus tenderness, on IV Rocephin and doxycycline in addition patient has 2 infected teeth on the left side, will continue antibiotics along with oral prednisone. Patient is on IV heparin as well April 05, 2024, patient seen eval examined during rounds still patient is in the ER holding area, patient has been using CPAP each night and as needed during the day, mental status improved more awake and alert. Afebrile with oxygen saturation 94%, blood pressure 160/82 saturation 94% on 2 L oxygen. Blood sugar in mid 200 range. Patient remains on bronchodilator inhaled corticosteroid broad-spectrum antibiotics and IV steroids tolerating well 68-year-old female who presented to the hospital with chest pain and left arm pain note that having some confusion as she cannot recall the name of her dog. Specific questioning denies any fever chills denies any headache photophobia lacrimation, denies any weakness in any part of the body, she has other active medical problems significant asthma COPD and sleep apnea patient has a CPAP machine as well. Chest x-ray unremarkable ECG normal sinus rhythm with right bundle branch block, CT scan of the chest no evidence of aortic dissection or aneurysm no PE, prominent interstitium seen right lower lobe cardiomegaly, diverticulosis. Acute intracranial process CT scan of the head labs include CBC within normal limit, chemistry BUN/creatinine 17/1.17, glucose was 222, troponin elevated 0.077, D-dimer is 1.66 down to 1.19 Past medical history significant for chronic asthmatic bronchitis, coronary artery disease, COPD, diabetes, DVT, dyslipidemia, hypertension hypertensive cardiovascular disease, obstructive sleep apnea chronic kidney disease Objective - Vital Signs Vital signs: Vital Signs Temp 98.4 F 04/15/24 07:45 Pulse 74 04/15/24 07:45 Resp 12 04/15/24 07:45 BP 127/70 04/15/24 07:45 Pulse Ox 97 04/15/24 07:45 FiO2 50 04/13/24 10:00 Intake & Output 04/14/24 04/15/24 04/15/24 19:59 06:59 18:59 Intake Total Output Total 300 Balance -300 Weight Intake: IV Sodium Chloride 0.9% 1, 000 ml @ 20 mls/hr IV . Q24H AMPARO Rx#:[id number] Intake, IV Titration Amount Insulin Regular 100 unit In Sodium Chloride 0.9% 100 ml @ Per Protocol IV .Q0M AMPARO Rx#:[id number] Oral Output: Chest Tube Drainage Chest Tube Mediastinal Urine 300 Other: Voiding Method Bedside Commode # Voids ABP, PAP, CO, CI - Last Documented Arterial Blood Pressure 122/46 Pulmonary Artery Pressure 28/12 Cardiac Output 3.9 Cardiac Index 2.1 - Exam - Constitutional General appearance: average body habitus, cooperative, disheveled - EENT Eyes: EOMI, PERRLA Ears: bilateral: normal, positive tenderness left maxillary area and swelling left jaw - Neck Carotids: bilateral: upstroke normal Thyroid: bilateral: normal size - Respiratory Respiratory: right: rales - Cardiovascular Rhythm: regular Heart sounds: normal: S1, S2 - Gastrointestinal General gastrointestinal: normal bowel sounds - Integumentary Integumentary: normal turgor - Neurologic Neurologic: CNII-XII intact - Musculoskeletal Musculoskeletal: generalized weakness - Psychiatric Psychiatric: A&O x's 3, appropriate affect, intact judgment & insight - Labs CBC & Chem 7: 04/15/24 05:17 04/15/24 05:17 Labs: Abnormal Lab Results - Last 24 Hours (Table) 04/14/24 04/14/24 04/14/24 Range/Units 11:49 16:40 19:41 RBC (3.80-5.40) m/uL Hgb (11.4-16.0) gm/dL Hct (34.0-46.0) % Plt Count (150-450) k/uL Sodium (137-145) mmol/L Chloride (98-107) mmol/L Carbon Dioxide (22-30) mmol/L Glucose (74-99) mg/dL POC Glucose (mg/dL) 116 H 189 H 192 H (70-110) mg/dL Total Protein (6.3-8.2) g/dL Albumin (3.5-5.0) g/dL 04/15/24 04/15/24 04/15/24 Range/Units 05:17 05:17 06:14 RBC 2.80 L (3.80-5.40) m/uL Hgb 8.7 L (11.4-16.0) gm/dL Hct 26.4 L (34.0-46.0) % Plt Count 118 L (150-450) k/uL Sodium 134 L (137-145) mmol/L Chloride 112 H (98-107) mmol/L Carbon Dioxide 17 L (22-30) mmol/L Glucose 190 H (74-99) mg/dL POC Glucose (mg/dL) 233 H (70-110) mg/dL Total Protein 4.9 L (6.3-8.2) g/dL Albumin 2.8 L (3.5-5.0) g/dL Assessment and Plan Assessment: Atrial fibrillation with rapid ventricular response responding well with amiodarone infusion now being switched to oral Coronary artery disease with critical stenosis in left main distal circumflex and LAD with calcified plaque 80% stenosis, cardiothoracic surgery is evaluating pending further recommendation, status post CABG x 2 with CABRERA to LAD and RA to circumflex, doing well Sleep disordered breathing and sleep apnea, continue BiPAP 10/5 each night and as needed during the day Respiratory failure, on 2 L oxygen, continue deep breathing exercises incentive spirometry, titrate oxygen down as tolerated Uncontrolled diabetes and hyperglycemia, Lantus dose is escalated, patient placed on high intensity glucose control, steroids has been discontinued Acute on chronic sinusitis Unstable angina/coronary artery as above Altered mental status likely related to sepsis and right lower lobe pneumonia noted CT scan of the head negative, improved significantly Elevated D-dimer likely related to chronic inflammatory process Right lower lobe pneumonia, off of antibiotics now Sleep disordered breathing and sleep apnea Chronic persistent asthma mild to moderate intermittent type Kidney disease, monitor and trend urine output and renal functions closely Sleep disordered breathing and sleep apnea Plan: Awaiting CT surgery recommendation and evaluation, patient remains on IV heparin repeat labs Will continue patient on oral Augmentin monitor observe off of IV Rocephin and doxycycline On oral steroids, with Medrol Dosepak Bronchodilators with inhaled corticosteroid aerosolized along with DuoNeb Continue CPAP machine from home, will arrange new CPAP machine on outpatient basis patient likely will need new polysomnogram we will arrange it on outpatient basis as well Follow-up on cardiac cath angiogram results and reports Patient will likely need extraction Time with Patient: Greater than 30
[2024-04-15 11:26] LABS: Glucose,Whole Blood 193 mg/dL (70-110)
--- NOTE | 2024-04-15 11:38 | P.PN ---
Subjective Progress Note Date: 04/15/24 This is a 68-year-old female patient with a history of hypertension, hyperlipidemia, anaphylactic reaction to statins, diabetes mellitus, COPD, obstructive sleep apnea on home CPAP, chronic kidney disease, chronic pain syndrome she presented here to the hospital with chest pain and was found to have a non-ST segment elevation myocardial infarction. Catheterization on 04/09/2024 revealed critical disease involving the distal left main and ostial left circumflex and LAD with eccentric plaque appears to be calcified approaching almost 80%. Today she had undergone a off-pump coronary artery bypass grafting x 2 with a CABRERA to the LAD, left radial to the OM. She is seen in consultation shortly after her arrival to the intensive care unit. She is intubated on the mechanical ventilator and assist-control mode at a rate of 16, tidal volume 350, FiO2 60% and a PEEP of 10. Arterial blood gases revealed a PaO2 of 241, pCO2 44, pH 7.33. She is currently on a nitroglycerin drip at 5 mcg/min. Cleviprex drip at 1 mg/hr. Normal saline at 50 mL/h and propofol at 30 mcg/kg/min. Right IJ [place]-Nika catheter in place. Cardiac output 5.9. Cardiac index 3.2. PA pressures 36/19. CVP 10. Mediastinal and left chest tubes are in place. Chest x-ray reveals postsurgical changes with mild pulmonary vascular congestion. No pneumothorax. Small left pleural effusion. White count 5.7. Hemoglobin 8.0. Platelets 97,000. INR 1.4. Sodium 140. Potassium 4.1. Bicarb 22. BUN 25. Creatinine 0.93. Glucose 69. Albumin 3.3. AST 25. ALT 27. The patient is seen today April 13, 2024 in follow-up in the intensive care unit. Post operative day #1. She is currently up in a chair. Awake and alert in no acute distress. She drifts off to sleep easily. She does have a history of obstructive sleep apnea and utilizes CPAP at home. She was placed on BiPAP last evening 03/17 and 50% FiO2. 3 L/min per nasal cannula with O2 saturations in the 90s. Was 3.9. Cardiac index 2.1. PA pressures 28/12. CVP of 8. She has been afebrile. She remains on amiodarone at 0.5 mg/min. Normal saline at 50 mL/h. Insulin drip at 1 unit/h. Nitroglycerin drip at 5 mcg/min. Place. Chest x-ray reveals ongoing pulmonary vascular congestion. Left lower lung atelectasis. Is working with this incentive spirometer. Pulling approximately 1250 mL. Pain is well-managed. 134. Potassium 4.1. Bicarb 22. BUN 17. Creatinine 0.78. Glucose 97. She remains on heparin for DVT prophylaxis. Continued on bro nchodilators. The patient is seen today April 14, 2024 in follow-up in the intensive care unit. Postoperative day #2. She is awake and alert in no acute distress. Currently sitting up in a chair at the bedside. Maintaining good O2 saturations in the 90s on room air. Chest x-ray is showing improvement. She is working well with the incentive spirometer. She is continued on insulin currently at 7 units an hour. She remains on bronchodilators. Heparin for DVT prophylaxis. White count 9.1. Hemoglobin 8.8. Platelets 101. Sodium 132. Potassium 4.1. Bicarb 20. BUN 14. Creatinine 1.10. Glucose 105. The patient is seen today April 15, 2024 in follow-up in the intensive care unit. Postoperative day #3. She is currently sitting up in a chair. Awake and alert in no acute distress. Maintaining good O2 saturations in the 90s on 2 L/min per nasal cannula. She is afebrile. Hemodynamically stable. Chest x-ray shows postsurgical changes. No pneumothorax. Working well with the incentive spirometer. White count 8.6. Hemoglobin 8.7. Platelets 118. Sodium 134. Potassium 4.4. Bicarb 17. BUN 15. Creatinine 0.92. Glucose 190. She is continued on bronchodilators. Heparin for DVT prophylaxis. Objective - Vital Signs Vital signs: Vital Signs Temp 98.4 F 04/15/24 07:45 Pulse 74 04/15/24 07:45 Resp 12 04/15/24 07:45 BP 127/70 04/15/24 07:45 Pulse Ox 97 04/15/24 07:45 FiO2 50 04/13/24 10:00 Intake & Output 04/14/24 04/15/24 04/15/24 19:59 06:59 18:59 Intake Total 400 Output Total 900 Balance -500 Weight Intake: IV Sodium Chloride 0.9% 1, 000 ml @ 20 mls/hr IV . Q24H [facility]ARO Rx#:[id number] Intake, IV Titration Amount Insulin Regular 100 unit In Sodium Chloride 0.9% 100 ml @ Per Protocol IV .Q0M [facility]ARO Rx#:[id number] Oral 400 Output: Chest Tube Drainage Chest Tube Mediastinal Urine 900 Other: Voiding Method Bedside Commode # Voids ABP, PAP, CO, CI - Last Documented Arterial Blood Pressure 122/46 Pulmonary Artery Pressure 28/12 Cardiac Output 3.9 Cardiac Index 2.1 - Exam GENERAL EXAM: Awake, 68-year-old female, up in a chair, on 2 L nasal cannula, in no apparent distress. HEAD: Normocephalic. EYES: Normal reaction of pupils, equal size. NOSE: Clear with pink turbinates. THROAT: No erythema or exudates. NECK: No masses, no JVD. CHEST: Sternal dressing dry and intact. Heart hugger in place. LUNGS: Equal air entry with no crackles, wheeze, rhonchi or dullness. CVS: S1 and S2 normal with no audible murmur, regular rhythm. ABDOMEN: No hepatosplenomegaly, normal bowel sounds, no guarding or rigidity. SPINE: No scoliosis or deformity SKIN: No rashes CENTRAL NERVOUS SYSTEM: No focal deficits, tone is normal in all 4 extremities. EXTREMITIES: There is no peripheral edema. No clubbing, no cyanosis. Peripheral pulses are intact. - Labs CBC & Chem 7: 04/15/24 05:17 04/15/24 05:17 Labs: Abnormal Lab Results - Last 24 Hours (Table) 04/14/24 04/14/24 04/15/24 Range/Units 16:40 19:41 05:17 RBC 2.80 L (3.80-5.40) m/uL Hgb 8.7 L (11.4-16.0) gm/dL Hct 26.4 L (34.0-46.0) % Plt Count 118 L (150-450) k/uL Sodium (137-145) mmol/L Chloride (98-107) mmol/L Carbon Dioxide (22-30) mmol/L Glucose (74-99) mg/dL POC Glucose (mg/dL) 189 H 192 H (70-110) mg/dL Total Protein (6.3-8.2) g/dL Albumin (3.5-5.0) g/dL 04/15/24 04/15/24 04/15/24 Range/Units 05:17 06:14 11:24 RBC (3.80-5.40) m/uL Hgb (11.4-16.0) gm/dL Hct (34.0-46.0) % Plt Count (150-450) k/uL Sodium 134 L (137-145) mmol/L Chloride 112 H (98-107) mmol/L Carbon Dioxide 17 L (22-30) mmol/L Glucose 190 H (74-99) mg/dL POC Glucose (mg/dL) 233 H 193 H (70-110) mg/dL Total Protein 4.9 L (6.3-8.2) g/dL Albumin 2.8 L (3.5-5.0) g/dL Assessment and Plan Assessment: Non-ST segment elevation myocardial infarction, significant coronary artery disease. Status post coronary artery bypass grafting x 2 utilizing a CABRERA to the LAD, left radial artery to the OM1. Postoperative day #3 Mechanical ventilator management, expected outcome, extubated and on room air History of coronary artery disease Hypertension Hyperlipidemia Diabetes mellitus Chronic obstructive pulmonary disease Obstructive sleep apnea utilizing home CPAP Chronic kidney disease Chronic pain syndrome History of anaphylactic reaction to statins Plan: The patient was seen and evaluated Chest x-ray, labs and medications reviewed Continue to work well with the incentive spirometer Increase her activity as tolerated Transferring to 3 S. once a bed is available She will be followed by her own hearing aid specialist out of the ICU I have personally seen and examined the patient, performed the documentation and the assessment and plan as written. Number of minutes spent on the visit: 10 Dictation was produced using [employer] software. Please excuse any grammatical, word or spelling errors.
--- NOTE | 2024-04-15 13:07 | PN ---
PROGRESS NOTE COPD exacerbation and non-STEMI, sepsis ruled out, metabolic encephalopathy. MMODL / IJN: [id number] /
[2024-04-15] MEDS: bisacodyL 10 MG SUPP RECTAL PRN (14:01)
[2024-04-15 16:38] LABS: Glucose,Whole Blood 224 mg/dL (70-110)
[2024-04-15] MEDS: ALBUMIN HUMAN 25% 50 ML in EMPTY BAG 1 BAG IVPB ONE (17:03)
[2024-04-15] MEDS: MD COMMUNICATION TO PHARMACY 1 EACH MISC PO ONE ×4 (17:03)
[2024-04-15] MEDS: PHENYLEPHRINE 10 MG/ML VIAL IV ONE (17:03)
[2024-04-15] MEDS: ceFAZolin 1,000 MG in SODIUM CHLORIDE 0.9% IRRIGATIO 1,000 ML IRRIGATION ONE (17:04)
[2024-04-15] MEDS: ALBUMIN HUMAN 5% 500 ML in EMPTY BAG 1 BAG IVPB ONE ×5 (17:04→17:05)
[2024-04-15] MEDS: CHLORHEXIDINE GLUCONATE 15 ML CUP MUCOUS MEM ONE (17:04)
[2024-04-15] MEDS: HEPARIN SODIUM 1,000 UN/ML (10ML VL) IV ONE (17:05)
[2024-04-15] MEDS: CALCIUM CHLORIDE 100 MG/ML 10 ML SYRINGE IVP ONE (17:05)
[2024-04-15] MEDS: CLEVIDIPINE BUTYRATE 25 MG in EMPTY BAG 1 BAG IV SCH (17:05)
[2024-04-15] MEDS: DILTIAZEM 125 MG in SODIUM CHLORIDE 0.9% 100 ML IV SCH (17:05)
[2024-04-15] MEDS: HEPARIN SODIUM,PORCINE (1 ML) 5,000 UNIT in SODIUM CHLORIDE 0.9% 500 ML 500 ML IV ONE (17:06)
[2024-04-15] MEDS: MANNITOL 25% 12.5 GM/50 ML VIAL IV ONE ×2 (17:06)
[2024-04-15] MEDS: MAGNESIUM SULFATE 16.24 MEQ in EMPTY SYRINGE 1 SYR IV ONE (17:06)
[2024-04-15] MEDS: NITROGLYCERIN-D5W PMX 25 MG/250 ML BTL IV ONE (17:07)
[2024-04-15] MEDS: PAPAVERINE 360 MG in SODIUM CHLORIDE 0.9% 90 ML IV ONE (17:07)
[2024-04-15] MEDS: NITROGLYCERIN-D5W PMX 50 MG in DEXTROSE/WATER 1 250ML.BAG IV SCH (17:07)
[2024-04-15] MEDS: PROTAMINE SULFATE 250 MG in EMPTY BAG 1 BAG IV ONE (17:08)
[2024-04-15] MEDS: SODIUM BICARB 8.4% 50 ML SYR (1 MEQ/ML) IV ONE (17:08)
[2024-04-15] MEDS: PROTAMINE SULFATE 10 MG/ML 25 ML VIAL IV ONE (17:08)
[2024-04-15] MEDS: PHENYLEPHRINE 40 MG in SODIUM CHLORIDE 0.9% 250 ML IV ONE (17:08)
[2024-04-15] MEDS: TRANEXAMIC ACID 2,000 MG in SODIUM CHLORIDE 0.9% 80 ML IV ONE ×2 (17:08)
[2024-04-15 20:04] LABS: Glucose,Whole Blood 194 mg/dL (70-110)
--- NOTE | 2024-04-16 03:30 | PN ---
PROGRESS NOTE SUBJECTIVE: A 68-year-old white female, status post CABG surgery. She is in a lot of pain clinically. She is up in the chair. OBJECTIVE: VITAL SIGNS: Respiratory rate 16 to 18, temp 98.3, pulse 79, blood pressure 106/66, O2 of 92% on room air. CARDIOVASCULAR: S1, S2. LUNGS: Scattered wheeze and rhonchi. HEMATOLOGY: Negative Homans. PSYCH: Fair mood and affect. GI: Soft, nontender. LUNGS: Transmitted upper sounds. MUSCULOSKELETAL: Chest wounds intact with a chest brace on. HEMATOLOGY: Negative Homans. ASSESSMENT: Status post coronary artery bypass graft, chronic obstructive pulmonary disease. Prognosis is guarded. Patient stabilized. Possibly go home in the next 24 to 48 hours. Continues on 2 L oxygen and she uses CPAP. Atrial fibrillation. Prognosis guarded. Ambulate as tolerated. Continue current treatment. MMODL / CORTEZN: [id number] /
[2024-04-16 06:06] LABS: Glucose,Whole Blood 181 mg/dL (70-110)
--- NOTE | 2024-04-16 07:27 | P.PN ---
Subjective Progress Note Date: 04/16/24 Principal diagnosis: Coronary artery disease with left main disease, non-STEMI this admission. History of mild nonobstructive coronary artery disease in the LAD from heart cath in 2020, hypertension, hyperlipidemia with anaphylactic reaction to statins, insulin-dependent diabetes, left lower extremity DVT, asthma/COPD, obstructive sleep apnea with home CPAP use, lifelong non-smoker, chronic kidney disease, left foot drop after back surgery, chronic pain with chronic narcotic dependence POD #4 off-pump CABG x 2 with CABRERA to LAD, left radial artery to obtuse marginal with endovascular harvest of the left radial artery and occlusion of the left atrial appendage with a 35 mm AtriCure clip Postoperative acute blood loss anemia and thrombocytopenia, expected given hemodilution Paroxysmal atrial fibrillation, known expected common occurrence after open heart surgery The patient was seen and examined this morning sitting up in recliner on the cardiac stepdown unit in no acute distress. Currently in sinus rhythm, hemodynamically stable. No further episodes of atrial fibrillation. Alert and awake this morning, states she slept a bit better last night. States expected postoperative pain tolerable on current medication regimen. Remains on room air with oxygen saturation in the high 90s while inactive, does need oxygen for ambulation as her oxygen saturation drops into the mid 80s without it. Able to achieve 1500 mL on her incentive spirometry. Patient has ambulated into the hallway with standby assist. Chest x-ray reviewed, labs pending. No other new concerns. Objective - Vital Signs Vital signs: Vital Signs Temp 97.6 F 04/16/24 03:18 Pulse 80 04/16/24 03:18 Resp 16 04/16/24 03:18 BP 114/66 04/16/24 03:18 Pulse Ox 94 L 04/16/24 03:18 FiO2 50 04/13/24 10:00 Intake & Output 04/15/24 04/16/24 04/16/24 18:59 06:59 18:59 Intake Total 400 Output Total 1200 500 Balance -800 -500 Weight 91.4 kg Intake: Oral 400 Output: Urine 1200 500 Other: Voiding Method Bedside Commode Bedside Commode # Voids 1 # Bowel Movements 1 0 ABP, PAP, CO, CI - Last Documented Arterial Blood Pressure 122/46 Pulmonary Artery Pressure 28/12 Cardiac Output 3.9 Cardiac Index 2.1 - Exam CONSTITUTIONAL: Appears comfortable, cooperative, no acute distress RESPIRATORY: Lungs sounds diminished in the bases bilaterally. Respirations even, nonlabored. Currently on room air with oxygen saturation 94%, saturation does drop into the low 80s without oxygen when ambulating. Able to achieve 1500 mL on incentive spirometry. Strong loose cough. CARDIOVASCULAR: S1, S2 present. Regular rate and rhythm, sinus rhythm on telemetry. Sternum stable. Palpable peripheral pulses bilaterally. Trace generalized edema present. No calf pain or tenderness noted. Heart hugger in place with patient demonstrating appropriate use. Antiembolism stockings, SCDs present. GASTROINTESTINAL: Abdomen soft, nontender, nondistended. Active bowel sounds present 4 quadrants. Tolerating diet. Positive bowel movement 04/15 GENITOURINARY: Continues to void, urine output in the last 24 hours 1700 mL INTEGUMENTARY: Skin is warm and dry with evidence of good perfusion. Anterior chest incision well approximated and covered with dry intact dressing. Left radial artery harvest site well approximated without redness or drainage. NEUROLOGIC: Cranial nerves II through XII intact MUSKULOSKELETAL: Able to move all extremities, strength equal bilaterally, left foot drop PSYCHIATRIC: Oriented to person place and time, appropriate affect, intact judgment and insight - Allied health notes Allied health notes reviewed: nursing - Labs CBC & Chem 7: 04/15/24 05:17 04/15/24 05:17 Labs: Abnormal Lab Results - Last 24 Hours (Table) 04/15/24 04/15/24 04/15/24 Range/Units 11: 16:36 20:03 POC Glucose (mg/dL) 193 H 224 H 194 H (70-110) mg/dL 04/16/24 Range/Units 06:05 POC Glucose (mg/dL) 181 H (70-110) mg/dL - Imaging and Cardiology Chest x-ray: image reviewed Assessment and Plan Assessment: Coronary artery disease with left main disease, non-STEMI this admission Chest pain, shortness of breath, secondary to above Postoperative acute blood loss anemia and thrombocytopenia, expected given hemodilution Paroxysmal atrial fibrillation, known common occurrence after open heart surgery, currently sinus, status post left atrial appendage ligation History of mild nonobstructive coronary artery disease in the LAD from heart cath in 2019 Hypertension Hyperlipidemia with anaphylactic reaction to statins, cholesterol 225, LDL 155 Insulin-dependent diabetes, uncontrolled hyperglycemia with hemoglobin A1c 8.5% Left lower extremity DVT Asthma/COPD, patient is on home oxygen Lifelong non-smoker, preoperative FEV1 97% of predicted Obstructive sleep apnea with home CPAP use Chronic kidney disease Left foot drop after back surgery Chronic pain with chronic narcotic dependence Plan: Continue to maximize medical therapy with aspirin, Plavix, Zetia, beta-arlene therapy. Will increase beta-arlene therapy as tolerated Continue amiodarone for A-fib prophylaxis. No anticoagulation necessary unless patient goes in and out of A-fib or remains in A-fib greater than 24 hours Continue oral calcium channel arlene for radial artery spasm prophylaxis Use oxygen when ambulating otherwise continue on room air, encourage incentive spirometry use 10 times every hour while awake. Bronchodilators per pulmonology Increase activity, ambulate as tolerated. PT/OT/cardiac rehab following Will monitor daily labs and x-rays. Electrolyte replacement per protocol GI/DVT prophylaxis Pain control per current medication regimen Insulin management per internal medicine. Patient needs tighter blood sugar control to prevent infection. Prior to surgery blood sugars were uncontrolled with A1c 8.5 Continue to monitor and record strict accurate intake and output Daily weights Shower daily starting today Discharge planning in progress, anticipate discharge to home with home care this afternoon. Patient's sister is planning to come stay with the patient More recommendations to follow as patient progresses
--- NOTE | 2024-04-16 07:31 | XR ---
EXAMINATION TYPE: XR chest 2V DATE OF EXAM: 04/16/2024 6:26 AM COMPARISON: 04/15/2024 CLINICAL INDICATION: Female, 68 years old with history of post cardiac surgery, TECHNIQUE: XR chest 2V view(s) obtained. FINDINGS: The heart size is normal. The pulmonary vasculature is normal. The lungs are clear. Some mild blunting left costophrenic angle may be present. Correlate for minima l effusion. Sternotomy changes are present compatible with CABG. IMPRESSION: 1. Minimal left pleural effusion. [facility], , 04/16/2024 7:28 AM
[2024-04-16 07:41] VITALS: RESP 14
[2024-04-16 08:34] LABS: HCT 27.9 % (34.0-46.0); Hypochromasia Slight; MCH 30.7 pg (25.0-35.0); MCHC 32.1 g/dL (31.0-37.0); MCV 95.5 fL (80.0-100.0); Mean Platelet Volume 9.6; Platelet Count 163 k/uL (150-450); RBC 2.92 m/uL (3.80-5.40); RDW 14.7 % (11.5-15.5); WBC 11.4 k/uL (3.8-10.6)
[2024-04-16 08:43] LABS: African American GFR (CKD) 54 (>60 ml/min/1.73 sqM); Anion Gap 6 mmol/L; Blood Urea Nitrogen 16 mg/dL (7-17); Calcium 8.7 mg/dL (8.4-10.2); Carbon Dioxide 25 mmol/L (22-30); Chloride 106 mmol/L (98-107); Glucose 203 mg/dL (74-99); Magnesium 2.3 mg/dL (1.6-2.3); Non-African American GFR(CKD) 47 (>60 ml/min/1.73 sqM); Potassium 4.1 mmol/L (3.5-5.1); Sodium 137 mmol/L (137-145)
[2024-04-16 11:23] LABS: Glucose,Whole Blood 205 mg/dL (70-110)
--- NOTE | 2024-04-16 11:48 | P.PN ---
Subjective Progress Note Date: 04/16/24 Principal diagnosis: Coronary artery disease with critical stenosis in left main distal circumflex and LAD with calcified plaque 80% stenosis Altered mental status likely related to sepsis and right lower lobe pneumonia noted CT scan of the head negative Elevated D-dimer likely related to sepsis Right lower lobe pneumonia Sleep disordered breathing and sleep apnea Chronic persistent asthma mild to moderate intermittent type Chest pain and tightness, atypical chest pain, cardiovascular service following, patient is on IV heparin troponin elevated Kidney disease, monitor and trend urine output and renal functions closely Sleep disordered breathing and sleep apnea Number fourth 2023, seen and evaluated care plan discussed with IR, patient will likely need repeat sleep study and a new CPAP machine, will arrange it as outpatient, from cardiac standpoint doing well likely will be discharged later on today patient back in sinus rhythm no A-fib has been noted, also noted that patient desaturated on activity and exertion, patient will likely need home oxygen on outpatient basis April 15, 2024, patient seen eval examined during rounds labs reviewed medications reviewed care plan discussed, patient continued to be on supplemental oxygen during the day and using BiPAP 10 and 5 as needed patient is afebrile hemodynamic status stable, blood pressure 120/70 respiratory rate is 12-16 heart rate 74, her saturation 97% on 2 L nasal cannula,Chest x-ray done today reviewed postsurgical changes with lower lung volume labs done today hemoglobin hematocrit 8.7/26 WBC 8.6 chemistry reviewed sodium low 134 renal functions within normal limit. Patient edition did not sleep very well last night, patient went into A-fib with RVR, requiring amiodarone now switched to oral April 13, 2024, patient seen evaluate examined in ICU patient is s/p CABG x 2 with CABRERA to LAD and left radial to obtuse marginal, patient is awake and alert successfully weaned and extubated sitting upright in the chair, [place] catheter has been removed as well, 2 chest tubes are present no airleak is present. Patient concerned about CPAP machine, felt that not allowed to use as per desire, discussed with the staff respiratory therapist to continue BiPAP machine each night and as needed during the day, patient is on 10/5 with 50% oxygen. Currently she is on 3 L nasal cannula. Labs reviewed chest x-ray reviewed subsegmental atelectasis present patient has a incentive spirometer recommended to continue deep breathing exercises incentive spirometry April 12, 2024, patient is being planned for surgery later on today with Age IV access established, patient is afebrile hemodynamically stable, blood sugar improved to 111 this morning with the escalation of long and short acting insulin and discontinuation of steroids April 11, 2024, patient seen eval examined sitting upright on the bed, on supplemental oxygen, ongoing intermittent shortness of breath spasm, denies any chest pain currently, discussed with patient at length about finding of cardiac cath angiogram explained to her and daughter, awaiting further recommendation from cardiothoracic surgery, labs are not done will repeat labs blood sugar in mid 100 to mid 200 range, PTT in therapeutic range remains on IV heparin April 10, 2024, patient found to have critical stenosis of over 80%, significant stenosis seen in left main distal portion along with circumflex near ostium and LAD with eccentric plaques and calcified appearance CT surgery has been consulted awaiting their recommendation patient remains on heparin. Labs include CBC within normal limit PTT is 62 BUN/creatinine 32/1.18 overall stable sugars are mid 100 to mid 200 range April 09, 2024, seen evaluate examined during rounds labs reviewed medications reviewed, facial congestion as well as cough improved on IV antibiotics and bronchodilators, patient is awaiting for cardiac catheter angiogram April 08, 2024, patient seen eval examined during rounds labs reviewed medications with care plan discussed, respiratory status overall stable however continue to require supplemental oxygen, patient continue to use old CPAP machine. Patient has been evaluated by cardiovascular service being planned for cardiac cath angiogram tomorrow. Patient has nasal stuffiness congestion, sinus tenderness, on IV Rocephin and doxycycline in addition patient has 2 infected teeth on the left side, will continue antibiotics along with oral prednisone. Patient is on IV heparin as well April 05, 2024, patient seen eval examined during rounds still patient is in the ER holding area, patient has been using CPAP each night and as needed during the day, mental status improved more awake and alert. Afebrile with oxygen saturation 94%, blood pressure 160/82 saturation 94% on 2 L oxygen. Blood sugar in mid 200 range. Patient remains on bronchodilator inhaled corticosteroid broad-spectrum antibiotics and IV steroids tolerating well 68-year-old female who presented to the hospital with chest pain and left arm pa in note that having some confusion as she cannot recall the name of her dog. Specific questioning denies any fever chills denies any headache photophobia lacrimation, denies any weakness in any part of the body, she has other active medical problems significant asthma COPD and sleep apnea patient has a CPAP machine as well. Chest x-ray unremarkable ECG normal sinus rhythm with right bundle branch block, CT scan of the chest no evidence of aortic dissection or aneurysm no PE, prominent interstitium seen right lower lobe cardiomegaly, diverticulosis. Acute intracranial process CT scan of the head labs include CBC within normal limit, chemistry BUN/creatinine 17/1.17, glucose was 222, troponin elevated 0.077, D-dimer is 1.66 down to 1.19 Past medical history significant for chronic asthmatic bronchitis, coronary artery disease, COPD, diabetes, DVT, dyslipidemia, hypertension hypertensive cardiovascular disease, obstructive sleep apnea chronic kidney disease Objective - Vital Signs Vital signs: Vital Signs Temp 98.4 F 04/16/24 07:39 Pulse 76 04/16/24 08:51 Resp 14 04/16/24 07:39 BP 114/69 04/16/24 07:39 Pulse Ox 94 L 04/16/24 07:39 FiO2 50 04/13/24 10:00 Intake & Output 04/15/24 04/16/24 04/16/24 18:59 06:59 18:59 Intake Total 400 240 Output Total 1200 500 Balance -800 -500 240 Weight 91.4 kg Intake: Oral 400 240 Output: Urine 1200 500 Other: Voiding Method Bedside Commode Bedside Commode # Voids 1 # Bowel Movements 1 0 ABP, PAP, CO, CI - Last Documented Arterial Blood Pressure 122/46 Pulmonary Artery Pressure 28/12 Cardiac Output 3.9 Cardiac Index 2.1 - Exam - Constitutional General appearance: average body habitus, cooperative, disheveled - EENT Eyes: EOMI, PERRLA Ears: bilateral: normal, positive tenderness left maxillary area and swelling left jaw - Neck Carotids: bilateral: upstroke normal Thyroid: bilateral: normal size - Respiratory Respiratory: right: rales - Cardiovascular Rhythm: regular Heart sounds: normal: S1, S2 - Gastrointestinal General gastrointestinal: normal bowel sounds - Integumentary Integumentary: normal turgor - Neurologic Neurologic: CNII-XII intact - Musculoskeletal Musculoskeletal: generalized weakness - Psychiatric Psychiatric: A&O x's 3, appropriate affect, intact judgment & insight - Labs CBC & Chem 7: 04/16/24 07:55 04/16/24 07:55 Labs: Abnormal Lab Results - Last 24 Hours (Table) 04/15/24 04/15/24 04/16/24 Range/Units 16:36 20:03 06:05 WBC (3.8-10.6) k/uL RBC (3.80-5.40) m/uL Hgb (11.4-16.0) gm/dL Hct (34.0-46.0) % Creatinine (0.52-1.04) mg/dL Glucose (74-99) mg/dL POC Glucose (mg/dL) 224 H 194 H 181 H (70-110) mg/dL 04/16/24 04/16/24 04/16/24 Range/Units 07:55 07:55 11:20 WBC 11.4 H (3.8-10.6) k/uL RBC 2.92 L (3.80-5.40) m/uL Hgb 9.0 L (11.4-16.0) gm/dL Hct 27.9 L (34.0-46.0) % Creatinine 1.19 H (0.52-1.04) mg/dL Glucose 203 H (74-99) mg/dL POC Glucose (mg/dL) 205 H (70-110) mg/dL Assessment and Plan Assessment: Atrial fibrillation with rapid ventricular response responding well with amiodarone infusion now being switched to oral Coronary artery disease with critical stenosis in left main distal circumflex and LAD with calcified plaque 80% stenosis, cardiothoracic surgery is evaluating pending further recommendation, status post CABG x 2 with CABRERA to LAD and RA to circumflex, doing well Sleep disordered breathing and sleep apnea, continue BiPAP 10/5 each night and as needed during the day Respiratory failure, on 2 L oxygen, continue deep breathing exercises incentive spirometry, titrate oxygen down as tolerated Uncontrolled diabetes and hyperglycemia, Lantus dose is escalated, patient placed on high intensity glucose control, steroids has been discontinued Acute on chronic sinusitis Unstable angina/coronary artery as above Altered mental status likely related to sepsis and right lower lobe pneumonia noted CT scan of the head negative, improved significantly Elevated D-dimer likely related to chronic inflammatory process Right lower lobe pneumonia, off of antibiotics now Sleep disordered breathing and sleep apnea Chronic persistent asthma mild to moderate intermittent type Kidney disease, monitor and trend urine output and renal functions closely Sleep disordered breathing and sleep apnea Plan: Awaiting CT surgery recommendation, possible discharge later Will continue to monitor patient off of antibiotic On oral steroids, tapered and DC'd Bronchodilators with inhaled corticosteroid aerosolized along with DuoNeb Continue CPAP machine from home, will arrange new CPAP machine on outpatient basis patient likely will need new polysomnogram we will arrange it on outpatient basis as well Follow-up on cardiac cath angiogram results and reports Patient will likely need extraction Time with Patient: Greater than 30
--- NOTE | 2024-04-16 11:51 | P.DS ---
Providers Date of admission: 04/03/24 21:34 Expected date of discharge: 04/16/24 Attending physician: Can Mojica Consults: 04/03/24 21:32 Consult Physician Urgent Consulting Provider: [facility] Consult Reason/Comments: Elevated troponin, unstable angina Do you want consulting provider notified?: Yes 04/04/24 09:52 Consult Physician Routine Consulting Provider: Terry Powers Consult Reason/Comments: copd Do you want consulting provider notified?: Yes 04/09/24 18:30 Consult Physician Routine Consulting Provider: Yi Mcnally Consult Reason/Comments: Evaluation for CABG Do you want consulting provider notified?: Yes 04/11/24 11:04 Consult to Anesthesia Routine Consulting Provider: Anesthesia,Services Consult Reason/Comments: Cardiac Surgery Pre-Op 04/12/24 11:59 Consult Physician Routine Consulting Provider: Todd Chavarria Consult 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/Comments: 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 Consult: post cardiac surgery Do you want consulting provider notified?: Yes Consult Physician Routine Consulting Provider: Tavo Lisa Consult Reason/Comments: med mgmt Do you want consulting provider notified?: Already Contacted [facility] Course: FINAL DIAGNOSIS: Coronary artery disease with left main disease, non-STEMI this admission Chest pain, shortness of breath, secondary to above Postoperative acute blood loss anemia and thrombocytopenia, expected given hemodilution Paroxysmal atrial fibrillation, known common occurrence after open heart surgery, currently sinus History of mild nonobstructive coronary artery disease in the LAD from heart cath in 2019 Hypertension Hyperlipidemia with anaphylactic reaction to statins, cholesterol 225, LDL 155 Insulin-dependent diabetes, uncontrolled hyperglycemia with hemoglobin A1c 8.5% Left lower extremity DVT Asthma/COPD, patient is on home oxygen Lifelong non-smoker, preoperative FEV1 97% of predicted Obstructive sleep apnea with home CPAP use Chronic kidney disease Left foot drop after back surgery Chronic pain with chronic narcotic dependence PRINCIPAL PROCEDURE: Off-pump CABG x 2 with CABRERA to LAD, left radial artery to obtuse marginal Endovascular harvest of the left radial artery Occlusion of the left atrial appendage with a 35 mm AtriCure clip HISTORY OF PRESENT ILLNESS: This is a 68-year-old female who follows outpatient with Dr. Tavo Lisa for internal medicine. She presented to [facility] emergency room on April 03, 2024 with complaints of chest pain with radiation to her left arm associated with shortness of breath. The patient reported the symptoms had been going on for probably about a month. In addition she complained of problems finding her words and forgetfulness. She denied any fever, nausea, vomiting, dizziness, or any other symptomatology. In the emergency room EKG demonstrated sinus rhythm with nonspecific ST changes. Chest x-ray demonstrated no acute cardiopulmonary process. She underwent a thoracic CT demonstrating no evidence of aortic dissection, aneurysm, pulmonary embolism. Brain CT demonstrated no acute process. Lab work was unremarkable except D- dimer 1.66, creatinine 1.17, and troponin elevation 0.077. She was ruled in for non-STEMI and admitted for evaluation and treatment with consultation placed to cardiology. Transthoracic echocardiogram was completed on April 04 demonstrating normal left ventricular systolic function with EF 55 to 60%, mild mitral and tricuspid regurgitation. Due to her elevated troponin she was recommended to undergo heart catheterization which was completed by Dr. Agosto revealing distal left main stenosis 80% involving the proximal LAD and circumflex also with 80% stenosis. The right coronary artery demonstrated only mild disease. Due to these findings consultation was placed to cardiothoracic surgery for revascularization recommendations. She was recommended to undergo surgical revascularization. The usual perioperative course was discussed in detail with the patient and her family, all risks and benefits were explained, all questions were answered, and consent was obtained to proceed with surgery. The patient kept inpatient due to the nature of her disease process. HOSPITAL COURSE: The patient was brought to the preoperative area 04/12/24, prepared in the usual fashion, and subsequently taken to the operating room where Dr. Mojica performed two-vessel off-pump CABG. Upon completion of surgery the patient was transferred to the cardiovascular intensive care unit where she was recovered and monitored hemodynamically. She was extubated, all lines, tubes, and drips were discontinued when appropriate, and she was transferred to [facility] cardiac stepdown unit for further monitoring and rehabilitation. She did have a short bout of paroxysmal atrial fibrillation which was successfully treated with amiodarone. Her oxygen was titrated down, she continued to work with physical and occupational therapy, she was tolerating oral diet, her pain w as controlled, and she was ready to be discharged to home with [facility] on postoperative day #4. She received written and verbal instruction regarding her medications, activity restrictions, signs and symptoms requiring physician notification, and follow-up appointments. Patient Condition at Discharge: Stable Plan - Discharge Summary Discharge Rx Participant: Yes New Discharge Prescriptions: New Amoxic-Pot Clav 875-125Mg [Augmentin 875-125] 1 each PO Q12HR 7 Days #14 tab Ipratropium-Albuterol Nebulize [Duoneb 0.5 mg-3 mg/3 ml Soln] 3 ml INHALATION RT-QID 30 Days #120 each methylPREDNISolone Dose Pack [Medrol Dose Pack] 24 mg PO DAILY 5 Days #1 tab INSULIN ASPART (NovoLOG) [NovoLOG (formulary)] 0 unit SQ ACHS each Budesonide [Pulmicort] 0.5 mg INHALATION RT-BID 30 Days #60 ml amLODIPine [Norvasc] 2.5 mg PO DAILY@1200 #30 tab Clopidogrel [Plavix] 75 mg PO DAILY #30 tab Sennosides-Docusate Sodium [Senokot-S] 2 each PO HS PRN tab PRN Reason: Constipation Loratadine [Claritin] 10 mg PO DAILY tab Dapagliflozin Propanediol [Farxiga] 10 mg PO DAILY 30 Days #30 tab Amiodarone [Cordarone] 400 mg PO BID #39 tab Metoprolol Tartrate [Lopressor] 25 mg PO BID #60 tab Acetaminophen Tab [Tylenol] 650 mg PO Q4HR PRN tab PRN Reason: Fever And/ Or Mild Pain (1-3) Ezetimibe [Zetia] 10 mg PO DAILY #30 tab Continue Montelukast [Singulair] 10 mg PO HS Aspirin [Adult Low Dose Aspirin EC] 81 mg PO DAILY INSULIN LISPRO (humaLOG) [humaLOG] See Protocol SQ AC-TID Dicyclomine [Bentyl] 10 mg PO TID HYDROcodone/APAP 5-325MG [[place] 5-325] 1 tab PO TID Bumetanide [BUMEX] 1 mg PO DAILY 90 Days #90 tab Pantoprazole [Protonix] 40 mg PO BID Azelastine HCl [Astelin Nasal Gap] 2 sprays NASAL BID Gabapentin 300 mg PO TID Insulin Glargine,Hum.rec.anlog [Lantus Solostar Pen] 30 units SQ HS Discontinued atenoloL [Tenormin] 50 mg PO BID 90 Days #180 tab Discharge Medication List Montelukast [Singulair] 10 mg PO HS 10/17/20 [History] Aspirin [Adult Low Dose Aspirin EC] 81 mg PO DAILY 04/21/22 [History] HYDROcodone/APAP 5-325MG [[place]em 5-325] 1 tab PO TID 05/21/23 [History] Bumetanide [BUMEX] 1 mg PO DAILY 90 Days #90 tab 05/26/23 [Rx] Azelastine HCl [Astelin Nasal Gap] 2 sprays NASAL BID 09/26/23 [History] Pantoprazole [Protonix] 40 mg PO BID 09/26/23 [History] Dicyclomine [Bentyl] 10 mg PO TID 04/03/24 [History] Gabapentin 300 mg PO TID 04/03/24 [History] INSULIN LISPRO (humaLOG) [humaLOG] See Protocol SQ AC-TID 04/03/24 [History] Insulin Glargine,Hum.rec.anlog [Lantus Solostar Pen] 30 units SQ HS 04/03/24 [History] Amoxic-Pot Clav 875-125Mg [Augmentin 875-125] 1 each PO Q12HR 7 Days #14 tab 04/08/24 [Rx] Budesonide [Pulmicort] 0.5 mg INHALATION RT-BID 30 Days #60 ml 04/08/24 [Rx] Dapagliflozin Propanediol [Farxiga] 10 mg PO DAILY 30 Days #30 tab 04/08/24 [Rx] INSULIN ASPART (NovoLOG) [NovoLOG (formulary)] 0 unit SQ ACHS each 04/08/24 [Rx] Ipratropium-Albuterol Nebulize [Duoneb 0.5 mg-3 mg/3 ml Soln] 3 ml INHALATION RT -QID 30 Days #120 each 04/08/24 [Rx] Loratadine [Claritin] 10 mg PO DAILY tab 04/08/24 [Rx] methylPREDNISolone Dose Pack [Medrol Dose Pack] 24 mg PO DAILY 5 Days #1 tab 04/08/24 [Rx] Acetaminophen Tab [Tylenol] 650 mg PO Q4HR PRN tab 04/16/24 [Rx] Amiodarone [Cordarone] 400 mg PO BID #39 tab 04/16/24 [Rx] Clopidogrel [Plavix] 75 mg PO DAILY #30 tab 04/16/24 [Rx] Ezetimibe [Zetia] 10 mg PO DAILY #30 tab 04/16/24 [Rx] Metoprolol Tartrate [Lopressor] 25 mg PO BID #60 tab 04/16/24 [Rx] Sennosides-Docusate Sodium [Senokot-S] 2 each PO HS PRN tab 04/16/24 [Rx] amLODIPine [Norvasc] 2.5 mg PO DAILY@1200 #30 tab 04/16/24 [Rx] Follow up Appointment(s)/Referral(s): Blaine Herring MD [STAFF PHYSICIAN] - 1 Week (Cardiology office will call with appointment per Fern) Amanda Suresh NPC [Nurse Practitioner] - 04/19/24 10:00 am (You will be seen in the surgeon's office behind the hospital in [facility], [address]. Office phone number is (across from Dr. Lisa's office)) [facility], [NON-STAFF] - 1-2 Days (You should receive visit from psychometric examiner the day after discharge, then 2-3 times per week until you start cardiac rehab. Physical and Occupational Therapy should visit at least once, may continue to visit if needed) Rehab Franc GARCIA,Cardiac [NON-STAFF] - 4 Weeks (You will receive a phone call in approximately 4-6 weeks for evaluation for cardiac rehab) Tavo Lisa MD [Primary Care Provider] - 04/19/24 10:30 am Can Mojica MD [STAFF PHYSICIAN] - 05/03/24 3:00 pm Terry Powers MD [STAFF PHYSICIAN] - 05/01/24 11:45 am Ambulatory/Diagnostic Orders: Complete Blood Count w/diff [LAB.AMB] Time Frame: 3 Days, Location: None Selected Comprehensive Metabolic Panel [LAB.AMB] Time Frame: 3 Days, Location: None Selected Activity/Diet/Wound Care/Special Instructions: DISCHARGE INSTRUCTIONS: 1. No driving for 4 weeks, or until physician gives their ok. 2. The patient should sleep in their own bed, no medical bed needed. 3. Stairs are not an issue. If the bedroom is upstairs, it is advised that the patient go up at night and down in the morning for the first week. Go slowly, using handrail and take 1 step at a time. 4. MARYANN hose are to be worn for 30 days post surgery or until physician discontinues. 5. Heart hugger is to be worn 100% of the time until physician discontinues.(except when showering) 6. No lifting, pushing, or pulling more than 10 pounds for 12 weeks. The physician will advise of any restriction changes. 7. The patient is expected to continue the prescribed walking program. 8. Continue pain control per as needed orders. 9. Continue with incentive spirometry and splinting/heart hugger until otherwise directed by the physician. 10. Must shower daily using liquid antibacterial soap 11. Routine sternal incision care. No powders, lotions, ointments on incisions. No dressings are necessary on incisions unless they are draining. Dermabond tape is to remain on sternal incision until surgeon follow-up. 12. Please call surgeon/LEASING COORDINATOR for temp greater than 101 F or purulent drainage from incisions. 13. You should weigh yourself daily, record and bring log with you to follow up appointments. 14. All prescriptions given by surgeon for 30 days. Refills need to be filled through automatic machine attendant/primary care physician. 15. A Red armband has been placed on the patient. It should be worn for 30 days post discharge from surgery and will be removed by the cardiac surgeons. If an ER visit is necessary, please make sure the number on the Red armband is called before going to ER. 16. You have been referred to and are expected to begin Cardiac Rehab in approximately 4-6 weeks. 17. Quitting smoking is the most important step you can take to improve your health. For additional information and assistance to quit smoking, please call the [place] tobacco quit line (6-002-POUG-NOW/ ) or online: https ://www.[place].gov/[facility]/epua-iy-pueiugk/chronicdiseases/tobacco/lma-ss-vlrp-to [facility] HOME HEALTH SERVICES TO PROVIDE: RN SKILLED HOME CARE SERVICES FOR POST-OP SURGICAL PATIENTS WITH THE FOLLOWI NG: Coronary Artery Bypass Surgery (CABG), Mitral Valve Replacement/Repair ( MVR), Aortic Valve Replacement/Repair (AVR) RN TO CONTINUE EDUCATION FROM ``ROAD TO A HEALTH HEART PATIENT EDUCATION MANUAL (GIVEN TO PATIENT IN THE HOSPITAL) MEDICATION RECONCILIATION WITH EDUCATION NEEDED ON FIRST HOME VISIT EMPHASIZE IMPORTANCE OF WEARING BREAST SUPPORT/HEART HUGGER ENCOURAGE USE OF INCENTIVE SPIROMETER 10 X EVERY HOUR WHILE AWAKE ENCOURAGE UTILIZATION OF LOWER EXTREMITY COMPRESSION STOCKINGS/MARYANN HOSE and ELEVATE LEGS ABOVE LEVEL OF HEART WHILE AT REST. ENCOURAGE AMBULATION 3-5x/day INCREASING TOLERATES, WHILE AVOIDING EXTREMES IN TEMPERATURE FREQUENCY: RN TO OPEN THE PATIENT WITHIN 24 HOURS OF DISCHARGE FROM THE HOSPITAL WITH TELEHEALTH INSTALLED AT [facility], RN TO VISIT 2-3 X A WEEK FOR 4 WEEKS ESTABLISHED BY PATIENT NEEDS. LABORATORY: CBC, CMP TO BE DRAWN ON THE THIRD DAY HOME, (RAN STAT) FAX RESULTS TO [phone]. TELEHEALTH PARAMETERS: WEIGHT: NOTIFY MD OF WEIGHT GAIN OF 2 LBS IN 24 HOURS OR 5 LBS IN ONE WEEK HR: NOTIFY MD OF HR <55 BPM OR HR>100 BPM BP: NOTIFY MD IF BP <90/55 OR BP>140/100 O2 SAT: NOTIFY MD IF PO2<93% ON ROOM AIR SEND TELEHEALTH REPORT TO DIVING COACH AND CARDIOVASCULAR SURGEON THE FIRST WEEK OF CARE AND THEN BI-WEEKLY. PLEASE ADDITIONALLY COMMUNICATE ANY ABNORMALS AND NEW FINDINGS TO THE SURGEONS OFFICE. Discharge Disposition: HOME WITH HOME HEALTH SERVICES
[2024-04-16 12:21] VITALS: BP 126/71; PULSE 74; TEMP 97.5
--- NOTE | 2024-04-16 15:02 | P.PN ---
Subjective Progress Note Date: 04/16/24 On 04/16/2024, the patient is being seen for a follow-up. The patient is status post carotid bypass surgery and the patient underwent bypass x 2 with CABRERA to LAD and radial to OM1 and the patient is currently postop day #4. She is doing extremely well and the patient is currently on room air oxygen with a pulse ox of 93%. The chest x-ray from today done on 04/16/2024 showed a small left-sided pleural effusion. Otherwise no other acute abnormalities. She has a CPAP and her bedside and the patient is on an APAP mode pressures of 5/15 cm of water and she is using an AirFit F30 fullface mask. The mask seal is poor and the patient is having significant amount of leaks and her AHI is quite elevated based on her compliance data from her machine and this needs to be addressed at a later stage an outpatient basis. Meanwhile, her cardiac rhythm is sinus. Hemoglobin is at 9, WBC count 11.4, BUN is at 16 with a creatinine of 1.1 and his sodium is at 137. The patient remains on amiodarone 4 mg p.o. twice a day. The patient remains on aspirin and Plavix. The patient remains on metoprolol 25 mg p.o. twice a day. The patient remains on Levemir 30 units at bedtime and NovoLog/scale coverage. No other significant events overnight and the patient is ambulating. Objective - Vital Signs Vital signs: Vital Signs Temp 98.4 F 04/16/24 07:39 Pulse 76 04/16/24 08:51 Resp 14 04/16/24 07:39 BP 114/69 04/16/24 07:39 Pulse Ox 94 L 04/16/24 07:39 FiO2 50 04/13/24 10:00 Intake & Output 04/15/24 04/16/24 04/16/24 18:59 06:59 18:59 Intake Total 400 240 Output Total 1200 500 Balance -800 -500 240 Weight 91.4 kg Intake: Oral 400 240 Output: Urine 1200 500 Other: Voiding Method Bedside Commode Bedside Commode # Voids 1 # Bowel Movements 1 0 ABP, PAP, CO, CI - Last Documented Arterial Blood Pressure 122/46 Pulmonary Artery Pressure 28/12 Cardiac Output 3.9 Cardiac Index 2.1 - Exam GENERAL EXAM: Awake, 68-year-old female, up in a chair, on room air oxygen, in no apparent distress. HEAD: Normocephalic. EYES: Normal reaction of pupils, equal size. NOSE: Clear with pink turbinates. THROAT: No erythema or exudates. NECK: No masses, no JVD. CHEST: Sternal dressing dry and intact. Heart hugger in place. LUNGS: Equal air entry with no crackles, wheeze, rhonchi or dullness. CVS: S1 and S2 normal with no audible murmur, regular rhythm. ABDOMEN: No hepatosplenomegaly, normal bowel sounds, no guarding or rigidity. SPINE: No scoliosis or deformity SKIN: No rashes CENTRAL NERVOUS SYSTEM: No focal deficits, tone is normal in all 4 extremities. EXTREMITIES: There is no peripheral edema. No clubbing, no cyanosis. Peripheral pulses are intact. - Labs CBC & Chem 7: 04/16/24 07:55 04/16/24 07:55 Labs: Abnormal Lab Results - Last 24 Hours (Table) 04/15/24 04/15/24 04/15/24 Range/Units 11: 16:36 20:03 WBC (3.8-10.6) k/uL RBC (3.80-5.40) m/uL Hgb (11.4-16.0) gm/dL Hct (34.0-46.0) % Creatinine (0.52-1.04) mg/dL Glucose (74-99) mg/dL POC Glucose (mg/dL) 193 H 224 H 194 H (70-110) mg/dL 04/16/24 04/16/24 04/16/24 Range/Units 06:05 07:55 07:55 WBC 11.4 H (3.8-10.6) k/uL RBC 2.92 L (3.80-5.40) m/uL Hgb 9.0 L (11.4-16.0) gm/dL Hct 27.9 L (34.0-46.0) % Creatinine 1.19 H (0.52-1.04) mg/dL Glucose 203 H (74-99) mg/dL POC Glucose (mg/dL) 181 H (70-110) mg/dL Assessment and Plan Plan: Non-ST segment elevation myocardial infarction, significant coronary artery disease. Status post coronary artery bypass grafting x 2 utilizing a CABRERA to the LAD, left radial artery to the OM1. Postoperative day # 4 Postthoracotomy, currently extubated on room air oxygen. Surgical wound site is clean and intact and the chest x-ray showing a small left-sided pleural effusion coronary artery disease Hypertension Hyperlipidemia Diabetes mellitus Chronic obstructive pulmonary disease Obstructive sleep apnea utilizing home CPAP Chronic kidney disease Chronic pain syndrome History of anaphylactic reaction to statins Plan: Patient currently on room air oxygen Patient on aspirin and Plavix Continue metoprolol Continue amiodarone Continue to work well with the incentive spirometer The patient CPAP treatment needs to be further optimized as the patient continues to have increased apneic events despite being on APAP mode. Increase mobility and activity
--- NOTE | 2024-04-16 15:26 | P.PN ---
Subjective Progress Note Date: 04/16/24 Consult reason: chest pain History of present illness: This is a 68-year-old female patient seen in [address] Zeyad Chavez in the office with past medical history of diabetes, hypertension, hyperlipidemia, known to have nonobstructive coronary artery disease, history of DVT, obstructive sleep apnea on CPAP, chronic kidney disease stage II. We have been asked to evaluate the patient for unstable angina and elevated troponin. Patient gives history that for a couple of days she developed some chest pressure that was on the left upper area for at least 3 days. It is a pressure type sensation. Following that by about 1 day, patient developed problems with finding words and forgetting words, stuttering started yesterday. Blood pressure 135/71, heart rate 78, patient is seen today in the emergency center waiting for bed on the cardiac stepdown unit. Heparin drip has been started. EKG: Sinus rhythm with left axis deviation nonspecific ST changes Chest x-ray: No acute process CAT scan of the brain revealed no acute intracranial process. CT angio of the thorax and abdominal pelvis: No evidence of aortic dissection, aneurysm or occlusion. No evidence of pulmonary embolus. Increased interstitial lung markings most pronounced in the medial aspect of the right lower lobe correlate for chronic scarring versus sequela prior surgery. Mild cardiomegaly. Moderate to severe coronary atherosclerosis. Laboratory studies: CBC within normal limits. D-dimer 1.66. Sodium 140, potassium 3.7, BUN 17 creatinine 1.17. Troponin 0.071, 0.077, 0.068. Home cardiac medications: Aspirin 81 mg daily, atenolol 50 mg twice daily, Bumex 1 mg daily. Cardiac catheterization performed 07/18/2019 revealed mild nonobstructive coronary artery disease involving the LAD. 04/05 Patient is seen today and examined in the emergency center still waiting for a bed on the cardiac stepdown unit. Patient states that her speech is back to normal. She denies having any chest pain. She does have some achiness in her chest with movement. She does have tenderness in her chest wall. She has been maintained on IV heparin which will be discontinued today. Blood pressure 140/86, heart rate 66, pulse ox 96% on room air. Echocardiogram reveals EF of 55 to 60%, mild concentric left ventricular hypertrophy. Mild mitral annular calcification and aortic sclerosis without restriction. Mild mitral and tricuspid regurgitation. No significant pulmonary hypertension. No pericardial effusion. Probable fat pad. 04/06 Patient is seen today on the cardiac stepdown unit. She denies having any chest pain. She has been maintained on IV heparin which we will discontinue. No repeat lab work has been done which we will order stat today. Blood pressure readings have been elevated 164/89. Heart rate is in the 60s and 70s, pulse ox 99% on 3 L nasal cannula. Triglycerides 79.9, cholesterol 225, LDL 155. Physical examination: Gen: This is a 68-year-old female in no acute distress VS: reviewed HEENT: Head is atraumatic, normocephalic. Pupils equal, round. Sclerae is anicteric. NECK: Supple. No JVD. LUNGS: Clear to auscultation. No wheezes or rhonchi. No intercostal retractions. HEART: Regular rate and rhythm. No murmur. ABDOMEN: Soft No tenderness. EXTREMITIES: No pedal edema. No calf tenderness. NEUROLOGICAL: Patient is awake, alert and oriented x3. Assessment: Atypical chest pain, troponins have a flat pattern. Neurological symptoms with forgetting words, stuttering, resolved Elevated D-dimer, negative for PE History of nonobstructive coronary artery disease in the LAD on cardiac catheterization from 2019 Diabetes Hypertension, uncontrolled Hyperlipidemia history of DVT Obstructive sleep apnea on CPAP Chronic kidney disease stage II Anaphylactic reaction to statins Plan: Continue patient on the following cardiac medications: Aspirin 81 mg daily, atenolol 50 mg twice daily, Bumex 1 mg daily oral, Farxiga 10 mg daily No statin due to anaphylactic reaction Discontinue heparin drip and discontinue Nitropaste Stat BMP Add amlodipine for blood pressure control Consider adding GET inhibitor or ARB May consider Lexiscan stress test on Tuesday if patient is still here. If patient is discharged before Tuesday, plan for follow-up in the office with Dr. Herring for outpatient Lexiscan stress test. Nurse practitioner note has been reviewed, I agree with documented findings and plan of care. Patient was seen and examined. The patient is a pleasant 68-year-old female patient was admitted to the hospital with a chest discomfort and ruled in for acute coronary event. She underwent a heart catheterization and that revealed severe disease involving the distal left main and also involving the ostial LCx and LAD. She was seen by the thoracic surgery team and she underwent CABG yesterday with CABRERA to LAD and radial artery to OM. April 13, 2024 This is postoperation day #1. The patient was extubated yesterday which she is hemodynamically stable but she is on nitro drip which I am anticipating the nitro drip will be stopped later on today. Otherwise she has been maintaining normal sinus mechanism. Blood pressure has been within normal limits. She is also on amiodarone drip which going to be stopped and started on amiodarone orally later on today as well. She is on dual antiplatelet therapy along with Zetia because she has a statin intolerance. The chest x-ray was reviewed. Examination is remarkable for regular rhythm with a distant heart sounds and clear breathing sounds bilaterally April 14, 2024 The patient was seen and evaluated this morning. She is overall doing well. The pressure appears to be slightly on the soft side and I would suggest decrease the dose of amlodipine to 2.5 mg p.o. daily. Otherwise she is on maximized medical treatment including dual antiplatelet therapy and statin. Urine output has been good. Overall the blood work was unremarkable as well. The examination is remarkable for regular rhythm with mild bilateral expiratory wheezing. April 15, 2024 The patient was seen and evaluated this morning which she is doing overall well. She remains hemodynamically stable and maintaining normal sinus mechanism after brief episode of atrial fibrillation last night. She is slightly hypervolemic and she received 1 dose of IV Lasix earlier today which I would agree on. The physical examination is remarkable for stable vital signs with distant heart sounds and diminished breathing sounds bilaterally and mild bilateral lower extremities edema 04/16 Patient is seen and examined. She states she is planning for discharge home today. She has been up and taking a shower this morning and has also walked in the hallway. Blood pressure 114/69, heart rate 77, pulse ox 94% on room air. Repeat blood work reveals hemoglobin 9, WBC 11.4, BUN 16 creatinine 1.19. Assessment CAD and status post CABG as described above Statin intolerance Hypertension Dyslipidemia Obesity Plan Continue the current medical regimen Patient is cleared from cardiology for discharge and may follow-up in the office with Dr. Herring in 1 week. Nurse practitioner note has been reviewed, I agree with documented findings and plan of care. Patient was seen and examined. Objective - Vital Signs Vital signs: Vital Signs Temp 98.4 F 04/16/24 07:39 Pulse 76 04/16/24 08:51 Resp 14 04/16/24 07:39 BP 114/69 04/16/24 07:39 Pulse Ox 94 L 04/16/24 07:39 FiO2 50 04/13/24 10:00 Intake & Output 04/15/24 04/16/24 04/16/24 18:59 06:59 18:59 Intake Total 400 240 Output Total 1200 500 Balance -800 -500 240 Weight 91.4 kg Intake: Oral 400 240 Output: Urine 1200 500 Other: Voiding Method Bedside Commode Bedside Commode # Voids 1 # Bowel Movements 1 0 ABP, PAP, CO, CI - Last Documented Arterial Blood Pressure 122/46 Pulmonary Artery Pressure 28/12 Cardiac Output 3.9 Cardiac Index 2.1 - Labs CBC & Chem 7: 04/16/24 07:55 04/16/24 07:55 Labs: Abnormal Lab Results - Last 24 Hours (Table) 04/15/24 04/15/24 04/15/24 Range/Units 11: 16:36 20:03 WBC (3.8-10.6) k/uL RBC (3.80-5.40) m/uL Hgb (11.4-16.0) gm/dL Hct (34.0-46.0) % Creatinine (0.52-1.04) mg/dL Glucose (74-99) mg/dL POC Glucose (mg/dL) 193 H 224 H 194 H (70-110) mg/dL 04/16/24 04/16/24 04/16/24 Range/Units 06:05 07:55 07:55 WBC 11.4 H (3.8-10.6) k/uL RBC 2.92 L (3.80-5.40) m/uL Hgb 9.0 L (11.4-16.0) gm/dL Hct 27.9 L (34.0-46.0) % Creatinine 1.19 H (0.52-1.04) mg/dL Glucose 203 H (74-99) mg/dL POC Glucose (mg/dL) 181 H (70-110) mg/dL 04/16/24 Range/Units 11:20 WBC (3.8-10.6) k/uL RBC (3.80-5.40) m/uL Hgb (11.4-16.0) gm/dL Hct (34.0-46.0) % Creatinine (0.52-1.04) mg/dL Glucose (74-99) mg/dL POC Glucose (mg/dL) 205 H (70-110) mg/dL
--- NOTE | 2024-04-19 21:32 | CDI ---
Documentation Clarification Form Date: 04/19/2024 09:20:09 PM From: Yeny Painter Phone: Admit Date: 04/03/2024 09:34:00 PM Patient Name: Shalonda Smalls Visit Number: [id number] Discharge Date: 04/16/2024 04:03:00 PM ATTENTION: The Clinical Documentation Specialists (CDI) and [facility] Coding Staff appreciate your assistance in clarifying documentation. Please respond to the clarification below the line at the bottom and electronically sign. The CDI & [facility] Coding staff will review the response and follow-up if needed. Please note: Queries are made part of the Legal Health Record. If you have any questions, please contact the author of this message via ITS. Dr. Terry Powers Respiratory Failure is per Progress Note 04/15. Additional clarification regarding the respiratory failure is requested. Patient history/risk factors: 68yo F, CAD, NSTEMI, HTN, HLD, IDDMII w hyperglycemia, LLE DVT, Asthma/COPD, ANDREW, CKDII, Leftfoot dropafter back surgery, chronic painwith chronicnarcotic dependence Clinical Indicators: Pulse Ox 94; currently on 2 L nasal cannula with oxygen saturation 96%. Treatment: on 2 L oxygen, continue deep breathing exercises incentive spirometry, titrate oxygen down as tolerated After work up and study, please clarify which diagnosis is most appropriate? [ x] Acute Respiratory Failure [ x] Hypoxic [ ] Hypercapnic [ ] Acute on Chronic Respiratory Failure [ ] Hypoxic [ ] Hypercapnic [ ] Chronic Respiratory Failure [ ] Hypoxic [ ] Hypercapnic [ ] Respiratory Failure due to Post Op status [ ] Unable to determine [ ] Other, please specify (Template Last Revised: June 2023) MTDD
== END 2024-04-16 16:03 | disposition home health service (06) | DRG 233 ==
LOC: EC 17:44 → 3SCARD 21:33 → OBSVTOIN 21:34 → 3SCARD 04-04 05:39 → 2SICU 04-12 06:03 → 3SCARD 04-15 17:37
PROVIDERS: ADMIT Thoracic Surgery (Cardiothoracic Vascular Surgery); ATTEND Thoracic Surgery (Cardiothoracic Vascular Surgery)
PROC: 4A023N7 Measurement of Cardiac Sampling and Pressure, Left Heart, Percutaneous Approach (ICD-10-PCS; 2024-04-09)
PROC: B2111ZZ Fluoroscopy of Multiple Coronary Arteries using Low Osmolar Contrast (ICD-10-PCS; 2024-04-09)
PROC: 03BC4ZZ Excision of Left Radial Artery, Percutaneous Endoscopic Approach (ICD-10-PCS; 2024-04-12)
PROC: 02L70CK Occlusion of Left Atrial Appendage with Extraluminal Device, Open Approach (ICD-10-PCS; 2024-04-12)
PROC: 5A09357 Assistance with Respiratory Ventilation, Less than 24 Consecutive Hours, Continuous Positive Airway Pressure (ICD-10-PCS; 2024-04-12)
PROC: B24BZZ4 Ultrasonography of Heart with Aorta, Transesophageal (ICD-10-PCS; 2024-04-12)
PROC: 02100A3 Bypass Coronary Artery, One Artery from Coronary Artery with Autologous Arterial Tissue, Open Approach (ICD-10-PCS; principal; 2024-04-12 08:00)
PROC: 02100Z9 Bypass Coronary Artery, One Artery from Left Internal Mammary, Open Approach (ICD-10-PCS; 2024-04-12 08:00)
DX: I21.4 Non-ST elevation (NSTEMI) myocardial infarction (principal); A41.9 Sepsis, unspecified organism; J18.9 Pneumonia, unspecified organism; I50.33 Acute on chronic diastolic (congestive) heart failure; J96.01 Acute respiratory failure with hypoxia; I82.402 Acute embolism and thrombosis of unspecified deep veins of left lower extremity; J44.0 Chronic obstructive pulmonary disease with (acute) lower respiratory infection; J44.1 Chronic obstructive pulmonary disease with (acute) exacerbation; I13.0 Hypertensive heart and chronic kidney disease with heart failure and stage 1 through stage 4 chronic kidney disease, or unspecified chronic kidney disease; D62 Acute posthemorrhagic anemia; Z68.39 Body mass index [BMI] 39.0-39.9, adult; E66.01 Morbid (severe) obesity due to excess calories; I48.0 Paroxysmal atrial fibrillation; E11.65 Type 2 diabetes mellitus with hyperglycemia; E11.22 Type 2 diabetes mellitus with diabetic chronic kidney disease; Z79.4 Long term (current) use of insulin; D69.59 Other secondary thrombocytopenia; J45.30 Mild persistent asthma, uncomplicated; I08.1 Rheumatic disorders of both mitral and tricuspid valves; J32.9 Chronic sinusitis, unspecified; M21.372 Foot drop, left foot; F41.9 Anxiety disorder, unspecified; G47.33 Obstructive sleep apnea (adult) (pediatric); I25.10 Atherosclerotic heart disease of native coronary artery without angina pectoris; E78.5 Hyperlipidemia, unspecified; N18.2 Chronic kidney disease, stage 2 (mild); K04.7 Periapical abscess without sinus; K58.9 Irritable bowel syndrome, unspecified; T38.0X5A Adverse effect of glucocorticoids and synthetic analogues, initial encounter; G89.4 Chronic pain syndrome; R47.82 Fluency disorder in conditions classified elsewhere; Z96.651 Presence of right artificial knee joint; Z79.82 Long term (current) use of aspirin; Z79.899 Other long term (current) drug therapy; Z87.11 Personal history of peptic ulcer disease; I25.2 Old myocardial infarction; Z86.16 Personal history of COVID-19; Z88.8 Allergy status to other drugs, medicaments and biological substances; Z87.892 Personal history of anaphylaxis; Z86.73 Personal history of transient ischemic attack (TIA), and cerebral infarction without residual deficits; Z86.718 Personal history of other venous thrombosis and embolism; Z79.84 Long term (current) use of oral hypoglycemic drugs; Z79.51 Long term (current) use of inhaled steroids; Z79.891 Long term (current) use of opiate analgesic
CPT/HCPCS: 36410; 36415; 70450; 71045; 71046; 71275; 74174; 76937; 80048; 80053; 80061; 80074; 82330; 82805; 83036; 83735; 84443; 84484; 85025; 85027; 85379; 85610; 85730; 86850; 86891; 86900; 86901; 86920; 87070; 87086; 93005; 93306; 93458; 93880; 93922; 93970; 94002; 94150; 94640; 94660; 94760; 96366; 96367; 96374; 96375; 96376; 99291

== ENCOUNTER 2024-04-21 13:34 | Observation (INO) | payer MEDICARE, OTHER ==
--- NOTE | 2024-04-21 13:46 | ED ---
General Adult HPI - General Stated complaint: Chest Pain Time Seen by Provider: 04/21/24 13:35 - History of Present Illness Initial comments: Dictation was produced using [employer] dictation software. please excuse any grammatical, word or spelling errors. Chief Complaint: 68-year-old female presents with leakage from surgical site History of Present Illness: Patient is a 68-year-old female proximately 10 days ago she had a CABG performed by Dr. Mojica here at our facility. She was inpatient for approximately 5 days she was discharged 5 days ago. She had a home visiting nurse come check on her today. According to patient she has been having drainage from one of her drain sites. States the drain was pulled prior to discharge. She has been having serosanguineous drainage. Patient complains of some chest achiness that she states that has been present since the surgery. States that it hurts more whenever she takes deep breath. The ROS documented in this emergency department record has been reviewed and confirmed by me. Those systems with pertinent positive or negative responses have been documented in the HPI. All other systems are other negative and/or noncontributory. - Related Data Home Medications Medication Instructions Recorded Confirmed Montelukast [Singulair] 10 mg PO HS 10/17/20 04/21/24 Aspirin [Adult Low Dose Aspirin EC] 81 mg PO DAILY 04/21/22 04/21/24 HYDROcodone/APAP 5-325MG [[place] 1 tab PO TID 05/21/23 04/21/24 5-325] Azelastine HCl [Astelin Nasal 2 sprays NASAL BID 09/26/23 04/21/24 [place]] Pantoprazole [Protonix] 40 mg PO BID 09/26/23 04/21/24 Dicyclomine [Bentyl] 10 mg PO TID 04/03/24 04/21/24 Gabapentin 300 mg PO TID 04/03/24 04/21/24 INSULIN LISPRO (humaLOG) [humaLOG] See Protocol SQ AC-TID 04/03/24 04/21/24 Insulin Glargine,Hum.rec.anlog 30 units SQ HS 04/03/24 04/21/24 [Lantus Solostar Pen] Amiodarone [Cordarone] 200 mg PO BID 04/21/24 04/21/24 Sennosides-Docusate Sodium 2 tab PO HS PRN 04/21/24 04/21/24 [Senokot-S] Previous Rx's Medication Instructions Recorded Bumetanide [BUMEX] 1 mg PO DAILY 90 Days #90 tab 05/26/23 Budesonide [Pulmicort] 0.5 mg INHALATION RT-BID 30 Days 04/08/24 #60 ml Dapagliflozin Propanediol [Farxiga] 10 mg PO DAILY 30 Days #30 tab 04/08/24 Ipratropium-Albuterol Nebulize 3 ml INHALATION RT-QID 30 Days 04/08/24 [Duoneb 0.5 mg-3 mg/3 ml Soln] #120 each Loratadine [Claritin] 10 mg PO DAILY tab 04/08/24 Acetaminophen Tab [Tylenol] 650 mg PO Q4HR PRN tab 04/16/24 Clopidogrel [Plavix] 75 mg PO DAILY #30 tab 04/16/24 Ezetimibe [Zetia] 10 mg PO DAILY #30 tab 04/16/24 Metoprolol Tartrate [Lopressor] 25 mg PO BID #60 tab 04/16/24 amLODIPine [Norvasc] 2.5 mg PO DAILY@1200 #30 tab 04/16/24 Allergies Allergy/AdvReac Type Severity Reaction Status Date / Time Iodinated Contrast Media Allergy Severe Anaphylaxis Verified 04/21/24 14:17 [Iodinated Contrast Media - IV Dye] shellfish derived [Shellfish] Allergy Severe Anaphylaxis Verified 04/21/24 14:17 iodine Allergy Anaphylaxis Verified 04/21/24 14:17 Pcpnmmn-KXQ-NyO Reductase Allergy Anaphylaxis Verified 04/21/24 14:17 Inhibitor [Nmverkw-Heb-Bii Reductase Inhibitor] Review of Systems ROS Statement: Those systems with pertinent positive or pertinent negative responses have been documented in the HPI. ROS Other: All systems not noted in ROS Statement are negative. Past Medical History Past Medical History: Asthma, Coronary Artery Disease (CAD), Chest Pain / Angina, COPD, Diabetes Mellitus, Deep Vein Thrombosis (DVT), GERD/Reflux, Hyperlipidemia, Hypertension, Myocardial Infarction (SC), Musculoskeletal Disorder, Osteoarthritis (OA), Renal Disease, Sleep Apnea/CPAP/BIPAP Additional Past Medical History / Comment(s): PUD, colitis, benign colon polyps, DVT L leg, migraines, ANDREW - uses cpap. kidney stones, CKD stage II, vertigo, recurrent L ear infections/ruptured eardrum, TMJ, mild CAD, back prob - NT Lt arm, leg. Edema BLE. covid + 01/19/2021; left foot drop Last Myocardial Infarction Date:: 2009 History of Any Multi-Drug Resistant Organisms: None Reported Past Surgical History: Appendectomy, Cholecystectomy, Ear Surgery, Heart Catheterization, Hysterectomy, Joint Replacement, Orthopedic Surgery, Tonsillectomy Additional Past Surgical History / Comment(s): R/L knee arthroscopies, L ear patch/graft, EGD, colonoscopy/polypectomy, throat abscess. Right knee replacement, back surgery, Past Anesthesia/Blood Transfusion Reactions: Postoperative Nausea & Vomiting (PONV) Past Psychological History: Anxiety Additional Psychological History / Comment(s): Spouse has cancer Smoking Status: Never smoker Past Alcohol Use History: None Reported Past Drug Use History: None Reported - Past Family History Sister(s) History Unknown: Yes Family Medical History: Cancer Father History Unknown: Yes Family Medical History: Cancer Additional Family Medical History / Comment(s): Throat and brain cancer. Father was an alcoholic. Mother History Unknown: Yes Family Medical History: Liver Disease Additional Family Medical History / Comment(s): Mother is . She was an alcoholic. General Exam - General Exam Comments Initial Comments: PHYSICAL EXAM: General Impression: Alert and oriented x3, not in acute distress HEENT: Normocephalic atraumatic, extra-ocular movements intact, pupils equal and reactive to light bilaterally, mucous membranes moist. Cardiovascular: Heart regular rate and rhythm Chest: Able to complete full sentences, no retractions, no tachypnea Abdomen: abdomen soft, non-tender, non-distended, no organomegaly Musculoskeletal: Pulses present and equal in all extremities, no peripheral edema Motor: no focal deficits noted Neurological: CN II-XII grossly intact, no focal motor or sensory deficits noted Skin: Intact with no visualized rashes, dressing at the left drain site dressing is saturated with serosanguineous fluid Psych: Normal affect and mood Course Vital Signs 04/21/24 04/21/24 13:36 15:11 Temperature 98.5 F 98.1 F Pulse Rate 74 76 Respiratory 14 18 Rate Blood Pressure 129/91 145/66 O2 Sat by Pulse 95 96 Oximetry - Reevaluation(s) Reevaluation #1: 04/21/24 13:51 Case was discussed with Dr. Gold at 1:49 PM. He is with cardiothoracic surgery covering for Dr. Mojica states that likely the pre-existing site for the pleural drain that is leaking serosanguineous fluid states that acceptable that the wound is draining and that she should follow-up with cardiothoracic surgery on Tuesday. Medical Decision Making - Medical Decision Making Was pt. sent in by a medical professional or institution (, PA, CONSUMER BANKER, urgent care, hospital, or intermediate...) When possible be specific @ -No Did you speak to anyone other than the patient for history (EMS, parent, family, police, friend...)? What history was obtained from this source @ -No Did you review nursing and triage notes (agree or disagree)? Why? @ -I reviewed and agree with nursing and triage notes Were old charts reviewed (outside hosp., previous admission, EMS record, old EKG, old radiological studies, urgent care reports/EKG's, intermediate records)? Report findings @ -No old charts were reviewed Differential Diagnosis (chest pain, altered mental status, abdominal pain women, abdominal pain men, vaginal bleeding, musculoskeletal, weakness, fever, dyspnea, syncope, headache, dizziness, GI bleed, back pain, seizure, CVA, palpatations, mental health)? @ -Differential Chest Pain: Stable Angina, Unstable Angina, STEMI, NSTEMI Aortic Dissection, Pneumothorax, Musculoskeletal, Esophageal Spasm GERD, Cholecystitis, Pancreatitis, Zoster, this is not meant to be an all-inclusive list. EKG interpreted by me (3pts min.). @ -My EKG interpretation: Ventricular rate 71, sinus rhythm,. 06/13/1946, QRS 120, QTc 445. No MD prolongation, no QTC prolongation, no ST or T-wave changes noted. Overall, this EKG is unremarkable X-rays interpreted by me (1pt min.). @ -Chest x-ray shows pleural effusion CT interpreted by me (1pt min.). @ -None done U/S interpreted by me (1pt. min.). @ -None done What testing was considered but not performed or refused? (CT, X-rays, U/S, labs)? Why? @ -None What meds were considered but not given or refused? Why? @ -None Was smoking cessation discussed for >3mins.? @ -No Were there social determinants of health that impacted care today? How? (Homel essness, low income, unemployed, alcoholism, drug addiction, transportation, low edu. Level, literacy, decrease access to med. care, usp, rehab)? @ -No Was there de-escalation of care discussed even if they declined (Discuss DNR or withdrawal of care, Hospice)? DNR status @ -No What co-morbidities impacted this encounter? (DM, HTN, Smoking, COPD, CAD, Cancer, CVA, ARF, Chemo, Hep., AIDS, mental health diagnosis, sleep apnea, morbid obesity)? @ -None Was patient admitted / discharged? Hospital course, mention meds given and route, prescriptions, significant lab abnormalities, going to OR and other pertinent info. @ -60-year-old female presents to the emergency department with chest pain she recently had CABG procedure. She also states that she is having drainage coming from her surgical site. Vital signs stable. Patient well-appearing at the bedside. Chest pain is likely postoperative however she does report some new onset radiation to the left arm. Patient is concerned that this is something else. EKG is unremarkable. X-ray shows effusion likely postoperative in nature. Laboratory evaluation obtained. Troponin elevated at 0.308. Likely postoperative however given patient's nature of her symptoms she will be admitted observation with serial troponins, cardiac monitoring and consultation to cardiology and cardiothoracic surgery. Did you discuss the management of the patient with other professionals (professionals i.e. , PA, CONSUMER BANKER, lab, RT, psych nurse, delinquency prevention social worker, web software engineer, teacher, chief talent officer, embedded case manager)? Give summary @ -Case discussed with hospitalist for admission Was critical care preformed (if so, how long)? @ -No Undiagnosed new problem with uncertain prognosis? @ -No Drug Therapy requiring intensive monitoring for toxicity (Heparin, Nitro, Insulin, Cardizem)? @ -No Were any procedures done? @ -No Diagnosis/symptom? Acute, or Chronic, or Acute on Chronic? Uncomplicated (without systemic symptoms) or Complicated (systemic symptoms)? @ -chest pain Side effects of treatment? @ -No Exacerbation, Progression, or Severe Exacerbation? @ -No Poses a threat to life or bodily function? How? (Chest pain, USA, SC, pneumonia, PE, COPD, DKA, ARF, appy, cholecystitis, CVA, Diverticulitis, Homicidal, Suicidal, threat to staff... and all critical care pts) @ -yes - Lab Data Result diagrams: 04/21/24 14:57 04/21/24 14:57 Lab Results 04/21/24 04/21/24 04/21/24 Range/Units 14:57 14:57 14:57 WBC 8.2 (3.8-10.6) k/uL RBC 2.89 L (3.80-5.40) m/uL Hgb 8.5 L (11.4-16.0) gm/dL Hct 27.6 L (34.0-46.0) % MCV 95.5 (80.0-100.0) fL MCH 29.6 (25.0-35.0) pg MCHC 31.0 (31.0-37.0) g/dL RDW 15.9 H (11.5-15.5) % Plt Count 242 (150-450) k/uL MPV 9.8 Neutrophils % 68 % Lymphocytes % 20 % Monocytes % 5 % Eosinophils % 7 % Basophils % 0 % Neutrophils # 5.6 (1.3-7.7) k/uL Lymphocytes # 1.6 (1.0-4.8) k/uL Monocytes # 0.4 (0-1.0) k/uL Eosinophils # 0.5 (0-0.7) k/uL Basophils # 0.0 (0-0.2) k/uL Hypochromasia Slight Sodium 142 (137-145) mmol/L Potassium 3.8 (3.5-5.1) mmol/L Chloride 108 H (98-107) mmol/L Carbon Dioxide 26 (22-30) mmol/L Anion Gap 8 mmol/L BUN 17 (7-17) mg/dL Creatinine 1.09 H (0.52-1.04) mg/dL Est GFR (CKD-EPI)AfAm 61 (>60 ml/min/1.73 sqM) Est GFR (CKD-EPI)NonAf 53 (>60 ml/min/1.73 sqM) Glucose 200 H (74-99) mg/dL Calcium 8.9 (8.4-10.2) mg/dL Troponin I 0.308 H* (0.000-0.034) ng/mL Disposition Clinical Impression: Chest pain Disposition: ADMITTED IP TO THIS HOSP Condition: Fair Referrals: Tavo Lisa MD [Primary Care Provider] - 1-2 days Decision Time: 15:51
--- NOTE | 2024-04-21 14:35 | XR ---
EXAMINATION TYPE: XR chest 2V DATE OF EXAM: 04/21/2024 2:29 PM COMPARISON: Multiple prior chest radiographs the most recent dated 04/26/2024. CLINICAL INDICATION: Female, 68 years old with history of surgical wound drainage; [facility] TECHNIQUE: XR chest 2V Frontal and lateral views of the chest. FINDINGS: Cardiomegaly. Median sternotomy wires are noted. Device overlying the cardiac silhouette. Small left pleural effusion, slightly increasing from prior study 04/16/2024. The sizable right-sided pleural effusion. No partial pneumothorax. No acute osseous abnormality. IMPRESSION: Slightly increasing small left pleural effusion with adjacent compressive atelectasis compared to the recent study 04/16/2024. [facility], , 04/21/2024 2:32 PM
[2024-04-21 15:18] LABS: African American GFR (CKD) 61 (>60 ml/min/1.73 sqM); Anion Gap 8 mmol/L; Blood Urea Nitrogen 17 mg/dL (7-17); Calcium 8.9 mg/dL (8.4-10.2); Carbon Dioxide 26 mmol/L (22-30); Chloride 108 mmol/L (98-107); Glucose 200 mg/dL (74-99); Non-African American GFR(CKD) 53 (>60 ml/min/1.73 sqM); Potassium 3.8 mmol/L (3.5-5.1); Sodium 142 mmol/L (137-145)
[2024-04-21 15:22] LABS: Basophils % (A) 0 %; Eosinophils # (A) 0.5 k/uL (0-0.7); Eosinophils % (A) 7 %; HCT 27.6 % (34.0-46.0); HGB 8.5 gm/dL (11.4-16.0); Hypochromasia Slight; Lymphocytes # (A) 1.6 k/uL (1.0-4.8); Lymphocytes % (A) 20 %; MCH 29.6 pg (25.0-35.0); MCV 95.5 fL (80.0-100.0); Mean Platelet Volume 9.8; Monocytes # (A) 0.4 k/uL (0-1.0); Monocytes % (A) 5 %; Neutrophils # (A) 5.6 k/uL (1.3-7.7); Neutrophils % (A) 68 %; Platelet Count 242 k/uL (150-450); RBC 2.89 m/uL (3.80-5.40); RDW 15.9 % (11.5-15.5); WBC 8.2 k/uL (3.8-10.6)
[2024-04-21] MEDS ORDERED: NITROGLYCERIN SL TABS 0.4 MG TAB SUBLINGUAL PRN (15:47)
[2024-04-21] MEDS: ASPIRIN 81 MG PO STA (16:24)
[2024-04-21] MEDS: HYDROcodone/APAP 5-325MG 1 EACH TAB PO STA (16:45)
[2024-04-21] MEDS ORDERED: ACETAMINOPHEN TAB 325 MG TAB PO PRN (21:14)
[2024-04-21] MEDS: MORPHINE SULFATE 4 MG/ML SYRINGE IVP STA (21:46)
[2024-04-21] MEDS: GABAPENTIN 300 MG CAP PO SCH (21:46)
[2024-04-21] MEDS: DICYCLOMINE 10 MG CAP PO SCH (22:45)
[2024-04-22] MEDS: MORPHINE SULFATE 4 MG/ML SYRINGE IVP PRN (02:57)
[2024-04-22 03:12] VITALS: TEMP 98.3
[2024-04-22] MEDS: BUDESONIDE 0.5 MG/2 ML NEBU INHALATION SCH (08:44)
[2024-04-22] MEDS ORDERED: ASPIRIN 325 MG TAB PO SCH (09:00)
[2024-04-22 09:19] VITALS: RESP 20
[2024-04-22] MEDS: DAPAGLIFLOZIN PROPANEDIOL 10 MG TABLET PO SCH (09:19)
[2024-04-22] MEDS: ASPIRIN 81 MG PO SCH (09:19)
[2024-04-22] MEDS: CLOPIDOGREL 75 MG TAB PO SCH (09:19)
[2024-04-22] MEDS: BUMETANIDE 1 MG TAB PO SCH (09:19)
[2024-04-22] MEDS: PANTOPRAZOLE 40 MG TABLET PO SCH (09:19)
[2024-04-22] MEDS: METOPROLOL TARTRATE 25 MG TAB PO SCH (09:19)
[2024-04-22] MEDS: EZETIMIBE 10 MG TAB PO SCH (09:19)
[2024-04-22] MEDS: LORATADINE 10 MG TAB PO SCH (09:20)
[2024-04-22] MEDS: AMIODARONE 200 MG TAB PO SCH (09:20)
[2024-04-22] MEDS: HYDROcodone/APAP 5-325MG 1 EACH TAB PO SCH (09:20)
--- NOTE | 2024-04-22 09:54 | P.CRDCN ---
History of Present Illness Consult date: 04/22/24 History of present illness: HISTORY OF PRESENTING ILLNESS Patient is a 86-year-old female who recently underwent CABG with Dr. Mojica at our facility. She was discharged home 5 days ago. She comes back to the hospital because of increased drainage from one of the sites where her SHAMA drain was attached. She is also complaining of some surgical chest pain. She denies any exertional symptoms. She denies any shortness of breath lightheadedness or dizziness. She denies any palpitation. BP slightly elevated which could be related to her pain. BP 149/79, heart rate 78, ECG shows sinus rhythm with no significant ST-T wave changes concerning for ischemia. Hemoglobin is 8.5, creatinine is 1.09, troponin 0.3 with a flat pattern. REVIEW OF SYSTEMS 14 point review of system is negative except what is mentioned above in HPI. PHYSICAL EXAMINATION Vital signs reviewed. Head: Normocephalic. Eyes: Sclerae nonicteric. Neck: Brisk carotid upstroke, no jugular venous distention. Lungs: Clear to auscultation. Heart: Regular rate and rhythm, S1-S2, no S3, no murmur or rub. Surgical scar is healing well, no signs of dehiscence, increased drainage noticed from one of the puncture sites, serosanguinus discharge Abdomen: Soft nontender, positive bowel sounds. Extremities: No edema, intact distal pulses. Neuro: Alert, oritented, no focal deficits. Detailed neuro exam was not performed. ASSESSMENT Excessive drainage from SHAMA drain site CAD status post CABG Allergy to statins NSTEMI type IV PLAN Lidocaine patch for the chest Iron supplementation for anemia Reduce amiodarone to 200 mg daily Aspirin, Plavix, Zetia Metoprolol 25 g twice daily, Zetia 10 mg daily, Farxiga 10 mg daily, Bumex 1 mg p.o. daily Appreciate surgical recommendations. If she is cleared from surgical standpoint, she is also cleared from cardiac standpoint to be discharged and recommended outpatient follow-up with primary energy technician. Mike Rios MD, FACC, RPVI Thank you for allowing [facility] to participate in this patient's care. Feel free to reach out in case of any followup questions. Past Medical History Past Medical History: Asthma, Coronary Artery Disease (CAD), Chest Pain / Angina, COPD, Diabetes Mellitus, Deep Vein Thrombosis (DVT), GERD/Reflux, Hyperlipidemia, Hypertension, Myocardial Infarction ([place]), Musculoskeletal Disorder, Osteoarthritis (OA), Renal Disease, Sleep Apnea/CPAP/BIPAP Additional Past Medical History / Comment(s): PUD, colitis, benign colon polyps, DVT L leg, migraines, ANDREW - uses cpap. kidney stones, CKD stage II, vertigo, recurrent L ear infections/ruptured eardrum, TMJ, mild CAD, back prob - NT Lt arm, leg. Edema BLE. covid + 01/19/2021; left foot drop Last Myocardial Infarction Date:: 2009 History of Any Multi-Drug Resistant Organisms: None Reported Past Surgical History: Appendectomy, Cholecystectomy, Ear Surgery, Heart Catheterization, Hysterectomy, Joint Replacement, Orthopedic Surgery, Tonsillectomy Additional Past Surgical History / Comment(s): R/L knee arthroscopies, L ear patch/graft, EGD, colonoscopy/polypectomy, throat abscess. Right knee replacement, back surgery, Past Anesthesia/Blood Transfusion Reactions: Postoperative Nausea & Vomiting (PONV) Past Psychological History: Anxiety Additional Psychological History / Comment(s): Spouse has cancer Smoking Status: Never smoker Past Alcohol Use History: None Reported Past Drug Use History: None Reported - Past Family History Sister(s) History Unknown: Yes Family Medical History: Cancer Father History Unknown: Yes Family Medical History: Cancer Additional Family Medical History / Comment(s): Throat and brain cancer. Father was an alcoholic. Mother History Unknown: Yes Family Medical History: Liver Disease Additional Family Medical History / Comment(s): Mother is . She was an alcoholic. Medications and Allergies Home Medications Medication Instructions Recorded Confirmed Type Montelukast [Singulair] 10 mg PO HS 10/17/20 04/21/24 History Aspirin [Adult Low Dose Aspirin EC] 81 mg PO DAILY 04/21/22 04/21/24 History HYDROcodone/APAP 5-325MG [[place] 1 tab PO TID 05/21/23 04/21/24 History 5-325] Bumetanide [BUMEX] 1 mg PO DAILY 90 Days #90 tab 05/26/23 04/21/24 Rx Azelastine HCl [Astelin Nasal 2 sprays NASAL BID 09/26/23 04/21/24 History [place]] Pantoprazole [Protonix] 40 mg PO BID 09/26/23 04/21/24 History Dicyclomine [Bentyl] 10 mg PO TID 04/03/24 04/21/24 History Gabapentin 300 mg PO TID 04/03/24 04/21/24 History INSULIN LISPRO (humaLOG) [humaLOG] See Protocol SQ AC-TID 04/03/24 04/21/24 History Insulin Glargine,Hum.rec.anlog 30 units SQ HS 04/03/24 04/21/24 History [Lantus Solostar Pen] Budesonide [Pulmicort] 0.5 mg INHALATION RT-BID 30 Days 04/08/24 04/21/24 Rx #60 ml Dapagliflozin Propanediol [Farxiga] 10 mg PO DAILY 30 Days #30 tab 04/08/24 04/21/24 Rx Ipratropium-Albuterol Nebulize 3 ml INHALATION RT-QID 30 Days 04/08/24 04/21/24 Rx [Duoneb 0.5 mg-3 mg/3 ml Soln] #120 each Loratadine [Claritin] 10 mg PO DAILY tab 04/08/24 04/21/24 Rx Acetaminophen Tab [Tylenol] 650 mg PO Q4HR PRN tab 04/16/24 04/21/24 Rx Clopidogrel [Plavix] 75 mg PO DAILY #30 tab 04/16/24 04/21/24 Rx Ezetimibe [Zetia] 10 mg PO DAILY #30 tab 04/16/24 04/21/24 Rx Metoprolol Tartrate [Lopressor] 25 mg PO BID #60 tab 04/16/24 04/21/24 Rx amLODIPine [Norvasc] 2.5 mg PO DAILY@1200 #30 tab 04/16/24 04/21/24 Rx Amiodarone [Cordarone] 200 mg PO BID 04/21/24 04/21/24 History Sennosides-Docusate Sodium 2 tab PO HS PRN 04/21/24 04/21/24 History [Senokot-S] Allergies Allergy/AdvReac Type Severity Reaction Status Date / Time Iodinated Contrast Media Allergy Severe Anaphylaxis Verified 04/21/24 14:17 [Iodinated Contrast Media - IV Dye] shellfish derived [Shellfish] Allergy Severe Anaphylaxis Verified 04/21/24 14:17 iodine Allergy Anaphylaxis Verified 04/21/24 14:17 Tgafjfb-WLR-OeT Reductase Allergy Anaphylaxis Verified 04/21/24 14:17 Inhibitor [Txwsnfb-Iju-Mad Reductase Inhibitor] Physical Exam Vitals: Vital Signs Temp Pulse Resp BP Pulse Ox 04/22/24 09:18 78 20 149/79 95 04/22/24 08:51 85 04/22/24 08:47 96 04/22/24 08:44 81 04/22/24 05:24 76 18 136/70 96 04/22/24 03:09 98.3 F 81 16 134/62 96 04/21/24 22:15 79 16 140/63 95 04/21/24 18:37 97.9 F 77 16 121/83 97 04/21/24 16:20 97.8 F 74 16 153/61 93 L 04/21/24 15:11 98.1 F 76 18 145/66 96 04/21/24 13:36 98.5 F 74 14 129/91 95 Results 04/21/24 14:57 04/21/24 14:57 Cardiac Enzymes 04/21/24 04/21/24 04/21/24 Range/Units 14:57 18:38 20:31 Troponin I 0.308 H* 0.298 H* 0.298 H* (0.000-0.034) ng/mL CBC 04/21/24 Range/Units 14:57 WBC 8.2 (3.8-10.6) k/uL RBC 2.89 L (3.80-5.40) m/uL Hgb 8.5 L (11.4-16.0) gm/dL Hct 27.6 L (34.0-46.0) % Plt Count 242 (150-450) k/uL Comprehensive Metabolic Panel 04/21/24 Range/Units 14:57 Sodium 142 (137-145) mmol/L Potassium 3.8 (3.5-5.1) mmol/L Chloride 108 H (98-107) mmol/L Carbon Dioxide 26 (22-30) mmol/L BUN 17 (7-17) mg/dL Creatinine 1.09 H (0.52-1.04) mg/dL Glucose 200 H (74-99) mg/dL Calcium 8.9 (8.4-10.2) mg/dL Current Medications Generic Name Dose Route Start Last Admin Trade Name Freq PRN Reason Stop Dose Admin Acetaminophen 650 mg 04/21/24 21:14 Acetaminophen Tab 325 Mg Tab PO Q4HR PRN Fever And/ Or Mild Pain (1-3) Hydrocodone Bitart/Acetaminophen 1 each 04/22/24 09:00 04/22/24 09:20 Hydrocodone/Apap 5-325mg 1 Each Tab PO 1 each TID AMPARO Administration Amiodarone HCl 200 mg 04/23/24 09:00 Amiodarone 200 Mg Tab PO DAILY [facility] Amlodipine Besylate 5 mg 04/22/24 12:00 Amlodipine 5 Mg Tab PO DAILY@1200 [facility] Aspirin 81 mg 04/22/24 09:00 04/22/24 09:19 Aspirin 81 Mg PO 81 mg DAILY [facility] Administration Budesonide 0.5 mg 04/22/24 08:00 04/22/24 08:44 Budesonide 0.5 Mg/2 Ml Nebu INHALATION 0.5 mg RT-BID [facility] Administration Bumetanide 1 mg 04/22/24 09:00 04/22/24 09:19 Bumetanide 1 Mg Tab PO 1 mg DAILY [facility] Administration Clopidogrel Bisulfate 75 mg 04/22/24 09:00 04/22/24 09:19 Clopidogrel 75 Mg Tab PO 75 mg DAILY [facility] Administration Dapagliflozin 10 mg 04/22/24 09:00 04/22/24 09:19 Dapagliflozin Propanediol 10 Mg Tablet PO 10 mg DAILY AMPARO Administration Dicyclomine HCl 10 mg 04/21/24 22:00 04/22/24 09:20 Dicyclomine 10 Mg Cap PO 10 mg TID AMPARO Administration Ezetimibe 10 mg 04/22/24 09:00 04/22/24 09:19 Ezetimibe 10 Mg Tab PO 10 mg DAILY [facility] Administration Gabapentin 300 mg 04/21/24 22:00 04/22/24 09:19 Gabapentin 300 Mg Cap PO 300 mg TID [facility] Administration Loratadine 10 mg 04/22/24 09:00 04/22/24 09:20 Loratadine 10 Mg Tab PO 10 mg DAILY [facility] Administration Metoprolol Tartrate 25 mg 04/22/24 09:00 04/22/24 09:19 Metoprolol Tartrate 25 Mg Tab PO 25 mg BID AMPARO Administration Montelukast Sodium 10 mg 04/22/24 21:00 Montelukast 10 Mg Tab PO HS [facility] Nitroglycerin 0.4 mg 04/21/24 15:47 Nitroglycerin Sl Tabs 0.4 Mg Tab SUBLINGUAL Q5M PRN Chest Pain Pantoprazole Sodium 40 mg 04/22/24 09:00 04/22/24 09:19 Pantoprazole 40 Mg Tablet PO 40 mg BID AMPARO Administration 04/21/24 14:57 04/21/24 14:57
[2024-04-22] MEDS: LIDOCAINE 4% PATCH TOPICAL SCH (10:23)
--- NOTE | 2024-04-22 11:33 | P.GSCN ---
History of Present Illness Consult date: 04/22/24 Reason for Consult: Known to the cardiothoracic surgery service, status post two-vessel off-pump coronary artery bypass grafting surgery on April 12, 2024, admitted with complaints surgical type chest pain, and drainage from her left pleural chest tube site Requesting physician: Ciro He History of present illness: This is a 68-year-old female patient who follows with Dr. Tavo Lisa for her internal medicine care service as an outpatient. She has a past medical history significant for coronary artery disease with left main disease, recent non- STEMI, subsequently underwent a two-vessel off-pump coronary artery bypass grafting surgery by Dr. Mojica on April 12, 2024, history of hypertension, history of hyperlipidemia, with history of anaphylactic reaction to statins, insulin-dependent diabetes mellitus uncontrolled as an outpatient as her hemoglobin A1c was recently 8.5%, history of lower extremity DVT, asthma, COPD on home oxygen 2 L nasal cannula, chronic kidney disease, chronic left foot drop after back surgery, and chronic pain with chronic narcotic dependency. Postoperatively the patient also had some paroxysmal atrial fibrillation which is a known common occurrence after cardiac surgery and was discharged home on beta-arlene and amiodarone. The patient underwent myocardial revascularization surgery on April 12, 2024 and was subsequently discharged home with home health care on April 16, 2024. She presented to the emergency department here at [facility] yesterday with complaints of drainage from her left pleural chest tube insertion site, and some surgical type pain to her sternum. She denies any fever, chills, nausea, vomiting, diarrhea, constip ation, shortness of breath, headache, lightheadedness, palpitations, presyncope or syncope. She has had home health care following her as an outpatient. She reports that she was having more surgical type pain with taking a deep breath. She reports her pain is well-controlled at this time. Initial laboratory results show a WBC count of 8.2, hemoglobin 8.5, hematocrit 27.6, platelets 242, sodium 142, potassium 3.8, chloride 108, BUN 17, creatinine 1.09, glucose 200, and serial troponins elevated as high as 0.308. The troponins are likely elevated due to her recent cardiac surgery. A chest x-ray was completed which shows a small left pleural effusion with adjacent compressive atelectasis. A twelve-lead EKG was completed which shows normal sinus rhythm with no significant STT wave changes concerning for ischemia. Due to the patient's recent myocardial vascularization surgery a consult was placed to Dr. Jer Gold from cardiothoracic surgery for further evaluation and treatment r ecommendations. Review of Systems A review of systems was completed and was negative except as mentioned in the HPI. Past Medical History Past Medical History: Asthma, Coronary Artery Disease (CAD), Chest Pain / Angina, COPD, Diabetes Mellitus, Deep Vein Thrombosis (DVT), GERD/Reflux, Hyperlipidemia, Hypertension, Myocardial Infarction ([place]), Musculoskeletal Disorder, Osteoarthritis (OA), Renal Disease, Sleep Apnea/CPAP/BIPAP Additional Past Medical History / Comment(s): PUD, colitis, benign colon polyps, DVT L leg, migraines, ANDREW - uses cpap. kidney stones, CKD stage II, vertigo, recurrent L ear infections/ruptured eardrum, TMJ, mild CAD, back prob - NT Lt arm, leg. Edema BLE. covid + 01/19/2021; left foot drop Last Myocardial Infarction Date:: 2009 History of Any Multi-Drug Resistant Organisms: None Reported Past Surgical History: Appendectomy, Cholecystectomy, Ear Surgery, Heart Catheterization, Hysterectomy, Joint Replacement, Orthopedic Surgery, Tonsillectomy Additional Past Surgical History / Comment(s): R/L knee arthroscopies, L ear patch/graft, EGD, colonoscopy/polypectomy, throat abscess. Right knee replacement, back surgery, Past Anesthesia/Blood Transfusion Reactions: Postoperative Nausea & Vomiting (PONV) Past Psychological History: Anxiety Additional Psychological History / Comment(s): Spouse has cancer Smoking Status: Never smoker Past Alcohol Use History: None Reported Past Drug Use History: None Reported - Past Family History Sister(s) History Unknown: Yes Family Medical History: Cancer Father History Unknown: Yes Family Medical History: Cancer Additional Family Medical History / Comment(s): Throat and brain cancer. Father was an alcoholic. Mother History Unknown: Yes Family Medical History: Liver Disease Additional Family Medical History / Comment(s): Mother is . She was an alcoholic. Medications and Allergies Home Medications Medication Instructions Recorded Confirmed Type Montelukast [Singulair] 10 mg PO HS 10/17/20 04/21/24 History Aspirin [Adult Low Dose Aspirin EC] 81 mg PO DAILY 04/21/22 04/21/24 History HYDROcodone/APAP 5-325MG [[place] 1 tab PO TID 05/21/23 04/21/24 History 5-325] Bumetanide [BUMEX] 1 mg PO DAILY 90 Days #90 tab 05/26/23 04/21/24 Rx Azelastine HCl [Astelin Nasal 2 sprays NASAL BID 09/26/23 04/21/24 History [place]] Pantoprazole [Protonix] 40 mg PO BID 09/26/23 04/21/24 History Dicyclomine [Bentyl] 10 mg PO TID 04/03/24 04/21/24 History Gabapentin 300 mg PO TID 04/03/24 04/21/24 History INSULIN LISPRO (humaLOG) [humaLOG] See Protocol SQ AC-TID 04/03/24 04/21/24 History Insulin Glargine,Hum.rec.anlog 30 units SQ HS 04/03/24 04/21/24 History [Lantus Solostar Pen] Budesonide [Pulmicort] 0.5 mg INHALATION RT-BID 30 Days 04/08/24 04/21/24 Rx #60 ml Dapagliflozin Propanediol [Farxiga] 10 mg PO DAILY 30 Days #30 tab 04/08/24 04/21/24 Rx Ipratropium-Albuterol Nebulize 3 ml INHALATION RT-QID 30 Days 04/08/24 04/21/24 Rx [Duoneb 0.5 mg-3 mg/3 ml Soln] #120 each Loratadine [Claritin] 10 mg PO DAILY tab 04/08/24 04/21/24 Rx Acetaminophen Tab [Tylenol] 650 mg PO Q4HR PRN tab 04/16/24 04/21/24 Rx Clopidogrel [Plavix] 75 mg PO DAILY #30 tab 04/16/24 04/21/24 Rx Ezetimibe [Zetia] 10 mg PO DAILY #30 tab 04/16/24 04/21/24 Rx Metoprolol Tartrate [Lopressor] 25 mg PO BID #60 tab 04/16/24 04/21/24 Rx amLODIPine [Norvasc] 2.5 mg PO DAILY@1200 #30 tab 04/16/24 04/21/24 Rx Amiodarone [Cordarone] 200 mg PO BID 04/21/24 04/21/24 History Sennosides-Docusate Sodium 2 tab PO HS PRN 04/21/24 04/21/24 History [Senokot-S] Allergies Allergy/AdvReac Type Severity Reaction Status Date / Time Iodinated Contrast Media Allergy Severe Anaphylaxis Verified 04/21/24 14:17 [Iodinated Contrast Media - IV Dye] shellfish derived [Shellfish] Allergy Severe Anaphylaxis Verified 04/21/24 14:17 iodine Allergy Anaphylaxis Verified 04/21/24 14:17 [id number]-GUT-KgV Reductase Allergy Anaphylaxis Verified 04/21/24 14:17 Inhibitor [Sjgqpuk-Gmd-Hir Reductase Inhibitor] Surgical - Exam Vital Signs Temp Pulse Resp BP Pulse Ox 98.5 F 74 14 129/91 95 04/21/24 13:36 04/21/24 13:36 04/21/24 13:36 04/21/24 13:36 04/21/24 13:36 - General Mild pain, chronic in nature well developed, well nourished, no distress, chronically ill, obese - Eyes PERRL, normal ocular movement, no pale, no icteric - ENT normal pinna, normal nares, normal mucosa, no hearing loss, no congestion, poor nursing home - Neck no masses, no bruits, trachea midline, no no venous distension - Respiratory Lung sounds essentially clear throughout, diminished to her bilateral bases. No wheezes, rhonchi or crackles. Respirations are symmetrical and nonlabored. Oxygen saturation is 96% on 2 L nasal cannula - Cardiovascular Regular rhythm and rate. S1 and S2 present, negative for S3, gallop or murmur. - Abdomen Abdomen is soft, nontender and nondistended. Active bowel sounds present all 4 abdominal quadrants. No guarding or rigidity. No organomegaly appreciated. - Genitourinary Deferred - Rectum Deferred - Integumentary Midline sternal incision is clean, dry and approximated. No drainage or redness is present. Scant serosanguineous drainage from her left chest tube insertion site. Left radial artery harvest sites clean, dry and intact. No redness or drainage present. no rash, no growths, no abnormal pigmentation - Neurologic No focal deficits. Chronic foot drop to her left foot - Musculoskeletal Moves all 4 extremities with equal strength bilateral. Chronic foot drop to her left foot. - Psychiatric oriented to time, oriented to person, oriented to place, speech is normal, memory intact Results - Labs 04/21/24 14:57 04/21/24 14:57 Abnormal Lab Results - Last 24 Hours (Table) 04/21/24 04/21/24 04/21/24 Range/Units 14:57 14:57 14:57 RBC 2.89 L (3.80-5.40) m/uL Hgb 8.5 L (11.4-16.0) gm/dL Hct 27.6 L (34.0-46.0) % RDW 15.9 H (11.5-15.5) % Chloride 108 H (98-107) mmol/L Creatinine 1.09 H (0.52-1.04) mg/dL Glucose 200 H (74-99) mg/dL Troponin I 0.308 H* (0.000-0.034) ng/mL 04/21/24 04/21/24 Range/Units 18:38 20:31 RBC (3.80-5.40) m/uL Hgb (11.4-16.0) gm/dL Hct (34.0-46.0) % RDW (11.5-15.5) % Chloride (98-107) mmol/L Creatinine (0.52-1.04) mg/dL Glucose (74-99) mg/dL Troponin I 0.298 H* 0.298 H* (0.000-0.034) ng/mL Diabetes panel 04/21/24 Range/Units 14:57 Sodium 142 (137-145) mmol/L Potassium 3.8 (3.5-5.1) mmol/L Chloride 108 H (98-107) mmol/L Carbon Dioxide 26 (22-30) mmol/L BUN 17 (7-17) mg/dL Creatinine 1.09 H (0.52-1.04) mg/dL Glucose 200 H (74-99) mg/dL Calcium 8.9 (8.4-10.2) mg/dL Calcium panel 04/21/24 Range/Units 14:57 Calcium 8.9 (8.4-10.2) mg/dL Pituitary panel 04/21/24 Range/Units 14:57 Sodium 142 (137-145) mmol/L Potassium 3.8 (3.5-5.1) mmol/L Chloride 108 H (98-107) mmol/L Carbon Dioxide 26 (22-30) mmol/L BUN 17 (7-17) mg/dL Creatinine 1.09 H (0.52-1.04) mg/dL Glucose 200 H (74-99) mg/dL Calcium 8.9 (8.4-10.2) mg/dL Adrenal panel 04/21/24 Range/Units 14:57 Sodium 142 (137-145) mmol/L Potassium 3.8 (3.5-5.1) mmol/L Chloride 108 H (98-107) mmol/L Carbon Dioxide 26 (22-30) mmol/L BUN 17 (7-17) mg/dL Creatinine 1.09 H (0.52-1.04) mg/dL Glucose 200 H (74-99) mg/dL Calcium 8.9 (8.4-10.2) mg/dL - Imaging Chest x-ray: report reviewed, image reviewed Assessment and Plan Assessment: Coronary artery disease with left main disease, non-STEMI this admission Chest pain, likely secondary to her recent myocardial vascularization surgery, sternum stable heart hugger in place Paroxysmal atrial fibrillation, known common occurrence after open heart surgery, currently sinus History of mild nonobstructive coronary artery disease in the LAD from heart cath in 2019 Hypertension Hyperlipidemia with anaphylactic reaction to statins, cholesterol 225, LDL 155 Insulin-dependent diabetes, uncontrolled hyperglycemia with hemoglobin A1c 8.5% History of left lower extremity DVT Asthma/COPD, patient is on home oxygen Lifelong non-smoker, preoperative FEV1 97% of predicted Obstructive sleep apnea with home CPAP use Chronic kidney disease Left foot drop after back surgery Chronic pain with chronic narcotic dependence Plan: The patient was seen and examined at her bedside in the emergency department. Her chart and diagnostics were reviewed. Her case was discussed in detail with Dr. Jer Gold from cardiothoracic surgery. Per the cardiothoracic surgery standpoint the patient could be discharged home with home health care and follow-up as an outpatient. Dressings to her chest tube insertion site can be changed as needed, and if continues to drain may place a colostomy bag to collect the drainage and change as needed. Pain control per Dr. Lisa's recommendations, as the patient takes chronic narcotics as an outpatient. Continue to follow postoperative cardiothoracic surgery discharge orders which have been reviewed with the patient. Thank you for this consult, and the patient could be discharged home per the cardiothoracic surgery standpoint when okay by cardiology and primary care service. I have personally seen and examined the patient, performed the documentation and the assessment and plan as written. Number of minutes spent on the visit: 30. JOSIAH Olivier Time with Patient: Greater than 30
[2024-04-22] MEDS ORDERED: amLODIPine 2.5 MG TAB PO SCH (12:00)
[2024-04-22] MEDS: IPRATROPIUM-ALBUTEROL 3 ML NEB INHALATION SCH (12:02)
[2024-04-22] MEDS: SODIUM FERRIC GLUCONAT-SUCROSE 125 MG in SODIUM CHLORIDE 0.9% 100 ML IVPB SCH (12:54)
[2024-04-22] MEDS: amLODIPine 5 MG TAB PO SCH (12:54)
[2024-04-22 12:55] LABS: Chol/HDL Ratio 4.47 Ratio; LDL Cholesterol,Calculated 101.7 mg/dL (0.0-131.0)
--- NOTE | 2024-04-22 13:45 | HP ---
HISTORY AND PHYSICAL SUBJECTIVE: Underwent CABG at the hospital last week. She came back due to increased drainage from one of the sites for the SHAMA which was dressed and some chest pain. Blood pressure is slightly elevated. Blood pressure 140s over 70s. There are ST-T changes. Hemoglobin is 8.5. REVIEW OF SYSTEMS: A 14-point review of systems, otherwise, negative. PAST MEDICAL HISTORY: See old chart. SURGICAL HISTORY: Reviewed. FAMILY HISTORY: Reviewed. PHYSICAL EXAMINATION: VITAL SIGNS: Reviewed. HEAD: Normocephalic and atraumatic. NECK: Supple. No mass. LUNGS: Scattered wheeze, mild x4. HEART: S1, S2. Surgical scar shows no signs of dehiscence, some serosanguineous drainage. ABDOMEN: Soft. HEMATOLOGY: Negative Homans. PSYCH: Fair mood and affect. She has excessive drainage from SHAMA drain sites, coronary artery disease, status post CABG, COPD, asthma, NSTEMI type 4. ALLERGIES: To statins. MEDICATIONS: 1. Lidocaine patch for the chest pain. 2. Iron supplementation. 3. Amiodarone for AFib. 4. Plavix. 5. Zetia. 6. Aspirin. 7. Metoprolol. 8. Farxiga. She is cleared from surgical standpoint by Cardiology. She may go home. We will see how it goes. PAST MEDICAL HISTORY: As mentioned, asthma, coronary artery disease, chest pain, angina, COPD, diabetes mellitus, DVT, GERD, dyslipidemia, hypertension, myocardial infarction, musculoskeletal disorder, osteoarthritis, renal disease, sleep apnea. CONDITION: Stable. PROGNOSIS: Guarded. Please see further orders. MMODL / IJN: [id number] /
[2024-04-22 19:11] VITALS: BP 134/84; PULSE 72
[2024-04-22] MEDS ORDERED: INSULIN DETEMIR (LEVEMIR) 100 UNIT/ML SYR SQ SCH (21:00)
[2024-04-22] MEDS ORDERED: MONTELUKAST 10 MG TAB PO SCH (21:00)
[2024-04-22] MEDS ORDERED: METOPROLOL TARTRATE 25 MG TAB PO SCH (21:00)
[2024-04-22] MEDS ORDERED: AZELASTINE 137MCG/SPRAY NASAL SCH (21:00)
[2024-04-23] MEDS ORDERED: AMIODARONE 200 MG TAB PO SCH (09:00)
== END 2024-04-22 19:09 | disposition home health service (06) ==
LOC: EC 13:34 → 3SCARD 15:47
PROVIDERS: ADMIT Family Medicine; ATTEND Family Medicine
DX: I21.4 Non-ST elevation (NSTEMI) myocardial infarction (principal); I25.10 Atherosclerotic heart disease of native coronary artery without angina pectoris; T85.9XXA Unspecified complication of internal prosthetic device, implant and graft, initial encounter; J44.9 Chronic obstructive pulmonary disease, unspecified; E11.65 Type 2 diabetes mellitus with hyperglycemia; E11.22 Type 2 diabetes mellitus with diabetic chronic kidney disease; I12.9 Hypertensive chronic kidney disease with stage 1 through stage 4 chronic kidney disease, or unspecified chronic kidney disease; N18.2 Chronic kidney disease, stage 2 (mild); D63.1 Anemia in chronic kidney disease; I48.0 Paroxysmal atrial fibrillation; J98.11 Atelectasis; J90 Pleural effusion, not elsewhere classified; E78.5 Hyperlipidemia, unspecified; G89.29 Other chronic pain; M21.372 Foot drop, left foot; G47.33 Obstructive sleep apnea (adult) (pediatric); F41.9 Anxiety disorder, unspecified; Z79.4 Long term (current) use of insulin; Z79.891 Long term (current) use of opiate analgesic; Z79.82 Long term (current) use of aspirin; Z79.02 Long term (current) use of antithrombotics/antiplatelets; Z79.84 Long term (current) use of oral hypoglycemic drugs; Z79.899 Other long term (current) drug therapy; Z86.718 Personal history of other venous thrombosis and embolism; Z87.892 Personal history of anaphylaxis; Z88.8 Allergy status to other drugs, medicaments and biological substances; Z91.041 Radiographic dye allergy status; Z91.013 Allergy to seafood; Z95.1 Presence of aortocoronary bypass graft; Z98.890 Other specified postprocedural states; Z99.81 Dependence on supplemental oxygen; Z99.89 Dependence on other enabling machines and devices
CPT/HCPCS: 96376; 96365; 96375; 99285; 36415; 94640 ×2; 93005; 80061; 80048; 84484; 85025; 71046; G0378 ×2; J2270 ×2; J2916

== ENCOUNTER 2024-04-29 12:12 | Inpatient (IN) | payer MEDICARE, OTHER ==
--- NOTE | 2024-04-29 12:33 | ED ---
General Adult HPI - General Chief complaint: Recheck/Abnormal Lab/Rx Stated complaint: hallucinations/mental health Time Seen by Provider: 04/29/24 12:21 Source: patient, family, RN notes reviewed Mode of arrival: ambulatory Limitations: no limitations - History of Present Illness Initial comments: Patient is a 68-year-old female present to the emergency department with concerns with hallucinations. Majority of history comes from daughter. Patient did have CABG done on Halloween. Patient does have some shortness of breath. Decreased oral intake yesterday. No history of hallucinations previously. Patient is seeing people and talking with them. Patient does not know who they are. No suicidal or homicidal ideation - Related Data Home Medications Medication Instructions Recorded Confirmed Montelukast [Singulair] 10 mg PO HS 10/17/20 04/29/24 Aspirin [Adult Low Dose Aspirin EC] 81 mg PO DAILY 04/21/22 04/29/24 HYDROcodone/APAP 5-325MG [[place] 1 tab PO TID 05/21/23 04/29/24 5-325] Azelastine HCl [Astelin Nasal 2 sprays NASAL BID 09/26/23 04/29/24 [place]] Pantoprazole [Protonix] 40 mg PO BID 09/26/23 04/29/24 Dicyclomine [Bentyl] 10 mg PO TID 04/03/24 04/29/24 Gabapentin 300 mg PO TID 04/03/24 04/29/24 INSULIN LISPRO (humaLOG) [humaLOG] See Protocol SQ AC-TID 04/03/24 04/29/24 Insulin Glargine,Hum.rec.anlog 30 units SQ HS 04/03/24 04/29/24 [Lantus Solostar Pen] Amiodarone [Cordarone] 200 mg PO DAILY 04/21/24 04/29/24 Sennosides-Docusate Sodium 2 tab PO HS PRN 04/21/24 04/29/24 [Senokot-S] Previous Rx's Medication Instructions Recorded Bumetanide [BUMEX] 1 mg PO DAILY 90 Days #90 tab 05/26/23 Budesonide [Pulmicort] 0.5 mg INHALATION RT-BID 30 Days 04/08/24 #60 ml Dapagliflozin Propanediol [Farxiga] 10 mg PO DAILY 30 Days #30 tab 04/08/24 Ipratropium-Albuterol Nebulize 3 ml INHALATION RT-QID 30 Days 04/08/24 [Duoneb 0.5 mg-3 mg/3 ml Soln] #120 each Loratadine [Claritin] 10 mg PO DAILY tab 04/08/24 Acetaminophen Tab [Tylenol] 650 mg PO Q4HR PRN tab 04/16/24 Clopidogrel [Plavix] 75 mg PO DAILY #30 tab 04/16/24 Ezetimibe [Zetia] 10 mg PO DAILY #30 tab 04/16/24 Metoprolol Tartrate [Lopressor] 25 mg PO BID #60 tab 04/16/24 amLODIPine [Norvasc] 2.5 mg PO DAILY@1200 #30 tab 04/16/24 Allergies Allergy/AdvReac Type Severity Reaction Status Date / Time Iodinated Contrast Media Allergy Severe Anaphylaxis Verified 04/29/24 14:00 [Iodinated Contrast Media - IV Dye] shellfish derived [Shellfish] Allergy Severe Anaphylaxis Verified 04/29/24 14:00 iodine Allergy Anaphylaxis Verified 04/29/24 14:00 Fneglvq-MCE-AuX Reductase Allergy Anaphylaxis Verified 04/29/24 14:00 Inhibitor [Veddloe-Zdj-Zhs Reductase Inhibitor] Review of Systems ROS Statement: Those systems with pertinent positive or pertinent negative responses have been documented in the HPI. ROS Other: All systems not noted in ROS Statement are negative. Constitutional: Denies: fever Eyes: Denies: eye pain ENT: Denies: ear pain Respiratory: Reports: as per HPI, dyspnea. Denies: cough Cardiovascular: Reports: edema. Denies: chest pain Endocrine: Denies: fatigue Gastrointestinal: Denies: abdominal pain Genitourinary: Denies: dysuria Musculoskeletal: Denies: back pain Skin: Denies: rash Neurological: Reports: as per HPI. Denies: headache Psychiatric: Reports: as per HPI, auditory hallucinations, visual hallucinations Past Medical History Past Medical History: Asthma, Coronary Artery Disease (CAD), Chest Pain / Angina, COPD, Diabetes Mellitus, Deep Vein Thrombosis (DVT), GERD/Reflux, Hyperlipidemia, Hypertension, Myocardial Infarction (HI), Musculoskeletal Disorder, Osteoarthritis (OA), Renal Disease, Sleep Apnea/CPAP/BIPAP Additional Past Medical History / Comment(s): PUD, colitis, benign colon polyps, DVT L leg, migraines, ANDREW - uses cpap. kidney stones, CKD stage II, vertigo, recurrent L ear infections/ruptured eardrum, TMJ, mild CAD, back prob - NT Lt arm, leg. Edema BLE. covid + 01/19/2021; left foot drop Last Myocardial Infarction Date:: 2009 History of Any Multi-Drug Resistant Organisms: None Reported Past Surgical History: Appendectomy, Cholecystectomy, Ear Surgery, Heart Catheterization, Hysterectomy, Joint Replacement, Orthopedic Surgery, Tonsillectomy Additional Past Surgical History / Comment(s): R/L knee arthroscopies, L ear patch/graft, EGD, colonoscopy/polypectomy, throat abscess. Right knee replacement, back surgery, Past Anesthesia/Blood Transfusion Reactions: Postoperative Nausea & Vomiting (PONV) Past Psychological History: Anxiety Smoking Status: Never smoker Past Alcohol Use History: None Reported Past Drug Use History: None Reported - Past Family History Sister(s) History Unknown: Yes Family Medical History: Cancer Father History Unknown: Yes Family Medical History: Cancer Additional Family Medical History / Comment(s): Throat and brain cancer. Father was an alcoholic. Mother History Unknown: Yes Family Medical History: Liver Disease Additional Family Medical History / Comment(s): Mother is . She was an alcoholic. General Exam Limitations: no limitations General appearance: alert, in no apparent distress Head exam: Present: normocephalic Eye exam: Present: normal appearance, PERRL, EOMI ENT exam: Present: mucous membranes dry Neck exam: Present: normal inspection Respiratory exam: Present: rales Cardiovascular Exam: Present: regular rate, normal rhythm GI/Abdominal exam: Present: soft. Absent: tenderness Extremities exam: Present: pedal edema. Absent: calf tenderness Neurological exam: Present: alert. Absent: motor sensory deficit Psychiatric exam: Present: normal affect, normal mood Skin exam: Present: normal color Course Vital Signs 04/29/24 04/29/24 04/29/24 12:15 12:49 13:49 Temperature 98.8 F Pulse Rate 69 67 70 Respiratory 20 18 20 Rate Blood Pressure 121/78 100/50 116/74 O2 Sat by Pulse 91 L 96 96 Oximetry EKG Findings - EKG Results: EKG: interpreted by ERMD (Left axis. Poor R wave progression. ), sinus rhythm, normal ST/T Procedures - ABG Interpretation Ph: 7.42 PCO2: 34 PO2: 51 Additional Comments: hypoxia Medical Decision Making - Medical Decision Making Was pt. sent in by a medical professional or institution (ROXANN Lizarraga, FOREST OFFICER, urgent care, hospital, or group home...) When possible be specific @ -No Did you speak to anyone other than the patient for history (EMS, parent, family, police, friend...)? What history was obtained from this source @ -Daughter is present and provides majority of history as patient is a poor historian. This includes recent CABG Did you review nursing and triage notes (agree or disagree)? Why? @ -I reviewed and agree with nursing and triage notes Were old charts reviewed (outside hosp., previous admission, EMS record, old EKG, old radiological studies, urgent care reports/EKG's, group home records)? Report findings @ -Previous chest x-ray reviewed Differential Diagnosis (chest pain, altered mental status, abdominal pain women, abdominal pain men, vaginal bleeding, weakness, fever, dyspnea, syncope, headache, dizziness, GI bleed, back pain, seizure, CVA, palpatations, mental health, musculoskeletal)? @ -Differential Altered Mental Status: Hypoglycemia, DKA, hypercapnia, ETOH, overdose, CO poisoning, trauma, myxedema coma, HTN encephalopathy, infection, encephalitis, psychosis, intercranial hemorrhage, hepatic encephalopathy, meningitis, CVA, this is not meant to be an all-inclusive list EKG interpreted by me (3pts min.). @ -As above X-rays interpreted by me (1pt min.). @ -Chest x-ray left lower lobe infiltrate CT interpreted by me (1pt min.). @ -CT scan of the brain reveals no acute abnormality U/S interpreted by me (1pt. min.). @ -None done What testing was considered but not performed or refused? (CT, X-rays, U/S, labs)? Why? @ -None What meds were considered but not given or refused? Why? @ -None Did you discuss the management of the patient with other professionals (professionals i.e. ROXANN Lizarraga, FOREST OFFICER, lab, RT, psych nurse, health care social worker, mandolin repairer, teacher, corporate ethics officer, disability case manager)? Give summary @ -Case was discussed with Dr. Lisa who will admit his patient. He will come evaluate patient as well. Case also discussed with cardiothoracic, Dr.'s mccann who will consult Was smoking cessation discussed for >3mins.? @ -No Was critical care preformed (if so, how long)? @ -31 minutes critical care Were there social determinants of health that impacted care today? How? (Homelessness, low income, unemployed, alcoholism, drug addiction, transportation, low edu. Level, literacy, decrease access to med. care, fdc, rehab)? @ -No Was there de-escalation of care discussed even if they declined (Discuss DNR or withdrawal of care, Hospice)? DNR status @ -No What co-morbidities impacted this encounter? (DM, HTN, Smoking, COPD, CAD, Cancer, CVA, ARF, Chemo, Hep., AIDS, mental health diagnosis, sleep apnea, morbid obesity)? @ -Recent CABG Was patient admitted / discharged? Hospital course, mention meds given and route, prescriptions, significant lab abnormalities, going to OR and other pe rtinent info. @ -Patient presents with shortness of breath and hallucinations. Patient is hypoxic and he has concern for infiltrate on chest x-ray. Patient will be admitted. Blood culture and lactic acid and iv antibiotics will be started. Admission orders written. Undiagnosed new problem with uncertain prognosis? @ -No Drug Therapy requiring intensive monitoring for toxicity (Heparin, Nitro, Insulin, Cardizem)? @ -No Were any procedures done? @ -No Diagnosis/symptom? @ -Pneumonia, hallucination Acute, or Chronic, or Acute on Chronic? @ -, Acute, acute Uncomplicated (without systemic symptoms) or Complicated (systemic symptoms)? @ -Complicated with hypoxia Side effects of treatment? @ -No Exacerbation, Progression, or Severe Exacerbation? @ -No Poses a threat to life or bodily function? How? (Chest pain, [place], HI, pneumonia, PE, COPD, DKA, ARF, appy, cholecystitis, CVA, Diverticulitis, Homicidal, Suicidal, threat to staff... and all critical care pts) @ -Threat to pulmonary and cardiac function - Lab Data Result diagrams: 04/29/24 13:52 04/29/24 12:52 Lab Results 04/29/24 04/29/24 04/29/24 Range/Units 12:52 12:52 12:52 WBC (3.8-10.6) k/uL RBC (3.80-5.40) m/uL Hgb (11.4-16.0) gm/dL Hct (34.0-46.0) % MCV (80.0-100.0) fL MCH (25.0-35.0) pg MCHC (31.0-37.0) g/dL RDW (11.5-15.5) % Plt Count (150-450) k/uL MPV Neutrophils % % Lymphocytes % % Monocytes % % Eosinophils % % Basophils % % Neutrophils # (1.3-7.7) k/uL Lymphocytes # (1.0-4.8) k/uL Monocytes # (0-1.0) k/uL Eosinophils # (0-0.7) k/uL Basophils # (0-0.2) k/uL Hypochromasia Poikilocytosis PT (10.0-12.5) sec INR (<1.2) APTT (22.0-30.0) sec Sample Site ABG pH (7.35-7.45) ABG pCO2 (35-45) mmHg ABG pO2 (83-108) mmHg ABG HCO3 (21-25) mmol/L ABG Total CO2 (19-24) mmol/L ABG O2 Saturation (94-97) % ABG Base Excess mmol/L Jonnathan Test Hemoglobin (11.4-16.0) gm/dL FiO2 % Sodium 141 (137-145) mmol/L Potassium 3.6 (3.5-5.1) mmol/L Chloride 111 H (98-107) mmol/L Carbon Dioxide 21 L (22-30) mmol/L Anion Gap 9 mmol/L BUN 16 (7-17) mg/dL Creatinine 1.25 H (0.52-1.04) mg/dL Est GFR (CKD-EPI)AfAm 51 (>60 ml/min/1.73 sqM) Est GFR (CKD-EPI)NonAf 44 (>60 ml/min/1.73 sqM) Glucose 116 H (74-99) mg/dL POC Glucose (mg/dL) (70-110) mg/dL POC Glu Pe Manager ID Calcium 8.7 (8.4-10.2) mg/dL Total Bilirubin 1.2 (0.2-1.3) mg/dL AST 22 (14-36) U/L ALT 15 (4-34) U/L Alkaline Phosphatase 93 (38-126) U/L NT-Pro-B Natriuret Pep 3940 pg/mL Total Protein 6.1 L (6.3-8.2) g/dL Albumin 3.6 (3.5-5.0) g/dL Urine Color Light Yellow Urine Appearance Clear (Clear) Urine pH 5.5 (5.0-8.0) Ur Specific Leonidas 1.021 (1.001-1.035) Urine Protein Trace H (Negative) Urine Glucose (UA) 4+ H (Negative) Urine Ketones 1+ H (Negative) Urine Blood Negative (Negative) Urine Nitrite Negative (Negative) Urine Bilirubin Negative (Negative) Urine Urobilinogen <2.0 (<2.0) mg/dL Ur Leukocyte Esterase Negative (Negative) Urine Opiates Screen Detected H (NotDetected) Ur Oxycodone Screen Not Detected (NotDetected) Urine Methadone Screen Not Detected (NotDetected) Ur Barbiturates Screen Not Detected (NotDetected) U Tricyclic Antidepress Not Detected (NotDetected) Ur Phencyclidine Scrn Not Detected (NotDetected) Ur Amphetamines Screen Not Detected (NotDetected) U Methamphetamines Scrn Not Detected (NotDetected) U Benzodiazepines Scrn Detected H (NotDetected) Urine Cocaine Screen Not Detected (NotDetected) U Marijuana (THC) Screen Not Detected (NotDetected) Serum Alcohol <10 mg/dL 04/29/24 04/29/24 04/29/24 Range/Units 12:52 13:23 13:52 WBC 8.2 (3.8-10.6) k/uL RBC 2.89 L (3.80-5.40) m/uL Hgb 8.5 L (11.4-16.0) gm/dL Hct 27.3 L (34.0-46.0) % MCV 94.5 (80.0-100.0) fL MCH 29.5 (25.0-35.0) pg MCHC 31.3 (31.0-37.0) g/dL RDW 15.6 H (11.5-15.5) % Plt Count 433 (150-450) k/uL MPV 7.6 Neutrophils % 68 % Lymphocytes % 17 % Monocytes % 7 % Eosinophils % 6 % Basophils % 0 % Neutrophils # 5.6 (1.3-7.7) k/uL Lymphocytes # 1.4 (1.0-4.8) k/uL Monocytes # 0.6 (0-1.0) k/uL Eosinophils # 0.5 (0-0.7) k/uL Basophils # 0.0 (0-0.2) k/uL Hypochromasia Moderate Poikilocytosis Slight PT (10.0-12.5) sec INR (<1.2) APTT (22.0-30.0) sec Sample Site Right Radial ABG pH 7.43 (7.35-7.45) ABG pCO2 35 (35-45) mmHg ABG pO2 51 L* (83-108) mmHg ABG HCO3 23 (21-25) mmol/L ABG Total CO2 24 (19-24) mmol/L ABG O2 Saturation 87.3 L (94-97) % ABG Base Excess -1.1 mmol/L Jonnathan Test Yes Hemoglobin 8.2 L (11.4-16.0) gm/dL FiO2 21 % Sodium (137-145) mmol/L Potassium (3.5-5.1) mmol/L Chloride (98-107) mmol/L Carbon Dioxide (22-30) mmol/L Anion Gap mmol/L BUN (7-17) mg/dL Creatinine (0.52-1.04) mg/dL Est GFR (CKD-EPI)AfAm (>60 ml/min/1.73 sqM) Est GFR (CKD-EPI)NonAf (>60 ml/min/1.73 sqM) Glucose (74-99) mg/dL POC Glucose (mg/dL) 125 H (70-110) mg/dL POC Glu Pe Manager ID September Calcium (8.4-10.2) mg/dL Total Bilirubin (0.2-1.3) mg/dL AST (14-36) U/L ALT (4-34) U/L Alkaline Phosphatase (38-126) U/L NT-Pro-B Natriuret Pep pg/mL Total Protein (6.3-8.2) g/dL Albumin (3.5-5.0) g/dL Urine Color Urine Appearance (Clear) Urine pH (5.0-8.0) Ur Specific Leonidas (1.001-1.035) Urine Protein (Negative) Urine Glucose (UA) (Negative) Urine Ketones (Negative) Urine Blood (Negative) Urine Nitrite (Negative) Urine Bilirubin (Negative) Urine Urobilinogen (<2.0) mg/dL Ur Leukocyte Esterase (Negative) Urine Opiates Screen (NotDetected) Ur Oxycodone Screen (NotDetected) Urine Methadone Screen (NotDetected) Ur Barbiturates Screen (NotDetected) U Tricyclic Antidepress (NotDetected) Ur Phencyclidine Scrn (NotDetected) Ur Amphetamines Screen (NotDetected) U Methamphetamines Scrn (NotDetected) U Benzodiazepines Scrn (NotDetected) Urine Cocaine Screen (NotDetected) U Marijuana (THC) Screen (NotDetected) Serum Alcohol mg/dL 04/29/24 Range/Units 13:52 WBC (3.8-10.6) k/uL RBC (3.80-5.40) m/uL Hgb (11.4-16.0) gm/dL Hct (34.0-46.0) % MCV (80.0-100.0) fL MCH (25.0-35.0) pg MCHC (31.0-37.0) g/dL RDW (11.5-15.5) % Plt Count (150-450) k/uL MPV Neutrophils % % Lymphocytes % % Monocytes % % Eosinophils % % Basophils % % Neutrophils # (1.3-7.7) k/uL Lymphocytes # (1.0-4.8) k/uL Monocytes # (0-1.0) k/uL Eosinophils # (0-0.7) k/uL Basophils # (0-0.2) k/uL Hypochromasia Poikilocytosis PT 11.9 (10.0-12.5) sec INR 1.1 (<1.2) APTT 30.0 (22.0-30.0) sec Sample Site ABG pH (7.35-7.45) ABG pCO2 (35-45) mmHg ABG pO2 (83-108) mmHg ABG HCO3 (21-25) mmol/L ABG Total CO2 (19-24) mmol/L ABG O2 Saturation (94-97) % ABG Base Excess mmol/L Jonnathan Test Hemoglobin (11.4-16.0) gm/dL FiO2 % Sodium (137-145) mmol/L Potassium (3.5-5.1) mmol/L Chloride (98-107) mmol/L Carbon Dioxide (22-30) mmol/L Anion Gap mmol/L BUN (7-17) mg/dL Creatinine (0.52-1.04) mg/dL Est GFR (CKD-EPI)AfAm (>60 ml/min/1.73 sqM) Est GFR (CKD-EPI)NonAf (>60 ml/min/1.73 sqM) Glucose (74-99) mg/dL POC Glucose (mg/dL) (70-110) mg/dL POC Glu Pe Manager ID Calcium (8.4-10.2) mg/dL Total Bilirubin (0.2-1.3) mg/dL AST (14-36) U/L ALT (4-34) U/L Alkaline Phosphatase (38-126) U/L NT-Pro-B Natriuret Pep pg/mL Total Protein (6.3-8.2) g/dL Albumin (3.5-5.0) g/dL Urine Color Urine Appearance (Clear) Urine pH (5.0-8.0) Ur Specific Leonidas (1.001-1.035) Urine Protein (Negative) Urine Glucose (UA) (Negative) Urine Ketones (Negative) Urine Blood (Negative) Urine Nitrite (Negative) Urine Bilirubin (Negative) Urine Urobilinogen (<2.0) mg/dL Ur Leukocyte Esterase (Negative) Urine Opiates Screen (NotDetected) Ur Oxycodone Screen (NotDetected) Urine Methadone Screen (NotDetected) Ur Barbiturates Screen (NotDetected) U Tricyclic Antidepress (NotDetected) Ur Phencyclidine Scrn (NotDetected) Ur Amphetamines Screen (NotDetected) U Methamphetamines Scrn (NotDetected) U Benzodiazepines Scrn (NotDetected) Urine Cocaine Screen (NotDetected) U Marijuana (THC) Screen (NotDetected) Serum Alcohol mg/dL Critical Care Time Critical Care Time: Yes Disposition Clinical Impression: Pneumonia Disposition: ADMITTED IP TO THIS HOSP Condition: Serious Is patient prescribed a controlled substance at d/c from ED?: No Referrals: Tavo Lisa MD [Primary Care Provider] - 1-2 days Time of Disposition: 14:51
[2024-04-29 12:54] LABS: Glucose,Whole Blood 125 mg/dL (70-110)
[2024-04-29 13:24] LABS: Appearance,Urine Clear (Clear); Bilirubin,Urine Negative (Negative); Blood,Urine Negative (Negative); Color,Urine Light Yellow; Glucose,Urine (UA) 4+ (Negative); Ketones,Urine 1+ (Negative); Leukocyte Esterase,Urine Negative (Negative); Nitrite,Urine Negative (Negative); PH, Urine 5.5 (5.0-8.0); Protein,Urine Trace (Negative); Specific Gravity,Urine 1.021 (1.001-1.035); Urobilinogen,Urine <2.0 mg/dL (<2.0)
[2024-04-29 13:26] LABS: ABG Base Excess -1.1 mmol/L; ABG HCO3 23 mmol/L (21-25); ABG Oxygen Saturation 87.3 % (94-97); ABG PCO2 35 mmHg (35-45); ABG PH 7.43 (7.35-7.45); ABG TCO2 24 mmol/L (19-24); Allen Test Performed? Yes
[2024-04-29 13:33] LABS: ALT 15 U/L (4-34); AST 22 U/L (14-36); African American GFR (CKD) 51 (>60 ml/min/1.73 sqM); Albumin 3.6 g/dL (3.5-5.0); Alcohol <10 mg/dL; Alkaline Phosphatase 93 U/L (38-126); Anion Gap 9 mmol/L; Blood Urea Nitrogen 16 mg/dL (7-17); Calcium 8.7 mg/dL (8.4-10.2); Carbon Dioxide 21 mmol/L (22-30); Chloride 111 mmol/L (98-107); Glucose 116 mg/dL (74-99); Non-African American GFR(CKD) 44 (>60 ml/min/1.73 sqM); Potassium 3.6 mmol/L (3.5-5.1); Sodium 141 mmol/L (137-145); Total Bilirubin 1.2 mg/dL (0.2-1.3); Total Protein 6.1 g/dL (6.3-8.2)
[2024-04-29 13:34] LABS: ABG PO2 51 mmHg (83-108)
[2024-04-29 13:41] LABS: NT-Pro-B-Type Natriuretic Pept 3940 pg/mL
--- NOTE | 2024-04-29 13:49 | XR ---
EXAMINATION TYPE: XR chest 2V DATE OF EXAM: 04/29/2024 1:44 PM COMPARISON: 04/21/2024 CLINICAL INDICATION: Female, 68 years old with history of altered mental status, TECHNIQUE: XR chest 2V view(s) obtained. FINDINGS: The heart size is upper limits of normal. The pulmonary vasculature is normal. Left lower lobe infiltrate may be present. There is silhouetting of the left diaphragm.. IMPRESSION: 1. Left lower lobe infiltrate. [facility], , 04/29/2024 1:47 PM
--- NOTE | 2024-04-29 14:00 | CT ---
EXAMINATION TYPE: CT brain wo con DATE OF EXAM: 04/29/2024 1:53 PM COMPARISON: None. CLINICAL INDICATION: Female, 68 years old with history of Altered mental status, AMS, open heart sx o n 04/12/24, lethargic TECHNIQUE: CT of the brain is performed utilizing 3 mm thick sections through the posterior fossa and 3 mm thick sections through the remaining calvarium. Study is performed within 24 hours of arrival to the hospital. Contrast used: mL of , (none if empty) CT DLP: 1119.4 mGycm, Automated exposure control for dose reduction was used. FINDINGS: No abnormal hyperdensity is present to suggest an acute intracranial hemorrhage. No mass lesion is evident. No acute infarcts are evident. Ventricles and sulci are appropriate for the patient age. Paranasal sinuses and mastoid air cells within the [id number] are clear. IMPRESSION: 1. No acute intracranial process. Follow up MRI can be performed as clinically indicated. [facility], , 04/29/2024 1:58 PM
[2024-04-29 14:04] LABS: Basophils % (A) 0 %; Eosinophils # (A) 0.5 k/uL (0-0.7); Eosinophils % (A) 6 %; HCT 27.3 % (34.0-46.0); HGB 8.5 gm/dL (11.4-16.0); Hypochromasia Moderate; Lymphocytes # (A) 1.4 k/uL (1.0-4.8); Lymphocytes % (A) 17 %; MCH 29.5 pg (25.0-35.0); MCHC 31.3 g/dL (31.0-37.0); MCV 94.5 fL (80.0-100.0); Mean Platelet Volume 7.6; Monocytes # (A) 0.6 k/uL (0-1.0); Monocytes % (A) 7 %; Neutrophils # (A) 5.6 k/uL (1.3-7.7); Neutrophils % (A) 68 %; Platelet Count 433 k/uL (150-450); Poikilocytosis Slight; RBC 2.89 m/uL (3.80-5.40); RDW 15.6 % (11.5-15.5); WBC 8.2 k/uL (3.8-10.6)
[2024-04-29 14:12] LABS: INR 1.1 (<1.2); Prothrombin Time 11.9 sec (10.0-12.5)
[2024-04-29 14:15] LABS: Amphetamine Screen,Urine Not Detected (NotDetected); Barbiturate Screen,Urine Not Detected (NotDetected); Benzodiazepines Screen,Urine Detected (NotDetected); Cocaine Screen,Urine Not Detected (NotDetected); Methadone Screen, Urine Not Detected (NotDetected); Opiate Screen,Urine Detected (NotDetected); Oxycodone Screen, Urine Not Detected (NotDetected); Phencyclidine Screen,Urine Not Detected (NotDetected); Tricyclic Antidepressant,Urine Not Detected (NotDetected); Urn Cannabinoid Scrn Not Detected (NotDetected)
[2024-04-29] MEDS ORDERED: AZITHROMYCIN 500 MG in SODIUM CHLORIDE 0.9% 250 ML IVPB STA (14:51)
[2024-04-29] MEDS ORDERED: PNEUMONIA PROTOCOL UTILIZED 1 EACH MISC PO PRN (14:51)
[2024-04-29] MEDS ORDERED: SENNOSIDES-DOCUSATE SODIUM 1 EACH TAB PO PRN (14:53)
[2024-04-29] MEDS: HYDROcodone/APAP 5-325MG 1 EACH TAB PO SCH (15:18)
[2024-04-29] MEDS: GABAPENTIN 300 MG CAP PO SCH (17:35)
[2024-04-29] MEDS: DICYCLOMINE 10 MG CAP PO SCH (17:41)
[2024-04-29] MEDS: IPRATROPIUM-ALBUTEROL 3 ML NEB INHALATION SCH (18:43)
[2024-04-29] MEDS: BUDESONIDE 0.5 MG/2 ML NEBU INHALATION SCH (18:47)
[2024-04-29] MEDS: AZITHROMYCIN 500 MG in SODIUM CHLORIDE 0.9% 250 ML IVPB STA (18:52)
[2024-04-29] MEDS: MONTELUKAST 10 MG TAB PO SCH (20:14)
[2024-04-29] MEDS: METOPROLOL TARTRATE 25 MG TAB PO SCH (20:15)
[2024-04-29] MEDS: PANTOPRAZOLE 40 MG TABLET PO SCH (20:15)
[2024-04-29] MEDS: AZELASTINE 137MCG/SPRAY NASAL SCH (20:58)
[2024-04-29] MEDS: INSULIN DETEMIR (LEVEMIR) 100 UNIT/ML SYR SQ SCH (21:01)
[2024-04-29 21:07] LABS: Glucose,Whole Blood 192 mg/dL (70-110)
--- NOTE | 2024-04-30 08:14 | CT ---
EXAMINATION TYPE: CT chest wo con DATE OF EXAM: 04/30/2024 COMPARISON: 05/21/2023 CLINICAL INDICATION: Female, 68 years old with history of pleural effusion; PHH, Pleural effusion, hy poxia, pneumonia TECHNIQUE: CT scan of the thorax is performed without IV contrast. CT DLP: 492.90 mGycm Automated exposure control for dose reduction was used. FINDINGS: LUNGS: Left basilar pleural effusion measuring 2.7 cm. Dependent atelectasis or infiltrate noted at t he left lung base. Groundglass density right lower lobe. Additional scattered groundglass infiltrates noted within the upper lobes could reflect acute inflammatory process. The tracheobronchial tree is patent. MEDIASTINUM: Lack of IV contrast is noted to limit evaluation for mediastinal and especially hilar ad enopathy. There are no definitive greater than 1 cm hilar or mediastinal lymph nodes. No cardiomega ly or pericardial effusion is seen. OTHER: No additional significant abnormality is seen. IMPRESSION: 1. Left basilar pleural effusion. 2. Scattered infiltrates could reflect acute inflammatory process. Correlate clinically. Follow-up recommendations for incidental pulmonary nodules are per [employer] or [employer]. [facility], , 04/30/2024 8:12 AM
--- NOTE | 2024-04-30 08:25 | XR ---
EXAMINATION TYPE: XR chest 2V DATE OF EXAM: 04/30/2024 7:43 AM COMPARISON: Chest radiographs from 04/29/2024. CLINICAL INDICATION: Female, 68 years old with history of pneumonia; [facility] TECHNIQUE: XR chest 2V Frontal and lateral views of the chest. FINDINGS: Lungs/Pleura: Multifocal groundglass opacities. There is no evidence of right pleural effusion, focal consolidation, or pneumothorax. Pulmonary vascularity: Unremarkable. Heart/mediastinum: Cardiomediastinal silhouette is enlarged and stable. Left atrial appendage occlusi on device is present. Musculoskeletal: No acute osseous pathology. Midline sternotomy wires are noted. Other findings: None IMPRESSION: 1. Multifocal groundglass opacities as seen on CT same day. Right sided predominant. Correlate for a typical pneumonia. 2. Cardiomegaly with post surgical change. Exam not significantly changed from 04/29/2024 [facility], , 04/30/2024 8:23 AM
[2024-04-30] MEDS: ASPIRIN 81 MG PO SCH (09:40)
[2024-04-30] MEDS: LORATADINE 10 MG TAB PO SCH (09:40)
[2024-04-30] MEDS: DAPAGLIFLOZIN PROPANEDIOL 10 MG TABLET PO SCH (09:41)
[2024-04-30] MEDS: CLOPIDOGREL 75 MG TAB PO SCH (09:42)
[2024-04-30] MEDS: AMIODARONE 200 MG TAB PO SCH (09:42)
[2024-04-30] MEDS: BUMETANIDE 1 MG TAB PO SCH (09:42)
[2024-04-30] MEDS: EZETIMIBE 10 MG TAB PO SCH (09:43)
[2024-04-30] MEDS: AZITHROMYCIN 500 MG TAB PO SCH (10:00)
--- NOTE | 2024-04-30 10:46 | P.CNPUL ---
History of Present Illness Consult date: 04/30/24 Reason for consult: dyspnea, cough, COPD, hypoxemia, obstructive sleep apnea Chief complaint: Confusion with shortness of breath History of present illness: 68-year-old morbidly obese female seen evaluate examined patient presented emergency department with progressively increasing confusion and hallucination in addition she has been having shortness of breath as well, patient is 2 weeks of post CABG discharged in stable condition, patient is well-known to me has prior history of COPD, coronary artery disease status post CABG, hypertension hypertensive cardiovascular disease, morbid obesity and sleep disordered b reathing and sleep apnea laboratory data reviewed ECG significant for left atrial enlargement low QRS complex with incomplete right bundle branch block. Chest x-ray significant for left lower lobe infiltrate CT scan no acute intracranial abnormality finding seen, recommended MRI chest CT revealed small left-sided basilar effusion, dependent atelectasis on the left side, infiltrate in the right upper lobe and right lower lobe noted likely suggesting pneumonia currently patient is on Rocephin Zithromax also on continuation of home medication including amiodarone, has been on DuoNeb as well. Currently patient is on 2 L Labs reviewed, white cell count is 8.2 hemoglobin hematocrit 8.5/27, arterial blood gas reveals 7 point /35/51 on room air PT/INR within normal limit, chemistry significant for hypokalemia with potassium of 3.6, BUN/creatinine is 16/1.25, Review of Systems All systems: negative Past Medical History Past Medical History: Asthma, Coronary Artery Disease (CAD), Chest Pain / Angina, COPD, Diabetes Mellitus, Deep Vein Thrombosis (DVT), GERD/Reflux, Hyperlipidemia, Hypertension, Myocardial Infarction ([place]), Musculoskeletal Disorder, Osteoarthritis (OA), Renal Disease, Sleep Apnea/CPAP/BIPAP Additional Past Medical History / Comment(s): PUD, colitis, benign colon polyps, DVT L leg, migraines, ANDREW - uses cpap. kidney stones, CKD stage II, vertigo, recurrent L ear infections/ruptured eardrum, TMJ, mild CAD, back prob - NT Lt arm, leg. Edema BLE. covid + 01/19/2021; left foot drop Last Myocardial Infarction Date:: 2009 History of Any Multi-Drug Resistant Organisms: None Reported Past Surgical History: Appendectomy, Cholecystectomy, Ear Surgery, Heart Catheterization, Hysterectomy, Joint Replacement, Orthopedic Surgery, Tonsillectomy Additional Past Surgical History / Comment(s): R/L knee arthroscopies, L ear patch/graft, EGD, colonoscopy/polypectomy, throat abscess. Right knee replacement, back surgery, Past Anesthesia/Blood Transfusion Reactions: Postoperative Nausea & Vomiting (PONV) Past Psychological History: Anxiety Additional Psychological History / Comment(s): Spouse has cancer Smoking Status: Never smoker Past Alcohol Use History: None Reported Past Drug Use History: None Reported - Past Family History Sister(s) History Unknown: Yes Family Medical History: Cancer Father History Unknown: Yes Family Medical History: Cancer Additional Family Medical History / Comment(s): Throat and brain cancer. Father was an alcoholic. Mother History Unknown: Yes Family Medical History: Liver Disease Additional Family Medical History / Comment(s): Mother is . She was an alcoholic. Medications and Allergies Home Medications Medication Instructions Recorded Confirmed Type Montelukast [Singulair] 10 mg PO HS 10/17/20 04/29/24 History Aspirin [Adult Low Dose Aspirin EC] 81 mg PO DAILY 04/21/22 04/29/24 History HYDROcodone/APAP 5-325MG [[place] 1 tab PO TID 05/21/23 04/29/24 History 5-325] Bumetanide [BUMEX] 1 mg PO DAILY 90 Days #90 tab 05/26/23 04/29/24 Rx Azelastine HCl [Astelin Nasal 2 sprays NASAL BID 09/26/23 04/29/24 History [place]] Pantoprazole [Protonix] 40 mg PO BID 09/26/23 04/29/24 History Dicyclomine [Bentyl] 10 mg PO TID 04/03/24 04/29/24 History Gabapentin 300 mg PO TID 04/03/24 04/29/24 History INSULIN LISPRO (humaLOG) [humaLOG] See Protocol SQ AC-TID 04/03/24 04/29/24 History Insulin Glargine,Hum.rec.anlog 30 units SQ HS 04/03/24 04/29/24 History [Lantus Solostar Pen] Budesonide [Pulmicort] 0.5 mg INHALATION RT-BID 30 Days 04/08/24 04/29/24 Rx #60 ml Dapagliflozin Propanediol [Farxiga] 10 mg PO DAILY 30 Days #30 tab 04/08/24 04/29/24 Rx Ipratropium-Albuterol Nebulize 3 ml INHALATION RT-QID 30 Days 04/08/24 04/29/24 Rx [Duoneb 0.5 mg-3 mg/3 ml Soln] #120 each Loratadine [Claritin] 10 mg PO DAILY tab 04/08/24 04/29/24 Rx Acetaminophen Tab [Tylenol] 650 mg PO Q4HR PRN tab 04/16/24 04/29/24 Rx Clopidogrel [Plavix] 75 mg PO DAILY #30 tab 04/16/24 04/29/24 Rx Ezetimibe [Zetia] 10 mg PO DAILY #30 tab 04/16/24 04/29/24 Rx Metoprolol Tartrate [Lopressor] 25 mg PO BID #60 tab 04/16/24 04/29/24 Rx amLODIPine [Norvasc] 2.5 mg PO DAILY@1200 #30 tab 04/16/24 04/29/24 Rx Amiodarone [Cordarone] 200 mg PO DAILY 04/21/24 04/29/24 History Sennosides-Docusate Sodium 2 tab PO HS PRN 04/21/24 04/29/24 History [Senokot-S] Allergies Allergy/AdvReac Type Severity Reaction Status Date / Time Iodinated Contrast Media Allergy Severe Anaphylaxis Verified 04/29/24 14:00 [Iodinated Contrast Media - IV Dye] shellfish derived [Shellfish] Allergy Severe Anaphylaxis Verified 04/29/24 14:00 iodine Allergy Anaphylaxis Verified 04/29/24 14:00 Zrboyag-PAE-BqO Reductase Allergy Anaphylaxis Verified 04/29/24 14:00 Inhibitor [Qysnzqw-Hbk-Nnb Reductase Inhibitor] Physical Exam Vitals: Vital Signs Temp Pulse Pulse Resp BP BP Pulse Ox 04/30/24 08:07 88 04/30/24 07:50 82 96 04/30/24 07:00 98.2 F 88 16 154/78 100 04/30/24 01:34 97.8 F 72 18 130/70 97 04/30/24 01:26 69 18 04/29/24 23:26 97.9 F 69 18 132/76 97 04/29/24 23:03 68 16 121/85 95 04/29/24 22:47 67 17 108/57 95 04/29/24 20:45 75 18 141/70 94 L 04/29/24 19:35 98.3 F 80 16 134/99 96 04/29/24 19:04 79 18 132/73 95 04/29/24 18:59 78 04/29/24 18:49 75 04/29/24 17:32 74 18 128/94 94 L 04/29/24 15:20 98.6 F 74 18 103/61 96 04/29/24 13:49 70 20 116/74 96 04/29/24 12:49 67 18 100/50 96 04/29/24 12:15 98.8 F 69 20 121/78 91 L Intake and Output 04/29/24 04/30/24 04/30/24 22:59 06:59 14:59 Intake Total 118 Output Total 200 Balance -200 118 Intake: Oral 118 Output: Urine 200 Other: Voiding Method External Catheter Weight 86.046 kg - Constitutional General appearance: average body habitus, cooperative, disheveled, mild distress - EENT Eyes: EOMI, PERRLA Ears: bilateral: normal - Neck Neck: normal ROM Carotids: bilateral: upstroke normal Thyroid: bilateral: normal size - Respiratory Respiratory: right: CTA, left: diminished - Cardiovascular Rhythm: regular Heart sounds: normal: S1, S2 - Gastrointestinal General gastrointestinal: normal bowel sounds - Integumentary Integumentary: normal turgor - Neurologic Neurologic: CNII-XII intact - Musculoskeletal Musculoskeletal: gait normal, generalized weakness, strength equal bilaterally - Psychiatric Psychiatric: A&O x's 3, appropriate affect, intact judgment & insight Results - Laboratory Findings CBC and BMP: 04/29/24 13:52 04/29/24 12:52 ABG ABG pH 7.43 (7.35-7.45) 04/29/24 13:23 ABG pCO2 35 mmHg (35-45) 04/29/24 13:23 ABG pO2 51 mmHg (83-108) L* 04/29/24 13:23 ABG O2 Saturation 87.3 % (94-97) L 04/29/24 13:23 PT/INR, D-dimer PT 11.9 sec (10.0-12.5) 04/29/24 13:52 INR 1.1 (<1.2) 04/29/24 13:52 Abnormal lab findings: Abnormal Labs 04/29/24 04/29/24 04/29/24 12:52 12:52 12:52 RBC Hgb Hct RDW ABG pO2 ABG O2 Saturation Hemoglobin Chloride 111 H Carbon Dioxide 21 L Creatinine 1.25 H Glucose 116 H POC Glucose (mg/dL) Total Protein 6.1 L Urine Protein Trace H Urine Glucose (UA) 4+ H Urine Ketones 1+ H Urine Opiates Screen Detected H U Benzodiazepines Scrn Detected H 04/29/24 04/29/24 04/29/24 12:52 13:23 13:52 RBC 2.89 L Hgb 8.5 L Hct 27.3 L RDW 15.6 H ABG pO2 51 L* ABG O2 Saturation 87.3 L Hemoglobin 8.2 L Chloride Carbon Dioxide Creatinine Glucose POC Glucose (mg/dL) 125 H Total Protein Urine Protein Urine Glucose (UA) Urine Ketones Urine Opiates Screen U Benzodiazepines Scrn 04/29/24 21:01 RBC Hgb Hct RDW ABG pO2 ABG O2 Saturation Hemoglobin Chloride Carbon Dioxide Creatinine Glucose POC Glucose (mg/dL) 192 H Total Protein Urine Protein Urine Glucose (UA) Urine Ketones Urine Opiates Screen U Benzodiazepines Scrn - Diagnostic Findings Chest x-ray: report reviewed, image reviewed CT scan - chest: report reviewed, image reviewed (Pending as noted above) Assessment and Plan Assessment: Acute on chronic hypoxic respiratory failure Healthcare associated pneumonia predominantly involving the right upper and lower lobe/aspiration pneumonia Altered mental status confusion with hallucination may very well be associated with Neurontin versus acute stroke Left sided small pleural effusion Acute kidney injury, Hypokalemia Left basilar compressive atelectasis Artery disease status post CABG Artery disease status post recent CABG Plan: Continue supplemental oxygen along with BiPAP 14 over 7 40% oxygen as needed and each night Patient may very well have Neurontin toxicity, would recommend to stop Neurontin discussed with RN Antibiotics needs to be broadened from Zithromax and Rocephin to aspiration pneumonia versus healthcare pneumonia association, will involve infectious disease Replace potassium Continue to monitor urine output and renal functions closely repeat labs tomorrow Deep breathing exercises incentive spirometry Repeat labs tomorrow Obtain MRI of the brain Time with Patient: Greater than 30
--- NOTE | 2024-04-30 14:50 | P.CNNES ---
History of Present Illness Consult date: 04/30/24 Requesting physician: Mike Rios Reason for Consult: encephalopathy History of Present Illness: This is a 68-year-old woman who present emergency department because hallucination. History is obtained from medical record as well as the patient nurse. Patient is a poor historian. It seems the patient had a CABG done this Halloween and the nurse since then the patient's been confused. Seems the patient's been hallucinating. She is having shortness of breath and decreased oral intake. According the patient she does not have any history of seizures in the past. Seems that she has pneumonia and infection diseases consulted. Some of the workup during this hospital visit consisted of: Pulse ox is as low as 91% at room air. Patient is afebrile. White blood cell is within normal limits. Sodium, calcium, AST ALT is within normal limits. Creatinine is 1.25. Serum glucose is 116. UDS is positive for opiates and benzodiazepine. Serum alcohol is less than 10 ABG: pO2 was 51. CT head is reported as no acute intracranial process. I personally reviewed the CT and agree with the report. CT chest: Left basilar pleural effusion. The scattered infiltrates could reflect acute inflammatory process. Review of Systems Limited but as per HPI. Past Medical History Past Medical History: Asthma, Coronary Artery Disease (CAD), Chest Pain / Angina , COPD, Diabetes Mellitus, Deep Vein Thrombosis (DVT), GERD/Reflux, Hyperlipidemia, Hypertension, Myocardial Infarction ([place]), Musculoskeletal Disorder, Osteoarthritis (OA), Renal Disease, Sleep Apnea/CPAP/BIPAP Additional Past Medical History / Comment(s): PUD, colitis, benign colon polyps, DVT L leg, migraines, ANDREW - uses cpap. kidney stones, CKD stage II, vertigo, recurrent L ear infections/ruptured eardrum, TMJ, mild CAD, back prob - NT Lt arm, leg. Edema BLE. covid + 01/19/2021; left foot drop Last Myocardial Infarction Date:: 2009 History of Any Multi-Drug Resistant Organisms: None Reported Past Surgical History: Appendectomy, Cholecystectomy, Ear Surgery, Heart Catheterization, Hysterectomy, Joint Replacement, Orthopedic Surgery, Tonsillectomy Additional Past Surgical History / Comment(s): R/L knee arthroscopies, L ear patch/graft, EGD, colonoscopy/polypectomy, throat abscess. Right knee replacement, back surgery, Past Anesthesia/Blood Transfusion Reactions: Postoperative Nausea & Vomiting (PONV) Past Psychological History: Anxiety Additional Psychological History / Comment(s): Spouse has cancer Smoking Status: Never smoker Past Alcohol Use History: None Reported Past Drug Use History: None Reported - Past Family History Sister(s) History Unknown: Yes Family Medical History: Cancer Father History Unknown: Yes Family Medical History: Cancer Additional Family Medical History / Comment(s): Throat and brain cancer. Father was an alcoholic. Mother History Unknown: Yes Family Medical History: Liver Disease Additional Family Medical History / Comment(s): Mother is . She was an alcoholic. Medications and Allergies Home Medications Medication Instructions Recorded Confirmed Type Montelukast [Singulair] 10 mg PO HS 10/17/20 04/29/24 History Aspirin [Adult Low Dose Aspirin EC] 81 mg PO DAILY 04/21/22 04/29/24 History HYDROcodone/APAP 5-325MG [[place] 1 tab PO TID 05/21/23 04/29/24 History 5-325] Bumetanide [BUMEX] 1 mg PO DAILY 90 Days #90 tab 05/26/23 04/29/24 Rx Azelastine HCl [Astelin Nasal 2 sprays NASAL BID 09/26/23 04/29/24 History [place]] Pantoprazole [Protonix] 40 mg PO BID 09/26/23 04/29/24 History Dicyclomine [Bentyl] 10 mg PO TID 04/03/24 04/29/24 History Gabapentin 300 mg PO TID 04/03/24 04/29/24 History INSULIN LISPRO (humaLOG) [humaLOG] See Protocol SQ AC-TID 04/03/24 04/29/24 History Insulin Glargine,Hum.rec.anlog 30 units SQ HS 04/03/24 04/29/24 History [Lantus Solostar Pen] Budesonide [Pulmicort] 0.5 mg INHALATION RT-BID 30 Days 04/08/24 04/29/24 Rx #60 ml Dapagliflozin Propanediol [Farxiga] 10 mg PO DAILY 30 Days #30 tab 04/08/24 04/29/24 Rx Ipratropium-Albuterol Nebulize 3 ml INHALATION RT-QID 30 Days 04/08/24 04/29/24 Rx [Duoneb 0.5 mg-3 mg/3 ml Soln] #120 each Loratadine [Claritin] 10 mg PO DAILY tab 04/08/24 04/29/24 Rx Acetaminophen Tab [Tylenol] 650 mg PO Q4HR PRN tab 04/16/24 04/29/24 Rx Clopidogrel [Plavix] 75 mg PO DAILY #30 tab 04/16/24 04/29/24 Rx Ezetimibe [Zetia] 10 mg PO DAILY #30 tab 04/16/24 04/29/24 Rx Metoprolol Tartrate [Lopressor] 25 mg PO BID #60 tab 04/16/24 04/29/24 Rx amLODIPine [Norvasc] 2.5 mg PO DAILY@1200 #30 tab 04/16/24 04/29/24 Rx Amiodarone [Cordarone] 200 mg PO DAILY 04/21/24 04/29/24 History Sennosides-Docusate Sodium 2 tab PO HS PRN 04/21/24 04/29/24 History [Senokot-S] Allergies Allergy/AdvReac Type Severity Reaction Status Date / Time Iodinated Contrast Media Allergy Severe Anaphylaxis Verified 04/29/24 14:00 [Iodinated Contrast Media - IV Dye] shellfish derived [Shellfish] Allergy Severe Anaphylaxis Verified 04/29/24 14:00 iodine Allergy Anaphylaxis Verified 04/29/24 14:00 Sqcuhqa-TPI-XvL Reductase Allergy Anaphylaxis Verified 04/29/24 14:00 Inhibitor [Ghvzqbp-Jsh-Iql Reductase Inhibitor] Physical Examination - Vital Signs Vital Signs: Vital Signs Temp Pulse Pulse Resp BP BP Pulse Ox 04/30/24 11:24 80 04/30/24 11:16 84 04/30/24 08:07 88 04/30/24 07:50 82 96 04/30/24 07:00 98.2 F 88 16 154/78 100 04/30/24 01:34 97.8 F 72 18 130/70 97 04/30/24 01:26 69 18 04/29/24 23:26 97.9 F 69 18 132/76 97 04/29/24 23:03 68 16 121/85 95 04/29/24 22:47 67 17 108/57 95 04/29/24 20:45 75 18 141/70 94 L 04/29/24 19:35 98.3 F 80 16 134/99 96 04/29/24 19:04 79 18 132/73 95 04/29/24 18:59 78 04/29/24 18:49 75 04/29/24 17:32 74 18 128/94 94 L 04/29/24 15:20 98.6 F 74 18 103/61 96 Intake and Output 04/29/24 04/30/24 04/30/24 22:59 06:59 14:59 Intake Total 118 Output Total 200 Balance -200 118 Intake: Oral 118 Output: Urine 200 Other: Voiding Method External Catheter External Catheter Weight 86.046 kg General: Lying in bed and is not in acute process. Lung: Is coughing and seems short of breath. Neuro: Limited. Patient is drowsy but is awake both to voice. Is oriented to self she correctly stated that she is in the hospital and stated the current year appropriately but stated the month was March. Is following simple commands. No aphasia. The pupils are round equal reactive to light. Visual rowe are full to confrontation. Extraocular movement is intact and no nystagmus. No patient sensation to touch. No facial weakness. No dysarthria. Tongue is midline moves [id number] without any difficulty. Motor the strength is limited but is lifting all extremities above gravity equally. Sensation is normal to touch Reflexes is 2 positive. Plantars are mute. Results - Laboratory Findings CBC and BMP: 04/29/24 13:52 04/29/24 12:52 Abnormal Lab Findings: Abnormal Labs 04/29/24 04/29/24 04/29/24 12:52 12:52 12:52 RBC Hgb Hct RDW ABG pO2 ABG O2 Saturation Hemoglobin Chloride 111 H Carbon Dioxide 21 L Creatinine 1.25 H Glucose 116 H POC Glucose (mg/dL) Total Protein 6.1 L Urine Protein Trace H Urine Glucose (UA) 4+ H Urine Ketones 1+ H Urine Opiates Screen Detected H U Benzodiazepines Scrn Detected H 04/29/24 04/29/24 04/29/24 12:52 13:23 13:52 RBC 2.89 L Hgb 8.5 L Hct 27.3 L RDW 15.6 H ABG pO2 51 L* ABG O2 Saturation 87.3 L Hemoglobin 8.2 L Chloride Carbon Dioxide Creatinine Glucose POC Glucose (mg/dL) 125 H Total Protein Urine Protein Urine Glucose (UA) Urine Ketones Urine Opiates Screen U Benzodiazepines Scrn 04/29/24 21:01 RBC Hgb Hct RDW ABG pO2 ABG O2 Saturation Hemoglobin Chloride Carbon Dioxide Creatinine Glucose POC Glucose (mg/dL) 192 H Total Protein Urine Protein Urine Glucose (UA) Urine Ketones Urine Opiates Screen U Benzodiazepines Scrn Assessment and Plan Assessment: This is a 68-year-old woman who recently had a recent CABG and since then has been confused and has been having hallucination and also has short of breath of breath. She is hypoxic but white blood cell is normal and she is afebrile. Altered mental status seems due to hypoxic encephalopathy as well as metabolic encephalopathy. So there is a concern for pneumonia. CT of the head is negative for any acute or subacute stroke Pneumonia Recent CABG Chronic kidney insufficiency History of coronary artery disease Diabetes mellitus Hypertension Plan: MRI of the brain is ordered by the primary team I ordered a routine EEG, ammonia level, vitamin B12 and folate. Patient had a recent TSH was normal so therefore I would not get a repeat TSH Infection disease is consulted concern of pneumonia Cardiology team is consulted Will defer the rest of the medical management to primary and other specialist Discussed with the patient's nurse. Thank you for the consultation peer Time with Patient: Greater than 30
[2024-04-30] MEDS: LORazepam 1 MG TAB PO STA (15:10)
[2024-04-30] MEDS: IRON PS CMPLX/VIT B12/FA 1 EACH CAP PO SCH (15:10)
[2024-04-30] MEDS: amLODIPine 2.5 MG TAB PO SCH (15:10)
--- NOTE | 2024-04-30 16:25 | MR ---
MRI brain without contrast HISTORY: Altered mental status. COMPARISON: None. TECHNIQUE: Multiecho multiplanar images of the brain were obtained without contrast. On the T1-weighted sagittal images, the midline structures including the craniovertebral junction rel ationships are normal. The ventricles, basal cisterns and sulci over convexities are within normal limits for the patient's age and there is no mass effect or shift of the midline structures. No abnormal signal intensity is s een throughout the brain parenchyma with the exception of a few small focal areas of abnormal increas ed signal intensity in the white matter posterior diameters. This is nonspecific finding most likely represents chronic ischemic white matter change. On the diffusion-weighted images there is no diffusi on restriction or acute ischemic event. On the susceptibility weighted images, there is no microhemorrhage. The intraorbital contents are normal and symmetric. The visualized paranasal sinuses are well aerated . IMPRESSION: No significant abnormality seen. [facility], Workstation: [id number] 04/30/2024 4:22 PM
--- NOTE | 2024-04-30 17:01 | P.GSCN ---
History of Present Illness Consult date: 04/30/24 Reason for Consult: Post coronary artery bypass grafting surgery Requesting physician: Adrian Fajardo History of present illness: This is a 68-year-old female patient who follows with Dr. Tavo Lisa for her internal medicine care service as an outpatient. She has a past medical history significant for coronary artery disease with left main disease, recent non- STEMI, subsequently underwent a two-vessel off-pump coronary artery bypass grafting surgery by Dr. Mojica on April 12, 2024, history of hypertension, history of hyperlipidemia, with history of anaphylactic reaction to statins, insulin-dependent diabetes mellitus uncontrolled as an outpatient as her hemoglobin A1c was recently 8.5%, history of lower extremity DVT, asthma, COPD on home oxygen 2-3 L nasal cannula, chronic kidney disease, chronic left foot drop after back surgery, and chronic pain with chronic narcotic dependency. The patient presented to the emergency department here at [facility] yesterday April 29, 2024 with mental status changes seeing hallucinations and speaking to people who were not there. The patient is unable to give me a history at this time, and her history has been obtained from her daughter Amita present at her bedside. Amita reports that her mother was found on her bedroom floor yesterday confused and talking to people who were not there. She states she has not had a recent fever, chills, nausea, vomiting, diarrhea, headache, chest pain/pressure, visual disturbances, presyncope or syn cope. The patient's daughter states she has had some episodes of shortness of breath although reports she has chronic shortness of breath. The patient has not been using her CPAP machine at home as it his been not working properly. The patient is currently obtunded and is snoring with talking. An MRI of her brain was completed today which showed no significant abnormality seen. A chest x-ray was completed yesterday which shows a left lower lobe infiltrate. A CT scan of her brain without contrast was completed yesterday which showed no acute intracranial process. For further evaluation a CT scan of her chest without contrast was completed which showed a left basilar pleural effusion, and scattered infiltrates. Laboratory results showed a WBC count of 8.2, hemoglobin 8.5, hematocrit 27.3, platelets 433, PT 11.9, INR 1.1, PTT 30.0, sodium 141, potassium 3.6, chloride 111, CO2 21, BUN 16, creatinine 1.25, glucose 116, ALT 15 and AST 22. Blood gas completed yesterday showed a pH is 7.43, pCO2 35, pO2 51, HCO3 23, oxygen saturation 87.3, base excess -1.1. Due to the patient being known to the cardiothoracic surgery service and undergoing a coronary artery bypass grafting surgery on April 12, 2024 a consult was placed to Dr. Can Mojica for further evaluation and treatment recommendations. Review of Systems A review of systems was completed was negative except as mentioned in the HPI. Past Medical History Past Medical History: Asthma, Coronary Artery Disease (CAD), Chest Pain / Angina, COPD, Diabetes Mellitus, Deep Vein Thrombosis (DVT), GERD/Reflux, Hyperlipidemia, Hypertension, Myocardial Infarction ([place]), Musculoskeletal Disorder, Osteoarthritis (OA), Renal Disease, Sleep Apnea/CPAP/BIPAP Additional Past Medical History / Comment(s): PUD, colitis, benign colon polyps, DVT L leg, migraines, ANDREW - uses cpap. kidney stones, CKD stage II, vertigo, recurrent L ear infections/ruptured eardrum, TMJ, mild CAD, back prob - NT Lt arm, leg. Edema BLE. covid + 01/19/2021; left foot drop Last Myocardial Infarction Date:: 2009 History of Any Multi-Drug Resistant Organisms: None Reported Past Surgical History: Appendectomy, Cholecystectomy, Ear Surgery, Heart Catheterization, Hysterectomy, Joint Replacement, Orthopedic Surgery, Tonsillectomy Additional Past Surgical History / Comment(s): R/L knee arthroscopies, L ear patch/graft, EGD, colonoscopy/polypectomy, throat abscess. Right knee replacement, back surgery, Past Anesthesia/Blood Transfusion Reactions: Postoperative Nausea & Vomiting (PONV) Past Psychological History: Anxiety Additional Psychological History / Comment(s): Spouse has cancer Smoking Status: Never smoker Past Alcohol Use History: None Reported Past Drug Use History: None Reported - Past Family History Sister(s) History Unknown: Yes Family Medical History: Cancer Father History Unknown: Yes Family Medical History: Cancer Additional Family Medical History / Comment(s): Throat and brain cancer. Father was an alcoholic. Mother History Unknown: Yes Family Medical History: Liver Disease Additional Family Medical History / Comment(s): Mother is . She was an alcoholic. Medications and Allergies Home Medications Medication Instructions Recorded Confirmed Type Montelukast [Singulair] 10 mg PO HS 10/17/20 04/29/24 History Aspirin [Adult Low Dose Aspirin EC] 81 mg PO DAILY 04/21/22 04/29/24 History HYDROcodone/APAP 5-325MG [[place] 1 tab PO TID 05/21/23 04/29/24 History 5-325] Bumetanide [BUMEX] 1 mg PO DAILY 90 Days #90 tab 05/26/23 04/29/24 Rx Azelastine HCl [Astelin Nasal 2 sprays NASAL BID 09/26/23 04/29/24 History [place]] Pantoprazole [Protonix] 40 mg PO BID 09/26/23 04/29/24 History Dicyclomine [Bentyl] 10 mg PO TID 04/03/24 04/29/24 History Gabapentin 300 mg PO TID 04/03/24 04/29/24 History INSULIN LISPRO (humaLOG) [humaLOG] See Protocol SQ AC-TID 04/03/24 04/29/24 History Insulin Glargine,Hum.rec.anlog 30 units SQ HS 04/03/24 04/29/24 History [Lantus Solostar Pen] Budesonide [Pulmicort] 0.5 mg INHALATION RT-BID 30 Days 04/08/24 04/29/24 Rx #60 ml Dapagliflozin Propanediol [Farxiga] 10 mg PO DAILY 30 Days #30 tab 04/08/24 04/29/24 Rx Ipratropium-Albuterol Nebulize 3 ml INHALATION RT-QID 30 Days 04/08/24 04/29/24 Rx [Duoneb 0.5 mg-3 mg/3 ml Soln] #120 each Loratadine [Claritin] 10 mg PO DAILY tab 04/08/24 04/29/24 Rx Acetaminophen Tab [Tylenol] 650 mg PO Q4HR PRN tab 04/16/24 04/29/24 Rx Clopidogrel [Plavix] 75 mg PO DAILY #30 tab 04/16/24 04/29/24 Rx Ezetimibe [Zetia] 10 mg PO DAILY #30 tab 04/16/24 04/29/24 Rx Metoprolol Tartrate [Lopressor] 25 mg PO BID #60 tab 04/16/24 04/29/24 Rx amLODIPine [Norvasc] 2.5 mg PO DAILY@1200 #30 tab 04/16/24 04/29/24 Rx Amiodarone [Cordarone] 200 mg PO DAILY 04/21/24 04/29/24 History Sennosides-Docusate Sodium 2 tab PO HS PRN 04/21/24 04/29/24 History [Senokot-S] Allergies Allergy/AdvReac Type Severity Reaction Status Date / Time Iodinated Contrast Media Allergy Severe Anaphylaxis Verified 04/29/24 14:00 [Iodinated Contrast Media - IV Dye] shellfish derived [Shellfish] Allergy Severe Anaphylaxis Verified 04/29/24 14:00 iodine Allergy Anaphylaxis Verified 04/29/24 14:00 Gggptyb-LEX-KzA Reductase Allergy Anaphylaxis Verified 04/29/24 14:00 Inhibitor [Hbjhfct-Thb-Eba Reductase Inhibitor] Surgical - Exam Vital Signs Temp Pulse Resp BP Pulse Ox 98.8 F 69 20 121/78 91 L 04/29/24 12:15 04/29/24 12:15 04/29/24 12:15 04/29/24 12:15 04/29/24 12:15 - General well developed, well nourished, no distress, no pain, chronically ill, obese - Eyes PERRL, normal ocular movement, no pale, no icteric - ENT normal pinna, normal nares, normal mucosa, no hearing loss, poor retirement - Neck Neck is supple, no lymphadenopathy. no masses, no bruits, trachea midline, no venous distension - Respiratory Lung sounds essentially clear throughout, diminished to her bilateral bases, left greater than right. No wheezes, rhonchi or crackles. Respirations are symmetrical and nonlabored. Oxygen saturation is 96% on 2 L nasal cannula - Cardiovascular Lung sounds essentially clear throughout, diminished to her bilateral bases. No wheezes, rhonchi or crackles. Respirations are symmetrical and nonlabored. Oxygen saturation is 96% on 2 L nasal cannula - Abdomen Abdomen is soft, nontender and nondistended. Active bowel sounds present all 4 abdominal quadrants. No guarding or rigidity. No organomegaly appreciated. - Genitourinary Deferred - Rectum Deferred - Integumentary Skin is warm and dry. No clubbing or cyanosis is present. Midline sternal incision is clean, dry and approximated. No drainage or redness is present. Left radial artery harvest sites clean, dry and intact. No redness or drainage present. no rash, no growths, no abnormal pigmentation - Neurologic Motor the strength is limited but is lifting all extremities above gravity equally. Sensation is normal to touch. The patient is drowsy and snoring with talking - Musculoskeletal Motor the strength is limited but is lifting all extremities above gravity equally. Sensation is normal to touch - Psychiatric oriented to person Results - Labs 04/29/24 13:52 04/29/24 12:52 Abnormal Lab Results - Last 24 Hours (Table) 04/29/24 Range/Units 21:01 POC Glucose (mg/dL) 192 H (70-110) mg/dL - Imaging CT scan - abdomen: report reviewed CT scan - chest: report reviewed Assessment and Plan Assessment: Altered mental status, possibly secondary to hypoxic encephalopathy Coronary artery disease with left main disease, non-STEMI this admission Paroxysmal atrial fibrillation, known common occurrence after open heart surgery, currently sinus History of mild nonobstructive coronary artery disease in the LAD from heart cath in 2019 Hypertension Hyperlipidemia with anaphylactic reaction to statins, cholesterol 225, LDL 155 Insulin-dependent diabetes, uncontrolled hyperglycemia with hemoglobin A1c 8.5% History of left lower extremity DVT Asthma/COPD, patient is on home oxygen 2 to 3 L nasal cannula Lifelong non-smoker, preoperative FEV1 97% of predicted Obstructive sleep apnea with home CPAP use Chronic kidney disease Left foot drop after back surgery Chronic pain with chronic narcotic dependence Plan: The patient was seen and examined at her bedside on the 6 floor cardiac observation unit. Her chart and diagnostics were reviewed. Her case was discussed in detail with Dr. Can Mojica from cardiothoracic surgery. The patient's daughter is currently at her bedside and reports this is the way she has been for the last 24 to 48 hours. Neurology is following patient. MRI of the brain is negative for any acute process. Encouraged to use incentive spirometry 10 times every hour while awake. Continue to use heart hugger. Medical management other comorbidities per internal medicine, and neurology service. More recommendations to follow based on patient's clinical course. Continue to monitor optimize medical management with aspirin, Zetia, Plavix and beta-arlene. Thank you for this consult and we look forward to working with you in the care of this patient. I have personally seen and examined the patient, performed the documentation and the assessment and plan as written. Number of minutes spent on the visit: 30. JOSIAH Olivier
--- NOTE | 2024-04-30 17:21 | P.CRDCN ---
History of Present Illness Consult date: 04/30/24 History of present illness: HISTORY OF PRESENTING ILLNESS 68-year-old female recently underwent two-vessel off-pump CABG on April 12, 2024. She has history of hypertension, dyslipidemia, anaphylactic reactions to statin, type 2 diabetes which was uncontrolled,. Patient is unable to provide history and most of the history is obtained from the patient's medical chart. As per the patient's daughter, patient was found in the bedroom floor yesterday confused, talking to people who were not there. She states she has not had any recent fever, chills. Patient's daughter states that she had some episode of shortness of breath although reports that this was somewhat not new for her as she is always short of breath. She does report that she has not been using her CPAP as it has not been working appropriately. Her CT scan chest showed scattered infiltrates. Labs shows hemoglobin 8.2. ECG shows sinus rhythm with left bundle branch block REVIEW OF SYSTEMS Could not be obtained because patient is confused PHYSICAL EXAMINATION Lungs: Mild crackles audible in the lungs, diminished air entry because of poor inspiratory effort Heart: Surgical scar is healing well, regular pulses, no significant murmurs appreciated Abdomen: Soft nontender, positive bowel sounds. Extremities: 1+ pitting edema bilateral lower extremity Neuro: Alert but confused, not oriented to time place or person. Detailed neuro exam was not performed. ASSESSMENT Hallucinations and metabolic encephalopathy, likely multifactorial Acute on chronic hypoxic respiratory failure Mild HFpEF exacerbation Suspect pneumonia CAD status post CABG x2 March 2024 Paroxysmal atrial fibrillation, currently in sinus rhythm CKD History of left lower extremity DVT Type 2 diabetes, insulin-dependent Essential hypertension Dyslipidemia Anemia PLAN Continue aspirin, Plavix Discontinue Bumex. Start Lasix 40 mg IV twice daily Farxiga 10mg, Zetia 10, metoprolol tartrate 25 mg twice daily, amlodipine 2.5 g daily Iron and b12 supplements Obtain limited echocardiogram Consider neurology consult for hallucination evaluation. Could be related to Neurontin. Help with polypharmacy and ruling out concerns of CVA recent CABG surgery. Mike Rios MD, FACC, RPVI Past Medical History Past Medical History: Asthma, Coronary Artery Disease (CAD), Chest Pain / Angina, COPD, Diabetes Mellitus, Deep Vein Thrombosis (DVT), GERD/Reflux, Hyperlipidemia, Hypertension, Myocardial Infarction ([place]), Musculoskeletal Disorder, Osteoarthritis (OA), Renal Disease, Sleep Apnea/CPAP/BIPAP Additional Past Medical History / Comment(s): PUD, colitis, benign colon polyps, DVT L leg, migraines, ANDREW - uses cpap. kidney stones, CKD stage II, vertigo, recurrent L ear infections/ruptured eardrum, TMJ, mild CAD, back prob - NT Lt arm, leg. Edema BLE. covid + 01/19/2021; left foot drop Last Myocardial Infarction Date:: 2009 History of Any Multi-Drug Resistant Organisms: None Reported Past Surgical History: Appendectomy, Cholecystectomy, Ear Surgery, Heart Catheterization, Hysterectomy, Joint Replacement, Orthopedic Surgery, Tonsillectomy Additional Past Surgical History / Comment(s): R/L knee arthroscopies, L ear patch/graft, EGD, colonoscopy/polypectomy, throat abscess. Right knee replacement, back surgery, Past Anesthesia/Blood Transfusion Reactions: Postoperative Nausea & Vomiting (PONV) Past Psychological History: Anxiety Additional Psychological History / Comment(s): Spouse has cancer Smoking Status: Never smoker Past Alcohol Use History: None Reported Past Drug Use History: None Reported - Past Family History Sister(s) History Unknown: Yes Family Medical History: Cancer Father History Unknown: Yes Family Medical History: Cancer Additional Family Medical History / Comment(s): Throat and brain cancer. Father was an alcoholic. Mother History Unknown: Yes Family Medical History: Liver Disease Additional Family Medical History / Comment(s): Mother is . She was an alcoholic. Medications and Allergies Home Medications Medication Instructions Recorded Confirmed Type Montelukast [Singulair] 10 mg PO HS 10/17/20 04/29/24 History Aspirin [Adult Low Dose Aspirin EC] 81 mg PO DAILY 04/21/22 04/29/24 History HYDROcodone/APAP 5-325MG [[place] 1 tab PO TID 05/21/23 04/29/24 History 5-325] Bumetanide [BUMEX] 1 mg PO DAILY 90 Days #90 tab 05/26/23 04/29/24 Rx Azelastine HCl [Astelin Nasal 2 sprays NASAL BID 09/26/23 04/29/24 History [place]] Pantoprazole [Protonix] 40 mg PO BID 09/26/23 04/29/24 History Dicyclomine [Bentyl] 10 mg PO TID 04/03/24 04/29/24 History Gabapentin 300 mg PO TID 04/03/24 04/29/24 History INSULIN LISPRO (humaLOG) [humaLOG] See Protocol SQ AC-TID 04/03/24 04/29/24 History Insulin Glargine,Hum.rec.anlog 30 units SQ HS 04/03/24 04/29/24 History [Lantus Solostar Pen] Budesonide [Pulmicort] 0.5 mg INHALATION RT-BID 30 Days 04/08/24 04/29/24 Rx #60 ml Dapagliflozin Propanediol [Farxiga] 10 mg PO DAILY 30 Days #30 tab 04/08/24 04/29/24 Rx Ipratropium-Albuterol Nebulize 3 ml INHALATION RT-QID 30 Days 04/08/24 04/29/24 Rx [Duoneb 0.5 mg-3 mg/3 ml Soln] #120 each Loratadine [Claritin] 10 mg PO DAILY tab 04/08/24 04/29/24 Rx Acetaminophen Tab [Tylenol] 650 mg PO Q4HR PRN tab 04/16/24 04/29/24 Rx Clopidogrel [Plavix] 75 mg PO DAILY #30 tab 04/16/24 04/29/24 Rx Ezetimibe [Zetia] 10 mg PO DAILY #30 tab 04/16/24 04/29/24 Rx Metoprolol Tartrate [Lopressor] 25 mg PO BID #60 tab 04/16/24 04/29/24 Rx amLODIPine [Norvasc] 2.5 mg PO DAILY@1200 #30 tab 04/16/24 04/29/24 Rx Amiodarone [Cordarone] 200 mg PO DAILY 04/21/24 04/29/24 History Sennosides-Docusate Sodium 2 tab PO HS PRN 04/21/24 04/29/24 History [Senokot-S] Allergies Allergy/AdvReac Type Severity Reaction Status Date / Time Iodinated Contrast Media Allergy Severe Anaphylaxis Verified 04/29/24 14:00 [Iodinated Contrast Media - IV Dye] shellfish derived [Shellfish] Allergy Severe Anaphylaxis Verified 04/29/24 14:00 iodine Allergy Anaphylaxis Verified 04/29/24 14:00 Urafoxs-QUX-MrK Reductase Allergy Anaphylaxis Verified 04/29/24 14:00 Inhibitor [Pbputry-Hvs-Tbc Reductase Inhibitor] Physical Exam Vitals: Vital Signs Temp Pulse Pulse Resp BP BP Pulse Ox 04/30/24 15:50 98.3 F 85 17 132/70 94 L 04/30/24 11:24 80 04/30/24 11:16 84 04/30/24 08:07 88 04/30/24 07:50 82 96 04/30/24 07:00 98.2 F 88 16 154/78 100 04/30/24 01:34 97.8 F 72 18 130/70 97 04/30/24 01:26 69 18 04/29/24 23:26 97.9 F 69 18 132/76 97 04/29/24 23:03 68 16 121/85 95 04/29/24 22:47 67 17 108/57 95 04/29/24 20:45 75 18 141/70 94 L 04/29/24 19:35 98.3 F 80 16 134/99 96 04/29/24 19:04 79 18 132/73 95 04/29/24 18:59 78 04/29/24 18:49 75 04/29/24 17:32 74 18 128/94 94 L Intake and Output 04/30/24 04/30/24 04/30/24 06:59 14:59 22:59 Intake Total 118 Output Total 200 Balance -200 118 Intake: Oral 118 Output: Urine 200 Other: Voiding Method External Catheter External Catheter Results 04/29/24 13:52 04/29/24 12:52 Current Medications Generic Name Dose Route Start Last Admin Trade Name Freq PRN Reason Stop Dose Admin Acetaminophen 650 mg 04/29/24 14:53 Acetaminophen Tab 325 Mg Tab PO Q4HR PRN Fever And/ Or Mild Pain (1-3) Hydrocodone Bitart/Acetaminophen 1 each 04/29/24 16:00 04/30/24 15:11 Hydrocodone/Apap 5-325mg 1 Each Tab PO Not Given TID AMPARO Albuterol/Ipratropium 3 ml 04/29/24 16:00 04/30/24 15:41 Ipratropium-Albuterol 3 Ml Neb INHALATION Not Given RT-QID AMPARO Amiodarone HCl 200 mg 04/30/24 09:00 04/30/24 09:42 Amiodarone 200 Mg Tab PO 200 mg DAILY AMPARO Administration Amlodipine Besylate 2.5 mg 04/30/24 12:00 04/30/24 15:10 Amlodipine 2.5 Mg Tab PO 2.5 mg DAILY@1200 AMPARO Administration Aspirin 81 mg 04/30/24 09:00 04/30/24 09:40 Aspirin 81 Mg PO 81 mg DAILY AMPARO Administration Azelastine HCl 2 spray 04/29/24 21:00 04/30/24 10:00 Azelastine 137mcg/[place] NASAL 2 spray BID AMPARO Administration Azithromycin 500 mg 04/30/24 09:00 04/30/24 10:00 Azithromycin 500 Mg Tab PO 05/01/24 09:01 500 mg DAILY AMPARO Administration Protocol Budesonide 0.5 mg 04/29/24 20:00 04/30/24 07:47 Budesonide 0.5 Mg/2 Ml Nebu INHALATION 0.5 mg RT-BID AMPARO Administration Clopidogrel Bisulfate 75 mg 04/30/24 09:00 04/30/24 09:42 Clopidogrel 75 Mg Tab PO 75 mg DAILY AMPARO Administration Dapagliflozin 10 mg 04/30/24 09:00 04/30/24 09:41 Dapagliflozin Propanediol 10 Mg Tablet PO 10 mg DAILY AMPARO Administration Dicyclomine HCl 10 mg 04/29/24 16:00 04/30/24 15:10 Dicyclomine 10 Mg Cap PO 10 mg TID AMPARO Administration Ezetimibe 10 mg 04/30/24 09:00 04/30/24 09:43 Ezetimibe 10 Mg Tab PO 10 mg DAILY AMPARO Administration Furosemide 40 mg 04/30/24 18:00 Furosemide 10 Mg/Ml 4 Ml Vial IV Q12HR [facility] Ceftriaxone Sodium 2 gm/ 50 mls @ 100 mls/hr 04/30/24 09:00 04/30/24 09:36 Sodium Chloride IVPB 05/03/24 09:29 100 mls/hr Q24HR AMPARO Administration Protocol Insulin Detemir 30 unit 04/29/24 21:00 04/29/24 21:01 Insulin Detemir (Levemir) 100 Unit/Ml Syr SQ 30 unit HS AMPARO Administration Loratadine 10 mg 04/30/24 09:00 04/30/24 09:40 Loratadine 10 Mg Tab PO 10 mg DAILY AMPARO Administration Metoprolol Tartrate 25 mg 04/29/24 21:00 04/30/24 09:42 Metoprolol Tartrate 25 Mg Tab PO 25 mg BID AMPARO Administration Miscellaneous Information 1 each 04/29/24 14:51 Pneumonia Protocol Utilized 1 Each Misc PO ONCE PRN Per Protocol Montelukast Sodium 10 mg 04/29/24 21:00 04/29/24 20:14 Montelukast 10 Mg Tab PO 10 mg HS AMPARO Administration Pantoprazole Sodium 40 mg 04/29/24 21:00 04/30/24 09:41 Pantoprazole 40 Mg Tablet PO 40 mg BID AMPARO Administration Polysaccharide Iron Complex 1 each 04/30/24 12:00 04/30/24 15:10 Iron Ps Cmplx/Vit B12/Fa 1 Each Cap PO 1 each DAILY AMPARO Administration Senna/Docusate Sodium 2 each 04/29/24 14:53 Sennosides-Docusate Sodium 1 Each Tab PO HS PRN Constipation Intake and Output 04/30/24 04/30/24 04/30/24 06:59 14:59 22:59 Intake Total 118 Output Total 200 Balance -200 118 Intake: Oral 118 Output: Urine 200 Other: Voiding Method External Catheter External Catheter 04/29/24 13:52 04/29/24 12:52
[2024-04-30] MEDS ORDERED: AZITHROMYCIN 500 MG in SODIUM CHLORIDE 0.9% 250 ML IVPB SCH (19:00)
[2024-04-30] MEDS: methylPREDNISolone SOD SUCCI 40 MG/ML 1 ML VIAL IV SCH (20:07)
[2024-04-30] MEDS: FUROSEMIDE 10 MG/ML 4 ML VIAL IV SCH (20:08)
[2024-04-30 20:09] LABS: Glucose,Whole Blood 111 mg/dL (70-110)
[2024-04-30 20:50] LABS: ABG Base Excess -2.8 mmol/L; ABG HCO3 21 mmol/L (21-25); ABG Oxygen Saturation 92.8 % (94-97); ABG PCO2 34 mmHg (35-45); ABG PH 7.41 (7.35-7.45); ABG PO2 63 mmHg (83-108); ABG TCO2 22 mmol/L (19-24); Allen Test Performed? Yes
--- NOTE | 2024-04-30 22:22 | P.CONS ---
History of Present Illness - Reason for Consult Consult date: 04/30/24 Nosocomial pneumonia Requesting physician: Terry Powers - Chief Complaint Hallucination x few days - History of Present Illness Patient is a 68-year-old female with a past medical history significant for coronary artery disease COPD diabetes mellitus DVT hypertension hyperlipidemia NV presenting to the hospital for evaluation of hallucination apparently the patient recently did have coronary bypass grafting on 04/12/2024 stabilized subsequent discharged home patient will be brought back to the hospital with hallucination on arrival to the ER the patient was afebrile patient was nontachycardic hypotensive she was hypoxic with O2 sats of 91% on room air and is currently on supplemental oxygen patient did have a white count of 8.2 creatinine is 1.25 liver enzymes are normal urine has been negative urine drug screen was positive for benzo opiates patient did have a chest x-ray left lower lobe infiltrate also have a CT of the chest left basilar effusion karen eduled. It could reflect acute inflammatory process correlate clinically patient was started on ceftriaxone and Zithromax infectious was consulted concerning for possible nosocomial pneumonia most information has been extracted from review the chart as the patient also have an elevated good historian Review of Systems Positive points has been mentioned in HPI complete review could not be obtained because of his underlying mental status Past Medical History Past Medical History: Asthma, Coronary Artery Disease (CAD), Chest Pain / Angina, COPD, Diabetes Mellitus, Deep Vein Thrombosis (DVT), GERD/Reflux, Hyperlipidemia, Hypertension, Myocardial Infarction (NV), Musculoskeletal Disorder, Osteoarthritis (OA), Renal Disease, Sleep Apnea/CPAP/BIPAP Additional Past Medical History / Comment(s): PUD, colitis, benign colon polyps, DVT L leg, migraines, ANDREW - uses cpap. kidney stones, CKD stage II, vertigo, recurrent L ear infections/ruptured eardrum, TMJ, mild CAD, back prob - NT Lt arm, leg. Edema BLE. covid + 01/19/2021; left foot drop Last Myocardial Infarction Date:: 2009 History of Any Multi-Drug Resistant Organisms: None Reported Past Surgical History: Appendectomy, Cholecystectomy, Ear Surgery, Heart Catheterization, Hysterectomy, Joint Replacement, Orthopedic Surgery, Tonsillectomy Additional Past Surgical History / Comment(s): R/L knee arthroscopies, L ear patch/graft, EGD, colonoscopy/polypectomy, throat abscess. Right knee replacement, back surgery, Past Anesthesia/Blood Transfusion Reactions: Postoperative Nausea & Vomiting (PONV) Past Psychological History: Anxiety Additional Psychological History / Comment(s): Spouse has cancer Smoking Status: Never smoker Past Alcohol Use History: None Reported Past Drug Use History: None Reported - Past Family History Sister(s) History Unknown: Yes Family Medical History: Cancer Father History Unknown: Yes Family Medical History: Cancer Additional Family Medical History / Comment(s): Throat and brain cancer. Father was an alcoholic. Mother History Unknown: Yes Family Medical History: Liver Disease Additional Family Medical History / Comment(s): Mother is . She was an alcoholic. Medications and Allergies Home Medications Medication Instructions Recorded Confirmed Type Montelukast [Singulair] 10 mg PO HS 10/17/20 04/29/24 History Aspirin [Adult Low Dose Aspirin EC] 81 mg PO DAILY 04/21/22 04/29/24 History HYDROcodone/APAP 5-325MG [Bulan 1 tab PO TID 05/21/23 04/29/24 History 5-325] Bumetanide [BUMEX] 1 mg PO DAILY 90 Days #90 tab 05/26/23 04/29/24 Rx Azelastine HCl [Astelin Nasal 2 sprays NASAL BID 09/26/23 04/29/24 History [place]] Pantoprazole [Protonix] 40 mg PO BID 09/26/23 04/29/24 History Dicyclomine [Bentyl] 10 mg PO TID 04/03/24 04/29/24 History Gabapentin 300 mg PO TID 04/03/24 04/29/24 History INSULIN LISPRO (humaLOG) [humaLOG] See Protocol SQ AC-TID 04/03/24 04/29/24 History Insulin Glargine,Hum.rec.anlog 30 units SQ HS 04/03/24 04/29/24 History [Lantus Solostar Pen] Budesonide [Pulmicort] 0.5 mg INHALATION RT-BID 30 Days 04/08/24 04/29/24 Rx #60 ml Dapagliflozin Propanediol [Farxiga] 10 mg PO DAILY 30 Days #30 tab 04/08/24 04/29/24 Rx Ipratropium-Albuterol Nebulize 3 ml INHALATION RT-QID 30 Days 04/08/24 04/29/24 Rx [Duoneb 0.5 mg-3 mg/3 ml Soln] #120 each Loratadine [Claritin] 10 mg PO DAILY tab 04/08/24 04/29/24 Rx Acetaminophen Tab [Tylenol] 650 mg PO Q4HR PRN tab 04/16/24 04/29/24 Rx Clopidogrel [Plavix] 75 mg PO DAILY #30 tab 04/16/24 04/29/24 Rx Ezetimibe [Zetia] 10 mg PO DAILY #30 tab 04/16/24 04/29/24 Rx Metoprolol Tartrate [Lopressor] 25 mg PO BID #60 tab 04/16/24 04/29/24 Rx amLODIPine [Norvasc] 2.5 mg PO DAILY@1200 #30 tab 04/16/24 04/29/24 Rx Amiodarone [Cordarone] 200 mg PO DAILY 04/21/24 04/29/24 History Sennosides-Docusate Sodium 2 tab PO HS PRN 04/21/24 04/29/24 History [Senokot-S] Allergies Allergy/AdvReac Type Severity Reaction Status Date / Time Iodinated Contrast Media Allergy Severe Anaphylaxis Verified 04/29/24 14:00 [Iodinated Contrast Media - IV Dye] shellfish derived [Shellfish] Allergy Severe Anaphylaxis Verified 04/29/24 14:00 iodine Allergy Anaphylaxis Verified 04/29/24 14:00 Msqcomm-WTS-BxY Reductase Allergy Anaphylaxis Verified 04/29/24 14:00 Inhibitor [Mjqyivs-Nem-Ooy Reductase Inhibitor] Physical Exam Vitals: Vital Signs Temp Pulse Pulse Resp BP BP Pulse Ox 04/30/24 11:24 80 04/30/24 11:16 84 04/30/24 08:07 88 04/30/24 07:50 82 96 04/30/24 07:00 98.2 F 88 16 154/78 100 04/30/24 01:34 97.8 F 72 18 130/70 97 04/30/24 01:26 69 18 04/29/24 23:26 97.9 F 69 18 132/76 97 04/29/24 23:03 68 16 121/85 95 04/29/24 22:47 67 17 108/57 95 04/29/24 20:45 75 18 141/70 94 L 04/29/24 19:35 98.3 F 80 16 134/99 96 04/29/24 19:04 79 18 132/73 95 04/29/24 18:59 78 04/29/24 18:49 75 04/29/24 17:32 74 18 128/94 94 L 04/29/24 15:20 98.6 F 74 18 103/61 96 04/29/24 13:49 70 20 116/74 96 04/29/24 12:49 67 18 100/50 96 Intake and Output 04/29/24 04/30/24 04/30/24 22:59 06:59 14:59 Intake Total 118 Output Total 200 Balance -200 118 Intake: Oral 118 Output: Urine 200 Other: Voiding Method External Catheter Weight 86.046 kg GENERAL DESCRIPTION: Elderly female lying in bed, no distress. No tachypnea or accessory muscle of respiration use. HEENT: Shows Pallor , no scleral icterus. Oral mucous membrane is dry. NECK: Trachea central, no thyromegaly. LUNGS: Unlabored breathing. Decreased breath sound the base HEART: S1, S2, regular rate and rhythm. No loud murmur ABDOMEN: Soft, no tenderness , guarding or rigidity, no organomegaly EXTREMITIES: No edema of feet. SKIN: No rash, no masses palpable. NEUROLOGICAL: The patient is pleasantly confused orientation could not determine Results CBC & Chem 7: 04/29/24 13:52 04/29/24 12:52 Labs: Abnormal Lab Results - Last 24 Hours (Table) 04/29/24 04/29/24 04/29/24 Range/Units 12:52 12:52 12:52 RBC (3.80-5.40) m/uL Hgb (11.4-16.0) gm/dL Hct (34.0-46.0) % RDW (11.5-15.5) % ABG pO2 (83-108) mmHg ABG O2 Saturation (94-97) % Hemoglobin (11.4-16.0) gm/dL Chloride 111 H (98-107) mmol/L Carbon Dioxide 21 L (22-30) mmol/L Creatinine 1.25 H (0.52-1.04) mg/dL Glucose 116 H (74-99) mg/dL POC Glucose (mg/dL) (70-110) mg/dL Total Protein 6.1 L (6.3-8.2) g/dL Urine Protein Trace H (Negative) Urine Glucose (UA) 4+ H (Negative) Urine Ketones 1+ H (Negative) Urine Opiates Screen Detected H (NotDetected) U Benzodiazepines Scrn Detected H (NotDetected) 04/29/24 04/29/24 04/29/24 Range/Units 12:52 13:23 13:52 RBC 2.89 L (3.80-5.40) m/uL Hgb 8.5 L (11.4-16.0) gm/dL Hct 27.3 L (34.0-46.0) % RDW 15.6 H (11.5-15.5) % ABG pO2 51 L* (83-108) mmHg ABG O2 Saturation 87.3 L (94-97) % Hemoglobin 8.2 L (11.4-16.0) gm/dL Chloride (98-107) mmol/L Carbon Dioxide (22-30) mmol/L Creatinine (0.52-1.04) mg/dL Glucose (74-99) mg/dL POC Glucose (mg/dL) 125 H (70-110) mg/dL Total Protein (6.3-8.2) g/dL Urine Protein (Negative) Urine Glucose (UA) (Negative) Urine Ketones (Negative) Urine Opiates Screen (NotDetected) U Benzodiazepines Scrn (NotDetected) 04/29/24 Range/Units 21:01 RBC (3.80-5.40) m/uL Hgb (11.4-16.0) gm/dL Hct (34.0-46.0) % RDW (11.5-15.5) % ABG pO2 (83-108) mmHg ABG O2 Saturation (94-97) % Hemoglobin (11.4-16.0) gm/dL Chloride (98-107) mmol/L Carbon Dioxide (22-30) mmol/L Creatinine (0.52-1.04) mg/dL Glucose (74-99) mg/dL POC Glucose (mg/dL) 192 H (70-110) mg/dL Total Protein (6.3-8.2) g/dL Urine Protein (Negative) Urine Glucose (UA) (Negative) Urine Ketones (Negative) Urine Opiates Screen (NotDetected) U Benzodiazepines Scrn (NotDetected) Assessment and Plan (1) Nosocomial pneumonia Current Visit: Yes Status: Acute Code(s): J18.9 - PNEUMONIA, UNSPECIFIED ORGANISM; Y95 - NOSOCOMIAL CONDITION SNOMED Code(s): 592586169 Plan: 1patient presented to hospital with hallucination and this patient who recently did have coronary bypass grafting on April 12, 2024 now also having some cough with left lower lobe infiltrate concerning for pneumonia questionably gram- negative/aspiration as the patient has been recently in the hospital and need to cover for more resistant gram-negative pathogen than the community-acquired pathogen. 2we will try to obtain sputum for Gram stain culture check a CRP and procalcitonin level. 3discontinue Rocephin and Zithromax. 4start the patient on Zosyn 3.375 g every 8 hours We will follow on clinical condition and cultures to further adjust medication if needed Thank you for this consultation we will follow the patient along with you Dictation was produced using [employer] dictation software. please excuse any grammatical, word or spelling errors. Time with Patient: Greater than 30
[2024-04-30] MEDS: ACETAMINOPHEN TAB 325 MG TAB PO PRN (22:44)
[2024-05-01] MEDS: PIPERACILLIN-TAZOBACTAM 3.375 GM in SODIUM CHLORIDE 0.9% 100 ML IVPB SCH (00:56)
--- NOTE | 2024-05-01 04:32 | HP ---
HISTORY AND PHYSICAL HISTORY OF PRESENT ILLNESS: A 68-year-old white female, came to the hospital, status post coronary artery disease, left main disease, status post recent coronary artery bypass grafting as well as a valve replacement. She has end-stage COPD oxygen levels. Dr. Mojica was consulted at this time due to recent cardiac bypass grafting with some serosanguineous drainage from the chest. PAST MEDICAL HISTORY: Asthma, COPD, coronary artery disease, diabetes mellitus, DVT, dyslipidemia, myocardial infarction, CPAP, sleep apnea, chronic kidney disease stage 2, coronary artery disease. PAST SURGICAL HISTORY: Colonoscopy, polypectomy, throat abscess, left ear, bilateral knee arthroscopies, right knee replacement, back surgery. FAMILY HISTORY: Father has cancer, stone in brain. Mother liver disease. HOME MEDICATIONS: See list. ALLERGIES: See list. PHYSICAL EXAMINATION: VITAL SIGNS: Temp 98.8, pulse 69, respiratory rate 18 to 20, blood pressure 120s over 80s, O2 saturation 96% on 2 L. HEENT: Normocephalic, atraumatic. She is obese. Pupils equal, round, and reactive. NECK: Supple. No mass. LUNGS: Show scattered wheeze and rhonchi. Decreased breath sounds x4. , CARDIOVASCULAR: She has mid chest lesion, vertical sternal lesion. CHEST: No wheezes, or rhonchi. ABDOMEN: Soft. Midsternal incision is clean, dry, and approximated. No redness or drainage. Hemoglobin is 11.5, white count 8.2, BUN 16, creatinine 1.25. She has altered mental status secondary to hypoxemic encephalopathy. coronary artery disease or left main disease, paroxysm atrial fibrillation, insulin-dependent diabetes mellitus, DVT as well as COPD, lifelong smoker, obstructive sleep apnea, chronic kidney disease, left footdrop, chronic back pain. Dr. Mojica saw her for the recent cardiac surgery. MRI of the brain is negative. Medical management. Continue current treatment with aspirin, Zetia, Plavix, beta arlene. Cardiology surgeon consult also. MMODL / IJN: [id number] /
[2024-05-01 06:06] LABS: Glucose,Whole Blood 140 mg/dL (70-110)
--- NOTE | 2024-05-01 08:50 | XR ---
EXAMINATION TYPE: XR chest 1V portable DATE OF EXAM: 05/01/2024 CLINICAL HISTORY: Shortness of breath TECHNIQUE: Single frontal view of the chest is obtained. COMPARISON: 04/30/2024 FINDINGS: Airspace consolidation right upper lobe as well as patchy left perihilar infiltrate compati ble with pneumonia. The cardiac silhouette size is within normal limits. The osseous structures are intact. IMPRESSION: Airspace consolidation right upper lobe as well as patchy left perihilar infiltrate comp atible with pneumonia. [facility], , 05/01/2024 8:48 AM
[2024-05-01] MEDS ORDERED: AZITHROMYCIN 500 MG in SODIUM CHLORIDE 0.9% 250 ML IVPB SCH (09:00)
[2024-05-01 09:05] LABS: ALT 14 U/L (8-44); AST 18 U/L (13-35); Albumin 3.6 g/dL (3.8-4.9); Albumin/Globulin Ratio 1.44 Ratio (1.60-3.17); Alkaline Phosphatase 90 U/L (41-126); Blood Urea Nitrogen 20.8 mg/dL (9.0-27.0); Calcium 8.9 mg/dL (8.7-10.3); Carbon Dioxide 19.8 mmol/L (21.6-31.8); Chloride 107 mmol/L (96-109); Globulin 2.5 g/dL (1.6-3.3); Glucose 132 mg/dL (70-110); Potassium 3.9 mmol/L (3.5-5.5); Sodium 144 mmol/L (135-145); Total Bilirubin 0.5 mg/dL (0.3-1.2); Total Protein 6.1 g/dL (6.2-8.2)
[2024-05-01 10:21] LABS: Basophils # (A) 0.01 X 10*3/uL (0.00-0.10); Basophils % (A) 0.1 %; Eosinophils # (A) 0 X 10*3/uL (0.04-0.35); Eosinophils % (A) 0 %; HCT 27.8 % (37.2-46.3); HGB 8.2 g/dL (12.0-15.0); Lymphocytes # (A) 0.36 X 10*3/uL (0.90-5.00); Lymphocytes % (A) 4.7 %; MCH 29.1 pg (27.0-32.0); MCHC 29.5 g/dL (32.0-37.0); MCV 98.6 FL (80.0-97.0); Mean Platelet Volume 10.2 FL (9.5-12.2); Monocytes # (A) 0.14 X 10*3/uL (0.20-1.00); Monocytes % (A) 1.8 %; NRBC Per 100 WBC 0 X 10*3/uL (0.00-0.01); Neutrophils # (A) 7.12 X 10*3/uL (1.80-7.70); Neutrophils % (A) 92.7 %; Platelet Count 520 X 10*3/uL (140-440); RBC 2.82 X 10*6/uL (4.10-5.20); RDW 15.5 % (11.5-14.5); WBC 7.68 X 10*3/uL (4.50-10.00)
--- NOTE | 2024-05-01 10:39 | P.PN ---
Subjective Progress Note Date: 05/01/24 Principal diagnosis: Altered mental status, post coronary artery bypass grafting surgery April 12, 2024. Past medical history significant for coronary artery disease with left m ain disease, recent non-STEMI, subsequently underwent a two-vessel off-pump coronary artery bypass grafting surgery by Dr. Mojica on April 12, 2024, history of hypertension, history of hyperlipidemia, history of anaphylactic reaction to statins, insulin-dependent diabetes mellitus uncontrolled as an outpatient as her hemoglobin A1c was recently 8.5%, history of lower extremity DVT, asthma, COPD on home oxygen 2-3 L nasal cannula, chronic kidney disease, obstructive sleep apnea with home CPAP use, chronic left foot drop after back surgery, and chronic pain with chronic narcotic dependency. The patient was seen and examined in follow-up today May 01, 2024 at her bedside on the third floor cardiac stepdown unit. The patient is currently laying in bed with her head elevated, is on BiPAP with settings 14/7, rate of 10 and 40% FiO2. According to the patient's bedside nurse, if she comes off BiPAP she desaturates her oxygen fairly quickly into the 80s. Oxygen saturations are 96% on current BiPAP settings. The patient is more alert today and answering questions more appropriately and is oriented x 3. She has been afebrile in the last 24 hours. She is receiving Zosyn IV piggyback ordered by infectious disease and she was started on Solu-Medrol 40 mg IV every [address] Lisa. Remote telemetry is showing normal sinus rhythm heart rate 83 bpm. She continues on low-dose aspirin, Zetia, Lasix 40 mg IV every 12 hours, and metoprolol to tartrate 25 mg p.o. twice daily. She remains hemodynamically stable and is currently on no inotropic or pressor support. Chest x-ray results reviewed laboratory results remain pending. Objective - Vital Signs Vital signs: Vital Signs Temp 98.3 F 05/01/24 03:15 Pulse 84 05/01/24 08:12 Resp 24 05/01/24 03:15 BP 105/69 05/01/24 03:15 Pulse Ox 96 05/01/24 03:15 FiO2 40 05/01/24 07:57 Intake & Output 04/30/24 05/01/24 05/01/24 18:59 06:59 18:59 Intake Total 118 Output Total 200 Balance 118 -200 Weight 93 kg Intake: Oral 118 Output: Urine 200 Other: Voiding Method External Catheter External Catheter # Voids 1 # Bowel Movements 1 - Exam CONSTITUTIONAL: appears restless, no apparent acute distress. HEENT: Neck is supple, no JVD, no lymphadenopathy. RESPIRATORY: Lungs sounds essentially diminished throughout. Respirations are symmetrical and nonlabored with BiPAP support. Currently on BiPAP with settings 14/7, rate of 10, FiO2 40% with oxygen saturations 96%. Strong cough. CARDIOVASCULAR: Regular rhythm and rate. S1 and S2 present, negative for S3, gallop or murmur. Sternum is stable. Palpable peripheral pulses bilaterally. No calf pain or tenderness noted. Heart hugger in place. Knee-high MARYANN hose and sequential compression devices in place to her bilateral lower extremities. GASTROINTESTINAL: Abdomen soft, nontender, nondistended. Active bowel sounds present 4 quadrants. No guarding or rigidity. GENITOURINARY: Pure wick external catheter draining clear, yellow urine. Urine output 200 mL in the last 8 hours. INTEGUMENTARY: Skin is warm and dry with no evidence of clubbing or cyanosis. Midline sternal incision clean dry and well approximated, covered with dry intact dressing. NEUROLOGIC: Following commands. PERRLA. Chronic dropfoot, left foot. MUSKULOSKELETAL: Able to move all extremities, strength equal bilaterally, generalized weakness. PSYCHIATRIC: Alert and oriented to person place and time, appropriate affect. Periods of confusion. - Allied health notes Allied health notes reviewed: nursing - Labs CBC & Chem 7: 04/29/24 13:52 05/01/24 05:35 Labs: Abnormal Lab Results - Last 24 Hours (Table) 04/30/24 04/30/24 05/01/24 Range/Units 20:05 20:30 05:35 ABG pCO2 34 L (35-45) mmHg ABG pO2 63 L (83-108) mmHg ABG O2 Saturation 92.8 L (94-97) % Hemoglobin 8.0 L (11.4-16.0) gm/dL Carbon Dioxide 19.8 L (21.6-31.8) mmol/L Anion Gap 17.20 H (4.00-12.00) mmol/L Creatinine 1.6 H (0.6-1.5) mg/dL Est GFR (CKD-EPI) 35 L (>=60) Glucose 132 H (70-110) mg/dL POC Glucose (mg/dL) 111 H (70-110) mg/dL Total Protein 6.1 L (6.2-8.2) g/dL Albumin 3.6 L (3.8-4.9) g/dL Albumin/Globulin Ratio 1.44 L (1.60-3.17) Ratio 05/01/24 Range/Units 06:04 ABG pCO2 (35-45) mmHg ABG pO2 (83-108) mmHg ABG O2 Saturation (94-97) % Hemoglobin (11.4-16.0) gm/dL Carbon Dioxide (21.6-31.8) mmol/L Anion Gap (4.00-12.00) mmol/L Creatinine (0.6-1.5) mg/dL Est GFR (CKD-EPI) (>=60) Glucose (70-110) mg/dL POC Glucose (mg/dL) 140 H (70-110) mg/dL Total Protein (6.2-8.2) g/dL Albumin (3.8-4.9) g/dL Albumin/Globulin Ratio (1.60-3.17) Ratio Microbiology - Last 24 Hours (Table) 04/29/24 16:06 Blood Culture - Preliminary Blood - Imaging and Cardiology Chest x-ray: report reviewed, image reviewed Assessment and Plan Assessment: Altered mental status, possibly secondary to hypoxic encephalopathy Coronary artery disease with left main disease, status post two-vessel coronary artery bypass grafting surgery on April 12, 2024 History of non-STEMI History of recent paroxysmal atrial fibrillation, on amiodarone History of mild nonobstructive coronary artery disease in the LAD from heart cath in 2019 Hypertension Hyperlipidemia with anaphylactic reaction to statins, cholesterol 225, LDL 155 Insulin-dependent diabetes, uncontrolled hyperglycemia with recent hemoglobin A1c 8.5% History of left lower extremity DVT Asthma/COPD, patient is on home oxygen 2 to 3 L nasal cannula Lifelong non-smoker, preoperative FEV1 97% of predicted Obstructive sleep apnea with home CPAP use Chronic kidney disease Left foot drop after back surgery Chronic pain with chronic narcotic dependence Plan: Encourage use of incentive spirometry 10 times every hour while awake. Oxygen management and BiPAP management per Dr. Powers's recommendations. Knee-high MARYANN hose and sequential compression devices for DVT prophylaxis. Antibiotic management per infectious disease recommendations. Continue to maximize medical management with aspirin, Zetia, Plavix and beta- arlene. Continue to hold statin as contraindicated due to the patient's history of anaphylactic reaction to statins. Medical management other comorbidities per internal medicine recommendations. Neurology following for altered mental status. Increase activity as tolerated. Out of bed for all meals. Physical and Occupational Therapy have been consulted. Pain control per current as needed orders, discontinue [place] until patient mental status has improved. Continue heart hugger in place, encourage use of heart hugger. More recommendations to follow based on patient's clinical course. Time with Patient: Greater than 30
[2024-05-01 11:32] LABS: Glucose,Whole Blood 139 mg/dL (70-110)
--- NOTE | 2024-05-01 12:12 | CA ---
Transthoracic Echo Report Name: Shalonda Smalls Age: 68 Gender: F : 1955 Exam Date: 05/01/2024 07:48 Exam Location: [place] [facility] Ht (in): 60 Wt (lb): 189 Ordering Physician: Mike Rios MD ([id number]) Attending/Referring Phys: [employer] [facility] Technician Reina Reno, RUBEN Procedure CPT: Indications: s/p CABG, acute CHFexacerbation Cardiac Hx: Technical Quality: Fair Contrast 1: Total Dose (mL): Contrast 2: Total Dose (mL): MEASUREMENTS (Male / Female) Normal Values 2D ECHO RV Internal Dim ED PLAX 3.8 cm LV Diastolic Volume MOD 4C 77.5 cm??? LV Systolic Volume MOD 4C 19.3 cm??? LV Ejection Fraction MOD 4C 75.1 % LV Cardiac Index MOD 4C 2447.7 cm???/min???m??? LV Diastolic Length 4C 6.8 cm LV Systolic Length 4C 5.3 cm DOPPLER AV Peak Velocity 209.1 cm/s AV Peak Gradient 17.5 mmHg TR Peak Velocity 281.7 cm/s TR Peak Gradient 31.7 mmHg Right Ventricular Systolic Press 48.0 mmHg FINDINGS Left Ventricle Left ventricular ejection fraction is estimated at 60-65 %. Normal left ventricular wall motion. Right Ventricle Moderate right ventricular dilatation. Moderate pulmonary hypertension. Right ventricular systolic pressure estimated at 48 mm hg. Right Atrium Moderate right atrial dilatation. No right atrial thrombus or mass seen. Left Atrium Normal left atrial size. Mitral Valve Mitral valve thickened. Moderate mitral regurgitation. Aortic Valve Thickened aortic valve without stenosis. Tricuspid Valve Structurally normal tricuspid valve. Severe tricuspid regurgitation. Pulmonic Valve Pulmonic valve not well visualized. Pericardium No pericardial or pleural effusion. Aorta Normal size aortic root and proximal ascending aorta. CONCLUSIONS LVEF 55 to 60% No obvious regional wall motion abnormality Moderate RV dilatation with reduced systolic function. Moderate pulmonary hypertension with RVSP 48 mmHg Moderate RA dilatation Moderate mitral regurgitation Moderate to severe tricuspid regurgitation Previewed by: Dr Mike Rios (Electronically Signed) Final Date: 01 May 2024 12:12
--- NOTE | 2024-05-01 13:53 | P.PN ---
Subjective Progress Note Date: 05/01/24 Principal diagnosis: Reason for follow-up is aspiration pneumonia Patient is a 68-year-old female with a past medical history significant for coronary artery disease COPD diabetes mellitus DVT hypertension hyperlipidemia MS presenting to the hospital for evaluation of hallucination apparently the patient recently did have coronary bypass grafting on 04/12/2024, patient did have a CT of the chest with evidence of left basilar effusion/elevated concerning for possible nosocomial/aspiration pneumonia. On today's evaluation that is 05/01/2024, the patient continues to be afebrile, the patient did have worsening of respiratory status for the patient be transferred to the cardiac unit and is currently on a BiPAP patient slightly more awake not a very good historian though no vomiting diarrhea or any other changes reported by the nursing staff. Patient white count 7.68 creatinine is 1.6 chest x-ray from this morning showing right upper lobe infiltrate blood cultures are pending Objective - Vital Signs Vital signs: Vital Signs Temp 97.6 F 05/01/24 08:00 Pulse 84 05/01/24 11:30 Resp 24 05/01/24 08:00 BP 131/67 05/01/24 08:00 Pulse Ox 99 05/01/24 08:00 FiO2 40 05/01/24 11:15 Intake & Output 04/30/24 05/01/24 05/01/24 18:59 06:59 18:59 Intake Total 118 Output Total 200 250 Balance 118 -200 -250 Weight 93 kg Intake: Oral 118 Output: Urine 200 250 Other: Voiding Method External Catheter External Catheter External Catheter # Voids 1 # Bowel Movements 1 - Exam GENERAL DESCRIPTION: An elderly female lying in bed in no distress RESPIRATORY SYSTEM: Unlabored breathing , coarse breath sounds bilaterally HEART: S1 S2 regular rate and rhythm , ABDOMEN: Soft , no tenderness EXTREMITIES: No edema feet - Labs CBC & Chem 7: 05/01/24 05:35 05/01/24 05:35 Labs: Abnormal Lab Results - Last 24 Hours (Table) 04/30/24 04/30/24 05/01/24 Range/Units 20:05 20:30 05:35 RBC 2.82 L (4.10-5.20) X 10*6/uL Hgb 8.2 L (12.0-15.0) g/dL Hct 27.8 L (37.2-46.3) % MCV 98.6 H (80.0-97.0) FL MCHC 29.5 L (32.0-37.0) g/dL RDW 15.5 H (11.5-14.5) % Plt Count 520 H (140-440) X 10*3/uL Immature Gran # 0.05 H (0.00-0.04) X 10*3/uL Lymphocytes # 0.36 L (0.90-5.00) X 10*3/uL Monocytes # 0.14 L (0.20-1.00) X 10*3/uL Eosinophils # 0 L (0.04-0.35) X 10*3/uL ABG pCO2 34 L (35-45) mmHg ABG pO2 63 L (83-108) mmHg ABG O2 Saturation 92.8 L (94-97) % Hemoglobin 8.0 L (11.4-16.0) gm/dL Carbon Dioxide (21.6-31.8) mmol/L Anion Gap (4.00-12.00) mmol/L Creatinine (0.6-1.5) mg/dL Est GFR (CKD-EPI) (>=60) Glucose (70-110) mg/dL POC Glucose (mg/dL) 111 H (70-110) mg/dL Total Protein (6.2-8.2) g/dL Albumin (3.8-4.9) g/dL Albumin/Globulin Ratio (1.60-3.17) Ratio 05/01/24 05/01/24 05/01/24 Range/Units 05:35 06:04 11:30 RBC (4.10-5.20) X 10*6/uL Hgb (12.0-15.0) g/dL Hct (37.2-46.3) % MCV (80.0-97.0) FL MCHC (32.0-37.0) g/dL RDW (11.5-14.5) % Plt Count (140-440) X 10*3/uL Immature Gran # (0.00-0.04) X 10*3/uL Lymphocytes # (0.90-5.00) X 10*3/uL Monocytes # (0.20-1.00) X 10*3/uL Eosinophils # (0.04-0.35) X 10*3/uL ABG pCO2 (35-45) mmHg ABG pO2 (83-108) mmHg ABG O2 Saturation (94-97) % Hemoglobin (11.4-16.0) gm/dL Carbon Dioxide 19.8 L (21.6-31.8) mmol/L Anion Gap 17.20 H (4.00-12.00) mmol/L Creatinine 1.6 H (0.6-1.5) mg/dL Est GFR (CKD-EPI) 35 L (>=60) Glucose 132 H (70-110) mg/dL POC Glucose (mg/dL) 140 H 139 H (70-110) mg/dL Total Protein 6.1 L (6.2-8.2) g/dL Albumin 3.6 L (3.8-4.9) g/dL Albumin/Globulin Ratio 1.44 L (1.60-3.17) Ratio Microbiology - Last 24 Hours (Table) 04/29/24 16:06 Blood Culture - Preliminary Blood Assessment and Plan (1) Nosocomial pneumonia Current Visit: Yes Status: Acute Code(s): J18.9 - PNEUMONIA, UNSPECIFIED ORGANISM; Y95 - NOSOCOMIAL CONDITION SNOMED Code(s): 612326362 Plan: 1patient presented to hospital with hallucination and this patient who recently did have coronary bypass grafting on April 12, 2024 now also having some cough with left lower lobe infiltrate concerning for pneumonia questionably gram-negative/aspiration as the patient has been recently in the hospital and need to cover for more resistant gram-negative pathogen than the community- acquired pathogen. 2patient did have worsening of her respiratory status chest x-ray showing right upper lobe infiltrate highly suspicious for aspiration pneumonia 3try to obtain a sputum continue Zosyn Discussed with the CT surgery SITE INSPECTOR Dictation was produced using [employer] dictation software. please excuse any grammatical, word or spelling errors. Time with Patient: Less than 30
--- NOTE | 2024-05-01 14:31 | P.PN ---
Subjective Progress Note Date: 05/01/24 HISTORY OF PRESENTING ILLNESS 68-year-old female recently underwent two-vessel off-pump CABG on April 12, 2024. She has history of hypertension, dyslipidemia, anaphylactic reactions to statin, type 2 diabetes which was uncontrolled,. Patient is unable to provide history and most of the history is obtained from the patient's medical chart. As per the patient's daughter, patient was found in the bedroom floor yesterday confused, talking to people who were not there. She states she has not had any recent fever, chills. Patient's daughter states that she had some episode of shortness of breath although reports that this was somewhat not new for her as she is always short of breath. She does report that she has not been using her CPAP as it has not been working appropriately. Her CT scan chest showed scattered infiltrates. Labs shows hemoglobin 8.2. ECG shows sinus rhythm with left bundle branch block 05/01/24 Patient is seen and examined. She has a safety physician at the bedside. She is currently off BiPAP and sleeping and snoring. Blood pressure 131/67, heart rate 89, pulse ox 99%. Repeat blood work reveals hemoglobin 8.2. BUN 20 and creatinine 1.6. Yesterday, patient was started on IV Lasix. Patient has had minimal documented output. Limited echocardiogram reveals EF 55 to 60%, no obvious regional wall motion abnormalities. Moderate RV dilatation with reduced systolic function. Moderate pulmonary hypertension with RVSP 48 mmHg. Moderate RA dilatation. Moderate mitral regurgitation, moderate to severe tricuspid regurgitation. PHYSICAL EXAMINATION Lungs: Mild crackles audible in the lungs, diminished air entry because of poor inspiratory effort Heart: Surgical scar is healing well, regular pulses, no significant murmurs appreciated Abdomen: Soft nontender, positive bowel sounds. Extremities: 1+ pitting edema bilateral lower extremity Neuro: Sleeping, confused, not oriented to time place or person. Detailed neuro exam was not performed. ASSESSMENT Hallucinations and metabolic encephalopathy, likely multifactorial Acute on chronic hypoxic respiratory failure Mild HFpEF exacerbation Pneumonia CAD status post CABG x2 March 2024 Paroxysmal atrial fibrillation, currently in sinus rhythm CKD History of left lower extremity DVT Type 2 diabetes, insulin-dependent Essential hypertension Dyslipidemia Anemia PLAN Continue aspirin, Plavix Discontinue IV Lasix and resume patient on oral Bumex 1 mg daily Continue Farxiga 10mg, Zetia 10, metoprolol tartrate 25 mg twice daily, amlodipine 2.5 g daily Iron and b12 supplements Consider neurology consult for hallucination evaluation. Could be related to Neurontin. Help with polypharmacy and ruling out concerns of CVA recent CABG surgery. Objective - Vital Signs Vital signs: Vital Signs Temp 97.6 F 05/01/24 08:00 Pulse 84 05/01/24 11:30 Resp 24 05/01/24 08:00 BP 131/67 05/01/24 08:00 Pulse Ox 99 05/01/24 08:00 FiO2 40 05/01/24 11:15 Intake & Output 04/30/24 05/01/24 05/01/24 18:59 06:59 18:59 Intake Total 118 Output Total 200 250 Balance 118 -200 -250 Weight 93 kg Intake: Oral 118 Output: Urine 200 250 Other: Voiding Method External Catheter External Catheter External Catheter # Voids 1 # Bowel Movements 1 - Labs CBC & Chem 7: 05/01/24 05:35 05/01/24 05:35 Labs: Abnormal Lab Results - Last 24 Hours (Table) 04/30/24 04/30/24 05/01/24 Range/Units 20:05 20:30 05:35 RBC 2.82 L (4.10-5.20) X 10*6/uL Hgb 8.2 L (12.0-15.0) g/dL Hct 27.8 L (37.2-46.3) % MCV 98.6 H (80.0-97.0) FL MCHC 29.5 L (32.0-37.0) g/dL RDW 15.5 H (11.5-14.5) % Plt Count 520 H (140-440) X 10*3/uL Immature Gran # 0.05 H (0.00-0.04) X 10*3/uL Lymphocytes # 0.36 L (0.90-5.00) X 10*3/uL Monocytes # 0.14 L (0.20-1.00) X 10*3/uL Eosinophils # 0 L (0.04-0.35) X 10*3/uL ABG pCO2 34 L (35-45) mmHg ABG pO2 63 L (83-108) mmHg ABG O2 Saturation 92.8 L (94-97) % Hemoglobin 8.0 L (11.4-16.0) gm/dL Carbon Dioxide (21.6-31.8) mmol/L Anion Gap (4.00-12.00) mmol/L Creatinine (0.6-1.5) mg/dL Est GFR (CKD-EPI) (>=60) Glucose (70-110) mg/dL POC Glucose (mg/dL) 111 H (70-110) mg/dL Total Protein (6.2-8.2) g/dL Albumin (3.8-4.9) g/dL Albumin/Globulin Ratio (1.60-3.17) Ratio 05/01/24 05/01/24 05/01/24 Range/Units 05:35 06:04 11:30 RBC (4.10-5.20) X 10*6/uL Hgb (12.0-15.0) g/dL Hct (37.2-46.3) % MCV (80.0-97.0) FL MCHC (32.0-37.0) g/dL RDW (11.5-14.5) % Plt Count (140-440) X 10*3/uL Immature Gran # (0.00-0.04) X 10*3/uL Lymphocytes # (0.90-5.00) X 10*3/uL Monocytes # (0.20-1.00) X 10*3/uL Eosinophils # (0.04-0.35) X 10*3/uL ABG pCO2 (35-45) mmHg ABG pO2 (83-108) mmHg ABG O2 Saturation (94-97) % Hemoglobin (11.4-16.0) gm/dL Carbon Dioxide 19.8 L (21.6-31.8) mmol/L Anion Gap 17.20 H (4.00-12.00) mmol/L Creatinine 1.6 H (0.6-1.5) mg/dL Est GFR (CKD-EPI) 35 L (>=60) Glucose 132 H (70-110) mg/dL POC Glucose (mg/dL) 140 H 139 H (70-110) mg/dL Total Protein 6.1 L (6.2-8.2) g/dL Albumin 3.6 L (3.8-4.9) g/dL Albumin/Globulin Ratio 1.44 L (1.60-3.17) Ratio Microbiology - Last 24 Hours (Table) 04/29/24 16:06 Blood Culture - Preliminary Blood
[2024-05-01 16:40] LABS: Glucose,Whole Blood 243 mg/dL (70-110)
[2024-05-01 20:02] LABS: Glucose,Whole Blood 221 mg/dL (70-110)
[2024-05-02 06:15] LABS: Glucose,Whole Blood 135 mg/dL (70-110)
--- NOTE | 2024-05-02 07:55 | XR ---
EXAMINATION TYPE: XR chest 1V portable DATE OF EXAM: 05/02/2024 CLINICAL HISTORY: Shortness of breath TECHNIQUE: Single frontal view of the chest is obtained. COMPARISON: 05/01/2024 FINDINGS: Improved infiltrate primarily within the right upper lobe. The findings could reflect impro ving pneumonia versus improved congestive failure. There is continued mild cardiomegaly. No effusions are noted. Lung volumes are diminished. IMPRESSION: Improved infiltrate primarily within the right upper lobe. The findings could reflect im proving pneumonia versus improved congestive failure. [facility], , 05/02/2024 7:53 AM
[2024-05-02] MEDS: BUMETANIDE 1 MG TAB PO SCH (09:00)
--- NOTE | 2024-05-02 10:27 | P.PN ---
Subjective Progress Note Date: 05/02/24 Principal diagnosis: Altered mental status, post coronary artery bypass grafting surgery April 12, 2024. Past medical history significant for coronary artery disease with left m ain disease, recent non-STEMI, subsequently underwent a two-vessel off-pump coronary artery bypass grafting surgery by Dr. Mojica on April 12, 2024, history of hypertension, history of hyperlipidemia, history of anaphylactic reaction to statins, insulin-dependent diabetes mellitus uncontrolled as an outpatient as her hemoglobin A1c was recently 8.5%, history of lower extremity DVT, asthma, COPD on home oxygen 2-3 L nasal cannula, chronic kidney disease, obstructive sleep apnea with home CPAP use, chronic left foot drop after back surgery, and chronic pain with chronic narcotic dependency. The patient was seen and examined in follow-up today May 02, 2024 at her bedside on the third floor cardiac stepdown unit. She is currently sitting up in bed, is awake, alert, oriented x 3 and is in no acute apparent distress. The patient's mentation is much improved today, and reports that she remembers having hallucinations at home. She reports her CPAP machine was not working properly at home and feels that this is likely the culprit to her mentation change. Oxygen saturations are 97% on 3 L nasal cannula and she is achieving 1250 mL on her incentive spirometry with much encouragement. Remote telemetry is showing normal sinus rhythm heart rate 82 bpm. The patient reports she has been up ambulating with assistance to the bathroom and tolerating well. She states that she is hoping to ambulate more today. The patient is tolerating her breakfast and is feeding herself. Chest x-ray results reviewed, improved infiltrate primarily within the right upper lobe. Laboratory results yesterday showed a normal WBC count of 7.68, hemoglobin of 8.2, hematocrit 27.8, platelets 520, BUN 20.8 and creatinine 1.6. Objective - Vital Signs Vital signs: Vital Signs Temp 99.3 F 05/02/24 04:07 Pulse 75 05/02/24 04:07 Resp 18 05/02/24 04:07 BP 112/67 05/02/24 04:07 Pulse Ox 97 05/02/24 04:07 FiO2 40 05/02/24 03:40 Intake & Output 05/01/24 05/02/24 05/02/24 18:59 06:59 18:59 Intake Total 236 Output Total 500 150 Balance -264 -150 Weight 92.5 kg Intake: Oral 236 Output: Urine 500 150 Other: Voiding Method External Catheter External Catheter # Voids 3 # Bowel Movements 1 - Exam CONSTITUTIONAL: Appears comfortable, cooperative, and in no apparent acute distress. HEENT: Neck is supple, no JVD, no lymphadenopathy. RESPIRATORY: Lungs sounds essentially diminished throughout. Respirations are symmetrical and nonlabored. Currently on 3 L nasal cannula with oxygen saturations 97% and she is achieving 1250 mL on her incentive spirometry with encouragement. Strong cough. CARDIOVASCULAR: Regular rhythm and rate. S1 and S2 present, negative for S3, gallop or murmur. Sternum is stable. Palpable peripheral pulses bilaterally. No calf pain or tenderness noted. Heart hugger in place. Knee-high MARYANN hose and sequential compression devices in place to her bilateral lower extremities. GASTROINTESTINAL: Abdomen soft, nontender, nondistended. Active bowel sounds present 4 quadrants. No guarding or rigidity. GENITOURINARY: Pure wick external catheter draining clear, yellow urine. INTEGUMENTARY: Skin is warm and dry with no evidence of clubbing or cyanosis. Midline sternal incision clean dry and well approximated, covered with dry intact dressing. Left arm radial artery harvest sites clean, dry and intact. No redness or drainage. NEUROLOGIC: Following commands. PERRLA. Chronic dropfoot, left foot. MUSKULOSKELETAL: Able to move all extremities, strength equal bilaterally, generalized weakness. PSYCHIATRIC: Alert and oriented to person place and time, appropriate affect. - Allied health notes Allied health notes reviewed: nursing - Labs CBC & Chem 7: 05/01/24 05:35 05/01/24 05:35 Labs: Abnormal Lab Results - Last 24 Hours (Table) 05/01/24 05/01/24 05/01/24 Range/Units 05:35 05:35 11:30 RBC 2.82 L (4.10-5.20) X 10*6/uL Hgb 8.2 L (12.0-15.0) g/dL Hct 27.8 L (37.2-46.3) % MCV 98.6 H (80.0-97.0) FL MCHC 29.5 L (32.0-37.0) g/dL RDW 15.5 H (11.5-14.5) % Plt Count 520 H (140-440) X 10*3/uL Immature Gran # 0.05 H (0.00-0.04) X 10*3/uL Lymphocytes # 0.36 L (0.90-5.00) X 10*3/uL Monocytes # 0.14 L (0.20-1.00) X 10*3/uL Eosinophils # 0 L (0.04-0.35) X 10*3/uL Carbon Dioxide 19.8 L (21.6-31.8) mmol/L Anion Gap 17.20 H (4.00-12.00) mmol/L Creatinine 1.6 H (0.6-1.5) mg/dL Est GFR (CKD-EPI) 35 L (>=60) Glucose 132 H (70-110) mg/dL POC Glucose (mg/dL) 139 H (70-110) mg/dL Total Protein 6.1 L (6.2-8.2) g/dL Albumin 3.6 L (3.8-4.9) g/dL Albumin/Globulin Ratio 1.44 L (1.60-3.17) Ratio 05/01/24 05/01/24 05/02/24 Range/Units 16:39 20:00 06:12 RBC (4.10-5.20) X 10*6/uL Hgb (12.0-15.0) g/dL Hct (37.2-46.3) % MCV (80.0-97.0) FL MCHC (32.0-37.0) g/dL RDW (11.5-14.5) % Plt Count (140-440) X 10*3/uL Immature Gran # (0.00-0.04) X 10*3/uL Lymphocytes # (0.90-5.00) X 10*3/uL Monocytes # (0.20-1.00) X 10*3/uL Eosinophils # (0.04-0.35) X 10*3/uL Carbon Dioxide (21.6-31.8) mmol/L Anion Gap (4.00-12.00) mmol/L Creatinine (0.6-1.5) mg/dL Est GFR (CKD-EPI) (>=60) Glucose (70-110) mg/dL POC Glucose (mg/dL) 243 H 221 H 135 H (70-110) mg/dL Total Protein (6.2-8.2) g/dL Albumin (3.8-4.9) g/dL Albumin/Globulin Ratio (1.60-3.17) Ratio Microbiology - Last 24 Hours (Table) 04/29/24 16:06 Blood Culture - Preliminary Blood - Imaging and Cardiology Chest x-ray: report reviewed, image reviewed Assessment and Plan Assessment: Altered mental status, possibly secondary to hypoxic encephalopathy, mentation has improved Coronary artery disease with left main disease, status post two-vessel coronary artery bypass grafting surgery on April 12, 2024 History of non-STEMI History of recent paroxysmal atrial fibrillation, on amiodarone History of mild nonobstructive coronary artery disease in the LAD from heart cath in 2019 Hypertension Hyperlipidemia with anaphylactic reaction to statins, cholesterol 225, LDL 155 Insulin-dependent diabetes, uncontrolled hyperglycemia with recent hemoglobin A1c 8.5% History of left lower extremity DVT Asthma/COPD, patient is on home oxygen 2 to 3 L nasal cannula Lifelong non-smoker, preoperative FEV1 97% of predicted Obstructive sleep apnea with home CPAP use Chronic kidney disease Left foot drop after back surgery Chronic pain with chronic narcotic dependence Plan: Encourage use of incentive spirometry 10 times every hour while awake. Oxygen management per pulmonary medicine recommendations. Knee-high MARYANN hose and sequential compression devices for DVT prophylaxis. Antibiotic management per infectious disease recommendations. Continue to maximize medical management with aspirin, Zetia, Plavix and beta- arlene. Continue to hold statin as contraindicated due to the patient's history of anaphylactic reaction to statins. Medical management other comorbidities per internal medicine recommendations. Neurology following for altered mental status. Increase activity as tolerated. Out of bed for all meals. Physical and Occupational Therapy have been following. Encourage use of incentive spirometry 10 times every hour while awake. Shower daily. Pain control per current as needed orders, continue to hold [place]. Continue heart hugger in place, encourage use of heart hugger. More recommendations to follow based on patient's clinical course. Time with Patient: Greater than 30
[2024-05-02 11:19] LABS: Glucose,Whole Blood 189 mg/dL (70-110)
--- NOTE | 2024-05-02 12:26 | P.PN ---
Subjective Progress Note Date: 05/02/24 HISTORY OF PRESENTING ILLNESS 68-year-old female recently underwent two-vessel off-pump CABG on April 12, 2024. She has history of hypertension, dyslipidemia, anaphylactic reactions to statin, type 2 diabetes which was uncontrolled,. Patient is unable to provide history and most of the history is obtained from the patient's medical chart. As per the patient's daughter, patient was found in the bedroom floor yesterday confused, talking to people who were not there. She states she has not had any recent fever, chills. Patient's daughter states that she had some episode of shortness of breath although reports that this was somewhat not new for her as she is always short of breath. She does report that she has not been using her CPAP as it has not been working appropriately. Her CT scan chest showed scattered infiltrates. Labs shows hemoglobin 8.2. ECG shows sinus rhythm with left bundle branch block 05/01/24 Patient is seen and examined. She has a clinical safety specialist at the bedside. She is currently off BiPAP and sleeping and snoring. Blood pressure 131/67, heart rate 89, pulse ox 99%. Repeat blood work reveals hemoglobin 8.2. BUN 20 and creatinine 1.6. Yesterday, patient was started on IV Lasix. Patient has had minimal documented output. Limited echocardiogram reveals EF 55 to 60%, no obvious regional wall motion abnormalities. Moderate RV dilatation with reduced systolic function. Moderate pulmonary hypertension with RVSP 48 mmHg. Moderate RA dilatation. Moderate mitral regurgitation, moderate to severe tricuspid regurgitation. 05/02/2024 Patient is seen today sitting up in her recliner. Her mental status is much improved from yesterday. She states that she has feeling better than yesterday and she is no longer seeing zombies. She still has a clinical safety specialist at the bedside. She is now on O2 at 3 L and she is on O2 at 2 L at home. Blood pressure 145/77, heart rate in the 70s, pulse ox 97% on 3 L nasal cannula. PHYSICAL EXAMINATION Lungs: Mild crackles audible in the lungs, diminished air entry because of poor inspiratory effort Heart: Surgical scar is healing well, regular pulses, no significant murmurs appreciated Abdomen: Soft nontender, positive bowel sounds. Extremities: 1+ pitting edema bilateral lower extremity Neuro: Sleeping, confused, not oriented to time place or person. Detailed neuro exam was not performed. ASSESSMENT Hallucinations and metabolic encephalopathy, likely multifactorial Acute on chronic hypoxic respiratory failure Chronic hypoxic respiratory failure on home O2 at 2 L Mild HFpEF exacerbation Pneumonia CAD status post CABG x2 March 2024 Paroxysmal atrial fibrillation, currently in sinus rhythm CKD History of left lower extremity DVT Type 2 diabetes, insulin-dependent Essential hypertension Dyslipidemia Anemia PLAN Continue amiodarone, aspirin, Plavix Continue patient on oral Bumex 1 mg daily which is her home dose Continue Farxiga 10mg, Zetia 10, metoprolol tartrate 25 mg twice daily, amlodipine 2.5 g daily Iron and b12 supplements Cardiology will sign off this case and follow on an as-needed basis. Please reconsult for any new concerns. Patient may follow-up in the office in one to 2 weeks. Consider neurology consult for hallucination evaluation. Could be related to Neurontin. Help with polypharmacy and ruling out concerns of CVA recent CABG surgery. Objective - Vital Signs Vital signs: Vital Signs Temp 97.3 F L 05/02/24 08:00 Pulse 79 05/02/24 08:00 Resp 18 05/02/24 08:00 BP 145/77 05/02/24 08:00 Pulse Ox 97 05/02/24 08:00 FiO2 40 05/02/24 03:40 Intake & Output 05/01/24 05/02/24 05/02/24 18:59 06:59 18:59 Intake Total 236 222 Output Total 500 150 Balance -264 -150 222 Weight 92.5 kg Intake: Oral 236 222 Output: Urine 500 150 Other: Voiding Method External Catheter External Catheter External Catheter # Voids 3 1 # Bowel Movements 1 1 - Labs CBC & Chem 7: 05/01/24 05:35 05/01/24 05:35 Labs: Abnormal Lab Results - Last 24 Hours (Table) 05/01/24 05/01/24 05/01/24 Range/Units 11:30 16:39 20:00 POC Glucose (mg/dL) 139 H 243 H 221 H (70-110) mg/dL 05/02/24 05/02/24 Range/Units 06:12 11:17 POC Glucose (mg/dL) 135 H 189 H (70-110) mg/dL Microbiology - Last 24 Hours (Table) 04/29/24 16:06 Blood Culture - Preliminary Blood
[2024-05-02 13:16] LABS: African American GFR (CKD) 53 (>60 ml/min/1.73 sqM); Anion Gap 11 mmol/L; Blood Urea Nitrogen 25 mg/dL (7-17); Calcium 9.1 mg/dL (8.4-10.2); Carbon Dioxide 23 mmol/L (22-30); Chloride 108 mmol/L (98-107); Glucose 170 mg/dL (74-99); Non-African American GFR(CKD) 46 (>60 ml/min/1.73 sqM); Potassium 3.4 mmol/L (3.5-5.1); Sodium 142 mmol/L (137-145)
--- NOTE | 2024-05-02 14:34 | P.PN ---
Subjective Progress Note Date: 05/02/24 I am following up with the patient and the patient is accompanied with her daughter and her mentation is drastically better and is back to baseline up with the patient as well as her daughter. Patient stated that her BiPAP machine is defective at home and she needs a new one. Per the daughter she will get a new one once patient is back home she need to call them. Objective - Vital Signs Vital signs: Vital Signs Temp 97.3 F L 05/02/24 08:00 Pulse 78 05/02/24 12:30 Resp 18 05/02/24 14:00 BP 120/68 05/02/24 12:00 Pulse Ox 99 05/02/24 12:22 FiO2 40 05/02/24 03:40 Intake & Output 05/01/24 05/02/24 05/02/24 18:59 06:59 18:59 Intake Total 236 444 Output Total 500 150 Balance -264 -150 444 Weight 92.5 kg Intake: Oral 236 444 Output: Urine 500 150 Other: Voiding Method External Catheter External Catheter External Catheter # Voids 3 1 # Bowel Movements 1 1 - Exam General: Sitting in a recliner chair and is not in acute distress. Neuro: The patient is awake alert oriented to self, place and time. Is on simple co mmands. She correctly named her daughter's name correctly. No aphasia Pupils are round equal reactive to light. Visual rowe are full to confrontation. No facial weakness. No dysarthria Motor: The strength is 5 out of 5 throughout. Some of the workup during this hospital visit consisted of: Pulse ox is as low as 91% at room air. Patient is afebrile. White blood cell is within normal limits. Sodium, calcium, AST ALT is within normal limits. Creatinine is 1.25. Serum glucose is 116. UDS is positive for opiates and benzodiazepine. Serum alcohol is less than 10 ABG: pO2 was 51. B12 is 403 Serum folate is 13.70. Ammonia is [address] head is reported as no acute intracranial process. I personally reviewed the CT and agree with the report. CT chest: Left basilar pleural effusion. The scattered infiltrates could reflect acute inflammatory process. Limited 2D echo is ejection fraction of 55 to 60%. No obvious regional wall motion abnormality. Moderate right ventricular dilation with reduced systolic function. Moderate pulmonary hypertension. Moderate right atrial dilation. Moderate mitral regurgitation. Moderate to severe tricuspid regurgitation. - Labs CBC & Chem 7: 05/01/24 05:35 05/02/24 11:33 Labs: Abnormal Lab Results - Last 24 Hours (Table) 05/01/24 05/01/24 05/02/24 Range/Units 16:39 20:00 06:12 Potassium (3.5-5.1) mmol/L Chloride (98-107) mmol/L BUN (7-17) mg/dL Creatinine (0.52-1.04) mg/dL Glucose (74-99) mg/dL POC Glucose (mg/dL) 243 H 221 H 135 H (70-110) mg/dL 05/02/24 05/02/24 Range/Units 11:17 11:33 Potassium 3.4 L (3.5-5.1) mmol/L Chloride 108 H (98-107) mmol/L BUN 25 H (7-17) mg/dL Creatinine 1.22 H (0.52-1.04) mg/dL Glucose 170 H (74-99) mg/dL POC Glucose (mg/dL) 189 H (70-110) mg/dL Microbiology - Last 24 Hours (Table) 04/29/24 16:06 Blood Culture - Preliminary Blood Assessment and Plan Assessment: This is a 68-year-old woman who recently had a recent CABG and since then has been confused and has been having hallucination and also has short of breath of breath. She is hypoxic but white blood cell is normal and she is afebrile. Altered mental status seems due to hypoxic encephalopathy (states he BiPAP at home is defective) as well as metabolic encephalopathy. There is a concern for pneumonia. CT of the head is negative for any acute or subacute stroke--mentation is improved and is back to baseline. Pneumonia Recent CABG Chronic kidney insufficiency History of coronary artery disease Diabetes mellitus Hypertension Plan: Preliminary EEG is negative for any seizure or discharges. Infection disease is consulted concern of pneumonia Cardiology team is consulted Patient BiPAP at home is defective and according to the daughter when she gets home she needs to call the company and they will she will get a new one. Will defer the rest of the medical management to primary and other specialist Plan discussed with the patient and her daughter was at bedside. There is no further neurological workup. Will sign off. Please reconsult if needed. Time with Patient: Less than 30
--- NOTE | 2024-05-02 14:43 | P.PN ---
Subjective Progress Note Date: 05/02/24 Principal diagnosis: Acute on chronic hypoxic respiratory failure Healthcare associated pneumonia predominantly involving the right upper and lower lobe/aspiration pneumonia Altered mental status confusion with hallucination may very well be associated with Neurontin versus acute stroke Left sided small pleural effusion Acute kidney injury, Hypokalemia Left basilar compressive atelectasis Coronary artery disease status post CABG May 02, 2024, patient seen eval examined during rounds patient on 2 L oxygen breathing comfortably more composed today hallucinations significantly improved mild confusion however is still there, patient remains on supplemental oxygen during the day as well as BiPAP machine 14 over 7 to 40% oxygen at nighttime tolerating well patient has been instructed to keep on using the BiPAP machine and oxygen, also discussed with nursing staff to continue to hold on actually discontinue Neurontin blood cultures no growth 48 hours. Patient remains on DuoNeb along with amiodarone antihypertensive agents also on IV Solu- Medrol every 8 hourly with Zosyn, plan to reduce the Solu-Medrol to every May 01 2024, patient seen eval examined during rounds labs reviewed medications reviewed, patient transferred to monitored bed due to hallucination, currently she is afebrile, heart rate fairly within normal limit however patient is slightly tachypneic has been requiring BiPAP overnight now changed to 6 L nasal cannula and further changed to 3 L nasal cannula oxygen saturation is mid 90s. Chest x-ray continues to show right upper lobe pneumonia as well as left patchy perihilar infiltrate post BiPAP ABG seen improvement in PaO2 was noted pH however remains stable pCO2 remains stable, 7.4 on BiPAP. Chemistry reviewed CO2 is 20, anion gap is 17, blood glucose is 139 urine Legionella is negative, blood cultures no growth 68-year-old morbidly obese female seen evaluate examined patient presented emergency department with progressively increasing confusion and hallucination in addition she has been having shortness of breath as well, patient is 2 weeks of post CABG discharged in stable condition, patient is well-known to me has prior history of COPD, coronary artery disease status post CABG, hypertension hypertensive cardiovascular disease, morbid obesity and sleep disordered breathing and sleep apnea laboratory data reviewed ECG significant for left atrial enlargement low QRS complex with incomplete right bundle branch block. Chest x-ray significant for left lower lobe infiltrate CT scan no acute intrac ranial abnormality finding seen, recommended MRI chest CT revealed small left- sided basilar effusion, dependent atelectasis on the left side, infiltrate in the right upper lobe and right lower lobe noted likely suggesting pneumonia currently patient is on Rocephin Zithromax also on continuation of home medication including amiodarone, has been on DuoNeb as well. Currently patient is on 2 L Labs reviewed, white cell count is 8.2 hemoglobin hematocrit 8.5/27, arterial blood gas reveals 7 point 4/35/51 on room air PT/INR within normal limit, chemistry significant for hypokalemia with potassium of 3.6, BUN/creatinine is 16/1.25, Objective - Vital Signs Vital signs: Vital Signs Temp 97.3 F L 05/02/24 08:00 Pulse 78 05/02/24 12:30 Resp 18 05/02/24 14:00 BP 120/68 05/02/24 12:00 Pulse Ox 99 05/02/24 12:22 FiO2 40 05/02/24 03:40 Intake & Output 05/01/24 05/02/24 05/02/24 18:59 06:59 18:59 Intake Total 236 444 Output Total 500 150 Balance -264 -150 444 Weight 92.5 kg Intake: Oral 236 444 Output: Urine 500 150 Other: Voiding Method External Catheter External Catheter External Catheter # Voids 3 1 # Bowel Movements 1 1 - Exam - Constitutional General appearance: average body habitus, cooperative, disheveled, mild distress - EENT Eyes: EOMI, PERRLA Ears: bilateral: normal - Neck Neck: normal ROM Carotids: bilateral: upstroke normal Thyroid: bilateral: normal size - Respiratory Respiratory: right: CTA, left: diminished - Cardiovascular Rhythm: regular Heart sounds: normal: S1, S2 - Gastrointestinal General gastrointestinal: normal bowel sounds - Integumentary Integumentary: normal turgor - Neurologic Neurologic: CNII-XII intact - Musculoskeletal Musculoskeletal: gait normal, generalized weakness, strength equal bilaterally - Psychiatric Psychiatric: A&O x's 3, appropriate affect, intact judgment & insight - Labs CBC & Chem 7: 05/01/24 05:35 05/02/24 11:33 Labs: Abnormal Lab Results - Last 24 Hours (Table) 05/01/24 05/01/24 05/02/24 Range/Units 16:39 20:00 06:12 Potassium (3.5-5.1) mmol/L Chloride (98-107) mmol/L BUN (7-17) mg/dL Creatinine (0.52-1.04) mg/dL Glucose (74-99) mg/dL POC Glucose (mg/dL) 243 H 221 H 135 H (70-110) mg/dL 05/02/24 05/02/24 Range/Units 11:17 11:33 Potassium 3.4 L (3.5-5.1) mmol/L Chloride 108 H (98-107) mmol/L BUN 25 H (7-17) mg/dL Creatinine 1.22 H (0.52-1.04) mg/dL Glucose 170 H (74-99) mg/dL POC Glucose (mg/dL) 189 H (70-110) mg/dL Microbiology - Last 24 Hours (Table) 04/29/24 16:06 Blood Culture - Preliminary Blood Assessment and Plan Assessment: Acute on chronic hypoxic respiratory failure, related to pneumonia Healthcare associated pneumonia predominantly involving the right upper and lower lobe/aspiration pneumonia Altered mental status confusion with hallucination may very well be associated with Neurontin continue to hold Neurontin Left sided small pleural effusion Atrial fibrillation, on beta-arlene with amiodarone Acute kidney injury, Hypokalemia Left basilar compressive atelectasis Artery disease status post CABG Artery disease status post recent CABG Plan: Continue supplemental oxygen along with BiPAP 14 over 7 40% oxygen as needed and each night Patient may very well have Neurontin toxicity, would recommend to to hold Neurontin Antibiotics to be continued to cover aspiration pneumonia with IV Zosyn Replace potassium Continue to monitor urine output and renal functions closely repeat labs tomorrow Deep breathing exercises incentive spirometry No acute abnormality seen on MRI of the brain Time with Patient: Greater than 30
[2024-05-02 16:13] LABS: Glucose,Whole Blood 222 mg/dL (70-110)
[2024-05-02 20:02] LABS: Glucose,Whole Blood 298 mg/dL (70-110)
[2024-05-02] MEDS: METOCLOPRAMIDE 5 MG/ML 2 ML VIAL IVP PRN (20:31)
--- NOTE | 2024-05-03 00:19 | EEG ---
ELECTROENCEPHALOGRAM REPORT CLINICAL HISTORY: This is a 68-year-old woman with altered mental status. The video EEG is obtained to evaluate for seizure epileptiform activity. RELEVANT MEDICATION: The patient is not on any antiseizure medication. EEG TYPE: This is a routine 21 channel EEG with video using the 10/20 electrode placement system. DESCRIPTION: Wakefulness and drowsiness are obtained. The background consists of [id number] voltage of 9 hertz activity. There was no physiological stage 2 sleep architecture. There is no focal slowing. During the study, the patient is snoring and there is mild to moderate diffuse myogenic artifact. Interictal and ictal is none. ACTIVATION PROCEDURE: Photic stimulation did not evoke a posterior driving response. There is no abnormality during the photic stimulation. Hyperventilation is not performed. CLINICAL INTERPRETATION: This is a normal routine EEG. There is no focal slowing, epileptiform discharge, or seizure on the EEG. A normal routine EEG does not rule out underlying epilepsy. Clinical correlation is recommended. JOSÉ / MINOR: [id number] / MATEO
[2024-05-03 05:53] LABS: Glucose,Whole Blood 211 mg/dL (70-110)
--- NOTE | 2024-05-03 07:24 | PN ---
PROGRESS NOTE DATE OF SERVICE: 05/01/2024 OBJECTIVE: VITAL SIGNS: Temperature 97.3, pulse 79, respiratory rate 18, blood pressure 112/67, O2 saturation 97% on 3 L. CARDIOVASCULAR: S1, S2. LUNGS: Scattered wheeze and rhonchi. HEMATOLOGY: Negative Homans. ASSESSMENT: Chronic obstructive pulmonary disease, community-acquired pneumonia, acute on chronic respiratory failure. PLAN: Continue with IV antibiotics, breathing treatments, steroids. Her metabolic encephalopathy is greatly improved. She is more alert today. Continue broad-spectrum antibiotics for 24 to 48 hours. MMODL / IJN: [id number] /
[2024-05-03 07:40] LABS: African American GFR (CKD) 53 (>60 ml/min/1.73 sqM); Anion Gap 7 mmol/L; Blood Urea Nitrogen 18 mg/dL (7-17); Carbon Dioxide 27 mmol/L (22-30); Chloride 110 mmol/L (98-107); Glucose 186 mg/dL (74-99); Non-African American GFR(CKD) 46 (>60 ml/min/1.73 sqM); Potassium 3.1 mmol/L (3.5-5.1); Sodium 144 mmol/L (137-145)
--- NOTE | 2024-05-03 08:08 | XR ---
EXAMINATION TYPE: XR chest 1V portable DATE OF EXAM: 05/03/2024 CLINICAL HISTORY: Difficulty breathing progress study. TECHNIQUE: Single AP portable upright view of the chest is obtained. COMPARISON: Chest x-ray from one day earlier FINDINGS: Postop cardiac surgery changes are stable. Infiltrate right upper lobe appears to be less conspicuous on today's study. Atelectatic changes left lung base. IMPRESSION: Infiltrate right upper lobe appears to be less conspicuous on today's study. [facility], , 05/03/2024 8:06 AM
--- NOTE | 2024-05-03 08:25 | PN ---
PROGRESS NOTE SUBJECTIVE: She is feeling much better. She is in a recliner. Mental status is much better. She is no longer at the bedside. OBJECTIVE: VITAL SIGNS: O2 is 3 L currently, blood pressure is 145/77, heart rate in the 70s, O2 of 97% on 3 L. CARDIOVASCULAR: S1, S2. LUNGS: Scattered rhonchi and wheeze. HEMATOLOGY: Negative Homans. PSYCH: Fair mood and affect. She had metabolic encephalopathy, hallucinations secondary to hypoxemia, probable pneumonia, tracheobronchitis, and chronic hypoxemic respiratory failure, and chronic obstructive pulmonary disease. Mild heart failure with preserved ejection fraction. Pneumonia, community-acquired, coronary artery disease, paroxysmal atrial fibrillation, history of deep venous thrombosis, type 2 diabetes, hypertension, morbid obesity, dyslipidemia, anemia. Continue with aspirin, Plavix, amiodarone. She is on Bumex 1 mg daily, Farxiga, Zetia, metoprolol, amlodipine, pulmonary treatments, antibiotics, steroids. She is much better. Possibly discharge home in the next 24 to 48 hours. MMODL / IJN: [id number] /
--- NOTE | 2024-05-03 08:30 | PN ---
PROGRESS NOTE DATE OF SERVICE: 05/01/2024 SUBJECTIVE: She is more alert today. She is not totally comatose. She is talking, giving appropriate answers. PHYSICAL EXAMINATION: VITAL SIGNS: Temperature 97.3, blood pressure is 112/67, O2 is 97 on 3 L, temperature 99.3, pulse 75. CARDIOVASCULAR: S1, S2. LUNGS: Transmitted upper sounds. GI: Soft. HEMATOLOGY: Negative Homans. Please see further orders. MMODL / IJN: [id number] /
--- NOTE | 2024-05-03 08:37 | P.PN ---
Subjective Progress Note Date: 05/02/24 Principal diagnosis: Reason for follow-up is aspiration pneumonia Patient is a 68-year-old female with a past medical history significant for coronary artery disease COPD diabetes mellitus DVT hypertension hyperlipidemia [place] presenting to the hospital for evaluation of hallucination apparently the patient recently did have coronary bypass grafting on 04/12/2024, patient did have a CT of the chest with evidence of left basilar effusion/elevated concerning for possible nosocomial/aspiration pneumonia. On today's evaluation that is 05/02/2024, patient has been afebrile, patient is more awake and alert today and is breathing comfortably currently down to 3 to nasal cannula oxygen patient denies having any chest pain no worsening cough no nausea vomiting abdominal pain or diarrhea. Patient did not have any CBC done today creatinine is 1.22 blood cultures are pending sputum not collected Objective - Vital Signs Vital signs: Vital Signs Temp 97.3 F L 05/02/24 08:00 Pulse 80 05/02/24 15:26 Resp 18 05/02/24 15:26 BP 120/68 05/02/24 12:00 Pulse Ox 99 05/02/24 12:22 FiO2 40 05/02/24 03:40 Intake & Output 05/01/24 05/02/24 05/02/24 18:59 06:59 18:59 Intake Total 236 444 Output Total 500 150 Balance -264 -150 444 Weight 92.5 kg Intake: Oral 236 444 Output: Urine 500 150 Other: Voiding Method External Catheter External Catheter External Catheter # Voids 3 1 # Bowel Movements 1 1 - Exam GENERAL DESCRIPTION: An elderly female lying in bed in no distress RESPIRATORY SYSTEM: Unlabored breathing , coarse breath sounds bilaterally HEART: S1 S2 regular rate and rhythm , ABDOMEN: Soft , no tenderness EXTREMITIES: No edema feet - Labs CBC & Chem 7: 05/01/24 05:35 05/03/24 06:30 Labs: Abnormal Lab Results - Last 24 Hours (Table) 05/01/24 05/01/24 05/02/24 Range/Units 16:39 20:00 06:12 Potassium (3.5-5.1) mmol/L Chloride (98-107) mmol/L BUN (7-17) mg/dL Creatinine (0.52-1.04) mg/dL Glucose (74-99) mg/dL POC Glucose (mg/dL) 243 H 221 H 135 H (70-110) mg/dL 05/02/24 05/02/24 Range/Units 11:17 11:33 Potassium 3.4 L (3.5-5.1) mmol/L Chloride 108 H (98-107) mmol/L BUN 25 H (7-17) mg/dL Creatinine 1.22 H (0.52-1.04) mg/dL Glucose 170 H (74-99) mg/dL POC Glucose (mg/dL) 189 H (70-110) mg/dL Microbiology - Last 24 Hours (Table) 04/29/24 16:06 Blood Culture - Preliminary Blood Assessment and Plan (1) Nosocomial pneumonia Current Visit: Yes Status: Acute Code(s): J18.9 - PNEUMONIA, UNSPECIFIED ORGANISM; Y95 - NOSOCOMIAL CONDITION SNOMED Code(s): 421093290 Plan: 1patient presented to hospital with hallucination and this patient who recently did have coronary bypass grafting on April 12, 2024 now also having some cough with left lower lobe infiltrate concerning for pneumonia questionably gram- negative/aspiration as the patient has been recently in the hospital and need to cover for more resistant gram-negative pathogen than the community-acquired pathogen. 2patient did have worsening of her respiratory status with repeat chest x-ray showing right upper lobe infiltrate highly suspicious for aspiration pneumonia 3patient seem to have shown clinical improvement and is requiring less oxygen continue with Zosyn and monitor clinical course closely Dictation was produced using [employer] dictation software. please excuse any grammatical, word or spelling errors. Time with Patient: Less than 30
[2024-05-03] MEDS ORDERED: Potassium Replacement Protocol 1 EACH MISC MISCELLANE PRN (09:18)
[2024-05-03] MEDS: POTASSIUM CHLORIDE ER 20 MEQ TAB.ER PO SCH (09:29)
--- NOTE | 2024-05-03 09:30 | P.PN ---
Subjective Progress Note Date: 05/03/24 Principal diagnosis: Altered mental status, post coronary artery bypass grafting surgery April 12, 2024. Past medical history significant for coronary artery disease with left m ain disease, recent non-STEMI, subsequently underwent a two-vessel off-pump coronary artery bypass grafting surgery by Dr. Mojica on April 12, 2024, history of hypertension, history of hyperlipidemia, history of anaphylactic reaction to statins, insulin-dependent diabetes mellitus uncontrolled as an outpatient as her hemoglobin A1c was recently 8.5%, history of lower extremity DVT, asthma, COPD on home oxygen 2-3 L nasal cannula, chronic kidney disease, obstructive sleep apnea with home CPAP use, chronic left foot drop after back surgery, and chronic pain with chronic narcotic dependency. The patient was seen and examined in follow-up today May 03, 2024 at her bedside on the third floor cardiac stepdown unit. The patient is currently laying in bed, is awake, alert, oriented x 3 and is in no acute apparent distress. She reports she feels much improved today and would like to be discharged home today when okay with her primary care doctor. The patient's mentation seems back to baseline. Oxygen saturations are 95% on 3 L nasal cannula and she is achieving 1500 mL on her incentive spirometry with encouragement. Remote telemetry is showing normal sinus rhythm heart rate 81 bpm. She has been afebrile in the last 24 hours. Blood culture showed no growth after 72 hours. She remains on Zosyn for IV antibiotic coverage managed by infectious disease and she also continues on Solu-Medrol 40 mg IV every [address] Lisa. She reports she has been up ambulating in the hallway and tolerating well with standby assistance nursing and therapy staff. Chest x-ray and laboratory results were reviewed. Objective - Vital Signs Vital signs: Vital Signs Temp 98.8 F 05/03/24 08:10 Pulse 88 05/03/24 08:20 Resp 18 05/03/24 08:10 BP 136/80 05/03/24 08:10 Pulse Ox 99 05/03/24 08:10 FiO2 40 05/02/24 23:29 Intake & Output 05/02/24 05/03/24 05/03/24 18:59 06:59 18:59 Intake Total 684 540 120 Output Total 1 Balance 684 539 120 Weight 87.5 kg Intake: Oral 684 540 120 Output: Stool 1 Other: Voiding Method External Catheter External Catheter External Catheter # Voids 2 2 1 # Bowel Movements 1 2 2 - Exam CONSTITUTIONAL: Appears comfortable, cooperative, and in no apparent acute d istress. HEENT: Neck is supple, no JVD, no lymphadenopathy. RESPIRATORY: Lungs sounds essentially diminished throughout. Respirations are symmetrical and nonlabored. Currently on 3 L nasal cannula with oxygen saturations 95% and she is achieving 1500 mL on her incentive spirometry with encouragement. Strong cough. CARDIOVASCULAR: Regular rhythm and rate. S1 and S2 present, negative for S3, gallop or murmur. Sternum is stable. Palpable peripheral pulses bilaterally. No calf pain or tenderness noted. Heart hugger in place. Knee-high MARYANN hose and sequential compression devices in place to her bilateral lower extremities. GASTROINTESTINAL: Abdomen soft, nontender, nondistended. Active bowel sounds present 4 quadrants. No guarding or rigidity. GENITOURINARY: Pure wick external catheter draining clear, yellow urine. INTEGUMENTARY: Skin is warm and dry with no evidence of clubbing or cyanosis. Midline sternal incision clean dry and well approximated. Left arm radial artery harvest sites clean, dry and intact. No redness or drainage. NEUROLOGIC: Following commands. PERRLA. Chronic dropfoot, left foot. MUSKULOSKELETAL: Able to move all extremities, strength equal bilaterally, generalized weakness. PSYCHIATRIC: Alert and oriented to person place and time, appropriate affect. - Allied health notes Allied health notes reviewed: nursing - Labs CBC & Chem 7: 05/01/24 05:35 05/03/24 06:30 Labs: Abnormal Lab Results - Last 24 Hours (Table) 05/02/24 05/02/24 05/02/24 Range/Units 11:17 11:33 16:12 Potassium 3.4 L (3.5-5.1) mmol/L Chloride 108 H (98-107) mmol/L BUN 25 H (7-17) mg/dL Creatinine 1.22 H (0.52-1.04) mg/dL Glucose 170 H (74-99) mg/dL POC Glucose (mg/dL) 189 H 222 H (70-110) mg/dL 05/02/24 05/03/24 05/03/24 Range/Units 20:00 05:52 06:30 Potassium 3.1 L (3.5-5.1) mmol/L Chloride 110 H (98-107) mmol/L BUN 18 H (7-17) mg/dL Creatinine 1.21 H (0.52-1.04) mg/dL Glucose 186 H (74-99) mg/dL POC Glucose (mg/dL) 298 H 211 H (70-110) mg/dL Microbiology - Last 24 Hours (Table) 04/29/24 16:06 Blood Culture - Preliminary Blood - Imaging and Cardiology Chest x-ray: report reviewed, image reviewed Assessment and Plan Assessment: Altered mental status, possibly secondary to hypoxic encephalopathy, mentation has significantly improved Coronary artery disease with left main disease, status post two-vessel coronary artery bypass grafting surgery on April 12, 2024 History of non-STEMI History of recent paroxysmal atrial fibrillation, on amiodarone History of mild nonobstructive coronary artery disease in the LAD from heart cath in 2019 Hypertension Hyperlipidemia with anaphylactic reaction to statins, cholesterol 225, LDL 155 Insulin-dependent diabetes, uncontrolled hyperglycemia with recent hemoglobin A1c 8.5% History of left lower extremity DVT Asthma/COPD, patient is on home oxygen 2 to 3 L nasal cannula Lifelong non-smoker, preoperative FEV1 97% of predicted Obstructive sleep apnea with home CPAP use Chronic kidney disease Left foot drop after back surgery Chronic pain with chronic narcotic dependence Plan: Encourage use of incentive spirometry 10 times every hour while awake. Oxygen management per pulmonary medicine recommendations. Knee-high MARYANN hose and sequential compression devices for DVT prophylaxis. Antibiotic management per infectious disease recommendations. Continue to maximize medical management with aspirin, Zetia, Plavix and beta- arlene. Continue to hold statin as contraindicated due to the patient's history of anaphylactic reaction to statins. Medical management other comorbidities per internal medicine recommendations. Neurology following for altered mental status, mentation is significantly improved. Increase activity as tolerated. Out of bed for all meals. Physical and Occupational Therapy have been following. Shower daily. Pain control per current as needed orders, continue to hold [place]. Continue heart hugger in place, encourage use of heart hugger. Per the cardiothoracic surgery standpoint the patient can be discharged home when okay with primary care and other consultants. More recommendations to follow based on patient's clinical course. Time with Patient: Less than 30
[2024-05-03 11:15] LABS: Glucose,Whole Blood 213 mg/dL (70-110)
--- NOTE | 2024-05-03 14:11 | P.PN ---
Subjective Progress Note Date: 05/03/24 Principal diagnosis: Reason for follow-up is aspiration pneumonia Patient is a 68-year-old female with a past medical history significant for coronary artery disease COPD diabetes mellitus DVT hypertension hyperlipidemia NE presenting to the hospital for evaluation of hallucination apparently the patient recently did have coronary bypass grafting on 04/12/2024, patient did have a CT of the chest with evidence of left basilar effusion/elevated concerning for possible nosocomial/aspiration pneumonia. On today's evaluation that is 05/03/2024, Patient is afebrile this morning patient denies having any chest pain shortness of breath or any worsening cough, the patient is currently on 3 L current oxygen patient denies any abdominal pain no diarrhea no nausea no vomiting. Patient did have a creatinine 1.21 no CBC was done today Objective - Vital Signs Vital signs: Vital Signs Temp 98.2 F 05/03/24 10:47 Pulse 84 05/03/24 11:31 Resp 18 05/03/24 10:47 BP 155/76 05/03/24 10:47 Pulse Ox 99 05/03/24 10:47 FiO2 40 05/02/24 23:29 Intake & Output 05/02/24 05/03/24 05/03/24 18:59 06:59 18:59 Intake Total 684 540 120 Output Total 1 Balance 684 539 120 Weight 87.5 kg Intake: Oral 684 540 120 Output: Stool 1 Other: Voiding Method External Catheter External Catheter Bedside Commode # Voids 2 2 1 # Bowel Movements 1 2 2 - Exam GENERAL DESCRIPTION: An elderly female lying in bed in no distress RESPIRATORY SYSTEM: Unlabored breathing , coarse breath sounds bilaterally HEART: S1 S2 regular rate and rhythm , ABDOMEN: Soft , no tenderness EXTREMITIES: No edema feet - Labs CBC & Chem 7: 05/01/24 05:35 05/03/24 06:30 Labs: Abnormal Lab Results - Last 24 Hours (Table) 05/02/24 05/02/24 05/03/24 Range/Units 16:12 20:00 05:52 Potassium (3.5-5.1) mmol/L Chloride (98-107) mmol/L BUN (7-17) mg/dL Creatinine (0.52-1.04) mg/dL Glucose (74-99) mg/dL POC Glucose (mg/dL) 222 H 298 H 211 H (70-110) mg/dL 05/03/24 05/03/24 Range/Units 06:30 11:12 Potassium 3.1 L (3.5-5.1) mmol/L Chloride 110 H (98-107) mmol/L BUN 18 H (7-17) mg/dL Creatinine 1.21 H (0.52-1.04) mg/dL Glucose 186 H (74-99) mg/dL POC Glucose (mg/dL) 213 H (70-110) mg/dL Microbiology - Last 24 Hours (Table) 04/29/24 16:06 Blood Culture - Preliminary Blood Assessment and Plan (1) Nosocomial pneumonia Current Visit: Yes Status: Acute Code(s): J18.9 - PNEUMONIA, UNSPECIFIED ORGANISM; Y95 - NOSOCOMIAL CONDITION SNOMED Code(s): 879745701 Plan: 1patient presented to hospital with hallucination and this patient who recently did have coronary bypass grafting on April 12, 2024 now also having some cough with left lower lobe infiltrate concerning for pneumonia questionably gram- negative/aspiration as the patient has been recently in the hospital and need to cover for more resistant gram-negative pathogen than the community-acquired pathogen. 2patient did have worsening of her respiratory status with repeat chest x-ray showing right upper lobe infiltrate highly suspicious for aspiration pneumonia 3patient seem to have shown clinical improvement and is requiring less oxygen, we will continue with Zosyn and try to obtain a sputum to narrow down antibiotics Dictation was produced using [employer] dictation software. please excuse any gramma tical, word or spelling errors.
--- NOTE | 2024-05-03 14:44 | P.PN ---
Subjective Progress Note Date: 05/03/24 Principal diagnosis: Acute on chronic hypoxic respiratory failure Healthcare associated pneumonia predominantly involving the right upper and lower lobe/aspiration pneumonia Altered mental status confusion with hallucination may very well be associated with Neurontin versus acute stroke Left sided small pleural effusion Acute kidney injury, Hypokalemia Left basilar compressive atelectasis Coronary artery disease status post CABG May 03, 2024, patient seen eval examined during rounds more composed breathing more comfortably remains on 2 L oxygen at BiPAP at nighttime using 14/7 with 40% oxygen. Blood culture no growth seen, chest x-ray performed today reviewed compared with the prior x-ray improving infiltrates seen patient remains on IV Zosyn tolerating very well along with bronchodilator, patient is being monitored off of Neurontin May 02, 2024, patient seen eval examined during rounds patient on 2 L oxygen breathing comfortably more composed today hallucinations significantly improved mild confusion however is still there, patient remains on supplemental oxygen during the day as well as BiPAP machine 14 over 7 to 40% oxygen at nighttime tolerating well patient has been instructed to keep on using the BiPAP machine and oxygen, also discussed with nursing staff to continue to hold on actually discontinue Neurontin blood cultures no growth 48 hours. Patient remains on DuoNeb along with amiodarone antihypertensive agents also on IV Solu- Medrol every 8 hourly with Zosyn, plan to reduce the Solu-Medrol to every 12 May 01 2024, patient seen eval examined during rounds labs reviewed medications reviewed, patient transferred to monitored bed due to hallucination, currently she is afebrile, heart rate fairly within normal limit however patient is slightly tachypneic has been requiring BiPAP overnight now changed to 6 L nasal cannula and further changed to 3 L nasal cannula oxygen saturation is mid 90s. Chest x-ray continues to show right upper lobe pneumonia as well as left patchy perihilar infiltrate post BiPAP ABG seen improvement in PaO2 was noted pH however remains stable pCO2 remains stable, 7.4 on BiPAP. Chemistry reviewed CO2 is 20, anion gap is 17, blood glucose is 139 urine Legionella is negative, blood cultures no growth 68-year-old morbidly obese female seen evaluate examined patient presented e mergency department with progressively increasing confusion and hallucination in addition she has been having shortness of breath as well, patient is 2 weeks of post CABG discharged in stable condition, patient is well-known to me has prior history of COPD, coronary artery disease status post CABG, hypertension hypertensive cardiovascular disease, morbid obesity and sleep disordered breathing and sleep apnea laboratory data reviewed ECG significant for left atrial enlargement low QRS complex with incomplete right bundle branch block. Chest x-ray significant for left lower lobe infiltrate CT scan no acute intracranial abnormality finding seen, recommended MRI chest CT revealed small left-sided basilar effusion, dependent atelectasis on the left side, infiltrate in the right upper lobe and right lower lobe noted likely suggesting pneumonia currently patient is on Rocephin Zithromax also on continuation of home medication including amiodarone, has been on DuoNeb as well. Currently patient is on 2 L Labs reviewed, white cell count is 8.2 hemoglobin hematocrit 8.5/27, arterial blood gas reveals 7 point /51 on room air PT/INR within normal limit, chemistry significant for hypokalemia with potassium of 3.6, BUN/creatinine is 16/1.25, Objective - Vital Signs Vital signs: Vital Signs Temp 98.2 F 05/03/24 10:47 Pulse 84 05/03/24 11:31 Resp 18 05/03/24 10:47 BP 155/76 05/03/24 10:47 Pulse Ox 99 05/03/24 10:47 FiO2 40 05/02/24 23:29 Intake & Output 05/02/24 05/03/24 05/03/24 18:59 06:59 18:59 Intake Total 684 540 600 Output Total 1 Balance 684 539 600 Weight 87.5 kg Intake: Oral 684 540 600 Output: Stool 1 Other: Voiding Method External Catheter External Catheter Toilet # Voids 2 2 2 # Bowel Movements 1 2 2 - Exam - Constitutional General appearance: average body habitus, cooperative, disheveled, mild distress - EENT Eyes: EOMI, PERRLA Ears: bilateral: normal - Neck Neck: normal ROM Carotids: bilateral: upstroke normal Thyroid: bilateral: normal size - Respiratory Respiratory: right: CTA, left: diminished - Cardiovascular Rhythm: regular Heart sounds: normal: S1, S2 - Gastrointestinal General gastrointestinal: normal bowel sounds - Integumentary Integumentary: normal turgor - Neurologic Neurologic: CNII-XII intact - Musculoskeletal Musculoskeletal: gait normal, generalized weakness, strength equal bilaterally - Psychiatric Psychiatric: A&O x's 3, appropriate affect, intact judgment & insight - Labs CBC & Chem 7: 05/01/24 05:35 05/03/24 06:30 Labs: Abnormal Lab Results - Last 24 Hours (Table) 05/02/24 05/02/24 05/03/24 Range/Units 16:12 20:00 05:52 Potassium (3.5-5.1) mmol/L Chloride (98-107) mmol/L BUN (7-17) mg/dL Creatinine (0.52-1.04) mg/dL Glucose (74-99) mg/dL POC Glucose (mg/dL) 222 H 298 H 211 H (70-110) mg/dL 05/03/24 05/03/24 Range/Units 06:30 11:12 Potassium 3.1 L (3.5-5.1) mmol/L Chloride 110 H (98-107) mmol/L BUN 18 H (7-17) mg/dL Creatinine 1.21 H (0.52-1.04) mg/dL Glucose 186 H (74-99) mg/dL POC Glucose (mg/dL) 213 H (70-110) mg/dL Microbiology - Last 24 Hours (Table) 04/29/24 16:06 Blood Culture - Preliminary Blood Assessment and Plan Assessment: Acute on chronic hypoxic respiratory failure, related to pneumonia Healthcare associated pneumonia predominantly involving the right upper and lower lobe/aspiration pneumonia Altered mental status confusion with hallucination may very well be associated with Neurontin continue to hold Neurontin Left sided small pleural effusion Atrial fibrillation, on beta-arlene with amiodarone Acute kidney injury, Hypokalemia Left basilar compressive atelectasis Artery disease status post CABG Artery disease status post recent CABG Plan: Continue supplemental oxygen along with BiPAP 14 over 7 40% oxygen as needed and each night Patient may very well have Neurontin toxicity, would recommend to to hold Neurontin Antibiotics to be continued to cover aspiration pneumonia with IV Zosyn Replace potassium Continue to monitor urine output and renal functions closely repeat labs tomorrow Deep breathing exercises incentive spirometry No acute abnormality seen on MRI of the brain Time with Patient: Greater than 30
[2024-05-03 16:29] LABS: Glucose,Whole Blood 280 mg/dL (70-110)
[2024-05-03] MEDS ORDERED: DEXTROSE 50% SYRINGE 50 ML IVP PRN ×2 (17:21)
[2024-05-03 20:14] LABS: Glucose,Whole Blood 306 mg/dL (70-110)
[2024-05-03] MEDS: INSULIN ASPART (NovoLOG) 100 UNIT/ML VIAL SQ SCH (21:01)
[2024-05-04 06:08] LABS: Glucose,Whole Blood 190 mg/dL (70-110)
[2024-05-04 07:22] VITALS: RESP 19
--- NOTE | 2024-05-04 09:02 | P.PN ---
Subjective Progress Note Date: 05/04/24 Principal diagnosis: Altered mental status, post coronary artery bypass grafting surgery April 12, 2024. Past medical history significant for coronary artery disease with left m ain disease, recent non-STEMI, subsequently underwent a two-vessel off-pump coronary artery bypass grafting surgery by Dr. Mojica on April 12, 2024, history of hypertension, history of hyperlipidemia, history of anaphylactic reaction to statins, insulin-dependent diabetes mellitus uncontrolled as an outpatient as her hemoglobin A1c was recently 8.5%, history of lower extremity DVT, asthma, COPD on home oxygen 2-3 L nasal cannula, chronic kidney disease, obstructive sleep apnea with home CPAP use, chronic left foot drop after back surgery, and chronic pain with chronic narcotic dependency. The patient was seen and examined in follow-up today May 04, 2024 at her bedside on the third floor cardiac stepdown unit. She is currently sitting up in bed, is awake, alert, oriented x 3 and is in no acute apparent distress. The patient reports she is anxious to be discharged home. She denies any complaints of pain or shortness of breath at this time. She remains hemodynamically stable and is currently on no inotropic or pressor support. Blood culture results have been negative, she remains afebrile in the last 24 hours. She remains on Solu- Medrol 40 mg IV every 8 hours and Zosyn 3.375 g IV piggyback every 8 hours. Oxygen saturations are 95% on 3 L nasal cannula and she is achieving 1500 mL on her incentive spirometry with encouragement. Remote telemetry is showing normal sinus rhythm heart rate 80 bpm. Objective - Vital Signs Vital signs: Vital Signs Temp 98.1 F 05/04/24 07:19 Pulse 84 05/04/24 08:27 Resp 19 05/04/24 07:43 BP 179/75 05/04/24 07:19 Pulse Ox 95 05/04/24 08:14 FiO2 40 05/02/24 23:29 Intake & Output 05/03/24 05/04/24 05/04/24 18:59 06:59 18:59 Intake Total 840 Balance 840 Weight 87.4 kg Intake: Oral 840 Other: Voiding Method Toilet Toilet # Voids 2 2 1 # Bowel Movements 2 - Exam CONSTITUTIONAL: Appears comfortable, cooperative, and in no apparent acute distress. HEENT: Neck is supple, no JVD, no lymphadenopathy. RESPIRATORY: Lungs sounds essentially diminished throughout. Respirations are symmetrical and nonlabored. Currently on 3 L nasal cannula with oxygen sat urations 95% and she is achieving 1500 mL on her incentive spirometry with encouragement. Strong cough. CARDIOVASCULAR: Regular rhythm and rate. S1 and S2 present, negative for S3, gallop or murmur. Remote telemetry is showing normal sinus rhythm heart rate 80 bpm. Sternum is stable. Palpable peripheral pulses bilaterally. No calf pain or tenderness noted. Heart hugger in place. Knee-high MARYANN hose and sequential compression devices in place to her bilateral lower extremities. GASTROINTESTINAL: Abdomen soft, nontender, nondistended. Active bowel sounds present 4 quadrants. No guarding or rigidity. GENITOURINARY: Continues to void. INTEGUMENTARY: Skin is warm and dry with no evidence of clubbing or cyanosis. Midline sternal incision clean dry and well approximated. Left arm radial artery harvest sites clean, dry and intact. No redness or drainage. NEUROLOGIC: Following commands. PERRLA. Chronic dropfoot, left foot. MUSKULOSKELETAL: Able to move all extremities, strength equal bilaterally, generalized weakness. PSYCHIATRIC: Alert and oriented to person place and time, appropriate affect. - Labs CBC & Chem 7: 05/01/24 05:35 05/03/24 06:30 Labs: Abnormal Lab Results - Last 24 Hours (Table) 05/03/24 05/03/24 05/03/24 Range/Units 11:12 16:28 20:12 POC Glucose (mg/dL) 213 H 280 H 306 H (70-110) mg/dL 05/04/24 Range/Units 06:07 POC Glucose (mg/dL) 190 H (70-110) mg/dL Assessment and Plan Assessment: Altered mental status, possibly secondary to hypoxic encephalopathy, mentation has significantly improved, back to baseline Coronary artery disease with left main disease, status post two-vessel coronary artery bypass grafting surgery on April 12, 2024 History of non-STEMI History of recent paroxysmal atrial fibrillation, on amiodarone History of mild nonobstructive coronary artery disease in the LAD from heart cath in 2019 Hypertension Hyperlipidemia with anaphylactic reaction to statins, cholesterol 225, LDL 155 Insulin-dependent diabetes, uncontrolled hyperglycemia with recent hemoglobin A1c 8.5% History of left lower extremity DVT Asthma/COPD, patient is on home oxygen 2 to 3 L nasal cannula Lifelong non-smoker, preoperative FEV1 97% of predicted Obstructive sleep apnea with home CPAP use Chronic kidney disease Left foot drop after back surgery Chronic pain with chronic narcotic dependence Plan: Encourage use of incentive spirometry 10 times every hour while awake. Oxygen management per pulmonary medicine recommendations. Knee-high MARYANN hose and sequential compression devices for DVT prophylaxis. Antibiotic management per infectious disease recommendations. Continue to maximize medical management with aspirin, Zetia, Plavix and beta- arlene. Continue to hold statin as contraindicated due to the patient's history of anaphylactic reaction to statins. Medical management other comorbidities per internal medicine recommendations. Neurology following for altered mental status, mentation is significantly improved. Increase activity as tolerated. Out of bed for all meals. Physical and Occupational Therapy have been following. Shower daily. Pain control per current as needed orders, continue to hold [place]. Continue heart hugger in place, encourage use of heart hugger. Per the cardiothoracic surgery standpoint the patient can be discharged home when okay with primary care and other consultants. More recommendations to follow based on patient's clinical course. Time with Patient: Less than 30
--- NOTE | 2024-05-04 09:23 | P.PN ---
Subjective Progress Note Date: 05/04/24 Principal diagnosis: Acute on chronic hypoxic respiratory failure Healthcare associated pneumonia predominantly involving the right upper and lower lobe/aspiration pneumonia Altered mental status confusion with hallucination may very well be associated with Neurontin versus acute stroke Left sided small pleural effusion Acute kidney injury, Hypokalemia Left basilar compressive atelectasis Coronary artery disease status post CABG May 04, 2024, patient seen eval examined during rounds labs reviewed medications reviewed care plan discussed, patient remains on broad-spectrum antibiotics for aspiration pneumonia tolerating well patient afebrile, hemodynamic status stable, on 3 L oxygen saturation is 95%, patient has been using BiPAP each night and as needed during the day, x-ray not done today. Patient is composed breathing comfortably more oriented in time place person now Solu-Medrol can be lowered down at the time of discharge to oral Medrol Dosepak May 03, 2024, patient seen eval examined during rounds more composed breathing more comfortably remains on 2 L oxygen at BiPAP at nighttime using 14/7 with 40% oxygen. Blood culture no growth seen, chest x-ray performed today reviewed compared with the prior x-ray improving infiltrates seen patient remains on IV Zosyn tolerating very well along with bronchodilator, patient is being monitored off of Neurontin May 02, 2024, patient seen eval examined during rounds patient on 2 L oxygen breathing comfortably more composed today hallucinations significantly improved mild confusion however is still there, patient remains on supplemental oxygen during the day as well as BiPAP machine 14 over 7 to 40% oxygen at nighttime tolerating well patient has been instructed to keep on using the BiPAP machine and oxygen, also discussed with nursing staff to continue to hold on actually discontinue Neurontin blood cultures no growth 48 hours. Patient remains on DuoNeb along with amiodarone antihypertensive agents also on IV Solu- Medrol every 8 hourly with Zosyn, plan to reduce the Solu-Medrol to every 12 May 01 2024, patient seen eval examined during rounds labs reviewed medications reviewed, patient transferred to monitored bed due to hallucination, currently she is afebrile, heart rate fairly within normal limit however patient is slightly tachypneic has been requiring BiPAP overnight now changed to 6 L nasal cannula and further changed to 3 L nasal cannula oxygen saturation is mid 90s. Chest x-ray continues to show right upper lobe pneumonia as well as left patchy perihilar infiltrate post BiPAP ABG seen improvement in PaO2 was noted pH however remains stable pCO2 remains stable, 7.4 on BiPAP. Chemistry reviewed CO2 is 20, anion gap is 17, blood glucose is 139 urine Legionella is negative, blood cultures no growth 68-year-old morbidly obese female seen evaluate examined patient presented emergency department with progressively increasing confusion and hallucination in addition she has been having shortness of breath as well, patient is 2 weeks of post CABG discharged in stable condition, patient is well-known to me has prior history of COPD, coronary artery disease status post CABG, hypertension hypertensive cardiovascular disease, morbid obesity and sleep disordered breathing and sleep apnea laboratory data reviewed ECG significant for left at rial enlargement low QRS complex with incomplete right bundle branch block. Chest x-ray significant for left lower lobe infiltrate CT scan no acute intracranial abnormality finding seen, recommended MRI chest CT revealed small left-sided basilar effusion, dependent atelectasis on the left side, infiltrate in the right upper lobe and right lower lobe noted likely suggesting pneumonia currently patient is on Rocephin Zithromax also on continuation of home medication including amiodarone, has been on DuoNeb as well. Currently patient is on 2 L Labs reviewed, white cell count is 8.2 hemoglobin hematocrit 8.5/27, arterial blood gas reveals 7 point /51 on room air PT/INR within normal limit, chemistry significant for hypokalemia with potassium of 3.6, BUN/creatinine is 16/1.25, Objective - Vital Signs Vital signs: Vital Signs Temp 98.1 F 05/04/24 07:19 Pulse 84 05/04/24 08:27 Resp 19 05/04/24 07:43 BP 179/75 05/04/24 07:19 Pulse Ox 95 05/04/24 08:14 FiO2 40 05/02/24 23:29 Intake & Output 05/03/24 05/04/24 05/04/24 18:59 06:59 18:59 Intake Total 840 Balance 840 Weight 87.4 kg Intake: Oral 840 Other: Voiding Method Toilet Toilet # Voids 2 2 1 # Bowel Movements 2 - Exam - Constitutional General appearance: average body habitus, cooperative, disheveled, mild distress - EENT Eyes: EOMI, PERRLA Ears: bilateral: normal - Neck Neck: normal ROM Carotids: bilateral: upstroke normal Thyroid: bilateral: normal size - Respiratory Respiratory: right: CTA, left: diminished - Cardiovascular Rhythm: regular Heart sounds: normal: S1, S2 - Gastrointestinal General gastrointestinal: normal bowel sounds - Integumentary Integumentary: normal turgor - Neurologic Neurologic: CNII-XII intact - Musculoskeletal Musculoskeletal: gait normal, generalized weakness, strength equal bilaterally - Psychiatric Psychiatric: A&O x's 3, appropriate affect, intact judgment & insight - Labs CBC & Chem 7: 05/01/24 05:35 05/03/24 06:30 Labs: Abnormal Lab Results - Last 24 Hours (Table) 05/03/24 05/03/24 05/03/24 Range/Units 11:12 16:28 20:12 POC Glucose (mg/dL) 213 H 280 H 306 H (70-110) mg/dL 05/04/24 Range/Units 06:07 POC Glucose (mg/dL) 190 H (70-110) mg/dL Assessment and Plan Assessment: Acute on chronic hypoxic respiratory failure, related to pneumonia Healthcare associated pneumonia predominantly involving the right upper and lower lobe/aspiration pneumonia Altered mental status confusion with hallucination may very well be associated with Neurontin continue to hold Neurontin Left sided small pleural effusion Atrial fibrillation, on beta-arlene with amiodarone Acute kidney injury, Hypokalemia Left basilar compressive atelectasis Artery disease status post CABG Artery disease status post recent CABG Plan: Continue supplemental oxygen along with BiPAP 14 over 7 40% oxygen as needed and each night Patient may very well have Neurontin toxicity, would recommend to to hold Neurontin Antibiotics to be continued to cover aspiration pneumonia with IV Zosyn Replace potassium Continue to monitor urine output and renal functions closely repeat labs tomorrow Deep breathing exercises incentive spirometry No acute abnormality seen on MRI of the brain Time with Patient: Greater than 30
[2024-05-04 11:31] VITALS: BP 167/77; TEMP 97.5
[2024-05-04 11:42] LABS: Glucose,Whole Blood 162 mg/dL (70-110)
[2024-05-04 11:56] VITALS: PULSE 82
--- NOTE | 2024-05-04 12:35 | P.PN ---
Subjective Progress Note Date: 05/04/24 Principal diagnosis: Reason for follow-up is aspiration pneumonia Patient is a 68-year-old female with a past medical history significant for coronary artery disease COPD diabetes mellitus DVT hypertension hyperlipidemia IA presenting to the hospital for evaluation of hallucination apparently the patient recently did have coronary bypass grafting on 04/12/2024, patient did have a CT of the chest with evidence of left basilar effusion/elevated concerning for possible nosocomial/aspiration pneumonia. On today's evaluation that is 05/04/2024,the patient denies any fever or any chills, patient is breathing comfortably on 3 L nasal cannula oxygen the patient denies chest pain shortness of breath and cough is decreased in intensity no nausea vomiting abdominal pain or diarrhea patient is feeling better wants to go home admitting consulted for discharge. No new lab work obtained today blood culture has been negative. Objective - Vital Signs Vital signs: Vital Signs Temp 97.5 F L 05/04/24 11:27 Pulse 82 05/04/24 11:55 Resp 19 05/04/24 11:27 BP 167/77 05/04/24 11:27 Pulse Ox 96 05/04/24 11:27 FiO2 40 05/02/24 23:29 Intake & Output 05/03/24 05/04/24 05/04/24 18:59 06:59 18:59 Intake Total 840 118 Balance 840 118 Weight 87.4 kg Intake: Oral 840 118 Other: Voiding Method Toilet Toilet # Voids 2 2 1 # Bowel Movements 2 1 - Exam GENERAL DESCRIPTION: An elderly female lying in bed in no distress RESPIRATORY SYSTEM: Unlabored breathing , coarse breath sounds bilaterally HEART: S1 S2 regular rate and rhythm , ABDOMEN: Soft , no tenderness EXTREMITIES: No edema feet - Labs CBC & Chem 7: 05/01/24 05:35 05/03/24 06:30 Labs: Abnormal Lab Results - Last 24 Hours (Table) 05/03/24 05/03/24 05/04/24 Range/Units 16:28 20:12 06:07 POC Glucose (mg/dL) 280 H 306 H 190 H (70-110) mg/dL 05/04/24 Range/Units 11:40 POC Glucose (mg/dL) 162 H (70-110) mg/dL Assessment and Plan (1) Nosocomial pneumonia Current Visit: Yes Status: Acute Code(s): J18.9 - PNEUMONIA, UNSPECIFIED ORGANISM; Y95 - NOSOCOMIAL CONDITION SNOMED Code(s): 759739411 Plan: 1patient presented to hospital with hallucination and this patient who recently did have coronary bypass grafting on April 12, 2024 now also having some cough with left lower lobe infiltrate concerning for pneumonia questionably gram- negative/aspiration as the patient has been recently in the hospital and need to cover for more resistant gram-negative pathogen than the community-acquired pathogen. 2patient did have worsening of her respiratory status with repeat chest x-ray showing right upper lobe infiltrate highly suspicious for aspiration pneumonia 3patient seem to have shown clinical improvement and wants to go home ideally would have advised oral Avelox on discharge however the patient is on amiodarone and cannot use it we will send a prescription for oral Ceftin and monitor closely Dictation was produced using [employer] dictation software. please excuse any grammatical, word or spelling errors. Time with Patient: Less than 30
== END 2024-05-04 13:24 | disposition home health service (06) | DRG 177 ==
LOC: EC 12:12 → 6NMEDSUR 14:53 → OBSVTOIN 14:53 → 6NMEDSUR 20:30 → 3SCARD 05-01 00:15
PROVIDERS: ADMIT Family Medicine; ATTEND Family Medicine
PROC: 5A09357 Assistance with Respiratory Ventilation, Less than 24 Consecutive Hours, Continuous Positive Airway Pressure (ICD-10-PCS; principal; 2024-04-30)
DX: J15.69 Pneumonia due to other Gram-negative bacteria (principal); G93.41 Metabolic encephalopathy; I21.4 Non-ST elevation (NSTEMI) myocardial infarction; J96.21 Acute and chronic respiratory failure with hypoxia; I50.33 Acute on chronic diastolic (congestive) heart failure; G93.1 Anoxic brain damage, not elsewhere classified; I13.0 Hypertensive heart and chronic kidney disease with heart failure and stage 1 through stage 4 chronic kidney disease, or unspecified chronic kidney disease; N17.9 Acute kidney failure, unspecified; I27.20 Pulmonary hypertension, unspecified; D63.1 Anemia in chronic kidney disease; Z99.81 Dependence on supplemental oxygen; E11.22 Type 2 diabetes mellitus with diabetic chronic kidney disease; I48.0 Paroxysmal atrial fibrillation; E66.01 Morbid (severe) obesity due to excess calories; J69.0 Pneumonitis due to inhalation of food and vomit; E11.65 Type 2 diabetes mellitus with hyperglycemia; Z79.4 Long term (current) use of insulin; Z95.3 Presence of xenogenic heart valve; I08.1 Rheumatic disorders of both mitral and tricuspid valves; J44.89 Other specified chronic obstructive pulmonary disease; T42.6X5A Adverse effect of other antiepileptic and sedative-hypnotic drugs, initial encounter; E87.6 Hypokalemia; N18.2 Chronic kidney disease, stage 2 (mild); I25.10 Atherosclerotic heart disease of native coronary artery without angina pectoris; G47.33 Obstructive sleep apnea (adult) (pediatric); E78.5 Hyperlipidemia, unspecified; M21.372 Foot drop, left foot; G89.29 Other chronic pain; M54.9 Dorsalgia, unspecified; Y95 Nosocomial condition; Z96.651 Presence of right artificial knee joint; Z86.718 Personal history of other venous thrombosis and embolism; Z95.1 Presence of aortocoronary bypass graft; I25.2 Old myocardial infarction; Z79.82 Long term (current) use of aspirin; Z79.899 Other long term (current) drug therapy; Z79.891 Long term (current) use of opiate analgesic; Z79.84 Long term (current) use of oral hypoglycemic drugs; Z79.02 Long term (current) use of antithrombotics/antiplatelets; Z86.16 Personal history of COVID-19; Z87.11 Personal history of peptic ulcer disease; Z86.0100 Personal history of colon polyps, unspecified; Z87.892 Personal history of anaphylaxis
CPT/HCPCS: 36415; 36600; 51702; 70450; 70551; 71045; 71046; 71250; 80048; 80053; 80306; 80320; 81003; 82140; 82607; 82746; 82805; 83605; 83880; 85025; 85610; 85730; 87040; 87449; 93005; 93308; 94640; 94660; 94760; 95819; 96365; 96367; 99291

== ENCOUNTER 2024-12-17 16:43 | Emergency (ER) | payer MEDICARE, OTHER ==
--- NOTE | 2024-12-17 17:57 | CT ---
EXAMINATION TYPE: CT brain cspine wo con DATE OF EXAM: 12/17/2024 5:17 PM COMPARISON: None. CLINICAL INDICATION: Female, 69 years old with history of fall lateral left neck pain; fell 10 days a go, pain TECHNIQUE: Brain: Multiple axial CT images of the brain were obtained without IV contrast. Cspine: Axial CT images from the skull base to the inferior aspect of T2 we obtained without intraven ous contrast. Coronal and sagittal reformatted images were also reviewed. . CT DLP: 1554.7 mGycm, Automated exposure control for dose reduction was used. FINDINGS: Brain: Extra-axial spaces: No abnormal extra-axial fluid collections. Ventricular system: Within normal limits Cerebral parenchyma: No acute intraparenchymal hemorrhage or mass effect. The anderson-white junction is well differentiated. Cerebellum: Unremarkable. Mass effect: No evidence of midline shift. Intracranial vasculature: unremarkable Soft tissues: Normal. Calvarium/osseous structures: No depressed skull fracture. Paranasal sinuses and mastoid air cells: Clear. Visualized orbits: Orbital contents are intact. Cervical spine: Fracture: None. Osseous structures: Multilevel degenerative disc disease changes with endplate spurring and disc oste ophyte complex's. Vertebral alignment: Within normal limits. Spinal canal/Neural Foramina: No evidence of significant spinal canal narrowing. No evidence for sign ificant neural foraminal stenosis. Neck soft tissues: Prevertebral soft tissues are within normal limits. Other: The airway is patent. The lung apices are clear. IMPRESSION: 1. No acute intracranial process. 2. Nonspecific white matter changes, likely secondary to chronic small vessel ischemic disease. 3. No evidence of cervical spine fracture. 4. Mild multilevel degenerative disc disease. [facility], , 12/17/2024 5:54 PM
--- NOTE | 2024-12-17 17:58 | XR ---
EXAMINATION TYPE: XR clavicle LT DATE OF EXAM: 12/17/2024 5:33 PM COMPARISON: Plain film. CLINICAL INDICATION: Female, 69 years old with history of fall 10 days ago opain left clavicle and le ft shou; PHH, pain TECHNIQUE: XR clavicle LT examined in AP and cephalic tilt views . FINDINGS: No evidence of acute osseous pathology, joint dislocation or soft tissue swelling. IMPRESSION: Normal clavicle. [facility], , 12/17/2024 5:56 PM
--- NOTE | 2024-12-17 17:59 | XR ---
EXAMINATION TYPE: XR shoulder complete LT DATE OF EXAM: 12/17/2024 5:33 PM COMPARISON: None CLINICAL INDICATION: Female, 69 years old with history of fall 10 days ago opain left clavicle and le ft shou; PHH, pain TECHNIQUE: XR shoulder complete LT; examined in AP, internally rotated and scapular Y projections. FINDINGS: No evidence of acute osseous pathology, joint dislocation, or soft tissue swelling. The remaining po rtions of the visualized chest are unremarkable. Degeneration changes of the acromion, distal clavic le with osteophyte formation. There is osteophyte formation of the glenoid and humeral head. There is joint space narrowing of glenohumeral joint. IMPRESSION: 1. No acute osseous pathology. 2. Mild shoulder osteoarthrosis. [facility], , 12/17/2024 5:56 PM
--- NOTE | 2024-12-17 18:59 | ED ---
Fall HPI - General Chief Complaint: Extremity Injury, Upper Stated Complaint: Fall/Pain Time Seen by Provider: 12/17/24 18:43 Source: patient, RN notes reviewed, old records reviewed Mode of arrival: ambulatory Limitations: no limitations - History of Present Illness Initial Comments: This is a 69-year-old female to the ER status post fall fall with left shoulder pain left shoulder pain with movement no shortness of breath no chest pain, patient has no fevers or sick contacts no other complaints fall was about 10 days ago MD Complaint: fall -: days(s) (10) Fall From: standing When Fall Occurred: # days [employer] (10) Fall Witnessed: no Place Fall Occurred: home Loss of Consciousness: none Prolonged Down Time?: no Symptoms Prior to Fall: none Location: head Location - Extremities: Left: Shoulder, Arm, Elbow Severity: severe Severity scale (1-10): 7 Context: tripped/slipped Associated Symptoms: denies - Related Data Home Medications Medication Instructions Recorded Confirmed Montelukast [Singulair] 10 mg PO HS 10/17/20 04/29/24 Aspirin [Adult Low Dose Aspirin EC] 81 mg PO DAILY 04/21/22 04/29/24 HYDROcodone/APAP 5-325MG [[place] 1 tab PO TID 05/21/23 04/29/24 5-325] Azelastine HCl [Astelin Nasal 2 sprays NASAL BID 09/26/23 04/29/24 [place]] Pantoprazole [Protonix] 40 mg PO BID 09/26/23 04/29/24 Dicyclomine [Bentyl] 10 mg PO TID 04/03/24 04/29/24 Gabapentin 300 mg PO TID 04/03/24 04/29/24 INSULIN LISPRO (humaLOG) [humaLOG] See Protocol SQ AC-TID 04/03/24 04/29/24 Insulin Glargine,Hum.rec.anlog 30 units SQ HS 04/03/24 04/29/24 [Lantus Solostar Pen] Amiodarone [Cordarone] 200 mg PO DAILY 04/21/24 04/29/24 Sennosides-Docusate Sodium 2 tab PO HS PRN 04/21/24 04/29/24 [Senokot-S] Previous Rx's Medication Instructions Recorded Bumetanide [BUMEX] 1 mg PO DAILY 90 Days #90 tab 05/26/23 Budesonide [Pulmicort] 0.5 mg INHALATION RT-BID 30 Days 04/08/24 #60 ml Dapagliflozin Propanediol [Farxiga] 10 mg PO DAILY 30 Days #30 tab 04/08/24 Ipratropium-Albuterol Nebulize 3 ml INHALATION RT-QID 30 Days 04/08/24 [Duoneb 0.5 mg-3 mg/3 ml Soln] #120 each Loratadine [Claritin] 10 mg PO DAILY tab 04/08/24 Acetaminophen Tab [Tylenol] 650 mg PO Q4HR PRN tab 04/16/24 Clopidogrel [Plavix] 75 mg PO DAILY #30 tab 04/16/24 Ezetimibe [Zetia] 10 mg PO DAILY #30 tab 04/16/24 Metoprolol Tartrate [Lopressor] 25 mg PO BID #60 tab 04/16/24 amLODIPine [Norvasc] 2.5 mg PO DAILY@1200 #30 tab 04/16/24 cefuroxime axetiL [Ceftin] 500 mg PO BID #10 tab 05/04/24 Allergies Allergy/AdvReac Type Severity Reaction Status Date / Time Iodinated Contrast Media Allergy Severe Anaphylaxis Verified 10/31/24 12:00 [Iodinated Contrast Media - IV Dye] shellfish derived [Shellfish] Allergy Severe Anaphylaxis Verified 10/31/24 12:00 iodine Allergy Anaphylaxis Verified 10/31/24 12:00 Pjxojuj-WWU-FbL Reductase Allergy Anaphylaxis Verified 10/31/24 12:00 Inhibitor [Mojdvaa-Bzk-Blu Reductase Inhibitor] Review of Systems ROS Statement: Those systems with pertinent positive or pertinent negative responses have been documented in the HPI. ROS Other: All systems not noted in ROS Statement are negative. Past Medical History Past Medical History: Asthma, Coronary Artery Disease (CAD), Chest Pain / Angina, COPD, Diabetes Mellitus, Deep Vein Thrombosis (DVT), GERD/Reflux, Hyperlipidemia, Hypertension, Myocardial Infarction (PA), Musculoskeletal Disorder, Osteoarthritis (OA), Renal Disease, Sleep Apnea/CPAP/BIPAP Additional Past Medical History / Comment(s): PUD, colitis, benign colon polyps, DVT L leg, migraines, ANDREW - uses cpap. kidney stones, CKD stage II, vertigo, recurrent L ear infections/ruptured eardrum, TMJ, mild CAD, back prob - NT Lt arm, leg. Edema BLE. covid + 01/19/2021; left foot drop Last Myocardial Infarction Date:: 2009 History of Any Multi-Drug Resistant Organisms: None Reported Past Surgical History: Appendectomy, Cholecystectomy, Coronary Bypass/CABG, Ear Surgery, Heart Catheterization, Hysterectomy, Joint Replacement, Orthopedic Surgery, Tonsillectomy Additional Past Surgical History / Comment(s): R/L knee arthroscopies, L ear patch/graft, EGD, colonoscopy/polypectomy, throat abscess. Right knee replacement, back surgery, Past Anesthesia/Blood Transfusion Reactions: Postoperative Nausea & Vomiting (PONV) Past Psychological History: Anxiety Smoking Status: Never smoker Past Alcohol Use History: None Reported Past Drug Use History: None Reported - Past Family History Sister(s) History Unknown: Yes Family Medical History: Cancer Father History Unknown: Yes Family Medical History: Cancer Additional Family Medical History / Comment(s): Throat and brain cancer. Father was an alcoholic. Mother History Unknown: Yes Family Medical History: Liver Disease Additional Family Medical History / Comment(s): Mother is . She was an alcoholic. General Exam Limitations: no limitations General appearance: alert, in no apparent distress Head exam: Present: atraumatic, normocephalic, normal inspection Eye exam: Present: normal appearance, PERRL, EOMI. Absent: scleral icterus, conjunctival injection, periorbital swelling ENT exam: Present: normal exam, mucous membranes moist Neck exam: Present: normal inspection. Absent: tenderness, meningismus, lymphadenopathy Respiratory exam: Present: normal lung sounds bilaterally. Absent: respiratory distress, wheezes, rales, rhonchi, stridor Cardiovascular Exam: Present: regular rate, normal rhythm, normal heart sounds. Absent: systolic murmur, diastolic murmur, rubs, gallop, clicks GI/Abdominal exam: Present: soft, normal bowel sounds. Absent: distended, tenderness, guarding, rebound, rigid Extremities exam: Present: normal inspection, full ROM, normal capillary refill. Absent: tenderness, pedal edema, joint swelling, calf tenderness Back exam: Present: normal inspection Neurological exam: Present: alert, oriented X3, CN II-XII intact Psychiatric exam: Present: normal affect, normal mood Skin exam: Present: warm, dry, intact, normal color. Absent: rash Course Vital Signs 12/17/24 16:45 Temperature 97.8 F Pulse Rate 76 Respiratory 16 Rate Blood Pressure 144/72 O2 Sat by Pulse 96 Oximetry - Reevaluation(s) Reevaluation #1: 12/17/24 19:08 Medical records reviewed Reevaluation #2: 12/17/24 19:08 Patient symptoms improved Reevaluation #3: 12/17/24 19:08 Patient informed of results questions answered Reevaluation #4: Was pt. sent in by a medical professional or institution (, ROXANN, HEMOTHERAPIST, urgent care, hospital, or care home...) When possible be specific @ -no Did you speak to anyone other than the patient for history (EMS, parent, family, police, friend...)? What history was obtained from this source @ -no Did you review nursing and triage notes (agree or disagree)? Why? @ -agree Are old charts reviewed (outside hosp., previous admission, EMS record, old EKG, old radiological studies, urgent care reports/EKG's, care home records)? Report findings @ -yes Differential Diagnosis (chest pain, altered mental status, abdominal pain women, abdominal pain men, vaginal bleeding, weakness, fever, dyspnea, syncope, headac he, dizziness, GI bleed, back pain, seizure, CVA, palpatations, mental health, musculoskeletal)? @ -prior EKG interpreted by me (3pts min.). @ -yes X-rays interpreted by me (1pt min.). @ -yes negative for acute disease CT interpreted by me (1pt min.). @ -no U/S interpreted by me (1pt. min.). @ -no What testing was considered but not performed or refused? (CT, X-rays, U/S, labs)? Why? @ -none What meds were considered but not given or refused? Why? @ -none Did you discuss the management of the patient with other professionals (professionals i.e. ROXANN Lizarraga, HEMOTHERAPIST, lab, RT, psych nurse, social welfare administrator, contracting specialist, teacher, aviation safety officer, counseling case manager)? Give summary @ -no Was smoking cessation discussed for >3mins.? @ -no Was critical care preformed (if so, how long)? @ -no Were there social determinants of health that impacted care today? How? (Homelessness, low income, unemployed, alcoholism, drug addiction, transportation, low edu. Level, literacy, decrease access to med. care, [facility], rehab)? @ -none Was there de-escalation of care discussed even if they declined (Discuss DNR or withdrawal of care, Hospice)? DNR status @ -no What co-morbidities impacted this encounter? (DM, HTN, Smoking, COPD, CAD, Cancer, CVA, ARF, Chemo, Hep., AIDS, mental health diagnosis, sleep apnea, morbid obesity)? @ -none Was patient admitted / discharged? Hospital course, mention meds given and rout e, prescriptions, significant lab abnormalities, going to OR and other pertinent info. @ - Undiagnosed new problem with uncertain prognosis? @ -no Drug Therapy requiring intensive monitoring for toxicity (Heparin, Nitro, Insulin, Cardizem)? @ -no Were any procedures done? @ -no Diagnosis/symptom? @ - Acute, or Chronic, or Acute on Chronic? @ -Acute Uncomplicated (without systemic symptoms) or Complicated (systemic symptoms)? @ -Complicated Side effects of treatment? @ -no Exacerbation, Progression, or Severe Exacerbation? @ -exacerbation Poses a threat to life or bodily function? How? (Chest pain, USA, PA, pneumonia, PE, COPD, DKA, ARF, appy, cholecystitis, CVA, Diverticulitis, Homicidal, Suicidal, threat to staff... and all critical care pts) @ -yes Medical Decision Making - Medical Decision Making 69 female to the ER for evaluation left shoulder pain after fall. No significant traumatic injury noted here in the ER patient can be discharged home - Radiology Data Radiology results: report reviewed (CT brain C-spine x-ray clavicle shoulder negative for acute disease), image reviewed Disposition Clinical Impression: Fall, Contusion of left shoulder Disposition: HOME SELF-CARE Instructions (If sedation given, give patient instructions): Shoulder Sprain (ED), Shoulder Pain (ED) Is patient prescribed a controlled substance at d/c from ED?: No Referrals: Tavo Lisa MD [Primary Care Provider] - 1-2 days Time of Disposition: 18:55
[2024-12-17] MEDS: ACET/COD 300 MG/30 MG STARTER PACK 6 TAB BTL PO STA (19:21)
[2024-12-17 19:35] VITALS: BP 136/78; PULSE 66; RESP 17; TEMP 98
== END 2024-12-17 19:35 | disposition home or self-care (01) ==
LOC: EC 16:43
DX: S40.012A Contusion of left shoulder, initial encounter (principal); Z88.8 Allergy status to other drugs, medicaments and biological substances; Z91.041 Radiographic dye allergy status; Z91.013 Allergy to seafood; W18.30XA Fall on same level, unspecified, initial encounter
CPT/HCPCS: 70450; 72125; 99284